=== PATIENT | female | born 1950 | race Caucasian/White ===

== ENCOUNTER 2016-07-25 07:44 | Emergency (ER) | payer OTHER ==
[~2016-07-25] VITALS: Ht 165.1 cm; Wt 65.0 kg
[~2016-07-25 07:44] MED LIST: CLR10 PO; DULO60CA44 PO; GLC/500 PO; LSN5 PO; NORT25CA PO; POLY335019 PO; PSYL55.43 PO; SIMV40TA4 PO; VSC/10 PO; ZNTT/150 PO
[2016-07-25 07:53] VITALS: TEMP 37.3; O2SAT 98; Ht 165.1 cm; Wt 65.0 kg
[2016-07-25 08:50] LABS: HEMATOCRIT 35.3 % (37-47); MEAN CELL VOLUME 86.5 fL (80-100); MEAN CORPUSCULAR HEMOGLOBIN 29.9 pg (25-34); MEAN CORPUSCULAR HGB CONC 34.6 g/dl (32-36); MEAN PLATELET VOLUME 10.4 fL (7.4-10.4); PLATELET COUNT 171 K/uL (130-400); RED BLOOD COUNT 4.08 M/uL (4.2-5.4); WHITE BLOOD COUNT 6.76 K/uL (4.8-10.8)
--- NOTE | 2016-07-25 08:52 | DIAGNOSTIC IMAGING REPORT ---
CHEST ONE VIEW PORTABLE HISTORY: Atypical chest pain. COMPARISON: Chest 04/09/2016. FINDINGS: The lungs are clear. Cardiac silhouette is normal in size. No pleural effusions. No pneumothorax. IMPRESSION: No acute process. Electronically signed by: Doe Harper M.D. 07/25/2016 8:50 AM Dictated Date/Time: 07/25/2016 8:48 AM
[2016-07-25 08:58] LABS: CALCIUM 8.6 mg/dl (8.5-10.1); CREATININE 0.75 mg/dl (0.60-1.20); POTASSIUM 3.5 mmol/L (3.5-5.1)
[2016-07-25 09:02] LABS: ALB/GLOB RATIO 1.4 (0.9-2); CKMB/CK RATIO 2.1 (0-3.0)
[2016-07-25 09:13] LABS: BASO % 0.1 %; BASO ABS # 0.01 K/uL (0-0.2); COMPLETE YES; IG% 0.1 %; LYMPH % 5.3 %; LYMPH ABS # 0.36 K/uL (1.2-3.4); MONO % 2.8 %; NEUT % 91.7 %
[2016-07-25] MEDS ORDERED: ONDANSETRON INJ 2 MG/ML 2 ML VIAL IV STA (09:51)
[2016-07-25] MEDS ORDERED: MoRPHine SULFATE 4 MG/ML 1 ML CARP\\VIAL IV STA (09:51)
[2016-07-25 10:19] VITALS: BP 119/64; PULSE 85
--- NOTE | 2016-07-25 10:24 | EMERGENCY ROOM VISIT NOTE ---
History First contact with patient: 08:00 Chief Complaint: CHEST PAIN Stated Complaint: CHEST PAIN Nursing Triage Summary: PT HERE VIA ALS FROM HOME WITH CHEST AND BACK PAINS AND HEADACHE SINCE LAST PM. PT STATES DID NOT FEEL WELL LAST PM. NO CARDIAC HX DENIES SOB History of Present Illness The patient is a 65 year old female who presents to the Emergency Department via EMS for evaluation of her headache and transient episode of chest pain. The patient reports 7 history of migraines headaches. Yesterday afternoon she developed a frontal headache with associated lightheadedness. She reports that this is typical of her previous headaches. She had a transient episode of pain across her chest which lasted for a few seconds. She is had no return of symptoms to this point. Patient primarily complains of symptoms of headache which prompted her to contact EMS. The patient rates her current discomfort as an 8/10. She currently denies any blurry vision, double vision, slurred speech , facial droop, unilateral weakness/numbness, chest pain, palpitations, shortness of breath, pleuritic pain, nausea, vomiting, or abdominal pain. Review of Systems A complete 10-point Review of Systems was discussed with the patient, with pertinent positives and negatives listed in the History of Present Illness. All remaining Review of Systems questions can be considered negative unless otherwise specified. Past Medical/Surgical History Medical Problems: (1) Anxiety (2) Blurred vision (3) bunion surgery (4) DM2 (diabetes mellitus, type 2) (5) HLD (hyperlipidemia) (6) Hypothyroidism (7) Schizophrenia (8) Somatization disorder (9) Urinary incontinence Surgical Problems: (1) H/O brain surgery (2) H/O cystoscopy (3) H/O foot surgery (4) History of cataract surgery Family History Cancer Diabetes mellitus Heart disease Seizures Social History Smoking Status: Never Smoker Alcohol Use: none Drug Use: none Marital Status: single Housing Status: lives alone Occupation Status: retired Current/Historical Medications Scheduled Clozapine (Clozapine), 300 MG PO HS Clozapine (Clozapine), 50 MG PO QAM Duloxetine Hcl (Cymbalta), 60 MG PO DAILY Fluticasone Propionate (Nasal) (Flonase Allergy Relief), 2 SPRAYS DONI DAILY Levothyroxine Sodium (Levothyroxine Sodium), 50 MCG PO QAM Lisinopril (Lisinopril), 1 TAB PO DAILY Loratadine (Claritin), 10 MG PO HS Metformin Hcl (Glucophage), 500 MG PO BIDM Nortriptyline (Pamelor), 25 MG PO HS Omeprazole (Prilosec), 40 MG PO HS Ranitidine (Zantac), 150 MG PO BID Simvastatin (Zocor), 40 MG PO HS Solifenacin Succinate (Vesicare), 1 TAB PO DAILY Scheduled PRN Cyclobenzaprine Hcl (Flexeril), 10 MG PO BID PRN for Muscle Spasm Lorazepam (Ativan), 0.5 MG PO DAILY PRN for Anxiety Meclizine Hcl (Meclizine Hcl), 25 MG PO TID PRN for Dizziness or Vertigo Polyethylene Glycol 3350 (Miralax), 17 GM PO DAILY PRN for Constipation Promethazine Hcl (Phenergan), 12.5 MG PO Q8 PRN for Nausea Sennosides-Docusate Sodium (Senna Plus), 1-2 TABS PO DAILY PRN for Constipation Sumatriptan Succinate (Imitrex), 100 MG PO UD PRN for Headache Miscellaneous Medications Psyllium (Psyldex) Allergies Coded Allergies: Cephalosporins (Verified Allergy, Unknown, 07/25/16) POLLEN (Unverified Allergy, Unknown, seasonal allergy , 07/25/16) Physical Exam Vital Signs Date Time Temp Pulse Resp B/P Pulse Ox O2 Delivery O2 Flow Rate FiO2 07/25/16 10:19 85 16 119/64 07/25/16 09:01 90 16 131/71 07/25/16 07:53 37.3 84 16 110/67 98 Room Air 07/25/16 07:50 84 Pain Rating (0-10): 8 Physical Exam VITAL SIGNS - Vital signs and nursing notes were reviewed. GENERAL - 65-year-old female appearing her stated age who is in no acute distress. Communicates well with provider and answers questions appropriately. HEAD - Normocephalic, Atraumatic. No Kumar's Sign or Raccoon's Eyes. No depressed skull fractures palpable. EYES - PERRL with EOMI bilaterally. Sclera anicteric. Palpebral conjunctiva pink and moist with no injection noted. EARS - No deformities of external structures noted on gross examination bilaterally. No pain elicited with palpation of the tragus bilaterally. External auditory canals without discharge or otorrhea. Tympanic membranes pearly roman without retraction or bulging. NOSE - Midline and without cyanosis. No epistaxis or purulent drainage noted. Septum midline without deviation or septal hematoma noted. MOUTH/OROPHARYNX - Without perioral cyanosis. Buccal mucosa pink and moist and without leukoplakia. Tongue midline with equal elevation of palate bilaterally. No tonsillar hypertrophy, erythema, or exudates noted. NECK - Neck with FROM. Supple to palpation. No lymphadenopathy noted. No nuchal rigidity. LUNGS - Chest wall symmetric without accessory muscle use, intercostals retractions, or central cyanosis. Normal vesicular breath sounds CTA B/L. No wheezes, rales, or rhonchi appreciated. CARDIAC - RRR with S1/S2. No murmur, rubs, or gallops appreciated. ABDOMEN - Abdominal contour flat and without pulsations or visible masses. BS normoactive all four quadrants. No tenderness, palpable masses, hepatosplenomegaly, or ascites noted. EXTREMITIES - No pretibial edema present. +3/5 radial and dorsalis pedis pulses palpated throughout. FROM with no tremors, fasciculations, or clonus noted on PROM throughout. +5/5 strength noted in UE/LE bilaterally. NEUROLOGIC - Cranial nerves II through XII grossly intact. Sensory intact to light touch throughout. Patellar reflexes +2/4. Patient able to perform rapid alternating movements appropriately. Negative Pronator Drift. PSYCH - A&Ox3 and cooperates fully with examiner. Pt is very pleasant and interacts well with examiner. Medical Decision & Procedures ER Provider Diagnostic Interpretation: Radiological imaging and reports were reviewed by myself. Radiologist's Interpretation as follows: CHEST ONE VIEW PORTABLE HISTORY: Atypical chest pain. COMPARISON: Chest 04/09/2016. FINDINGS: The lungs are clear. Cardiac silhouette is normal in size. No pleural effusions. No pneumothorax. IMPRESSION: No acute process. Laboratory Results 07/25/16 07:50 Red Blood Count 4.08, Mean Corpuscular Volume 86.5, Mean Corpuscular Hemoglobin 29.9, Mean Corpuscular Hemoglobin Concent 34.6, Mean Platelet Volume 10.4, Neutrophils (%) (Auto) 91.7, Lymphocytes (%) (Auto) 5.3, Monocytes (%) (Auto) 2.8, Eosinophils (%) (Auto) 0.0, Basophils (%) (Auto) 0.1, Neutrophils # (Auto) 6.19, Lymphocytes # (Auto) 0.36, Monocytes # (Auto) 0.19, Eosinophils # (Auto) 0.00, Basophils # (Auto) 0.01 07/25/16 07:50 Test 07/25/16 07:50 07/25/16 09:58 White Blood Count 6.76 K/uL (4.8-10.8) Red Blood Count 4.08 M/uL (4.2-5.4) Hemoglobin 12.2 g/dL (12.0-16.0) Hematocrit 35.3 % (37-47) Mean Corpuscular Volume 86.5 fL (80-100) Mean Corpuscular Hemoglobin 29.9 pg (25-34) Mean Corpuscular Hemoglobin Concent 34.6 g/dl (32-36) Platelet Count 171 K/uL (130-400) Mean Platelet Volume 10.4 fL (7.4-10.4) Neutrophils (%) (Auto) 91.7 % Lymphocytes (%) (Auto) 5.3 % Monocytes (%) (Auto) 2.8 % Eosinophils (%) (Auto) 0.0 % Basophils (%) (Auto) 0.1 % Neutrophils # (Auto) 6.19 K/uL (1.4-6.5) Lymphocytes # (Auto) 0.36 K/uL (1.2-3.4) Monocytes # (Auto) 0.19 K/uL (0.11-0.59) Eosinophils # (Auto) 0.00 K/uL (0-0.5) Basophils # (Auto) 0.01 K/uL (0-0.2) RDW Standard Deviation 44.4 fL (36.4-46.3) RDW Coefficient of Variation 14.1 % (11.5-14.5) Immature Granulocyte % (Auto) 0.1 % Immature Granulocyte # (Auto) 0.01 K/uL (0.00-0.02) Anion Gap 15.0 mmol/L (3-11) Est Creatinine Clear Calc Drug Dose 66.4 ml/min Estimated GFR () 96.3 Estimated GFR (Non- 83.1 BUN/Creatinine Ratio 34.0 (10-20) Calcium Level 8.6 mg/dl (8.5-10.1) Total Bilirubin 0.5 mg/dl (0.2-1) Aspartate Amino Transf (AST/SGOT) 14 U/L (15-37) Alanine Aminotransferase (ALT/SGPT) 19 U/L (12-78) Alkaline Phosphatase 67 U/L (45-117) Total Creatine Kinase 56 U/L (26-192) Creatine Kinase MB 1.2 ng/ml (0.5-3.6) Creatine Kinase MB Ratio 2.1 (0-3.0) Total Protein 6.1 gm/dl (6.4-8.2) Albumin 3.6 gm/dl (3.4-5.0) Globulin 2.5 gm/dl (2.5-4.0) Albumin/Globulin Ratio 1.4 (0.9-2) Bedside Troponin I 0.000 ng/ml (0-0.045) Medications Administered Medications (Trade) Dose Ordered Sig/Artemio Route Start Time Stop Time Status Last Admin Dose Admin Morphine Sulfate (MoRPHine SULFATE INJ) 4 mg NOW STAT IV 07/25/16 09:51 07/25/16 09:53 DC 07/25/16 10:26 4 MG Ondansetron HCl (Zofran Inj) 4 mg NOW STAT IV 07/25/16 09:51 07/25/16 09:53 DC 07/25/16 10:26 4 MG Procedure Patient was placed on the air sampling and monitoring and monitored throughout the entire extent of their stay. In addition, the patient's pulse oximetry was monitored throughout the entire stay. Any abnormalities or aberrancies were addressed appropriately. ECG Indication: chest pain Rate (beats per minute): 83 Rhythm: normal sinus Findings: nonspecific-ST abn (Anterolateral) Change: no significant change (from 04/09/2016.) ED Course Patient was seen and evaluated by myself. Previous emergency department visit notes were reviewed. Labs were drawn, saline lock in place. EKG and chest x- ray were obtained. Laboratory results demonstrate no acute leukocytosis, worrisome anemia, or bandemia. The patient has no significant electrolyte abnormalities. Cardiac enzymes are negative. Troponin was negative. Patient was reevaluated and continues to complain of headache. She denies any chest pain and has had no chest pain for greater than 24 hours at this point. She does admit to having a history of chest pain similarly in the past and has been evaluated. Patient was treated with 4 mg morphine and formerly grams Zofran intravenously. Second troponin was obtained and found to be unremarkable. Laboratory results and imaging studies were discussed with the patient who acknowledges understanding. She was encouraged to continue to follow with her primary care provider from today's visit. She was educated on worrisome symptoms for return visit to the emergency department. Patient discharged home afebrile and in good condition. Medical Decision Given the patient's presentation and stated complete, I did elect to perform the above-mentioned workup. I'm very familiar with this patient for multiple previous visits in the past. Patient is nontoxic-appearing. She does complain a transient episode of pain in her chest which has completely resolved. Her pain is not exertional. Her main complaint is headache at this point. X-ray of her chest, EKG, and cardiac enzymes 2 are negative. Patient responded well to intravenous morphine and Zofran for her ongoing headache issues. The patient with follow-up with her primary care provider in specialists from today' s visit. She will return for any changing or worsening symptoms. Patient discharged home in good condition. In the evaluation and treatment of this patient, the following differential diagnoses were considered: Migraine Headache, Intracranial Hemorrhage, Subdural Hematoma, Subarachnoid Hemorrhage, Cerebral Aneurysm, Temporal/Giant Cell Arteritis, Tension Headache, Meningitis, Encephalitis, or Hydrocephalus, WI, ASC , Dysrhythmia, Angina, Mediastinitis, GERD, Esophagitis, PE, Pneumonia, Bronchitis, Costochondritis, Rib Fracture, Zoster. Impression Primary Impression: Headache Additional Impression: Chest pain Departure Information Dispostion Home / Self-Care Condition GOOD Referrals Raymond Vann, D.O. (PCP) Patient Instructions My [facility] Additional Instructions You've been seen in the emergency department today for your headache and transient chest pain. Follow-up with your primary care from today's visit. Return for any changing or worsening symptoms. Problem Qualifiers Primary Impression: Headache Headache type: unspecified Headache chronicity pattern: unspecified pattern Intractability: not intractable Qualified Codes: R51 - Headache Additional Impression: Chest pain Chest pain type: unspecified Qualified Codes: R07.9 - Chest pain, unspecified
[2016-10-09] MEDS ORDERED: SUMA100T16 PO (16:26)
[2016-12-16] MEDS ORDERED: FLNIN/ NAE (16:34)
[2016-12-16] MEDS ORDERED: ACET-1256 PO (16:37)
[2016-12-18] MEDS ORDERED: [UNRECOGNIZED DRUG - CODE] PO (08:03)
[2016-12-18] MEDS ORDERED: LORA-741 PO (14:47)
[2016-12-18] MEDS ORDERED: MXL10 PO (18:38)
== END 2016-07-25 10:50 | disposition home or self-care (01) ==
LOC: EDBD 07:44 → C.EDA 07:46
DX: R51 Headache (principal); R07.9 Chest pain, unspecified; F41.9 Anxiety disorder, unspecified; E11.9 Type 2 diabetes mellitus without complications; E78.5 Hyperlipidemia, unspecified; E03.9 Hypothyroidism, unspecified; F20.9 Schizophrenia, unspecified; Z82.49 Family history of ischemic heart disease and other diseases of the circulatory system

== ENCOUNTER 2016-08-05 15:37 | Emergency (ER) | payer OTHER ==
[~2016-08-05] VITALS: Ht 160 cm; Wt 65.0 kg
[~2016-08-05 15:37] MED LIST changes: -PSYL55.43 PO
[2016-08-05 15:40] VITALS: TEMP 36.9; O2SAT 100; Ht 160 cm; Wt 65.0 kg
[2016-08-05] MEDS ORDERED: SODIUM CHLORIDE 0.9% 1000ML 1,000 ML IV STA (15:46)
[2016-08-05] MEDS ORDERED: MoRPHine SULFATE 4 MG/ML 1 ML CARP\\VIAL IV STA ×2 (15:55→17:53)
[2016-08-05 15:59] LABS: HEMATOCRIT 33.4 % (37-47); MEAN CELL VOLUME 88.4 fL (80-100); MEAN CORPUSCULAR HEMOGLOBIN 28.8 pg (25-34); MEAN CORPUSCULAR HGB CONC 32.6 g/dl (32-36); MEAN PLATELET VOLUME 10.4 fL (7.4-10.4); PLATELET COUNT 208 K/uL (130-400); RED BLOOD COUNT 3.78 M/uL (4.2-5.4); WHITE BLOOD COUNT 5.49 K/uL (4.8-10.8)
[2016-08-05] MEDS ORDERED: ONDANSETRON 4MG OD TAB PO ONE (16:00)
--- NOTE | 2016-08-05 16:00 | EMERGENCY ROOM VISIT NOTE ---
History First contact with patient: 15:41 Chief Complaint: CHEST PAIN Stated Complaint: CHEST PAIN Nursing Triage Summary: Pt called EMS because she took Flexeril earlier and then Ativan an hour later. Pt has history of anxiety and took Ativan when she became anxious about cooking. Pt was nervous about taking both medications. Pt developed substernal chest pain for EMS. Denies any other symptoms. Pt now c/o back and shoulder pain bilaterally History of Present Illness The patient is a 65 year old female who presents to the Emergency Room with complaints of chest pain and anxiety. The patient states that she was cooking dinner and felt a tightness in the upper back and the chest. She states she is prescribed Flexeril for this. She took a Flexeril. She began to make dinner and felt very anxious. She then took an Ativan. She stated that she became increasingly anxious as she thought about taking the medications so close together. The patient contacted EMS regarding the anxiety and when they arrived she developed retrosternal chest pain. The patient was given 324 mg aspirin and one nitroglycerin spray with no improvement in her chest pain. She does complain of a headache now. She denies any fever or chills. She denies any earache, sore throat or cough. She takes she has occasional trouble breathing and pain with deep inspiration. She denies any abdominal pain, nausea or vomiting. She denies any extremity swelling or pain. She denies any history of coronary artery disease. She has never had a stress test. Review of Systems A 10 system review of systems was completed with positives and pertinent negatives listed in the HPI. Past Medical/Surgical History Medical Problems: (1) Anxiety (2) Blurred vision (3) bunion surgery (4) DM2 (diabetes mellitus, type 2) (5) HLD (hyperlipidemia) (6) Hypothyroidism (7) Schizophrenia (8) Somatization disorder (9) Urinary incontinence Surgical Problems: (1) H/O brain surgery (2) H/O cystoscopy (3) H/O foot surgery (4) History of cataract surgery Family History Cancer Diabetes mellitus Heart disease Seizures Social History Smoking Status: Never Smoker Alcohol Use: none Drug Use: none Marital Status: single Housing Status: lives alone Occupation Status: retired Current/Historical Medications Scheduled Clozapine (Clozapine), 300 MG PO HS Clozapine (Clozapine), 50 MG PO QAM Duloxetine Hcl (Cymbalta), 60 MG PO DAILY Fluticasone Propionate (Nasal) (Flonase Allergy Relief), 2 SPRAYS DONI DAILY Levothyroxine Sodium (Levothyroxine Sodium), 50 MCG PO QAM Lisinopril (Lisinopril), 1 TAB PO DAILY Loratadine (Claritin), 10 MG PO HS Metformin Hcl (Glucophage), 500 MG PO BIDM Nortriptyline (Pamelor), 25 MG PO HS Omeprazole (Prilosec), 40 MG PO HS Ranitidine (Zantac), 150 MG PO BID Simvastatin (Zocor), 40 MG PO HS Solifenacin Succinate (Vesicare), 1 TAB PO DAILY Scheduled PRN Acetaminophen Tab (Tylenol), 325 MG PO BID PRN for Pain Cyclobenzaprine Hcl (Flexeril), 10 MG PO BID PRN for Muscle Spasm Lorazepam (Ativan), 0.5 MG PO DAILY PRN for Anxiety Meclizine Hcl (Meclizine Hcl), 25 MG PO TID PRN for Dizziness or Vertigo Polyethylene Glycol 3350 (Miralax), 17 GM PO DAILY PRN for Constipation Promethazine Hcl (Phenergan), 12.5 MG PO Q8 PRN for Nausea Sennosides-Docusate Sodium (Senna Plus), 1-2 TABS PO DAILY PRN for Constipation Sumatriptan Succinate (Imitrex), 100 MG PO UD PRN for Headache Miscellaneous Medications Psyllium (Psyldex) Allergies Coded Allergies: Cephalosporins (Verified Allergy, Unknown, 08/05/16) POLLEN (Unverified Allergy, Unknown, seasonal allergy , 08/05/16) Physical Exam Vital Signs Date Time Temp Pulse Resp B/P Pulse Ox O2 Delivery O2 Flow Rate FiO2 08/05/16 18:17 72 18 140/85 99 Room Air 08/05/16 17:22 75 16 150/81 100 Room Air 08/05/16 15:44 84 08/05/16 15:40 100 Room Air 08/05/16 15:40 100 Room Air 08/05/16 15:40 36.9 83 16 137/69 100 Room Air Physical Exam VITALS: Vitals are noted on the nurse's note and reviewed by myself. Vital signs stable. The patient is afebrile. She is not tachycardic or tachypneic. Her oxygen saturation is 100% on room air. GENERAL: This is a 65-year-old female, in no acute distress, nondiaphoretic, well-developed well-nourished. SKIN: The skin was without rashes, erythema, edema, or bruising. There is no tenting of the skin. Capillary reflex less than 2 seconds. HEAD: Normocephalic atraumatic. EARS: External ears are normal in appearance. EYES: Pupils equal round and reactive to light and accommodation. Conjunctivae without injection, sclerae without icterus. Extraocular movements intact. NOSE: Patent, turbinates without inflammation or discharge. MOUTH: Mucous membranes moist. Tonsils are not enlarged. Pharynx without erythema or exudate. Uvula midline. Airway patent. Tongue does not deviate. NECK: Supple without nuchal rigidity. Cervical spine is tender. No JVD. HEART: Regular rate and rhythm without murmurs gallops or rubs. LUNGS: Clear to auscultation bilaterally without wheezes, rales or rhonchi. No retractions or accessory muscle use. ABDOMEN: Positive bowel sounds x 4. Soft, nontender, without masses or organomegaly. Hassan sign negative. MUSCULOSKELETAL: No muscle atrophy, erythema, or edema noted. Full range of motion in all extremities. Strength 5/5 throughout. NEURO: Patient was alert and oriented to person place and time. o focal neurological deficits. Medical Decision & Procedures ER Provider Diagnostic Interpretation: CHEST ONE VIEW PORTABLE CLINICAL HISTORY: chest pain dyspnea COMPARISON STUDY: 07/25/2016 FINDINGS: The bones soft tissues and hemidiaphragms are normal. The cardiomediastinal silhouette is normal. The lungs are clear. The pulmonary vasculature is normal. IMPRESSION: Negative chest. Laboratory Results 08/05/16 15:28 Red Blood Count 3.78, Mean Corpuscular Volume 88.4, Mean Corpuscular Hemoglobin 28.8, Mean Corpuscular Hemoglobin Concent 32.6, Mean Platelet Volume 10.4, Neutrophils (%) (Auto) 62.0, Lymphocytes (%) (Auto) 28.8, Monocytes (%) (Auto) 8.6, Eosinophils (%) (Auto) 0.0, Basophils (%) (Auto) 0.4, Neutrophils # (Auto) 3.41, Lymphocytes # (Auto) 1.58, Monocytes # (Auto) 0.47, Eosinophils # (Auto) 0.00, Basophils # (Auto) 0.02 08/05/16 15:28 Test 08/05/16 15:28 08/05/16 17:20 White Blood Count 5.49 K/uL (4.8-10.8) Red Blood Count 3.78 M/uL (4.2-5.4) Hemoglobin 10.9 g/dL (12.0-16.0) Hematocrit 33.4 % (37-47) Mean Corpuscular Volume 88.4 fL (80-100) Mean Corpuscular Hemoglobin 28.8 pg (25-34) Mean Corpuscular Hemoglobin Concent 32.6 g/dl (32-36) Platelet Count 208 K/uL (130-400) Mean Platelet Volume 10.4 fL (7.4-10.4) Neutrophils (%) (Auto) 62.0 % Lymphocytes (%) (Auto) 28.8 % Monocytes (%) (Auto) 8.6 % Eosinophils (%) (Auto) 0.0 % Basophils (%) (Auto) 0.4 % Neutrophils # (Auto) 3.41 K/uL (1.4-6.5) Lymphocytes # (Auto) 1.58 K/uL (1.2-3.4) Monocytes # (Auto) 0.47 K/uL (0.11-0.59) Eosinophils # (Auto) 0.00 K/uL (0-0.5) Basophils # (Auto) 0.02 K/uL (0-0.2) RDW Standard Deviation 45.2 fL (36.4-46.3) RDW Coefficient of Variation 13.9 % (11.5-14.5) Immature Granulocyte % (Auto) 0.2 % Immature Granulocyte # (Auto) 0.01 K/uL (0.00-0.02) Prothrombin Time 10.8 SECONDS (9.0-12.0) Prothromb Time International Ratio 1.0 (0.9-1.1) Activated Partial Thromboplast Time 25.4 SECONDS (21.0-31.0) Partial Thromboplastin Ratio 1.0 D-Dimer 460 ug/L FEU (0-500) Anion Gap 10.0 mmol/L (3-11) Est Creatinine Clear Calc Drug Dose 45.6 ml/min Estimated GFR () 60.6 Estimated GFR (Non- 52.3 BUN/Creatinine Ratio 17.5 (10-20) Calcium Level 8.3 mg/dl (8.5-10.1) Total Bilirubin 0.3 mg/dl (0.2-1) Aspartate Amino Transf (AST/SGOT) 15 U/L (15-37) Alanine Aminotransferase (ALT/SGPT) 26 U/L (12-78) Alkaline Phosphatase 72 U/L (45-117) Troponin I < 0.015 ng/ml (0-0.045) Total Protein 6.6 gm/dl (6.4-8.2) Albumin 3.8 gm/dl (3.4-5.0) Globulin 2.8 gm/dl (2.5-4.0) Albumin/Globulin Ratio 1.4 (0.9-2) Urine Color DK YELLOW Urine Appearance CLOUDY (CLEAR) Urine pH 6.0 (4.5-7.5) Urine Specific [place] 1.023 (1.000-1.030) Urine Protein NEG (NEG) Urine Glucose (UA) NEG (NEG) Urine Ketones TRACE (NEG) Urine Occult Blood NEG (NEG) Urine Nitrite NEG (NEG) Urine Bilirubin NEG (NEG) Urine Urobilinogen NEG (NEG) Urine Leukocyte Esterase MODERATE (NEG) Urine WBC (Auto) >30 /hpf (0-5) Urine RBC (Auto) 5-10 /hpf (0-4) Urine Hyaline Casts (Auto) >30 /lpf (0-5) Urine Epithelial Cells (Auto) 10-20 /lpf (0-5) Urine Bacteria (Auto) NEG (NEG) Medications Administered Medications (Trade) Dose Ordered Sig/Artemio Route Start Time Stop Time Status Last Admin Dose Admin Sodium Chloride (Nss 1000ml) 1,000 ml @ 125 mls/hr Q8H STAT IV 08/05/16 15:46 08/05/16 18:37 DC 08/05/16 16:01 125 MLS/HR Morphine Sulfate (MoRPHine SULFATE INJ) 4 mg NOW STAT IV 08/05/16 15:55 08/05/16 15:57 DC 08/05/16 16:01 4 MG Ondansetron HCl (Zofran Odt) 4 mg ONE ONCE PO 08/05/16 16:00 08/05/16 16:01 DC 08/05/16 16:01 4 MG Morphine Sulfate (MoRPHine SULFATE INJ) 4 mg NOW STAT IV 08/05/16 17:53 08/05/16 17:54 DC 08/05/16 18:04 4 MG Procedure The patient was monitored on a door liner helper. They maintained a normal sinus rhythm with occasional PVCs ECG Indication: chest pain Rate (beats per minute): 85 Rhythm: normal sinus (I) Findings: PVC Change: no significant change ED Course The patient was seen and examined. Previous visits were reviewed. The patient does not have a fever or leukocytosis. She does not have any significant electrolyte abnormalities. Troponin was not elevated. INR was 1.0. D-dimer was not elevated. Urinalysis may represent urinary tract infection but the patient does not have any symptoms. We'll await urine culture. EKG does not reveal any acute arrhythmia or ischemia The patient was given a total of 8 mg IV morphine and 4 mg oral Zofran according to her treatment protocol The patient is well-known to the emergency department. She presented to the emergency department primarily for anxiety. She developed chest pain when EMS arrived. The patient's symptoms were completely resolved after the above treatment. There is no obvious abnormality on the above workup. The patient was encouraged to contact her family doctor first thing Sunday morning for a follow-up appointment. She should return with any worsening symptoms. The patient was also seen and examined by who agrees with the assessment and treatment plan. Medical Decision DIFFERENTIAL DIAGNOSIS: Aortic dissection, myocarditis, pericarditis, cervical disc disease, costochondritis, herpes zoster, rib fracture, pleuritis, pneumonia , pulmonary embolus, tension pneumothorax, anxiety disorder, somatoform disorder , choledocholithiasis, status, esophagitis, esophageal spasm, esophageal reflux , esophageal rupture, pancreatitis, peptic ulcer disease, cardiac ischemia, ST elevation [place], acute coronary syndrome, arrhythmia, coronary artery vasospasm. vavular heart disease, coronary artery disease, among others. Impression Primary Impression: Precordial chest pain Additional Impression: Anxiety Departure Information Dispostion Home / Self-Care Condition GOOD Referrals Raymond Vann, D.O. (PCP) Patient Instructions My [facility] Additional Instructions Contact your family doctor on Sunday to schedule a follow up appointment Return with worsening symptoms Problem Qualifiers
--- NOTE | 2016-08-05 16:07 | DIAGNOSTIC IMAGING REPORT ---
CHEST ONE VIEW PORTABLE CLINICAL HISTORY: chest pain dyspnea COMPARISON STUDY: 07/25/2016 FINDINGS: The bones soft tissues and hemidiaphragms are normal. The cardiomediastinal silhouette is normal. The lungs are clear. The pulmonary vasculature is normal. IMPRESSION: Negative chest. Electronically signed by: Riley Casey M.D. 08/05/2016 4:06 PM Dictated Date/Time: 08/05/2016 4:06 PM
[2016-08-05 16:11] LABS: PROTHROMBIN TIME (PATIENT) 10.8 SECONDS (9.0-12.0)
[2016-08-05 16:17] LABS: ALT/SGPT 26 U/L (12-78); BLOOD UREA NITROGEN 19 mg/dl (7-18); BUN/CREATININE RATIO 17.5 (10-20); CALCIUM 8.3 mg/dl (8.5-10.1); CARBON DIOXIDE 25 mmol/L (21-32); CHLORIDE 107 mmol/L (98-107); GLUCOSE 87 mg/dl (70-99); POTASSIUM 4.3 mmol/L (3.5-5.1); SODIUM 142 mmol/L (136-145)
[2016-08-05] MEDS ORDERED: ACET325T96 PO (16:19)
[2016-08-05 16:22] LABS: ALB/GLOB RATIO 1.4 (0.9-2); ALKALINE PHOSPHATASE 72 U/L (45-117); AST/SGOT 15 U/L (15-37)
[2016-08-05 16:40] LABS: BASO % 0.4 %; BASO ABS # 0.02 K/uL (0-0.2); COMPLETE YES; IG% 0.2 %; LYMPH % 28.8 %; LYMPH ABS # 1.58 K/uL (1.2-3.4); MONO % 8.6 %
[2016-08-05 17:43] LABS: URINE APPEARANCE CLOUDY (CLEAR); URINE BILIRUBIN NEG (NEG); URINE COLOR DK YELLOW; URINE NITRITE NEG (NEG); URINE SPECIFIC GRAVITY 1.023 (1.000-1.030); UROBILINOGEN NEG (NEG); ZZUR CULT IF INDIC CLEAN CATCH YES
[2016-08-05 17:44] LABS: MANUAL MICROSCOPIC REQUIRED? NO; REVIEW REQ? YES
--- NOTE | 2016-08-05 17:52 | EMERGENCY ROOM VISIT NOTE ---
ED Visit Note First contact with patient: 15:41 This Patient was discussed with the physician Supply Assistant, Kim Andersen PA-C. The pertinent historical and physical exam findings were confirmed. I agree with the studies ordered and with the interpretations of these studies. I agree with the disposition and care plan.
[2016-08-05 18:17] VITALS: BP 140/85; PULSE 72; O2SAT 99
[2016-10-09] MEDS ORDERED: SUMA100T16 PO (16:26)
[2016-12-16] MEDS ORDERED: FLNIN/ NAE (16:34)
[2016-12-16] MEDS ORDERED: ACET-1256 PO (16:37)
[2016-12-18] MEDS ORDERED: [UNRECOGNIZED DRUG - CODE] PO (08:03)
[2016-12-18] MEDS ORDERED: LORA-741 PO (14:47)
[2016-12-18] MEDS ORDERED: MXL10 PO (18:38)
== END 2016-08-05 18:27 | disposition home or self-care (01) ==
LOC: EDBD 15:37 → C.EDA 15:38
DX: R07.2 Precordial pain (principal); F41.9 Anxiety disorder, unspecified; E11.9 Type 2 diabetes mellitus without complications; E78.5 Hyperlipidemia, unspecified; E03.9 Hypothyroidism, unspecified; Z79.899 Other long term (current) drug therapy

== ENCOUNTER 2016-08-10 18:17 | Emergency (ER) | payer OTHER ==
[~2016-08-10] VITALS: Ht 165.1 cm; Wt 62.6 kg
[~2016-08-10 18:17] MED LIST changes: +ACET325T96 PO
[2016-08-10 18:21] VITALS: TEMP 36.7; Ht 165.1 cm; Wt 62.6 kg
[2016-08-10] MEDS ORDERED: MCRB100HP PO (18:26)
[2016-08-10] MEDS ORDERED: MoRPHine SULFATE 10 MG/ML CARP/VIAL IM STA ×2 (18:30→19:43)
[2016-08-10] MEDS ORDERED: ONDANSETRON 4MG OD TAB PO ONE (18:30)
--- NOTE | 2016-08-10 19:11 | EMERGENCY ROOM VISIT NOTE ---
ED Visit Note First contact with patient: 18:23 This Patient was discussed with the physician assistant vice president, Arely Casey PA-C. The pertinent historical and physical exam findings were confirmed. I agree with the studies ordered and with the interpretations of these studies. I agree with the disposition and care plan.
--- NOTE | 2016-08-10 20:38 | EMERGENCY ROOM VISIT NOTE ---
History First contact with patient: 18:23 Chief Complaint: HEADACHE Stated Complaint: WEAKNESS, DIZZY, NECK PAIN History of Present Illness The patient is a 65 year old female who presents to the Emergency Room with complaints of migraine headache which started at approximately 3 PM. The patient states that she has pain in the back of her head which is typical for her migraines. She states she took an Imitrex at 316 and then a second Imitrex at 516 without any relief of her headache. The patient now feels nauseated but has not vomited. She also feels dizzy which is typical for her migraines. The patient denies any visual changes. This is not the worst headache of her life. Review of Systems 6 system review was performed and was negative unless stated otherwise in history of present illness. Past Medical/Surgical History Medical Problems: (1) Anxiety (2) Blurred vision (3) bunion surgery (4) DM2 (diabetes mellitus, type 2) (5) HLD (hyperlipidemia) (6) Hypothyroidism (7) Schizophrenia (8) Somatization disorder (9) Urinary incontinence Surgical Problems: (1) H/O brain surgery (2) H/O cystoscopy (3) H/O foot surgery (4) History of cataract surgery Family History Cancer Diabetes mellitus Heart disease Seizures Social History Smoking Status: Never Smoker Alcohol Use: none Drug Use: none Marital Status: single Housing Status: lives alone Occupation Status: retired Current/Historical Medications Scheduled Clozapine (Clozapine), 300 MG PO HS Clozapine (Clozapine), 50 MG PO QAM Duloxetine Hcl (Cymbalta), 60 MG PO DAILY Fluticasone Propionate (Nasal) (Flonase Allergy Relief), 2 SPRAYS DONI DAILY Levothyroxine Sodium (Levothyroxine Sodium), 50 MCG PO QAM Lisinopril (Lisinopril), 1 TAB PO DAILY Loratadine (Claritin), 10 MG PO HS Metformin Hcl (Glucophage), 500 MG PO BIDM Nitrofurantoin (Nitrofurantoin Monohydrat), 1 TAB PO BID Nortriptyline (Pamelor), 25 MG PO HS Omeprazole (Prilosec), 40 MG PO HS Ranitidine (Zantac), 150 MG PO BID Simvastatin (Zocor), 40 MG PO HS Solifenacin Succinate (Vesicare), 1 TAB PO DAILY Scheduled PRN Acetaminophen Tab (Tylenol), 325 MG PO BID PRN for Pain Cyclobenzaprine Hcl (Flexeril), 10 MG PO BID PRN for Muscle Spasm Lorazepam (Ativan), 0.5 MG PO DAILY PRN for Anxiety Meclizine Hcl (Meclizine Hcl), 25 MG PO TID PRN for Dizziness or Vertigo Polyethylene Glycol 3350 (Miralax), 17 GM PO DAILY PRN for Constipation Promethazine Hcl (Phenergan), 12.5 MG PO Q8 PRN for Nausea Sennosides-Docusate Sodium (Senna Plus), 1-2 TABS PO DAILY PRN for Constipation Sumatriptan Succinate (Imitrex), 100 MG PO UD PRN for Headache Miscellaneous Medications Psyllium (Psyldex) Allergies Coded Allergies: Cephalosporins (Verified Allergy, Unknown, 08/10/16) POLLEN (Unverified Allergy, Unknown, seasonal allergy , 08/10/16) Physical Exam Vital Signs Date Time Temp Pulse Resp B/P Pulse Ox O2 Delivery O2 Flow Rate FiO2 08/10/16 20:30 68 18 170/84 99 Room Air 08/10/16 19:40 191/105 08/10/16 19:23 181/116 08/10/16 19:06 178/107 08/10/16 19:04 74 20 199/99 99 Room Air 08/10/16 18:21 36.7 76 20 188/109 100 Room Air Physical Exam GENERAL: 65-year-old white female appears in no acute distress MENTAL STATUS: Patient is alert and oriented x3 EYES: PERRLA. EOMs intact. EARS: Canals clear. TMs without fluid level noted. NECK: Supple, no lymphadenopathy noted. No carotid bruits noted. LUNGS: Clear auscultation without wheezes rales or rhonchi. CARDIAC: Regular rate and rhythm without murmur. Pulses is full and equal throughout. NEURO:Cranial nerves two through 12 intact. Cerebellar function intact with [id number]. Fine motor intact with alternating finger motions. Medical Decision & Procedures Medications Administered Medications (Trade) Dose Ordered Sig/Artemio Route Start Time Stop Time Status Last Admin Dose Admin Ondansetron HCl (Zofran Odt) 4 mg ONE ONCE PO 08/10/16 18:30 08/10/16 18:32 DC 08/10/16 19:01 4 MG Morphine Sulfate (MoRPHine SULFATE INJ) 8 mg NOW STAT IM 08/10/16 18:30 08/10/16 18:32 DC 08/10/16 19:02 8 MG Morphine Sulfate (MoRPHine SULFATE INJ) 6 mg NOW STAT IM 08/10/16 19:43 08/10/16 19:44 DC 08/10/16 19:50 6 MG ED Course The patient was evaluated. The patient is on a 2 injection per month treatment plan for her migraine headaches. The patient was given her normal regimen of morphine 8 mg IM and Zofran 4 mg ODT. The patient was independently evaluated by Dr. Dodson who agrees with treatment plan. The patient was reevaluated. Her blood pressure remained elevated after receiving the morphine. She stated she still had a headache irradiated adequate and 8 out of 10. She was given additional 6 mg of morphine IM. The patient was reevaluated was feeling better. Her blood pressure was now 174/85. The patient was discharged home in stable condition. Medical Decision Differential includes: Acute intracranial bleed, trauma, meningitis, encephalitis, increased intracranial pressure, mass or mass effect, facial or dental infection, temporal arteritis, CVA, TIA, acute hypertensive emergency, sinusitis, carbon monoxide exposure. The patient presented with her typical migraine headache symptoms therefore no additional diagnostic imaging was performed. Impression Primary Impression: Migraine Additional Impression: Elevated blood pressure reading Departure Information Dispostion Home / Self-Care Condition GOOD Referrals Raymond Vann D.O. (PCP) Forms HOME CARE DOCUMENTATION FORM, IMPORTANT VISIT INFORMATION Patient Instructions ED Headache Migraine, My [facility] Additional Instructions Go home and rest for the remainder of the evening. Do not drive this evening. Continue all current medications as prescribed. Recommend follow-up with your family physician on Sunday for recheck of your blood pressure. If you have recurrent migraines recommend follow-up with Dr. Moreno. Problem Qualifiers Primary Impression: Migraine Migraine type: unspecified
[2016-08-10 21:07] VITALS: BP 172/115; PULSE 67; O2SAT 100
[2016-10-09] MEDS ORDERED: SUMA100T16 PO (16:26)
[2016-12-16] MEDS ORDERED: FLNIN/ NAE (16:34)
[2016-12-16] MEDS ORDERED: ACET-1256 PO (16:37)
[2016-12-18] MEDS ORDERED: [UNRECOGNIZED DRUG - CODE] PO (08:03)
[2016-12-18] MEDS ORDERED: LORA-741 PO (14:47)
[2016-12-18] MEDS ORDERED: MXL10 PO (18:38)
== END 2016-08-10 21:09 | disposition home or self-care (01) ==
LOC: EDBD 18:17 → C.EDB 18:18
DX: G43.909 Migraine, unspecified, not intractable, without status migrainosus (principal); R03.0 Elevated blood-pressure reading, without diagnosis of hypertension; F41.9 Anxiety disorder, unspecified; E11.9 Type 2 diabetes mellitus without complications; E78.5 Hyperlipidemia, unspecified; E03.9 Hypothyroidism, unspecified; F20.9 Schizophrenia, unspecified

== ENCOUNTER 2016-08-20 22:00 | Emergency (ER) | payer OTHER ==
[~2016-08-20] VITALS: Ht 165.1 cm; Wt 67.2 kg
[~2016-08-20 22:00] MED LIST changes: +MCRB100HP PO
[2016-08-20 22:06] VITALS: TEMP 36.9; Ht 165.1 cm; Wt 67.2 kg
[2016-08-20] MEDS ORDERED: MoRPHine SULFATE 10 MG/ML CARP/VIAL IM STA (22:50)
[2016-08-20] MEDS ORDERED: MoRPHine SULFATE 4 MG/ML 1 ML CARP\\VIAL IV STA (22:53)
[2016-08-20] MEDS ORDERED: ONDANSETRON 4MG OD TAB PO ONE (23:00)
[2016-08-20 23:29] VITALS: BP 170/98; PULSE 69; O2SAT 97
[2016-08-20] MEDS ORDERED: LISI-729 PO (23:36)
--- NOTE | 2016-08-21 05:00 | EMERGENCY ROOM VISIT NOTE ---
History First contact with patient: 22:48 Chief Complaint: HEADACHE Stated Complaint: MIGRAINE History of Present Illness The patient is a 65 year old female who presents to the Emergency Room with complaints of migraine for the past day that was slow in onset similar to prior. She is goes a headache as throbbing, ranging in severity 8 out of 10 throughout the temporal region. Nothing makes it better or worse. No visual complaints. Patient had unremarkable imaging in the past. Patient is well- known to this ER. She is requesting her normal medications. Patient denies fever, chills, chest pain, dyspnea, numbness, tingling, weakness, dizziness, cold symptoms, abdominal pain or any other medical complaints. Review of Systems See HPI for pertinent positives & negatives. A total of 10 systems reviewed and were otherwise negative. Past Medical/Surgical History Medical Problems: (1) Anxiety (2) Blurred vision (3) bunion surgery (4) DM2 (diabetes mellitus, type 2) (5) HLD (hyperlipidemia) (6) Hypothyroidism (7) Schizophrenia (8) Somatization disorder (9) Urinary incontinence Surgical Problems: (1) H/O brain surgery (2) H/O cystoscopy (3) H/O foot surgery (4) History of cataract surgery Family History Cancer Diabetes mellitus Heart disease Seizures Social History Smoking Status: Never Smoker Alcohol Use: none Drug Use: none Marital Status: single Housing Status: lives alone Occupation Status: retired Current/Historical Medications Scheduled Clozapine (Clozapine), 300 MG PO HS Clozapine (Clozapine), 50 MG PO QAM Duloxetine Hcl (Cymbalta), 60 MG PO DAILY Fluticasone Propionate (Nasal) (Flonase Allergy Relief), 2 SPRAYS DONI DAILY Levothyroxine Sodium (Levothyroxine Sodium), 50 MCG PO QAM Lisinopril (Zestril), 5 MG PO DAILY Loratadine (Claritin), 10 MG PO HS Metformin Hcl (Glucophage), 500 MG PO BIDM Nitrofurantoin (Nitrofurantoin Monohydrat), 1 TAB PO BID Nortriptyline (Pamelor), 25 MG PO HS Omeprazole (Prilosec), 40 MG PO HS Psyllium (Psyldex), 1 PKT PO HS Ranitidine (Zantac), 150 MG PO BID Simvastatin (Zocor), 40 MG PO HS Solifenacin Succinate (Vesicare), 10 MG PO DAILY Scheduled PRN Acetaminophen Tab (Tylenol), 325 MG PO BID PRN for Pain Cyclobenzaprine Hcl (Flexeril), 10 MG PO BID PRN for Muscle Spasm Lorazepam (Ativan), 0.5 MG PO DAILY PRN for Anxiety Meclizine Hcl (Meclizine Hcl), 25 MG PO TID PRN for Dizziness or Vertigo Polyethylene Glycol 3350 (Miralax), 17 GM PO DAILY PRN for Constipation Promethazine Hcl (Phenergan), 12.5 MG PO Q8 PRN for Nausea Sennosides-Docusate Sodium (Senna Plus), 1-2 TABS PO DAILY PRN for Constipation Sumatriptan Succinate (Imitrex), 100 MG PO UD PRN for Headache Allergies Coded Allergies: Cephalosporins (Verified Allergy, Unknown, 08/20/16) POLLEN (Unverified Allergy, Unknown, seasonal allergy , 08/20/16) Physical Exam Vital Signs Date Time Temp Pulse Resp B/P Pulse Ox O2 Delivery O2 Flow Rate FiO2 08/20/16 23:29 69 16 170/98 97 08/20/16 23:05 72 16 188/97 99 Room Air 08/20/16 22:06 36.9 86 18 182/91 99 Room Air Pain Rating (0-10): 5.0 Physical Exam VITALS: Vitals are noted on the nurse's note and reviewed by myself. Vital signs hypertensive GENERAL: Pleasant female, in no acute distress, nondiaphoretic, well-developed well-nourished. SKIN: The skin was without rashes, erythema, edema, or bruising. There is no tenting of the skin. Capillary reflex less than 2 seconds. HEAD: Normocephalic atraumatic. EARS: External auditory canals clear, tympanic membranes pearly roman without erythema or effusion bilaterally. EYES: Pupils equal round and reactive to light and accommodation. Conjunctivae without injection, sclerae without icterus. Extraocular movements intact. NOSE: Patent, turbinates without inflammation or discharge. No sinus tenderness. MOUTH: Mucous membranes moist. Pharynx without erythema or exudate. Uvula midline. Airway patent. Tongue does not deviate. NECK: Supple without nuchal rigidity. No lymphadenopathy. No thyromegaly. Cervical spine is nontender. No JVD. HEART: Regular rate and rhythm LUNGS: Clear to auscultation bilaterally without wheezes, rales or rhonchi. No dullness to percussion. No retractions or accessory muscle use. ABDOMEN: Positive bowel sounds x 4. Normal tympanic percussion. Soft, nontender, without masses or organomegaly. Hassan sign negative. No guarding or rebound tenderness. MUSCULOSKELETAL: No muscle atrophy, erythema, or edema noted. NEURO: Patient was alert and oriented to person place and time. Normal sensation to light and sharp touch. No focal neurological deficits. Cranial nerves II-12 grossly intact. No pronator drift. Cerebellar exam intact. Medical Decision & Procedures Medications Administered Medications (Trade) Dose Ordered Sig/Artemio Route Start Time Stop Time Status Last Admin Dose Admin Ondansetron HCl (Zofran Odt) 4 mg ONE ONCE PO 08/20/16 23:00 08/20/16 23:01 DC 08/20/16 23:02 4 MG Morphine Sulfate (MoRPHine SULFATE INJ) 4 mg NOW STAT IV 08/20/16 22:53 08/20/16 22:54 DC 08/20/16 23:02 4 MG ED Course Prior records/ancillary studies reviewed. Triage Nursing notes reviewed. The patient's history was concerning for headache. Differential diagnosis: Etiologies such as migraine headache, meningitis, sinusitis, CO exposure, ICH, SAH, infection, tumor, headache, sinus thrombosis, arterial dissection, as well as others were entertained. Physical examination findings: As above. Non-focal. ER treatment provided: Morphine and Zofran per patient standard protocol On reassessment the patient felt better. Diagnostics interpreted by me: Deferred This appears to be consistent with migraine. Patient is well-known to this ER for frequent migraine visits. She felt much better after being medicated as above. She was neurovascularly and neurologically intact. She is advised follow-up with family care in neurology in a few days or here in the ER sooner for headache, fevers, confusion, worsening signs or symptoms or as needed. Patient had no signs of meningitis. By the evaluation outlined above emergent etiologies such as meningitis, sinusitis, CO exposure, ICH, SAH, infection, temporal arteritis, tumor, sinus thrombosis, arterial dissection, as well as others were deemed relatively unlikely. The pt informed about the findings as listed above. All questions were answered and pleased with the treatment. Return instructions were outlined and the patient was discharged in stable condition. Referral: The patient was referred back to their primary care physician for follow-up in 2 to 3 days for a recheck of the current condition. Medical Decision As above Impression Primary Impression: Migraine Departure Information Dispostion Home / Self-Care Condition GOOD Referrals Raymond Vann D.OIain (PCP) Forms HOME CARE DOCUMENTATION FORM, IMPORTANT VISIT INFORMATION Patient Instructions My [facility] Additional Instructions DO NOT drive, drink alcohol, operate machinery, or perform dangerous activities today. You were given medications in the ER that can affect your ability to safely function or operate a vehicle. Rest today in a quiet, peaceful, dark environment and get a full 8-10 hrs of sleep tonight. Avoid loud noises, smoke/smoking, alcohol, bright lights, stress, or physical exertion today to minimize the chance the headache may return. Continue current medications. Ibuprofen(Motrin, Advil) may be used for fever or pain. Use 600mg every six hours as needed. Take with food. Avoid using more than 2400mg in a 24 hour period. Do not use 2400mg per day for more than three consecutive days without physician direction. Prolonged inappropriate use can lead to stomach upset or ulcers. (AND/OR) Acetaminophen(Tylenol) may be used for fever or pain. Use 1000mg every six hours as needed. Avoid using more than 3000mg in a 24 hour period. Return to the ER for passing out, worsening headache, vision problems, neck stiffness/pain, fevers, vomiting, worsening of your condition, or as needed. Follow up with your primary physician and/or a neurologist in 2-3 days for a recheck of your current condition. Problem Qualifiers Primary Impression: Migraine Migraine type: without aura Status migrainosus presence: without status migrainosus Intractability: not intractable Qualified Codes: G43.009 - Migraine without aura, not intractable, without status migrainosus
[2016-10-09] MEDS ORDERED: SUMA100T16 PO (16:26)
[2016-12-16] MEDS ORDERED: FLNIN/ NAE (16:34)
[2016-12-16] MEDS ORDERED: ACET-1256 PO (16:37)
[2016-12-18] MEDS ORDERED: [UNRECOGNIZED DRUG - CODE] PO (08:03)
[2016-12-18] MEDS ORDERED: LORA-741 PO (14:47)
[2016-12-18] MEDS ORDERED: MXL10 PO (18:38)
== END 2016-08-20 23:31 | disposition home or self-care (01) ==
LOC: EDBD 22:00 → C.EDC 22:02
DX: G43.009 Migraine without aura, not intractable, without status migrainosus (principal); F41.9 Anxiety disorder, unspecified; E11.9 Type 2 diabetes mellitus without complications; E78.5 Hyperlipidemia, unspecified; E03.9 Hypothyroidism, unspecified; F20.9 Schizophrenia, unspecified; Z80.9 Family history of malignant neoplasm, unspecified; Z83.3 Family history of diabetes mellitus; Z82.49 Family history of ischemic heart disease and other diseases of the circulatory system; Z82.0 Family history of epilepsy and other diseases of the nervous system

== ENCOUNTER 2016-08-25 14:14 | Emergency (ER) | payer OTHER ==
[~2016-08-25] VITALS: Ht 165.1 cm; Wt 64.0 kg
[~2016-08-25 14:14] MED LIST changes: +LISI-729 PO; -LSN5 PO
[2016-08-25 14:26] VITALS: TEMP 37; Ht 165.1 cm; Wt 64.0 kg
[2016-08-25] MEDS ORDERED: ASPI1TAB2 PO (15:30)
[2016-08-25] MEDS ORDERED: MECLIZINE HCL 25 MG TAB PO STA (15:48)
[2016-08-25] MEDS ORDERED: DiphenhydrAMINE HCL 50 MG/ML VIAL IM STA (15:48)
[2016-08-25] MEDS ORDERED: PROCHLORPERAZINE 5 MG/ML 2 ML VIAL IM ONE (16:00)
--- NOTE | 2016-08-25 16:20 | EMERGENCY ROOM VISIT NOTE ---
ED Visit Note First contact with patient: 15:23 I did evaluate and examine this patient myself. I did guide management for the patient. I agree with the PA's assessment as discussed. Please see the PAs dictation for further details. The patient tells me that she is presenting with a migraine headache consistent with her prior migraine headaches. It is not the worst headache of her life. She has slight bit of dizziness associated with it but she states occasionally she gets dizziness with her migraines. She is neurologically intact on my examination without any cerebellar signs with cranial nerve deficits. She was treated and discharged home and advised follow up with her doctor.
[2016-08-25 16:37] VITALS: BP 182/99; PULSE 74; O2SAT 96
--- NOTE | 2016-08-28 07:12 | EMERGENCY ROOM VISIT NOTE ---
ED Visit Note First contact with patient: 15:23 CHIEF COMPLAINT: Migraine headache. HISTORY OF PRESENT ILLNESS: Ms. Deutsch is a 65 year-old white female who is brought into the ED via ambulance complaining of a migraine headache. He reports a abrupt onset of a severe migraine headache that started approximately 3 hours ago. The pain is constant and it is slowly increasing in severity. This is not the worst headache of the life and is similar to previous migraines. Currently she describes the headache as a throbbing sensation/pain in the bitemporal area. He/She rates the pain a 9/10. The pain is radiating to the top of her head. She has not identified any aggravating or alleviating factors related to the pain. She has not taken any medications for pain prior to arrival at the hospital. There is been associated dizziness, light sensitivity , nausea but no vomiting. He/She denies fever, chills recently, sinus infection , runny nose, sore throat, no weakness or numbness of the extremities, no difficulty with speech, hearing or vision, and no trauma to the head and no neck pain. REVIEW OF SYSTEMS: All systems reviewed with the patient and found to be negative unless noted above otherwise. PAST MEDICAL HISTORY: (1) Anxiety (2) Blurred vision (3) bunion surgery (4) DM2 (diabetes mellitus, type 2) (5) HLD (hyperlipidemia) (6) Hypothyroidism (7) Schizophrenia (8) Somatization disorder (9) Urinary incontinence Surgical Problems: (1) H/O brain surgery (2) H/O cystoscopy (3) H/O foot surgery (4) History of cataract surgery CURRENT MEDICATIONS: Medications Dose Route/Sig Max Daily Dose Days Date Category Dose Instructions Kamlesh Aspirin Ec Low Dose (Aspirin) 81 Mg Tab 81 Mg PO QAM 90 08/25/16 Reported Zestril (Lisinopril) 5 Mg Tab 5 Mg PO DAILY 08/20/16 Reported Tylenol (Acetaminophen) 325 Mg Tab 975 Mg PO TID 08/05/16 Reported Psyldex (Psyllium) 30 % Pow 1 Pkt PO HS 07/25/16 Reported Vesicare (Solifenacin Succinate) 10 Mg Tab 10 Mg PO QPM 30 04/09/16 Reported Clozapine 25 Mg Tab 50 Mg PO QAM 08/05/15 Reported Senna Plus (Sennosides-Docusate Sodium) 1 Tab Tab 1-2 Tabs PO DAILY PRN 08/05/15 Reported HOLD FOR LOOSE OR WATERY STOOLS Miralax (Polyethylene Glycol 3350) 1 Pow Pow 17 Gm PO DAILY PRN 07/31/15 Reported Clozapine 100 Mg Tab 300 Mg PO HS 07/31/15 Reported Phenergan (Promethazine HCl) 25 Mg Tab 12.5 Mg PO Q8 PRN 07/31/15 Reported Meclizine Hcl 25 Mg Tab 25 Mg PO TID PRN 07/31/15 Reported Flexeril (Cyclobenzaprine Hcl) 10 Mg Tab 10 Mg PO BID PRN 07/31/15 Reported Claritin (Loratadine) 10 Mg Tab 10 Mg PO HS 07/31/15 Reported Prilosec (Omeprazole) 20 Mg Capcr 40 Mg PO HS 07/31/15 Reported Zantac (Ranitidine HCl) 150 Mg Tab 150 Mg PO BID 07/31/15 Reported Cymbalta (Duloxetine Hcl) 60 Mg Cap 60 Mg PO DAILY 07/31/15 Reported Zocor (Simvastatin) 40 Mg Tab 40 Mg PO HS 07/31/15 Reported Pamelor (Nortriptyline HCl) 25 Mg Cap 25 Mg PO HS 07/31/15 Reported Levothyroxine Sodium 50 Mcg Tab 50 Mcg PO QAM 07/31/15 Reported TAKE THIS MEDICATION AT LEAST 30 MINUTES BEFORE BREAKFAST. Glucophage (Metformin Hcl) 500 Mg Tab 500 Mg PO BIDM 07/31/15 Reported TAKE THIS MEDICATION DIRECTED WITH MORNING AND EVENING MEALS. Flonase Allergy Relief (Fluticasone Propionate (Nasal)) 50 Mcg/Act Spr 2 Sprays DONI DAILY 07/31/15 Reported Imitrex (Sumatriptan Succinate) 100 Mg Tab 100 Mg PO UD PRN 07/31/15 Reported TAKE THIS MEDICATION AT ONSET OF HEADACHE, MAY REPEAT IN 2 HOURS IF NOT EFFECTIVE. TAKE NO MORE THAT 2 TABLETS IN 24 HOURS OR 4 TABLETS IN ONE WEEK. Ativan (Lorazepam) 0.5 Mg Tab 0.5 Mg PO DAILY PRN 06/20/13 Reported ALLERGIES TO MEDICATIONS: Penicillin, cephalosporins. SOCIAL HISTORY: Patient is employed; she feels safe in her home environment; she denies tobacco and alcohol use. PHYSICAL EXAM: Vital Signs: Date Time Temp Pulse Resp B/P Pulse Ox O2 Delivery O2 Flow Rate FiO2 08/25/16 16:37 74 18 182/99 96 Room Air 08/25/16 16:14 73 18 169/93 100 Room Air 08/25/16 14:26 37.0 81 16 152/92 99 Room Air GENERAL: 65 year-old female in moderate distress due to pain, afebrile and hemodynamically stable. NEUROLOGIC: Awake, alert and oriented to person place and time. Answering questions appropriately and following commands. Cranial nerves II-XII grossly intact. No focal neurologic deficits noted. Good hand eye coordination. Good short-term and long-term recall. Romberg test negative. Pronator drift test negative. SKIN: Warm, dry and pink. No rashes, lesions or soft tissue trauma noted. HEENT: Normocephalic, atraumatic. No tenderness or hematoma over the frontal or maxillary sinuses. External ears are nontender. Auditory canals are pink and patent. Tympanic membranes are partially obscured by wax but did not milk erythematous or edematous. PERRLA. EOMI without nystagmus. Sclerae white and conjunctiva pink without drainage. Funduscopic examination was deferred due to light sensitivity. Oral cavity moist and pink. No obvious signs of infectious dental disease. Airway patent. Speech normal and clear. No posterior pharyngeal erythema or edema. No voice changes. No JVD. Trachea midline. BACK: No tenderness over the cervical, thoracic or lumbar bony spines. No nuchal rigidity or meningismus. Full range of motion of the cervical spine. THORAX: Lungs clear to auscultation and equal bilaterally with no wheezing, crackles, rhonchi or stridor and equal chest wall movements. HEART: Regular rate and rhythm with no murmurs, rubs or gallops. ABDOMEN: Soft and nontender with bowel sounds present in all quadrants; no rigidity, rebound tenderness, organomegaly or guarding. MUSCULOSKELETAL: Full range of motion of all joints without any significant discomfort and the gait is normal. ED COURSE: Patient is assessed as noted above. Patient is currently on a treatment protocol of 2 shots a month for her migraine headache; this is her third visit this month. Patient received 25 mg of Benadryl IM, 10 mg of Compazine IM and 25 mg of Meclizine by mouth. Patient was reassessed multiple times during her stay in the emergency department. Patient's case was reviewed with Dr. Johnson; he apparently assessed the patient we agreed on diagnostic approach, treatment, disposition and plan. Patient was educated about her condition and instructed on her treatment plan; she verbalized understanding and agreement with this plan. CLINICAL IMPRESSION: Migraine headache. DECISION MAKIN-year-old female who presents for evaluation of headache. She is afebrile, well appearing, and hemodynamically stable. She has no signs of a sinus, dental , or ear infection and no evidence of meningismus. She is neurologically intact. I do not suspect a headache to be secondary to a subarachnoid hemorrhage, meningitis, encephalitis, or intracranial mass lesion. DISPOSITION: Patient was discharged to home in stable condition; patient was reassessed prior to discharge and subjectively reported that she was pain and symptom-free. DISCHARGE INSTRUCTIONS: Rest at home, in a quiet darkened room and allow the medication to work for the pain. Continue to follow up current treatment plan prescribed by your physician for your migraine headaches. See your own doctor in follow-up this week for continued care and treatment. Return to the emergency department as needed worsening/uncontrolled headaches, fevers, any abnormal neurological symptoms we discussed or any new/concerning symptoms.
[2016-10-09] MEDS ORDERED: SUMA100T16 PO (16:26)
[2016-12-16] MEDS ORDERED: FLNIN/ NAE (16:34)
[2016-12-16] MEDS ORDERED: ACET-1256 PO (16:37)
[2016-12-18] MEDS ORDERED: [UNRECOGNIZED DRUG - CODE] PO (08:03)
[2016-12-18] MEDS ORDERED: LORA-741 PO (14:47)
[2016-12-18] MEDS ORDERED: MXL10 PO (18:38)
== END 2016-08-25 16:55 | disposition home or self-care (01) ==
LOC: EDBD 14:14 → C.EDA 14:16
DX: G43.909 Migraine, unspecified, not intractable, without status migrainosus (principal); F41.9 Anxiety disorder, unspecified; E11.9 Type 2 diabetes mellitus without complications; E78.5 Hyperlipidemia, unspecified; E03.9 Hypothyroidism, unspecified; F20.9 Schizophrenia, unspecified

== ENCOUNTER 2016-09-11 17:33 | Emergency (ER) | payer OTHER ==
[~2016-09-11] VITALS: Ht 165.1 cm; Wt 65.9 kg
[~2016-09-11 17:33] MED LIST changes: +ASPI1TAB2 PO; -MCRB100HP PO
[2016-09-11 17:37] VITALS: TEMP 37.4; Ht 165.1 cm; Wt 65.9 kg
[2016-09-11] MEDS ORDERED: MoRPHine SULFATE 10 MG/ML CARP/VIAL IM STA (17:56)
[2016-09-11] MEDS ORDERED: ONDANSETRON 4MG OD TAB PO ONE (18:00)
[2016-09-11 20:06] VITALS: BP 129/86; PULSE 81; O2SAT 98
--- NOTE | 2016-09-11 21:22 | EMERGENCY ROOM VISIT NOTE ---
History Report prepared by Chongibrahul: Karla Reyes Under the Supervision of: Dr. Philip Ware M.D. First contact with patient: 17:38 Chief Complaint: HEAD PAIN Stated Complaint: HEAD PAIN History of Present Illness The patient is a 65 year old female who presents to the Emergency Room with complaints of a persistent migraine headache that began this afternoon. The patient has a history of migraine headaches and states that her current symptoms feel consistent with previous migraines. She complains of some nausea and numbness in her hands which she has had before with her previous migraines. The patient typically takes 2 Tylenol every 6 hours, but her doctor prescribed her Maxalt and told her to take a dose if her headache reaches an 8/10. Today, her headache reached an 8/10 and she wanted to take a Maxalt, but said she would not be due for a dose of Maxalt for another several hours to space it out from her most recent dose of Tylenol. She decided to come to the ER for control of her migraine. She denies any recent head trauma or falls. Pt denies LOC, fevers, chills, diaphoresis, visual changes, neck pain, chest pain, breathing difficulties, vomiting, abdominal pain, back pain, melena, hematochezia, urinary symptoms, weakness, lymphadenopathy, rash, or other complaints. Source of History: patient Onset: this afternoon Position: head Quality: other (migraine) Timing: other (persistent) Associated Symptoms: + nausea, + numbness (face, hands) Review of Systems See HPI for pertinent positives and negatives. A total of ten systems were reviewed and were otherwise negative. Past Medical & Surgical Medical Problems: (1) Anxiety (2) Blurred vision (3) bunion surgery (4) DM2 (diabetes mellitus, type 2) (5) HLD (hyperlipidemia) (6) Hypothyroidism (7) Schizophrenia (8) Somatization disorder (9) Urinary incontinence Surgical Problems: (1) H/O brain surgery (2) H/O cystoscopy (3) H/O foot surgery (4) History of cataract surgery Family History Cancer Diabetes mellitus Heart disease Seizures Social History Smoking Status: Never Smoker Alcohol Use: none Drug Use: none Marital Status: single Housing Status: lives alone Occupation Status: retired Current/Historical Medications Scheduled Acetaminophen Tab (Tylenol), 975 MG PO TID Aspirin (Kamlesh Aspirin Ec Low Dose), 81 MG PO QAM Clozapine (Clozapine), 300 MG PO HS Clozapine (Clozapine), 50 MG PO QAM Duloxetine Hcl (Cymbalta), 60 MG PO DAILY Fluticasone Propionate (Nasal) (Flonase Allergy Relief), 2 SPRAYS DONI DAILY Levothyroxine Sodium (Levothyroxine Sodium), 50 MCG PO QAM Lisinopril (Zestril), 5 MG PO DAILY Loratadine (Claritin), 10 MG PO HS Metformin Hcl (Glucophage), 500 MG PO BIDM Nortriptyline (Pamelor), 25 MG PO HS Omeprazole (Prilosec), 40 MG PO HS Psyllium (Psyldex), 1 PKT PO HS Ranitidine (Zantac), 150 MG PO BID Simvastatin (Zocor), 40 MG PO HS Solifenacin Succinate (Vesicare), 10 MG PO QPM Scheduled PRN Cyclobenzaprine Hcl (Flexeril), 10 MG PO BID PRN for Muscle Spasm Lorazepam (Ativan), 0.5 MG PO DAILY PRN for Anxiety Meclizine Hcl (Meclizine Hcl), 25 MG PO TID PRN for Dizziness or Vertigo Polyethylene Glycol 3350 (Miralax), 17 GM PO DAILY PRN for Constipation Promethazine Hcl (Phenergan), 12.5 MG PO Q8 PRN for Nausea Sennosides-Docusate Sodium (Senna Plus), 1-2 TABS PO DAILY PRN for Constipation Sumatriptan Succinate (Imitrex), 100 MG PO UD PRN for Headache Allergies Coded Allergies: Cephalosporins (Verified Allergy, Unknown, 08/25/16) POLLEN (Unverified Allergy, Unknown, seasonal allergy , 08/25/16) Penicillins (Unverified Allergy, Unknown, unknown, 08/25/16) Physical Exam Vital Signs Date Time Temp Pulse Resp B/P Pulse Ox O2 Delivery O2 Flow Rate FiO2 09/11/16 20:06 81 16 129/86 98 09/11/16 17:37 37.4 79 18 137/85 99 Room Air Physical Exam GENERAL: Awake, alert, well appearing, no distress HENT: Normocephalic, atraumatic. TM's normal. Oropharynx unremarkable. EYES: PERRL. EOMI. Normal conjunctiva. Sclera non-icteric. NECK: Supple. No nuchal rigidity. FROM. No JVD or bruit. RESPIRATORY: CTA CARDIAC: RRR. No murmur. ABDOMEN: Soft, non distended. No tenderness to palpation. No rebound or guarding. No masses. RECTAL: Deferred. MUSCULOSKELETAL: Unremarkable. No edema. No discoloration. Gross motor strength symmetric. NEURO: Cranial nerves 2-12 grossly intact. Normal sensorium. No sensory or motor deficits noted. Speech normal. No pronator drift. SKIN: No rash or jaundice noted. LYMPH: No adenopathy. Medical Decision & Procedures Medications Administered Medications (Trade) Dose Ordered Sig/Artemio Route Start Time Stop Time Status Last Admin Dose Admin Morphine Sulfate (MoRPHine SULFATE INJ) 8 mg NOW STAT IM 09/11/16 17:56 09/11/16 17:59 DC 09/11/16 18:28 8 MG Ondansetron HCl (Zofran Odt) 4 mg ONE ONCE PO 09/11/16 18:00 09/11/16 18:01 DC 09/11/16 18:28 4 MG ED Course 1755: The patient was evaluated in room B5. A complete history and physical exam was performed. Ordered Morphine Sulfate 8 mg IM. 1800: Ordered Zofran Odt 4 mg PO. 1900: I reevaluated the patient. She was feeling better. Discussed results and discharge instructions: She verbalized understanding and agreement. The patient is ready for discharge. Medical Decision Prior records/ancillary studies reviewed. Triage Nursing notes reviewed and agree them. The patient's history was concerning for headache. Differential diagnosis: Etiologies such as migraine headache, meningitis, sinusitis, CO exposure, ICH, SAH, infection, tumor, headache, sinus thrombosis, arterial dissection, as well as others were entertained. Physical examination findings: As above. Non-focal. ER treatment provided: The patient is on a treatment plan. Morphine 8 milligrams IM Zofran 4 mg ODT On reassessment the patient felt better. Diagnostics interpreted by me: Deferred The patient has a long history of migraine headaches. She is seen frequently for the same. She has Maxalt at home. She will continue to use this. She had a nonfocal examination and did very well with the usual medications she receives. If she worsens in any way she will come back to the emergency department for reevaluation.I gave my usual and customary discussion regarding this issue. By the evaluation outlined above emergent etiologies such as meningitis, sinusitis, CO exposure, ICH, SAH, infection, temporal arteritis, tumor, sinus thrombosis, arterial dissection, as well as others were deemed relatively unlikely. The patient was informed about the findings as listed above. All questions were answered and she was pleased with the treatment. Return instructions were outlined and the patient was discharged in stable condition. Outpatient prescription management: No change Referral: The patient was referred back to her primary care physician for follow-up in 2 to 3 days for a recheck of the current condition. The chart was completed utilizing [employer] voice recognition software. Grammatical errors, random word insertions, pronoun errors, and incomplete sentences are an occasional consequence of this system due to software limitations, ambient noise, and hardware issues. Any formal questions or concerns about the content, text, or information contained within the body of this dictation should be directly addressed to the physician for clarification. Impression Primary Impression: Headache Scribe Attestation The scribe's documentation has been prepared under my direction and personally reviewed by me in its entirety. I confirm that the note above accurately reflects all work, treatment, procedures, and medical decision making performed by me. Departure Information Dispostion Home / Self-Care Referrals Raymond Vann, D.O. (PCP) Patient Instructions My [facility] Additional Instructions HEADACHE INSTRUCTIONS: DO NOT drive, drink alcohol, operate machinery, or perform dangerous activities today. You were given medications in the ER that can affect your ability to safely function or operate a vehicle. Rest today in a quiet, peaceful, dark environment and get a full 8-10 hrs of sleep tonight. Avoid loud noises, smoke/smoking, alcohol, bright lights, stress, or physical exertion today to minimize the chance the headache may return. Continue current medications. Acetaminophen(Tylenol) may be used for fever or pain. Use 1000mg every six hours as needed. Avoid using more than 4000mg in a 24 hour period. Return to the ER for passing out, worsening headache, vision problems, neck stiffness/pain, fevers, vomiting, worsening of your condition, or as needed. Follow up with your primary physician in 2-3 days for a recheck of your current condition.
[2016-10-09] MEDS ORDERED: SUMA100T16 PO (16:26)
[2016-12-16] MEDS ORDERED: FLNIN/ NAE (16:34)
[2016-12-16] MEDS ORDERED: ACET-1256 PO (16:37)
[2016-12-18] MEDS ORDERED: [UNRECOGNIZED DRUG - CODE] PO (08:03)
[2016-12-18] MEDS ORDERED: LORA-741 PO (14:47)
[2016-12-18] MEDS ORDERED: MXL10 PO (18:38)
== END 2016-09-11 20:15 | disposition home or self-care (01) ==
LOC: EDBD 17:33 → C.EDB 17:35
DX: G43.909 Migraine, unspecified, not intractable, without status migrainosus (principal); F41.9 Anxiety disorder, unspecified; E11.9 Type 2 diabetes mellitus without complications; E78.5 Hyperlipidemia, unspecified; R11.0 Nausea; E03.9 Hypothyroidism, unspecified; F20.9 Schizophrenia, unspecified; Z98.49 Cataract extraction status, unspecified eye; Z83.3 Family history of diabetes mellitus; Z82.0 Family history of epilepsy and other diseases of the nervous system; Z79.82 Long term (current) use of aspirin; Z79.899 Other long term (current) drug therapy

== ENCOUNTER 2016-09-11 23:47 | Emergency (ER) | payer OTHER ==
[~2016-09-11] VITALS: Ht 157.5 cm; Wt 64.1 kg
[2016-09-11 23:55] VITALS: TEMP 36.6; Ht 157.5 cm; Wt 64.1 kg
[2016-09-11] MEDS ORDERED: ONDANSETRON 4MG OD TAB PO STA (23:56)
[2016-09-12 01:10] VITALS: BP 177/85; PULSE 80; O2SAT 99
[2016-09-12] MEDS ORDERED: ONDANSETRON HOME PACK 4MG OD TAB PO ONE (01:15)
--- NOTE | 2016-09-12 02:07 | EMERGENCY ROOM VISIT NOTE ---
History First contact with patient: 23:52 Chief Complaint: DIZZY Stated Complaint: DIZZY/NAUSEA Nursing Triage Summary: Patient arrives to triage via BLS transport, states that she was here in the ED for a migraine earlier tonight, was treated and felt better. Patient went home, symptoms returned and she took Maxalt that PCP gave her. Since taking it at 2215, patient has been dizzy, having nausea and light headed. History of Present Illness The patient is a 65 year old female who presents to the Emergency Room with complaints of nausea and dizziness that began about 90 minutes ago. The patient was seen here in the emergency department several hours ago where she was treated for a migraine headache with IM morphine and oral Zofran. The patient headache has significantly improved following this intervention. She states that she went home, and decided to try Maxalt that was prescribed by her PCP. The patient has never taken this medication before. She took this medication as prescribed, and then states that she developed some nausea and dizziness immediately afterwards. She does not have additional symptoms such as chest pain, chest tightness, shortness of breath, headache, spinning, or other symptoms. The patient was confused about what to do for her symptoms, and contacted EMS to bring her back to the hospital. The patient does not have significant complaints otherwise. She continues to be mildly nauseated. She does not have other significant symptoms. Review of Systems More than 10 systems were reviewed and otherwise negative with the exception of history of present illness. Past Medical/Surgical History Medical Problems: (1) Anxiety (2) Blurred vision (3) bunion surgery (4) DM2 (diabetes mellitus, type 2) (5) HLD (hyperlipidemia) (6) Hypothyroidism (7) Schizophrenia (8) Somatization disorder (9) Urinary incontinence Surgical Problems: (1) H/O brain surgery (2) H/O cystoscopy (3) H/O foot surgery (4) History of cataract surgery Family History Cancer Diabetes mellitus Heart disease Seizures Social History Smoking Status: Never Smoker Alcohol Use: none Drug Use: none Marital Status: single Housing Status: lives alone Occupation Status: retired Current/Historical Medications Scheduled Acetaminophen Tab (Tylenol), 975 MG PO TID Aspirin (Kamlesh Aspirin Ec Low Dose), 81 MG PO QAM Clozapine (Clozapine), 300 MG PO HS Clozapine (Clozapine), 50 MG PO QAM Duloxetine Hcl (Cymbalta), 60 MG PO DAILY Fluticasone Propionate (Nasal) (Flonase Allergy Relief), 2 SPRAYS DONI DAILY Levothyroxine Sodium (Levothyroxine Sodium), 50 MCG PO QAM Lisinopril (Zestril), 5 MG PO DAILY Loratadine (Claritin), 10 MG PO HS Metformin Hcl (Glucophage), 500 MG PO BIDM Nortriptyline (Pamelor), 25 MG PO HS Omeprazole (Prilosec), 40 MG PO HS Psyllium (Psyldex), 1 PKT PO HS Ranitidine (Zantac), 150 MG PO BID Simvastatin (Zocor), 40 MG PO HS Solifenacin Succinate (Vesicare), 10 MG PO QPM Scheduled PRN Cyclobenzaprine Hcl (Flexeril), 10 MG PO BID PRN for Muscle Spasm Lorazepam (Ativan), 0.5 MG PO DAILY PRN for Anxiety Meclizine Hcl (Meclizine Hcl), 25 MG PO TID PRN for Dizziness or Vertigo Polyethylene Glycol 3350 (Miralax), 17 GM PO DAILY PRN for Constipation Promethazine Hcl (Phenergan), 12.5 MG PO Q8 PRN for Nausea Sennosides-Docusate Sodium (Senna Plus), 1-2 TABS PO DAILY PRN for Constipation Sumatriptan Succinate (Imitrex), 100 MG PO UD PRN for Headache Allergies Coded Allergies: Cephalosporins (Verified Allergy, Unknown, 09/12/16) POLLEN (Unverified Allergy, Unknown, seasonal allergy , 09/12/16) Penicillins (Unverified Allergy, Unknown, unknown, 09/12/16) Physical Exam Vital Signs Date Time Temp Pulse Resp B/P Pulse Ox O2 Delivery O2 Flow Rate FiO2 09/12/16 01:10 80 17 177/85 99 09/12/16 00:38 78 14 166/85 98 Room Air 79 134/95 79 161/91 09/11/16 23:55 36.6 74 18 176/90 100 Room Air 09/11/16 23:54 74 Pain Rating (0-10): 7.0 Physical Exam VITALS: Vitals are noted on the nurse's note and reviewed by myself. Vital signs stable. GENERAL: Well-developed, well-nourished, white female, who is in no acute distress and resting comfortably. Patient is cooperative with the examination. EARS: External ear normal. External auditory canals clear, tympanic membranes pearly roman without erythema or effusion bilaterally. EYES: Pupils equal round and reactive to light and accommodation. Conjunctivae without injection, sclerae without icterus. Extraocular movements intact. NECK: Supple without nuchal rigidity. No lymphadenopathy. No thyromegaly. Cervical spine is nontender. HEART: Regular rate and rhythm without murmurs gallops or rubs. LUNGS: Clear to auscultation bilaterally without wheezes, rales or rhonchi. No retractions or accessory muscle use. Medical Decision & Procedures Medications Administered Medications (Trade) Dose Ordered Sig/Artemio Route Start Time Stop Time Status Last Admin Dose Admin Ondansetron HCl (Zofran Odt) 4 mg NOW STAT PO 09/11/16 23:56 09/11/16 23:57 DC 09/12/16 00:10 4 MG Ondansetron HCl (ZOFRAN ODT 4MG Home Pack) 1 homepack UD ONCE PO 09/12/16 01:15 09/12/16 01:16 DC 09/12/16 01:17 1 HOMEPACK ED Course Physical exam and history were performed. Nursing notes and EMR were reviewed. Patient appears to have nausea symptoms after taking Maxalt at home just prior to arrival. The patient was previously seen in the department for a migraine, which is significantly better after here. The patient does not have other complaints or significant physical exam findings. I discussed options of care with her, and did give her Zofran ODT. We also performed orthostatic vital signs, which were normal. The patient was monitored here in the department for greater than one hour, and she was able to sleep very comfortably after Zofran. I suspect that her symptoms are directly related to the Maxalt that she took just prior to the symptoms beginning. The patient will be given a home pack of Zofran with instructions to follow with her PCP. She was otherwise invited back to the ER with any new, worsening, or concerning symptoms. The patient was pleased with this and placed understanding. The chart was completed utilizing [employer] Voice Recognition Software. Grammatical errors, random word insertions, pronoun errors, and incomplete sentences are an occasional consequence of this system due to software limitations, ambient noise, and hardware issues. Any formal questions or concerns about the content, text, or information contained within the body of this dictation should be directly addressed to the provider for clarification. . Medical Decision Differential diagnosis: Etiologies such as medication reaction, gastroenteritis, food borne illness, infections, appendicitis, diverticulitis, inflammatory bowel disease, obstruction, GI bleed, biliary pathology, as well as others were entertained. Impression Primary Impression: Nausea Additional Impression: Medication reaction Departure Information Dispostion Home / Self-Care Condition GOOD Forms HOME CARE DOCUMENTATION FORM, IMPORTANT VISIT INFORMATION Patient Instructions My [facility] Additional Instructions You were seen and evaluated today on an emergency basis only. This is not a substitute for, or an effort to provide, complete comprehensive medical care. It is not possible to recognize and treat all injuries or illnesses in a single emergency department visit. For this reason it is recommended that you followup with your primary care physician this week for ongoing care and evaluation Zofran 1 tablet every 6 hrs as needed for nausea. You are welcome to return to the emergency department anytime with new, worsening, or concerning symptoms. Problem Qualifiers
[2016-10-09] MEDS ORDERED: SUMA100T16 PO (16:26)
[2016-12-16] MEDS ORDERED: FLNIN/ NAE (16:34)
[2016-12-16] MEDS ORDERED: ACET-1256 PO (16:37)
[2016-12-18] MEDS ORDERED: [UNRECOGNIZED DRUG - CODE] PO (08:03)
[2016-12-18] MEDS ORDERED: LORA-741 PO (14:47)
[2016-12-18] MEDS ORDERED: MXL10 PO (18:38)
== END 2016-09-12 01:10 | disposition home or self-care (01) ==
LOC: EDBD 23:47 → C.EDB 23:47
DX: R11.0 Nausea (principal); F41.9 Anxiety disorder, unspecified; E11.9 Type 2 diabetes mellitus without complications; E78.5 Hyperlipidemia, unspecified; E03.9 Hypothyroidism, unspecified; F20.9 Schizophrenia, unspecified; Z79.82 Long term (current) use of aspirin

== ENCOUNTER 2016-09-27 17:32 | Emergency (ER) | payer OTHER ==
[~2016-09-27] VITALS: Ht 160 cm; Wt 61.9 kg
[2016-09-27 17:45] VITALS: TEMP 37; Ht 160 cm; Wt 61.9 kg
[2016-09-27] MEDS ORDERED: ONDANSETRON 4MG OD TAB PO STA ×2 (18:21→19:29)
[2016-09-27] MEDS ORDERED: MoRPHine SULFATE 10 MG/ML CARP/VIAL IM STA (18:21)
--- NOTE | 2016-09-27 18:27 | EMERGENCY ROOM VISIT NOTE ---
History Report prepared by Ammy: Alpesh Bills Under the Supervision of: Dr. Patel John M.D. First contact with patient: 18:14 Chief Complaint: HEADACHE Stated Complaint: HEADACHE History of Present Illness The patient is a 66 year old female who presents to the Emergency Room with complaints of an intermittent headache beginning earlier today. The patient was brought in by EMS for the severe headache. She notes she has a history of migraines but that this does not feel like a migraine headache exactly. She notes the headache has been off and on today, and locates the pain all over her head. The patient rates the pain an 8/10 in severity. The patient did not eat much for dinner and took Tylenol 4 hours ago. She denies having any fever, arm or leg weakness, vomiting, or nausea. She does note that she felt unsteady upon standing today. The patient indicates that she is permitted 2 injections per month for migraines, and was here 15 days ago for a headache and received an injection at that time. The patient lives by herself but has help during the week. She denies being on any blood thinners. Source of History: patient Onset: earlier today Position: head Symptom Intensity: 8/10 Quality: ache Timing: intermittent Modifying Factors (Relieving): other (injections) Associated Symptoms: No fevers, No nausea, No vomiting, No weakness Review of Systems See HPI for pertinent positives & negatives. A total of 10 systems reviewed and were otherwise negative. Past Medical & Surgical Medical Problems: (1) Anxiety (2) Blurred vision (3) bunion surgery (4) DM2 (diabetes mellitus, type 2) (5) HLD (hyperlipidemia) (6) Hypothyroidism (7) Schizophrenia (8) Somatization disorder (9) Urinary incontinence Surgical Problems: (1) H/O brain surgery (2) H/O cystoscopy (3) H/O foot surgery (4) History of cataract surgery Family History Cancer Diabetes mellitus Heart disease Seizures Social History Smoking Status: Never Smoker Alcohol Use: none Drug Use: none Marital Status: single Housing Status: lives alone Occupation Status: retired Current/Historical Medications Scheduled Clozapine (Clozapine), 300 MG PO HS Clozapine (Clozapine), 50 MG PO QAM Duloxetine HCl (Duloxetine HCl), 60 MG PO DAILY Fluticasone Propionate (Nasal) (Flonase Allergy Relief), 2 SPRAYS DONI DAILY Levothyroxine Sodium (Levothyroxine Sodium), 50 MCG PO QAM Lisinopril (Lisinopril), 5 MG PO DAILY Loratadine (Claritin), 10 MG PO HS Metformin HCl (Metformin HCl), 500 MG PO BIDM Nortriptyline Hcl (Pamelor), 50 MG PO HS Omeprazole (Prilosec), 40 MG PO HS Psyllium (Psyldex), 1 PKT PO HS Ranitidine HCl (Ranitidine HCl), 150 MG PO BID Simvastatin (Simvastatin), 40 MG PO HS Solifenacin (Vesicare), 10 MG PO QPM Scheduled PRN Cyclobenzaprine Hcl (Flexeril), 10 MG PO BID PRN for Muscle Spasm Lorazepam (Ativan), 0.5 MG PO DAILY PRN for Anxiety Meclizine Hcl (Meclizine Hcl), 25 MG PO TID PRN for Dizziness or Vertigo Polyethylene (Polyethylene Glycol 3350), 17 GM PO DAILY PRN for Constipation Promethazine Hcl (Phenergan), 12.5 MG PO Q8 PRN for Nausea Rizatriptan Benzoate (Rizatriptan Benzoate), 10 MG PO UD PRN for Headache Sennosides-Docusate Sodium (Senna Plus), 1-2 TABS PO DAILY PRN for Constipation Sumatriptan Succinate (Imitrex), 100 MG PO UD PRN for Headache Allergies Coded Allergies: Cephalosporins (Verified Allergy, Unknown, 09/12/16) POLLEN (Unverified Allergy, Unknown, seasonal allergy , 09/12/16) Penicillins (Unverified Allergy, Unknown, unknown, 09/12/16) Physical Exam Vital Signs Date Time Temp Pulse Resp B/P Pulse Ox O2 Delivery O2 Flow Rate FiO2 09/27/16 19:35 76 16 135/72 98 Room Air 09/27/16 17:45 37.0 80 16 138/62 98 Room Air Physical Exam GENERAL: Patient is in no acute distress. HEENT: No acute trauma, normocephalic atraumatic, mucous membranes moist, no nasal congestion, no scleral icterus. Pupils equal and reactive to light. NECK: No stridor, no adenopathy, no meningismus, trachea is midline. LUNGS: Clear to auscultation bilaterally, no wheeze, no rhonchi, breath sounds equal. HEART: Without murmurs gallops or rubs, regular rate and rhythm. ABDOMEN: Soft, nontender, bowel sounds positive, no hernias, no peritonitis. EXTREMITIES: No cyanosis or edema, full range of motion of all the joints without pain or difficulty, no signs for acute trauma. NEUROLOGIC: Oriented x 3, no acute motor or sensory deficits, no focal weakness. No cerebellar deficits. 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 This is unchanged in the prior study. The calvarium and skull base are intact. The ventricles and sulci are within normal limits. There is no mass, hematoma, midline shift, or acute infarct. Impression: No acute intracranial abnormality. Chronic change. No change from the prior study. Electronically signed by: Riley Casey M.D. 09/27/2016 7:09 PM Dictated Date/Time: 09/27/2016 7:07 PM Medications Administered Medications (Trade) Dose Ordered Sig/Artemio Route Start Time Stop Time Status Last Admin Dose Admin Morphine Sulfate (MoRPHine SULFATE INJ) 8 mg NOW STAT IM 09/27/16 18:21 09/27/16 18:24 DC 09/27/16 18:31 8 MG Ondansetron HCl (Zofran Odt) 4 mg NOW STAT PO 09/27/16 18:21 09/27/16 18:24 DC 09/27/16 18:30 4 MG Ondansetron HCl (Zofran Odt) 4 mg NOW STAT PO 09/27/16 19:29 09/27/16 19:30 DC 09/27/16 19:35 4 MG ED Course 1817: The patient was evaluated in room B10. A complete history and physical exam was performed. 1820: Ordered Zofran Odt 4 mg PO, and Morphine Sulfate 8 mg IM. 1927: I reassessed the patient. She is feeling better, but slightly nauseous. 1928: Ordered Zofran Odt 4 mg PO. 1939: Reevaluated the patient. Discussed results and discharge instructions: She verbalized understanding and agreement. The patient is ready for discharge. Medical Decision Differentials include intracranial bleeding, migraine, tension headache, intracranial mass, meningitis, and head trauma. The patient presents with a headache. On exam, she has no focal neurologic deficits. There is no meningismus. She is not toxic or febrile. She has not suffered head trauma. She does carry a history of migraines. Because the headache seemed somewhat different than her typical migraine, a brain CT was done, there was no acute bleed or mass effect. The patient received IM morphine and oral Zofran, she feels improved. She was reassured, she is being discharged home. Her headache is very likely migrainous. Impression Primary Impression: Headache Scribe Attestation The scribe's documentation has been prepared under my direction and personally reviewed by me in its entirety. I confirm that the note above accurately reflects all work, treatment, procedures, and medical decision making performed by me. Departure Information Dispostion Home / Self-Care Referrals Raymond Vann, D.O. (PCP) Patient Instructions My [facility] Additional Instructions rest fluids return if worsening brain CT was ok today
--- NOTE | 2016-09-27 19:10 | DIAGNOSTIC IMAGING REPORT ---
HEAD CT NONCONTRAST CT DOSE: 729.78 mGycm HISTORY: Mental status change headache TECHNIQUE: Multiaxial CT images of the head were performed without the use of intravenous contrast. 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 This is unchanged in the prior study. The calvarium and skull base are intact. The ventricles and sulci are within normal limits. There is no mass, hematoma, midline shift, or acute infarct. Impression: No acute intracranial abnormality. Chronic change. No change from the prior study. Electronically signed by: Riley Casey M.D. 09/27/2016 7:09 PM Dictated Date/Time: 09/27/2016 7:07 PM
[2016-09-27 19:35] VITALS: BP 135/72; PULSE 76; O2SAT 98
[2016-10-09] MEDS ORDERED: SUMA100T16 PO (16:26)
[2016-12-16] MEDS ORDERED: FLNIN/ NAE (16:34)
[2016-12-16] MEDS ORDERED: ACET-1256 PO (16:37)
[2016-12-18] MEDS ORDERED: [UNRECOGNIZED DRUG - CODE] PO (08:03)
[2016-12-18] MEDS ORDERED: LORA-741 PO (14:47)
[2016-12-18] MEDS ORDERED: MXL10 PO (18:38)
== END 2016-09-27 19:40 | disposition home or self-care (01) ==
LOC: EDBD 17:32 → C.EDB 17:32
DX: R51 Headache (principal); F41.9 Anxiety disorder, unspecified; E11.9 Type 2 diabetes mellitus without complications; E78.5 Hyperlipidemia, unspecified; E03.9 Hypothyroidism, unspecified; F20.9 Schizophrenia, unspecified; Z98.49 Cataract extraction status, unspecified eye; Z83.3 Family history of diabetes mellitus; Z82.0 Family history of epilepsy and other diseases of the nervous system; Z79.899 Other long term (current) drug therapy

== ENCOUNTER 2016-09-29 15:39 | Emergency (ER) | payer OTHER ==
[~2016-09-29] VITALS: Ht 165.1 cm; Wt 66.0 kg
[2016-09-29 15:50] VITALS: BP_SYST 82; PULSE 80; TEMP 37.2; O2SAT 100; Ht 165.1 cm; Wt 66.0 kg
[2016-09-29] MEDS ORDERED: KETOROLAC TROMETHAMINE 60 MG/2 ML VIAL IM STA (16:03)
--- NOTE | 2016-09-29 23:48 | EMERGENCY ROOM VISIT NOTE ---
History First contact with patient: 15:53 Chief Complaint: HEADACHE Stated Complaint: MIGRAINE History of Present Illness The patient is a 66 year old female who presents to the Emergency Room with complaints of headache that began 4 or 5 hours ago while doing laundry. The patient has a history of chronic migraines. She is well-known to this facility , and is on a treatment plan. Today is her fourth visit of the month. The patient states her symptoms are identical to previous. This is not the worst headache of her life. She does not have an injury or trauma to explain her symptoms. Her last CT scan was a few days ago, and was without acute findings. She felt well at the time of her discharge from her last visit. She does follow with neurology. She is mildly nauseated without vomiting. She rates her discomfort a 9/10. She presents via ambulance. Review of Systems More than 10 systems were reviewed and otherwise negative with the exception of history of present illness. Past Medical/Surgical History Medical Problems: (1) Anxiety (2) Blurred vision (3) bunion surgery (4) DM2 (diabetes mellitus, type 2) (5) HLD (hyperlipidemia) (6) Hypothyroidism (7) Schizophrenia (8) Somatization disorder (9) Urinary incontinence Surgical Problems: (1) H/O brain surgery (2) H/O cystoscopy (3) H/O foot surgery (4) History of cataract surgery Family History Cancer Diabetes mellitus Heart disease Seizures Social History Smoking Status: Never Smoker Alcohol Use: none Drug Use: none Marital Status: single Housing Status: lives alone Occupation Status: retired Current/Historical Medications Scheduled Clozapine (Clozapine), 300 MG PO HS Clozapine (Clozapine), 50 MG PO QAM Duloxetine HCl (Duloxetine HCl), 60 MG PO DAILY Fluticasone Propionate (Nasal) (Flonase Allergy Relief), 2 SPRAYS DONI DAILY Levothyroxine Sodium (Levothyroxine Sodium), 50 MCG PO QAM Lisinopril (Lisinopril), 5 MG PO DAILY Loratadine (Claritin), 10 MG PO HS Metformin HCl (Metformin HCl), 500 MG PO BIDM Nortriptyline Hcl (Pamelor), 50 MG PO HS Omeprazole (Prilosec), 40 MG PO HS Psyllium (Psyldex), 1 PKT PO HS Ranitidine HCl (Ranitidine HCl), 150 MG PO BID Simvastatin (Simvastatin), 40 MG PO HS Solifenacin (Vesicare), 10 MG PO QPM Scheduled PRN Cyclobenzaprine Hcl (Flexeril), 10 MG PO BID PRN for Muscle Spasm Lorazepam (Ativan), 0.5 MG PO DAILY PRN for Anxiety Meclizine Hcl (Meclizine Hcl), 25 MG PO TID PRN for Dizziness or Vertigo Polyethylene (Polyethylene Glycol 3350), 17 GM PO DAILY PRN for Constipation Promethazine Hcl (Phenergan), 12.5 MG PO Q8 PRN for Nausea Rizatriptan Benzoate (Rizatriptan Benzoate), 10 MG PO UD PRN for Headache Sennosides-Docusate Sodium (Senna Plus), 1-2 TABS PO DAILY PRN for Constipation Sumatriptan Succinate (Imitrex), 100 MG PO UD PRN for Headache Allergies Coded Allergies: Cephalosporins (Verified Allergy, Unknown, 09/29/16) POLLEN (Unverified Allergy, Unknown, seasonal allergy , 09/29/16) Penicillins (Unverified Allergy, Unknown, unknown, 09/29/16) Physical Exam Vital Signs Date Time Temp Pulse Resp B/P Pulse Ox O2 Delivery O2 Flow Rate FiO2 09/29/16 15:50 37.2 80 16 82/ 100 Room Air Pain Rating (0-10): 7.0 Physical Exam VITALS: Vitals are noted on the nurse's note and reviewed by myself. Vital signs stable. GENERAL: Well-developed, well-nourished, white female, who is in no acute distress and resting comfortably. Patient is cooperative with the examination. HEAD: Normocephalic atraumatic. NECK: Supple without nuchal rigidity. No lymphadenopathy. No thyromegaly. Cervical spine is nontender. HEART: Regular rate and rhythm without murmurs gallops or rubs. LUNGS: Clear to auscultation bilaterally without wheezes, rales or rhonchi. No retractions or accessory muscle use. ABDOMEN: Positive normal bowel sounds x 4. Soft, nontender, without masses or organomegaly. No guarding or rebound tenderness. MUSCULOSKELETAL: No muscle atrophy, erythema, or edema noted. Full range of motion without joint tenderness in all extremities. NEURO: Patient was alert and oriented to person place and time. CN II through XII grossly intact. Deep tendon reflexes 2+ throughout. No focal neurological deficits Medical Decision & Procedures Medications Administered Medications (Trade) Dose Ordered Sig/Artemio Route Start Time Stop Time Status Last Admin Dose Admin Ketorolac Tromethamine (Toradol Inj) 60 mg NOW STAT IM 09/29/16 16:03 09/29/16 16:05 DC 09/29/16 16:10 60 MG ED Course Physical exam and history were performed. Nursing notes and EMR were reviewed. Patient appears to have a migraine headache that began several hours ago. The patient is well-known to this facility for chronic migraines. The patient does not appear toxic on examination. She certainly is without signs of meningitis or encephalitis. She had CT imaging a few days ago, and additional imaging is not felt necessary at this time. I discussed options of care at length with the patient. She is on a 2 shot per month treatment plan. She was seen 4 times last month for pain-related complaints, and has now been seen 4 times this month. The patient essentially is here for pain control. I will give the patient 60 mg IM Toradol. She will not be receiving narcotics. The patient is to follow with her PCP and neurologist for further care and management. I explained to the patient that we are not able to treat chronic pain out of the ER, and that she must follow up appropriately. The patient was otherwise invited back to the ER with any new, worsening, or concerning symptoms. She rated her discomfort a 7/10 at the time of her departure. The chart was completed utilizing [employer] Speech Voice Recognition Software. Grammatical errors, random word insertions, pronoun errors, and incomplete sentences are an occasional consequence of this system due to software limitations, ambient noise, and hardware issues. Any formal questions or concerns about the content, text, or information contained within the body of this dictation should be directly addressed to the provider for clarification. . Medical Decision The differential diagnosis includes, but is not limited to: acute intracranial bleed, meningitis, encephalitis, mass or mass effect, sinusitis, infection, tumor, headache, temporal arteritis and carbon monoxide exposure, and migraine. Impression Primary Impression: Migraine Departure Information Dispostion Home / Self-Care Condition GOOD Referrals Raymond Vann D.O. (PCP) Forms HOME CARE DOCUMENTATION FORM, IMPORTANT VISIT INFORMATION Patient Instructions My [facility] Additional Instructions You were seen and evaluated today on an emergency basis only. This is not a substitute for, or an effort to provide, complete comprehensive medical care. It is not possible to recognize and treat all injuries or illnesses in a single emergency department visit. For this reason it is recommended that you followup with your primary care physician or neurologist this week for ongoing care and evaluation. Rest today in a quiet, peaceful, dark environment and get a full 8-10 hrs of sleep tonight. Avoid loud noises, smoke/smoking, alcohol, bright lights, stress, or physical exertion today to minimize the chance the headache may return. Continue current medications. Ibuprofen(Motrin, Advil) may be used for fever or pain. Use 600mg every six hours as needed. Take with food. Avoid using more than 2400mg in a 24 hour period. Do not use 2400mg per day for more than three consecutive days without physician direction. Prolonged inappropriate use can lead to stomach upset or ulcers. (AND/OR) Acetaminophen(Tylenol) may be used for fever or pain. Use 1000mg every six hours as needed. Avoid using more than 4000mg in a 24 hour period. Return to the ER for passing out, worsening headache, vision problems, neck stiffness/pain, fevers, vomiting, worsening of your condition, or as needed. Problem Qualifiers Primary Impression: Migraine Migraine type: without aura
[2016-10-09] MEDS ORDERED: SUMA100T16 PO (16:26)
[2016-12-16] MEDS ORDERED: FLNIN/ NAE (16:34)
[2016-12-16] MEDS ORDERED: ACET-1256 PO (16:37)
[2016-12-18] MEDS ORDERED: [UNRECOGNIZED DRUG - CODE] PO (08:03)
[2016-12-18] MEDS ORDERED: LORA-741 PO (14:47)
== END 2016-09-29 16:24 | disposition home or self-care (01) ==
LOC: EDBD 15:39 → C.EDB 15:47
DX: G43.909 Migraine, unspecified, not intractable, without status migrainosus (principal); F41.9 Anxiety disorder, unspecified; E11.9 Type 2 diabetes mellitus without complications; E78.5 Hyperlipidemia, unspecified; E03.9 Hypothyroidism, unspecified; F20.9 Schizophrenia, unspecified; Z98.49 Cataract extraction status, unspecified eye; Z83.3 Family history of diabetes mellitus; Z82.0 Family history of epilepsy and other diseases of the nervous system; Z80.9 Family history of malignant neoplasm, unspecified; Z79.899 Other long term (current) drug therapy

== ENCOUNTER 2016-10-02 15:49 | Emergency (ER) | payer OTHER ==
[~2016-10-02] VITALS: Ht 162.6 cm; Wt 66.9 kg
[2016-10-02 15:56] VITALS: TEMP 37.2; Ht 162.6 cm; Wt 66.9 kg
[2016-10-02] MEDS ORDERED: PROCHLORPERAZINE 5 MG/ML 2 ML VIAL IM STA (16:25)
[2016-10-02] MEDS ORDERED: DiphenhydrAMINE HCL 50 MG/ML VIAL IM STA (16:25)
[2016-10-02] MEDS ORDERED: KETOROLAC TROMETHAMINE 60 MG/2 ML VIAL IM STA (17:32)
[2016-10-02 17:41] VITALS: BP 181/96; PULSE 73; O2SAT 100
--- NOTE | 2016-10-02 23:51 | EMERGENCY ROOM VISIT NOTE ---
History Report prepared by Ammy: Aminata Conway Under the Supervision of: Dr. Brian Johnson M.D. First contact with patient: 16:17 Chief Complaint: HEADACHE Stated Complaint: HEADACHE History of Present Illness The patient is a 66 year old female who presents to the Emergency Room with complaints of a constant throbbing headache beginning 2 hours prior to arrival. The patient rates her pain as 9/10 in severity. She describes the pain to be in her face and up into her head. She notes that she was in the grocery store during the onset of the headache. The patient has a history of migraines and notes that her symptoms are like her prior migraines. She states that her symptoms worsen with light, sounds and smells. The patient denies a fever, vomiting, weakness or numbness to one side of the body. She states that she was recently started on Nortriptyline for her migraines. 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 Review of Systems See HPI for pertinent positives & negatives. A total of 10 systems reviewed and were otherwise negative. Past Medical & Surgical Medical Problems: (1) Anxiety (2) Blurred vision (3) bunion surgery (4) DM2 (diabetes mellitus, type 2) (5) HLD (hyperlipidemia) (6) Hypothyroidism (7) Schizophrenia (8) Somatization disorder (9) Urinary incontinence Surgical Problems: (1) H/O brain surgery (2) H/O cystoscopy (3) H/O foot surgery (4) History of cataract surgery Family History Cancer Diabetes mellitus Heart disease Seizures Social History Smoking Status: Never Smoker Alcohol Use: none Drug Use: none Marital Status: single Housing Status: lives alone Occupation Status: retired Current/Historical Medications Scheduled Aspirin (Aspirin Chewable), 81 MG PO DAILY Clozapine (Clozapine), 300 MG PO HS Clozapine (Clozapine), 50 MG PO QAM Duloxetine HCl (Duloxetine HCl), 60 MG PO DAILY Fluticasone Propionate (Nasal) (Flonase Allergy Relief), 2 SPRAYS DONI DAILY Levothyroxine Sodium (Levothyroxine Sodium), 50 MCG PO QAM Lisinopril (Lisinopril), 5 MG PO DAILY Loratadine (Claritin), 10 MG PO HS Metformin HCl (Metformin HCl), 500 MG PO BIDM Nortriptyline Hcl (Pamelor), 50 MG PO HS Omeprazole (Prilosec), 40 MG PO HS Psyllium (Psyldex), 1 PKT PO HS Ranitidine HCl (Ranitidine HCl), 150 MG PO BID Simvastatin (Simvastatin), 40 MG PO HS Solifenacin (Vesicare), 10 MG PO QPM Scheduled PRN Acetaminophen (Tylenol), 1,000 MG PO DIRECTED PRN for Pain Cyclobenzaprine Hcl (Flexeril), 10 MG PO BID PRN for Muscle Spasm Lorazepam (Ativan), 0.5 MG PO DAILY PRN for Anxiety Meclizine Hcl (Meclizine Hcl), 25 MG PO TID PRN for Dizziness or Vertigo Polyethylene (Polyethylene Glycol 3350), 17 GM PO DAILY PRN for Constipation Promethazine Hcl (Phenergan), 12.5 MG PO Q8 PRN for Nausea Rizatriptan Benzoate (Rizatriptan Benzoate), 10 MG PO UD PRN for Headache Sennosides-Docusate Sodium (Senna Plus), 1-2 TABS PO DAILY PRN for Constipation Sumatriptan Succinate (Imitrex), 100 MG PO UD PRN for Headache Allergies Coded Allergies: Cephalosporins (Verified Allergy, Unknown, 10/02/16) POLLEN (Verified Allergy, Unknown, seasonal allergy , 10/02/16) Penicillins (Verified Allergy, Unknown, unknown, 10/02/16) Physical Exam Vital Signs Date Time Temp Pulse Resp B/P Pulse Ox O2 Delivery O2 Flow Rate FiO2 10/02/16 17:41 73 18 181/96 100 Room Air 10/02/16 15:56 37.2 78 18 183/106 100 Room Air Physical Exam Constitutional: Vital signs reviewed. Eyes: Pupils are equal round reactive to light. Conjunctiva are noninjected. ENT: Pharynx is clear without erythema or exudate. Mucous membranes are moist. Neck supple without meningeal signs. Respiratory: Clear to auscultation bilaterally. Breath sounds are equal bilaterally. Cardiovascular: Regular rate and rhythm. No rubs or gallops. GI: Soft, nondistended and nontender. Bowel sounds are present. Musculoskeletal: No peripheral edema. No lower extremity tenderness. Integumentary: No cyanosis. Neurological: The patient is awake and alert. Cranial nerves II-XII are intact. Motor is 5 out of 5 all extremities. Sensation is intact to light touch all extremities. Normal speech. No pronator drift. Psychiatric: Normal affect. Medical Decision & Procedures Medications Administered Medications (Trade) Dose Ordered Sig/Artemio Route Start Time Stop Time Status Last Admin Dose Admin Prochlorperazine Edisylate (Compazine Inj) 10 mg NOW STAT IM 10/02/16 16:25 10/02/16 16:27 DC 10/02/16 16:35 10 MG Diphenhydramine HCl (Benadryl Inj) 50 mg ONE STAT IM 10/02/16 16:25 10/02/16 16:27 DC 10/02/16 16:34 50 MG Ketorolac Tromethamine (Toradol Inj) 20 mg NOW STAT IM 10/02/16 17:32 10/02/16 17:33 DC 10/02/16 17:44 20 MG ED Course 1622: The patient was evaluated in room C5. A complete history and physical exam was performed. 1625: Benadryl Inj 50 mg IM, Compazine Inj 10 mg IM. 1709: I reevaluated the patient. She received her medications 15 minutes ago and states that she does not feel relief from her pain. 1731: The patient is feeling better but still has some pain. 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 1732: Toradol Inj 20 mg IM. 1755: Upon reevaluation, the patient appeared to have improvement of her symptoms. I discussed tonight's findings with her. She verbalized agreement of the treatment plan. She was discharged home. Medical Decision This is a 66-year-old female presents with a migraine headache. I did perform a limited focused review of portions of the patient's old chart on the electronic medical record. The patient was seen in the ED September 29 for a headache and 3 other times during the month of August for a headache. A head CT was done September 27, which was negative for acute process as well as a brain MRI April 2016, which showed no acute process. I did evaluate the patient as noted above. The patient is presenting with a migraine headache which she states is consistent with her prior migraines. She is here frequently for similar migraine headaches. She is neurologically intact and afebrile. I have no reason to suspect an acute intracranial hemorrhage or meningitis. I did treat the patient with IM Compazine and Benadryl. She had improvement of her symptoms but still had some pain. I therefore treated with Toradol IM and she was discharged in good condition. She was advised follow closely with her doctor. She was given return instructions as outlined below. Impression Primary Impression: Headache Scribe Attestation The scribe's documentation has been prepared under my direct and personally reviewed by me in its entirety. I confirm that the note above accurately reflects all work, treatment, procedures, and medical decision making performed by me. Departure Information Dispostion Home / Self-Care Referrals Raymond Vann D.O. (PCP) Forms HOME CARE DOCUMENTATION FORM, IMPORTANT VISIT INFORMATION Patient Instructions ED Headache Migraine, My [facility] Additional Instructions You have been examined and treated today on an emergency basis only. This is not a substitute for, or an effort to provide, complete comprehensive medical care. It is impossible to recognize and treat all injuries or illnesses in a single emergency department visit. It is therefore important that you follow up closely with your physician. Call as soon as possible for an appointment. Return for worsening symptoms or if you develop fever, numbness or weakness on one side of your body, difficulties with your speech or walking, or any other concerning symptoms. Problem Qualifiers Primary Impression: Headache Headache type: unspecified Headache chronicity pattern: acute headache Intractability: not intractable Qualified Codes: R51 - Headache
[2016-10-09] MEDS ORDERED: SUMA100T16 PO (16:26)
[2016-12-16] MEDS ORDERED: FLNIN/ NAE (16:34)
[2016-12-16] MEDS ORDERED: ACET-1256 PO (16:37)
[2016-12-18] MEDS ORDERED: [UNRECOGNIZED DRUG - CODE] PO (08:03)
[2016-12-18] MEDS ORDERED: LORA-741 PO (14:47)
== END 2016-10-02 18:05 | disposition home or self-care (01) ==
LOC: EDBD 15:49 → C.EDC 15:51
DX: R51 Headache (principal); F41.9 Anxiety disorder, unspecified; E11.9 Type 2 diabetes mellitus without complications; E78.5 Hyperlipidemia, unspecified; E03.9 Hypothyroidism, unspecified; F20.9 Schizophrenia, unspecified; Z79.82 Long term (current) use of aspirin

== ENCOUNTER 2016-10-07 20:42 | Emergency (ER) | payer OTHER ==
[~2016-10-07] VITALS: Ht 165.1 cm; Wt 63.7 kg
[2016-10-07 20:55] VITALS: BP 186/98; PULSE 79; TEMP 37; O2SAT 100; Ht 165.1 cm; Wt 63.7 kg
[2016-10-07] MEDS ORDERED: KETOROLAC TROMETHAMINE 60 MG/2 ML VIAL IM STA (21:59)
--- NOTE | 2016-10-07 22:02 | EMERGENCY ROOM VISIT NOTE ---
ED Visit Note First contact with patient: 21:02 CHIEF COMPLAINT: Migraine headache HISTORY OF PRESENT ILLNESS: This 66-year-old female patient presented to the emergency department today with a gradual onset of a severe generalized headache that started yesterday. The patient states the migraine is similar to their typical migraines. There has been associated photophobia, phonophobia, nausea without vomiting. The patient denies fever or chills recently, and there is no weakness or numbness of the extremities. There is no difficulty with speech or vision. No trauma to the head and no neck pain. The pain is severe, constant, and it is slowly increasing in severity. The patient rates the pain as constant and 7/10. The patient has taken sumatriptan which was recently prescribed by her primary care provider without relief. This is not the worst headache of the life and is similar to previous migraines. Previous imaging studies of the brain have been normal. REVIEW OF SYSTEMS: A review of systems was performed with positives and pertinent negatives listed in the history of present illness. All other systems were reviewed and are negative. ALLERGIES: Cephalosporins, penicillins MEDICATIONS: Reviewed and discussed with the patient. PMH: No pertinent past medical history. SOCIAL HISTORY: Patient is a 66-year-old female who lives locally. PHYSICAL EXAM: VITAL SIGNS - Vital signs and nursing notes were reviewed. GENERAL - 66-year-old female appearing her stated age who is in no acute distress. Communicates well with provider and answers questions appropriately. HEAD - Normocephalic, Atraumatic. No Kumar's Sign or Raccoon's Eyes. No depressed skull fractures palpable. EYES - PERRL with EOMI bilaterally. Sclera anicteric. Palpebral conjunctiva pink and moist with no injection noted. EARS - No deformities of external structures noted on gross examination bilaterally. No pain elicited with palpation of the tragus bilaterally. External auditory canals without discharge or otorrhea. Tympanic membranes pearly roman without retraction or bulging. NOSE - Midline and without cyanosis. No epistaxis or purulent drainage noted. Septum midline without deviation or septal hematoma noted. MOUTH/OROPHARYNX - Without perioral cyanosis. Buccal mucosa pink and moist and without leukoplakia. Tongue midline with equal elevation of palate bilaterally. No tonsillar hypertrophy, erythema, or exudates noted. NECK - Neck with FROM. Supple to palpation. No lymphadenopathy noted. No nuchal rigidity. LUNGS - Chest wall symmetric without accessory muscle use, intercostals retractions, or central cyanosis. Normal vesicular breath sounds CTA B/L. No wheezes, rales, or rhonchi appreciated. CARDIAC - RRR with S1/S2. No murmur, rubs, or gallops appreciated. EXTREMITIES - No pretibial edema present. +3/5 radial and dorsalis pedis pulses palpated throughout. FROM with no tremors, fasciculations, or clonus noted on PROM throughout. +5/5 strength noted in UE/LE bilaterally. NEUROLOGIC - Cranial nerves II through XII grossly intact. Sensory intact to light touch throughout. Patellar reflexes +2/4. Patient able to perform rapid alternating movements appropriately. Negative Pronator Drift. PSYCH - A&Ox3 and cooperates fully with examiner. Pt is very pleasant and interacts well with examiner. EMERGENCY DEPARTMENT COURSE: I examined the patient. The patient is on a narcotic injection per month treatment plan for their migraines. The patient is had increasing frequency of visits recently. She was provided 60 mg Toradol intramuscularly for her pain. She was encouraged to follow-up with her primary care provider who recently changed her medications for her migraines. She was educated on worrisome symptoms for return visit to the emergency department. Patient discharged home in good condition. In the evaluation and treatment of this patient, the following differential diagnoses were considered: Migraine Headache, Intracranial Hemorrhage, Subdural Hematoma, Subarachnoid Hemorrhage, Cerebral Aneurysm, Temporal/Giant Cell Arteritis, Tension Headache, Meningitis, Encephalitis, or Hydrocephalus. DIAGNOSIS: Migraine headache DISCHARGE INSTRUCTIONS & TREATMENT: You have been treated in the Emergency Department for a Headache. For pain control, you can use the following [id number] medicines (if >12 yo): - Regular strength (325mg/tab) Tylenol (acetaminophen) 2 tabs every 4-6 hours as needed. Do not exceed 12 tablets in a 24 hour period. Avoid taking more than 4 grams (4000 mg) of Tylenol per day. This includes any other sources of acetaminophen you may take on a regular basis. - Regular strength (200 mg/tab) Advil (ibuprofen) 1-2 tabs every 4-6 hours as needed. Do not exceed a dose of 3200 mg per day. You should relax in a quiet, dark place for the rest of the day. Avoid any possible triggers including: cigarette smoke, caffeine, nicotine, chocolate, wine, beer, loud noises or music, or bright lights. You should schedule a follow-up appointment in 2-3 days with your Primary Care Provider or established Neurologist for further evaluation and treatment of your Headache. Return to the Emergency Department if your current symptoms worsen despite treatment course outlined above, or if you develop any of the following symptoms : intractable pain despite aforementioned treatment course, visual disturbances , loss of vision, unilateral weakness or facial drooping, slurring of speech, loss of coordination, or loss of consciousness. Problem List Medical Problems: (1) Anxiety Status: Chronic (2) bunion surgery Status: Chronic (3) DM2 (diabetes mellitus, type 2) Status: Chronic (4) HLD (hyperlipidemia) Status: Chronic (5) Hypothyroidism Status: Chronic (6) Schizophrenia Status: Chronic (7) Somatization disorder Status: Chronic (8) Urinary incontinence Status: Chronic Surgical Problems: (1) H/O brain surgery Permanent Comment: abt 1970 R parietal exploration for benign lesion Status: Chronic (2) H/O cystoscopy Status: Chronic (3) H/O foot surgery Status: Chronic (4) History of cataract surgery Status: Chronic Current/Historical Medications Scheduled Aspirin (Aspirin Chewable), 81 MG PO DAILY Clozapine (Clozapine), 300 MG PO HS Clozapine (Clozapine), 50 MG PO QAM Duloxetine HCl (Duloxetine HCl), 60 MG PO DAILY Fluticasone Propionate (Nasal) (Flonase Allergy Relief), 2 SPRAYS DONI DAILY Levothyroxine Sodium (Levothyroxine Sodium), 50 MCG PO QAM Lisinopril (Lisinopril), 5 MG PO DAILY Loratadine (Claritin), 10 MG PO HS Metformin HCl (Metformin HCl), 500 MG PO BIDM Nortriptyline Hcl (Pamelor), 50 MG PO HS Omeprazole (Prilosec), 40 MG PO HS Psyllium (Psyldex), 1 PKT PO HS Ranitidine HCl (Ranitidine HCl), 150 MG PO BID Simvastatin (Simvastatin), 40 MG PO HS Solifenacin (Vesicare), 10 MG PO QPM Scheduled PRN Acetaminophen (Tylenol), 1,000 MG PO UD PRN for Pain Cyclobenzaprine Hcl (Flexeril), 10 MG PO BID PRN for Muscle Spasm Lorazepam (Ativan), 0.5 MG PO DAILY PRN for Anxiety Meclizine Hcl (Meclizine Hcl), 25 MG PO TID PRN for Dizziness or Vertigo Polyethylene (Polyethylene Glycol 3350), 17 GM PO DAILY PRN for Constipation Promethazine Hcl (Phenergan), 12.5 MG PO Q8 PRN for Nausea Rizatriptan Benzoate (Rizatriptan Benzoate), 10 MG PO UD PRN for Headache Sennosides-Docusate Sodium (Senna Plus), 1-2 TABS PO DAILY PRN for Constipation Sumatriptan Succinate (Imitrex), 100 MG PO UD PRN for Headache Allergies Coded Allergies: Cephalosporins (Verified Allergy, Unknown, 10/02/16) POLLEN (Verified Allergy, Unknown, seasonal allergy , 10/02/16) Penicillins (Verified Allergy, Unknown, unknown, 10/02/16) Vital Signs Date Time Temp Pulse Resp B/P Pulse Ox O2 Delivery O2 Flow Rate FiO2 10/07/16 20:55 37.0 79 18 186/98 100 Room Air Medications Administered Medications (Trade) Dose Ordered Sig/Artemio Route Start Time Stop Time Status Last Admin Dose Admin Ketorolac Tromethamine (Toradol Inj) 60 mg NOW STAT IM 10/07/16 21:59 10/07/16 22:01 DC 10/07/16 22:13 60 MG Departure Information Impression Primary Impression: Migraine Dispostion Home / Self-Care Condition GOOD Referrals Raymond Vann, D.O. (PCP) Patient Instructions [facility] Additional Instructions You have been treated in the Emergency Department for a Headache. For pain control, you can use the following [id number] medicines (if >12 yo): - Regular strength (325mg/tab) Tylenol (acetaminophen) 2 tabs every 4-6 hours as needed. Do not exceed 12 tablets in a 24 hour period. Avoid taking more than 4 grams (4000 mg) of Tylenol per day. This includes any other sources of acetaminophen you may take on a regular basis. - Regular strength (200 mg/tab) Advil (ibuprofen) 1-2 tabs every 4-6 hours as needed. Do not exceed a dose of 3200 mg per day. You should relax in a quiet, dark place for the rest of the day. Avoid any possible triggers including: cigarette smoke, caffeine, nicotine, chocolate, wine, beer, loud noises or music, or bright lights. You should schedule a follow-up appointment in 2-3 days with your Primary Care Provider or established Neurologist for further evaluation and treatment of your Headache. Return to the Emergency Department if your current symptoms worsen despite treatment course outlined above, or if you develop any of the following symptoms : intractable pain despite aforementioned treatment course, visual disturbances , loss of vision, unilateral weakness or facial drooping, slurring of speech, loss of coordination, or loss of consciousness. Problem Qualifiers Primary Impression: Migraine Migraine type: other Status migrainosus presence: without status migrainosus Intractability: not intractable Qualified Codes: G43.809 - Other migraine, not intractable, without status migrainosus
[2016-10-09] MEDS ORDERED: SUMA100T16 PO (16:26)
[2016-12-16] MEDS ORDERED: FLNIN/ NAE (16:34)
[2016-12-16] MEDS ORDERED: ACET-1256 PO (16:37)
[2016-12-18] MEDS ORDERED: [UNRECOGNIZED DRUG - CODE] PO (08:03)
[2016-12-18] MEDS ORDERED: LORA-741 PO (14:47)
== END 2016-10-07 22:15 | disposition home or self-care (01) ==
LOC: C.EDB 20:43 → C.EDD 22:15
DX: G43.809 Other migraine, not intractable, without status migrainosus (principal); F41.9 Anxiety disorder, unspecified; E11.9 Type 2 diabetes mellitus without complications; E78.5 Hyperlipidemia, unspecified; E03.9 Hypothyroidism, unspecified; F20.9 Schizophrenia, unspecified; F45.9 Somatoform disorder, unspecified; R32 Unspecified urinary incontinence; Z79.82 Long term (current) use of aspirin

== ENCOUNTER 2016-10-09 16:41 | Emergency (ER) | payer OTHER ==
[~2016-10-09] VITALS: Ht 165.1 cm; Wt 65.1 kg
[~2016-10-09 16:41] MED LIST changes: -ACET325T96 PO; -ASPI1TAB2 PO; -CLR10 PO; -DULO60CA44 PO; -GLC/500 PO; -LISI-729 PO; -NORT25CA PO; -POLY335019 PO; -SIMV40TA4 PO; +SUMA100T16 PO; -VSC/10 PO; -ZNTT/150 PO
[2016-10-09] MEDS ORDERED: PRLSR20 PO (16:50)
[2016-10-09 17:05] VITALS: TEMP 37.2; Ht 165.1 cm; Wt 65.1 kg
[2016-10-09] MEDS ORDERED: CLOZ100T18 PO (17:09)
[2016-10-09] MEDS ORDERED: KETOROLAC TROMETHAMINE 60 MG/2 ML VIAL IM STA (17:16)
--- NOTE | 2016-10-09 17:24 | EMERGENCY ROOM VISIT NOTE ---
ED Visit Note First contact with patient: 17:10 CHIEF COMPLAINT: Migraine headache HISTORY OF PRESENT ILLNESS: This 66-year-old female patient presented to the emergency department today with a gradual onset of a severe generalized headache that started yesterday. The patient states the migraine is similar to their typical migraines. There has been associated photophobia, phonophobia, nausea without vomiting. The patient denies fever or chills recently, and there is no weakness or numbness of the extremities. There is no difficulty with speech or vision. No trauma to the head and no neck pain. The pain is severe, constant, and it is slowly increasing in severity. The patient rates the pain as constant and 7/10. The patient has taken sumatriptan 2 which was recently prescribed by her primary care provider without relief. This is not the worst headache of the life and is similar to previous migraines. Previous imaging studies of the brain have been normal. REVIEW OF SYSTEMS: A review of systems was performed with positives and pertinent negatives listed in the history of present illness. All other systems were reviewed and are negative. ALLERGIES: Cephalosporins, penicillins MEDICATIONS: Reviewed and discussed with the patient. PMH: No pertinent past medical history. SOCIAL HISTORY: Patient is a 66-year-old female who lives locally. PHYSICAL EXAM: VITAL SIGNS - Vital signs and nursing notes were reviewed. GENERAL - 66-year-old female appearing her stated age who is in no acute distress. Communicates well with provider and answers questions appropriately. HEAD - Normocephalic, Atraumatic. No Kumar's Sign or Raccoon's Eyes. No depressed skull fractures palpable. EYES - PERRL with EOMI bilaterally. Sclera anicteric. Palpebral conjunctiva pink and moist with no injection noted. EARS - No deformities of external structures noted on gross examination bilaterally. No pain elicited with palpation of the tragus bilaterally. External auditory canals without discharge or otorrhea. Tympanic membranes pearly roman without retraction or bulging. NOSE - Midline and without cyanosis. No epistaxis or purulent drainage noted. Septum midline without deviation or septal hematoma noted. MOUTH/OROPHARYNX - Without perioral cyanosis. Buccal mucosa pink and moist and without leukoplakia. Tongue midline with equal elevation of palate bilaterally. No tonsillar hypertrophy, erythema, or exudates noted. NECK - Neck with FROM. Supple to palpation. No lymphadenopathy noted. No nuchal rigidity. LUNGS - Chest wall symmetric without accessory muscle use, intercostals retractions, or central cyanosis. Normal vesicular breath sounds CTA B/L. No wheezes, rales, or rhonchi appreciated. CARDIAC - RRR with S1/S2. No murmur, rubs, or gallops appreciated. EXTREMITIES - No pretibial edema present. +3/5 radial and dorsalis pedis pulses palpated throughout. FROM with no tremors, fasciculations, or clonus noted on PROM throughout. +5/5 strength noted in UE/LE bilaterally. NEUROLOGIC - Cranial nerves II through XII grossly intact. Sensory intact to light touch throughout. Patellar reflexes +2/4. Patient able to perform rapid alternating movements appropriately. Negative Pronator Drift. PSYCH - A&Ox3 and cooperates fully with examiner. Pt is very pleasant and interacts well with examiner. EMERGENCY DEPARTMENT COURSE: I examined the patient. The patient is on a narcotic injection per month treatment plan for their migraines. She was provided 60 mg Toradol intramuscularly for her pain. She was encouraged to follow-up with her primary care provider who recently changed her medications for her migraines. She was educated on worrisome symptoms for return visit to the emergency department. Patient discharged home in good condition. In the evaluation and treatment of this patient, the following differential diagnoses were considered: Migraine Headache, Intracranial Hemorrhage, Subdural Hematoma, Subarachnoid Hemorrhage, Cerebral Aneurysm, Temporal/Giant Cell Arteritis, Tension Headache, Meningitis, Encephalitis, or Hydrocephalus. DIAGNOSIS: Migraine headache DISCHARGE INSTRUCTIONS & TREATMENT: You have been treated in the Emergency Department for a Headache. For pain control, you can use the following [id number]-[id number] medicines (if >12 yo): - Regular strength (325mg/tab) Tylenol (acetaminophen) 2 tabs every 4-6 hours as needed. Do not exceed 12 tablets in a 24 hour period. Avoid taking more than 4 grams (4000 mg) of Tylenol per day. This includes any other sources of acetaminophen you may take on a regular basis. - Regular strength (200 mg/tab) Advil (ibuprofen) 1-2 tabs every 4-6 hours as needed. Do not exceed a dose of 3200 mg per day. You should relax in a quiet, dark place for the rest of the day. Avoid any possible triggers including: cigarette smoke, caffeine, nicotine, chocolate, wine, beer, loud noises or music, or bright lights. You should schedule a follow-up appointment in 2-3 days with your Primary Care Provider or established Neurologist for further evaluation and treatment of your Headache. Return to the Emergency Department if your current symptoms worsen despite treatment course outlined above, or if you develop any of the following symptoms : intractable pain despite aforementioned treatment course, visual disturbances , loss of vision, unilateral weakness or facial drooping, slurring of speech, loss of coordination, or loss of consciousness. Problem List Medical Problems: (1) Anxiety Status: Chronic (2) bunion surgery Status: Chronic (3) DM2 (diabetes mellitus, type 2) Status: Chronic (4) HLD (hyperlipidemia) Status: Chronic (5) Hypothyroidism Status: Chronic (6) Schizophrenia Status: Chronic (7) Somatization disorder Status: Chronic (8) Urinary incontinence Status: Chronic Surgical Problems: (1) H/O brain surgery Permanent Comment: abt 1970 R parietal exploration for benign lesion Status: Chronic (2) H/O cystoscopy Status: Chronic (3) H/O foot surgery Status: Chronic (4) History of cataract surgery Status: Chronic Current/Historical Medications Scheduled Aspirin (Aspirin Chewable), 81 MG PO DAILY Clozapine (Clozapine), 300 MG PO HS Clozapine (Clozapine), 50 MG PO QAM Duloxetine HCl (Duloxetine HCl), 60 MG PO DAILY Fluticasone Propionate (Nasal) (Flonase Allergy Relief), 2 SPRAYS DONI DAILY Levothyroxine Sodium (Levothyroxine Sodium), 50 MCG PO QAM Lisinopril (Lisinopril), 5 MG PO DAILY Loratadine (Claritin), 10 MG PO HS Metformin HCl (Metformin HCl), 500 MG PO BIDM Nortriptyline Hcl (Pamelor), 50 MG PO HS Omeprazole (Prilosec), 40 MG PO HS Psyllium (Psyldex), 1 PKT PO HS Ranitidine HCl (Ranitidine HCl), 150 MG PO BID Simvastatin (Simvastatin), 40 MG PO HS Solifenacin (Vesicare), 10 MG PO QPM Scheduled PRN Acetaminophen (Tylenol), 1,000 MG PO UD PRN for Pain Cyclobenzaprine Hcl (Flexeril), 10 MG PO BID PRN for Muscle Spasm Lorazepam (Ativan), 0.5 MG PO DAILY PRN for Anxiety Meclizine Hcl (Meclizine Hcl), 25 MG PO TID PRN for Dizziness or Vertigo Polyethylene (Polyethylene Glycol 3350), 17 GM PO DAILY PRN for Constipation Promethazine Hcl (Phenergan), 12.5 MG PO Q8 PRN for Nausea Rizatriptan Benzoate (Rizatriptan Benzoate), 10 MG PO UD PRN for Headache Sennosides-Docusate Sodium (Senna Plus), 1-2 TABS PO DAILY PRN for Constipation Sumatriptan Succinate (Imitrex), 100 MG PO UD PRN for Headache Allergies Coded Allergies: Cephalosporins (Verified Allergy, Unknown, 10/02/16) POLLEN (Verified Allergy, Unknown, seasonal allergy , 10/02/16) Penicillins (Verified Allergy, Unknown, unknown, 10/02/16) Vital Signs Date Time Temp Pulse Resp B/P Pulse Ox O2 Delivery O2 Flow Rate FiO2 10/09/16 17:29 78 18 154/85 98 10/09/16 17:05 37.2 81 18 162/73 100 Room Air Medications Administered Medications (Trade) Dose Ordered Sig/Artemio Route Start Time Stop Time Status Last Admin Dose Admin Ketorolac Tromethamine (Toradol Inj) 60 mg NOW STAT IM 10/09/16 17:16 10/09/16 17:17 DC 10/09/16 17:22 60 MG Departure Information Impression Primary Impression: Migraine Dispostion Home / Self-Care Condition GOOD Referrals Raymond Vann, D.O. (PCP) Patient Instructions [facility] Additional Instructions You have been treated in the Emergency Department for a Headache. For pain control, you can use the following fhyi-eey-carjthm medicines (if >12 yo): - Regular strength (325mg/tab) Tylenol (acetaminophen) 2 tabs every 4-6 hours as needed. Do not exceed 12 tablets in a 24 hour period. Avoid taking more than 4 grams (4000 mg) of Tylenol per day. This includes any other sources of acetaminophen you may take on a regular basis. - Regular strength (200 mg/tab) Advil (ibuprofen) 1-2 tabs every 4-6 hours as needed. Do not exceed a dose of 3200 mg per day. You should relax in a quiet, dark place for the rest of the day. Avoid any possible triggers including: cigarette smoke, caffeine, nicotine, chocolate, wine, beer, loud noises or music, or bright lights. You should schedule a follow-up appointment in 2-3 days with your Primary Care Provider or established Neurologist for further evaluation and treatment of your Headache. Return to the Emergency Department if your current symptoms worsen despite treatment course outlined above, or if you develop any of the following symptoms : intractable pain despite aforementioned treatment course, visual disturbances , loss of vision, unilateral weakness or facial drooping, slurring of speech, loss of coordination, or loss of consciousness. Problem Qualifiers Primary Impression: Migraine Migraine type: unspecified Status migrainosus presence: without status migrainosus Intractability: not intractable Qualified Codes: G43.909 - Migraine, unspecified, not intractable, without status migrainosus
[2016-10-09 17:29] VITALS: BP 154/85; PULSE 78; O2SAT 98
[2016-12-16] MEDS ORDERED: FLNIN/ NAE (16:34)
[2016-12-16] MEDS ORDERED: ACET-1256 PO (16:37)
[2016-12-18] MEDS ORDERED: [UNRECOGNIZED DRUG - CODE] PO (08:03)
[2016-12-18] MEDS ORDERED: LORA-741 PO (14:47)
== END 2016-10-09 17:30 | disposition home or self-care (01) ==
LOC: C.EDB 16:42 → C.EDD 17:30
DX: G43.909 Migraine, unspecified, not intractable, without status migrainosus (principal); F20.9 Schizophrenia, unspecified; F41.9 Anxiety disorder, unspecified; E11.9 Type 2 diabetes mellitus without complications; E03.9 Hypothyroidism, unspecified; Z79.82 Long term (current) use of aspirin

== ENCOUNTER 2016-10-14 10:32 | Emergency (ER) | payer OTHER ==
[~2016-10-14 10:32] MED LIST changes: +CLOZ100T18 PO; +PRLSR20 PO
[2016-10-14 11:53] LABS: HEMATOCRIT 32.1 % (37-47); MEAN CELL VOLUME 86.8 fL (80-100); MEAN CORPUSCULAR HEMOGLOBIN 29.7 pg (25-34); MEAN CORPUSCULAR HGB CONC 34.3 g/dl (32-36); MEAN PLATELET VOLUME 9.8 fL (7.4-10.4); PLATELET COUNT 175 K/uL (130-400); WHITE BLOOD COUNT 9.34 K/uL (4.8-10.8)
[2016-10-14 11:58] LABS: MANUAL MICROSCOPIC REQUIRED? NO; REVIEW REQ? NO; URINE APPEARANCE CLEAR (CLEAR); URINE BILIRUBIN NEG (NEG); URINE COLOR YELLOW; URINE NITRITE NEG (NEG); URINE PH 5.5 (4.5-7.5); URINE SPECIFIC GRAVITY 1.021 (1.000-1.030); UROBILINOGEN NEG (NEG)
[2016-10-14 12:14] LABS: BASO % 0.2 %; BASO ABS # 0.02 K/uL (0-0.2); COMPLETE YES; IG% 0.1 %; LYMPH % 10.1 %; LYMPH ABS # 0.94 K/uL (1.2-3.4); MONO % 6.5 %; NEUT % 83.1 %
[2016-10-14 12:19] LABS: ALT/SGPT 25 U/L (12-78); AST/SGOT 15 U/L (15-37); BLOOD UREA NITROGEN 16 mg/dl (7-18); BUN/CREATININE RATIO 20.3 (10-20); CALCIUM 8.7 mg/dl (8.5-10.1); CARBON DIOXIDE 30 mmol/L (21-32); CHLORIDE 102 mmol/L (98-107); GLUCOSE 123 mg/dl (70-99); POTASSIUM 3.9 mmol/L (3.5-5.1); SODIUM 138 mmol/L (136-145)
[2016-10-14 12:21] LABS: ALKALINE PHOSPHATASE 81 U/L (45-117)
--- NOTE | 2016-10-14 14:08 | EMERGENCY ROOM VISIT NOTE ---
ED Visit Note First contact with patient: 11:05 66-year-old female with questionable medication reaction was fully evaluated Philip Doe PA-C. Please see his note. I also independently evaluated the patient. The patient does not appear to have had an allergic reaction or significant medication reaction. The patient will follow-up with her family physician.
[2016-10-14 14:58] VITALS: BP 158/87; PULSE 76; O2SAT 100
--- NOTE | 2016-10-15 06:34 | EMERGENCY ROOM VISIT NOTE ---
ED Visit Note First contact with patient: 11:05 Chief Complaint: Drug reaction. History of Present Illness: Ms. Deutsch is a 66-year-old female who is brought into the ED the ambulance complaining of a possible drug reaction to Toradol. Historically patient has a history of chronic pain issues. She does receive injections of Toradol for some of her pain issues when she comes into the emergency department. Her PCP has recently started her on oral Toradol for her pain. Patient reports approximately 3 hours before she arrived in the emergency department she took her oral Toradol for the first time and reports within 2-3 minutes of taking the medication she started having numbness and tingling over her face, chest, abdomen and extremities. She has not identified any aggravating or alleviating factors related to this issue. She has not taken any additional medications for this symptoms prior to arrival at the hospital. She reports she's never had these types of symptoms with her injectable Toradol. Associated with the symptoms she also reports she is still having neck pain and difficulty speaking. She denies recent fevers, chills, sweats, skin eruptions, skin color changes, upper respiratory tract symptoms, cough, wheezing, shortness of breath, sensations of throat swelling, voice changes, headaches, dizziness, chest pain, palpitations, abdominal pain, nausea, vomiting, extremity weakness/numbness. Review of Systems: As noted above in history of present illness. All body systems were reviewed and found to be negative as noted above. Past Medical History: (1) Anxiety (2) Blurred vision (3) bunion surgery (4) DM2 (diabetes mellitus, type 2) (5) HLD (hyperlipidemia) (6) Hypothyroidism (7) Schizophrenia (8) Somatization disorder (9) Urinary incontinence Surgical Problems: (1) H/O brain surgery (2) H/O cystoscopy (3) H/O foot surgery (4) History of cataract surgery Current Medications: Medications Dose Route/Sig Max Daily Dose Days Date Category Dose Instructions Aspirin Chewable (Aspirin) 81 Mg Chew 81 Mg PO DAILY 10/02/16 Reported Tylenol (Acetaminophen) 500 Mg Tab 1,000 Mg PO UD PRN 10/02/16 Reported Ranitidine HCl 150 Mg Tab 150 Mg PO BID 09/27/16 Reported Simvastatin 40 Mg Tab 40 Mg PO HS 09/27/16 Reported Vesicare (Solifenacin) 10 Mg Tab 10 Mg PO QPM 09/27/16 Reported Rizatriptan Benzoate 10 Mg Tab 10 Mg PO UD PRN 09/27/16 Reported TAKE ONE TABLET AT ONSET OF HEADACHE, MAY REPEAT AFTER 2 HOURS IF NEEDED. MAXIMUM 3 TABLETS IN 24 HOURS. Polyethylene Glycol 3350 (Polyethylene) 527 Gm Soln 17 Gm PO DAILY PRN 09/27/16 Reported Claritin (Loratadine) 10 Mg Tab 10 Mg PO HS 09/27/16 Reported Pamelor (Nortriptyline Hcl) 25 Mg Cap 50 Mg PO HS 09/27/16 Reported Metformin HCl 500 Mg Tab 500 Mg PO BIDM 09/27/16 Reported TAKE THIS MEDICATION WITH MORNING AND EVENING MEALS Duloxetine HCl 60 Mg Cap 60 Mg PO DAILY 09/27/16 Reported Lisinopril 5 Mg Tab 5 Mg PO DAILY 09/27/16 Reported Psyldex (Psyllium) 30 % Pow 1 Pkt PO HS 07/25/16 Reported Clozapine 25 Mg Tab 50 Mg PO QAM 08/05/15 Reported Senna Plus (Sennosides-Docusate Sodium) 1 Tab Tab 1-2 Tabs PO DAILY PRN 08/05/15 Reported HOLD FOR LOOSE OR WATERY STOOLS Clozapine 100 Mg Tab 300 Mg PO HS 07/31/15 Reported Phenergan (Promethazine HCl) 25 Mg Tab 12.5 Mg PO Q8 PRN 07/31/15 Reported Meclizine Hcl 25 Mg Tab 25 Mg PO TID PRN 07/31/15 Reported Flexeril (Cyclobenzaprine Hcl) 10 Mg Tab 10 Mg PO BID PRN 07/31/15 Reported Prilosec (Omeprazole) 20 Mg Capcr 40 Mg PO HS 07/31/15 Reported Levothyroxine Sodium 50 Mcg Tab 50 Mcg PO QAM 07/31/15 Reported TAKE THIS MEDICATION AT LEAST 30 MINUTES BEFORE BREAKFAST. Flonase Allergy Relief (Fluticasone Propionate (Nasal)) 50 Mcg/Act Spr 2 Sprays DONI DAILY 07/31/15 Reported Imitrex (Sumatriptan Succinate) 100 Mg Tab 100 Mg PO UD PRN 07/31/15 Reported TAKE THIS MEDICATION AT ONSET OF HEADACHE, MAY REPEAT IN 2 HOURS IF NOT EFFECTIVE. TAKE NO MORE THAT 2 TABLETS IN 24 HOURS OR 4 TABLETS IN ONE WEEK. Ativan (Lorazepam) 0.5 Mg Tab 0.5 Mg PO DAILY PRN 12/20/13 Reported Allergies to Medications: Cephalosporins, Ultram, penicillins. Social History: Patient is not employed; she feels safe in her home environment ; she denies tobacco use. Physical Examination: Vital Signs: Date Time Temp Pulse Resp B/P Pulse Ox O2 Delivery O2 Flow Rate FiO2 10/14/16 14:58 76 20 158/87 100 10/14/16 12:52 74 20 160/97 100 Room Air 10/14/16 10:56 79 10/14/16 10:34 80 20 139/79 99 Room Air GENERAL: 66-year-old female in no acute distress, nontoxic-appearing, afebrile and hemodynamically stable. NEUROLOGICAL: Awake, alert and oriented to person, place and time. Answering questions appropriately and following commands. Normal gait. Good hand eye coordination. No focal motor sensory deficits. Cranial nerves II through XII grossly intact. Romberg test negative. Pronator drift is negative. SKIN: Warm, dry and pink. No soft tissue eruptions or trauma noted. HEENT: Atraumatic and normocephalic. No facial droop. PERRLA. Sclera white and conjunctiva pink. Airway is patent. Uvula is midline. Speech clear and exact. No lymphadenopathy. Trachea midline. No jugular venous distention. BACK: No tenderness over the bony cervical, thoracic and lumbar spine. Full range of motion of the cervical spine. No CVA tenderness. THORAX: Lungs sounds are clear to auscultation and equal bilaterally with symmetrical chest wall. No wheezing, rales or rhonchi. HEART: Regular rate and rhythm. No gallops, rubs or murmurs are appreciated. ABDOMEN: Flat, soft and nontender. Positive bowel sounds in all quadrants. No guarding, rigidity or organomegaly. EXTREMITIES: Moves all extremities well on command and with purpose. All distal neurovascular statuses are intact and equal bilaterally. 4/5 muscle strength in all movements of the upper and lower extremity joints. ED Course: Patient is assessed as noted above. Laboratory Testing: Test 10/14/16 11:40 Range/Units White Blood Count 9.34 4.8-10.8 K/uL Red Blood Count 3.70 4.2-5.4 M/uL Hemoglobin 11.0 12.0-16.0 g/dL Hematocrit 32.1 37-47 % Mean Corpuscular Volume 86.8 80-100 fL Mean Corpuscular Hemoglobin 29.7 25-34 pg Mean Corpuscular Hemoglobin Concent 34.3 32-36 g/dl Platelet Count 175 130-400 K/uL Mean Platelet Volume 9.8 7.4-10.4 fL Neutrophils (%) (Auto) 83.1 % Lymphocytes (%) (Auto) 10.1 % Monocytes (%) (Auto) 6.5 % Eosinophils (%) (Auto) 0.0 % Basophils (%) (Auto) 0.2 % Neutrophils # (Auto) 7.76 1.4-6.5 K/uL Lymphocytes # (Auto) 0.94 1.2-3.4 K/uL Monocytes # (Auto) 0.61 0.11-0.59 K/uL Eosinophils # (Auto) 0.00 0-0.5 K/uL Basophils # (Auto) 0.02 0-0.2 K/uL RDW Standard Deviation 46.2 36.4-46.3 fL RDW Coefficient of Variation 14.5 11.5-14.5 % Immature Granulocyte % (Auto) 0.1 % Immature Granulocyte # (Auto) 0.01 0.00-0.02 K/uL Urine Color YELLOW Urine Appearance CLEAR CLEAR Urine pH 5.5 4.5-7.5 Urine Specific [place] 1.021 1.000-1.030 Urine Protein NEG NEG Urine Glucose (UA) NEG NEG Urine Ketones NEG NEG Urine Occult Blood NEG NEG Urine Nitrite NEG NEG Urine Bilirubin NEG NEG Urine Urobilinogen NEG NEG Urine Leukocyte Esterase TRACE NEG Urine WBC (Auto) 1-5 0-5 /hpf Urine RBC (Auto) 0-4 0-4 /hpf Urine Hyaline Casts (Auto) 0 0-5 /lpf Urine Epithelial Cells (Auto) 10-20 0-5 /lpf Urine Bacteria (Auto) NEG NEG Sodium Level 138 136-145 mmol/L Potassium Level 3.9 3.5-5.1 mmol/L Chloride Level 102 98-107 mmol/L Carbon Dioxide Level 30 21-32 mmol/L Anion Gap 6.0 3-11 mmol/L Blood Urea Nitrogen 16 7-18 mg/dl Creatinine 0.80 0.60-1.20 mg/dl Estimated GFR () 88.4 Estimated GFR (Non- 76.3 BUN/Creatinine Ratio 20.3 10-20 Random Glucose 123 70-99 mg/dl Calcium Level 8.7 8.5-10.1 mg/dl Total Bilirubin 0.4 0.2-1 mg/dl Direct Bilirubin 0.1 0-0.2 mg/dl Aspartate Amino Transf (AST/SGOT) 15 15-37 U/L Alanine Aminotransferase (ALT/SGPT) 25 12-78 U/L Alkaline Phosphatase 81 45-117 U/L Total Protein 6.5 6.4-8.2 gm/dl Albumin 3.8 3.4-5.0 gm/dl Patient was reassessed multiple times during her stay in the emergency department. I did speak with case management because of the patient's ongoing recent visits for her chronic medical problems. It was decided between her PCPs case management in the emergency department that she should come to the emergency for acute problems but all her chronic problems should be evaluated through her PCP. Patient's case was reviewed with Dr. Brannon; he independently assessed the patient we agreed on diagnostic approach, treatment, disposition and plan. Patient was educated about tonight's findings and instructed on her treatment plan; she verbalizes understanding and agreement with this plan. Clinical Impression: Questionable medication reaction to Toradol. Decision-Making: Initially my differential diagnosis I did consider medication reaction, TIA versus CVA, electrolyte abnormalities, metabolic disturbance, new onset of infection, anxiety exacerbation and other causes. Disposition: Patient discharged home in stable condition; prior to departure and subjectively reported she was feeling better; she reports resolution of her numbness and tingling sensation but does still report she is having mild neck pain. Plan: Patient was encouraged to stop her Toradol until she can follow-up with her family physician. Patient was encouraged to continue her current other medications as prescribed. Patient was encouraged to use 650 mg of acetaminophen every 6 hours as needed for pain. Patient was encouraged to call her PCPs office for follow-up care and treatment ; she also agreed to use her PCP as her immediate contact for her ongoing chronic problems. Patient was educated on signs of allergic reaction including sensations of throat swelling, shortness of breath/wheezing and skin eruptions and was encouraged return to the ED for signs of allergic reactions or any new/ concerning symptoms.
[2016-12-16] MEDS ORDERED: FLNIN/ NAE (16:34)
[2016-12-16] MEDS ORDERED: ACET-1256 PO (16:37)
[2016-12-18] MEDS ORDERED: [UNRECOGNIZED DRUG - CODE] PO (08:03)
[2016-12-18] MEDS ORDERED: LORA-741 PO (14:47)
== END 2016-10-14 15:00 | disposition home or self-care (01) ==
LOC: EDBD 10:32 → C.EDB 10:33
DX: R20.0 Anesthesia of skin (principal); F41.9 Anxiety disorder, unspecified; E11.9 Type 2 diabetes mellitus without complications; E78.5 Hyperlipidemia, unspecified; E03.9 Hypothyroidism, unspecified; F20.9 Schizophrenia, unspecified; F45.0 Somatization disorder; Z79.82 Long term (current) use of aspirin; Z79.899 Other long term (current) drug therapy

== ENCOUNTER 2016-10-21 15:22 | Emergency (ER) | payer OTHER ==
[~2016-10-21] VITALS: Ht 152.4 cm; Wt 65.4 kg
[2016-10-21 15:36] VITALS: TEMP 37.2; Ht 152.4 cm; Wt 65.4 kg
[2016-10-21] MEDS ORDERED: PROCHLORPERAZINE 5 MG/ML 2 ML VIAL IM STA (15:36)
[2016-10-21] MEDS ORDERED: DiphenhydrAMINE HCL 50 MG/ML VIAL IM STA (15:36)
[2016-10-21] MEDS ORDERED: CLZ100 PO (16:26)
[2016-10-21] MEDS ORDERED: SODIUM CHLORIDE 0.9% 500ML 500 ML IV STA (16:42)
[2016-10-21 16:59] LABS: BASO % 0.5 %; BASO ABS # 0.04 K/uL (0-0.2); COMPLETE YES; HEMATOCRIT 32.5 % (37-47); IG% 0.1 %; LYMPH ABS # 1.69 K/uL (1.2-3.4); MEAN CELL VOLUME 89.8 fL (80-100); MEAN CORPUSCULAR HEMOGLOBIN 29.6 pg (25-34); MEAN CORPUSCULAR HGB CONC 32.9 g/dl (32-36); MEAN PLATELET VOLUME 9.7 fL (7.4-10.4); MONO % 9.6 %; NEUT % 68.8 %; PLATELET COUNT 201 K/uL (130-400); RED BLOOD COUNT 3.62 M/uL (4.2-5.4); WHITE BLOOD COUNT 8.06 K/uL (4.8-10.8)
[2016-10-21 17:14] LABS: BUN/CREATININE RATIO 21.9 (10-20); CALCIUM 8.3 mg/dl (8.5-10.1); CREATININE 0.81 mg/dl (0.60-1.20); POTASSIUM 4.2 mmol/L (3.5-5.1)
[2016-10-21 18:49] LABS: URINE APPEARANCE CLEAR (CLEAR); URINE BILIRUBIN NEG (NEG); URINE COLOR YELLOW; URINE NITRITE NEG (NEG); URINE SPECIFIC GRAVITY 1.009 (1.000-1.030); UROBILINOGEN NEG (NEG)
[2016-10-21 19:04] LABS: MANUAL MICROSCOPIC REQUIRED? NO; REVIEW REQ? NO
[2016-10-21 19:25] VITALS: BP 142/97; PULSE 76; O2SAT 99
--- NOTE | 2016-10-21 19:54 | EMERGENCY ROOM VISIT NOTE ---
History Report prepared by Ammy: Joo Hernandez Under the Supervision of: Dr. Brian Johnson M.D. First contact with patient: 15:29 Stated Complaint: AB PAIN History of Present Illness The patient is a 66 year old female who presents to the Emergency Room with complaints of constant headache beginning yesterday. She states that her pain radiates into her neck. She states that the pain is throughout her entire head. The patient has a history of migraines and states that her current headache feels like a typical migraine. She denies any diarrhea, nausea, vomiting, or weakness. She also complains of difficulty with urination for the past several days. The patient notes that she had some abdominal pain about a week ago, but her pain has since completely resolved. Source of History: patient Onset: Yesterday Position: head (entire head) Timing: constant Modifying Factors (Relieving): other (none) Associated Symptoms: + abdominal pain (resolved), + urinary symptoms ( difficulty urinating), No diarrhea, No fevers, No nausea, No vomiting, No weakness Review of Systems See HPI for pertinent positives & negatives. A total of 10 systems reviewed and were otherwise negative. Past Medical & Surgical Medical Problems: (1) Anxiety (2) Blurred vision (3) bunion surgery (4) DM2 (diabetes mellitus, type 2) (5) HLD (hyperlipidemia) (6) Hypothyroidism (7) Schizophrenia (8) Somatization disorder (9) Urinary incontinence Surgical Problems: (1) H/O brain surgery (2) H/O cystoscopy (3) H/O foot surgery (4) History of cataract surgery Family History Cancer Diabetes mellitus Heart disease Seizures Social History Smoking Status: Never Smoker Alcohol Use: none Drug Use: none Marital Status: single Housing Status: lives alone Occupation Status: retired Current/Historical Medications Scheduled Aspirin (Aspirin Chewable), 81 MG PO DAILY Clozapine (Clozapine), 50 MG PO QAM Clozapine (Clozapine), 300 MG PO HS Duloxetine HCl (Duloxetine HCl), 60 MG PO DAILY Fluticasone Propionate (Fluticasone Propionate), 2 SPRAYS DONI DAILY Fluticasone Propionate (Nasal) (Flonase Allergy Relief), 2 SPRAYS DONI DAILY Levothyroxine Sodium (Levothyroxine Sodium), 50 MCG PO QAM Lisinopril (Lisinopril), 5 MG PO DAILY Loratadine (Claritin), 10 MG PO HS Metformin HCl (Metformin HCl), 500 MG PO BIDM Nortriptyline Hcl (Pamelor), 50 MG PO HS Omeprazole (Prilosec), 40 MG PO HS Psyllium (Psyldex), 1 PKT PO HS Ranitidine HCl (Ranitidine HCl), 150 MG PO BID Simvastatin (Simvastatin), 40 MG PO HS Solifenacin (Vesicare), 10 MG PO QPM Scheduled PRN Acetaminophen (Tylenol), 1,000 MG PO UD PRN for Pain Cyclobenzaprine Hcl (Flexeril), 10 MG PO BID PRN for Muscle Spasm Ketorolac Tromethamine (Ketorolac Tromethamine), 10 MG PO UD PRN for Headache Lorazepam (Ativan), 0.5 MG PO DAILY PRN for Anxiety Meclizine Hcl (Meclizine Hcl), 25 MG PO TID PRN for Dizziness or Vertigo Polyethylene (Polyethylene Glycol 3350), 17 GM PO DAILY PRN for Constipation Promethazine Hcl (Phenergan), 12.5 MG PO Q8 PRN for Nausea Rizatriptan Benzoate (Rizatriptan Benzoate), 10 MG PO UD PRN for Headache Sennosides-Docusate Sodium (Senna Plus), 1-2 TABS PO DAILY PRN for Constipation Sumatriptan Succinate (Imitrex), 100 MG PO UD PRN for Headache Allergies Coded Allergies: Cephalosporins (Verified Allergy, Unknown, 10/14/16) POLLEN (Verified Allergy, Unknown, seasonal allergy , 10/14/16) Penicillins (Verified Allergy, Unknown, unknown, 10/14/16) Ketorolac Tromethamine (Unverified Adverse Reaction, Intermediate, NUMBNESS,TINGLING,DIFFICULTY WITH SPEECH, 10/14/16) Physical Exam Vital Signs Date Time Temp Pulse Resp B/P Pulse Ox O2 Delivery O2 Flow Rate FiO2 10/21/16 19:25 76 16 142/97 99 10/21/16 16:30 76 20 128/70 99 10/21/16 15:36 37.2 83 18 126/59 98 Room Air Physical Exam Constitutional: Vital signs reviewed. Eyes: Pupils are equal round reactive to light. Conjunctiva are noninjected. ENT: Pharynx is clear without erythema or exudate. Mucous membranes are moist. Neck supple without meningeal signs. Respiratory: Clear to auscultation bilaterally. Breath sounds are equal bilaterally. Cardiovascular: Regular rate and rhythm. No rubs or gallops. GI: Soft, nondistended and nontender. Bowel sounds are present. Musculoskeletal: No peripheral edema. No CVA tenderness. Integumentary: No cyanosis. Neurologic: The patient is awake and alert. Cranial nerves II-XII are intact. Motor is 5 out of 5 all extremities. Sensation is intact to light touch all extremities. Normal speech. No pronator drift. Psychiatric: Normal affect. Medical Decision & Procedures Laboratory Results 10/21/16 16:45 Red Blood Count 3.62, Mean Corpuscular Volume 89.8, Mean Corpuscular Hemoglobin 29.6, Mean Corpuscular Hemoglobin Concent 32.9, Mean Platelet Volume 9.7, Neutrophils (%) (Auto) 68.8, Lymphocytes (%) (Auto) 21.0, Monocytes (%) (Auto) 9.6, Eosinophils (%) (Auto) 0.0, Basophils (%) (Auto) 0.5, Neutrophils # (Auto) 5.55, Lymphocytes # (Auto) 1.69, Monocytes # (Auto) 0.77, Eosinophils # (Auto) 0.00, Basophils # (Auto) 0.04 10/21/16 16:45 Test 10/21/16 16:45 10/21/16 18:40 White Blood Count 8.06 K/uL (4.8-10.8) Red Blood Count 3.62 M/uL (4.2-5.4) Hemoglobin 10.7 g/dL (12.0-16.0) Hematocrit 32.5 % (37-47) Mean Corpuscular Volume 89.8 fL (80-100) Mean Corpuscular Hemoglobin 29.6 pg (25-34) Mean Corpuscular Hemoglobin Concent 32.9 g/dl (32-36) Platelet Count 201 K/uL (130-400) Mean Platelet Volume 9.7 fL (7.4-10.4) Neutrophils (%) (Auto) 68.8 % Lymphocytes (%) (Auto) 21.0 % Monocytes (%) (Auto) 9.6 % Eosinophils (%) (Auto) 0.0 % Basophils (%) (Auto) 0.5 % Neutrophils # (Auto) 5.55 K/uL (1.4-6.5) Lymphocytes # (Auto) 1.69 K/uL (1.2-3.4) Monocytes # (Auto) 0.77 K/uL (0.11-0.59) Eosinophils # (Auto) 0.00 K/uL (0-0.5) Basophils # (Auto) 0.04 K/uL (0-0.2) RDW Standard Deviation 47.2 fL (36.4-46.3) RDW Coefficient of Variation 14.3 % (11.5-14.5) Immature Granulocyte % (Auto) 0.1 % Immature Granulocyte # (Auto) 0.01 K/uL (0.00-0.02) Anion Gap 7.0 mmol/L (3-11) Est Creatinine Clear Calc Drug Dose 56.9 ml/min Estimated GFR () 87.1 Estimated GFR (Non- 75.2 BUN/Creatinine Ratio 21.9 (10-20) Calcium Level 8.3 mg/dl (8.5-10.1) Urine Color YELLOW Urine Appearance CLEAR (CLEAR) Urine pH 6.0 (4.5-7.5) Urine Specific [place] 1.009 (1.000-1.030) Urine Protein NEG (NEG) Urine Glucose (UA) NEG (NEG) Urine Ketones NEG (NEG) Urine Occult Blood NEG (NEG) Urine Nitrite NEG (NEG) Urine Bilirubin NEG (NEG) Urine Urobilinogen NEG (NEG) Urine Leukocyte Esterase NEG (NEG) Laboratory results as reviewed by me. Medications Administered Medications (Trade) Dose Ordered Sig/Artemio Route Start Time Stop Time Status Last Admin Dose Admin Prochlorperazine Edisylate (Compazine Inj) 10 mg NOW STAT IM 10/21/16 15:36 10/21/16 15:38 DC 10/21/16 15:47 10 MG Diphenhydramine HCl 50 mg 50 mg ONE STAT IM 10/21/16 15:36 10/21/16 15:38 DC 10/21/16 15:47 50 MG Sodium Chloride (Nss 500ml) 500 ml @ 999 mls/hr Q31M STAT IV 10/21/16 16:42 10/21/16 17:12 DC 10/21/16 17:28 999 MLS/HR ED Course 1530: The patient was evaluated in room B5. A complete history and physical exam was performed. 1536: Ordered Benadryl Inj 50 mg IM, Compazine In 10 mg IM. 1603: The patient was unable to give a urine sample. Nursing staff will conduct a bladder scan. 1642: The bladder scan revealed 0 cc of urine. Ordered Sodium Chloride 500 ml @ 999 mls/hr IV. 1806: I spoke with the patient. We discussed her test results. She verbalized agreement and understanding. 1845: I reassessed the patient. She has urinated and will be discharged after the results return. The patient verbalized agreement and understanding of the treatment plan. 191: The patient was discharged home. Medical Decision This is a 66-year-old female presents with a headache and urinary symptoms. Differential diagnosis includes migraine headache, tension headache, UTI, urinary retention. I did perform a limited focused review of portions of the patient's old chart on the electronic medical record. She was seen here on the for a drug reaction from Toradol. She had expressed numbness and tingling over her entire body. She was discharged after evaluation. The patient was seen in the ED three times in the past month for headaches. She is seen frequently with this complaint. She had a negative head CT on September 27. I did evaluate the patient as noted above. The patient has a long-standing history of chronic headaches. She is presenting with a headache similar to her prior headaches. She is neurologically intact. She is afebrile. She denies any head injury. I did treat her with Compazine and Benadryl IM. She also complained of urinary symptoms and so we did ask for urine specimen. She was unable to give us one and so we did a bladder scan which was negative for any urine. IV access was established. I did treat her with normal saline IV. I did order and personally review the patient's urinalysis as described above. There is no evidence of infection. A urine culture was sent. I did order and review the patient's blood work as noted in the electronic medical record. Her renal function is normal. She has chronic anemia. I did discuss the test results with the patient. I did recommend follow up with her doctor. She was discharged in good condition. Impression Primary Impression: Headache Additional Impressions: Dysuria Anemia Scribe Attestation The scribe's documentation has been prepared under my direct and personally reviewed by me in its entirety. I confirm that the note above accurately reflects all work, treatment, procedures, and medical decision making performed by me. Departure Information Dispostion Home / Self-Care Referrals Raymond Vann D.O. (PCP) Forms HOME CARE DOCUMENTATION FORM, IMPORTANT VISIT INFORMATION Patient Instructions ED Dysuria Uncertain Cause, ED Headache Migraine, My [facility] Additional Instructions You have been examined and treated today on an emergency basis only. This is not a substitute for, or an effort to provide, complete comprehensive medical care. It is impossible to recognize and treat all injuries or illnesses in a single emergency department visit. It is therefore important that you follow up closely with your physician. Call as soon as possible for an appointment. Return for worsening symptoms or if you develop fever, abdominal pain, vomiting , numbness or weakness on one side of your body, difficulties with your speech or walking, or any other concerning symptoms. Problem Qualifiers Primary Impression: Headache Headache type: unspecified Headache chronicity pattern: chronic headache Intractability: not intractable Qualified Codes: R51 - Headache Additional Impressions: Anemia Anemia type: unspecified type Qualified Codes: D64.9 - Anemia, unspecified
[2016-12-16] MEDS ORDERED: FLNIN/ NAE (16:34)
[2016-12-16] MEDS ORDERED: ACET-1256 PO (16:37)
[2016-12-18] MEDS ORDERED: [UNRECOGNIZED DRUG - CODE] PO (08:03)
[2016-12-18] MEDS ORDERED: LORA-741 PO (14:47)
== END 2016-10-21 19:26 | disposition home or self-care (01) ==
LOC: EDBD 15:22 → C.EDB 15:23
DX: R51 Headache (principal); R30.0 Dysuria; D64.9 Anemia, unspecified; E11.9 Type 2 diabetes mellitus without complications; E78.5 Hyperlipidemia, unspecified; E03.9 Hypothyroidism, unspecified; F20.9 Schizophrenia, unspecified; Z79.899 Other long term (current) drug therapy

== ENCOUNTER 2016-12-16 22:05 | Emergency (ER) | payer OTHER ==
[~2016-12-16] VITALS: Ht 165.1 cm; Wt 61.0 kg
[~2016-12-16 22:05] MED LIST changes: +ACET-1256 PO; -CLOZ100T18 PO; +CLZ100 PO; +FLNIN/ NAE; -PRLSR20 PO; -SUMA100T16 PO
[2016-12-16 22:14] VITALS: TEMP 36.7; Ht 165.1 cm; Wt 61.0 kg
[2016-12-16] MEDS ORDERED: SODIUM CHLORIDE 0.9% 1000ML 1,000 ML IV STA (22:32)
[2016-12-16] MEDS ORDERED: SODIUM CHLORIDE 0.9% 1000ML 250 ML IV STA (22:32)
--- NOTE | 2016-12-16 22:55 | EMERGENCY ROOM VISIT NOTE ---
History Report prepared by Ammy: Brigido Jo Under the Supervision of: Dr. Alpesh Moser M.D. First contact with patient: 22:23 Chief Complaint: OVERDOSE (ACCIDENTAL) Stated Complaint: WEAKNESS, OVERDOSE Nursing Triage Summary: Patient arrived via EMS. EMS reports patient takes tylenol every 6 hours for pain control. Patient accidentaly took tylenol four hours after her previous dose. Patient developed generalized weakness and a headache after taking tylenol. History of Present Illness The patient is a 66 year old female who presents to the Emergency Room after an accidental overdose that occurred prior to arrival. The patient states that she typically takes 1000mg of Tylenol extra strength every 6 hours, three time a day , but she took the last dose two hours early. She reports that it was on accident, and now she feels weak. He did not take any extra medications but just took the one dose early. The patient notes that she did not take any other medications that contain Tylenol. She states that she just started taking ketorolac. The patient denies fever, vomiting, chest pain, abdominal pain, bloody stools, urinary symptoms, and feeling sick before this. She denies any thoughts of hurting herself or others. Source of History: patient, nursing staff Onset: prior to arrival Position: other Quality: other (accidental overdose) Associated Symptoms: + weakness, No fevers, No chest pain, No vomiting, No abdominal pain Note: The patient denies bloody stools, urinary symptoms, and feeling sick before this. Review of Systems See HPI for pertinent positives & negatives. A total of 10 systems reviewed and were otherwise negative. Past Medical & Surgical Medical Problems: (1) Anxiety (2) Blurred vision (3) bunion surgery (4) DM2 (diabetes mellitus, type 2) (5) HLD (hyperlipidemia) (6) Hypothyroidism (7) Schizophrenia (8) Somatization disorder (9) Urinary incontinence Surgical Problems: (1) H/O brain surgery (2) H/O cystoscopy (3) H/O foot surgery (4) History of cataract surgery Old medical records were reviewed. Nurse's notes were reviewed and I agree with. Family History Cancer Diabetes mellitus Heart disease Seizures Social History Smoking Status: Never Smoker Alcohol Use: none Drug Use: none Marital Status: single Housing Status: lives alone Occupation Status: retired Current/Historical Medications Scheduled Aspirin (Aspirin Chewable), 81 MG PO DAILY Clozapine (Clozapine), 50 MG PO QAM Clozapine (Clozapine), 300 MG PO HS Duloxetine HCl (Duloxetine HCl), 60 MG PO DAILY Fluticasone Propionate (Fluticasone Propionate), 2 SPRAYS DONI DAILY Fluticasone Propionate (Nasal) (Flonase Allergy Relief), 2 SPRAYS DONI DAILY Levothyroxine Sodium (Levothyroxine Sodium), 50 MCG PO QAM Lisinopril (Lisinopril), 5 MG PO DAILY Loratadine (Claritin), 10 MG PO HS Metformin HCl (Metformin HCl), 500 MG PO BIDM Nortriptyline Hcl (Pamelor), 50 MG PO HS Omeprazole (Prilosec), 40 MG PO HS Psyllium (Psyldex), 1 PKT PO HS Ranitidine HCl (Ranitidine HCl), 150 MG PO BID Simvastatin (Simvastatin), 40 MG PO HS Solifenacin (Vesicare), 10 MG PO QPM Scheduled PRN Acetaminophen (Tylenol), 1,000 MG PO UD PRN for Pain Cyclobenzaprine Hcl (Flexeril), 10 MG PO BID PRN for Muscle Spasm Ketorolac Tromethamine (Ketorolac Tromethamine), 10 MG PO UD PRN for Headache Lorazepam (Ativan), 0.5 MG PO DAILY PRN for Anxiety Meclizine Hcl (Meclizine Hcl), 25 MG PO TID PRN for Dizziness or Vertigo Polyethylene (Polyethylene Glycol 3350), 17 GM PO DAILY PRN for Constipation Prochlorperazine Maleate (Prochlorperazine Maleate), 10 MG PO Q6H PRN for Nausea Promethazine Hcl (Phenergan), 12.5 MG PO Q8 PRN for Nausea Rizatriptan Benzoate (Rizatriptan Benzoate), 10 MG PO UD PRN for Headache Sennosides-Docusate Sodium (Senna Plus), 1-2 TABS PO DAILY PRN for Constipation Sumatriptan Succinate (Imitrex), 100 MG PO UD PRN for Headache Allergies Coded Allergies: Cephalosporins (Verified Allergy, Unknown, 10/14/16) POLLEN (Verified Allergy, Unknown, seasonal allergy , 10/14/16) Penicillins (Verified Allergy, Unknown, unknown, 10/14/16) Ketorolac Tromethamine (Unverified Adverse Reaction, Intermediate, NUMBNESS,TINGLING,DIFFICULTY WITH SPEECH, 10/14/16) Physical Exam Vital Signs Date Time Temp Pulse Resp B/P (MAP) Pulse Ox O2 Delivery O2 Flow Rate FiO2 12/17/16 01:21 76 18 167/88 97 12/17/16 00:00 76 19 179/100 96 Room Air 12/16/16 22:14 36.7 84 18 186/99 98 Room Air Physical Exam General: Well developed well nourished in no acute distress, breathing comfortably on room air. Normal speech, non-ill appearing, older female HEENT: Normal cephalic atraumatic. Pupils are equal round and reactive to light. Extraocular movements are intact. Oropharynx is pink with moist mucous membranes. No swelling of the mouth lips or tongue. Neck: Supple with a midline trachea. No meningeal signs or stiffness, no JVD or bruits. No Stridor. Chest: Clear to auscultation bilaterally. No wheezes or rhonchi. No increased work of breathing. Heart: regular rate and rhythm. Abdomen: Soft nontender, nondistended without rebound guarding or rigidity. Extremities: No cyanosis clubbing or edema. No calf tenderness or assymetry Spine/Back. Non tender to palpation. No CVA tenderness Skin: Good turgor without rashes. Neurologic exam: Cranial nerves two through 12 are intact. Motor and sensation are intact and symmetrical throughout. Medical Decision & Procedures ER Provider Diagnostic Interpretation: Chest x-ray per my interpretation reveals no pneumothorax, failure, or infiltrate. Laboratory Results 12/16/16 22:43 Red Blood Count 3.62, Mean Corpuscular Volume 87.0, Mean Corpuscular Hemoglobin 30.4, Mean Corpuscular Hemoglobin Concent 34.9, Mean Platelet Volume 9.4, Neutrophils (%) (Auto) 55.2, Lymphocytes (%) (Auto) 34.9, Monocytes (%) (Auto) 9.2, Eosinophils (%) (Auto) 0.0, Basophils (%) (Auto) 0.5, Neutrophils # (Auto) 3.20, Lymphocytes # (Auto) 2.02, Monocytes # (Auto) 0.53, Eosinophils # (Auto) 0.00, Basophils # (Auto) 0.03 12/16/16 22:43 Test 12/16/16 22:43 12/16/16 22:50 12/17/16 00:07 White Blood Count 5.79 K/uL (4.8-10.8) Red Blood Count 3.62 M/uL (4.2-5.4) Hemoglobin 11.0 g/dL (12.0-16.0) Hematocrit 31.5 % (37-47) Mean Corpuscular Volume 87.0 fL (80-100) Mean Corpuscular Hemoglobin 30.4 pg (25-34) Mean Corpuscular Hemoglobin Concent 34.9 g/dl (32-36) Platelet Count 215 K/uL (130-400) Mean Platelet Volume 9.4 fL (7.4-10.4) Neutrophils (%) (Auto) 55.2 % Lymphocytes (%) (Auto) 34.9 % Monocytes (%) (Auto) 9.2 % Eosinophils (%) (Auto) 0.0 % Basophils (%) (Auto) 0.5 % Neutrophils # (Auto) 3.20 K/uL (1.4-6.5) Lymphocytes # (Auto) 2.02 K/uL (1.2-3.4) Monocytes # (Auto) 0.53 K/uL (0.11-0.59) Eosinophils # (Auto) 0.00 K/uL (0-0.5) Basophils # (Auto) 0.03 K/uL (0-0.2) RDW Standard Deviation 44.7 fL (36.4-46.3) RDW Coefficient of Variation 14.0 % (11.5-14.5) Immature Granulocyte % (Auto) 0.2 % Immature Granulocyte # (Auto) 0.01 K/uL (0.00-0.02) Anion Gap 11.0 mmol/L (3-11) Est Creatinine Clear Calc Drug Dose 59.9 ml/min Estimated GFR () 85.8 Estimated GFR (Non- 74.0 BUN/Creatinine Ratio 20.5 (10-20) Calcium Level 8.7 mg/dl (8.5-10.1) Total Bilirubin 0.3 mg/dl (0.2-1) Direct Bilirubin 0.1 mg/dl (0-0.2) Aspartate Amino Transf (AST/SGOT) 14 U/L (15-37) Alanine Aminotransferase (ALT/SGPT) 23 U/L (12-78) Alkaline Phosphatase 81 U/L (45-117) Total Protein 6.8 gm/dl (6.4-8.2) Albumin 3.8 gm/dl (3.4-5.0) Lipase 126 U/L (73-393) Salicylates Level < 1.7 mg/dl (2.8-20) Urine Opiates Screen NEG (NEG) Urine Methadone, Qualitative NEG (NEG) Urine Barbiturates NEG (NEG) Urine Phencyclidine (PCP) Level NEG (NEG) Ur Amphetamine/Methamphetamine NEG (NEG) MDMA (Ecstasy) Screen NEG (NEG) Urine Benzodiazepines Screen NEG (NEG) Urine Cocaine Metabolite NEG (NEG) Urine Marijuana (THC) NEG (NEG) Acetaminophen Level 6 ug/ml (10-30) Laboratory studies as stated above per my review. Medications Administered Medications (Trade) Dose Ordered Sig/Artemio Route Start Time Stop Time Status Last Admin Dose Admin Sodium Chloride 250 ml @ 999 mls/hr Q16M STAT IV 12/16/16 22:32 12/16/16 22:47 DC 12/16/16 22:32 999 MLS/HR Sodium Chloride 1,000 ml @ 100 mls/hr Q10H STAT IV 12/16/16 22:32 12/17/16 08:31 12/16/16 22:32 100 MLS/HR ECG Indication: weakness Rate (beats per minute): 76 Findings: no acute ischemic change, other (Normal intervals) Comparison ECG Date: 08/05/16 Change: no significant change ED Course 2228: Past medical records reviewed. The patient was evaluated in room B11B, and a complete history and physical examination were performed. 2232: Ordered Sodium Chloride 1000 ml @ 100 mls/hr IV, Sodium Chloride 250 ml @ 999 mls/hr IV 0049: I reevaluated the patient, and she is resting comfortably. 0108: Upon reevaluation, the patient is resting and in no distress. I discussed the results and treatment plan with her. She verbalized agreement of the treatment plan. The patient was discharged home. Medical Decision Differential diagnosis includes: overdose, cardiac disease, electrolyte metabolic abnormality, infection. Medication Reconciliation: I attest that I have personally reviewed the patient' s current medication list. Blood pressure Screening: Patient was found to have an elevated blood pressure and was referred to their primary doctor for recheck and further treatment. This patient comes in as described above. She may have taken her Tylenol 2 hours early. If this is actually what she took this should be nontoxic. She looks well. EKG does not suggest acute coronary syndrome or arrhythmia or any toxicologic process. Multiple blood testing was obtained to do a toxicologic and metabolic workup. She has nothing to suggest significant electrolyte or metabolic abnormalities. Her Tylenol level was nontoxic at 3 and this was at approximately 3-3/4 hours. I did repeat it as it wasn't quite at the 4 hour level. The 4 level also came back is nontoxic. The patient rested comfortably and again is not suicidal or homicidal. She feels good and would like to go home. I will discharge her home. She should be very careful in taking the medications and return if: Any new problems or concerns. Impression Primary Impression: Overdose Additional Impression: Weakness Scribe Attestation The scribe's documentation has been prepared under my direction and personally reviewed by me in its entirety. I confirm that the note above accurately reflects all work, treatment, procedures, and medical decision making performed by me. Departure Information Dispostion Home / Self-Care Referrals Raymond Vann D.O. (PCP) Forms HOME CARE DOCUMENTATION FORM, IMPORTANT VISIT INFORMATION, WORK / SCHOOL INSTRUCTIONS Patient Instructions My [facility] Additional Instructions Ensure that you are taking your medications as directed only. Return if: Worsening of symptoms, any new problems or concerns. Follow-up with your doctor this week for recheck Problem Qualifiers
[2016-12-16 22:56] LABS: BASO % 0.5 %; BASO ABS # 0.03 K/uL (0-0.2); COMPLETE YES; HEMATOCRIT 31.5 % (37-47); IG% 0.2 %; LYMPH % 34.9 %; LYMPH ABS # 2.02 K/uL (1.2-3.4); MEAN CORPUSCULAR HEMOGLOBIN 30.4 pg (25-34); MEAN CORPUSCULAR HGB CONC 34.9 g/dl (32-36); MEAN PLATELET VOLUME 9.4 fL (7.4-10.4); MONO % 9.2 %; NEUT % 55.2 %; PLATELET COUNT 215 K/uL (130-400); RED BLOOD COUNT 3.62 M/uL (4.2-5.4); WHITE BLOOD COUNT 5.79 K/uL (4.8-10.8)
[2016-12-16 23:11] LABS: BUN/CREATININE RATIO 20.5 (10-20); CALCIUM 8.7 mg/dl (8.5-10.1); CREATININE 0.82 mg/dl (0.60-1.20)
[2016-12-16 23:14] LABS: BENZODIAZEPINE, URINE NEG (NEG); COCAINE,URINE NEG (NEG); PHENCYCLIDINE, URINE NEG (NEG)
[2016-12-16 23:27] LABS: ACETAMINOPHEN 3 ug/ml (10-30)
[2016-12-17 01:21] VITALS: BP 167/88; PULSE 76; O2SAT 97
--- NOTE | 2016-12-17 08:41 | DIAGNOSTIC IMAGING REPORT ---
CHEST ONE VIEW PORTABLE HISTORY: Atypical CHEST PAIN COMPARISON: Chest 08/05/2016. FINDINGS: Mild prominence of interstitial markings which likely chronic. This remains unchanged. The heart remains mildly enlarged. No pleural effusions. No pneumothorax. No new focal lung consolidations. No evidence for pulmonary edema. IMPRESSION: No significant change compared to the prior study. No acute process. Electronically signed by: Doe Harper M.D. 12/17/2016 8:39 AM Dictated Date/Time: 12/17/2016 8:38 AM
[2016-12-18] MEDS ORDERED: [UNRECOGNIZED DRUG - CODE] PO (08:03)
[2016-12-18] MEDS ORDERED: LORA-741 PO (14:47)
[2016-12-18] MEDS ORDERED: CLOZ25TA2 PO (15:28)
[2016-12-18] MEDS ORDERED: SENN1TAB65 PO (15:28)
[2016-12-18] MEDS ORDERED: OMEP20CA9 PO (16:26)
[2016-12-18] MEDS ORDERED: FLUT0.15 NAE (16:29)
[2016-12-18] MEDS ORDERED: LEVO50TA6 PO (16:33)
[2016-12-18] MEDS ORDERED: IMT100 PO (16:34)
[2016-12-18] MEDS ORDERED: TRD10 PO (16:34)
[2016-12-18] MEDS ORDERED: ASPCH81X PO (16:37)
[2016-12-18] MEDS ORDERED: CYCL10TA6 PO (16:55)
[2016-12-18] MEDS ORDERED: MECL1TAB42 PO (17:00)
[2016-12-18] MEDS ORDERED: PROM25TA9 PO (17:06)
[2016-12-18] MEDS ORDERED: ZCR40 PO (18:38)
[2016-12-18] MEDS ORDERED: MRLP527 PO (18:38)
[2016-12-18] MEDS ORDERED: RANI150T2 PO (18:38)
[2016-12-18] MEDS ORDERED: LORA10TA5 PO (18:38)
[2016-12-18] MEDS ORDERED: LSN5 PO (18:38)
[2016-12-18] MEDS ORDERED: RIZA10TA21 PO (18:38)
[2016-12-18] MEDS ORDERED: NRT/25 PO (18:38)
[2016-12-18] MEDS ORDERED: GLC500 PO (18:38)
[2016-12-18] MEDS ORDERED: SOLI10TA2 PO (18:38)
[2016-12-18] MEDS ORDERED: CYM60 PO (18:38)
[2016-12-18] MEDS ORDERED: CLOZ100T18 PO (22:54)
[2016-12-18] MEDS ORDERED: CMP/10 PO (22:54)
== END 2016-12-17 01:21 | disposition home or self-care (01) ==
LOC: EDBD 22:05 → C.EDB 22:06
DX: T39.1X1A Poisoning by 4-Aminophenol derivatives, accidental (unintentional), initial encounter (principal); R53.1 Weakness; F41.9 Anxiety disorder, unspecified; E11.9 Type 2 diabetes mellitus without complications; E78.5 Hyperlipidemia, unspecified; E03.9 Hypothyroidism, unspecified; F20.9 Schizophrenia, unspecified; Z98.49 Cataract extraction status, unspecified eye; Z80.9 Family history of malignant neoplasm, unspecified; Z83.3 Family history of diabetes mellitus; Z82.0 Family history of epilepsy and other diseases of the nervous system; Z79.82 Long term (current) use of aspirin; Z79.899 Other long term (current) drug therapy

== ENCOUNTER 2016-12-18 15:18 | Emergency (ER) | payer OTHER ==
[~2016-12-18] VITALS: Ht 160 cm; Wt 62.6 kg
[~2016-12-18 15:18] MED LIST changes: -CLZ100 PO; +LORA-741 PO; +[UNRECOGNIZED DRUG - CODE] PO
[2016-12-18 15:20] VITALS: TEMP 36.5; Ht 160 cm; Wt 62.6 kg
[2016-12-18] MEDS ORDERED: SENN1TAB65 PO (15:28)
[2016-12-18] MEDS ORDERED: CLOZ25TA2 PO (15:28)
[2016-12-18] MEDS ORDERED: OMEP20CA9 PO (16:26)
[2016-12-18] MEDS ORDERED: FLUT0.15 NAE (16:29)
[2016-12-18] MEDS ORDERED: LEVO50TA6 PO (16:33)
[2016-12-18] MEDS ORDERED: TRD10 PO (16:34)
[2016-12-18] MEDS ORDERED: MoRPHine SULFATE 10 MG/ML CARP/VIAL IM STA (16:34)
[2016-12-18] MEDS ORDERED: IMT100 PO (16:34)
[2016-12-18] MEDS ORDERED: ASPCH81X PO (16:37)
[2016-12-18] MEDS ORDERED: ONDANSETRON 4MG OD TAB PO ONE (16:45)
--- NOTE | 2016-12-18 16:45 | EMERGENCY ROOM VISIT NOTE ---
History Report prepared by Ammy: Massimo Crawford Under the Supervision of: Dr. Rodri Brannon M.D. First contact with patient: 16:27 Chief Complaint: HEADACHE Stated Complaint: PAIN History of Present Illness The patient is a 66 year old female who presents to the Emergency Room with complaints of a persistent headache starting 2 days ago. The pain is currently located on the top of the head which is worse on the left side. She rates a pain intensity of 9/10. She also complains of chills but denies any fevers. She denies any nausea, vomiting, urinary symptoms, or any other complaints. She reports chronic intermittent constipation but denies any changes. Source of History: patient Onset: 2 days ago Position: head Symptom Intensity: 9/10 Timing: other (persistent ) Associated Symptoms: + chills, No fevers, No nausea, No vomiting, No urinary symptoms Review of Systems All systems have been listed, reviewed, and are negative other than those previously mentioned. Please see Additional Medical History Sheet. Past Medical & Surgical Medical Problems: (1) Anxiety (2) Blurred vision (3) bunion surgery (4) DM2 (diabetes mellitus, type 2) (5) HLD (hyperlipidemia) (6) Hypothyroidism (7) Schizophrenia (8) Somatization disorder (9) Urinary incontinence Surgical Problems: (1) H/O brain surgery (2) H/O cystoscopy (3) H/O foot surgery (4) History of cataract surgery Family History Cancer Diabetes mellitus Heart disease Seizures Social History Smoking Status: Never Smoker Alcohol Use: none Drug Use: none Marital Status: single Housing Status: lives alone Occupation Status: retired Current/Historical Medications Scheduled Aspirin (Aspirin Chewable), 81 MG PO DAILY Clozapine (Clozapine), 50 MG PO QAM Clozapine (Clozapine), 300 MG PO HS Duloxetine HCl (Duloxetine HCl), 60 MG PO DAILY Fluticasone Propionate (Nasal) (Flonase Allergy Relief), 2 SPRAYS DONI DAILY Levothyroxine Sodium (Levothyroxine Sodium), 50 MCG PO QAM Lisinopril (Lisinopril), 5 MG PO DAILY Loratadine (Claritin), 10 MG PO HS Metformin HCl (Metformin HCl), 500 MG PO BIDM Nortriptyline Hcl (Pamelor), 50 MG PO HS Omeprazole (Prilosec), 40 MG PO HS Psyllium (Psyldex), 1 PKT PO HS Ranitidine HCl (Ranitidine HCl), 150 MG PO BID Simvastatin (Simvastatin), 40 MG PO HS Solifenacin (Vesicare), 10 MG PO QPM Scheduled PRN Acetaminophen (Tylenol), 1,000 MG PO Q6 PRN for Pain Cyclobenzaprine Hcl (Flexeril), 10 MG PO BID PRN for Muscle Spasm Ketorolac Tromethamine (Ketorolac Tromethamine), 10 MG PO UD PRN for Headache Lorazepam (Ativan), 0.5 MG PO DAILY PRN for Anxiety Meclizine Hcl (Meclizine Hcl), 25 MG PO TID PRN for Dizziness or Vertigo Polyethylene (Polyethylene Glycol 3350), 17 GM PO DAILY PRN for Constipation Prochlorperazine Maleate (Prochlorperazine Maleate), 10 MG PO Q6H PRN for Nausea Promethazine Hcl (Phenergan), 12.5 MG PO Q8 PRN for Nausea Rizatriptan Benzoate (Rizatriptan Benzoate), 10 MG PO UD PRN for Headache Sennosides-Docusate Sodium (Senna Plus), 1-2 TABS PO DAILY PRN for Constipation Sumatriptan Succinate (Imitrex), 100 MG PO UD PRN for Headache Allergies Coded Allergies: Cephalosporins (Verified Allergy, Unknown, 10/14/16) POLLEN (Verified Allergy, Unknown, seasonal allergy , 10/14/16) Penicillins (Verified Allergy, Unknown, unknown, 10/14/16) Ketorolac Tromethamine (Unverified Adverse Reaction, Intermediate, NUMBNESS,TINGLING,DIFFICULTY WITH SPEECH, 10/14/16) Physical Exam Vital Signs Date Time Temp Pulse Resp B/P (MAP) Pulse Ox O2 Delivery O2 Flow Rate FiO2 12/18/16 18:28 70 16 164/84 98 12/18/16 17:48 71 16 166/86 99 Room Air 12/18/16 17:27 73 16 176/95 99 Room Air 12/18/16 16:54 74 16 143/83 99 Room Air 12/18/16 15:20 36.5 79 20 141/80 100 Room Air Physical Exam GENERAL: Patient awake, alert, appears despondent. Patient follows commands. Patient does not appear toxic. Patient is adequately hydrated and well- nourished. SKIN: No erythema, pallor, cyanosis or rash HEENT: Normal head, pupils equal, reactive to light and accommodation. Ears normal. Oral cavity and posterior pharynx appear normal. Neck: Without adenopathy, no neck vein distention. LUNGS: Clear to auscultation. No wheezes, no rales, no rhonchi. HEART: No murmurs. No gallops. No rubs ABDOMEN: No masses, no rebound, no hepatomegaly or splenomegaly. EXTREMITIES: No signs of trauma. No pedal or pretibial edema. No calf or thigh tenderness. NEUROLOGIC: Cranial nerves II-XII within normal limits. No gross motor sensory function deficits. Medical Decision & Procedures Medications Administered Medications (Trade) Dose Ordered Sig/Artemio Route Start Time Stop Time Status Last Admin Dose Admin Morphine Sulfate (MoRPHine SULFATE INJ) 8 mg NOW STAT IM 12/18/16 16:34 12/18/16 16:36 DC 12/18/16 16:51 8 MG Ondansetron HCl (Zofran Odt) 4 mg ONE ONCE PO 12/18/16 16:45 12/18/16 16:46 DC 12/18/16 16:51 4 MG ED Course 1627: Past medical records reviewed. The patient was evaluated in room B10. A complete history and physical examination was performed. 1634: Morphine Sulfate 8 mg IM 1645: Zofran Odt 4 mg PO 1720: Upon reevaluation, the patient is feeling much better. I discussed today' s findings with her. She verbalized agreement of the treatment plan. She was discharged home. Medical Decision Differential diagnosis includes but is not limited to tension headache, migraine headache, cluster headache, encephalopathy, meningitis. The patient is here with generalized pain but more so on the left side of her head. The patient is well-known to the emergency department and myself. She has had frequent headaches in the past. Patient has no signs of infection, meningitis, encephalitis. The patient was given IM morphine and sublingual Zofran. Her symptoms subsided. I do not believe the patient requires any further imaging or blood work. The patient has an underlying anxiety disorder. Patient is to follow-up with her family physician. Medication Reconciliation: I attest that I have personally reviewed the patient' s current medication list. Blood Pressure Screening: Patient was found to have an elevated blood pressure and was referred to their primary doctor for recheck and further treatment. Impression Primary Impression: Tension headache Additional Impression: Anxiety Scribe Attestation The scribe's documentation has been prepared under my direction and personally reviewed by me in its entirety. I confirm that the note above accurately reflects all work, treatment, procedures, and medical decision making performed by me. Departure Information Dispostion Home / Self-Care Referrals Raymond Vann D.O. (PCP) Forms HOME CARE DOCUMENTATION FORM, IMPORTANT VISIT INFORMATION Patient Instructions My [facility] Additional Instructions Continue all of your current medications as prescribed. Follow-up with your family physician within the next 2 weeks regarding your headache and blood pressure. Problem Qualifiers
[2016-12-18] MEDS ORDERED: CYCL10TA6 PO (16:55)
[2016-12-18] MEDS ORDERED: MECL1TAB42 PO (17:00)
[2016-12-18] MEDS ORDERED: PROM25TA9 PO (17:06)
[2016-12-18 18:28] VITALS: BP 164/84; PULSE 70; O2SAT 98
[2016-12-18] MEDS ORDERED: GLC500 PO (18:38)
[2016-12-18] MEDS ORDERED: SOLI10TA2 PO (18:38)
[2016-12-18] MEDS ORDERED: RIZA10TA21 PO (18:38)
[2016-12-18] MEDS ORDERED: LORA10TA5 PO (18:38)
[2016-12-18] MEDS ORDERED: LSN5 PO (18:38)
[2016-12-18] MEDS ORDERED: ZCR40 PO (18:38)
[2016-12-18] MEDS ORDERED: MRLP527 PO (18:38)
[2016-12-18] MEDS ORDERED: NRT/25 PO (18:38)
[2016-12-18] MEDS ORDERED: CYM60 PO (18:38)
[2016-12-18] MEDS ORDERED: RANI150T2 PO (18:38)
[2016-12-18] MEDS ORDERED: CLOZ100T18 PO (22:54)
[2016-12-18] MEDS ORDERED: CMP/10 PO (22:54)
== END 2016-12-18 18:29 | disposition home or self-care (01) ==
LOC: C.EDB 15:19
DX: G44.209 Tension-type headache, unspecified, not intractable (principal); F41.9 Anxiety disorder, unspecified; E11.9 Type 2 diabetes mellitus without complications; E78.5 Hyperlipidemia, unspecified; E03.9 Hypothyroidism, unspecified; F20.9 Schizophrenia, unspecified; Z98.49 Cataract extraction status, unspecified eye; Z80.9 Family history of malignant neoplasm, unspecified; Z83.3 Family history of diabetes mellitus; Z82.0 Family history of epilepsy and other diseases of the nervous system; Z79.82 Long term (current) use of aspirin; Z79.899 Other long term (current) drug therapy

== ENCOUNTER 2016-12-19 11:17 | Emergency (ER) | payer OTHER ==
[~2016-12-19] VITALS: Ht 160 cm; Wt 62.0 kg
[~2016-12-19 11:17] MED LIST changes: +ASPCH81X PO; +CLOZ100T18 PO; +CLOZ25TA2 PO; +CMP/10 PO; +CYCL10TA6 PO; +CYM60 PO; -FLNIN/ NAE; +FLUT0.15 NAE; +GLC500 PO; +IMT100 PO; +LEVO50TA6 PO; +LORA10TA5 PO; +LSN5 PO; +MECL1TAB42 PO; +MRLP527 PO; +NRT/25 PO; +OMEP20CA9 PO; +PROM25TA9 PO; +RANI150T2 PO; +RIZA10TA21 PO; +SENN1TAB65 PO; +SOLI10TA2 PO; +TRD10 PO; +ZCR40 PO
[2016-12-19 11:19] VITALS: TEMP 36.8; Ht 160 cm; Wt 62.0 kg
[2016-12-19] MEDS ORDERED: MoRPHine SULFATE 10 MG/ML CARP/VIAL IM STA (11:54)
[2016-12-19] MEDS ORDERED: ONDANSETRON 4MG OD TAB PO ONE (12:00)
[2016-12-19] MEDS ORDERED: MoRPHine SULFATE 4 MG/ML 1 ML CARP\\VIAL ONE (12:06)
--- NOTE | 2016-12-19 12:12 | EMERGENCY ROOM VISIT NOTE ---
History Report prepared by Ammy: Adriana Tang Under the Supervision of: Dr. Samuel Ta M.D. First contact with patient: 11:46 Chief Complaint: PAIN (GENERALIZED) Stated Complaint: PAIN History of Present Illness The patient is a 66 year old female who presents to the Emergency Room with complaints of an episode of generalized pain that has worsened today. She reports that she was at the ED yesterday for the pain. She notes that the majority of pain is in her head and neck. She states that today she woke up with it and thought that if she ate breakfast, it would subside. She notes that she does have a pain management doctor who has her on medications to control it , but she states that she forgot about them since the pain came on so suddenly today. The patient reports that she is having a hard time concentrating and that it feels similar to previous episodes. The patient denies fevers. Source of History: patient Onset: today Position: other (global) Quality: other (global) Timing: other (episode) Associated Symptoms: + headache, + neck pain, No fevers Note: The patient complains of difficulty concentrating. Review of Systems See HPI for pertinent positives & negatives. A total of 10 systems reviewed and were otherwise negative. Past Medical & Surgical Medical Problems: (1) Anxiety (2) Blurred vision (3) bunion surgery (4) DM2 (diabetes mellitus, type 2) (5) HLD (hyperlipidemia) (6) Hypothyroidism (7) Schizophrenia (8) Somatization disorder (9) Urinary incontinence Surgical Problems: (1) H/O brain surgery (2) H/O cystoscopy (3) H/O foot surgery (4) History of cataract surgery Family History Cancer Diabetes mellitus Heart disease Seizures Social History Smoking Status: Never Smoker Alcohol Use: none Drug Use: none Marital Status: single Housing Status: lives alone Occupation Status: retired Current/Historical Medications Scheduled Aspirin (Aspirin Chewable), 81 MG PO DAILY Clozapine (Clozapine), 50 MG PO QAM Clozapine (Clozapine), 300 MG PO HS Duloxetine HCl (Duloxetine HCl), 60 MG PO DAILY Fluticasone Propionate (Nasal) (Flonase Allergy Relief), 2 SPRAYS DONI DAILY Levothyroxine Sodium (Levothyroxine Sodium), 50 MCG PO QAM Lisinopril (Lisinopril), 5 MG PO DAILY Loratadine (Claritin), 10 MG PO HS Metformin HCl (Metformin HCl), 500 MG PO BIDM Nortriptyline Hcl (Pamelor), 50 MG PO HS Omeprazole (Prilosec), 40 MG PO HS Psyllium (Psyldex), 1 PKT PO HS Ranitidine HCl (Ranitidine HCl), 150 MG PO BID Simvastatin (Simvastatin), 40 MG PO HS Solifenacin (Vesicare), 10 MG PO QPM Scheduled PRN Acetaminophen (Tylenol), 1,000 MG PO Q6 PRN for Pain Cyclobenzaprine Hcl (Flexeril), 10 MG PO BID PRN for Muscle Spasm Ketorolac Tromethamine (Ketorolac Tromethamine), 10 MG PO UD PRN for Headache Lorazepam (Ativan), 0.5 MG PO DAILY PRN for Anxiety Meclizine Hcl (Meclizine Hcl), 25 MG PO TID PRN for Dizziness or Vertigo Polyethylene (Polyethylene Glycol 3350), 17 GM PO DAILY PRN for Constipation Prochlorperazine Maleate (Prochlorperazine Maleate), 10 MG PO Q6H PRN for Nausea Promethazine Hcl (Phenergan), 12.5 MG PO Q8 PRN for Nausea Rizatriptan Benzoate (Rizatriptan Benzoate), 10 MG PO UD PRN for Headache Sennosides-Docusate Sodium (Senna Plus), 1-2 TABS PO DAILY PRN for Constipation Sumatriptan Succinate (Imitrex), 100 MG PO UD PRN for Headache Allergies Coded Allergies: Cephalosporins (Verified Allergy, Unknown, 10/14/16) POLLEN (Verified Allergy, Unknown, seasonal allergy , 10/14/16) Penicillins (Verified Allergy, Unknown, unknown, 10/14/16) Ketorolac Tromethamine (Unverified Adverse Reaction, Intermediate, NUMBNESS,TINGLING,DIFFICULTY WITH SPEECH, 10/14/16) Physical Exam Vital Signs Date Time Temp Pulse Resp B/P (MAP) Pulse Ox O2 Delivery O2 Flow Rate FiO2 12/19/16 12:24 70 18 134/74 99 12/19/16 11:19 36.8 79 16 111/66 99 Physical Exam GENERAL: Patient is well appearing and in mild distress. HEAD: No acute trauma, normocephalic atraumatic ENT: Mucous membranes moist, no nasal congestion. EYES: Equal/Reactive Bilaterally, No scleral icterus, Normal ROM NECK: No nuchal rigidity, no meningismus, trachea is midline, full ROM LUNGS: No dyspnea. Clear to auscultation and equal bilaterally. No wheeze, no rhonchi. HEART: Regular rate and rhythm. No murmurs, rubs, gallops appreciated. ABDOMEN: Soft, nontender, bowel sounds positive, no masses appreciated, no peritonitis. BACK: No midline tenderness, no CVA tenderness EXTREMITIES: Normal motion all extremities, no cyanosis, no edema. NEUROLOGIC: Awake, Alert, Oriented, no acute motor or sensory deficits, no focal weakness, cranial nerves grossly intact. SKIN: No rash, no jaundice, no diaphoresis. Medical Decision & Procedures Medications Administered Medications (Trade) Dose Ordered Sig/Artemio Route Start Time Stop Time Status Last Admin Dose Admin Ondansetron HCl (Zofran Odt) 4 mg ONE ONCE PO 12/19/16 12:00 12/19/16 12:01 DC 12/19/16 12:09 4 MG Morphine Sulfate (MoRPHine SULFATE INJ) 8 mg STK-MED ONCE .ROUTE 12/19/16 12:06 12/19/16 12:07 DC 12/19/16 12:09 8 MG ED Course 1146: The patient was evaluated in room C12. A complete history and physical exam was performed. 1154: Ordered Morphine Sulfate 8 mg IM. 1200: Ordered Zofran Odt 4 mg PO. 1219: Reevaluated the patient. Discussed results and discharge instructions: She verbalized understanding and agreement. The patient is ready for discharge. Medical Decision Medication Reconciliation: I attest that I have personally reviewed the patient 's current medication list. Blood Pressure Screening: Patient was found to have a slightly elevated blood pressure due to circumstances. I do not believe that the patient requires hypertension monitoring. Differential: Headache, Migraine, Cluster Headache, Seizure, Meningitis, Sinusitis, CO exposure, ICH/SAH, Infectious, Tumor, Sinus Thrombosis, Arterial Dissection, amongst other pathologies entertained. 66 yr old female with long history of chronic pain issues well known to department. Initially concerned as she visited just yesterday with same symptoms, though review chart makes it clear she often visits in clusters. She makes clear this is similar to typical frontal headaches she gets. No risk factors for acute dissection, and symptoms not consistent with thrombosis, ich, meningitis, etc. I feel this is acute exacerbation of her chronic pain. She was treated with her typical dosing of pain medications and discharged in stable condition with family/friend. Impression Primary Impression: Headache Scribe Attestation The scribe's documentation has been prepared under my direction and personally reviewed by me in its entirety. I confirm that the note above accurately reflects all work, treatment, procedures, and medical decision making performed by me. Departure Information Dispostion Home / Self-Care Referrals Raymond Vann D.O. (PCP) Forms HOME CARE DOCUMENTATION FORM, IMPORTANT VISIT INFORMATION, WORK / SCHOOL INSTRUCTIONS Patient Instructions ED Headache Migraine, My [facility] Additional Instructions Please discuss pain management with your primary care provider. We are always here to help.
[2016-12-19 12:24] VITALS: BP 134/74; PULSE 70; O2SAT 99
== END 2016-12-19 12:25 | disposition home or self-care (01) ==
LOC: C.EDB 11:18 → C.EDC 12:25
DX: R51 Headache (principal); F41.9 Anxiety disorder, unspecified; E11.9 Type 2 diabetes mellitus without complications; E78.5 Hyperlipidemia, unspecified; E03.9 Hypothyroidism, unspecified; F20.9 Schizophrenia, unspecified; F45.0 Somatization disorder; Z83.3 Family history of diabetes mellitus; Z82.49 Family history of ischemic heart disease and other diseases of the circulatory system; Z82.0 Family history of epilepsy and other diseases of the nervous system; Z79.82 Long term (current) use of aspirin

== ENCOUNTER 2016-12-22 14:24 | Emergency (ER) | payer OTHER ==
[~2016-12-22] VITALS: Ht 160 cm; Wt 62.2 kg
[2016-12-22 14:26] VITALS: TEMP 36.6; Ht 160 cm; Wt 62.2 kg
[2016-12-22] MEDS ORDERED: DiphenhydrAMINE HCL 50 MG/ML VIAL IM STA (14:45)
[2016-12-22] MEDS ORDERED: ONDANSETRON 4MG OD TAB PO ONE (14:45)
--- NOTE | 2016-12-22 15:13 | EMERGENCY ROOM VISIT NOTE ---
History First contact with patient: 14:32 Chief Complaint: HEAD PAIN Stated Complaint: HEAD PAIN,NAUSEA History of Present Illness The patient is a 66 year old female who presents to the Emergency Room with complaints of headache. The patient states this headache started yesterday. She was also in the emergency department a few days ago for a similar headache but that resolved. She states this feels very typical of her chronic, ongoing headaches. She rates her discomfort a 9/10. She tried Toradol. She denies any fevers or chills. She reports neck pain but states this is typical with her migraines. She does not have any neck stiffness or nuchal rigidity. She does not have any chest pain, trouble breathing, abdominal pain, vomiting. She denies any numbness, tingling or weakness in the extremities. Review of Systems A 10 system review of systems was completed with positives and pertinent negatives listed in the HPI. Past Medical/Surgical History Medical Problems: (1) Anxiety (2) Blurred vision (3) bunion surgery (4) DM2 (diabetes mellitus, type 2) (5) HLD (hyperlipidemia) (6) Hypothyroidism (7) Schizophrenia (8) Somatization disorder (9) Urinary incontinence Surgical Problems: (1) H/O brain surgery (2) H/O cystoscopy (3) H/O foot surgery (4) History of cataract surgery Family History Cancer Diabetes mellitus Heart disease Seizures Social History Smoking Status: Never Smoker Alcohol Use: none Drug Use: none Marital Status: single Housing Status: lives alone Occupation Status: retired Current/Historical Medications Scheduled Aspirin (Aspirin Chewable), 81 MG PO DAILY Clozapine (Clozapine), 50 MG PO QAM Clozapine (Clozapine), 300 MG PO HS Duloxetine HCl (Duloxetine HCl), 60 MG PO DAILY Fluticasone Propionate (Nasal) (Flonase Allergy Relief), 2 SPRAYS DONI DAILY Levothyroxine Sodium (Levothyroxine Sodium), 50 MCG PO QAM Lisinopril (Lisinopril), 5 MG PO DAILY Loratadine (Claritin), 10 MG PO HS Metformin HCl (Metformin HCl), 500 MG PO BIDM Nortriptyline Hcl (Pamelor), 50 MG PO HS Omeprazole (Prilosec), 40 MG PO HS Psyllium (Psyldex), 1 PKT PO HS Ranitidine HCl (Ranitidine HCl), 150 MG PO BID Simvastatin (Simvastatin), 40 MG PO HS Solifenacin (Vesicare), 10 MG PO QPM Scheduled PRN Acetaminophen (Tylenol), 1,000 MG PO Q6 PRN for Pain Cyclobenzaprine Hcl (Flexeril), 10 MG PO BID PRN for Muscle Spasm Ketorolac Tromethamine (Ketorolac Tromethamine), 10 MG PO UD PRN for Headache Lorazepam (Ativan), 0.5 MG PO DAILY PRN for Anxiety Meclizine Hcl (Meclizine Hcl), 25 MG PO TID PRN for Dizziness or Vertigo Polyethylene (Polyethylene Glycol 3350), 17 GM PO DAILY PRN for Constipation Prochlorperazine Maleate (Prochlorperazine Maleate), 10 MG PO Q6H PRN for Nausea Promethazine Hcl (Phenergan), 12.5 MG PO Q8 PRN for Nausea Rizatriptan Benzoate (Rizatriptan Benzoate), 10 MG PO UD PRN for Headache Sennosides-Docusate Sodium (Senna Plus), 1-2 TABS PO DAILY PRN for Constipation Sumatriptan Succinate (Imitrex), 100 MG PO UD PRN for Headache Allergies Coded Allergies: Cephalosporins (Verified Allergy, Unknown, 10/14/16) POLLEN (Verified Allergy, Unknown, seasonal allergy , 10/14/16) Penicillins (Verified Allergy, Unknown, unknown, 10/14/16) Ketorolac Tromethamine (Unverified Adverse Reaction, Intermediate, NUMBNESS,TINGLING,DIFFICULTY WITH SPEECH, 10/14/16) Physical Exam Vital Signs Date Time Temp Pulse Resp B/P (MAP) Pulse Ox O2 Delivery O2 Flow Rate FiO2 12/22/16 14:26 36.6 75 18 118/68 100 Room Air Physical Exam VITALS: Vitals are noted on the nurse's note and reviewed by myself. Vital signs stable. GENERAL: This is a 66-year-old female, in no acute distress, nondiaphoretic, well-developed well-nourished. SKIN: The skin was without rashes, erythema, edema, or bruising. There is no tenting of the skin. Capillary reflex less than 2 seconds. HEAD: Normocephalic atraumatic. EARS: External auditory canals clear, tympanic membranes pearly roman without erythema or effusion bilaterally. EYES: Pupils equal round and reactive to light and accommodation. Conjunctivae without injection, sclerae without icterus. Extraocular movements intact. NOSE: Patent, turbinates without inflammation or discharge. No sinus tenderness. MOUTH: Mucous membranes moist. Tonsils are not enlarged. Pharynx without erythema or exudate. Uvula midline. Airway patent. Tongue does not deviate. NECK: Supple without nuchal rigidity. No lymphadenopathy. No thyromegaly. Cervical spine is nontender. No JVD. HEART: Regular rate and rhythm without murmurs gallops or rubs. LUNGS: Clear to auscultation bilaterally without wheezes, rales or rhonchi. No retractions or accessory muscle use. MUSCULOSKELETAL: No muscle atrophy, erythema, or edema noted. Full range of motion in all extremities. Strength 5/5 throughout. NEURO: Patient was alert and oriented to person place and time. No focal neurological deficits. Medical Decision & Procedures Medications Administered Medications (Trade) Dose Ordered Sig/Artemio Route Start Time Stop Time Status Last Admin Dose Admin Diphenhydramine HCl (Benadryl Inj) 50 mg NOW STAT IM 12/22/16 14:45 12/22/16 14:46 DC 12/22/16 14:57 50 MG Ondansetron HCl (Zofran Odt) 4 mg ONE ONCE PO 12/22/16 14:45 12/22/16 14:46 DC 12/22/16 14:56 4 MG Prochlorperazine Maleate (Compazine Tab) 10 mg NOW ONCE PO 12/22/16 15:30 12/22/16 15:31 DC 12/22/16 15:30 10 MG ED Course The patient was seen and examined. Previous visits were reviewed. The patient does not have a fever. She is nontoxic in appearance. She does not have any nuchal rigidity or meningismus. The patient is well-known to the emergency department. The [facility] orthopedist at to the emergency department this month . She states that he feels very typical of her chronic and recurrent headaches. The patient is on a 2 shot per month treatment protocol and has already had 2 narcotic injections this month. I initially gave her 50 mg IM Benadryl and 4 mg oral Zofran with mild improvement in her pain. When I discussed the patient's medications with her, she did keep a detailed list of what she has taken today. She did not have any Compazine today. She was given 10 mg oral Compazine. The patient was feeling slightly improved and was discharged home. The patient was also seen and examined by who agrees with the assessment and treatment plan. Medical Decision The differential diagnosis includes: head or neck trauma, cerebrovascular disorders, intracranial lesions, infection,transient ischemic attack (TIA), CVA , seizure, syncope, intracranial mass, intracranial bleeding and vestibular disorders, among others Impression Primary Impression: Migraine Departure Information Dispostion Home / Self-Care Condition GOOD Referrals Raymond Vann, D.O. (PCP) Patient Instructions My [facility] Additional Instructions Continue your medications as prescribed Return with worsening symptoms
[2016-12-22] MEDS ORDERED: PROCHLORPERAZINE MALEATE 5 MG TAB PO ONE (15:30)
[2016-12-22 15:59] VITALS: BP 116/73; PULSE 71; O2SAT 100
== END 2016-12-22 16:00 | disposition home or self-care (01) ==
LOC: C.EDB 14:24 → C.EDD 16:00
DX: G43.909 Migraine, unspecified, not intractable, without status migrainosus (principal); E11.9 Type 2 diabetes mellitus without complications; E78.5 Hyperlipidemia, unspecified; E03.9 Hypothyroidism, unspecified; F20.9 Schizophrenia, unspecified; F41.9 Anxiety disorder, unspecified; Z98.49 Cataract extraction status, unspecified eye; Z98.890 Other specified postprocedural states; Z83.3 Family history of diabetes mellitus; Z82.0 Family history of epilepsy and other diseases of the nervous system; Z79.82 Long term (current) use of aspirin; Z79.84 Long term (current) use of oral hypoglycemic drugs; Z79.899 Other long term (current) drug therapy

== ENCOUNTER 2017-04-24 13:32 | Emergency (ER) | payer OTHER ==
[~2017-04-24] VITALS: Ht 165.1 cm; Wt 67.0 kg
[~2017-04-24 13:32] MED LIST changes: +MXL10 PO; -RIZA10TA21 PO
[2017-04-24 13:34] VITALS: TEMP 37; Ht 165.1 cm; Wt 67.0 kg
--- NOTE | 2017-04-24 14:03 | EMERGENCY ROOM VISIT NOTE ---
History Report prepared by Ammy: Leonila Lundy Under the Supervision of: Dr. Alpesh Moser M.D. First contact with patient: 13:42 Chief Complaint: HEAD PAIN Stated Complaint: HEAD PAIN, DIZZY, NAUSEA History of Present Illness The patient is a 66 year old female who presents to the Emergency Room with complaints of a constant headache beginning last night. The patient has a history of migraine headaches. She states that it felt like her typical headache. She tried her usual medications last night. She took Toradol PO and compazine. The patient went to bed and was feeling a little better when she woke up this morning. She states that her headache started to worsen again. The patient took Ketoralac and Tylenol this morning for her symptoms. She states that it still feels like her typical headache, but the medications are not helping. The patient rates her current pain as an 8/10 in severity. She also notes ear aches and intermittent dizziness. The last couple of nights she has felt unsteady on her feet and has had numbness in her feet. the patient denies any recent injury, trauma, or falls. She denies any fevers. Source of History: patient Onset: last night Position: head Symptom Intensity: 8/10 Timing: constant Modifying Factors (Relieving): other (Toradol, Compazine) Associated Symptoms: + numbness (feet), No fevers Review of Systems See HPI for pertinent positives & negatives. A total of 10 systems reviewed and were otherwise negative. Past Medical & Surgical Medical Problems: (1) Anxiety (2) Blurred vision (3) bunion surgery (4) DM2 (diabetes mellitus, type 2) (5) HLD (hyperlipidemia) (6) Hypothyroidism (7) Schizophrenia (8) Somatization disorder (9) Urinary incontinence Surgical Problems: (1) H/O brain surgery (2) H/O cystoscopy (3) H/O foot surgery (4) History of cataract surgery Old medical records were reviewed. Nurse's notes were reviewed and I agree with. She has frequent visits for chronic headaches Family History Cancer Diabetes mellitus Heart disease Seizures Social History Smoking Status: Never Smoker Alcohol Use: none Drug Use: none Marital Status: single Housing Status: lives alone Occupation Status: retired Current/Historical Medications Scheduled Aspirin (Aspirin Chewable), 81 MG PO DAILY Clozapine (Clozapine), 50 MG PO QAM Clozapine (Clozapine), 300 MG PO HS Duloxetine HCl (Duloxetine HCl), 60 MG PO DAILY Fluticasone Propionate (Nasal) (Flonase Allergy Relief), 2 SPRAYS DONI DAILY Levothyroxine Sodium (Levothyroxine Sodium), 50 MCG PO QAM Lisinopril (Lisinopril), 5 MG PO DAILY Loratadine (Claritin), 10 MG PO HS Metformin Hcl (Glucophage), 500 MG PO DAILY Nortriptyline Hcl (Pamelor), 50 MG PO HS Omeprazole (Prilosec), 40 MG PO HS Psyllium (Psyldex), 1 PKT PO HS Ranitidine HCl (Ranitidine HCl), 150 MG PO BID Simvastatin (Simvastatin), 40 MG PO HS Solifenacin (Vesicare), 10 MG PO QPM Scheduled PRN Acetaminophen (Tylenol), 1,000 MG PO Q6 PRN for Pain Cyclobenzaprine Hcl (Flexeril), 10 MG PO BID PRN for Muscle Spasm Ketorolac Tromethamine (Ketorolac Tromethamine), 10 MG PO UD PRN for Headache Meclizine Hcl (Meclizine Hcl), 25 MG PO TID PRN for Dizziness or Vertigo Polyethylene (Polyethylene Glycol 3350), 17 GM PO DAILY PRN for Constipation Prochlorperazine Maleate (Prochlorperazine Maleate), 10 MG PO Q6H PRN for Nausea Promethazine Hcl (Phenergan), 12.5 MG PO Q8 PRN for Nausea Sennosides-Docusate Sodium (Senna Plus), 1-2 TABS PO DAILY PRN for Constipation Sumatriptan Succinate (Imitrex), 100 MG PO UD PRN for Headache Allergies Coded Allergies: Cephalosporins (Verified Allergy, Unknown, 04/24/17) POLLEN (Verified Allergy, Unknown, seasonal allergy , 04/24/17) Penicillins (Verified Allergy, Unknown, unknown, 04/24/17) Ketorolac Tromethamine (Unverified Adverse Reaction, Intermediate, NUMBNESS,TINGLING,DIFFICULTY WITH SPEECH, 10/14/16) Physical Exam Vital Signs Date Time Temp Pulse Resp B/P (MAP) Pulse Ox O2 Delivery O2 Flow Rate FiO2 04/24/17 16:12 70 18 138/78 98 Room Air 04/24/17 15:08 70 16 141/80 98 Room Air 04/24/17 13:34 37.0 81 18 142/78 100 Room Air Physical Exam General: Non-ill appearing older female in no acute distress, speaking and swallowing with difficulty, alert and oriented x3. HEENT: Normal cephalic atraumatic. Pupils are equal round and reactive to light. Extraocular movements are intact. TMs normal. Oropharynx is pink with moist mucous membranes. No swelling of the mouth lips or tongue. Neck: Supple with a midline trachea. No meningeal signs or stiffness, no JVD or bruits. No Stridor. Chest: Clear to auscultation bilaterally. No wheezes or rhonchi. No increased work of breathing. Heart: regular rate and rhythm. Abdomen: Soft nontender, nondistended without rebound guarding or rigidity. Extremities: No cyanosis clubbing or edema. No calf tenderness or assymetry Spine/Back. Non tender to palpation. No CVA tenderness Skin: Good turgor without rashes. Neurologic exam: Cranial nerves two through 12 are intact. Motor and sensation are intact and symmetrical throughout. No tremor. Medical Decision & Procedures Medications Administered Medications (Trade) Dose Ordered Sig/Artemio Route Start Time Stop Time Status Last Admin Dose Admin Ketorolac Tromethamine (Toradol Inj) 30 mg NOW STAT IM 04/24/17 14:12 04/24/17 14:13 DC 04/24/17 14:32 30 MG Diphenhydramine HCl (Benadryl Cap) 25 mg NOW ONCE PO 04/24/17 15:00 04/24/17 15:51 DC 04/24/17 15:08 25 MG ED Course 1351: Past medical records reviewed. The patient was evaluated in room B4A, and a complete history and physical examination were performed. 1412: Toradol 30 mg IM 1450: The patient is feeling better but is requesting something else for her pain. 1500: Benadryl 25 mg PO 1626: I reassessed the patient at this time. She is feeling better and resting comfortably. I discussed the results and treatment plan with the patient. I answered all pertaining questions that she had. She expressed understanding and verbalized agreement. The patient will be discharged home. Medical Decision Differentials include, but are not limited to; migraine, tension VILLASENOR, trauma, infection, electrolyte or metabolic abnormality. This patient comes in as described above. She is having a headache which is consistent with her previous migraines. She is afebrile and has stable vital signs. She has nothing to suggest this is anything but her typical migraine, specifically she has nothing to suggest meningitis, encephalitis, stroke, aneurysm, toxicologic process. I have reviewed her records. She takes Toradol frequently at home but may have had an adverse reaction here one time to it. She's had it multiple times I do not think she is likely allergic. She had no symptoms at that time to suggest anaphylaxis. She was given Toradol 30 mg IM and tolerated it well without any problems. She was reassessed and this did help the headache. She was additionally given 25 mg of Benadryl was resting comfortably. She feels up to going home. She'll be discharged home. She is not driving. She was encouraged follow up with her regular doctor in 1-2 days and return to ER: Increasing pain, worsening of symptoms, fever or chills, any new problems or concerns. Medication Reconcilliation Current Medication List: was personally reviewed by me Blood Pressure Screening Patient's blood pressure: Elevated blood pressure Blood pressure disposition: Elevated BP felt to be situational Impression Primary Impression: Migraine Scribe Attestation The scribe's documentation has been prepared under my direction and personally reviewed by me in its entirety. I confirm that the note above accurately reflects all work, treatment, procedures, and medical decision making performed by me. Departure Information Dispostion Home / Self-Care Referrals Raymond Vann D.O. (PCP) Forms HOME CARE DOCUMENTATION FORM, IMPORTANT VISIT INFORMATION, WORK / SCHOOL INSTRUCTIONS Patient Instructions My [facility] Additional Instructions Rest. Drink plenty of fluids. Continue current regimen for your migraines Return to ER if: Worsening of symptoms, fever or chills, numbness or weakness, any new problems or concerns Problem Qualifiers Primary Impression: Migraine
[2017-04-24] MEDS ORDERED: GLC/500 PO (14:06)
[2017-04-24] MEDS ORDERED: KETOROLAC TROMETHAMINE 60 MG/2 ML VIAL IM STA (14:12)
[2017-04-24 16:12] VITALS: BP 138/78; PULSE 70; O2SAT 98
== END 2017-04-24 17:25 | disposition home or self-care (01) ==
LOC: C.EDB 13:34
DX: G43.909 Migraine, unspecified, not intractable, without status migrainosus (principal); F41.9 Anxiety disorder, unspecified; E11.9 Type 2 diabetes mellitus without complications; E78.5 Hyperlipidemia, unspecified; E03.9 Hypothyroidism, unspecified; F20.9 Schizophrenia, unspecified; F45.0 Somatization disorder; Z80.9 Family history of malignant neoplasm, unspecified; Z83.3 Family history of diabetes mellitus; Z82.49 Family history of ischemic heart disease and other diseases of the circulatory system; Z79.82 Long term (current) use of aspirin; Z79.899 Other long term (current) drug therapy

== ENCOUNTER 2017-06-04 23:46 | Emergency (ER) | payer OTHER ==
[~2017-06-04] VITALS: Ht 165.1 cm; Wt 63.4 kg
[~2017-06-04 23:46] MED LIST changes: -ACET-1256 PO; +GLC/500 PO; -GLC500 PO; -LORA-741 PO; -MXL10 PO
[2017-06-04 23:48] VITALS: BP 168/79; PULSE 87; TEMP 36.8; O2SAT 100; Ht 165.1 cm; Wt 63.4 kg
--- NOTE | 2017-06-05 00:06 | EMERGENCY ROOM VISIT NOTE ---
History Report prepared by Ammy: Melanie Mays Under the Supervision of: Dr. Rui Bonilla D.O. First contact with patient: 23:54 Chief Complaint: OVERDOSE (ACCIDENTAL) Stated Complaint: TOOK EXTRA DOSE OF MEDS BY ACCIDENT Nursing Triage Summary: "I woke up sleep walking. I thought it was late morning. I got dressed, ate and I took my morning pills. I took them right after I took my night pills." "lots of meds" c/o facial numbness/tingling and feeling delayed. denies SI or trying to harm self. just disoriented to time of day History of Present Illness The patient is a 66 year old female who presents to the Emergency Room with complaints of an episode of accidental overdose at 2200 today. The patient took her night medications around 2000. These include Duloxetine, 2 clozapine, simvastatin, omeprazole, and amitriptyline. She woke up around 2200. She thought it was 1000 in the morning and took her morning medications which include clozapine, ranitidine, metformin, and Tylenol. She was not trying to hurt herself. She was just confused about the time of day. She reports facial numbness. She notes anxiety about taking an overdose. Source of History: patient Onset: 2200 Position: other (global) Quality: other (accidental overdose) Timing: other (episodic) Associated Symptoms: + numbness Note: Pt reports anxiety. Review of Systems See HPI for pertinent positives and negatives. A total of ten systems were reviewed and were otherwise negative. Past Medical & Surgical Medical Problems: (1) Anxiety (2) Blurred vision (3) bunion surgery (4) DM2 (diabetes mellitus, type 2) (5) HLD (hyperlipidemia) (6) Hypothyroidism (7) Schizophrenia (8) Somatization disorder (9) Urinary incontinence Surgical Problems: (1) H/O brain surgery (2) H/O cystoscopy (3) H/O foot surgery (4) History of cataract surgery Family History Cancer Diabetes mellitus Heart disease Seizures Social History Smoking Status: Never Smoker Alcohol Use: none Drug Use: none Marital Status: single Housing Status: lives alone Occupation Status: retired Current/Historical Medications Scheduled Aspirin (Aspirin Chewable), 81 MG PO DAILY Clozapine (Clozapine), 50 MG PO QAM Clozapine (Clozapine), 300 MG PO HS Duloxetine HCl (Duloxetine HCl), 60 MG PO DAILY Fluticasone Propionate (Nasal) (Flonase Allergy Relief), 2 SPRAYS DONI DAILY Levothyroxine Sodium (Levothyroxine Sodium), 50 MCG PO QAM Lisinopril (Lisinopril), 5 MG PO DAILY Loratadine (Claritin), 10 MG PO HS Metformin Hcl (Glucophage), 500 MG PO DAILY Nortriptyline Hcl (Pamelor), 50 MG PO HS Omeprazole (Prilosec), 40 MG PO HS Psyllium (Psyldex), 1 PKT PO HS Ranitidine HCl (Ranitidine HCl), 150 MG PO BID Simvastatin (Simvastatin), 40 MG PO HS Solifenacin (Vesicare), 10 MG PO QPM Scheduled PRN Cyclobenzaprine Hcl (Flexeril), 10 MG PO BID PRN for Muscle Spasm Ketorolac Tromethamine (Ketorolac Tromethamine), 10 MG PO UD PRN for Headache Meclizine Hcl (Meclizine Hcl), 25 MG PO TID PRN for Dizziness or Vertigo Polyethylene (Polyethylene Glycol 3350), 17 GM PO DAILY PRN for Constipation Prochlorperazine Maleate (Prochlorperazine Maleate), 10 MG PO Q6H PRN for Nausea Promethazine Hcl (Phenergan), 12.5 MG PO Q8 PRN for Nausea Sennosides-Docusate Sodium (Senna Plus), 1-2 TABS PO DAILY PRN for Constipation Sumatriptan Succinate (Imitrex), 100 MG PO UD PRN for Headache Allergies Coded Allergies: Cephalosporins (Verified Allergy, Unknown, 05/08/17) POLLEN (Verified Allergy, Unknown, seasonal allergy , 05/08/17) Penicillins (Verified Allergy, Unknown, unknown, 05/08/17) Physical Exam Vital Signs Date Time Temp Pulse Resp B/P (MAP) Pulse Ox O2 Delivery O2 Flow Rate FiO2 06/04/17 23:48 36.8 87 20 168/79 100 Room Air Physical Exam GENERAL: Awake, alert, anxious-appearing, in no distress HENT: Normocephalic, atraumatic. Oropharynx unremarkable. EYES: Normal conjunctiva. Sclera non-icteric. NECK: Supple. No nuchal rigidity. FROM. No JVD. RESPIRATORY: Clear to auscultation. CARDIAC: Regular rate, normal rhythm. Extremities warm and well perfused. Pulses equal. ABDOMEN: Soft, non-distended. No tenderness to palpation. No rebound or guarding. No masses. RECTAL: Deferred. MUSCULOSKELETAL: Chest examination reveals no tenderness. The back is symmetrical on inspection without obvious abnormality. There is no CVA tenderness to palpation. No joint edema. LOWER EXTREMITIES: Calves are equal size bilaterally and non-tender. No edema. No discoloration. NEURO: Normal sensorium. No sensory or motor deficits noted. SKIN: No rash or jaundice noted. Medical Decision & Procedures ED Course 3382: The patient was evaluated in room A11B. A complete history and physical exam was performed. I discussed results and discharge instructions: She verbalized understanding and agreement. The patient will be discharged after observation. Medical Decision Differential diagnoses include but are not limited to; accidental medication overdose, anxiety, confusion. Patient resting in no distress. Patient's medications were reviewed and there is no significant overdose or concerned with this patient's medication interactions and taking an extra dose of each. I reassured her that she is going to do well. Patient was last anxious. After period of observation patient will be discharged to home Medication Reconcilliation Current Medication List: was personally reviewed by me Blood Pressure Screening Patient's blood pressure: Elevated blood pressure Blood pressure disposition: Elevated BP felt to be situational Impression Primary Impression: Accidental overdose Scribe Attestation The scribe's documentation has been prepared under my direction and personally reviewed by me in its entirety. I confirm that the note above accurately reflects all work, treatment, procedures, and medical decision making performed by me. Departure Information Dispostion Home / Self-Care Referrals Ramyond Vann, D.O. (PCP) Patient Instructions ED Overdose Accidental, My [facility]
== END 2017-06-05 00:32 | disposition home or self-care (01) ==
LOC: C.EDB 23:48 → C.EDA 06-05 00:32
DX: T50.901A Poisoning by unspecified drugs, medicaments and biological substances, accidental (unintentional), initial encounter (principal); X58.XXXA Exposure to other specified factors, initial encounter; F41.9 Anxiety disorder, unspecified; E11.9 Type 2 diabetes mellitus without complications; E78.5 Hyperlipidemia, unspecified; E03.9 Hypothyroidism, unspecified; F20.9 Schizophrenia, unspecified; F45.0 Somatization disorder; Z79.82 Long term (current) use of aspirin; Z79.84 Long term (current) use of oral hypoglycemic drugs; Z83.3 Family history of diabetes mellitus; Z82.0 Family history of epilepsy and other diseases of the nervous system

== ENCOUNTER 2017-07-05 14:53 | Emergency (ER) | payer OTHER ==
[~2017-07-05] VITALS: Ht 165.1 cm; Wt 63.2 kg
[~2017-07-05 14:53] MED LIST changes: -ASPCH81X PO; -CLOZ100T18 PO; -CLOZ25TA2 PO; -CMP/10 PO; -CYCL10TA6 PO; -CYM60 PO; -IMT100 PO; -LEVO50TA6 PO; -LORA10TA5 PO; -LSN5 PO; -MRLP527 PO; -NRT/25 PO; -OMEP20CA9 PO; -PROM25TA9 PO; -RANI150T2 PO; -SOLI10TA2 PO; -TRD10 PO; -ZCR40 PO; -[UNRECOGNIZED DRUG - CODE] PO
[2017-07-05 15:01] VITALS: TEMP 36.7; Ht 165.1 cm; Wt 63.2 kg
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
[2017-07-05] MEDS ORDERED: KETOROLAC TROMETHAMINE 30 MG/ML VIAL IM STA (15:28)
[2017-07-05] MEDS ORDERED: PROCHLORPERAZINE MALEATE 5 MG TAB PO ONE (15:30)
[2017-07-05] MEDS ORDERED: ANT25 PO (16:40)
[2017-07-05] MEDS ORDERED: ACETAMINOPHEN 500 MG TAB PO STA (16:41)
[2017-07-05] MEDS ORDERED: CYCL10TA6 PO (16:55)
[2017-07-05 18:14] VITALS: BP 162/82; PULSE 72; O2SAT 98
[2017-10-08] MEDS ORDERED: [UNRECOGNIZED DRUG - CODE] PO (08:03)
[2017-10-08] MEDS ORDERED: LISI-730 PO (18:38)
[2017-10-08] MEDS ORDERED: PROC10TA5 PO (22:54)
== END 2017-07-05 18:25 | disposition home or self-care (01) ==
LOC: C.EDB 14:54
DX: M79.621 Pain in right upper arm (principal); M54.2 Cervicalgia; E11.9 Type 2 diabetes mellitus without complications; E78.5 Hyperlipidemia, unspecified; E03.9 Hypothyroidism, unspecified; F20.9 Schizophrenia, unspecified; F41.9 Anxiety disorder, unspecified; Z98.49 Cataract extraction status, unspecified eye; Z98.890 Other specified postprocedural states; Z79.82 Long term (current) use of aspirin; Z79.84 Long term (current) use of oral hypoglycemic drugs; Z79.899 Other long term (current) drug therapy; Z80.9 Family history of malignant neoplasm, unspecified; Z83.3 Family history of diabetes mellitus; Z82.49 Family history of ischemic heart disease and other diseases of the circulatory system; Z82.0 Family history of epilepsy and other diseases of the nervous system

== ENCOUNTER 2017-07-16 15:50 | Emergency (ER) | payer OTHER ==
[~2017-07-16] VITALS: Ht 165.1 cm; Wt 64.7 kg
[~2017-07-16 15:50] MED LIST changes: +ANT25 PO; +CLOZ25TA2 PO; +CYCL10TA6 PO; -FLUT0.15 NAE; -GLC/500 PO; -MECL1TAB42 PO; -SENN1TAB65 PO; +[UNRECOGNIZED DRUG - CODE] PO
[2017-07-16 15:58] VITALS: TEMP 36.8; Ht 165.1 cm; Wt 64.7 kg
[2017-07-16] MEDS ORDERED: KETOROLAC TROMETHAMINE 60 MG/2 ML VIAL IM STA (16:22)
[2017-07-16] MEDS ORDERED: OMEP20CA9 PO (16:26)
--- NOTE | 2017-07-16 16:27 | EMERGENCY ROOM VISIT NOTE ---
History First contact with patient: 16:03 Chief Complaint: PAIN (GENERALIZED) Stated Complaint: PAIN History of Present Illness The patient is a 66 year old female who presents to the Emergency Room with complaints of headache. The patient reports she has a history of chronic headaches and typically sees Dr. Moreno for these headaches. She reports that she has headaches almost every day and takes Tylenol 3 times daily. She took Tylenol today without relief of her pain. She rates the pain a 9/10 and states it is a frontal headache. The pain radiates into a top and back of her head. She describes it as an aching, throbbing pain. She reports some dizziness associated with the pain as well as light sensitivity. She denies any recent illnesses, nausea/vomiting, numbness/weakness, blurred vision, slurred speech or confusion. She states that this feels like her previous migraine headaches. She does have an appointment with her primary care provider scheduled this week. This is not the worst headache of her life. Review of Systems A complete 10 point review of systems was reviewed with the patient with pertinent positives and negatives as per history of present illness. All else were negative. Past Medical/Surgical History Medical Problems: (1) Anxiety (2) Blurred vision (3) bunion surgery (4) DM2 (diabetes mellitus, type 2) (5) HLD (hyperlipidemia) (6) Hypothyroidism (7) Schizophrenia (8) Somatization disorder (9) Urinary incontinence Surgical Problems: (1) H/O brain surgery (2) H/O cystoscopy (3) H/O foot surgery (4) History of cataract surgery Family History Cancer Diabetes mellitus Heart disease Seizures Social History Smoking Status: Never Smoker Alcohol Use: none Drug Use: none Marital Status: single Housing Status: lives alone Occupation Status: retired Current/Historical Medications Scheduled Acetaminophen (Tylenol), 1,000 MG PO TID Aspirin (Aspirin Chewable), 81 MG PO DAILY Clozapine (Clozapine), 50 MG PO QAM Clozapine (Clozapine), 300 MG PO HS Duloxetine HCl (Duloxetine HCl), 60 MG PO DAILY Fluticasone Propionate (Fluticasone Propionate), 2 SPRAYS DONI DAILY Levothyroxine Sodium (Levothyroxine Sodium), 50 MCG PO QAM Lisinopril (Lisinopril), 5 MG PO DAILY Loratadine (Claritin), 10 MG PO HS Metformin HCl (Metformin HCl), 500 MG PO DAILY Nortriptyline Hcl (Pamelor), 50 MG PO HS Omeprazole (Prilosec), 40 MG PO HS Psyllium (Psyldex), 1 PKT PO HS Ranitidine HCl (Ranitidine HCl), 150 MG PO BID Sennosides-Docusate Sodium (Cvs Senna Plus 8.6-50 mg), 1-2 TABS PO DAILY Simvastatin (Simvastatin), 40 MG PO HS Solifenacin (Vesicare), 10 MG PO QPM Scheduled PRN Ketorolac Tromethamine (Ketorolac Tromethamine), 10 MG PO UD PRN for Headache Polyethylene (Polyethylene Glycol 3350), 17 GM PO DAILY PRN for Constipation Prochlorperazine Maleate (Prochlorperazine Maleate), 10 MG PO Q6H PRN for Nausea Promethazine Hcl (Phenergan), 12.5 MG PO Q8 PRN for Nausea Sumatriptan Succinate (Imitrex), 100 MG PO UD PRN for Headache Physical Exam Vital Signs Date Time Temp Pulse Resp B/P (MAP) Pulse Ox O2 Delivery O2 Flow Rate FiO2 07/16/17 17:33 73 18 169/100 100 07/16/17 15:58 36.8 76 18 154/84 100 Room Air Physical Exam VITALS: Vitals are noted on the nurse's note and reviewed by myself. Vital signs stable. GENERAL: This is a 66-year-old female, in no acute distress, nondiaphoretic, well-developed well-nourished. SKIN: The skin was without rashes. HEAD: Normocephalic atraumatic. EARS: External auditory canals clear, tympanic membranes pearly roman without erythema or effusion bilaterally. No hemotympanum. EYES: Pupils equal round and reactive to light and accommodation. Extraocular movements intact. MOUTH: Mucous membranes moist. Tonsils are not enlarged. Pharynx without erythema or exudate. NECK: Supple without nuchal rigidity. No lymphadenopathy. HEART: Regular rate and rhythm without murmurs gallops or rubs. LUNGS: Clear to auscultation bilaterally without wheezes, rales or rhonchi. MUSCULOSKELETAL: Strength 5/5 throughout. NEURO: Patient was alert and oriented to person place and time. No focal neurological deficits. Medical Decision & Procedures Medications Administered Medications (Trade) Dose Ordered Sig/Artemio Route Start Time Stop Time Status Last Admin Dose Admin Ketorolac Tromethamine (Toradol Inj) 30 mg NOW STAT IM 07/16/17 16:22 07/16/17 16:24 DC 07/16/17 16:41 30 MG Diphenhydramine HCl (Benadryl Cap) 25 mg NOW ONCE PO 07/16/17 16:30 07/16/17 16:31 DC 07/16/17 16:41 25 MG Prochlorperazine Maleate (Compazine Tab) 5 mg NOW ONCE PO 07/16/17 17:15 07/16/17 17:16 DC 07/16/17 17:31 5 MG Medical Decision The differential diagnosis includes acute intracranial bleed, meningitis, encephalitis, mass or mass effect, sinusitis, infection, tumor, headache, temporal arteritis and carbon monoxide exposure, and migraine. The patient was evaluated as above. She is a 66-year-old female who presents complaining of migraine headache. She has a history of migraines and states this feels similar. She was given 30 mg Toradol IM and 25 mg Benadryl by mouth. She reported some relief. She was then given 5 mg Compazine by mouth. She reported improvement and was discharged home in good condition. Medication Reconcilliation Current Medication List: was personally reviewed by me Blood Pressure Screening Patient's blood pressure: Elevated blood pressure Blood pressure disposition: Elevated BP felt to be situational Impression Primary Impression: Headache Departure Information Dispostion Home / Self-Care Condition GOOD Referrals Raymond Vann, D.O. (PCP) Patient Instructions My [facility] Additional Instructions You have been treated in the Emergency Department for a Headache. You have received pain medicine in the emergency department which impairs your ability to operate a vehicle. It is illegal for you to drive after receiving these medicines. You should relax in a quiet, dark place for the rest of the day. Avoid any possible triggers including: cigarette smoke, caffeine, nicotine, chocolate, wine, beer, loud noises or music, or bright lights. You should schedule a follow-up appointment in 2-3 days with your Primary Care Provider or established Neurologist for further evaluation and treatment of your Headache. Return to the Emergency Department if your current symptoms worsen despite treatment course outlined above, or if you develop any of the following symptoms : intractable pain despite aforementioned treatment course, visual disturbances , loss of vision, unilateral weakness or facial drooping, slurring of speech, loss of coordination, or loss of consciousness.
[2017-07-16] MEDS ORDERED: LEVO50TA6 PO (16:33)
[2017-07-16] MEDS ORDERED: IMT100 PO (16:34)
[2017-07-16] MEDS ORDERED: TRD10 PO (16:34)
[2017-07-16] MEDS ORDERED: ASPCH81X PO (16:37)
[2017-07-16] MEDS ORDERED: SENN1TAB99 PO (16:40)
[2017-07-16] MEDS ORDERED: FLNIN/ NAE (16:40)
[2017-07-16] MEDS ORDERED: GLC500 PO (16:40)
[2017-07-16] MEDS ORDERED: ACET-1256 PO (16:43)
[2017-07-16] MEDS ORDERED: PROM25TA9 PO (17:06)
[2017-07-16] MEDS ORDERED: PROCHLORPERAZINE MALEATE 5 MG TAB PO ONE (17:15)
[2017-07-16 17:33] VITALS: BP 169/100; PULSE 73; O2SAT 100
[2017-07-16] MEDS ORDERED: NRT/25 PO (18:38)
[2017-07-16] MEDS ORDERED: LSN5 PO (18:38)
[2017-07-16] MEDS ORDERED: MRLP527 PO (18:38)
[2017-07-16] MEDS ORDERED: CYM60 PO (18:38)
[2017-07-16] MEDS ORDERED: LORA10TA6 PO (18:38)
[2017-07-16] MEDS ORDERED: RANI150T2 PO (18:38)
[2017-07-16] MEDS ORDERED: ZCR40 PO (18:38)
[2017-07-16] MEDS ORDERED: SOLI10TA2 PO (18:38)
[2017-07-16] MEDS ORDERED: CLOZ100T18 PO (22:54)
[2017-07-16] MEDS ORDERED: CMP/10 PO (22:54)
== END 2017-07-16 17:33 | disposition home or self-care (01) ==
LOC: C.EDB 15:51 → C.EDD 17:33
DX: R51 Headache (principal); R42 Dizziness and giddiness; E11.9 Type 2 diabetes mellitus without complications; E03.9 Hypothyroidism, unspecified; F41.9 Anxiety disorder, unspecified; E78.5 Hyperlipidemia, unspecified; F20.9 Schizophrenia, unspecified; Z98.49 Cataract extraction status, unspecified eye; Z98.890 Other specified postprocedural states; Z83.3 Family history of diabetes mellitus; Z82.0 Family history of epilepsy and other diseases of the nervous system; Z79.82 Long term (current) use of aspirin; Z79.84 Long term (current) use of oral hypoglycemic drugs; Z79.899 Other long term (current) drug therapy

== ENCOUNTER 2017-08-20 15:50 | Emergency (ER) | payer OTHER ==
[~2017-08-20 15:50] MED LIST changes: +ACET-1256 PO; -ANT25 PO; +ASPCH81X PO; +CLOZ100T18 PO; +CMP/10 PO; -CYCL10TA6 PO; +CYM60 PO; +FLNIN/ NAE; +GLC500 PO; +IMT100 PO; +LEVO50TA6 PO; +LORA10TA6 PO; +LSN5 PO; +MRLP527 PO; +NRT/25 PO; +OMEP20CA9 PO; +PROM25TA9 PO; +RANI150T2 PO; +SENN1TAB99 PO; +SOLI10TA2 PO; +TRD10 PO; +ZCR40 PO
[2017-08-20 16:07] VITALS: TEMP 37
[2017-08-20] MEDS ORDERED: ACETAMINOPHEN 325 MG TAB PO STA (18:30)
--- NOTE | 2017-08-20 18:38 | EMERGENCY ROOM VISIT NOTE ---
History Report prepared by Ammy: Brigido Jo Under the Supervision of: Dr. Юлия Sanchez M.D. First contact with patient: 18:19 Chief Complaint: DIZZY Stated Complaint: DIZZY,HEAD AND NECK PAIN Nursing Triage Summary: Twisted neck when applying earmuffs. History of Present Illness The patient is a 66 year old female who presents to the Emergency Room with complaints of constant dizziness beginning 5 hours ago. The patient states she has a problem with her neck and has to be careful. She reports she was leaving her house earlier and rotated her neck the wrong way. The patient notes she became dizzy when she was at the store, and it feels like the whole room is spinning. She states she developed nausea and neck pain when she arrived home. The patient reports she has been experiencing more neck pain and headaches than usual, but she has been taking Tylenol. She notes the Tylenol was helping, and she last took it 5 hours ago. The patient states she takes lisinopril daily and took it this morning. She reports she has not seen her PCP in a month. She denies falling down, hitting her head, a decreased appetite, decreased fluid intake, and visionary changes. Source of History: patient Onset: 5 hours ago Position: other (global) Quality: other (dizziness) Timing: constant Modifying Factors (Relieving): tylenol Associated Symptoms: + headache, + neck pain, + nausea Note: Denies: falling down, hitting her head, a decreased appetite, decreased fluid intake, and visionary changes Review of Systems See HPI for pertinent positives & negatives. A total of 10 systems reviewed and were otherwise negative. Past Medical & Surgical Medical Problems: (1) Anxiety (2) Blurred vision (3) bunion surgery (4) DM2 (diabetes mellitus, type 2) (5) HLD (hyperlipidemia) (6) Hypothyroidism (7) Schizophrenia (8) Somatization disorder (9) Urinary incontinence Surgical Problems: (1) H/O brain surgery (2) H/O cystoscopy (3) H/O foot surgery (4) History of cataract surgery Family History Cancer Diabetes mellitus Heart disease Seizures Social History Smoking Status: Never Smoker Alcohol Use: none Drug Use: none Marital Status: single Housing Status: lives alone Occupation Status: retired Current/Historical Medications Scheduled Acetaminophen (Tylenol), 1,000 MG PO TID Aspirin (Aspirin Chewable), 81 MG PO DAILY Clozapine (Clozapine), 50 MG PO QAM Clozapine (Clozapine), 300 MG PO HS Duloxetine HCl (Duloxetine HCl), 60 MG PO DAILY Fluticasone Propionate (Fluticasone Propionate), 2 SPRAYS DONI DAILY Levothyroxine Sodium (Levothyroxine Sodium), 50 MCG PO QAM Lisinopril (Lisinopril), 5 MG PO DAILY Loratadine (Claritin), 10 MG PO HS Metformin HCl (Metformin HCl), 500 MG PO DAILY Nortriptyline Hcl (Pamelor), 50 MG PO HS Omeprazole (Prilosec), 40 MG PO HS Psyllium (Psyldex), 1 PKT PO HS Ranitidine HCl (Ranitidine HCl), 150 MG PO BID Sennosides-Docusate Sodium ([employer] Senna Plus 8.6-50 mg), 1-2 TABS PO DAILY Simvastatin (Simvastatin), 40 MG PO HS Solifenacin (Vesicare), 10 MG PO QPM Scheduled PRN Ketorolac Tromethamine (Ketorolac Tromethamine), 10 MG PO UD PRN for Headache Polyethylene (Polyethylene Glycol 3350), 17 GM PO DAILY PRN for Constipation Prochlorperazine Maleate (Prochlorperazine Maleate), 10 MG PO Q6H PRN for Nausea Promethazine Hcl (Phenergan), 12.5 MG PO Q8 PRN for Nausea Sumatriptan Succinate (Imitrex), 100 MG PO UD PRN for Headache Allergies Coded Allergies: Cephalosporins (Verified Allergy, Unknown, 06/05/17) POLLEN (Verified Allergy, Unknown, seasonal allergy , 06/05/17) Penicillins (Verified Allergy, Unknown, unknown, 06/05/17) Physical Exam Vital Signs Date Time Temp Pulse Resp B/P (MAP) Pulse Ox O2 Delivery O2 Flow Rate FiO2 08/20/17 21:40 68 16 161/95 93 08/20/17 20:04 69 16 160/74 99 Room Air 08/20/17 18:25 75 16 176/107 100 Room Air 08/20/17 16:07 37.0 104 20 142/75 97 Room Air Physical Exam Vital signs reviewed. General: Well-appearing 66 year old female, in no significant distress. HEENT: No scleral icterus, PERRLA, neck supple. Atraumatic. Cardiovascular: Regular rate and rhythm, no extra sounds. Pulmonary: Clear to auscultation bilaterally, normal work of breathing. Abdomen: Soft, nontender, nondistended, positive bowel sounds. Musculoskeletal: Atraumatic, no peripheral edema. Tenderness along the left cervical paraspinous muscles. Neurologic: Patient awake alert and oriented x 3, full strength in all 4 extremities. Cranial nerves 2 through 12 grossly intact. Skin: Warm, dry, no rash Medical Decision & Procedures ER Provider Diagnostic Interpretation: Radiology results as stated below per my review and radiologist interpretation: HEAD WITHOUT CONTRAST (CT) CT DOSE: HISTORY: Mental status change headache TECHNIQUE: Multiaxial CT images of the head were performed without the use of intravenous contrast. A dose lowering technique was utilized adhering to the principles of ALARA. Comparison: 09/27/2016 Findings: The paranasal sinuses and mastoid air cells are clear. The calvarium and skull base are intact. 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 The ventricles and sulci are within normal limits. There is no mass, hematoma, midline shift, or acute infarct. Impression: No acute intracranial abnormality. Chronic changes as noted The above report was generated using voice recognition software. It may contain grammatical, syntax or spelling errors. Electronically signed by: Riley Casey M.D. 08/20/2017 9:03 PM Dictated Date/Time: 08/20/2017 9:01 PM HEAD WITHOUT CONTRAST (CT) CT DOSE: HISTORY: Mental status change headache TECHNIQUE: Multiaxial CT images of the head were performed without the use of intravenous contrast. A dose lowering technique was utilized adhering to the principles of ALARA. Comparison: 09/27/2016 Findings: The paranasal sinuses and mastoid air cells are clear. The calvarium and skull base are intact. 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 The ventricles and sulci are within normal limits. There is no mass, hematoma, midline shift, or acute infarct. Impression: No acute intracranial abnormality. Chronic changes as noted The above report was generated using voice recognition software. It may contain grammatical, syntax or spelling errors. Electronically signed by: Riley Casey M.D. 08/20/2017 9:03 PM Dictated Date/Time: 08/20/2017 9:01 PM Laboratory Results Test 08/20/17 18:54 Bedside Hemoglobin 10.5 g/dl (12.0-16.0) Bedside Hematocrit 31 % (37-47) Bedside Sodium 135 mEq/L (135-144) Bedside Potassium 3.9 mEq/L (3.3-5.0) Bedside Chloride 97 mEq/L (101-112) Bedside Total CO2 28 mEq/l (24-31) Anion Gap 15.0 mmol/L (16-25) Bedside Blood Urea Nitrogen 18 mg/dl (7-18) Bedside Creatinine 0.7 mg/dl (0.6-1.3) Bedside Glucose (other) 99 mg/dl (70-99) Bedside Ionized Calcium (Keeley) 1.19 mmol/l (1.12-1.32) Laboratory results per my review. Medications Administered Medications (Trade) Dose Ordered Sig/Artemio Route Start Time Stop Time Status Last Admin Dose Admin Acetaminophen (Tylenol Tab) 650 mg NOW STAT PO 08/20/17 18:30 08/20/17 18:34 DC 08/20/17 19:10 650 MG ED Course 1825: Past medical records reviewed. The patient was evaluated in room B11B. A complete history and physical examination was performed. 1830: Ordered Acetaminophen 650mg PO 2125: Upon reevaluation, the patient appeared to have improvement of her symptoms. I discussed findings with the patient. She verbalized agreement of the treatment plan. The patient was discharged home. Medical Decision Differential diagnosis: Etiologies such as benign positional vertigo, dehydration, hypovolemia, anemia, tumor, infection, hypoglycemia, electrolyte abnormalities, cardiac sources, intracerebral event, toxicologic, neurologic, as well as others were entertained. This patient was evaluated and appeared to be in some discomfort. The patient is well-known to this emergency department, although complains of a left-sided neck pain that started suddenly after turning her head. The description of the mechanism is concerning for a sudden vascular injury. CT scan of the head was performed and is negative, CT imaging of the neck is negative for acute findings. The patient was reevaluated and had some improvement with Tylenol. She was informed of the findings and advised on conservative management. The patient will be discharged to follow-up with her PCP and to return to the ER for worsening of symptoms or medical concerns. Medication Reconcilliation Current Medication List: was personally reviewed by me Blood Pressure Screening Patient's blood pressure: Elevated blood pressure Blood pressure disposition: Referred to PCP Impression Primary Impression: Cervical strain, acute Scribe Attestation The scribe's documentation has been prepared under my direction and personally reviewed by me in its entirety. I confirm that the note above accurately reflects all work, treatment, procedures, and medical decision making performed by me. Departure Information Dispostion Home / Self-Care Referrals Raymond Vann D.O. (PCP) Forms HOME CARE DOCUMENTATION FORM, IMPORTANT VISIT INFORMATION Patient Instructions My [facility] Additional Instructions Diagnosis: Acute cervical strain Tylenol 650 mg every 6 hours as needed for pain. Warm compresses and gentle stretching for relief. Follow-up with your physician this week for reevaluation. Return to the ER for worsening of symptoms or any medical concerns.
[2017-08-20 19:18] LABS: ISTAT CREATININE 0.7 mg/dl (0.6-1.3); ISTAT IONIZED CALCIUM 1.19 mmol/l (1.12-1.32); ISTAT POTASSIUM 3.9 mEq/L (3.3-5.0)
--- NOTE | 2017-08-20 21:04 | DIAGNOSTIC IMAGING REPORT ---
HEAD WITHOUT CONTRAST (CT) CT DOSE: HISTORY: Mental status change headache TECHNIQUE: Multiaxial CT images of the head were performed without the use of intravenous contrast. A dose lowering technique was utilized adhering to the principles of ALARA. Comparison: 09/27/2016 Findings: The paranasal sinuses and mastoid air cells are clear. The calvarium and skull base are intact. 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 The ventricles and sulci are within normal limits. There is no mass, hematoma, midline shift, or acute infarct. Impression: No acute intracranial abnormality. Chronic changes as noted The above report was generated using voice recognition software. It may contain grammatical, syntax or spelling errors. Electronically signed by: Riley Casey M.D. 08/20/2017 9:03 PM Dictated Date/Time: 08/20/2017 9:01 PM
--- NOTE | 2017-08-20 21:08 | DIAGNOSTIC IMAGING REPORT ---
NECK ANGIO WITH CONTRAST HISTORY: Pain NECK PAIN TECHNIQUE: Multiaxial CT images of the neck were performed following the intravenous administration of contrast to evaluate the major cervical vessels. Maximum intensity projection images were also obtained. All measurements were calculated based on NASCET criteria. A dose lowering technique was utilized adhering to the principles of ALARA. COMPARISON STUDY: 05/15/2012 FINDINGS: The aortic arch and proximal great vessels are widely patent. There is no significant stenosis, occlusion, or dissection identified within the bilateral common carotid, internal carotid, or vertebral arteries. Right vertebral artery is small presumably on a congenital basis. There is mild plaque formation at the carotid bifurcations with no significant stenotic process. The cavernous component of the carotids appears unremarkable. IMPRESSION: No significant stenosis, occlusion, or dissection identified within the carotid or vertebral arteries. Mild plaque formation of the carotid bifurcations bilaterally with no significant stenotic process. Small caliber right vertebral artery presumably on a congenital variation basis. The above report was generated using voice recognition software. It may contain grammatical, syntax or spelling errors. Electronically signed by: Riley Casey M.D. 08/20/2017 9:07 PM Dictated Date/Time: 08/20/2017 9:05 PM
[2017-08-20] MEDS ORDERED: OPTIRAY 320 IV PRN (21:15)
[2017-08-20 21:40] VITALS: BP 161/95; PULSE 68; O2SAT 93
== END 2017-08-20 21:43 | disposition home or self-care (01) ==
LOC: C.EDB 15:52
DX: S16.1XXA Strain of muscle, fascia and tendon at neck level, initial encounter (principal); X50.9XXA Other and unspecified overexertion or strenuous movements or postures, initial encounter; F41.9 Anxiety disorder, unspecified; E11.9 Type 2 diabetes mellitus without complications; E78.5 Hyperlipidemia, unspecified; E03.9 Hypothyroidism, unspecified; F20.9 Schizophrenia, unspecified; F45.0 Somatization disorder; Z83.3 Family history of diabetes mellitus; Z82.0 Family history of epilepsy and other diseases of the nervous system; Z79.82 Long term (current) use of aspirin; Z88.0 Allergy status to penicillin

== ENCOUNTER 2017-10-08 12:28 | Emergency (ER) | payer OTHER ==
[~2017-10-08] VITALS: Ht 165.1 cm; Wt 64.5 kg
[~2017-10-08 12:28] MED LIST changes: -ACET-1256 PO; -ASPCH81X PO; -CLOZ100T18 PO; -CLOZ25TA2 PO; -CMP/10 PO; -CYM60 PO; -FLNIN/ NAE; -GLC500 PO; -IMT100 PO; -LEVO50TA6 PO; -LORA10TA6 PO; -LSN5 PO; -MRLP527 PO; -NRT/25 PO; -OMEP20CA9 PO; -PROM25TA9 PO; -RANI150T2 PO; -SENN1TAB99 PO; -SOLI10TA2 PO; -TRD10 PO; -ZCR40 PO
[2017-10-08 12:44] VITALS: TEMP 36.6; Ht 165.1 cm; Wt 64.5 kg
[2017-10-08] MEDS ORDERED: CLOZ25TA2 PO (15:28)
--- NOTE | 2017-10-08 15:50 | EMERGENCY ROOM VISIT NOTE ---
History Report prepared by Ammy: Jerel Iraheta Under the Supervision of: Dr. Fariba Coppola D.O. First contact with patient: 15:35 Chief Complaint: OVERDOSE (ACCIDENTAL) Stated Complaint: HEAD PAIN, DIZZY Nursing Triage Summary: I accidentally overdosed this morning when I took my pills. i think I took an extra levoxyl and cymbalta today. I have head pressure History of Present Illness The patient is a 67 year old female with a history of anxiety who presents to the Emergency Room with complaints of a sudden accidental overdose that occurred this morning. She states that when she was taking her daily medications this morning on her pill tray that is filled by her home health nurse, she thinks that she accidentally took an extra Levoxyl and Cymbalta around 0745. The patient states that she called Poison Control, and was told that she should be fine. At that time, the patient was asymptomatic, but around 1100 this morning, she started feeling intense pain around the top and front of her head in addition to dizziness. She notes that she then started getting abdominal pain while in the waiting room, and was nauseous. She says that the abdominal pain and headache are still there, but she is not nauseous anymore. The patient notes that she has been taking these 2 medications "for years". She denies any chest pain, shortness of breath, vision changes, or a recent stomach bug. She says that she felt fine when she got up this morning. Patient states she has been having normal bowel movements recently, no diarrhea, no black or bloody stools. Source of History: patient Onset: This morning Position: other (global) Symptom Intensity: accidental Quality: other (overdose) Timing: other (sudden) Associated Symptoms: + headache, + nausea, + abdominal pain, No chest pain, No SOB Note: Dizziness. Denies vision changes. Review of Systems See HPI for pertinent positives & negatives. A total of 10 systems reviewed and were otherwise negative. Past Medical & Surgical Medical Problems: (1) Anxiety (2) Blurred vision (3) bunion surgery (4) DM2 (diabetes mellitus, type 2) (5) HLD (hyperlipidemia) (6) Hypothyroidism (7) Schizophrenia (8) Somatization disorder (9) Urinary incontinence Surgical Problems: (1) H/O brain surgery (2) H/O cystoscopy (3) H/O foot surgery (4) History of cataract surgery Family History Cancer Diabetes mellitus Heart disease Seizures Social History Smoking Status: Never Smoker Alcohol Use: none Drug Use: none Marital Status: single Housing Status: lives alone Occupation Status: retired Current/Historical Medications Scheduled Acetaminophen (Tylenol), 1,000 MG PO TID Aspirin (Aspirin Chewable), 81 MG PO DAILY Clozapine (Clozapine), 50 MG PO QAM Clozapine (Clozapine), 300 MG PO HS Duloxetine HCl (Duloxetine HCl), 60 MG PO DAILY Fluticasone Propionate (Fluticasone Propionate), 2 SPRAYS DONI DAILY Levothyroxine Sodium (Levothyroxine Sodium), 50 MCG PO QAM Lisinopril (Lisinopril), 5 MG PO DAILY Loratadine (Claritin), 10 MG PO HS Metformin HCl (Metformin HCl), 500 MG PO DAILY Nortriptyline Hcl (Pamelor), 50 MG PO HS Omeprazole (Prilosec), 40 MG PO HS Psyllium (Psyldex), 1 PKT PO HS Ranitidine HCl (Ranitidine HCl), 150 MG PO BID Sennosides-Docusate Sodium ([employer]vs Senna Plus 8.6-50 mg), 1-2 TABS PO DAILY Simvastatin (Simvastatin), 40 MG PO HS Solifenacin (Vesicare), 10 MG PO QPM Scheduled PRN Ketorolac Tromethamine (Ketorolac Tromethamine), 10 MG PO UD PRN for Headache Polyethylene (Polyethylene Glycol 3350), 17 GM PO DAILY PRN for Constipation Prochlorperazine Maleate (Prochlorperazine Maleate), 10 MG PO Q6H PRN for Nausea Promethazine Hcl (Phenergan), 12.5 MG PO Q8 PRN for Nausea Sumatriptan Succinate (Imitrex), 100 MG PO UD PRN for Headache Allergies Coded Allergies: Cephalosporins (Verified Allergy, Unknown, 06/05/17) POLLEN (Verified Allergy, Unknown, seasonal allergy , 06/05/17) Penicillins (Verified Allergy, Unknown, unknown, 06/05/17) Physical Exam Vital Signs Date Time Temp Pulse Resp B/P (MAP) Pulse Ox O2 Delivery O2 Flow Rate FiO2 10/08/17 18:46 66 20 176/87 100 4/9/18 17:35 74 18 130/70 95 Room Air 10/08/17 15:37 77 20 136/84 99 Room Air 10/08/17 12:44 36.6 83 18 121/64 98 Room Air Physical Exam GENERAL: alert, well appearing, well nourished, no distress, non-toxic EYE EXAM: normal conjunctiva, PERRL and EOM's grossly intact OROPHARYNX: no exudate, no erythema, lips, buccal mucosa, and tongue normal and mucous membranes are moist NECK: supple, no nuchal rigidity, no adenopathy, non-tender LUNGS: Clear to auscultation. Normal chest wall mechanics HEART: no murmurs, S1 normal and S2 normal ABDOMEN: abdomen soft, non-tender, normo-active bowel sounds, no masses, no rebound or guarding. BACK: Back is symmetrical on inspection and there is no deformity, no midline tenderness, no CVA tenderness. SKIN: no rashes and no bruising UPPER EXTREMITIES: upper extremities are grossly normal. LOWER EXTREMITIES: No pitting edema. NEURO EXAM: Normal sensorium, cranial nerves II-XII grossly intact, normal speech, no gross weakness of arms, no gross weakness of legs. Medical Decision & Procedures ER Provider Diagnostic Interpretation: Radiology results have been interpreted by the radiologist and reviewed by me. HEAD WITHOUT CONTRAST (CT) CLINICAL HISTORY: 67 years-old Female presenting with headache. TECHNIQUE: Multidetector CT imaging of the head was performed without the use of intravenous contrast. IV contrast: None. A dose lowering technique was used consistent with the principles of ALARA (as low as reasonably achievable). COMPARISON: 08/20/2017. CT DOSE (mGy.cm): The estimated cumulative dose is 638.56 mGycm. FINDINGS: [employer] topogram: Unremarkable. Proportional ventricular and sulcal prominence, likely age-related parenchymal volume loss. Brain parenchyma normal in appearance with preserved roman-white differentiation. No mass effect or midline shift. No hemorrhage or acute territorial infarct. No extra-axial fluid collection. Postsurgical changes of the right parietal calvarium. No acute osseous injury. IMPRESSION: 1. No acute intracranial abnormality. Electronically signed by: Kirit López M.D. 10/08/2017 5:24 PM Dictated Date/Time: 10/08/2017 5:19 PM PA CHEST WITH ABDOMINAL SERIES CLINICAL HISTORY: Nausea and vomiting. Generalized abdominal pain. FINDINGS: A PA chest radiograph is compared to study dated 12/16/2016. Correlation is a with chest CT dated 06/19/2011 The examination is degraded by patient rotation. The heart is enlarged. The pulmonary vasculature is noncongested. Chronic interstitial thickening is similar to previous. No pneumothorax is seen. The skeletal structures are osteopenic. The bony thorax is grossly intact. Supine and erect abdominal radiographs are correlated with abdominal CT dated 06/19/2011. There is a nonobstructed abdominal bowel gas pattern. Severe constipation is identified. No evidence of intraperitoneal free air is seen. There are no abnormal abdominal calcifications. The lumbosacral spine and bony pelvis appear intact. There is mild lumbosacral spondylosis and scoliosis. IMPRESSION: 1. Cardiomegaly with no active disease in the chest. 2. Severe constipation. Electronically signed by: Patel Qiu M.D. 10/08/2017 5:56 PM Dictated Date/Time: 10/08/2017 5:54 PM Laboratory Results 10/08/17 16:15 Red Blood Count 3.60, Mean Corpuscular Volume 89.2, Mean Corpuscular Hemoglobin 29.4, Mean Corpuscular Hemoglobin Concent 33.0, Mean Platelet Volume 9.6, Neutrophils (%) (Auto) 65.2, Lymphocytes (%) (Auto) 28.0, Monocytes (%) (Auto) 6.2, Eosinophils (%) (Auto) 0.0, Basophils (%) (Auto) 0.6, Neutrophils # (Auto) 3.37, Lymphocytes # (Auto) 1.45, Monocytes # (Auto) 0.32, Eosinophils # (Auto) 0.00, Basophils # (Auto) 0.03 10/08/17 16:15 Test 10/08/17 16:15 10/08/17 16:20 White Blood Count 5.17 K/uL (4.8-10.8) Red Blood Count 3.60 M/uL (4.2-5.4) Hemoglobin 10.6 g/dL (12.0-16.0) Hematocrit 32.1 % (37-47) Mean Corpuscular Volume 89.2 fL (80-100) Mean Corpuscular Hemoglobin 29.4 pg (25-34) Mean Corpuscular Hemoglobin Concent 33.0 g/dl (32-36) Platelet Count 218 K/uL (130-400) Mean Platelet Volume 9.6 fL (7.4-10.4) Neutrophils (%) (Auto) 65.2 % Lymphocytes (%) (Auto) 28.0 % Monocytes (%) (Auto) 6.2 % Eosinophils (%) (Auto) 0.0 % Basophils (%) (Auto) 0.6 % Neutrophils # (Auto) 3.37 K/uL (1.4-6.5) Lymphocytes # (Auto) 1.45 K/uL (1.2-3.4) Monocytes # (Auto) 0.32 K/uL (0.11-0.59) Eosinophils # (Auto) 0.00 K/uL (0-0.5) Basophils # (Auto) 0.03 K/uL (0-0.2) RDW Standard Deviation 45.1 fL (36.4-46.3) RDW Coefficient of Variation 13.7 % (11.5-14.5) Immature Granulocyte % (Auto) 0.0 % Immature Granulocyte # (Auto) 0.00 K/uL (0.00-0.02) Prothrombin Time 10.5 SECONDS (9.0-12.0) Prothromb Time International Ratio 1.0 (0.9-1.1) Anion Gap 6.0 mmol/L (3-11) Est Creatinine Clear Calc Drug Dose 65.5 ml/min Estimated GFR () 96.5 Estimated GFR (Non- 83.2 BUN/Creatinine Ratio 19.0 (10-20) Calcium Level 8.6 mg/dl (8.5-10.1) Total Bilirubin 0.3 mg/dl (0.2-1) Aspartate Amino Transf (AST/SGOT) 13 U/L (15-37) Alanine Aminotransferase (ALT/SGPT) 20 U/L (12-78) Alkaline Phosphatase 79 U/L (45-117) Troponin I < 0.015 ng/ml (0-0.045) Total Protein 6.5 gm/dl (6.4-8.2) Albumin 3.5 gm/dl (3.4-5.0) Globulin 3.0 gm/dl (2.5-4.0) Albumin/Globulin Ratio 1.2 (0.9-2) Thyroid Stimulating Hormone (TSH) 1.080 uIu/ml (0.300-4.500) Lactic Acid Level 1.3 mmol/L (0.4-2.0) Laboratory results per my review. Medications Administered Medications (Trade) Dose Ordered Sig/Artemio Route Start Time Stop Time Status Last Admin Dose Admin Sodium Chloride 500 ml @ 999 mls/hr Q31M STAT IV 10/08/17 16:01 10/08/17 16:31 DC 10/08/17 16:01 999 MLS/HR Ondansetron HCl (Zofran Inj) 4 mg NOW STAT IV 10/08/17 17:20 10/08/17 17:21 DC 10/08/17 17:33 4 MG Acetaminophen (Tylenol Tab) 1,000 mg NOW STAT PO 10/08/17 18:26 10/08/17 18:27 DC 10/08/17 18:43 1,000 MG ECG Per My Interpretation Indication: toxicologic Rate (beats per minute): 73 Rhythm: normal sinus Findings: PVC, no acute ischemic change, other (normal axis, normal intervals) ED Course 1542: The patient was evaluated in room B3B. A complete history and physical exam was performed. 1601: NSS 500 ml @ 999 mls/hr IV. 1720: Zofran Inj 4 mg IV. 1723: I reevaluated and updated the patient. 1826: Tylenol Tab 1000 mg PO. 1828: Upon reevaluation, the patient is feeling better. I discussed the findings and the treatment plan with the patient. She verbalizes agreement and understanding. She was discharged home. Medical Decision Differential diagnosis: Etiologies such as toxicologic, infection, hypoglycemia, electrolyte abnormalities, cardiac sources, intracerebral event, neurologic, as well as others were entertained. Patient well-appearing here despite complaints. Abdominal pain and headache possibly side effects of accidental extra dose of her routine medications. Also discussed with patient abdominal pain may be due to constipation additional x-rays. Patient relates she has been having regular daily bowel movements. Discussed with her diet and hydration to promote regular bowel movements and avoid constipation. Patient's headache resolved here following observation department. Head CT was unremarkable. Labs otherwise reassuring. Vital signs are stable throughout. I do not feel patient has sustained a significant or toxic ingestion. Patient may have had some brief side effects from taking extra dose of her medications, but I do not believe she will have any additional side effects. Discussed with patient follow-up with family doctor as a precaution, symptoms to watch and return for, careful usage of her routine prescribed medications, she verbalized understanding and was agreeable with plan. I do not feel this was an intentional overdose. I do not feel patient is an imminent danger to herself or others. Medication Reconcilliation Current Medication List: was personally reviewed by me Blood Pressure Screening Patient's blood pressure: Normal blood pressure Impression Primary Impression: Headache Additional Impressions: Abdominal pain Accidental overdose Scribe Attestation The scribe's documentation has been prepared under my direction and personally reviewed by me in its entirety. I confirm that the note above accurately reflects all work, treatment, procedures, and medical decision making performed by me. Departure Information Dispostion Home / Self-Care Referrals Raymond Vann, D.O. (PCP) Patient Instructions My [facility] Additional Instructions Please be cautious when taking your medications. Please try not to take anything more than you're prescribed at your scheduled time. Please make sure you are drinking plenty of water to stay well-hydrated. You may use Tylenol as needed for pain. If you have any new or worsening symptoms, or have any other new concerns, please return the emergency room. Problem Qualifiers Primary Impression: Headache Headache type: unspecified Headache chronicity pattern: episodic headache Intractability: not intractable Qualified Codes: R51 - Headache Additional Impressions: Abdominal pain Abdominal location: generalized Qualified Codes: R10.84 - Generalized abdominal pain Accidental overdose Encounter type: initial encounter Qualified Codes: T50.901A - Poisoning by unspecified drugs, medicaments and biological substances, accidental ( unintentional), initial encounter
[2017-10-08] MEDS ORDERED: SODIUM CHLORIDE 0.9% 500ML 500 ML IV STA (16:01)
[2017-10-08] MEDS ORDERED: OMEP20CA9 PO (16:26)
[2017-10-08] MEDS ORDERED: LEVO50TA6 PO (16:33)
[2017-10-08] MEDS ORDERED: IMT100 PO (16:34)
[2017-10-08] MEDS ORDERED: TRD10 PO (16:34)
[2017-10-08 16:37] LABS: BASO % 0.6 %; BASO ABS # 0.03 K/uL (0-0.2); HEMATOCRIT 32.1 % (37-47); HEMOGLOBIN 10.6 g/dL (12.0-16.0); LYMPH ABS # 1.45 K/uL (1.2-3.4); MEAN CELL VOLUME 89.2 fL (80-100); MEAN CORPUSCULAR HEMOGLOBIN 29.4 pg (25-34); MEAN PLATELET VOLUME 9.6 fL (7.4-10.4); MONO % 6.2 %; MONO ABS # 0.32 K/uL (0.11-0.59); NEUT % 65.2 %; NEUT ABS # 3.37 K/uL (1.4-6.5); PLATELET COUNT 218 K/uL (130-400); RED CELL DISTRIBUTION WIDTH CV 13.7 % (11.5-14.5); RED CELL DISTRIBUTION WIDTH SD 45.1 fL (36.4-46.3); WHITE BLOOD COUNT 5.17 K/uL (4.8-10.8)
[2017-10-08] MEDS ORDERED: ASPCH81X PO (16:37)
[2017-10-08] MEDS ORDERED: GLC500 PO (16:40)
[2017-10-08] MEDS ORDERED: SENN1TAB99 PO (16:40)
[2017-10-08] MEDS ORDERED: FLNIN/ NAE (16:40)
[2017-10-08] MEDS ORDERED: ACET-1256 PO (16:43)
[2017-10-08 16:58] LABS: ALBUMIN 3.5 gm/dl (3.4-5.0); ALT/SGPT 20 U/L (12-78); BLOOD UREA NITROGEN 14 mg/dl (7-18); CALCIUM 8.6 mg/dl (8.5-10.1); CARBON DIOXIDE 26 mmol/L (21-32); CREATININE 0.74 mg/dl (0.60-1.20); GLUCOSE 93 mg/dl (70-99); POTASSIUM 3.8 mmol/L (3.5-5.1); SODIUM 135 mmol/L (136-145)
[2017-10-08] MEDS ORDERED: PROM25TA9 PO (17:06)
[2017-10-08 17:09] LABS: ALKALINE PHOSPHATASE 79 U/L (45-117); AST/SGOT 13 U/L (15-37); TOTAL PROTEIN 6.5 gm/dl (6.4-8.2)
[2017-10-08] MEDS ORDERED: ONDANSETRON INJ 2 MG/ML 2 ML VIAL IV STA (17:20)
--- NOTE | 2017-10-08 17:25 | DIAGNOSTIC IMAGING REPORT ---
HEAD WITHOUT CONTRAST (CT) CLINICAL HISTORY: 67 years-old Female presenting with headache. TECHNIQUE: Multidetector CT imaging of the head was performed without the use of intravenous contrast. IV contrast: None. A dose lowering technique was used consistent with the principles of ALARA (as low as reasonably achievable). COMPARISON: 08/20/2017. CT DOSE (mGy.cm): The estimated cumulative dose is 638.56 mGycm. FINDINGS: [employer] topogram: Unremarkable. Proportional ventricular and sulcal prominence, likely age-related parenchymal volume loss. Brain parenchyma normal in appearance with preserved roman-white differentiation. No mass effect or midline shift. No hemorrhage or acute territorial infarct. No extra-axial fluid collection. Postsurgical changes of the right parietal calvarium. No acute osseous injury. IMPRESSION: 1. No acute intracranial abnormality. Electronically signed by: Kirit López M.D. 10/08/2017 5:24 PM Dictated Date/Time: 10/08/2017 5:19 PM
--- NOTE | 2017-10-08 17:58 | DIAGNOSTIC IMAGING REPORT ---
PA CHEST WITH ABDOMINAL SERIES CLINICAL HISTORY: Nausea and vomiting. Generalized abdominal pain. FINDINGS: A PA chest radiograph is compared to study dated 12/16/2016. Correlation is a with chest CT dated 06/19/2011 The examination is degraded by patient rotation. The heart is enlarged. The pulmonary vasculature is noncongested. Chronic interstitial thickening is similar to previous. No pneumothorax is seen. The skeletal structures are osteopenic. The bony thorax is grossly intact. Supine and erect abdominal radiographs are correlated with abdominal CT dated 06/19/2011. There is a nonobstructed abdominal bowel gas pattern. Severe constipation is identified. No evidence of intraperitoneal free air is seen. There are no abnormal abdominal calcifications. The lumbosacral spine and bony pelvis appear intact. There is mild lumbosacral spondylosis and scoliosis. IMPRESSION: 1. Cardiomegaly with no active disease in the chest. 2. Severe constipation. Electronically signed by: Patel Qiu M.D. 10/08/2017 5:56 PM Dictated Date/Time: 10/08/2017 5:54 PM
[2017-10-08] MEDS ORDERED: ACETAMINOPHEN 500 MG TAB PO STA (18:26)
[2017-10-08] MEDS ORDERED: ZCR40 PO (18:38)
[2017-10-08] MEDS ORDERED: SOLI10TA2 PO (18:38)
[2017-10-08] MEDS ORDERED: RANI150T2 PO (18:38)
[2017-10-08] MEDS ORDERED: NRT/25 PO (18:38)
[2017-10-08] MEDS ORDERED: LORA10TA6 PO (18:38)
[2017-10-08] MEDS ORDERED: CYM60 PO (18:38)
[2017-10-08] MEDS ORDERED: LSN5 PO (18:38)
[2017-10-08] MEDS ORDERED: MRLP527 PO (18:38)
[2017-10-08 18:46] VITALS: BP 176/87; PULSE 66; O2SAT 100
[2017-10-08] MEDS ORDERED: CLOZ100T18 PO (22:54)
[2017-10-08] MEDS ORDERED: CMP/10 PO (22:54)
== END 2017-10-08 18:47 | disposition home or self-care (01) ==
LOC: C.EDB 12:30
DX: T38.1X1A Poisoning by thyroid hormones and substitutes, accidental (unintentional), initial encounter (principal); T43.291A Poisoning by other antidepressants, accidental (unintentional), initial encounter; K59.00 Constipation, unspecified; I51.7 Cardiomegaly; R51 Headache; R11.0 Nausea; R10.9 Unspecified abdominal pain; F41.9 Anxiety disorder, unspecified; E11.9 Type 2 diabetes mellitus without complications; E03.9 Hypothyroidism, unspecified; F20.9 Schizophrenia, unspecified; Z79.82 Long term (current) use of aspirin; Z88.0 Allergy status to penicillin; Z79.899 Other long term (current) drug therapy

== ENCOUNTER 2017-11-03 16:42 | Emergency (ER) | payer OTHER ==
[~2017-11-03 16:42] MED LIST changes: +ACET-1256 PO; +ASPCH81X PO; +CLOZ100T18 PO; +CLOZ25TA2 PO; +CMP/10 PO; +CYM60 PO; +FLNIN/ NAE; +GLC500 PO; +IMT100 PO; +LEVO50TA6 PO; +LORA10TA6 PO; +LSN5 PO; +MRLP527 PO; +NRT/25 PO; +OMEP20CA9 PO; +PROM25TA9 PO; +RANI150T2 PO; +SENN1TAB99 PO; +SOLI10TA2 PO; +TRD10 PO; +ZCR40 PO
[2017-11-03 16:55] VITALS: TEMP 36.8; Ht 162.6 cm
[2017-11-03 17:35] LABS: BASO % 0.8 %; BASO ABS # 0.04 K/uL (0-0.2); EOS % 0.2 %; EOS ABS # 0.01 K/uL (0-0.5); HEMATOCRIT 31.6 % (37-47); HEMOGLOBIN 10.5 g/dL (12.0-16.0); IG# 0.01 K/uL (0.00-0.02); LYMPH ABS # 1.51 K/uL (1.2-3.4); MEAN CORPUSCULAR HEMOGLOBIN 29.2 pg (25-34); MEAN CORPUSCULAR HGB CONC 33.2 g/dl (32-36); MEAN PLATELET VOLUME 9.8 fL (7.4-10.4); MONO % 8.5 %; NEUT % 58.3 %; NEUT ABS # 2.75 K/uL (1.4-6.5); PLATELET COUNT 183 K/uL (130-400); RED CELL DISTRIBUTION WIDTH CV 13.8 % (11.5-14.5); RED CELL DISTRIBUTION WIDTH SD 44.4 fL (36.4-46.3); WHITE BLOOD COUNT 4.72 K/uL (4.8-10.8)
[2017-11-03 17:53] LABS: ALBUMIN 3.7 gm/dl (3.4-5.0); ALT/SGPT 23 U/L (12-78); AST/SGOT 16 U/L (15-37); BLOOD UREA NITROGEN 20 mg/dl (7-18); CALCIUM 8.7 mg/dl (8.5-10.1); CARBON DIOXIDE 26 mmol/L (21-32); CREATININE 0.82 mg/dl (0.60-1.20); GLUCOSE 94 mg/dl (70-99); LIPASE 235 U/L (73-393); SODIUM 134 mmol/L (136-145)
[2017-11-03 17:58] LABS: ALKALINE PHOSPHATASE 82 U/L (45-117); TOTAL PROTEIN 6.5 gm/dl (6.4-8.2)
--- NOTE | 2017-11-03 18:37 | EMERGENCY ROOM VISIT NOTE ---
History Report prepared by Ammy: Melanie Mays Under the Supervision of: Dr. Alpesh Moser M.D. First contact with patient: 16:55 Chief Complaint: HEADACHE Stated Complaint: HEADACHE History of Present Illness The patient is a 67 year old female who presents to the Emergency Room with complaints of persistent difficulty moving starting earlier today. The patient presents to the ED by EMS. She has been following with her neurologist for "robotic" movements. She reports that when she walks, her movements are stiff. She states that she was instructed by her neurologist to go do the ED if these movements recurred. She has a headache. She has some neck pain from a previous injury. She denies any fever, chest pain, SOB, abdominal pain, change in bowel movement, urinary symptoms, trouble speaking or swallowing. She denies any fall or injury. She denies any new medications. Source of History: patient Onset: earlier today Position: head Quality: other (difficulty moving) Timing: other (persistent) Associated Symptoms: + headache, + neck pain, No fevers, No chest pain, No SOB, No abdominal pain, No urinary symptoms Review of Systems See HPI for pertinent positives & negatives. A total of 10 systems reviewed and were otherwise negative. Past Medical & Surgical Medical Problems: (1) Anxiety (2) Blurred vision (3) bunion surgery (4) DM2 (diabetes mellitus, type 2) (5) HLD (hyperlipidemia) (6) Hypothyroidism (7) Schizophrenia (8) Somatization disorder (9) Urinary incontinence Surgical Problems: (1) H/O brain surgery (2) H/O cystoscopy (3) H/O foot surgery (4) History of cataract surgery Old medical records were reviewed. Nurse's notes were reviewed and I agree with. Family History Cancer Diabetes mellitus Heart disease Seizures Social History Smoking Status: Never Smoker Alcohol Use: none Drug Use: none Marital Status: single Housing Status: lives alone Occupation Status: retired Current/Historical Medications Scheduled Acetaminophen (Tylenol), 1,000 MG PO TID Aspirin (Aspirin Chewable), 81 MG PO DAILY Clozapine (Clozapine), 50 MG PO QAM Clozapine (Clozapine), 300 MG PO HS Duloxetine HCl (Duloxetine HCl), 60 MG PO DAILY Fluticasone Propionate (Fluticasone Propionate), 2 SPRAYS DONI DAILY Levothyroxine Sodium (Levothyroxine Sodium), 50 MCG PO QAM Lisinopril (Lisinopril), 5 MG PO DAILY Loratadine (Claritin), 10 MG PO HS Metformin HCl (Metformin HCl), 500 MG PO DAILY Nortriptyline Hcl (Pamelor), 50 MG PO HS Omeprazole (Prilosec), 40 MG PO HS Psyllium (Psyldex), 1 PKT PO HS Ranitidine HCl (Ranitidine HCl), 150 MG PO BID Sennosides-Docusate Sodium ([employer]vs Senna Plus 8.6-50 mg), 1-2 TABS PO DAILY Simvastatin (Simvastatin), 40 MG PO HS Solifenacin (Vesicare), 10 MG PO QPM Scheduled PRN Polyethylene (Polyethylene Glycol 3350), 17 GM PO DAILY PRN for Constipation Prochlorperazine Maleate (Prochlorperazine Maleate), 10 MG PO Q6H PRN for Nausea Promethazine Hcl (Phenergan), 12.5 MG PO Q8 PRN for Nausea Sumatriptan Succinate (Imitrex), 100 MG PO UD PRN for Headache Allergies Coded Allergies: Cephalosporins (Verified Allergy, Unknown, 06/05/17) POLLEN (Verified Allergy, Unknown, seasonal allergy , 06/05/17) Penicillins (Verified Allergy, Unknown, unknown, 06/05/17) Physical Exam Vital Signs Date Time Temp Pulse Resp B/P (MAP) Pulse Ox O2 Delivery O2 Flow Rate FiO2 11/03/17 18:45 80 18 166/93 96 Room Air 11/03/17 16:55 36.8 74 22 169/88 99 Room Air Physical Exam General: Non-ill appearing older female in no acute distress. GCS of 15. HEENT: Normal cephalic atraumatic. Pupils are equal round and reactive to light. Extraocular movements are intact. Oropharynx is pink with moist mucous membranes. No swelling of the mouth lips or tongue. Neck: Supple with a midline trachea. No meningeal signs or stiffness, no JVD or bruits. No Stridor. Chest: Clear to auscultation bilaterally. No wheezes or rhonchi. No increased work of breathing. Heart: regular rate and rhythm. Abdomen: Soft nontender, nondistended without rebound guarding or rigidity. Extremities: No cyanosis clubbing or edema. No calf tenderness or assymetry Spine/Back. Non tender to palpation. No CVA tenderness Skin: Good turgor without rashes. Neurologic exam: Cranial nerves two through 12 are intact. Motor and sensation are intact and symmetrical throughout. Normal movement, normal gait, finger to nose intact, no tremor. Medical Decision & Procedures Laboratory Results 11/03/17 17:20 Red Blood Count 3.59, Mean Corpuscular Volume 88.0, Mean Corpuscular Hemoglobin 29.2, Mean Corpuscular Hemoglobin Concent 33.2, Mean Platelet Volume 9.8, Neutrophils (%) (Auto) 58.3, Lymphocytes (%) (Auto) 32.0, Monocytes (%) (Auto) 8.5, Eosinophils (%) (Auto) 0.2, Basophils (%) (Auto) 0.8, Neutrophils # (Auto) 2.75, Lymphocytes # (Auto) 1.51, Monocytes # (Auto) 0.40, Eosinophils # (Auto) 0.01, Basophils # (Auto) 0.04 11/03/17 17:20 Test 11/03/17 17:20 11/03/17 17:29 White Blood Count 4.72 K/uL (4.8-10.8) Red Blood Count 3.59 M/uL (4.2-5.4) Hemoglobin 10.5 g/dL (12.0-16.0) Hematocrit 31.6 % (37-47) Mean Corpuscular Volume 88.0 fL (80-100) Mean Corpuscular Hemoglobin 29.2 pg (25-34) Mean Corpuscular Hemoglobin Concent 33.2 g/dl (32-36) Platelet Count 183 K/uL (130-400) Mean Platelet Volume 9.8 fL (7.4-10.4) Neutrophils (%) (Auto) 58.3 % Lymphocytes (%) (Auto) 32.0 % Monocytes (%) (Auto) 8.5 % Eosinophils (%) (Auto) 0.2 % Basophils (%) (Auto) 0.8 % Neutrophils # (Auto) 2.75 K/uL (1.4-6.5) Lymphocytes # (Auto) 1.51 K/uL (1.2-3.4) Monocytes # (Auto) 0.40 K/uL (0.11-0.59) Eosinophils # (Auto) 0.01 K/uL (0-0.5) Basophils # (Auto) 0.04 K/uL (0-0.2) RDW Standard Deviation 44.4 fL (36.4-46.3) RDW Coefficient of Variation 13.8 % (11.5-14.5) Immature Granulocyte % (Auto) 0.2 % Immature Granulocyte # (Auto) 0.01 K/uL (0.00-0.02) Anion Gap 6.0 mmol/L (3-11) Estimated GFR () 85.2 Estimated GFR (Non- 73.5 BUN/Creatinine Ratio 25.0 (10-20) Calcium Level 8.7 mg/dl (8.5-10.1) Total Bilirubin 0.3 mg/dl (0.2-1) Direct Bilirubin < 0.1 mg/dl (0-0.2) Aspartate Amino Transf (AST/SGOT) 16 U/L (15-37) Alanine Aminotransferase (ALT/SGPT) 23 U/L (12-78) Alkaline Phosphatase 82 U/L (45-117) Total Protein 6.5 gm/dl (6.4-8.2) Albumin 3.7 gm/dl (3.4-5.0) Lipase 235 U/L (73-393) Bedside Troponin I < 0.030 ng/ml (0-0.045) Laboratory studies as stated above per my review. ECG Per My Interpretation Indication: other Rate (beats per minute): 72 Rhythm: normal sinus Findings: PVC (occasional), no acute ischemic change Comparison ECG Date: 08-Oct-2017 Change: no significant change ED Course 165: Past medical records reviewed. The patient was evaluated in room A10, and a complete history and physical examination were performed. 1835: Upon reevaluation, the patient is resting comfortably. I discussed the results and treatment plan with her. She verbalized agreement of the treatment plan. The patient was discharged home. Medical Decision Differentials include, but are not limited to; neurologic process, infection, electrolyte or metabolic abnormality, cardiac disease. This patient comes in as described above. She has a long history of headaches and neck pain and frequent visits the ER she felt like her movement was more robotic than normal. She looks well on exam and has a normal neurologic exam had her ambulate she does so without difficulty. I do not repeat the CAT scan of her head as she has no or trauma and has had multiple CAT scans in the past. EKG was obtained and shows no acute coronary syndrome or arrhythmia. There is no acute electrolyte or metabolic abnormalities. I have reviewed her neurology note from Dr. Moreno this week. At this point the patient is stable and can go home. She should return if: worsening of symptoms, fever or chills, any new problems or concerns. Medication Reconcilliation Current Medication List: was personally reviewed by me Blood Pressure Screening Patient's blood pressure: Elevated blood pressure Blood pressure disposition: Referred to PCP Impression Primary Impression: Headache Scribe Attestation The scribe's documentation has been prepared under my direction and personally reviewed by me in its entirety. I confirm that the note above accurately reflects all work, treatment, procedures, and medical decision making performed by me. Departure Information Dispostion Home / Self-Care Referrals Raymond Vann D.O. (PCP) Forms HOME CARE DOCUMENTATION FORM, IMPORTANT VISIT INFORMATION Patient Instructions My [facility] Additional Instructions Rest. Drink plenty of fluids. Be careful in getting up and down Return if: Increasing pain, numbness or weakness, fever or chills, worsening symptoms, any new problems or concerns Follow-up with your doctor this week for recheck
[2017-11-03 18:45] VITALS: BP 166/93; PULSE 80; O2SAT 96
== END 2017-11-03 18:51 | disposition home or self-care (01) ==
LOC: EDBD 16:42 → C.EDA 16:43
DX: R51 Headache (principal); F41.9 Anxiety disorder, unspecified; E11.9 Type 2 diabetes mellitus without complications; E78.5 Hyperlipidemia, unspecified; E03.9 Hypothyroidism, unspecified; F20.9 Schizophrenia, unspecified; F45.0 Somatization disorder; Z79.82 Long term (current) use of aspirin; Z79.899 Other long term (current) drug therapy; Z88.1 Allergy status to other antibiotic agents; Z88.0 Allergy status to penicillin; Z91.048 Other nonmedicinal substance allergy status

== ENCOUNTER 2019-07-28 13:36 | Inpatient (IN) ==
--- NOTE | 2019-07-28 14:19 | XRay Report ---
XR chest 1V portable CLINICAL HISTORY: Typical chest pain COMPARISON STUDY: 05/31/2019 FINDINGS: The cardiac and mediastinal contours are normal. There is no evidence of focal pulmonary co nsolidation. There is no evidence of failure. No pleural effusions are visualized.[There is minor lef t basilar atelectasis. IMPRESSION: No active disease in the chest. ACT 112: Negative or not required by law. Electronically signed by: Michele Juares M.D. 07/28/2019 2:18 PM
[2019-07-28 14:22] LABS: Basophils # (auto) 0.04 K/uL (0-0.2); Basophils % (auto) 0.4 %; Hematocrit (blood only) 30.5 % (37-47); Immature Granulocytes # (auto) 0.02 K/uL (0.00-0.02); Immature Granulocytes % (auto) 0.2 %; Lymphocytes # (auto) 1.21 K/uL (1.2-3.4); Lymphocytes % (auto) 13.5 %; Mean Corpuscular Hemoglobin 29.6 pg (25-34); Mean Corpuscular Hgb Conc 32.8 g/dL (32-36); Mean Corpuscular Volume 90.2 fL (80-100); Mean Platelet Volume 9.9 fL (7.4-10.4); Monocytes # (auto) 0.79 K/uL (0.11-0.59); Monocytes % (auto) 8.8 %; Neutrophils # (auto) 6.89 K/uL (1.4-6.5); Neutrophils % (auto) 77.1 %; Platelet Count 199 K/uL (130-400); RDW Coefficient of Variation 14.1 % (11.5-14.5); RDW Standard Deviation 46.6 fL (36.4-46.3); Red Blood Count 3.38 M/uL (4.2-5.4); White Blood Count 8.95 K/uL (4.8-10.8)
[2019-07-28 14:42] LABS: Alanine Aminotransferase 16 U/L (12-78); Albumin Level 3.4 gm/dl (3.4-5.0); Aspartate Aminotransferase 12 U/L (15-37); BUN Creatinine Ratio 19.3 (10-20); Blood Urea Nitrogen 20 mg/dl (7-18); Calcium 8.9 mg/dl (8.5-10.1); Carbon Dioxide 26 mmol/L (21-32); Chloride 105 mmol/L (98-107); Creatinine Clr Calc Pharmacy 50.8 ml/min; Est GFR (African American) 64.2; Est GFR (Non-African American) 55.4; Glucose 102 mg/dl (70-99); Potassium 4.2 mmol/L (3.5-5.1); Sodium 137 mmol/L (136-145)
[2019-07-28 14:44] LABS: Albumin Globulin Ratio 1.4 (0.9-2); Alkaline Phosphatase 69 U/L (45-117); Bilirubin,Total 0.3 mg/dl (0.2-1); Globulin 2.4 gm/dl (2.5-4.0); Total Protein 5.8 gm/dl (6.4-8.2); Troponin I < 0.015 ng/ml (0-0.045)
[2019-07-28 15:35] LABS: INR 1.1 (0.9-1.1); Partial Thromboplastin Time 26.6 Seconds (21.0-31.0)
--- NOTE | 2019-07-28 17:39 | History & Physical Report ---
Date of Service July 28, 2019 Assessment & Plan (1) Atypical chest pain: -Admit to telemetry -Patient presenting from home with reports of intermittent midsternal chest pain over the past 2 days -Risk factors: Diabetes, hypertension, HLD -Chest pain seems to be atypical in nature, possibly due to GERD, however given risk factors and lack of recent cardiac work-up, will order dobutamine stress test for the morning if troponins remain negative -Continue to cycle cardiac enzymes -PRN nitro and EKG with further episodes of chest pain -Continue home aspirin and statin (2) DM2 (diabetes mellitus, type 2): -Hgb A1c 5.9 06/2019 -Hold oral agents and utilize NovoLog per protocol while hospitalized (3) Hypertension: -BP initially controlled upon arrival to ED, now readings are elevated, likely situational -Continue home dose of lisinopril for now, making adjustments as needed (4) HLD (hyperlipidemia): -Continue statin -Lipid panel in a.m. (5) Hypothyroidism: -Continue levothyroxine (6) Schizophrenia: -Continue home medications (7) GERD (gastroesophageal reflux disease): -Continue PPI and H2 rochelle (8) DVT prophylaxis: -SQ Lovenox History of Present Illness Chief Complaint: Chest Pain Primary Care Provider: Raymond Vann, 68 year old female who presents to the ED with chest pain. Patient reports episodes of chest pain over the past several days. Pain is located mid sternally and she describes the pain as pressure. Pain has been lasting about 15 minutes and would resolve on it's own. Today, around 2pm, patient developed another episode of chest discomfort however it lasted for about hour. Patient then presented to the ED for further evaluation. Patient denies any specific causative or alleviating factors. No associated shortness of breath, nausea, diaphoresis, lightheadedness, or syncopal events. Denies orthopnea and lower extremity edema. She denies abdominal pain, vomiting, and diarrhea. No fevers or chills. Denies urinary symptoms. In the ED, initial troponin is negative and EKG does not show any acute ST changes. Labs are unremarkable. Patient is hemodynamically stable. Allergies Allergy/AdvReac Type Severity Reaction Status Date / Time Cephalosporins Allergy Intermediate Hallucinati Verified 07/28/19 16:06 ons Penicillins Allergy Intermediate Hives Verified 07/28/19 16:06 pollen extracts Allergy Intermediate seasonal Verified 07/28/19 16:06 allergy rizatriptan [From Maxalt] Allergy Unknown Unknown Verified 07/28/19 16:06 cyclobenzaprine AdvReac Intermediate neuro Verified 07/28/19 16:06 [From Flexeril] complications Home Medications Home Medications Medication Instructions Recorded Confirmed Type clozapine [Clozaril] 300 mg PO HS 04/14/18 07/28/19 History duloxetine [Cymbalta] 60 mg PO QAM 04/14/18 07/28/19 History levothyroxine [Synthroid] 50 mcg PO DAILYBB 04/14/18 07/28/19 History metformin [Glucophage] 500 mg PO QAM 04/14/18 07/28/19 History nortriptyline [Pamelor] 50 mg PO HS 04/14/18 07/28/19 History omeprazole 40 mg PO HS 04/14/18 07/28/19 History ranitidine HCl [Zantac] 150 mg PO BID 04/14/18 07/28/19 History simvastatin [Zocor] 40 mg PO HS 04/14/18 07/28/19 History solifenacin [Vesicare] 10 mg PO HS 04/14/18 07/28/19 History acetaminophen [Tylenol Extra 1,000 mg PO TID PRN 08/31/18 07/28/19 History Strength] meclizine [Motion Sickness 25 mg PO Q5H PRN 08/31/18 07/28/19 History (meclizine)] cholecalciferol (vitamin D3) 50,000 unit PO WK 12/16/18 07/28/19 History [D3-50 Cholecalciferol] lisinopril [Zestril] 10 mg PO QAM 12/16/18 07/28/19 History ketorolac 10 mg PO BID PRN 02/10/19 07/28/19 History fluticasone propionate [Flonase 2 spray INTRANASAL HS 03/25/19 07/28/19 History Allergy Relief] loratadine [Claritin] 10 mg PO HS 03/25/19 07/28/19 History magnesium oxide 400 mg PO QAM 03/25/19 07/28/19 History riboflavin (vitamin B2) 400 mg PO HS 03/25/19 07/28/19 History sennosides-docusate sodium [Senna 2 tab PO HS 03/25/19 07/28/19 History Plus] aspirin [Kamlesh Chewable Aspirin] 81 mg PO DAILY 05/31/19 07/28/19 History clozapine 50 mg PO QAM 07/28/19 07/28/19 History Past Med/Surg History Medical History Anxiety DM2 (diabetes mellitus, type 2) (Chronic) GERD (gastroesophageal reflux disease) Well controlled with medication HLD (hyperlipidemia) (Chronic) Hypertension (Acute) Hypothyroidism Migraine Neuropathy (Acute) Schizophrenia Somatization disorder (Chronic) Vertigo (Inactive) Surgical History H/O bilateral cataract extraction H/O brain surgery (Chronic) "abt 1970 R parietal exploration for benign lesion" H/O cystoscopy (Chronic) H/O foot surgery (Chronic) History of cataract surgery (Chronic) History of colonoscopy History of craniotomy 1969, IN [place] D/T HEADACHE---FOLLOWS W DR. MICHAEL History of tonsillectomy History of tooth extraction WISDOM TEETH S/P foot surgery, left X2 S/P foot surgery, right X2 Family History Grandfather No problems noted. Grandmother Family history of diabetes mellitus PATERNAL Family/Other Family history of diabetes mellitus UNCLE Social History Preferred Language: Algerian Communication Ability: Effective Manager Of Compliance Required: No Beliefs That Will Affect Care: Voodoo Voodoo Beliefs: PENTECOSTALISM Current Living Situation: Alone Current Living Situation Comment: HAS CAREGIVER COMING IN TO HELP Other Information That Helps Us Care for You: No Feels Safe at Home: Yes Safety Concerns: Feels Safe At This Time Smoking Status: Never smoker Second Hand Exposure: Yes (FATHER SMOKED) ; Hx Alcohol Use: No Hx Substance Use: No Review of Systems Review of Systems: ROS per HPI, all other systems reviewed and negative Physical Exam Physical Exam: please refer to Dr. Engle's addendum for physical exam Results & Data Vital Signs (Past 12 Hours) Vital Signs Temp Pulse Pulse Resp BP BP Pulse Ox 01/27/20 17:29 72 18 179/89 H 99 07/28/19 14:44 75 20 135/72 99 07/28/19 14:31 75 21 99 07/28/19 14:30 75 14 135/72 99 07/28/19 14:06 98 07/28/19 14:01 80 18 98 07/28/19 14:00 80 17 115/59 L 100 07/28/19 13:49 37.1 C 87 20 117/61 98 07/28/19 13:46 86 26 H 98 07/28/19 13:45 85 20 114/57 L 98 07/28/19 13:44 85 19 97 07/28/19 13:43 87 20 117/61 98 Laboratory Results Short CBC 07/28/19 Range/Units 14:12 WBC 8.95 (4.8-10.8) K/uL Hgb 10.0 L (12.0-16.0) g/dL Hct 30.5 L (37-47) % Plt Count 199 (130-400) K/uL BMP 07/28/19 14:12 Sodium 137 Potassium 4.2 Chloride 105 Carbon Dioxide 26 BUN 20 H Creatinine 1.03 Glucose 102 H Calcium 8.9 Cardiac Enzymes 07/28/19 Range/Units 14:12 Troponin I < 0.015 (0-0.045) ng/ml Liver Function 07/28/19 Range/Units 14:12 Total Bilirubin 0.3 (0.2-1) mg/dl AST 12 L (15-37) U/L ALT 16 (12-78) U/L Alkaline Phosphatase 69 (45-117) U/L Albumin 3.4 (3.4-5.0) gm/dl Diagnostic Findings CXR IMPRESSION: No active disease in the chest. Code Status & VTE Plan Code Status Patient is a full code as per Kadie Sousa's discussion with her. VTE Prophylaxis Plan VTE Prophylaxis will be ordered: Yes Supervising Physician Co-Signing Physician Notes 68-year-old woman with history of DM type II, GERD, hypertension, hypothyroidism, schizophrenia who presented with chest pain over the past several days. History and physical exam performed by me. History detailed by Renae HERNANDES. History is significant for intermittent chest pain over the past several days, not associated with exertion, dull occasional pressure-like, substernal, not referred, 7/10 at its worse, not associated with nausea, vomiting, shortness of breath, last about 15mins but that of today started around 2pm and lasted for about 1 hr. On physical exam, General: Well nourished, well hydrated ,average body habitus, no acute distress and not ill appearing Eyes: PERRL, conjunctivae normal, not pale, anicteric sclerae, EOM intact bilaterally ENMT: External ear and nose normal, oropharynx normal Neck: Normal visual inspection, no tracheal deviation, no swelling noted Respiratory: Normal respiratory effort, no respiratory distress, lungs clear to auscultation, no crackles and no wheezes Cardiovascular: Pulse is RRR. S1 S2. No pedal edema Chest (Breasts): Chest: normal inspection of chest Gastrointestinal (Abdomen): Abdomen is not distended, soft, non-tender to palpation, no guarding, no palpable hepatosplenomegaly, normal bowel sounds Musculoskeletal: No cyanosis or clubbing, no pedal edema Genitourinary: No CVA tenderness Skin: No rash noted on gross inspection, No ulcers noted Neurologic: Alert and oriented x 3, No focal weakness, sensation grossly intact Psychiatric: Euthymic affect, normal judgement EKG is NSR, no ischemic changes Trop is <0.015 Chest xray is unremarkable Atypical chest pain. Resolved at this time Cardiac vs GI related. Due to risk factors such as DM2, Hypertension, age, will do some cardiac workup Trend trop. panel monitor Possible DSE tomorrow Continue PPI and H2 rochelle Continue home levothyroxine dose Hold po antidiabetics for now COntinue home lisinopril and monitor BP (1) Hypertension Hypertension type: essential hypertension Qualified Code(s): I10 - Essential (primary) hypertension
[2019-07-28] MEDS ORDERED: ACETAMINOPHEN 325 MG TAB ONE (18:10)
[2019-07-28] MEDS ORDERED: GLUCOSE 40% GEL 15 GM TUBE PO PRN (19:55)
[2019-07-28] MEDS ORDERED: DEXTROSE 50% 50 ML SYRINGE IV PRN (19:55)
[2019-07-28] MEDS ORDERED: GLUCOSE 10 TABS/TUBE PO PRN (19:55)
[2019-07-28] MEDS ORDERED: CARBOHYDRATES FOR HYPOGLYCEMIA PO PRN (19:55)
[2019-07-28] MEDS ORDERED: GLUCAGON FOR INJ 1 MG VIAL SQ PRN (19:55)
[2019-07-28] MEDS ORDERED: NITROGLYCERIN SL 0.4 MG/TAB TAB SL PRN (19:55)
[2019-07-28] MEDS ORDERED: ENOXAPARIN INJ 40 MG/0.4 ML SYR SQ SCH (19:55)
--- NOTE | 2019-07-28 20:11 | Electrocardiogram Report ---
Test Reason : Blood Pressure : / mmHG Vent. Rate : 087 BPM Atrial Rate : 087 BPM P-R Int : 148 ms QRS Dur : 078 ms QT Int : 386 ms P-R-T Axes : 080 030 027 degrees QTc Int : 464 ms Normal sinus rhythm Normal ECG When compared with ECG of 31-MAY-2019 15:45, Premature supraventricular complexes are no longer Present Confirmed by Shen Garcia ([id number]) on 07/28/2019 8:10:59 PM Referred By: REFERRED SELF Confirmed By:Cesar Garcia
[2019-07-28] MEDS: cloZAPine 100 MG TAB PO SCH (22:26)
[2019-07-28] MEDS: LORATADINE 10 MG TAB PO SCH (22:26)
[2019-07-28] MEDS: NORTRIPTYLINE HCL 25 MG CAP PO SCH (22:28)
[2019-07-28] MEDS: FAMOTIDINE 20 MG TAB PO SCH (22:28)
[2019-07-28] MEDS: DOCUSATE SODIUM/SENNA 50/8.6MG TAB PO SCH (22:29)
[2019-07-28] MEDS: SIMVASTATIN 40 MG TAB PO SCH (22:29)
[2019-07-28] MEDS: ENOXAPARIN INJ 40 MG/0.4 ML SYR SQ SCH (22:30)
[2019-07-28] MEDS: PANTOprazole 40 MG TAB PO SCH (22:30)
[2019-07-28] MEDS: INSULIN ASPART 100 UNITS/ML 3 ML PEN SC SCH (22:31)
[2019-07-29 01:57] LABS: Hematocrit (blood only) 34.1 % (37-47); Hemoglobin 11.3 g/dL (12.0-16.0); Mean Corpuscular Hemoglobin 29.4 pg (25-34); Mean Corpuscular Hgb Conc 33.1 g/dL (32-36); Mean Corpuscular Volume 88.8 fL (80-100); Mean Platelet Volume 9.8 fL (7.4-10.4); Platelet Count 190 K/uL (130-400); RDW Coefficient of Variation 14.1 % (11.5-14.5); RDW Standard Deviation 46.2 fL (36.4-46.3); Red Blood Count 3.84 M/uL (4.2-5.4); White Blood Count 6.34 K/uL (4.8-10.8)
[2019-07-29 02:29] LABS: BUN Creatinine Ratio 19.5 (10-20); Blood Urea Nitrogen 17 mg/dl (7-18); Calcium 8.8 mg/dl (8.5-10.1); Carbon Dioxide 30 mmol/L (21-32); Chloride 108 mmol/L (98-107); Chol HDL Ratio 2; Cholesterol 115 mg/dl (0-200); Creatinine Clr Calc Pharmacy 59.5 ml/min; Est GFR (African American) 77.7; Glucose 100 mg/dl (70-99); HDL Cholesterol 59 mg/dl; LDL Cholesterol Calculated 43 mg/dl; Potassium 3.8 mmol/L (3.5-5.1); Sodium 142 mmol/L (136-145); Triglycerides 67 mg/dl (0-150); Troponin I < 0.015 ng/ml (0-0.045); VLDL Cholesterol 13 mg/dl
[2019-07-29] MEDS: LEVOTHYROXINE SODIUM 50 MCG TABLET PO SCH (07:13)
[2019-07-29] MEDS: INSULIN ASPART 100 UNITS/ML 3 ML PEN SC SCH ×4 (07:53→20:31)
[2019-07-29] MEDS: cloZAPine 25 MG TAB PO SCH (08:49)
[2019-07-29] MEDS: MAGNESIUM OXIDE 400 MG TAB PO SCH (08:49)
[2019-07-29] MEDS: ASPIRIN 81 MG ECTAB PO SCH (08:51)
[2019-07-29] MEDS: FAMOTIDINE 20 MG TAB PO SCH ×2 (08:51→20:31)
[2019-07-29] MEDS: lisinopriL 10 MG TAB PO SCH (08:51)
[2019-07-29] MEDS: DULOXETINE HCL 60 MG CAP PO SCH (08:51)
[2019-07-29] MEDS ORDERED: METOPROLOL TARTRATE 1 MG/ML VIAL IV ONE (10:08)
[2019-07-29] MEDS ORDERED: DOBUTamine HCL 12.5 MG/ML 20 ML VIAL IV ONE (10:08)
[2019-07-29] MEDS ORDERED: ATROPINE SULFATE 0.1 MG/ML 10ML SYR IV ONE (10:08)
[2019-07-29] MEDS: MECLIZINE HCL 25 MG TAB PO PRN (11:30)
[2019-07-29] MEDS: ACETAMINOPHEN 325 MG TAB PO PRN (11:33)
[2019-07-29] MEDS: AMLODIPINE BESYLATE 5 MG TAB PO SCH (14:26)
--- NOTE | 2019-07-29 15:47 | Hospitalist Progress Note ---
Date of Service July 29, 2019 Assessment & Plan (1) Atypical chest pain: -Admit to telemetry -Patient presenting from home on 07/28/2019 with reports of intermittent midsternal chest pain over the past 2 days -Risk factors: Diabetes, hypertension, HLD -"Chest pain seems to be atypical in nature, possibly due to GERD, however given risk factors and lack of recent cardiac work-up, will order dobutamine stress test for the morning if troponins remain negative" as per admitting medical pro vider -Continue home aspirin and home simvastatin -troponins are negative x 3 07/29/2019: Patient returned from dobutamine stress test. Patient not in pain and breathing comfortably on room air. no headache. no dizziness. no abdomen pain. no nausea. no vomiting. Patient had high blood pressure prior to normal dobutamine stress test. After talking with her about her outpatient medication it is unclear whether she is taking her lisinopril at home. Patient does not appear to be a good historian. She also lives be herself and appeared to have limited manager nursing home services. Patient agrees to have blood pressure further optimized in the hospital overnight. amlodipine 5 mg was started in addition to current medication regimen. senior category manager is trying to help patient apply for more home services (2) DM2 (diabetes mellitus, type 2): -Hgb A1c 5.9 06/2019 -Hold oral agents and utilize NovoLog per protocol while hospitalized (3) Hypertension: -continue lisinopril 10 mg daily -started amlodipine 5 mg daily on 07/29/2019 -monitor blood pressure to titrate to systolic 160 of less (4) HLD (hyperlipidemia): -good lipid panel -Continue simvastatin (5) Hypothyroidism: -Continue levothyroxine (6) Schizophrenia: -Continue home medications (7) GERD (gastroesophageal reflux disease): -Continue PPI and H2 rochelle (8) DVT prophylaxis: -SQ Lovenox Subjective Patient returned from dobutamine stress test. Patient not in pain and breathing comfortably on room air. no headache. no dizziness. no abdomen pain. no nausea. no vomiting. Patient had high blood pressure prior to normal dobutamine stress test. After talking with her about her outpatient medication it is unclear whether she is taking her lisinopril at home. Patient does not appear to be a good historian. She also lives be herself and appeared to have limited manager nursing home services. Patient agrees to have blood pressure further optimized in the hospital overnight. amlodipine 5 mg was started in addition to current medication regimen. Review of Systems Review of Systems: All systems reviewed & are unremarkable except as noted in HPI & below Physical Exam Constitutional: comfortable Eyes: PERRL, conjunctivae normal, anicteric sclerae EOM intact bilaterally ENMT: external ear and nose normal, oropharynx normal Neck: normal visual inspection Respiratory: normal respiratory effort, lungs clear to auscultation Cardiovascular: Rate/Rhythm: regular rate and regular rhythm Gastrointestinal (Abdomen): normal bowel sounds, soft, nontender, no hepatosplenomegaly Musculoskeletal: Head/Neck/Chest: normocephalic and head atraumatic Neurologic: PERRL, EOMI, accommodation nl, no face palsy, no dysarthria CN's II-XI intact bilaterally Psychiatric: A+Ox3, euthymic affect Results & Data Vital Signs (Past 12 Hours) Vital Signs Temp Pulse Pulse Resp BP Pulse Ox 07/29/19 15:28 37.0 C 66 18 168/79 H 95 07/29/19 12:01 36.4 C L 60 18 178/92 H 99 07/29/19 07:30 79 07/29/19 07:25 36.5 C 74 17 150/75 H 98 (1) Hypertension Hypertension type: essential hypertension Qualified Code(s): I10 - Essential (primary) hypertension
[2019-07-29] MEDS: LORATADINE 10 MG TAB PO SCH (20:30)
[2019-07-29] MEDS: DOCUSATE SODIUM/SENNA 50/8.6MG TAB PO SCH (20:31)
[2019-07-29] MEDS: PANTOprazole 40 MG TAB PO SCH (20:31)
[2019-07-29] MEDS: cloZAPine 100 MG TAB PO SCH (20:31)
[2019-07-29] MEDS: ENOXAPARIN INJ 40 MG/0.4 ML SYR SQ SCH (20:32)
[2019-07-29] MEDS: SIMVASTATIN 40 MG TAB PO SCH (20:32)
[2019-07-29] MEDS: NORTRIPTYLINE HCL 25 MG CAP PO SCH (20:32)
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
[2019-07-30] MEDS: LEVOTHYROXINE SODIUM 50 MCG TABLET PO SCH (05:01)
[2019-07-30] MEDS: ACETAMINOPHEN 325 MG TAB PO PRN ×2 (07:39→16:18)
[2019-07-30] MEDS: AMLODIPINE BESYLATE 5 MG TAB PO SCH (07:40)
[2019-07-30] MEDS: FAMOTIDINE 20 MG TAB PO SCH ×2 (07:40→20:45)
[2019-07-30] MEDS: DULOXETINE HCL 60 MG CAP PO SCH (07:40)
[2019-07-30] MEDS: lisinopriL 10 MG TAB PO SCH (07:40)
[2019-07-30] MEDS: ASPIRIN 81 MG ECTAB PO SCH (07:41)
[2019-07-30] MEDS: cloZAPine 25 MG TAB PO SCH (07:41)
[2019-07-30] MEDS: MAGNESIUM OXIDE 400 MG TAB PO SCH (07:43)
[2019-07-30] MEDS: INSULIN ASPART 100 UNITS/ML 3 ML PEN SC SCH ×4 (07:44→22:08)
[2019-07-30] MEDS: MECLIZINE HCL 25 MG TAB PO PRN (11:18)
[2019-07-30] MEDS ORDERED: COUGH DROP (SUGAR FREE) LOZ 24 LOZ/1 BOX BUCCAL ONE (14:03)
--- NOTE | 2019-07-30 17:12 | Hospitalist Progress Note ---
Date of Service July 30, 2019 Assessment & Plan (1) Atypical chest pain: -troponins are negative x 3 EKG no signs of acute ischemia, infarct - s/p Dobutamine stress test: negative for inducible ischemia - no recurrence of chest pain (2) DM2 (diabetes mellitus, type 2): -Hgb A1c 5.9 06/2019 -Hold oral agents and utilize NovoLog per protocol while hospitalized (3) Hypertension: -continue lisinopril 10 mg daily -started amlodipine 5 mg daily on 07/29/2019 -BP improving, continue to monitor (4) HLD (hyperlipidemia): -good lipid panel -Continue simvastatin (5) Hypothyroidism: -Continue levothyroxine (6) Schizophrenia: -Continue home medications (7) GERD (gastroesophageal reflux disease): -Continue PPI and H2 rochelle (8) DVT prophylaxis: -SQ Lovenox Subjective ff up for chest pain seen resting in bed, comfortable states she feels fine overall denies chest pain, headache, dizziness, palpitations, dyspnea no other symptoms Review of Systems Review of Systems: All systems reviewed & are unremarkable except as noted in HPI & below Physical Exam Physical Exam: General- oriented x 3, not in distress, speaks in sentences with no effort or accessory muscle use Eyes- anicteric Neck- no JVD Lungs- clear breath sounds bilaterally, no rales/wheezes Heart- normal rate, regular rhythm; no murmurs Abdomen- normal bowel sounds, nondistended, soft, nontender Extremities- no pretibial edema, no calf tenderness Neuro- alert, oriented x 3; no gross focal neurologic deficits Skin- warm & dry Results & Data Vital Signs (Past 12 Hours) Vital Signs Temp Pulse Pulse Resp BP Pulse Ox 07/30/19 16:11 36.6 C 71 18 99 07/30/19 11:21 36.7 C 67 18 151/80 H 100 07/30/19 07:18 36.4 C L 70 18 145/80 H 97 (1) Hypertension Hypertension type: essential hypertension Qualified Code(s): I10 - Essential (primary) hypertension
--- NOTE | 2019-07-30 17:29 | Electrocardiogram Report ---
Test Reason : Blood Pressure : / mmHG Vent. Rate : 076 BPM Atrial Rate : 076 BPM P-R Int : 138 ms QRS Dur : 086 ms QT Int : 408 ms P-R-T Axes : 065 025 016 degrees QTc Int : 459 ms Normal sinus rhythm Nonspecific ST abnormality Abnormal ECG When compared with ECG of 28-JUL-2019 13:42, No significant change was found Confirmed by Shen Garcia ([id number]) on 07/30/2019 5:29:02 PM Referred By: REFERRED SELF Confirmed By:Cesar Garcia
--- NOTE | 2019-07-30 17:49 | Electrocardiogram Report ---
Test Reason : Blood Pressure : / mmHG Vent. Rate : 070 BPM Atrial Rate : 070 BPM P-R Int : 142 ms QRS Dur : 082 ms QT Int : 438 ms P-R-T Axes : 064 025 005 degrees QTc Int : 473 ms Normal sinus rhythm Normal ECG When compared with ECG of 29-JUL-2019 06:31, (unconfirmed) No significant change was found Confirmed by Shen Garcia ([id number] on 07/30/2019 5:49:21 PM Referred By: REFERRED SELF Confirmed By:Cesar Garcia
[2019-07-30] MEDS ORDERED: lisinopriL 10 MG TAB PO STA (19:51)
[2019-07-30] MEDS: NORTRIPTYLINE HCL 25 MG CAP PO SCH (20:44)
[2019-07-30] MEDS: LORATADINE 10 MG TAB PO SCH (20:44)
[2019-07-30] MEDS: SIMVASTATIN 40 MG TAB PO SCH (20:44)
[2019-07-30] MEDS: DOCUSATE SODIUM/SENNA 50/8.6MG TAB PO SCH (20:45)
[2019-07-30] MEDS: cloZAPine 100 MG TAB PO SCH (20:45)
[2019-07-30] MEDS: PANTOprazole 40 MG TAB PO SCH (20:46)
[2019-07-30] MEDS: ENOXAPARIN INJ 40 MG/0.4 ML SYR SQ SCH (20:46)
[2019-07-31] MEDS: LEVOTHYROXINE SODIUM 50 MCG TABLET PO SCH (06:25)
[2019-07-31] MEDS: AMLODIPINE BESYLATE 5 MG TAB PO SCH (08:30)
[2019-07-31] MEDS: DULOXETINE HCL 60 MG CAP PO SCH (08:30)
[2019-07-31] MEDS: MAGNESIUM OXIDE 400 MG TAB PO SCH (08:31)
[2019-07-31] MEDS: cloZAPine 25 MG TAB PO SCH (08:31)
[2019-07-31] MEDS: ASPIRIN 81 MG ECTAB PO SCH (08:31)
[2019-07-31] MEDS: FAMOTIDINE 20 MG TAB PO SCH (08:32)
[2019-07-31] MEDS: INSULIN ASPART 100 UNITS/ML 3 ML PEN SC SCH ×3 (08:37→17:30)
[2019-07-31] MEDS: ACETAMINOPHEN 325 MG TAB PO PRN ×2 (08:38→13:35)
[2019-07-31] MEDS ORDERED: lisinopriL 20 MG TAB PO SCH (09:00)
[2019-07-31] MEDS ORDERED: POLYETHYLENE (MIRALAX) 17 GM PACK PO SCH (13:30)
--- NOTE | 2019-07-31 13:30 | Hospitalist Progress Note ---
Date of Service July 31, 2019 Assessment & Plan (1) Atypical chest pain: -troponins are negative x 3 EKG no signs of acute ischemia, infarct - s/p Dobutamine stress test: negative for inducible ischemia - no recurrence of chest pain (2) DM2 (diabetes mellitus, type 2): -Hgb A1c 5.9 06/2019 - continue Metformin (3) Hypertension: -continue lisinopril 10 mg daily -started amlodipine 5 mg daily on 07/29/2019 -BP improving, continue to monitor daily and titrate medications accordingly (4) HLD (hyperlipidemia): -LDL 43 -Continue simvastatin (5) Hypothyroidism: -Continue levothyroxine (6) Schizophrenia: -Continue home medications (7) GERD (gastroesophageal reflux disease): -Continue PPI and H2 rochelle (8) DVT prophylaxis: -SQ Lovenox given Disposition: d/c to [facility] today ff up with PCP 1 week after discharge from Rehab Subjective ff up for chest pain seen resting in bedside chair, comfortable, in good spirits states she feels fine overall no recurrence of chest pain denies dyspnea, palpitations, dizziness has mild neck pain- chronic denies other symptoms states she is ready for discharge today Review of Systems Review of Systems: All systems reviewed & are unremarkable except as noted in HPI & below Physical Exam Physical Exam: General- oriented x 3, not in distress, speaks in sentences with no effort or accessory muscle use Eyes- anicteric Neck- no JVD Lungs- clear breath sounds bilaterally, no rales/wheezes Heart- normal rate, regular rhythm; no murmurs Abdomen- normal bowel sounds, nondistended, soft, nontender Extremities- no pretibial edema, no calf tenderness Neuro- alert, oriented x 3; no gross focal neurologic deficits Skin- warm & dry Results & Data ([facility]) Vital Signs (Past 12 Hours) Vital Signs Temp Pulse Resp BP Pulse Ox 07/31/19 12:16 36.6 C 76 20 155/80 H 95 07/31/19 06:59 36.6 C 76 20 155/80 H 95 Laboratory Results Laboratory Results - last 24 hr 07/30/19 07/30/19 07/31/19 16:29 20:27 08:02 POC Glucose 112 H 101 H 112 H 07/31/19 11:43 POC Glucose 135 H (1) Hypertension Hypertension type: essential hypertension Qualified Code(s): I10 - Essential (primary) hypertension
--- NOTE | 2019-07-31 13:44 | Discharge Summary ---
Date of Service July 31, 2019 Admission HPI Per Admitting Provider 68 year old female who presents to the ED with chest pain. Patient reports episodes of chest pain over the past several days. Pain is located mid sternally and she describes the pain as pressure. Pain has been lasting about 15 minutes and would resolve on it's own. Today, around 2pm, patient developed another episode of chest discomfort however it lasted for about hour. Patient then presented to the ED for further evaluation. Patient denies any specific causative or alleviating factors. No associated shortness of breath, nausea, diaphoresis, lightheadedness, or syncopal events. Denies orthopnea and lower extremity edema. She denies abdominal pain, vomiting, and diarrhea. No fevers or chills. Denies urinary symptoms. In the ED, initial troponin is negative and EKG does not show any acute ST changes. Labs are unremarkable. Patient is hemodynamically stable. Admission Exam Per Admitting Provider General: Well nourished, well hydrated ,average body habitus, no acute distress and not ill appearing Eyes: PERRL, conjunctivae normal, not pale, anicteric sclerae, EOM intact bilaterally ENMT: External ear and nose normal, oropharynx normal Neck: Normal visual inspection, no tracheal deviation, no swelling noted Respiratory: Normal respiratory effort, no respiratory distress, lungs clear to auscultation, no crackles and no wheezes Cardiovascular: Pulse is RRR. S1 S2. No pedal edema Chest (Breasts): Chest: normal inspection of chest Gastrointestinal (Abdomen): Abdomen is not distended, soft, non-tender to p alpation, no guarding, no palpable hepatosplenomegaly, normal bowel sounds Musculoskeletal: No cyanosis or clubbing, no pedal edema Genitourinary: No CVA tenderness Skin: No rash noted on gross inspection, No ulcers noted Neurologic: Alert and oriented x 3, No focal weakness, sensation grossly intact Psychiatric: Euthymic affect, normal judgement Principal Diagnosis CHEST PAIN, ACUTE CORONARY SYNDROME RULED OUT Discharge Exam General- oriented x 3, not in distress, speaks in sentences with no effort or accessory muscle use Eyes- anicteric Neck- no JVD Lungs- clear breath sounds bilaterally, no rales/wheezes Heart- normal rate, regular rhythm; no murmurs Abdomen- normal bowel sounds, nondistended, soft, nontender Extremities- no pretibial edema, no calf tenderness Neuro- alert, oriented x 3; no gross focal neurologic deficits Skin- warm & dry Discharge Data Allergies Allergy/AdvReac Type Severity Reaction Status Date / Time Cephalosporins Allergy Intermediate Hallucinati Verified 07/28/19 16:06 ons Penicillins Allergy Intermediate Hives Verified 07/28/19 16:06 pollen extracts Allergy Intermediate seasonal Verified 07/28/19 16:06 allergy rizatriptan [From Maxalt] Allergy Unknown Unknown Verified 07/28/19 16:06 cyclobenzaprine AdvReac Intermediate neuro Verified 07/28/19 16:06 [From Flexeril] complications Consultations 07/28/19 17:18 ED Decision to Admit Stat 07/28/19 19:55 Consult Case Management - Discharge Planning Routine Hospital Course (1) Atypical chest pain: -troponins are negative x 3 EKG no signs of acute ischemia, infarct - s/p Dobutamine stress test: negative for inducible ischemia normal LV chamber size and wall thickness normal LV systolic function without regional wall motion abnormality EF 55- 60% Grade 1 diastolic dysfunction - no recurrence of chest pain (2) DM2 (diabetes mellitus, type 2): -Hgb A1c 5.9 06/2019 - continue Metformin (3) Hypertension: - lisinopril increased to 20 mg daily -started amlodipine 5 mg daily -BP improving, continue to monitor daily and titrate medications accordingly (4) HLD (hyperlipidemia): -LDL 43 -Continue simvastatin (5) Hypothyroidism: -Continue levothyroxine (6) Schizophrenia: -Continue home medications (7) GERD (gastroesophageal reflux disease): -Continue PPI and H2 rochelle (8) DVT prophylaxis: -SQ Lovenox given Disposition: d/c to [facility] ff up with PCP 1 week after discharge from Rehab Total Time Total Time Spent Total Time Spent (In Minutes): 45 minutes Discharge Plan Discharge Items Patient Disposition: Transfer Inpatient Rehab Fac Reason For Visit: CHEST PAIN Discharge Diagnosis: CHEST PAIN, ACUTE CORONARY SYNDROME RULED OUT Activity: Resume your previous activity Activity Comment: FALL PRECAUTIONS PLEASE Non-emergency contact: Primary Care Provider Call non-emergency contact if: you have any medication questions, your symptoms worsen, your pain is not controlled, your pain is worsening, your pain is unusual for you, your pain is concerning for you and you have a fever Follow-up/Referrals: Raymond Vann, DO [Primary Care Provider] - Diet: Carb Consistent or DM2 and Heart Healthy Addtl Attending Provider Instructions: MONITOR BLOOD PRESSURE DAILY. PLEASE REFER TO ACCOMPANYING HOSPITAL DISCHARGE SUMMARY FOR DETAILS. Pending Studies at Discharge: No Stand-Alone Forms: Call Back Authorization, My [facility] [address] Skilled Items Patient informed of condition?: Yes DNR: No Discharge Level of Care: Acute rehab Communicable Disease: No Discharge Prognosis: Stable Lines: None Urinary Catheter: No Medications and DC Order Prescriptions: New lisinopril 20 mg Tablet 20 mg PO QAM Qty: 30 RF: 2 polyethylene glycol 3350 [Miralax] 17 gram Powder In Packet 17 g PO Q2D 30 Days Qty: 14 RF: 2 amlodipine [Norvasc] 5 mg Tablet 5 mg PO QAM Qty: 30 RF: 2 Continued clozapine [Clozaril] 100 mg tablet 300 mg PO HS RF: 0 metformin [Glucophage] 500 mg tablet 500 mg PO QAM RF: 0 simvastatin [Zocor] 40 mg tablet 40 mg PO HS RF: 0 nortriptyline [Pamelor] 25 mg capsule 50 mg PO HS RF: 0 levothyroxine [Synthroid] 50 mcg tablet 50 mcg PO DAILYBB RF: 0 ranitidine HCl [Zantac] 150 mg tablet 150 mg PO BID RF: 0 omeprazole 20 mg capsule,delayed release(DR/EC) 40 mg PO HS RF: 0 duloxetine [Cymbalta] 60 mg capsule,delayed release(DR/EC) 60 mg PO QAM RF: 0 solifenacin [Vesicare] 10 mg tablet 10 mg PO HS RF: 0 acetaminophen [Tylenol Extra Strength] 500 mg Tablet 1,000 mg PO TID PRN (Reason: Pain) RF: 0 meclizine [Motion Sickness (meclizine)] 25 mg tablet 25 mg PO Q5H PRN (Reason: Dizziness) RF: 0 cholecalciferol (vitamin D3) [D3-50 Cholecalciferol] 50,000 unit capsule 50,000 unit PO WK RF: 0 ketorolac 10 mg tablet 10 mg PO BID PRN (Reason: Pain) RF: 0 sennosides-docusate sodium [Senna Plus] 8.6-50 mg Tablet 2 tab PO HS RF: 0 fluticasone propionate [Flonase Allergy Relief] 50 mcg/actuation Roca,Suspension 2 spray INTRANASAL HS RF: 0 loratadine [Claritin] 10 mg Tablet 10 mg PO HS RF: 0 riboflavin (vitamin B2) 400 mg Tablet 400 mg PO HS RF: 0 magnesium oxide 400 mg magnesium Tablet 400 mg PO QAM RF: 0 aspirin [Kamlesh Chewable Aspirin] 81 mg Tablet,Chewable 81 mg PO DAILY RF: 0 clozapine 25 mg tablet 50 mg PO QAM RF: 0 Discontinued lisinopril [Zestril] 10 mg tablet 10 mg PO QAM RF: 0 Discharge Orders: Discharge Order (Routine); Ordered 07/31/19 Ordered By: Stephane Marks Admission Data Admit Date/Time: 07/30/19 18:32 Attending Provider: Stephane Marks Admit Provider: Anamika Engle I. Primary Care Provider: Raymond Vann Other Providers: [facility],Home [facility] ; Rupesh Berry ; [facility] ; Anamika Engle I. Other Interventions: Discharge Summary Assessment (RN) Last Done: 07/31/19 12:16
== END 2019-07-31 18:00 | DRG 392 ==
LOC: 2S 13:36 → ED 13:36 → SUATTDRO 17:33 → 2S 18:36 → 4W 07-30 19:22

== ENCOUNTER 2021-02-24 14:00 | Inpatient (IN) ==
[2021-02-24 15:15] LABS: Alanine Aminotransferase 19 U/L (12-78); Albumin Level 3.3 gm/dl (3.4-5.0); Aspartate Aminotransferase 12 U/L (15-37); BUN Creatinine Ratio 13.1 (10-20); Blood Urea Nitrogen 12 mg/dl (7-18); Calcium 8.7 mg/dl (8.5-10.1); Carbon Dioxide 27 mmol/L (21-32); Chloride 107 mmol/L (98-107); Creatinine Clr Calc Pharmacy 52.8 ml/min; Est GFR (African American) 76.6 ml/min; Est GFR (Non-African American) 66.1 ml/min; Glucose 131 mg/dl (70-99); Potassium 3.6 mmol/L (3.5-5.1); Sodium 140 mmol/L (136-145)
[2021-02-24 15:25] LABS: Albumin Globulin Ratio 1.1 (0.9-2); Alkaline Phosphatase 89 U/L (45-117); Bilirubin,Total 0.3 mg/dl (0.2-1); Globulin 2.9 gm/dl (2.5-4.0); Total Protein 6.2 gm/dl (6.4-8.2); Troponin I < 0.015 ng/ml (0-0.045)
[2021-02-24 16:37] LABS: Basophils # (auto) 0.02 K/uL (0-0.2); Basophils % (auto) 0.3 %; Hematocrit (blood only) 35.3 % (37-47); Hemoglobin 11.3 g/dL (12.0-16.0); Immature Granulocytes # (auto) 0.01 K/uL (0.00-0.02); Immature Granulocytes % (auto) 0.1 %; Lymphocytes # (auto) 1.55 K/uL (1.2-3.4); Lymphocytes % (auto) 22.6 %; Mean Corpuscular Hemoglobin 27.8 pg (25-34); Mean Corpuscular Volume 86.9 fL (80-100); Mean Platelet Volume 10.3 fL (7.4-10.4); Monocytes # (auto) 0.71 K/uL (0.11-0.59); Monocytes % (auto) 10.4 %; Neutrophils # (auto) 4.56 K/uL (1.4-6.5); Neutrophils % (auto) 66.6 %; Platelet Count 209 K/uL (130-400); RDW Coefficient of Variation 16.7 % (11.5-14.5); RDW Standard Deviation 53.3 fL (36.4-46.3); Red Blood Count 4.06 M/uL (4.2-5.4); White Blood Count 6.85 K/uL (4.8-10.8)
[2021-02-24] MEDS ORDERED: FAMOTIDINE 20MG IV PUSH 20 MG/5 ML SYR IV STA (17:03)
[2021-02-24] MEDS ORDERED: ACETAMINOPHEN 1,000 MG/100 ML VIAL IV STA (17:03)
[2021-02-24] MEDS ORDERED: SODIUM CHLORIDE 0.9% 1000ML 1,000 ML IV ONE (17:03)
[2021-02-24] MEDS ORDERED: PROMETHAZINE 12.5 MG/50.5 ML BAG IV STA (17:03)
[2021-02-24 17:21] LABS: Magnesium 1.8 mg/dl (1.8-2.4); Phosphorus 2.7 mg/dl (2.5-4.9)
--- NOTE | 2021-02-24 17:22 | XRay Report ---
SINGLE VIEW CHEST CLINICAL HISTORY: Generalized weakness. FINDINGS: 2 AP, portable, upright chest radiographs are compared to study dated 11/13/2020. The examin ation is degraded by portable technique and patient rotation. The heart is top normal for projectio n noting atherosclerotic calcification of the thoracic aorta. Chronic interstitial thickening is nadege lar to previous. Scarring/atelectasis is seen at the lung bases. No airspace consolidation or large p leural effusion is identified. No pneumothorax is seen. The skeletal structures are osteopenic. The b george thorax is grossly intact. IMPRESSION: No active disease in the chest. ACT 112: Negative or not required by law. Electronically signed by: Patel Qiu M.D. 02/24/2021 5:21 PM
[2021-02-24] MEDS ORDERED: lisinopril 10 MG TAB PO STA (20:48)
[2021-02-24] MEDS ORDERED: lisinopril 5 MG TAB PO ONE (20:53)
--- NOTE | 2021-02-24 20:53 | Emergency Department Note ---
Impression & Plan Dizziness, Hypertension, Dehydration, Generalized weakness, Nausea ED Provider Note NAME: LJ PRASAD AGE: 70 SEX: F ARRIVES VIA: Ambulance INFORMANT: Patient, ED PROVIDER(S): Brian Feliz MD CHIEF COMPLAINT: Dizziness, nausea. PLAN: Disposition: Admit MEDICAL DECISION MAKING: The patient is a pleasant 70-year-old woman with a past medical history of vertigo, migraines, schizophrenia, GERD, hypertension, hyperlipidemia, diabetes who presents emergency department with persistent mild frontal headache, nausea and dizziness with sensation as though she is going to pass out which she reports began this morning. Prior to today the patient denies any recent illness including denies fevers, chills, cough, congestion, diarrhea or urinary symptoms. On arrival the patient is fatigued appearing but no acute distress, afebrile, hypertensive and otherwise with stable vital signs. She appears clinically dry. She has no focal neurologic deficits. Abdomen is benign. EKG without overt acute ischemia. Chest x-ray negative for acute cardiopulmonary process. WBC and platelets within normal limits. H/H similar to prior values. C hemistry without metabolic acidosis. Electrolytes and LFTs unremarkable. Troponin negative/undetectable. TSH within normal limits. UA ultimately was obtained and was without convincing evidence of infection. COVID-19 PCR is negative. Upon reevaluation patient did report feeling somewhat improved after IV fluid hydration, famotidine and Phenergan. However, she did still feel somewhat unsteady and nauseated. BP elevated and so was given home qhs Lisinopril. We did agree to proceed with plan for admission. CT head performed and per preliminary stat rad report was negative for acute process. Case was discussed with Dr. Mcdonnell, [facility] hospitalist, who will evaluate the patient for admission. Triage Nursing notes reviewed and agree them. Prior medical records reviewed Vital Signs: reviewed and remarkable for no significant abnormalities Differential diagnosis: Benign positional vertigo, dehydration, hypovolemia, anemia, tumor, infection, hypoglycemia, electrolyte abnormalities, cardiac sources, intracerebral event, toxicologic, neurologic, as well as other pathologies. ER treatment provided: See below. Diagnostics interpreted by me: ECG: Normal sinus rhythm, 80 bpm, no ectopy, nonspecific ST and T wave abnormality. No overt ST elevation or depression, QTC 546, QRS 84. Cardiac Monitoring: An order for continuous cardiac monitoring was placed and demonstrated Normal sinus rhythm, 80 bpm, no ectopy. Laboratory studies: See below Imaging studies: See below and STATRAD Preliminary Findings Only See Final Report For Complete Findings CT HEAD: Compared to 11/25/20 No acute intracranial process. Redemonstrated right parietal craniotomy. Radiologist: Malik Britt M.D. Study ready at 21:44 and initial results transmitted at 21:53 Consultation(s): Case was discussed with Dr. Mcdonnell, [facility] hospitalist, who will evaluate the patient for admission. HPI: The patient is a pleasant 70-year-old woman with a past medical history of vertigo, migraines, schizophrenia, GERD, hypertension, hyperlipidemia, diabetes who presents emergency department with persistent mild frontal headache, nausea and dizziness with sensation as though she is going to pass out which she repor ts began this morning. Prior to today the patient denies any recent illness including denies fevers, chills, cough, congestion, diarrhea or urinary symptoms. ROS: See above HPI for pertinent positives & negatives. A total of 10 systems reviewed and were otherwise negative. PAST MEDICAL HISTORY:See Below PAST SURGICAL HISTORY:See Below FAMILY HISTORY:See Below SOCIAL HISTORY:See Below HOME MEDICATIONS:See Below ALLERGIES:See Below VITALS:See Below PHYSICAL EXAMINATION: GENERAL: Awake, alert, fatigued/uncomfortable-appearing, in no distress HENT: Normocephalic, atraumatic. Oropharynx with dry mucous membranes and otherwise unremarkable. EYES: Normal conjunctiva. Sclera non-icteric. EOMI. No nystamgus. PEARRL. NECK: Supple. No nuchal rigidity. FROM. No JVD. RESPIRATORY: Clear to auscultation. CARDIAC: Regular rate, normal rhythm. Extremities warm and well perfused. Pulses equal. ABDOMEN: Soft, non-distended. No tenderness to palpation. No rebound or guarding. No masses. RECTAL: Deferred. MUSCULOSKELETAL: Chest examination reveals no tenderness. The back is symmetrical on inspection without obvious abnormality. There is no CVA tenderness to palpation. No joint edema. LOWER EXTREMITIES: Calves are equal size bilaterally and non-tender. No edema. No discoloration. NEURO: No focal sensory or motor deficits noted. 5/5 strength and SILT x 4 extre mities. SKIN: No rash or jaundice noted. Brian Feliz MD Past Med/Surg History Medical History (Updated 02/25/21 @ 02:09 by Brian Feliz MD) Anxiety DM2 (diabetes mellitus, type 2) GERD (gastroesophageal reflux disease) Well controlled with medication HLD (hyperlipidemia) Hypertension Hypothyroidism Migraine Neuropathy Schizophrenia Somatization disorder Vertigo Surgical History H/O bilateral cataract extraction H/O brain surgery "abt 1969 R parietal exploration for benign lesion" H/O cystoscopy H/O foot surgery History of cataract surgery History of colonoscopy History of craniotomy 1969, IN [place] D/T HEADACHE---FOLLOWS W DR. MICHAEL History of tonsillectomy History of tooth extraction WISDOM TEETH S/P foot surgery, left X2 S/P foot surgery, right X2 Family History Grandmother Family history of diabetes mellitus PATERNAL Family/Other Family history of diabetes mellitus UNCLE Father Parkinson disease Mother CHF (congestive heart failure) Social History Smoking Status: Never smoker Second Hand Exposure: Yes (FATHER SMOKED); Hx Alcohol Use: No Hx Substance Use: No Preferred Language: Romanian Communication Ability: Effective College Teacher Required: No Beliefs That Will Affect Care: None Current Living Situation: Alone Current Living Situation Comment: caretakers via home health agency Feels Safe at Home: Yes Safety Concerns: Feels Safe At This Time Assistive Devices: Walker Allergies Allergies Allergy/AdvReac Type Severity Reaction Status Date / Time Cephalosporins Allergy Intermediate Hallucinati Verified 02/24/21 17:33 ons Penicillins Allergy Intermediate Hives Verified 02/24/21 17:33 pollen extracts Allergy Intermediate seasonal Verified 02/24/21 17:33 allergy rizatriptan [From Maxalt] Allergy Unknown Unknown Verified 02/24/21 17:33 cyclobenzaprine AdvReac Intermediate neuro Verified 02/24/21 17:33 [From Flexeril] complications Home Meds Home Medications Medication Instructions Recorded Confirmed duloxetine 60 mg capsule,delayed 60 mg PO QAM 04/14/18 02/24/21 release (Cymbalta) levothyroxine 50 mcg tablet 50 mcg PO DAILYBB 04/14/18 02/24/21 (Synthroid) nortriptyline 25 mg capsule 50 mg PO HS 04/14/18 02/24/21 (Pamelor) omeprazole 20 mg capsule,delayed 40 mg PO HS 04/14/18 02/24/21 release solifenacin 10 mg tablet (Vesicare) 10 mg PO HS 04/14/18 02/24/21 cholecalciferol (vitamin D3) 1,250 50,000 unit PO WK 12/16/18 02/24/21 mcg (50,000 unit) capsule (D3-50 Cholecalciferol) loratadine 10 mg tablet (Claritin) 10 mg PO HS 03/25/19 02/24/21 magnesium oxide 400 mg PO QAM 03/25/19 02/24/21 atorvastatin 20 mg tablet 20 mg PO DAILY 11/22/19 02/24/21 sumatriptan succinate 100 mg tablet 100 mg PO DIRECTED PRN 11/22/19 02/24/21 gabapentin 100 mg capsule See Rx Instructions .ROUTE .COMPLEX 10/16/20 02/24/21 lisinopril 10 mg tablet 10 mg PO HS 10/16/20 02/24/21 metoprolol succinate 25 mg 25 mg PO DAILY 10/16/20 02/24/21 tablet,extended release 24 hr clozapine 25 mg tablet 50 mg PO QAM 11/06/20 02/24/21 metformin 500 mg tablet 500 mg PO QAM 02/24/21 02/24/21 riboflavin (vitamin B2) 400 mg 400 mg PO DAILY 02/24/21 02/24/21 tablet sennosides 8.6 mg-docusate sodium 1 - 2 tab PO DAILY 02/24/21 02/24/21 50 mg tablet (Senna Plus) Previous Rx's Medication Instructions Recorded clozapine 100 mg tablet (Clozaril) 300 mg PO HS #30 tab 07/31/19 Results & Data (ED) Vital Signs Vital Signs - 24 hr 02/24/21 14:23 02/24/21 17:22 02/24/21 20:23 Temperature 36.6 C Temperature Source Temporal Artery Scan Pulse Rate 80 Pulse Rate [Right] 66 69 Pulse Rate from SpO2 Sensor Pulse Rhythm [Right] Regular Pulse Strength [Right] Normal Respiratory Rate 18 20 Respiratory Effort / Characteristics Non-Labored Spontaneous Non-Labored Respiratory Depth Normal Normal Respiratory Pattern Regular Blood Pressure 146/78 H Blood Pressure [Left Arm] 166/76 H 208/94 H Blood Pressure Mean 100 Blood Pressure Mean [Left Arm] 106 132 Blood Pressure Position Sitting Pulse Oximetry 99 100 98 Oxygen Delivery Method Room Air Room Air Room Air Sepsis Recent Fever Within 48 Hours No Sepsis New/Unexplained Change in Mental Status N/A Sepsis Action Taken by Nursing No Action Required 02/24/21 20:30 02/24/21 21:05 02/24/21 21:41 Temperature Temperature Source Pulse Rate 71 Pulse Rate [Right] 78 Pulse Rate from SpO2 Sensor 72 75 Pulse Rhythm [Right] Pulse Strength [Right] Respiratory Rate 12 17 Respiratory Effort / Characteristics Respiratory Depth Respiratory Pattern Blood Pressure 210/110 H 189/95 H Blood Pressure [Left Arm] 181/97 H Blood Pressure Mean 143 126 Blood Pressure Mean [Left Arm] 125 Blood Pressure Position Pulse Oximetry 100 100 99 Oxygen Delivery Method Room Air Room Air Room Air Sepsis Recent Fever Within 48 Hours Sepsis New/Unexplained Change in Mental Status Sepsis Action Taken by Nursing 02/24/21 22:00 Temperature Temperature Source Pulse Rate Pulse Rate [Right] Pulse Rate from SpO2 Sensor 71 Pulse Rhythm [Right] Pulse Strength [Right] Respiratory Rate Respiratory Effort / Characteristics Respiratory Depth Respiratory Pattern Blood Pressure 183/105 H Blood Pressure [Left Arm] Blood Pressure Mean 131 Blood Pressure Mean [Left Arm] Blood Pressure Position Pulse Oximetry 100 Oxygen Delivery Method Room Air Sepsis Recent Fever Within 48 Hours Sepsis New/Unexplained Change in Mental Status Sepsis Action Taken by Nursing Laboratory Data Attestation: I reviewed the patient's lab results. Result diagrams: 02/24/21 16:25 02/24/21 14:34 Lab Results 02/24/21 02/24/21 02/24/21 Range/Units 14:34 14:34 16:25 WBC 6.85 (4.8-10.8) K/uL RBC 4.06 L (4.2-5.4) M/uL Hgb 11.3 L (12.0-16.0) g/dL Hct 35.3 L (37-47) % MCV 86.9 (80-100) fL MCH 27.8 (25-34) pg MCHC 32.0 (32-36) g/dL RDW Std Deviation 53.3 H (36.4-46.3) fL RDW Coeff of Cyn 16.7 H (11.5-14.5) % Plt Count 209 (130-400) K/uL MPV 10.3 (7.4-10.4) fL Immature Gran % (Auto) 0.1 % Neut % (Auto) 66.6 % Lymph % (Auto) 22.6 % [place] % (Auto) 10.4 % Eos % (Auto) 0.0 % Baso % (Auto) 0.3 % Neut # (Auto) 4.56 (1.4-6.5) K/uL Lymph # (Auto) 1.55 (1.2-3.4) K/uL [place] # (Auto) 0.71 H (0.11-0.59) K/uL Eos # (Auto) 0.00 (0-0.5) K/uL Baso # (Auto) 0.02 (0-0.2) K/uL Immature Gran # (Auto) 0.01 (0.00-0.02) K/uL Sodium 140 (136-145) mmol/L Potassium 3.6 (3.5-5.1) mmol/L Chloride 107 (98-107) mmol/L Carbon Dioxide 27 (21-32) mmol/L Anion Gap 6.0 (3-11) BUN 12 (7-18) mg/dl Creatinine 0.88 (0.6-1.2) mg/dl Est Cr Clr Drug Dosing 52.8 ml/min Est GFR ( Amer) 76.6 ml/min Est GFR (Non-Af Amer) 66.1 ml/min BUN/Creatinine Ratio 13.1 (10-20) Glucose 131 H (70-99) mg/dl Calcium 8.7 (8.5-10.1) mg/dl Phosphorus 2.7 (2.5-4.9) mg/dl Magnesium 1.8 (1.8-2.4) mg/dl Total Bilirubin 0.3 (0.2-1) mg/dl AST 12 L (15-37) U/L ALT 19 (12-78) U/L Alkaline Phosphatase 89 (45-117) U/L Troponin I < 0.015 (0-0.045) ng/ml Total Protein 6.2 L (6.4-8.2) gm/dl Albumin 3.3 L (3.4-5.0) gm/dl Globulin 2.9 (2.5-4.0) gm/dl Albumin/Globulin Ratio 1.1 (0.9-2) TSH 1.130 (0.300-4.500) uIu/ml Urine Color Urine Appearance (Clear) Urine pH (4.5-7.5) Ur Specific [place] (1.000-1.030) Urine Protein (Negative) Urine Glucose (UA) (Negative) Urine Ketones (Negative) Urine Blood (Negative) Urine Nitrite (Negative) Urine Bilirubin (Negative) Urine Urobilinogen (Negative) Ur Leukocyte Esterase (Negative) COVID-19 Eval Order SARS-CoV-2 (PCR) (Negative) 02/24/21 02/24/21 02/24/21 Range/Units 20:57 20:57 21:10 WBC (4.8-10.8) K/uL RBC (4.2-5.4) M/uL Hgb (12.0-16.0) g/dL Hct (37-47) % MCV (80-100) fL MCH (25-34) pg MCHC (32-36) g/dL RDW Std Deviation (36.4-46.3) fL RDW Coeff of Cyn (11.5-14.5) % Plt Count (130-400) K/uL MPV (7.4-10.4) fL Immature Gran % (Auto) % Neut % (Auto) % Lymph % (Auto) % [place] % (Auto) % Eos % (Auto) % Baso % (Auto) % Neut # (Auto) (1.4-6.5) K/uL Lymph # (Auto) (1.2-3.4) K/uL [place] # (Auto) (0.11-0.59) K/uL Eos # (Auto) (0-0.5) K/uL Baso # (Auto) (0-0.2) K/uL Immature Gran # (Auto) (0.00-0.02) K/uL Sodium (136-145) mmol/L Potassium (3.5-5.1) mmol/L Chloride (98-107) mmol/L Carbon Dioxide (21-32) mmol/L Anion Gap (3-11) BUN (7-18) mg/dl Creatinine (0.6-1.2) mg/dl Est Cr Clr Drug Dosing ml/min Est GFR ( Amer) ml/min Est GFR (Non-Af Amer) ml/min BUN/Creatinine Ratio (10-20) Glucose (70-99) mg/dl Calcium (8.5-10.1) mg/dl Phosphorus (2.5-4.9) mg/dl Magnesium (1.8-2.4) mg/dl Total Bilirubin (0.2-1) mg/dl AST (15-37) U/L ALT (12-78) U/L Alkaline Phosphatase (45-117) U/L Troponin I (0-0.045) ng/ml Total Protein (6.4-8.2) gm/dl Albumin (3.4-5.0) gm/dl Globulin (2.5-4.0) gm/dl Albumin/Globulin Ratio (0.9-2) TSH (0.300-4.500) uIu/ml Urine Color Yellow Urine Appearance Clear (Clear) Urine pH 8.0 H (4.5-7.5) Ur Specific [place] 1.004 (1.000-1.030) Urine Protein Negative (Negative) Urine Glucose (UA) Negative (Negative) Urine Ketones Negative (Negative) Urine Blood Negative (Negative) Urine Nitrite Negative (Negative) Urine Bilirubin Negative (Negative) Urine Urobilinogen Negative (Negative) Ur Leukocyte Esterase Negative (Negative) COVID-19 Eval Order Covid19 at [facility] SARS-CoV-2 (PCR) NEGATIVE (Negative) Administered Medications Clozapine (Clozapine 100 Mg Tab) 300 mg PO HS JAMEL Stop: 03/27/21 00:32 Last Admin: 02/25/21 01:55 Dose: 300 mg Documented by: [id number] Gabapentin (Gabapentin 100 Mg Cap) 200 mg PO HS JAMEL Stop: 03/27/21 01:14 Last Admin: 02/25/21 01:55 Dose: 200 mg Documented by: [id number] Parenteral Electrolytes (Normosol-R) 1,000 mls @ 50 mls/hr IV .Q20H STA Stop: 02/25/21 18:33 Last Admin: 02/24/21 22:44 Dose: 50 mls/hr Documented by: [id number] Insulin Aspart (Insulin Aspart 100 Units/Ml 3 Ml Pen) 0 units SC [facility] JAMEL Stop: 03/27/21 01:14 Last Admin: 02/25/21 01:54 Dose: Not Given Documented by: [id number] Discontinued Medications Sodium Chloride (Nss 1000ml) 1,000 mls @ 999 mls/hr IV .Q1H1M ONE Stop: 02/24/21 18:03 Last Infusion: 02/24/21 21:23 Dose: 0 mls/hr Documented by: [id number] Admin: 02/24/21 17:29 Dose: 999 mls/hr Documented by: [id number] Acetaminophen (Ofirmev) 1,000 mg in 100 mls @ 400 mls/hr IV NOW STA Stop: 02/24/21 17:17 Last Infusion: 02/24/21 17:47 Dose: 0 mls/hr Documented by: [id number] Admin: 02/24/21 17:25 Dose: 400 mls/hr Documented by: [id number] Famotidine (Pepcid 20mg Iv Push) 20 mg in 5 mls @ 2.5 mls/min IV NOW STA Stop: 02/24/21 17:04 Last Admin: 02/24/21 17:26 Dose: 2.5 mls/min Documented by: [id number] Promethazine HCl (Phenergan) 12.5 mg in 50.5 mls @ 202 mls/hr IV NOW STA Stop: 02/24/21 17:17 Last Infusion: 02/24/21 17:49 Dose: 0 mls/hr Documented by: [id number] Admin: 02/24/21 17:26 Dose: 202 mls/hr Documented by: [id number] Lisinopril (Lisinopril 10 Mg Tab) 10 mg PO NOW STA Stop: 02/24/21 20:49 Last Admin: 02/24/21 21:12 Dose: 10 mg Documented by: [id number] Lisinopril (Lisinopril 5 Mg Tab) 10 mg PO NOW ONE Stop: 02/24/21 20:54 Last Admin: 02/24/21 21:12 Dose: Not Given Documented by: [id number] Lisinopril (Lisinopril 5 Mg Tab) 10 mg PO NOW STA Stop: 02/24/21 22:06 Last Admin: 02/24/21 22:35 Dose: 10 mg Documented by: [id number] Imaging Data Radiologist's Impression: Chest X-Ray 02/24/21 14:28 SINGLE VIEW CHEST CLINICAL HISTORY: Generalized weakness. FINDINGS: 2 AP, portable, upright chest radiographs are compared to study dated 11/13/2020. The examination is degraded by portable technique and patient rotation. The heart is top normal for projection noting atherosclerotic calcification of the thoracic aorta. Chronic interstitial thickening is similar to previous. Scarring/atelectasis is seen at the lung bases. No airspace consolidation or large pleural effusion is identified. No pneumothorax is seen. The skeletal structures are osteopenic. The bony thorax is grossly intact. IMPRESSION: No active disease in the chest. ACT 112: Negative or not required by law. Electronically signed by: Patel Qiu M.D. 02/24/2021 5:21 PM Discharge Plan Visit Data Chief Complaint: Weakness ED Provider: Brian Feliz Discharge Problem: Dizziness, Hypertension, Dehydration, Generalized weakness, Nausea Patient Disposition: Admitted As Inpatient Discharge Instructions Interventions: ED Discharge Assessment Last Done: 02/25/21 00:45
[2021-02-24 21:20] LABS: Appearance Urine Clear (Clear); Bilirubin Urine Negative (Negative); Blood Urine Negative (Negative); Color Urine Yellow; Glucose Urine UA Negative (Negative); Ketones Urine Negative (Negative); Leukocyte Esterase Urine Negative (Negative); Nitrite Urine Negative (Negative); Protein Urine Negative (Negative); Specific Gravity Urine 1.004 (1.000-1.030); Urobilinogen Urine Negative (Negative)
--- NOTE | 2021-02-24 21:22 | History & Physical Report ---
Date of Service February 24, 2021 Assessment & Plan (1) Headache: (2) Hypertension: (3) Ambulatory dysfunction: (4) Schizophrenia: (5) DM2 (diabetes mellitus, type 2): Plan: This is a 70-year-old female who has significant past medical history of T2DM, diabetic neuropathy, HTN, HLD, hypothyroidism, GERD, migraine, schizophrenia, anxiety who presents to ED secondary to headache and inability to walk prior to arrival. Ambulatory dysfunction Headache - possible migraine vs HTN etiology admit supportive care and symptomatic tx of VILLASENOR reduction of blood pressure per Dr. Nunez PT/OT HTN Continue metoprolol, lisinopril Continue to monitor and treat as needed T2DM Last A1c 6.0 on 12/27/2020 Hold Metformin Lantus/NovoLog per protocol Schizophrenia Mood stable Continue Clozaril and nortriptyline Full code DVT prophylaxis: Per Dr. Nunez PCP: Gina Vann Pt was seen and examined in collaboration with Dr. Nunez, please see addendum for further assessment and treatment plan History of Present Illness Chief Complaint: VILLASENOR and inability to walk prior to arrival. Primary Care Provider: Raymond Vann, This is a 70-year-old female who has significant past medical history of T2DM, diabetic neuropathy, HTN, HLD, hypothyroidism, GERD, migraine, schizophrenia, anxiety who presents to ED secondary to headache and inability to walk prior to arrival. She states she developed head pain on the back and top of her head prior to arrival and was having difficulty walking. Therefore she summoned EMS. She describes her pain as a, "sharp ache." Pain initially was 10 out of 10 but now is about a 4 out of 10. She has had similar pain in the past with migraine. She denies any phono or photophobia. She denies any recent fever, chills, sweats, lightheadedness, dizziness, syncope, chest pain, shortness of breath, URI symptoms, cough, nausea, vomiting, abdominal pain, dysuria, hematuria, melena or hematochezia. She does admit to increased urinary urgency and frequency and currently is asking to go to the bathroom, despite having a pure wick in. She does live alone and typically ambulates with a walker. In ED patient was hemodynamically stable although she was modestly hypertensive with systolic pressures in the 180s. Her CBC and CMP was generally unremarkable except for mild hyperglycemia and hypoalbuminemia. Her urinalysis was negative for infection. Chest x-ray was negative and CT head is pending. Allergies Allergy/AdvReac Type Severity Reaction Status Date / Time Cephalosporins Allergy Intermediate Hallucinati Verified 02/24/21 17:33 ons Penicillins Allergy Intermediate Hives Verified 02/24/21 17:33 pollen extracts Allergy Intermediate seasonal Verified 02/24/21 17:33 allergy rizatriptan [From Maxalt] Allergy Unknown Unknown Verified 02/24/21 17:33 cyclobenzaprine AdvReac Intermediate neuro Verified 02/24/21 17:33 [From Flexeril] complications Home Medications Medication Instructions Recorded Confirmed Type duloxetine 60 mg capsule,delayed 60 mg PO QAM 04/14/18 02/24/21 History release (Cymbalta) levothyroxine 50 mcg tablet 50 mcg PO DAILYBB 04/14/18 02/24/21 History (Synthroid) nortriptyline 25 mg capsule 50 mg PO HS 04/14/18 02/24/21 History (Pamelor) omeprazole 20 mg capsule,delayed 40 mg PO HS 04/14/18 02/24/21 History release solifenacin 10 mg tablet (Vesicare) 10 mg PO HS 04/14/18 02/24/21 History cholecalciferol (vitamin D3) 1,250 50,000 unit PO WK 12/16/18 02/24/21 History mcg (50,000 unit) capsule (D3-50 Cholecalciferol) loratadine 10 mg tablet (Claritin) 10 mg PO HS 03/25/19 02/24/21 History magnesium oxide 400 mg PO QAM 03/25/19 02/24/21 History clozapine 100 mg tablet (Clozaril) 300 mg PO HS #30 tab 07/31/19 02/24/21 Rx atorvastatin 20 mg tablet 20 mg PO DAILY 11/22/19 02/24/21 History sumatriptan succinate 100 mg tablet 100 mg PO DIRECTED PRN 11/22/19 02/24/21 History gabapentin 100 mg capsule See Rx Instructions .ROUTE .COMPLEX 10/16/20 02/24/21 History lisinopril 10 mg tablet 10 mg PO HS 10/16/20 02/24/21 History metoprolol succinate 25 mg 25 mg PO DAILY 10/16/20 02/24/21 History tablet,extended release 24 hr clozapine 25 mg tablet 50 mg PO QAM 11/06/20 02/24/21 History metformin 500 mg tablet 500 mg PO QAM 02/24/21 02/24/21 History riboflavin (vitamin B2) 400 mg 400 mg PO DAILY 02/24/21 02/24/21 History tablet sennosides 8.6 mg-docusate sodium 1 - 2 tab PO DAILY 02/24/21 02/24/21 History 50 mg tablet (Senna Plus) Past Med/Surg History Medical History (Updated 02/25/21 @ 02:09 by Brian Feliz MD) Anxiety DM2 (diabetes mellitus, type 2) GERD (gastroesophageal reflux disease) Well controlled with medication HLD (hyperlipidemia) Hypertension Hypothyroidism Migraine Neuropathy Schizophrenia Somatization disorder Vertigo Surgical History H/O bilateral cataract extraction H/O brain surgery "abt 1969 R parietal exploration for benign lesion" H/O cystoscopy H/O foot surgery History of cataract surgery History of colonoscopy History of craniotomy 1969, IN [place] D/T HEADACHE---FOLLOWS W DR. MICHAEL History of tonsillectomy History of tooth extraction WISDOM TEETH S/P foot surgery, left X2 S/P foot surgery, right X2 Family History Grandmother Family history of diabetes mellitus PATERNAL Family/Other Family history of diabetes mellitus UNCLE Father Parkinson disease Mother CHF (congestive heart failure) Social History Smoking Status: Never smoker Second Hand Exposure: Yes (FATHER SMOKED); Hx Alcohol Use: No Hx Substance Use: No Preferred Language: Cape Verdean Communication Ability: Effective Media Liaison Officer Required: No Beliefs That Will Affect Care: None Current Living Situation: Alone Current Living Situation Comment: caretakers via home health agency Feels Safe at Home: Yes Safety Concerns: Feels Safe At This Time Assistive Devices: Walker Review of Systems Review of Systems: All systems reviewed & are unremarkable except as noted in HPI & below Physical Exam Physical Exam: Constitutional: Elderly, thin, female, alert answers questions appropriately, vitals as above, NAD, sitting up in bed, conversing easily Head: Normocephalic, Atraumatic Eyes: PERRL, conjunctivae normal, anicteric sclerae ENMT: external ear and nose normal, oropharynx normal Neck: trachea midline, no thyromegaly normal visual inspection Respiratory: normal respiratory effort, lungs clear to auscultation, no wheeze, rales, rhonchi. Normal insp/exp effort, no accessory muscle use Cardiovascular: RRR, no murmur, no edema Vessels: no JVD or carotid bruit Chest: normal inspection of chest Abdomen: normal bowel sounds, soft, nontender, no hepatosplenomegaly Musculoskeletal: no cyanosis or clubbing, extremities motor strength 5/5 Skin: no rashes, warm and dry normal turgor Neurologic: PERRL, EOMI, accommodation nl, no face palsy, no dysarthria CN's II-XI intact bilaterally and moves all extremities Psychiatric: A+Ox3, euthymic affect Lymphatic: no cervical or axillary lymphadenopathy : deferred, pure wick catheter in draining clear yellow urine Results & Data Results & Data ([facility]) Vital Signs (Past 12 Hours) Vital Signs Temp Pulse Pulse Resp BP BP Pulse Ox 02/24/21 21:05 78 17 181/97 H 100 02/24/21 20:30 71 12 210/110 H 100 02/24/21 20:23 69 208/94 H 98 02/24/21 17:22 66 20 166/76 H 100 02/24/21 14:23 36.6 C 80 18 146/78 H 99 Diagnostic Findings Chest X-Ray 02/24/21 14:28 SINGLE VIEW CHEST CLINICAL HISTORY: Generalized weakness. FINDINGS: 2 AP, portable, upright chest radiographs are compared to study dated 11/13/2020. The examination is degraded by portable technique and patient rotation. The heart is top normal for projection noting atherosclerotic calcification of the thoracic aorta. Chronic interstitial thickening is similar to previous. Scarring/atelectasis is seen at the lung bases. No airspace consolidation or large pleural effusion is identified. No pneumothorax is seen. The skeletal structures are osteopenic. The bony thorax is grossly intact. IMPRESSION: No active disease in the chest. ACT 112: Negative or not required by law. Electronically signed by: Patel Qiu M.D. 02/24/2021 5:21 PM Medications Administered Medication List Discontinued Medications Sodium Chloride (Nss 1000ml) 1,000 mls @ 999 mls/hr IV .Q1H1M ONE Stop: 02/24/21 18:03 Last Infusion: 02/24/21 21:23 Dose: 0 mls/hr Documented by: [id number] Admin: 02/24/21 17:29 Dose: 999 mls/hr Documented by: [id number] Acetaminophen (Ofirmev) 1,000 mg in 100 mls @ 400 mls/hr IV NOW STA Stop: 02/24/21 17:17 Last Infusion: 02/24/21 17:47 Dose: 0 mls/hr Documented by: [id number] Admin: 02/24/21 17:25 Dose: 400 mls/hr Documented by: [id number] Famotidine (Pepcid 20mg Iv Push) 20 mg in 5 mls @ 2.5 mls/min IV NOW STA Stop: 02/24/21 17:04 Last Admin: 02/24/21 17:26 Dose: 2.5 mls/min Documented by: [id number] Promethazine HCl (Phenergan) 12.5 mg in 50.5 mls @ 202 mls/hr IV NOW STA Stop: 02/24/21 17:17 Last Infusion: 02/24/21 17:49 Dose: 0 mls/hr Documented by: [id number] Admin: 02/24/21 17:26 Dose: 202 mls/hr Documented by: [id number] Lisinopril (Lisinopril 10 Mg Tab) 10 mg PO NOW STA Stop: 02/24/21 20:49 Last Admin: 02/24/21 21:12 Dose: 10 mg Documented by: [id number] Lisinopril (Lisinopril 5 Mg Tab) 10 mg PO NOW ONE Stop: 02/24/21 20:54 Last Admin: 02/24/21 21:12 Dose: Not Given Documented by: [id number] COVID-19 Results Results COVID-19 Adm Lab Results: RBC 4.06 M/uL (4.2-5.4) L 02/24/21 WBC 6.85 K/uL (4.8-10.8) 02/24/21 Hgb 11.3 g/dL (12.0-16.0) L 02/24/21 Hct 35.3 % (37-47) L 02/24/21 Plt Count 209 K/uL (130-400) 02/24/21 Neutrophils (%) (Auto) 66.6 % 02/24/21 Lymphocytes (%) (Auto) 22.6 % 02/24/21 Monocytes # (Auto) 0.71 K/uL (0.11-0.59) H 02/24/21 Eosinophils # (Auto) 0.00 K/uL (0-0.5) 02/24/21 Immature Granulocyte % (Auto) 0.1 % 02/24/21 Neutrophils # (Auto) 4.56 K/uL (1.4-6.5) 02/24/21 Lymphocytes # (Auto) 1.55 K/uL (1.2-3.4) 02/24/21 Monocytes # (Auto) 0.71 K/uL (0.11-0.59) H 02/24/21 Eosinophils # (Auto) 0.00 K/uL (0-0.5) 02/24/21 Basophils # (Auto) 0.02 K/uL (0-0.2) 02/24/21 Immature Granulocyte # (Auto) 0.01 K/uL (0.00-0.02) 02/24/21 Na 140 mmol/L (136-145) 02/24/21 K 3.6 mmol/L (3.5-5.1) 02/24/21 Cl 107 mmol/L (98-107) 02/24/21 CO2 27 mmol/L (21-32) 02/24/21 Anion Gap 6.0 (3-11) 02/24/21 BUN 12 mg/dl (7-18) 02/24/21 Creatinine 0.88 mg/dl (0.6-1.2) 02/24/21 BUN/Creatinine Ratio 13.1 (10-20) 02/24/21 Glucose Level 131 mg/dl (70-99) H 02/24/21 Ca 8.7 mg/dl (8.5-10.1) 02/24/21 Phosphorus Level 2.7 mg/dl (2.5-4.9) 02/24/21 Total Bilirubin 0.3 mg/dl (0.2-1) 02/24/21 AST/SGOT 12 U/L (15-37) L 02/24/21 ALT/SGPT 19 U/L (12-78) 02/24/21 Alkaline Phosphatase 89 U/L (45-117) 02/24/21 Total Protein 6.2 gm/dl (6.4-8.2) L 02/24/21 Albumin 3.3 gm/dl (3.4-5.0) L 02/24/21 Globulin 2.9 gm/dl (2.5-4.0) 02/24/21 Albumin/Globulin Ratio 1.1 (0.9-2) 02/24/21 Troponin I < 0.015 ng/ml (0-0.045) 02/24/21 COVID-19 PCR NEGATIVE (Negative) 02/24/21 Chest X-Ray 02/24/21 Code Status & VTE Plan Code Status Full Code Supervising Physician Co-Signing Physician Notes IM ATTENDING : Patient seen and examined. History obtained from patient and records. Preceding documentation by Ms. Connie Becerra PA-C reviewed. FINAL ASSESSMENT AND PLAN as follows : Hypertensive crisis ? Compliance ? Functional disability, history paranoid schizophrenia/history multiple ER visits DM2, on oral meds, well controlled as of recent outpx HgA1c of 6 last November 2020. Chronic anemia, hemoglobin at baseline Hypothyroidism, euthyroid as of today's TSH PCU Facilitate home BP meds, may need dose titration Basal insulin, ISS ISS BG goal 140-180, carb count coverage PT OT eval DVT prophylaxis, Lovenox subQ. Full code. Patient requesting for her sister to be updated of plan of care. Ms. Alisson Peterson, contact numbers [phone]. Text document was generated using [employer] voice recognition software. It may contain grammatical or spelling errors. Kindly contact undersigned for clarification of any documentation item in question. (1) Headache Headache chronicity pattern: acute headache Headache type: unspecified Intractability: not intractable Qualified Code(s): R51 - Headache (2) Hypertension Hypertension type: essential hypertension Qualified Code(s): I10 - Essential (primary) hypertension
[2021-02-24] MEDS ORDERED: lisinopril 5 MG TAB PO STA (22:05)
[2021-02-24] MEDS ORDERED: NORMOSOL-R 1,000 ML IV STA (22:34)
[2021-02-25] MEDS ORDERED: GLUCOSE 10 TABS/TUBE PO PRN (00:33)
[2021-02-25] MEDS ORDERED: CARBOHYDRATES FOR HYPOGLYCEMIA PO PRN (00:33)
[2021-02-25] MEDS ORDERED: METOCLOPRAMIDE HCL INJ 5 MG/ML 2 ML VIAL IV PRN (00:33)
[2021-02-25] MEDS ORDERED: GLUCAGON FOR INJ 1 MG VIAL SQ PRN (00:33)
[2021-02-25] MEDS ORDERED: ACETAMINOPHEN 325 MG TAB PO PRN (00:33)
[2021-02-25] MEDS ORDERED: GLUCOSE 40% GEL 15 GM TUBE PO PRN (00:33)
[2021-02-25] MEDS ORDERED: NITROGLYCERIN SL 0.4 MG/TAB TAB SL PRN (00:33)
[2021-02-25] MEDS ORDERED: DEXTROSE 50% 50 ML SYRINGE IV PRN (00:33)
[2021-02-25] MEDS: INSULIN ASPART 100 UNITS/ML 3 ML PEN SC SCH ×5 (01:54→20:12)
[2021-02-25] MEDS: cloZAPine 100 MG TAB PO SCH ×2 (01:55→20:11)
[2021-02-25] MEDS: GABAPENTIN 100 MG CAP PO SCH ×4 (01:55→20:11)
[2021-02-25] MEDS ORDERED: METOPROLOL SUCC 25MG EXT REL TAB PO SCH ×2 (02:25→09:00)
[2021-02-25] MEDS: LEVOTHYROXINE SODIUM 50 MCG TABLET PO SCH (06:09)
[2021-02-25 06:32] LABS: Basophils # (auto) 0.04 K/uL (0-0.2); Basophils % (auto) 0.8 %; Hematocrit (blood only) 36.9 % (37-47); Hemoglobin 12.1 g/dL (12.0-16.0); Immature Granulocytes # (auto) 0.01 K/uL (0.00-0.02); Immature Granulocytes % (auto) 0.2 %; Lymphocytes # (auto) 1.52 K/uL (1.2-3.4); Lymphocytes % (auto) 29.1 %; Mean Corpuscular Hemoglobin 27.8 pg (25-34); Mean Corpuscular Hgb Conc 32.8 g/dL (32-36); Mean Corpuscular Volume 84.8 fL (80-100); Mean Platelet Volume 10.2 fL (7.4-10.4); Monocytes # (auto) 0.57 K/uL (0.11-0.59); Monocytes % (auto) 10.9 %; Neutrophils # (auto) 3.09 K/uL (1.4-6.5); Platelet Count 209 K/uL (130-400); RDW Coefficient of Variation 16.4 % (11.5-14.5); RDW Standard Deviation 51.7 fL (36.4-46.3); Red Blood Count 4.35 M/uL (4.2-5.4); White Blood Count 5.23 K/uL (4.8-10.8)
--- NOTE | 2021-02-25 06:36 | CT Scan Report ---
CT head/brain wo con CLINICAL HISTORY: 70 years-old Female with headache dizzy. Acute headache with dizziness TECHNIQUE: Multiple axial CT images of the head were obtained without contrast. A dose lowering tech nique was utilized adhering to the principles of ALARA. CT DOSE: 537.48 mGy.cm COMPARISON: Head CT 11/25/2020 FINDINGS: No acute intracranial hemorrhage, midline shift, intracranial mass, hydrocephalus, territorial ischem ia or abnormal extra-axial collection. Mild involutional changes. Postoperative changes of the right parietal calvarium redemonstrated. No acute calvarial fracture. Th e paranasal sinuses, mastoid air cells, and middle ear cavities are clear. IMPRESSION: No acute intracranial abnormality. ACT 112: Negative or not required by law. The above report was generated using voice recognition software. It may contain grammatical, syntax o r spelling errors. Electronically signed by: Live Mancera M.D. 02/25/2021 6:34 AM
[2021-02-25 07:08] LABS: BUN Creatinine Ratio 12.8 (10-20); Calcium 8.7 mg/dl (8.5-10.1); Creatinine Clr Calc Pharmacy 84.4 ml/min; Est GFR (African American) 109.4 ml/min; Est GFR (Non-African American) 94.4 ml/min; Potassium 3.4 mmol/L (3.5-5.1)
[2021-02-25] MEDS: VESICARE~ORDER AWAITING ACTION SCH ×3 (07:55→20:13)
[2021-02-25] MEDS ORDERED: NON-FORMULARY MEDICATION (Riboflavin (Vitamin B2) 400 mg tablet) PO SCH (09:00)
[2021-02-25] MEDS: cloZAPine 25 MG TAB PO SCH (09:01)
[2021-02-25] MEDS: DOCUSATE SODIUM/SENNA 50/8.6MG TAB PO SCH (09:01)
[2021-02-25] MEDS: DULoxetine HCL 60 MG CAP PO SCH (09:01)
[2021-02-25] MEDS: ATORVASTATIN 20 MG TAB PO SCH (09:01)
[2021-02-25] MEDS: ENOXAPARIN INJ 30 MG/0.3 ML SYR SQ SCH (09:02)
[2021-02-25] MEDS ORDERED: METOPROLOL SUCC 25MG EXT REL TAB PO STA (09:38)
--- NOTE | 2021-02-25 15:52 | Hospitalist Progress Note ---
Date of Service February 25, 2021 Assessment & Plan (1) Headache: (2) Hypertension: (3) Ambulatory dysfunction: (4) Schizophrenia: (5) DM2 (diabetes mellitus, type 2): Plan: This is a 70-year-old female who has significant past medical history of T2DM, diabetic neuropathy, HTN, HLD, hypothyroidism, GERD, migraine, schizophrenia, anxiety who presents to ED secondary to headache and inability to walk prior to arrival. Ambulatory dysfunction Headache - possible migraine vs HTN etiology supportive care and symptomatic tx of VILLASENOR reduction of blood pressure per Dr. Mcdonnell PT/OT evaluation for possible placement Has been at home with caregiver Needs assistance in ADL S HTN Continue metoprolol, lisinopril Continue to monitor and treat as needed Blood pressure seems to be improving T2DM Last A1c 6.0 on 12/27/2020 Hold Metformin Lantus/NovoLog per protocol Schizophrenia Mood stable Continue Clozaril and nortriptyline Occasional confusion without any hallucination Full code DVT prophylaxis: Per Dr. Mcdonnell PCP: Gina Vann Admission and Anticipated Discharge Date Admission Date: February 24, 2021 Subjective 02/25/2021 Patient was seen and examined in medical telemetry unit She has been feeling much better Abdominal pain is improved and no more nausea and or vomiting No fever and chills Review of Systems Review of Systems: All systems reviewed and are unremarkable except as noted below Gastrointestinal: Minimal abdominal pain Physical Exam Physical Exam: Lying in bed comfortably Constitutional: average body habitus; not ill appearing Eyes: PERRL, conjunctivae normal, anicteric sclerae ENMT: external ear and nose normal, oropharynx normal Neck: trachea midline, no thyromegaly Respiratory: no respiratory distress and no cough Cardiovascular: Rate/Rhythm: regular rate and regular rhythm; not tachycardic Heart Sounds: normal S1, normal S2 and + murmur (2/6 ESM over precordium) Gastrointestinal (Abdomen): Inspection/Auscultation: abdomen not distended Percussion/Palpation: abdomen soft; abdomen nontender Neurologic: Alert and awake. Easily confused Psychiatric: Has schizophrenia without any hallucination Results & Data Results & Data ([facility]) Vital Signs (Past 12 Hours) Vital Signs Temp Pulse Pulse Resp BP Pulse Ox 02/25/21 11:02 68 168/82 H 02/25/21 08:00 36.5 C 83 18 182/69 H 98 02/25/21 07:30 64 Laboratory Results Short CBC 02/25/21 Range/Units 06:05 WBC 5.23 (4.8-10.8) K/uL Hgb 12.1 (12.0-16.0) g/dL Hct 36.9 L (37-47) % Plt Count 209 (130-400) K/uL BMP 02/25/21 06:05 Sodium 142 Potassium 3.4 L Chloride 111 H Carbon Dioxide 26 BUN 7 D Creatinine 0.55 L D Glucose 103 H Calcium 8.7 Urine 02/24/21 Range/Units 21:10 Urine Color Yellow Urine Appearance Clear (Clear) Urine pH 8.0 H (4.5-7.5) Ur Specific Hurley 1.004 (1.000-1.030) Urine Protein Negative (Negative) Urine Glucose (UA) Negative (Negative) Medications Administered Current Inpatient Medications Acetaminophen (Acetaminophen 325 Mg Tab) 650 mg PO Q4H PRN PRN Reason: Pain or Fever Stop: 03/27/21 00:32 Atorvastatin Calcium (Atorvastatin 20 Mg Tab) 20 mg PO DAILY JAMEL Stop: 03/27/21 08:59 Last Admin: 02/25/21 09:01 Dose: 20 mg Documented by: Clozapine (Clozapine 25 Mg Tab) [facility] Stop: 03/27/21 08:59 Last Admin: 02/25/21 09:01 Dose: 50 mg Documented by: Clozapine (Clozapine 100 Mg Tab) 300 mg PO [facility] Stop: 03/27/21 00:32 Last Admin: 02/25/21 01:55 Dose: 300 mg Documented by: Dextrose (Dextrose 50% 50 Ml Syringe) 25 - 50 ml IV UD PRN; Protocol PRN Reason: Hypoglycemia Protocol Stop: 03/27/21 00:32 Duloxetine HCl (Duloxetine Hcl 60 Mg Cap) 60 mg PO QA JAMEL Stop: 03/27/21 08:59 Last Admin: 02/25/21 09:01 Dose: 60 mg Documented by: Enoxaparin Sodium (Enoxaparin Inj 30 Mg/0.3 Ml Syr) 30 mg SQ QAM JAMEL Stop: 03/27/21 08:59 Last Admin: 02/25/21 09:02 Dose: 30 mg Documented by: Gabapentin (Gabapentin 100 Mg Cap) 200 mg PO [facility] Stop: 03/27/21 01:14 Last Admin: 02/25/21 01:55 Dose: 200 mg Documented by: Gabapentin (Gabapentin 100 Mg Cap) 100 mg PO BID@0900,1400 [facility] Stop: 03/27/21 08:59 Last Admin: 02/25/21 14:47 Dose: 100 mg Documented by: Glucagon (Glucagon For Inj 1 Mg Vial) 1 mg SQ UD PRN; Protocol PRN Reason: Hypoglycemia Protocol Stop: 03/27/21 00:32 Glucose (Glucose 10 Tabs/Tube) 4 - 8 tabs PO UD PRN; Protocol PRN Reason: Hypoglycemia Protocol Stop: 03/27/21 00:32 Glucose (Glucose 40% Gel 15 Gm Tube) 15 - 30 gm PO UD PRN; Protocol PRN Reason: Hypoglycemia Protocol Stop: 03/27/21 00:32 Parenteral Electrolytes (Normosol-R) 1,000 mls @ 50 mls/hr IV .Q20H STA Stop: 02/25/21 18:33 Last Admin: 02/24/21 22:44 Dose: 50 mls/hr Documented by: Insulin Aspart (Insulin Aspart 100 Units/Ml 3 Ml Pen) 0 units SC ACHS JAMEL Stop: 03/27/21 01:14 Last Admin: 02/25/21 16:45 Dose: 3 units Documented by: Levothyroxine Sodium (Levothyroxine Sodium 50 Mcg Tablet) 50 mcg PO DAILYBB [facility] Stop: 03/27/21 06:29 Last Admin: 02/25/21 06:09 Dose: 50 mcg Documented by: Lisinopril (Lisinopril 20 Mg Tab) 20 mg PO HS [facility] Stop: 03/27/21 20:59 Loratadine (Loratadine 10 Mg Tab) 10 mg PO HS [facility] Stop: 03/27/21 20:59 Metoclopramide HCl (Metoclopramide Hcl Inj 5 Mg/Ml 2 Ml Vial) 5 mg IV Q6H PRN PRN Reason: nv Stop: 03/27/21 00:32 Metoprolol Succinate (Metoprolol Succ 50mg Ext Rel Tab) 50 mg PO DAILY [facility] Stop: 03/28/21 08:59 Miscellaneous (Vesicare~Order Awaiting Action) 1 ea N/A QS JAMEL Stop: 03/27/21 07:59 Last Admin: 02/25/21 14:47 Dose: Not Given Documented by: Miscellaneous (Carbohydrates For Hypoglycemia ) 15 - 30 gm PO UD PRN PRN Reason: Hypoglycemia Protocol Stop: 03/27/21 00:32 Nitroglycerin (Nitroglycerin Sl 0.4 Mg/Tab Tab) 0.4 mg SL UD PRN PRN Reason: Chest Pain Stop: 03/27/21 00:32 Pantoprazole Sodium (Pantoprazole 40 Mg Tab) 40 mg PO HS JAMEL Stop: 03/27/21 20:59 Senna/Docusate Sodium (Docusate Sodium/Senna 50/8.6mg Tab) 1 tab PO DAILY JAMEL Stop: 03/27/21 08:59 Last Admin: 02/25/21 09:01 Dose: 1 tab Documented by: (1) Headache Headache chronicity pattern: acute headache Headache type: unspecified Intractability: not intractable Qualified Code(s): R51 - Headache (2) Hypertension Hypertension type: essential hypertension Qualified Code(s): I10 - Essential (primary) hypertension
--- NOTE | 2021-02-25 17:24 | Electrocardiogram Report ---
Test Reason : Blood Pressure : / mmHG Vent. Rate : 080 BPM Atrial Rate : 080 BPM P-R Int : 142 ms QRS Dur : 084 ms QT Int : 400 ms P-R-T Axes : 064 022 005 degrees QTc Int : 462 ms Normal sinus rhythm Nonspecific ST and T wave abnormality Abnormal ECG When compared with ECG of 25-NOV-2020 12:25, No significant change Confirmed by Kin Hicks ([id number]) on 02/25/2021 5:24:10 PM Referred By: REFERRED SELF Confirmed By:Kin Hicks
[2021-02-25] MEDS: LORATADINE 10 MG TAB PO SCH (20:11)
[2021-02-25] MEDS: lisinopril 20 MG TAB PO SCH (20:12)
[2021-02-25] MEDS: PANTOprazole 40 MG TAB PO SCH (20:12)
[2021-02-26] MEDS: LEVOTHYROXINE SODIUM 50 MCG TABLET PO SCH (04:57)
[2021-02-26 06:39] LABS: Basophils # (auto) 0.02 K/uL (0-0.2); Basophils % (auto) 0.4 %; Hematocrit (blood only) 36.8 % (37-47); Hemoglobin 12.1 g/dL (12.0-16.0); Lymphocytes # (auto) 1.96 K/uL (1.2-3.4); Lymphocytes % (auto) 36.5 %; Mean Corpuscular Hemoglobin 28.2 pg (25-34); Mean Corpuscular Hgb Conc 32.9 g/dL (32-36); Mean Corpuscular Volume 85.8 fL (80-100); Mean Platelet Volume 10.1 fL (7.4-10.4); Monocytes # (auto) 0.62 K/uL (0.11-0.59); Monocytes % (auto) 11.5 %; Neutrophils # (auto) 2.77 K/uL (1.4-6.5); Neutrophils % (auto) 51.6 %; Platelet Count 200 K/uL (130-400); RDW Coefficient of Variation 16.6 % (11.5-14.5); RDW Standard Deviation 52.6 fL (36.4-46.3); Red Blood Count 4.29 M/uL (4.2-5.4); White Blood Count 5.37 K/uL (4.8-10.8)
[2021-02-26 07:12] LABS: BUN Creatinine Ratio 16.7 (10-20); Calcium 8.5 mg/dl (8.5-10.1); Creatinine Clr Calc Pharmacy 71.2 ml/min; Est GFR (African American) 103.5 ml/min; Est GFR (Non-African American) 89.3 ml/min; Potassium 3.6 mmol/L (3.5-5.1)
[2021-02-26 07:19] LABS: Phosphorus 3.6 mg/dl (2.5-4.9)
[2021-02-26] MEDS: INSULIN ASPART 100 UNITS/ML 3 ML PEN SC SCH ×4 (07:25→20:57)
[2021-02-26] MEDS: ATORVASTATIN 20 MG TAB PO SCH (11:47)
[2021-02-26] MEDS: cloZAPine 25 MG TAB PO SCH (11:47)
[2021-02-26] MEDS: VESICARE~ORDER AWAITING ACTION SCH ×3 (11:47→23:46)
[2021-02-26] MEDS: DULoxetine HCL 60 MG CAP PO SCH (11:48)
[2021-02-26] MEDS: DOCUSATE SODIUM/SENNA 50/8.6MG TAB PO SCH (11:48)
[2021-02-26] MEDS: METOPROLOL SUCC 50MG EXT REL TAB PO SCH (11:48)
[2021-02-26] MEDS: ENOXAPARIN INJ 30 MG/0.3 ML SYR SQ SCH (11:49)
[2021-02-26] MEDS: GABAPENTIN 100 MG CAP PO SCH ×3 (11:49→20:03)
--- NOTE | 2021-02-26 14:58 | Hospitalist Progress Note ---
Date of Service February 26, 2021 Assessment & Plan (1) Ambulatory dysfunction: (2) Headache: (3) Hypertension: (4) Schizophrenia: (5) DM2 (diabetes mellitus, type 2): Plan: Ambulatory dysfunction - PT/OT recommended SNF ([facility] is ready to take the pt) Headache - possible migraine vs HTN etiology supportive care and symptomatic tx of VILLASENOR Has been at home with caregiver Needs assistance in ADL S HTN: improving Continue metoprolol, lisinopril Continue to monitor and treat as needed T2DM Last A1c 6.0 on 12/27/2020 Hold Metformin Lantus/NovoLog per protocol Schizophrenia - for now will continue current medication - had episode of delirium yesterday night Continue Clozaril and nortriptyline Likely discharge tomorrow Full code DVT prophylaxis: Per Dr. Mcdonnell PCP: Gina Vann Admission and Anticipated Discharge Date Admission Date: February 26, 2021 Subjective Pt is a 70 y/o F with hx of T2DM, diabetic neuropathy, HTN, HLD, hypothyroidism, GERD, migraine, schizophrenia, anxiety admitted for HTN and ambulatory dysfunction Today at bedside: - pt is sleeping. Denied any acute distress - per nurse overnight: pt was combative and had episode of delirium. Review of Systems Review of Systems: Unobtainable due to cognitive status (pt was very sleepy ) Physical Exam Physical Exam: General:appeared drowsy, well developed Lungs:. CTA, no wheezing or crackles Heart:. Normal S1, S2, no murmur Abdominal:. ND, Soft, NT Psych:drowsy Results & Data Results & Data ([facility]) Vital Signs (Past 12 Hours) Vital Signs Temp Pulse Pulse Resp BP Pulse Ox 02/26/21 11:45 36.8 C 72 16 154/71 H 97 02/26/21 09:02 36.6 C 62 17 166/83 H 97 02/26/21 08:00 64 02/26/21 07:16 64 02/26/21 03:08 36.7 C 60 17 124/75 96 Laboratory Results Short CBC 02/26/21 Range/Units 06:27 WBC 5.37 (4.8-10.8) K/uL Hgb 12.1 (12.0-16.0) g/dL Hct 36.8 L (37-47) % Plt Count 200 (130-400) K/uL BMP 02/26/21 06:27 Sodium 141 Potassium 3.6 Chloride 110 H Carbon Dioxide 29 BUN 11 D Creatinine 0.65 Glucose 107 H Calcium 8.5 (1) Headache Headache chronicity pattern: acute headache Headache type: unspecified Intractability: not intractable Qualified Code(s): R51 - Headache (2) Hypertension Hypertension type: essential hypertension Qualified Code(s): I10 - Essential (primary) hypertension
[2021-02-26 17:42] LABS: Appearance Urine Clear (Clear); Bacteria Urine Automated 4+ (Negative); Bilirubin Urine Negative (Negative); Blood Urine Negative (Negative); Cast Urine Automated 0 /lpf (0-5); Color Urine Dark Yellow; Epithelial Cell Urine Auto 20-30 /lpf (0-5); Glucose Urine UA Negative (Negative); Ketones Urine Trace (Negative); Leukocyte Esterase Urine Trace (Negative); Nitrite Urine Positive (Negative); Protein Urine Negative (Negative); Specific Gravity Urine 1.018 (1.000-1.030); Urobilinogen Urine Negative (Negative); pH Urine 6.5 (4.5-7.5)
--- NOTE | 2021-02-26 17:43 | Communication Note ---
Date of Service: February 26, 2021 At bedside: pt was sitting on the bed. denied any acute complaint but stated that she would like to go to the bathroom - pt is only Alert to person. Not to time or date - per nurse pt was more alert yesterday - VSS and normal WBC today - will get a UA to rule out UTI
[2021-02-26] MEDS: lisinopril 20 MG TAB PO SCH (20:02)
[2021-02-26] MEDS: cloZAPine 100 MG TAB PO SCH (20:03)
[2021-02-26] MEDS: PANTOprazole 40 MG TAB PO SCH (20:03)
[2021-02-26] MEDS: LORATADINE 10 MG TAB PO SCH (20:03)
[2021-02-26] MEDS ORDERED: NORTRIPTYLINE HCL 25 MG CAP PO SCH (21:00)
[2021-02-26] MEDS: SULFAMETHOXAZOLE/TRIMETHOPRIM DS 800/160MG TAB PO SCH (21:29)
[2021-02-27] MEDS: LEVOTHYROXINE SODIUM 50 MCG TABLET PO SCH (05:38)
[2021-02-27] MEDS ORDERED: METOPROLOL SUCC 25MG EXT REL TAB PO SCH (09:00)
[2021-02-27 09:01] LABS: BUN Creatinine Ratio 30.8 (10-20); Calcium 8.9 mg/dl (8.5-10.1); Creatinine Clr Calc Pharmacy 71.2 ml/min; Est GFR (African American) 103.5 ml/min; Est GFR (Non-African American) 89.3 ml/min; Potassium 3.6 mmol/L (3.5-5.1)
[2021-02-27] MEDS: INSULIN ASPART 100 UNITS/ML 3 ML PEN SC SCH ×2 (10:52→13:07)
[2021-02-27] MEDS: VESICARE~ORDER AWAITING ACTION SCH (10:52)
[2021-02-27] MEDS: ATORVASTATIN 20 MG TAB PO SCH (10:59)
[2021-02-27] MEDS: cloZAPine 25 MG TAB PO SCH (10:59)
[2021-02-27] MEDS: DOCUSATE SODIUM/SENNA 50/8.6MG TAB PO SCH (10:59)
[2021-02-27] MEDS: DULoxetine HCL 60 MG CAP PO SCH (11:00)
[2021-02-27] MEDS: GABAPENTIN 100 MG CAP PO SCH ×2 (11:00→14:58)
[2021-02-27] MEDS: SULFAMETHOXAZOLE/TRIMETHOPRIM DS 800/160MG TAB PO SCH (11:01)
[2021-02-27] MEDS: ENOXAPARIN INJ 30 MG/0.3 ML SYR SQ SCH (11:01)
[2021-02-27] MEDS: METOPROLOL SUCC 50MG EXT REL TAB PO SCH (11:04)
--- NOTE | 2021-02-27 14:07 | Communication Note ---
Date of Service: February 27, 2021 At bedside: - pt is more awake - denied any discomfort - Pt is AAOx 2 (could not remember the month and date) - spoke to pt's caregiver (Sidney : [phone]) --- pt has baseline dementia and sometime have difficulty remembering current date - Pt has a bed an [facility] - caregiver going to take the pt to [facility] (she is also going to bring in Clozapine tablets- [facility] would like pt to bring in her own clozapine tablets) UTI: - will discharge the pt on bactrim for 6 more days
--- NOTE | 2021-02-27 14:26 | Discharge Summary ---
Date of Service February 27, 2021 Admission HPI Per Admitting Provider This is a 70-year-old female who has significant past medical history of T2DM, diabetic neuropathy, HTN, HLD, hypothyroidism, GERD, migraine, schizophrenia, anxiety who presents to ED secondary to headache and inability to walk prior to arrival. She states she developed head pain on the back and top of her head prior to arrival and was having difficulty walking. Therefore she summoned EMS. She describes her pain as a, "sharp ache." Pain initially was 10 out of 10 but now is about a 4 out of 10. She has had similar pain in the past with migraine. She denies any phono or photophobia. She denies any recent fever, chills, sweats, lightheadedness, dizziness, syncope, chest pain, shortness of breath, URI symptoms, cough, nausea, vomiting, abdominal pain, dysuria, hematuria, melena or hematochezia. She does admit to increased urinary urgency and frequency and currently is asking to go to the bathroom, despite having a pure wick in. She does live alone and typically ambulates with a walker. In ED taras ent was hemodynamically stable although she was modestly hypertensive with systolic pressures in the 180s. Her CBC and CMP was generally unremarkable except for mild hyperglycemia and hypoalbuminemia. Her urinalysis was negative for infection. Chest x-ray was negative and CT head is pending. Admission Exam Per Admitting Provider Constitutional: Elderly, thin, female, alert answers questions appropriately, vitals as above, NAD, sitting up in bed, conversing easily Head: Normocephalic, Atraumatic Eyes: PERRL, conjunctivae normal, anicteric sclerae ENMT: external ear and nose normal, oropharynx normal Neck: trachea midline, no thyromegaly normal visual inspection Respiratory: normal respiratory effort, lungs clear to auscultation, no wheeze, rales, rhonchi. Normal insp/exp effort, no accessory muscle use Cardiovascular: RRR, no murmur, no edema Vessels: no JVD or carotid bruit Chest: normal inspection of chest Abdomen: normal bowel sounds, soft, nontender, no hepatosplenomegaly Musculoskeletal: no cyanosis or clubbing, extremities motor strength 5/5 Skin: no rashes, warm and dry normal turgor Neurologic: PERRL, EOMI, accommodation nl, no face palsy, no dysarthria CN's II-XI intact bilaterally and moves all extremities Psychiatric: A+Ox3, euthymic affect Lymphatic: no cervical or axillary lymphadenopathy : deferred, pure wick catheter in draining clear yellow urine Principal Diagnosis HTN, Ambulatory dysfunction and UTI Discharge Data Allergies Allergy/AdvReac Type Severity Reaction Status Date / Time Cephalosporins Allergy Intermediate Hallucinati Verified 02/24/21 17:33 ons Penicillins Allergy Intermediate Hives Verified 02/24/21 17:33 pollen extracts Allergy Intermediate seasonal Verified 02/24/21 17:33 allergy rizatriptan [From Maxalt] Allergy Unknown Unknown Verified 02/24/21 17:33 cyclobenzaprine AdvReac Intermediate neuro Verified 02/24/21 17:33 [From Flexeril] complications Consultations 02/24/21 21:43 ED Decision to Admit Stat Ordered Studies 02/24/21 20:47 CT head/brain wo con Urgent Hospital Course (1) UTI (urinary tract infection): (2) Ambulatory dysfunction: (3) Headache: (4) Hypertension: (5) Schizophrenia: (6) DM2 (diabetes mellitus, type 2): UTI: - UCx: Gram neg bacilli - Bactrim for 7 days: already received 2 doses in the hospital - Needs to be on bactrim until 03/05 HTN: - BP improved with metoprolol Xl 50mg daily - c/w Lisinopril 10mg daily, Ambulatory dysfunction - PT/OT recommended SNF Headache - possible migraine vs HTN etiology supportive care and symptomatic tx of VILLASENOR Dementia: - spoke to pt's caregiver ([facility] : [phone]) --- pt has baseline dementia and sometime have difficulty remembering current date Has been at home with caregiver Needs assistance in ADLS T2DM Last A1c 6.0 on 12/27/2020 - c/w home DMII meds Schizophrenia - for now will continue current medication Continue Clozaril and nortriptyline Likely discharge tomorrow Full code DVT prophylaxis: Lovenox PCP: Gina Vann Total Time Total Time Spent Total Time Spent (In Minutes): 40 Discharge Plan Discharge Items Patient Disposition: Transfer Inpatient Rehab Fac Reason For Visit: HTN CRISIS Discharge Diagnosis: UTI and HTN crisis Condition on Discharge: Good Activity: Resume your previous activity Non-emergency contact: Primary Care Provider Call non-emergency contact if: your symptoms worsen Follow-up/Referrals: Raymond Vann DO [Primary Care Provider] - (Date & Time 03/02/2021 11:00 [facility] ) Diet: Carb Consistent or DM2 Addtl Attending Provider Instructions: Please take bactrim DS twice a day until 03/05/21 AM Your blood pressure medication Metoprolol was increased to 50 mg daily from 25mg daily Pending Studies at Discharge: No Stand-Alone Forms: My [facility] [employer] Skilled Items Patient informed of condition?: Yes DNR: No Discharge Level of Care: Acute rehab Communicable Disease: No Discharge Prognosis: Improving Lines: None Urinary Catheter: No Medications and DC Order Prescriptions: New sulfamethoxazole-trimethoprim [Bactrim DS] 800-160 mg Tablet 1 tab PO Q12 6 Days Qty: 12 RF: 0 metoprolol succinate 50 mg Tablet Extended Release 24 Hr 50 mg PO DAILY Qty: 30 RF: 0 gabapentin 100 mg Capsule 200 mg PO HS Qty: 60 RF: 0 Continued nortriptyline [Pamelor] 25 mg capsule 50 mg PO HS RF: 0 levothyroxine [Synthroid] 50 mcg tablet 50 mcg PO DAILYBB RF: 0 omeprazole 20 mg capsule,delayed release(DR/EC) 40 mg PO HS RF: 0 duloxetine [Cymbalta] 60 mg capsule,delayed release(DR/EC) 60 mg PO QAM RF: 0 solifenacin [Vesicare] 10 mg tablet 10 mg PO HS RF: 0 atorvastatin 20 mg Tablet 20 mg PO DAILY RF: 0 sumatriptan succinate 100 mg Tablet 100 mg PO DIRECTED PRN (Reason: Migraine Headache) RF: 0 cholecalciferol (vitamin D3) [D3-50 Cholecalciferol] 50,000 unit capsule 50,000 unit PO WK RF: 0 loratadine [Claritin] 10 mg Tablet 10 mg PO HS RF: 0 magnesium oxide 400 mg magnesium Tablet 400 mg PO QAM RF: 0 clozapine [Clozaril] 100 mg tablet 300 mg PO HS Qty: 30 RF: 0 lisinopril 10 mg tablet 10 mg PO HS RF: 0 gabapentin 100 mg capsule See Rx Instructions .ROUTE .COMPLEX RF: 0 clozapine 25 mg tablet 50 mg PO QAM RF: 0 sennosides-docusate sodium [Senna Plus] 8.6-50 mg tablet 1 - 2 tab PO DAILY RF: 0 riboflavin (vitamin B2) 400 mg tablet 400 mg PO DAILY RF: 0 metformin 500 mg tablet 500 mg PO QAM RF: 0 Discontinued metoprolol succinate 25 mg tablet extended release 24 hr 25 mg PO DAILY RF: 0 Discharge Orders: Discharge Order (Routine); Ordered 02/27/21 Ordered By: Maryan Silva Admission Data Admit Date/Time: 02/26/21 13:57 Attending Provider: Maryan Silva Admit Provider: Jesse Mcdonnell Primary Care Provider: Raymond Vann Other Providers: [facility] ; [facility] ; Jesse Mcdonnell
== END 2021-02-27 15:50 | DRG 690 ==
LOC: 2S 14:00 → ED 14:00 → SUATTDRO 22:30 → 2S 02-25 00:45 → 3W 02-26 17:34
DX: G43.909 Migraine, unspecified, not intractable, without status migrainosus; E78.5 Hyperlipidemia, unspecified; I16.9 Hypertensive crisis, unspecified; Z83.3 Family history of diabetes mellitus; Z88.1 Allergy status to other antibiotic agents; Z88.0 Allergy status to penicillin; F41.9 Anxiety disorder, unspecified; R26.2 Difficulty in walking, not elsewhere classified; Z79.899 Other long term (current) drug therapy; Z77.22 Contact with and (suspected) exposure to environmental tobacco smoke (acute) (chronic); Z82.49 Family history of ischemic heart disease and other diseases of the circulatory system; Z51.81 Encounter for therapeutic drug level monitoring; Z79.84 Long term (current) use of oral hypoglycemic drugs; F03.90 Unspecified dementia, unspecified severity, without behavioral disturbance, psychotic disturbance, mood disturbance, and anxiety; Z88.8 Allergy status to other drugs, medicaments and biological substances; E86.0 Dehydration; E03.9 Hypothyroidism, unspecified; K21.9 Gastro-esophageal reflux disease without esophagitis; E11.40 Type 2 diabetes mellitus with diabetic neuropathy, unspecified; F20.0 Paranoid schizophrenia; B96.89 Other specified bacterial agents as the cause of diseases classified elsewhere; R11.0 Nausea; Z20.822 Contact with and (suspected) exposure to COVID-19; Z91.048 Other nonmedicinal substance allergy status; Z79.890 Hormone replacement therapy; N39.0 Urinary tract infection, site not specified; E11.65 Type 2 diabetes mellitus with hyperglycemia; Z82.0 Family history of epilepsy and other diseases of the nervous system; I10 Essential (primary) hypertension

== ENCOUNTER 2022-05-11 20:18 | Inpatient (IN) ==
[2022-05-11 21:04] LABS: Basophils # (auto) 0.05 K/uL (0-0.2); Basophils % (auto) 0.7 %; Eosinophils # (auto) 0.01 K/uL (0-0.50); Eosinophils % (auto) 0.1 %; Hemoglobin 11.2 g/dl (12.0-16.0); Immature Granulocytes # (auto) 0.02 K/uL (0.00-0.02); Immature Granulocytes % (auto) 0.3 %; Lymphocytes # (auto) 2.06 K/uL (1.2-3.4); Mean Corpuscular Hgb Conc 33.9 g/dL (32.0-36.0); Mean Corpuscular Volume 88.5 fL (80.0-100.0); Mean Platelet Volume 10.6 fL (9.4-12.3); Monocytes # (auto) 0.64 K/uL (0.24-0.82); Monocytes % (auto) 9.3 %; Neutrophils # (auto) 4.08 K/uL (1.4-6.5); Neutrophils % (auto) 59.6 %; Platelet Count 173 K/uL (130-400); RDW Coefficient of Variation 13.8 % (11.5-14.5); Red Blood Count 3.73 M/uL (3.93-5.22); White Blood Count 6.86 K/ul (4.8-10.8)
[2022-05-11 21:06] LABS: Appearance Urine Cloudy (Clear); Bacteria Urine Automated 4+ (Negative); Bilirubin Urine Negative (Negative); Blood Urine Trace (Negative); Color Urine Dark Yellow; Epithelial Cell Urine Auto 0-5 /lpf (0-5); Glucose Urine UA Negative (Negative); Ketones Urine Negative (Negative); Leukocyte Esterase Urine 2+ (Negative); Nitrite Urine Positive (Negative); Protein Urine Negative (Negative); Specific Gravity Urine 1.014 (1.000-1.030); Urobilinogen Urine Negative (Negative); WBC Urine Automated >30 /hpf (0-5); pH Urine 6.5 (4.5-7.5)
[2022-05-11 21:17] LABS: Albumin Globulin Ratio 1.6 (0.9-2); BUN Creatinine Ratio 26.5 (10-20); Bilirubin,Total 0.4 mg/dl (0.2-1.0); Calcium 9.2 mg/dl (8.5-10.1); Creatinine Clr Calc Pharmacy 67.3 ml/min; Est GFR (African American) 101.3 ml/min; Est GFR (Non-African American) 87.4 ml/min; Globulin 2.5 gm/dl (2.5-4.0); Total Protein 6.5 gm/dl (6.0-8.3)
[2022-05-11 21:22] LABS: Troponin I High Sensitivity 4.2 pg/ml (0-14)
[2022-05-11] MEDS ORDERED: ERTAPENEM SODIUM 10 ML IV STA (21:37)
[2022-05-11] MEDS: SODIUM CHLORIDE 0.9% 1000ML 1,000 ML IV SCH (22:19)
--- NOTE | 2022-05-11 23:00 | Emergency Department Note ---
History of Present Illness General Chief complaint: Weakness Stated complaint: GENERALIZED WEAKNESS Time Seen by Provider: 05/11/22 20:55 Source: patient Mode of arrival: EMS Limitations: altered mental status History of Present Illness Provider complaint: Generalized weakness This is a 71-year-old male brought in by EMS due to generalized weakness. Patient complained of feeling dizzy today also. She denies fevers or chills or recent illness. She denies any nausea, vomiting, diarrhea. She denies chest pain, palpitations, shortness of breath. She states she has not had a normal appetite. She denies any leg swelling. She states she has previously had intermittent vertigo. She denies any recent trauma or change in activity. Home Medications Medication Instructions Recorded Confirmed Type duloxetine 60 mg capsule,delayed 60 mg PO QAM 04/14/18 05/12/22 History release (Cymbalta) levothyroxine 50 mcg tablet 50 mcg PO DAILYBB 04/14/18 05/12/22 History (Synthroid) nortriptyline 25 mg capsule 50 mg PO HS 04/14/18 05/12/22 History (Pamelor) omeprazole 20 mg capsule,delayed 40 mg PO HS 04/14/18 05/12/22 History release loratadine 10 mg tablet (Claritin) 10 mg PO HS 03/25/19 05/12/22 History magnesium oxide 400 mg PO QAM 03/25/19 05/12/22 History atorvastatin 20 mg tablet 20 mg PO PM 11/22/19 05/12/22 History sumatriptan succinate 100 mg tablet 100 mg PO DIRECTED PRN Migraine 11/22/19 05/11/22 History Headache gabapentin 100 mg capsule See Rx Instructions .Route .COMPLEX 10/16/20 05/12/22 History clozapine 25 mg tablet 50 mg PO QAM 11/06/20 05/12/22 History metformin 500 mg tablet 500 mg PO QAM 02/24/21 05/12/22 History riboflavin (vitamin B2) 400 mg 400 mg PO QAM 02/24/21 05/12/22 History tablet clozapine 100 mg tablet 300 mg PO HS #30 tabs 04/15/21 05/12/22 Rx metoprolol succinate 50 mg 50 mg PO QAM 04/15/21 05/12/22 History tablet,extended release 24 hr cyanocobalamin (vitamin B-12) 1,000 mcg PO DAILY 05/17/21 05/12/22 History 1,000 mcg tablet (Vitamin B-12) iron,carbonyl 65 mg-vitamin C 125 1 tab PO DAILY 05/17/21 05/12/22 History mg tablet,delayed release (Vitron-C) psyllium 1 tbsp PO TID PRN Constipation 05/17/21 05/12/22 History fluticasone propionate 50 2 spray intranasal DAILY 07/13/21 05/12/22 History mcg/actuation nasal spray,suspension (Flonase Allergy Relief) loperamide 2 mg capsule 2 mg PO QID PRN Diarrhea 07/13/21 05/12/22 History meclizine 25 mg tablet 25 mg PO .Q5HRS PRN DIZZY 07/13/21 05/12/22 History ondansetron 4 mg disintegrating 4 mg PO Q8H PRN Nausea 07/13/21 05/11/22 History tablet cholecalciferol (vitamin D3) 1,250 1,250 mcg PO WK 05/11/22 05/12/22 History mcg (50,000 unit) capsule aspirin 81 mg chewable tablet 81 mg PO DAILY 05/12/22 05/12/22 History (Aspirin Childrens) Allergies Allergy/AdvReac Type Severity Reaction Status Date / Time Cephalosporins Allergy Intermediate Hallucinati Verified 05/12/22 00:28 ons Penicillins Allergy Intermediate Hives Verified 05/12/22 00:28 pollen extracts Allergy Intermediate seasonal Verified 05/12/22 00:28 allergy rizatriptan [From Maxalt] Allergy Unknown Unknown Verified 05/12/22 00:28 cyclobenzaprine AdvReac Intermediate neuro Verified 05/12/22 00:28 [From Flexeril] complications Past Med/Surg History Medical History (Updated 05/14/22 @ 09:26 by Fariba Coppola DO) Anxiety Dehydration Dizziness DM2 (diabetes mellitus, type 2) GERD (gastroesophageal reflux disease) Well controlled with medication Headache HLD (hyperlipidemia) Hypertension Hypothyroidism Migraine Nausea Neuropathy Schizophrenia Somatization disorder Vertigo Surgical History H/O bilateral cataract extraction H/O brain surgery "abt 1970 R parietal exploration for benign lesion" H/O cystoscopy H/O foot surgery History of cataract surgery History of colonoscopy History of craniotomy 1969, IN [place] D/T HEADACHE---FOLLOWS W DR. MICHAEL History of tonsillectomy History of tooth extraction WISDOM TEETH S/P foot surgery, left X2 S/P foot surgery, right X2 Family History Grandmother Family history of diabetes mellitus PATERNAL Family/Other Family history of diabetes mellitus UNCLE Father Parkinson disease Mother CHF (congestive heart failure) Social History Smoking Status: Never smoker Second Hand Exposure: Yes (FATHER SMOKED); Hx Alcohol Use: No Hx Substance Use: No Preferred Language: Bolivian Communication Ability: Effective Desk Director Required: No Beliefs That Will Affect Care: Pentecostalism Pentecostalism Beliefs: SCIENTOLOGY marital status: Single Current Living Situation: Alone Current Living Situation Comment: 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 How many Children do You have: 0 Feels Safe at Home: Yes Safety Concerns: Feels Safe At This Time Assistive Devices: Walker Assistive Devices Comment: jazmyn lema Review of Systems A total of 10 systems reviewed and were otherwise negative All systems reviewed & are unremarkable except as noted in HPI & below Physical Exam Vital Signs Vital Signs - 24 hr 05/11/22 20:26 05/11/22 21:05 05/11/22 21:30 Temperature 36.6 C Temperature Source Oral Pulse Rate 60 61 Pulse Rate [Finger] Pulse Rate from SpO2 Sensor 60 Pulse Rhythm [Finger] Pulse Strength [Finger] Respiratory Rate 18 19 15 Respiratory Effort / Characteristics Non-Labored Spontaneous Respiratory Depth Normal Respiratory Pattern Blood Pressure 155/87 H 168/84 H Blood Pressure [Right Arm] Blood Pressure Mean 109 112 Blood Pressure Mean [Right Arm] Pulse Oximetry 99 97 Oxygen Delivery Method Sepsis Recent Fever Within 48 Hours No Sepsis New/Unexplained Change in Mental Status No Sepsis Action Taken by Nursing No Action Required 05/11/22 22:12 05/11/22 22:13 05/11/22 22:30 Temperature Temperature Source Pulse Rate 59 L 58 L Pulse Rate [Finger] Pulse Rate from SpO2 Sensor 59 L 59 L Pulse Rhythm [Finger] Pulse Strength [Finger] Respiratory Rate 14 14 Respiratory Effort / Characteristics Respiratory Depth Respiratory Pattern Blood Pressure 171/81 H 155/90 H Blood Pressure [Right Arm] Blood Pressure Mean 111 111 Blood Pressure Mean [Right Arm] Pulse Oximetry 99 99 Oxygen Delivery Method Sepsis Recent Fever Within 48 Hours Sepsis New/Unexplained Change in Mental Status Sepsis Action Taken by Nursing 05/11/22 23:06 05/11/22 23:06 Temperature Temperature Source Pulse Rate Pulse Rate [Finger] 56 L Pulse Rate from SpO2 Sensor Pulse Rhythm [Finger] Regular Pulse Strength [Finger] Normal Respiratory Rate 20 Respiratory Effort / Characteristics Non-Labored Spontaneous Respiratory Depth Normal Respiratory Pattern Regular Blood Pressure Blood Pressure [Right Arm] 170/74 H Blood Pressure Mean Blood Pressure Mean [Right Arm] 106 Pulse Oximetry 98 Oxygen Delivery Method Room Air Room Air Sepsis Recent Fever Within 48 Hours Sepsis New/Unexplained Change in Mental Status Sepsis Action Taken by Nursing GENERAL: alert, well appearing, well nourished, no distress, non-toxic EYE EXAM: normal conjunctiva, PERRL and EOM's grossly intact, no nystagmus OROPHARYNX: no exudate, no erythema, lips, buccal mucosa, and tongue normal and mucous membranes are moist NECK: supple, no nuchal rigidity, no adenopathy, non-tender LUNGS: Clear to auscultation. Normal chest wall mechanics, no w/r/r HEART: no murmurs, S1 normal and S2 normal ABDOMEN: abdomen soft, non-tender, normo-active bowel sounds, no masses, no rebound or guarding. BACK: Back is symmetrical on inspection and there is no deformity, no midline tenderness, no CVA tenderness. SKIN: no rashes and no bruising UPPER EXTREMITIES: upper extremities are grossly normal. FROM, nml pulses b/l. LOWER EXTREMITIES: No pitting edema. FROM, nml pulses b/l. NEURO EXAM: Normal sensorium, cranial nerves II-XII grossly intact, normal speech, no gross weakness of arms, no gross weakness of legs. Gross sensation intact. Course Administered Medications Acetaminophen (Acetaminophen 325 Mg Tab) 650 mg PO Q4H PRN PRN Reason: pain/fever Stop: 06/11/22 02:59 Last Admin: 05/13/22 20:56 Dose: 650 mg Documented By: Admin: 05/13/22 11:54 Dose: 650 mg Documented By: Admin: 05/12/22 20:10 Dose: 650 mg Documented By: Admin: 05/12/22 07:42 Dose: 650 mg Documented By: CODIE Ascorbic Acid (Ascorbic Acid 500 Mg Tab) 250 mg PO QAM JAMEL Stop: 06/11/22 08:59 Last Admin: 05/13/22 09:58 Dose: 250 mg Documented By: Admin: 05/12/22 08:26 Dose: 250 mg Documented By: CODIE Aspirin (Aspirin 81 Mg Ectab) 81 mg PO DAILY JAMEL Stop: 06/11/22 08:59 Last Admin: 05/13/22 09:57 Dose: 81 mg Documented By: Admin: 05/12/22 08:25 Dose: 81 mg Documented By: CODIE Atorvastatin Calcium (Atorvastatin 20 Mg Tab) 20 mg PO PM JAMEL Stop: 06/11/22 20:59 Last Admin: 05/13/22 20:57 Dose: 20 mg Documented By: Admin: 05/12/22 20:12 Dose: 20 mg Documented By: MICHAEL Clozapine (Clozapine 100 Mg Tab) 300 mg PO HS JAMEL Stop: 06/11/22 20:59 Last Admin: 05/13/22 20:58 Dose: 300 mg Documented By: Admin: 05/12/22 20:12 Dose: 300 mg Documented By: MICHAEL Clozapine (Clozapine 25 Mg Tab) 50 mg PO QAM JAMEL Stop: 06/11/22 08:59 Last Admin: 05/13/22 09:57 Dose: 50 mg Documented By: Admin: 05/12/22 08:25 Dose: 50 mg Documented By: CODIE Cyanocobalamin (Cyanocobalamin (B-12) 500 Mcg Tablet) 1,000 mcg PO DAILY JAMEL Stop: 06/11/22 08:59 Last Admin: 05/13/22 09:57 Dose: 1,000 mcg Documented By: Admin: 05/12/22 08:25 Dose: 1,000 mcg Documented By: CODIE Duloxetine HCl (Duloxetine Hcl 60 Mg Cap) 60 mg PO QAM JAMEL Stop: 06/11/22 08:59 Last Admin: 05/13/22 09:57 Dose: 60 mg Documented By: Admin: 05/12/22 08:26 Dose: 60 mg Documented By: CODIE Ferrous Sulfate (Ferrous Sulfate 325 Mg Tab) 325 mg PO DAILY JAMEL Stop: 06/11/22 08:59 Last Admin: 05/13/22 09:57 Dose: 325 mg Documented By: Admin: 05/12/22 08:25 Dose: 325 mg Documented By: CODIE Fluticasone Propionate (Fluticasone Propionate Na Spr 16 Gm Btl) 2 sprays NA DAILY JAMEL Stop: 06/11/22 08:59 Last Admin: 05/13/22 09:58 Dose: 2 sprays Documented By: Admin: 05/12/22 08:27 Dose: 2 sprays Documented By: CODIE Gabapentin (Gabapentin 100 Mg Cap) 100 mg PO DAILY@0900,1400 JAMEL Stop: 06/11/22 08:59 Last Admin: 05/13/22 13:02 Dose: 100 mg Documented By: Admin: 05/13/22 09:57 Dose: 100 mg Documented By: Admin: 05/12/22 14:33 Dose: 100 mg Documented By: Admin: 05/12/22 08:25 Dose: 100 mg Documented By: CODIE Gabapentin (Gabapentin 100 Mg Cap) 200 mg PO HS JAMEL Stop: 06/11/22 20:59 Last Admin: 05/13/22 20:58 Dose: 200 mg Documented By: Admin: 05/12/22 20:15 Dose: 200 mg Documented By: MICHAEL Heparin Sodium (Porcine) (Heparin Sod 5,000 Unit/0.5 Ml Vial) 5,000 units SQ Q8 JAMEL Stop: 06/11/22 05:59 Last Admin: 05/14/22 05:45 Dose: 5,000 units Documented By: Admin: 05/13/22 21:37 Dose: 5,000 units Documented By: Admin: 05/13/22 13:04 Dose: 5,000 units Documented By: Admin: 05/13/22 06:00 Dose: 5,000 units Documented By: Admin: 05/12/22 22:28 Dose: 5,000 units Documented By: Admin: 05/12/22 14:32 Dose: 5,000 units Documented By: Admin: 05/12/22 05:22 Dose: 5,000 units Documented By: HODAN Ertapenem 1,000 mg/ Syringe 10 mls @ 2 mls/min IV Q24H JAMEL Stop: 05/22/22 21:59 Last Admin: 05/13/22 21:38 Dose: 2 mls/min Documented By: Admin: 05/12/22 22:28 Dose: 2 mls/min Documented By: MICHAEL Insulin Aspart (Insulin Aspart Per Unit) 0 units SC ACHS JAMEL Stop: 06/11/22 07:29 Last Admin: 05/13/22 21:00 Dose: Not Given Documented By: LUCI Co-signed By: OPAL Admin: 05/13/22 18:21 Dose: 2 units Documented By: CODIE Co-signed By: MIGUEL Admin: 05/13/22 12:59 Dose: 1 units Documented By: CODIE Co-signed By: [id number] Admin: 05/13/22 09:58 Dose: 2 units Documented By: CODIE Co-signed By: SHYANN Admin: 05/12/22 20:18 Dose: Not Given Documented By: Admin: 05/12/22 18:09 Dose: 1 units Documented By: CODIE Co-signed By: DANIEL Admin: 05/12/22 12:36 Dose: 3 units Documented By: CODIE Co-signed By: DANIEL Admin: 05/12/22 08:55 Dose: 2 units Documented By: CODIE Co-signed By: DANIEL Levothyroxine Sodium (Levothyroxine Sodium 50 Mcg Tablet) 50 mcg PO DAILYBB [facility] Stop: 06/11/22 06:29 Last Admin: 05/14/22 05:45 Dose: 50 mcg Documented By: Admin: 05/13/22 06:00 Dose: 50 mcg Documented By: Admin: 05/12/22 05:22 Dose: 50 mcg Documented By: HODAN Loratadine (Loratadine 10 Mg Tab) 10 mg PO HS JAMEL Stop: 06/11/22 20:59 Last Admin: 05/13/22 20:59 Dose: 10 mg Documented By: Admin: 05/12/22 20:14 Dose: 10 mg Documented By: MICHAEL Magnesium Oxide (Magnesium Oxide 400 Mg Tab) 400 mg PO QAM JAMEL Stop: 06/11/22 08:59 Last Admin: 05/13/22 09:57 Dose: 400 mg Documented By: Admin: 05/12/22 08:26 Dose: 400 mg Documented By: CODIE Meclizine HCl (Meclizine Hcl 25 Mg Tab) 25 mg PO Q5H PRN PRN Reason: DIZZY Stop: 06/11/22 02:59 Last Admin: 05/13/22 10:52 Dose: 25 mg Documented By: CODIE Metoprolol Succinate (Metoprolol Succ 50mg Ext Rel Tab) 50 mg PO QAM JAMEL Stop: 06/11/22 08:59 Last Admin: 05/13/22 09:57 Dose: 50 mg Documented By: Admin: 05/12/22 07:42 Dose: 50 mg Documented By: CODIE Nortriptyline HCl (Nortriptyline Hcl 25 Mg Cap) 50 mg PO HS JAMEL Stop: 06/11/22 20:59 Last Admin: 05/13/22 20:59 Dose: 50 mg Documented By: Admin: 05/12/22 20:11 Dose: 50 mg Documented By: MICHAEL Ondansetron HCl (Ondansetron 4 Mg Od Tab) 4 mg PO Q8H PRN PRN Reason: Nausea Stop: 06/11/22 02:59 Last Admin: 05/13/22 10:51 Dose: 4 mg Documented By: CODIE Pantoprazole Sodium (Pantoprazole 40 Mg Tab) 40 mg PO HS [facility] Stop: 06/11/22 20:59 Last Admin: 05/13/22 20:58 Dose: 40 mg Documented By: Admin: 05/12/22 20:15 Dose: 40 mg Documented By: MICHAEL Sumatriptan Succinate (Sumatriptan Succinate 100 Mg Tab) 100 mg PO DAILY PRN PRN Reason: Migraine Headache Stop: 06/11/22 02:59 Last Admin: 05/12/22 16:21 Dose: 100 mg Documented By: CODIE Discontinued Medications Sodium Chloride (Nss 1000ml) 1,000 mls @ 250 mls/hr IV .Q4H JAMEL Stop: 06/10/22 21:44 Last Admin: 05/12/22 03:03 Dose: Not Given Documented By: Infusion: 05/12/22 03:03 Dose: 0 mls/hr Documented By: Admin: 05/11/22 22:19 Dose: 250 mls/hr Documented By: CLEMENTINE Ertapenem (Invanz) 10 mls @ 2 mls/min IV NOW STA Stop: 05/11/22 21:41 Last Admin: 05/11/22 22:19 Dose: 2 mls/min Documented By: CLEMENTINE Sodium Chloride (Nss 1000ml) 1,000 mls @ 80 mls/hr IV .[id number] JAMEL Stop: 05/12/22 15:29 Last Infusion: 05/12/22 16:21 Dose: 0 mls/hr Documented By: Infusion: 05/12/22 14:41 Dose: 80 mls/hr Documented By: Admin: 05/12/22 03:26 Dose: 80 mls/hr Documented By: HODAN Lisinopril (Lisinopril 2.5 Mg Tab) 2.5 mg PO QAM JAMEL Stop: 06/12/22 13:14 Last Admin: 05/13/22 16:25 Dose: 2.5 mg Documented By: CODIE Medical Decision Making Differential Diagnosis Differential Diagnosis includes but is not limited to dehydration, stroke, anemia, hypoglycemia, hyponatremia, hypernatremia, urinary tract infection, pneu monia, bronchitis, sepsis, gastroenteritis, additional abdominal pathology, metabolic abnormalities and infections. Medical Records Attestation: I reviewed the patient's medical records. Home Medications Current Medication List: was personally reviewed by me Laboratory Data Attestation: I reviewed the patient's lab results. Result diagrams: 05/14/22 06:56 05/14/22 06:56 Lab Results 05/11/22 05/11/22 05/11/22 Range/Units 20:29 20:29 20:29 WBC 6.86 (4.8-10.8) K/ul RBC 3.73 L (3.93-5.22) M/uL Hgb 11.2 L (12.0-16.0) g/dl Hct 33.0 L (34.1-44.9) % MCV 88.5 (80.0-100.0) fL MCH 30.0 (25.0-34.0) pg MCHC 33.9 (32.0-36.0) g/dL RDW Std Deviation 45.0 (36.4-46.3) fL RDW Coeff of Cyn 13.8 (11.5-14.5) % Plt Count 173 (130-400) K/uL MPV 10.6 (9.4-12.3) fL Immature Gran % (Auto) 0.3 % Neut % (Auto) 59.6 % Lymph % (Auto) 30.0 % Terry % (Auto) 9.3 % Eos % (Auto) 0.1 % Baso % (Auto) 0.7 % Neut # (Auto) 4.08 (1.4-6.5) K/uL Lymph # (Auto) 2.06 (1.2-3.4) K/uL Terry # (Auto) 0.64 (0.24-0.82) K/uL Eos # (Auto) 0.01 (0-0.50) K/uL Baso # (Auto) 0.05 (0-0.2) K/uL Immature Gran # (Auto) 0.02 (0.00-0.02) K/uL Sodium 132 L (136-145) mmol/L Potassium 4.0 (3.5-5.1) mmol/L Chloride 97 L (98-107) mmol/L Carbon Dioxide 27 (21-32) mmol/L Anion Gap 8 (3-11) BUN 18 (6-23) mg/dl Creatinine 0.68 (0.6-1.2) mg/dl Est Cr Clr Drug Dosing 67.3 ml/min Est GFR ( Amer) 101.3 ml/min Est GFR (Non-Af Amer) 87.4 ml/min BUN/Creatinine Ratio 26.5 H (10-20) Glucose 94 (70-99(Fasting)) mg/dl Calcium 9.2 (8.5-10.1) mg/dl Total Bilirubin 0.4 (0.2-1.0) mg/dl AST 14 (13-39) U/L ALT 12 (7-52) U/L Alkaline Phosphatase 67 (34-104) U/L Troponin I High Sens 4.2 (0-14) pg/ml Total Protein 6.5 (6.0-8.3) gm/dl Albumin 4.0 (3.4-5.0) gm/dl Globulin 2.5 (2.5-4.0) gm/dl Albumin/Globulin Ratio 1.6 (0.9-2) TSH 2.479 (0.300-4.500) uIu/ml Urine Color Urine Appearance (Clear) Urine pH (4.5-7.5) Ur Specific [place] (1.000-1.030) Urine Protein (Negative) Urine Glucose (UA) (Negative) Urine Ketones (Negative) Urine Blood (Negative) Urine Nitrite (Negative) Urine Bilirubin (Negative) Urine Urobilinogen (Negative) Ur Leukocyte Esterase (Negative) Urine WBC (Auto) (0-5) /hpf Urine RBC (Auto) (0-4) /hpf U Hyaline Cast (Auto) (0-5) /lpf U Epithel Cells (Auto) (0-5) /lpf Urine Bacteria (Auto) (Negative) SARS-CoV-2, RNA, NAAT (NEGATIVE) 05/11/22 05/11/22 Range/Units 20:39 23:42 WBC (4.8-10.8) K/ul RBC (3.93-5.22) M/uL Hgb (12.0-16.0) g/dl Hct (34.1-44.9) % MCV (80.0-100.0) fL MCH (25.0-34.0) pg MCHC (32.0-36.0) g/dL RDW Std Deviation (36.4-46.3) fL RDW Coeff of Cyn (11.5-14.5) % Plt Count (130-400) K/uL MPV (9.4-12.3) fL Immature Gran % (Auto) % Neut % (Auto) % Lymph % (Auto) % Terry % (Auto) % Eos % (Auto) % Baso % (Auto) % Neut # (Auto) (1.4-6.5) K/uL Lymph # (Auto) (1.2-3.4) K/uL Terry # (Auto) (0.24-0.82) K/uL Eos # (Auto) (0-0.50) K/uL Baso # (Auto) (0-0.2) K/uL Immature Gran # (Auto) (0.00-0.02) K/uL Sodium (136-145) mmol/L Potassium (3.5-5.1) mmol/L Chloride (98-107) mmol/L Carbon Dioxide (21-32) mmol/L Anion Gap (3-11) BUN (6-23) mg/dl Creatinine (0.6-1.2) mg/dl Est Cr Clr Drug Dosing ml/min Est GFR ( Amer) ml/min Est GFR (Non-Af Amer) ml/min BUN/Creatinine Ratio (10-20) Glucose (70-99(Fasting)) mg/dl Calcium (8.5-10.1) mg/dl Total Bilirubin (0.2-1.0) mg/dl AST (13-39) U/L ALT (7-52) U/L Alkaline Phosphatase (34-104) U/L Troponin I High Sens (0-14) pg/ml Total Protein (6.0-8.3) gm/dl Albumin (3.4-5.0) gm/dl Globulin (2.5-4.0) gm/dl Albumin/Globulin Ratio (0.9-2) TSH (0.300-4.500) uIu/ml Urine Color Dark Yellow Urine Appearance Cloudy A (Clear) Urine pH 6.5 (4.5-7.5) Ur Specific [place] 1.014 (1.000-1.030) Urine Protein Negative (Negative) Urine Glucose (UA) Negative (Negative) Urine Ketones Negative (Negative) Urine Blood Trace H (Negative) Urine Nitrite Positive A (Negative) Urine Bilirubin Negative (Negative) Urine Urobilinogen Negative (Negative) Ur Leukocyte Esterase 2+ H (Negative) Urine WBC (Auto) >30 H (0-5) /hpf Urine RBC (Auto) 5-10 H (0-4) /hpf U Hyaline Cast (Auto) 1-5 (0-5) /lpf U Epithel Cells (Auto) 0-5 (0-5) /lpf Urine Bacteria (Auto) 4+ H (Negative) SARS-CoV-2, RNA, NAAT NEGATIVE (NEGATIVE) Imaging Data Radiologist's Impression: CT OF THE HEAD WITHOUT CONTRAST CLINICAL HISTORY: Altered mental status. Dizziness. COMPARISON STUDY: Head CT May 17, 2021. CT DOSE: 691.05 mGy.cm TECHNIQUE: Helical axial images of the head were obtained without IV contrast. Automated exposure control was utilized for the study. A dose lowering technique was utilized adhering to the principles of ALARA. FINDINGS: No acute intracranial hemorrhage, midline shift or mass effect is present. The ventricular system is unremarkable. The basal cisterns are patent. No extra-axial collections are present. There are no findings to suggest acute dural sinus thrombosis or acute territorial infarct. Thinning/postoperative change of the right parietal bone is unchanged. Visualized portions of the sinuses and mastoid air cells are clear. IMPRESSION: No acute intracranial findings. No change in appearance of the brain. ACT 112: Negative or not required by law. Electronically signed by: Lukas Law M.D. 05/12/2022 7:39 AM ECG Data Attestation: I personally reviewed and interpreted this ECG as follows: Indication: + weakness Rate (beats per minute): 59 Rhythm: + sinus bradycardia ECG Intervals/blocks: + Normal QRS and + Normal QT ECG [place]: + Normal ECG ST segments: + Nonspecific ST abnormalities MDM Narrative An order was placed for continuous cardiac monitoring. The monitor shows a rate of _62__ with _normal sinus_ rhythm. This is a 71-year-old female presents due to concern for increased weakness and dizziness. Patient had no other focal complaints. She had a normal and nonfocal neuro exam at bedside. She was hemodynamically stable although mildly hypertensive. Patient found to have urinary tract infection which I suspect is the etiology of her symptoms. No evidence of LAURI. Given no other complaints of accompanying pain I do not suspect other obstructive uropathy, ascending UTI or pyelonephritis. No significant leukocytosis. Mild hyponatremia was noted. Patient started on IV antibiotics after review of EMR for prior urine cultures. Given other generalized symptoms, case discussed with hospitalist for additional evaluation and management. Impression & Plan Dizziness, Generalized weakness, Acute UTI (urinary tract infection), Hyponatremia Discharge Plan Visit Data Chief Complaint: Weakness Stated Complaint: GENERALIZED WEAKNESS ED Provider: Fariba Coppola Discharge Problem: Dizziness, Generalized weakness, Acute UTI (urinary tract infection), Hyponatremia Patient Disposition: Admitted As Inpatient Discharge Instructions Interventions: ED Discharge Assessment Last Done: 05/12/22 01:47
[2022-05-12] MEDS ORDERED: SODIUM CHLORIDE 0.9% 1000ML 1,000 ML IV SCH (03:00)
[2022-05-12] MEDS ORDERED: POLYETHYLENE (MIRALAX) 17 GM PACK PO PRN (03:00)
[2022-05-12] MEDS: SODIUM CHLORIDE 0.9% 1000ML 1,000 ML IV SCH (03:03)
[2022-05-12] MEDS ORDERED: CARBOHYDRATES FOR HYPOGLYCEMIA PO PRN (03:30)
[2022-05-12] MEDS ORDERED: GLUCAGON FOR INJ 1 MG VIAL IM PRN (03:30)
[2022-05-12] MEDS ORDERED: DEXTROSE 50% 50 ML SYRINGE IV PRN (03:30)
[2022-05-12] MEDS ORDERED: GLUCOSE 10 TAB/TUBE PO PRN (03:30)
[2022-05-12] MEDS ORDERED: GLUCOSE 40% GEL 15 GM TUBE PO PRN (03:30)
--- NOTE | 2022-05-12 05:06 | History and Physical Report ---
DATE OF ADMISSION: 05/12/2022. CHIEF COMPLAINT: Weakness and dizziness. HISTORY OF PRESENT ILLNESS: This is a 71-year-old female with past medical history significant for type 2 diabetes, diabetic polyneuropathy, hypothyroidism, hyperlipidemia, allergic rhinitis, hypertension, GERD, slow transit constipation, urinary incontinence, carpal tunnel syndrome, migraine variant, schizophrenia chronic condition, somatization disorder, anxiety state. The patient says she lives alone, ambulates with a walker. She has a caregiver who comes 4 hours a day. Since yesterday, she was feeling weak and somewhat dizzy, so she came to the hospital and found to have UTI. While resting in the bed, there is no dizziness. Denies any other complaints. Denies any fever or chills. No chest pain, no shortness of breath, no headache, no back pain, no abdominal pain, no nausea, no vomiting. Normal bowel and bladder movements. No swelling in the legs. No cough, no fevers. Appetite is okay. No difficulty swallowing. No blurred visions, no earache, no runny nose. Currently, resting comfortably and hemodynamically stable. ALLERGIES: CEPHALOSPORINS, PENICILLINS, POLLEN EXTRACTS, MAXALT, CYCLOBENZAPRINE. PAST MEDICAL HISTORY: As mentioned above. PAST SURGICAL HISTORY: Bunion correction, cystoscopy, EGD, foot surgery, hysteroscopy with biopsy, exploratory brain surgery in 1969, right parietal exploration for benign lesion in 1969, bilateral cataract surgery, upper endoscopy. MEDICATIONS: The patient is on aspirin 81 mg p.o. daily, atorvastatin 20 mg p.o. p.m., vitamin D 1250 mcg p.o. weekly, clozapine 50 mg p.o. a.m. and 300 mg p.o. at bedtime, vitamin B12 1000 mcg p.o. daily, Cymbalta 60 mg p.o. a.m., Flonase 2 sprays intranasal daily, gabapentin 100 mg in the morning and 100 mg at 2:00 p.m. and 200 mg at bedtime, Vitron-C one tablet daily, levothyroxine 50 mcg p.o. daily, Imodium 2 mg p.o. q.i.d. p.r.n., Claritin 10 mg p.o. at bedtime, magnesium oxide 400 mg p.o. a.m., meclizine 25 mg p.r.n., metformin 500 mg p.o. a.m., metoprolol succinate 50 mg p.o. a.m., nortriptyline 50 mg p.o. at bedtime, omeprazole 40 mg p.o. at bedtime, Zofran 4 mg p.o. q. 8 hours p.r.n., Metamucil 1 tablespoon p.o. t.i.d. p.r.n., riboflavin 400 mg p.o. a.m., sumatriptan 100 mg p.r.n. FAMILY HISTORY: Significant for maternal cousin has breast cancer; maternal grandmother has breast cancer and multiple myeloma; paternal grandmother has diabetes; sister has chronic fatigue syndrome; mother has heart disorder; father has Parkinson's. SOCIAL HISTORY: Single, no smoking, no alcohol, no drug use. REVIEW OF SYSTEMS: As per HPI. Rest of review of systems is negative. PHYSICAL EXAMINATION: GENERAL: The patient is of moderate build, not in acute distress. VITAL SIGNS: Temperature 36.6, pulse 59, respiratory rate 18, blood pressure 179/87, oxygen 100% on room air. HEENT: Pupils equal, round, and reactive to light. Oral mucosa moist. NECK: No JVD, no neck masses. CARDIOVASCULAR: S1 and S2 heard. Regular rate and rhythm. No murmur, no gallop. RESPIRATORY SYSTEM: Normal AP diameter. No accessory muscle use. No wheezing, no crackles. ABDOMEN: Soft, bowel sounds present, nontender, no distention. CENTRAL NERVOUS SYSTEM: Cranial nerves II through XII are grossly intact, nonfocal. EXTREMITIES: No edema, no erythema. LABORATORY DATA: WBC 6.8, hemoglobin 11.2, hematocrit 33, platelets 173. Sodium 132, potassium 4, chloride 97, bicarbonate 27, BUN 18, creatinine 0.68, serum glucose 94, calcium 9.2, total bilirubin 0.4, AST 14, ALT 12, alkaline phosphatase 67. Troponin I high sensitivity 4.2. TSH is 2.4. Urinalysis positive for nitrite, +2 leukocyte esterase, +4 bacteria. SARS-CoV-2 rapid test negative. IMAGING DATA: CT of the head, preliminary report, no acute intracranial pathology. Mild nonspecific white matter changes status post right posterior parietal craniotomy. EKG: Sinus bradycardia at a rate of 59, no acute ST changes seen. ASSESSMENT AND PLAN: This is a 71-year-old female who presents with dizziness and weakness. 1. Weakness and dizziness, possibly secondary to urinary tract infection: ER started on Invanz because of allergic to penicillins and cephalosporins. Will continue the Invanz. Follow the culture. Gentle fluids for 1 liter and closely monitor in the medical floor. PT, OT when stable. 2. History of hyperlipidemia: Continue statin. 3. History of schizophrenia Chronic condition, somatization disorder, anxiety state. Continue her home medications. 4. Hypothyroidism. Continue Synthroid. 5. Diabetes: Hold metformin. Placed on insulin sliding scale. Follow the blood sugars, follow HbA1c levels. 6. History of hypertension: Continue metoprolol succinate. Monitor the blood pressure. 7. Migraine: On sumatriptan p.r.n. and riboflavin. 8. Gastroesophageal reflux disease: On omeprazole. 9. Slow transit constipation: On Metamucil. 10. Deep venous thrombosis prophylaxis: Heparin subcutaneously. DISPOSITION: Monitor in the medical floor. PT, OT prior to discharge. Social service to help with discharge planning. Level 1 full code as per my discussion with the patient. Job ID: [id number] MTDD
[2022-05-12] MEDS: HEPARIN SOD 5,000 UNIT/0.5 ML VIAL SQ SCH ×3 (05:22→22:28)
[2022-05-12] MEDS: LEVOTHYROXINE SODIUM 50 MCG TABLET PO SCH (05:22)
--- NOTE | 2022-05-12 07:40 | CT Scan Report ---
CT OF THE HEAD WITHOUT CONTRAST CLINICAL HISTORY: Altered mental status. Dizziness. COMPARISON STUDY: Head CT May 17, 2021. CT DOSE: 691.05 mGy.cm TECHNIQUE: Helical axial images of the head were obtained without IV contrast. Automated exposure con trol was utilized for the study. A dose lowering technique was utilized adhering to the principles o f ALARA. FINDINGS: No acute intracranial hemorrhage, midline shift or mass effect is present. The ventricular system is unremarkable. The basal cisterns are patent. No extra-axial collections are present. There are no findings to suggest acute dural sinus thrombosis or acute territorial infarct. Thinning/postop erative change of the right parietal bone is unchanged. Visualized portions of the sinuses and mastoi d air cells are clear. IMPRESSION: No acute intracranial findings. No change in appearance of the brain. ACT 112: Negative or not required by law. Electronically signed by: Lukas Law M.D. 05/12/2022 7:39 AM
[2022-05-12] MEDS: METOPROLOL SUCC 50MG EXT REL TAB PO SCH (07:42)
[2022-05-12] MEDS: ACETAMINOPHEN 325 MG TAB PO PRN ×2 (07:42→20:10)
[2022-05-12] MEDS: GABAPENTIN 100 MG CAP PO SCH ×3 (08:25→20:15)
[2022-05-12] MEDS: FERROUS SULFATE 325 MG TAB PO SCH (08:25)
[2022-05-12] MEDS: CYANOCOBALAMIN (B-12) 500 MCG TABLET PO SCH (08:25)
[2022-05-12] MEDS: cloZAPine 25 MG TAB PO SCH (08:25)
[2022-05-12] MEDS: ASPIRIN 81 MG ECTAB PO SCH (08:25)
[2022-05-12] MEDS: ASCORBIC ACID 500 MG TAB PO SCH (08:26)
[2022-05-12] MEDS: DULoxetine HCL 60 MG CAP PO SCH (08:26)
[2022-05-12] MEDS: MAGNESIUM OXIDE 400 MG TAB PO SCH (08:26)
[2022-05-12] MEDS: FLUTICASONE PROPIONATE NA SPR 16 GM BTL SCH (08:27)
[2022-05-12] MEDS: INSULIN ASPART PER UNIT SC SCH ×4 (08:55→20:18)
[2022-05-12] MEDS ORDERED: NON-FORMULARY MEDICATION (Riboflavin (Vitamin B2) 400 mg tablet) PO SCH (09:00)
[2022-05-12 09:22] LABS: Basophils # (auto) 0.06 K/uL (0-0.2); Eosinophils # (auto) 0.02 K/uL (0-0.50); Eosinophils % (auto) 0.3 %; Hematocrit (blood only) 37.3 % (34.1-44.9); Hemoglobin 12.5 g/dl (12.0-16.0); Immature Granulocytes # (auto) 0.02 K/uL (0.00-0.02); Immature Granulocytes % (auto) 0.3 %; Lymphocytes # (auto) 1.58 K/uL (1.2-3.4); Lymphocytes % (auto) 26.6 %; Mean Corpuscular Hemoglobin 29.5 pg (25.0-34.0); Mean Corpuscular Hgb Conc 33.5 g/dL (32.0-36.0); Mean Platelet Volume 10.8 fL (9.4-12.3); Monocytes # (auto) 0.54 K/uL (0.24-0.82); Monocytes % (auto) 9.1 %; Neutrophils # (auto) 3.72 K/uL (1.4-6.5); Neutrophils % (auto) 62.7 %; Platelet Count 193 K/uL (130-400); RDW Coefficient of Variation 13.6 % (11.5-14.5); Red Blood Count 4.24 M/uL (3.93-5.22); White Blood Count 5.94 K/ul (4.8-10.8)
[2022-05-12 10:00] LABS: BUN Creatinine Ratio 21.3 (10-20); Calcium 8.9 mg/dl (8.5-10.1); Est GFR (Non-African American) 90.6 ml/min; Potassium 3.6 mmol/L (3.5-5.1)
[2022-05-12 11:01] LABS: Estimated Average Glucose 131 mg/dl; Hemoglobin A1C 6.2 % (4.5-5.6)
--- NOTE | 2022-05-12 15:23 | Electrocardiogram Report ---
Test Reason : Blood Pressure : / mmHG Vent. Rate : 059 BPM Atrial Rate : 059 BPM P-R Int : 138 ms QRS Dur : 086 ms QT Int : 454 ms P-R-T Axes : 079 023 028 degrees QTc Int : 449 ms Sinus bradycardia Otherwise normal ECG When compared with ECG of 13-JUL-2021 18:41, Criteria for Septal infarct are no longer Present Confirmed by Austin Barry ([id number]) on 05/12/2022 3:22:57 PM Referred By: REFERRED SELF Confirmed By:Austin Barry
--- NOTE | 2022-05-12 15:37 | Communication Note ---
Date of Service: May 12, 2022 This is a 71-year-old female with past medical history significant for type 2 diabetes, diabetic polyneuropathy, hypothyroidism, hyperlipidemia, allergic rhinitis, hypertension, GERD, slow transit constipation, urinary incontinence, carpal tunnel syndrome, migraine variant, schizophrenia chronic condition, somatization disorder, anxiety state who presented with generalized weakness and found to have UTI. Seen and examined in 356-2 after being admitted overnight. Alert and oriented to self and place but not to time. Feels comfortable at rest and main concern is about kitten at home. Denies any F/C, lightheadedness, CP, SOB, N/V, abd pain, diarrhea or constipation Has a headache that RN just gave tylenol for. Increased urgency to urinate Generalized weakness 2/2 possible UTI Continue Invanz (due to multiple allergies). Follow urine culture. Euvolemic after receiving 1 L NSS overnight PT/OT when stable. Fall precautions DM II Hold metformin. Placed on insulin sliding scale. Follow the blood sugars, follow HbA1c levels Schizophrenia Chronic condition, somatization disorder, anxiety state. Continue her home medications. HTN Normotensive. Control metoprolol succinate HLD Continue statin Migraine On sumatriptan p.r.n. and riboflavin DVT Ppx: SQ heparin Code status: FULL PCP: Soo Dispo: Admitted to med/surg Attending Addendum Patient is seen and examined at bedside. Reports headache, dizziness and feels tired. Denies any dysuria, hematuria, chest pain, dyspnea. On exam patient is moderately built and nourished, no apparent distress, normocephalic atraumatic, EOMI, normal breath sounds, clear to auscultation, S1-S2, no murmur, no pedal edema, abdomen soft, nontender, normal bowel sounds, alert, awake, oriented to person and place, grossly no focal deficits. Patient is currently being managed for UTI. Continue current antibiotics. Follow-up cultures. Fall precautions. PT OT prior to discharge. Monitor blood pressure. Adjust medications as needed. I personally reviewed the record. Patient is interviewed and examined at bedside. Patient's care is coordinated with Radha Young PA-C. Please refer to the documentation above for details of patient's presentation and for discussion of other issues.
[2022-05-12] MEDS: SUMAtriptan succinate 100 MG TAB PO PRN (16:21)
[2022-05-12] MEDS: NORTRIPTYLINE HCL 25 MG CAP PO SCH (20:11)
[2022-05-12] MEDS: cloZAPine 100 MG TAB PO SCH (20:12)
[2022-05-12] MEDS: ATORVASTATIN 20 MG TAB PO SCH (20:12)
[2022-05-12] MEDS: LORATADINE 10 MG TAB PO SCH (20:14)
[2022-05-12] MEDS: PANTOprazole 40 MG TAB PO SCH (20:15)
[2022-05-12] MEDS: ERTAPENEM SODIUM 1,000 MG in SYRINGE 0 ML IV SCH (22:28)
[2022-05-13] MEDS: HEPARIN SOD 5,000 UNIT/0.5 ML VIAL SQ SCH ×3 (06:00→21:37)
[2022-05-13] MEDS: LEVOTHYROXINE SODIUM 50 MCG TABLET PO SCH (06:00)
[2022-05-13 06:41] LABS: BUN Creatinine Ratio 21.1 (10-20); Calcium 8.3 mg/dl (8.5-10.1); Creatinine Clr Calc Pharmacy 60.2 ml/min; Est GFR (African American) 90.8 ml/min; Est GFR (Non-African American) 78.4 ml/min; Magnesium 1.9 mg/dl (1.7-2.4); Phosphorus 3.4 mg/dl (2.5-4.9); Potassium 3.7 mmol/L (3.5-5.1)
[2022-05-13 06:42] LABS: Hematocrit (blood only) 36.6 % (34.1-44.9); Hemoglobin 12.4 g/dl (12.0-16.0); Mean Corpuscular Hemoglobin 29.7 pg (25.0-34.0); Mean Corpuscular Hgb Conc 33.9 g/dL (32.0-36.0); Mean Corpuscular Volume 87.8 fL (80.0-100.0); Mean Platelet Volume 11.1 fL (9.4-12.3); Platelet Count 175 K/uL (130-400); RDW Coefficient of Variation 13.9 % (11.5-14.5); RDW Standard Deviation 44.6 fL (36.4-46.3); Red Blood Count 4.17 M/uL (3.93-5.22); White Blood Count 4.53 K/ul (4.8-10.8)
--- NOTE | 2022-05-13 08:17 | Hospitalist Progress Note ---
Date of Service May 13, 2022 Assessment & Plan (1) Generalized weakness: (2) UTI (urinary tract infection): Plan: This is a 71-year-old female who presents with dizziness and weakness. 1. Weakness and dizziness, likely secondary to urinary tract infection: ER started on Invanz because of allergic to penicillins and cephalosporins. Will continue the Invanz. Urine culture - positive for E.coli. (Resist. to cipro, levaquin, ampicilin) Closely monitor in the medical floor. PT, OT when stable. 2. History of hyperlipidemia: Continue statin. 3. History of schizophrenia Chronic condition, somatization disorder, anxiety state. Continue her home medications. 4. Hypothyroidism. Continue Synthroid. 5. Diabetes: Hold metformin. Placed on insulin sliding scale. Current HbA1c 6.2% Follow the blood sugars 6. History of hypertension: Continue metoprolol succinate. BP elevated. Will start lisinopril. Monitor the blood pressure. 7. Migraine: On sumatriptan p.r.n. and riboflavin. 8. Gastroesophageal reflux disease: On omeprazole. 9. Slow transit constipation: On Metamucil. DVT prophylaxis: Heparin subq DISPOSITION:medical floor. PT, OT prior to discharge. Social service to help with discharge planning. CODE: FULL Admission and Anticipated Discharge Date Admission Date: May 12, 2022 Subjective Pt seen in follow up of weakness, UTI Laying in bed in NAD She feels well overall, reports mild nausea She knows she is in the hospital, says it's year 2019. She knows her name and overall can answer simple questions appropriately. Review of Systems Review of Systems: All systems reviewed & are unremarkable except as noted in Subjective Physical Exam Physical Exam: GENERAL: elderly thin F not in acute distress. HEENT: Pupils equal, round, and reactive to light. Oral mucosa moist. NECK: No JVD, no neck masses. CARDIOVASCULAR: S1 and S2 heard. Regular rate and rhythm. No murmur, no gallop. RESPIRATORY: Normal AP diameter. No accessory muscle use. No wheezing, no crackles. ABDOMEN: Soft, bowel sounds present, nontender, no distention. NEURO: Awake and alert EXTREMITIES: No edema, no erythema. Results & Data Results & Data ([facility]) Vital Signs (Past 12 Hours) Vital Signs Temp Pulse Resp BP BP Pulse Ox O2 Del Method 05/13/22 06:59 36.4 C L 56 L 16 179/76 H 97 Room Air 05/12/22 22:19 36.8 C 65 16 183/78 H 96 Room Air Laboratory Results 05/13/22 05/13/22 05/13/22 Range/Units 08:02 05:38 05:38 WBC 4.53 L (4.8-10.8) K/ul RBC 4.17 (3.93-5.22) M/uL Hgb 12.4 (12.0-16.0) g/dl Hct 36.6 (34.1-44.9) % MCV 87.8 (80.0-100.0) fL MCH 29.7 (25.0-34.0) pg MCHC 33.9 (32.0-36.0) g/dL RDW Std Deviation 44.6 (36.4-46.3) fL RDW Coeff of Cyn 13.9 (11.5-14.5) % Plt Count 175 (130-400) K/uL MPV 11.1 (9.4-12.3) fL Immature Gran % (Auto) % Neut % (Auto) % Lymph % (Auto) % Cooke % (Auto) % Eos % (Auto) % Baso % (Auto) % Neut # (Auto) (1.4-6.5) K/uL Lymph # (Auto) (1.2-3.4) K/uL Cooke # (Auto) (0.24-0.82) K/uL Eos # (Auto) (0-0.50) K/uL Baso # (Auto) (0-0.2) K/uL Immature Gran # (Auto) (0.00-0.02) K/uL Sodium 140 (136-145) mmol/L Potassium 3.7 (3.5-5.1) mmol/L Chloride 107 (98-107) mmol/L Carbon Dioxide 26 (21-32) mmol/L Anion Gap 7 (3-11) BUN 16 (6-23) mg/dl Creatinine 0.76 (0.6-1.2) mg/dl Est Cr Clr Drug Dosing 60.2 ml/min Est GFR ( Amer) 90.8 ml/min Est GFR (Non-Af Amer) 78.4 ml/min BUN/Creatinine Ratio 21.1 H (10-20) Glucose 100 H (70-99(Fasting)) mg/dl POC Glucose 95 (70-99) mg/dl Estimat Average Glucose mg/dl Hemoglobin A1c (4.5-5.6) % Calcium 8.3 L (8.5-10.1) mg/dl Phosphorus 3.4 (2.5-4.9) mg/dl Magnesium 1.9 (1.7-2.4) mg/dl 05/12/22 05/12/22 05/12/22 Range/Units 20:09 17:15 12:03 WBC (4.8-10.8) K/ul RBC (3.93-5.22) M/uL Hgb (12.0-16.0) g/dl Hct (34.1-44.9) % MCV (80.0-100.0) fL MCH (25.0-34.0) pg MCHC (32.0-36.0) g/dL RDW Std Deviation (36.4-46.3) fL RDW Coeff of Cyn (11.5-14.5) % Plt Count (130-400) K/uL MPV (9.4-12.3) fL Immature Gran % (Auto) % Neut % (Auto) % Lymph % (Auto) % Cooke % (Auto) % Eos % (Auto) % Baso % (Auto) % Neut # (Auto) (1.4-6.5) K/uL Lymph # (Auto) (1.2-3.4) K/uL Cooke # (Auto) (0.24-0.82) K/uL Eos # (Auto) (0-0.50) K/uL Baso # (Auto) (0-0.2) K/uL Immature Gran # (Auto) (0.00-0.02) K/uL Sodium (136-145) mmol/L Potassium (3.5-5.1) mmol/L Chloride (98-107) mmol/L Carbon Dioxide (21-32) mmol/L Anion Gap (3-11) BUN (6-23) mg/dl Creatinine (0.6-1.2) mg/dl Est Cr Clr Drug Dosing ml/min Est GFR ( Amer) ml/min Est GFR (Non-Af Amer) ml/min BUN/Creatinine Ratio (10-20) Glucose (70-99(Fasting)) mg/dl POC Glucose 106 H 119 H 132 H (70-99) mg/dl Estimat Average Glucose mg/dl Hemoglobin A1c (4.5-5.6) % Calcium (8.5-10.1) mg/dl Phosphorus (2.5-4.9) mg/dl Magnesium (1.7-2.4) mg/dl 05/12/22 05/12/22 05/12/22 Range/Units 08:18 08:18 08:18 WBC 5.94 (4.8-10.8) K/ul RBC 4.24 (3.93-5.22) M/uL Hgb 12.5 (12.0-16.0) g/dl Hct 37.3 (34.1-44.9) % MCV 88.0 (80.0-100.0) fL MCH 29.5 (25.0-34.0) pg MCHC 33.5 (32.0-36.0) g/dL RDW Std Deviation 44.0 (36.4-46.3) fL RDW Coeff of Cyn 13.6 (11.5-14.5) % Plt Count 193 (130-400) K/uL MPV 10.8 (9.4-12.3) fL Immature Gran % (Auto) 0.3 % Neut % (Auto) 62.7 % Lymph % (Auto) 26.6 % Cooke % (Auto) 9.1 % Eos % (Auto) 0.3 % Baso % (Auto) 1.0 % Neut # (Auto) 3.72 (1.4-6.5) K/uL Lymph # (Auto) 1.58 (1.2-3.4) K/uL Cooke # (Auto) 0.54 (0.24-0.82) K/uL Eos # (Auto) 0.02 (0-0.50) K/uL Baso # (Auto) 0.06 (0-0.2) K/uL Immature Gran # (Auto) 0.02 (0.00-0.02) K/uL Sodium 143 D (136-145) mmol/L Potassium 3.6 (3.5-5.1) mmol/L Chloride 107 (98-107) mmol/L Carbon Dioxide 29 (21-32) mmol/L Anion Gap 7 (3-11) BUN 13 (6-23) mg/dl Creatinine 0.61 (0.6-1.2) mg/dl Est Cr Clr Drug Dosing 75.0 ml/min Est GFR ( Amer) 105.0 ml/min Est GFR (Non-Af Amer) 90.6 ml/min BUN/Creatinine Ratio 21.3 H (10-20) Glucose 105 H (70-99(Fasting)) mg/dl POC Glucose (70-99) mg/dl Estimat Average Glucose 131 mg/dl Hemoglobin A1c 6.2 H (4.5-5.6) % Calcium 8.9 (8.5-10.1) mg/dl Phosphorus (2.5-4.9) mg/dl Magnesium 2.0 (1.7-2.4) mg/dl Medications Administered Current Inpatient Medications Acetaminophen (Acetaminophen 325 Mg Tab) 650 mg PO Q4H PRN PRN Reason: pain/fever Stop: 06/11/22 02:59 Last Admin: 05/12/22 20:10 Dose: 650 mg Ascorbic Acid (Ascorbic Acid 500 Mg Tab) 250 mg PO QAM JAMEL Stop: 06/11/22 08:59 Last Admin: 05/12/22 08:26 Dose: 250 mg Aspirin (Aspirin 81 Mg Ectab) 81 mg PO DAILY JAMEL Stop: 06/11/22 08:59 Last Admin: 05/12/22 08:25 Dose: 81 mg Atorvastatin Calcium (Atorvastatin 20 Mg Tab) 20 mg PO PM JAMEL Stop: 06/11/22 20:59 Last Admin: 05/12/22 20:12 Dose: 20 mg Clozapine (Clozapine 100 Mg Tab) 300 mg PO HS JAMEL Stop: 06/11/22 20:59 Last Admin: 05/12/22 20:12 Dose: 300 mg Clozapine (Clozapine 25 Mg Tab) 50 mg PO QAM JAMEL Stop: 06/11/22 08:59 Last Admin: 05/12/22 08:25 Dose: 50 mg Cyanocobalamin (Cyanocobalamin (B-12) 500 Mcg Tablet) 1,000 mcg PO DAILY JAMEL Stop: 06/11/22 08:59 Last Admin: 05/12/22 08:25 Dose: 1,000 mcg Dextrose (Dextrose 50% 50 Ml Syringe) 25 - 50 ml IV UD PRN; Protocol PRN Reason: Hypoglycemia Protocol Stop: 06/11/22 03:29 Duloxetine HCl (Duloxetine Hcl 60 Mg Cap) 60 mg PO QAM JAMEL Stop: 06/11/22 08:59 Last Admin: 05/12/22 08:26 Dose: 60 mg Ergocalciferol (Ergocalciferol 50,000 Units 1250 Mcg Cap) 50,000 units PO We@0900 JAMEL Stop: 06/16/22 08:59 Ferrous Sulfate (Ferrous Sulfate 325 Mg Tab) 325 mg PO DAILY JAMEL Stop: 06/11/22 08:59 Last Admin: 05/12/22 08:25 Dose: 325 mg Fluticasone Propionate (Fluticasone Propionate Na Spr 16 Gm Btl) 2 sprays NA DAILY JAMEL Stop: 06/11/22 08:59 Last Admin: 05/12/22 08:27 Dose: 2 sprays Gabapentin (Gabapentin 100 Mg Cap) 100 mg PO DAILY@0900,1400 JAMEL Stop: 06/11/22 08:59 Last Admin: 05/12/22 14:33 Dose: 100 mg Gabapentin (Gabapentin 100 Mg Cap) 200 mg PO HS JAMEL Stop: 06/11/22 20:59 Last Admin: 05/12/22 20:15 Dose: 200 mg Glucagon (Glucagon For Inj 1 Mg Vial) 1 mg IM UD PRN; Protocol PRN Reason: Hypoglycemia Protocol Stop: 06/11/22 03:29 Glucose (Glucose 40% Gel 15 Gm Tube) 15 - 30 gm PO UD PRN; Protocol PRN Reason: Hypoglycemia Protocol Stop: 06/11/22 03:29 Glucose (Glucose 10 Tab/Tube) 4 - 8 tab PO UD PRN; Protocol PRN Reason: Hypoglycemia Protocol Stop: 06/11/22 03:29 Heparin Sodium (Porcine) (Heparin Sod 5,000 Unit/0.5 Ml Vial) 5,000 units SQ Q8 JAMEL Stop: 06/11/22 05:59 Last Admin: 05/13/22 06:00 Dose: 5,000 units Ertapenem 1,000 mg/ Syringe 10 mls @ 2 mls/min IV Q24H JAMEL Stop: 05/22/22 21:59 Last Admin: 05/12/22 22:28 Dose: 2 mls/min Insulin Aspart (Insulin Aspart Per Unit) 0 units SC ACHS JAMEL Stop: 06/11/22 07:29 Last Admin: 05/12/22 20:18 Dose: Not Given Levothyroxine Sodium (Levothyroxine Sodium 50 Mcg Tablet) 50 mcg PO DAILYBB [facility] Stop: 06/11/22 06:29 Last Admin: 05/13/22 06:00 Dose: 50 mcg Loratadine (Loratadine 10 Mg Tab) 10 mg PO HS [facility] Stop: 06/11/22 20:59 Last Admin: 05/12/22 20:14 Dose: 10 mg Magnesium Oxide (Magnesium Oxide 400 Mg Tab) 400 mg PO QAM [facility] Stop: 06/11/22 08:59 Last Admin: 05/12/22 08:26 Dose: 400 mg Meclizine HCl (Meclizine Hcl 25 Mg Tab) 25 mg PO Q5H PRN PRN Reason: DIZZY Stop: 06/11/22 02:59 Metoprolol Succinate (Metoprolol Succ 50mg Ext Rel Tab) 50 mg PO QAM [facility] Stop: 06/11/22 08:59 Last Admin: 05/12/22 07:42 Dose: 50 mg Miscellaneous (Carbohydrates For Hypoglycemia ) 15 - 30 gm PO UD PRN PRN Reason: Hypoglycemia Treatment Stop: 06/11/22 03:29 Nortriptyline HCl (Nortriptyline Hcl 25 Mg Cap) 50 mg PO [facility] Stop: 06/11/22 20:59 Last Admin: 05/12/22 20:11 Dose: 50 mg Ondansetron HCl (Ondansetron 4 Mg Od Tab) 4 mg PO Q8H PRN PRN Reason: Nausea Stop: 06/11/22 02:59 Pantoprazole Sodium (Pantoprazole 40 Mg Tab) 40 mg PO [facility] Stop: 06/11/22 20:59 Last Admin: 05/12/22 20:15 Dose: 40 mg Polyethylene Glycol (Polyethylene (Miralax) 17 Gm Pack) 17 gm PO DAILY PRN PRN Reason: Constipation Stop: 06/11/22 02:59 Psyllium Hydrophilic Mucilloid (Psyllium Or Guar Gum Fiber Powder Packet) 1 pkt PO TID PRN PRN Reason: Constipation Stop: 06/11/22 03:19 Sumatriptan Succinate (Sumatriptan Succinate 100 Mg Tab) 100 mg PO DAILY PRN PRN Reason: Migraine Headache Stop: 06/11/22 02:59 Last Admin: 05/12/22 16:21 Dose: 100 mg
[2022-05-13] MEDS: GABAPENTIN 100 MG CAP PO SCH ×3 (09:57→20:58)
[2022-05-13] MEDS: ASPIRIN 81 MG ECTAB PO SCH (09:57)
[2022-05-13] MEDS: METOPROLOL SUCC 50MG EXT REL TAB PO SCH (09:57)
[2022-05-13] MEDS: cloZAPine 25 MG TAB PO SCH (09:57)
[2022-05-13] MEDS: DULoxetine HCL 60 MG CAP PO SCH (09:57)
[2022-05-13] MEDS: MAGNESIUM OXIDE 400 MG TAB PO SCH (09:57)
[2022-05-13] MEDS: CYANOCOBALAMIN (B-12) 500 MCG TABLET PO SCH (09:57)
[2022-05-13] MEDS: FERROUS SULFATE 325 MG TAB PO SCH (09:57)
[2022-05-13] MEDS: INSULIN ASPART PER UNIT SC SCH ×4 (09:58→21:00)
[2022-05-13] MEDS: ASCORBIC ACID 500 MG TAB PO SCH (09:58)
[2022-05-13] MEDS: FLUTICASONE PROPIONATE NA SPR 16 GM BTL SCH (09:58)
[2022-05-13] MEDS: ONDANSETRON 4 MG OD TAB PO PRN (10:51)
[2022-05-13] MEDS: MECLIZINE HCL 25 MG TAB PO PRN (10:52)
[2022-05-13] MEDS: ACETAMINOPHEN 325 MG TAB PO PRN ×2 (11:54→20:56)
[2022-05-13] MEDS ORDERED: lisinopril 2.5 MG TAB PO SCH (13:15)
[2022-05-13] MEDS: ATORVASTATIN 20 MG TAB PO SCH (20:57)
[2022-05-13] MEDS: cloZAPine 100 MG TAB PO SCH (20:58)
[2022-05-13] MEDS: PANTOprazole 40 MG TAB PO SCH (20:58)
[2022-05-13] MEDS: NORTRIPTYLINE HCL 25 MG CAP PO SCH (20:59)
[2022-05-13] MEDS: LORATADINE 10 MG TAB PO SCH (20:59)
[2022-05-13] MEDS: ERTAPENEM SODIUM 1,000 MG in SYRINGE 0 ML IV SCH (21:38)
[2022-05-14] MEDS: LEVOTHYROXINE SODIUM 50 MCG TABLET PO SCH (05:45)
[2022-05-14] MEDS: HEPARIN SOD 5,000 UNIT/0.5 ML VIAL SQ SCH ×3 (05:45→21:53)
[2022-05-14 07:16] LABS: Hematocrit (blood only) 38.4 % (34.1-44.9); Hemoglobin 12.8 g/dl (12.0-16.0); Mean Corpuscular Hemoglobin 30.1 pg (25.0-34.0); Mean Corpuscular Hgb Conc 33.3 g/dL (32.0-36.0); Mean Corpuscular Volume 90.4 fL (80.0-100.0); Mean Platelet Volume 10.2 fL (9.4-12.3); Platelet Count 165 K/uL (130-400); RDW Standard Deviation 46.1 fL (36.4-46.3); Red Blood Count 4.25 M/uL (3.93-5.22)
[2022-05-14 07:43] LABS: Calcium 8.8 mg/dl (8.5-10.1); Creatinine Clr Calc Pharmacy 67.3 ml/min; Est GFR (African American) 101.3 ml/min; Est GFR (Non-African American) 87.4 ml/min; Magnesium 2.1 mg/dl (1.7-2.4); Phosphorus 3.5 mg/dl (2.5-4.9); Potassium 3.8 mmol/L (3.5-5.1)
--- NOTE | 2022-05-14 08:42 | Hospitalist Progress Note ---
Date of Service May 14, 2022 Assessment & Plan (1) Generalized weakness: (2) UTI (urinary tract infection): Plan: This is a 71-year-old female who presents with dizziness and weakness. 1. Weakness and dizziness, likely secondary to urinary tract infection: ER started on Invanz because of allergic to penicillins and cephalosporins. Will continue the Invanz. Urine culture - positive for E.coli. (Resist. to cipro, levaquin, ampicilin) Closely monitor in the medical floor. PT, OT 2. History of hyperlipidemia: Continue statin. 3. History of schizophrenia Chronic condition, somatization disorder, anxiety state. Continue her home medications. 4. Hypothyroidism. Continue Synthroid. 5. Diabetes: Hold metformin. Placed on insulin sliding scale. Current HbA1c 6.2% Follow the blood sugars 6. History of hypertension: Continue metoprolol succinate. BP elevated. Started lisinopril. Monitor the blood pressure. 7. Migraine: On sumatriptan p.r.n. and riboflavin. 8. Gastroesophageal reflux disease: On omeprazole. 9. Slow transit constipation: On Metamucil. DVT prophylaxis: Heparin subq DISPOSITION:medical floor. PT, OT prior to discharge. Social service to help with discharge planning. CODE: FULL Admission and Anticipated Discharge Date Admission Date: May 12, 2022 Subjective Pt seen in follow up of weakness, UTI Sitting up in bed in NAD Reports feeling better overall Denies fevers chills chest pain or shortness of breath, abdominal pain, vomiting Reports the room being chilly, and it is actually bit chilly. Notified staff. Review of Systems Review of Systems: All systems reviewed & are unremarkable except as noted in Subjective Physical Exam Physical Exam: GENERAL: elderly thin F not in acute distress. HEENT: Pupils equal, round, and reactive to light. Oral mucosa moist. NECK: No JVD, no neck masses. CARDIOVASCULAR: S1 and S2 heard. Regular rate and rhythm. No murmur, no gallop. RESPIRATORY: Normal AP diameter. No accessory muscle use. No wheezing, no crackles. ABDOMEN: Soft, bowel sounds present, nontender, no distention. NEURO: Awake and alert EXTREMITIES: No edema, no erythema. Results & Data Results & Data ([facility]) Vital Signs (Past 12 Hours) Vital Signs Temp Pulse Resp BP Pulse Ox O2 Del Method 11/13/22 07:47 36.4 C L 59 L 16 176/87 H 98 Room Air 05/13/22 21:20 36.8 C 64 14 153/87 H 98 Room Air Laboratory Results 05/14/22 05/14/22 05/14/22 Range/Units 08:12 06:56 06:56 WBC 5.20 (4.8-10.8) K/ul RBC 4.25 (3.93-5.22) M/uL Hgb 12.8 (12.0-16.0) g/dl Hct 38.4 (34.1-44.9) % MCV 90.4 (80.0-100.0) fL MCH 30.1 (25.0-34.0) pg MCHC 33.3 (32.0-36.0) g/dL RDW Std Deviation 46.1 (36.4-46.3) fL RDW Coeff of Cyn 14.0 (11.5-14.5) % Plt Count 165 (130-400) K/uL MPV 10.2 (9.4-12.3) fL Sodium 137 (136-145) mmol/L Potassium 3.8 (3.5-5.1) mmol/L Chloride 103 (98-107) mmol/L Carbon Dioxide 29 (21-32) mmol/L Anion Gap 5 (3-11) BUN 17 (6-23) mg/dl Creatinine 0.68 (0.6-1.2) mg/dl Est Cr Clr Drug Dosing 67.3 ml/min Est GFR ( Amer) 101.3 ml/min Est GFR (Non-Af Amer) 87.4 ml/min BUN/Creatinine Ratio 25.0 H (10-20) Glucose 97 (70-99(Fasting)) mg/dl POC Glucose 90 (70-99) mg/dl Calcium 8.8 (8.5-10.1) mg/dl Phosphorus 3.5 (2.5-4.9) mg/dl Magnesium 2.1 (1.7-2.4) mg/dl 05/13/22 05/13/22 05/13/22 Range/Units 20:37 17:01 12:29 WBC (4.8-10.8) K/ul RBC (3.93-5.22) M/uL Hgb (12.0-16.0) g/dl Hct (34.1-44.9) % MCV (80.0-100.0) fL MCH (25.0-34.0) pg MCHC (32.0-36.0) g/dL RDW Std Deviation (36.4-46.3) fL RDW Coeff of Cyn (11.5-14.5) % Plt Count (130-400) K/uL MPV (9.4-12.3) fL Sodium (136-145) mmol/L Potassium (3.5-5.1) mmol/L Chloride (98-107) mmol/L Carbon Dioxide (21-32) mmol/L Anion Gap (3-11) BUN (6-23) mg/dl Creatinine (0.6-1.2) mg/dl Est Cr Clr Drug Dosing ml/min Est GFR ( Amer) ml/min Est GFR (Non-Af Amer) ml/min BUN/Creatinine Ratio (10-20) Glucose (70-99(Fasting)) mg/dl POC Glucose 89 112 H 108 H (70-99) mg/dl Calcium (8.5-10.1) mg/dl Phosphorus (2.5-4.9) mg/dl Magnesium (1.7-2.4) mg/dl Medications Administered Current Inpatient Medications Acetaminophen (Acetaminophen 325 Mg Tab) 650 mg PO Q4H PRN PRN Reason: pain/fever Stop: 06/11/22 02:59 Last Admin: 05/13/22 20:56 Dose: 650 mg Ascorbic Acid (Ascorbic Acid 500 Mg Tab) 250 mg PO QAM JAMEL Stop: 06/11/22 08:59 Last Admin: 05/13/22 09:58 Dose: 250 mg Aspirin (Aspirin 81 Mg Ectab) 81 mg PO DAILY JAMEL Stop: 06/11/22 08:59 Last Admin: 05/13/22 09:57 Dose: 81 mg Atorvastatin Calcium (Atorvastatin 20 Mg Tab) 20 mg PO PM JAMEL Stop: 06/11/22 20:59 Last Admin: 05/13/22 20:57 Dose: 20 mg Clozapine (Clozapine 100 Mg Tab) 300 mg PO HS JAMEL Stop: 06/11/22 20:59 Last Admin: 05/13/22 20:58 Dose: 300 mg Clozapine (Clozapine 25 Mg Tab) 50 mg PO QAM JAMEL Stop: 06/11/22 08:59 Last Admin: 05/13/22 09:57 Dose: 50 mg Cyanocobalamin (Cyanocobalamin (B-12) 500 Mcg Tablet) 1,000 mcg PO DAILY JAMEL Stop: 06/11/22 08:59 Last Admin: 05/13/22 09:57 Dose: 1,000 mcg Dextrose (Dextrose 50% 50 Ml Syringe) 25 - 50 ml IV UD PRN; Protocol PRN Reason: Hypoglycemia Protocol Stop: 06/11/22 03:29 Duloxetine HCl (Duloxetine Hcl 60 Mg Cap) 60 mg PO QAM JAMEL Stop: 06/11/22 08:59 Last Admin: 05/13/22 09:57 Dose: 60 mg Ergocalciferol (Ergocalciferol 50,000 Units 1250 Mcg Cap) 50,000 units PO We@0900 [facility] Stop: 06/16/22 08:59 Ferrous Sulfate (Ferrous Sulfate 325 Mg Tab) 325 mg PO DAILY JAMEL Stop: 06/11/22 08:59 Last Admin: 05/13/22 09:57 Dose: 325 mg Fluticasone Propionate (Fluticasone Propionate Na Spr 16 Gm Btl) 2 sprays NA DAILY JAMEL Stop: 06/11/22 08:59 Last Admin: 05/13/22 09:58 Dose: 2 sprays Gabapentin (Gabapentin 100 Mg Cap) 100 mg PO DAILY@0900,1400 [facility] Stop: 06/11/22 08:59 Last Admin: 05/13/22 13:02 Dose: 100 mg Gabapentin (Gabapentin 100 Mg Cap) 200 mg PO HS JAMEL Stop: 06/11/22 20:59 Last Admin: 05/13/22 20:58 Dose: 200 mg Glucagon (Glucagon For Inj 1 Mg Vial) 1 mg IM UD PRN; Protocol PRN Reason: Hypoglycemia Protocol Stop: 06/11/22 03:29 Glucose (Glucose 40% Gel 15 Gm Tube) 15 - 30 gm PO UD PRN; Protocol PRN Reason: Hypoglycemia Protocol Stop: 06/11/22 03:29 Glucose (Glucose 10 Tab/Tube) 4 - 8 tab PO UD PRN; Protocol PRN Reason: Hypoglycemia Protocol Stop: 06/11/22 03:29 Heparin Sodium (Porcine) (Heparin Sod 5,000 Unit/0.5 Ml Vial) 5,000 units SQ Q8 JAMEL Stop: 06/11/22 05:59 Last Admin: 05/14/22 05:45 Dose: 5,000 units Ertapenem 1,000 mg/ Syringe 10 mls @ 2 mls/min IV Q24H [facility] Stop: 05/22/22 21:59 Last Admin: 05/13/22 21:38 Dose: 2 mls/min Insulin Aspart (Insulin Aspart Per Unit) 0 units SC ACHS [facility] Stop: 06/11/22 07:29 Last Admin: 05/13/22 21:00 Dose: Not Given Levothyroxine Sodium (Levothyroxine Sodium 50 Mcg Tablet) [facility]: 06/11/22 06:29 Last Admin: 05/14/22 05:45 Dose: 50 mcg Lisinopril (Lisinopril 5 Mg Tab) 5 mg PO [facility] Stop: 06/13/22 08:59 Loratadine (Loratadine 10 Mg Tab) 10 mg PO [facility] Stop: 06/11/22 20:59 Last Admin: 05/13/22 20:59 Dose: 10 mg Magnesium Oxide (Magnesium Oxide 400 Mg Tab) 400 mg PO [facility] Stop: 06/11/22 08:59 Last Admin: 05/13/22 09:57 Dose: 400 mg Meclizine HCl (Meclizine Hcl 25 Mg Tab) 25 mg PO Q5H PRN PRN Reason: DIZZY Stop: 06/11/22 02:59 Last Admin: 05/13/22 10:52 Dose: 25 mg Metoprolol Succinate (Metoprolol Succ 50mg Ext Rel Tab) 50 mg PO [facility] Stop: 06/11/22 08:59 Last Admin: 05/13/22 09:57 Dose: 50 mg Miscellaneous (Carbohydrates For Hypoglycemia ) 15 - 30 gm PO UD PRN PRN Reason: Hypoglycemia Treatment Stop: 06/11/22 03:29 Nortriptyline HCl (Nortriptyline Hcl 25 Mg Cap) 50 mg PO [facility] Stop: 06/11/22 20:59 Last Admin: 05/13/22 20:59 Dose: 50 mg Ondansetron HCl (Ondansetron 4 Mg Od Tab) 4 mg PO Q8H PRN PRN Reason: Nausea Stop: 06/11/22 02:59 Last Admin: 05/13/22 10:51 Dose: 4 mg Pantoprazole Sodium (Pantoprazole 40 Mg Tab) 40 mg PO HS JAMEL Stop: 06/11/22 20:59 Last Admin: 05/13/22 20:58 Dose: 40 mg Polyethylene Glycol (Polyethylene (Miralax) 17 Gm Pack) 17 gm PO DAILY PRN PRN Reason: Constipation Stop: 06/11/22 02:59 Psyllium Hydrophilic Mucilloid (Psyllium Or Guar Gum Fiber Powder Packet) 1 pkt PO TID PRN PRN Reason: Constipation Stop: 06/11/22 03:19 Sumatriptan Succinate (Sumatriptan Succinate 100 Mg Tab) 100 mg PO DAILY PRN PRN Reason: Migraine Headache Stop: 06/11/22 02:59 Last Admin: 05/12/22 16:21 Dose: 100 mg
[2022-05-14] MEDS: FLUTICASONE PROPIONATE NA SPR 16 GM BTL SCH (10:02)
[2022-05-14] MEDS: ACETAMINOPHEN 325 MG TAB PO PRN (10:03)
[2022-05-14] MEDS: cloZAPine 25 MG TAB PO SCH (10:03)
[2022-05-14] MEDS: FERROUS SULFATE 325 MG TAB PO SCH (10:04)
[2022-05-14] MEDS: DULoxetine HCL 60 MG CAP PO SCH (10:04)
[2022-05-14] MEDS: MECLIZINE HCL 25 MG TAB PO PRN (10:04)
[2022-05-14] MEDS: CYANOCOBALAMIN (B-12) 500 MCG TABLET PO SCH (10:05)
[2022-05-14] MEDS: METOPROLOL SUCC 50MG EXT REL TAB PO SCH (10:05)
[2022-05-14] MEDS: ASPIRIN 81 MG ECTAB PO SCH (10:05)
[2022-05-14] MEDS: GABAPENTIN 100 MG CAP PO SCH ×3 (10:06→20:42)
[2022-05-14] MEDS: ASCORBIC ACID 500 MG TAB PO SCH (10:06)
[2022-05-14] MEDS: INSULIN ASPART PER UNIT SC SCH ×4 (10:08→21:00)
[2022-05-14] MEDS: PSYLLIUM or GUAR GUM FIBER POWDER PACKET PO PRN ×2 (10:10→17:44)
[2022-05-14] MEDS: lisinopril 5 MG TAB PO SCH (10:46)
[2022-05-14] MEDS: MAGNESIUM OXIDE 400 MG TAB PO SCH (10:47)
[2022-05-14] MEDS: SUMAtriptan succinate 100 MG TAB PO PRN ×2 (12:50→17:43)
[2022-05-14] MEDS ORDERED: hydrALAZINE HCL 20 MG/ML VIAL IV ONE (20:33)
[2022-05-14] MEDS: PANTOprazole 40 MG TAB PO SCH (20:42)
[2022-05-14] MEDS: NORTRIPTYLINE HCL 25 MG CAP PO SCH (20:42)
[2022-05-14] MEDS: LORATADINE 10 MG TAB PO SCH (20:42)
[2022-05-14] MEDS: cloZAPine 100 MG TAB PO SCH (20:42)
[2022-05-14] MEDS: ATORVASTATIN 20 MG TAB PO SCH (20:42)
[2022-05-14] MEDS: ONDANSETRON 4 MG OD TAB PO PRN (21:12)
[2022-05-14] MEDS: ERTAPENEM SODIUM 1,000 MG in SYRINGE 0 ML IV SCH (21:52)
[2022-05-15] MEDS: LEVOTHYROXINE SODIUM 50 MCG TABLET PO SCH (06:01)
[2022-05-15] MEDS: HEPARIN SOD 5,000 UNIT/0.5 ML VIAL SQ SCH ×3 (06:01→21:37)
--- NOTE | 2022-05-15 08:22 | Hospitalist Progress Note ---
Date of Service May 15, 2022 Assessment & Plan (1) Generalized weakness: (2) UTI (urinary tract infection): Plan: This is a 71-year-old female who presents with dizziness and weakness. 1. Weakness and dizziness, likely secondary to urinary tract infection: ER started on Invanz because of allergic to penicillins and cephalosporins. Will continue the Invanz. Urine culture - positive for E.coli. (Resist. to cipro, levaquin, ampicilin) Closely monitor in the medical floor. PT, OT 2. History of hyperlipidemia: Continue statin. 3. History of schizophrenia Chronic condition, somatization disorder, anxiety state. Continue her home medications. 4. Hypothyroidism. Continue Synthroid. 5. Diabetes: Hold metformin. Placed on insulin sliding scale. Current HbA1c 6.2% Follow the blood sugars 6. History of hypertension: Continue metoprolol succinate. BP elevated. Started lisinopril. Monitor the blood pressure. 7. Migraine: On sumatriptan p.r.n. and riboflavin. 8. Gastroesophageal reflux disease: On omeprazole. 9. Slow transit constipation: On Metamucil. DVT prophylaxis: Heparin subq DISPOSITION:medical floor. PT, OT prior to discharge. Social service to help with discharge planning. CODE: FULL Admission and Anticipated Discharge Date Admission Date: May 12, 2022 Subjective Pt seen in follow up of weakness, UTI Sitting up in bed in NAD Reports feeling better overall but has some nausea this AM Denies fevers chills chest pain or shortness of breath, abdominal pain, vomiting Review of Systems Review of Systems: All systems reviewed & are unremarkable except as noted in Subjective Physical Exam Physical Exam: GENERAL: elderly thin F not in acute distress. HEENT: Pupils equal, round, and reactive to light. Oral mucosa moist. NECK: No JVD, no neck masses. CARDIOVASCULAR: S1 and S2 heard. Regular rate and rhythm. No murmur, no gallop. RESPIRATORY: Normal AP diameter. No accessory muscle use. No wheezing, no crackles. ABDOMEN: Soft, bowel sounds present, nontender, no distention. NEURO: Awake and alert EXTREMITIES: No edema, no erythema. Results & Data Results & Data ([facility]) Vital Signs (Past 12 Hours) Vital Signs Temp Pulse Resp BP Pulse Ox O2 Del Method 05/15/22 07:03 36.5 C 54 L 16 162/70 H 98 Room Air 05/14/22 21:09 179/80 H 05/14/22 20:29 36.5 C 58 L 16 185/80 H 95 Room Air Laboratory Results 05/15/22 05/15/22 05/15/22 Range/Units 08:15 08:15 08:08 WBC 5.85 (4.8-10.8) K/ul RBC 4.39 (3.93-5.22) M/uL Hgb 13.1 (12.0-16.0) g/dl Hct 38.7 (34.1-44.9) % MCV 88.2 (80.0-100.0) fL MCH 29.8 (25.0-34.0) pg MCHC 33.9 (32.0-36.0) g/dL RDW Std Deviation 45.3 (36.4-46.3) fL RDW Coeff of Cyn 14.2 (11.5-14.5) % Plt Count 162 (130-400) K/uL MPV 10.1 (9.4-12.3) fL Sodium 140 (136-145) mmol/L Potassium 4.0 (3.5-5.1) mmol/L Chloride 105 (98-107) mmol/L Carbon Dioxide 30 (21-32) mmol/L Anion Gap 5 (3-11) BUN 21 (6-23) mg/dl Creatinine 0.86 (0.6-1.2) mg/dl Est Cr Clr Drug Dosing 53.2 ml/min Est GFR ( Amer) 78.2 ml/min Est GFR (Non-Af Amer) 67.5 ml/min BUN/Creatinine Ratio 24.4 H (10-20) Glucose 112 H (70-99(Fasting)) mg/dl POC Glucose 110 H (70-99) mg/dl Calcium 8.8 (8.5-10.1) mg/dl Phosphorus 3.7 (2.5-4.9) mg/dl Magnesium 2.0 (1.7-2.4) mg/dl 05/14/22 05/14/22 05/14/22 Range/Units 20:27 17:11 12:05 WBC (4.8-10.8) K/ul RBC (3.93-5.22) M/uL Hgb (12.0-16.0) g/dl Hct (34.1-44.9) % MCV (80.0-100.0) fL MCH (25.0-34.0) pg MCHC (32.0-36.0) g/dL RDW Std Deviation (36.4-46.3) fL RDW Coeff of Cyn (11.5-14.5) % Plt Count (130-400) K/uL MPV (9.4-12.3) fL Sodium (136-145) mmol/L Potassium (3.5-5.1) mmol/L Chloride (98-107) mmol/L Carbon Dioxide (21-32) mmol/L Anion Gap (3-11) BUN (6-23) mg/dl Creatinine (0.6-1.2) mg/dl Est Cr Clr Drug Dosing ml/min Est GFR ( Amer) ml/min Est GFR (Non-Af Amer) ml/min BUN/Creatinine Ratio (10-20) Glucose (70-99(Fasting)) mg/dl POC Glucose 97 92 124 H (70-99) mg/dl Calcium (8.5-10.1) mg/dl Phosphorus (2.5-4.9) mg/dl Magnesium (1.7-2.4) mg/dl Medications Administered Current Inpatient Medications Acetaminophen (Acetaminophen 325 Mg Tab) 650 mg PO Q4H PRN PRN Reason: pain/fever Stop: 06/11/22 02:59 Last Admin: 05/14/22 10:03 Dose: 650 mg Ascorbic Acid (Ascorbic Acid 500 Mg Tab) 250 mg PO QAM JAMEL Stop: 06/11/22 08:59 Last Admin: 05/14/22 10:06 Dose: 250 mg Aspirin (Aspirin 81 Mg Ectab) 81 mg PO DAILY JAMEL Stop: 06/11/22 08:59 Last Admin: 05/14/22 10:05 Dose: 81 mg Atorvastatin Calcium (Atorvastatin 20 Mg Tab) 20 mg PO PM JAMEL Stop: 06/11/22 20:59 Last Admin: 05/14/22 20:42 Dose: 20 mg Clozapine (Clozapine 100 Mg Tab) 300 mg PO HS JAMEL Stop: 06/11/22 20:59 Last Admin: 05/14/22 20:42 Dose: 300 mg Clozapine (Clozapine 25 Mg Tab) 50 mg PO QAM JAMEL Stop: 06/11/22 08:59 Last Admin: 05/14/22 10:03 Dose: 50 mg Cyanocobalamin (Cyanocobalamin (B-12) 500 Mcg Tablet) 1,000 mcg PO DAILY JAMEL Stop: 06/11/22 08:59 Last Admin: 05/14/22 10:05 Dose: 1,000 mcg Dextrose (Dextrose 50% 50 Ml Syringe) 25 - 50 ml IV UD PRN; Protocol PRN Reason: Hypoglycemia Protocol Stop: 06/11/22 03:29 Duloxetine HCl (Duloxetine Hcl 60 Mg Cap) 60 mg PO QAM JAMEL Stop: 06/11/22 08:59 Last Admin: 05/14/22 10:04 Dose: 60 mg Ergocalciferol (Ergocalciferol 50,000 Units 1250 Mcg Cap) 50,000 units PO We@0900 [facility] Stop: 06/16/22 08:59 Ferrous Sulfate (Ferrous Sulfate 325 Mg Tab) 325 mg PO DAILY JAMEL Stop: 06/11/22 08:59 Last Admin: 05/14/22 10:04 Dose: 325 mg Fluticasone Propionate (Fluticasone Propionate Na Spr 16 Gm Btl) 2 sprays NA DAILY JAMEL Stop: 06/11/22 08:59 Last Admin: 05/14/22 10:02 Dose: 2 sprays Gabapentin (Gabapentin 100 Mg Cap) 100 mg PO DAILY@0900,1400 [facility] Stop: 06/11/22 08:59 Last Admin: 05/14/22 15:11 Dose: 100 mg Gabapentin (Gabapentin 100 Mg Cap) 200 mg PO HS JAMEL Stop: 06/11/22 20:59 Last Admin: 05/14/22 20:42 Dose: 200 mg Glucagon (Glucagon For Inj 1 Mg Vial) 1 mg IM UD PRN; Protocol PRN Reason: Hypoglycemia Protocol Stop: 06/11/22 03:29 Glucose (Glucose 40% Gel 15 Gm Tube) 15 - 30 gm PO UD PRN; Protocol PRN Reason: Hypoglycemia Protocol Stop: 06/11/22 03:29 Glucose (Glucose 10 Tab/Tube) 4 - 8 tab PO UD PRN; Protocol PRN Reason: Hypoglycemia Protocol Stop: 06/11/22 03:29 Heparin Sodium (Porcine) (Heparin Sod 5,000 Unit/0.5 Ml Vial) 5,000 units SQ Q8 JAMEL Stop: 06/11/22 05:59 Last Admin: 05/15/22 06:01 Dose: 5,000 units Ertapenem 1,000 mg/ Syringe 10 mls @ 2 mls/min IV Q24H [facility] Stop: 05/22/22 21:59 Last Admin: 05/14/22 21:52 Dose: 2 mls/min Insulin Aspart (Insulin Aspart Per Unit) 0 units SC ACHS [facility] Stop: 06/11/22 07:29 Last Admin: 05/14/22 21:00 Dose: Not Given Levothyroxine Sodium ([facility]othyroxine Sodium 50 Mcg Tablet) [facility]: 06/11/22 06:29 Last Admin: 05/15/22 06:01 Dose: 50 mcg Lisinopril (Lisinopril 5 Mg Tab) 5 mg PO [facility] Stop: 06/13/22 08:59 Last Admin: 05/14/22 10:46 Dose: 5 mg Loratadine (Loratadine 10 Mg Tab) [address] [facility] Stop: 06/11/22 20:59 Last Admin: 05/14/22 20:42 Dose: 10 mg Magnesium Oxide (Magnesium Oxide 400 Mg Tab) 400 mg PO [facility] Stop: 06/11/22 08:59 Last Admin: 05/14/22 10:47 Dose: 400 mg Meclizine HCl (Meclizine Hcl 25 Mg Tab) 25 mg PO Q5H PRN PRN Reason: DIZZY Stop: 06/11/22 02:59 Last Admin: 05/14/22 10:04 Dose: 25 mg Metoprolol Succinate (Metoprolol Succ 50mg Ext Rel Tab) 50 mg PO [facility] Stop: 06/11/22 08:59 Last Admin: 05/14/22 10:05 Dose: 50 mg Miscellaneous (Carbohydrates For Hypoglycemia ) 15 - 30 gm PO UD PRN PRN Reason: Hypoglycemia Treatment Stop: 06/11/22 03:29 Nortriptyline HCl (Nortriptyline Hcl 25 Mg Cap) [address] [facility] Stop: 06/11/22 20:59 Last Admin: 05/14/22 20:42 Dose: 50 mg Ondansetron HCl (Ondansetron 4 Mg Od Tab) 4 mg PO Q8H PRN PRN Reason: Nausea Stop: 06/11/22 02:59 Last Admin: 05/14/22 21:12 Dose: 4 mg Pantoprazole Sodium (Pantoprazole 40 Mg Tab) 40 mg PO HS JAMEL Stop: 06/11/22 20:59 Last Admin: 05/14/22 20:42 Dose: 40 mg Polyethylene Glycol (Polyethylene (Miralax) 17 Gm Pack) 17 gm PO DAILY PRN PRN Reason: Constipation Stop: 06/11/22 02:59 Psyllium Hydrophilic Mucilloid (Psyllium Or Guar Gum Fiber Powder Packet) 1 pkt PO TID PRN PRN Reason: Constipation Stop: 06/11/22 03:19 Last Admin: 05/14/22 17:44 Dose: 1 pkt Sumatriptan Succinate (Sumatriptan Succinate 100 Mg Tab) 100 mg PO DAILY PRN PRN Reason: Migraine Headache Stop: 06/11/22 02:59 Last Admin: 05/14/22 17:43 Dose: 100 mg
[2022-05-15 08:31] LABS: Hematocrit (blood only) 38.7 % (34.1-44.9); Hemoglobin 13.1 g/dl (12.0-16.0); Mean Corpuscular Hemoglobin 29.8 pg (25.0-34.0); Mean Corpuscular Hgb Conc 33.9 g/dL (32.0-36.0); Mean Corpuscular Volume 88.2 fL (80.0-100.0); Mean Platelet Volume 10.1 fL (9.4-12.3); Platelet Count 162 K/uL (130-400); RDW Coefficient of Variation 14.2 % (11.5-14.5); RDW Standard Deviation 45.3 fL (36.4-46.3); Red Blood Count 4.39 M/uL (3.93-5.22); White Blood Count 5.85 K/ul (4.8-10.8)
[2022-05-15 09:07] LABS: BUN Creatinine Ratio 24.4 (10-20); Calcium 8.8 mg/dl (8.5-10.1); Creatinine Clr Calc Pharmacy 53.2 ml/min; Est GFR (African American) 78.2 ml/min; Est GFR (Non-African American) 67.5 ml/min; Phosphorus 3.7 mg/dl (2.5-4.9)
[2022-05-15] MEDS: INSULIN ASPART PER UNIT SC SCH ×4 (09:45→21:38)
[2022-05-15] MEDS: ASCORBIC ACID 500 MG TAB PO SCH (09:45)
[2022-05-15] MEDS: METOPROLOL SUCC 50MG EXT REL TAB PO SCH (09:46)
[2022-05-15] MEDS: DULoxetine HCL 60 MG CAP PO SCH (09:46)
[2022-05-15] MEDS: lisinopril 5 MG TAB PO SCH (09:46)
[2022-05-15] MEDS: ASPIRIN 81 MG ECTAB PO SCH (09:46)
[2022-05-15] MEDS: CYANOCOBALAMIN (B-12) 500 MCG TABLET PO SCH (09:46)
[2022-05-15] MEDS: FLUTICASONE PROPIONATE NA SPR 16 GM BTL SCH (09:46)
[2022-05-15] MEDS: GABAPENTIN 100 MG CAP PO SCH ×3 (09:46→21:38)
[2022-05-15] MEDS: FERROUS SULFATE 325 MG TAB PO SCH (09:46)
[2022-05-15] MEDS: MAGNESIUM OXIDE 400 MG TAB PO SCH (09:46)
[2022-05-15] MEDS: cloZAPine 25 MG TAB PO SCH (09:46)
[2022-05-15] MEDS: ADVANCED PROBIOTIC 1250 MG CAPSULE PO SCH (11:34)
[2022-05-15] MEDS: SENNA 8.6 MG TAB PO SCH (11:34)
[2022-05-15] MEDS: SUMAtriptan succinate 100 MG TAB PO PRN (21:34)
[2022-05-15] MEDS: PANTOprazole 40 MG TAB PO SCH (21:35)
[2022-05-15] MEDS: CEFDINIR 300 MG CAP PO SCH (21:35)
[2022-05-15] MEDS: cloZAPine 100 MG TAB PO SCH (21:36)
[2022-05-15] MEDS: ATORVASTATIN 20 MG TAB PO SCH (21:37)
[2022-05-15] MEDS: NORTRIPTYLINE HCL 25 MG CAP PO SCH (21:37)
[2022-05-15] MEDS: LORATADINE 10 MG TAB PO SCH (21:37)
[2022-05-16] MEDS: HEPARIN SOD 5,000 UNIT/0.5 ML VIAL SQ SCH ×2 (05:46→13:19)
[2022-05-16] MEDS: LEVOTHYROXINE SODIUM 50 MCG TABLET PO SCH (05:46)
[2022-05-16] MEDS: ASPIRIN 81 MG ECTAB PO SCH (08:45)
[2022-05-16] MEDS: ASCORBIC ACID 500 MG TAB PO SCH (08:45)
[2022-05-16] MEDS: CYANOCOBALAMIN (B-12) 500 MCG TABLET PO SCH (08:45)
[2022-05-16] MEDS: cloZAPine 25 MG TAB PO SCH (08:45)
[2022-05-16] MEDS: CEFDINIR 300 MG CAP PO SCH (08:45)
[2022-05-16] MEDS: DULoxetine HCL 60 MG CAP PO SCH (08:45)
[2022-05-16] MEDS: FLUTICASONE PROPIONATE NA SPR 16 GM BTL SCH (08:46)
[2022-05-16] MEDS: lisinopril 5 MG TAB PO SCH (08:46)
[2022-05-16] MEDS: METOPROLOL SUCC 50MG EXT REL TAB PO SCH (08:46)
[2022-05-16] MEDS: MAGNESIUM OXIDE 400 MG TAB PO SCH (08:46)
[2022-05-16] MEDS: GABAPENTIN 100 MG CAP PO SCH ×2 (08:46→13:19)
[2022-05-16] MEDS: FERROUS SULFATE 325 MG TAB PO SCH (08:46)
[2022-05-16] MEDS: ADVANCED PROBIOTIC 1250 MG CAPSULE PO SCH (08:46)
[2022-05-16] MEDS: SENNA 8.6 MG TAB PO SCH (08:46)
[2022-05-16 08:49] LABS: Hematocrit (blood only) 39.1 % (34.1-44.9); Hemoglobin 13.3 g/dl (12.0-16.0); Mean Corpuscular Hemoglobin 30.4 pg (25.0-34.0); Mean Corpuscular Volume 89.3 fL (80.0-100.0); Mean Platelet Volume 10.7 fL (9.4-12.3); Platelet Count 186 K/uL (130-400); RDW Coefficient of Variation 14.2 % (11.5-14.5); RDW Standard Deviation 45.6 fL (36.4-46.3); Red Blood Count 4.38 M/uL (3.93-5.22)
[2022-05-16 09:21] LABS: BUN Creatinine Ratio 29.4 (10-20); Calcium 9.1 mg/dl (8.5-10.1); Creatinine Clr Calc Pharmacy 53.8 ml/min; Est GFR (African American) 79.3 ml/min; Est GFR (Non-African American) 68.5 ml/min; Phosphorus 3.6 mg/dl (2.5-4.9)
[2022-05-16] MEDS: INSULIN ASPART PER UNIT SC SCH ×2 (09:44→12:59)
--- NOTE | 2022-05-16 10:57 | Electrocardiogram Report ---
Test Reason : Blood Pressure : / mmHG Vent. Rate : 059 BPM Atrial Rate : 059 BPM P-R Int : 138 ms QRS Dur : 086 ms QT Int : 454 ms P-R-T Axes : 079 023 028 degrees QTc Int : 449 ms Sinus bradycardia Otherwise normal ECG When compared with ECG of 13-JUL-2021 18:41, Criteria for Septal infarct are no longer Present Confirmed by Austin Barry ([id number]) on 05/12/2022 3:22:57 PM Also confirmed by Austin Barry ([id number]), marketing editor Moises Morillo ([id number]) on 05/16/2022 10:56:39 AM Referred By: REFERRED SELF Confirmed By:Austin Barry
--- NOTE | 2022-05-16 13:33 | Hospitalist Progress Note ---
Date of Service May 16, 2022 Assessment & Plan (1) Generalized weakness: (2) UTI (urinary tract infection): Plan: This is a 71-year-old female who presents with dizziness and weakness. 1. Weakness and dizziness, likely secondary to urinary tract infection: ER started on Invanz because of allergic to penicillins and cephalosporins. Will continue the Invanz. Urine culture - positive for E.coli. (Resist. to cipro, levaquin, ampicilin) Switched to PO cefdinir after discussing with pharmacy, pt is tolerating well Closely monitor in the medical floor. PT, OT - plan to DC to rehab ([facility]) 2. History of hyperlipidemia: Continue statin. 3. History of schizophrenia Chronic condition, somatization disorder, anxiety state. Continue her home medications. 4. Hypothyroidism. Continue Synthroid. 5. Diabetes: Hold metformin. Placed on insulin sliding scale. Current HbA1c 6.2% Follow the blood sugars 6. History of hypertension: Continue metoprolol succinate. BP elevated. Started lisinopril 5 mg daily. Follow BMP in 1 week. Monitor the blood pressure. 7. Migraine: On sumatriptan p.r.n. and riboflavin. 8. Gastroesophageal reflux disease: On omeprazole. 9. Slow transit constipation: On Metamucil. DVT prophylaxis: Heparin subq DISPOSITION: Plan to DC to [facility] CODE: FULL Admission and Anticipated Discharge Date Admission Date: May 12, 2022 Subjective Pt seen in follow up of weakness, UTI Sitting up in bed in NAD Reports feeling better overall but still feels weak Says she has been to [facility] before Denies fevers chills chest pain or shortness of breath, abdominal pain, vomiting Plan to DC to [facility], CM involved in DC Review of Systems Review of Systems: All systems reviewed & are unremarkable except as noted in Subjective Physical Exam Physical Exam: GENERAL: elderly thin F not in acute distress. HEENT: Pupils equal, round, and reactive to light. Oral mucosa moist. NECK: No JVD, no neck masses. CARDIOVASCULAR: S1 and S2 heard. Regular rate and rhythm. No murmur, no gallop. RESPIRATORY: Normal AP diameter. No accessory muscle use. No wheezing, no crackles. ABDOMEN: Soft, bowel sounds present, nontender, no distention. NEURO: Awake and alert EXTREMITIES: No edema, no erythema. Results & Data Results & Data ([facility]) Vital Signs (Past 12 Hours) Vital Signs Temp Pulse Resp BP Pulse Ox O2 Del Method 05/16/22 07:44 36.6 C 63 16 164/81 H 97 Room Air Laboratory Results 05/16/22 05/16/22 05/16/22 Range/Units 12:03 08:01 08:01 WBC 5.90 (4.8-10.8) K/ul RBC 4.38 (3.93-5.22) M/uL Hgb 13.3 (12.0-16.0) g/dl Hct 39.1 (34.1-44.9) % MCV 89.3 (80.0-100.0) fL MCH 30.4 (25.0-34.0) pg MCHC 34.0 (32.0-36.0) g/dL RDW Std Deviation 45.6 (36.4-46.3) fL RDW Coeff of Cyn 14.2 (11.5-14.5) % Plt Count 186 (130-400) K/uL MPV 10.7 (9.4-12.3) fL Sodium 138 (136-145) mmol/L Potassium 4.0 (3.5-5.1) mmol/L Chloride 103 (98-107) mmol/L Carbon Dioxide 29 (21-32) mmol/L Anion Gap 6 (3-11) BUN 25 H (6-23) mg/dl Creatinine 0.85 (0.6-1.2) mg/dl Est Cr Clr Drug Dosing 53.8 ml/min Est GFR ( Amer) 79.3 ml/min Est GFR (Non-Af Amer) 68.5 ml/min BUN/Creatinine Ratio 29.4 H (10-20) Glucose 111 H (70-99(Fasting)) mg/dl POC Glucose 102 H (70-99) mg/dl Calcium 9.1 (8.5-10.1) mg/dl Phosphorus 3.6 (2.5-4.9) mg/dl Magnesium 2.0 (1.7-2.4) mg/dl 05/16/22 05/15/22 05/15/22 Range/Units 07:59 20:42 17:04 WBC (4.8-10.8) K/ul RBC (3.93-5.22) M/uL Hgb (12.0-16.0) g/dl Hct (34.1-44.9) % MCV (80.0-100.0) fL MCH (25.0-34.0) pg MCHC (32.0-36.0) g/dL RDW Std Deviation (36.4-46.3) fL RDW Coeff of Cyn (11.5-14.5) % Plt Count (130-400) K/uL MPV (9.4-12.3) fL Sodium (136-145) mmol/L Potassium (3.5-5.1) mmol/L Chloride (98-107) mmol/L Carbon Dioxide (21-32) mmol/L Anion Gap (3-11) BUN (6-23) mg/dl Creatinine (0.6-1.2) mg/dl Est Cr Clr Drug Dosing ml/min Est GFR ( Amer) ml/min Est GFR (Non-Af Amer) ml/min BUN/Creatinine Ratio (10-20) Glucose (70-99(Fasting)) mg/dl POC Glucose 103 H 87 119 H (70-99) mg/dl Calcium (8.5-10.1) mg/dl Phosphorus (2.5-4.9) mg/dl Magnesium (1.7-2.4) mg/dl 05/15/22 Range/Units 16:49 WBC (4.8-10.8) K/ul RBC (3.93-5.22) M/uL Hgb (12.0-16.0) g/dl Hct (34.1-44.9) % MCV (80.0-100.0) fL MCH (25.0-34.0) pg MCHC (32.0-36.0) g/dL RDW Std Deviation (36.4-46.3) fL RDW Coeff of Cyn (11.5-14.5) % Plt Count (130-400) K/uL MPV (9.4-12.3) fL Sodium (136-145) mmol/L Potassium (3.5-5.1) mmol/L Chloride (98-107) mmol/L Carbon Dioxide (21-32) mmol/L Anion Gap (3-11) BUN (6-23) mg/dl Creatinine (0.6-1.2) mg/dl Est Cr Clr Drug Dosing ml/min Est GFR ( Amer) ml/min Est GFR (Non-Af Amer) ml/min BUN/Creatinine Ratio (10-20) Glucose (70-99(Fasting)) mg/dl POC Glucose 111 H (70-99) mg/dl Calcium (8.5-10.1) mg/dl Phosphorus (2.5-4.9) mg/dl Magnesium (1.7-2.4) mg/dl Medications Administered Current Inpatient Medications Acetaminophen (Acetaminophen 325 Mg Tab) 650 mg PO Q4H PRN PRN Reason: pain/fever Stop: 06/11/22 02:59 Last Admin: 05/14/22 10:03 Dose: 650 mg Ascorbic Acid (Ascorbic Acid 500 Mg Tab) 250 mg PO QAM JAMEL Stop: 06/11/22 08:59 Last Admin: 05/16/22 08:45 Dose: 250 mg Aspirin (Aspirin 81 Mg Ectab) 81 mg PO DAILY JAMEL Stop: 06/11/22 08:59 Last Admin: 05/16/22 08:45 Dose: 81 mg Atorvastatin Calcium (Atorvastatin 20 Mg Tab) 20 mg PO PM JAMEL Stop: 06/11/22 20:59 Last Admin: 05/15/22 21:37 Dose: 20 mg Cefdinir (Cefdinir 300 Mg Cap) 300 mg PO BID JAMEL Stop: 05/18/22 20:59 Last Admin: 05/16/22 08:45 Dose: 300 mg Clozapine (Clozapine 100 Mg Tab) 300 mg PO HS JAMEL Stop: 06/11/22 20:59 Last Admin: 05/15/22 21:36 Dose: 300 mg Clozapine (Clozapine 25 Mg Tab) 50 mg PO QAM JAMEL Stop: 06/11/22 08:59 Last Admin: 05/16/22 08:45 Dose: 50 mg Cyanocobalamin (Cyanocobalamin (B-12) 500 Mcg Tablet) 1,000 mcg PO DAILY JAMEL Stop: 06/11/22 08:59 Last Admin: 05/16/22 08:45 Dose: 1,000 mcg Dextrose (Dextrose 50% 50 Ml Syringe) 25 - 50 ml IV UD PRN; Protocol PRN Reason: Hypoglycemia Protocol Stop: 06/11/22 03:29 Duloxetine HCl (Duloxetine Hcl 60 Mg Cap) 60 mg PO QAM JAMEL Stop: 06/11/22 08:59 Last Admin: 05/16/22 08:45 Dose: 60 mg Ergocalciferol (Ergocalciferol 50,000 Units 1250 Mcg Cap) 50,000 units PO We@0900 JAMEL Stop: 06/16/22 08:59 Ferrous Sulfate (Ferrous Sulfate 325 Mg Tab) 325 mg PO DAILY JAMEL Stop: 06/11/22 08:59 Last Admin: 05/16/22 08:46 Dose: 325 mg Fluticasone Propionate (Fluticasone Propionate Na Spr 16 Gm Btl) 2 sprays NA DAILY JAMEL Stop: 06/11/22 08:59 Last Admin: 05/16/22 08:46 Dose: 2 sprays Gabapentin (Gabapentin 100 Mg Cap) 100 mg PO DAILY@0900,1400 JAMEL Stop: 06/11/22 08:59 Last Admin: 05/16/22 13:19 Dose: 100 mg Gabapentin (Gabapentin 100 Mg Cap) 200 mg PO HS JAMEL Stop: 06/11/22 20:59 Last Admin: 05/15/22 21:38 Dose: 200 mg Glucagon (Glucagon For Inj 1 Mg Vial) 1 mg IM UD PRN; Protocol PRN Reason: Hypoglycemia Protocol Stop: 06/11/22 03:29 Glucose (Glucose 40% Gel 15 Gm Tube) 15 - 30 gm PO UD PRN; Protocol PRN Reason: Hypoglycemia Protocol Stop: 06/11/22 03:29 Glucose (Glucose 10 Tab/Tube) 4 - 8 tab PO UD PRN; Protocol PRN Reason: Hypoglycemia Protocol Stop: 06/11/22 03:29 Heparin Sodium (Porcine) (Heparin Sod 5,000 Unit/0.5 Ml Vial) 5,000 units SQ Q8 JAMEL Stop: 06/11/22 05:59 Last Admin: 05/16/22 13:19 Dose: 5,000 units Insulin Aspart (Insulin Aspart Per Unit) 0 units SC ACHS JAMEL Stop: 06/11/22 07:29 Last Admin: 05/16/22 12:59 Dose: 2 units Lactobacillus Acidophilus (Advanced Probiotic 1250 Mg Capsule) 2 cap PO DAILY JAMEL Stop: 06/14/22 10:29 Last Admin: 05/16/22 08:46 Dose: 2 cap Levothyroxine Sodium (Levothyroxine Sodium 50 Mcg Tablet) 50 mcg PO DAILYBB JAMEL Stop: 06/11/22 06:29 Last Admin: 05/16/22 05:46 Dose: 50 mcg Lisinopril ([facility]op[facility] 5 Mg Tab) [facility]: 06/13/22 08:59 Last Admin: 05/16/22 08:46 Dose: 5 mg Loratadine (Loratadine 10 Mg Tab) 10 mg PO [facility] Stop: 06/11/22 20:59 Last Admin: 05/15/22 21:37 Dose: 10 mg Magnesium Oxide (Magnesium Oxide 400 Mg Tab) [facility] Stop: 06/11/22 08:59 Last Admin: 05/16/22 08:46 Dose: 400 mg Meclizine HCl (Meclizine Hcl 25 Mg Tab) 25 mg PO Q5H PRN PRN Reason: DIZZY Stop: 06/11/22 02:59 Last Admin: 05/14/22 10:04 Dose: 25 mg Metoprolol Succinate (Metoprolol Succ 50mg Ext Rel Tab) [facility] Stop: 06/11/22 08:59 Last Admin: 05/16/22 08:46 Dose: 50 mg Miscellaneous (Carbohydrates For Hypoglycemia ) 15 - 30 gm PO UD PRN PRN Reason: Hypoglycemia Treatment Stop: 06/11/22 03:29 Nortriptyline HCl (Nortriptyline Hcl 25 Mg Cap) 50 mg PO [facility] Stop: 06/11/22 20:59 Last Admin: 05/15/22 21:37 Dose: 50 mg Ondansetron HCl (Ondansetron 4 Mg Od Tab) 4 mg PO Q8H PRN PRN Reason: Nausea Stop: 06/11/22 02:59 Last Admin: 05/14/22 21:12 Dose: 4 mg Pantoprazole Sodium (Pantoprazole 40 Mg Tab) 40 mg PO [facility] Stop: 06/11/22 20:59 Last Admin: 05/15/22 21:35 Dose: 40 mg Polyethylene Glycol (Polyethylene (Miralax) 17 Gm Pack) 17 gm PO DAILY PRN PRN Reason: Constipation Stop: 06/11/22 02:59 Psyllium Hydrophilic Mucilloid (Psyllium Or Guar Gum Fiber Powder Packet) 1 pkt PO TID PRN PRN Reason: Constipation Stop: 06/11/22 03:19 Last Admin: 05/14/22 17:44 Dose: 1 pkt Sennosides (Senna 8.6 Mg Tab) 8.6 mg PO QAM JAMEL Stop: 06/14/22 10:59 Last Admin: 05/16/22 08:46 Dose: 8.6 mg Sumatriptan Succinate (Sumatriptan Succinate 100 Mg Tab) 100 mg PO DAILY PRN PRN Reason: Migraine Headache Stop: 06/11/22 02:59 Last Admin: 05/15/22 21:34 Dose: 100 mg
--- NOTE | 2022-05-16 14:16 | Discharge Summary ---
Date of Service May 16, 2022 Admission HPI Per Admitting Provider This is a 71-year-old female with past medical history significant for type 2 diabetes, diabetic polyneuropathy, hypothyroidism, hyperlipidemia, allergic rhinitis, hypertension, GERD, slow transit constipation, urinary incontinence, carpal tunnel syndrome, migraine variant, schizophrenia chronic condition, somatization disorder, anxiety state. The patient says she lives alone, ambulates with a walker. She has a caregiver who comes 4 hours a day. Since yesterday, she was feeling weak and somewhat dizzy, so she came to the hospital and found to have UTI. While resting in the bed, there is no dizziness. Denies any other complaints. Denies any fever or chills. No chest pain, no shortness of breath, no headache, no back pain, no abdominal pain, no nausea, no vomiting. Normal bowel and bladder movements. No swelling in the legs. No cough, no fevers. Appetite is okay. No difficulty swallowing. No blurred visions, no earache, no runny nose. Currently, resting comfortably and hemodynamically stable. Admission Exam Per Admitting Provider GENERAL: The patient is of moderate build, not in acute distress. VITAL SIGNS: Temperature 36.6, pulse 59, respiratory rate 18, blood pressure 179/87, oxygen 100% on room air. HEENT: Pupils equal, round, and reactive to light. Oral mucosa moist. NECK: No JVD, no neck masses. CARDIOVASCULAR: S1 and S2 heard. Regular rate and rhythm. No murmur, no gallop. RESPIRATORY SYSTEM: Normal AP diameter. No accessory muscle use. No wheezing, no crackles. ABDOMEN: Soft, bowel sounds present, nontender, no distention. CENTRAL NERVOUS SYSTEM: Cranial nerves II through XII are grossly intact, nonfocal. EXTREMITIES: No edema, no erythema. Principal Diagnosis UTI weakness Discharge Exam GENERAL: elderly thin F not in acute distress. HEENT: Pupils equal, round, and reactive to light. Oral mucosa moist. NECK: No JVD, no neck masses. CARDIOVASCULAR: S1 and S2 heard. Regular rate and rhythm. No murmur, no gallop. RESPIRATORY: Normal AP diameter. No accessory muscle use. No wheezing, no crackles. ABDOMEN: Soft, bowel sounds present, nontender, no distention. NEURO: Awake and alert EXTREMITIES: No edema, no erythema. Discharge Data Allergies Allergy/AdvReac Type Severity Reaction Status Date / Time Cephalosporins Allergy Intermediate Hallucinati Verified 05/12/22 00:28 ons Penicillins Allergy Intermediate Hives Verified 05/12/22 00:28 pollen extracts Allergy Intermediate seasonal Verified 05/12/22 00:28 allergy rizatriptan [From Maxalt] Allergy Unknown Unknown Verified 05/12/22 00:28 cyclobenzaprine AdvReac Intermediate neuro Verified 05/12/22 00:28 [From Flexeril] complications Consultations 05/11/22 23:54 ED Decision to Admit Stat Ordered Studies 05/11/22 21:34 CT head/brain wo con Urgent FINDINGS: No acute intracranial hemorrhage, midline shift or mass effect is present. The ventricular system is unremarkable. The basal cisterns are patent. No extra-axial collections are present. There are no findings to suggest acute dural sinus thrombosis or acute territorial infarct. Thinning/postoperative change of the right parietal bone is unchanged. Visualized portions of the sinuses and mastoid air cells are clear. IMPRESSION: No acute intracranial findings. No change in appearance of the brain. Hospital Course (1) Generalized weakness: (2) UTI (urinary tract infection): This is a 71-year-old female who presents with dizziness and weakness. 1. Weakness and dizziness, likely secondary to urinary tract infection: ER started on Invanz because of allergic to penicillins and cephalosporins. Continued the Invanz. Urine culture - positive for E.coli. (Resist. to cipro, levaquin, ampicilin) 05/15 Switched to PO cefdinir after discussing with pharmacy, pt is tolerating well Closely monitor in the medical floor. PT, OT - plan to DC to rehab ([facility]) 2. History of hyperlipidemia: Continue statin. 3. History of schizophrenia Chronic condition, somatization disorder, anxiety state. Continue her home medications. 4. Hypothyroidism. Continue Synthroid. 5. Diabetes: Hold metformin. Placed on insulin sliding scale. Current HbA1c 6.2% Follow the blood sugars 6. History of hypertension: Continue metoprolol succinate. BP elevated. Started lisinopril 5 mg daily. Follow BMP in 1 week. Monitor the blood pressure. 7. Migraine: On sumatriptan p.r.n. and riboflavin. 8. Gastroesophageal reflux disease: On omeprazole. 9. Slow transit constipation: On Metamucil. Total Time Total Time Spent Total Time Spent (In Minutes): 40 Discharge Plan Discharge Items Patient Disposition: Transfer Inpatient Rehab Fac Reason For Visit: WEAKNESS Discharge Diagnosis: UTI weakness Activity: Per Instructions section Non-emergency contact: Primary Care Provider Call non-emergency contact if: you have any medication questions and your symptoms worsen Follow-up/Referrals: Raymond Vann DO [Primary Care Provider] - Diet: Carb Consistent or DM2 Addtl Attending Provider Instructions: Follow-up with primary care doctor within 1 week. Finish antibiotic treatment for UTI, with cefdinir, as prescribed. Your blood pressure has been elevated, and so you were started on lisinopril in addition to your home metoprolol. Pending Studies at Discharge: No Stand-Alone Forms: My [facility] Skilled Items Patient informed of condition?: Yes DNR: No Discharge Level of Care: Acute rehab Communicable Disease: No Discharge Prognosis: Stable Lines: None Urinary Catheter: No Medications and DC Order Prescriptions: New cefdinir 300 mg Capsule 300 mg PO BID 3 Days Qty: 6 0RF sennosides [Senokot] 8.6 mg Tablet 8.6 mg PO QAM 10 Days Qty: 10 0RF Advanced Probiotic 625 mg (10 billion cell) Capsule 2 cap PO DAILY Qty: 10 0RF lisinopril [Zestril] 5 mg Tablet 5 mg PO QAM 30 Days Qty: 30 0RF Continued nortriptyline [Pamelor] 25 mg capsule 50 mg PO HS levothyroxine [Synthroid] 50 mcg tablet 50 mcg PO DAILYBB omeprazole 20 mg capsule,delayed release(DR/EC) 40 mg PO HS Rx Instructions: 2 capsule dose duloxetine [Cymbalta] 60 mg capsule,delayed release(DR/EC) 60 mg PO QAM atorvastatin 20 mg Tablet 20 mg PO PM sumatriptan succinate 100 mg Tablet 100 mg PO DIRECTED PRN (Reason: Migraine Headache) Rx Instructions: TAKE 1 TAB BY MOUTH, MAY REPEAT IN 2 HOURS IF NOT EFFECTIVE, NO MORE THAN 2 TABS IN 24 HOURS OR 4 IN ONE WEEK. loratadine [Claritin] 10 mg Tablet 10 mg PO HS magnesium oxide 400 mg magnesium Tablet 400 mg PO QAM gabapentin 100 mg capsule See Rx Instructions .ROUTE .COMPLEX Rx Instructions: 100 MG ORALLY; TAKE 100 MG QAM AND AT 1400, THEN 200 MG AT HS. clozapine 25 mg tablet 50 mg PO QAM metoprolol succinate 50 mg tablet extended release 24 hr 50 mg PO QAM clozapine 100 mg tablet 300 mg PO HS Qty: 30 0RF riboflavin (vitamin B2) 400 mg tablet 400 mg PO QAM metformin 500 mg tablet 500 mg PO QAM Rx Instructions: take with breakfast cyanocobalamin (vitamin B-12) [Vitamin B-12] 1,000 mcg Tablet 1,000 mcg PO DAILY Metamucil Smooth Texture S/F Powder 1 tbsp PO TID PRN (Reason: Constipation) Rx Instructions: MAY TAKE UP TO 3 TIMES PER DAY. Vitron-C 65 mg iron- 125 mg Tablet,Delayed Release (Dr/Ec) 1 tab PO DAILY loperamide [Imodium] 2 mg Capsule 2 mg PO QID PRN (Reason: Diarrhea) meclizine 25 mg Tablet 25 mg PO .Q5HRS PRN (Reason: DIZZY) ondansetron 4 mg Tablet,Disintegrating 4 mg PO Q8H PRN (Reason: Nausea) fluticasone propionate [Flonase Allergy Relief] 50 mcg/actuation [place],Suspension 2 spray INTRANASAL DAILY cholecalciferol (vitamin D3) 1,250 mcg (50,000 unit) capsule 1,250 mcg PO WK Rx Instructions: wednesdays aspirin [Aspirin Childrens] 81 mg Tablet,Chewable 81 mg PO DAILY Discharge Orders: Discharge Order (Routine); Ordered 05/16/22 Ordered By: Bunny He/Other Patient Handouts: Managing Type 2 Diabetes Admission Data Admit Date/Time: 05/12/22 01:20 Attending Provider: Bunny Cagle Admit Provider: Bhavesh Hickman Primary Care Provider: Raymond Vann Other Providers: Bhavesh Hickman ; Radha Young ; Rigo Franks ; [facility]
[2022-05-16] MEDS ORDERED: cloZAPine 100 MG TAB PO ONE (16:00)
[2022-05-17] MEDS ORDERED: ERGOCALCIFEROL 50,000 UNITS 1250 MCG CAP PO SCH (09:00)
== END 2022-05-16 16:44 | DRG 690 ==
LOC: ED 20:18 → SUATTDRO 05-12 01:20 → 3W 05-12 01:20

== ENCOUNTER 2022-05-28 17:31 | Inpatient (IN) ==
--- NOTE | 2022-05-28 17:48 | Emergency Department Note ---
Impression & Plan COVID-19, Non-ST elevation PA (NSTEMI), LAURI (acute kidney injury), Acute confusion ED Provider Note HISTORY OF PRESENT ILLNESS: Patient is a 71-year-old female presenting with lethargy and hypoxia. She presents from [facility]. She reportedly tested positive for COVID yest moises. Was found today to be much more lethargic than normal. They called 911. On arrival of EMS, patient was noted to be saturating 75% on room air. They inserted a nasopharyngeal airway and bagged the patient with improvement of her saturations. She is currently on 2 L nasal cannula. Patient is very confused and lethargic and unable to participate in her own exam or history. ROS: Patient currently has altered mental status and is unable to provide accurate information regarding ROS, histories, meds, or allergies. Any information regarding ROS, Past medical or surgical history, social or family history documented below has been obtained from the EMR. Any additional history regarding this cannot be obtained presently due to her medical condition. PHYSICAL EXAM: Constitutional: Patient appears in no acute distress. HENT: Head: Normocephalic and atraumatic. Eyes: EOMI, PERRL Mouth/Throat: Mucous membranes moist. Neck: Trachea midline. Neck supple. Cardiovascular: RRR, No murmurs, rubs or gallops. Intact distal pulses. Pulmonary/Chest: No respiratory distress. Breath sounds clear and equal bilaterally. No wheezes or rales. Abdominal: BS +. Abdomen soft, no tenderness, rebound or guarding. Back: No midline spinal tenderness, no paraspinal tenderness, no CVA tenderness. Musculoskeletal: No edema, tenderness or deformity noted. Skin: Warm and dry. Psychiatric: Unable to assess. Neurological: Patient is lethargic. Spontaneously moves all extremities. Response to painful stimulus. Gag reflex intact. MDM: - Vitals signs stable. On 2L NC, which is new for patient. - Laboratory workup showed normal WBC; stable electrolytes; LAURI (Cr 1.18 - baseline around 0.85); slight transaminitis (AST 56; ALT 72 - likely due to viral syndrome); NSTEMI (trop 20.9 - likely Type II); normal procalcitonin - ABG shows hypoxia (PO2 64) - Patient tested positive for COVID. - CXR showed cardiomegaly without any other acute cardiopulmonary pathology - CT head wo contrast negative for acute intracranial pathology. - Hospitalist Dr. Hickman consulted for admission. - Patient admitted to hospitalist service for further evaluation and management. ASSESSMENT AND PLAN: Diagnosis: lethargy; confusion; COVID-19 infection; LAURI; transaminitis; NSTEMI Plan: admit Past Med/Surg History Medical History (Updated 05/28/22 @ 20:01 by Karla Hilton MD) Anxiety Dehydration Dizziness DM2 (diabetes mellitus, type 2) GERD (gastroesophageal reflux disease) Well controlled with medication Headache HLD (hyperlipidemia) Hypertension Hypothyroidism Migraine Nausea Neuropathy Schizophrenia Somatization disorder Vertigo Surgical History H/O bilateral cataract extraction H/O brain surgery "abt 1969 R parietal exploration for benign lesion" H/O cystoscopy H/O foot surgery History of cataract surgery History of colonoscopy History of craniotomy 1969, IN [place] D/T HEADACHE---FOLLOWS W DR. MICHAEL History of tonsillectomy History of tooth extraction WISDOM TEETH S/P foot surgery, left X2 S/P foot surgery, right X2 Family History Grandmother Family history of diabetes mellitus PATERNAL Family/Other Family history of diabetes mellitus UNCLE Father Parkinson disease Mother CHF (congestive heart failure) Social History Smoking Status: Never smoker Second Hand Exposure: Yes (FATHER SMOKED); Hx Alcohol Use: No Hx Substance Use: No Preferred Language: Yi Communication Ability: Effective Outdoor Advertising Leasing Agent Required: No Beliefs That Will Affect Care: Hindu Hindu Beliefs: RESTORATIONIST marital status: Single Current Living Situation: Alone Current Living Situation Comment: 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 How many Children do You have: 0 Feels Safe at Home: Yes Assistive Devices: Walker Allergies Allergies Allergy/AdvReac Type Severity Reaction Status Date / Time Cephalosporins Allergy Intermediate Hallucinati Verified 05/12/22 00:28 ons Penicillins Allergy Intermediate Hives Verified 05/12/22 00:28 pollen extracts Allergy Intermediate seasonal Verified 05/12/22 00:28 allergy rizatriptan [From Maxalt] Allergy Unknown Unknown Verified 05/12/22 00:28 cyclobenzaprine AdvReac Intermediate neuro Verified 05/12/22 00:28 [From Flexeril] complications Home Meds Home Medications Medication Instructions Recorded Confirmed duloxetine 60 mg capsule,delayed 60 mg PO QAM 04/14/18 05/12/22 release (Cymbalta) levothyroxine 50 mcg tablet 50 mcg PO DAILYBB 04/14/18 05/12/22 (Synthroid) nortriptyline 25 mg capsule 50 mg PO HS 04/14/18 05/12/22 (Pamelor) omeprazole 20 mg capsule,delayed 40 mg PO HS 04/14/18 05/12/22 release loratadine 10 mg tablet (Claritin) 10 mg PO HS 03/25/19 05/12/22 magnesium oxide 400 mg PO QAM 03/25/19 05/12/22 atorvastatin 20 mg tablet 20 mg PO PM 11/22/19 05/12/22 sumatriptan succinate 100 mg tablet 100 mg PO DIRECTED PRN Migraine 11/22/19 05/11/22 Headache gabapentin 100 mg capsule See Rx Instructions .Route .COMPLEX 10/16/20 05/12/22 clozapine 25 mg tablet 50 mg PO QAM 11/06/20 05/12/22 metformin 500 mg tablet 500 mg PO QAM 02/24/21 05/12/22 riboflavin (vitamin B2) 400 mg 400 mg PO QAM 02/24/21 05/12/22 tablet metoprolol succinate 50 mg 50 mg PO QAM 04/15/21 05/12/22 tablet,extended release 24 hr cyanocobalamin (vitamin B-12) 1,000 mcg PO DAILY 05/17/21 05/12/22 1,000 mcg tablet (Vitamin B-12) iron,carbonyl 65 mg-vitamin C 125 1 tab PO DAILY 05/17/21 05/12/22 mg tablet,delayed release (Vitron-C) psyllium 1 tbsp PO TID PRN Constipation 05/17/21 05/12/22 fluticasone propionate 50 2 spray intranasal DAILY 07/13/21 05/12/22 mcg/actuation nasal spray,suspension (Flonase Allergy Relief) loperamide 2 mg capsule 2 mg PO QID PRN Diarrhea 07/13/21 05/12/22 meclizine 25 mg tablet 25 mg PO .Q5HRS PRN DIZZY 07/13/21 05/12/22 ondansetron 4 mg disintegrating 4 mg PO Q8H PRN Nausea 07/13/21 05/11/22 tablet cholecalciferol (vitamin D3) 1,250 1,250 mcg PO WK 05/11/22 05/12/22 mcg (50,000 unit) capsule aspirin 81 mg chewable tablet 81 mg PO DAILY 05/12/22 05/12/22 (Aspirin Childrens) Previous Rx's Medication Instructions Recorded clozapine 100 mg tablet 300 mg PO HS #30 tabs 04/15/21 L.acidop,casei,lactis,rham-B.lact,dwight 2 cap PO DAILY #10 caps 05/16/22 625 mg (10 billion cell) capsule (Advanced Probiotic) lisinopril 5 mg tablet (Zestril) 5 mg PO QAM 30 days #30 tabs 05/16/22 Results & Data (ED) Vital Signs Vital Signs - 24 hr 05/28/22 17:37 05/28/22 17:43 05/28/22 18:02 Temperature 36.6 C Temperature Source Oral Pulse Rate 63 Pulse Rate [Right Finger] 63 63 Pulse Rhythm [Right Finger] Pulse Strength [Right Finger] Respiratory Rate Respiratory Effort / Characteristics Respiratory Depth Respiratory Pattern Blood Pressure [Right Arm] 93/48 L 95/47 L Blood Pressure Mean [Right Arm] 63 63 Blood Pressure Position [Right Arm] Pulse Oximetry 93 92 92 Oxygen Delivery Method Nasal Cannula Room Air Room Air Oxygen Flow Rate 2 Sepsis Recent Fever Within 48 Hours Yes Sepsis New/Unexplained Change in Mental Status No Sepsis Action Taken by Nursing No Action Required Pulse Oximetry Post Tiitration 05/28/22 18:40 05/28/22 18:40 05/28/22 18:40 Temperature Temperature Source Pulse Rate Pulse Rate [Right Finger] 65 Pulse Rhythm [Right Finger] Pulse Strength [Right Finger] Respiratory Rate 17 Respiratory Effort / Characteristics Respiratory Depth Respiratory Pattern Blood Pressure [Right Arm] 101/47 L Blood Pressure Mean [Right Arm] 65 Blood Pressure Position [Right Arm] Pulse Oximetry 93 93 Oxygen Delivery Method Room Air Room Air Room Air Oxygen Flow Rate Sepsis Recent Fever Within 48 Hours Sepsis New/Unexplained Change in Mental Status Sepsis Action Taken by Nursing Pulse Oximetry Post Tiitration 93 05/28/22 18:57 Temperature Temperature Source Pulse Rate Pulse Rate [Right Finger] 67 Pulse Rhythm [Right Finger] Regular Pulse Strength [Right Finger] Normal Respiratory Rate 16 Respiratory Effort / Characteristics Non-Labored Spontaneous Respiratory Depth Normal Respiratory Pattern Regular Blood Pressure [Right Arm] 116/59 L Blood Pressure Mean [Right Arm] 78 Blood Pressure Position [Right Arm] Lying Pulse Oximetry 92 Oxygen Delivery Method Room Air Oxygen Flow Rate Sepsis Recent Fever Within 48 Hours Sepsis New/Unexplained Change in Mental Status Sepsis Action Taken by Nursing Pulse Oximetry Post Tiitration Laboratory Data Result diagrams: 05/28/22 17:49 05/28/22 17:49 Lab Results 05/28/22 05/28/22 05/28/22 Range/Units 17:49 17:49 17:49 WBC 8.02 (4.8-10.8) K/ul RBC 3.79 L (3.93-5.22) M/uL Hgb 11.5 L (12.0-16.0) g/dl Hct 34.5 (34.1-44.9) % MCV 91.0 (80.0-100.0) fL MCH 30.3 (25.0-34.0) pg MCHC 33.3 (32.0-36.0) g/dL RDW Std Deviation 50.1 H (36.4-46.3) fL RDW Coeff of Cyn 15.1 H (11.5-14.5) % Plt Count 131 (130-400) K/uL MPV 11.0 (9.4-12.3) fL Immature Gran % (Auto) 0.5 % Neut % (Auto) 81.6 % Lymph % (Auto) 9.6 % Taney % (Auto) 8.1 % Eos % (Auto) 0.0 % Baso % (Auto) 0.2 % Neut # (Auto) 6.54 H (1.4-6.5) K/uL Lymph # (Auto) 0.77 L (1.2-3.4) K/uL Taney # (Auto) 0.65 (0.24-0.82) K/uL Eos # (Auto) 0.00 (0-0.50) K/uL Baso # (Auto) 0.02 (0-0.2) K/uL Immature Gran # (Auto) 0.04 H (0.00-0.02) K/uL ABG pH (7.35-7.45) ABG pCO2 (35-46) mmHg ABG pO2 (80-95) mmHg ABG HCO3 (19-24) mmol/L ABG O2 Saturation (90-95) % ABG Base Excess (-9-1.8) mEq/L Jonas Test (Pos) Oxygen Given Sodium 132 L (136-145) mmol/L Potassium 4.0 (3.5-5.1) mmol/L Chloride 98 (98-107) mmol/L Carbon Dioxide 25 (21-32) mmol/L Anion Gap 9 (3-11) BUN 32 H (6-23) mg/dl Creatinine 1.18 (0.6-1.2) mg/dl Est Cr Clr Drug Dosing 38.8 ml/min Est GFR ( Amer) 53.4 ml/min Est GFR (Non-Af Amer) 46.0 ml/min BUN/Creatinine Ratio 27.1 H (10-20) Glucose 171 H (70-99(Fasting)) mg/dl Lactate (0.4-2.0) mmol/L Calcium 8.8 (8.5-10.1) mg/dl Magnesium 1.8 (1.7-2.4) mg/dl Total Bilirubin 0.4 (0.2-1.0) mg/dl Direct Bilirubin 0.1 (0-0.2) mg/dl AST 56 H (13-39) U/L ALT 72 H (7-52) U/L Alkaline Phosphatase 55 (34-104) U/L Troponin I High Sens 20.9 H D (0-14) pg/ml Total Protein 5.9 L (6.0-8.3) gm/dl Albumin 3.6 (3.4-5.0) gm/dl Procalcitonin 0.25 (0-0.5) ng/ml SARS-CoV-2 (PCR) (Negative) Influenza Type A (PCR) (Neg) Influenza Type B (PCR) (Neg) RSV (RT-PCR) (Neg) 05/28/22 05/28/22 05/28/22 Range/Units 18:07 18:08 18:08 WBC (4.8-10.8) K/ul RBC (3.93-5.22) M/uL Hgb (12.0-16.0) g/dl Hct (34.1-44.9) % MCV (80.0-100.0) fL MCH (25.0-34.0) pg MCHC (32.0-36.0) g/dL RDW Std Deviation (36.4-46.3) fL RDW Coeff of Cyn (11.5-14.5) % Plt Count (130-400) K/uL MPV (9.4-12.3) fL Immature Gran % (Auto) % Neut % (Auto) % Lymph % (Auto) % Taney % (Auto) % Eos % (Auto) % Baso % (Auto) % Neut # (Auto) (1.4-6.5) K/uL Lymph # (Auto) (1.2-3.4) K/uL Taney # (Auto) (0.24-0.82) K/uL Eos # (Auto) (0-0.50) K/uL Baso # (Auto) (0-0.2) K/uL Immature Gran # (Auto) (0.00-0.02) K/uL ABG pH 7.41 (7.35-7.45) ABG pCO2 37 (35-46) mmHg ABG pO2 64 L (80-95) mmHg ABG HCO3 24 (19-24) mmol/L ABG O2 Saturation 92.8 (90-95) % ABG Base Excess -0.8 (-9-1.8) mEq/L Jonas Test POS (Pos) Oxygen Given 2 l Sodium (136-145) mmol/L Potassium (3.5-5.1) mmol/L Chloride (98-107) mmol/L Carbon Dioxide (21-32) mmol/L Anion Gap (3-11) BUN (6-23) mg/dl Creatinine (0.6-1.2) mg/dl Est Cr Clr Drug Dosing ml/min Est GFR ( Amer) ml/min Est GFR (Non-Af Amer) ml/min BUN/Creatinine Ratio (10-20) Glucose (70-99(Fasting)) mg/dl Lactate 2.0 (0.4-2.0) mmol/L Calcium (8.5-10.1) mg/dl Magnesium (1.7-2.4) mg/dl Total Bilirubin (0.2-1.0) mg/dl Direct Bilirubin (0-0.2) mg/dl AST (13-39) U/L ALT (7-52) U/L Alkaline Phosphatase (34-104) U/L Troponin I High Sens (0-14) pg/ml Total Protein (6.0-8.3) gm/dl Albumin (3.4-5.0) gm/dl Procalcitonin (0-0.5) ng/ml SARS-CoV-2 (PCR) POSITIVE A* (Negative) Influenza Type A (PCR) Negative (Neg) Influenza Type B (PCR) Negative (Neg) RSV (RT-PCR) Negative (Neg) Administered Medications Discontinued Medications Sodium Chloride (Nss 1000ml) 1,000 mls @ 999 mls/hr IV .Q1H1M JAMLE Stop: 05/28/22 19:00 Last Infusion: 05/28/22 19:15 Dose: 0 mls/hr Documented By: Admin: 05/28/22 18:11 Dose: 999 mls/hr Documented By: [facility] [place] Imaging Data Radiologist's Impression: Chest X-Ray 05/28/22 17:47 XR chest 1V portable HISTORY: 71 years-old Female Sepsis acute sepsis COMPARISON: 07/13/2021 TECHNIQUE: AP view of the chest FINDINGS: Cardiac silhouette is mildly enlarged. Atherosclerosis of the aorta. No pneumothorax, pleural effusion, airspace consolidation or overt pulmonary edema. Bones of the chest appear grossly intact. IMPRESSION: Cardiomegaly without acute process. ACT 112: Negative or not required by law. The above report was generated using voice recognition software. It may contain grammatical, syntax or spelling errors. Electronically signed by: Live Mancera M.D. 05/28/2022 6:[address] 05/28/22 17:48 CT head/brain wo con CLINICAL HISTORY: 71 years-old Female with Altered mental status. Acutely altered mental status TECHNIQUE: Multiple axial CT images of the head were obtained without contrast. A dose lowering technique was utilized adhering to the principles of ALARA. CT DOSE: 691.05 mGy.cm COMPARISON: Head CT 05/11/2022 FINDINGS: No acute intracranial hemorrhage, midline shift, intracranial mass, hydrocephalus, territorial ischemia or abnormal extra-axial collection. Involutional changes with white matter hypodensities suggestive of chronic micro vascular ischemic disease. Cerebral vascular calcifications. Chronic right parietal calvarial deformity. No acute calvarial fracture identified. Mastoid air cells and paranasal sinuses are clear. Partially imaged tube within the nasopharynx. Prior bilateral lens repair. The paranasal sinuses, mastoid air cells, and middle ear cavities are clear. IMPRESSION: No acute intracranial abnormality. ACT 112: Negative or not required by law. The above report was generated using voice recognition software. It may contain grammatical, syntax or spelling errors. Electronically signed by: Live Mancera M.D. 05/28/2022 7:11 PM Discharge Plan Visit Data Chief Complaint: Lethargic Stated Complaint: LETHARGIC ED Provider: Karla Hilton Discharge Problem: COVID-19, Non-ST elevation PA (NSTEMI), LAURI (acute kidney injury), Acute confusion Patient Disposition: Admitted As Inpatient Forms Stand Alone Forms: [facility] Prescriptions Prescriptions: No Action nortriptyline [Pamelor] 25 mg capsule 50 mg PO HS levothyroxine [Synthroid] 50 mcg tablet 50 mcg PO DAILYBB omeprazole 20 mg capsule,delayed release(DR/EC) 40 mg PO HS Rx Instructions: 2 capsule dose duloxetine [Cymbalta] 60 mg capsule,delayed release(DR/EC) 60 mg PO QAM atorvastatin 20 mg Tablet 20 mg PO PM sumatriptan succinate 100 mg Tablet 100 mg PO DIRECTED PRN (Reason: Migraine Headache) Rx Instructions: TAKE 1 TAB BY MOUTH, MAY REPEAT IN 2 HOURS IF NOT EFFECTIVE, NO MORE THAN 2 TABS IN 24 HOURS OR 4 IN ONE WEEK. loratadine [Claritin] 10 mg Tablet 10 mg PO HS magnesium oxide 400 mg magnesium Tablet 400 mg PO QAM gabapentin 100 mg capsule See Rx Instructions .ROUTE .COMPLEX Rx Instructions: 100 MG ORALLY; TAKE 100 MG QAM AND AT 1400, THEN 200 MG AT HS. clozapine 25 mg tablet 50 mg PO QAM metoprolol succinate 50 mg tablet extended release 24 hr 50 mg PO QAM clozapine 100 mg tablet 300 mg PO HS Qty: 30 0RF riboflavin (vitamin B2) 400 mg tablet 400 mg PO QAM metformin 500 mg tablet 500 mg PO QAM Rx Instructions: take with breakfast cyanocobalamin (vitamin B-12) [Vitamin B-12] 1,000 mcg Tablet 1,000 mcg PO DAILY psyllium Powder 1 tbsp PO TID PRN (Reason: Constipation) Rx Instructions: MAY TAKE UP TO 3 TIMES PER DAY. Vitron-C 65 mg iron- 125 mg Tablet,Delayed Release (Dr/Ec) 1 tab PO DAILY loperamide 2 mg Capsule 2 mg PO QID PRN (Reason: Diarrhea) meclizine 25 mg Tablet 25 mg PO .Q5HRS PRN (Reason: DIZZY) ondansetron 4 mg Tablet,Disintegrating 4 mg PO Q8H PRN (Reason: Nausea) fluticasone propionate [Flonase Allergy Relief] 50 mcg/actuation [place],Suspension 2 spray INTRANASAL DAILY cholecalciferol (vitamin D3) 1,250 mcg (50,000 unit) capsule 1,250 mcg PO WK Rx Instructions: wednesdays aspirin [Aspirin Childrens] 81 mg Tablet,Chewable 81 mg PO DAILY Advanced Probiotic 625 mg (10 billion cell) Capsule 2 cap PO DAILY Qty: 10 0RF lisinopril [Zestril] 5 mg Tablet 5 mg PO QAM 30 Days Qty: 30 0RF Referrals Referrals: Raymond Vann DO [Family Provider] -
[2022-05-28] MEDS ORDERED: SODIUM CHLORIDE 0.9% 1000ML 1,000 ML IV SCH (18:00)
[2022-05-28 18:03] LABS: Basophils # (auto) 0.02 K/uL (0-0.2); Basophils % (auto) 0.2 %; Hematocrit (blood only) 34.5 % (34.1-44.9); Hemoglobin 11.5 g/dl (12.0-16.0); Immature Granulocytes # (auto) 0.04 K/uL (0.00-0.02); Immature Granulocytes % (auto) 0.5 %; Lymphocytes # (auto) 0.77 K/uL (1.2-3.4); Lymphocytes % (auto) 9.6 %; Mean Corpuscular Hemoglobin 30.3 pg (25.0-34.0); Mean Corpuscular Hgb Conc 33.3 g/dL (32.0-36.0); Monocytes # (auto) 0.65 K/uL (0.24-0.82); Monocytes % (auto) 8.1 %; Neutrophils # (auto) 6.54 K/uL (1.4-6.5); Neutrophils % (auto) 81.6 %; Platelet Count 131 K/uL (130-400); RDW Coefficient of Variation 15.1 % (11.5-14.5); RDW Standard Deviation 50.1 fL (36.4-46.3); Red Blood Count 3.79 M/uL (3.93-5.22); White Blood Count 8.02 K/ul (4.8-10.8)
[2022-05-28 18:22] LABS: Base Excess ABG -0.8 mEq/L (-9-1.8); HCO3 ABG 24 mmol/L (19-24); Oxygen Saturation ABG 92.8 % (90-95); PCO2 ABG 37 mmHg (35-46); PO2 ABG 64 mmHg (80-95); pH ABG 7.41 (7.35-7.45)
[2022-05-28 18:26] LABS: Albumin Level 3.6 gm/dl (3.4-5.0); BUN Creatinine Ratio 27.1 (10-20); Bilirubin Direct 0.1 mg/dl (0-0.2); Bilirubin,Total 0.4 mg/dl (0.2-1.0); Calcium 8.8 mg/dl (8.5-10.1); Creatinine Clr Calc Pharmacy 38.8 ml/min; Est GFR (African American) 53.4 ml/min; Magnesium 1.8 mg/dl (1.7-2.4); Total Protein 5.9 gm/dl (6.0-8.3)
[2022-05-28 18:32] LABS: Troponin I High Sensitivity 20.9 pg/ml (0-14)
[2022-05-28 18:42] LABS: Allen Test POS (Pos)
[2022-05-28 18:58] LABS: Influenza A virus by PCR Negative (Neg); Influenza B virus by PCR Negative (Neg); RSV by PCR Negative (Neg)
--- NOTE | 2022-05-28 18:59 | XRay Report ---
XR chest 1V portable HISTORY: 71 years-old Female Sepsis acute sepsis COMPARISON: 07/13/2021 TECHNIQUE: AP view of the chest FINDINGS: Cardiac silhouette is mildly enlarged. Atherosclerosis of the aorta. No pneumothorax, pleural effusio n, airspace consolidation or overt pulmonary edema. Bones of the chest appear grossly intact. IMPRESSION: Cardiomegaly without acute process. ACT 112: Negative or not required by law. The above report was generated using voice recognition software. It may contain grammatical, syntax o r spelling errors. Electronically signed by: Live Mancera M.D. 05/28/2022 6:57 PM
[2022-05-28 19:03] LABS: SARS CoV2 RNA(COVID-19) Ceph POSITIVE (Negative)
--- NOTE | 2022-05-28 19:13 | CT Scan Report ---
CT head/brain wo con CLINICAL HISTORY: 71 years-old Female with Altered mental status. Acutely altered mental status TECHNIQUE: Multiple axial CT images of the head were obtained without contrast. A dose lowering tech nique was utilized adhering to the principles of ALARA. CT DOSE: 691.05 mGy.cm COMPARISON: Head CT 05/11/2022 FINDINGS: No acute intracranial hemorrhage, midline shift, intracranial mass, hydrocephalus, territorial ischem ia or abnormal extra-axial collection. Involutional changes with white matter hypodensities suggestiv e of chronic microvascular ischemic disease. Cerebral vascular calcifications. Chronic right parietal calvarial deformity. No acute calvarial fracture identified. Mastoid air cells and paranasal sinuses are clear. Partially imaged tube within the nasopharynx. Prior bilateral lens repair. The paranasal sinuses, mastoid air cells, and middle ear cavities are clear. IMPRESSION: No acute intracranial abnormality. ACT 112: Negative or not required by law. The above report was generated using voice recognition software. It may contain grammatical, syntax o r spelling errors. Electronically signed by: Live Mancera M.D. 05/28/2022 7:11 PM
--- NOTE | 2022-05-28 20:16 | History & Physical Report ---
Date of Service May 28, 2022 Assessment & Plan (1) Acute metabolic encephalopathy: (2) COVID-19: (3) Generalized weakness: (4) DM2 (diabetes mellitus, type 2): (5) Hypertension: (6) Migraine: (7) Anxiety: (8) Hypothyroidism: (9) Schizophrenia: (10) Somatization disorder: (11) HLD (hyperlipidemia): Plan This is a 71-year-old female with past medical history significant for type 2 diabetes, diabetic polyneuropathy, hypothyroidism, hyperlipidemia, allergic rhinitis, hypertension, GERD, slow transit constipation, urinary incontinence, migraines, schizophrenia, somatization disorder, anxiety who presents from [facility] with confusion and was found to have COVID-19 infection. Metabolic encephalopathy COVID-19 infection Afebrile, hemodynamically stable, no leukocytosis, lactate and procalcitonin within normal limits, urine unremarkable Saturating at 92% on room air Supportive care, monitor closely Head CT without any acute intracranial abnormalities, CXR without acute process Elevated LFTs Slightly elevated of AST and ALT on lab work today No abdominal discomfort on exam Repeat CMP in a.m., consider abdominal imaging if no improvement Hyperlipidemia Continue statin Schizophrenia Somatization disorder Anxiety state Continue Clozapine, duloxetine Hypothyroidism Continue Synthroid DM II Hold metformin. Placed on insulin sliding scale.Current HbA1c 6.2%. BSG AC HS Hypertension Continue metoprolol succinate, recently added lisinopril Migraine On sumatriptan p.r.n. and riboflavin Slow transit constipation On Metamucil DVT Ppx: SQ heparin Code status: FULL PCP: Polo Vann Dispo: Admitted to [facility] Patient seen in collaboration with Dr. Hickman. Please see addendum. History of Present Illness Chief Complaint: confusion Primary Care Provider: [facility] This is a 71-year-old female with past medical history significant for type 2 diabetes, diabetic polyneuropathy, hypothyroidism, hyperlipidemia, allergic rhinitis, hypertension, GERD, slow transit constipation, urinary incontinence, migraines, schizophrenia, somatization disorder, anxiety who presents from [facility] with confusion. Was admitted earlier this month for E. coli UTI was resistant to Cipro, Levaquin and ampicillin. Was discharged to [facility] on Cefdinir 04/14/2022. During interview this evening, patient is confused and lethargic, only able to answer yes or no questions. Is alert and oriented to self only. Endorses feeling fatigued and having a headache and cough. Denies fever, chills, chest pain, abdominal pain, nausea or vomiting. Unable to obtain remainder of ROS due to cognitive state. Allergies Allergy/AdvReac Type Severity Reaction Status Date / Time Cephalosporins Allergy Intermediate Hallucinati Verified 05/28/22 19:58 ons Penicillins Allergy Intermediate Hives Verified 05/28/22 19:58 pollen extracts Allergy Intermediate seasonal Verified 05/28/22 19:58 allergy rizatriptan [From Maxalt] Allergy Unknown Unknown Verified 05/28/22 19:58 cyclobenzaprine AdvReac Intermediate neuro Verified 05/28/22 19:58 [From Flexeril] complications Home Medications Medication Instructions Recorded Confirmed Type duloxetine 60 mg capsule,delayed 60 mg PO QAM 04/14/18 05/28/22 History release (Cymbalta) levothyroxine 50 mcg tablet 50 mcg PO DAILYBB 04/14/18 05/28/22 History (Synthroid) nortriptyline 25 mg capsule 50 mg PO HS 04/14/18 05/28/22 History (Pamelor) omeprazole 20 mg capsule,delayed 40 mg PO HS 04/14/18 05/28/22 History release loratadine 10 mg tablet (Claritin) 10 mg PO HS 03/25/19 05/28/22 History magnesium oxide 400 mg PO QAM 03/25/19 05/28/22 History atorvastatin 20 mg tablet 20 mg PO PM 11/22/19 05/28/22 History sumatriptan succinate 100 mg tablet 100 mg PO DIRECTED PRN Migraine 11/22/19 05/28/22 History Headache gabapentin 100 mg capsule See Rx Instructions .Route .COMPLEX 10/16/20 05/28/22 History clozapine 25 mg tablet 50 mg PO QAM 11/06/20 05/28/22 History metformin 500 mg tablet 500 mg PO QAM 02/24/21 05/28/22 History riboflavin (vitamin B2) 400 mg 400 mg PO QAM 02/24/21 05/28/22 History tablet clozapine 100 mg tablet 300 mg PO HS #30 tabs 04/15/21 05/28/22 Rx metoprolol succinate 50 mg 50 mg PO QAM 04/15/21 05/28/22 History tablet,extended release 24 hr cyanocobalamin (vitamin B-12) 1,000 mcg PO DAILY 05/17/21 05/28/22 History 1,000 mcg tablet (Vitamin B-12) iron,carbonyl 65 mg-vitamin C 125 1 tab PO DAILY 05/17/21 05/28/22 History mg tablet,delayed release (Vitron-C) psyllium 1 tbsp PO TID PRN Constipation 05/17/21 05/28/22 History fluticasone propionate 50 2 spray intranasal DAILY 07/13/21 05/28/22 History mcg/actuation nasal spray,suspension (Flonase Allergy Relief) loperamide 2 mg capsule 2 mg PO QID PRN Diarrhea 07/13/21 05/28/22 History meclizine 25 mg tablet 25 mg PO .Q5HRS PRN DIZZY 07/13/21 05/28/22 History ondansetron 4 mg disintegrating 4 mg PO Q8H PRN Nausea 07/13/21 05/28/22 History tablet cholecalciferol (vitamin D3) 1,250 1,250 mcg PO WK 05/11/22 05/28/22 History mcg (50,000 unit) capsule aspirin 81 mg chewable tablet 81 mg PO DAILY 05/12/22 05/28/22 History (Aspirin Childrens) L.acidop,casei,lactis,rham-B.lact,dwight 2 cap PO DAILY #10 caps 05/16/22 05/28/22 Rx 625 mg (10 billion cell) capsule (Advanced Probiotic) lisinopril 5 mg tablet (Zestril) 5 mg PO QAM 30 days #30 tabs 05/16/22 05/28/22 Rx Past Med/Surg History Medical History (Updated 05/29/22 @ 00:47 by Radha Young PA-C) Anxiety Dehydration Dizziness DM2 (diabetes mellitus, type 2) GERD (gastroesophageal reflux disease) Well controlled with medication Headache HLD (hyperlipidemia) Hypertension Hypothyroidism Migraine Nausea Neuropathy Schizophrenia Somatization disorder Vertigo Surgical History H/O bilateral cataract extraction H/O brain surgery "abt 1969 R parietal exploration for benign lesion" H/O cystoscopy H/O foot surgery History of cataract surgery History of colonoscopy History of craniotomy 1969, IN [place] D/T HEADACHE---FOLLOWS W DR. MICHAEL History of tonsillectomy History of tooth extraction WISDOM TEETH S/P foot surgery, left X2 S/P foot surgery, right X2 Family History Grandmother Family history of diabetes mellitus PATERNAL Family/Other Family history of diabetes mellitus UNCLE Father Parkinson disease Mother CHF (congestive heart failure) Social History Smoking Status: Never smoker Second Hand Exposure: Yes (FATHER SMOKED); Hx Alcohol Use: No Hx Substance Use: No Preferred Language: Thai Communication Ability: Effective Blade Changer Required: No Beliefs That Will Affect Care: None marital status: Single Current Living Situation: Alone Current Living Situation Comment: 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 Physical Exam Physical Exam: General Appearance: WD/WN, vitals as above, NAD, lethargic responds to verbal commands Head: normocephalic, atraumatic Eyes: normal inspection, PERRL, conjunctivae normal, anicteric sclerae ENT: external ear and nose normal, oropharynx normal Neck: normal visual inspection, trachea midline, no thyromegaly Respiratory: normal respiratory effort, lungs clear to auscultation, no wheeze, rales, rhonchi. No accessory muscle use Cardiovascular: regular rate, rhythm, no murmur, normal peripheral pulses, no BLE edema. Vessels: no JVD Chest: normal inspection of chest Abdomen/GI: normal bowel sounds, soft, nontender, no hepatosplenomegaly Extremities/Musculoskeletal: no cyanosis or clubbing, extremities motor strength 5/5 Neurologic: PERRL, EOMI, accommodation nl, no face palsy, no dysarthria, CN's II-XI intact bilaterally and moves all extremities Psychiatric: A+Ox person only, confused Skin: no rashes, normal color, warm/dry Results & Data Results & Data ([facility]) Vital Signs (Past 12 Hours) Vital Signs Temp Pulse Pulse Resp BP Pulse Ox O2 Del Method 05/28/22 18:57 67 16 116/59 L 92 Room Air 05/28/22 18:40 65 17 101/47 L 93 Room Air 05/28/22 18:40 93 Room Air 05/28/22 18:40 Room Air 05/28/22 18:02 63 95/47 L 92 Room Air 05/28/22 17:43 63 93/48 L 92 Room Air 05/28/22 17:37 36.6 C 63 93 Nasal Cannula O2 Flow Rate 05/28/22 18:57 05/28/22 18:40 05/28/22 18:40 05/28/22 18:40 05/28/22 18:02 05/28/22 17:43 05/28/22 17:37 2 Laboratory Results Short CBC 05/28/22 Range/Units 17:49 WBC 8.02 (4.8-10.8) K/ul Hgb 11.5 L (12.0-16.0) g/dl Hct 34.5 (34.1-44.9) % Plt Count 131 (130-400) K/uL BMP 05/28/22 17:49 Sodium 132 L Potassium 4.0 Chloride 98 Carbon Dioxide 25 BUN 32 H Creatinine 1.18 Glucose 171 H Calcium 8.8 Liver Function 05/28/22 Range/Units 17:49 Total Bilirubin 0.4 (0.2-1.0) mg/dl Direct Bilirubin 0.1 (0-0.2) mg/dl AST 56 H (13-39) U/L ALT 72 H (7-52) U/L Alkaline Phosphatase 55 (34-104) U/L Albumin 3.6 (3.4-5.0) gm/dl Urine 05/28/22 Range/Units 20:55 Urine Color Dark Yellow Urine Appearance Clear (Clear) Urine pH 5.5 (4.5-7.5) Ur Specific [place] 1.015 (1.000-1.030) Urine Protein 1+ H (Negative) Urine Glucose (UA) Negative (Negative) Diagnostic Findings Chest X-Ray 05/28/22 17:47 XR chest 1V portable HISTORY: 71 years-old Female Sepsis acute sepsis COMPARISON: 07/13/2021 TECHNIQUE: AP view of the chest FINDINGS: Cardiac silhouette is mildly enlarged. Atherosclerosis of the aorta. No pneumothorax, pleural effusion, airspace consolidation or overt pulmonary edema. Bones of the chest appear grossly intact. IMPRESSION: Cardiomegaly without acute process. ACT 112: Negative or not required by law. The above report was generated using voice recognition software. It may contain grammatical, syntax or spelling errors. Electronically signed by: Live Mancera M.D. 05/28/2022 6:[address] 05/28/22 17:48 CT head/brain wo con CLINICAL HISTORY: 71 years-old Female with Altered mental status. Acutely altered mental status TECHNIQUE: Multiple axial CT images of the head were obtained without contrast. A dose lowering technique was utilized adhering to the principles of ALARA. CT DOSE: 691.05 mGy.cm COMPARISON: Head CT 05/11/2022 FINDINGS: No acute intracranial hemorrhage, midline shift, intracranial mass, hydrocephalus, territorial ischemia or abnormal extra-axial collection. Involutional changes with white matter hypodensities suggestive of chronic microvascular ischemic disease. Cerebral vascular calcifications. Chronic right parietal calvarial deformity. No acute calvarial fracture identified. Mastoid air cells and paranasal sinuses are clear. Partially imaged tube within the nasopharynx. Prior bilateral lens repair. The paranasal sinuses, mastoid air cells, and middle ear cavities are clear. IMPRESSION: No acute intracranial abnormality. ACT 112: Negative or not required by law. The above report was generated using voice recognition software. It may contain grammatical, syntax or spelling errors. Electronically signed by: Live Mancera M.D. 05/28/2022 7:11 PM Code Status & VTE Plan VTE Prophylaxis Plan VTE Prophylaxis will be ordered: Yes Supervising Physician Co-Signing Physician Notes Care coordinated with Radha Young PA-C . Agree with above note. Patient seen and examined. Please refer to her notes for full details. Vital signs reviewed. Physical exam: General exam: Alert and oriented x 2. Not in acute distress. CVS: S1 and S2 heard, regular rate and rhythm, no murmurs. RS: Clear to auscultation, b/l rhonchi heard ABD: Soft, bowel sounds present, nontender, no distention. PHLEBOTOMY PROGRAM COORDINATOR: Nonfocal. EXT: No edema, no erythema. Labs: Reviewed. Assessment and plan: 71F who was recently on hospital; for uti and weakness and d/[facility] was brought in because of covid and confusio. On presentation required oxygen but saturating fine on room air now. Confusion improving. Currently alert and oriented to name and place. Answering appropriately. Says has cough for last 3 days. No Sob. No fevrs. No chest pain. No nausea or diarrhea. Confusion covid says vaccinated but not boosted. cxr ok oxygen sats ok on room air currently b/l rhonchi on exam will place on decadron nebs prn gentle fluids mental status improving close monitor Other diagnosis and plan of care as per MARY Ayala-. Bhavesh leiva MD. (1) Hypertension Hypertension type: unspecified Qualified Code(s): I10 - Essential (primary) hypertension
[2022-05-28 21:11] LABS: Appearance Urine Clear (Clear); Bacteria Urine Automated Negative (Negative); Bilirubin Urine Negative (Negative); Blood Urine 2+ (Negative); Color Urine Dark Yellow; Epithelial Cell Urine Auto >30 /lpf (0-5); Glucose Urine UA Negative (Negative); Ketones Urine Negative (Negative); Leukocyte Esterase Urine Negative (Negative); Nitrite Urine Negative (Negative); Protein Urine 1+ (Negative); Specific Gravity Urine 1.015 (1.000-1.030); Urobilinogen Urine Negative (Negative); pH Urine 5.5 (4.5-7.5)
[2022-05-28] MEDS ORDERED: ONDANSETRON INJ 2 MG/ML 2 ML VIAL IV PRN (21:51)
[2022-05-28] MEDS ORDERED: ACETAMINOPHEN 325 MG TAB PO PRN (21:51)
[2022-05-29] MEDS: HEPARIN SOD 5,000 UNIT/0.5 ML VIAL SQ SCH ×4 (00:17→21:19)
[2022-05-29] MEDS ORDERED: LOPERAMIDE HCL 2 MG CAP PO PRN (00:58)
[2022-05-29] MEDS ORDERED: MECLIZINE HCL 25 MG TAB PO PRN (00:58)
[2022-05-29] MEDS ORDERED: SUMAtriptan succinate 100 MG TAB PO PRN (00:58)
[2022-05-29] MEDS ORDERED: GLUCAGON FOR INJ 1 MG VIAL SQ PRN (01:03)
[2022-05-29] MEDS ORDERED: GLUCOSE 10 TAB/TUBE PO PRN (01:03)
[2022-05-29] MEDS ORDERED: DEXTROSE 50% 50 ML SYRINGE IV PRN (01:03)
[2022-05-29] MEDS ORDERED: GLUCOSE 40% GEL 15 GM TUBE PO PRN (01:03)
[2022-05-29] MEDS ORDERED: CARBOHYDRATES FOR HYPOGLYCEMIA PO PRN (01:03)
[2022-05-29] MEDS: cloZAPine 100 MG TAB PO SCH ×2 (02:18→21:17)
[2022-05-29] MEDS ORDERED: SODIUM CHLORIDE 0.9% 1000ML 1,000 ML IV SCH (03:30)
[2022-05-29 04:41] LABS: Albumin Globulin Ratio 1.7 (0.9-2); Albumin Level 3.5 gm/dl (3.4-5.0); BUN Creatinine Ratio 33.8 (10-20); Bilirubin,Total 0.4 mg/dl (0.2-1.0); Calcium 8.5 mg/dl (8.5-10.1); Creatinine Clr Calc Pharmacy 67.3 ml/min; Est GFR (African American) 101.3 ml/min; Est GFR (Non-African American) 87.4 ml/min; Globulin 2.1 gm/dl (2.5-4.0); Hematocrit (blood only) 34.7 % (34.1-44.9); Hemoglobin 11.9 g/dl (12.0-16.0); Mean Corpuscular Hemoglobin 30.4 pg (25.0-34.0); Mean Corpuscular Hgb Conc 34.3 g/dL (32.0-36.0); Mean Corpuscular Volume 88.7 fL (80.0-100.0); Mean Platelet Volume 11.3 fL (9.4-12.3); Platelet Count 116 K/uL (130-400); Platelet Estimate Decreased (Normal); Potassium 3.7 mmol/L (3.5-5.1); RDW Coefficient of Variation 14.7 % (11.5-14.5); RDW Standard Deviation 48.2 fL (36.4-46.3); Red Blood Count 3.91 M/uL (3.93-5.22); Total Protein 5.6 gm/dl (6.0-8.3); White Blood Count 6.26 K/ul (4.8-10.8)
[2022-05-29] MEDS: LEVOTHYROXINE SODIUM 50 MCG TABLET PO SCH (08:52)
[2022-05-29] MEDS ORDERED: NON-FORMULARY MEDICATION (Iron,Carbonyl-Vitamin C [Vitron-C] 65 mg iron- 125 mg Tablet,Del PO SCH (09:00)
[2022-05-29] MEDS ORDERED: dexAMETHasone 6 MG in SYRINGE 0 ML IV SCH (09:00)
[2022-05-29] MEDS ORDERED: NON-FORMULARY MEDICATION (Riboflavin (Vitamin B2) 400 mg tablet) PO SCH (09:00)
[2022-05-29] MEDS: FERROUS SULFATE 325 MG TAB PO SCH (10:13)
[2022-05-29] MEDS: MAGNESIUM OXIDE 400 MG TAB PO SCH (10:13)
[2022-05-29] MEDS: cloZAPine 25 MG TAB PO SCH (10:15)
[2022-05-29] MEDS: FLUTICASONE PROPIONATE NA SPR 16 GM BTL NAE SCH (10:16)
[2022-05-29] MEDS: lisinopril 5 MG TAB PO SCH (10:17)
[2022-05-29] MEDS: DULoxetine HCL 60 MG CAP PO SCH (10:17)
[2022-05-29] MEDS: PSYLLIUM or GUAR GUM FIBER POWDER PACKET PO PRN (10:17)
[2022-05-29] MEDS: ASPIRIN 81 MG CHEW PO SCH (10:19)
[2022-05-29] MEDS: METOPROLOL SUCC 50MG EXT REL TAB PO SCH (10:20)
[2022-05-29] MEDS: CYANOCOBALAMIN (B-12) 500 MCG TABLET PO SCH (10:21)
[2022-05-29] MEDS: ADVANCED PROBIOTIC 1250 MG CAPSULE PO SCH (10:22)
--- NOTE | 2022-05-29 10:44 | Electrocardiogram Report ---
Test Reason : Blood Pressure : / mmHG Vent. Rate : 062 BPM Atrial Rate : 062 BPM P-R Int : 128 ms QRS Dur : 090 ms QT Int : 444 ms P-R-T Axes : 069 020 014 degrees QTc Int : 450 ms Normal sinus rhythm Nonspecific ST abnormality Abnormal ECG When compared with ECG of 12-MAY-2022 03:15, Nonspecific T wave abnormality, improved in Anterolateral leads Confirmed by Shen Garcia ([id number]) on 05/29/2022 10:44:18 AM Referred By: REFERRED SELF Confirmed By:Cesar Garcia
[2022-05-29] MEDS: INSULIN ASPART PER UNIT SC SCH ×4 (10:48→22:14)
[2022-05-29] MEDS: ASCORBIC ACID 500 MG TAB PO SCH (13:45)
--- NOTE | 2022-05-29 15:38 | Hospitalist Progress Note ---
Date of Service May 29, 2022 Assessment & Plan (1) Acute metabolic encephalopathy: (2) COVID-19: (3) DM2 (diabetes mellitus, type 2): (4) Hypertension: (5) Migraine: (6) Anxiety: (7) Hypothyroidism: (8) Schizophrenia: (9) Somatization disorder: (10) HLD (hyperlipidemia): Plan This is a 71-year-old female with past medical history significant for type 2 diabetes, schizophrenia, somatization disorder, anxiety who presents from [facility] with confusion and was found to have COVID-19 infection. Acute Metabolic encephalopathy COVID-19 infection Afebrile, hemodynamically stable, no leukocytosis, lactate and procalcitonin within normal limits, urine unremarkable Saturating at 92% on room air Supportive care, monitor closely Head CT without any acute intracranial abnormalities, CXR without acute process Elevated LFTs Slightly elevated of AST and ALT likely related to covid-19 infection No jaundice or abdominal pain is present. Hyperlipidemia chronic, controlled. Continue statin Schizophrenia Somatization disorder Anxiety state chronic, confused, Continue Clozapine, duloxetine Hypothyroidism chronic, stable. Continue Synthroid DM II Held metformin. Placed on insulin sliding scale.Current HbA1c 6.2%. BSG currently uncontrolled given steroid induced hyperglycemia. Will tighten insulin coverage and add lantus. Once she is off oxygen and clinically improving, we will be quick to stop steroids. Hypertension chronic, around goal. Continue metoprolol succinate, recently added lisinopril which has been continued. Migraine no headache at this time. On sumatriptan p.r.n. and riboflavin Slow transit constipation On Metamucil regularly. DVT Ppx: SQ heparin Code status: FULL PCP: Polo Vann Dispo: Admitted to [facility] DO Mirian Spence Hospitalist Admission and Anticipated Discharge Date Admission Date: May 28, 2022 Subjective The patient is a 71-year-old diabetic female who presents from [facility] with confusion found to have a COVID-19 infection. She also has a history of schizophrenia and some matization disorder and is on clozapine and duloxetine. Today she is confused and oriented to self only. She is speaking and following instructions. As a result of minimal hypoxia she was placed on Decadron which was first administered this morning. She reports having a cough for the last 2 weeks but because of confusion review of systems is otherwise compromised. She was recently hospitalized from 05/12- for urinary tract infection and weakness. She was sent to [facility] on a short course of cefdinir antibiotic on 05/16. Review of Systems Review of Systems: All systems reviewed negative except as indicated above. Physical Exam Physical Exam: CONSTITUTIONAL: WNWD, vitals as above, generally NAD, confused. EYES: PERRL, normal conjunctivae, no scleral icterus ENT: external ear and nose normal, oropharynx clear, MMM NECK: trachea midline, RESPIRATORY: clear to auscultation bilaterally, no crackles, rales or wheezes, normal respiratory effort CARDIOVASCULAR: regular rate and rhythm, S1 and 2 heard without murmurs, gallops or rubs, no JVD, no peripheral edema CHEST: inspection of chest was normal GASTROINTESTINAL: soft, nontender, ND, no guarding MUSCULOSKELETAL: strength 5/5 throughout, head is normocephalic and atraumatic SKIN: warm and dry NEUROLOGIC: CN 2-12 grossly intact, no sensory deficit, normal cognition, normal speech, no tremor PSYCHIATRIC: alert cooperative and oriented to person only. Results & Data Results & Data ([facility]) Vital Signs (Past 12 Hours) Vital Signs Temp Pulse Pulse Resp BP BP Pulse Ox 05/29/22 15:04 05/29/22 15:02 36.9 C 75 16 158/68 H 98 05/29/22 11:00 141/88 H 05/29/22 10:59 75 19 91 05/29/22 10:34 79 14 05/29/22 10:30 152/63 H 05/29/22 10:00 139/67 05/29/22 09:30 124/79 05/29/22 08:58 80 21 98 05/29/22 10:49 05/29/22 08:30 74 25 H 95 05/29/22 08:30 160/60 H 05/29/22 08:00 78 19 97 05/29/22 08:00 152/83 H 05/29/22 07:39 92 H 22 91 05/29/22 07:39 145/69 H 05/29/22 07:30 84 L 05/29/22 07:00 90 05/29/22 06:30 88 L 05/29/22 06:30 131/85 05/29/22 07:42 37.1 C 77 16 145/69 H 97 05/29/22 07:42 11/28/22 06:00 76 132/94 93 05/29/22 05:30 76 135/77 94 05/29/22 05:01 76 144/82 H 93 05/29/22 04:30 75 108/80 94 05/29/22 04:01 75 150/63 H 96 Pulse Ox O2 Del Method O2 Del Method O2 Flow Rate O2 Flow Rate 05/29/22 15:04 Nasal Cannula 2 05/29/22 15:02 Nasal Cannula 2 05/29/22 11:00 05/29/22 10:59 05/29/22 10:34 05/29/22 10:30 05/29/22 10:00 05/29/22 09:30 05/29/22 08:58 05/29/22 10:49 Nasal Cannula 2 05/29/22 08:30 05/29/22 08:30 05/29/22 08:00 05/29/22 08:00 05/29/22 07:39 05/29/22 07:39 05/29/22 07:30 05/29/22 07:00 05/29/22 06:30 05/29/22 06:30 05/29/22 07:42 Nasal Cannula 2 05/29/22 07:42 97 Nasal Cannula 2 05/29/22 06:00 Room Air 05/29/22 05:30 Room Air 05/29/22 05:01 Room Air 05/29/22 04:30 Room Air 05/29/22 04:01 Room Air Laboratory Results Short CBC 05/28/22 05/29/22 Range/Units 17:49 03:56 WBC 8.02 6.26 (4.8-10.8) K/ul Hgb 11.5 L 11.9 L (12.0-16.0) g/dl Hct 34.5 34.7 (34.1-44.9) % Plt Count 131 116 L (130-400) K/uL BMP 05/28/22 05/29/22 17:49 03:56 Sodium 132 L 135 L Potassium 4.0 3.7 Chloride 98 102 Carbon Dioxide 25 25 BUN 32 H 23 Creatinine 1.18 0.68 D Glucose 171 H 112 H Calcium 8.8 8.5 Liver Function 05/28/22 05/29/22 Range/Units 17:49 03:56 Total Bilirubin 0.4 0.4 (0.2-1.0) mg/dl Direct Bilirubin 0.1 (0-0.2) mg/dl AST 56 H 56 H (13-39) U/L ALT 72 H 65 H (7-52) U/L Alkaline Phosphatase 55 51 (34-104) U/L Albumin 3.6 3.5 (3.4-5.0) gm/dl Urine 05/28/22 Range/Units 20:55 Urine Color Dark Yellow Urine Appearance Clear (Clear) Urine pH 5.5 (4.5-7.5) Ur Specific [place] 1.015 (1.000-1.030) Urine Protein 1+ H (Negative) Urine Glucose (UA) Negative (Negative) Medications Administered Current Inpatient Medications Acetaminophen (Acetaminophen 325 Mg Tab) 650 mg PO Q4H PRN PRN Reason: Pain or Fever Stop: 06/27/22 21:50 Ascorbic Acid (Ascorbic Acid 500 Mg Tab) 250 mg PO DAILY JAMEL Stop: 06/28/22 08:59 Last Admin: 05/29/22 13:45 Dose: 250 mg Aspirin (Aspirin 81 Mg Chew) 81 mg PO DAILY JAMEL Stop: 06/28/22 08:59 Last Admin: 05/29/22 10:19 Dose: 81 mg Atorvastatin Calcium (Atorvastatin 20 Mg Tab) 20 mg PO PM JAMEL Stop: 06/28/22 20:59 Clozapine (Clozapine 25 Mg Tab) 50 mg PO QAM JAMEL Stop: 06/28/22 08:59 Last Admin: 05/29/22 10:15 Dose: 50 mg Clozapine (Clozapine 100 Mg Tab) 300 mg PO HS JAMEL Stop: 06/28/22 00:59 Last Admin: 05/29/22 02:18 Dose: 300 mg Cyanocobalamin (Cyanocobalamin (B-12) 500 Mcg Tablet) 1,000 mcg PO DAILY JAMEL Stop: 06/28/22 08:59 Last Admin: 05/29/22 10:21 Dose: 1,000 mcg Dextrose (Dextrose 50% 50 Ml Syringe) 25 - 50 ml IV UD PRN; Protocol PRN Reason: Hypoglycemia Protocol Stop: 06/28/22 01:02 Duloxetine HCl (Duloxetine Hcl 60 Mg Cap) 60 mg PO QAM JAMEL Stop: 06/28/22 08:59 Last Admin: 05/29/22 10:17 Dose: 60 mg Ergocalciferol (Ergocalciferol 50,000 Units 1250 Mcg Cap) 50,000 units PO We@ 0900 JAMEL Stop: 06/30/22 08:59 Ferrous Sulfate (Ferrous Sulfate 325 Mg Tab) 325 mg PO DAILY JAMEL Stop: 06/28/22 08:59 Last Admin: 05/29/22 10:13 Dose: 325 mg Fluticasone Propionate (Fluticasone Propionate Na Spr 16 Gm Btl) 2 sprays DONI DAILY JAMEL Stop: 06/28/22 08:59 Last Admin: 05/29/22 10:16 Dose: 120 sprays Gabapentin (Gabapentin 100 Mg Cap) 100 mg PO BID@0900,1400 JAMEL Stop: 06/29/22 08:59 Gabapentin (Gabapentin 100 Mg Cap) 200 mg PO HS JAMEL Stop: 06/28/22 20:59 Glucagon (Glucagon For Inj 1 Mg Vial) 1 mg SQ UD PRN; Protocol PRN Reason: Hypoglycemia Protocol Stop: 06/28/22 01:02 Glucose (Glucose 40% Gel 15 Gm Tube) 15 - 30 gm PO UD PRN; Protocol PRN Reason: Hypoglycemia Protocol Stop: 06/28/22 01:02 Glucose (Glucose 10 Tab/Tube) 4 - 8 tab PO UD PRN; Protocol PRN Reason: Hypoglycemia Treatment Stop: 06/28/22 01:02 Heparin Sodium (Porcine) (Heparin Sod 5,000 Unit/0.5 Ml Vial) 5,000 units SQ Q8 JAMEL Stop: 06/27/22 21:59 Last Admin: 05/29/22 13:45 Dose: 5,000 units Sodium Chloride (Nss 1000ml) 1,000 mls @ 80 mls/hr IV .[id number] JAMEL Stop: 05/29/22 15:59 Last Admin: 05/29/22 10:10 Dose: 80 mls/hr Dexamethasone 6 mg/ Syringe 1.5 mls @ 1 mls/min IV DAILY JAMEL Stop: 06/28/22 08:59 Last Admin: 05/29/22 10:14 Dose: 1 mls/min Insulin Aspart (Insulin Aspart Per Unit) 0 units SC ACHS JAMEL Stop: 06/28/22 07:29 Last Admin: 05/29/22 13:45 Dose: 5 units Lactobacillus Acidophilus (Advanced Probiotic 1250 Mg Capsule) 2 cap PO DAILY JAMEL Stop: 06/28/22 08:59 Last Admin: 05/29/22 10:22 Dose: 2 cap Levothyroxine Sodium (Levothyroxine Sodium 50 Mcg Tablet) 50 mcg PO DAILYBB [facility] Stop: 06/28/22 06:29 Last Admin: 05/29/22 08:52 Dose: 50 mcg Lisinopril (Lisinopril 5 Mg Tab) 5 mg PO QAM [facility] Stop: 06/28/22 08:59 Last Admin: 05/29/22 10:17 Dose: 5 mg Loperamide HCl (Loperamide Hcl 2 Mg Cap) 2 mg PO QID PRN PRN Reason: Diarrhea Stop: 06/28/22 00:57 Loratadine (Loratadine 10 Mg Tab) 10 mg PO [facility] Stop: 06/28/22 20:59 Magnesium Oxide (Magnesium Oxide 400 Mg Tab) 400 mg PO QAM [facility] Stop: 06/28/22 08:59 Last Admin: 05/29/22 10:13 Dose: 400 mg Meclizine HCl (Meclizine Hcl 25 Mg Tab) 25 mg PO Q5H PRN PRN Reason: DIZZY Stop: 06/28/22 00:57 Metoprolol Succinate (Metoprolol Succ 50mg Ext Rel Tab) [facility] Stop: 06/28/22 08:59 Last Admin: 05/29/22 10:20 Dose: 50 mg Miscellaneous (Carbohydrates For Hypoglycemia ) 15 - 30 gm PO UD PRN PRN Reason: Hypoglycemia Protocol Stop: 06/28/22 01:02 Nortriptyline HCl (Nortriptyline Hcl 25 Mg Cap) 50 mg PO [facility] Stop: 06/28/22 20:59 Ondansetron HCl (Ondansetron Inj 2 Mg/Ml 2 Ml Vial) 4 mg IV Q6H PRN PRN Reason: Nausea Stop: 06/27/22 21:50 Pantoprazole Sodium (Pantoprazole 40 Mg Tab) 40 mg PO [facility] Stop: 06/28/22 20:59 Polyethylene Glycol (Polyethylene (Miralax) 17 Gm Pack) 17 gm PO DAILY PRN PRN Reason: Constipation Stop: 06/27/22 21:50 Psyllium Hydrophilic Mucilloid (Psyllium Or Guar Gum Fiber Powder Packet) 1 pkt PO TID PRN PRN Reason: Constipation Stop: 06/28/22 02:19 Last Admin: 05/29/22 10:17 Dose: 1 pkt Sumatriptan Succinate (Sumatriptan Succinate 100 Mg Tab) 100 mg PO DAILY PRN PRN Reason: Migraine Headache Stop: 06/28/22 00:57 (1) Hypertension Hypertension type: unspecified Qualified Code(s): I10 - Essential (primary) hypertension
[2022-05-29] MEDS ORDERED: INSULIN HUMAN REGULAR PER UNIT 5 UNITS in SYRINGE 4.95 ML IV STA (16:12)
[2022-05-29] MEDS: LANTUS PER UNIT CHARGE SQ SCH (17:14)
[2022-05-29] MEDS ORDERED: PANTOprazole 40 MG TAB PO SCH (21:00)
[2022-05-29] MEDS ORDERED: LORATADINE 10 MG TAB PO SCH (21:00)
[2022-05-29] MEDS ORDERED: ATORVASTATIN 20 MG TAB PO SCH (21:00)
[2022-05-29] MEDS: GABAPENTIN 100 MG CAP PO SCH (21:16)
[2022-05-29] MEDS: NORTRIPTYLINE HCL 25 MG CAP PO SCH (21:17)
[2022-05-30] MEDS: LANTUS PER UNIT CHARGE SQ SCH ×2 (04:56→17:02)
[2022-05-30] MEDS: HEPARIN SOD 5,000 UNIT/0.5 ML VIAL SQ SCH ×3 (05:12→22:09)
[2022-05-30] MEDS ORDERED: REMDESIVIR 200 MG in SODIUM CHLORIDE 0.9% 210 ML IV ONE (05:30)
[2022-05-30 05:59] LABS: Base Excess ABG 3.5 mEq/L (-9-1.8); HCO3 ABG 27 mmol/L (19-24); PCO2 ABG 35 mmHg (35-46); PO2 ABG 167 mmHg (80-95); pH ABG 7.49 (7.35-7.45)
[2022-05-30 06:01] LABS: Hematocrit (blood only) 29.8 % (34.1-44.9); Hemoglobin 10.2 g/dl (12.0-16.0); Mean Corpuscular Hemoglobin 29.8 pg (25.0-34.0); Mean Corpuscular Hgb Conc 34.2 g/dL (32.0-36.0); Mean Corpuscular Volume 87.1 fL (80.0-100.0); Mean Platelet Volume 10.8 fL (9.4-12.3); Platelet Count 120 K/uL (130-400); RDW Coefficient of Variation 14.9 % (11.5-14.5); Red Blood Count 3.42 M/uL (3.93-5.22); White Blood Count 6.12 K/ul (4.8-10.8)
[2022-05-30 06:03] LABS: Allen Test Pos (Pos)
[2022-05-30 06:32] LABS: Albumin Globulin Ratio 1.3 (0.9-2); Albumin Level 3.1 gm/dl (3.4-5.0); BUN Creatinine Ratio 28.3 (10-20); Bilirubin,Total 0.5 mg/dl (0.2-1.0); Calcium 8.5 mg/dl (8.5-10.1); Creatinine Clr Calc Pharmacy 99.5 ml/min; Est GFR (African American) 115.2 ml/min; Est GFR (Non-African American) 99.4 ml/min; Globulin 2.3 gm/dl (2.5-4.0); Magnesium 1.7 mg/dl (1.7-2.4); Phosphorus 2.8 mg/dl (2.5-4.9); Potassium 3.8 mmol/L (3.5-5.1); Total Protein 5.4 gm/dl (6.0-8.3)
[2022-05-30 06:56] LABS: Echinocytes 1+; Immature Granulocytes # (auto) 0.03 K/uL (0.00-0.02); Immature Granulocytes % (auto) 0.5 %; Lymphocytes % (auto) 8.2 %; Monocytes # (auto) 0.38 K/uL (0.24-0.82); Monocytes % (auto) 6.2 %; Neutrophils # (auto) 5.21 K/uL (1.4-6.5); Neutrophils % (auto) 85.1 %
--- NOTE | 2022-05-30 07:10 | CT Scan Report ---
CT head/brain wo con CLINICAL HISTORY: 71 years-old Female with AMS. Acutely altered mental status TECHNIQUE: Multiple axial CT images of the head were obtained without contrast. A dose lowering tech nique was utilized adhering to the principles of ALARA. CT DOSE: 663.41 mGy.cm COMPARISON: Head CT 05/28/2022 FINDINGS: No acute intracranial hemorrhage, midline shift, intracranial mass, hydrocephalus, territorial ischem ia or abnormal extra-axial collection. Involutional changes with white matter hypodensities suggestiv e of chronic microvascular ischemic disease. Cerebral vascular calcifications. Chronic right parietal calvarial deformity. No acute calvarial fracture identified. Mastoid air cells and paranasal sinuses are clear. Partially imaged tube within the nasopharynx. Prior bilateral lens repair. The paranasal sinuses, mastoid air cells, and middle ear cavities are clear. IMPRESSION: No acute intracranial abnormality. ACT 112: Negative or not required by law. The above report was generated using voice recognition software. It may contain grammatical, syntax o r spelling errors. Electronically signed by: Live Mancera M.D. 05/30/2022 7:09 AM
[2022-05-30] MEDS ORDERED: dexAMETHasone 4 MG TAB PO SCH (09:00)
--- NOTE | 2022-05-30 09:09 | Communication Note ---
Date of Service: May 30, 2022 Code reinaldo was called around 5am as patient was difficult to arouse but able to wake her up with painful stimuli and code reinaldo was cancelled. Vitals stable. Saturating ok on 2lts oxygen. But going back to sleep says not to bother her. Moves extremities on painful stimuli. CT head and abg ok. Started on remdesivir as requiring oxygen. Notified Am providers. Thanks
[2022-05-30] MEDS: LEVOTHYROXINE SODIUM 50 MCG TABLET PO SCH (09:18)
[2022-05-30] MEDS: ADVANCED PROBIOTIC 1250 MG CAPSULE PO SCH (09:19)
[2022-05-30] MEDS: ASPIRIN 81 MG CHEW PO SCH (09:19)
[2022-05-30] MEDS: GABAPENTIN 100 MG CAP PO SCH (09:19)
[2022-05-30] MEDS: FERROUS SULFATE 325 MG TAB PO SCH (09:19)
[2022-05-30] MEDS: cloZAPine 25 MG TAB PO SCH (09:19)
[2022-05-30] MEDS: lisinopril 5 MG TAB PO SCH (09:19)
[2022-05-30] MEDS: DULoxetine HCL 60 MG CAP PO SCH (09:19)
[2022-05-30] MEDS: MAGNESIUM OXIDE 400 MG TAB PO SCH (09:19)
[2022-05-30] MEDS: ASCORBIC ACID 500 MG TAB PO SCH (09:19)
[2022-05-30] MEDS: CYANOCOBALAMIN (B-12) 500 MCG TABLET PO SCH (09:19)
[2022-05-30] MEDS: INSULIN ASPART PER UNIT SC SCH ×3 (09:20→18:23)
[2022-05-30] MEDS: METOPROLOL SUCC 50MG EXT REL TAB PO SCH (09:20)
[2022-05-30] MEDS: FLUTICASONE PROPIONATE NA SPR 16 GM BTL NAE SCH (09:21)
--- NOTE | 2022-05-30 09:55 | XRay Report ---
XR chest 1V portable HISTORY: 71 years-old Female altered mental status COMPARISON: Chest radiograph 05/28/2022, 04/15/2021 TECHNIQUE: AP view of the chest FINDINGS: Cardiac silhouette is mildly enlarged. Unchanged asymmetric prominence of the right hilum. Atheroscle rosis of the aorta. No pneumothorax, pleural effusion, airspace consolidation or overt pulmonary gabriela a. Bones of the chest appear grossly intact. IMPRESSION: Cardiomegaly without acute process. ACT 112: Negative or not required by law. The above report was generated using voice recognition software. It may contain grammatical, syntax o r spelling errors. Electronically signed by: Live Mancera M.D. 05/30/2022 9:54 AM
--- NOTE | 2022-05-30 10:42 | Hospitalist Progress Note ---
Date of Service May 30, 2022 Assessment & Plan (1) Acute metabolic encephalopathy: Plan: Today she is more obtunded, uncertain etiology, possible pharmacological side effect? She is maintaining an airway and not tachypneic. Workup for underlying cause has been unrevealing so far. Awaiting EKG, trop, lactate. However, abdomen is soft NTND and there was no other s/sx of ACS overnight. Cont to hold all medications especially steorids and remdesivir which are new, and hold all psych meds for now. Allow time to wake up and improve. Urine tox screen also ordered. (2) COVID-19: Plan: acute infection but very little if any hypoxia. Supplemental oxygen is being left in place as she is obtunded. (3) DM2 (diabetes mellitus, type 2): Plan: chronic, at goal and managed with basal bolus insulin. Hold short acting insulin while sleeping. Decrease glargine to 50% of current dose while NPO. (4) Hypertension: Plan: chronic, around goal. Holding PO meds at this time. If increased to >170 systolic, will consider parenteral agents (5) Migraine: Plan: Obtunded (6) Anxiety: Plan: currently obtunded, no benzos were given since admission. (7) Hypothyroidism: Plan: chronic, stable. If dosen't wake up by tomorrow morning, consider IV synthroid. For now just hold PO meds. (8) Schizophrenia: Plan: chronic, stable but obtunded. Holding clozapine (9) Somatization disorder: (10) HLD (hyperlipidemia): (11) DVT prophylaxis: Plan: Heparin Full Code Dispo-uncertain at this time. Rebekah Novak DO [facility] and Anticipated Discharge Date Admission Date: May 28, 2022 Subjective The patient is a 71-year-old diabetic female who presents from [facility] with confusion found to have a COVID-19 infection. She also has a history of schizophrenia and some matization disorder and is on clozapine and duloxetine. She has been obtunded overnight, although will awaken to painful stimuli Overnight they did an ABG that revealed no CO2 retention and she is not tachypneic Repeat head CT is negative for stroke or bleed, pupils are round and equal bilaterally, toes are downgoing bilaterally and knee reflexes intact Repeat CXR is clear this morning. Trop and lactate are pending Repeat EKG pending She is breathing approximately 16 times per minute and mouth is open as if in deep sleep with snoring. Around 9pm she received clozapine 300mg HS and gabapentin 200mg QHS and nortriptyline 50mg HS She also was started on remdesivir with first dose give around 6am, after she became obtunded She was given a dose of decadron yesterday morning. Review of Systems Review of Systems: All systems reviewed negative except as indicated above. Physical Exam Physical Exam: CONSTITUTIONAL: WNWD, vitals as above, obtunded EYES: PERRL, normal conjunctivae, no scleral icterus ENT: external ear and nose normal, mouth breathing NECK: trachea midline, RESPIRATORY: clear to auscultation bilaterally, no crackles, rales or wheezes, normal respiratory effort CARDIOVASCULAR: regular rate and rhythm, S1 and 2 heard without murmurs, gallops or rubs, no JVD, no peripheral edema CHEST: inspection of chest was normal GASTROINTESTINAL: soft, nontender, ND, no guarding MUSCULOSKELETAL: Head NC/AT, obtunded SKIN: warm and dry NEUROLOGIC: obtunded, 2/4 knee DTR bilaterally, toes downgoing bilat PSYCHIATRIC: obtunded Results & Data Results & Data ([facility]) Vital Signs (Past 12 Hours) Vital Signs Temp Pulse Resp BP Pulse Ox O2 Del Method O2 Flow Rate 05/30/22 08:00 36.5 C 70 20 142/79 H 100 Nasal Cannula 2 05/30/22 05:15 69 115/70 98 Nasal Cannula 2 05/30/22 04:23 36.6 C 67 18 103/59 L 99 Nasal Cannula 2 05/30/22 02:25 Nasal Cannula 2 05/29/22 23:03 37.5 C 74 18 108/63 98 Room Air Laboratory Results Short CBC 05/30/22 Range/Units 05:26 WBC 6.12 (4.8-10.8) K/ul Hgb 10.2 L (12.0-16.0) g/dl Hct 29.8 L (34.1-44.9) % Plt Count 120 L (130-400) K/uL BMP 05/30/22 05:26 Sodium 135 L Potassium 3.8 Chloride 103 Carbon Dioxide 27 BUN 13 Creatinine 0.46 L Glucose 147 H Calcium 8.5 Liver Function 05/30/22 Range/Units 05:26 Total Bilirubin 0.5 (0.2-1.0) mg/dl AST 40 H (13-39) U/L ALT 50 (7-52) U/L Alkaline Phosphatase 44 (34-104) U/L Albumin 3.1 L (3.4-5.0) gm/dl Diagnostic Findings Head CT 05/30/22 05:15 CT head/brain wo con CLINICAL HISTORY: 71 years-old Female with AMS. Acutely altered mental status TECHNIQUE: Multiple axial CT images of the head were obtained without contrast. A dose lowering technique was utilized adhering to the principles of ALARA. CT DOSE: 663.41 mGy.cm COMPARISON: Head CT 05/28/2022 FINDINGS: No acute intracranial hemorrhage, midline shift, intracranial mass, hydrocephalus, territorial ischemia or abnormal extra-axial collection. Involutional changes with white matter hypodensities suggestive of chronic microvascular ischemic disease. Cerebral vascular calcifications. Chronic right parietal calvarial deformity. No acute calvarial fracture identified. Mastoid air cells and paranasal sinuses are clear. Partially imaged tube within the nasopharynx. Prior bilateral lens repair. The paranasal sinuses, mastoid air cells, and middle ear cavities are clear. IMPRESSION: No acute intracranial abnormality. ACT 112: Negative or not required by law. The above report was generated using voice recognition software. It may contain grammatical, syntax or spelling errors. Electronically signed by: Live Mancera M.D. 05/30/2022 7:09 AM Chest X-Ray 05/30/22 09:29 XR chest 1V portable HISTORY: 71 years-old Female altered mental status COMPARISON: Chest radiograph 05/28/2022, 04/15/2021 TECHNIQUE: AP view of the chest FINDINGS: Cardiac silhouette is mildly enlarged. Unchanged asymmetric prominence of the right hilum. Atherosclerosis of the aorta. No pneumothorax, pleural effusion, airspace consolidation or overt pulmonary edema. Bones of the chest appear grossly intact. IMPRESSION: Cardiomegaly without acute process. ACT 112: Negative or not required by law. The above report was generated using voice recognition software. It may contain grammatical, syntax or spelling errors. Electronically signed by: Live Mancera M.D. 05/30/2022 9:54 AM Medications Administered Current Inpatient Medications Acetaminophen (Acetaminophen 325 Mg Tab) 650 mg PO Q4H PRN PRN Reason: Pain or Fever Stop: 06/27/22 21:50 Aspirin (Aspirin 81 Mg Chew) 81 mg PO DAILY JAMEL Stop: 06/28/22 08:59 Last Admin: 05/30/22 09:19 Dose: Not Given Atorvastatin Calcium (Atorvastatin 20 Mg Tab) 20 mg PO PM JAMEL Stop: 06/28/22 20:59 Last Admin: 05/29/22 21:15 Dose: 20 mg Clozapine (Clozapine 25 Mg Tab) 50 mg PO QAM JAMEL Stop: 06/28/22 08:59 Last Admin: 05/30/22 09:19 Dose: Not Given Clozapine (Clozapine 100 Mg Tab) 300 mg PO HS [facility] Stop: 06/28/22 00:59 Last Admin: 05/29/22 21:17 Dose: 300 mg Dexamethasone (Dexamethasone 4 Mg Tab) 6 mg PO DAILY [facility] Stop: 06/29/22 08:59 Dextrose (Dextrose 50% 50 Ml Syringe) 25 - 50 ml IV UD PRN; Protocol PRN Reason: Hypoglycemia Protocol Stop: 06/28/22 01:02 Duloxetine HCl (Duloxetine Hcl 60 Mg Cap) 60 mg PO QAM [facility] Stop: 06/28/22 08:59 Last Admin: 05/30/22 09:19 Dose: Not Given Ergocalciferol (Ergocalciferol 50,000 Units 1250 Mcg Cap) 50,000 units PO We@0900 [facility] Stop: 06/30/22 08:59 Fluticasone Propionate (Fluticasone Propionate Na Spr 16 Gm Btl) 2 sprays DONI DAILY JAMEL Stop: 06/28/22 08:59 Last Admin: 05/30/22 09:21 Dose: 2 sprays Gabapentin (Gabapentin 100 Mg Cap) 100 mg PO BID@0900,1400 [facility] Stop: 06/29/22 08:59 Last Admin: 05/30/22 09:19 Dose: Not Given Gabapentin (Gabapentin 100 Mg Cap) 200 mg PO HS JAMEL Stop: 06/28/22 20:59 Last Admin: 05/29/22 21:16 Dose: 200 mg Glucagon (Glucagon For Inj 1 Mg Vial) 1 mg SQ UD PRN; Protocol PRN Reason: Hypoglycemia Protocol Stop: 06/28/22 01:02 Glucose (Glucose 40% Gel 15 Gm Tube) 15 - 30 gm PO UD PRN; Protocol PRN Reason: Hypoglycemia Protocol Stop: 06/28/22 01:02 Glucose (Glucose 10 Tab/Tube) 4 - 8 tab PO UD PRN; Protocol PRN Reason: Hypoglycemia Treatment Stop: 06/28/22 01:02 Heparin Sodium (Porcine) (Heparin Sod 5,000 Unit/0.5 Ml Vial) 5,000 units SQ Q8 [facility] Stop: 06/27/22 21:59 Last Admin: 05/30/22 05:12 Dose: 5,000 units Remdesivir 100 mg/ Sodium (Chloride) 250 mls @ 250 mls/hr IV Q24H [facility] Insulin Aspart (Insulin Aspart Per Unit) 0 units SC ACHS [facility] Stop: 06/28/22 07:29 Last Admin: 05/30/22 09:20 Dose: Not Given Insulin Glargine (Lantus Per Unit Charge) 15 units SQ Q12H [facility] Stop: 06/28/22 16:14 Last Admin: 05/30/22 04:56 Dose: 15 units Lisinopril (Lisinopril 5 Mg Tab) 5 mg PO QAM [facility] Stop: 06/28/22 08:59 Last Admin: 05/30/22 09:19 Dose: Not Given Loperamide HCl (Loperamide Hcl 2 Mg Cap) 2 mg PO QID PRN PRN Reason: Diarrhea Stop: 06/28/22 00:57 Loratadine (Loratadine 10 Mg Tab) 10 mg PO HS [facility] Stop: 06/28/22 20:59 Last Admin: 05/29/22 21:18 Dose: 10 mg Magnesium Oxide (Magnesium Oxide 400 Mg Tab) 400 mg PO QAM [facility] Stop: 06/28/22 08:59 Last Admin: 05/30/22 09:19 Dose: Not Given Meclizine HCl (Meclizine Hcl 25 Mg Tab) 25 mg PO Q5H PRN PRN Reason: DIZZY Stop: 06/28/22 00:57 Metoprolol Succinate (Metoprolol Succ 50mg Ext Rel Tab) 50 mg PO QAM [facility] Stop: 06/28/22 08:59 Last Admin: 05/30/22 09:20 Dose: Not Given Miscellaneous (Carbohydrates For Hypoglycemia ) 15 - 30 gm PO UD PRN PRN Reason: Hypoglycemia Protocol Stop: 06/28/22 01:02 Nortriptyline HCl (Nortriptyline Hcl 25 Mg Cap) 50 mg PO HS JAMEL Stop: 06/28/22 20:59 Last Admin: 05/29/22 21:17 Dose: 50 mg Ondansetron HCl (Ondansetron Inj 2 Mg/Ml 2 Ml Vial) 4 mg IV Q6H PRN PRN Reason: Nausea Stop: 06/27/22 21:50 Pantoprazole Sodium (Pantoprazole 40 Mg Tab) 40 mg PO HS JAMEL Stop: 06/28/22 20:59 Last Admin: 05/29/22 21:19 Dose: 40 mg Polyethylene Glycol (Polyethylene (Miralax) 17 Gm Pack) 17 gm PO DAILY PRN PRN Reason: Constipation Stop: 06/27/22 21:50 Psyllium Hydrophilic Mucilloid (Psyllium Or Guar Gum Fiber Powder Packet) 1 pkt PO TID PRN PRN Reason: Constipation Stop: 06/28/22 02:19 Last Admin: 05/29/22 10:17 Dose: 1 pkt Sumatriptan Succinate (Sumatriptan Succinate 100 Mg Tab) 100 mg PO DAILY PRN PRN Reason: Migraine Headache Stop: 06/28/22 00:57 (1) Hypertension Hypertension type: unspecified Qualified Code(s): I10 - Essential (primary) hypertension
[2022-05-30] MEDS: SODIUM CHLORIDE 0.9% 1000ML 1,000 ML IV SCH ×2 (12:24→23:19)
[2022-05-30 13:08] LABS: Amphetamines+Metham, Urine Neg (Neg); Barbiturates, Urine Neg (Neg); Benzodiazepine, Urine Neg (Neg); Cocaine, Urine Neg (Neg); MDMA (Ecstacy), Urine Neg (Neg); Methadone, Urine Neg (Neg); Opiate, Urine Neg (Neg); Phencyclidine, Urine Neg (Neg)
--- NOTE | 2022-05-30 14:13 | Electrocardiogram Report ---
Test Reason : Blood Pressure : / mmHG Vent. Rate : 077 BPM Atrial Rate : 077 BPM P-R Int : 134 ms QRS Dur : 088 ms QT Int : 386 ms P-R-T Axes : 093 088 082 degrees QTc Int : 436 ms Normal sinus rhythm When compared with ECG of 28-MAY-2022 17:37, Nonspecific T wave abnormality now evident in Lateral leads Confirmed by Shen Garcia ([id number]) on 05/30/2022 2:13:09 PM Referred By: REFERRED SELF Confirmed By:Cesar Garcia
[2022-05-31] MEDS: INSULIN ASPART PER UNIT SC SCH ×5 (00:49→21:17)
[2022-05-31] MEDS: HEPARIN SOD 5,000 UNIT/0.5 ML VIAL SQ SCH ×3 (05:04→21:07)
[2022-05-31] MEDS: LANTUS PER UNIT CHARGE SQ SCH (05:45)
[2022-05-31 07:41] LABS: Hemoglobin 10.4 g/dl (12.0-16.0); Mean Corpuscular Hemoglobin 30.4 pg (25.0-34.0); Mean Corpuscular Hgb Conc 33.5 g/dL (32.0-36.0); Mean Corpuscular Volume 90.6 fL (80.0-100.0); Mean Platelet Volume 11.1 fL (9.4-12.3); Platelet Count 136 K/uL (130-400); RDW Coefficient of Variation 14.7 % (11.5-14.5); RDW Standard Deviation 48.6 fL (36.4-46.3); Red Blood Count 3.42 M/uL (3.93-5.22); White Blood Count 5.92 K/ul (4.8-10.8)
[2022-05-31 07:55] LABS: Albumin Level 3.1 gm/dl (3.4-5.0); BUN Creatinine Ratio 40.4 (10-20); Bilirubin Direct 0.2 mg/dl (0-0.2); Bilirubin,Total 0.4 mg/dl (0.2-1.0); Calcium 8.3 mg/dl (8.5-10.1); Est GFR (African American) 110.6 ml/min; Est GFR (Non-African American) 95.5 ml/min; Potassium 3.5 mmol/L (3.5-5.1); Total Protein 5.4 gm/dl (6.0-8.3)
[2022-05-31] MEDS ORDERED: ERGOCALCIFEROL 50,000 UNITS 1250 MCG CAP PO SCH (09:00)
[2022-05-31] MEDS ORDERED: lisinopril 5 MG TAB PO ONE (11:29)
[2022-05-31] MEDS ORDERED: METOPROLOL SUCC 25MG EXT REL TAB PO ONE (11:29)
--- NOTE | 2022-05-31 11:45 | Hospitalist Progress Note ---
Date of Service May 31, 2022 Assessment & Plan (1) Acute metabolic encephalopathy: (2) COVID-19: (3) DM2 (diabetes mellitus, type 2): (4) Hypertension: (5) Migraine: (6) Anxiety: (7) Hypothyroidism: (8) Schizophrenia: (9) Somatization disorder: (10) HLD (hyperlipidemia): Plan: (1) Acute metabolic encephalopathy: Plan: Today she is more obtunded, uncertain etiology, possible pharmacological side effect? She is maintaining an airway and not tachypneic. Workup for underlying cause has been unrevealing so far. Awaiting EKG, trop, lactate. However, abdomen is soft NTND and there was no other s/sx of ACS overnight. Cont to hold all medications especially steorids and remdesivir which are new, and hold all psych meds for now. Allow time to wake up and improve. Urine tox screen also ordered. -- resolving -- alert, oriented x 2 today -- from COVID 19 infection? adverse reaction from Decadron or Remdesivir? -- CT head: negative -- management of COVID infection per below no other signs of infection -- resume usual Psych meds today, monitor (2) COVID-19: Plan: not hypoxic CXR: no Pneumonia received 1 day of Remdesivir and Decadron--> held due to altered mental status, obtunded -- monitor closely (3) DM2 (diabetes mellitus, type 2): Plan: chronic, at goal and managed with basal bolus insulin. Hold short acting insulin while sleeping. Decrease glargine to 50% of current dose while NPO. -- BSG 86-92 -- on ISS for now (4) Hypertension: Plan: -- resume usual Lisinopril, Metoprolol monitor (5) Migraine: Plan: -- no headache today (6) Anxiety: Plan: -- continue usual Psych Meds (7) Hypothyroidism: Plan: -- continue Levothyroxine (8) Schizophrenia: Plan: -- continue usual Psych meds (9) Somatization disorder: (10) HLD (hyperlipidemia): (11) DVT prophylaxis: Plan: Heparin Full Code Disposition -- anticipate return to [facility] when Medically stable (11) DVT prophylaxis: Admission and Anticipated Discharge Date Admission Date: May 28, 2022 Subjective ff up for acute met enceph, COVID 19 infection, etc seen resting in bed, comfortable awake, alert answers most questions appropriately oriented x 2 states she feels ok overall does report feeling anxious- mostly about being admitted to the hospital has occasional dry cough, nasal drainage but denies shortness of breath, chest pain, leg pain no other symptoms Review of Systems Review of Systems: all noted and negative except for above Physical Exam Physical Exam: General- oriented x 2, not in distress, speaks in sentences with no effort or accessory muscle use Eyes- anicteric Neck- no JVD Lungs- clear breath sounds bilaterally, no rales/wheezes Heart- normal rate, regular rhythm; no murmurs Abdomen- normal bowel sounds, nondistended, soft, nontender Extremities- no pretibial edema, no calf tenderness Neuro- alert, oriented x 3; no gross focal neurologic deficits Skin- warm & dry Results & Data Results & Data ([facility]) Vital Signs (Past 12 Hours) Vital Signs Temp Pulse Pulse Resp BP BP Pulse Ox 05/31/22 09:57 05/31/22 07:22 77 05/31/22 06:54 36.6 C 82 19 177/90 H 97 05/31/22 04:46 76 18 175/89 H 98 05/31/22 03:27 71 18 169/94 H 97 05/31/22 03:02 36.5 C 71 18 92/63 L 95 O2 Del Method 05/31/22 09:57 Room Air 05/31/22 07:22 05/31/22 06:54 Room Air 05/31/22 04:46 Room Air 05/31/22 03:27 Room Air 05/31/22 03:02 Room Air all noted and reviewed including below (1) Hypertension Hypertension type: unspecified Qualified Code(s): I10 - Essential (primary) hypertension
[2022-05-31] MEDS: GABAPENTIN 100 MG CAP PO SCH ×2 (15:34→21:09)
[2022-05-31] MEDS ORDERED: SODIUM CHLORIDE 0.45 % 1,000 ML IV ONE (19:51)
[2022-05-31] MEDS: ACETAMINOPHEN 500 MG TAB PO PRN (20:12)
[2022-05-31 20:44] LABS: Appearance Urine Cloudy (Clear); Bacteria Urine Automated 4+ (Negative); Bilirubin Urine Negative (Negative); Blood Urine 2+ (Negative); Color Urine Yellow; Glucose Urine UA Negative (Negative); Ketones Urine Negative (Negative); Leukocyte Esterase Urine 2+ (Negative); Nitrite Urine Positive (Negative); Urobilinogen Urine Negative (Negative); WBC Urine Automated >30 /hpf (0-5); pH Urine 7.5 (4.5-7.5)
[2022-05-31 21:06] LABS: Protein Urine Trace (Negative)
[2022-05-31] MEDS: cloZAPine 100 MG TAB PO SCH (21:10)
[2022-05-31] MEDS: NORTRIPTYLINE HCL 25 MG CAP PO SCH (21:11)
--- NOTE | 2022-05-31 22:11 | Communication Note ---
Date of Service: May 31, 2022 Overnight events 745 PM Patient with fever as per RN. Urine noted to be dark. UA WBC esterase, nitrite positive AP Complicated UTI Urine CS, Azactam 1120 PM Patient noted to be drowsy. Similar event 2 days ago as per RN. AP Encephalopathy likely secondary to multiple neuropsychotropic meds given at bedtime. Hold parameters for sedation and confusion for neuropsychotropic meds. Decrease gabapentin dose to 100 mg at bedtime. Consider Psych consult for recommendations regarding medication management if nighttime confusion still recurs despite above interventions.
[2022-05-31] MEDS: AZTREONAM 1,000 MG in DEXTROSE 5% 100 ML IV SCH (23:32)
[2022-06-01] MEDS: HEPARIN SOD 5,000 UNIT/0.5 ML VIAL SQ SCH ×3 (05:49→21:15)
[2022-06-01] MEDS: AZTREONAM 1,000 MG in DEXTROSE 5% 100 ML IV SCH ×3 (05:49→21:15)
[2022-06-01 06:25] LABS: Albumin Globulin Ratio 1.4 (0.9-2); BUN Creatinine Ratio 31.5 (10-20); Bilirubin,Total 0.6 mg/dl (0.2-1.0); Creatinine Clr Calc Pharmacy 84.7 ml/min; Est GFR (African American) 109.3 ml/min; Est GFR (Non-African American) 94.3 ml/min; Globulin 2.2 gm/dl (2.5-4.0); Potassium 3.5 mmol/L (3.5-5.1); Total Protein 5.2 gm/dl (6.0-8.3)
[2022-06-01] MEDS: INSULIN ASPART PER UNIT SC SCH ×4 (08:30→21:15)
[2022-06-01] MEDS: ASPIRIN 81 MG CHEW PO SCH (08:31)
[2022-06-01] MEDS: GABAPENTIN 100 MG CAP PO SCH ×3 (08:31→20:34)
[2022-06-01] MEDS: DULoxetine HCL 60 MG CAP PO SCH (08:31)
[2022-06-01] MEDS: cloZAPine 25 MG TAB PO SCH (08:31)
[2022-06-01] MEDS: lisinopril 5 MG TAB PO SCH ×2 (08:32→12:12)
[2022-06-01] MEDS: METOPROLOL SUCC 25MG EXT REL TAB PO SCH ×2 (08:32→12:13)
--- NOTE | 2022-06-01 14:47 | XRay Report ---
XR chest 1V portable CLINICAL HISTORY: covid 19 infection, r/o pneumonia COMPARISON STUDY: Chest radiograph May 30, 2022. FINDINGS: There is no pneumothorax. Suspected trace left pleural effusion is present. There is no joão dence for pulmonary edema. Cardiomediastinal silhouette is stable. Skinfold projects over the left ch est. There is possible right infrahilar consolidation. There is also possible left infrahilar opacity . IMPRESSION: Possible bilateral infrahilar consolidation. This may reflect pneumonia. ACT 112: Negative or not required by law. Electronically signed by: Lukas Law M.D. 06/01/2022 2:45 PM
[2022-06-01] MEDS: ACETAMINOPHEN 500 MG TAB PO PRN (15:29)
--- NOTE | 2022-06-01 16:48 | Hospitalist Progress Note ---
Date of Service June 01, 2022 Assessment & Plan (1) Acute metabolic encephalopathy: (2) COVID-19: (3) DM2 (diabetes mellitus, type 2): (4) Hypertension: (5) Migraine: (6) Anxiety: (7) Hypothyroidism: (8) Schizophrenia: (9) Somatization disorder: (10) HLD (hyperlipidemia): Plan: (1) Acute metabolic encephalopathy: Plan: Today she is more obtunded, uncertain etiology, possible pharmacological side effect? She is maintaining an airway and not tachypneic. Workup for underlying cause has been unrevealing so far. Awaiting EKG, trop, lactate. However, abdomen is soft NTND and there was no other s/sx of ACS overnight. Cont to hold all medications especially steorids and remdesivir which are new, and hold all psych meds for now. Allow time to wake up and improve. Urine tox screen also ordered. -- resolving -- alert, oriented x 2 today -- from COVID 19 infection? adverse reaction from Decadron or Remdesivir? -- CT head: negative -- management of COVID infection per below no other signs of infection -- resume usual Psych meds today, monitor 12/ Was drowsy again this morning, but better towards lunchtime Continue to monitor closely (2) COVID-19: Plan: not hypoxic CXR: no Pneumonia received 1 day of Remdesivir and Decadron--> held due to altered mental status, obtunded -- Remains on room air CXR: Possible bilateral infrahilar consolidation. This may reflect pneumonia. Will resume remdesivir today and monitor patient closely Patient has several risk factors factors for progression to severe disease Possible UTI T-max 38 degrees overnight Urine culture: Pending Aztreonam started, continue (3) DM2 (diabetes mellitus, type 2): Plan: chronic, at goal and managed with basal bolus insulin. Hold short acting insul in while sleeping. Decrease glargine to 50% of current dose while NPO. -- BSG 72-181 -- on ISS for now (4) Hypertension: Plan: -- continue usual Lisinopril, Metoprolol monitor (5) Migraine: Plan: -- no headache today (6) Anxiety: Plan: -- continue usual Psych Meds (7) Hypothyroidism: Plan: -- continue Levothyroxine (8) Schizophrenia: Plan: -- continue usual Psych meds (9) Somatization disorder: (10) HLD (hyperlipidemia): (11) DVT prophylaxis: Plan: Heparin Full Code Disposition -- anticipate return to [facility] when Medically stable (11) DVT prophylaxis: Admission and Anticipated Discharge Date Admission Date: May 28, 2022 Subjective Follow-up for COVID-19 infection, UTI, etc. Seen resting in bed, sitting up, awake and alert Answers most questions appropriately Earlier this morning patient was drowsy again per RN, improved by lunchtime States she feels fine overall Denies shortness of breath, cough, chest pain, leg pain No other symptoms Review of Systems Review of Systems: all noted and negative except for above Physical Exam Physical Exam: General- oriented x 2, not in distress, speaks in sentences with no effort or accessory muscle use Eyes- anicteric Neck- no JVD Lungs- clear breath sounds bilaterally, no crackles or wheezing Heart- normal rate, regular rhythm; no murmurs Abdomen- normal bowel sounds, nondistended, soft, tenderness Extremities- no pretibial edema, no calf tenderness Neuro- alert, oriented x 2; no gross focal neurologic deficits Skin- warm & dry Results & Data Results & Data ([facility]) Vital Signs (Past 12 Hours) Vital Signs Temp Pulse Pulse Resp BP Pulse Ox O2 Del Method 06/01/22 15:53 37.0 C 73 16 166/82 H 98 Room Air 06/01/22 15:36 75 06/01/22 12:25 36.7 C 72 16 153/74 H 99 Room Air 06/01/22 08:38 37.3 C 76 16 164/92 H 95 Room Air 06/01/22 07:21 71 all noted and reviewed including below (1) Hypertension Hypertension type: unspecified Qualified Code(s): I10 - Essential (primary) hypertension
[2022-06-01] MEDS: NORTRIPTYLINE HCL 25 MG CAP PO SCH (20:33)
[2022-06-01] MEDS: cloZAPine 100 MG TAB PO SCH (20:33)
[2022-06-02] MEDS: AZTREONAM 1,000 MG in DEXTROSE 5% 100 ML IV SCH (06:29)
[2022-06-02] MEDS: HEPARIN SOD 5,000 UNIT/0.5 ML VIAL SQ SCH ×3 (06:30→20:48)
[2022-06-02] MEDS: cloZAPine 25 MG TAB PO SCH (07:41)
[2022-06-02] MEDS: lisinopril 5 MG TAB PO SCH (07:42)
[2022-06-02] MEDS: DULoxetine HCL 60 MG CAP PO SCH (07:43)
[2022-06-02] MEDS: METOPROLOL SUCC 25MG EXT REL TAB PO SCH (07:43)
[2022-06-02] MEDS: GABAPENTIN 100 MG CAP PO SCH ×3 (07:43→20:47)
[2022-06-02] MEDS: ASPIRIN 81 MG CHEW PO SCH (07:44)
[2022-06-02] MEDS: INSULIN ASPART PER UNIT SC SCH ×4 (08:28→20:55)
[2022-06-02] MEDS: REMDESIVIR 100 MG in SODIUM CHLORIDE 0.9% 230 ML IV SCH (12:06)
[2022-06-02] MEDS: CEFDINIR 300 MG CAP PO SCH ×2 (13:18→20:47)
--- NOTE | 2022-06-02 17:38 | Hospitalist Progress Note ---
Date of Service June 02, 2022 Assessment & Plan (1) Acute metabolic encephalopathy: (2) COVID-19: (3) DM2 (diabetes mellitus, type 2): (4) Hypertension: (5) Migraine: (6) Anxiety: (7) Hypothyroidism: (8) Schizophrenia: (9) Somatization disorder: (10) HLD (hyperlipidemia): Plan: (1) Acute metabolic encephalopathy: Plan: Today she is more obtunded, uncertain etiology, possible pharmacological side effect? She is maintaining an airway and not tachypneic. Workup for underlying cause has been unrevealing so far. Awaiting EKG, trop, lactate. However, abdomen is soft NTND and there was no other s/sx of ACS overnight. Cont to hold all medications especially steorids and remdesivir which are new, and hold all psych meds for now. Allow time to wake up and improve. Urine tox screen also ordered. -- resolving -- alert, oriented x 2 today -- from COVID 19 infection? adverse reaction from Decadron or Remdesivir? -- CT head: negative -- management of COVID infection per below no other signs of infection -- resume usual Psych meds today, monitor 12/2 Mental status improving Appetite is good Management of COVID and UTI as noted below (2) COVID-19: Plan: not hypoxic CXR: no Pneumonia received 1 day of Remdesivir and Decadron--> held due to altered mental status, obtunded -- Remains on room air CXR: Possible bilateral infrahilar consolidation. This may reflect pneumonia. -- Tolerating remdesivir well so far Continue to monitor E. coli UTI Urine culture: E. coli, sensitivities noted No urinary symptoms Clinically improving Continue aztreonam day #2 (3) DM2 (diabetes mellitus, type 2): Plan: chronic, at goal and managed with basal bolus insulin. Hold short acting insulin while sleeping. Decrease glargine to 50% of current dose while NPO. -- BSG 115-179 -- on ISS for now, adjusted to avoid hypoglycemia (4) Hypertension: Plan: -- continue usual Lisinopril, Metoprolol monitor (5) Migraine: Plan: -- no headache today (6) Anxiety: Plan: -- continue usual Psych Meds (7) Hypothyroidism: Plan: -- continue Levothyroxine (8) Schizophrenia: Plan: -- continue usual Psych meds (9) Somatization disorder: (10) HLD (hyperlipidemia): (11) DVT prophylaxis: Plan: Heparin Full Code Disposition -- anticipate return to [facility] when Medically stable (11) DVT prophylaxis: Admission and Anticipated Discharge Date Admission Date: May 28, 2022 Subjective Follow-up for medical encephalopathy, COVID infection, UTI, etc. Seen resting in bed, comfortable, not in distress oriented X2 States she feels fine overall, improved today Has nasal congestion, but denies shortness of breath or cough, chest pain Denies abdominal pain, urinary symptoms Review of Systems Review of Systems: all noted and negative except for above Physical Exam Physical Exam: General- oriented x2, not in distress, speaks in sentences with no effort or accessory muscle use Eyes- anicteric Neck- no JVD Lungs- clear breath sounds bilaterally, no crackles, no wheezing Heart- normal rate, regular rhythm; no murmurs Abdomen- normal bowel sounds, nondistended, soft, nontender Extremities- no pretibial edema, no calf tenderness Neuro- alert, oriented x 2; no gross focal neurologic deficits Skin- warm & dry Results & Data Results & Data ([facility]) Vital Signs (Past 12 Hours) Vital Signs Temp Pulse Pulse Resp BP Pulse Ox O2 Del Method 06/02/22 15:37 74 06/02/22 07:37 36.7 C 76 18 164/81 H 97 Room Air 06/02/22 06:56 76 all noted and reviewed including below (1) Hypertension Hypertension type: unspecified Qualified Code(s): I10 - Essential (primary) hypertension
[2022-06-02] MEDS: cloZAPine 100 MG TAB PO SCH (20:47)
[2022-06-02] MEDS: NORTRIPTYLINE HCL 25 MG CAP PO SCH (20:55)
[2022-06-03] MEDS: HEPARIN SOD 5,000 UNIT/0.5 ML VIAL SQ SCH ×3 (05:50→22:15)
[2022-06-03 07:41] LABS: Albumin Globulin Ratio 1.3 (0.9-2); Albumin Level 2.8 gm/dl (3.4-5.0); BUN Creatinine Ratio 24.4 (10-20); Bilirubin,Total 0.5 mg/dl (0.2-1.0); Calcium 7.9 mg/dl (8.5-10.1); Creatinine Clr Calc Pharmacy 111.6 ml/min; Est GFR (African American) 119.6 ml/min; Est GFR (Non-African American) 103.2 ml/min; Globulin 2.2 gm/dl (2.5-4.0); Potassium 3.1 mmol/L (3.5-5.1)
[2022-06-03] MEDS: INSULIN ASPART PER UNIT SC SCH ×4 (08:29→22:15)
[2022-06-03] MEDS ORDERED: POTASSIUM CHLORIDE CRTAB 20 MEQ TABCR PO STA (08:39)
[2022-06-03] MEDS: CEFDINIR 300 MG CAP PO SCH ×2 (09:56→22:14)
[2022-06-03] MEDS: lisinopril 10 MG TAB PO SCH (09:57)
[2022-06-03] MEDS: GABAPENTIN 100 MG CAP PO SCH ×3 (09:57→22:14)
[2022-06-03] MEDS: DULoxetine HCL 60 MG CAP PO SCH (09:57)
[2022-06-03] MEDS: METOPROLOL SUCC 25MG EXT REL TAB PO SCH (09:57)
[2022-06-03] MEDS: cloZAPine 25 MG TAB PO SCH (09:57)
[2022-06-03] MEDS: ASPIRIN 81 MG CHEW PO SCH (13:59)
[2022-06-03] MEDS: REMDESIVIR 100 MG in SODIUM CHLORIDE 0.9% 230 ML IV SCH (15:16)
--- NOTE | 2022-06-03 17:25 | Hospitalist Progress Note ---
Date of Service June 03, 2022 Assessment & Plan (1) Acute metabolic encephalopathy: (2) COVID-19: (3) DM2 (diabetes mellitus, type 2): (4) Hypertension: (5) Migraine: (6) Anxiety: (7) Hypothyroidism: (8) Schizophrenia: (9) Somatization disorder: (10) HLD (hyperlipidemia): Plan: (1) Acute metabolic encephalopathy: Plan: Today she is more obtunded, uncertain etiology, possible pharmacological side effect? She is maintaining an airway and not tachypneic. Workup for underlying cause has been unrevealing so far. Awaiting EKG, trop, lactate. However, abdomen is soft NTND and there was no other s/sx of ACS overnight. Cont to hold all medications especially steorids and remdesivir which are new, and hold all psych meds for now. Allow time to wake up and improve. Urine tox screen also ordered. -- resolving -- alert, oriented x 2 today -- from COVID 19 infection? adverse reaction from Decadron or Remdesivir? -- CT head: negative -- management of COVID infection per below no other signs of infection -- resume usual Psych meds today, monitor 12/3 Was drowsy again this morning, improving in the afternoon Continue to monitor closely Management of COVID and UTI as noted below (2) COVID-19: Plan: not hypoxic CXR: no Pneumonia received 1 day of Remdesivir and Decadron--> held due to altered mental status, obtunded -- Remains on room air CXR: Possible bilateral infrahilar consolidation. This may reflect pneumonia. -- Tolerating remdesivir .Drowsiness is secondary to remdesivir Continue to monitor E. coli UTI Urine culture: E. coli, sensitivities noted No urinary symptoms Clinically improving Continue aztreonam day #3 (3) DM2 (diabetes mellitus, type 2): Plan: chronic, at goal and managed with basal bolus insulin. Hold short acting insulin while sleeping. Decrease glargine to 50% of current dose while NPO. -- BSG 122 -- on ISS for now, adjusted to avoid hypoglycemia (4) Hypertension: Plan: --Not at goal, lisinopril increased to 10 mg -- continue Metoprolol monitor (5) Migraine: Plan: -- no headache today (6) Anxiety: Plan: -- continue usual Psych Meds (7) Hypothyroidism: Plan: -- continue Levothyroxine (8) Schizophrenia: Plan: -- continue usual Psych meds (9) Somatization disorder: (10) HLD (hyperlipidemia): (11) DVT prophylaxis: Plan: Heparin Full Code Disposition -- anticipate return to [facility] when Medically stable (11) DVT prophylaxis: Admission and Anticipated Discharge Date Admission Date: May 28, 2022 Subjective Follow-up for COVID-19 infection, UTI, etc. Noted to be drowsy earlier in the morning as per RN Improving now Seen sitting up in bed, watching TV, having some less States that she feels improved compared to yesterday No shortness of breath, cough improving Denies nausea vomiting, abdominal pain no other symptoms Review of Systems Review of Systems: all noted and negative except for above Physical Exam Physical Exam: General- oriented x 3, not in distress, speaks in sentences with no effort or accessory muscle use Eyes- anicteric Neck- no JVD Lungs- clear breath sounds bilaterally, crackles, no wheezing, good air entry bilaterally Heart- normal rate, regular rhythm; no murmurs Abdomen- normal bowel sounds, nondistended, soft, no tenderness Extremities- no pretibial edema, no calf tenderness Neuro- alert, oriented x 3; no gross focal neurologic deficits Skin- warm & dry Results & Data Results & Data ([facility]) Vital Signs (Past 12 Hours) Vital Signs Temp Pulse Pulse Resp BP Pulse Ox O2 Del Method 06/03/22 16:33 37.1 C 85 20 146/75 H 94 Room Air 06/03/22 08:00 87 06/03/22 12:18 37.0 C 87 18 173/76 H 97 Room Air 06/03/22 08:24 37.5 C 79 20 163/84 H 94 Room Air all noted and reviewed including below (1) Hypertension Hypertension type: unspecified Qualified Code(s): I10 - Essential (primary) hypertension
[2022-06-03] MEDS: ACETAMINOPHEN 500 MG TAB PO PRN (22:13)
[2022-06-03] MEDS: cloZAPine 100 MG TAB PO SCH (22:14)
[2022-06-03] MEDS: NORTRIPTYLINE HCL 25 MG CAP PO SCH (22:14)
[2022-06-03] MEDS: PSYLLIUM or GUAR GUM FIBER POWDER PACKET PO PRN (22:15)
[2022-06-04] MEDS: HEPARIN SOD 5,000 UNIT/0.5 ML VIAL SQ SCH ×3 (05:02→21:03)
[2022-06-04 07:11] LABS: Albumin Globulin Ratio 1.3 (0.9-2); Albumin Level 2.8 gm/dl (3.4-5.0); BUN Creatinine Ratio 37.2 (10-20); Bilirubin,Total 0.5 mg/dl (0.2-1.0); Creatinine Clr Calc Pharmacy 106.4 ml/min; Est GFR (African American) 117.8 ml/min; Est GFR (Non-African American) 101.6 ml/min; Globulin 2.2 gm/dl (2.5-4.0); Potassium 3.4 mmol/L (3.5-5.1)
[2022-06-04] MEDS: INSULIN ASPART PER UNIT SC SCH ×4 (08:16→20:45)
[2022-06-04] MEDS ORDERED: POTASSIUM CHLORIDE CRTAB 20 MEQ TABCR PO STA (08:27)
[2022-06-04] MEDS: POLYETHYLENE (MIRALAX) 17 GM PACK PO PRN (09:04)
[2022-06-04] MEDS: ACETAMINOPHEN 500 MG TAB PO PRN (09:05)
[2022-06-04] MEDS: CEFDINIR 300 MG CAP PO SCH ×2 (09:06→20:59)
[2022-06-04] MEDS: cloZAPine 25 MG TAB PO SCH (09:07)
[2022-06-04] MEDS: DULoxetine HCL 60 MG CAP PO SCH (09:07)
[2022-06-04] MEDS: lisinopril 10 MG TAB PO SCH (09:07)
[2022-06-04] MEDS: GABAPENTIN 100 MG CAP PO SCH ×3 (09:08→20:59)
[2022-06-04] MEDS: METOPROLOL SUCC 25MG EXT REL TAB PO SCH (09:08)
[2022-06-04] MEDS: ASPIRIN 81 MG CHEW PO SCH (09:21)
[2022-06-04] MEDS: REMDESIVIR 100 MG in SODIUM CHLORIDE 0.9% 230 ML IV SCH (12:30)
--- NOTE | 2022-06-04 14:58 | Hospitalist Progress Note ---
Date of Service June 04, 2022 Assessment & Plan (1) Acute metabolic encephalopathy: (2) COVID-19: (3) DM2 (diabetes mellitus, type 2): (4) Hypertension: (5) Migraine: (6) Anxiety: (7) Hypothyroidism: (8) Schizophrenia: (9) Somatization disorder: (10) HLD (hyperlipidemia): Plan: (1) Acute metabolic encephalopathy: Plan: Today she is more obtunded, uncertain etiology, possible pharmacological side effect? She is maintaining an airway and not tachypneic. Workup for underlying cause has been unrevealing so far. Awaiting EKG, trop, lactate. However, abdomen is soft NTND and there was no other s/sx of ACS overnight. Cont to hold all medications especially steorids and remdesivir which are new, and hold all psych meds for now. Allow time to wake up and improve. Urine tox screen also ordered. -- resolving -- alert, oriented x 2 today -- from COVID 19 infection? adverse reaction from Decadron or Remdesivir? -- CT head: negative -- management of COVID infection per below no other signs of infection -- resume usual Psych meds today, monitor 12/ answers most questions appropriately Management of COVID and UTI as noted below (2) COVID-19: Plan: not hypoxic CXR: no Pneumonia received 1 day of Remdesivir and Decadron--> held due to altered mental status, obtunded -- Remains on room air CXR: Possible bilateral infrahilar consolidation. This may reflect pneumonia. -- Tolerating remdesivir so far, continue -- respiratory status stable E. coli UTI Urine culture: E. coli, sensitivities noted No urinary symptoms Clinically improving Continue Cefdinir PO BID day 3 (3) DM2 (diabetes mellitus, type 2): Plan: chronic, at goal and managed with basal bolus insulin. Hold short acting insulin while sleeping. Decrease glargine to 50% of current dose while NPO. -- BSG 109 111 -- on ISS for now, adjusted to avoid hypoglycemia (4) Hypertension: Plan: --Not at goal, lisinopril increased to 10 mg -- continue Metoprolol monitor (5) Migraine: Plan: -- no headache today (6) Anxiety: Plan: -- continue usual Psych Meds (7) Hypothyroidism: Plan: -- continue Levothyroxine (8) Schizophrenia: Plan: -- continue usual Psych meds (9) Somatization disorder: (10) HLD (hyperlipidemia): (11) DVT prophylaxis: Plan: Heparin Full Code Disposition -- anticipate return to [facility] tomorrow (11) DVT prophylaxis: Admission and Anticipated Discharge Date Admission Date: May 28, 2022 Subjective ff up for covid infection, uti, etc seen resting in bed, sleeping but awakens easily states she feels fine overall no chest pain, dyspnea, palpitations, dizziness no cough no abdominal pain, nausea/vomiting no other symptoms Review of Systems Review of Systems: all noted and negative except for above Physical Exam Physical Exam: General- oriented x 1-2, not in distress, speaks in sentences with no effort or accessory muscle use Eyes- anicteric Neck- no JVD Lungs- clear BS bilaterally, no rales/wheezes Heart- normal rate, regular rhythm; no murmurs Abdomen- normal bowel sounds, nondistended, soft, nontender Extremities- no pretibial edema, no calf tenderness Neuro- alert, oriented x 1-2; no gross focal neurologic deficits Skin- warm & dry Results & Data Results & Data ([facility]) Vital Signs (Past 12 Hours) Vital Signs Temp Pulse Pulse Resp BP BP Pulse Ox 06/04/22 12:24 37.3 C 82 20 144/77 H 95 06/04/22 08:00 06/04/22 07:56 36.7 C 80 18 161/84 H 97 06/04/22 07:20 85 06/04/22 04:42 37 C 81 16 136/83 94 O2 Del Method 06/04/22 12:24 Room Air 06/04/22 08:00 Room Air 06/04/22 07:56 Room Air 06/04/22 07:20 06/04/22 04:42 Room Air all noted and reviewed including below (1) Hypertension Hypertension type: unspecified Qualified Code(s): I10 - Essential (primary) hypertension
[2022-06-04] MEDS: cloZAPine 100 MG TAB PO SCH (20:58)
[2022-06-04] MEDS: NORTRIPTYLINE HCL 25 MG CAP PO SCH (21:00)
[2022-06-04] MEDS ORDERED: lisinopril 10 MG TAB PO ONE (23:25)
[2022-06-05] MEDS: HEPARIN SOD 5,000 UNIT/0.5 ML VIAL SQ SCH ×3 (05:48→21:04)
[2022-06-05] MEDS: INSULIN ASPART PER UNIT SC SCH ×4 (08:37→21:03)
[2022-06-05 08:38] LABS: Albumin Globulin Ratio 1.4 (0.9-2); Albumin Level 2.9 gm/dl (3.4-5.0); BUN Creatinine Ratio 27.5 (10-20); Bilirubin,Total 0.5 mg/dl (0.2-1.0); Calcium 8.2 mg/dl (8.5-10.1); Creatinine Clr Calc Pharmacy 89.7 ml/min; Est GFR (African American) 111.3 ml/min; Est GFR (Non-African American) 96.1 ml/min; Globulin 2.1 gm/dl (2.5-4.0); Potassium 3.7 mmol/L (3.5-5.1)
[2022-06-05] MEDS: ASPIRIN 81 MG CHEW PO SCH (09:16)
[2022-06-05] MEDS: CEFDINIR 300 MG CAP PO SCH ×2 (09:17→20:42)
[2022-06-05] MEDS: GABAPENTIN 100 MG CAP PO SCH ×3 (09:18→20:40)
[2022-06-05] MEDS: DULoxetine HCL 60 MG CAP PO SCH (09:18)
[2022-06-05] MEDS: cloZAPine 25 MG TAB PO SCH (09:18)
[2022-06-05] MEDS: METOPROLOL SUCC 25MG EXT REL TAB PO SCH (09:19)
[2022-06-05] MEDS: lisinopril 20 MG TAB PO SCH (09:20)
[2022-06-05] MEDS: PSYLLIUM or GUAR GUM FIBER POWDER PACKET PO PRN (09:21)
[2022-06-05] MEDS: REMDESIVIR 100 MG in SODIUM CHLORIDE 0.9% 230 ML IV SCH (12:40)
[2022-06-05] MEDS: ACETAMINOPHEN 500 MG TAB PO PRN ×2 (13:46→20:38)
--- NOTE | 2022-06-05 19:51 | Hospitalist Progress Note ---
Date of Service June 05, 2022 delayed entry date of service noted above Assessment & Plan (1) Acute metabolic encephalopathy: (2) COVID-19: (3) DM2 (diabetes mellitus, type 2): (4) Hypertension: (5) Migraine: (6) Anxiety: (7) Hypothyroidism: (8) Schizophrenia: (9) Somatization disorder: (10) HLD (hyperlipidemia): Plan: (1) Acute metabolic encephalopathy: Plan: Today she is more obtunded, uncertain etiology, possible pharmacological side effect? She is maintaining an airway and not tachypneic. Workup for underlying cause has been unrevealing so far. Awaiting EKG, trop, lactate. However, abdomen is soft NTND and there was no other s/sx of ACS overnight. Cont to hold all medications especially steorids and remdesivir which are new, and hold all psych meds for now. Allow time to wake up and improve. Urine tox screen also ordered. -- resolving -- alert, oriented x 2 today -- from COVID 19 infection? adverse reaction from Decadron or Remdesivir? -- CT head: negative -- management of COVID infection per below no other signs of infection -- resume usual Psych meds today, monitor 12/5 awake, alert answers most questions appropriately Management of COVID and UTI as noted below (2) COVID-19: Plan: not hypoxic CXR: no Pneumonia received 1 day of Remdesivir and Decadron--> held due to altered mental status, obtunded -- Remains on room air CXR: Possible bilateral infrahilar consolidation. This may reflect pneumonia. -- Tolerating remdesivir -- respiratory status stable E. coli UTI Urine culture: E. coli, sensitivities noted No urinary symptoms Clinically improving Continue Cefdinir PO BID (3) DM2 (diabetes mellitus, type 2): Plan: chronic, at goal and managed with basal bolus insulin. Hold short acting insu anjum while sleeping. Decrease glargine to 50% of current dose while NPO. -- on ISS for now, adjusted to avoid hypoglycemia (4) Hypertension: Plan: --Not at goal, lisinopril increased to 10 mg -- continue Metoprolol monitor (5) Migraine: Plan: -- no headache today (6) Anxiety: Plan: -- continue usual Psych Meds (7) Hypothyroidism: Plan: -- continue Levothyroxine (8) Schizophrenia: Plan: -- continue usual Psych meds (9) Somatization disorder: (10) HLD (hyperlipidemia): (11) DVT prophylaxis: Plan: Heparin Full Code Disposition -- anticipate return to [facility] tomorrow (11) DVT prophylaxis: Admission and Anticipated Discharge Date Admission Date: May 28, 2022 Subjective ff up for COVID 19 infection, UTI, etc seen resting in bed, comfortable sitting up, awake, alert answers most questions appropriately states she feels fine overall no chest pain, dyspnea, palpitation minimal cough no abdominal pain appetite ok no other symptoms Review of Systems Review of Systems: all noted and negative except for above Physical Exam Physical Exam: General- oriented x 1-2, not in distress, speaks in sentences with no effort or accessory muscle use Eyes- anicteric Neck- no JVD Lungs- clear BS bilaterally, no rales/wheezes Heart- normal rate, regular rhythm; no murmurs Abdomen- normal bowel sounds, nondistended, soft, nontender Extremities- no pretibial edema, no calf tenderness Neuro- alert, oriented x 1-2; no gross focal neurologic deficits Skin- warm & dry Results & Data Results & Data ([facility]) Vital Signs (Past 12 Hours) Vital Signs Temp Pulse Pulse Resp BP BP Pulse Ox 06/05/22 16:00 75 06/05/22 14:33 37.2 C 74 16 128/74 94 06/05/22 12:10 36.7 C 74 16 151/78 H 95 06/05/22 08:00 06/05/22 08:20 37.0 C 83 20 141/72 H 95 O2 Del Method 06/05/22 16:00 06/05/22 14:33 Room Air 06/05/22 12:10 Room Air 06/05/22 08:00 Room Air 06/05/22 08:20 Room Air all noted and reviewed including below (1) Hypertension Hypertension type: unspecified Qualified Code(s): I10 - Essential (primary) hypertension
[2022-06-05] MEDS: POLYETHYLENE (MIRALAX) 17 GM PACK PO PRN (20:35)
[2022-06-05] MEDS: cloZAPine 100 MG TAB PO SCH (20:40)
[2022-06-05] MEDS: NORTRIPTYLINE HCL 25 MG CAP PO SCH (20:41)
[2022-06-06] MEDS: HEPARIN SOD 5,000 UNIT/0.5 ML VIAL SQ SCH ×2 (05:54→13:26)
[2022-06-06] MEDS: INSULIN ASPART PER UNIT SC SCH ×2 (08:45→12:33)
[2022-06-06] MEDS: GABAPENTIN 100 MG CAP PO SCH ×2 (08:47→13:26)
[2022-06-06] MEDS: PSYLLIUM or GUAR GUM FIBER POWDER PACKET PO PRN (08:47)
[2022-06-06] MEDS: POLYETHYLENE (MIRALAX) 17 GM PACK PO PRN (08:48)
[2022-06-06] MEDS: CEFDINIR 300 MG CAP PO SCH (08:48)
[2022-06-06] MEDS: DULoxetine HCL 60 MG CAP PO SCH (08:49)
[2022-06-06] MEDS: lisinopril 20 MG TAB PO SCH (08:49)
[2022-06-06] MEDS: cloZAPine 25 MG TAB PO SCH (08:49)
[2022-06-06] MEDS: METOPROLOL SUCC 25MG EXT REL TAB PO SCH (08:50)
[2022-06-06] MEDS: ASPIRIN 81 MG CHEW PO SCH (08:50)
[2022-06-06 10:41] LABS: Basophils # (auto) 0.02 K/uL (0-0.2); Basophils % (auto) 0.3 %; Hematocrit (blood only) 30.6 % (34.1-44.9); Hemoglobin 10.5 g/dl (12.0-16.0); Immature Granulocytes # (auto) 0.07 K/uL (0.00-0.02); Immature Granulocytes % (auto) 0.9 %; Lymphocytes # (auto) 1.03 K/uL (1.2-3.4); Lymphocytes % (auto) 13.9 %; Mean Corpuscular Hemoglobin 30.4 pg (25.0-34.0); Mean Corpuscular Hgb Conc 34.3 g/dL (32.0-36.0); Mean Corpuscular Volume 88.7 fL (80.0-100.0); Mean Platelet Volume 9.9 fL (9.4-12.3); Monocytes # (auto) 0.49 K/uL (0.24-0.82); Monocytes % (auto) 6.6 %; Neutrophils % (auto) 78.3 %; Platelet Count 269 K/uL (130-400); RDW Coefficient of Variation 14.6 % (11.5-14.5); Red Blood Count 3.45 M/uL (3.93-5.22); White Blood Count 7.41 K/ul (4.8-10.8)
[2022-06-06 11:42] LABS: Albumin Globulin Ratio 1.4 (0.9-2); BUN Creatinine Ratio 32.5 (10-20); Bilirubin,Total 0.5 mg/dl (0.2-1.0); Calcium 8.4 mg/dl (8.5-10.1); Creatinine Clr Calc Pharmacy 114.4 ml/min; Est GFR (African American) 120.6 ml/min; Est GFR (Non-African American) 104.1 ml/min; Globulin 2.2 gm/dl (2.5-4.0); Potassium 3.7 mmol/L (3.5-5.1); Total Protein 5.2 gm/dl (6.0-8.3)
[2022-06-06] MEDS ORDERED: LACTULOSE SYRUP 20 GM/30 ML UDC PO ONE (12:00)
--- NOTE | 2022-06-09 14:57 | Hospitalist Progress Note ---
Date of Service June 09, 2022 delayed entry date of service 06/06/22 Assessment & Plan (1) Acute metabolic encephalopathy: (2) COVID-19: (3) DM2 (diabetes mellitus, type 2): (4) Hypertension: (5) Migraine: (6) Anxiety: (7) Hypothyroidism: (8) Schizophrenia: (9) Somatization disorder: (10) HLD (hyperlipidemia): Plan: (1) Acute metabolic encephalopathy: -- resolving -- alert, oriented x 2 today -- from COVID 19 infection? adverse reaction from Decadron or Remdesivir unlikely -- CT head: negative -- management of COVID infection per below no other signs of infection -- resumed usual Psych meds 06/05 awake, alert answers most questions appropriately Management of COVID and UTI as noted below (2) COVID-19: Plan: not hypoxic CXR: no Pneumonia received 1 day of Remdesivir and Decadron--> held due to altered mental status, obtunded -- Remains on room air CXR: Possible bilateral infrahilar consolidation. This may reflect pneumonia. -- Resumed remdesivir, tolerated well, completed 5 day course -- respiratory status stable E. coli UTI Urine culture: E. coli, sensitivities noted No urinary symptoms Clinically improving given Cefdinir PO BID (3) DM2 (diabetes mellitus, type 2): Plan: given ISS (4) Hypertension: Plan: --Not at goal, lisinopril increased to 10 mg -- continue Metoprolol monitor (5) Migraine: Plan: -- no headaches (6) Anxiety: Plan: -- continue usual Psych Meds (7) Hypothyroidism: Plan: -- continue Levothyroxine (8) Schizophrenia: Plan: -- continue usual Psych meds (9) Somatization disorder: (10) HLD (hyperlipidemia): (11) DVT prophylaxis: Plan: Heparin Full Code Disposition -- return to [facility] tomorrow -- ff up with PCP in 1 week (11) DVT prophylaxis: Admission and Anticipated Discharge Date Admission Date: May 28, 2022 Subjective ff up for COVID 19 infeciton, UTI etc seen resting in bed, sleeping but easily awakened states she feels fine overall minimal cough no chest pain, dyspnea, palpitations, dizziness denies abdominal pain, nausea/vomiting eating ok no other symptoms states she is ok for discharge today Review of Systems Review of Systems: all noted and negative except for above Physical Exam Physical Exam: General- oriented x 2, not in distress, speaks in sentences with no effort or accessory muscle use Eyes- anicteric Neck- no JVD Lungs- clear breath sounds bilaterally, no crackles no wheezing Heart- normal rate, regular rhythm; no murmurs Abdomen- normal bowel sounds, nondistended, soft, no tenderness Extremities- no pretibial edema, no calf tenderness Neuro- alert, oriented x 3; no gross focal neurologic deficits Skin- warm & dry Results & Data Results & Data ([facility]) Vital Signs (Past 12 Hours) all noted and reviewed including below (1) Hypertension Hypertension type: unspecified Qualified Code(s): I10 - Essential (primary) hypertension
--- NOTE | 2022-06-09 14:59 | Discharge Summary ---
Discharge Summary Date of Service June 09, 2022 delayed entry date of service 06/06/22 Notes For Next Care Provider Medication Changes From Visit Cefdinir 300 mg p.o. twice daily x2 days Lisinopril 20 mg p.o. daily Admission HPI Per Admitting Provider This is a 71-year-old female with past medical history significant for type 2 diabetes, diabetic polyneuropathy, hypothyroidism, hyperlipidemia, allergic rhinitis, hypertension, GERD, slow transit constipation, urinary incontinence, migraines, schizophrenia, somatization disorder, anxiety who presents from [facility] with confusion. Was admitted earlier this month for E. coli UTI was resistant to Cipro, Levaquin and ampicillin. Was discharged to [facility] on Cefdinir 04/14/2022. During interview this evening, patient is confused and lethargic, only able to answer yes or no questions. Is alert and oriented to self only. Endorses feeling fatigued and having a headache and cough. Denies fever, chills, chest pain, abdominal pain, nausea or vomiting. Unable to obtain remainder of ROS due to cognitive state. Admission Exam Per Admitting Provider General Appearance:WD/WN, vitals as above, NAD, lethargic responds to verbal commands Head: normocephalic, atraumatic Eyes:normal inspection, PERRL, conjunctivae normal, anicteric sclerae ENT: external ear and nose normal, oropharynx normal Neck: normal visual inspection, trachea midline, no thyromegaly Respiratory:normal respiratory effort, lungs clear to auscultation, no wheeze, rales, rhonchi. No accessory muscle use Cardiovascular: regular rate, rhythm, no murmur, normal peripheral pulses, no BLE edema. Vessels: no JVD Chest: normal inspection of chest Abdomen/GI: normal bowel sounds, soft, nontender, no hepatosplenomegaly Extremities/Musculoskeletal: no cyanosis or clubbing, extremities motor str ength 5/5 Neurologic: PERRL, EOMI, accommodation nl, no face palsy, no dysarthria, CN's II-XI intact bilaterally and moves all extremities Psychiatric:A+Ox person only, confused Skin: no rashes, normal color, warm/dry Principal Dx & Hospital Course #1 = Principal Diagnosis (1) Acute metabolic encephalopathy: (1) Acute metabolic encephalopathy: -- resolving patient would have episodes of being drowsy but now mostly awake, alert, eating -- alert, oriented x 2 on discharge day -- from COVID 19 infection? adverse reaction from Decadron or Remdesivir unlikely -- CT head: negative -- management of COVID infection per below no other signs of infection -- resumed usual Psych meds 12/ awake, alert answers most questions appropriately Management of COVID and UTI as noted below (2) COVID-19: Plan: not hypoxic CXR: no Pneumonia received 1 day of Remdesivir and Decadron--> held due to altered mental status, obtunded -- Remains on room air CXR: Possible bilateral infrahilar consolidation. This may reflect pneumonia. -- Resumed remdesivir, tolerated well, completed 5 day course -- respiratory status stable E. coli UTI Urine culture: E. coli, sensitivities noted No urinary symptoms Clinically improving given Cefdinir PO BID (3) DM2 (diabetes mellitus, type 2): Plan: given ISS (4) Hypertension: Plan: --Not at goal, lisinopril increased to 10 mg -- continue Metoprolol monitor (5) Migraine: Plan: -- no headaches (6) Anxiety: Plan: -- continue usual Psych Meds (7) Hypothyroidism: Plan: -- continue Levothyroxine (8) Schizophrenia: Plan: -- continue usual Psych meds (9) Somatization disorder: (10) HLD (hyperlipidemia): (11) DVT prophylaxis: Plan: Heparin Full Code Disposition -- return to [facility] tomorrow -- ff up with PCP in 1 week Discharge Exam General- oriented x 2, not in distress, speaks in sentences with no effort or accessory muscle use Eyes- anicteric Neck- no JVD Lungs- clear breath sounds bilaterally, no crackles no wheezing Heart- normal rate, regular rhythm; no murmurs Abdomen- normal bowel sounds, nondistended, soft, no tenderness Extremities- no pretibial edema, no calf tenderness Neuro- alert, oriented x 3; no gross focal neurologic deficits Skin- warm & dry Updated Medication List Medication Instructions Recorded Confirmed Type duloxetine 60 mg capsule,delayed 60 mg PO QAM 04/14/18 05/28/22 History release (Cymbalta) levothyroxine 50 mcg tablet 50 mcg PO DAILYBB 04/14/18 05/28/22 History (Synthroid) nortriptyline 25 mg capsule 50 mg PO HS 04/14/18 05/28/22 History (Pamelor) omeprazole 20 mg capsule,delayed 40 mg PO HS 04/14/18 05/28/22 History release loratadine 10 mg tablet (Claritin) 10 mg PO HS 03/25/19 05/28/22 History magnesium oxide 400 mg PO QAM 03/25/19 05/28/22 History atorvastatin 20 mg tablet 20 mg PO PM 11/22/19 05/28/22 History sumatriptan succinate 100 mg tablet 100 mg PO DIRECTED PRN Migraine 11/22/19 05/28/22 History Headache gabapentin 100 mg capsule See Rx Instructions .Route .COMPLEX 10/16/20 05/28/22 History clozapine 25 mg tablet 50 mg PO QAM 11/06/20 05/28/22 History metformin 500 mg tablet 500 mg PO QAM 02/24/21 05/28/22 History riboflavin (vitamin B2) 400 mg 400 mg PO QAM 02/24/21 05/28/22 History tablet clozapine 100 mg tablet 300 mg PO HS #30 tabs 04/15/21 05/28/22 Rx metoprolol succinate 50 mg 50 mg PO QAM 04/15/21 05/28/22 History tablet,extended release 24 hr cyanocobalamin (vitamin B-12) 1,000 mcg PO DAILY 05/17/21 05/28/22 History 1,000 mcg tablet (Vitamin B-12) iron,carbonyl 65 mg-vitamin C 125 1 tab PO DAILY 05/17/21 05/28/22 History mg tablet,delayed release (Vitron-C) psyllium 1 tbsp PO TID PRN Constipation 05/17/21 05/28/22 History fluticasone propionate 50 2 spray intranasal DAILY 07/13/21 05/28/22 History mcg/actuation nasal spray,suspension (Flonase Allergy Relief) loperamide 2 mg capsule 2 mg PO QID PRN Diarrhea 07/13/21 05/28/22 History meclizine 25 mg tablet 25 mg PO .Q5HRS PRN DIZZY 07/13/21 05/28/22 History ondansetron 4 mg disintegrating 4 mg PO Q8H PRN Nausea 07/13/21 05/28/22 History tablet cholecalciferol (vitamin D3) 1,250 1,250 mcg PO WK 05/11/22 05/28/22 History mcg (50,000 unit) capsule aspirin 81 mg chewable tablet 81 mg PO DAILY 05/12/22 05/28/22 History (Aspirin Childrens) L.acidop,casei,lactis,rham-B.lact,dwight 2 cap PO DAILY #10 caps 05/16/22 05/28/22 Rx 625 mg (10 billion cell) capsule (Advanced Probiotic) lisinopril 5 mg tablet (Zestril) 5 mg PO QAM 30 days #30 tabs 05/16/22 05/28/22 Rx heparin, porcine (PF) 5,000 5,000 unit (0.5 mL) subcut Q12H 14 06/06/22 Rx unit/0.5 mL injection syringe days #14 mL Hospital Stay Data Consultations 05/28/22 19:22 ED Decision to Admit Stat 05/28/22 20:02 ED Decision to Admit Stat Diagnostic Imagining Performed CT head/brain wo con CLINICAL HISTORY: 71 years-old Female with Altered mental status. Acutely altered mental status TECHNIQUE: Multiple axial CT images of the head were obtained without contrast. A dose lowering technique was utilized adhering to the principles of ALARA. CT DOSE: 691.05 mGy.cm COMPARISON: Head CT 05/11/2022 FINDINGS: No acute intracranial hemorrhage, midline shift, intracranial mass, hydrocephalus, territorial ischemia or abnormal extra-axial collection. Involutional changes with white matter hypodensities suggestive of chronic microvascular ischemic disease. Cerebral vascular calcifications. Chronic right parietal calvarial deformity. No acute calvarial fracture identified. Mastoid air cells and paranasal sinuses are clear. Partially imaged tube within the nasopharynx. Prior bilateral lens repair. The paranasal sinuses, mastoid air cells, and middle ear cavities are clear. IMPRESSION: No acute intracranial abnormality. ACT 112: Negative or not required by law. The above report was generated using voice recognition software. It may contain grammatical, syntax or spelling errors. 05/30/22 05:15 CT head/brain wo con Stat CLINICAL HISTORY: 71 years-old Female with AMS. Acutely altered mental status TECHNIQUE: Multiple axial CT images of the head were obtained without contrast. A dose lowering technique was utilized adhering to the principles of ALARA. CT DOSE: 663.41 mGy.cm COMPARISON: Head CT 05/28/2022 FINDINGS: No acute intracranial hemorrhage, midline shift, intracranial mass, hydrocephalus, territorial ischemia or abnormal extra-axial collection. Involutional changes with white matter hypodensities suggestive of chronic microvascular ischemic disease. Cerebral vascular calcifications. Chronic right parietal calvarial deformity. No acute calvarial fracture identified. Mastoid air cells and paranasal sinuses are clear. Partially imaged tube within the nasopharynx. Prior bilateral lens repair. The paranasal sinuses, mastoid air cells, and middle ear cavities are clear. IMPRESSION: No acute intracranial abnormality. ACT 112: Negative or not required by law. Pending Results Patient Have Any Pending Studies at Discharge: No Discharge Instructions Given to Patient (Per Discharging Provider) PLEASE REFER TO YOUR NEW MEDICATION LIST AND FOLLOW INSTRUCTIONS CAREFULLY. YOUR NEW MEDICATIONS INCLUDE: Cefdinir 300 mg p.o. twice daily x2 days Lisinopril 20 mg p.o. daily Continue incentive spirometer every 4 hours and flutter valve 4 times a day. Continue Mucinex as needed for cough. Please encourage to increase daily fluid intake. Please continue with COVID isolation precautions as patient still having intermittent coughing PLEASE CALL YOUR PRIMARY CARE PHYSICIAN OR RETURN TO THE ER IF WITH WORSENING OF SYMPTOMS, INCLUDING Shortness of breath, cough, fevers or chills, confusion, leg pain, chest pain, etc. Next FOLLOW UP WITH PRIMARY CARE PHYSICIAN at [facility]. Total Time Total Time Spent Total Time Spent (In Minutes): >30 minutes
== END 2022-06-06 14:24 | DRG 177 ==
LOC: ED 17:31 → SUATTDRO 20:14 → EDINP 20:14 → 2N 21:56

== ENCOUNTER 2022-07-13 22:10 | Inpatient (IN) ==
[2022-07-13] MEDS ORDERED: OPTIRAY 320 500ml IV ONE (22:21)
[2022-07-13 22:26] LABS: Basophils # (auto) 0.04 K/uL (0-0.2); Basophils % (auto) 0.6 %; Eosinophils # (auto) 0.01 K/uL (0-0.50); Eosinophils % (auto) 0.1 %; Hemoglobin 10.7 g/dl (12.0-16.0); Immature Granulocytes # (auto) 0.02 K/uL (0.00-0.02); Immature Granulocytes % (auto) 0.3 %; Lymphocytes # (auto) 2.07 K/uL (1.2-3.4); Lymphocytes % (auto) 30.7 %; Mean Corpuscular Hemoglobin 31.3 pg (25.0-34.0); Mean Corpuscular Hgb Conc 33.4 g/dL (32.0-36.0); Mean Corpuscular Volume 93.6 fL (80.0-100.0); Mean Platelet Volume 10.9 fL (9.4-12.3); Monocytes # (auto) 0.73 K/uL (0.24-0.82); Monocytes % (auto) 10.8 %; Neutrophils # (auto) 3.88 K/uL (1.4-6.5); Neutrophils % (auto) 57.5 %; Platelet Count 194 K/uL (130-400); RDW Coefficient of Variation 16.5 % (11.5-14.5); RDW Standard Deviation 57.1 fL (36.4-46.3); Red Blood Count 3.42 M/uL (3.93-5.22); White Blood Count 6.75 K/ul (4.8-10.8)
[2022-07-13 22:38] LABS: Partial Thromboplastin Ratio 0.9; Partial Thromboplastin Time 26.1 Seconds (21.0-31.0); Prothrombin Time 10.8 Seconds (9.0-12.0)
[2022-07-13 23:01] LABS: Troponin I High Sensitivity 6.6 pg/ml (0-14)
[2022-07-13 23:02] LABS: Albumin Globulin Ratio 1.8 (0.9-2); Albumin Level 4.4 gm/dl (3.4-5.0); BUN Creatinine Ratio 27.7 (10-20); Bilirubin,Total 0.5 mg/dl (0.2-1.0); Calcium 9.7 mg/dl (8.5-10.1); Creatinine Clr Calc Pharmacy 35.2 ml/min; Est GFR (African American) 47.5 ml/min; Globulin 2.4 gm/dl (2.5-4.0); Magnesium 2.4 mg/dl (1.7-2.4); Potassium 4.6 mmol/L (3.5-5.1); Total Protein 6.8 gm/dl (6.0-8.3)
[2022-07-13] MEDS ORDERED: ASPIRIN CHEW 324 MG PO STA (23:13)
--- NOTE | 2022-07-13 23:41 | Emergency Department Note ---
Impression & Plan Brain TIA ED Provider Note INFORMANT: Patient and EMS ED PROVIDER(S): Cuauhtemoc Chavis DO CHIEF COMPLAINT: Expressive aphasia PLAN: Disposition: Admission Condition: Good Outpatient prescription management: none Referral: I spoke with the hospitalist, who will see the patient for admission/observation and further evaluation and consultation. MEDICAL DECISION MAKING: This is a 72-year-old female who presents to the ED with a chief complaint of expressive aphasia. The patient was last known well about 2020 5 PM. She was noticed to have expressive aphasia at that time. EMS was called and they transported the patient here. They reported when I talked to them that the patient had garbled speech. She did not have any other focal deficits on their exam. Upon her arrival here, she was speaking. The nurses that took her to the CT scan stated that she was having no difficulty speaking to them. The patient seems to be a little confused about her location. She thought she was at a rehab facility and instead of a hospital. She went through the stroke harsh luation with very good results. She only had some mild right leg weakness and some difficulty with orientation questions. She was reading fluently. She was able to pick out items and name or describe them. A stroke alert was called prior to the patient's arrival. I did speak with the [place] stroke service, Dr. Rudolph. Because of the significantly improved/resolution of her expressive aphasia, she did not need to login to see the patient. CT scan of the head was negative for acute disease. CT scan angiograms of the brain and neck were negative. CBC was unremarkable. Chemistry panel was unremarkable. EKG shows a normal sinus rhythm. I did speak with the hospitalist about the patient. I also spoke with the radiologist about the CT scan of the brain. The patient will be seen by the hospitalist for further evaluation and care. The patient was not a thrombolytic candidate due to the resolution of her symptoms upon her arrival. Triage Nursing notes reviewed. Vital Signs: reviewed Prior /Outside records reviewed: Prior notes reviewed shows that the patient does have a history of schizophrenia with some matization. No previous CVA or TIA. Differential diagnosis: Differential includes acute coronary syndrome, myocardial infarction, CVA, TIA, anemia, infection, pneumonia, UTI, pyelonephritis, poor nutrition, dehydration, electrolyte disturbance,hypoglycemia. Diagnostics, as interpreted by me: 12 lead ECG: Normal sinus rhythm at a rate of 75. No ST elevation. No PVCs. Normal QTC. Cardiac Monitoring: Sinus rhythm in the 70s Medical decision rules: none Imaging studies: CT scan of the brain noncontrast did not reveal any hemorrhage. Procedures: none. Critical care: none. HPI: See MDM above. PAST MEDICAL HISTORY: See Below PAST SURGICAL HISTORY: See Below SOCIAL HISTORY: See Below HOME MEDICATIONS: See Below ALLERGIES: See Below VITALS: See Below PHYSICAL EXAMINATION: CONSTITUTIONAL/VITAL SIGNS: Reviewed GENERAL: Non-toxic in appearance. INTEGUMENTARY: Warm, dry, and [place]. HEAD: Normocephalic. EYES: without scleral icterus. ENT/OROPHARYNX: clear and moist. RESPIRATORY: No increased work of breathing. Lungs clear. CARDIOVASCULAR: Regular rate. Regular rhythm. GI/ABDOMEN: Soft and nontender. . EXTREMITIES: Normal NEUROLOGICAL: Intact without focal deficits. Speaks clearly. Slight orientation confusion. No focal weakness extremity exam her face. PSYCHIATRIC: Normal affect. MUSCULOSKELETAL: Normal. TRIAGE NURSING DOCUMENTATION REVIEWED. Past Med/Surg History Medical History (Updated 07/13/22 @ 23:41 by Cuauhtemoc Chavis DO) Anxiety Dehydration Dizziness DM2 (diabetes mellitus, type 2) GERD (gastroesophageal reflux disease) Well controlled with medication Headache HLD (hyperlipidemia) Hypertension Hypothyroidism Migraine Nausea Neuropathy Schizophrenia Somatization disorder Vertigo Surgical History H/O bilateral cataract extraction H/O brain surgery "abt 1970 R parietal exploration for benign lesion" H/O cystoscopy H/O foot surgery History of cataract surgery History of colonoscopy History of craniotomy 1969, [place] D/T HEADACHE---FOLLOWS W DR. MICHAEL History of tonsillectomy History of tooth extraction WISDOM TEETH S/P foot surgery, left X2 S/P foot surgery, right X2 Family History Grandmother Family history of diabetes mellitus PATERNAL Family/Other Family history of diabetes mellitus UNCLE Father Parkinson disease Mother CHF (congestive heart failure) Social History Smoking Status: Never smoker Second Hand Exposure: Yes (FATHER SMOKED); Hx Alcohol Use: No Hx Substance Use: No Preferred Language: Romanian Communication Ability: Unable Print Color Matcher Required: No Beliefs That Will Affect Care: None marital status: Single Current Living Situation: Alone Current Living Situation Comment: 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 How many Children do You have: 0 Feels Safe at Home: Yes Assistive Devices: Walker Allergies Allergies Allergy/AdvReac Type Severity Reaction Status Date / Time Cephalosporins Allergy Intermediate Hallucinati Verified 07/13/22 22:56 ons Penicillins Allergy Intermediate Hives Verified 07/13/22 22:56 pollen extracts Allergy Intermediate seasonal Verified 07/13/22 22:56 allergy rizatriptan [From Maxalt] Allergy Unknown Unknown Verified 07/13/22 22:56 cyclobenzaprine AdvReac Intermediate neuro Verified 07/13/22 22:56 [From Flexeril] complications Home Meds Home Medications Medication Instructions Recorded Confirmed duloxetine 60 mg capsule,delayed 60 mg PO QAM 04/14/18 07/13/22 release (Cymbalta) levothyroxine 50 mcg tablet 50 mcg PO DAILYBB 04/14/18 07/13/22 (Synthroid) loratadine 10 mg tablet (Claritin) 10 mg PO HS 03/25/19 07/13/22 magnesium oxide 400 mg PO QAM 03/25/19 07/13/22 atorvastatin 20 mg tablet 20 mg PO PM 11/22/19 07/13/22 sumatriptan succinate 100 mg tablet 100 mg PO DAILY PRN Headache 11/22/19 07/13/22 clozapine 25 mg tablet 50 mg PO QAM 11/06/20 07/13/22 metformin 500 mg tablet 500 mg PO QAM 02/24/21 07/13/22 riboflavin (vitamin B2) 400 mg 400 mg PO QAM 02/24/21 07/13/22 tablet metoprolol succinate 50 mg 50 mg PO QAM 04/15/21 07/13/22 tablet,extended release 24 hr cyanocobalamin (vitamin B-12) 1,000 mcg PO DAILY 05/17/21 07/13/22 1,000 mcg tablet (Vitamin B-12) iron,carbonyl 65 mg-vitamin C 125 1 tab PO DAILY 05/17/21 07/13/22 mg tablet,delayed release (Vitron-C) psyllium 1 tsp PO TID PRN Constipation 05/17/21 07/13/22 fluticasone propionate 50 2 spray intranasal DAILY 07/13/21 07/13/22 mcg/actuation nasal spray,suspension (Flonase Allergy Relief) loperamide 2 mg capsule 2 mg PO QID PRN Diarrhea 07/13/21 07/13/22 meclizine 25 mg tablet 25 mg PO .Q5HRS PRN DIZZY 07/13/21 07/13/22 ondansetron 4 mg disintegrating 4 mg PO Q8H PRN Nausea 07/13/21 07/13/22 tablet cholecalciferol (vitamin D3) 1,250 1,250 mcg PO WK 05/11/22 07/13/22 mcg (50,000 unit) capsule aspirin 81 mg chewable tablet 81 mg PO DAILY 05/12/22 07/13/22 (Aspirin Childrens) acetaminophen 325 mg tablet 650 mg PO Q4 PRN pain 1-3 07/13/22 07/13/22 docusate sodium 100 mg capsule 100 mg PO BID 07/13/22 07/13/22 (Colace) lisinopril 20 mg tablet 20 mg PO DAILY 07/13/22 07/13/22 omeprazole 40 mg capsule,delayed 40 mg PO HS 07/13/22 07/13/22 release Previous Rx's Medication Instructions Recorded clozapine 100 mg tablet 300 mg PO HS #30 tabs 04/15/21 Results & Data (ED) Vital Signs Vital Signs - 24 hr 07/13/22 22:18 07/13/22 22:54 Temperature 37.1 C Temperature Source Oral Pulse Rate 80 Pulse Rate [Apical] 81 Respiratory Rate 18 16 Respiratory Effort / Characteristics Non-Labored Spontaneous Non-Labored Spontaneous Respiratory Depth Normal Normal Respiratory Pattern Regular Regular Blood Pressure 145/68 H Blood Pressure [Right Arm] 154/76 H Blood Pressure Mean 93 Blood Pressure Mean [Right Arm] 102 Blood Pressure Position Semi-fowlers Blood Pressure Position [Right Arm] Semi-fowlers Pulse Oximetry 100 100 Oxygen Delivery Method Room Air Room Air Sepsis Recent Fever Within 48 Hours No Sepsis New/Unexplained Change in Mental Status N/A Sepsis Action Taken by Nursing No Action Required Laboratory Data 07/13/22 21:49 07/13/22 21:49 Lab Results 07/13/22 07/13/22 07/13/22 Range/Units 21:49 21:49 21:49 WBC 6.75 (4.8-10.8) K/ul RBC 3.42 L (3.93-5.22) M/uL Hgb 10.7 L (12.0-16.0) g/dl Hct 32.0 L (34.1-44.9) % MCV 93.6 (80.0-100.0) fL MCH 31.3 (25.0-34.0) pg MCHC 33.4 (32.0-36.0) g/dL RDW Std Deviation 57.1 H (36.4-46.3) fL RDW Coeff of Cyn 16.5 H (11.5-14.5) % Plt Count 194 (130-400) K/uL MPV 10.9 (9.4-12.3) fL Immature Gran % (Auto) 0.3 % Neut % (Auto) 57.5 % Lymph % (Auto) 30.7 % Schuyler % (Auto) 10.8 % Eos % (Auto) 0.1 % Baso % (Auto) 0.6 % Neut # (Auto) 3.88 (1.4-6.5) K/uL Lymph # (Auto) 2.07 (1.2-3.4) K/uL [place]yler # (Auto) 0.73 (0.24-0.82) K/uL Eos # (Auto) 0.01 (0-0.50) K/uL Baso # (Auto) 0.04 (0-0.2) K/uL Immature Gran # (Auto) 0.02 (0.00-0.02) K/uL PT 10.8 (9.0-12.0) Seconds INR 1.0 (0.9-1.1) APTT 26.1 (21.0-31.0) Seconds PTT Ratio 0.9 Sodium 136 (136-145) mmol/L Potassium 4.6 (3.5-5.1) mmol/L Chloride 101 (98-107) mmol/L Carbon Dioxide 26 (21-32) mmol/L Anion Gap 9 (3-11) BUN 36 H (6-23) mg/dl Creatinine 1.30 H (0.6-1.2) mg/dl Est Cr Clr Drug Dosing 35.2 ml/min Est GFR ( Amer) 47.5 ml/min Est GFR (Non-Af Amer) 41.0 ml/min BUN/Creatinine Ratio 27.7 H (10-20) Glucose 123 H (70-99(Fasting)) mg/dl POC Glucose (70-99) mg/dl Calcium 9.7 (8.5-10.1) mg/dl Magnesium 2.4 (1.7-2.4) mg/dl Total Bilirubin 0.5 (0.2-1.0) mg/dl AST 16 (13-39) U/L ALT 17 (7-52) U/L Alkaline Phosphatase 71 (34-104) U/L Troponin I High Sens 6.6 (0-14) pg/ml Total Protein 6.8 (6.0-8.3) gm/dl Albumin 4.4 (3.4-5.0) gm/dl Globulin 2.4 L (2.5-4.0) gm/dl Albumin/Globulin Ratio 1.8 (0.9-2) Blood Type Antibody Screen 07/13/22 07/13/22 Range/Units 22:21 22:29 WBC (4.8-10.8) K/ul RBC (3.93-5.22) M/uL Hgb (12.0-16.0) g/dl Hct (34.1-44.9) % MCV (80.0-100.0) fL MCH (25.0-34.0) pg MCHC (32.0-36.0) g/dL RDW Std Deviation (36.4-46.3) fL RDW Coeff of Cyn (11.5-14.5) % Plt Count (130-400) K/uL MPV (9.4-12.3) fL Immature Gran % (Auto) % Neut % (Auto) % Lymph % (Auto) % Schuyler % (Auto) % Eos % (Auto) % Baso % (Auto) % Neut # (Auto) (1.4-6.5) K/uL Lymph # (Auto) (1.2-3.4) K/uL [place]yler # (Auto) (0.24-0.82) K/uL Eos # (Auto) (0-0.50) K/uL Baso # (Auto) (0-0.2) K/uL Immature Gran # (Auto) (0.00-0.02) K/uL PT (9.0-12.0) Seconds INR (0.9-1.1) APTT (21.0-31.0) Seconds PTT Ratio Sodium (136-145) mmol/L Potassium (3.5-5.1) mmol/L Chloride (98-107) mmol/L Carbon Dioxide (21-32) mmol/L Anion Gap (3-11) BUN (6-23) mg/dl Creatinine (0.6-1.2) mg/dl Est Cr Clr Drug Dosing ml/min Est GFR ( Amer) ml/min Est GFR (Non-Af Amer) ml/min BUN/Creatinine Ratio (10-20) Glucose (70-99(Fasting)) mg/dl POC Glucose 111 H (70-99) mg/dl Calcium (8.5-10.1) mg/dl Magnesium (1.7-2.4) mg/dl Total Bilirubin (0.2-1.0) mg/dl AST (13-39) U/L ALT (7-52) U/L Alkaline Phosphatase (34-104) U/L Troponin I High Sens (0-14) pg/ml Total Protein (6.0-8.3) gm/dl Albumin (3.4-5.0) gm/dl Globulin (2.5-4.0) gm/dl Albumin/Globulin Ratio (0.9-2) Blood Type O Positive Antibody Screen NEGATIVE Administered Medications Discontinued Medications Aspirin (Aspirin Chew 324 Mg) 324 mg PO NOW STA Stop: 07/13/22 23:14 Last Admin: 07/13/22 23:23 Dose: 324 mg Documented By: Ioversol (Optiray 320 500ml) 110 ml IV ONCE ONE Stop: 07/13/22 22:22 Last Admin: 07/13/22 22:22 Dose: 110 ml Documented By: [facility] Discharge Plan Visit Data Chief Complaint: Stroke Alert Stated Complaint: STROKE SYMPTOMS ED Provider: Cuauhtemoc Chavis Discharge Problem: Brain TIA Patient Disposition: Being Evaluated by Hospitalist Forms Stand Alone Forms: [facility] Prescriptions Prescriptions: No Action levothyroxine [Synthroid] 50 mcg tablet 50 mcg PO DAILYBB duloxetine [Cymbalta] 60 mg capsule,delayed release(DR/EC) 60 mg PO QAM atorvastatin 20 mg Tablet 20 mg PO PM sumatriptan succinate 100 mg Tablet 100 mg PO DAILY PRN (Reason: Headache) loratadine [Claritin] 10 mg Tablet 10 mg PO HS magnesium oxide 400 mg magnesium Tablet 400 mg PO QAM clozapine 25 mg tablet 50 mg PO QAM metoprolol succinate 50 mg tablet extended release 24 hr 50 mg PO QAM clozapine 100 mg tablet 300 mg PO HS Qty: 30 0RF riboflavin (vitamin B2) 400 mg tablet 400 mg PO QAM metformin 500 mg tablet 500 mg PO QAM Rx Instructions: take with breakfast cyanocobalamin (vitamin B-12) [Vitamin B-12] 1,000 mcg Tablet 1,000 mcg PO DAILY psyllium Powder 1 tsp PO TID PRN (Reason: Constipation) Rx Instructions: MAY TAKE UP TO 3 TIMES PER DAY. Vitron-C 65 mg iron- 125 mg Tablet,Delayed Release (Dr/Ec) 1 tab PO DAILY loperamide 2 mg Capsule 2 mg PO QID PRN (Reason: Diarrhea) meclizine 25 mg Tablet 25 mg PO .Q5HRS PRN (Reason: DIZZY) ondansetron 4 mg Tablet,Disintegrating 4 mg PO Q8H PRN (Reason: Nausea) fluticasone propionate [Flonase Allergy Relief] 50 mcg/actuation [place],Suspension 2 spray INTRANASAL DAILY cholecalciferol (vitamin D3) 1,250 mcg (50,000 unit) capsule 1,250 mcg PO WK Rx Instructions: wednesdays aspirin [Aspirin Childrens] 81 mg Tablet,Chewable 81 mg PO DAILY lisinopril 20 mg tablet 20 mg PO DAILY omeprazole 40 mg capsule,delayed release(DR/EC) 40 mg PO HS docusate sodium [Colace] 100 mg Capsule 100 mg PO BID acetaminophen 325 mg Tablet 650 mg PO Q4 MDD 3g PRN (Reason: pain 1-3) Referrals Referrals: [facility] [Primary Care Provider] -
--- NOTE | 2022-07-14 00:28 | History & Physical Report ---
Date of Service July 14, 2022 Assessment & Plan (1) Acute metabolic encephalopathy: Plan: Multifactorial : ARF, mild clinical dehydration ? neuropsychotropic meds contributory, history of schizophrenia Rule out recurrent UTI hypertension, slightly elevated hypothyroidism, euthyroid as of recent TSH hyperlipidemia on statin Rx DM2 on oral meds, well-controlled as of recent hemoglobin A1c of 6.03 May 2022 history of brain tumor status post partial surgery years ago (unknown pathology), hx somatization disorder chronic anemia, stable OBS Medical telemetry Baseline UA Monitor creatinine response to IVF Appropriate to hold lisinopril for now until creatinine back to baseline Appropriate to hold clozapine until patient mentation back to baseline ISS BG goal 1 10-1 40, carb count coverage. DVT prophylaxis. Heparin subcu Full code as per patient's prior directives. Patient emergency contact/caregiver requesting updates from providers. Ms. Sidney Izaguirre, contact #[phone]. Text document was generated using [employer] voice recognition software. It may contain grammatical or spelling errors. Kindly contact undersigned for clarification of any documentation item in question. History of Present Illness Chief Complaint: Decreased mentation, garbled speech as per records Primary Care Provider: Raymond Vann, History obtained from patient, family, personal care facility staff, and records. Limited history from patient secondary to obtunded state. Medical history significant for hypertension, hypothyroidism, hyperlipidemia, DM2 on oral meds, history of brain tumor status post partial surgery years ago (unknown pathology), somatization disorder, schizophrenia, chronic anemia (baseline hemoglobin of 10 ), recurrent UTIs, urinary incontinence. Two confinements last May 2022 for encephalopathy, recurrent UTIs. Patient discharged to [facility] rehab facility. As per patient caregiver, patient discharged from [facility] rehab facility to [facility] 2 days ago for additional rehab before patient returns home. Last night, patient noted to be weak and glassy eyed. Patient confused and with garbled speech. Patient with nausea symptoms. Stroke alert called upon arrival at the ER. tPA not recommended due to improvement in mentation as per ER provider. Aspirin administered at the ER. Patient currently unable to respond to questions regarding headache, chest pain, SOB, abdominal pain, dysuria symptoms currently due to obtunded state. MEDICAL HISTORY: As above. SURGICAL HISTORY: partial benign brain tumor surgery, foot surgery, cystoscopy, hysteroscopy with biopsy cataract surgeries FAMILY HISTORY: DM, Breast cancer, heart disease PERSONAL AND SOCIAL HISTORY: Nonsmoker. No chronic intake of alcoholic beverages. She is on disability. Allergies Allergy/AdvReac Type Severity Reaction Status Date / Time Cephalosporins Allergy Intermediate Hallucinati Verified 07/13/22 22:56 ons Penicillins Allergy Intermediate Hives Verified 07/13/22 22:56 pollen extracts Allergy Intermediate seasonal Verified 07/13/22 22:56 allergy rizatriptan [From Maxalt] Allergy Unknown Unknown Verified 07/13/22 22:56 cyclobenzaprine AdvReac Intermediate neuro Verified 07/13/22 22:56 [From Flexeril] complications Home Medications Medication Instructions Recorded Confirmed Type duloxetine 60 mg capsule,delayed 60 mg PO QAM 04/14/18 07/13/22 History release (Cymbalta) levothyroxine 50 mcg tablet 50 mcg PO DAILYBB 04/14/18 07/13/22 History (Synthroid) loratadine 10 mg tablet (Claritin) 10 mg PO HS 03/25/19 07/13/22 History magnesium oxide 400 mg PO QAM 03/25/19 07/13/22 History atorvastatin 20 mg tablet 20 mg PO PM 11/22/19 07/13/22 History sumatriptan succinate 100 mg tablet 100 mg PO DAILY PRN Headache 11/22/19 07/13/22 History clozapine 25 mg tablet 50 mg PO QAM 11/06/20 07/13/22 History metformin 500 mg tablet 500 mg PO QAM 02/24/21 07/13/22 History riboflavin (vitamin B2) 400 mg 400 mg PO QAM 02/24/21 07/13/22 History tablet clozapine 100 mg tablet 300 mg PO HS #30 tabs 04/15/21 07/13/22 Rx metoprolol succinate 50 mg 50 mg PO QAM 04/15/21 07/13/22 History tablet,extended release 24 hr cyanocobalamin (vitamin B-12) 1,000 mcg PO DAILY 05/17/21 07/13/22 History 1,000 mcg tablet (Vitamin B-12) iron,carbonyl 65 mg-vitamin C 125 1 tab PO DAILY 05/17/21 07/13/22 History mg tablet,delayed release (Vitron-C) psyllium 1 tsp PO TID PRN Constipation 05/17/21 07/13/22 History fluticasone propionate 50 2 spray intranasal DAILY 07/13/21 07/13/22 History mcg/actuation nasal spray,suspension (Flonase Allergy Relief) loperamide 2 mg capsule 2 mg PO QID PRN Diarrhea 07/13/21 07/13/22 History meclizine 25 mg tablet 25 mg PO .Q5HRS PRN DIZZY 07/13/21 07/13/22 History ondansetron 4 mg disintegrating 4 mg PO Q8H PRN Nausea 07/13/21 07/13/22 History tablet cholecalciferol (vitamin D3) 1,250 1,250 mcg PO WK 05/11/22 07/13/22 History mcg (50,000 unit) capsule aspirin 81 mg chewable tablet 81 mg PO DAILY 05/12/22 07/13/22 History (Aspirin Childrens) acetaminophen 325 mg tablet 650 mg PO Q4 PRN pain 1-3 07/13/22 07/13/22 History docusate sodium 100 mg capsule 100 mg PO BID 07/13/22 07/13/22 History (Colace) lisinopril 20 mg tablet 20 mg PO DAILY 07/13/22 07/13/22 History omeprazole 40 mg capsule,delayed 40 mg PO HS 07/13/22 07/13/22 History release Past Med/Surg History Medical History (Updated 07/14/22 @ 00:05 by Ender Garces) Anxiety Dehydration Dizziness DM2 (diabetes mellitus, type 2) GERD (gastroesophageal reflux disease) Well controlled with medication Headache HLD (hyperlipidemia) Hypertension Hypothyroidism Migraine Nausea Neuropathy Schizophrenia Somatization disorder Vertigo Surgical History H/O bilateral cataract extraction H/O brain surgery "abt 1970 R parietal exploration for benign lesion" H/O cystoscopy H/O foot surgery History of cataract surgery History of colonoscopy History of craniotomy 1969, [place] D/T HEADACHE---FOLLOWS W DR. MICHAEL History of tonsillectomy History of tooth extraction WISDOM TEETH S/P foot surgery, left X2 S/P foot surgery, right X2 Family History Grandmother Family history of diabetes mellitus PATERNAL Family/Other Family history of diabetes mellitus UNCLE Father Parkinson disease Mother CHF (congestive heart failure) Social History Smoking Status: Never smoker Second Hand Exposure: Yes (FATHER SMOKED); Hx Alcohol Use: No Hx Substance Use: No Preferred Language: Faroese Communication Ability: Unable Bar Waiter/Waitress Required: No Beliefs That Will Affect Care: None marital status: Single Current Living Situation: Personal Care Facility Current Living Situation Comment: [facility] How many Children do You have: 0 Feels Safe at Home: Yes Assistive Devices: Walker Review of Systems Review of Systems: Could not be reliably obtained secondary to marked hearing impairment Physical Exam Physical Exam: GENERAL: Obtunded, chronically ill, no respiratory distress SKIN: Pallor, warm HEENT: Pale palpebral conjunctivae, no ptosis, dry buccal mucosa NECK : Supple, no tenderness CHEST : Decreased breath sounds, no tenderness HEART : RRR, no obvious murmurs ABDOMEN: Some distention, nontender EXTREMITIES : No LE swelling/tenderness, no other conspicuous deformities noted NEUROLOGIC : Obtunded, no facial asymmetry, gait and stance not assessed Results & Data Results [facility]) Vital Signs (Past 12 Hours) Vital Signs Temp Pulse Pulse Resp BP BP Pulse Ox 07/14/22 00:05 73 18 145/77 H 98 07/13/22 22:54 82 14 100 07/13/22 22:54 81 16 154/76 H 100 07/13/22 22:18 37.1 C 80 18 145/68 H 100 O2 Del Method 07/14/22 00:05 Room Air 07/13/22 22:54 07/13/22 22:54 Room Air 07/13/22 22:18 Room Air Laboratory Results Laboratory Results WBC 6.75 K/ul (4.8-10.8) 07/13/22 21:49 RBC 3.42 M/uL (3.93-5.22) L 07/13/22 21:49 Hgb 10.7 g/dl (12.0-16.0) L 07/13/22 21:49 Hct 32.0 % (34.1-44.9) L 07/13/22 21:49 MCV 93.6 fL (80.0-100.0) 07/13/22 21:49 MCH 31.3 pg (25.0-34.0) 07/13/22 21:49 MCHC 33.4 g/dL (32.0-36.0) 07/13/22 21:49 RDW Std Deviation 57.1 fL (36.4-46.3) H 07/13/22 21:49 RDW Coeff of Cyn 16.5 % (11.5-14.5) H 07/13/22 21:49 Plt Count 194 K/uL (130-400) 07/13/22 21:49 MPV 10.9 fL (9.4-12.3) 07/13/22 21:49 Immature Gran % (Auto) 0.3 % 07/13/22 21:49 Neut % (Auto) 57.5 % 07/13/22 21:49 Lymph % (Auto) 30.7 % 07/13/22 21:49 [place] % (Auto) 10.8 % 07/13/22 21:49 Eos % (Auto) 0.1 % 07/13/22 21:49 Baso % (Auto) 0.6 % 07/13/22 21:49 Neut # (Auto) 3.88 K/uL (1.4-6.5) 07/13/22 21:49 Lymph # (Auto) 2.07 K/uL (1.2-3.4) 07/13/22 21:49 [place] # (Auto) 0.73 K/uL (0.24-0.82) 07/13/22 21:49 Eos # (Auto) 0.01 K/uL (0-0.50) 07/13/22 21:49 Baso # (Auto) 0.04 K/uL (0-0.2) 07/13/22 21:49 Immature Gran # (Auto) 0.02 K/uL (0.00-0.02) 07/13/22 21:49 PT 10.8 Seconds (9.0-12.0) 07/13/22 21:49 INR 1.0 (0.9-1.1) 07/13/22 21:49 APTT 26.1 Seconds (21.0-31.0) 07/13/22 21:49 PTT Ratio 0.9 07/13/22 21:49 Sodium 136 mmol/L (136-145) 07/13/22 21:49 Potassium 4.6 mmol/L (3.5-5.1) 07/13/22 21:49 Chloride 101 mmol/L (98-107) 07/13/22 21:49 Carbon Dioxide 26 mmol/L (21-32) 07/13/22 21:49 Anion Gap 9 (3-11) 07/13/22 21:49 BUN 36 mg/dl (6-23) H 07/13/22 21:49 Creatinine 1.30 mg/dl (0.6-1.2) H 07/13/22 21:49 Est Cr Clr Drug Dosing 35.2 ml/min 07/13/22 21:49 Est GFR ( Amer) 47.5 ml/min 07/13/22 21:49 Est GFR (Non-Af Amer) 41.0 ml/min 07/13/22 21:49 BUN/Creatinine Ratio 27.7 (10-20) H 07/13/22 21:49 Glucose 123 mg/dl (70-99(Fasting)) H 07/13/22 21:49 POC Glucose 111 mg/dl (70-99) H 07/13/22 22:21 Calcium 9.7 mg/dl (8.5-10.1) 07/13/22 21:49 Magnesium 2.4 mg/dl (1.7-2.4) 07/13/22 21:49 Total Bilirubin 0.5 mg/dl (0.2-1.0) 07/13/22 21:49 AST 16 U/L (13-39) 07/13/22 21:49 ALT 17 U/L (7-52) 07/13/22 21:49 Alkaline Phosphatase 71 U/L (34-104) 07/13/22 21:49 Troponin I High Sens 6.6 pg/ml (0-14) 07/13/22 21:49 Total Protein 6.8 gm/dl (6.0-8.3) 07/13/22 21:49 Albumin 4.4 gm/dl (3.4-5.0) 07/13/22 21:49 Globulin 2.4 gm/dl (2.5-4.0) L 07/13/22 21:49 Albumin/Globulin Ratio 1.8 (0.9-2) 07/13/22 21:49 SARS-CoV-2, RNA, NAAT NEGATIVE (NEGATIVE) 07/13/22 23:25 Blood Type O Positive 07/13/22 22:29 Antibody Screen NEGATIVE 07/13/22 22:[address] head initial read: No evidence of acute intracranial pathology. Mild nonspecificwhite matter changes. Remote right craniotomy. Comparison made to prior head CT fromMay 30, 2022. Bilateral lens replacement CT angio head initial read: Negative CT angiogramof the head. No comparisons CT angio neck initial read: Negative CT angiogramof the neck. No comparisons. Bilateral thyroid nodules. Chest x-ray as per my interpretation no congestion EKG as per my interpretation : Rate 75, NSR, normal axis, T wave flattening inferior leads
[2022-07-14] MEDS ORDERED: SODIUM CHLORIDE 0.9% 1000ML 1,000 ML IV STA (00:30)
[2022-07-14] MEDS ORDERED: GLUCAGON FOR INJ 1 MG VIAL SQ PRN (03:12)
[2022-07-14] MEDS ORDERED: GLUCOSE 40% GEL 15 GM TUBE PO PRN (03:12)
[2022-07-14] MEDS ORDERED: CARBOHYDRATES FOR HYPOGLYCEMIA PO PRN (03:12)
[2022-07-14] MEDS ORDERED: DEXTROSE 50% 50 ML SYRINGE IV PRN (03:12)
[2022-07-14] MEDS ORDERED: GLUCOSE 10 TAB/TUBE PO PRN (03:12)
[2022-07-14] MEDS ORDERED: PSYLLIUM or GUAR GUM FIBER POWDER PACKET PO PRN (03:18)
[2022-07-14] MEDS: INSULIN ASPART PER UNIT SC SCH ×5 (04:00→20:58)
[2022-07-14 04:16] LABS: Basophils # (auto) 0.05 K/uL (0-0.2); Basophils % (auto) 0.9 %; Eosinophils # (auto) 0.02 K/uL (0-0.50); Eosinophils % (auto) 0.4 %; Hemoglobin 10.4 g/dl (12.0-16.0); Immature Granulocytes # (auto) 0.03 K/uL (0.00-0.02); Immature Granulocytes % (auto) 0.5 %; Lymphocytes # (auto) 2.48 K/uL (1.2-3.4); Mean Corpuscular Hemoglobin 31.4 pg (25.0-34.0); Mean Corpuscular Hgb Conc 33.5 g/dL (32.0-36.0); Mean Corpuscular Volume 93.7 fL (80.0-100.0); Mean Platelet Volume 10.6 fL (9.4-12.3); Monocytes % (auto) 10.6 %; Neutrophils # (auto) 2.46 K/uL (1.4-6.5); Neutrophils % (auto) 43.6 %; Platelet Count 187 K/uL (130-400); RDW Coefficient of Variation 16.5 % (11.5-14.5); Red Blood Count 3.31 M/uL (3.93-5.22); White Blood Count 5.64 K/ul (4.8-10.8)
[2022-07-14 04:39] LABS: BUN Creatinine Ratio 31.4 (10-20); Calcium 9.2 mg/dl (8.5-10.1); Creatinine Clr Calc Pharmacy 43.6 ml/min; Est GFR (African American) 61.4 ml/min; Potassium 4.3 mmol/L (3.5-5.1)
[2022-07-14 05:53] LABS: Appearance Urine Clear (Clear); Bacteria Urine Automated 1+ (Negative); Bilirubin Urine Negative (Negative); Blood Urine Negative (Negative); Cast Urine Automated 0 /lpf (0-5); Color Urine Dark Yellow; Glucose Urine UA Negative (Negative); Ketones Urine Negative (Negative); Leukocyte Esterase Urine 2+ (Negative); Nitrite Urine Positive (Negative); Protein Urine Negative (Negative); RBC Urine Automated 0-4 /hpf (0-4); Specific Gravity Urine 1.036 (1.000-1.030); Urobilinogen Urine Negative (Negative); pH Urine 6.5 (4.5-7.5)
[2022-07-14] MEDS: HEPARIN SOD 5,000 UNIT/0.5 ML VIAL SQ SCH ×3 (06:34→21:56)
[2022-07-14] MEDS: LEVOTHYROXINE SODIUM 50 MCG TABLET PO SCH (07:08)
[2022-07-14] MEDS: AZTREONAM 1,000 MG in DEXTROSE 5% 100 ML IV SCH ×3 (07:08→23:10)
--- NOTE | 2022-07-14 07:15 | CT Scan Report ---
CT SCAN OF THE BRAIN WITHOUT IV CONTRAST CLINICAL HISTORY: Strokelike symptoms. Neurological deficit. COMPARISON STUDY: CT of the brain dated 05/30/2022. TECHNIQUE: Unenhanced axial CT scan of the brain is performed from the vertex to the skull base. A do se lowering technique was utilized adhering to the principles of ALARA. CT DOSE: 950.82 mGy.cm FINDINGS: Brain parenchyma: There is age-related involutional change noting [id number] subcortical and pe riventricular microangiopathic disease. There is no hemorrhage, mass effect, or evidence of acute ter ritorial ischemia by CT criteria. Mojica-white matter differentiation is preserved. No extra-axial flui d collection is seen. Ventricles, sulci, cisterns: Prominent secondary to involutional change. Intracranial vasculature: There is atherosclerotic calcification of the cavernous carotid and vertebr al arteries. Calvarium: The calvarium appears intact. Thickening/postsurgical change is again seen along the right posterior convexity. Sinuses and mastoids: There is mild mucosal thickening within the left maxillary antrum. Trace mucosa l thickening is seen in the ethmoid sinuses. The mastoid air cells are well pneumatized. Orbits: The bony orbits are grossly intact. There are bilateral ocular lens implants. IMPRESSION: There is no hemorrhage, mass effect, or evidence of acute territorial ischemia by CT byron mejia. ACT 112: Negative or not required by law. Electronically signed by: Patel Qiu M.D. 07/14/2022 7:14 AM
--- NOTE | 2022-07-14 07:16 | XRay Report ---
XR chest 1V portable CLINICAL HISTORY: Renal failure. COMPARISON STUDY: Chest radiograph June 01, 2022. FINDINGS: Lung volumes are normal. Lungs are clear. There is no pneumothorax or pleural effusion. Car diac size is normal. Mediastinal contours are normal. There is no evidence for pulmonary edema. IMPRESSION: No acute cardiopulmonary findings. ACT 112: Negative or not required by law. Electronically signed by: Lukas Law M.D. 07/14/2022 7:14 AM
--- NOTE | 2022-07-14 07:23 | CT Scan Report ---
CTA ANGIOGRAPHY OF THE HEAD CLINICAL HISTORY: neuro deficit, acute stroke suspected. Aphasia. COMPARISON STUDY: Head CT May 30, 2022 and CTA of the head May 31, 2019. TECHNIQUE: Helical axial images of the head were obtained following uneventful intravenous administr ation of 110 cc of Optiray. Sagittal and coronal reconstructions were viewed as well as maximal inten sity projections on an independent 3-D workstation. Automated exposure control was utilized for the study. A dose lowering technique was utilized adhering to the principles of ALARA. FINDINGS: Please note that the head CT will be reported separately. Right-sided craniotomy is noted. There is no acute hemorrhage. Ventricular system is stable. Appearance of the brain is unchanged. Sma ll amount of secretions within the left maxillary sinus are present. The bilateral M1, M2, A1 and A2 segments are patent. The left vertebral artery is dominant. There is mild stenosis of the intracrania l portion of the right vertebral artery. Basilar artery is diminutive. Posterior circulation is large ly supplied by the anterior circulation. This is unchanged. There is no central vessel occlusion. No aneurysm is present. IMPRESSION: No central vessel occlusion. No intracranial aneurysm. ACT 112: Negative or not required by law. Electronically signed by: Lukas Law M.D. 07/14/2022 7:21 AM
--- NOTE | 2022-07-14 07:28 | CT Scan Report ---
CT ANGIOGRAM OF THE NECK CLINICAL HISTORY: Stroke like symptoms. Neurological deficit. COMPARISON STUDY: CT angiogram of the neck dated 05/31/2019. TECHNIQUE: Following the IV administration of 110 of Optiray 320, CT angiogram of the neck was perfor med from the aortic arch to the skull base. Images are reviewed in the axial, sagittal, and coronal p lanes. 3-D MIPS images are created and assessed. IV contrast was administered without complication. A ll measurements were calculated based on NASCET criteria. A dose lowering technique was utilized adh ering to the principles of ALARA. FINDINGS: Thoracic aorta: Visualized portions of the thoracic aorta are normal in caliber. The aortic arch demo nstrates standard 3-vessel anatomy. Right carotid arterial system: The right common carotid artery is widely patent, as are the right int ernal and external carotid arteries. Calcified plaque is noted in the carotid bulb. Left carotid arterial system: The left common carotid artery is widely patent, as are the left information technology intern al and external carotid arteries. Calcified plaque is seen in the carotid bulb. Vertebral arteries: The vertebral arteries are widely patent bilaterally noting left-sided dominance. Subclavian arteries: Widely patent bilaterally. Intracranial vasculature: The visualized intracranial vessels at the skull base are patent. Jugular veins: Widely patent bilaterally. Brain parenchyma: The visualized brain parenchyma the skull base is within normal limits noting age-r elated involutional change. Lung apices: Partially visualized upper lobe lung parenchyma appears clear. Soft tissues: The visualized pharyngeal soft tissues are normal in appearance noting angiographic pha se technique. The oropharyngeal airway appears widely patent. The thyroid gland is heterogeneous. The salivary glands are normal in appearance. No cervical lymphadenopathy is seen. Skeletal structures: The skeletal structures are osteopenic. The visualized calvarium at the skull ba se appears intact. The imaged cervical spine is maintaining noting multilevel spondylosis. No lytic o r blastic lesion is seen. Sinuses and mastoids: There is mild mucosal thickening in the left maxillary antrum. The mastoid air cells are well pneumatized. IMPRESSION: Unremarkable CT angiogram of the neck. ACT 112: Negative or not required by law. Electronically signed by: Patel Qiu M.D. 07/14/2022 7:27 AM
[2022-07-14] MEDS: ASPIRIN 81 MG ECTAB PO SCH (08:41)
[2022-07-14] MEDS: FLUTICASONE PROPIONATE NA SPR 16 GM BTL SCH (08:41)
[2022-07-14] MEDS: METOPROLOL SUCC 50MG EXT REL TAB PO SCH (08:42)
[2022-07-14] MEDS ORDERED: NON-FORMULARY MEDICATION (Riboflavin (Vitamin B2) 400 mg tablet) PO SCH (09:00)
--- NOTE | 2022-07-14 11:18 | CT Scan Report ---
CT SCAN OF THE ABDOMEN AND PELVIS WITHOUT IV CONTRAST CLINICAL HISTORY: Recurrent urinary tract infections. COMPARISON STUDY: Abdominal CT dated 04/15/2021. TECHNIQUE: CT scan of the abdomen and pelvis is performed from the lung bases to the proximal femora. Images are reviewed in the axial, sagittal, and coronal planes. IV contrast was not administered for this examination. A dose lowering technique was utilized adhering to the principles of ALARA. CT DOSE: 263.52 mGy.cm FINDINGS: Lung bases: The heart is mildly enlarged and without pericardial effusion. Patchy groundglass consoli dation is seen throughout the right lower lobe. There is bibasilar scarring/atelectasis. No pleural e ffusion is seen. Liver: The unenhanced liver is normal in size, contour, and attenuation. There is no intrahepatic getachew iary ductal dilatation. Gallbladder: Hyperdense material within the gallbladder lumen likely represents vicariously excreted contrast. Spleen: Normal in size and attenuation. Pancreas: The unenhanced pancreas is grossly unremarkable but not well evaluated. Adrenal glands: Unremarkable. Kidneys: The unenhanced kidneys demonstrating mild cortical atrophy and are without hydronephrosis. E xcreted IV contrast fills the renal collecting system bilaterally and ureters. This degrades assessme nt for renal calculi. There is no evidence of contour deforming renal mass lesion. There is retained contrast within the renal cortex. Abdominal vasculature: The abdominal aorta is normal in course and caliber noting advanced atheroscle rotic calcification. Bowel: There is severe constipation. No bowel obstruction is seen. The appendix is well-visualized a nd normal. Peritoneum: There is no intraperitoneal free air or abdominal ascites. Lymphadenopathy: None. Pelvic viscera: The bladder is filled with excreted IV contrast. The bladder is significantly distend ed, and the wall is thickened/trabeculated. There are numerous large bladder diverticula which measur e up to 3 cm. Calcified fibroids are suggested. No adnexal lesion is seen. There are bilateral inguin al hernias, containing bowel in the right and a portion of bladder on the left. There is contrast wit hin the vagina. Skeletal structures: The skeletal structures are osteopenic. There is moderate lumbosacral spondylosi s. 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 There is a chronic superior endplate compression deformity of T10. No destructive bony lesion is seen. Soft tissues: Numerous foci of induration throughout the abdominal wall containing fluid and foci of gas. These are likely related to subcutaneous injections. IMPRESSION: 1. Patchy ground glass consolidation is seen throughout the right lower lobe. The appearance is typic al for pneumonia/aspiration pneumonitis. Clinical correlation will be required. 2. Severe constipation. 3. The bladder is distended and there are innumerable bladder diverticula. The appearance suggests ch ronic outlet obstruction. Clinical correlation will be required. 4. There are bilateral inguinal hernias, containing bowel on the right and the portion of the bladder on the left. 5. There is contrast within the vagina. This is nonspecific and may represent retrograde pooling of u rine. Clinical correlation will be essential. 6. Additional findings as above. ACT 112: Negative or not required by law. Electronically signed by: Patel Qiu M.D. 07/14/2022 11:16 AM
--- NOTE | 2022-07-14 14:01 | Electrocardiogram Report ---
Test Reason : Blood Pressure : / mmHG Vent. Rate : 075 BPM Atrial Rate : 075 BPM P-R Int : 116 ms QRS Dur : 088 ms QT Int : 414 ms P-R-T Axes : 074 032 059 degrees QTc Int : 462 ms Poor data quality, interpretation may be adversely affected Normal sinus rhythm Nonspecific ST abnormality Abnormal ECG When compared with ECG of 30-MAY-2022 11:43, Questionable change in QRS axis Confirmed by Kin Hicks ([id number]) on 07/14/2022 2:00:55 PM Referred By: REFERRED SELF Confirmed By:Kin Hicks
--- NOTE | 2022-07-14 18:51 | Hospitalist Progress Note ---
Date of Service July 14, 2022 Assessment & Plan (1) Acute metabolic encephalopathy: Plan (1) Acute metabolic encephalopathy: Plan: possible dehydration possible uti possible from meds ? neuropsychotropic meds contributory, history of schizophrenia Rule out recurrent UTI was given fluids on azactum intially stroke workup done with ct head , cta head and neck which were unremarkable today more alert and awake improving will monitor Possible aspiration pneumonitis on ct abd/plevis will add flagyl speech evaluation LAURI Cr 1.3 improving cr 1.05 today holing lisnopril baseline cr 0.5. hypertension, slightly elevated on metoprolol lisinopril on hold iv hydralazine prn. hypothyroidism, euthyroid as of recent TSH hyperlipidemia on statin Rx DM2 on oral meds, well-controlled as of recent hemoglobin A1c of 6.03 May 2022 ISS. history of brain tumor status post partial surgery years ago (unknown pathology), hx somatization disorder clozapine on hod can restart in am if stable as mental status improving. chronic anemia, stable DVT prophylaxis. Heparin subcu Full code as per patient's prior directives. Patient emergency contact/caregiver requesting updates from providers. Ms. Sidney Izaguirre, contact #[phone]. Admission and Anticipated Discharge Date Admission Date: July 14, 2022 Subjective alert and awake oriented to name and place says her main issue is she is forgetting things denies headache no nausea no fevers Review of Systems Review of Systems: ROS unremarkable Physical Exam Eyes: no pallor no icterus Neck: normal visual inspection Respiratory: normal respiratory effort, lungs clear to auscultation Cardiovascular: RRR, no murmur, no edema Gastrointestinal (Abdomen): normal bowel sounds, soft, nontender, no hepatosplenomegaly Skin: no rashes, warm and dry Neurologic: alert and oriented x 2 speech clear no facial droop obeys simple commands moves extremities Results & Data Results & Data ([facility]) Vital Signs (Past 12 Hours) Vital Signs Temp Pulse Pulse Resp BP Pulse Ox Pulse Ox 07/14/22 15:28 66 07/14/22 14:12 36.6 C 68 20 154/77 H 99 07/14/22 13:00 71 18 155/76 H 100 07/14/22 11:12 70 16 174/89 H 99 07/14/22 07:00 68 16 142/74 H 99 07/14/22 07:00 99 O2 Del Method O2 Del Method 07/14/22 15:28 07/14/22 14:12 Room Air 07/14/22 13:00 Room Air 07/14/22 11:12 Room Air 07/14/22 07:00 Room Air 07/14/22 07:00 Room Air
[2022-07-14] MEDS ORDERED: hydrALAZINE HCL 20 MG/ML VIAL IV PRN (18:59)
[2022-07-14] MEDS ORDERED: SODIUM CHLORIDE 0.9% 500 ML IV SCH (19:00)
[2022-07-14] MEDS: metroNIDAZOLE 500 MG/100 ML BAG IV SCH (21:46)
[2022-07-14] MEDS: PANTOprazole 40 MG TAB PO SCH (21:57)
[2022-07-14] MEDS: ATORVASTATIN 20 MG TAB PO SCH (21:58)
[2022-07-14] MEDS: LORATADINE 10 MG TAB PO SCH (21:58)
[2022-07-14] MEDS: ACETAMINOPHEN 325 MG TAB PO PRN (22:07)
[2022-07-15] MEDS: metroNIDAZOLE 500 MG/100 ML BAG IV SCH ×3 (03:30→21:20)
[2022-07-15] MEDS: AZTREONAM 1,000 MG in DEXTROSE 5% 100 ML IV SCH ×3 (05:43→23:05)
[2022-07-15] MEDS: LEVOTHYROXINE SODIUM 50 MCG TABLET PO SCH (05:43)
[2022-07-15] MEDS: HEPARIN SOD 5,000 UNIT/0.5 ML VIAL SQ SCH ×3 (05:43→21:27)
--- NOTE | 2022-07-15 08:16 | Urology Consultation ---
Date of Consultation July 15, 2022 Assessment & Plan (1) Acute UTI (urinary tract infection): (2) Acquired bladder diverticulum: Plan 71-year-old female with a UTI and CT scan showing significant bladder diverticulum No acute urologic intervention necessary Recommend obtaining PVRs to ensure patient is emptying appropriately. If PVRs are elevated, recommend Hou catheter placement for decompression Recommend aggressive bowel regimen as CT scan shows significant constipation and this can affect voiding Continue broad-spectrum antibiotics and narrow down once cultures result Patient will likely need outpatient urologic evaluation. Urology can coordinate discharge. History of Present Illness Reason for Consultation: UTI, bladder diverticuli Attending Physician: Stephane Marks MD History of Present Illness 71-year-old female who is admitted on 07/14/2022 for weakness and confusion. She was hemodynamically stable and afebrile. Labs showed white blood cell count of 5.6, hemoglobin of 10.4, creatinine of 1.3 (baseline appears to be 0.5). Creatinine did downtrend to 1.05 on 07/14/2022. Urinalysis was positive for nitrites, 2+ leukocyte esterase, 10-30 WBCs, no RBCs and 1+ bacteria. Urine culture is growing 2 strains of gram-negative bacilli. She had a CT scan performed which I independently reviewed. This shows significant constipation and a distended bladder with bladder diverticula. There was also some contrast in the vagina indicating possibly pooling of urine or potentially a fistula although less likely. Patient subjectively reported not feeling that well today but just stated that she was weak. Somewhat of a difficult historian. She denies any current UTI symptoms. She does not report any difficulty emptying. She does endorse constipation. She only reports minor leakage of urine but difficult to say if this is stress versus urge. She does state that she seen a urologist before and may have had procedures but is unsure what was done or what her diagnosis was. She is currently on aztreonam and metronidazole. Allergies Allergy/AdvReac Type Severity Reaction Status Date / Time Cephalosporins Allergy Intermediate Hallucinati Verified 07/13/22 22:56 ons Penicillins Allergy Intermediate Hives Verified 07/13/22 22:56 pollen extracts Allergy Intermediate seasonal Verified 07/13/22 22:56 allergy rizatriptan [From Maxalt] Allergy Unknown Unknown Verified 07/13/22 22:56 cyclobenzaprine AdvReac Intermediate neuro Verified 07/13/22 22:56 [From Flexeril] complications Home Medications Medication Instructions Recorded Confirmed Type duloxetine 60 mg capsule,delayed 60 mg PO QAM 04/14/18 07/13/22 History release (Cymbalta) levothyroxine 50 mcg tablet 50 mcg PO DAILYBB 04/14/18 07/13/22 History (Synthroid) loratadine 10 mg tablet (Claritin) 10 mg PO HS 03/25/19 07/13/22 History magnesium oxide 400 mg PO QAM 03/25/19 07/13/22 History atorvastatin 20 mg tablet 20 mg PO PM 11/22/19 07/13/22 History sumatriptan succinate 100 mg tablet 100 mg PO DAILY PRN Headache 11/22/19 07/13/22 History clozapine 25 mg tablet 50 mg PO QAM 11/06/20 07/13/22 History metformin 500 mg tablet 500 mg PO QAM 02/24/21 07/13/22 History riboflavin (vitamin B2) 400 mg 400 mg PO QAM 02/24/21 07/13/22 History tablet clozapine 100 mg tablet 300 mg PO HS #30 tabs 04/15/21 07/13/22 Rx metoprolol succinate 50 mg 50 mg PO QAM 04/15/21 07/13/22 History tablet,extended release 24 hr cyanocobalamin (vitamin B-12) 1,000 mcg PO DAILY 05/17/21 07/13/22 History 1,000 mcg tablet (Vitamin B-12) iron,carbonyl 65 mg-vitamin C 125 1 tab PO DAILY 05/17/21 07/13/22 History mg tablet,delayed release (Vitron-C) psyllium 1 tsp PO TID PRN Constipation 05/17/21 07/13/22 History fluticasone propionate 50 2 spray intranasal DAILY 07/13/21 07/13/22 History mcg/actuation nasal spray,suspension (Flonase Allergy Relief) loperamide 2 mg capsule 2 mg PO QID PRN Diarrhea 07/13/21 07/13/22 History meclizine 25 mg tablet 25 mg PO .Q5HRS PRN DIZZY 07/13/21 07/13/22 History ondansetron 4 mg disintegrating 4 mg PO Q8H PRN Nausea 07/13/21 07/13/22 History tablet cholecalciferol (vitamin D3) 1,250 1,250 mcg PO WK 05/11/22 07/13/22 History mcg (50,000 unit) capsule aspirin 81 mg chewable tablet 81 mg PO DAILY 05/12/22 07/13/22 History (Aspirin Childrens) acetaminophen 325 mg tablet 650 mg PO Q4 PRN pain 1-3 07/13/22 07/13/22 History docusate sodium 100 mg capsule 100 mg PO BID 07/13/22 07/13/22 History (Colace) lisinopril 20 mg tablet 20 mg PO DAILY 07/13/22 07/13/22 History omeprazole 40 mg capsule,delayed 40 mg PO HS 07/13/22 07/13/22 History release Patient History Medical History (Updated 07/15/22 @ 09:13 by Chacho Agudelo MD) Anxiety Dehydration Dizziness DM2 (diabetes mellitus, type 2) GERD (gastroesophageal reflux disease) Well controlled with medication Headache HLD (hyperlipidemia) Hypertension Hypothyroidism Migraine Nausea Neuropathy Schizophrenia Somatization disorder Vertigo Surgical History H/O bilateral cataract extraction H/O brain surgery "abt 1970 R parietal exploration for benign lesion" H/O cystoscopy H/O foot surgery History of cataract surgery History of colonoscopy History of craniotomy 1969, IN [place] D/T HEADACHE---FOLLOWS W DR. MICHAEL History of tonsillectomy History of tooth extraction WISDOM TEETH S/P foot surgery, left X2 S/P foot surgery, right X2 Family History Grandmother Family history of diabetes mellitus PATERNAL Family/Other Family history of diabetes mellitus UNCLE Father Parkinson disease Mother CHF (congestive heart failure) Social History Smoking Status: Never smoker Second Hand Exposure: Yes (FATHER SMOKED); Hx Alcohol Use: No Hx Substance Use: No Preferred Language: Kuwaiti Communication Ability: Effective Equity Manager Required: No Beliefs That Will Affect Care: None marital status: Single Current Living Situation: Personal Care Facility Current Living Situation Comment: [facility] How many Children do You have: 0 Feels Safe at Home: Yes Assistive Devices: Walker Review of Systems Review of Systems: 14 point review of systems negative outside of what is listed above in HPI Physical Exam Physical Exam: General: Alert, no acute distress HEENT: Normocephalic, mucous membranes moist Pulmonary: Nonlabored respirations Abdomen: Nondistended soft, nontender Extremities: Moves all 4 spontaneously Neuro: No gross deficits Skin: Warm, dry, no rashes noted Results & Data ([facility]) Vital Signs (Past 12 Hours) Vital Signs Temp Pulse Pulse Pulse Resp BP BP 07/15/22 07:48 78 07/15/22 05:48 36.4 C L 71 16 150/79 H 07/14/22 22:00 67 07/14/22 22:59 37.0 C 66 18 115/67 07/14/22 20:21 36.5 C 75 18 147/74 H Pulse Ox O2 Del Method 07/15/22 07:48 07/15/22 05:48 98 Room Air 07/14/22 22:00 07/14/22 22:59 97 Room Air 07/14/22 20:21 98 Room Air PG Care Time/CCT Total # of Minutes Spent Total Time Spent with Patient: Total time spent is greater than 50% in coordination of care (as documented) at patient's floor/unit and/or counseling patient: Coding Level of Care Code 20305 INT INP/OBS CARE 2/55MIN Diagnoses Acute UTI (urinary tract infection) N39.0 Acquired bladder diverticulum N32.3
[2022-07-15] MEDS: INSULIN ASPART PER UNIT SC SCH ×4 (08:18→21:25)
[2022-07-15] MEDS: ASPIRIN 81 MG ECTAB PO SCH (08:19)
[2022-07-15] MEDS: FLUTICASONE PROPIONATE NA SPR 16 GM BTL SCH (08:19)
[2022-07-15] MEDS: METOPROLOL SUCC 50MG EXT REL TAB PO SCH (08:19)
--- NOTE | 2022-07-15 13:59 | Hospitalist Progress Note ---
Date of Service July 15, 2022 Assessment & Plan (1) Acute metabolic encephalopathy: Plan per Dr. Hickman's notes with addendum: (1) Acute metabolic encephalopathy: Plan: possible dehydration possible uti possible from meds ? neuropsychotropic meds contributory, history of schizophrenia intial stroke workup done with ct head , cta head and neck which were unremarkable 07/15 alert, oriented x 1 seems to be back to mental status as in June 2022 Urine culture: gram negative bacilli continue Aztreonam IV Day 2 resume Psych meds given IV fluids (2) Possible aspiration pneumonitis on ct abd/plevis: mild infiltrates R lower lobe continue Aztreonam IV Day 2 + Flagyl Speech therapy eval: no aspiration LAURI Cr 1.3 improved cr 1.05 today baseline cr 0.5. Hypertension on metoprolol lisinopril on hold iv hydralazine prn. Hypothyroidism, euthyroid as of recent TSH hyperlipidemia on statin Rx DM2 on oral meds, well-controlled as of recent hemoglobin A1c of 6.03 May 2022 ISS. history of brain tumor status post partial surgery years ago (unknown pathology), hx somatization disorder resume Clozapine chronic anemia, stable DVT prophylaxis. Heparin subcu Full code as per patient's prior directives. Patient emergency contact/caregiver requesting updates from providers. . Sidney Izaguirre, contact #[phone]. Admission and Anticipated Discharge Date Admission Date: July 14, 2022 Subjective ff up for acute metabolic encephalopathy, etc seen resting in bedside chair, comfortable alert, oriented x 1, not in distress states she is concerned as she does not know how she ended up in the hospital explained events leading to admission, reassured patient, she was calmer states she feels ok overall has mild lower abdominal discomfort no dysuria no other symptoms Review of Systems Review of Systems: all noted and negative except for above Physical Exam Physical Exam: General- oriented x 1, not in distress, speaks in sentences with no effort or accessory muscle use Eyes- anicteric Neck- no JVD Lungs- clear breath sounds bilaterally, no rales/wheezes Heart- normal rate, regular rhythm; no murmurs Abdomen- normal bowel sounds, nondistended, soft, mild suprapubic tenderness Extremities- no pretibial edema, no calf tenderness Neuro- alert, oriented x 3; no gross focal neurologic deficits Skin- warm & dry Results & Data Results & Data ([facility]) Vital Signs (Past 12 Hours) Vital Signs Temp Pulse Pulse Resp BP Pulse Ox O2 Del Method 07/15/22 11:59 36.7 C 76 18 113/71 99 Room Air 07/15/22 07:48 78 07/15/22 05:48 36.4 C L 71 16 150/79 H 98 Room Air all noted and reviewed including below
[2022-07-15 15:12] LABS: Basophils # (auto) 0.05 K/uL (0-0.2); Basophils % (auto) 0.8 %; Hematocrit (blood only) 30.8 % (34.1-44.9); Hemoglobin 10.3 g/dl (12.0-16.0); Immature Granulocytes # (auto) 0.02 K/uL (0.00-0.02); Immature Granulocytes % (auto) 0.3 %; Lymphocytes # (auto) 1.37 K/uL (1.2-3.4); Lymphocytes % (auto) 20.8 %; Mean Corpuscular Hemoglobin 30.9 pg (25.0-34.0); Mean Corpuscular Hgb Conc 33.4 g/dL (32.0-36.0); Mean Corpuscular Volume 92.5 fL (80.0-100.0); Mean Platelet Volume 10.4 fL (9.4-12.3); Monocytes # (auto) 0.62 K/uL (0.24-0.82); Monocytes % (auto) 9.4 %; Neutrophils # (auto) 4.53 K/uL (1.4-6.5); Neutrophils % (auto) 68.7 %; Platelet Count 174 K/uL (130-400); RDW Standard Deviation 54.4 fL (36.4-46.3); Red Blood Count 3.33 M/uL (3.93-5.22); White Blood Count 6.59 K/ul (4.8-10.8)
[2022-07-15] MEDS ORDERED: MAGNESIUM HYDROXIDE SUSP 30 ML UDC PO PRN (16:00)
[2022-07-15] MEDS: POLYETHYLENE (MIRALAX) 17 GM PACK PO SCH (16:44)
[2022-07-15] MEDS ORDERED: PROMETHAZINE HCL 6.25 MG in SODIUM CHLORIDE 0.9% 50 ML IV PRN (20:55)
[2022-07-15] MEDS: ATORVASTATIN 20 MG TAB PO SCH (21:24)
[2022-07-15] MEDS: cloZAPine 100 MG TAB PO SCH (21:25)
[2022-07-15] MEDS: LORATADINE 10 MG TAB PO SCH (21:26)
[2022-07-15] MEDS: PANTOprazole 40 MG TAB PO SCH (21:26)
[2022-07-15] MEDS: MELATONIN 3 MG TAB PO PRN (21:41)
[2022-07-15] MEDS: ACETAMINOPHEN 325 MG TAB PO PRN (21:41)
[2022-07-16] MEDS: metroNIDAZOLE 500 MG/100 ML BAG IV SCH ×2 (03:51→11:11)
[2022-07-16] MEDS: HEPARIN SOD 5,000 UNIT/0.5 ML VIAL SQ SCH ×3 (06:17→21:10)
[2022-07-16] MEDS: AZTREONAM 1,000 MG in DEXTROSE 5% 100 ML IV SCH (06:17)
[2022-07-16] MEDS: LEVOTHYROXINE SODIUM 50 MCG TABLET PO SCH (06:17)
[2022-07-16] MEDS: POLYETHYLENE (MIRALAX) 17 GM PACK PO SCH (07:35)
[2022-07-16] MEDS: FLUTICASONE PROPIONATE NA SPR 16 GM BTL SCH (07:35)
[2022-07-16] MEDS: DULoxetine HCL 60 MG CAP PO SCH (07:36)
[2022-07-16] MEDS: ASPIRIN 81 MG ECTAB PO SCH (07:36)
[2022-07-16] MEDS: METOPROLOL SUCC 50MG EXT REL TAB PO SCH (07:36)
[2022-07-16] MEDS: cloZAPine 25 MG TAB PO SCH (07:36)
[2022-07-16] MEDS: INSULIN ASPART PER UNIT SC SCH ×4 (08:44→21:06)
[2022-07-16] MEDS: ACETAMINOPHEN 325 MG TAB PO PRN ×3 (09:47→21:07)
[2022-07-16] MEDS: CEFEPIME 1,000 MG in SYRINGE 0 ML IV SCH (12:46)
--- NOTE | 2022-07-16 16:45 | Hospitalist Progress Note ---
Date of Service July 16, 2022 Assessment & Plan (1) Acute metabolic encephalopathy: Plan per Dr. Hickman's notes with addendum: (1) Acute metabolic encephalopathy: Plan: possible dehydration possible uti possible from meds ? neuropsychotropic meds contributory, history of schizophrenia intial stroke workup done with ct head , cta head and neck which were unremarkable 07/15 alert, oriented x 1 seems to be back to mental status as in June 2022 Urine culture: gram negative bacilli continue Aztreonam IV Day 2 resume Psych meds given IV fluids 07/16 Mental status seems to be back to baseline Urine culture: Pseudomonas Given aztreonam x2 days, changed to cefepime IV day #1 Psych meds resumed, tolerating well so far Monitor closely (2) Possible aspiration pneumonitis on ct abd/plevis: mild infiltrates R lower lobe Given aztreonam IV Day 2 + Flagyl Now on cefepime IV day #1 Speech therapy eval: no aspiration LAURI Cr 1.3 improved cr 1.05 today baseline cr 0.5. Hypertension on metoprolol lisinopril on hold iv hydralazine prn. Hypothyroidism, euthyroid as of recent TSH hyperlipidemia on statin Rx DM2 on oral meds, well-controlled as of recent hemoglobin A1c of 6.03 May 2022 ISS. history of brain tumor status post partial surgery years ago (unknown pathology), hx somatization disorder resume Clozapine chronic anemia, stable DVT prophylaxis. Heparin subcu Full code as per patient's prior directives. Patient emergency contact/caregiver requesting updates from providers. Ms. Sidney Izaguirre, contact #[phone]. Admission and Anticipated Discharge Date Admission Date: July 15, 2022 Subjective Follow-up for acute metabolic encephalopathy, UTI, history of schizo affective disorder, etc. Seen resting in bed, sleeping but easily awakened States she feels tired but okay overall Denies problems with urination, abdominal pain, nausea vomiting Patient is oriented x1, easily redirected Calm, cooperative No other symptoms Review of Systems Review of Systems: all noted and negative except for above Physical Exam Physical Exam: General- oriented x 1, not in distress, speaks in sentences with no effort or accessory muscle use Eyes- anicteric Neck- no JVD Lungs- clear BS bilaterally, no rales/wheezes Heart- normal rate, regular rhythm; no murmurs Abdomen- normal bowel sounds, nondistended, soft, no tenderness Extremities- no pretibial edema, no calf tenderness Neuro- alert, oriented x 1; no gross focal neurologic deficits Skin- warm & dry Results & Data Results & Data ([facility]) Vital Signs (Past 12 Hours) Vital Signs Temp Pulse Resp BP BP Pulse Ox O2 Del Method 07/16/22 15:31 36.8 C 69 18 112/68 99 Room Air 07/16/22 11:28 36.7 C 65 18 136/74 98 Room Air 07/16/22 08:00 Room Air 07/16/22 07:19 36.6 C 76 18 150/79 H 98 Room Air all noted and reviewed including below
[2022-07-16] MEDS: cloZAPine 100 MG TAB PO SCH (21:04)
[2022-07-16] MEDS: ATORVASTATIN 20 MG TAB PO SCH (21:06)
[2022-07-16] MEDS: PANTOprazole 40 MG TAB PO SCH (21:07)
[2022-07-16] MEDS: MELATONIN 3 MG TAB PO PRN (21:07)
[2022-07-16] MEDS: LORATADINE 10 MG TAB PO SCH (21:07)
[2022-07-17] MEDS: CEFEPIME 1,000 MG in SYRINGE 0 ML IV SCH (00:29)
[2022-07-17] MEDS: LEVOTHYROXINE SODIUM 50 MCG TABLET PO SCH (06:07)
[2022-07-17] MEDS: HEPARIN SOD 5,000 UNIT/0.5 ML VIAL SQ SCH ×3 (06:07→21:25)
[2022-07-17 07:04] LABS: Creatinine Clr Calc Pharmacy 70.4 ml/min; Est GFR (African American) 102.8 ml/min; Est GFR (Non-African American) 88.7 ml/min
[2022-07-17] MEDS: INSULIN ASPART PER UNIT SC SCH ×4 (10:20→21:27)
[2022-07-17] MEDS: METOPROLOL SUCC 50MG EXT REL TAB PO SCH (10:21)
[2022-07-17] MEDS: ASPIRIN 81 MG ECTAB PO SCH (10:21)
[2022-07-17] MEDS: POLYETHYLENE (MIRALAX) 17 GM PACK PO SCH (10:22)
[2022-07-17] MEDS: DULoxetine HCL 60 MG CAP PO SCH (10:22)
[2022-07-17] MEDS: FLUTICASONE PROPIONATE NA SPR 16 GM BTL SCH (10:22)
[2022-07-17] MEDS: cloZAPine 25 MG TAB PO SCH (10:22)
[2022-07-17] MEDS: CEFEPIME 2,000 MG in SYRINGE 0 ML IV SCH ×2 (12:10→23:53)
[2022-07-17] MEDS: ACETAMINOPHEN 325 MG TAB PO PRN ×2 (12:11→19:52)
--- NOTE | 2022-07-17 18:18 | Hospitalist Progress Note ---
Date of Service July 17, 2022 Assessment & Plan (1) Acute metabolic encephalopathy: Plan per Dr. Hickman's notes with addendum: (1) Acute metabolic encephalopathy: Plan: possible dehydration possible uti possible from meds ? neuropsychotropic meds contributory, history of schizophrenia intial stroke workup done with ct head , cta head and neck which were unremarkable 07/15 alert, oriented x 1 seems to be back to mental status as in June 2022 Urine culture: gram negative bacilli continue Aztreonam IV Day 2 resume Psych meds given IV fluids 07/17 Mental status seems to be back to baseline Urine culture: Pseudomonas Given aztreonam x2 days, changed to cefepime IV day #2 Psych meds resumed, tolerating well so far Monitor closely (2) Possible aspiration pneumonitis on ct abd/plevis: mild infiltrates R lower lobe Given aztreonam IV Day 2 + Flagyl Now on cefepime IV day #1 Speech therapy eval: no aspiration LAURI Cr 1.3 improved cr 1.05 today baseline cr 0.5. Hypertension on metoprolol lisinopril on hold iv hydralazine prn. Hypothyroidism, euthyroid as of recent TSH hyperlipidemia on statin Rx DM2 on oral meds, well-controlled as of recent hemoglobin A1c of 6.03 May 2022 ISS. history of brain tumor status post partial surgery years ago (unknown pathology), hx somatization disorder resume Clozapine chronic anemia, stable DVT prophylaxis. Heparin subcu Full code as per patient's prior directives. Patient emergency contact/caregiver requesting updates from providers. Ms. Sidney Izaguirre, contact #[phone]. Admission and Anticipated Discharge Date Admission Date: July 15, 2022 Subjective ff up for UTI, metabolic encephalopathy, etc seen resting in chair, comfortable states she feels ok overall no urinary symptoms, abdominal pain appetite is good pleasantly confused but conversant no other symptoms Review of Systems Review of Systems: all noted and negative except for above Physical Exam Physical Exam: General- oriented x 1, not in distress, speaks in sentences with no effort or accessory muscle use Eyes- anicteric Neck- no JVD Lungs- clear BS BL, no rales/wheezes Heart- normal rate, regular rhythm; no murmurs Abdomen- normal bowel sounds, nondistended, soft, no tenderness Extremities- no pretibial edema, no calf tenderness Neuro- alert, oriented x 1; no gross focal neurologic deficits Skin- warm & dry Results & Data Results & Data ([facility]) Vital Signs (Past 12 Hours) Vital Signs Temp Pulse Pulse Resp BP BP Pulse Ox 07/17/22 15:31 36.9 C 65 20 111/67 99 07/17/22 15:21 65 07/17/22 11:15 36.7 C 71 20 112/67 99 07/17/22 07:48 36.3 C L 70 18 167/89 H 99 07/17/22 07:37 62 O2 Del Method 07/17/22 15:31 Room Air 07/17/22 15:21 07/17/22 11:15 Room Air 07/17/22 07:48 Room Air 07/17/22 07:37 all noted and reviewed including below
[2022-07-17] MEDS: cloZAPine 100 MG TAB PO SCH (21:25)
[2022-07-17] MEDS: PANTOprazole 40 MG TAB PO SCH (21:25)
[2022-07-17] MEDS: ATORVASTATIN 20 MG TAB PO SCH (21:25)
[2022-07-17] MEDS: LORATADINE 10 MG TAB PO SCH (21:25)
[2022-07-18] MEDS: HEPARIN SOD 5,000 UNIT/0.5 ML VIAL SQ SCH ×2 (06:05→13:28)
[2022-07-18] MEDS: ACETAMINOPHEN 325 MG TAB PO PRN ×2 (06:05→19:19)
[2022-07-18] MEDS: LEVOTHYROXINE SODIUM 50 MCG TABLET PO SCH (06:06)
[2022-07-18 07:28] LABS: Creatinine Clr Calc Pharmacy 65.4 ml/min; Est GFR (African American) 100.3 ml/min; Est GFR (Non-African American) 86.6 ml/min
[2022-07-18] MEDS: INSULIN ASPART PER UNIT SC SCH ×4 (08:24→23:26)
[2022-07-18] MEDS: ASPIRIN 81 MG ECTAB PO SCH (08:25)
[2022-07-18] MEDS: DULoxetine HCL 60 MG CAP PO SCH (08:25)
[2022-07-18] MEDS: cloZAPine 25 MG TAB PO SCH (08:25)
[2022-07-18] MEDS: METOPROLOL SUCC 50MG EXT REL TAB PO SCH (08:25)
[2022-07-18] MEDS: POLYETHYLENE (MIRALAX) 17 GM PACK PO SCH (08:26)
[2022-07-18] MEDS: FLUTICASONE PROPIONATE NA SPR 16 GM BTL SCH (08:26)
[2022-07-18] MEDS: CEFEPIME 2,000 MG in SYRINGE 0 ML IV SCH ×2 (13:28→19:46)
--- NOTE | 2022-07-18 15:48 | Hospitalist Progress Note ---
Date of Service July 18, 2022 Assessment & Plan (1) Acute metabolic encephalopathy: Plan per Dr. Hickman's notes with addendum: (1) Acute metabolic encephalopathy: Plan: Likely secondary to Pseudomonas UTI History of schizoaffective disorder stroke workup done with ct head , cta head and neck were unremarkable Urine culture: Pseudomonas Aztreonam changed to cefepime day number 3 out of 5 On usual psych meds Mental status seems to be back to baseline Discharge once IV cefepime completed-last dose 07/20/2022 (2) Possible aspiration pneumonitis on ct abd/plevis: mild infiltrates R lower lobe Given aztreonam IV Day 2 + Flagyl Now on cefepime IV day 3 #3 Speech therapy eval: no aspiration LAURI Cr 1.3 improved, now 0.7 baseline cr 0.5. Hypertension on metoprolol and lisinopril Hypothyroidism, euthyroid as of recent TSH hyperlipidemia on statin Rx DM2 on oral meds, well-controlled as of recent hemoglobin A1c of 6.03 May 2022 ISS. history of brain tumor status post partial surgery years ago (unknown pathology), hx somatization disorder resume Clozapine chronic anemia, stable DVT prophylaxis. Heparin subcu Full code as per patient's prior directives. Disposition Return to [facility] once IV cefepime course completed on 07/20/2022 Admission and Anticipated Discharge Date Admission Date: July 15, 2022 Subjective ff up for Pseudomonas UTI, metabolic encephalopathy, dementia etc. Seen resting in bed, sleeping but easily awakened Calm, cooperative, mostly confused but easily reoriented States that she feels fine overall Has some mild frontal headache Did not sleep well last night Otherwise no urinary symptoms, abdominal pain, fevers or chills, nausea vomiting Appetite is good No other symptoms Review of Systems Review of Systems: all noted and negative except for above Physical Exam Physical Exam: General- oriented x 1, not in distress, speaks in sentences with no effort or accessory muscle use Eyes- anicteric Neck- no JVD Lungs- clear BS BL Heart- normal rate, regular rhythm; no murmurs Abdomen- normal bowel sounds, nondistended, soft, nontender Extremities- no pretibial edema, no calf tenderness Neuro- alert, oriented x 3; no gross focal neurologic deficits Skin- warm & dry Results & Data Results & Data ([facility]) Vital Signs (Past 12 Hours) Vital Signs Temp Pulse Pulse Resp BP Pulse Ox O2 Del Method 07/18/22 15:31 36.6 C 67 16 101/65 99 Room Air 07/18/22 11:03 36.7 C 65 16 142/71 H 98 Room Air 07/18/22 08:08 35.6 C L 66 17 158/82 H 97 Room Air 07/18/22 07:28 73 07/18/22 03:47 36.3 C L 66 18 143/78 H 98 Room Air all noted and reviewed including below
[2022-07-18] MEDS: ADVANCED PROBIOTIC 1250 MG CAPSULE PO SCH (17:22)
[2022-07-18 20:21] LABS: Basophils # (auto) 0.04 K/uL (0-0.2); Basophils % (auto) 0.8 %; Eosinophils # (auto) 0.01 K/uL (0-0.50); Eosinophils % (auto) 0.2 %; Hematocrit (blood only) 30.7 % (34.1-44.9); Hemoglobin 10.4 g/dl (12.0-16.0); Immature Granulocytes # (auto) 0.02 K/uL (0.00-0.02); Immature Granulocytes % (auto) 0.4 %; Lymphocytes # (auto) 1.79 K/uL (1.2-3.4); Mean Corpuscular Hemoglobin 31.4 pg (25.0-34.0); Mean Corpuscular Hgb Conc 33.9 g/dL (32.0-36.0); Mean Corpuscular Volume 92.7 fL (80.0-100.0); Mean Platelet Volume 10.5 fL (9.4-12.3); Monocytes # (auto) 0.69 K/uL (0.24-0.82); Monocytes % (auto) 13.1 %; Neutrophils # (auto) 2.71 K/uL (1.4-6.5); Neutrophils % (auto) 51.5 %; Platelet Count 178 K/uL (130-400); RDW Coefficient of Variation 16.1 % (11.5-14.5); RDW Standard Deviation 54.8 fL (36.4-46.3); Red Blood Count 3.31 M/uL (3.93-5.22); White Blood Count 5.26 K/ul (4.8-10.8)
[2022-07-18] MEDS: cloZAPine 100 MG TAB PO SCH (21:31)
[2022-07-18] MEDS: PANTOprazole 40 MG TAB PO SCH (21:31)
[2022-07-18] MEDS: ATORVASTATIN 20 MG TAB PO SCH (21:31)
[2022-07-18] MEDS: LORATADINE 10 MG TAB PO SCH (21:31)
[2022-07-19] MEDS: CEFEPIME 2,000 MG in SYRINGE 0 ML IV SCH ×3 (05:08→20:05)
[2022-07-19] MEDS: LEVOTHYROXINE SODIUM 50 MCG TABLET PO SCH (06:33)
[2022-07-19] MEDS: INSULIN ASPART PER UNIT SC SCH ×4 (07:53→20:06)
[2022-07-19] MEDS: cloZAPine 25 MG TAB PO SCH (07:54)
[2022-07-19] MEDS: FLUTICASONE PROPIONATE NA SPR 16 GM BTL SCH (07:54)
[2022-07-19] MEDS: METOPROLOL SUCC 50MG EXT REL TAB PO SCH (07:55)
[2022-07-19] MEDS: DULoxetine HCL 60 MG CAP PO SCH (07:55)
[2022-07-19] MEDS: metroNIDAZOLE 500 MG TAB PO SCH ×3 (07:55→20:04)
[2022-07-19] MEDS: SENNA 8.6 MG TAB PO SCH (07:55)
[2022-07-19] MEDS: POLYETHYLENE (MIRALAX) 17 GM PACK PO SCH (07:56)
[2022-07-19] MEDS: ADVANCED PROBIOTIC 1250 MG CAPSULE PO SCH (07:56)
[2022-07-19 08:38] LABS: Creatinine Clr Calc Pharmacy 70.4 ml/min; Est GFR (African American) 102.8 ml/min; Est GFR (Non-African American) 88.7 ml/min
--- NOTE | 2022-07-19 10:53 | Hospitalist Progress Note ---
Date of Service July 19, 2022 Assessment & Plan (1) Acute metabolic encephalopathy: Plan (1) Acute metabolic encephalopathy: Plan: Likely secondary to Pseudomonas UTI History of schizoaffective disorder stroke workup done with ct head , cta head and neck were unremarkable Urine culture: Pseudomonas Aztreonam changed to cefepime day number 4 out of 5 On usual psych meds Mental status seems to be back to baseline Discharge once IV cefepime completed-last dose 07/20/2022 (2) Possible aspiration pneumonitis on ct abd/plevis: mild infiltrates R lower lobe Given aztreonam IV Day 2 + Flagyl Now on cefepime IV day 4 Speech therapy eval: no aspiration LAURI Cr 1.3 improved, now 0.7 baseline cr 0.5. Hypertension on metoprolol and lisinopril Hypothyroidism, euthyroid as of recent TSH hyperlipidemia on statin Rx DM2 on oral meds, well-controlled as of recent hemoglobin A1c of 6.03 May 2022 ISS. history of brain tumor status post partial surgery years ago (unknown pathology), hx somatization disorder resume Clozapine chronic anemia, stable DVT prophylaxis. Heparin subcu Full code as per patient's prior directives. Disposition Return to [facility] once IV cefepime course completed on 07/20/2022 Admission and Anticipated Discharge Date Admission Date: July 15, 2022 Subjective Patient seen in follow-up for Pseudomonas UTI, metabolic encephalopathy, dementia etc. Seen resting in bed Calm, cooperative, reports knowing that she is in the hospital States that she feels fine overall Reports urinary symptoms much improved Otherwise denies any abdominal pain, fevers or chills, nausea vomiting Appetite is ok Review of Systems Review of Systems: All systems reviewed & are unremarkable except as noted in Subjective Physical Exam Physical Exam: General- elderly f in NAD, speaks in sentences with no effort or accessory muscle use Eyes- anicteric Neck- no JVD Lungs- clear BS BL Heart- normal rate, regular rhythm; no murmurs Abdomen- normal bowel sounds, nondistended, soft, nontender Extremities- no pretibial edema, no calf tenderness Neuro- awake and alert, no facial asymmetry, able to answer simple questions appropriately, moves extremities Skin- warm & dry Results & Data Results & Data ([facility]) Vital Signs (Past 12 Hours) Vital Signs Temp Pulse Pulse Resp BP BP Pulse Ox 07/19/22 07:50 07/19/22 07:42 36.5 C 70 16 120/71 98 07/19/22 07:08 61 07/19/22 03:32 36.4 C L 66 18 161/83 H 100 07/19/22 00:42 65 07/18/22 23:20 36.4 C L 64 18 123/72 98 O2 Del Method 07/19/22 07:50 Room Air 07/19/22 07:42 Room Air 07/19/22 07:08 07/19/22 03:32 Room Air 07/19/22 00:42 07/18/22 23:20 Room Air Laboratory Results 07/19/22 07/19/22 07/18/22 Range/Units 07:46 07:17 20:02 WBC (4.8-10.8) K/ul RBC (3.93-5.22) M/uL Hgb (12.0-16.0) g/dl Hct (34.1-44.9) % MCV (80.0-100.0) fL MCH (25.0-34.0) pg MCHC (32.0-36.0) g/dL RDW Std Deviation (36.4-46.3) fL RDW Coeff of Cyn (11.5-14.5) % Plt Count (130-400) K/uL MPV (9.4-12.3) fL Immature Gran % (Auto) % Neut % (Auto) % Lymph % (Auto) % [place] % (Auto) % Eos % (Auto) % Baso % (Auto) % Neut # (Auto) (1.4-6.5) K/uL Lymph # (Auto) (1.2-3.4) K/uL [place] # (Auto) (0.24-0.82) K/uL Eos # (Auto) (0-0.50) K/uL Baso # (Auto) (0-0.2) K/uL Immature Gran # (Auto) (0.00-0.02) K/uL Creatinine 0.65 (0.6-1.2) mg/dl Est Cr Clr Drug Dosing 70.4 ml/min Est GFR ( Amer) 102.8 ml/min Est GFR (Non-Af Amer) 88.7 ml/min POC Glucose 111 H 106 H (70-99) mg/dl Blood Type Antibody Screen 07/18/22 07/18/22 07/18/22 Range/Units 20:02 20:02 16:43 WBC 5.26 (4.8-10.8) K/ul RBC 3.31 L (3.93-5.22) M/uL Hgb 10.4 L (12.0-16.0) g/dl Hct 30.7 L (34.1-44.9) % MCV 92.7 (80.0-100.0) fL MCH 31.4 (25.0-34.0) pg MCHC 33.9 (32.0-36.0) g/dL RDW Std Deviation 54.8 H (36.4-46.3) fL RDW Coeff of Cyn 16.1 H (11.5-14.5) % Plt Count 178 (130-400) K/uL MPV 10.5 (9.4-12.3) fL Immature Gran % (Auto) 0.4 % Neut % (Auto) 51.5 % Lymph % (Auto) 34.0 % [place] % (Auto) 13.1 % Eos % (Auto) 0.2 % Baso % (Auto) 0.8 % Neut # (Auto) 2.71 (1.4-6.5) K/uL Lymph # (Auto) 1.79 (1.2-3.4) K/uL [place] # (Auto) 0.69 (0.24-0.82) K/uL Eos # (Auto) 0.01 (0-0.50) K/uL Baso # (Auto) 0.04 (0-0.2) K/uL Immature Gran # (Auto) 0.02 (0.00-0.02) K/uL Creatinine (0.6-1.2) mg/dl Est Cr Clr Drug Dosing ml/min Est GFR ( Amer) ml/min Est GFR (Non-Af Amer) ml/min POC Glucose 105 H (70-99) mg/dl Blood Type O Positive Antibody Screen NEGATIVE 07/18/22 Range/Units 11:24 WBC (4.8-10.8) K/ul RBC (3.93-5.22) M/uL Hgb (12.0-16.0) g/dl Hct (34.1-44.9) % MCV (80.0-100.0) fL MCH (25.0-34.0) pg MCHC (32.0-36.0) g/dL RDW Std Deviation (36.4-46.3) fL RDW Coeff of Cyn (11.5-14.5) % Plt Count (130-400) K/uL MPV (9.4-12.3) fL Immature Gran % (Auto) % Neut % (Auto) % Lymph % (Auto) % [place] % (Auto) % Eos % (Auto) % Baso % (Auto) % Neut # (Auto) (1.4-6.5) K/uL Lymph # (Auto) (1.2-3.4) K/uL [place] # (Auto) (0.24-0.82) K/uL Eos # (Auto) (0-0.50) K/uL Baso # (Auto) (0-0.2) K/uL Immature Gran # (Auto) (0.00-0.02) K/uL Creatinine (0.6-1.2) mg/dl Est Cr Clr Drug Dosing ml/min Est GFR ( Amer) ml/min Est GFR (Non-Af Amer) ml/min POC Glucose 109 H (70-99) mg/dl Blood Type Antibody Screen Medications Administered Current Inpatient Medications Acetaminophen (Acetaminophen 325 Mg Tab) 650 mg PO Q4 PRN PRN Reason: pain 1-3 Stop: 08/13/22 03:11 Last Admin: 07/18/22 19:19 Dose: 650 mg Aspirin (Aspirin 81 Mg Ectab) 81 mg PO DAILY [facility] Stop: 08/13/22 08:59 Last Admin: 07/18/22 08:25 Dose: 81 mg Atorvastatin Calcium (Atorvastatin 20 Mg Tab) 20 mg PO PM [facility] Stop: 08/13/22 20:59 Last Admin: 07/18/22 21:31 Dose: 20 mg Clozapine (Clozapine 25 Mg Tab) 50 mg PO QAM [facility]; Protocol Stop: 08/15/22 08:59 Last Admin: 07/19/22 07:54 Dose: 50 mg Clozapine (Clozapine 100 Mg Tab) 300 mg PO HS [facility]; Protocol Stop: 08/14/22 20:59 Last Admin: 07/18/22 21:31 Dose: 300 mg Dextrose (Dextrose 50% 50 Ml Syringe) 25 - 50 ml IV UD PRN; Protocol PRN Reason: Hypoglycemia Protocol Stop: 08/13/22 03:11 Duloxetine HCl (Duloxetine Hcl 60 Mg Cap) 60 mg PO QAM [facility] Stop: 08/15/22 08:59 Last Admin: 07/19/22 07:55 Dose: 60 mg Fluticasone Propionate (Fluticasone Propionate Na Spr 16 Gm Btl) 2 sprays NA DAILY [facility] Stop: 08/13/22 08:59 Last Admin: 07/19/22 07:54 Dose: 2 sprays Glucagon (Glucagon For Inj 1 Mg Vial) 1 mg SQ UD PRN; Protocol PRN Reason: Hypoglycemia Protocol Stop: 08/13/22 03:11 Glucose (Glucose 40% Gel 15 Gm Tube) 15 - 30 gm PO UD PRN; Protocol PRN Reason: Hypoglycemia Protocol Stop: 08/13/22 03:11 Glucose (Glucose 10 Tab/Tube) 4 - 8 tab PO UD PRN; Protocol PRN Reason: Hypoglycemia Treatment Stop: 08/13/22 03:11 Heparin Sodium (Porcine) (Heparin Sod 5,000 Unit/0.5 Ml Vial) 5,000 units SQ Q8 [facility] Stop: 08/13/22 05:59 Last Admin: 07/18/22 13:28 Dose: 5,000 units Hydralazine HCl (Hydralazine Hcl 20 Mg/Ml Vial) 5 mg IV Q6H PRN PRN Reason: Hypertension Stop: 08/13/22 18:59 Promethazine HCl 6.25 mg/ (Sodium Chloride) 50.25 mls @ 201 mls/hr IV Q6H PRN PRN Reason: Nausea And Vomiting Stop: 08/14/22 20:54 Last Infusion: 07/15/22 21:57 Dose: Infused Cefepime HCl 2,000 mg/ Syringe 20 mls @ 5 mls/min IV Q8H [facility]; Protocol Stop: 07/21/22 11:59 Last Admin: 07/19/22 05:08 Dose: 5 mls/min Insulin Aspart (Insulin Aspart Per Unit) 0 units SC ACHS [facility] Stop: 08/13/22 03:11 Last Admin: 07/19/22 07:53 Dose: Not Given Lactobacillus Acidophilus (Advanced Probiotic 1250 Mg Capsule) 2 cap PO DAILY [facility] Stop: 08/17/22 15:44 Last Admin: 07/19/22 07:56 Dose: 2 cap Levothyroxine Sodium (Levothyroxine Sodium 50 Mcg Tablet) 50 mcg PO DAILYBB [facility] Stop: 08/13/22 06:29 Last Admin: 07/19/22 06:33 Dose: 50 mcg Loratadine (Loratadine 10 Mg Tab) 10 mg PO HS [facility] Stop: 08/13/22 20:59 Last Admin: 07/18/22 21:31 Dose: 10 mg Magnesium Hydroxide (Magnesium Hydroxide Susp 30 Ml Udc) 30 ml PO Q6H PRN PRN Reason: Constipation Stop: 08/14/22 15:59 Melatonin (Melatonin 3 Mg Tab) 3 mg PO HS PRN PRN Reason: Sleep Stop: 08/13/22 22:10 Last Admin: 07/16/22 21:07 Dose: 3 mg Metoprolol Succinate (Metoprolol Succ 50mg Ext Rel Tab) 50 mg PO QAM [facility] Stop: 08/13/22 08:59 Last Admin: 07/19/22 07:55 Dose: 50 mg Metronidazole (Metronidazole 500 Mg Tab) 500 mg PO TID [facility] Stop: 07/26/22 08:59 Last Admin: 07/19/22 07:55 Dose: 500 mg Miscellaneous (Carbohydrates For Hypoglycemia ) 15 - 30 gm PO UD PRN PRN Reason: Hypoglycemia Protocol Stop: 08/13/22 03:11 Pantoprazole Sodium (Pantoprazole 40 Mg Tab) 40 mg PO HS [facility] Stop: 08/13/22 20:59 Last Admin: 07/18/22 21:31 Dose: 40 mg Polyethylene Glycol (Polyethylene (Miralax) 17 Gm Pack) 17 gm PO DAILY [facility] Stop: 08/14/22 15:59 Last Admin: 07/19/22 07:56 Dose: 17 gm Psyllium Hydrophilic Mucilloid (Psyllium Or Guar Gum Fiber Powder Packet) 1 pkt PO TID PRN PRN Reason: Constipation Stop: 08/13/22 03:17 Sennosides (Senna 8.6 Mg Tab) 8.6 mg PO QAM [facility] Stop: 08/18/22 08:59 Last Admin: 07/19/22 07:55 Dose: 8.6 mg
[2022-07-19] MEDS: LORATADINE 10 MG TAB PO SCH (20:04)
[2022-07-19] MEDS: ACETAMINOPHEN 325 MG TAB PO PRN (20:04)
[2022-07-19] MEDS: PANTOprazole 40 MG TAB PO SCH (20:05)
[2022-07-19] MEDS: cloZAPine 100 MG TAB PO SCH (20:05)
[2022-07-19] MEDS: ATORVASTATIN 20 MG TAB PO SCH (20:05)
[2022-07-20] MEDS: CEFEPIME 2,000 MG in SYRINGE 0 ML IV SCH ×2 (05:06→12:55)
[2022-07-20] MEDS: LEVOTHYROXINE SODIUM 50 MCG TABLET PO SCH (06:00)
[2022-07-20] MEDS: INSULIN ASPART PER UNIT SC SCH ×2 (08:27→12:43)
[2022-07-20] MEDS: ADVANCED PROBIOTIC 1250 MG CAPSULE PO SCH (08:50)
[2022-07-20] MEDS: metroNIDAZOLE 500 MG TAB PO SCH ×2 (08:50→12:55)
[2022-07-20] MEDS: DULoxetine HCL 60 MG CAP PO SCH (08:50)
[2022-07-20] MEDS: FLUTICASONE PROPIONATE NA SPR 16 GM BTL SCH (08:50)
[2022-07-20] MEDS: SENNA 8.6 MG TAB PO SCH (08:50)
[2022-07-20] MEDS: POLYETHYLENE (MIRALAX) 17 GM PACK PO SCH (08:50)
[2022-07-20] MEDS: cloZAPine 25 MG TAB PO SCH (08:50)
[2022-07-20] MEDS: METOPROLOL SUCC 50MG EXT REL TAB PO SCH (08:51)
[2022-07-20] MEDS ORDERED: bisacodyL 10 MG SUPP PR STA (10:50)
[2022-07-20] MEDS ORDERED: MAGNESIUM HYDROXIDE SUSP 30 ML UDC PO ONE (10:50)
--- NOTE | 2022-07-20 11:28 | Hospitalist Progress Note ---
Date of Service July 20, 2022 Assessment & Plan (1) Acute metabolic encephalopathy: Plan (1) Acute metabolic encephalopathy: Plan: Likely secondary to Pseudomonas UTI History of schizoaffective disorder stroke workup done with ct head , cta head and neck were unremarkable Urine culture: Pseudomonas Aztreonam changed to cefepime day number 5 out of 5 seen by urology, constipation likely contributing Pt on bowel regimen Outpt urology follow up On usual psych meds Mental status seems to be back to baseline Discharge once IV cefepime completed-last dose 07/20/2022 (2) Possible aspiration pneumonitis on ct abd/plevis: mild infiltrates R lower lobe Given aztreonam IV Day 2 + Flagyl Now on cefepime IV day 5 Speech therapy eval: no aspiration LAURI Cr 1.3 improved, now 0.7 baseline cr 0.5. Hypertension on metoprolol and lisinopril Hypothyroidism, euthyroid as of recent TSH hyperlipidemia on statin Rx DM2 on oral meds, well-controlled as of recent hemoglobin A1c of 6.03 May 2022 ISS. history of brain tumor status post partial surgery years ago (unknown pathology), hx somatization disorder resume Clozapine chronic anemia, stable DVT prophylaxis. Heparin subcu Full code as per patient's prior directives. Disposition Return to [facility] once IV cefepime course completed on 07/20/2022 Admission and Anticipated Discharge Date Admission Date: July 15, 2022 Subjective Patient seen in follow-up for Pseudomonas UTI, metabolic encephalopathy, dementia etc. Seen resting in bed Overnight difficulty with sleeping, took melatonin Reports urinary symptoms much improved Otherwise denies any abdominal pain, fevers or chills, nausea vomiting Appetite is ok Per RN, unaware of any BM in the past few days. Patient is on bowel regimen. Will order suppository, and milk of magnesia. Review of Systems Review of Systems: All systems reviewed & are unremarkable except as noted in Subjective Physical Exam Physical Exam: General- elderly F in NAD, speaks in sentences with no effort or accessory muscle use Eyes- anicteric Neck- no JVD Lungs- clear BS BL Heart- normal rate, regular rhythm; no murmurs Abdomen- normal bowel sounds, nondistended, soft, nontender Extremities- no pretibial edema, no calf tenderness Neuro- drowsy but awakes easily and answers simple questions appropriately, no facial asymmetry, moves extremities Skin- warm & dry Results & Data Results & Data ([facility]) Vital Signs (Past 12 Hours) Vital Signs Temp Pulse Pulse Resp BP BP Pulse Ox 07/20/22 11:05 36.4 C L 72 18 163/80 H 98 07/20/22 07:32 61 07/20/22 07:12 36.3 C L 69 16 156/85 H 100 07/20/22 02:43 36.4 C L 70 16 152/77 H 100 07/20/22 01:49 68 O2 Del Method 07/20/22 11:05 Room Air 07/20/22 07:32 07/20/22 07:12 Room Air 07/20/22 02:43 Room Air 07/20/22 01:49 Laboratory Results 07/20/22 07/20/22 07/19/22 Range/Units 11:21 07:40 20:02 POC Glucose 121 H 106 H 114 H (70-99) mg/dl 07/19/22 07/19/22 Range/Units 16:50 11:52 POC Glucose 114 H 129 H (70-99) mg/dl Medications Administered Current Inpatient Medications Acetaminophen (Acetaminophen 325 Mg Tab) 650 mg PO Q4 PRN PRN Reason: pain 1-3 Stop: 08/13/22 03:11 Last Admin: 07/19/22 20:04 Dose: 650 mg Aspirin (Aspirin 81 Mg Ectab) 81 mg PO DAILY [facility] Stop: 08/13/22 08:59 Last Admin: 07/18/22 08:25 Dose: 81 mg Atorvastatin Calcium (Atorvastatin 20 Mg Tab) 20 mg PO PM [facility] Stop: 08/13/22 20:59 Last Admin: 07/19/22 20:05 Dose: 20 mg Clozapine (Clozapine 25 Mg Tab) 50 mg PO QAM [facility]; Protocol Stop: 08/15/22 08:59 Last Admin: 07/20/22 08:50 Dose: 50 mg Clozapine (Clozapine 100 Mg Tab) 300 mg PO HS [facility]; Protocol Stop: 08/14/22 20:59 Last Admin: 07/19/22 20:05 Dose: 300 mg Dextrose (Dextrose 50% 50 Ml Syringe) 25 - 50 ml IV UD PRN; Protocol PRN Reason: Hypoglycemia Protocol Stop: 08/13/22 03:11 Duloxetine HCl (Duloxetine Hcl 60 Mg Cap) 60 mg PO QAM [facility] Stop: 08/15/22 08:59 Last Admin: 07/20/22 08:50 Dose: 60 mg Fluticasone Propionate (Fluticasone Propionate Na Spr 16 Gm Btl) 2 sprays NA DAILY [facility] Stop: 08/13/22 08:59 Last Admin: 07/20/22 08:50 Dose: 2 sprays Glucagon (Glucagon For Inj 1 Mg Vial) 1 mg SQ UD PRN; Protocol PRN Reason: Hypoglycemia Protocol Stop: 08/13/22 03:11 Glucose (Glucose 40% Gel 15 Gm Tube) 15 - 30 gm PO UD PRN; Protocol PRN Reason: Hypoglycemia Protocol Stop: 08/13/22 03:11 Glucose (Glucose 10 Tab/Tube) 4 - 8 tab PO UD PRN; Protocol PRN Reason: Hypoglycemia Treatment Stop: 08/13/22 03:11 Heparin Sodium (Porcine) (Heparin Sod 5,000 Unit/0.5 Ml Vial) 5,000 units SQ Q8 [facility] Stop: 08/13/22 05:59 Last Admin: 07/18/22 13:28 Dose: 5,000 units Hydralazine HCl (Hydralazine Hcl 20 Mg/Ml Vial) 5 mg IV Q6H PRN PRN Reason: Hypertension Stop: 08/13/22 18:59 Promethazine HCl 6.25 mg/ (Sodium Chloride) 50.25 mls @ 201 mls/hr IV Q6H PRN PRN Reason: Nausea And Vomiting Stop: 08/14/22 20:54 Last Infusion: 07/15/22 21:57 Dose: Infused Cefepime HCl 2,000 mg/ Syringe 20 mls @ 5 mls/min IV Q8H [facility]; Protocol Stop: 07/21/22 11:59 Last Admin: 07/20/22 05:06 Dose: 5 mls/min Insulin Aspart (Insulin Aspart Per Unit) 0 units SC ACHS [facility] Stop: 08/13/22 03:11 Last Admin: 07/20/22 08:27 Dose: Not Given Lactobacillus Acidophilus (Advanced Probiotic 1250 Mg Capsule) 2 cap PO DAILY [facility] Stop: 08/17/22 15:44 Last Admin: 07/20/22 08:50 Dose: 2 cap Levothyroxine Sodium (Levothyroxine Sodium 50 Mcg Tablet) 50 mcg PO DAILYBB [facility] Stop: 08/13/22 06:29 Last Admin: 07/20/22 06:00 Dose: 50 mcg Loratadine (Loratadine 10 Mg Tab) 10 mg PO HS [facility] Stop: 08/13/22 20:59 Last Admin: 07/19/22 20:04 Dose: 10 mg Magnesium Hydroxide (Magnesium Hydroxide Susp 30 Ml Udc) 30 ml PO Q6H PRN PRN Reason: Constipation Stop: 08/14/22 15:59 Melatonin (Melatonin 3 Mg Tab) 3 mg PO HS PRN PRN Reason: Sleep Stop: 08/13/22 22:10 Last Admin: 07/16/22 21:07 Dose: 3 mg Metoprolol Succinate (Metoprolol Succ 50mg Ext Rel Tab) 50 mg PO QAM [facility] Stop: 08/13/22 08:59 Last Admin: 07/20/22 08:51 Dose: 50 mg Metronidazole (Metronidazole 500 Mg Tab) 500 mg PO TID [facility] Stop: 07/26/22 08:59 Last Admin: 07/20/22 08:50 Dose: 500 mg Miscellaneous (Carbohydrates For Hypoglycemia ) 15 - 30 gm PO UD PRN PRN Reason: Hypoglycemia Protocol Stop: 08/13/22 03:11 Pantoprazole Sodium (Pantoprazole 40 Mg Tab) 40 mg PO HS [facility] Stop: 08/13/22 20:59 Last Admin: 07/19/22 20:05 Dose: 40 mg Polyethylene Glycol (Polyethylene (Miralax) 17 Gm Pack) 17 gm PO DAILY [facility] Stop: 08/14/22 15:59 Last Admin: 07/20/22 08:50 Dose: 17 gm Psyllium Hydrophilic Mucilloid (Psyllium Or Guar Gum Fiber Powder Packet) 1 pkt PO TID PRN PRN Reason: Constipation Stop: 08/13/22 03:17 Sennosides (Senna 8.6 Mg Tab) 8.6 mg PO QAM [facility] Stop: 08/18/22 08:59 Last Admin: 07/20/22 08:50 Dose: 8.6 mg
[2022-07-20] MEDS ORDERED: POLYETHYLENE (MIRALAX) 17 GM PACK PO ONE (12:58)
[2022-07-20] MEDS ORDERED: lisinopril 10 MG TAB PO ONE (15:15)
--- NOTE | 2022-07-20 15:19 | Discharge Summary ---
Date of Service July 20, 2022 Admission HPI Per Admitting Provider History obtained from patient, family, personal care facility staff, and records. Limited history from patient secondary to obtunded state. Medical history significant for hypertension, hypothyroidism, hyperlipidemia, DM2 on oral meds, history of brain tumor status post partial surgery years ago (unknown pathology), somatization disorder, schizophrenia, chronic anemia (baseline hemoglobin of 10 ), recurrent UTIs, urinary incontinence. Two confinements last May 2022 for encephalopathy, recurrent UTIs. Patient discharged to [facility] rehab facility. As per patient caregiver, [facility] 2 days ago for additional rehab before patient returns home. Last night, patient noted to be weak and glassy eyed. Patient confused and with garbled speech. Patient with nausea symptoms. Stroke alert called upon arrival at the ER. tPA not recommended due to improvement in mentation as per ER provider. Aspirin administered at the ER. Patient currently unable to respond to questions regarding headache, chest pain, SOB, abdominal pain, dysuria symptoms currently due to obtunded state. MEDICAL HISTORY: As above. SURGICAL HISTORY: partial benign brain tumor surgery, foot surgery, cystoscopy, hysteroscopy with biopsy cataract surgeries FAMILY HISTORY: DM, Breast cancer, heart disease PERSONAL AND SOCIAL HISTORY: Nonsmoker. No chronic intake of alcoholic beverages. She is on disability. Admission Exam Per Admitting Provider GENERAL: Obtunded, chronically ill, no respiratory distress SKIN: Pallor, warm HEENT: Pale palpebral conjunctivae, no ptosis, dry buccal mucosa NECK : Supple, no tenderness CHEST : Decreased breath sounds, no tenderness HEART : RRR, no obvious murmurs ABDOMEN: Some distention, nontender EXTREMITIES : No LE swelling/tenderness, no other conspicuous deformities noted NEUROLOGIC : Obtunded, no facial asymmetry, gait and stance not assessed Principal Diagnosis Metabolic encephalopathy Pseudomonas UTI Constipation Discharge Exam General- elderly F in NAD, speaks in sentences with no effort or accessory muscle use Eyes- anicteric Neck- no JVD Lungs- clear BS BL Heart- normal rate, regular rhythm; no murmurs Abdomen- normal bowel sounds, nondistended, soft, nontender Extremities- no pretibial edema, no calf tenderness Neuro- drowsy but awakes easily and answers simple questions appropriately, no facial asymmetry, moves extremities Skin- warm & dry Discharge Data Allergies Allergy/AdvReac Type Severity Reaction Status Date / Time Cephalosporins Allergy Intermediate Hallucinati Verified 07/13/22 22:56 ons Penicillins Allergy Intermediate Hives Verified 07/13/22 22:56 pollen extracts Allergy Intermediate seasonal Verified 07/13/22 22:56 allergy rizatriptan [From Maxalt] Allergy Unknown Unknown Verified 07/13/22 22:56 cyclobenzaprine AdvReac Intermediate neuro Verified 07/13/22 22:56 [From Flexeril] complications Consultations 07/13/22 23:13 ED Decision to Admit Stat 07/14/22 19:40 Consult Urology Routine Ordered Studies 07/13/22 22:07 CT angio head w con Urgent IMPRESSION: No central vessel occlusion. No intracranial aneurysm. CT angio neck with con Urgent IMPRESSION: Unremarkable CT angiogram of the neck. CT head/brain wo con Urgent IMPRESSION: There is no hemorrhage, mass effect, or evidence of acute territorial ischemia by CT criteria. 07/14/22 09:21 CT abd pelvis wo con Urgent IMPRESSION: 1. Patchy ground glass consolidation is seen throughout the right lower lobe. The appearance is typical for pneumonia/aspiration pneumonitis. Clinical correlation will be required. 2. Severe constipation. 3. The bladder is distended and there are innumerable bladder diverticula. The appearance suggests chronic outlet obstruction. Clinical correlation will be required. 4. There are bilateral inguinal hernias, containing bowel on the right and the portion of the bladder on the left. 5. There is contrast within the vagina. This is nonspecific and may represent retrograde pooling of urine. Clinical correlation will be essential. 6. Additional findings as above. Hospital Course (1) Acute metabolic encephalopathy: Plan (1) Acute metabolic encephalopathy: Plan: Likely secondary to Pseudomonas UTI History of schizoaffective disorder stroke workup done with ct head , cta head and neck were unremarkable Urine culture: Pseudomonas Aztreonam changed to cefepime day number 5 out of 5 seen by urology, constipation likely contributing Pt on bowel regimen- docusate at home. Here started on miralax. Continue docusate and MiraLAX on discharge Outpt urology follow up On usual psych meds Mental status seems to be back to baseline Discharge once IV cefepime completed-last dose 07/20/2022 (2) Possible aspiration pneumonitis on ct abd/plevis: mild infiltrates R lower lobe Given aztreonam IV Day 2 + Flagyl Now on cefepime IV day 5 Speech therapy eval: no aspiration LAURI Cr 1.3 improved, now 0.7 baseline cr 0.5. Hypertension on metoprolol and lisinopril Hypothyroidism, euthyroid as of recent TSH hyperlipidemia on statin Rx DM2 on oral meds, well-controlled as of recent hemoglobin A1c of 6.03 May 2022 ISS. history of brain tumor status post partial surgery years ago (unknown pathology), hx somatization disorder resume Clozapine chronic anemia, stable DVT prophylaxis. Heparin subcu Full code as per patient's prior directives. Disposition Return to [facility] once IV cefepime course completed on 07/20/2022 Total Time Total Time Spent Total Time Spent (In Minutes): 40 Discharge Plan Discharge Items Patient Disposition: [facility] Reason For Visit: ENCEPHALOPATHY Discharge Diagnosis: Metabolic encephalopathy Pseudomonas UTI Constipation Activity: Per Instructions section Non-emergency contact: Primary Care Provider Call non-emergency contact if: you have any medication questions and your symptoms worsen Follow-up/Referrals: Raymond Vann, [Primary Care Provider] - (Date & Time 07/27/2022 3:00 PM Provider Aminata Talley PA-C Department [facility] ) Diet: Regular and Carb Consistent or DM2 Addtl Attending Provider Instructions: Follow up with your primary care doctor, the appointment was scheduled for you for 07/27/2022. You were treated for urinary tract infection with IV antibiotics. You finished the treatment in the hospital. You may need to follow up with urology as outpatient. It was also found that you were constipated and that makes you more prone to have a UTI. Continue bowel regimen/ stool softener with docusate. It is important that you have a bowel movement every day. Start taking miralax daily. Use dulcolax suppository for next 2 days. If you still have troubles having bowel movement, use milk of magnesia. Discuss with your primary care doctor if you should take anything else to help you with bowel movements. Make sure to stay well hydrated. Pending Studies at Discharge: No Stand-Alone Forms: [employer], Smoking Cessation Skilled Items Patient informed of condition?: Yes DNR: No Discharge Level of Care: Other Communicable Disease: No Discharge Prognosis: Stable Lines: None Urinary Catheter: No Medications and DC Order Prescriptions: New polyethylene glycol 3350 [Miralax] 17 gram Powder In Packet 17 g PO DAILY 14 Days Qty: 14 0RF bisacodyl [Dulcolax (bisacodyl)] 10 mg suppository 10 mg ME DAILY 2 Days Qty: 2 0RF magnesium hydroxide [Milk of Magnesia] 400 mg/5 mL Suspension 30 ml PO Q6H PRN (Reason: constipation) Qty: 355 0RF Continued levothyroxine [Synthroid] 50 mcg tablet 50 mcg PO DAILYBB duloxetine [Cymbalta] 60 mg capsule,delayed release(DR/EC) 60 mg PO QAM atorvastatin 20 mg Tablet 20 mg PO PM sumatriptan succinate 100 mg Tablet 100 mg PO DAILY PRN (Reason: Headache) loratadine [Claritin] 10 mg Tablet 10 mg PO HS magnesium oxide 400 mg magnesium Tablet 400 mg PO QAM clozapine 25 mg tablet 50 mg PO QAM metoprolol succinate 50 mg tablet extended release 24 hr 50 mg PO QAM clozapine 100 mg tablet 300 mg PO HS Qty: 30 0RF riboflavin (vitamin B2) 400 mg tablet 400 mg PO QAM metformin 500 mg tablet 500 mg PO QAM Rx Instructions: take with breakfast cyanocobalamin (vitamin B-12) [Vitamin B-12] 1,000 mcg Tablet 1,000 mcg PO DAILY psyllium Powder 1 tsp PO TID PRN (Reason: Constipation) Rx Instructions: MAY TAKE UP TO 3 TIMES PER DAY. Vitron-C 65 mg iron- 125 mg Tablet,Delayed Release (Dr/Ec) 1 tab PO DAILY loperamide 2 mg Capsule 2 mg PO QID PRN (Reason: Diarrhea) meclizine 25 mg Tablet 25 mg PO .Q5HRS PRN (Reason: DIZZY) ondansetron 4 mg Tablet,Disintegrating 4 mg PO Q8H PRN (Reason: Nausea) fluticasone propionate [Flonase Allergy Relief] 50 mcg/actuation [place],S uspension 2 spray INTRANASAL DAILY cholecalciferol (vitamin D3) 1,250 mcg (50,000 unit) capsule 1,250 mcg PO WK Rx Instructions: wednesdays aspirin [Aspirin Childrens] 81 mg Tablet,Chewable 81 mg PO DAILY lisinopril 20 mg tablet 20 mg PO DAILY omeprazole 40 mg capsule,delayed release(DR/EC) 40 mg PO HS docusate sodium [Colace] 100 mg Capsule 100 mg PO BID acetaminophen 325 mg Tablet 650 mg PO Q4 MDD 3g PRN (Reason: pain 1-3) Discharge Orders: Discharge Order (Routine); Ordered 07/20/22 Ordered By: Bunny Cagle Admission Data Admit Date/Time: 07/15/22 16:03 Attending Provider: Bunny Cagle Admit Provider: Jesse Mcdonnell Primary Care Provider: Raymond Vann Other Providers: Jesse Mcdonnell ; Kin Helms ; Rui Worthy ; Shen Velasquez ; Renae Montgomery ; Kane Echeverria ; Sakshi Martines ; Mahnaz Huggins ; Samuel White ; Reji Gerber ; Lexie Mccormick ; Brian Vazquez ; Chacho Agudelo ; Bhavesh Hickman ; Stephane Marks
== END 2022-07-20 17:27 | disposition home or self-care (01) | DRG 689 ==
LOC: ED 22:10 → EDINP 22:10 → SUATTDRO 07-14 01:05 → EDINP 07-14 03:23 → 2N 07-14 14:27 → SUATTDRO 07-15 16:03

== ENCOUNTER 2022-09-01 09:42 | Inpatient (IN) ==
[2022-09-01] MEDS ORDERED: SODIUM CHLORIDE 0.9% 1000ML 1,000 ML IV ONE (10:03)
--- NOTE | 2022-09-01 10:03 | Emergency Department Note ---
Impression & Plan Unresponsive, AMS (altered mental status), Hyponatremia ED Provider Note NAME: LJ PRASAD AGE: 71 SEX: F : 1950 ARRIVES VIA: Walk-In INFORMANT: Patient ED PROVIDER(S): Tex Ching DO CHIEF COMPLAINT: Altered mental status HPI: Patient is a 71-year-old female brought in by EMS for possible overdose. Patient was found by sewer hand unresponsive and there with a bottle sumatriptan close by. Per report from EMS there was question if she got into her locked me dications but this cannot be collaborated. patient has history is otherwise limited as she is nonverbal due to altered mental status. PAST MEDICAL HISTORY:See Below PAST SURGICAL HISTORY:See Below FAMILY HISTORY:See Below SOCIAL HISTORY:See Below HOME MEDICATIONS:See Below ALLERGIES:See Below VITALS:See Below PHYSICAL EXAMINATION: GENERAL: Sitting up in bed, sonorous breathing, drooling on the left side of the face EYE EXAM: normal conjunctiva. Pupils are pinpoint OROPHARYNX: mucous membranes are moist LUNGS: Clear to auscultation. Normal chest wall mechanics HEART: no murmurs, S1 normal and S2 normal ABDOMEN: abdomen soft, non-tender, normo-active bowel sounds, no masses, no rebound or guarding. UPPER EXTREMITIES: upper extremities are grossly normal. LOWER EXTREMITIES: No pitting edema. NEURO EXAM: Sitting up in bed protecting airway, withdraws to painful stimuli. Pupils are pinpoint. Sternal rub patient moans. MEDICAL DECISION MAKING: Patient is a 71-year-old female brought in by EMS found to be unresponsive. External records were reviewed. IV was established blood work is obtained. Labs show no significant leukocytosis. Mild anemia 11.3. VBG with a slightly low pH at 7.32. BMP unremarkable with exception of a mildly elevated glucose of 127. LFTs bilirubin was unremarkable. Troponin was negative. Lipase was normal. UA was clean. Tox was negative. COVID-negative. CT head was negative. Chest x-ray was unremarkable. Patient was discussed with the hosp italist for further evaluation treatment and management with the unresponsiveness. Did not Narcan as patient was protecting airway. Triage Nursing notes reviewed. Limited review of prior medical records performed Vital Signs: reviewed and remarkable for no significant abnormalities Differential diagnosis: Differential diagnoses includes but is not limited to toxic, metabolic, infectious, traumatic, cardiac, neurologic, hematologic, psychiatric and inflammatory etiologies. ER treatment provided: See below Diagnostics interpreted by me include EKG and cardiac monitoring as listed below: -Cardiac Monitoring: An order was placed for continuous cardiac monitoring. The monitor shows a rate of 70 with sinus rhythm. -ECG: Sinus rhythm rate 69 Normal axis No PVCs QTc 452 -Laboratory studies:Interpreted by me as stated above in MDM and shown below. Imaging studies: Xrays: As interpreted by me: Portable AP upright 1 view shows no pneumonia CTs show: CT head was Consultation(s): Discussed with the hospitalist Renae jarquin for further evaluation management and treatment Procedures:none Critical Care: None Past Med/Surg History Medical History Anxiety COVID-19 Dehydration Dizziness DM2 (diabetes mellitus, type 2) GERD (gastroesophageal reflux disease) Well controlled with medication Headache HLD (hyperlipidemia) Hypertension Hypothyroidism Migraine Nausea Neuropathy Schizophrenia Somatization disorder Vertigo Surgical History H/O bilateral cataract extraction H/O brain surgery "abt 1969 R parietal exploration for benign lesion" H/O cystoscopy H/O foot surgery History of cataract surgery History of colonoscopy History of craniotomy 1969, [place] D/T HEADACHE---FOLLOWS W DR. MICHAEL History of tonsillectomy History of tooth extraction WISDOM TEETH S/P foot surgery, left X2 S/P foot surgery, right X2 Family History Grandmother Family history of diabetes mellitus PATERNAL Family/Other Family history of diabetes mellitus UNCLE Father Parkinson disease Mother CHF (congestive heart failure) Social History Smoking Status: Never smoker Second Hand Exposure: Yes (FATHER SMOKED); Hx Alcohol Use: No Hx Substance Use: No Preferred Language: Qatari Communication Ability: Effective Platform Worker Required: No Beliefs That Will Affect Care: None marital status: Single Current Living Situation: Personal Care Facility Current Living Situation Comment: [facility] How many Children do You have: 0 Feels Safe at Home: Yes Assistive Devices: Walker Allergies Allergies Allergy/AdvReac Type Severity Reaction Status Date / Time Cephalosporins Allergy Intermediate Hallucinati Verified 07/22/22 16:31 ons Penicillins Allergy Intermediate Hives Verified 07/22/22 16:31 pollen extracts Allergy Intermediate seasonal Verified 07/22/22 16:31 allergy rizatriptan [From Maxalt] Allergy Unknown Unknown Verified 07/22/22 16:31 cyclobenzaprine AdvReac Intermediate neuro Verified 07/22/22 16:31 [From Flexeril] complications Home Meds Home Medications Medication Instructions Recorded Confirmed duloxetine 60 mg capsule,delayed 60 mg PO QAM 04/14/18 09/01/22 release (Cymbalta) levothyroxine 50 mcg tablet 50 mcg PO DAILYBB 04/14/18 09/01/22 (Synthroid) loratadine 10 mg tablet (Claritin) 10 mg PO HS 03/25/19 09/01/22 magnesium oxide 400 mg PO QAM 03/25/19 09/01/22 atorvastatin 20 mg tablet 20 mg PO PM 11/22/19 09/01/22 sumatriptan succinate 100 mg tablet 100 mg PO DAILY PRN Headache 11/22/19 09/01/22 clozapine 25 mg tablet 50 mg PO QAM 11/06/20 09/01/22 metformin 500 mg tablet 500 mg PO QAM 02/24/21 09/01/22 riboflavin (vitamin B2) 400 mg 400 mg PO QAM 02/24/21 09/01/22 tablet metoprolol succinate 50 mg 50 mg PO QAM 04/15/21 09/01/22 tablet,extended release 24 hr cyanocobalamin (vitamin B-12) 1,000 mcg PO DAILY 05/17/21 09/01/22 1,000 mcg tablet (Vitamin B-12) iron,carbonyl 65 mg-vitamin C 125 1 tab PO DAILY 05/17/21 09/01/22 mg tablet,delayed release (Vitron-C) psyllium 1 tsp PO TID PRN Constipation 05/17/21 09/01/22 fluticasone propionate 50 2 spray intranasal DAILY 07/13/21 09/01/22 mcg/actuation nasal spray,suspension (Flonase Allergy Relief) loperamide 2 mg capsule 2 mg PO QID PRN Diarrhea 07/13/21 09/01/22 meclizine 25 mg tablet 25 mg PO .Q5HRS PRN DIZZY 07/13/21 09/01/22 ondansetron 4 mg disintegrating 4 mg PO Q8H PRN Nausea 07/13/21 09/01/22 tablet aspirin 81 mg chewable tablet 81 mg PO DAILY 05/12/22 09/01/22 (Aspirin Childrens) acetaminophen 325 mg tablet 650 mg PO Q4 PRN pain 1-3 07/13/22 09/01/22 docusate sodium 100 mg capsule 100 mg PO BID 07/13/22 09/01/22 (Colace) lisinopril 20 mg tablet 20 mg PO DAILY 07/13/22 09/01/22 gabapentin 100 mg capsule 100 mg PO BID 09/01/22 09/01/22 gabapentin 100 mg capsule 200 mg PO HS 09/01/22 09/01/22 omeprazole 20 mg tablet,delayed 40 mg PO HS 09/01/22 09/01/22 release Previous Rx's Medication Instructions Recorded clozapine 100 mg tablet 300 mg PO HS #30 tabs 04/15/21 magnesium hydroxide 400 mg/5 mL 30 ml PO Q6H PRN constipation #355 07/20/22 oral suspension (Milk of Magnesia) mL polyethylene glycol 3350 17 17 g PO DAILY PRN constipation 07/22/22 gram/dose oral powder (Miralax) #238 grams Results & Data (ED) Vital Signs Vital Signs - 24 hr 09/01/22 09:50 09/01/22 09:50 09/01/22 09:50 Temperature 37.4 C Temperature Source Temporal Artery Scan Oral Pulse Rate 70 Respiratory Rate 12 Blood Pressure 165/81 H Blood Pressure Mean 109 Pulse Oximetry 100 Oxygen Delivery Method Room Air Room Air Sepsis Recent Fever Within 48 Hours No Sepsis New/Unexplained Change in Mental Status Yes Sepsis Action Taken by Nursing No Action Required 09/01/22 09:50 09/01/22 09:54 09/01/22 09:53 Temperature Temperature Source Pulse Rate 69 Respiratory Rate Blood Pressure Blood Pressure Mean Pulse Oximetry Oxygen Delivery Method Room Air Room Air Sepsis Recent Fever Within 48 Hours Sepsis New/Unexplained Change in Mental Status Sepsis Action Taken by Nursing Laboratory Data 09/01/22 09:55 09/01/22 12:32 Lab Results 09/01/22 09/01/22 09/01/22 Range/Units 09:55 09:55 09:55 WBC 6.14 (4.8-10.8) K/ul RBC 3.62 L (4.20-5.40) M/uL Hgb 11.3 L (12.0-16.0) g/dl Hct 33.3 L (37.0-47.0) % MCV 92.0 (80.0-100.0) fL MCH 31.2 (25.0-34.0) pg MCHC 33.9 (32.0-36.0) g/dL RDW Std Deviation 43.8 (36.4-46.3) fL RDW Coeff of Cyn 13.1 (11.5-14.5) % Plt Count 179 (130-400) K/uL MPV 10.0 (9.4-12.4) fL Immature Gran % (Auto) 0.3 % Neut % (Auto) 57.2 % Lymph % (Auto) 32.6 % Fleming % (Auto) 9.4 % Eos % (Auto) 0.0 % Baso % (Auto) 0.5 % Neut # (Auto) 3.51 (1.40-6.50) K/uL Lymph # (Auto) 2.00 (1.2-3.4) K/uL Fleming # (Auto) 0.58 (0.11-0.59) K/uL Eos # (Auto) 0.00 (0-0.50) K/uL Baso # (Auto) 0.03 (0-0.2) K/uL Immature Gran # (Auto) 0.02 (0.01-0.20) K/uL Sodium 127 L (136-145) mmol/L Potassium 3.9 (3.5-5.1) mmol/L Chloride 95 L (98-107) mmol/L Carbon Dioxide 26 (21-32) mmol/L Anion Gap 6 (3-11) BUN 13 (6-23) mg/dl Creatinine 0.69 (0.6-1.2) mg/dl Est Cr Clr Drug Dosing Not Reportable Est GFR ( Amer) 100.8 ml/min Est GFR (Non-Af Amer) 87.0 ml/min BUN/Creatinine Ratio 18.8 (10-20) Glucose 115 H (70-99(Fasting)) mg/dl Calcium 8.7 (8.5-10.1) mg/dl Total Bilirubin 0.4 (0.2-1.0) mg/dl AST 15 (13-39) U/L ALT 12 (7-52) U/L Alkaline Phosphatase 76 (34-104) U/L Total Creatine Kinase 61 (26-192) U/L Troponin I High Sens 5.0 (0-14) pg/ml Total Protein 6.2 (6.0-8.3) gm/dl Albumin 4.0 (3.4-5.0) gm/dl Globulin 2.2 L (2.5-4.0) gm/dl Albumin/Globulin Ratio 1.8 (0.9-2) Lipase 18 (11-82) U/L Salicylates < 3.0 L (3.0-30) mg/dl Acetaminophen 4 L (10-30) ug/ml SARS-CoV-2, RNA, NAAT (NEGATIVE) 09/01/22 09/01/22 Range/Units 09:55 10:55 WBC (4.8-10.8) K/ul RBC (4.20-5.40) M/uL Hgb (12.0-16.0) g/dl Hct (37.0-47.0) % MCV (80.0-100.0) fL MCH (25.0-34.0) pg MCHC (32.0-36.0) g/dL RDW Std Deviation (36.4-46.3) fL RDW Coeff of Cyn (11.5-14.5) % Plt Count (130-400) K/uL MPV (9.4-12.4) fL Immature Gran % (Auto) % Neut % (Auto) % Lymph % (Auto) % Fleming % (Auto) % Eos % (Auto) % Baso % (Auto) % Neut # (Auto) (1.40-6.50) K/uL Lymph # (Auto) (1.2-3.4) K/uL Fleming # (Auto) (0.11-0.59) K/uL Eos # (Auto) (0-0.50) K/uL Baso # (Auto) (0-0.2) K/uL Immature Gran # (Auto) (0.01-0.20) K/uL Sodium (136-145) mmol/L Potassium (3.5-5.1) mmol/L Chloride (98-107) mmol/L Carbon Dioxide (21-32) mmol/L Anion Gap (3-11) BUN (6-23) mg/dl Creatinine (0.6-1.2) mg/dl Est Cr Clr Drug Dosing Est GFR ( Amer) ml/min Est GFR (Non-Af Amer) ml/min BUN/Creatinine Ratio (10-20) Glucose (70-99(Fasting)) mg/dl Calcium (8.5-10.1) mg/dl Total Bilirubin (0.2-1.0) mg/dl AST (13-39) U/L ALT (7-52) U/L Alkaline Phosphatase (34-104) U/L Total Creatine Kinase Cancelled (26-192) U/L Troponin I High Sens (0-14) pg/ml Total Protein (6.0-8.3) gm/dl Albumin (3.4-5.0) gm/dl Globulin (2.5-4.0) gm/dl Albumin/Globulin Ratio (0.9-2) Lipase (11-82) U/L Salicylates (3.0-30) mg/dl Acetaminophen (10-30) ug/ml SARS-CoV-2, RNA, NAAT NEGATIVE (NEGATIVE) Administered Medications Discontinued Medications Sodium Chloride (Nss 1000ml) 1,000 mls @ 999 mls/hr IV .Q1H1M ONE Stop: 09/01/22 11:03 Last Infusion: 09/01/22 12:01 Dose: 0 mls/hr Documented By: Admin: 09/01/22 10:50 Dose: 999 mls/hr Documented By: OL Imaging Data Radiologist's Impression: Chest X-Ray 09/01/22 09:54 XR chest 1V portable CLINICAL HISTORY: Chest pain, nonspecific TECHNIQUE: Single frontal radiograph of the chest was obtained. Comparison: Comparison is made to chest radiograph 07/13/2022 FINDINGS: No lines and tubes are seen. The cardiomediastinal silhouette is normal. The lungs are clear. No evidence of pleural effusion or pneumothorax. IMPRESSION: No acute chest disease. ACT 112: Negative or not required by law. Electronically signed by: Trevin Yeboah M.D. 09/01/2022 10:[address] 09/01/22 09:56 CT head/brain wo con CLINICAL HISTORY: ams Technique: Contiguous axial CT images of the head were acquired from the base of the skull to the vertex without intravenous contrast administration. Images were viewed in brain, subdural and bone windows. Automated dose lowering techniques and/or adjustment according to patient size were utilized for this exam. Comparison: Comparison is made to CT head 07/22/2022 Findings: Areas of decreased attenuation are present in the periventricular and subcortical white matter bilaterally consistent with small vessel ischemic disease. Generalized cerebral atrophy with commensurate enlargement of the ventricles, sulci, and cisterns is also present. There is no acute intracranial hemorrhage or evidence of acute territorial infarction. No shift of the midline structures, mass effect, or extra-axial abnormalities are shown. Atherosclerotic calcifications are present in the intracranial segments of the internal carotid arteries. Right parietal craniotomy changes are again seen. Mild left maxillary sinus disease is seen. The orbits appear normal. There are no acute fractures of the calvaria or scalp swelling. Impression: No acute intracranial hemorrhage, no evidence of acute territorial infarction or other acute intracranial disease process. ACT 112: Negative or not required by law. Electronically signed by: Trevin Yeboah M.D. 09/01/2022 10:24 AM Discharge Plan Visit Data Chief Complaint: Unresponsive ED Provider: Tex Ching Discharge Problem: Unresponsive, AMS (altered mental status), Hyponatremia Discharge Instructions Interventions: ED Discharge Assessment Last Done: 09/01/22 13:49
--- NOTE | 2022-09-01 10:13 | XRay Report ---
XR chest 1V portable CLINICAL HISTORY: Chest pain, nonspecific TECHNIQUE: Single frontal radiograph of the chest was obtained. Comparison: Comparison is made to chest radiograph 07/13/2022 FINDINGS: No lines and tubes are seen. The cardiomediastinal silhouette is normal. The lungs are clear. No evid ence of pleural effusion or pneumothorax. IMPRESSION: No acute chest disease. ACT 112: Negative or not required by law. Electronically signed by: Trevin Yeboah M.D. 09/01/2022 10:12 AM
--- NOTE | 2022-09-01 10:25 | CT Scan Report ---
CT head/brain wo con CLINICAL HISTORY: ams Technique: Contiguous axial CT images of the head were acquired from the base of the skull to the tereso kasey without intravenous contrast administration. Images were viewed in brain, subdural and bone [facility]. Automated dose lowering techniques and/or adjustment according to patient size were utilized for this exam. Comparison: Comparison is made to CT head 07/22/2022 Findings: Areas of decreased attenuation are present in the periventricular and subcortical white matter bilate rally consistent with small vessel ischemic disease. Generalized cerebral atrophy with commensurate e nlargement of the ventricles, sulci, and cisterns is also present. There is no acute intracranial hem orrhage or evidence of acute territorial infarction. No shift of the midline structures, mass effect, or extra-axial abnormalities are shown. Atherosclerotic calcifications are present in the intracran ial segments of the internal carotid arteries. Right parietal craniotomy changes are again seen. Mild left maxillary sinus disease is seen. The orbits appear normal. There are no acute fractures of the calvaria or scalp swelling. Impression: No acute intracranial hemorrhage, no evidence of acute territorial infarction or other acute intracra nial disease process. ACT 112: Negative or not required by law. Electronically signed by: Trevin Yeboah M.D. 09/01/2022 10:24 AM
[2022-09-01 10:26] LABS: Basophils # (auto) 0.03 K/uL (0-0.2); Basophils % (auto) 0.5 %; Hematocrit (blood only) 33.3 % (37.0-47.0); Hemoglobin 11.3 g/dl (12.0-16.0); Immature Granulocytes # (auto) 0.02 K/uL (0.01-0.20); Immature Granulocytes % (auto) 0.3 %; Lymphocytes % (auto) 32.6 %; Mean Corpuscular Hemoglobin 31.2 pg (25.0-34.0); Mean Corpuscular Hgb Conc 33.9 g/dL (32.0-36.0); Monocytes # (auto) 0.58 K/uL (0.11-0.59); Monocytes % (auto) 9.4 %; Neutrophils # (auto) 3.51 K/uL (1.40-6.50); Neutrophils % (auto) 57.2 %; Platelet Count 179 K/uL (130-400); RDW Coefficient of Variation 13.1 % (11.5-14.5); RDW Standard Deviation 43.8 fL (36.4-46.3); Red Blood Count 3.62 M/uL (4.20-5.40); White Blood Count 6.14 K/ul (4.8-10.8)
[2022-09-01 10:32] LABS: Alanine Aminotransferase 12 U/L (7-52); Albumin Globulin Ratio 1.8 (0.9-2); Alkaline Phosphatase 76 U/L (34-104); Anion Gap 6 (3-11); Aspartate Aminotransferase 15 U/L (13-39); BUN Creatinine Ratio 18.8 (10-20); Bilirubin,Total 0.4 mg/dl (0.2-1.0); Blood Urea Nitrogen 13 mg/dl (6-23); Calcium 8.7 mg/dl (8.5-10.1); Carbon Dioxide 26 mmol/L (21-32); Chloride 95 mmol/L (98-107); Creatine Kinase 61 U/L (26-192); Est GFR (African American) 100.8 ml/min; Globulin 2.2 gm/dl (2.5-4.0); Glucose 115 mg/dl (70-99(Fasting)); Lipase 18 U/L (11-82); Potassium 3.9 mmol/L (3.5-5.1); Sodium 127 mmol/L (136-145); Total Protein 6.2 gm/dl (6.0-8.3)
[2022-09-01 10:34] LABS: Acetaminophen 4 ug/ml (10-30); Salicylate < 3.0 mg/dl (3.0-30)
[2022-09-01 11:32] LABS: Base Excess VBG -0.7 mEq/L; HCO3 VBG 26 mmol/L; Oxygen Saturation VBG < 60.0 %; PCO2 VBG 50 mmHg (38-50); PO2 VBG 32 mmHg; pH VBG 7.32 (7.36-7.41)
--- NOTE | 2022-09-01 11:52 | Electrocardiogram Report ---
Test Reason : Blood Pressure : / mmHG Vent. Rate : 069 BPM Atrial Rate : 069 BPM P-R Int : 128 ms QRS Dur : 078 ms QT Int : 422 ms P-R-T Axes : 082 033 010 degrees QTc Int : 452 ms Normal sinus rhythm Low voltage QRS Borderline ECG When compared with ECG of 22-JUL-2022 14:44, No significant change was found Confirmed by Austin Barry ([id number]) on 09/01/2022 11:52:43 AM Referred By: ED Confirmed By:Austin Barry
[2022-09-01 12:34] LABS: Appearance Urine Clear (Clear); Bacteria Urine Automated Negative (Negative); Bilirubin Urine Negative (Negative); Blood Urine Trace (Negative); Cast Urine Automated 0 /lpf (0-5); Color Urine Dark Yellow; Epithelial Cell Urine Auto 0-5 /lpf (0-5); Glucose Urine UA Negative (Negative); Ketones Urine 1+ (Negative); Leukocyte Esterase Urine Negative (Negative); Nitrite Urine Negative (Negative); Protein Urine Negative (Negative); RBC Urine Automated 0-4 /hpf (0-4); Specific Gravity Urine 1.006 (1.000-1.030); Urobilinogen Urine Negative (Negative); WBC Urine Automated 0 /hpf (0-5)
[2022-09-01 12:49] LABS: Amphetamines+Metham, Urine Neg (Neg); Barbiturates, Urine Neg (Neg); Benzodiazepine, Urine Neg (Neg); Cocaine, Urine Neg (Neg); MDMA (Ecstacy), Urine Neg (Neg); Methadone, Urine Neg (Neg); Opiate, Urine Neg (Neg); Phencyclidine, Urine Neg (Neg)
--- NOTE | 2022-09-01 12:49 | History & Physical Report ---
Date of Service September 01, 2022 Assessment & Plan (1) Obtunded: Plan: Admit to telemetry Patient presenting from home after being found unresponsive by caregiver this morning. Please see HPI for full details. Etiology of AMS unclear at this point --no obvious signs of infection, UA unremarkable, UDS negative, head CT unremarkable. There was question of possible sumatriptan overdose however pill count appears to reflect the amount of pills patient had taken this week per the caregiver. Brain MRI, EEG Check Clozaril level Consider LP if not improving (2) Hyponatremia: Plan: Na+ 127, received 1 L NSS in ED, Na+ 132 now. Will hold on additional IVF at this time, repeat BMP this evening. Caregiver reports poor p.o. intake this week, likely contributing to hyponatremia (3) Hypertension: Plan: BP elevated but currently acceptable Holding home metoprolol and lisinopril due to reduced consciousness, resume as able (4) Neuropathy: Plan: Hold gabapentin due to AMS (5) DM2 (diabetes mellitus, type 2): Plan: Hgb A1c 6.2 05/2022 Hold metformin, monitor BSG, add NovoLog sliding scale if needed (6) Schizophrenia: Plan: Holding clozapine and Cymbalta due to AMS (7) Hypothyroidism: Plan: Unable to take p.o. levothyroxine due to AMS, if unable to resume by tomorrow, consider administering IV (8) DVT prophylaxis: Plan: SQ Lovenox I spent a total of 120 minutes coordinating, documenting, and providing care for this patient excluding time spent in the performance of separately billed services. This included personally reviewing all current laboratories and imaging studies, medication reconciliation, outpatient chart review, and discussion with specialists. History of Present Illness Chief Complaint: Unresponsive Primary Care Provider: Dr. 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 History obtained from review of outside records and from patient's caregiver over the telephone due to patient's obtunded state. Patient recently admitted to [facility] 07/14 through 07/20 for Pseudomonas UTI. Patient completed IV antibiotic therapy while admitted. Patient was discharged to [facility] and returned home about 1 month ago. Patient currently has caregivers twice a day from 9a-1p and 4p-8p. History was obtained from patient's senior systems software engineer, Sidney who has been caring for the patient for the past 7 years. She reports that the patient has been complaining of a severe headache this week. Patient does not usually complain of headaches often however usually does not take any medication. Patient took 2 doses of sumatriptan and on Sunday and of this week. Sidney also notes increasing confusion this week and decreased p.o. intake. Patient is typically incontinent of urine overnight however a couple of times this week patient had no urinary output overnight. Per Sidney, she did not receive any report from the evening caregiver of any abnormal events last night. This morning when Sidney arrived she found the patient in bed sleeping however she was unable to wake her. She was breathing. EMS was then called. Sidney reports patient was incontinent for a small amount of urine. No evidence of vomiting, tongue biting, stool incontinence. Sidney also reports that there was not anything abnormal in the home suggesting the patient had fallen overnight. Sidney states that the patient's medications are in a dispenser and it appeared that patient had taken medications as prescribed up until last night. There is a cabinet where extra pills are kept however Sidney states that this is duct taped shut with a note to remind the patient not to open it. This morning the tape was removed from the cabinet and the sumatriptan bottle was removed however no additional pills were missing from what the patient had already taken this week. Sidney states all other bottles were in usual order. In the ED, patient is hemodynamically stable however remains obtunded. Labs show Na+ 127, otherwise unremarkable. Head CT negative for acute findings. Patient was given 1 L NSS. Allergies Allergy/AdvReac Type Severity Reaction Status Date / Time Cephalosporins Allergy Intermediate Hallucinati Verified 07/22/22 16:31 ons Penicillins Allergy Intermediate Hives Verified 07/22/22 16:31 pollen extracts Allergy Intermediate seasonal Verified 07/22/22 16:31 allergy rizatriptan [From Maxalt] Allergy Unknown Unknown Verified 07/22/22 16:31 cyclobenzaprine AdvReac Intermediate neuro Verified 07/22/22 16:31 [From Flexeril] complications Home Medications Medication Instructions Recorded Confirmed Type duloxetine 60 mg capsule,delayed 60 mg PO QAM 04/14/18 09/01/22 History release (Cymbalta) levothyroxine 50 mcg tablet 50 mcg PO DAILYBB 04/14/18 09/01/22 History (Synthroid) loratadine 10 mg tablet (Claritin) 10 mg PO HS 03/25/19 09/01/22 History magnesium oxide 400 mg PO QAM 03/25/19 09/01/22 History atorvastatin 20 mg tablet 20 mg PO PM 11/22/19 09/01/22 History sumatriptan succinate 100 mg tablet 100 mg PO DAILY PRN Headache 11/22/1909/21 History clozapine 25 mg tablet 50 mg PO QAM 11/06/20 09/01/22 History metformin 500 mg tablet 500 mg PO QAM 02/24/21 09/01/22 History riboflavin (vitamin B2) 400 mg 400 mg PO QAM 02/24/21 09/01/22 History tablet clozapine 100 mg tablet 300 mg PO HS #30 tabs 04/15/21 09/01/22 Rx metoprolol succinate 50 mg 50 mg PO QAM 04/15/21 09/01/22 History tablet,extended release 24 hr cyanocobalamin (vitamin B-12) 1,000 mcg PO DAILY 05/17/21 09/01/22 History 1,000 mcg tablet (Vitamin B-12) iron,carbonyl 65 mg-vitamin C 125 1 tab PO DAILY 05/17/21 09/01/22 History mg tablet,delayed release (Vitron-C) psyllium 1 tsp PO TID PRN Constipation 05/17/21 09/01/22 History fluticasone propionate 50 2 spray intranasal DAILY 07/13/21 09/01/22 History mcg/actuation nasal spray,suspension (Flonase Allergy Relief) loperamide 2 mg capsule 2 mg PO QID PRN Diarrhea 07/13/21 09/01/22 History meclizine 25 mg tablet 25 mg PO .Q5HRS PRN DIZZY 07/13/21 09/01/22 History ondansetron 4 mg disintegrating 4 mg PO Q8H PRN Nausea 07/13/21 09/01/22 History tablet aspirin 81 mg chewable tablet 81 mg PO DAILY 05/12/22 09/01/22 History (Aspirin Childrens) acetaminophen 325 mg tablet 650 mg PO Q4 PRN pain 1-3 07/13/22 09/01/22 History docusate sodium 100 mg capsule 100 mg PO BID 07/13/22 09/01/22 History (Colace) lisinopril 20 mg tablet 20 mg PO DAILY 07/13/22 09/01/22 History magnesium hydroxide 400 mg/5 mL 30 ml PO Q6H PRN constipation #355 07/20/22 09/01/22 Rx oral suspension (Milk of Magnesia) mL polyethylene glycol 3350 17 17 g PO DAILY PRN constipation 07/22/22 09/01/22 Rx gram/dose oral powder (Miralax) #238 grams gabapentin 100 mg capsule 100 mg PO BID 09/01/22 09/01/22 History gabapentin 100 mg capsule 200 mg PO HS 09/01/22 09/01/22 History omeprazole 20 mg tablet,delayed 40 mg PO HS 09/01/22 09/01/22 History release Past Med/Surg History Medical History Anxiety COVID-19 Dehydration Dizziness DM2 (diabetes mellitus, type 2) GERD (gastroesophageal reflux disease) Well controlled with medication Headache HLD (hyperlipidemia) Hypertension Hypothyroidism Migraine Nausea Neuropathy Schizophrenia Somatization disorder Vertigo Surgical History H/O bilateral cataract extraction H/O brain surgery "abt 1969 R parietal exploration for benign lesion" H/O cystoscopy H/O foot surgery History of cataract surgery History of colonoscopy History of craniotomy 1969, [place] D/T HEADACHE---FOLLOWS W DR. MICHAEL History of tonsillectomy History of tooth extraction WISDOM TEETH S/P foot surgery, left X2 S/P foot surgery, right X2 Family History Grandmother Family history of diabetes mellitus PATERNAL Family/Other Family history of diabetes mellitus UNCLE Father Parkinson disease Mother CHF (congestive heart failure) Social History Smoking Status: Never smoker Second Hand Exposure: Yes (FATHER SMOKED); Hx Alcohol Use: No Hx Substance Use: No Preferred Language: Estonian Communication Ability: Effective Maintenance Mgr Required: No Beliefs That Will Affect Care: None marital status: Single Current Living Situation: Personal Care Facility Current Living Situation Comment: [facility] How many Children do You have: 0 Feels Safe at Home: Yes Assistive Devices: Walker Review of Systems Review of Systems: Unobtainable due to reduced consciousness Physical Exam Constitutional: WD/WN, vitals as above Obtunded Eyes: + pinpoint pupils ENMT: external ear and nose normal, oropharynx normal Respiratory: normal respiratory effort, lungs clear to auscultation Snoring at times Cardiovascular: Rate/Rhythm: regular rate and regular rhythm Vessels: normal peripheral pulses Extremities: + edema (Trace edema BLE) Gastrointestinal (Abdomen): normal bowel sounds, soft, nontender, no hepatosplenomegaly Musculoskeletal: Unable to follow commands to assess strength Skin: no rashes, warm and dry Neurologic: + obtunded Withdraws to painful stimuli Results & Data Results & Data ([facility]) Vital Signs (Past 12 Hours) Vital Signs Temp Pulse Resp BP Pulse Ox O2 Del Method 09/01/22 11:28 71 14 172/70 H 100 Room Air 09/01/22 09:53 69 09/01/22 09:54 Room Air 09/01/22 09:50 Room Air 09/01/22 09:50 Room Air 09/01/22 09:50 37.4 C 70 12 165/81 H 100 Room Air Laboratory Results Short CBC 09/01/22 Range/Units 09:55 WBC 6.14 (4.8-10.8) K/ul Hgb 11.3 L (12.0-16.0) g/dl Hct 33.3 L (37.0-47.0) % Plt Count 179 (130-400) K/uL BMP 09/01/22 09:55 Sodium 127 L Potassium 3.9 Chloride 95 L Carbon Dioxide 26 BUN 13 Creatinine 0.69 Glucose 115 H Calcium 8.7 Cardiac Enzymes 09/01/22 09/01/22 Range/Units 09:55 09:55 Total Creatine Kinase 61 Cancelled (26-192) U/L Liver Function 09/01/22 Range/Units 09:55 Total Bilirubin 0.4 (0.2-1.0) mg/dl AST 15 (13-39) U/L ALT 12 (7-52) U/L Alkaline Phosphatase 76 (34-104) U/L Albumin 4.0 (3.4-5.0) gm/dl Urine 09/01/22 Range/Units 11:51 Urine Color Dark Yellow Urine Appearance Clear (Clear) Urine pH 7.0 (4.5-7.5) Ur Specific [place] 1.006 (1.000-1.030) Urine Protein Negative (Negative) Urine Glucose (UA) Negative (Negative) Diagnostic Findings Chest X-Ray 09/01/22 09:54 XR chest 1V portable CLINICAL HISTORY: Chest pain, nonspecific TECHNIQUE: Single frontal radiograph of the chest was obtained. Comparison: Comparison is made to chest radiograph 07/13/2022 FINDINGS: No lines and tubes are seen. The cardiomediastinal silhouette is normal. The lungs are clear. No evidence of pleural effusion or pneumothorax. IMPRESSION: No acute chest disease. ACT 112: Negative or not required by law. Electronically signed by: Trevin Yeboah M.D. 09/01/2022 10:[address] 09/01/22 09:56 CT head/brain wo con CLINICAL HISTORY: ams Technique: Contiguous axial CT images of the head were acquired from the base of the skull to the vertex without intravenous contrast administration. Images were viewed in brain, subdural and bone windows. Automated dose lowering techniques and/or adjustment according to patient size were utilized for this exam. Comparison: Comparison is made to CT head 07/22/2022 Findings: Areas of decreased attenuation are present in the periventricular and subcortical white matter bilaterally consistent with small vessel ischemic disease. Generalized cerebral atrophy with commensurate enlargement of the ventricles, sulci, and cisterns is also present. There is no acute intracranial hemorrhage or evidence of acute territorial infarction. No shift of the midline structures, mass effect, or extra-axial abnormalities are shown. Atherosclerotic calcifications are present in the intracranial segments of the internal carotid arteries. Right parietal craniotomy changes are again seen. Mild left maxillary sinus disease is seen. The orbits appear normal. There are no acute fractures of the calvaria or scalp swelling. Impression: No acute intracranial hemorrhage, no evidence of acute territorial infarction or other acute intracranial disease process. ACT 112: Negative or not required by law. Electronically signed by: Trevin Yeboah M.D. 09/01/2022 10:24 AM Code Status & VTE Plan Code Status Patient is a full code as per review of prior directives. VTE Prophylaxis Plan VTE Prophylaxis will be ordered: Yes Supervising Physician Co-Signing Physician Notes Patient was seen and examined. Chart reviewed. Case discussed with ETHEL. Agree with assessment and plan as above. Low clinical suspicion for meningitis with absence of fever, leukocytosis. Patient with likely acute metabolic encephalopathy possibly from intoxication. Of note, patient does not have any known family or POA. Her listed contact is her pharmacy customer care specialist not her health care decision surrogate. Will keep investigating to see if she has a health care decision maker surrogate. She is a client of [facility] , [phone]) (3) Hypertension Hypertension type: essential hypertension Qualified Code(s): I10 - Essential (primary) hypertension
[2022-09-01 13:08] LABS: Base Excess ABG -1.1 mEq/L (-9-1.8); HCO3 ABG 24 mmol/L (19-24); Oxygen Saturation ABG 99.2 % (90-95); PCO2 ABG 38 mmHg (35-46); PO2 ABG 109 mmHg (80-95)
[2022-09-01 13:18] LABS: Allen Test Pos (Pos)
[2022-09-01 13:29] LABS: Anion Gap 7 (3-11); BUN Creatinine Ratio 21.2 (10-20); Blood Urea Nitrogen 11 mg/dl (6-23); Calcium 8.4 mg/dl (8.5-10.1); Carbon Dioxide 24 mmol/L (21-32); Chloride 101 mmol/L (98-107); Creatine Kinase 63 U/L (26-192); Est GFR (African American) 110.6 ml/min; Est GFR (Non-African American) 95.5 ml/min; Glucose 127 mg/dl (70-99(Fasting)); Potassium 3.8 mmol/L (3.5-5.1); Sodium 132 mmol/L (136-145)
[2022-09-01] MEDS: ENOXAPARIN INJ 40 MG/0.4 ML SYR SQ SCH (14:16)
[2022-09-01] MEDS ORDERED: GADOBUTROL 65ML VIAL IV ONE (16:46)
--- NOTE | 2022-09-01 17:08 | Magnetic Resonance Report ---
MR brain wo/w con HISTORY: 71 years-old Female unresponsive acutely altered bowel status COMPARISON: Head CT of same day, brain MRI 04/15/2018 TECHNIQUE: Multiplanar multisequence MRI of the brain was obtained both with and without the use of 6 .5 cc Gadavist FINDINGS: Prior right parietal craniectomy. No restricted diffusion to suggest acute or subacute infarct. Degen erative changes of the imaged cervical spine. Mildly motion degraded study. No acute intracranial hem orrhage, midline shift, abnormal extra-axial collection, hydrocephalus or intracranial mass. Involuti onal changes with mild T2/FLAIR foci throughout the white matter suggestive of chronic microvascular ischemic disease. Cerebral venous sinuses and major arterial flow voids appear patent. Prior bilateral lens repair. Unr emarkable soft tissues. Mastoid air cells are clear. Small left maxillary air-fluid level. No abnorma l enhancement. IMPRESSION: 1. No acute intracranial abnormality. No acute or subacute infarct. 2. No abnormal enhancement. 3. Chronic findings as above. ACT 112: Negative or not required by law. The above report was generated using voice recognition software. It may contain grammatical, syntax o r spelling errors. Electronically signed by: Live Mancera M.D. 09/01/2022 5:05 PM
[2022-09-01 18:52] LABS: Anion Gap 7 (3-11); BUN Creatinine Ratio 14.3 (10-20); Blood Urea Nitrogen 9 mg/dl (6-23); Calcium 8.6 mg/dl (8.5-10.1); Carbon Dioxide 25 mmol/L (21-32); Chloride 105 mmol/L (98-107); Est GFR (African American) 103.9 ml/min; Est GFR (Non-African American) 89.6 ml/min; Glucose 125 mg/dl (70-99(Fasting)); Potassium 4.1 mmol/L (3.5-5.1); Sodium 137 mmol/L (136-145)
[2022-09-01] MEDS ORDERED: INFLUENZA VACCINE HIGH DOSE PF 65+ 0.7 ML SYR IM ONE (20:00)
[2022-09-01] MEDS ORDERED: PNEUMOCOCCAL POLYSACCHARIDES 25 MCG/0.5 ML VIAL/SYR IM ONE (20:00)
[2022-09-02] MEDS ORDERED: hydrALAZINE HCL 20 MG/ML VIAL IV ONE (01:47)
[2022-09-02 06:09] LABS: Hematocrit (blood only) 34.4 % (37.0-47.0); Mean Corpuscular Hemoglobin 31.2 pg (25.0-34.0); Mean Corpuscular Hgb Conc 34.9 g/dL (32.0-36.0); Mean Corpuscular Volume 89.4 fL (80.0-100.0); Mean Platelet Volume 9.9 fL (9.4-12.4); Platelet Count 213 K/uL (130-400); RDW Coefficient of Variation 13.2 % (11.5-14.5); RDW Standard Deviation 42.7 fL (36.4-46.3); Red Blood Count 3.85 M/uL (4.20-5.40); White Blood Count 5.25 K/ul (4.8-10.8)
[2022-09-02 09:00] LABS: Anion Gap 9 (3-11); BUN Creatinine Ratio 14.8 (10-20); Blood Urea Nitrogen 8 mg/dl (6-23); Carbon Dioxide 24 mmol/L (21-32); Chloride 108 mmol/L (98-107); Est GFR (African American) 109.3 ml/min; Est GFR (Non-African American) 94.3 ml/min; Glucose 96 mg/dl (70-99(Fasting)); Potassium 3.7 mmol/L (3.5-5.1); Sodium 141 mmol/L (136-145)
[2022-09-02] MEDS: ACETAMINOPHEN 325 MG TAB PO PRN ×2 (11:16→19:42)
[2022-09-02] MEDS ORDERED: ONDANSETRON INJ 2 MG/ML 2 ML VIAL IV PRN (12:28)
--- NOTE | 2022-09-02 12:45 | Hospitalist Progress Note ---
Date of Service September 02, 2022 Assessment & Plan (1) Obtunded: Plan: No clear etiology. Her urine drug screen is unremarkable. Clozaril levels are pending. ABG also normal. I suspect it may be from polypharmacy or intolerance to sumatriptan (she had it 2 days in a row preceding her being found on the ground). Speaking with her caregiver yesterday she did NOT take more sumatriptan than was initially suspected (her pill counts were accurate) and she also has her medications in a pill dispenser. Another possibility is a post ictal state from unwitnessed seizure. Will need to speak with her caregiver for further collaboration since patient herself is a very poor historian currently. An EEG is ordered Brain MRI shows prior right parietal craniotomy which would support patient's reported history of brain surgery in her 20s. (2) Hyponatremia: Plan: Na+ 127, received 1 L NSS in ED with normalization of sodium. Hold further doses of IVF Caregiver reports poor p.o. intake this week, likely contributing to hyponatremia (3) Hypertension: Plan: BP elevated Resume home metoprolol and lisinopril (4) Neuropathy: Plan: Contineu to hold gabapentin (5) DM2 (diabetes mellitus, type 2): Plan: Hgb A1c 6.2 05/2022 Hold metformin, monitor BSG, add NovoLog sliding scale if needed (6) Schizophrenia: Plan: contineu to hold clozapine and Cymbalta (7) Hypothyroidism: Plan: resume synthroid (8) DVT prophylaxis: Plan: SQ Lovenox Headache -Consistent with her known history of migraine headaches. received tylenol this morning. Will also order zofran and toradol PRN. Admission and Anticipated Discharge Date Admission Date: September 01, 2022 Subjective Patient awake today. Can not recall anything and keeps repeating "I"m so confused" and "I've been confused since ". She reports she hasn't been feeling well recently and when asked, she states she has been experiencing a headache. Then she tried to take her medications and couldn't, then next thing she woke up in the hospital. About her headache, she reports a long standing history of headaches and stated that she had brain surgery for it in her 20s. She currently is still experiencing a headache which is described as frontal, associated with phonophobia but not photophobia and no nausea. When asked whether she has a history of seizures, she states "yes but they took me off medications". Upon further inquiry it sounds like she was on seizure medications around the time she had her brain surgery and eventually was taken off. She can not recall whether she has ever woken up on the floor. She is unclear where she lives and becomes frustrated at times because of her poor memory. When asked who she would want to make medical decisions for her if she is unable, she has designatedSidney her caregiver. Physical Exam Physical Exam: No acute distress, non toxic, appears well, poor memory and poor historian Respiratory: Breathing comfortably on room air, no wheezing/rhonchi/rales Cardiovascular: Regular rate and rhythm, no murmurs/rubs/gallops Gastrointestinal (Abdomen): soft, non tender, non distended Musculoskeletal: No edema Neurologic: AAO x 3 (knows she is in the hospital, knows it is 2022, knows her name) but poor memory recall, spontaneously moving extremities Psychiatric: Slightly anxious Results & Data Results & Data ([facility]) Vital Signs (Past 12 Hours) Vital Signs Temp Pulse Pulse Pulse Resp BP BP 09/02/22 11:50 36.7 C 82 20 148/83 H 09/02/22 08:00 67 09/02/22 07:52 37 C 78 20 193/91 H 09/02/22 03:50 36.7 C 74 16 166/73 H Pulse Ox O2 Del Method 09/02/22 11:50 100 Room Air 09/02/22 08:00 09/02/22 07:52 99 Room Air 09/02/22 03:50 99 Room Air (3) Hypertension Hypertension type: essential hypertension Qualified Code(s): I10 - Essential (primary) hypertension
[2022-09-02] MEDS: lisinopril 20 MG TAB PO SCH (13:13)
[2022-09-02] MEDS: ENOXAPARIN INJ 40 MG/0.4 ML SYR SQ SCH (14:17)
[2022-09-02] MEDS: KETOROLAC TROMETHAMINE 15 MG/ML VIAL IV PRN (16:38)
[2022-09-02] MEDS ORDERED: traMADol HCL 50 MG TABLET PO STA (19:55)
[2022-09-02] MEDS: ATORVASTATIN 20 MG TAB PO SCH (19:59)
[2022-09-02] MEDS: DOCUSATE SODIUM 100 MG CAP PO SCH (19:59)
[2022-09-02] MEDS ORDERED: traMADol HCL 50 MG TABLET PO ONE (22:06)
[2022-09-03] MEDS: LEVOTHYROXINE SODIUM 50 MCG TABLET PO SCH (06:00)
[2022-09-03 06:27] LABS: Basophils # (auto) 0.04 K/uL (0-0.2); Basophils % (auto) 0.9 %; Eosinophils # (auto) 0.01 K/uL (0-0.50); Eosinophils % (auto) 0.2 %; Hematocrit (blood only) 33.5 % (37.0-47.0); Hemoglobin 11.3 g/dl (12.0-16.0); Immature Granulocytes # (auto) 0.01 K/uL (0.01-0.20); Immature Granulocytes % (auto) 0.2 %; Lymphocytes % (auto) 39.1 %; Mean Corpuscular Hemoglobin 30.9 pg (25.0-34.0); Mean Corpuscular Hgb Conc 33.7 g/dL (32.0-36.0); Mean Corpuscular Volume 91.5 fL (80.0-100.0); Monocytes # (auto) 0.45 K/uL (0.11-0.59); Monocytes % (auto) 10.3 %; Neutrophils # (auto) 2.14 K/uL (1.40-6.50); Neutrophils % (auto) 49.3 %; Platelet Count 220 K/uL (130-400); RDW Coefficient of Variation 13.4 % (11.5-14.5); RDW Standard Deviation 44.9 fL (36.4-46.3); Red Blood Count 3.66 M/uL (4.20-5.40); White Blood Count 4.35 K/ul (4.8-10.8)
[2022-09-03 06:36] LABS: Anion Gap 5 (3-11); BUN Creatinine Ratio 21.1 (10-20); Blood Urea Nitrogen 12 mg/dl (6-23); Calcium 8.8 mg/dl (8.5-10.1); Carbon Dioxide 27 mmol/L (21-32); Chloride 106 mmol/L (98-107); Est GFR (African American) 107.3 ml/min; Est GFR (Non-African American) 92.6 ml/min; Glucose 89 mg/dl (70-99(Fasting)); Magnesium 1.9 mg/dl (1.7-2.4); Phosphorus 3.3 mg/dl (2.5-4.9); Potassium 3.7 mmol/L (3.5-5.1); Sodium 138 mmol/L (136-145)
[2022-09-03] MEDS: KETOROLAC TROMETHAMINE 15 MG/ML VIAL IV PRN (09:35)
[2022-09-03] MEDS: DOCUSATE SODIUM 100 MG CAP PO SCH ×2 (10:05→21:08)
[2022-09-03] MEDS: CYANOCOBALAMIN (B-12) 500 MCG TABLET PO SCH (10:05)
[2022-09-03] MEDS: FLUTICASONE PROPIONATE NA SPR 16 GM BTL SCH (10:05)
[2022-09-03] MEDS: lisinopril 20 MG TAB PO SCH (10:05)
[2022-09-03] MEDS: METOPROLOL SUCC 50MG EXT REL TAB PO SCH (10:05)
[2022-09-03] MEDS: ASPIRIN 81 MG ECTAB PO SCH (10:05)
--- NOTE | 2022-09-03 14:38 | Electrocardiogram Report ---
Test Reason : Blood Pressure : / mmHG Vent. Rate : 071 BPM Atrial Rate : 071 BPM P-R Int : 120 ms QRS Dur : 078 ms QT Int : 406 ms P-R-T Axes : 072 024 -09 degrees QTc Int : 441 ms Normal sinus rhythm Left atrial enlargement Borderline ECG When compared with ECG of 01-SEP-2022 09:46, No significant change Confirmed by Dimitris Cage ([id number]) on 09/03/2022 2:38:28 PM Referred By: REFERRED SELF Confirmed By:Dimitris Cage
--- NOTE | 2022-09-03 16:07 | Hospitalist Progress Note ---
Date of Service September 03, 2022 Assessment & Plan (1) Obtunded: Plan: No clear etiology. Her urine drug screen is unremarkable. Clozaril levels are pending. ABG also normal. I suspect it may be from polypharmacy or intolerance to sumatriptan (she had it 2 days in a row preceding her being found on the ground). Speaking with her caregiver she did NOT take more sumatriptan than was initially suspected (her pill counts were accurate) and she also has her medications in a pill dispenser. Another possibility is a post ictal state from unwitnessed seizure. Will need to speak with her caregiver for further collaboration since patient herself is a very poor historian currently. An EEG is ordered Brain MRI shows prior right parietal craniotomy which would support patient's reported history of brain surgery in her 20s. (2) Hyponatremia: Plan: Na+ 127, received 1 L NSS in ED with normalization of sodium. Hold further doses of IVF Caregiver reports poor p.o. intake this week, likely contributing to hyponatremia (3) Hypertension: Plan: BP better controlled, continue home metoprolol and lisinopril (4) Neuropathy: Plan: Contineu to hold gabapentin (5) DM2 (diabetes mellitus, type 2): Plan: Hgb A1c 6.2 05/2022 Hold metformin, monitor BSG, FS has been low 100s. Will continue diabetic diet (6) Schizophrenia: Plan: contineu to hold clozapine and Cymbalta (7) Hypothyroidism: Plan: conntinue synthroid (8) DVT prophylaxis: Plan: SQ Lovenox Headache -Consistent with her known history of migraine headaches. continue toradol and zofran PRN Admission and Anticipated Discharge Date Admission Date: September 01, 2022 Subjective Received toradol yesterday which improved her headache Patient still with lingering headache and some nausea Physical Exam Physical Exam: thin, frail, elderly, no acute distress Respiratory: breathing comfortably on room air, no wheezing/rhonchi Cardiovascular: regular rate and rhythm, no murmurs/rubs Gastrointestinal (Abdomen): soft, non tender, non distended Musculoskeletal: no edema Neurologic: awake, answers simple questions appropriately, poor memory, spontaneously moving extremities Results & Data Results & Data ([facility]) Vital Signs (Past 12 Hours) Vital Signs Temp Pulse Pulse Resp BP Pulse Ox O2 Del Method 09/03/22 08:00 65 09/03/22 11:50 37.2 C 71 18 145/76 H 100 Room Air 09/03/22 08:13 37.1 C 68 18 168/80 H 100 Room Air 09/03/22 04:17 36.9 C 70 18 158/72 H 99 Room Air (3) Hypertension Hypertension type: essential hypertension Qualified Code(s): I10 - Essential (primary) hypertension
[2022-09-03] MEDS: ENOXAPARIN INJ 40 MG/0.4 ML SYR SQ SCH (16:51)
[2022-09-03] MEDS: ATORVASTATIN 20 MG TAB PO SCH (21:08)
[2022-09-04] MEDS ORDERED: hydrALAZINE HCL 20 MG/ML VIAL IV ONE (04:26)
[2022-09-04] MEDS: LEVOTHYROXINE SODIUM 50 MCG TABLET PO SCH (05:23)
[2022-09-04] MEDS: CYANOCOBALAMIN (B-12) 500 MCG TABLET PO SCH (08:16)
[2022-09-04] MEDS: DOCUSATE SODIUM 100 MG CAP PO SCH ×2 (08:17→19:59)
[2022-09-04] MEDS: METOPROLOL SUCC 50MG EXT REL TAB PO SCH (08:17)
[2022-09-04] MEDS: ACETAMINOPHEN 325 MG TAB PO PRN (08:17)
[2022-09-04] MEDS: ASPIRIN 81 MG ECTAB PO SCH (08:17)
[2022-09-04] MEDS: lisinopril 20 MG TAB PO SCH (08:17)
[2022-09-04] MEDS: FLUTICASONE PROPIONATE NA SPR 16 GM BTL SCH (08:18)
--- NOTE | 2022-09-04 11:09 | Electroencephalogram ---
EEG Procedure Note Date of Service September 04, 2022 Start / End Times Start Time: 548 End Time: 608 Referring Physician Renae HERNANDES History 71-year-old with unresponsive state now at the time of the recording awake and responsive. Home Medication List Medication Instructions Recorded Confirmed Type duloxetine 60 mg capsule,delayed 60 mg PO QAM 04/14/18 09/01/22 History release (Cymbalta) levothyroxine 50 mcg tablet 50 mcg PO DAILYBB 04/14/18 09/01/22 History (Synthroid) loratadine 10 mg tablet (Claritin) 10 mg PO HS 03/25/19 09/01/22 History magnesium oxide 400 mg PO QAM 03/25/19 09/01/22 History atorvastatin 20 mg tablet 20 mg PO PM 11/22/19 09/01/22 History sumatriptan succinate 100 mg tablet 100 mg PO DAILY PRN Headache 11/22/19 09/01/22 History clozapine 25 mg tablet 50 mg PO QAM 11/06/20 09/01/22 History metformin 500 mg tablet 500 mg PO QAM 02/24/21 09/01/22 History riboflavin (vitamin B2) 400 mg 400 mg PO QAM 02/24/21 09/01/22 History tablet clozapine 100 mg tablet 300 mg PO HS #30 tabs 04/15/21 09/01/22 Rx metoprolol succinate 50 mg 50 mg PO QAM 04/15/21 09/01/22 History tablet,extended release 24 hr cyanocobalamin (vitamin B-12) 1,000 mcg PO DAILY 05/17/21 09/01/22 History 1,000 mcg tablet (Vitamin B-12) iron,carbonyl 65 mg-vitamin C 125 1 tab PO DAILY 05/17/21 09/01/22 History mg tablet,delayed release (Vitron-C) psyllium 1 tsp PO TID PRN Constipation 05/17/21 09/01/22 History fluticasone propionate 50 2 spray intranasal DAILY 07/13/21 09/01/22 History mcg/actuation nasal spray,suspension (Flonase Allergy Relief) loperamide 2 mg capsule 2 mg PO QID PRN Diarrhea 07/13/21 09/01/22 History meclizine 25 mg tablet 25 mg PO .Q5HRS PRN DIZZY 07/13/21 09/01/22 History ondansetron 4 mg disintegrating 4 mg PO Q8H PRN Nausea 07/13/21 09/01/22 History tablet aspirin 81 mg chewable tablet 81 mg PO DAILY 05/12/22 09/01/22 History (Aspirin Childrens) acetaminophen 325 mg tablet 650 mg PO Q4 PRN pain 1-3 07/13/22 09/01/22 History docusate sodium 100 mg capsule 100 mg PO BID 07/13/22 09/01/22 History (Colace) lisinopril 20 mg tablet 20 mg PO DAILY 07/13/22 09/01/22 History magnesium hydroxide 400 mg/5 mL 30 ml PO Q6H PRN constipation #355 07/20/22 09/01/22 Rx oral suspension (Milk of Magnesia) mL polyethylene glycol 3350 17 17 g PO DAILY PRN constipation 07/22/22 09/01/22 Rx gram/dose oral powder (Miralax) #238 grams gabapentin 100 mg capsule 100 mg PO BID 09/01/22 09/01/22 History gabapentin 100 mg capsule 200 mg PO HS 09/01/22 09/01/22 History omeprazole 20 mg tablet,delayed 40 mg PO HS 09/01/22 09/01/22 History release Inpatient Medication List Acetaminophen (Acetaminophen 325 Mg Tab) 650 mg PO Q4H PRN PRN Reason: Pain or Fever Stop: 10/01/22 14:07 Last Admin: 09/04/22 08:17 Dose: 650 mg Documented By: Admin: 09/02/22 19:42 Dose: 650 mg Documented By: Admin: 09/02/22 11:16 Dose: 650 mg Documented By: NEWTON Aspirin (Aspirin 81 Mg Ectab) 81 mg PO [facility] Stop: 10/03/22 08:59 Last Admin: 09/04/22 08:17 Dose: 81 mg Documented By: Admin: 09/03/22 10:05 Dose: 81 mg Documented By: NEWTON Atorvastatin Calcium (Atorvastatin 20 Mg Tab) 20 mg PO [facility] Stop: 10/02/22 20:59 Last Admin: 09/03/22 21:08 Dose: 20 mg Documented By: Admin: 09/02/22 19:59 Dose: 20 mg Documented By: FABRIZIO Cyanocobalamin (Cyanocobalamin (B-12) 500 Mcg Tablet) 1,000 mcg PO [facility] Stop: 10/03/22 08:59 Last Admin: 09/04/22 08:16 Dose: 1,000 mcg Documented By: Admin: 09/03/22 10:05 Dose: 1,000 mcg Documented By: NEWTON Docusate Sodium (Docusate Sodium 100 Mg Cap) 100 mg PO BID [facility] Stop: 10/02/22 20:59 Last Admin: 09/04/22 08:17 Dose: 100 mg Documented By: Admin: 09/03/22 21:08 Dose: 100 mg Documented By: Admin: 09/03/22 10:05 Dose: 100 mg Documented By: Admin: 09/02/22 19:59 Dose: 100 mg Documented By: FABRIZIO Enoxaparin Sodium (Enoxaparin Inj 40 Mg/0.4 Ml Syr) 40 mg SQ Q24H JAMEL Stop: 10/01/22 14:07 Last Admin: 09/03/22 16:51 Dose: 40 mg Documented By: Admin: 09/02/22 14:17 Dose: 40 mg Documented By: Admin: 09/01/22 14:16 Dose: 40 mg Documented By: SOURAV Fluticasone Propionate (Fluticasone Propionate Na Spr 16 Gm Btl) 2 sprays NA DAILY J[facility] Stop: 10/03/22 08:59 Last Admin: 09/04/22 08:18 Dose: 2 sprays Documented By: Admin: 09/03/22 10:05 Dose: 2 sprays Documented By: NEWTON Ketorolac Tromethamine (Ketorolac Tromethamine 15 Mg/Ml Vial) 15 mg IV Q6H PRN PRN Reason: Pain Stop: 09/07/22 12:27 Last Admin: 09/03/22 09:35 Dose: 15 mg Documented By: Admin: 09/02/22 16:38 Dose: 15 mg Documented By: NEWTON Levothyroxine Sodium (Levothyroxine Sodium 50 Mcg Tablet) 50 mcg PO DAILYBB JAMLE Stop: 10/03/22 06:29 Last Admin: 09/04/22 05:23 Dose: 50 mcg Documented By: Admin: 09/03/22 06:00 Dose: 50 mcg Documented By: FABRIZIO Lisinopril (Lisinopril 20 Mg Tab) 20 mg PO QAM [facility] Stop: 10/02/22 12:44 Last Admin: 09/04/22 08:17 Dose: 20 mg Documented By: Admin: 09/03/22 10:05 Dose: 20 mg Documented By: Admin: 09/02/22 13:13 Dose: 20 mg Documented By: NEWTON Metoprolol Succinate (Metoprolol Succ 50mg Ext Rel Tab) 50 mg PO QAM [facility] Stop: 10/03/22 08:59 Last Admin: 09/04/22 08:17 Dose: 50 mg Documented By: Admin: 09/03/22 10:05 Dose: 50 mg Documented By: NEWTON Ondansetron HCl (Ondansetron Inj 2 Mg/Ml 2 Ml Vial) 4 mg IV Q6H PRN PRN Reason: Nausea And Vomiting Stop: 10/02/22 12:27 Last Admin: 09/03/22 09:27 Dose: 4 mg Documented By: NEWTON Discontinued Medications Gadobutrol (Gadobutrol 65ml Vial) 6 ml IV ONCE ONE Stop: 09/01/22 16:47 Last Admin: 09/01/22 16:47 Dose: 6 ml Documented By: CHRISS Hydralazine HCl (Hydralazine Hcl 20 Mg/Ml Vial) 5 mg IV NOW ONE Stop: 09/02/22 01:48 Last Admin: 09/02/22 02:31 Dose: 5 mg Documented By: FABRIZIO Hydralazine HCl (Hydralazine Hcl 20 Mg/Ml Vial) 5 mg IV NOW ONE Stop: 09/04/22 04:27 Last Admin: 09/04/22 04:31 Dose: 5 mg Documented By: CHANDAN Sodium Chloride (Nss 1000ml) 1,000 mls @ 999 mls/hr IV .Q1H1M ONE Stop: 09/01/22 11:03 Last Infusion: 09/01/22 12:01 Dose: 0 mls/hr Documented By: Admin: 09/01/22 10:50 Dose: 999 mls/hr Documented By: ARTEMIO Tramadol HCl (Tramadol Hcl 50 Mg Tablet) 25 mg PO NOW STA Stop: 09/02/22 19:56 Last Admin: 09/02/22 22:24 Dose: Not Given Documented By: FABRIZIO Tramadol HCl (Tramadol Hcl 50 Mg Tablet) 25 mg PO NOW ONE Stop: 09/02/22 22:07 Last Admin: 09/02/22 22:15 Dose: 25 mg Documented By: FABRIZIO Description This is a 21 electrode EEG with a single channel dedicated to limited EKG. The electrodes were placed in accordance with the International 10-20 system. Interpretation The predominant background activity consists of a somewhat irregular 8 Hz activity, of up to 50 mV in amplitude,seen symmetrically distributed over the posterior head regions bilaterally , spreading anteriorly. This activity had little attenuation with eye-opening and other alerting procedures. Photic stimulation was performed and elicited no change in the background activity and no abnormal responses were seen. Hyperventilation was not performed. A mild amount of muscle and movement artifact activity contaminated the recording, yet did not hinder interpretation to any significant degree. Throughout the recording, no focal abnormalities or potentially epileptogenic discharges were seen. is there was some irregular low to medium amplitude 6 hertz activity admixed with the background activity in general from time to time which may have been some drowsiness or some very mild generalized slowing. The patient did not enter into deeper stages of sleep. In summary, this EEG was essentially normal during wakefulness and brief periods of drowsiness. No focal abnormalities or potentially epileptogenic discharges were Cseen. Clinical Correlation The abscence of potentially epileptogenic activity does not exclude a seizure disorder, since interictally, EEGs can be normal. Clinical correlation is required. [facility] EEG Procedure Codes Indication for Procedure (1) Unresponsive: (2) Acute metabolic encephalopathy: Neurology Neurology: 22519 EEG include record awake & drowsy
[2022-09-04] MEDS: KETOROLAC TROMETHAMINE 15 MG/ML VIAL IV PRN (11:36)
[2022-09-04] MEDS: cloZAPine 25 MG TAB PO SCH (11:37)
[2022-09-04] MEDS: DULoxetine HCL 60 MG CAP PO SCH (11:37)
[2022-09-04] MEDS: GABAPENTIN 100 MG CAP PO SCH ×2 (11:37→19:59)
[2022-09-04] MEDS: ENOXAPARIN INJ 40 MG/0.4 ML SYR SQ SCH (16:47)
--- NOTE | 2022-09-04 17:13 | Hospitalist Progress Note ---
Date of Service September 04, 2022 Assessment & Plan (1) Obtunded: Plan: No clear etiology. Her urine drug screen is unremarkable. Clozaril levels are pending. ABG also normal. I suspect it may be from polypharmacy or intolerance to sumatriptan (she had it 2 days in a row preceding her being found on the ground). Speaking with her caregiver she did NOT take more sumatriptan than was initially suspected (her pill counts were accurate) and she also has her medications in a pill dispenser. Another possibility is a post ictal state from unwitnessed seizure. Will need to speak with her caregiver for further collaboration since patient herself is a very poor historian currently. An EEG here is negative for epileptiform activity Brain MRI shows prior right parietal craniotomy which would support patient's reported history of brain surgery in her 20s. (2) Hyponatremia: Plan: Na+ 127, received 1 L NSS in ED with normalization of sodium. Hold further doses of IVF Caregiver reports poor p.o. intake this week, likely contributing to hyponatremia (3) Hypertension: Plan: BP better controlled, continue home metoprolol and lisinopril. May need uptitration of lisinopril (4) Neuropathy: Plan: Contineu to hold gabapentin (5) DM2 (diabetes mellitus, type 2): Plan: Hgb A1c 6.2 05/2022 Hold metformin, monitor BSG, FS has been low 100s. Will continue diabetic diet (6) Schizophrenia: Plan: will restart cymbalta and morning clozaril dose. Will monitor reponse and restart evening clozaril at lower dose. Tried calling [facility] today and couldn't reach her, will try again tomorrow (7) Hypothyroidism: Plan: conntinue synthroid (8) DVT prophylaxis: Plan: SQ Lovenox Plan Headache -Consistent with her known history of migraine headaches. continue toradol and zofran PRN Disposition -Patient with no family, lives alone. She has poor memory and is not safe to live alone. PT recommends 24 hour supervision or [facility]. This was relayed to CM. I expect she will be medically stable (pending better BP control and resuming of her psychotropic medications) in 48 hours. Admission and Anticipated Discharge Date Admission Date: September 01, 2022 Subjective Patient with very poor memory, cant remember if she ate breakfast. Evaluated by PT and recommending 24 hour care or [facility]. Reports she still has a trace of a headache but it isn't bad Physical Exam Physical Exam: Sitting in bed, no acute distress, calm, very forgetful Respiratory: Breathing comfortably on room air, no wheezing/rhonchi Cardiovascular: Regular rate and rhythm, no murmurs/rubs Gastrointestinal (Abdomen): soft, non tender Musculoskeletal: No edema Neurologic: very forgetful, able to answer simple questions that pertains to the present but very poor short and skilled nursing memory recall Psychiatric: calm Results & Data Results & Data ([facility]) Vital Signs (Past 12 Hours) Vital Signs Temp Pulse Pulse Resp BP Pulse Ox O2 Del Method 09/04/22 16:05 36.9 C 52 L 18 151/75 H 99 Room Air 09/04/22 10:52 37.1 C 54 L 20 144/78 H 100 Room Air 09/04/22 07:35 36.6 C 68 14 178/76 H 99 Room Air (3) Hypertension Hypertension type: essential hypertension Qualified Code(s): I10 - Essential (primary) hypertension
[2022-09-04] MEDS ORDERED: lisinopril 10 MG TAB PO ONE (17:19)
[2022-09-04] MEDS: ATORVASTATIN 20 MG TAB PO SCH (19:59)
[2022-09-05] MEDS: LEVOTHYROXINE SODIUM 50 MCG TABLET PO SCH (06:37)
[2022-09-05] MEDS: DULoxetine HCL 60 MG CAP PO SCH (10:08)
[2022-09-05] MEDS: lisinopril 10 MG TAB PO SCH (10:08)
[2022-09-05] MEDS: DOCUSATE SODIUM 100 MG CAP PO SCH ×2 (10:08→20:32)
[2022-09-05] MEDS: cloZAPine 25 MG TAB PO SCH ×2 (10:08→20:32)
[2022-09-05] MEDS: GABAPENTIN 100 MG CAP PO SCH ×2 (10:08→20:32)
[2022-09-05] MEDS: ASPIRIN 81 MG ECTAB PO SCH (10:09)
[2022-09-05] MEDS: FLUTICASONE PROPIONATE NA SPR 16 GM BTL SCH (10:09)
[2022-09-05] MEDS: CYANOCOBALAMIN (B-12) 500 MCG TABLET PO SCH (10:09)
[2022-09-05] MEDS: METOPROLOL SUCC 50MG EXT REL TAB PO SCH (10:09)
[2022-09-05] MEDS: ACETAMINOPHEN 325 MG TAB PO PRN ×2 (10:11→19:35)
[2022-09-05] MEDS: ENOXAPARIN INJ 40 MG/0.4 ML SYR SQ SCH (14:27)
--- NOTE | 2022-09-05 15:41 | Hospitalist Progress Note ---
Date of Service September 05, 2022 Assessment & Plan (1) Obtunded: Plan: No clear etiology. Her urine drug screen is unremarkable. Clozaril levels are pending. ABG also normal. I suspect it may be from polypharmacy or intolerance to sumatriptan (she had it 2 days in a row preceding her being found on the ground). Speaking with her caregiver she did NOT take more sumatriptan than was initially suspected (her pill counts were accurate) and she also has her medications in a pill dispenser. Another possibility is a post ictal state from unwitnessed seizure. No further episodes while here An EEG here is negative for epileptiform activity Brain MRI shows prior right parietal craniotomy which would support patient's reported history of brain surgery in her 20s. (2) Hyponatremia: Plan: Na+ 127, received 1 L NSS in ED with normalization of sodium. Hold further doses of IVF Caregiver reports poor p.o. intake this week, likely contributing to hyponatremia (3) Hypertension: Plan: on home metoprolol and lisinopril. Lisinopril increased to 30mg daily with improvement in BP (4) Neuropathy: Plan: Contineu to hold gabapentin (5) DM2 (diabetes mellitus, type 2): Plan: Hgb A1c 6.2 05/2022 Hold metformin, monitor BSG, FS has been low 100s. Will continue diabetic diet (6) Schizophrenia: Plan: Cymbalta 60mg and clozaril 50mg daily restarted 09/04 which she is tolerating well. Attempted to call [facility] yesterday to verify whether patient also takes Clozaril 300mg QHS but couldn't reach her yesterday or today. For now, will also restart clozaril 50mg QHS. If verified with [facility] that previously she was also on Clozaril 300mg QHS, will need to slowly uptitrate back to that dose (she has been off it at least for 4 days now) Monitor on telemetry while these medications are being restarted (7) Hypothyroidism: Plan: continue synthroid TSH ordered for tomorrow (8) DVT prophylaxis: Plan: SQ Lovenox Plan Headache -Consistent with her known history of migraine headaches. continue toradol and zofran PRN Disposition -Patient with no family, lives alone. She has poor memory and is not safe to live alone. PT recommends 24 hour supervision or [facility]. This was relayed to CM. I expect she will be medically stable (pending better BP control and resuming of her psychotropic medications) in 48 hours. Admission and Anticipated Discharge Date Admission Date: September 01, 2022 Subjective No issues overnight. Patient feels well, no new complaints. Tolerated Duloxetine and clozaril restart yesterday Physical Exam Physical Exam: No acute distress, non toxic Respiratory: Breathing comfortably, no wheezing/rhonchi/rales Cardiovascular: Regular rate and rhythm, no murmurs/rubs/gallops Gastrointestinal (Abdomen): Soft, non tender Musculoskeletal: No edema Neurologic: Awake, alert, spontaneously moving extremities, forgetful Results & Data Results & Data ([facility]) Vital Signs (Past 12 Hours) Vital Signs Temp Pulse Pulse Resp BP Pulse Ox O2 Del Method 09/05/22 11:27 56 L 09/05/22 11:24 36.9 C 51 L 16 146/78 H 98 Room Air 09/05/22 07:52 36.5 C 54 L 16 188/77 H 98 Room Air (3) Hypertension Hypertension type: essential hypertension Qualified Code(s): I10 - Essential (primary) hypertension
[2022-09-05] MEDS: KETOROLAC TROMETHAMINE 15 MG/ML VIAL IV PRN (19:35)
[2022-09-05] MEDS: ATORVASTATIN 20 MG TAB PO SCH (20:32)
[2022-09-06] MEDS: LEVOTHYROXINE SODIUM 50 MCG TABLET PO SCH (06:03)
[2022-09-06 08:27] LABS: Clozapine 1266 mcg/L; Norclozapine 544 mcg/L (25-400)
[2022-09-06] MEDS: METOPROLOL SUCC 50MG EXT REL TAB PO SCH (08:39)
[2022-09-06] MEDS: ASPIRIN 81 MG ECTAB PO SCH (08:39)
[2022-09-06] MEDS: CYANOCOBALAMIN (B-12) 500 MCG TABLET PO SCH (08:39)
[2022-09-06] MEDS: lisinopril 10 MG TAB PO SCH (08:39)
[2022-09-06] MEDS: GABAPENTIN 100 MG CAP PO SCH ×2 (08:39→20:38)
[2022-09-06] MEDS: DOCUSATE SODIUM 100 MG CAP PO SCH ×2 (08:39→20:37)
[2022-09-06] MEDS: DULoxetine HCL 60 MG CAP PO SCH (08:39)
[2022-09-06] MEDS: FLUTICASONE PROPIONATE NA SPR 16 GM BTL SCH (08:40)
[2022-09-06] MEDS: ACETAMINOPHEN 325 MG TAB PO PRN ×2 (08:41→20:33)
[2022-09-06] MEDS: cloZAPine 25 MG TAB PO SCH ×2 (10:39→20:36)
[2022-09-06] MEDS: ENOXAPARIN INJ 40 MG/0.4 ML SYR SQ SCH (15:29)
--- NOTE | 2022-09-06 18:08 | Hospitalist Progress Note ---
Date of Service September 06, 2022 Assessment & Plan (1) Obtunded: Plan: No clear etiology. Her urine drug screen is unremarkable. Clozaril levels are pending. ABG also normal. I suspect it may be from polypharmacy or intolerance to sumatriptan (she had it 2 days in a row preceding her being found on the ground). Speaking with her caregiver she did NOT take more sumatriptan than was initially suspected (her pill counts were accurate) and she also has her medications in a pill dispenser. Another possibility is a post ictal state from unwitnessed seizure. No further episodes while here An EEG here is negative for epileptiform activity Brain MRI shows prior right parietal craniotomy which would support patient's reported history of brain surgery in her 20s. (2) Hyponatremia: Plan: Na+ 127, received 1 L NSS in ED with normalization of sodium. Hold further doses of IVF Caregiver reports poor p.o. intake this week, likely contributing to hyponatremia resolved (3) Hypertension: Plan: on home metoprolol and lisinopril. Lisinopril increased to 30mg daily with improvement in BP (4) Neuropathy: Plan: Contineu to hold gabapentin (5) DM2 (diabetes mellitus, type 2): Plan: Hgb A1c 6.2 05/2022 Hold metformin, monitor BSG, FS has been low 100s. Will continue diabetic diet (6) Schizophrenia: Plan: Cymbalta 60mg and clozaril 50mg daily restarted 09/04 which she is tolerating well. Attempted to call [facility] yesterday to verify whether patient also takes Clozaril 300mg QHS but couldn't reach her yesterday or today. For now, will also restart clozaril 50mg QHS. If verified with [facility] that previously she was also on Clozaril 300mg QHS, will need to slowly uptitrate back to that dose (she has been off it at least for 4 days now) Monitor on telemetry while these medications are being restarted (7) Hypothyroidism: Plan: TSH WNL continue synthroid (8) DVT prophylaxis: Plan: SQ Lovenox Plan Headache -Consistent with her known history of migraine headaches. continue toradol and zofran PRN Disposition Waiting for placement to [facility] Admission and Anticipated Discharge Date Admission Date: September 01, 2022 Subjective Patient was seen and evaluated for follow-up Sitting in chair with no acute distress watching TV Patient said that she feels a lot better Today she said she had chest pain that she attributed with heartburn that resolved now Denies any chest pain, palpitation, dizziness, shortness of breath. Review of Systems Review of Systems: All systems reviewed & are unremarkable except as noted in Subjective Physical Exam Physical Exam: General- No acute distress Head- atraumatic Eyes- PERRL, EOMI, ENT- oropharynx clear Neck- supple, no JVD Lungs- clear to auscultation Heart- regular rhythm; no murmur Abdomen- normal bowel sounds, soft, nontender Extremities- no calf tenderness Neuro- alert, oriented x 3; PERRL, EOMI; no facial palsy; no dysarthria Skin- warm & dry Results & Data Results & Data ([facility]) Vital Signs (Past 12 Hours) Vital Signs Temp Pulse Resp BP BP Pulse Ox O2 Del Method 09/06/22 15:17 37 C 51 L 20 94/56 L 99 Room Air 09/06/22 11:19 36.9 C 49 L 18 130/65 97 Room Air 09/06/22 07:06 36.5 C 50 L 16 150/76 H 99 (3) Hypertension Hypertension type: essential hypertension Qualified Code(s): I10 - Essential (primary) hypertension
[2022-09-06] MEDS: KETOROLAC TROMETHAMINE 15 MG/ML VIAL IV PRN (20:34)
[2022-09-06] MEDS: ATORVASTATIN 20 MG TAB PO SCH (20:37)
[2022-09-07] MEDS ORDERED: cloZAPine 25 MG TAB PO SCH
--- NOTE | 2022-09-07 06:22 | Electrocardiogram Report ---
Test Reason : Blood Pressure : / mmHG Vent. Rate : 050 BPM Atrial Rate : 050 BPM P-R Int : 090 ms QRS Dur : 076 ms QT Int : 454 ms P-R-T Axes : 053 028 026 degrees QTc Int : 413 ms Sinus bradycardia with short CT Possible Anterior infarct (cited on or before 06-SEP-2022) Abnormal ECG When compared with ECG of 02-SEP-2022 20:09, T wave amplitude has increased in Lateral leads Confirmed by Kin Hicks ([id number]) on 09/07/2022 6:21:59 AM Referred By: REFERRED SELF Confirmed By:Kin Hicks
[2022-09-07] MEDS: LEVOTHYROXINE SODIUM 50 MCG TABLET PO SCH (06:35)
[2022-09-07] MEDS: GABAPENTIN 100 MG CAP PO SCH (09:04)
[2022-09-07] MEDS: cloZAPine 25 MG TAB PO SCH (09:04)
[2022-09-07] MEDS: CYANOCOBALAMIN (B-12) 500 MCG TABLET PO SCH (09:04)
[2022-09-07] MEDS: ASPIRIN 81 MG ECTAB PO SCH (09:04)
[2022-09-07] MEDS: METOPROLOL SUCC 50MG EXT REL TAB PO SCH (09:05)
[2022-09-07] MEDS: DULoxetine HCL 60 MG CAP PO SCH (09:05)
[2022-09-07] MEDS: FLUTICASONE PROPIONATE NA SPR 16 GM BTL SCH (09:05)
[2022-09-07] MEDS: DOCUSATE SODIUM 100 MG CAP PO SCH (09:05)
[2022-09-07] MEDS: lisinopril 10 MG TAB PO SCH (09:05)
[2022-09-07] MEDS: ENOXAPARIN INJ 40 MG/0.4 ML SYR SQ SCH (14:04)
--- NOTE | 2022-09-07 14:15 | Discharge Summary ---
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 History obtained from review of outside records and from patient's caregiver over the telephone due to patient's obtunded state. Patient recently admitted to [facility] 07/14 through 07/20 for Pseudomonas UTI. Patient completed IV antibiotic therapy while admitted. Patient was discharged to [facility] and returned home about 1 month ago. Patient currently has caregivers twice a day from 9a-1p and 4p-8p. History was obtained from patient's benzol operator, Sidney who has been caring for the patient for the past 7 years. She reports that the patient has been complaining of a severe headache this week. Patient does not usually complain of headaches often however usually does not take any medication. Kayleigh mar took 2 doses of sumatriptan and on Sunday and of this week. Sidney also notes increasing confusion this week and decreased p.o. intake. Patient is typically incontinent of urine overnight however a couple of times this week patient had no urinary output overnight. Per Sidney, she did not receive any report from the evening caregiver of any abnormal events last night. This morning when Sidney arrived she found the patient in bed sleeping however she was unable to wake her. She was breathing. EMS was then called. Sidney reports patient was incontinent for a small amount of urine. No evidence of vomiting, tongue biting, stool incontinence. Sidney also reports that there was not anything abnormal in the home suggesting the patient had fallen overnight. Sidney states that the patient's medications are in a dispenser and it appeared that patient had taken medications as prescribed up until last night. There is a cabinet where extra pills are kept however Sidney states that this is duct taped shut with a note to remind the patient not to open it. This morning the tape was removed from the cabinet and the sumatriptan bottle was removed however no additional pills were missing from what the patient had already taken this week. Sidney states all other bottles were in usual order. In the ED, patient is hemodynamically stable however remains obtunded. Labs show Na+ 127, otherwise unremarkable. Head CT negative for acute findings. Patient was given 1 L NSS. Admission Exam Per Admitting Provider Constitutional: WD/WN, vitals as above Obtunded Eyes: + pinpoint pupils ENMT: external ear and nose normal, oropharynx normal Respiratory: normal respiratory effort, lungs clear to auscultation Snoring at times Cardiovascular: Rate/Rhythm: regular rate and regular rhythm Vessels: normal peripheral pulses Extremities: + edema (Trace edema BLE) Gastrointestinal (Abdomen): normal bowel sounds, soft, nontender, no hepatosplenomegaly Musculoskeletal: Unable to follow commands to assess strength Skin: no rashes, warm and dry Neurologic: + obtundedWithdraws to painful stimuli Principal Diagnosis Obtunded: Hyponatremia: Hypertension: Neuropathy: DM2 (diabetes mellitus, type 2): Schizophrenia: Hypothyroidism: Discharge Exam General- No acute distress Head- atraumatic Eyes- PERRL, EOMI, ENT- oropharynx clear Neck- supple, no JVD Lungs- clear to auscultation Heart- regular rhythm; no murmur Abdomen- normal bowel sounds, soft, nontender Extremities- no calf tenderness Neuro- alert, oriented x 3; PERRL, EOMI; no facial palsy; no dysarthria Skin- warm & dry Discharge Data Allergies Allergy/AdvReac Type Severity Reaction Status Date / Time Cephalosporins Allergy Intermediate Hallucinati Verified 07/22/22 16:31 ons Penicillins Allergy Intermediate Hives Verified 07/22/22 16:31 pollen extracts Allergy Intermediate seasonal Verified 07/22/22 16:31 allergy rizatriptan [From Maxalt] Allergy Unknown Unknown Verified 07/22/22 16:31 cyclobenzaprine AdvReac Intermediate neuro Verified 07/22/22 16:31 [From Flexeril] complications Consultations 09/01/22 11:03 ED Decision to Admit Stat Ordered Studies 09/01/22 09:56 CT head/brain wo con Stat 09/01/22 12:59 MRI Brain [MR brain wo/w con] Stat Laboratory Results WBC 4.35 K/ul (4.8-10.8) L 09/03/22 05:46 RBC 3.66 M/uL (4.20-5.40) L 09/03/22 05:46 Hgb 11.3 g/dl (12.0-16.0) L 09/03/22 05:46 Hct 33.5 % (37.0-47.0) L 09/03/22 05:46 MCV 91.5 fL (80.0-100.0) 09/03/22 05:46 MCH 30.9 pg (25.0-34.0) 09/03/22 05:46 MCHC 33.7 g/dL (32.0-36.0) 09/03/22 05:46 RDW Std Deviation 44.9 fL (36.4-46.3) 09/03/22 05:46 RDW Coeff of Cyn 13.4 % (11.5-14.5) 09/03/22 05:46 Plt Count 220 K/uL (130-400) 09/03/22 05:46 MPV 10.0 fL (9.4-12.4) 09/03/22 05:46 Immature Gran % (Auto) 0.2 % 09/03/22 05:46 Neut % (Auto) 49.3 % 09/03/22 05:46 Lymph % (Auto) 39.1 % 09/03/22 05:46 Wright % (Auto) 10.3 % 09/03/22 05:46 Eos % (Auto) 0.2 % 09/03/22 05:46 Baso % (Auto) 0.9 % 09/03/22 05:46 Neut # (Auto) 2.14 K/uL (1.40-6.50) 09/03/22 05:46 Lymph # (Auto) 1.70 K/uL (1.2-3.4) 09/03/22 05:46 Wright # (Auto) 0.45 K/uL (0.11-0.59) 09/03/22 05:46 Eos # (Auto) 0.01 K/uL (0-0.50) 09/03/22 05:46 Baso # (Auto) 0.04 K/uL (0-0.2) 09/03/22 05:46 Immature Gran # (Auto) 0.01 K/uL (0.01-0.20) 09/03/22 05:46 ABG pH 7.40 (7.35-7.45) 09/01/22 12:32 ABG pCO2 38 mmHg (35-46) 09/01/22 12:32 ABG pO2 109 mmHg (80-95) H 09/01/22 12:32 ABG HCO3 24 mmol/L (19-24) 09/01/22 12:32 ABG O2 Saturation 99.2 % (90-95) H 09/01/22 12:32 ABG Base Excess -1.1 mEq/L (-9-1.8) 09/01/22 12:32 Jonas Test Pos (Pos) 09/01/22 12:32 VBG pH 7.32 (7.36-7.41) L 09/01/22 11:15 VBG pCO2 50 mmHg (38-50) 09/01/22 11:15 VBG pO2 32 mmHg 09/01/22 11:15 VBG HCO3 26 mmol/L 09/01/22 11:15 VBG O2 Saturation < 60.0 % 09/01/22 11:15 VBG Base Excess -0.7 mEq/L 09/01/22 11:15 Oxygen Given ROOM AIR 09/01/22 12:32 Sodium 138 mmol/L (136-145) 09/03/22 05:46 Potassium 3.7 mmol/L (3.5-5.1) 09/03/22 05:46 Chloride 106 mmol/L (98-107) 09/03/22 05:46 Carbon Dioxide 27 mmol/L (21-32) 09/03/22 05:46 Anion Gap 5 (3-11) 09/03/22 05:46 BUN 12 mg/dl (6-23) 09/03/22 05:46 Creatinine 0.57 mg/dl (0.6-1.2) L 09/03/22 05:46 Est Cr Clr Drug Dosing Not Reportable 09/03/22 05:46 Est GFR ( Amer) 107.3 ml/min 09/03/22 05:46 Est GFR (Non-Af Amer) 92.6 ml/min 09/03/22 05:46 BUN/Creatinine Ratio 21.1 (10-20) H 09/03/22 05:46 Glucose 89 mg/dl (70-99(Fasting)) 09/03/22 05:46 POC Glucose 76 mg/dl (70-99) 09/02/22 22:19 Osmolality 272 mOsm/kg (280-300) L 09/01/22 12:32 Calcium 8.8 mg/dl (8.5-10.1) 09/03/22 05:46 Phosphorus 3.3 mg/dl (2.5-4.9) 09/03/22 05:46 Magnesium 1.9 mg/dl (1.7-2.4) 09/03/22 05:46 Total Bilirubin 0.4 mg/dl (0.2-1.0) 09/01/22 09:55 AST 15 U/L (13-39) 09/01/22 09:55 ALT 12 U/L (7-52) 09/01/22 09:55 Alkaline Phosphatase 76 U/L (34-104) 09/01/22 09:55 Total Creatine Kinase 63 U/L (26-192) 09/01/22 12:32 Troponin I High Sens 5.0 pg/ml (0-14) 09/01/22 09:55 Total Protein 6.2 gm/dl (6.0-8.3) 09/01/22 09:55 Albumin 4.0 gm/dl (3.4-5.0) 09/01/22 09:55 Globulin 2.2 gm/dl (2.5-4.0) L 09/01/22 09:55 Albumin/Globulin Ratio 1.8 (0.9-2) 09/01/22 09:55 Lipase 18 U/L (11-82) 09/01/22 09:55 TSH 0.715 uIu/ml (0.300-4.500) 09/06/22 05:45 Urine Color Dark Yellow 09/01/22 11:51 Urine Appearance Clear (Clear) 09/01/22 11:51 Urine pH 7.0 (4.5-7.5) 09/01/22 11:51 Ur Specific [place] 1.006 (1.000-1.030) 09/01/22 11:51 Urine Protein Negative (Negative) 09/01/22 11:51 Urine Glucose (UA) Negative (Negative) 09/01/22 11:51 Urine Ketones 1+ (Negative) H 09/01/22 11:51 Urine Blood Trace (Negative) H 09/01/22 11:51 Urine Nitrite Negative (Negative) 09/01/22 11:51 Urine Bilirubin Negative (Negative) 09/01/22 11:51 Urine Urobilinogen Negative (Negative) 09/01/22 11:51 Ur Leukocyte Esterase Negative (Negative) 09/01/22 11:51 Urine WBC (Auto) 0 /hpf (0-5) 09/01/22 11:51 Urine RBC (Auto) 0-4 /hpf (0-4) 09/01/22 11:51 U Hyaline Cast (Auto) 0 /lpf (0-5) 09/01/22 11:51 U Epithel Cells (Auto) 0-5 /lpf (0-5) 09/01/22 11:51 Urine Bacteria (Auto) Negative (Negative) 09/01/22 11:51 Urine Osmolality 166 mOsm/kg (500-800) L 09/01/22 11:51 Salicylates < 3.0 mg/dl (3.0-30) L 09/01/22 09:55 Urine Opiates Screen Neg (Neg) 09/01/22 11:51 Ur Methadone, Qual Neg (Neg) 09/01/22 11:51 Acetaminophen < 3 ug/ml (10-30) L 09/01/22 18:11 Urine Barbiturates Neg (Neg) 09/01/22 11:51 Ur Phencyclidine (PCP) Neg (Neg) 09/01/22 11:51 Clozapine 1266 mcg/L A* 09/01/22 09:55 Norclozapine 544 mcg/L (25-400) H 09/01/22 09:55 U Amphetamin/Meth Scrn Neg (Neg) 09/01/22 11:51 MDMA (Ecstasy) Screen Neg (Neg) 09/01/22 11:51 U Benzodiazepines Scrn Neg (Neg) 09/01/22 11:51 Ur Cocaine Metabolite Neg (Neg) 09/01/22 11:51 U Marijuana (THC) Screen Neg (Neg) 09/01/22 11:51 Ethyl Alcohol mg/dL < 10.0 mg/dl (<10.0) 09/01/22 18:11 SARS-CoV-2, RNA, NAAT NEGATIVE (NEGATIVE) 09/01/22 10:55 Impressions Chest X-Ray 09/01/22 09:54 XR chest 1V portable CLINICAL HISTORY: Chest pain, nonspecific TECHNIQUE: Single frontal radiograph of the chest was obtained. Comparison: Comparison is made to chest radiograph 07/13/2022 FINDINGS: No lines and tubes are seen. The cardiomediastinal silhouette is normal. The lungs are clear. No evidence of pleural effusion or pneumothorax. IMPRESSION: No acute chest disease. ACT 112: Negative or not required by law. Electronically signed by: Trevin Yeboah M.D. 09/01/2022 10:[address] 09/01/22 09:56 CT head/brain wo con CLINICAL HISTORY: ams Technique: Contiguous axial CT images of the head were acquired from the base of the skull to the vertex without intravenous contrast administration. Images were viewed in brain, subdural and bone windows. Automated dose lowering techniques and/or adjustment according to patient size were utilized for this exam. Comparison: Comparison is made to CT head 07/22/2022 Findings: Areas of decreased attenuation are present in the periventricular and subcortical white matter bilaterally consistent with small vessel ischemic disease. Generalized cerebral atrophy with commensurate enlargement of the ventricles, sulci, and cisterns is also present. There is no acute intracranial hemorrhage or evidence of acute territorial infarction. No shift of the midline structures, mass effect, or extra-axial abnormalities are shown. Atherosclerotic calcifications are present in the intracranial segments of the internal carotid arteries. Right parietal craniotomy changes are again seen. Mild left maxillary sinus disease is seen. The orbits appear normal. There are no acute fractures of the calvaria or scalp swelling. Impression: No acute intracranial hemorrhage, no evidence of acute territorial infarction or other acute intracranial disease process. ACT 112: Negative or not required by law. Electronically signed by: Trevin Yeboah M.D. 09/01/2022 10:24 AM Brain MRI 09/01/22 12:59 MR brain wo/w con HISTORY: 71 years-old Female unresponsive acutely altered bowel status COMPARISON: Head CT of same day, brain MRI 04/15/2018 TECHNIQUE: Multiplanar multisequence MRI of the brain was obtained both with and without the use of 6.5 cc Gadavist FINDINGS: Prior right parietal craniectomy. No restricted diffusion to suggest acute or subacute infarct. Degenerative changes of the imaged cervical spine. Mildly motion degraded study. No acute intracranial hemorrhage, midline shift, abnormal extra-axial collection, hydrocephalus or intracranial mass. Involutional changes with mild T2/FLAIR foci throughout the white matter suggestive of chronic microvascular ischemic disease. Cerebral venous sinuses and major arterial flow voids appear patent. Prior bilateral lens repair. Unremarkable soft tissues. Mastoid air cells are clear. Small left maxillary air-fluid level. No abnormal enhancement. IMPRESSION: 1. No acute intracranial abnormality. No acute or subacute infarct. 2. No abnormal enhancement. 3. Chronic findings as above. ACT 112: Negative or not required by law. The above report was generated using voice recognition software. It may contain grammatical, syntax or spelling errors. Electronically signed by: Live Mancera M.D. 09/01/2022 5:05 PM Hospital Course (1) Obtunded: Unresponsive No clear etiology. Her urine drug screen is unremarkable. Clozaril levels are pending. ABG also normal. I suspect it may be from polypharmacy or intolerance to sumatriptan (she had it 2 days in a row preceding her being found on the ground). Speaking with her caregiver she did NOT take more sumatriptan than was initially suspected (her pill counts were accurate) and she also has her medications in a pill dispenser. Another possibility is a post ictal state from unwitnessed seizure. No further episodes while here An EEG here is negative for epileptiform activity Brain MRI shows prior right parietal craniotomy which would support patient's reported history of brain surgery in her 20s. Her Clozapine level 1266 ( above 900 is considered toxic range) She has been on Gabapentin 100mg BID, will continue on discharge Case discussed with Psychiatry Dr. Barone ( no official consult placed) that recommended to continue Clozapine 50mg BID since pt tolerates current dose Will need to titrate clozapine base of clinical Pt will need ANC to monitor while on Clozapine Continue monitor closely (2) Hyponatremia: Na+ 127, received 1 L NSS in ED with normalization of sodium. Hold further doses of IVF Caregiver reports poor p.o. intake this week, likely contributing to hyponatremia resolved (3) Hypertension: on home metoprolol and lisinopril. Lisinopril increased to 30mg daily with improvement in BP during this admission (4) Neuropathy: Gabapentin changed to 100mg BID (5) DM2 (diabetes mellitus, type 2): Hgb A1c 6.2 05/2022 Hold metformin, monitor BSG, FS has been low 100s. Will continue diabetic diet (6) Schizophrenia: Cymbalta 60mg and clozaril 50mg daily restarted 09/04 which she is tolerating well. Attempted to call Sidney yesterday to verify whether patient also takes Clozaril 300mg QHS but couldn't reach her yesterday or today. Her Clozapine level 1266 ( above 900 is considered toxic range) Case discussed with Psychiatry Dr. Barone ( no official consult placed) that recommended to continue Clozapine 50mg BID since pt tolerates current dose Will need to titrate clozapine base of clinical Pt will need ANC to monitor while on Clozapine I called her caregiver Sidney to update, unfortunately no one answered (7) Hypothyroidism: TSH WNL continue synthroid (8) DVT prophylaxis: SQ Lovenox Plan Headache -Consistent with her known history of migraine headaches. continue toradol and zofran PRN Disposition Discharge to [facility] Total Time Total Time Spent Total Time Spent (In Minutes): 40 minutes Discharge Plan Discharge Items Patient Disposition: Transfer Inpatient Rehab Fac Reason For Visit: UNRESPONSIVE, POSSIBLE OD Discharge Diagnosis: Obtunded: Hyponatremia: Hypertension: Neuropathy: DM2 (diabetes mellitus, type 2): Schizophrenia: Hypothyroidism: Activity: Resume your previous activity Non-emergency contact: Primary Care Provider and Psychiatrist Call non-emergency contact if: you have any medication questions Follow-up/Referrals: Raymond Vann, [Primary Care Provider] - Diet: Heart Healthy Addtl Attending Provider Instructions: Follow up with your primary care provider once discharge from rehab. Continue physical and occupation therapy You will need to follow with psychiatry or your provider to titrate your Cl ozapine Please monitor ANC (CBC with diff) while on Clozapine Continue monitor your blood pressure Fall precaution Pending Studies at Discharge: No Stand-Alone Forms: My [facility] Skilled Items Patient informed of condition?: Yes DNR: No Discharge Level of Care: Acute rehab Communicable Disease: No Discharge Prognosis: Stable Lines: None Urinary Catheter: No Medications and DC Order Prescriptions: Continued levothyroxine [Synthroid] 50 mcg tablet 50 mcg PO DAILYBB duloxetine [Cymbalta] 60 mg capsule,delayed release(DR/EC) 60 mg PO QAM atorvastatin 20 mg Tablet 20 mg PO PM sumatriptan succinate 100 mg Tablet 100 mg PO DAILY PRN (Reason: Headache) loratadine [Claritin] 10 mg Tablet 10 mg PO HS magnesium oxide 400 mg magnesium Tablet 400 mg PO QAM metoprolol succinate 50 mg tablet extended release 24 hr 50 mg PO QAM polyethylene glycol 3350 [Miralax] 17 gram/dose powder 17 g PO DAILY PRN (Reason: constipation) Qty: 238 0RF riboflavin (vitamin B2) 400 mg tablet 400 mg PO QAM metformin 500 mg tablet 500 mg PO QAM Rx Instructions: take with breakfast cyanocobalamin (vitamin B-12) [Vitamin B-12] 1,000 mcg Tablet 1,000 mcg PO DAILY psyllium Powder 1 tsp PO TID PRN (Reason: Constipation) Rx Instructions: MAY TAKE UP TO 3 TIMES PER DAY. Vitron-C 65 mg iron- 125 mg Tablet,Delayed Release (Dr/Ec) 1 tab PO DAILY loperamide 2 mg Capsule 2 mg PO QID PRN (Reason: Diarrhea) meclizine 25 mg Tablet 25 mg PO .Q5HRS PRN (Reason: DIZZY) ondansetron 4 mg Tablet,Disintegrating 4 mg PO Q8H PRN (Reason: Nausea) fluticasone propionate [Flonase Allergy Relief] 50 mcg/actuation [place],Suspension 2 spray INTRANASAL DAILY aspirin [Aspirin Childrens] 81 mg Tablet,Chewable 81 mg PO DAILY docusate sodium [Colace] 100 mg Capsule 100 mg PO BID acetaminophen 325 mg Tablet 650 mg PO Q4 MDD 3g PRN (Reason: pain 1-3) magnesium hydroxide [Milk of Magnesia] 400 mg/5 mL Suspension 30 ml PO Q6H PRN (Reason: constipation) Qty: 355 0RF gabapentin 100 mg Capsule 100 mg PO BID Rx Instructions: morning and afternoon omeprazole 20 mg Tablet,Delayed Release (Dr/Ec) 40 mg PO HS Changed clozapine 25 mg tablet 50 mg PO BID Qty: 30 0RF lisinopril 20 mg tablet 30 mg PO DAILY 30 Days Qty: 45 0RF Discontinued clozapine 100 mg tablet 300 mg PO HS Qty: 30 0RF gabapentin 100 mg Capsule 200 mg PO HS Discharge Orders: Discharge Order (Routine); Ordered 09/07/22 Ordered By: Drew Faustin Admission Data Admit Date/Time: 09/01/22 11:09 Attending Provider: Drew Faustin Admit Provider: Oneal Bradley Primary Care Provider: Raymond Vann Other Providers: Oneal Bradley ; [facility]
[2022-09-07] MEDS ORDERED: cloZAPine 25 MG TAB PO ONE (21:00)
== END 2022-09-07 14:56 | DRG 71 ==
LOC: ED 09:42 → EDINP 11:09 → SUATTDRO 11:09 → 4W 13:49

== ENCOUNTER 2022-12-16 00:07 | Inpatient (IN) ==
[2022-12-16] MEDS ORDERED: SODIUM CHLORIDE 0.9% 1000ML 1,000 ML IV SCH (01:15)
[2022-12-16 01:35] LABS: Basophils # (auto) 0.05 K/uL (0-0.2); Basophils % (auto) 0.9 %; Eosinophils # (auto) 0.12 K/uL (0-0.50); Eosinophils % (auto) 2.1 %; Hematocrit (blood only) 34.1 % (37.0-47.0); Hemoglobin 11.3 g/dl (12.0-16.0); Immature Granulocytes # (auto) 0.02 K/uL (0.01-0.20); Immature Granulocytes % (auto) 0.4 %; Lymphocytes # (auto) 1.71 K/uL (1.2-3.4); Lymphocytes % (auto) 30.5 %; Mean Corpuscular Hgb Conc 33.1 g/dL (32.0-36.0); Mean Corpuscular Volume 90.5 fL (80.0-100.0); Mean Platelet Volume 10.3 fL (9.4-12.4); Monocytes % (auto) 12.5 %; Neutrophils % (auto) 53.6 %; Platelet Count 170 K/uL (130-400); RDW Standard Deviation 50.1 fL (36.4-46.3); Red Blood Count 3.77 M/uL (4.20-5.40)
--- NOTE | 2022-12-16 01:42 | Emergency Department Note ---
Impression & Plan Generalized weakness, Acute UTI (urinary tract infection), Abdominal pain ED Provider Note ED Provider Note NAME: LJ PRASAD AGE:72 SEX: Female : 1950 ARRIVES VIA: EMS INFORMANT: Patient ED PROVIDER(s): Fariba Coppola DO CHIEF COMPLAINT: Increased weakness, abdominal pain, headache HPI: This is a 72-year-old female who presents emergency department due to increased weakness, abdominal pain, and headache. Patient states symptoms began today after she was discharged from the ER where she had been diagnosed with urinary tract infection and started on Macrobid. Patient states she did have a headache while here though it seemed to get worse when she went home. She states she was trying to drink fluids that she was instructed. She states she began noticing abdominal pain both centrally and bilateral lateral aspects of the abdomen. She denies any radiation of this pain into the back. Patient does have a prior history of UTIs. No history of pyelonephritis. Patient denies chest pain, trouble breathing, fevers or chills. PAST MEDICAL HISTORY:See Below PAST SURGICAL HISTORY:See Below FAMILY HISTORY:See Below SOCIAL HISTORY:See Below HOME MEDICATIONS:See Below ALLERGIES:See Below VITALS:See Below PHYSICAL EXAMINATION: GENERAL: alert, unwell appearing, well nourished, no distress, non-toxic EYE EXAM: normal conjunctiva, PERRL and EOM's grossly intact OROPHARYNX: no exudate, no erythema, lips, buccal mucosa, and tongue normal and mucous membranes are moist NECK: supple, no nuchal rigidity, no adenopathy, non-tender LUNGS: Clear to auscultation. Normal chest wall mechanics, no w/r/r HEART: no murmurs, S1 normal and S2 normal ABDOMEN: abdomen soft, non-tender, normo-active bowel sounds, no masses, no rebound or guarding. BACK: Back is symmetrical on inspection and there is no deformity, no midline tenderness, no CVA tenderness.Kyphosis noted. SKIN: no rashes, petechiae, orbruising UPPER EXTREMITIES: upper extremities are grossly normal. FROM, nml pulses b/l. LOWER EXTREMITIES: No pitting edema. FROM, nml pulses b/l. NEURO EXAM: Normal sensorium, cranial nerves II-XII grossly intact, normal speech, no facial droop,nogross weakness of arms, no gross weakness of legs. Gross sensation intact. No ataxia. Vital Signs: reviewed and remarkable Differential Diagnosis: A sending UTI, pyelonephritis, LAURI, obstructive uropathy, bacteremia/sepsis, UTI, medication ADR, dehydration, as well as others were considered MEDICAL DECISION MAKING: This is a 72 yo female who presents with weakness, abdominal pain, and recent diagnosis of UTI. Patient seen and evaluated here yesterday. Labs drawn and sent, IV established and evaluation yesterday reviewed which included labs/CT head/UA. Recent urine culture with E.coli and per the note pt had been on cipro which was changed to macrobid at [place] based on sensitivities. VS stable and patient afebrile. GIven new complaint of abdominal pain, CT a/p added to evaluate for pyelo/ascending UTI. I have a low suspicion for obstructive uropathy. Patient labs reassuring, no leukocytosis and no LAURI. Case discussed with the hospitalist for additional evaluation/mgmt. We discussed IV antibiotics, he would like to see/evaluate the patient and will then decide. Consultation(s): 0455: Discussed with Dr. Nunez. ER Treatment Provided: See below Diagnostics Interpreted By Me: -ECG: Normal sinus at 61, normal axis, normal intervals, no acute ST/T wave changes -Cardiac Monitoring: An order was placed for continuous cardiac monitoring. The monitor shows a rate of 66 with normal sinus rhythm. -Laboratory studies: As stated above and show below. -Imaging studies: [] Triage Nursing Note Reviewed Prior/Outside Records Reviewed Past Med/Surg History Medical History AMS (altered mental status) Anxiety Constipation COVID-19 Dehydration Dizziness DM2 (diabetes mellitus, type 2) GERD (gastroesophageal reflux disease) Well controlled with medication Headache HLD (hyperlipidemia) Hypertension Hyponatremia Hypothyroidism Migraine Nausea Neuropathy Neuropathy Obtunded Schizophrenia Somatization disorder Unresponsive Vertigo Surgical History H/O bilateral cataract extraction H/O brain surgery "abt 1969 R parietal exploration for benign lesion" H/O cystoscopy H/O foot surgery History of cataract surgery History of colonoscopy History of craniotomy 1969, IN [place] D/T HEADACHE---FOLLOWS W DR. MICHAEL History of tonsillectomy History of tooth extraction WISDOM TEETH S/P foot surgery, left X2 S/P foot surgery, right X2 Family History Grandmother Family history of diabetes mellitus PATERNAL Family/Other Family history of diabetes mellitus UNCLE Father Parkinson disease Mother CHF (congestive heart failure) Social History Smoking Status: Never smoker Second Hand Exposure: Yes (FATHER SMOKED); Do You Dip or Chew Tobacco: No; Hx Alcohol Use: No Hx Substance Use: No Preferred Language: Bahraini Communication Ability: Effective Boilermaking Supervisor Required: No Beliefs That Will Affect Care: None marital status: Single Current Living Situation: Alone How many Children do You have: 0 Feels Safe at Home: Yes Safety Concerns: Feels Safe At This Time Assistive Devices: Walker Allergies Allergies Allergy/AdvReac Type Severity Reaction Status Date / Time Cephalosporins Allergy Intermediate Hallucinati Verified 07/22/22 16:31 ons Penicillins Allergy Intermediate Hives Verified 07/22/22 16:31 pollen extracts Allergy Intermediate seasonal Verified 07/22/22 16:31 allergy rizatriptan [From Maxalt] Allergy Unknown Unknown Verified 07/22/22 16:31 cyclobenzaprine AdvReac Intermediate neuro Verified 07/22/22 16:31 [From Flexeril] complications Home Meds Home Medications Medication Instructions Recorded Confirmed duloxetine 60 mg capsule,delayed 60 mg PO QAM 04/14/18 12/16/22 release (Cymbalta) levothyroxine 50 mcg tablet 50 mcg PO DAILYBB 04/14/18 12/16/22 (Synthroid) loratadine 10 mg tablet (Claritin) 10 mg PO HS 03/25/19 12/16/22 magnesium oxide 400 mg PO QAM 03/25/19 12/16/22 atorvastatin 20 mg tablet 20 mg PO PM 11/22/19 12/16/22 sumatriptan succinate 100 mg tablet 100 mg PO DAILY PRN Headache 11/22/19 12/16/22 metformin 500 mg tablet 500 mg PO QAM 02/24/21 12/16/22 riboflavin (vitamin B2) 400 mg 400 mg PO QAM 02/24/21 12/16/22 tablet metoprolol succinate 50 mg 50 mg PO QAM 04/15/21 12/16/22 tablet,extended release 24 hr cyanocobalamin (vitamin B-12) 1,000 mcg PO DAILY 05/17/21 12/16/22 1,000 mcg tablet (Vitamin B-12) iron,carbonyl 65 mg-vitamin C 125 1 tab PO DAILY 05/17/21 12/16/22 mg tablet,delayed release (Vitron-C) fluticasone propionate 50 2 spray intranasal DAILY 07/13/21 12/16/22 mcg/actuation nasal spray,suspension (Flonase Allergy Relief) loperamide 2 mg capsule 2 mg PO QID PRN Diarrhea 07/13/21 12/16/22 meclizine 25 mg tablet 25 mg PO .Q5HRS PRN DIZZY 07/13/21 12/16/22 ondansetron 4 mg disintegrating 4 mg PO Q8H PRN Nausea 07/13/21 12/16/22 tablet aspirin 81 mg chewable tablet 81 mg PO DAILY 05/12/22 12/16/22 (Aspirin Childrens) acetaminophen 325 mg tablet 650 mg PO Q4 PRN pain 1-3 07/13/22 12/16/22 docusate sodium 100 mg capsule 100 mg PO BID 07/13/22 12/16/22 (Colace) gabapentin 100 mg capsule 100 mg PO UD 09/01/22 12/16/22 cholecalciferol (vitamin D3) 1,250 1,250 mcg PO WK 12/16/22 12/16/22 mcg (50,000 unit) capsule clozapine 100 mg tablet 300 mg PO HS 12/16/22 12/16/22 clozapine 25 mg tablet 50 mg PO QAM 12/16/22 12/16/22 lisinopril 20 mg tablet 20 mg PO QAM 12/16/22 12/16/22 omeprazole 40 mg capsule,delayed 40 mg PO HS 12/16/22 12/16/22 release Previous Rx's Medication Instructions Recorded magnesium hydroxide 400 mg/5 mL 30 ml PO Q6H PRN constipation #355 07/20/22 oral suspension (Milk of Magnesia) mL polyethylene glycol 3350 17 17 g PO DAILY PRN constipation 07/22/22 gram/dose oral powder (Miralax) #238 grams ciprofloxacin HCl 500 mg tablet 500 mg PO BID #20 tabs 12/13/22 (Cipro) nitrofurantoin 100 mg PO BID 6 days #12 caps 12/15/22 monohydrate/macrocrystals 100 mg capsule (Macrobid) Results & Data (ED) Vital Signs Vital Signs - 24 hr 12/16/22 02:00 12/16/22 02:30 12/16/22 03:00 Pulse Rate Pulse Rate [Apical] 64 67 67 Respiratory Rate 16 16 16 Respiratory Effort / Characteristics Non-Labored Spontaneous Respiratory Depth Normal Respiratory Pattern Regular Blood Pressure [Right Arm] 188/108 H 169/81 H 158/77 H Blood Pressure Mean [Right Arm] 134 110 104 Pulse Oximetry 100 98 98 Oxygen Delivery Method Room Air Room Air Room Air 12/16/22 04:00 12/16/22 05:00 12/16/22 04:17 Pulse Rate 61 Pulse Rate [Apical] 65 61 Respiratory Rate 15 16 Respiratory Effort / Characteristics Non-Labored Spontaneous Respiratory Depth Normal Respiratory Pattern Blood Pressure [Right Arm] 168/88 H 196/97 H Blood Pressure Mean [Right Arm] 114 130 Pulse Oximetry 99 99 Oxygen Delivery Method Room Air Room Air 12/16/22 05:30 Pulse Rate Pulse Rate [Apical] 63 Respiratory Rate 15 Respiratory Effort / Characteristics Respiratory Depth Respiratory Pattern Blood Pressure [Right Arm] 186/90 H Blood Pressure Mean [Right Arm] 122 Pulse Oximetry 99 Oxygen Delivery Method Room Air Laboratory Data 12/16/22 01:20 12/16/22 01:20 Lab Results 12/16/22 12/16/22 12/16/22 Range/Units 01:10 01:20 01:20 WBC 5.60 (4.8-10.8) K/ul RBC 3.77 L (4.20-5.40) M/uL Hgb 11.3 L (12.0-16.0) g/dl Hct 34.1 L (37.0-47.0) % MCV 90.5 (80.0-100.0) fL MCH 30.0 (25.0-34.0) pg MCHC 33.1 (32.0-36.0) g/dL RDW Std Deviation 50.1 H (36.4-46.3) fL RDW Coeff of Cny 15.0 H (11.5-14.5) % Plt Count 170 (130-400) K/uL MPV 10.3 (9.4-12.4) fL Immature Gran % (Auto) 0.4 % Neut % (Auto) 53.6 % Lymph % (Auto) 30.5 % [place] % (Auto) 12.5 % Eos % (Auto) 2.1 % Baso % (Auto) 0.9 % Neut # (Auto) 3.00 (1.40-6.50) K/uL Lymph # (Auto) 1.71 (1.2-3.4) K/uL [place] # (Auto) 0.70 H (0.11-0.59) K/uL Eos # (Auto) 0.12 (0-0.50) K/uL Baso # (Auto) 0.05 (0-0.2) K/uL Immature Gran # (Auto) 0.02 (0.01-0.20) K/uL Sodium 139 (136-145) mmol/L Potassium 3.8 (3.5-5.1) mmol/L Chloride 105 (98-107) mmol/L Carbon Dioxide 29 (21-32) mmol/L Anion Gap 5 (3-11) BUN 12 (6-23) mg/dl Creatinine 0.76 (0.6-1.2) mg/dl Est Cr Clr Drug Dosing 59.3 ml/min Est GFR ( Amer) 90.2 ml/min Est GFR (Non-Af Amer) 77.8 ml/min BUN/Creatinine Ratio 15.8 (10-20) Glucose 102 H (70-99(Fasting)) mg/dl Estimat Average Glucose mg/dl Hemoglobin A1c (4.5-5.6) % Calcium 9.2 (8.6-10.3) mg/dl Magnesium 1.9 (1.7-2.4) mg/dl Total Bilirubin 0.4 (0.2-1.0) mg/dl AST 12 L (13-39) U/L ALT 12 (7-52) U/L Alkaline Phosphatase 59 (34-104) U/L Troponin I High Sens 5.7 (0-14) pg/ml Total Protein 6.0 (6.0-8.3) gm/dl Albumin 3.9 (3.4-5.0) gm/dl Globulin 2.1 L (2.5-4.0) gm/dl Albumin/Globulin Ratio 1.9 (0.9-2) Lipase 11 (11-82) U/L TSH (0.300-4.500) uIu/ml SARS-CoV-2, RNA, NAAT NEGATIVE (NEGATIVE) 12/16/22 12/16/22 Range/Units 01:20 01:20 WBC (4.8-10.8) K/ul RBC (4.20-5.40) M/uL Hgb (12.0-16.0) g/dl Hct (37.0-47.0) % MCV (80.0-100.0) fL MCH (25.0-34.0) pg MCHC (32.0-36.0) g/dL RDW Std Deviation (36.4-46.3) fL RDW Coeff of Cyn (11.5-14.5) % Plt Count (130-400) K/uL MPV (9.4-12.4) fL Immature Gran % (Auto) % Neut % (Auto) % Lymph % (Auto) % [place] % (Auto) % Eos % (Auto) % Baso % (Auto) % Neut # (Auto) (1.40-6.50) K/uL Lymph # (Auto) (1.2-3.4) K/uL [place] # (Auto) (0.11-0.59) K/uL Eos # (Auto) (0-0.50) K/uL Baso # (Auto) (0-0.2) K/uL Immature Gran # (Auto) (0.01-0.20) K/uL Sodium (136-145) mmol/L Potassium (3.5-5.1) mmol/L Chloride (98-107) mmol/L Carbon Dioxide (21-32) mmol/L Anion Gap (3-11) BUN (6-23) mg/dl Creatinine (0.6-1.2) mg/dl Est Cr Clr Drug Dosing ml/min Est GFR ( Amer) ml/min Est GFR (Non-Af Amer) ml/min BUN/Creatinine Ratio (10-20) Glucose (70-99(Fasting)) mg/dl Estimat Average Glucose 126 mg/dl Hemoglobin A1c 6.0 H (4.5-5.6) % Calcium (8.6-10.3) mg/dl Magnesium (1.7-2.4) mg/dl Total Bilirubin (0.2-1.0) mg/dl AST (13-39) U/L ALT (7-52) U/L Alkaline Phosphatase (34-104) U/L Troponin I High Sens (0-14) pg/ml Total Protein (6.0-8.3) gm/dl Albumin (3.4-5.0) gm/dl Globulin (2.5-4.0) gm/dl Albumin/Globulin Ratio (0.9-2) Lipase (11-82) U/L TSH 1.507 (0.300-4.500) uIu/ml SARS-CoV-2, RNA, NAAT (NEGATIVE) Administered Medications Acetaminophen (Acetaminophen 325 Mg Tab) 650 mg PO Q4 PRN PRN Reason: pain 1-3 Stop: 01/15/23 08:21 Last Admin: 12/16/22 22:15 Dose: 650 mg Documented By: Admin: 12/16/22 14:12 Dose: 650 mg Documented By: GEETA Aspirin (Aspirin 81 Mg Chew) 81 mg PO DAILY [facility] Stop: 01/15/23 08:59 Last Admin: 12/16/22 10:48 Dose: 81 mg Documented By: GEETA Atorvastatin Calcium (Atorvastatin 20 Mg Tab) 20 mg PO PM [facility] Stop: 01/15/23 20:59 Last Admin: 12/16/22 20:51 Dose: 20 mg Documented By: BARRERA Clozapine (Clozapine 100 Mg Tab) 300 mg PO HS J[facility] Stop: 01/15/23 20:59 Last Admin: 12/16/22 20:51 Dose: 300 mg Documented By: BARRERA Clozapine (Clozapine 25 Mg Tab) 50 mg PO QAM [facility] Stop: 01/15/23 08:59 Last Admin: 12/16/22 10:49 Dose: 50 mg Documented By: GEETA Cyanocobalamin (Cyanocobalamin (B-12) 500 Mcg Tablet) 1,000 mcg PO DAILY [facility] Stop: 01/15/23 08:59 Last Admin: 12/16/22 10:49 Dose: 1,000 mcg Documented By: GEETA Docusate Sodium (Docusate Sodium 100 Mg Cap) 100 mg PO BID [facility] Stop: 01/15/23 08:59 Last Admin: 12/16/22 20:51 Dose: 100 mg Documented By: Admin: 12/16/22 10:49 Dose: 100 mg Documented By: GEETA Duloxetine HCl (Duloxetine Hcl 60 Mg Cap) 60 mg PO QAM [facility] Stop: 01/15/23 08:59 Last Admin: 12/16/22 10:50 Dose: 60 mg Documented By: GEETA Fluticasone Propionate (Fluticasone Propionate Na Spr 16 Gm Btl) 2 sprays NA DAILY [facility] Stop: 01/15/23 08:59 Last Admin: 12/16/22 10:50 Dose: 2 sprays Documented By: GEETA Gabapentin (Gabapentin 100 Mg Cap) 100 mg PO BID@0900,1400 [facility] Stop: 01/15/23 08:59 Last Admin: 12/16/22 14:08 Dose: 100 mg Documented By: Admin: 12/16/22 10:51 Dose: 100 mg Documented By: GEETA Aztreonam 2,000 mg/ Dextrose 110 mls @ 100 mls/hr IV Q8H [facility]; Protocol Stop: 12/26/22 13:59 Last Admin: 12/16/22 22:59 Dose: 100 mls/hr Documented By: Infusion: 12/16/22 15:22 Dose: 0 mls/hr Documented By: Admin: 12/16/22 14:08 Dose: 100 mls/hr Documented By: GEETA Insulin Aspart (Insulin Aspart Per Unit Charge) 0 units SC [facility] Stop: 01/15/23 08:21 Last Admin: 12/16/22 20:52 Dose: Not Given Documented By: Admin: 12/16/22 16:57 Dose: 2 units Documented By: GEETA Co-signed By: FELICITY Admin: 12/16/22 12:32 Dose: Not Given Documented By: GEETA Co-signed By: MICHELLE Admin: 12/16/22 10:46 Dose: Not Given Documented By: GEETA Levothyroxine Sodium (Levothyroxine Sodium 50 Mcg Tablet) 50 mcg PO DAILYBB [facility] Stop: 01/15/23 08:59 Last Admin: 12/16/22 10:51 Dose: 50 mcg Documented By: GEETA Loratadine (Loratadine 10 Mg Tab) 10 mg PO [facility] Stop: 01/15/23 20:59 Last Admin: 12/16/22 20:52 Dose: 10 mg Documented By: BARRERA Magnesium Oxide (Magnesium Oxide 400 Mg Tab) 400 mg PO [facility] Stop: 01/15/23 08:59 Last Admin: 12/16/22 10:51 Dose: 400 mg Documented By: GEETA Metoprolol Succinate (Metoprolol Succ 50mg Ext Rel Tab) [facility] [place]: 01/15/23 08:59 Last Admin: 12/16/22 10:52 Dose: 50 mg Documented By: GEETA Pantoprazole Sodium (Pantoprazole 40 Mg Tab) 40 mg PO [facility] Stop: 01/15/23 20:59 Last Admin: 12/16/22 20:51 Dose: 40 mg Documented By: BARRERA Discontinued Medications Acetaminophen (Acetaminophen 325 Mg Tab) 650 mg PO NOW STA Stop: 12/16/22 05:40 Last Admin: 12/16/22 07:05 Dose: Not Given Documented By: JUDY Enoxaparin Sodium (Enoxaparin Inj 30 Mg/0.3 Ml Syr) 30 mg SQ [facility] Stop: 01/15/23 08:59 Last Admin: 12/16/22 10:50 Dose: 30 mg Documented By: GEETA Hydralazine HCl (Hydralazine Hcl 20 Mg/Ml Vial) 10 mg IV NOW STA Stop: 12/16/22 05:33 Last Admin: 12/16/22 05:39 Dose: 10 mg Documented By: AN Sodium Chloride (Nss 1000ml) 1,000 mls @ 125 mls/hr IV .Q8H [facility] Stop: 01/15/23 01:14 Last Infusion: 12/16/22 05:06 Dose: 0 mls/hr Documented By: Admin: 12/16/22 01:26 Dose: 125 mls/hr Documented By: AN Sodium Chloride (Nss 1000ml) 1,000 mls @ 60 mls/hr IV .[id number] ONE Stop: 12/16/22 21:35 Last Admin: 12/16/22 05:09 Dose: 60 mls/hr Documented By: AN Aztreonam 1,000 mg/ Dextrose 110 mls @ 100 mls/hr IV NOW STA; Protocol Stop: 12/16/22 06:26 Last Infusion: 12/16/22 06:47 Dose: 0 mls/hr Documented By: Admin: 12/16/22 05:32 Dose: 100 mls/hr Documented By: ROWENA Ioversol (Optiray 320 100ml) 94 ml IV ONCE ONE Stop: 12/16/22 02:12 Last Admin: 12/16/22 02:11 Dose: 94 ml Documented By: CHANDLER Lisinopril (Lisinopril 20 Mg Tab) 20 mg PO NOW STA Stop: 12/16/22 04:57 Last Admin: 12/16/22 05:32 Dose: 20 mg Documented By: AN Discharge Plan Visit Data Chief Complaint: Weakness Stated Complaint: Weakness, UTI ED Provider: Fariba Coppola Discharge Problem: Generalized weakness, Acute UTI (urinary tract infection), Abdominal pain Patient Disposition: Admitted As Inpatient Discharge Instructions Interventions: ED Discharge Assessment Last Done: 12/16/22 08:00
[2022-12-16 01:52] LABS: Albumin Globulin Ratio 1.9 (0.9-2); Albumin Level 3.9 gm/dl (3.4-5.0); BUN Creatinine Ratio 15.8 (10-20); Bilirubin,Total 0.4 mg/dl (0.2-1.0); Calcium 9.2 mg/dl (8.6-10.3); Creatinine Clr Calc Pharmacy 59.3 ml/min; Est GFR (African American) 90.2 ml/min; Est GFR (Non-African American) 77.8 ml/min; Globulin 2.1 gm/dl (2.5-4.0); Magnesium 1.9 mg/dl (1.7-2.4); Potassium 3.8 mmol/L (3.5-5.1)
[2022-12-16 01:59] LABS: Troponin I High Sensitivity 5.7 pg/ml (0-14)
[2022-12-16] MEDS ORDERED: OPTIRAY 320 100ml IV ONE (02:11)
[2022-12-16] MEDS ORDERED: lisinopril 20 MG TAB PO STA (04:56)
[2022-12-16] MEDS ORDERED: SODIUM CHLORIDE 0.9% 1000ML 1,000 ML IV ONE (04:57)
[2022-12-16] MEDS ORDERED: AZTREONAM 1,000 MG in DEXTROSE 5% 100 ML IV STA (05:21)
[2022-12-16] MEDS ORDERED: hydrALAZINE HCL 20 MG/ML VIAL IV STA (05:32)
--- NOTE | 2022-12-16 05:32 | History & Physical Report ---
Date of Service December 16, 2022 Assessment & Plan (1) Hypertensive crisis: Plan: Secondary to complicated UTI Recurrent disease History bladder diverticulum as per records rule out obstructive uropathy No sepsis for now hypertension, slightly elevated hypothyroidism, euthyroid as of today's TSH hyperlipidemia on statin Rx DM2 on oral meds, well-controlled as of recent hemoglobin A1c of 5.6 last July 2022 history of brain tumor status post partial surgery years ago (unknown pathology) hx somatization disorder chronic anemia, stable PCU given hypertensive crisis IV hydralazine 1 dose now Titrate home BP meds Urine CS, Azactam Follow CT abdomen pelvis results n.p.o. until CT results known ISS BG goal 1 10-1 40, carb count coverage. DVT prophylaxis. Lovenox subcu Full code Total critical care time was 40 minutes. Patient emergency contact/caregiver requesting updates from providers. Ms. Sidney Izaguirre, contact #[phone]. Text document was generated using [employer] voice recognition software. It may contain grammatical or spelling errors. Kindly contact undersigned for clarification of any documentation item in question. History of Present Illness Chief Complaint: Increasing weakness, abdominal pain Primary Care Provider: Raymond Vann DO History obtained from patient and records. Medical history significant for hypertension, hypothyroidism, hyperlipidemia, DM2 on oral meds, history of brain tumor status post partial surgery years ago (unknown pathology), somatization disorder, schizophrenia, history of migraine, chronic anemia (baseline hemoglobin of 10-11), recurrent UTIs, urinary incontinence, urinary bladder diverticulum as per records. Last confinement August 2022 for encephalopathy attributed to polypharmacy and hyponatremia. Patient discharged to [facility] facility prior to going home with caregiver. Few days ago, patient noted by caregiver to have altered mental status, slumped over forward with some shuffling of the feet. Caregiver concerned about dehydration, patient not drinking enough. Patient complaining of usual headache symptoms. Denies chest pain, SOB, abdominal pain. Patient evaluated at the ER. Patient requested to go home. Patient sent home on Macrobid course for possible UTI after getting initial dose of the ER. Increasing weakness at home with achy lower abdominal pain. Patient returned to the ER. SBP currently 190s. MEDICAL HISTORY: As above. SURGICAL HISTORY: partial benign brain tumor surgery, foot surgery, cystoscopy, hysteroscopy with biopsy, cataract surgeries FAMILY HISTORY: DM, Breast cancer, heart disease PERSONAL AND SOCIAL HISTORY: Nonsmoker. No chronic intake of alcoholic beverages. She is on disability. Lives with caregiver. Allergies Allergy/AdvReac Type Severity Reaction Status Date / Time Cephalosporins Allergy Intermediate Hallucinati Verified 07/22/22 16:31 ons Penicillins Allergy Intermediate Hives Verified 07/22/22 16:31 pollen extracts Allergy Intermediate seasonal Verified 07/22/22 16:31 allergy rizatriptan [From Maxalt] Allergy Unknown Unknown Verified 07/22/22 16:31 cyclobenzaprine AdvReac Intermediate neuro Verified 07/22/22 16:31 [From Flexeril] complications Home Medications Medication Instructions Recorded Confirmed Type duloxetine 60 mg capsule,delayed 60 mg PO QAM 04/14/18 12/16/22 History release (Cymbalta) levothyroxine 50 mcg tablet 50 mcg PO DAILYBB 04/14/18 12/16/22 History (Synthroid) loratadine 10 mg tablet (Claritin) 10 mg PO HS 03/25/19 12/16/22 History magnesium oxide 400 mg PO QAM 03/25/19 12/16/22 History atorvastatin 20 mg tablet 20 mg PO PM 11/22/19 12/16/22 History sumatriptan succinate 100 mg tablet 100 mg PO DAILY PRN Headache 11/22/19 12/16/22 History metformin 500 mg tablet 500 mg PO QAM 02/24/21 12/16/22 History riboflavin (vitamin B2) 400 mg 400 mg PO QAM 02/24/21 12/16/22 History tablet metoprolol succinate 50 mg 50 mg PO QAM 04/15/21 12/16/22 History tablet,extended release 24 hr cyanocobalamin (vitamin B-12) 1,000 mcg PO DAILY 05/17/21 12/16/22 History 1,000 mcg tablet (Vitamin B-12) iron,carbonyl 65 mg-vitamin C 125 1 tab PO DAILY 05/17/21 12/16/22 History mg tablet,delayed release (Vitron-C) fluticasone propionate 50 2 spray intranasal DAILY 07/13/21 12/16/22 History mcg/actuation nasal spray,suspension (Flonase Allergy Relief) loperamide 2 mg capsule 2 mg PO QID PRN Diarrhea 07/13/21 12/16/22 History meclizine 25 mg tablet 25 mg PO .Q5HRS PRN DIZZY 07/13/21 12/16/22 History ondansetron 4 mg disintegrating 4 mg PO Q8H PRN Nausea 07/13/21 12/16/22 History tablet aspirin 81 mg chewable tablet 81 mg PO DAILY 05/12/22 12/16/22 History (Aspirin Childrens) acetaminophen 325 mg tablet 650 mg PO Q4 PRN pain 1-3 07/13/22 12/16/22 History docusate sodium 100 mg capsule 100 mg PO BID 07/13/22 12/16/22 History (Colace) magnesium hydroxide 400 mg/5 mL 30 ml PO Q6H PRN constipation #355 07/20/22 12/16/22 Rx oral suspension (Milk of Magnesia) mL polyethylene glycol 3350 17 17 g PO DAILY PRN constipation 07/22/22 12/16/22 Rx gram/dose oral powder (Miralax) #238 grams gabapentin 100 mg capsule 100 mg PO UD 09/01/22 12/16/22 History ciprofloxacin HCl 500 mg tablet 500 mg PO BID #20 tabs 12/13/22 12/16/22 Rx (Cipro) nitrofurantoin 100 mg PO BID 6 days #12 caps 12/15/22 12/16/22 Rx monohydrate/macrocrystals 100 mg capsule (Macrobid) cholecalciferol (vitamin D3) 1,250 1,250 mcg PO WK 12/16/22 12/16/22 History mcg (50,000 unit) capsule clozapine 100 mg tablet 300 mg PO HS 12/16/22 12/16/22 History clozapine 25 mg tablet 50 mg PO QAM 12/16/22 12/16/22 History lisinopril 20 mg tablet 20 mg PO QAM 12/16/22 12/16/22 History omeprazole 40 mg capsule,delayed 40 mg PO HS 12/16/22 12/16/22 History release Past Med/Surg History Medical History AMS (altered mental status) Anxiety Constipation COVID-19 Dehydration Dizziness DM2 (diabetes mellitus, type 2) GERD (gastroesophageal reflux disease) Well controlled with medication Headache HLD (hyperlipidemia) Hypertension Hyponatremia Hypothyroidism Migraine Nausea Neuropathy Neuropathy Obtunded Schizophrenia Somatization disorder Unresponsive Vertigo Surgical History H/O bilateral cataract extraction H/O brain surgery "abt 1970 R parietal exploration for benign lesion" H/O cystoscopy H/O foot surgery History of cataract surgery History of colonoscopy History of craniotomy 1969, IN [place] D/T HEADACHE---FOLLOWS W DR. MICHAEL History of tonsillectomy History of tooth extraction WISDOM TEETH S/P foot surgery, left X2 S/P foot surgery, right X2 Family History Grandmother Family history of diabetes mellitus PATERNAL Family/Other Family history of diabetes mellitus UNCLE Father Parkinson disease Mother CHF (congestive heart failure) Social History Smoking Status: Never smoker Second Hand Exposure: Yes (FATHER SMOKED); Do You Dip or Chew Tobacco: No; Hx Alcohol Use: No Hx Substance Use: No Preferred Language: Surinamese Communication Ability: Effective Recordings Librarian Required: No Beliefs That Will Affect Care: None marital status: Single Current Living Situation: Alone How many Children do You have: 0 Feels Safe at Home: Yes Safety Concerns: Feels Safe At This Time Assistive Devices: Walker Review of Systems Review of Systems: As per HPI, all other systems reviewed and negative Physical Exam Physical Exam: GENERAL: Uncomfortable, oriented to day, chronically ill, no respiratory di stress SKIN: Pallor, warm HEENT: Pale palpebral conjunctivae, no ptosis, dry buccal mucosa NECK : Supple, no tenderness CHEST : Decreased breath sounds, no tenderness HEART : RRR, no obvious murmurs ABDOMEN: Some distention, minimal hypogastric tenderness EXTREMITIES : No LE swelling/tenderness, no other conspicuous deformities noted NEUROLOGIC : Coherent, no facial asymmetry, gait and stance not assessed Results & Data Results & Data Vital Signs (Past 12 Hours) Vital Signs Temp Pulse Pulse Resp BP BP Pulse Ox 12/16/22 04:17 61 12/16/22 05:00 61 16 196/97 H 99 12/16/22 04:00 65 15 168/88 H 99 12/16/22 03:00 67 16 158/77 H 98 12/16/22 02:30 67 16 169/81 H 98 12/16/22 02:00 64 16 188/108 H 100 12/16/22 00:11 65 12/16/22 00:19 36.7 C 64 20 189/89 H 100 O2 Del Method 12/16/22 04:17 12/16/22 05:00 Room Air 12/16/22 04:00 Room Air 12/16/22 03:00 Room Air 12/16/22 02:30 Room Air 12/16/22 02:00 Room Air 12/16/22 00:11 12/16/22 00:19 Room Air Laboratory Results Laboratory Results WBC 5.60 K/ul (4.8-10.8) 12/16/22 01:20 RBC 3.77 M/uL (4.20-5.40) L 12/16/22 01:20 Hgb 11.3 g/dl (12.0-16.0) L 12/16/22 01:20 Hct 34.1 % (37.0-47.0) L 12/16/22 01:20 MCV 90.5 fL (80.0-100.0) 12/16/22 01:20 MCH 30.0 pg (25.0-34.0) 12/16/22 01:20 MCHC 33.1 g/dL (32.0-36.0) 12/16/22 01:20 RDW Std Deviation 50.1 fL (36.4-46.3) H 12/16/22 01:20 RDW Coeff of Cyn 15.0 % (11.5-14.5) H 12/16/22 01:20 Plt Count 170 K/uL (130-400) 12/16/22 01:20 MPV 10.3 fL (9.4-12.4) 12/16/22 01:20 Immature Gran % (Auto) 0.4 % 12/16/22 01:20 Neut % (Auto) 53.6 % 12/16/22 01:20 Lymph % (Auto) 30.5 % 12/16/22 01:20 [place] % (Auto) 12.5 % 12/16/22 01:20 Eos % (Auto) 2.1 % 12/16/22 01:20 Baso % (Auto) 0.9 % 12/16/22 01:20 Neut # (Auto) 3.00 K/uL (1.40-6.50) 12/16/22 01:20 Lymph # (Auto) 1.71 K/uL (1.2-3.4) 12/16/22 01:20 [place] # (Auto) 0.70 K/uL (0.11-0.59) H 12/16/22 01:20 Eos # (Auto) 0.12 K/uL (0-0.50) 12/16/22 01:20 Baso # (Auto) 0.05 K/uL (0-0.2) 12/16/22 01:20 Immature Gran # (Auto) 0.02 K/uL (0.01-0.20) 12/16/22 01:20 Sodium 139 mmol/L (136-145) 12/16/22 01:20 Potassium 3.8 mmol/L (3.5-5.1) 12/16/22 01:20 Chloride 105 mmol/L (98-107) 12/16/22 01:20 Carbon Dioxide 29 mmol/L (21-32) 12/16/22 01:20 Anion Gap 5 (3-11) 12/16/22 01:20 BUN 12 mg/dl (6-23) 12/16/22 01:20 Creatinine 0.76 mg/dl (0.6-1.2) 12/16/22 01:20 Est Cr Clr Drug Dosing 59.3 ml/min 12/16/22 01:20 Est GFR ( Amer) 90.2 ml/min 12/16/22 01:20 Est GFR (Non-Af Amer) 77.8 ml/min 12/16/22 01:20 BUN/Creatinine Ratio 15.8 (10-20) 12/16/22 01:20 Glucose 102 mg/dl (70-99(Fasting)) H 12/16/22 01:20 Calcium 9.2 mg/dl (8.6-10.3) 12/16/22 01:20 Magnesium 1.9 mg/dl (1.7-2.4) 12/16/22 01:20 Total Bilirubin 0.4 mg/dl (0.2-1.0) 12/16/22 01:20 AST 12 U/L (13-39) L 12/16/22 01:20 ALT 12 U/L (7-52) 12/16/22 01:20 Alkaline Phosphatase 59 U/L (34-104) 12/16/22 01:20 Troponin I High Sens 5.7 pg/ml (0-14) 12/16/22 01:20 Total Protein 6.0 gm/dl (6.0-8.3) 12/16/22 01:20 Albumin 3.9 gm/dl (3.4-5.0) 12/16/22 01:20 Globulin 2.1 gm/dl (2.5-4.0) L 12/16/22 01:20 Albumin/Globulin Ratio 1.9 (0.9-2) 12/16/22 01:20 Lipase 11 U/L (11-82) 12/16/22 01:20 TSH 1.507 uIu/ml (0.300-4.500) 12/16/22 01:20 SARS-CoV-2, RNA, NAAT NEGATIVE (NEGATIVE) 12/16/22 01:10 Diagnostic Findings EKG as per my interpretation : Rate 60, NSR, normal axis, T wave abnormality septal leads
[2022-12-16] MEDS ORDERED: ACETAMINOPHEN 325 MG TAB PO STA (05:39)
[2022-12-16] MEDS ORDERED: PROMETHAZINE HCL 6.25 MG in SODIUM CHLORIDE 0.9% 50 ML IV PRN (05:41)
[2022-12-16] MEDS ORDERED: HYDROCODONE/ACETAMOPHEN 5/325MG TAB PO PRN (05:41)
--- NOTE | 2022-12-16 07:33 | CT Scan Report ---
Exam(s): CT ABDOMEN + PELVIS With Contrast IV Amt: 94ML OF OPTIRAY 320 EXAM: CT Abdomen and Pelvis With Intravenous Contrast CLINICAL HISTORY: Reason for exam: abd pain, UTI. TECHNIQUE: Axial computed tomography images of the abdomen and pelvis with intravenous contrast. CTDI is 10.28 mGy and DLP is 518.42 mGy-cm. Automated exposure control was utilized for the study. A dose lowering technique was utilized adhering to the principles of ALARA. CONTRAST: Patient received 94ML OF OPTIRAY 320 of IV contrast COMPARISON: CT abdomen pelvis performed 12/13/22 FINDINGS: Lung bases: Unremarkable. No mass. No consolidation. ABDOMEN: Liver: Mild periportal edema, unchanged. Gallbladder and bile ducts: No calcified stones. No ductal dilation. Pancreas: Unremarkable. No mass. No ductal dilation. Spleen: Unremarkable. No splenomegaly. Adrenals: Unremarkable. No mass. Kidneys and ureters: Mild bilateral hydronephrosis and enhancement of the ureter suggestive of ureteritis/ascending UTI. No definite evidence of pyelonephritis at this time. Stomach and bowel: Marked fecal stasis throughout the colon unchanged. No obstruction. PELVIS: Appendix: No findings to suggest acute appendicitis. Bladder: Grossly unchanged appearance of trabeculation Wall thickening of the urinary bladder compatible with chronic outlet obstruction. As before, superimposed infection is difficult to entirely exclude and should be based on clinical suspicion. Reproductive: Unremarkable as visualized. ABDOMEN and PELVIS: Intraperitoneal space: No free air. No significant fluid collection. Bones/joints: No acute fracture. No dislocation. Soft tissues: Mild inflammatory change along the bilateral hips, left greater than right, correlate with history of recent fall. Vasculature: Moderate atherosclerosis. No abdominal aortic aneurysm. Lymph nodes: No enlarged lymph nodes. IMPRESSION: Grossly unchanged appearance of trabeculation and wall thickening of the urinary bladder compatible with chronic outlet obstruction. As before, superimposed infection is difficult to entirely exclude and should be based on clinical suspicion. Mild bilateral hydronephrosis and enhancement of the ureter suggestive of ureteritis/ascending UTI. No definite evidence of pyelonephritis at this time. Mild inflammatory change along the bilateral hips, left greater than right, correlate with history of recent fall. Electronically signed by: Al Mccormack M.D. 12/16/22 07:32 AM
[2022-12-16] MEDS ORDERED: GLUCOSE 40% GEL 15 GM TUBE PO PRN (08:22)
[2022-12-16] MEDS ORDERED: GLUCOSE 10 TAB/TUBE PO PRN (08:22)
[2022-12-16] MEDS ORDERED: DEXTROSE 50% 50 ML SYRINGE IV PRN (08:22)
[2022-12-16] MEDS ORDERED: GLUCAGON FOR INJ 1 MG VIAL SQ PRN (08:22)
[2022-12-16] MEDS ORDERED: CARBOHYDRATES FOR HYPOGLYCEMIA PO PRN (08:22)
[2022-12-16] MEDS ORDERED: POLYETHYLENE (MIRALAX) 17 GM PACK PO PRN (08:22)
[2022-12-16] MEDS ORDERED: NON-FORMULARY MEDICATION (Riboflavin (Vitamin B2) 400 mg tablet) PO SCH (09:00)
[2022-12-16] MEDS ORDERED: ENOXAPARIN INJ 30 MG/0.3 ML SYR SQ SCH (09:00)
[2022-12-16 09:17] LABS: Estimated Average Glucose 126 mg/dl
[2022-12-16] MEDS: INSULIN ASPART PER UNIT CHARGE SC SCH ×4 (10:46→20:52)
[2022-12-16] MEDS: ASPIRIN 81 MG CHEW PO SCH (10:48)
[2022-12-16] MEDS: DOCUSATE SODIUM 100 MG CAP PO SCH ×2 (10:49→20:51)
[2022-12-16] MEDS: CYANOCOBALAMIN (B-12) 500 MCG TABLET PO SCH (10:49)
[2022-12-16] MEDS: cloZAPine 25 MG TAB PO SCH (10:49)
[2022-12-16] MEDS: FLUTICASONE PROPIONATE NA SPR 16 GM BTL SCH (10:50)
[2022-12-16] MEDS: DULoxetine HCL 60 MG CAP PO SCH (10:50)
[2022-12-16] MEDS: LEVOTHYROXINE SODIUM 50 MCG TABLET PO SCH (10:51)
[2022-12-16] MEDS: GABAPENTIN 100 MG CAP PO SCH ×2 (10:51→14:08)
[2022-12-16] MEDS: MAGNESIUM OXIDE 400 MG TAB PO SCH (10:51)
[2022-12-16] MEDS: METOPROLOL SUCC 50MG EXT REL TAB PO SCH (10:52)
--- NOTE | 2022-12-16 13:23 | Electrocardiogram Report ---
Test Reason : Blood Pressure : / mmHG Vent. Rate : 061 BPM Atrial Rate : 061 BPM P-R Int : 140 ms QRS Dur : 076 ms QT Int : 432 ms P-R-T Axes : 078 016 003 degrees QTc Int : 434 ms Normal sinus rhythm Nonspecific T wave abnormality Abnormal ECG When compared with ECG of 15-DEC-2022 11:13, No significant change was found Confirmed by Austin Barry ([id number]) on 12/16/2022 1:23:17 PM Referred By: REFERRED SELF Confirmed By:Austin Barry
[2022-12-16] MEDS: AZTREONAM 2,000 MG in DEXTROSE 5% 100 ML IV SCH ×2 (14:08→22:59)
[2022-12-16] MEDS: ACETAMINOPHEN 325 MG TAB PO PRN ×2 (14:12→22:15)
--- NOTE | 2022-12-16 14:32 | Hospitalist Progress Note ---
Date of Service December 16, 2022 Assessment & Plan (1) Hypertensive crisis: Plan: Secondary to complicated UTI Recurrent disease History bladder diverticulum as per records -- BP improving -- CT abd/pelvis: Grossly unchanged appearance of trabeculation and wall thickening of the urinary bladder compatible with chronic outlet obstruction. As before, superimposed infection is difficult to entirely exclude and should be based on clinical suspicion. Mild bilateral hydronephrosis and enhancement of the ureter suggestive of ureteritis/ascending UTI. No definite evidence of pyelonephritis at this time. Mild inflammatory change along the bilateral hips, left greater than right, correlate with history of recent fall. - Urine culture 12/13: E coli - repeat Urine culture: gram negative bacilli Blood culture: pending - continue IV Aztreonam hypertension, slightly elevated improving continue Lisinopril, Metoprolol hypothyroidism, euthyroid as of today's TSH hyperlipidemia on statin Rx DM2 on oral meds, well-controlled as of recent hemoglobin A1c of 5.6 last July 2022 history of brain tumor status post partial surgery years ago (unknown pathology) hx somatization disorder chronic anemia, stable DVT prophylaxis. Lovenox subcu Full code Disposition pending PT/OT eval Admission and Anticipated Discharge Date Admission Date: December 16, 2022 Subjective seen with VENKAT Farley throughout whole encounter ff up for UTI, etc seen resting in bed, comfortable oriented x 2, answers questions appropriately feels improved, less lower abdominal pain, still has some urgency no flank/back pain no fever/chills no chest pain, dyspnea, palpitations, dizziness no other symptoms Review of Systems Review of Systems: all noted and negative except for above Physical Exam Physical Exam: General- oriented x 2, not in distress, speaks in sentences with no effort or accessory muscle use Eyes- anicteric Neck- no JVD Lungs- clear breath sounds bilaterally, no rales/wheezes Heart- normal rate, regular rhythm; no murmurs Abdomen- normal bowel sounds, nondistended, soft, mild suprapubic tenderness no CVA tenderness Extremities- no pretibial edema, no calf tenderness Neuro- alert, oriented x 2; no gross focal neurologic deficits Skin- warm & dry Results & Data Results & Data Vital Signs (Past 12 Hours) Vital Signs Temp Pulse Pulse Resp BP BP Pulse Ox 12/16/22 11:50 72 14 146/76 H 100 12/16/22 11:00 36.3 C L 69 14 192/86 H 100 12/16/22 08:15 36.3 C L 65 18 181/74 H 180/74 H 100 12/16/22 07:50 61 20 176/97 H 98 12/16/22 07:00 59 L 16 154/72 H 99 12/16/22 06:30 60 14 152/77 H 100 12/16/22 06:00 64 15 143/63 H 99 12/16/22 05:30 63 15 186/90 H 99 12/16/22 04:17 61 12/16/22 05:00 61 16 196/97 H 99 12/16/22 04:00 65 15 168/88 H 99 12/16/22 03:00 67 16 158/77 H 98 12/16/22 02:30 67 16 169/81 H 98 O2 Del Method 12/16/22 11:50 Room Air 12/16/22 11:00 Room Air 12/16/22 08:15 Room Air 12/16/22 07:50 12/16/22 07:00 12/16/22 06:30 Room Air 12/16/22 06:00 Room Air 12/16/22 05:30 Room Air 12/16/22 04:17 12/16/22 05:00 Room Air 12/16/22 04:00 Room Air 12/16/22 03:00 Room Air 12/16/22 02:30 Room Air all noted and reviewed including below
[2022-12-16] MEDS: ATORVASTATIN 20 MG TAB PO SCH (20:51)
[2022-12-16] MEDS: cloZAPine 100 MG TAB PO SCH (20:51)
[2022-12-16] MEDS: PANTOprazole 40 MG TAB PO SCH (20:51)
[2022-12-16] MEDS: LORATADINE 10 MG TAB PO SCH (20:52)
[2022-12-17] MEDS: LEVOTHYROXINE SODIUM 50 MCG TABLET PO SCH (05:17)
[2022-12-17] MEDS: AZTREONAM 2,000 MG in DEXTROSE 5% 100 ML IV SCH ×3 (05:17→20:31)
[2022-12-17 05:35] LABS: Basophils # (auto) 0.03 K/uL (0-0.2); Basophils % (auto) 0.7 %; Eosinophils # (auto) 0.02 K/uL (0-0.50); Eosinophils % (auto) 0.4 %; Hemoglobin 10.3 g/dl (12.0-16.0); Immature Granulocytes # (auto) 0.01 K/uL (0.01-0.20); Immature Granulocytes % (auto) 0.2 %; Lymphocytes % (auto) 37.9 %; Mean Corpuscular Hemoglobin 29.7 pg (25.0-34.0); Mean Corpuscular Hgb Conc 33.2 g/dL (32.0-36.0); Mean Corpuscular Volume 89.3 fL (80.0-100.0); Mean Platelet Volume 10.3 fL (9.4-12.4); Monocytes # (auto) 0.46 K/uL (0.11-0.59); Monocytes % (auto) 10.3 %; Neutrophils # (auto) 2.26 K/uL (1.40-6.50); Neutrophils % (auto) 50.5 %; Platelet Count 175 K/uL (130-400); RDW Coefficient of Variation 15.3 % (11.5-14.5); RDW Standard Deviation 50.1 fL (36.4-46.3); Red Blood Count 3.47 M/uL (4.20-5.40); White Blood Count 4.48 K/ul (4.8-10.8)
[2022-12-17 05:52] LABS: BUN Creatinine Ratio 28.3 (10-20); Calcium 8.5 mg/dl (8.6-10.3); Creatinine Clr Calc Pharmacy 75.1 ml/min; Est GFR (African American) 104.8 ml/min; Est GFR (Non-African American) 90.4 ml/min; Potassium 3.8 mmol/L (3.5-5.1)
[2022-12-17] MEDS: INSULIN ASPART PER UNIT CHARGE SC SCH ×4 (09:11→23:32)
[2022-12-17] MEDS: ASPIRIN 81 MG CHEW PO SCH (09:11)
[2022-12-17] MEDS: CYANOCOBALAMIN (B-12) 500 MCG TABLET PO SCH (09:12)
[2022-12-17] MEDS: cloZAPine 25 MG TAB PO SCH (09:12)
[2022-12-17] MEDS: ENOXAPARIN INJ 40 MG/0.4 ML SYR SQ SCH (09:12)
[2022-12-17] MEDS: DOCUSATE SODIUM 100 MG CAP PO SCH ×2 (09:12→20:30)
[2022-12-17] MEDS: DULoxetine HCL 60 MG CAP PO SCH (09:12)
[2022-12-17] MEDS: lisinopril 20 MG TAB PO SCH (09:13)
[2022-12-17] MEDS: FLUTICASONE PROPIONATE NA SPR 16 GM BTL SCH (09:13)
[2022-12-17] MEDS: GABAPENTIN 100 MG CAP PO SCH ×2 (09:13→13:48)
[2022-12-17] MEDS: MAGNESIUM OXIDE 400 MG TAB PO SCH (09:14)
[2022-12-17] MEDS: METOPROLOL SUCC 50MG EXT REL TAB PO SCH (09:14)
--- NOTE | 2022-12-17 14:04 | Hospitalist Progress Note ---
Date of Service December 17, 2022 Assessment & Plan (1) Hypertensive crisis: Plan: Secondary to complicated UTI Recurrent disease History bladder diverticulum as per records -- BP improving -- CT abd/pelvis: Grossly unchanged appearance of trabeculation and wall thickening of the urinary bladder compatible with chronic outlet obstruction. As before, superimposed infection is difficult to entirely exclude and should be based on clinical suspicion. Mild bilateral hydronephrosis and enhancement of the ureter suggestive of ureteritis/ascending UTI. No definite evidence of pyelonephritis at this time. Mild inflammatory change along the bilateral hips, left greater than right, correlate with history of recent fall. - Urine culture 12/13: E coli - repeat Urine culture: E coli Blood culture: negative - continue IV Aztreonam Day 2 Hypertension, slightly elevated improving continue Lisinopril, Metoprolol hypothyroidism, euthyroid as of today's TSH hyperlipidemia on statin Rx DM2 on oral meds, well-controlled as of recent hemoglobin A1c of 5.6 last July 2022 history of brain tumor status post partial surgery years ago (unknown pathology) hx somatization disorder chronic anemia, stable DVT prophylaxis. Lovenox subcu Full code Disposition pending PT/OT eval Admission and Anticipated Discharge Date Admission Date: December 16, 2022 Subjective ff up for UTI etc seen resting in bed, comfortable states she feels fine overall denies abdominal pain, nausea, fever/chills no other symptoms Review of Systems Review of Systems: all noted and negative except for above Physical Exam Physical Exam: General- oriented x 1-2, not in distress, speaks in sentences with no effort or accessory muscle use Eyes- anicteric Neck- no JVD Lungs- clear breath sounds bilaterally, Heart- normal rate, regular rhythm; no murmurs Abdomen- normal bowel sounds, nondistended, soft, nontender Extremities- no pretibial edema, no calf tenderness Neuro- alert, oriented x 1-2; no gross focal neurologic deficits Skin- warm & dry Results & Data Results & Data Vital Signs (Past 12 Hours) Vital Signs Temp Pulse Resp BP BP Pulse Ox O2 Del Method 12/17/22 12:06 36.6 C 63 18 155/75 H 99 Room Air 12/17/22 08:10 36.6 C 59 L 18 146/72 H 97 Room Air 12/17/22 03:00 36.6 C 63 18 169/85 H 98 Room Air all noted and reviewed including below
[2022-12-17] MEDS: cloZAPine 100 MG TAB PO SCH (20:29)
[2022-12-17] MEDS: LORATADINE 10 MG TAB PO SCH (20:29)
[2022-12-17] MEDS: ATORVASTATIN 20 MG TAB PO SCH (20:30)
[2022-12-17] MEDS: PANTOprazole 40 MG TAB PO SCH (20:30)
[2022-12-18] MEDS: AZTREONAM 2,000 MG in DEXTROSE 5% 100 ML IV SCH (05:33)
[2022-12-18] MEDS: LEVOTHYROXINE SODIUM 50 MCG TABLET PO SCH (05:33)
[2022-12-18] MEDS: INSULIN ASPART PER UNIT CHARGE SC SCH ×4 (08:31→21:17)
[2022-12-18] MEDS: CYANOCOBALAMIN (B-12) 500 MCG TABLET PO SCH (08:35)
[2022-12-18] MEDS: cloZAPine 25 MG TAB PO SCH (08:35)
[2022-12-18] MEDS: ASPIRIN 81 MG CHEW PO SCH (08:35)
[2022-12-18] MEDS: DULoxetine HCL 60 MG CAP PO SCH (08:36)
[2022-12-18] MEDS: ENOXAPARIN INJ 40 MG/0.4 ML SYR SQ SCH (08:36)
[2022-12-18] MEDS: FLUTICASONE PROPIONATE NA SPR 16 GM BTL SCH (08:37)
[2022-12-18] MEDS: lisinopril 20 MG TAB PO SCH (08:37)
[2022-12-18] MEDS: GABAPENTIN 100 MG CAP PO SCH ×2 (08:37→13:24)
[2022-12-18] MEDS: METOPROLOL SUCC 50MG EXT REL TAB PO SCH (08:38)
[2022-12-18] MEDS: MAGNESIUM OXIDE 400 MG TAB PO SCH (08:38)
[2022-12-18] MEDS: DOCUSATE SODIUM 100 MG CAP PO SCH ×2 (08:40→21:17)
[2022-12-18] MEDS: CEFDINIR 300 MG CAP PO SCH ×2 (10:39→21:14)
--- NOTE | 2022-12-18 11:14 | Hospitalist Progress Note ---
Date of Service December 18, 2022 Assessment & Plan (1) Hypertensive crisis: Plan: Secondary to complicated UTI Recurrent disease History bladder diverticulum as per records -- BP improving -- CT abd/pelvis: Grossly unchanged appearance of trabeculation and wall thickening of the urinary bladder compatible with chronic outlet obstruction. As before, superimposed infection is difficult to entirely exclude and should be based on clinical suspicion. Mild bilateral hydronephrosis and enhancement of the ureter suggestive of ureteritis/ascending UTI. No definite evidence of pyelonephritis at this time. Mild inflammatory change along the bilateral hips, left greater than right, correlate with history of recent fall. - Urine culture 12/13: E coli - repeat Urine culture: E coli Blood culture: negative -Patient received 2 days of IV aztreonam, transition to cefdinir 3 mg p.o. twice daily x3 days to complete 5-day course PT and OT evaluation today Hypertension, slightly elevated BP still not at goal Increase lisinopril to 30 mg p.o. daily continue Metoprolol hypothyroidism, euthyroid hyperlipidemia on statin Rx DM2 on oral meds, well-controlled as of recent hemoglobin A1c of 5.6 last July 2022 history of brain tumor status post partial surgery years ago (unknown pathology) hx somatization disorder chronic anemia, stable DVT prophylaxis. Lovenox subcu Full code Disposition pending PT/OT eval Lives at home with caregiver Admission and Anticipated Discharge Date Admission Date: December 16, 2022 Subjective Follow-up for UTI, etc. Seen resting in bed, comfortable, sleeping but easily awakened States that she feels fine overall Denies urinary symptoms, pain No other new symptoms Review of Systems Review of Systems: all noted and negative except for above Physical Exam Physical Exam: General- oriented x 2, not in distress, speaks in sentences with no effort or accessory muscle use Eyes- anicteric Neck- no JVD Lungs- clear breath sounds bilaterally, no crackles Heart- normal rate, regular rhythm; no murmurs Abdomen- normal bowel sounds, nondistended, soft, nontender Extremities- no pretibial edema, no calf tenderness Neuro- alert, oriented x 2; no gross focal neurologic deficits Skin- warm & dry Results & Data Results & Data Vital Signs (Past 12 Hours) Vital Signs Temp Pulse Pulse Resp BP Pulse Ox O2 Del Method 12/18/22 08:00 54 L 12/18/22 08:03 36.3 C L 55 L 20 148/72 H 98 Room Air 12/18/22 03:00 36.7 C 57 L 16 178/81 H 94 Room Air all noted and reviewed including below
[2022-12-18] MEDS: LORATADINE 10 MG TAB PO SCH (21:14)
[2022-12-18] MEDS: cloZAPine 100 MG TAB PO SCH (21:14)
[2022-12-18] MEDS: PANTOprazole 40 MG TAB PO SCH (21:15)
[2022-12-18] MEDS: ATORVASTATIN 20 MG TAB PO SCH (21:15)
[2022-12-18] MEDS: ACETAMINOPHEN 325 MG TAB PO PRN (23:18)
[2022-12-19] MEDS: LEVOTHYROXINE SODIUM 50 MCG TABLET PO SCH (04:38)
[2022-12-19] MEDS: INSULIN ASPART PER UNIT CHARGE SC SCH ×2 (08:32→12:09)
[2022-12-19] MEDS: ENOXAPARIN INJ 40 MG/0.4 ML SYR SQ SCH (08:32)
[2022-12-19] MEDS: CYANOCOBALAMIN (B-12) 500 MCG TABLET PO SCH (08:34)
[2022-12-19] MEDS: cloZAPine 25 MG TAB PO SCH (08:34)
[2022-12-19] MEDS: METOPROLOL SUCC 50MG EXT REL TAB PO SCH (08:35)
[2022-12-19] MEDS: CEFDINIR 300 MG CAP PO SCH (08:35)
[2022-12-19] MEDS: DULoxetine HCL 60 MG CAP PO SCH (08:35)
[2022-12-19] MEDS: GABAPENTIN 100 MG CAP PO SCH ×2 (08:36→13:22)
[2022-12-19] MEDS: FLUTICASONE PROPIONATE NA SPR 16 GM BTL SCH (08:36)
[2022-12-19] MEDS: MAGNESIUM OXIDE 400 MG TAB PO SCH (08:36)
[2022-12-19] MEDS: ASPIRIN 81 MG CHEW PO SCH (08:40)
[2022-12-19] MEDS: DOCUSATE SODIUM 100 MG CAP PO SCH (08:40)
[2022-12-19] MEDS ORDERED: lisinopril 10 MG TAB PO SCH (09:00)
--- NOTE | 2022-12-19 10:05 | Hospitalist Progress Note ---
Date of Service December 19, 2022 Assessment & Plan (1) Hypertensive crisis: Plan: Secondary to complicated UTI Recurrent disease History bladder diverticulum as per records -- CT abd/pelvis: Grossly unchanged appearance of trabeculation and wall thickening of the urinary bladder compatible with chronic outlet obstruction. As before, superimposed infection is difficult to entirely exclude and should be based on clinical suspicion. Mild bilateral hydronephrosis and enhancement of the ureter suggestive of ureteritis/ascending UTI. No definite evidence of pyelonephritis at this time. Mild inflammatory change along the bilateral hips, left greater than right, correlate with history of recent fall. - Urine culture 12/13: E coli - repeat Urine culture: E coli Blood culture: negative -Patient received 2 days of IV aztreonam, transition to cefdinir 3 mg p.o. twice daily x3 days to complete 5-day course PT and OT evaluation: recommend Acute Rehab Hypertension, slightly elevated BP still not at goal Increase lisinopril to 30 mg p.o. daily continue Metoprolol hypothyroidism, euthyroid hyperlipidemia on statin Rx DM2 on oral meds, well-controlled as of recent hemoglobin A1c of 5.6 last July 2022 history of brain tumor status post partial surgery years ago (unknown pathology) hx somatization disorder chronic anemia, stable DVT prophylaxis. Lovenox subcu Full code Disposition d/c to Acute Rehab Admission and Anticipated Discharge Date Admission Date: December 16, 2022 Subjective ff up for uti, etc seen resting in bed, comfortable alert, pleasant states she feels fine overall no abdomina pain ,nausea/vomiting, urinary symptoms no chest pain, dyspnea, palpitations, dizziness no other symptoms Review of Systems Review of Systems: all noted and negative except for above Physical Exam Physical Exam: General- oriented x 1-2, not in distress, speaks in sentences with no effort or accessory muscle use Eyes- anicteric Neck- no JVD Lungs- clear breath sounds bilaterally Heart- normal rate, regular rhythm; no murmurs Abdomen- normal bowel sounds, nondistended, soft, nontender Extremities- no pretibial edema, no calf tenderness Neuro- alert, oriented x 1-2; no gross focal neurologic deficits Skin- warm & dry Results & Data Results & Data Vital Signs (Past 12 Hours) Vital Signs Temp Pulse Pulse Resp BP Pulse Ox O2 Del Method 12/19/22 08:00 59 L 12/19/22 07:56 36.4 C L 58 L 20 182/79 H 99 Room Air 12/19/22 03:47 36.4 C L 61 16 133/73 96 Room Air 12/18/22 23:11 36.9 C 56 L 17 170/80 H 98 Room Air all noted and reviewed including below
--- NOTE | 2022-12-19 10:14 | Discharge Summary ---
Discharge Summary Date of Service December 19, 2022 Notes For Next Care Provider Medication Changes From Visit Cefdinir 300 mg p.o. twice daily-for UTI Lisinopril increased from 20 mg to 30 mg p.o. daily Admission HPI Per Admitting Provider History obtained from patient and records. Medical history significant for hypertension, hypothyroidism, hyperlipidemia, DM2 on oral meds, history of brain tumor status post partial surgery years ago (unknown pathology), somatization disorder, schizophrenia, history of migraine, chronic anemia (baseline hemoglobin of 10-11), recurrent UTIs, urinary incontinence, urinary bladder diverticulum as per records. Last confinement August 2022 for encephalopathy attributed to polypharmacy and hyponatremia. Patient discharged to [facility] facility prior to going home with caregiver. Few days ago, patient noted by caregiver to have altered mental status, slumped over forward with some shuffling of the feet. Caregiver concerned about dehydration, patient not drinking enough. Patient complaining of usual headache symptoms. Denies chest pain, SOB, abdominal pain. Patient evaluated at the ER. Patient requested to go home. Patient sent home on Macrobid course for possible UTI after getting initial dose of the ER. Increasing weakness at home with achy lower abdominal pain. Patient returned to the ER. SBP currently 190s. MEDICAL HISTORY: As above. SURGICAL HISTORY: partial benign brain tumor surgery, foot surgery, cystoscopy, hysteroscopy with biopsy, cataract surgeries FAMILY HISTORY: DM, Breast cancer, heart disease PERSONAL AND SOCIAL HISTORY: Nonsmoker. No chronic intake of alcoholic beverages. She is on disability. Lives with caregiver. Admission Exam Per Admitting Provider General- oriented x 1-2, not in distress, speaks in sentences with no effort or accessory muscle use Eyes- anicteric Neck- no JVD Lungs- clear breath sounds bilaterally Heart- normal rate, regular rhythm; no murmurs Abdomen- normal bowel sounds, nondistended, soft, nontender Extremities- no pretibial edema, no calf tenderness Neuro- alert, oriented x 1-2; no gross focal neurologic deficits Skin- warm & dry Principal Dx & Hospital Course #1 = Principal Diagnosis (1) Hypertensive crisis: Secondary to complicated UTI Recurrent disease History bladder diverticulum as per records -- CT abd/pelvis: Grossly unchanged appearance of trabeculation and wall thickening of the urinary bladder compatible with chronic outlet obstruction. As before, superimposed infection is difficult to entirely exclude and should be based on clinical suspicion. Mild bilateral hydronephrosis and enhancement of the ureter suggestive of ureteritis/ascending UTI. No definite evidence of pyelonephritis at this time. Mild inflammatory change along the bilateral hips, left greater than right, correlate with history of recent fall. - Urine culture 12/13: E coli - repeat Urine culture: E coli Blood culture: negative -Patient received 2 days of IV aztreonam, transition to cefdinir 3 mg p.o. twice daily x 5 days to complete 5-day course PT and OT evaluation: recommend Acute Rehab Hypertension, slightly elevated BP still not at goal Increase lisinopril to 30 mg p.o. daily continue Metoprolol hypothyroidism, euthyroid hyperlipidemia on statin Rx DM2 on oral meds, well-controlled as of recent hemoglobin A1c of 5.6 last July 2022 history of brain tumor status post partial surgery years ago (unknown pathology) hx somatization disorder chronic anemia, stable DVT prophylaxis. Lovenox subcu Full code Disposition d/c to Acute Rehab Discharge Exam General- oriented x 1-2, not in distress, speaks in sentences with no effort or accessory muscle use Eyes- anicteric Neck- no JVD Lungs- clear breath sounds bilaterally Heart- normal rate, regular rhythm; no murmurs Abdomen- normal bowel sounds, nondistended, soft, nontender Extremities- no pretibial edema, no calf tenderness Neuro- alert, oriented x 1-2; no gross focal neurologic deficits Skin- warm & dry Updated Medication List Medication Instructions Recorded Confirmed Type duloxetine 60 mg capsule,delayed 60 mg PO QAM 04/14/18 12/16/22 History release (Cymbalta) levothyroxine 50 mcg tablet 50 mcg PO DAILYBB 04/14/18 12/16/22 History (Synthroid) loratadine 10 mg tablet (Claritin) 10 mg PO HS 03/25/19 12/16/22 History magnesium oxide 400 mg PO QAM 03/25/19 12/16/22 History atorvastatin 20 mg tablet 20 mg PO PM 11/22/19 12/16/22 History sumatriptan succinate 100 mg tablet 100 mg PO DAILY PRN Headache 11/22/19 12/16/22 History metformin 500 mg tablet 500 mg PO QAM 02/24/21 12/16/22 History riboflavin (vitamin B2) 400 mg 400 mg PO QAM 02/24/21 12/16/22 History tablet metoprolol succinate 50 mg 50 mg PO QAM 04/15/21 12/16/22 History tablet,extended release 24 hr cyanocobalamin (vitamin B-12) 1,000 mcg PO DAILY 05/17/21 12/16/22 History 1,000 mcg tablet (Vitamin B-12) iron,carbonyl 65 mg-vitamin C 125 1 tab PO DAILY 05/17/21 12/16/22 History mg tablet,delayed release (Vitron-C) fluticasone propionate 50 2 spray intranasal DAILY 07/13/21 12/16/22 History mcg/actuation nasal spray,suspension (Flonase Allergy Relief) loperamide 2 mg capsule 2 mg PO QID PRN Diarrhea 07/13/21 12/16/22 History meclizine 25 mg tablet 25 mg PO .Q5HRS PRN DIZZY 07/13/21 12/16/22 History ondansetron 4 mg disintegrating 4 mg PO Q8H PRN Nausea 07/13/21 12/16/22 History tablet aspirin 81 mg chewable tablet 81 mg PO DAILY 05/12/22 12/16/22 History (Aspirin Childrens) acetaminophen 325 mg tablet 650 mg PO Q4 PRN pain 1-3 07/13/22 12/16/22 History docusate sodium 100 mg capsule 100 mg PO BID 07/13/22 12/16/22 History (Colace) magnesium hydroxide 400 mg/5 mL 30 ml PO Q6H PRN constipation #355 07/20/22 12/16/22 Rx oral suspension (Milk of Magnesia) mL polyethylene glycol 3350 17 17 g PO DAILY PRN constipation 07/22/22 12/16/22 Rx gram/dose oral powder (Miralax) #238 grams gabapentin 100 mg capsule 100 mg PO UD 09/01/22 12/16/22 History ciprofloxacin HCl 500 mg tablet 500 mg PO BID #20 tabs 12/13/22 12/16/22 Rx (Cipro) nitrofurantoin 100 mg PO BID 6 days #12 caps 12/15/22 12/16/22 Rx monohydrate/macrocrystals 100 mg capsule (Macrobid) cholecalciferol (vitamin D3) 1,250 1,250 mcg PO WK 12/16/22 12/16/22 History mcg (50,000 unit) capsule clozapine 100 mg tablet 300 mg PO HS 12/16/22 12/16/22 History clozapine 25 mg tablet 50 mg PO QAM 12/16/22 12/16/22 History lisinopril 20 mg tablet 20 mg PO QAM 12/16/22 12/16/22 History omeprazole 40 mg capsule,delayed 40 mg PO HS 12/16/22 12/16/22 History release cefdinir 300 mg capsule 300 mg PO BID 4 days #8 caps 12/19/22 Rx lisinopril 10 mg tablet 30 mg PO QAM 30 days #90 tabs 12/19/22 Rx Hospital Stay Data Consultations 12/16/22 04:55 ED Decision to Admit Stat Diagnostic Imagining Performed 12/16/22 01:11 CT abd pelvis IV con only Stat COMPARISON: CT abdomen pelvis performed 12/13/22 FINDINGS: Lung bases: Unremarkable. No mass. No consolidation. ABDOMEN: Liver: Mild periportal edema, unchanged. Gallbladder and bile ducts: No calcified stones. No ductal dilation. Pancreas: Unremarkable. No mass. No ductal dilation. Spleen: Unremarkable. No splenomegaly. Adrenals: Unremarkable. No mass. Kidneys and ureters: Mild bilateral hydronephrosis and enhancement of the ureter suggestive of ureteritis/ascending UTI. No definite evidence of pyelonephritis at this time. Stomach and bowel: Marked fecal stasis throughout the colon unchanged. No obstruction. PELVIS: Appendix: No findings to suggest acute appendicitis. Bladder: Grossly unchanged appearance of trabeculation Wall thickening of the urinary bladder compatible with chronic outlet obstruction. As before, superimposed infection is difficult to entirely exclude and should be based on clinical suspicion. Reproductive: Unremarkable as visualized. ABDOMEN and PELVIS: Intraperitoneal space: No free air. No significant fluid collection. Bones/joints: No acute fracture. No dislocation. Soft tissues: Mild inflammatory change along the bilateral hips, left greater than right, correlate with history of recent fall. Vasculature: Moderate atherosclerosis. No abdominal aortic aneurysm. Lymph nodes: No enlarged lymph nodes. IMPRESSION: Grossly unchanged appearance of trabeculation and wall thickening of the urinary bladder compatible with chronic outlet obstruction. As before, superimposed infection is difficult to entirely exclude and should be based on clinical suspicion. Mild bilateral hydronephrosis and enhancement of the ureter suggestive of ureteritis/ascending UTI. No definite evidence of pyelonephritis at this time. Mild inflammatory change along the bilateral hips, left greater than right, correlate with history of recent fall. Electronically signed by: Al Mccormack M.D. 12/16/22 07:32 AM Pending Results Patient Have Any Pending Studies at Discharge: No Discharge Instructions Given to Patient (Per Discharging Provider) PLEASE REFER TO YOUR NEW MEDICATION LIST AND FOLLOW INSTRUCTIONS CAREFULLY. YOUR NEW MEDICATIONS INCLUDE: Cefdinir 300 mg p.o. twice daily-for UTI Lisinopril increased from 20 mg to 30 mg p.o. daily PLEASE REFER TO ACCOMPANYING HOSPITAL DISCHARGE SUMMARY FOR FURTHER DETAILS. Total Time Total Time Spent Total Time Spent (In Minutes): >30 minutes
== END 2022-12-19 16:53 | DRG 690 ==
LOC: ED 00:07 → 1E 05:36 → SUATTDRO 05:36 → 1E 08:00 → 4W 18:46

== ENCOUNTER 2023-05-26 12:31 | Inpatient (IN) ==
--- OUTSIDE RECORDS SUMMARY | 2023-05-26 12:50 | External Medical Summary ---
Author Name Unknown Address Unknown Organization [id number]:[facility] - [address] [place] [address] Laboratory Report Ordering Provider Test Date Status CAMERON BASS 05/15/2023 11:42:55 Final Observation Date Value Abnormality Reference (Units ) Status MYCODE SPECIMEN-LAV 05/15/2023 11:42:55 Freezing of extracted DNA, whole blood and/or serum. Final Performing Location [facility] [address] [facility] [address]
--- OUTSIDE RECORDS SUMMARY | 2023-05-26 12:50 | External Medical Summary ---
Author Name Unknown Address Unknown Organization [id number]:[facility] [place] - [address] [place] [address] Laboratory Report Ordering Provider Test Date Status CAMERON BASS 05/15/2023 11:42:55 Final Observation Date Value Abnormality Reference (Units ) Status MYCODE SPECIMEN-SST 05/15/2023 11:42:55 Freezing of extracted DNA, whole blood and/or serum. Final Performing Location [facility] [address] [facility] [address]
--- OUTSIDE RECORDS SUMMARY | 2023-05-26 12:50 | External Medical Summary ---
Author Name Unknown Address Unknown Organization [id number]:[facility] [place] [address] Laboratory Report Ordering Provider Test Date Status UMBERTO DOS SANTOS 05/15/2023 11:42:55 Final Observation Date Value Abnormality Reference (Units ) Status SYNC LEUKOCYTES IN BLOOD BY AUTOMATED COUNT 05/15/2023 11:42:55 8.52 4.00-10.80 (K/uL) Final Segs 05/15/2023 11:42:55 77.6 Above high normal 40.0-75.0 (%) Final Lymphs % 05/15/2023 11:42:55 14.3 Below low normal 18.0-42.0 (%) Final Monos 05/15/2023 11:42:55 7.5 1.0-11.0 (%) Final Eosinophils 05/15/2023 11:42:55 0.0 0.0-6.0 (%) Final Basos 05/15/2023 11:42:55 0.6 0.0-2.0 (%) Final Absolute Segs 05/15/2023 11:42:55 6.61 1.80-7.70 (K/uL) Final Lymphs, absolute 05/15/2023 11:42:55 1.22 1.00-4.80 (K/ul) Final Monos, Abs 05/15/2023 11:42:55 0.64 0.00-1.10 (K/uL) Final Eos, Abs 05/15/2023 11:42:55 0.00 0.00-0.70 (K/uL) Final Basos, Abs 05/15/2023 11:42:55 0.05 0.00-0.20 (K/uL) Final Performing Location [facility] [place] [address]
--- OUTSIDE RECORDS SUMMARY | 2023-05-26 12:50 | External Medical Summary ---
Author Name Unknown Address Unknown Organization [id number]:[facility] [place] [address] Laboratory Report Ordering Provider Test Date Status UMBERTO DOS SANTOS 05/15/2023 11:42:55 Final Observation Date Value Abnormality Reference (Units ) Status WBC, Total 05/15/2023 11:42:55 8.52 4.00-10.8 0 (K/uL) Final RBC 05/15/2023 11:42:55 3.77 3.85-5.15 (M/uL) Final Hemoglobin 05/15/2023 11:42:55 11.2 Below low normal 12 .0-15.3 (g/dL) Final HCT 05/15/2023 11:42:55 34.9 Below low normal 36. 0-45.2 (%) Final MCV 05/15/2023 11:42:55 92.6 81.5-97.5 (fL) Final MCH 05/15/2023 11:42:55 29.7 27.0-34.0 (pg) Final MCHC 05/15/2023 11:42:55 32.1 32.0-36.0 (g/dL) Final RDW 05/15/2023 11:42:55 14.6 11.5-15.5 (%) Final Platelets 05/15/2023 11:42:55 189 140-400 (K /uL) Final MPV 05/15/2023 11:42:55 9.8 6.6-11.1 ( fL) Final Performing Location [facility] [place] [address]
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
--- OUTSIDE RECORDS SUMMARY | 2023-05-26 12:50 | External Medical Summary | Summary of Care ---
Author Name Unknown Organization [facility] Address [address] [facility] [place] [address] Phone [phone] Care Team Providers Care Patrol Conductor Name Role Phone Valerio Hall DO Primary Care Provider [phone] Reason for Visit * Reason Comments eRx-Medication Refill Encounter Details Date Type Department Care Team (Late st Contact Info) Description 05/15/2023 Refill Family Practice [facility] [place] [address] [facility] [place] [address] Valerio Hall DO [address] [facility] [place] [address] Schizophrenia, chronic condition (HCC); Somatization disorder Allergies Active Allergy Reactions Criticality Noted Date Comments Cephalosporins Abdominal pain High 07/02/2000 gi upset- confusion Other reaction(s): Hallucinations Cyclobenzaprine Neuro complications (Please comment) High 12/11/2018 Other reaction(s): neuro complications Rizatriptan Benzoate 09/19/2016 vertigo Penicillins High 05/22/2019 Other reaction(s): Hives Pollen 11/07/2014 Pollen Extract High 05/22/2019 Other reaction(s): seasonal allergy Rizatriptan 05/22/2019 Other reaction(s): Unknown documented as of this encounter (statuses as of 05/16/2023) Medications Medication Sig Dispensed Refills Start Date End Date Status Glucose Blood (ONE TOUCH ULTRA TEST) STRP Use one strip 2 times a day to check blood sugars. Diagnosis code 250.00 200 Strip 5 06/17/201 5 Active acetaminophen (TYLENOL) 500 MG/5ML oral liquid Take 5 mL by mouth every 4 hours as needed for Fever or Pain. 1 Bottle 3 7 Active ONETOUCH ULTRASOFT LANCETS [facility] Use to check blood sugar daily as needed for signs/symptoms of high/low blood sugar. Dx E11.9 100 Each 3 9 Active MEDICAL INSTRUCTIONSIndicat ions:Refill clinic medication management patient Nurse to fill medication dispenser bi-weekly. 1 Each 0 9 Active meclizine (ANTIVERT) 25 MG TabletIndications:B PPV (benign paroxysmal positional vertigo), right TAKE 1 TABLET EVERY 5 HOURS NEEDED FOR DIZZINESS 180 Tab 3 9 Active Ondansetron 4 MG Oral Tablet Disintegrating (Zofran)Indications :Nausea Place 1 Tab on tongue every 8 hours as needed for Nausea. dissolve on tongue. 20 Tab 0 1 Active Aspirin 81 MG Oral Tablet Chewable Take 1 Tab by mouth daily. with food. 100 Tab 5 1 Active cloZAPine 100 MG Oral Tablet (Clozaril)Indicatio ns:Schizophrenia, chronic condition (HCC) Take 3 Tablets by mouth at bedtime. 270 Tablet 0 1 Active cloZAPine 25 MG Oral Tablet (Clozaril)Indicatio ns:Schizophrenia, chronic condition (HCC) Take 2 Tablets by mouth every morning. Take in the morning 180 Tablet 0 1 Active Zoster Vac Recomb Adjuvanted 50 MCG/0.5ML Intramuscular Suspension Reconstituted (Shingrix)Indicatio ns:Need for shingles vaccine Inject 0.5 mL into a large muscle now and repeat dose in 60 to 180 days 1 Each 1 2 Active Loratadine 10 MG Oral Tablet (Claritin) TAKE 1 TABLET BY MOUTH DAILY FOR ALLERGIES 90 Tablet 3 2 Active Polyethylene Glycol 3350 17 GM/SCOOP Oral Powder Take 17 g by mouth as needed for Constipation. Dissolve one heaping tablespoon in 8 ounces of water or juice. 17 g 3 3 Active Magnesium Hydroxide 400 MG/5ML Oral Suspension Take 5 mL by mouth daily as needed for Constipation. 360 mL 0 3 Active Docusate Sodium 100 MG Oral Capsule Take 1 Capsule by mouth in the morning and 1 Capsule before bedtime. 60 Capsule 11 3 Active Aspirin 81 MG Oral Tablet Chewable Take 1 Tablet by mouth in the morning. with food.. 100 Tablet 5 3 Active Metamucil Smooth Texture 58.6 % Oral Powder (Psyllium) Take 1 Unit(s) Not Specified by mouth in the morning and 1 Unit(s) Not Specified at noon and 1 Unit(s) Not Specified before bedtime. One scoop in 8 ounces of water, up to three times a day.. 0 3 Active Iron-Vitamin C 65-125 MG Oral Tablet (Vitron C) Take 1 Tablet by mouth in the morning. 30 Tablet 11 3 Active Omeprazole 40 MG Oral Capsule Delayed Release (PriLOSEC) Take 1 Capsule by mouth at bedtime. 90 Capsule 3 3 Active Levothyroxine Sodium 50 MCG Oral Tablet (Levoxyl)Indication s:Hypothyroidism due to acquired atrophy of thyroid TAKE 1 TABLET BY MOUTH EVERY DAY AT LEAST 30 MINS PRIOR TO BREAKFAST AND OTHER MEDS 90 Tablet 2 3 Active metFORMIN HCl 500 MG Oral Tablet (Glucophage) TAKE 1 TABLET BY MOUTH EVERY DAY WITH BREAKFAST 90 Tablet 2 3 Active Lisinopril 20 MG Oral Tablet (Prinivil) Take 1 Tablet by mouth in the morning. 90 Tablet 3 3 Active Atorvastatin Calcium 20 MG Oral Tablet (Lipitor)Indication s:Hyperlipidemia, unspecified hyperlipidemia type TAKE 1 TABLET BY MOUTH EVERY DAY 90 Tablet 1 3 Active Riboflavin 400 MG Oral Tablet TAKE 1 TABLET BY MOUTH EVERY DAY 90 Tablet 1 3 Active Diclofenac Sodium 1 % External Gel (Voltaren) Apply topically to affected area 3 times a day. Apply to back of neck 100 g 5 3 Active Fluticasone Propionate 50 MCG/ACT Nasal Suspension (Flonase)Indication s:Seasonal allergic rhinitis due to pollen Administer 2 Sprays into each nostril in the morning. 16 mL 5 3 Active Magnesium Oxide 400 MG Oral Tablet TAKE 1 TABLET BY MOUTH EVERY DAY 30 Tablet 11 3 Active SUMAtriptan Succinate 100 MG Oral TabletIndications:M igraine variant TAKE 1 TAB BY MOUTH MAY REPEAT IN 2 HRS IF NOT EFFECTIVE NO MORE THEN 2 TABS IN 24 HR OR 4 TABS A WK 9 Tablet 6 3 Active Gabapentin 100 MG Oral Capsule (Neurontin)Indicati ons:Thoracic spine pain TAKE 2 CAPSULE BY MOUTH IN THE MORNING, 1 CAP AT 2PM, AND 2 CAPS AT BEDTIME 120 Capsule 5 3 Active Cyanocobalamin 1000 MCG Oral Tablet ([facility] Vitamin B-12)Indications:Lo w serum vitamin B12,Encounter for long-term (current) use of medications TAKE 1 TABLET BY MOUTH EVERY DAY 90 Tablet 3 3 Active Vitamin D3 1.25 MG (30198 UT) Oral Capsule TAKE 1 CAP BY MOUTH ONCE A WEEK FOR 90 DAYS. 12 Capsule 3 3 Active Metoprolol Succinate ER 50 MG Oral Tablet Extended Release 24 Hour (toPROL XL) TAKE 1 TABLET BY MOUTH EVERY DAY 90 Tablet 3 3 Active DULoxetine HCl 60 MG Oral Capsule Delayed Release Particles (Cymbalta)Indicatio ns:Schizophrenia, chronic condition (HCC),Somatization disorder TAKE 1 CAPSULE BY MOUTH IN THE MORNING. DO NOT CUT, CRUSH, OR CHEW.. 90 Capsule 1 3 Active DULoxetine HCl 60 MG Oral Capsule Delayed Release Particles (Cymbalta)Indicatio ns:Schizophrenia, chronic condition (HCC),Somatization disorder Take 1 Capsule by mouth in the morning. Do not cut, crush, or chew.. 90 Capsule 1 3 05/16/20 23 Discontinued documented as of this encounter (statuses as of 05/16/2023) Active Problems Problem Noted Date Diagnosed Date [...] as of this encounter (statuses as of 05/16/2023) Resolved Problems Problem Noted Date Diagnosed Date [...] as of this encounter (statuses as of 05/16/2023) Immunizations Name Administration Dates Next Due COVID-19 [...] on file documented as of this encounter Miscellaneous Notes * Telephone Encounter - Jules Matthews RP - 05/16/2023 10:15 AM ESTSigned Prescriptions: Disp Refills DULoxetine HCl 60 MG Oral Capsule Delayed *90 Cap*1 Sig: TAKE 1 CAPSULE BY MOUTH IN THE MORNING. DO NOT CUT, CRUSH, OR CHEW..Authorizing Provider: VALERIO HALL User: JULES MATTHEWS documented in this encounter Plan of Treatment Upcoming Encounters Date Type Department Care Team (Late st Contact Info) Description 10/29/2023 10:20 AM EDT Office Visit Family Practice [facility] [place] [address] [place], [place] [address] Valerio Hall DO [address] [place], [place] [address] Health Maintenance Due Date Last Done Comments Fecal Occult Blood Test 02/26/1999 02/26/1998 Sigmoidoscopy 02/03/2007 02/03/2002, 12/31, 04/10/2001, Additional history exists Hepatitis B (1 of 3 - Risk 3-dose series) 2009 Colonoscopy 12/25/2012 12/25/2002 Zoster Vaccines (2 of 3) 01/25/2015 11/30/2014 DXA Scan 10/15/2020 10/15/2018, 01/11/2015 Mammogram 02/09/2023 02/09/2022, 01/30, 02/09/2021, Additional history exists COVID-19 Vaccine ( season) 2023 11/11/2020, 10/14/2020 Diabetic Eye Exam 05/01/2023 05/01/2022, , 04/29/2021, Additional history exists Cologuard 05/17/2023 05/17/2020, 03/2020, 05/10/2020, Additional history exists Colorectal Cancer Screening [...] as of this encounter Visit Diagnoses Diagnosis Schizophrenia, chronic condition (HCC) Residual type schizophrenic disorder, chronic condition Somatization disorder documented in this encounter Advance Directives Latest Code Status on File Code Status Date Activated Date Inactivated Comments Full Code 02/12/2014 7:49 AM 02/12/2014 1:34 PM This order reflects the patients wishes and were consensually agreed upon. Code Status History Code Status Date Activated Date Inactivated Comments None 04/15/2004 9:23 AM 04/15/2004 9:23 AM Care Teams Patrol Conductor Relationship Specialty Start Date End Date Valerio Hall DO [facility] [place] [address] PCP - General Family Medicine 12/20/16 documented as of this encounter
--- OUTSIDE RECORDS SUMMARY | 2023-05-26 12:50 | External Medical Summary | Summary of Care ---
Author Name Unknown Organization [facility] Address [address] [place] [address] Phone [phone] Care Team Providers Care Clinical Education Assistant Name Role Phone Raymond Vann DO Primary Care Provider [phone] Encounter Details Date Type Department Care Team (Late st Contact Info) Description 05/21/2023 Orders Only Outcomes Research Department [address] [place] [address] Fanny Amaya CHRA My[facility] Research Other*[id number] Allergies Active Allergy Reactions Criticality Noted Date Comments Cephalosporins Abdominal pain High 07/02/2000 gi upset- confusion Other reaction(s): Hallucinations Cyclobenzaprine Neuro complications (Please comment) High 12/11/2018 Other reaction(s): neuro complications Rizatriptan Benzoate 09/19/2016 vertigo Penicillins High 05/22/2019 Other reaction(s): Hives Pollen 11/07/2014 Pollen Extract High 05/22/2019 Other reaction(s): seasonal allergy Rizatriptan 05/22/2019 Other reaction(s): Unknown documented as of this encounter (statuses as of 05/21/2023) Medications Medication Sig Dispensed Refills Start Date [...] Bottle 3 10/12/2016 Active ONETOUCH ULTRASOFT LANCETS [facility] Use to check blood sugar daily as [...] WITH BREAKFAST 90 Tablet 2 12/15/2022 Active Lisinopril 20 MG Oral Tablet (Prinivil) [...] 3 04/13/2023 Active Vitamin D3 1.25 MG (01950 UT) Oral Capsule TAKE 1 CAP BY MOUTH ONCE A WEEK FOR 90 DAYS. 12 Capsule 3 04/20/2023 Active Metoprolol Succinate ER 50 MG Oral Tablet Extended Release 24 Hour (toPROL XL) TAKE 1 TABLET BY MOUTH EVERY DAY 90 Tablet 3 05/02/2023 Active DULoxetine HCl 60 MG Oral Capsule Delayed Release Particles (Cymbalta)Indication s:Schizophrenia, chronic condition (HCC),Somatization disorder TAKE 1 CAPSULE BY MOUTH IN THE MORNING. DO NOT CUT, CRUSH, OR CHEW.. 90 Capsule 1 05/16/2023 Active documented as of this encounter (statuses as of 05/21/2023) Active Problems Problem Noted Date Diagnosed Date [...] as of this encounter (statuses as of 05/21/2023) Resolved Problems Problem Noted Date Diagnosed Date [...] as of this encounter (statuses as of 05/21/2023) Immunizations Name Administration Dates Next Due COVID-19 [...] 10:20 AM EDT Office Visit [facility] [employer] [address] [place] [address] Raymond Vann DO [address] [facility] [place] [address] Scheduled Orders Name Type Priority Associated Diagnoses Orde r Schedule MYCODE SUBSEQUENT ADULT Lab Routine My[facility] Research Other*[id number] Every 6 Months for 2 Occurrences starting 05/21/2023 until 06/09/2024 Health Maintenance Due Date Last Done Comments [...] this encounter Visit Diagnoses Diagnosis [facility] Other*[id number] documented in this encounter Advance Directives Latest Code Status on File Code Status Date Activated Date Inactivated Comments Full Code 02/12/2014 7:49 AM 02/12/2014 1:34 PM This order reflects the patients wishes and were consensually agreed upon. Code Status History Code Status Date Activated Date Inactivated Comments None 04/15/2004 9:23 AM 04/15/2004 9:23 AM Care Teams Clinical Education Assistant Relationship Specialty Start Date End Date Raymond Vann DO [address] [facility] [place] [address] PCP - General Family Medicine 12/20/16 documented as of this encounter
[2023-05-26] MEDS ORDERED: KETOROLAC TROMETHAMINE 15 MG/ML VIAL IV ONE (12:55)
[2023-05-26] MEDS ORDERED: ACETAMINOPHEN 1,000 MG/100 ML VIAL IV STA (12:55)
--- NOTE | 2023-05-26 12:58 | Emergency Department Note ---
Impression & Plan Weakness, Acute UTI, Debilitated, Elevated lactic acid level ED Provider Note NAME: LJ PRASAD AGE: 72 SEX: F : 1950 ARRIVES VIA: Ambulance INFORMANT: [Patient][ems, nursing] ED PROVIDER(S): [Patel John MD] CHIEF COMPLAINT: Headache, pain HISTORY OF PRESENT ILLNESS: The patient is a 72-year-old female who lives alone. She typically has help during the week. She used to have help on the weekends but this seems to have ended. She was found by EMS sitting on the toilet. Stool was everywhere on the floor. The patient denied any fall. She states that she does feel a bit weak, she denies diarrhea or vomiting, no cough or congestion or shortness of breath. She has not yet taken anything for pain. PMHx/PSHx/Social Hx: See Below PHYSICAL EXAM: GENERAL: Patient is in no acute distress. Stool noted on her lower extremities. HEENT: No acute trauma, normocephalic atraumatic, mucous membranes dry, no nasal congestion. NECK: No stridor, no adenopathy, no meningismus, trachea is midline. LUNGS: Clear to auscultation bilaterally, no wheeze, no rhonchi, breath sounds equal. HEART: Without murmurs gallops or rubs, regular rate and rhythm. ABDOMEN: Soft, nontender, no peritonitis. EXTREMITIES: No cyanosis, full range of motion of all the joints without pain or difficulty. NEUROLOGIC: Awake and alert, no acute motor or sensory deficits, no focal weakness. SKIN: No jaundice, no diaphoresis. DIFFERENTIAL DIAGNOSIS: Dehydration, electrolyte imbalance, debilitation, intracranial bleeding, UTI, anemia, among others. EMERGENCY DEPARTMENT PROCEDURES: MEDICAL DECISION MAKING: There is no leukocytosis. A very mild anemia was seen. There was a normal platelet count. No renal failure or significant electrolyte abnormality. Lactic acid level is somewhat elevated, this could be consistent with infection or just dehydration. There is no concerning liver enzyme elevation. The patient appeared to be in a euthyroid state. ECG showed a sinus bradycardia, no dysrhythmia or acute ischemia. Cardiac enzyme testing x1 was not consistent with acute cardiac injury. Urinalysis shows infection. Respiratory bio fire was completely negative. Chest x-ray does not show mediastinal widening, pneumonia or pneumothorax. Brain CT shows no acute bleed or mass effect. Patient received IV saline, 1 L. She was given IV aztreonam as antibiotic coverage. This antibiotic was chosen given her allergies and the fact that she has done well with this medication in the past. She received IV Toradol and IV Tylenol for her headache. The patient was covered in stool as per our nursing staff. They cleaned stool off of her back. She is by herself at home for this weekend and I do not think safe for discharge. The patient is likely weak and not quite herself because of the UTI and dehydration. I do not believe she is septic. The case was discussed with our case technician, I did speak with the patient at length. The on-call hospitalist was consulted. Prior/Outside records/notes reviewed: Discharge note from 03/13/2023 discussing her weakness and UTI. She had been hospitalized for these issues. ECG per my interpretation: Indication was weakness. The ECG shows a sinus bradycardia with a shortened SD. The rate is 55. There is some nonspecific ST change. There is no ST elevation, no PVCs. The QTc is 445. Continuous Cardiac Monitoring per my interpretation: An order was placed for continuous cardiac monitoring. The monitor shows a rate of 56 with sinus bradycardia. Imaging/x-ray results per my interpretation: Chest x-ray does not show pneumonia, pneumothorax or mediastinal widening. Chronic Medical/Social conditions affecting care: Advanced age, debilitation. Care/Management discussed with: Case management, the on-call hospitalist. Level of care consideration(s): After review of the information above and other included data: --I believe the patient requires escalation of care to admission DISPOSITION: Admission Past Med/Surg History Medical History Constipation Bacteremia Weakness Acute UTI (urinary tract infection) Generalized weakness AMS (altered mental status) Unresponsive Obtunded COVID-19 Hyponatremia Nausea Dehydration Dizziness Neuropathy Headache Vertigo Schizophrenia GERD (gastroesophageal reflux disease) Well controlled with medication Hypothyroidism Anxiety Migraine Hypertension Neuropathy DM2 (diabetes mellitus, type 2) HLD (hyperlipidemia) Somatization disorder Surgical History S/P foot surgery, right X2 S/P foot surgery, left X2 History of colonoscopy History of tooth extraction WISDOM TEETH History of tonsillectomy H/O bilateral cataract extraction History of craniotomy 1969, [place] D/T HEADACHE---FOLLOWS W DR. MICHAEL History of cataract surgery H/O cystoscopy H/O foot surgery H/O brain surgery "abt 1970 R parietal exploration for benign lesion" Family History Grandmother Family history of diabetes mellitus PATERNAL Family/Other Family history of diabetes mellitus UNCLE Father Parkinson disease Mother CHF (congestive heart failure) Social History Smoking Status: Never smoker Second Hand Exposure: Yes (FATHER SMOKED); Do You Dip or Chew Tobacco: No; Hx Alcohol Use: No Hx Substance Use: No Preferred Language: [place] Citizen Communication Ability: Effective Vamp Creaser Required: No Beliefs That Will Affect Care: None marital status: Single Current Living Situation: Alone Current Living Situation Comment: caregivers daily How many Children do You have: 0 Feels Safe at Home: Yes Assistive Devices: Walker and Wheelchair Allergies Allergies Allergy/AdvReac Type Severity Reaction Status Date / Time Cephalosporins Allergy Intermediate Hallucinati Verified 05/07/23 10:39 ons Penicillins Allergy Intermediate Hives Verified 05/07/23 10:39 pollen extracts Allergy Intermediate seasonal Verified 05/07/23 10:39 allergy rizatriptan [From Maxalt] Allergy Unknown Unknown Verified 05/07/23 10:39 cyclobenzaprine AdvReac Intermediate neuro Verified 05/07/23 10:39 [From Flexeril] complications Home Meds Home Medications Medication Instructions Recorded Confirmed duloxetine 60 mg capsule,delayed 60 mg PO QAM 04/14/18 05/07/23 release (Cymbalta) levothyroxine 50 mcg tablet 50 mcg PO DAILYBB 04/14/18 05/07/23 (Synthroid) loratadine 10 mg tablet (Claritin) 10 mg PO HS 03/25/19 05/07/23 magnesium oxide 400 mg PO QAM 03/25/19 05/07/23 atorvastatin 20 mg tablet 20 mg PO PM 11/22/19 05/07/23 sumatriptan succinate 100 mg tablet 100 mg PO DAILY PRN Headache 11/22/19 05/07/23 metformin 500 mg tablet 500 mg PO QAM 02/24/21 05/07/23 riboflavin (vitamin B2) 400 mg 400 mg PO QAM 02/24/21 05/07/23 tablet iron,carbonyl 65 mg-vitamin C 125 1 tab PO DAILY 05/17/21 05/07/23 mg tablet,delayed release (Vitron-C) fluticasone propionate 50 2 spray intranasal DAILY 07/13/21 05/07/23 mcg/actuation nasal spray,suspension (Flonase Allergy Relief) meclizine 25 mg tablet 25 mg PO .Q5HRS PRN DIZZY 07/13/21 05/07/23 ondansetron 4 mg disintegrating 4 mg PO Q8H PRN Nausea 07/13/21 05/07/23 tablet aspirin 81 mg chewable tablet 81 mg PO DAILY 05/12/22 05/07/23 (Aspirin Childrens) docusate sodium 100 mg capsule 100 mg PO BID 07/13/22 05/07/23 (Colace) gabapentin 100 mg capsule 0 mg PO UD 09/01/22 05/07/23 cholecalciferol (vitamin D3) 1,250 1,250 mcg PO WK 12/16/22 05/07/23 mcg (50,000 unit) capsule clozapine 100 mg tablet 300 mg PO HS 12/16/22 05/07/23 clozapine 25 mg tablet 50 mg PO QAM 12/16/22 05/07/23 omeprazole 40 mg capsule,delayed 40 mg PO HS 12/16/22 05/07/23 release lisinopril 20 mg tablet 20 mg PO QAM 01/15/23 05/07/23 metoprolol succinate 50 mg 50 mg PO DAILY 03/08/23 05/07/23 tablet,extended release 24 hr Previous Rx's Medication Instructions Recorded magnesium hydroxide 400 mg/5 mL 30 ml PO Q6H PRN constipation #355 07/20/22 oral suspension (Milk of Magnesia) mL polyethylene glycol 3350 17 17 g PO DAILY PRN constipation 07/22/22 gram/dose oral powder (Miralax) #238 grams methenamine hippurate 1 gram tablet 1 g PO BID #180 tabs 05/07/23 Results & Data (ED) Vital Signs Vital Signs - 24 hr 05/26/23 12:39 05/26/23 12:48 05/26/23 13:13 Temperature 36.4 C L Temperature Source Oral Pulse Rate 56 L 56 L 54 L Pulse Rate [Apical] Pulse Rhythm Regular Regular Pulse Rhythm [Apical] Pulse Strength Normal Pulse Strength [Apical] Respiratory Rate 18 18 Respiratory Effort / Characteristics Non-Labored Respiratory Depth Normal Respiratory Pattern Regular Blood Pressure 129/60 Blood Pressure [Right Arm] Blood Pressure Mean 83 Blood Pressure Mean [Right Arm] Pulse Oximetry 97 54 L Oxygen Delivery Method Room Air Room Air Sepsis Recent Fever Within 48 Hours No Sepsis New/Unexplained Change in Mental Status No Sepsis Action Taken by Nursing No Action Required 05/26/23 13:13 05/26/23 15:24 Temperature 36.4 C L Temperature Source Oral Pulse Rate Pulse Rate [Apical] 55 L 57 L Pulse Rhythm Pulse Rhythm [Apical] Regular Regular Pulse Strength Pulse Strength [Apical] Normal Normal Respiratory Rate 19 19 Respiratory Effort / Characteristics Non-Labored Spontaneous Non-Labored Spontaneous Respiratory Depth Normal Normal Respiratory Pattern Regular Blood Pressure Blood Pressure [Right Arm] 111/57 L 179/88 H Blood Pressure Mean Blood Pressure Mean [Right Arm] 75 118 Pulse Oximetry 98 100 Oxygen Delivery Method Room Air Room Air Sepsis Recent Fever Within 48 Hours Sepsis New/Unexplained Change in Mental Status Sepsis Action Taken by [facility] Medications Current Medication List: was personally reviewed by me Laboratory Data Attestation: I reviewed the patient's lab results. 05/26/23 13:08 05/26/23 13:08 Lab Results 05/26/23 05/26/23 05/26/23 Range/Units 12:40 13:08 Unknown WBC 7.37 (4.8-10.8) K/ul RBC 4.07 L (4.20-5.40) M/uL Hgb 11.9 L (12.0-16.0) g/dl Hct 37.0 (37.0-47.0) % MCV 90.9 (80.0-100.0) fL MCH 29.2 (25.0-34.0) pg MCHC 32.2 (32.0-36.0) g/dL RDW Std Deviation 47.0 H (36.4-46.3) fL RDW Coeff of Cyn 14.1 (11.5-14.5) % Plt Count 220 (130-400) K/uL MPV 10.3 (9.4-12.4) fL Immature Gran % (Auto) 0.4 % Neut % (Auto) 73.0 % Lymph % (Auto) 15.3 % [place] % (Auto) 10.4 % Eos % (Auto) 0.0 % Baso % (Auto) 0.9 % Neut # (Auto) 5.37 (1.40-6.50) K/uL Lymph # (Auto) 1.13 L (1.20-3.40) K/uL [place] # (Auto) 0.77 H (0.11-0.59) K/uL Eos # (Auto) 0.00 (0.00-0.50) K/uL Baso # (Auto) 0.07 (0.00-0.20) K/uL Immature Gran # (Auto) 0.03 (0.01-0.20) K/uL Sodium 140 (136-145) mmol/L Potassium 4.2 (3.5-5.1) mmol/L Chloride 106 (98-107) mmol/L Carbon Dioxide 27 (21-32) mmol/L Anion Gap 7 (3-11) BUN 16 (6-23) mg/dl Creatinine 0.82 (0.6-1.2) mg/dl Est Cr Clr Drug Dosing 55.0 ml/min Est GFR ( Amer) 82.3 ml/min Est GFR (Non-Af Amer) 71.0 ml/min BUN/Creatinine Ratio 19.5 (10-20) Glucose 142 H (70-99(Fasting)) mg/dl POC Glucose 131 H (70-99) mg/dl Lactate 2.2 H* (0.4-2.0) mmol/L Calcium 8.9 (8.6-10.3) mg/dl Magnesium 1.9 (1.7-2.4) mg/dl Total Bilirubin 0.6 (0.2-1.0) mg/dl AST 17 (13-39) U/L ALT 11 (7-52) U/L Alkaline Phosphatase 65 (34-104) U/L Troponin I High Sens 6.3 (0-14) pg/ml Total Protein 6.0 (6.0-8.3) gm/dl Albumin 3.7 (3.4-5.0) gm/dl Globulin 2.3 L (2.5-4.0) gm/dl Albumin/Globulin Ratio 1.6 (0.9-2) TSH 1.019 (0.300-4.500) uIu/ml Urine Color Dark Yellow Urine Appearance Turbid A (Clear) Urine pH 6.5 (4.5-7.5) Ur Specific Mall[place] 1.018 (1.000-1.030) Urine Protein Trace H (Negative) Urine Glucose (UA) Negative (Negative) Urine Ketones Negative (Negative) Urine Blood 1+ H (Negative) Urine Nitrite Negative (Negative) Urine Bilirubin Negative (Negative) Urine Urobilinogen Negative (Negative) Ur Leukocyte Esterase 3+ H (Negative) Urine WBC (Auto) >30 H (0-5) /hpf Urine RBC (Auto) 5-10 H (0-4) /hpf U Hyaline Cast (Auto) 1-5 (0-5) /lpf U Epithel Cells (Auto) >30 H (0-5) /lpf Urine Bacteria (Auto) 4+ H (Negative) Adenovirus (PCR) Not Detected (NotDetected) B. pertussis DNA (PCR) Not Detected (NotDetected) B.parapertussis DNA PCR Not Detected (NotDetected) C. pneumoniae DNA (PCR) Not Detected (NotDetected) Coronavirus OC43 (PCR) Not Detected (NotDetected) Coronavirus HKU1 (PCR) Not Detected (NotDetected) Coronavirus 229E (PCR) Not Detected (NotDetected) SARS-CoV-2 (PCR) Not Detected (NotDetected) Coronavirus NL63 (PCR) Not Detected (NotDetected) Human Metapneumovir PCR Not Detected (NotDetected) Influenza Type A (PCR) Not Detected (NotDetected) Influenza Type B (PCR) Not Detected (NotDetected) M. pneumoniae (PCR) Not Detected (NotDetected) Parainfluenza 1 (PCR) Not Detected (NotDetected) Parainfluenza 2 (PCR) Not Detected (NotDetected) Parainfluenza 3 (PCR) Not Detected (NotDetected) Parainfluenza 4 (PCR) Not Detected (NotDetected) RSV (PCR) Not Detected (NotDetected) Entero/Rhino (PCR) Not Detected (NotDetected) Administered Medications Discontinued Medications Sodium Chloride (Nss) 500 mls @ 999 mls/hr IV .Q31M [facility] Stop: 05/26/23 13:30 Last Infusion: 05/26/23 13:38 Dose: Infused Documented By: ALMA ROSA Admin: 05/26/23 13:20 Dose: 999 mls/hr Documented By: ALMA ROSA Acetaminophen (Ofirmev) 1,000 mg in 100 mls @ 400 mls/hr IV NOW STA Stop: 05/26/23 13:09 Last Infusion: 05/26/23 13:38 Dose: Infused Documented By: ALMA ROSA Admin: 05/26/23 13:18 Dose: 400 mls/hr Documented By: ALMA ROSA Sodium Chloride (Nss) 500 mls @ 999 mls/hr IV .Q31M ONE Stop: 05/26/23 14:49 Last Admin: 05/26/23 14:24 Dose: 999 mls/hr Documented By: ALMA ROSA Aztreonam 1,000 mg/ Dextrose 100 mls @ 100 mls/hr IV NOW STA Stop: 05/26/23 15:36 Last Admin: 05/26/23 15:23 Dose: 100 mls/hr Documented By: ALMA ROSA Ketorolac Tromethamine (Ketorolac Tromethamine 15 Mg/Ml Vial) 10 mg IV NOW ONE Stop: 05/26/23 12:56 Last Admin: 05/26/23 13:18 Dose: 10 mg Documented By: ALMA ROSA Imaging Data Radiologist's Impression: Chest X-Ray 05/26/23 12:46 XR chest 1V portable HISTORY: weakness COMPARISON: Chest 03/08/2023. FINDINGS: The lungs are clear. Cardiac silhouette is normal in size. No pleural effusions. No pneumothorax. IMPRESSION: No acute process. ACT 112: Negative or not required by law. Electronically signed by: Doe Harper M.D. 05/26/2023 1:[address] 05/26/23 12:[address] DOSE: 625.8 mGy.cm HISTORY: Headache. TECHNIQUE: Multiaxial CT images of the head were performed without the use of intravenous contrast. Automated exposure control was utilized for this study. A dose lowering technique was utilized adhering to the principles of ALARA. Comparison: Brain MRI 03/09/2023. Findings: The paranasal sinuses and mastoid air cells are clear. The calvarium and skull base are intact. There is no mass, hematoma, midline shift, acute infarct. White matter hypodensity is nonspecific but suggestive of microvascular ischemic change. The ventricles and sulci demonstrate mild age-related involutional changes. A right parietal bone defect/selena hole remains unchanged. Impression: No significant change compared to the prior study. No acute intracranial abnormality. ACT 112: Negative or not required by law. Electronically signed by: Doe Harper M.D. 05/26/2023 1:51 PM Discharge Plan Visit Data Chief Complaint: Pain (Generalized) Stated Complaint: GENERALIZED PAIN, LETHARGIC ED Provider: Patel John Discharge Problem: Weakness, Acute UTI, Debilitated, Elevated lactic acid level Patient Disposition: Admitted As Inpatient Condition: Fair Forms Stand Alone Forms: [facility] [employer] Prescriptions Prescriptions: No Action methenamine hippurate 1 gram tablet 1 g PO BID Qty: 180 3RF levothyroxine [Synthroid] 50 mcg tablet 50 mcg PO DAILYBB duloxetine [Cymbalta] 60 mg capsule,delayed release(DR/EC) 60 mg PO QAM atorvastatin 20 mg Tablet 20 mg PO PM sumatriptan succinate 100 mg Tablet 100 mg PO DAILY PRN (Reason: Headache) loratadine [Claritin] 10 mg Tablet 10 mg PO HS magnesium oxide 400 mg magnesium Tablet 400 mg PO QAM polyethylene glycol 3350 [Miralax] 17 gram/dose powder 17 g PO DAILY PRN (Reason: constipation) Qty: 238 0RF riboflavin (vitamin B2) 400 mg tablet 400 mg PO QAM metformin 500 mg tablet 500 mg PO QAM Rx Instructions: take with breakfast Vitron-C 65 mg iron- 125 mg Tablet,Delayed Release (Dr/Ec) 1 tab PO DAILY meclizine 25 mg Tablet 25 mg PO .Q5HRS PRN (Reason: DIZZY) ondansetron 4 mg Tablet,Disintegrating 4 mg PO Q8H PRN (Reason: Nausea) fluticasone propionate [Flonase Allergy Relief] 50 mcg/actuation Cotton,Suspension 2 spray INTRANASAL DAILY aspirin [Aspirin Childrens] 81 mg Tablet,Chewable 81 mg PO DAILY docusate sodium [Colace] 100 mg Capsule 100 mg PO BID magnesium hydroxide [Milk of Magnesia] 400 mg/5 mL Suspension 30 ml PO Q6H PRN (Reason: constipation) Qty: 355 0RF gabapentin 100 mg Capsule 0 mg PO UD Rx Instructions: take 100mg in morning and afternoon at 2pm, then take 200 mg at bedtime clozapine 100 mg tablet 300 mg PO HS clozapine 25 mg tablet 50 mg PO QAM omeprazole 40 mg capsule,delayed release(DR/EC) 40 mg PO HS cholecalciferol (vitamin D3) 1,250 mcg (50,000 unit) capsule 1,250 mcg PO WK lisinopril 20 mg tablet 20 mg PO QAM metoprolol succinate 50 mg tablet extended release 24 hr 50 mg PO DAILY Referrals Referrals: Raymond Vnan DO [Primary Care Provider] -
[2023-05-26] MEDS ORDERED: SODIUM CHLORIDE 0.9% 500 ML IV SCH (13:00)
--- NOTE | 2023-05-26 13:16 | XRay Report ---
XR chest 1V portable HISTORY: weakness COMPARISON: Chest 03/08/2023. FINDINGS: The lungs are clear. Cardiac silhouette is normal in size. No pleural effusions. No pneumot horax. IMPRESSION: No acute process. ACT 112: Negative or not required by law. Electronically signed by: Doe Harper M.D. 05/26/2023 1:15 PM
[2023-05-26 13:22] LABS: Basophils # (auto) 0.07 K/uL (0.00-0.20); Basophils % (auto) 0.9 %; Hemoglobin 11.9 g/dl (12.0-16.0); Immature Granulocytes # (auto) 0.03 K/uL (0.01-0.20); Immature Granulocytes % (auto) 0.4 %; Lymphocytes # (auto) 1.13 K/uL (1.20-3.40); Lymphocytes % (auto) 15.3 %; Mean Corpuscular Hemoglobin 29.2 pg (25.0-34.0); Mean Corpuscular Hgb Conc 32.2 g/dL (32.0-36.0); Mean Corpuscular Volume 90.9 fL (80.0-100.0); Mean Platelet Volume 10.3 fL (9.4-12.4); Monocytes # (auto) 0.77 K/uL (0.11-0.59); Monocytes % (auto) 10.4 %; Neutrophils # (auto) 5.37 K/uL (1.40-6.50); Platelet Count 220 K/uL (130-400); RDW Coefficient of Variation 14.1 % (11.5-14.5); Red Blood Count 4.07 M/uL (4.20-5.40); White Blood Count 7.37 K/ul (4.8-10.8)
[2023-05-26 13:36] LABS: Albumin Globulin Ratio 1.6 (0.9-2); Albumin Level 3.7 gm/dl (3.4-5.0); BUN Creatinine Ratio 19.5 (10-20); Bilirubin,Total 0.6 mg/dl (0.2-1.0); Calcium 8.9 mg/dl (8.6-10.3); Est GFR (African American) 82.3 ml/min; Globulin 2.3 gm/dl (2.5-4.0); Magnesium 1.9 mg/dl (1.7-2.4); Potassium 4.2 mmol/L (3.5-5.1)
[2023-05-26 13:42] LABS: Troponin I High Sensitivity 6.3 pg/ml (0-14)
[2023-05-26 13:51] LABS: Thyroid Stimulating Hormone 1.019 uIu/ml (0.300-4.500)
--- NOTE | 2023-05-26 13:54 | CT Scan Report ---
HEAD CT NONCONTRAST CT DOSE: 625.8 mGy.cm HISTORY: Headache. TECHNIQUE: Multiaxial CT images of the head were performed without the use of intravenous contrast. A utomated exposure control was utilized for this study. A dose lowering technique was utilized adheri ng to the principles of ALARA. Comparison: Brain MRI 03/09/2023. Findings: The paranasal sinuses and mastoid air cells are clear. The calvarium and skull base are int act. There is no mass, hematoma, midline shift, acute infarct. White matter hypodensity is nonspecifi c but suggestive of microvascular ischemic change. The ventricles and sulci demonstrate mild age-rela gee involutional changes. A right parietal bone defect/selena hole remains unchanged. Impression: No significant change compared to the prior study. No acute intracranial abnormality. ACT 112: Negative or not required by law. Electronically signed by: Doe Harper M.D. 05/26/2023 1:51 PM
[2023-05-26] MEDS ORDERED: SODIUM CHLORIDE 0.9% 500 ML IV ONE (14:19)
[2023-05-26 14:28] LABS: Appearance Urine Turbid (Clear); Bacteria Urine Automated 4+ (Negative); Bilirubin Urine Negative (Negative); Blood Urine 1+ (Negative); Color Urine Dark Yellow; Epithelial Cell Urine Auto >30 /lpf (0-5); Glucose Urine UA Negative (Negative); Ketones Urine Negative (Negative); Leukocyte Esterase Urine 3+ (Negative); Nitrite Urine Negative (Negative); Protein Urine Trace (Negative); Specific Gravity Urine 1.018 (1.000-1.030); Urobilinogen Urine Negative (Negative); WBC Urine Automated >30 /hpf (0-5); pH Urine 6.5 (4.5-7.5)
[2023-05-26 14:30] LABS: Adenovirus PCR Not Detected (NotDetected); Bordetella parapertussis PCR Not Detected (NotDetected); Bordetella pertussis PCR Not Detected (NotDetected); Chlamydia pneumoniae PCR Not Detected (NotDetected); Coronavirus 229E PCR Not Detected (NotDetected); Coronavirus CoV-2 (COVID19)PCR Not Detected (NotDetected); Coronavirus HKU1 PCR Not Detected (NotDetected); Coronavirus NL63 PCR Not Detected (NotDetected); Coronavirus OC43PCR Not Detected (NotDetected); Human Metapneumovirus PCR Not Detected (NotDetected); Influenza A PCR Not Detected (NotDetected); Influenza B PCR Not Detected (NotDetected); Mycoplasma pneumoniae PCR Not Detected (NotDetected); Parainfluenza Virus 1 PCR Not Detected (NotDetected); Parainfluenza Virus 2 PCR Not Detected (NotDetected); Parainfluenza Virus 3 PCR Not Detected (NotDetected); Parainfluenza Virus 4 PCR Not Detected (NotDetected); Respiratory Syncytial VirusPCR Not Detected (NotDetected); Rhinovirus/Enterovirus PCR Not Detected (NotDetected)
[2023-05-26] MEDS ORDERED: AZTREONAM 1,000 MG in DEXTROSE 5% MINI-B 100 ML IV STA (14:37)
--- NOTE | 2023-05-26 15:38 | Hospitalist Progress Note ---
Date of Service May 26, 2023 Assessment & Plan (1) Acute UTI: (2) Weakness: (3) DM2 (diabetes mellitus, type 2): (4) Debilitated: Plan Pt is a 72yoF with PMHx significant for HTN, HLD, DMII, hypothyroidism, Hx of brain tumor s/p partial resection years ago (unknown pathology), somatization disorder, schizophrenia, history of migraine, chronic anemia, recurrent UTIs, urinary incontinence and urinary bladder diverticulum presenting with weakness. Generalized weakness/ UTI Pt AAOx2, states that she just felt extremely weak today. Per emergency providers, she was found sitting on the toilet unable to get up with feces all over the floor. States once more that she does not recall how she ended up in the ambulance and is unsure exactly what happened. States she is weak and tired with some nausea. Denies headache, chest pain, SOB, cough, congestion, abdominal pain, dysuria, or vomiting episodes. Head CT with no acute changes, MRI brain last done in Mar, consider repeating if symptoms persist after UTI treatment. Lactate elevated at 2.2, procal pending. Received 1L of fluids in the ED, repeat lactate pending. Chest xray with no acute changes, EKG with noted sinus bradycardia. UA suggestive of infection, urine Cx pending with Blood Cx x2 pending as well. Received a dose of Aztreonam in the ED, continue. Narrow based on culture results. PT/OT Debilitation Complex Living/Social needs Per emergency provider, pt found with feces on the floor, up her back Reportedly had caregivers that came 7 days a week, now cut back to 5 days Case management consult placed for further assistance PT/OT DMII Last noted hgba1c of 5.8 in Mar 2023 AM hgba1c ordered Hold home metformin, ISS ordered. Chronic medical problems: HLD- continue home statin Vit D def- continue home Vit D supplement Schizophrenia/Mood/Neuropathy/Pain- continue home clozapine, cymbalta, gabapentin Hypothyroidism- continue home levothyroxine HTN: continue home lisinopril and metoprolol succinate GERD: continue home ppi Hx of migraines: continue home daily riboflavin Dispo: Med/Surg Diet: DMII CODE STATUS: Full code DVT prophylaxis: Lovenox SQ Subjective Pt is a 72yoF with PMHx significant for HTN, HLD, DMII, hypothyroidism, Hx of brain tumor s/p partial resection years ago (unknown pathology), somatization disorder, schizophrenia, history of migraine, chronic anemia, recurrent UTIs, urinary incontinence and urinary bladder diverticulum presenting with weakness. Hx obtained from pt and medical records. Per pt she "knew" she had to come and be admitted to the hospital as she was feeling very weak. States that she was sitting on the toilet and could not get up. However states that she does not remember how she got to the emergency room. Per ED provider, EMS found pt with feces on the floor, reportedly with feces all up her back. Reportedly she had providers daily before but now they are around only 5 days a week. Pt states she only feels weak and tired with some nausea. Denies episodes of emesis or dysuria. Denies abdominal pain, diarrhea or constipation. ER course: Received 1L of NSS, dose of Aztreonam, Toradol and Tylenol Review of Systems Review of Systems: All systems reviewed & are unremarkable except as noted in Subjective Physical Exam Physical Exam: General: Alert, oriented. No acute distress Skin: No noted rashes or bruises Psych: Appropriate mood and affect, though tangential at times Neuro: Weakness and difficulty with movements in the bed HEENT: NC/AT Chest: Nontender to palpation. CV: RRR Resp: Breath sounds clear bilaterally, no increased effort of breathing. Abdomen: Soft, nontender, nondistended. Extremities: No edema in lower extremities bilaterally. Results & Data Results & Data Vital Signs (Past 12 Hours) Vital Signs Temp Pulse Pulse Resp BP BP Pulse Ox 05/26/23 15:24 57 L 19 179/88 H 100 05/26/23 13:13 36.4 C L 55 L 19 111/57 L 98 05/26/23 13:13 54 L 18 54 L 05/26/23 12:48 56 L 05/26/23 12:39 36.4 C L 56 L 18 129/60 97 O2 Del Method 05/26/23 15:24 Room Air 05/26/23 13:13 Room Air 05/26/23 13:13 Room Air 05/26/23 12:48 05/26/23 12:39 Room Air Diagnostic Findings Chest X-Ray 05/26/23 12:46 XR chest 1V portable HISTORY: weakness COMPARISON: Chest 03/08/2023. FINDINGS: The lungs are clear. Cardiac silhouette is normal in size. No pleural effusions. No pneumothorax. IMPRESSION: No acute process. ACT 112: Negative or not required by law. Electronically signed by: Doe Harper M.D. 05/26/2023 1:[address] 05/26/23 12:[address] DOSE: 625.8 mGy.cm HISTORY: Headache. TECHNIQUE: Multiaxial CT images of the head were performed without the use of intravenous contrast. Automated exposure control was utilized for this study. A dose lowering technique was utilized adhering to the principles of ALARA. Comparison: Brain MRI 03/09/2023. Findings: The paranasal sinuses and mastoid air cells are clear. The calvarium and skull base are intact. There is no mass, hematoma, midline shift, acute infarct. White matter hypodensity is nonspecific but suggestive of microvascular ischemic change. The ventricles and sulci demonstrate mild age-related involutional changes. A right parietal bone defect/selena hole remains unchanged. Impression: No significant change compared to the prior study. No acute intracranial abnormality. ACT 112: Negative or not required by law. Electronically signed by: Doe Harper M.D. 05/26/2023 1:51 PM
[2023-05-26] MEDS ORDERED: ONDANSETRON 4 MG OD TAB PO PRN (17:51)
[2023-05-26] MEDS ORDERED: GLUCOSE 40% GEL 15 GM TUBE PO PRN (17:51)
[2023-05-26] MEDS ORDERED: POLYETHYLENE (MIRALAX) 17 GM PACK PO PRN (17:51)
[2023-05-26] MEDS ORDERED: CARBOHYDRATES FOR HYPOGLYCEMIA PO PRN (17:51)
[2023-05-26] MEDS ORDERED: KETOROLAC TROMETHAMINE 15 MG/ML VIAL IV PRN (17:51)
[2023-05-26] MEDS ORDERED: GLUCOSE 10 TAB/TUBE PO PRN (17:51)
[2023-05-26] MEDS ORDERED: MAGNESIUM HYDROXIDE SUSP 30 ML UDC PO PRN (17:51)
[2023-05-26] MEDS ORDERED: GLUCAGON FOR INJ 1 MG VIAL SQ PRN (17:51)
[2023-05-26] MEDS ORDERED: AZTREONAM 1,000 MG in DEXTROSE 5% MINI-B 100 ML IV SCH (17:51)
[2023-05-26] MEDS ORDERED: DEXTROSE 50% 50 ML SYRINGE IV PRN (17:51)
[2023-05-26] MEDS: SODIUM CHLORIDE 0.9% 1,000 ML IV SCH (18:16)
[2023-05-26] MEDS: INSULIN ASPART PER UNIT CHARGE SC SCH ×2 (18:36→20:18)
[2023-05-26] MEDS: GABAPENTIN 100 MG CAP PO SCH (20:06)
[2023-05-26] MEDS: ENOXAPARIN INJ 40 MG/0.4 ML SYR SQ SCH (20:07)
[2023-05-26] MEDS: cloZAPine 100 MG TAB PO SCH (20:07)
[2023-05-26] MEDS: DOCUSATE SODIUM 100 MG CAP PO SCH (20:07)
[2023-05-26] MEDS: ATORVASTATIN 20 MG TAB PO SCH (20:07)
[2023-05-26] MEDS: PANTOprazole 40 MG TAB PO SCH (20:11)
[2023-05-26] MEDS: ACETAMINOPHEN 500 MG TAB PO PRN (20:12)
[2023-05-26] MEDS: AZTREONAM 2,000 MG in DEXTROSE 5% MINI-B 100 ML IV SCH (22:42)
[2023-05-27 05:56] LABS: Basophils # (auto) 0.05 K/uL (0.00-0.20); Eosinophils # (auto) 0.02 K/uL (0.00-0.50); Eosinophils % (auto) 0.4 %; Hematocrit (blood only) 31.8 % (37.0-47.0); Hemoglobin 10.3 g/dl (12.0-16.0); Immature Granulocytes # (auto) 0.01 K/uL (0.01-0.20); Immature Granulocytes % (auto) 0.2 %; Lymphocytes # (auto) 1.93 K/uL (1.20-3.40); Lymphocytes % (auto) 39.9 %; Mean Corpuscular Hemoglobin 29.3 pg (25.0-34.0); Mean Corpuscular Hgb Conc 32.4 g/dL (32.0-36.0); Mean Corpuscular Volume 90.6 fL (80.0-100.0); Mean Platelet Volume 10.4 fL (9.4-12.4); Monocytes # (auto) 0.45 K/uL (0.11-0.59); Monocytes % (auto) 9.3 %; Neutrophils # (auto) 2.38 K/uL (1.40-6.50); Neutrophils % (auto) 49.2 %; Platelet Count 202 K/uL (130-400); RDW Coefficient of Variation 13.9 % (11.5-14.5); RDW Standard Deviation 46.4 fL (36.4-46.3); Red Blood Count 3.51 M/uL (4.20-5.40); White Blood Count 4.84 K/ul (4.8-10.8)
[2023-05-27 06:16] LABS: Albumin Globulin Ratio 1.7 (0.9-2); Albumin Level 3.3 gm/dl (3.4-5.0); BUN Creatinine Ratio 25.8 (10-20); Bilirubin,Total 0.4 mg/dl (0.2-1.0); Calcium 8.4 mg/dl (8.6-10.3); Creatinine Clr Calc Pharmacy 68.3 ml/min; Est GFR (African American) 101.6 ml/min; Est GFR (Non-African American) 87.6 ml/min; Globulin 1.9 gm/dl (2.5-4.0); Magnesium 1.9 mg/dl (1.7-2.4); Phosphorus 2.9 mg/dl (2.5-4.9); Total Protein 5.2 gm/dl (6.0-8.3)
[2023-05-27] MEDS: LEVOTHYROXINE SODIUM 50 MCG TABLET PO SCH (06:27)
[2023-05-27] MEDS: SODIUM CHLORIDE 0.9% 1,000 ML IV SCH (06:27)
[2023-05-27] MEDS: AZTREONAM 2,000 MG in DEXTROSE 5% MINI-B 100 ML IV SCH ×3 (06:27→23:02)
--- NOTE | 2023-05-27 07:18 | Hospitalist Progress Note ---
Date of Service May 27, 2023 Assessment & Plan (1) Acute UTI: (2) Weakness: (3) DM2 (diabetes mellitus, type 2): (4) Debilitated: Plan Pt is a 72yoF with PMHx significant for HTN, HLD, DMII, hypothyroidism, Hx of brain tumor s/p partial resection years ago (unknown pathology), somatization disorder, schizophrenia, history of migraine, chronic anemia, recurrent UTIs, urinary incontinence and urinary bladder diverticulum presenting with weakness. Generalized weakness/ UTI Pt AAOx2, states that she just felt extremely weak today. Per emergency providers, she was found sitting on the toilet unable to get up with feces all over the floor. States once more that she does not recall how she ended up in the ambulance and is unsure exactly what happened. States she is weak and tired with some nausea. Denies headache, chest pain, SOB, cough, congestion, abdominal pain, dysuria, or vomiting episodes. Head CT with no acute changes, MRI brain last done in Mar, consider repeating if symptoms persist after UTI treatment. Lactate elevated at 2.2, procalcitonin negative Received 1L of fluids in the ED Chest xray with no acute changes, EKG with noted sinus bradycardia. UA suggestive of infection, urine Cx posit. for Gram negative bacilli Blood Cx x2 pending Received a dose of Aztreonam in the ED, continue. Narrow based on culture results. PT/OT Debilitation Complex Living/Social needs Per emergency provider, pt found with feces on the floor, up her back Reportedly had caregivers that came 7 days a week, now cut back to 5 days Case management consult placed for further assistance PT/OT DMII Last noted hgba1c of 5.8 in Mar 2023 hgba1c ordered Hold home metformin, ISS ordered. Chronic medical problems: HLD- continue home statin Vit D def- continue home Vit D supplement Schizophrenia/Mood/Neuropathy/Pain- continue home clozapine, cymbalta, gabapentin Hypothyroidism- continue home levothyroxine HTN: continue home lisinopril and metoprolol succinate GERD: continue home ppi Hx of migraines: continue home daily riboflavin Dispo: Med/Surg Diet: DMII CODE STATUS: Full code DVT prophylaxis: Lovenox SQ Admission and Anticipated Discharge Date Admission Date: May 26, 2023 Subjective Pt seen in follow up of UTI Found w/ feces on the floor and up her back, has no caretakers now over the weekend per report Seen working with PT - walking w/ walker in room Currently sitting in her chair in NAD No chest pain, shortness of breath, no palpitations Does not remember what happened prior to her coming to the hospital Currently denies any dysuria Review of Systems Review of Systems: All systems reviewed & are unremarkable except as noted in Subjective Physical Exam Physical Exam: General: Alert, oriented. No acute distress Skin: No noted rashes or bruises HEENT: NC/AT Chest: Nontender to palpation. CV: RRR Resp: Breath sounds clear bilaterally, no increased effort of breathing. Abdomen: Soft, nontender, nondistended. Extremities: No edema in lower extremities bilaterally. Neuro: awake alert and able to answer simple questions appropriately. does not remember what happened prior to coming to the hospital. Moves extremities. Results & Data Results & Data Vital Signs (Past 12 Hours) Vital Signs Temp Pulse Resp BP Pulse Ox O2 Del Method 05/26/23 19:46 36.7 C 58 L 16 106/63 99 Room Air Laboratory Results 05/27/23 05/26/23 05/26/23 Range/Units 05:23 Unknown 20:16 WBC 4.84 (4.8-10.8) K/ul RBC 3.51 L (4.20-5.40) M/uL Hgb 10.3 L (12.0-16.0) g/dl Hct 31.8 L (37.0-47.0) % MCV 90.6 (80.0-100.0) fL MCH 29.3 (25.0-34.0) pg MCHC 32.4 (32.0-36.0) g/dL RDW Std Deviation 46.4 H (36.4-46.3) fL RDW Coeff of Cyn 13.9 (11.5-14.5) % Plt Count 202 (130-400) K/uL MPV 10.4 (9.4-12.4) fL Immature Gran % (Auto) 0.2 % Neut % (Auto) 49.2 % Lymph % (Auto) 39.9 % [place] % (Auto) 9.3 % Eos % (Auto) 0.4 % Baso % (Auto) 1.0 % Neut # (Auto) 2.38 (1.40-6.50) K/uL Lymph # (Auto) 1.93 (1.20-3.40) K/uL [place] # (Auto) 0.45 (0.11-0.59) K/uL Eos # (Auto) 0.02 (0.00-0.50) K/uL Baso # (Auto) 0.05 (0.00-0.20) K/uL Immature Gran # (Auto) 0.01 (0.01-0.20) K/uL Sodium 141 (136-145) mmol/L Potassium 4.0 (3.5-5.1) mmol/L Chloride 109 H (98-107) mmol/L Carbon Dioxide 27 (21-32) mmol/L Anion Gap 5 (3-11) BUN 17 (6-23) mg/dl Creatinine 0.66 (0.6-1.2) mg/dl Est Cr Clr Drug Dosing 68.3 ml/min Est GFR ( Amer) 101.6 ml/min Est GFR (Non-Af Amer) 87.6 ml/min BUN/Creatinine Ratio 25.8 H (10-20) Glucose 103 H (70-99(Fasting)) mg/dl POC Glucose 104 H (70-99) mg/dl Estimat Average Glucose Hemoglobin A1c Lactate (0.4-2.0) mmol/L Calcium 8.4 L (8.6-10.3) mg/dl Phosphorus 2.9 (2.5-4.9) mg/dl Magnesium 1.9 (1.7-2.4) mg/dl Total Bilirubin 0.4 (0.2-1.0) mg/dl AST 11 L (13-39) U/L ALT 9 (7-52) U/L Alkaline Phosphatase 55 (34-104) U/L Troponin I High Sens (0-14) pg/ml Total Protein 5.2 L (6.0-8.3) gm/dl Albumin 3.3 L (3.4-5.0) gm/dl Globulin 1.9 L (2.5-4.0) gm/dl Albumin/Globulin Ratio 1.7 (0.9-2) Procalcitonin < 0.05 (0-0.5) ng/ml TSH (0.300-4.500) uIu/ml Urine Color Dark Yellow Urine Appearance Turbid A (Clear) Urine pH 6.5 (4.5-7.5) Ur Specific [place] 1.018 (1.000-1.030) Urine Protein Trace H (Negative) Urine Glucose (UA) Negative (Negative) Urine Ketones Negative (Negative) Urine Blood 1+ H (Negative) Urine Nitrite Negative (Negative) Urine Bilirubin Negative (Negative) Urine Urobilinogen Negative (Negative) Ur Leukocyte Esterase 3+ H (Negative) Urine WBC (Auto) >30 H (0-5) /hpf Urine RBC (Auto) 5-10 H (0-4) /hpf U Hyaline Cast (Auto) 1-5 (0-5) /lpf U Epithel Cells (Auto) >30 H (0-5) /lpf Urine Bacteria (Auto) 4+ H (Negative) Adenovirus (PCR) (NotDetected) B. pertussis DNA (PCR) (NotDetected) B.parapertussis DNA PCR (NotDetected) C. pneumoniae DNA (PCR) (NotDetected) Coronavirus OC43 (PCR) (NotDetected) Coronavirus HKU1 (PCR) (NotDetected) Coronavirus 229E (PCR) (NotDetected) SARS-CoV-2 (PCR) (NotDetected) Coronavirus NL63 (PCR) (NotDetected) Human Metapneumovir PCR (NotDetected) Influenza Type A (PCR) (NotDetected) Influenza Type B (PCR) (NotDetected) M. pneumoniae (PCR) (NotDetected) Parainfluenza 1 (PCR) (NotDetected) Parainfluenza 2 (PCR) (NotDetected) Parainfluenza 3 (PCR) (NotDetected) Parainfluenza 4 (PCR) (NotDetected) RSV (PCR) (NotDetected) Entero/Rhino (PCR) (NotDetected) 05/26/23 05/26/23 05/26/23 Range/Units 18:14 16:01 13:08 WBC 7.37 (4.8-10.8) K/ul RBC 4.07 L (4.20-5.40) M/uL Hgb 11.9 L (12.0-16.0) g/dl Hct 37.0 (37.0-47.0) % MCV 90.9 (80.0-100.0) fL MCH 29.2 (25.0-34.0) pg MCHC 32.2 (32.0-36.0) g/dL RDW Std Deviation 47.0 H (36.4-46.3) fL RDW Coeff of Cyn 14.1 (11.5-14.5) % Plt Count 220 (130-400) K/uL MPV 10.3 (9.4-12.4) fL Immature Gran % (Auto) 0.4 % Neut % (Auto) 73.0 % Lymph % (Auto) 15.3 % Sab[place] % (Auto) 10.4 % Eos % (Auto) 0.0 % Baso % (Auto) 0.9 % Neut # (Auto) 5.37 (1.40-6.50) K/uL Lymph # (Auto) 1.13 L (1.20-3.40) K/uL [place] # (Auto) 0.77 H (0.11-0.59) K/uL Eos # (Auto) 0.00 (0.00-0.50) K/uL Baso # (Auto) 0.07 (0.00-0.20) K/uL Immature Gran # (Auto) 0.03 (0.01-0.20) K/uL Sodium 140 (136-145) mmol/L Potassium 4.2 (3.5-5.1) mmol/L Chloride 106 (98-107) mmol/L Carbon Dioxide 27 (21-32) mmol/L Anion Gap 7 (3-11) BUN 16 (6-23) mg/dl Creatinine 0.82 (0.6-1.2) mg/dl Est Cr Clr Drug Dosing 55.0 ml/min Est GFR ( Amer) 82.3 ml/min Est GFR (Non-Af Amer) 71.0 ml/min BUN/Creatinine Ratio 19.5 (10-20) Glucose 142 H (70-99(Fasting)) mg/dl POC Glucose 127 H (70-99) mg/dl Estimat Average Glucose Pending Hemoglobin A1c Pending Lactate 2.3 H* 2.2 H* (0.4-2.0) mmol/L Calcium 8.9 (8.6-10.3) mg/dl Phosphorus (2.5-4.9) mg/dl Magnesium 1.9 (1.7-2.4) mg/dl Total Bilirubin 0.6 (0.2-1.0) mg/dl AST 17 (13-39) U/L ALT 11 (7-52) U/L Alkaline Phosphatase 65 (34-104) U/L Troponin I High Sens 6.3 (0-14) pg/ml Total Protein 6.0 (6.0-8.3) gm/dl Albumin 3.7 (3.4-5.0) gm/dl Globulin 2.3 L (2.5-4.0) gm/dl Albumin/Globulin Ratio 1.6 (0.9-2) Procalcitonin (0-0.5) ng/ml TSH 1.019 (0.300-4.500) uIu/ml Urine Color Urine Appearance (Clear) Urine pH (4.5-7.5) Ur Specific [place] (1.000-1.030) Urine Protein (Negative) Urine Glucose (UA) (Negative) Urine Ketones (Negative) Urine Blood (Negative) Urine Nitrite (Negative) Urine Bilirubin (Negative) Urine Urobilinogen (Negative) Ur Leukocyte Esterase (Negative) Urine WBC (Auto) (0-5) /hpf Urine RBC (Auto) (0-4) /hpf U Hyaline Cast (Auto) (0-5) /lpf U Epithel Cells (Auto) (0-5) /lpf Urine Bacteria (Auto) (Negative) Adenovirus (PCR) Not Detected (NotDetected) B. pertussis DNA (PCR) Not Detected (NotDetected) B.parapertussis DNA PCR Not Detected (NotDetected) C. pneumoniae DNA (PCR) Not Detected (NotDetected) Coronavirus OC43 (PCR) Not Detected (NotDetected) Coronavirus HKU1 (PCR) Not Detected (NotDetected) Coronavirus 229E (PCR) Not Detected (NotDetected) SARS-CoV-2 (PCR) Not Detected (NotDetected) Coronavirus NL63 (PCR) Not Detected (NotDetected) Human Metapneumovir PCR Not Detected (NotDetected) Influenza Type A (PCR) Not Detected (NotDetected) Influenza Type B (PCR) Not Detected (NotDetected) M. pneumoniae (PCR) Not Detected (NotDetected) Parainfluenza 1 (PCR) Not Detected (NotDetected) Parainfluenza 2 (PCR) Not Detected (NotDetected) Parainfluenza 3 (PCR) Not Detected (NotDetected) Parainfluenza 4 (PCR) Not Detected (NotDetected) RSV (PCR) Not Detected (NotDetected) Entero/Rhino (PCR) Not Detected (NotDetected) 05/26/23 Range/Units 12:40 WBC (4.8-10.8) K/ul RBC (4.20-5.40) M/uL Hgb (12.0-16.0) g/dl Hct (37.0-47.0) % MCV (80.0-100.0) fL MCH (25.0-34.0) pg MCHC (32.0-36.0) g/dL RDW Std Deviation (36.4-46.3) fL RDW Coeff of Cyn (11.5-14.5) % Plt Count (130-400) K/uL MPV (9.4-12.4) fL Immature Gran % (Auto) % Neut % (Auto) % Lymph % (Auto) % [place] % (Auto) % Eos % (Auto) % Baso % (Auto) % Neut # (Auto) (1.40-6.50) K/uL Lymph # (Auto) (1.20-3.40) K/uL [place] # (Auto) (0.11-0.59) K/uL Eos # (Auto) (0.00-0.50) K/uL Baso # (Auto) (0.00-0.20) K/uL Immature Gran # (Auto) (0.01-0.20) K/uL Sodium (136-145) mmol/L Potassium (3.5-5.1) mmol/L Chloride (98-107) mmol/L Carbon Dioxide (21-32) mmol/L Anion Gap (3-11) BUN (6-23) mg/dl Creatinine (0.6-1.2) mg/dl Est Cr Clr Drug Dosing ml/min Est GFR ( Amer) ml/min Est GFR (Non-Af Amer) ml/min BUN/Creatinine Ratio (10-20) Glucose (70-99(Fasting)) mg/dl POC Glucose 131 H (70-99) mg/dl Estimat Average Glucose Hemoglobin A1c Lactate (0.4-2.0) mmol/L Calcium (8.6-10.3) mg/dl Phosphorus (2.5-4.9) mg/dl Magnesium (1.7-2.4) mg/dl Total Bilirubin (0.2-1.0) mg/dl AST (13-39) U/L ALT (7-52) U/L Alkaline Phosphatase (34-104) U/L Troponin I High Sens (0-14) pg/ml Total Protein (6.0-8.3) gm/dl Albumin (3.4-5.0) gm/dl Globulin (2.5-4.0) gm/dl Albumin/Globulin Ratio (0.9-2) Procalcitonin (0-0.5) ng/ml TSH (0.300-4.500) uIu/ml Urine Color Urine Appearance (Clear) Urine pH (4.5-7.5) Ur Specific [place] (1.000-1.030) Urine Protein (Negative) Urine Glucose (UA) (Negative) Urine Ketones (Negative) Urine Blood (Negative) Urine Nitrite (Negative) Urine Bilirubin (Negative) Urine Urobilinogen (Negative) Ur Leukocyte Esterase (Negative) Urine WBC (Auto) (0-5) /hpf Urine RBC (Auto) (0-4) /hpf U Hyaline Cast (Auto) (0-5) /lpf U Epithel Cells (Auto) (0-5) /lpf Urine Bacteria (Auto) (Negative) Adenovirus (PCR) (NotDetected) B. pertussis DNA (PCR) (NotDetected) B.parapertussis DNA PCR (NotDetected) C. pneumoniae DNA (PCR) (NotDetected) Coronavirus OC43 (PCR) (NotDetected) Coronavirus HKU1 (PCR) (NotDetected) Coronavirus 229E (PCR) (NotDetected) SARS-CoV-2 (PCR) (NotDetected) Coronavirus NL63 (PCR) (NotDetected) Human Metapneumovir PCR (NotDetected) Influenza Type A (PCR) (NotDetected) Influenza Type B (PCR) (NotDetected) M. pneumoniae (PCR) (NotDetected) Parainfluenza 1 (PCR) (NotDetected) Parainfluenza 2 (PCR) (NotDetected) Parainfluenza 3 (PCR) (NotDetected) Parainfluenza 4 (PCR) (NotDetected) RSV (PCR) (NotDetected) Entero/Rhino (PCR) (NotDetected) Medications Administered Current Inpatient Medications Acetaminophen (Acetaminophen 500 Mg Tab) 1,000 mg PO Q8H PRN PRN Reason: Mild Pain (Scale 1, 2, 3) Stop: 06/25/23 17:50 Last Admin: 05/26/23 20:12 Dose: 1,000 mg Aspirin (Aspirin 81 Mg Chew) 81 mg PO DAILY JAMEL Stop: 06/26/23 08:59 Atorvastatin Calcium (Atorvastatin 20 Mg Tab) 20 mg PO PM JAMEL Stop: 06/25/23 20:59 Last Admin: 05/26/23 20:07 Dose: 20 mg Clozapine (Clozapine 100 Mg Tab) 300 mg PO HS JAMEL Stop: 06/25/23 20:59 Last Admin: 05/26/23 20:07 Dose: 300 mg Clozapine (Clozapine 25 Mg Tab) 50 mg PO QAM JAMEL Stop: 06/26/23 08:59 Dextrose (Dextrose 50% 50 Ml Syringe) 25 - 50 ml IV UD PRN; Protocol PRN Reason: Hypoglycemia Protocol Stop: 06/25/23 17:50 Docusate Sodium (Docusate Sodium 100 Mg Cap) 100 mg PO BID JAMEL Stop: 06/25/23 20:59 Last Admin: 05/26/23 20:07 Dose: Not Given Duloxetine HCl (Duloxetine Hcl 60 Mg Cap) 60 mg PO QAM JAMEL Stop: 06/26/23 08:59 Enoxaparin Sodium (Enoxaparin Inj 40 Mg/0.4 Ml Syr) 40 mg SQ Q24H JAMEL Stop: 06/25/23 17:59 Last Admin: 05/26/23 20:07 Dose: 40 mg Fluticasone Propionate (Fluticasone Propionate Na Spr 16 Gm Btl) 2 sprays DONI DAILY JAMEL Stop: 06/26/23 08:59 Gabapentin (Gabapentin 100 Mg Cap) 200 mg PO BID [facility] Stop: 06/25/23 20:59 Last Admin: 05/26/23 20:06 Dose: 200 mg Gabapentin (Gabapentin 100 Mg Cap) 100 mg PO DAILY@1400 [facility] Stop: 06/26/23 13:59 Glucagon (Glucagon For Inj 1 Mg Vial) 1 mg SQ UD PRN; Protocol PRN Reason: Hypoglycemia Protocol Stop: 06/25/23 17:50 Glucose (Glucose 10 Tab/Tube) 4 - 8 tab PO UD PRN; Protocol PRN Reason: Hypoglycemia Treatment Stop: 06/25/23 17:50 Glucose (Glucose 40% Gel 15 Gm Tube) 15 - 30 gm PO UD PRN; Protocol PRN Reason: Hypoglycemia Protocol Stop: 06/25/23 17:50 Sodium Chloride (Nss) 1,000 mls @ 80 mls/hr IV .[id number] [facility] Stop: 05/27/23 18:50 Last Admin: 05/27/23 06:27 Dose: 80 mls/hr Aztreonam 2,000 mg/ Dextrose 100 mls @ 100 mls/hr IV Q8H [facility]; Protocol Stop: 06/05/23 22:59 Last Admin: 05/27/23 06:27 Dose: 100 mls/hr Insulin Aspart (Insulin Aspart Per Unit Charge) 0 units SC ACHS [facility] Stop: 06/25/23 17:50 Last Admin: 05/26/23 20:18 Dose: Not Given Ketorolac Tromethamine (Ketorolac Tromethamine 15 Mg/Ml Vial) 15 mg IV Q6H PRN PRN Reason: Moderate Pain (Scale 4, 5, 6) Stop: 05/31/23 17:50 Last Admin: 05/26/23 22:47 Dose: 15 mg Levothyroxine Sodium (Levothyroxine Sodium 50 Mcg Tablet) 50 mcg PO DAILYBB [facility] Stop: 06/26/23 06:29 Last Admin: 05/27/23 06:27 Dose: 50 mcg Lisinopril (Lisinopril 20 Mg Tab) 20 mg PO [facility] Stop: 06/26/23 08:59 Magnesium Hydroxide (Magnesium Hydroxide Susp 30 Ml Udc) 30 ml PO Q6H PRN PRN Reason: constipation Stop: 06/25/23 17:50 Magnesium Oxide (Magnesium Oxide 400 Mg Tab) [facility] [place] Stop: 06/26/23 08:59 Metoprolol Succinate (Metoprolol Succ 50mg Ext Rel Tab) 50 mg PO DAILY JAMEL Stop: 06/26/23 08:59 Miscellaneous (Carbohydrates For Hypoglycemia ) 15 - 30 gm PO UD PRN PRN Reason: Hypoglycemia Protocol Stop: 06/25/23 17:50 Ondansetron HCl (Ondansetron 4 Mg Od Tab) 4 mg PO Q8H PRN PRN Reason: Nausea Stop: 06/25/23 17:50 Pantoprazole Sodium (Pantoprazole 40 Mg Tab) 40 mg PO HS [facility] Stop: 06/25/23 20:59 Last Admin: 05/26/23 20:11 Dose: 40 mg Polyethylene Glycol (Polyethylene (Miralax) 17 Gm Pack) 17 gm PO DAILY PRN PRN Reason: constipation Stop: 06/25/23 17:50 Vitamin B Complex (Vitamin B Complex Tab) 1 tab PO QAM JAMEL Stop: 06/26/23 08:59
[2023-05-27] MEDS: INSULIN ASPART PER UNIT CHARGE SC SCH ×4 (08:10→20:38)
--- NOTE | 2023-05-27 08:14 | Electrocardiogram Report ---
Test Reason : Blood Pressure : / mmHG Vent. Rate : 055 BPM Atrial Rate : 055 BPM P-R Int : 108 ms QRS Dur : 078 ms QT Int : 466 ms P-R-T Axes : 083 068 024 degrees QTc Int : 445 ms Sinus bradycardia with short NM Diffuse Minor Nonspecific ST abnormality Abnormal ECG When compared with ECG of 08-MAR-2023 13:05, Nonspecific T wave abnormality no longer evident in Anterolateral leads Confirmed by Dimitris Cage ([id number]) on 05/27/2023 8:13:47 AM Referred By: Confirmed By:Dimitris Cage
[2023-05-27] MEDS: VITAMIN B COMPLEX TAB PO SCH (08:15)
[2023-05-27] MEDS: MAGNESIUM OXIDE 400 MG TAB PO SCH (08:15)
[2023-05-27] MEDS: ASPIRIN 81 MG CHEW PO SCH (08:16)
[2023-05-27] MEDS: lisinopril 20 MG TAB PO SCH (08:16)
[2023-05-27] MEDS: cloZAPine 25 MG TAB PO SCH (08:16)
[2023-05-27] MEDS: DOCUSATE SODIUM 100 MG CAP PO SCH ×2 (08:16→20:33)
[2023-05-27] MEDS: DULoxetine HCL 60 MG CAP PO SCH (08:16)
[2023-05-27] MEDS: FLUTICASONE PROPIONATE NA SPR 16 GM BTL NAE SCH (08:18)
[2023-05-27] MEDS: GABAPENTIN 100 MG CAP PO SCH ×3 (08:18→20:33)
[2023-05-27] MEDS: METOPROLOL SUCC 50MG EXT REL TAB PO SCH (08:18)
[2023-05-27] MEDS: POLYETHYLENE (MIRALAX) 17 GM PACK PO SCH (12:16)
[2023-05-27 13:05] LABS: A calco-baum cmplx NotReported Not Detected (NotDetected); Bact fragilis Not Reported Not Detected (NotDetected); Blood Culture Id Panel PCR Panel Negative (NotDetected); C auris Not Reported Not Detected (NotDetected); Calbicans Not Reported Not Detected (NotDetected); Candida glabrata Not Reported Not Detected (NotDetected); Candida krusei Not Reported Not Detected (NotDetected); Cneoformans/gatti Not Reported Not Detected (NotDetected); Cparapsilosis Not Reported Not Detected (NotDetected); E cloacae compx Not Reported Not Detected (NotDetected); Efaecalis Not Reported Not Detected (NotDetected); Efaecium Not Reported Not Detected (NotDetected); Enterobacterales Not Reported Not Detected (NotDetected); Escherichia coli Not Reported Not Detected (NotDetected); H influenzae Not Reported Not Detected (NotDetected); K aerogenes Not Reported Not Detected (NotDetected); Koxytoca Not Reported Not Detected (NotDetected); Kpneumoniae grp Not Reported Not Detected (NotDetected); Lmonocyt Not Reported Not Detected (NotDetected); N meningitidis Not Reported Not Detected (NotDetected); P aeruginosa Not Reported Not Detected (NotDetected); Proteus spp Not Reported Not Detected (NotDetected); Salmonella spp Not Reported Not Detected (NotDetected); Smarcescens Not Reported Not Detected (NotDetected); Staph lugdunensis Not Reported Not Detected (NotDetected); Staph spp. Not Reported Not Detected (NotDetected); Staphaureus Not Reported Not Detected (NotDetected); Staphepi Not Reported Not Detected (NotDetected); Stenmaltophilia Not Reported Not Detected (NotDetected); Strep agal(GrpB) Not Reported Not Detected (NotDetected); Strep pneum Not Reported Not Detected (NotDetected); Strep pyog (GrpA) Not Reported Not Detected (NotDetected); Strep spp Not Reported Not Detected (NotDetected)
[2023-05-27] MEDS: ENOXAPARIN INJ 40 MG/0.4 ML SYR SQ SCH (17:07)
[2023-05-27] MEDS: PANTOprazole 40 MG TAB PO SCH (20:33)
[2023-05-27] MEDS: cloZAPine 100 MG TAB PO SCH (20:33)
[2023-05-27] MEDS: ATORVASTATIN 20 MG TAB PO SCH (20:34)
[2023-05-27] MEDS: ACETAMINOPHEN 500 MG TAB PO PRN (20:36)
[2023-05-28] MEDS: AZTREONAM 2,000 MG in DEXTROSE 5% MINI-B 100 ML IV SCH ×2 (06:39→14:56)
[2023-05-28] MEDS: LEVOTHYROXINE SODIUM 50 MCG TABLET PO SCH (06:39)
[2023-05-28 07:39] LABS: Estimated Average Glucose 123 mg/dl; Hemoglobin A1C 5.9 % (4.5-5.6)
--- NOTE | 2023-05-28 08:05 | Hospitalist Progress Note ---
Date of Service May 28, 2023 Assessment & Plan (1) Acute UTI: (2) Weakness: (3) DM2 (diabetes mellitus, type 2): (4) Debilitated: Plan Pt is a 72yoF with PMHx significant for HTN, HLD, DMII, hypothyroidism, Hx of brain tumor s/p partial resection years ago (unknown pathology), somatization disorder, schizophrenia, history of migraine, chronic anemia, recurrent UTIs, urinary incontinence and urinary bladder diverticulum presenting with weakness. Generalized weakness/ UTI Pt AAOx2, states that she just felt extremely weak today. Per emergency providers, she was found sitting on the toilet unable to get up with feces all over the floor. States once more that she does not recall how she ended up in the ambulance and is unsure exactly what happened. States she is weak and tired with some nausea. Denies headache, chest pain, SOB, cough, congestion, abdominal pain, dysuria, or vomiting episodes. Head CT with no acute changes, MRI brain last done in Mar, consider repeating if symptoms persist after UTI treatment. Lactate elevated at 2.2, procalcitonin negative Received 1L of fluids in the ED Chest xray with no acute changes, EKG with noted sinus bradycardia. UA suggestive of infection, urine Cx posit. for Gram negative bacilli -> E.coli Blood Cx x2 obtained. 1 bottle posit. for alpha strep not S. pne/ entero, blood cultx PCR negat. - likely contaminant Received a dose of Aztreonam in the ED, continued. Will switch to cefdinir 300 bid PT/OT Debilitation Complex Living/Social needs Per emergency provider, pt found with feces on the floor, up her back Reportedly had caregivers that came 7 days a week, now cut back to 5 days Case management consult placed for further assistance PT/OT DMII Last noted hgba1c of 5.8 in Mar 2023 Current hgba1c 5.9% Hold home metformin, ISS ordered. Chronic medical problems: HLD- continue home statin Vit D def- continue home Vit D supplement Schizophrenia/Mood/Neuropathy/Pain- continue home clozapine, cymbalta, gabapentin Hypothyroidism- current TSH 1 (wnl), continue home levothyroxine HTN: continue home lisinopril and metoprolol succinate GERD: continue home ppi Hx of migraines: continue home daily riboflavin Dispo: Med/Surg Diet: DMII CODE STATUS: Full code DVT prophylaxis: Lovenox SQ Admission and Anticipated Discharge Date Admission Date: May 26, 2023 Subjective Pt seen in follow up of UTI Found w/ feces on the floor and up her back, has no caretakers now over the weekend per report Seen working with PT - walking w/ walker in room Currently laying in bed in NAD No fever, chills, chest pain, shortness of breath, no palpitations Does not remember what happened prior to her coming to the hospital Currently denies any dysuria Review of Systems Review of Systems: All systems reviewed & are unremarkable except as noted in Subjective Physical Exam Physical Exam: General: Alert, oriented. No acute distress Skin: No noted rashes or bruises HEENT: NC/AT Chest: Nontender to palpation. CV: RRR Resp: Breath sounds clear bilaterally, no increased effort of breathing. Abdomen: Soft, nontender, nondistended. Extremities: No edema in lower extremities bilaterally. Neuro: awake alert and able to answer simple questions appropriately. does not remember what happened prior to coming to the hospital. Moves extremities. Results & Data Results & Data Vital Signs (Past 12 Hours) Vital Signs Temp Pulse Resp BP BP Pulse Ox O2 Del Method 05/28/23 08:03 37.2 C 67 16 165/76 H 98 Room Air 05/27/23 21:34 37.3 C 62 18 163/75 H 99 Room Air Laboratory Results 05/28/23 05/28/23 05/28/23 Range/Units 11:33 07:44 07:17 WBC 6.48 (4.8-10.8) K/ul RBC 3.71 L (4.20-5.40) M/uL Hgb 10.9 L (12.0-16.0) g/dl Hct 33.7 L (37.0-47.0) % MCV 90.8 (80.0-100.0) fL MCH 29.4 (25.0-34.0) pg MCHC 32.3 (32.0-36.0) g/dL RDW Std Deviation 46.7 H (36.4-46.3) fL RDW Coeff of Cyn 14.1 (11.5-14.5) % Plt Count 197 (130-400) K/uL MPV 10.7 (9.4-12.4) fL Sodium 138 (136-145) mmol/L Potassium 3.9 (3.5-5.1) mmol/L Chloride 107 (98-107) mmol/L Carbon Dioxide 26 (21-32) mmol/L Anion Gap 5 (3-11) BUN 13 (6-23) mg/dl Creatinine 0.69 (0.6-1.2) mg/dl Est Cr Clr Drug Dosing 65.3 ml/min Est GFR ( Amer) 100.1 ml/min Est GFR (Non-Af Amer) 86.4 ml/min BUN/Creatinine Ratio 18.8 (10-20) Glucose 117 H (70-99(Fasting)) mg/dl POC Glucose 132 H 116 H (70-99) mg/dl Estimat Average Glucose mg/dl Hemoglobin A1c (4.5-5.6) % Calcium 8.5 L (8.6-10.3) mg/dl Phosphorus 3.0 (2.5-4.9) mg/dl Magnesium 1.7 (1.7-2.4) mg/dl 05/27/23 05/27/23 05/26/23 Range/Units 20:33 16:39 13:08 WBC (4.8-10.8) K/ul RBC (4.20-5.40) M/uL Hgb (12.0-16.0) g/dl Hct (37.0-47.0) % MCV (80.0-100.0) fL MCH (25.0-34.0) pg MCHC (32.0-36.0) g/dL RDW Std Deviation (36.4-46.3) fL RDW Coeff of Cyn (11.5-14.5) % Plt Count (130-400) K/uL MPV (9.4-12.4) fL Sodium (136-145) mmol/L Potassium (3.5-5.1) mmol/L Chloride (98-107) mmol/L Carbon Dioxide (21-32) mmol/L Anion Gap (3-11) BUN (6-23) mg/dl Creatinine (0.6-1.2) mg/dl Est Cr Clr Drug Dosing ml/min Est GFR ( Amer) ml/min Est GFR (Non-Af Amer) ml/min BUN/Creatinine Ratio (10-20) Glucose (70-99(Fasting)) mg/dl POC Glucose 98 89 (70-99) mg/dl Estimat Average Glucose 123 mg/dl Hemoglobin A1c 5.9 H (4.5-5.6) % Calcium (8.6-10.3) mg/dl Phosphorus (2.5-4.9) mg/dl Magnesium (1.7-2.4) mg/dl Medications Administered Current Inpatient Medications Acetaminophen (Acetaminophen 500 Mg Tab) 1,000 mg PO Q8H PRN PRN Reason: Mild Pain (Scale 1, 2, 3) Stop: 06/25/23 17:50 Last Admin: 05/27/23 20:36 Dose: 1,000 mg Aspirin (Aspirin 81 Mg Chew) 81 mg PO DAILY [facility] Stop: 06/26/23 08:59 Last Admin: 05/27/23 08:16 Dose: 81 mg Atorvastatin Calcium (Atorvastatin 20 Mg Tab) 20 mg PO PM [facility] Stop: 06/25/23 20:59 Last Admin: 05/27/23 20:34 Dose: 20 mg Clozapine (Clozapine 100 Mg Tab) 300 mg PO HS [facility] Stop: 06/25/23 20:59 Last Admin: 05/27/23 20:33 Dose: 300 mg Clozapine (Clozapine 25 Mg Tab) 50 mg PO QAM [facility] Stop: 06/26/23 08:59 Last Admin: 05/27/23 08:16 Dose: 50 mg Dextrose (Dextrose 50% 50 Ml Syringe) 25 - 50 ml IV UD PRN; Protocol PRN Reason: Hypoglycemia Protocol Stop: 06/25/23 17:50 Docusate Sodium (Docusate Sodium 100 Mg Cap) 100 mg PO BID J[facility] Stop: 06/25/23 20:59 Last Admin: 05/27/23 20:33 Dose: Not Given Duloxetine HCl (Duloxetine Hcl 60 Mg Cap) 60 mg PO QAM [facility] Stop: 06/26/23 08:59 Last Admin: 05/27/23 08:16 Dose: 60 mg Enoxaparin Sodium (Enoxaparin Inj 40 Mg/0.4 Ml Syr) 40 mg SQ Q24H [facility] Stop: 06/25/23 17:59 Last Admin: 05/27/23 17:07 Dose: 40 mg Fluticasone Propionate (Fluticasone Propionate Na Spr 16 Gm Btl) 2 sprays DONI DAILY [facility] Stop: 06/26/23 08:59 Last Admin: 05/27/23 08:18 Dose: 2 sprays Gabapentin (Gabapentin 100 Mg Cap) 200 mg PO BID [facility] Stop: 06/25/23 20:59 Last Admin: 05/27/23 20:33 Dose: 200 mg Gabapentin (Gabapentin 100 Mg Cap) 100 mg PO DAILY@1400 [facility] Stop: 06/26/23 13:59 Last Admin: 05/27/23 14:45 Dose: 100 mg Glucagon (Glucagon For Inj 1 Mg Vial) 1 mg SQ UD PRN; Protocol PRN Reason: Hypoglycemia Protocol Stop: 06/25/23 17:50 Glucose (Glucose 10 Tab/Tube) 4 - 8 tab PO UD PRN; Protocol PRN Reason: Hypoglycemia Treatment Stop: 06/25/23 17:50 Glucose (Glucose 40% Gel 15 Gm Tube) 15 - 30 gm PO UD PRN; Protocol PRN Reason: Hypoglycemia Protocol Stop: 06/25/23 17:50 Aztreonam 2,000 mg/ Dextrose 100 mls @ 100 mls/hr IV Q8H [facility]; Protocol Stop: 06/05/23 22:59 Last Admin: 05/28/23 06:39 Dose: 100 mls/hr Insulin Aspart (Insulin Aspart Per Unit Charge) 0 units SC ACHS [facility] Stop: 06/25/23 17:50 Last Admin: 05/27/23 20:38 Dose: Not Given Ketorolac Tromethamine (Ketorolac Tromethamine 15 Mg/Ml Vial) 15 mg IV Q6H PRN PRN Reason: Moderate Pain (Scale 4, 5, 6) Stop: 05/31/23 17:50 Last Admin: 05/26/23 22:47 Dose: 15 mg Levothyroxine Sodium (Levothyroxine Sodium 50 Mcg Tablet) 50 mcg PO DAILYBB [facility] Stop: 06/26/23 06:29 Last Admin: 05/28/23 06:39 Dose: 50 mcg Lisinopril (Lisinopril 20 Mg Tab) [facility] [place] Stop: 06/26/23 08:59 Last Admin: 05/27/23 08:16 Dose: 20 mg Magnesium Hydroxide (Magnesium Hydroxide Susp 30 Ml Udc) 30 ml PO Q6H PRN PRN Reason: constipation Stop: 06/25/23 17:50 Magnesium Oxide (Magnesium Oxide 400 Mg Tab) 400 mg PO QAM [facility] Stop: 06/26/23 08:59 Last Admin: 05/27/23 08:15 Dose: 400 mg Metoprolol Succinate (Metoprolol Succ 50mg Ext Rel Tab) 50 mg PO DAILY [facility] Stop: 06/26/23 08:59 Last Admin: 05/27/23 08:18 Dose: 50 mg Miscellaneous (Carbohydrates For Hypoglycemia ) 15 - 30 gm PO UD PRN PRN Reason: Hypoglycemia Protocol Stop: 06/25/23 17:50 Ondansetron HCl (Ondansetron 4 Mg Od Tab) 4 mg PO Q8H PRN PRN Reason: Nausea Stop: 06/25/23 17:50 Pantoprazole Sodium (Pantoprazole 40 Mg Tab) 40 mg PO HS [facility] Stop: 06/25/23 20:59 Last Admin: 05/27/23 20:33 Dose: 40 mg Polyethylene Glycol (Polyethylene (Miralax) 17 Gm Pack) 17 gm PO DAILY [facility] Stop: 06/26/23 11:59 Last Admin: 05/27/23 12:16 Dose: Not Given Vitamin B Complex (Vitamin B Complex Tab) 1 tab PO QAM [facility] Stop: 06/26/23 08:59 Last Admin: 05/27/23 08:15 Dose: 1 tab
[2023-05-28 08:18] LABS: Hematocrit (blood only) 33.7 % (37.0-47.0); Hemoglobin 10.9 g/dl (12.0-16.0); Mean Corpuscular Hemoglobin 29.4 pg (25.0-34.0); Mean Corpuscular Hgb Conc 32.3 g/dL (32.0-36.0); Mean Corpuscular Volume 90.8 fL (80.0-100.0); Mean Platelet Volume 10.7 fL (9.4-12.4); Platelet Count 197 K/uL (130-400); RDW Coefficient of Variation 14.1 % (11.5-14.5); RDW Standard Deviation 46.7 fL (36.4-46.3); Red Blood Count 3.71 M/uL (4.20-5.40); White Blood Count 6.48 K/ul (4.8-10.8)
[2023-05-28 08:34] LABS: BUN Creatinine Ratio 18.8 (10-20); Calcium 8.5 mg/dl (8.6-10.3); Creatinine Clr Calc Pharmacy 65.3 ml/min; Est GFR (African American) 100.1 ml/min; Est GFR (Non-African American) 86.4 ml/min; Magnesium 1.7 mg/dl (1.7-2.4); Potassium 3.9 mmol/L (3.5-5.1)
[2023-05-28] MEDS: ASPIRIN 81 MG CHEW PO SCH (10:09)
[2023-05-28] MEDS: lisinopril 20 MG TAB PO SCH (10:10)
[2023-05-28] MEDS: GABAPENTIN 100 MG CAP PO SCH ×3 (10:10→20:48)
[2023-05-28] MEDS: FLUTICASONE PROPIONATE NA SPR 16 GM BTL NAE SCH (10:10)
[2023-05-28] MEDS: MAGNESIUM OXIDE 400 MG TAB PO SCH (10:10)
[2023-05-28] MEDS: cloZAPine 25 MG TAB PO SCH (10:10)
[2023-05-28] MEDS: DULoxetine HCL 60 MG CAP PO SCH (10:10)
[2023-05-28] MEDS: DOCUSATE SODIUM 100 MG CAP PO SCH ×2 (10:10→20:49)
[2023-05-28] MEDS: VITAMIN B COMPLEX TAB PO SCH (10:10)
[2023-05-28] MEDS: METOPROLOL SUCC 50MG EXT REL TAB PO SCH (10:11)
[2023-05-28] MEDS: POLYETHYLENE (MIRALAX) 17 GM PACK PO SCH (10:11)
[2023-05-28] MEDS: INSULIN ASPART PER UNIT CHARGE SC SCH ×4 (10:18→21:04)
[2023-05-28] MEDS: ACETAMINOPHEN 500 MG TAB PO PRN ×2 (12:24→21:01)
[2023-05-28] MEDS ORDERED: MAGNESIUM SULFATE / D5W 1 GM/100 ML BAG IV ONE (15:00)
[2023-05-28] MEDS: ADVANCED PROBIOTIC 1250 MG CAPSULE PO SCH (16:15)
[2023-05-28] MEDS: ENOXAPARIN INJ 40 MG/0.4 ML SYR SQ SCH (17:52)
[2023-05-28] MEDS: PANTOprazole 40 MG TAB PO SCH (20:48)
[2023-05-28] MEDS: ATORVASTATIN 20 MG TAB PO SCH (20:48)
[2023-05-28] MEDS: CEFDINIR 300 MG CAP PO SCH (20:49)
[2023-05-28] MEDS: cloZAPine 100 MG TAB PO SCH (20:49)
[2023-05-29] MEDS: LEVOTHYROXINE SODIUM 50 MCG TABLET PO SCH (05:47)
[2023-05-29 07:37] LABS: Hematocrit (blood only) 33.9 % (37.0-47.0); Mean Corpuscular Hemoglobin 29.3 pg (25.0-34.0); Mean Corpuscular Hgb Conc 32.4 g/dL (32.0-36.0); Mean Corpuscular Volume 90.4 fL (80.0-100.0); Mean Platelet Volume 10.1 fL (9.4-12.4); Platelet Count 196 K/uL (130-400); RDW Standard Deviation 46.5 fL (36.4-46.3); Red Blood Count 3.75 M/uL (4.20-5.40); White Blood Count 5.88 K/ul (4.8-10.8)
[2023-05-29 08:09] LABS: BUN Creatinine Ratio 16.9 (10-20); Calcium 8.2 mg/dl (8.6-10.3); Creatinine Clr Calc Pharmacy 63.5 ml/min; Est GFR (African American) 97.9 ml/min; Est GFR (Non-African American) 84.5 ml/min; Magnesium 1.7 mg/dl (1.7-2.4); Phosphorus 3.5 mg/dl (2.5-4.9); Potassium 3.7 mmol/L (3.5-5.1)
[2023-05-29] MEDS: INSULIN ASPART PER UNIT CHARGE SC SCH ×4 (09:14→21:20)
[2023-05-29] MEDS: CEFDINIR 300 MG CAP PO SCH ×2 (09:15→21:15)
[2023-05-29] MEDS: DOCUSATE SODIUM 100 MG CAP PO SCH ×2 (09:15→21:17)
[2023-05-29] MEDS: METOPROLOL SUCC 50MG EXT REL TAB PO SCH (09:16)
[2023-05-29] MEDS: GABAPENTIN 100 MG CAP PO SCH ×3 (09:16→21:16)
[2023-05-29] MEDS: POLYETHYLENE (MIRALAX) 17 GM PACK PO SCH (09:16)
[2023-05-29] MEDS: ASPIRIN 81 MG CHEW PO SCH (09:16)
[2023-05-29] MEDS: lisinopril 20 MG TAB PO SCH (09:17)
[2023-05-29] MEDS: cloZAPine 25 MG TAB PO SCH (09:17)
[2023-05-29] MEDS: ADVANCED PROBIOTIC 1250 MG CAPSULE PO SCH (09:17)
[2023-05-29] MEDS: DULoxetine HCL 60 MG CAP PO SCH (09:17)
[2023-05-29] MEDS: MAGNESIUM OXIDE 400 MG TAB PO SCH (09:18)
[2023-05-29] MEDS: FLUTICASONE PROPIONATE NA SPR 16 GM BTL NAE SCH (09:18)
[2023-05-29] MEDS: VITAMIN B COMPLEX TAB PO SCH (09:18)
--- NOTE | 2023-05-29 16:50 | Hospitalist Progress Note ---
Date of Service May 29, 2023 Assessment & Plan (1) Acute UTI: (2) Weakness: (3) DM2 (diabetes mellitus, type 2): (4) Debilitated: Plan Pt is a 72yoF with PMHx significant for HTN, HLD, DMII, hypothyroidism, Hx of brain tumor s/p partial resection years ago (unknown pathology), somatization disorder, schizophrenia, history of migraine, chronic anemia, recurrent UTIs, urinary incontinence and urinary bladder diverticulum presenting with weakness. Generalized weakness/ UTI Pt AAOx2, states that she just felt extremely weak today. Per emergency providers, she was found sitting on the toilet unable to get up with feces all over the floor. States once more that she does not recall how she ended up in the ambulance and is unsure exactly what happened. States she is weak and tired with some nausea. Denies headache, chest pain, SOB, cough, congestion, abdominal pain, dysuria, or vomiting episodes. Head CT with no acute changes, MRI brain last done in Mar, consider repeating if symptoms persist after UTI treatment. Lactate elevated at 2.2, procalcitonin negative Received 1L of fluids in the ED Chest xray with no acute changes, EKG with noted sinus bradycardia. UA suggestive of infection, urine Cx posit. for Gram negative bacilli -> E.coli Blood Cx x2 obtained. 1 bottle posit. for alpha strep not S. pne/ entero, blood cultx PCR negat. - likely contaminant Received a dose of Aztreonam in the ED, continued. Switched to cefdinir 300 bid PT/OT Debilitation Complex Living/Social needs Per emergency provider, pt found with feces on the floor, up her back Reportedly had caregivers that came 7 days a week, now cut back to 5 days Case management consult placed for further assistance PT/OT DMII Last noted hgba1c of 5.8 in Mar 2023 Current hgba1c 5.9% Hold home metformin, ISS ordered. Chronic medical problems: HLD- continue home statin Vit D def- continue home Vit D supplement Schizophrenia/Mood/Neuropathy/Pain- continue home clozapine, cymbalta, gabapentin Hypothyroidism- current TSH 1 (wnl), continue home levothyroxine HTN: continue home lisinopril and metoprolol succinate GERD: continue home ppi Hx of migraines: continue home daily riboflavin Dispo: Med/Surg Diet: DMII CODE STATUS: Full code DVT prophylaxis: Lovenox SQ Admission and Anticipated Discharge Date Admission Date: May 26, 2023 Subjective Pt seen in follow up of UTI Found w/ feces on the floor and up her back, has no caretakers now over the weekend per report Seen working with PT next day after admission - walking w/ walker in room Currently laying in bed in NAD, sleeping but awakens easily No fever, chills, chest pain, shortness of breath, no palpitations Does not remember what happened prior to her coming to the hospital Currently denies any dysuria Review of Systems Review of Systems: All systems reviewed & are unremarkable except as noted in Subjective Physical Exam Physical Exam: General: elderly thin F in NAD Skin: No noted rashes or bruises HEENT: NC/AT Chest: Nontender to palpation. CV: RRR Resp: Breath sounds clear bilaterally, no increased effort of breathing. Abdomen: Soft, nontender, nondistended. Extremities: No edema in lower extremities bilaterally. Neuro: sleepy but awakens easily, able to answer simple questions appropriately. does not remember what happened prior to coming to the hospital. Moves extremities. Results & Data Results & Data Vital Signs (Past 12 Hours) Vital Signs Temp Pulse Resp BP Pulse Ox O2 Del Method 05/29/23 15:31 37.1 C 72 16 111/67 99 Room Air 05/29/23 09:45 Room Air 05/29/23 07:53 36.7 C 62 16 177/92 H 97 Room Air Laboratory Results 05/29/23 05/29/23 05/29/23 Range/Units 16:36 11:47 07:39 WBC (4.8-10.8) K/ul RBC (4.20-5.40) M/uL Hgb (12.0-16.0) g/dl Hct (37.0-47.0) % MCV (80.0-100.0) fL MCH (25.0-34.0) pg MCHC (32.0-36.0) g/dL RDW Std Deviation (36.4-46.3) fL RDW Coeff of Cyn (11.5-14.5) % Plt Count (130-400) K/uL MPV (9.4-12.4) fL Sodium (136-145) mmol/L Potassium (3.5-5.1) mmol/L Chloride (98-107) mmol/L Carbon Dioxide (21-32) mmol/L Anion Gap (3-11) BUN (6-23) mg/dl Creatinine (0.6-1.2) mg/dl Est Cr Clr Drug Dosing ml/min Est GFR ( Amer) ml/min Est GFR (Non-Af Amer) ml/min BUN/Creatinine Ratio (10-20) Glucose (70-99(Fasting)) mg/dl POC Glucose 120 H 99 112 H (70-99) mg/dl Calcium (8.6-10.3) mg/dl Phosphorus (2.5-4.9) mg/dl Magnesium (1.7-2.4) mg/dl 05/29/23 05/28/23 Range/Units 07:13 20:22 WBC 5.88 (4.8-10.8) K/ul RBC 3.75 L (4.20-5.40) M/uL Hgb 11.0 L (12.0-16.0) g/dl Hct 33.9 L (37.0-47.0) % MCV 90.4 (80.0-100.0) fL MCH 29.3 (25.0-34.0) pg MCHC 32.4 (32.0-36.0) g/dL RDW Std Deviation 46.5 H (36.4-46.3) fL RDW Coeff of Cyn 14.0 (11.5-14.5) % Plt Count 196 (130-400) K/uL MPV 10.1 (9.4-12.4) fL Sodium 140 (136-145) mmol/L Potassium 3.7 (3.5-5.1) mmol/L Chloride 107 (98-107) mmol/L Carbon Dioxide 27 (21-32) mmol/L Anion Gap 6 (3-11) BUN 12 (6-23) mg/dl Creatinine 0.71 (0.6-1.2) mg/dl Est Cr Clr Drug Dosing 63.5 ml/min Est GFR ( Amer) 97.9 ml/min Est GFR (Non-Af Amer) 84.5 ml/min BUN/Creatinine Ratio 16.9 (10-20) Glucose 108 H (70-99(Fasting)) mg/dl POC Glucose 110 H (70-99) mg/dl Calcium 8.2 L (8.6-10.3) mg/dl Phosphorus 3.5 (2.5-4.9) mg/dl Magnesium 1.7 (1.7-2.4) mg/dl Medications Administered Current Inpatient Medications Acetaminophen (Acetaminophen 500 Mg Tab) 1,000 mg PO Q8H PRN PRN Reason: Mild Pain (Scale 1, 2, 3) Stop: 06/25/23 17:50 Last Admin: 05/28/23 21:01 Dose: 1,000 mg Aspirin (Aspirin 81 Mg Chew) 81 mg PO DAILY [facility] Stop: 06/26/23 08:59 Last Admin: 05/29/23 09:16 Dose: 81 mg Atorvastatin Calcium (Atorvastatin 20 Mg Tab) 20 mg PO PM [facility] Stop: 06/25/23 20:59 Last Admin: 05/28/23 20:48 Dose: 20 mg Cefdinir (Cefdinir 300 Mg Cap) 300 mg PO BID [facility] Stop: 06/02/23 09:01 Last Admin: 05/29/23 09:15 Dose: 300 mg Clozapine (Clozapine 100 Mg Tab) 300 mg PO HS JAM[facility]; Protocol Stop: 06/25/23 20:59 Last Admin: 05/28/23 20:49 Dose: 300 mg Clozapine (Clozapine 25 Mg Tab) 50 mg PO QAM [facility]; Protocol Stop: 06/26/23 08:59 Last Admin: 05/29/23 09:17 Dose: 50 mg Dextrose (Dextrose 50% 50 Ml Syringe) 25 - 50 ml IV UD PRN; Protocol PRN Reason: Hypoglycemia Protocol Stop: 06/25/23 17:50 Docusate Sodium (Docusate Sodium 100 Mg Cap) 100 mg PO BID [facility] Stop: 06/25/23 20:59 Last Admin: 05/29/23 09:15 Dose: 100 mg Duloxetine HCl (Duloxetine Hcl 60 Mg Cap) 60 mg PO QAM [facility] Stop: 06/26/23 08:59 Last Admin: 05/29/23 09:17 Dose: 60 mg Enoxaparin Sodium (Enoxaparin Inj 40 Mg/0.4 Ml Syr) 40 mg SQ Q24H [facility] Stop: 06/25/23 17:59 Last Admin: 05/28/23 17:52 Dose: 40 mg Fluticasone Propionate (Fluticasone Propionate Na Spr 16 Gm Btl) 2 sprays DONI DAILY [facility] Stop: 06/26/23 08:59 Last Admin: 05/29/23 09:18 Dose: 2 sprays Gabapentin (Gabapentin 100 Mg Cap) 200 mg PO BID [facility] Stop: 06/25/23 20:59 Last Admin: 05/29/23 09:16 Dose: 200 mg Gabapentin (Gabapentin 100 Mg Cap) 100 mg PO DAILY@1400 [facility] Stop: 06/26/23 13:59 Last Admin: 05/29/23 13:06 Dose: 100 mg Glucagon (Glucagon For Inj 1 Mg Vial) 1 mg SQ UD PRN; Protocol PRN Reason: Hypoglycemia Protocol Stop: 06/25/23 17:50 Glucose (Glucose 10 Tab/Tube) 4 - 8 tab PO UD PRN; Protocol PRN Reason: Hypoglycemia Treatment Stop: 06/25/23 17:50 Glucose (Glucose 40% Gel 15 Gm Tube) 15 - 30 gm PO UD PRN; Protocol PRN Reason: Hypoglycemia Protocol Stop: 06/25/23 17:50 Insulin Aspart (Insulin Aspart Per Unit Charge) 0 units SC ACHS [facility] Stop: 06/25/23 17:50 Last Admin: 05/29/23 13:05 Dose: 1 units Ketorolac Tromethamine (Ketorolac Tromethamine 15 Mg/Ml Vial) 15 mg IV Q6H PRN PRN Reason: Moderate Pain (Scale 4, 5, 6) Stop: 05/31/23 17:50 Last Admin: 05/26/23 22:47 Dose: 15 mg Lactobacillus Acidophilus (Advanced Probiotic 1250 Mg Capsule) 2 cap PO DAILY [facility] Stop: 06/27/23 15:14 Last Admin: 05/29/23 09:17 Dose: 2 cap Levothyroxine Sodium (Levothyroxine Sodium 50 Mcg Tablet) 50 mcg PO DAILYBB [facility] Stop: 06/26/23 06:29 Last Admin: 05/29/23 05:47 Dose: 50 mcg Lisinopril (Lisinopril 20 Mg Tab) 20 mg PO QAM [facility] Stop: 06/26/23 08:59 Last Admin: 05/29/23 09:17 Dose: 20 mg Magnesium Hydroxide (Magnesium Hydroxide Susp 30 Ml Udc) 30 ml PO Q6H PRN PRN Reason: constipation Stop: 06/25/23 17:50 Magnesium Oxide (Magnesium Oxide 400 Mg Tab) 400 mg PO QAM [facility] Stop: 06/26/23 08:59 Last Admin: 05/29/23 09:18 Dose: 400 mg Metoprolol Succinate (Metoprolol Succ 50mg Ext Rel Tab) 50 mg PO DAILY [facility] Stop: 06/26/23 08:59 Last Admin: 05/29/23 09:16 Dose: 50 mg Miscellaneous (Carbohydrates For Hypoglycemia ) 15 - 30 gm PO UD PRN PRN Reason: Hypoglycemia Protocol Stop: 06/25/23 17:50 Ondansetron HCl (Ondansetron 4 Mg Od Tab) 4 mg PO Q8H PRN PRN Reason: Nausea Stop: 06/25/23 17:50 Pantoprazole Sodium (Pantoprazole 40 Mg Tab) 40 mg PO HS [facility] Stop: 06/25/23 20:59 Last Admin: 05/28/23 20:48 Dose: 40 mg Polyethylene Glycol (Polyethylene (Miralax) 17 Gm Pack) 17 gm PO DAILY [facility] Stop: 06/26/23 11:59 Last Admin: 05/29/23 09:16 Dose: 17 gm Vitamin B Complex (Vitamin B Complex Tab) 1 tab PO QAM [facility] Stop: 06/26/23 08:59 Last Admin: 05/29/23 09:18 Dose: 1 tab
[2023-05-29] MEDS: ENOXAPARIN INJ 40 MG/0.4 ML SYR SQ SCH (18:42)
[2023-05-29] MEDS: ACETAMINOPHEN 500 MG TAB PO PRN (21:14)
[2023-05-29] MEDS: cloZAPine 100 MG TAB PO SCH (21:15)
[2023-05-29] MEDS: PANTOprazole 40 MG TAB PO SCH (21:15)
[2023-05-29] MEDS: ATORVASTATIN 20 MG TAB PO SCH (21:16)
[2023-05-30] MEDS: LEVOTHYROXINE SODIUM 50 MCG TABLET PO SCH (05:31)
[2023-05-30] MEDS: lisinopril 20 MG TAB PO SCH (07:59)
[2023-05-30] MEDS: ADVANCED PROBIOTIC 1250 MG CAPSULE PO SCH (07:59)
[2023-05-30] MEDS: METOPROLOL SUCC 50MG EXT REL TAB PO SCH (07:59)
[2023-05-30] MEDS: DULoxetine HCL 60 MG CAP PO SCH (07:59)
[2023-05-30] MEDS: POLYETHYLENE (MIRALAX) 17 GM PACK PO SCH (08:00)
[2023-05-30] MEDS: MAGNESIUM OXIDE 400 MG TAB PO SCH (08:00)
[2023-05-30] MEDS: ASPIRIN 81 MG CHEW PO SCH (08:00)
[2023-05-30] MEDS: CEFDINIR 300 MG CAP PO SCH ×2 (08:00→21:39)
[2023-05-30] MEDS: GABAPENTIN 100 MG CAP PO SCH ×3 (08:00→21:39)
[2023-05-30] MEDS: VITAMIN B COMPLEX TAB PO SCH (08:00)
[2023-05-30] MEDS: cloZAPine 25 MG TAB PO SCH (08:00)
[2023-05-30] MEDS: FLUTICASONE PROPIONATE NA SPR 16 GM BTL NAE SCH (08:01)
[2023-05-30] MEDS: DOCUSATE SODIUM 100 MG CAP PO SCH ×2 (08:05→21:40)
[2023-05-30] MEDS: INSULIN ASPART PER UNIT CHARGE SC SCH ×4 (08:10→21:40)
--- NOTE | 2023-05-30 16:30 | Hospitalist Progress Note ---
Date of Service May 30, 2023 Assessment & Plan (1) Acute UTI: (2) Weakness: (3) DM2 (diabetes mellitus, type 2): (4) Debilitated: Plan Pt is a 72yoF with PMHx significant for HTN, HLD, DMII, hypothyroidism, Hx of brain tumor s/p partial resection years ago (unknown pathology), somatization disorder, schizophrenia, history of migraine, chronic anemia, recurrent UTIs, urinary incontinence and urinary bladder diverticulum presenting with weakness. Generalized weakness/ UTI Pt AAOx2, states that she just felt extremely weak today. Per emergency providers, she was found sitting on the toilet unable to get up with feces all over the floor. States once more that she does not recall how she ended up in the ambulance and is unsure exactly what happened. States she is weak and tired with some nausea. Denies headache, chest pain, SOB, cough, congestion, abdominal pain, dysuria, or vomiting episodes. Head CT with no acute changes, MRI brain last done in Mar, consider repeating if symptoms persist after UTI treatment. Lactate elevated at 2.2, procalcitonin negative Received 1L of fluids in the ED Chest xray with no acute changes, EKG with noted sinus bradycardia. UA suggestive of infection, urine Cx posit. for Gram negative bacilli -> E.coli Blood Cx x2 obtained. 1 bottle posit. for alpha strep not S. pne/ entero, blood cultx PCR negat. - likely contaminant Received a dose of Aztreonam in the ED, continued. Switched to cefdinir 300 bid PT/OT - recommend 22/01 care - pt has caregivers M-F, CM involved - plan for [facility] Per emergency provider, pt found with feces on the floor, up her back Reportedly had caregivers that came 7 days a week, now cut back to 5 days Case management consult placed for further assistance PT/OT DMII Last noted hgba1c of 5.8 in Mar 2023 Current hgba1c 5.9% Hold home metformin, ISS ordered. Chronic medical problems: HLD- continue home statin Vit D def- continue home Vit D supplement Schizophrenia/Mood/Neuropathy/Pain- continue home clozapine, cymbalta, gabapentin Hypothyroidism- current TSH 1 (wnl), continue home levothyroxine HTN: continue home lisinopril and metoprolol succinate GERD: continue home ppi Hx of migraines: continue home daily riboflavin Dispo: Med/Surg Diet: DMII CODE STATUS: Full code DVT prophylaxis: Lovenox SQ Admission and Anticipated Discharge Date Admission Date: May 26, 2023 Subjective Pt seen in follow up of UTI Found w/ feces on the floor and up her back, has no caretakers now over the weekend per report Seen working with PT next day after admission - walking w/ walker in room Currently sitting up in chair in NAD No fever, chills, chest pain, shortness of breath, no palpitations Does not remember what happened prior to her coming to the hospital Currently denies any dysuria Discussed w/ CM - per PT needs / care, she has caregiver M-F. Plan to dc to [facility]. Review of Systems Review of Systems: All systems reviewed & are unremarkable except as noted in Subjective Physical Exam Physical Exam: General: elderly thin F in NAD Skin: No noted rashes or bruises HEENT: NC/AT Chest: Nontender to palpation. CV: RRR Resp: Breath sounds clear bilaterally, no increased effort of breathing. Abdomen: Soft, nontender, nondistended. Extremities: No edema in lower extremities bilaterally. Neuro: awake and alert, able to answer simple questions appropriately. does not remember what happened prior to coming to the hospital. Moves extremities. Results & Data Results & Data Vital Signs (Past 12 Hours) Vital Signs Temp Pulse Resp BP BP Pulse Ox O2 Del Method 05/30/23 14:47 36.9 C 58 L 17 125/72 99 Room Air 05/30/23 07:16 36.9 C 62 18 189/85 H 98 Room Air Laboratory Results 05/30/23 05/30/23 05/29/23 Range/Units 11: 07:23 20:35 POC Glucose 119 H 99 94 (70-99) mg/dl 05/29/23 Range/Units 16:36 POC Glucose 120 H (70-99) mg/dl Medications Administered Current Inpatient Medications Acetaminophen (Acetaminophen 500 Mg Tab) 1,000 mg PO Q8H PRN PRN Reason: Mild Pain (Scale 1, 2, 3) Stop: 06/25/23 17:50 Last Admin: 05/29/23 21:14 Dose: 1,000 mg Aspirin (Aspirin 81 Mg Chew) 81 mg PO DAILY [facility] Stop: 06/26/23 08:59 Last Admin: 05/30/23 08:00 Dose: 81 mg Atorvastatin Calcium (Atorvastatin 20 Mg Tab) 20 mg PO PM [facility] Stop: 06/25/23 20:59 Last Admin: 05/29/23 21:16 Dose: 20 mg Cefdinir (Cefdinir 300 Mg Cap) 300 mg PO BID [facility] Stop: 06/02/23 09:01 Last Admin: 05/30/23 08:00 Dose: 300 mg Clozapine (Clozapine 100 Mg Tab) 300 mg PO HS [facility]; Protocol Stop: 06/25/23 20:59 Last Admin: 05/29/23 21:15 Dose: 300 mg Clozapine (Clozapine 25 Mg Tab) 50 mg PO QAM [facility]; Protocol Stop: 06/26/23 08:59 Last Admin: 05/30/23 08:00 Dose: 50 mg Dextrose (Dextrose 50% 50 Ml Syringe) 25 - 50 ml IV UD PRN; Protocol PRN Reason: Hypoglycemia Protocol Stop: 06/25/23 17:50 Docusate Sodium (Docusate Sodium 100 Mg Cap) 100 mg PO BID [facility] Stop: 06/25/23 20:59 Last Admin: 05/30/23 08:05 Dose: 100 mg Duloxetine HCl (Duloxetine Hcl 60 Mg Cap) 60 mg PO QAM [facility] Stop: 06/26/23 08:59 Last Admin: 05/30/23 07:59 Dose: 60 mg Enoxaparin Sodium (Enoxaparin Inj 40 Mg/0.4 Ml Syr) 40 mg SQ Q24H [facility] Stop: 06/25/23 17:59 Last Admin: 05/29/23 18:42 Dose: 40 mg Fluticasone Propionate (Fluticasone Propionate Na Spr 16 Gm Btl) 2 sprays DONI DAILY [facility] Stop: 06/26/23 08:59 Last Admin: 05/30/23 08:01 Dose: 2 sprays Gabapentin (Gabapentin 100 Mg Cap) 200 mg PO BID [facility] Stop: 06/25/23 20:59 Last Admin: 05/30/23 08:00 Dose: 200 mg Gabapentin (Gabapentin 100 Mg Cap) 100 mg PO DAILY@1400 [facility] Stop: 06/26/23 13:59 Last Admin: 05/30/23 16:18 Dose: 100 mg Glucagon (Glucagon For Inj 1 Mg Vial) 1 mg SQ UD PRN; Protocol PRN Reason: Hypoglycemia Protocol Stop: 06/25/23 17:50 Glucose (Glucose 10 Tab/Tube) 4 - 8 tab PO UD PRN; Protocol PRN Reason: Hypoglycemia Treatment Stop: 06/25/23 17:50 Glucose (Glucose 40% Gel 15 Gm Tube) 15 - 30 gm PO UD PRN; Protocol PRN Reason: Hypoglycemia Protocol Stop: 06/25/23 17:50 Insulin Aspart (Insulin Aspart Per Unit Charge) 0 units SC ACHS [facility] Stop: 06/25/23 17:50 Last Admin: 05/30/23 12:18 Dose: 2 units Ketorolac Tromethamine (Ketorolac Tromethamine 15 Mg/Ml Vial) 15 mg IV Q6H PRN PRN Reason: Moderate Pain (Scale 4, 5, 6) Stop: 05/31/23 17:50 Last Admin: 05/26/23 22:47 Dose: 15 mg Lactobacillus Acidophilus (Advanced Probiotic 1250 Mg Capsule) 2 cap PO DAILY [facility] Stop: 06/27/23 15:14 Last Admin: 05/30/23 07:59 Dose: 2 cap Levothyroxine Sodium (Levothyroxine Sodium 50 Mcg Tablet) 50 mcg PO DAILYBB [facility] Stop: 06/26/23 06:29 Last Admin: 05/30/23 05:31 Dose: 50 mcg Lisinopril (Lisinopril 20 Mg Tab) 20 mg PO QAM [facility] Stop: 06/26/23 08:59 Last Admin: 05/30/23 07:59 Dose: 20 mg Magnesium Hydroxide (Magnesium Hydroxide Susp 30 Ml Udc) 30 ml PO Q6H PRN PRN Reason: constipation Stop: 06/25/23 17:50 Magnesium Oxide (Magnesium Oxide 400 Mg Tab) 400 mg PO QAM [facility] Stop: 06/26/23 08:59 Last Admin: 05/30/23 08:00 Dose: 400 mg Metoprolol Succinate (Metoprolol Succ 50mg Ext Rel Tab) 50 mg PO DAILY [facility] Stop: 06/26/23 08:59 Last Admin: 05/30/23 07:59 Dose: 50 mg Miscellaneous (Carbohydrates For Hypoglycemia ) 15 - 30 gm PO UD PRN PRN Reason: Hypoglycemia Protocol Stop: 06/25/23 17:50 Ondansetron HCl (Ondansetron 4 Mg Od Tab) 4 mg PO Q8H PRN PRN Reason: Nausea Stop: 06/25/23 17:50 Pantoprazole Sodium (Pantoprazole 40 Mg Tab) 40 mg PO HS [facility] Stop: 06/25/23 20:59 Last Admin: 05/29/23 21:15 Dose: 40 mg Polyethylene Glycol (Polyethylene (Miralax) 17 Gm Pack) 17 gm PO DAILY [facility] Stop: 06/26/23 11:59 Last Admin: 05/30/23 08:00 Dose: 17 gm Vitamin B Complex (Vitamin B Complex Tab) 1 tab PO QA [facility] Stop: 06/26/23 08:59 Last Admin: 05/30/23 08:00 Dose: 1 tab
[2023-05-30] MEDS: SENNA 8.6 MG TAB PO SCH (17:54)
[2023-05-30] MEDS: ENOXAPARIN INJ 40 MG/0.4 ML SYR SQ SCH (18:26)
[2023-05-30] MEDS: ACETAMINOPHEN 500 MG TAB PO PRN (21:37)
[2023-05-30] MEDS: ATORVASTATIN 20 MG TAB PO SCH (21:38)
[2023-05-30] MEDS: PANTOprazole 40 MG TAB PO SCH (21:39)
[2023-05-30] MEDS: cloZAPine 100 MG TAB PO SCH (21:39)
[2023-05-31] MEDS: LEVOTHYROXINE SODIUM 50 MCG TABLET PO SCH ×2 (05:33→05:38)
[2023-05-31 07:37] LABS: Hematocrit (blood only) 31.4 % (37.0-47.0); Hemoglobin 10.4 g/dl (12.0-16.0); Mean Corpuscular Hemoglobin 28.9 pg (25.0-34.0); Mean Corpuscular Hgb Conc 33.1 g/dL (32.0-36.0); Mean Corpuscular Volume 87.2 fL (80.0-100.0); Mean Platelet Volume 10.3 fL (9.4-12.4); Platelet Count 211 K/uL (130-400); RDW Coefficient of Variation 13.6 % (11.5-14.5); RDW Standard Deviation 43.3 fL (36.4-46.3); White Blood Count 4.84 K/ul (4.8-10.8)
[2023-05-31 07:54] LABS: BUN Creatinine Ratio 27.1 (10-20); Calcium 8.4 mg/dl (8.6-10.3); Creatinine Clr Calc Pharmacy 76.4 ml/min; Est GFR (African American) 105.4 ml/min; Est GFR (Non-African American) 90.9 ml/min; Magnesium 1.8 mg/dl (1.7-2.4); Phosphorus 3.6 mg/dl (2.5-4.9); Potassium 3.9 mmol/L (3.5-5.1)
[2023-05-31] MEDS: DULoxetine HCL 60 MG CAP PO SCH (08:45)
[2023-05-31] MEDS: SENNA 8.6 MG TAB PO SCH (08:45)
[2023-05-31] MEDS: ADVANCED PROBIOTIC 1250 MG CAPSULE PO SCH (08:45)
[2023-05-31] MEDS: INSULIN ASPART PER UNIT CHARGE SC SCH ×4 (08:45→20:25)
[2023-05-31] MEDS: lisinopril 20 MG TAB PO SCH (08:46)
[2023-05-31] MEDS: cloZAPine 25 MG TAB PO SCH (08:46)
[2023-05-31] MEDS: ASPIRIN 81 MG CHEW PO SCH (08:46)
[2023-05-31] MEDS: MAGNESIUM OXIDE 400 MG TAB PO SCH (08:47)
[2023-05-31] MEDS: METOPROLOL SUCC 50MG EXT REL TAB PO SCH (08:47)
[2023-05-31] MEDS: VITAMIN B COMPLEX TAB PO SCH (08:47)
[2023-05-31] MEDS: GABAPENTIN 100 MG CAP PO SCH ×3 (08:50→20:19)
[2023-05-31] MEDS: DOCUSATE SODIUM 100 MG CAP PO SCH ×2 (08:50→20:19)
[2023-05-31] MEDS: FLUTICASONE PROPIONATE NA SPR 16 GM BTL NAE SCH (08:50)
[2023-05-31] MEDS: POLYETHYLENE (MIRALAX) 17 GM PACK PO SCH (08:50)
[2023-05-31] MEDS: CEFDINIR 300 MG CAP PO SCH ×2 (08:50→20:20)
--- NOTE | 2023-05-31 15:16 | Hospitalist Progress Note ---
Date of Service May 31, 2023 Assessment & Plan (1) Acute UTI: (2) Weakness: (3) DM2 (diabetes mellitus, type 2): (4) Debilitated: Plan Pt is a 72yoF with PMHx significant for HTN, HLD, DMII, hypothyroidism, Hx of brain tumor s/p partial resection years ago (unknown pathology), somatization disorder, schizophrenia, history of migraine, chronic anemia, recurrent UTIs, urinary incontinence and urinary bladder diverticulum presenting with weakness. Generalized weakness/ UTI Pt AAOx2, states that she just felt extremely weak today. Per emergency providers, she was found sitting on the toilet unable to get up with feces all over the floor. States once more that she does not recall how she ended up in the ambulance and is unsure exactly what happened. States she is weak and tired with some nausea. Denies headache, chest pain, SOB, cough, congestion, abdominal pain, dysuria, or vomiting episodes. Head CT with no acute changes, MRI brain last done in Mar, consider repeating if symptoms persist after UTI treatment. Lactate elevated at 2.2, procalcitonin negative Received 1L of fluids in the ED Chest xray with no acute changes, EKG with noted sinus bradycardia. UA suggestive of infection, urine Cx posit. for Gram negative bacilli -> E.coli Blood Cx x2 obtained. 1 bottle posit. for alpha strep not S. pne/ entero, blood cultx PCR negat. - likely contaminant Received a dose of Aztreonam in the ED, continued. Switched to cefdinir 300 bid PT/OT - recommend 22/01 care - pt has caregivers M-F, CM involved - plan for [facility] Per emergency provider, pt found with feces on the floor, up her back Reportedly had caregivers that came 7 days a week, now cut back to 5 days Case management consult placed for further assistance PT/OT DMII Last noted hgba1c of 5.8 in Mar 2023 Current hgba1c 5.9% Hold home metformin, ISS ordered. Chronic medical problems: HLD- continue home statin Vit D def- continue home Vit D supplement Schizophrenia/Mood/Neuropathy/Pain- continue home clozapine, cymbalta, gabapentin Hypothyroidism- current TSH 1 (wnl), continue home levothyroxine HTN: continue home lisinopril and metoprolol succinate GERD: continue home ppi Hx of migraines: continue home daily riboflavin Dispo: Med/Surg Diet: DMII CODE STATUS: Full code DVT prophylaxis: Lovenox SQ Admission and Anticipated Discharge Date Admission Date: May 26, 2023 Subjective Pt seen in follow up of UTI Found w/ feces on the floor and up her back, has no caretakers now over the weekend per report Seen working with PT next day after admission - walking w/ walker in room Currently sitting up in chair in NAD No fever, chills, chest pain, shortness of breath, no palpitations Does not remember what happened prior to her coming to the hospital Currently denies any dysuria Discussed w/ CM - per PT needs / care, she has caregiver M-F. Plan to dc to [facility]. Review of Systems Review of Systems: All systems reviewed & are unremarkable except as noted in Subjective Physical Exam Physical Exam: General: elderly thin F in NAD Skin: No noted rashes or bruises HEENT: NC/AT Chest: Nontender to palpation. CV: RRR Resp: Breath sounds clear bilaterally, no increased effort of breathing. Abdomen: Soft, nontender, nondistended. Extremities: No edema in lower extremities bilaterally. Neuro: awake and alert, able to answer simple questions appropriately. does not remember what happened prior to coming to the hospital. Moves extremities. Results & Data Results & Data Vital Signs (Past 12 Hours) Vital Signs Temp Pulse Resp BP Pulse Ox O2 Del Method 05/31/23 07:03 36.8 C 57 L 17 175/80 H 98 Room Air Laboratory Results 05/31/23 05/31/23 05/31/23 Range/Units 11:36 07:30 06:27 WBC 4.84 (4.8-10.8) K/ul RBC 3.60 L (4.20-5.40) M/uL Hgb 10.4 L (12.0-16.0) g/dl Hct 31.4 L (37.0-47.0) % MCV 87.2 (80.0-100.0) fL MCH 28.9 (25.0-34.0) pg MCHC 33.1 (32.0-36.0) g/dL RDW Std Deviation 43.3 (36.4-46.3) fL RDW Coeff of Cyn 13.6 (11.5-14.5) % Plt Count 211 (130-400) K/uL MPV 10.3 (9.4-12.4) fL Sodium 140 (136-145) mmol/L Potassium 3.9 (3.5-5.1) mmol/L Chloride 106 (98-107) mmol/L Carbon Dioxide 29 (21-32) mmol/L Anion Gap 5 (3-11) BUN 16 (6-23) mg/dl Creatinine 0.59 L (0.6-1.2) mg/dl Est Cr Clr Drug Dosing 76.4 ml/min Est GFR ( Amer) 105.4 ml/min Est GFR (Non-Af Amer) 90.9 ml/min BUN/Creatinine Ratio 27.1 H (10-20) Glucose 90 (70-99(Fasting)) mg/dl POC Glucose 126 H 95 (70-99) mg/dl Calcium 8.4 L (8.6-10.3) mg/dl Phosphorus 3.6 (2.5-4.9) mg/dl Magnesium 1.8 (1.7-2.4) mg/dl 05/30/23 05/30/23 Range/Units 20:42 16:29 WBC (4.8-10.8) K/ul RBC (4.20-5.40) M/uL Hgb (12.0-16.0) g/dl Hct (37.0-47.0) % MCV (80.0-100.0) fL MCH (25.0-34.0) pg MCHC (32.0-36.0) g/dL RDW Std Deviation (36.4-46.3) fL RDW Coeff of Cyn (11.5-14.5) % Plt Count (130-400) K/uL MPV (9.4-12.4) fL Sodium (136-145) mmol/L Potassium (3.5-5.1) mmol/L Chloride (98-107) mmol/L Carbon Dioxide (21-32) mmol/L Anion Gap (3-11) BUN (6-23) mg/dl Creatinine (0.6-1.2) mg/dl Est Cr Clr Drug Dosing ml/min Est GFR ( Amer) ml/min Est GFR (Non-Af Amer) ml/min BUN/Creatinine Ratio (10-20) Glucose (70-99(Fasting)) mg/dl POC Glucose 95 111 H (70-99) mg/dl Calcium (8.6-10.3) mg/dl Phosphorus (2.5-4.9) mg/dl Magnesium (1.7-2.4) mg/dl Medications Administered Current Inpatient Medications Acetaminophen (Acetaminophen 500 Mg Tab) 1,000 mg PO Q8H PRN PRN Reason: Mild Pain (Scale 1, 2, 3) Stop: 06/25/23 17:50 Last Admin: 05/30/23 21:37 Dose: 1,000 mg Aspirin (Aspirin 81 Mg Chew) 81 mg PO DAILY [facility] Stop: 06/26/23 08:59 Last Admin: 05/31/23 08:46 Dose: 81 mg Atorvastatin Calcium (Atorvastatin 20 Mg Tab) 20 mg PO PM [facility] Stop: 06/25/23 20:59 Last Admin: 05/30/23 21:38 Dose: 20 mg Cefdinir (Cefdinir 300 Mg Cap) 300 mg PO BID [facility] Stop: 06/02/23 09:01 Last Admin: 05/31/23 08:50 Dose: 300 mg Clozapine (Clozapine 100 Mg Tab) 300 mg PO HS [facility]; Protocol Stop: 06/25/23 20:59 Last Admin: 05/30/23 21:39 Dose: 300 mg Clozapine (Clozapine 25 Mg Tab) 50 mg PO QAM [facility]; Protocol Stop: 06/26/23 08:59 Last Admin: 05/31/23 08:46 Dose: 50 mg Dextrose (Dextrose 50% 50 Ml Syringe) 25 - 50 ml IV UD PRN; Protocol PRN Reason: Hypoglycemia Protocol Stop: 06/25/23 17:50 Docusate Sodium (Docusate Sodium 100 Mg Cap) 100 mg PO BID [facility] Stop: 06/25/23 20:59 Last Admin: 05/31/23 08:50 Dose: 100 mg Duloxetine HCl (Duloxetine Hcl 60 Mg Cap) 60 mg PO QAM [facility] Stop: 06/26/23 08:59 Last Admin: 05/31/23 08:45 Dose: 60 mg Enoxaparin Sodium (Enoxaparin Inj 40 Mg/0.4 Ml Syr) 40 mg SQ Q24H [facility] Stop: 06/25/23 17:59 Last Admin: 05/30/23 18:26 Dose: 40 mg Fluticasone Propionate (Fluticasone Propionate Na Spr 16 Gm Btl) 2 sprays DONI DAILY [facility] Stop: 06/26/23 08:59 Last Admin: 05/31/23 08:50 Dose: 2 sprays Gabapentin (Gabapentin 100 Mg Cap) 200 mg PO BID [facility] Stop: 06/25/23 20:59 Last Admin: 05/31/23 08:50 Dose: 200 mg Gabapentin (Gabapentin 100 Mg Cap) 100 mg PO DAILY@1400 [facility] Stop: 06/26/23 13:59 Last Admin: 05/30/23 16:18 Dose: 100 mg Glucagon (Glucagon For Inj 1 Mg Vial) 1 mg SQ UD PRN; Protocol PRN Reason: Hypoglycemia Protocol Stop: 06/25/23 17:50 Glucose (Glucose 10 Tab/Tube) 4 - 8 tab PO UD PRN; Protocol PRN Reason: Hypoglycemia Treatment Stop: 06/25/23 17:50 Glucose (Glucose 40% Gel 15 Gm Tube) 15 - 30 gm PO UD PRN; Protocol PRN Reason: Hypoglycemia Protocol Stop: 06/25/23 17:50 Insulin Aspart (Insulin Aspart Per Unit Charge) 0 units SC ACHS [facility] Stop: 06/25/23 17:50 Last Admin: 05/31/23 13:01 Dose: 2 units Ketorolac Tromethamine (Ketorolac Tromethamine 15 Mg/Ml Vial) 15 mg IV Q6H PRN PRN Reason: Moderate Pain (Scale 4, 5, 6) Stop: 05/31/23 17:50 Last Admin: 05/26/23 22:47 Dose: 15 mg Lactobacillus Acidophilus (Advanced Probiotic 1250 Mg Capsule) 2 cap PO DAILY [facility] Stop: 06/27/23 15:14 Last Admin: 05/31/23 08:45 Dose: 2 cap Levothyroxine Sodium (Levothyroxine Sodium 50 Mcg Tablet) 50 mcg PO DAILYBB [facility] Stop: 06/26/23 06:29 Last Admin: 05/31/23 05:38 Dose: Not Given Lisinopril (Lisinopril 20 Mg Tab) 20 mg PO QAM [facility] Stop: 06/26/23 08:59 Last Admin: 05/31/23 08:46 Dose: 20 mg Magnesium Hydroxide (Magnesium Hydroxide Susp 30 Ml Udc) 30 ml PO Q6H PRN PRN Reason: constipation Stop: 06/25/23 17:50 Magnesium Oxide (Magnesium Oxide 400 Mg Tab) 400 mg PO QAM [facility] Stop: 06/26/23 08:59 Last Admin: 05/31/23 08:47 Dose: 400 mg Metoprolol Succinate (Metoprolol Succ 50mg Ext Rel Tab) 50 mg PO DAILY [facility] Stop: 06/26/23 08:59 Last Admin: 05/31/23 08:47 Dose: 50 mg Miscellaneous (Carbohydrates For Hypoglycemia ) 15 - 30 gm PO UD PRN PRN Reason: Hypoglycemia Protocol Stop: 06/25/23 17:50 Ondansetron HCl (Ondansetron 4 Mg Od Tab) 4 mg PO Q8H PRN PRN Reason: Nausea Stop: 06/25/23 17:50 Pantoprazole Sodium (Pantoprazole 40 Mg Tab) 40 mg PO HS [facility] Stop: 06/25/23 20:59 Last Admin: 05/30/23 21:39 Dose: 40 mg Polyethylene Glycol (Polyethylene (Miralax) 17 Gm Pack) 17 gm PO DAILY [facility] Stop: 06/26/23 11:59 Last Admin: 05/31/23 08:50 Dose: 17 gm Sennosides (Senna 8.6 Mg Tab) 8.6 mg PO QAM [facility] Stop: 06/29/23 16:29 Last Admin: 05/31/23 08:45 Dose: 8.6 mg Vitamin B Complex (Vitamin B Complex Tab) 1 tab PO QAM [facility] Stop: 06/26/23 08:59 Last Admin: 05/31/23 08:47 Dose: 1 tab
[2023-05-31] MEDS: ENOXAPARIN INJ 40 MG/0.4 ML SYR SQ SCH (17:36)
[2023-05-31] MEDS: ATORVASTATIN 20 MG TAB PO SCH (20:18)
[2023-05-31] MEDS: PANTOprazole 40 MG TAB PO SCH (20:19)
[2023-05-31] MEDS: cloZAPine 100 MG TAB PO SCH (20:20)
[2023-06-01] MEDS: LEVOTHYROXINE SODIUM 50 MCG TABLET PO SCH (05:44)
[2023-06-01 07:19] LABS: Basophils # (auto) 0.06 K/uL (0.00-0.20); Basophils % (auto) 1.4 %; Hematocrit (blood only) 31.6 % (37.0-47.0); Hemoglobin 10.4 g/dl (12.0-16.0); Immature Granulocytes # (auto) 0.01 K/uL (0.01-0.20); Immature Granulocytes % (auto) 0.2 %; Lymphocytes # (auto) 2.06 K/uL (1.20-3.40); Lymphocytes % (auto) 46.5 %; Mean Corpuscular Hemoglobin 28.7 pg (25.0-34.0); Mean Corpuscular Hgb Conc 32.9 g/dL (32.0-36.0); Mean Corpuscular Volume 87.3 fL (80.0-100.0); Mean Platelet Volume 10.2 fL (9.4-12.4); Monocytes % (auto) 11.3 %; Neutrophils % (auto) 40.6 %; Platelet Count 227 K/uL (130-400); RDW Coefficient of Variation 13.6 % (11.5-14.5); RDW Standard Deviation 43.8 fL (36.4-46.3); Red Blood Count 3.62 M/uL (4.20-5.40); White Blood Count 4.43 K/ul (4.8-10.8)
[2023-06-01] MEDS: DOCUSATE SODIUM 100 MG CAP PO SCH (09:33)
[2023-06-01] MEDS: MAGNESIUM OXIDE 400 MG TAB PO SCH (09:33)
[2023-06-01] MEDS: ADVANCED PROBIOTIC 1250 MG CAPSULE PO SCH (09:33)
[2023-06-01] MEDS: GABAPENTIN 100 MG CAP PO SCH (09:33)
[2023-06-01] MEDS: lisinopril 20 MG TAB PO SCH (09:33)
[2023-06-01] MEDS: CEFDINIR 300 MG CAP PO SCH (09:33)
[2023-06-01] MEDS: cloZAPine 25 MG TAB PO SCH (09:33)
[2023-06-01] MEDS: ASPIRIN 81 MG CHEW PO SCH (09:33)
[2023-06-01] MEDS: FLUTICASONE PROPIONATE NA SPR 16 GM BTL NAE SCH (09:33)
[2023-06-01] MEDS: DULoxetine HCL 60 MG CAP PO SCH (09:33)
[2023-06-01] MEDS: POLYETHYLENE (MIRALAX) 17 GM PACK PO SCH (09:34)
[2023-06-01] MEDS: SENNA 8.6 MG TAB PO SCH (09:34)
[2023-06-01] MEDS: METOPROLOL SUCC 50MG EXT REL TAB PO SCH (09:34)
[2023-06-01] MEDS: VITAMIN B COMPLEX TAB PO SCH (09:34)
[2023-06-01] MEDS: INSULIN ASPART PER UNIT CHARGE SC SCH ×2 (09:37→12:58)
--- NOTE | 2023-06-01 10:06 | History & Physical Report ---
Date of Service May 26, 2023 (Note for May 26, 2023 done in H&P format as H&P was done in progress note format previously) Assessment & Plan (1) Acute UTI: (2) DM2 (diabetes mellitus, type 2): (3) Debilitated: Plan Plan Pt is a 72yoF with PMHx significant for HTN, HLD, DMII, hypothyroidism, Hx of brain tumor s/p partial resection years ago (unknown pathology), somatization disorder, schizophrenia, history of migraine, chronic anemia, recurrent UTIs, urinary incontinence and urinary bladder diverticulum presenting with weakness. Generalized weakness/ UTI Pt AAOx2, states that she just felt extremely weak today. Per emergency providers, she was found sitting on the toilet unable to get up with feces all over the floor. States once more that she does not recall how she ended up in the ambulance and is unsure exactly what happened. States she is weak and tired with some nausea. Denies headache, chest pain, SOB, cough, congestion, abdominal pain, dysuria, or vomiting episodes. Head CT with no acute changes, MRI brain last done in Mar, consider repeating if symptoms persist after UTI treatment. Lactate elevated at 2.2, procal pending. Received 1L of fluids in the ED, repeat lactate pending. Chest xray with no acute changes, EKG with noted sinus bradycardia. UA suggestive of infection, urine Cx pending with Blood Cx x2 pending as well. Received a dose of Aztreonam in the ED, continue. Narrow based on culture resul ts. PT/OT Debilitation Complex Living/Social needs Per emergency provider, pt found with feces on the floor, up her back Reportedly had caregivers that came 7 days a week, now cut back to 5 days Case management consult placed for further assistance PT/OT DMII Last noted hgba1c of 5.8 in Mar 2023 AM hgba1c ordered Hold home metformin, ISS ordered. Chronic medical problems: HLD- continue home statin Vit D def- continue home Vit D supplement Schizophrenia/Mood/Neuropathy/Pain- continue home clozapine, cymbalta, gabapentin Hypothyroidism- continue home levothyroxine HTN: continue home lisinopril and metoprolol succinate GERD: continue home ppi Hx of migraines: continue home daily riboflavin Dispo: Med/Surg Diet: DMII CODE STATUS: Full code DVT prophylaxis: Lovenox SQ Admission and Anticipated Discharge Date Admission Date: May 26, 2023 History of Present Illness Chief Complaint: Weakness Primary Care Provider: Raymond Vann DO Pt is a 72yoF with PMHx significant for HTN, HLD, DMII, hypothyroidism, Hx of brain tumor s/p partial resection years ago (unknown pathology), somatization disorder, schizophrenia, history of migraine, chronic anemia, recurrent UTIs, urinary incontinence and urinary bladder diverticulum presenting with weakness. Hx obtained from pt and medical records. Per pt she "knew" she had to come and be admitted to the hospital as she was feeling very weak. States that she was sitting on the toilet and could not get up. However states that she does not remember how she got to the emergency room. Per ED provider, EMS found pt with feces on the floor, reportedly with feces all up her back. Reportedly she had providers daily before but now they are around only 5 days a week. Pt states she only feels weak and tired with some nausea. Denies episodes of emesis or dysuria. Denies abdominal pain, diarrhea or constipation. ER course: Received 1L of NSS, dose of Aztreonam, Toradol and Tylenol Allergies Allergy/AdvReac Type Severity Reaction Status Date / Time Cephalosporins Allergy Intermediate Hallucinati Verified 05/28/23 09:44 ons Penicillins Allergy Intermediate Hives Verified 05/26/23 16:09 pollen extracts Allergy Intermediate seasonal Verified 05/26/23 16:09 allergy rizatriptan [From Maxalt] Allergy Unknown Unknown Verified 05/26/23 16:09 cyclobenzaprine AdvReac Intermediate neuro Verified 05/26/23 16:09 [From Flexeril] complications Home Medications Medication Instructions Recorded Confirmed Type duloxetine 60 mg capsule,delayed 60 mg PO QAM 04/14/18 05/26/23 History release (Cymbalta) levothyroxine 50 mcg tablet 50 mcg PO DAILYBB 04/14/18 05/26/23 History (Synthroid) loratadine 10 mg tablet (Claritin) 10 mg PO HS 03/25/19 05/26/23 History magnesium oxide 400 mg PO QAM 03/25/19 05/26/23 History atorvastatin 20 mg tablet 20 mg PO PM 11/22/19 05/26/23 History sumatriptan succinate 100 mg tablet 100 mg PO DAILY PRN Headache 11/22/19 05/26/23 History metformin 500 mg tablet 500 mg PO QAM 02/24/21 05/26/23 History riboflavin (vitamin B2) 400 mg 400 mg PO QAM 02/24/21 05/26/23 History tablet iron,carbonyl 65 mg-vitamin C 125 1 tab PO DAILY 05/17/21 05/26/23 History mg tablet,delayed release (Vitron-C) fluticasone propionate 50 2 spray intranasal DAILY 07/13/21 05/26/23 History mcg/actuation nasal spray,suspension (Flonase Allergy Relief) ondansetron 4 mg disintegrating 4 mg PO Q8H PRN Nausea 07/13/21 05/26/23 History tablet aspirin 81 mg chewable tablet 81 mg PO DAILY 05/12/22 05/26/23 History (Aspirin Childrens) docusate sodium 100 mg capsule 100 mg PO BID 07/13/22 05/26/23 History (Colace) magnesium hydroxide 400 mg/5 mL 30 ml PO Q6H PRN constipation #355 07/20/22 05/26/23 Rx oral suspension (Milk of Magnesia) mL polyethylene glycol 3350 17 17 g PO DAILY PRN constipation 07/22/22 05/26/23 Rx gram/dose oral powder (Miralax) #238 grams gabapentin 100 mg capsule 0 mg PO UD 09/01/22 05/26/23 History cholecalciferol (vitamin D3) 1,250 1,250 mcg PO WK 12/16/22 05/26/23 History mcg (50,000 unit) capsule clozapine 100 mg tablet 300 mg PO HS 12/16/22 05/26/23 History clozapine 25 mg tablet 50 mg PO QAM 12/16/22 05/26/23 History omeprazole 40 mg capsule,delayed 40 mg PO HS 12/16/22 05/26/23 History release lisinopril 20 mg tablet 20 mg PO QAM 01/15/23 05/26/23 History metoprolol succinate 50 mg 50 mg PO DAILY 03/08/23 05/26/23 History tablet,extended release 24 hr methenamine hippurate 1 gram tablet 1 g PO BID #180 tabs 05/07/23 05/26/23 Rx Past Med/Surg History Medical History (Updated 06/01/23 @ 10:11 by Shannon Khan MD) Weakness Constipation Bacteremia Acute UTI (urinary tract infection) Generalized weakness AMS (altered mental status) Unresponsive Obtunded COVID-19 Hyponatremia Nausea Dehydration Dizziness Neuropathy Headache Vertigo Schizophrenia GERD (gastroesophageal reflux disease) Well controlled with medication Hypothyroidism Anxiety Migraine Hypertension Neuropathy DM2 (diabetes mellitus, type 2) HLD (hyperlipidemia) Somatization disorder Surgical History S/P foot surgery, right X2 S/P foot surgery, left X2 History of colonoscopy History of tooth extraction WISDOM TEETH History of tonsillectomy H/O bilateral cataract extraction History of craniotomy 1969, IN [place] D/T HEADACHE---FOLLOWS W DR. MICHAEL History of cataract surgery H/O cystoscopy H/O foot surgery H/O brain surgery "abt 1969 R parietal exploration for benign lesion" Family History Grandmother Family history of diabetes mellitus PATERNAL Family/Other Family history of diabetes mellitus UNCLE Father Parkinson disease Mother CHF (congestive heart failure) Social History Smoking Status: Never smoker Second Hand Exposure: Yes (FATHER SMOKED); Do You Dip or Chew Tobacco: No; Hx Alcohol Use: No Hx Substance Use: No Preferred Language: Togolese Communication Ability: Effective Dining Service Worker Required: No Beliefs That Will Affect Care: None marital status: Single Current Living Situation: Alone Current Living Situation Comment: caregivers daily, not on weekends How many Children do You have: 0 Feels Safe at Home: Yes Assistive Devices: Walker Review of Systems Review of Systems: All systems reviewed & are unremarkable except as noted in HPI & below Physical Exam Physical Exam: General: Alert, oriented. No acute distress Skin: No noted rashes or bruises Psych: Appropriate mood and affect, though tangential at times Neuro: Weakness and difficulty with movements in the bed HEENT: NC/AT Chest: Nontender to palpation. CV: RRR Resp: Breath sounds clear bilaterally, no increased effort of breathing. Abdomen: Soft, nontender, nondistended. Extremities: No edema in lower extremities bilaterally. Results & Data Results & Data Vital Signs (Past 12 Hours) Vital Signs Temp Pulse Resp BP Pulse Ox O2 Del Method 06/01/23 06:59 36.8 C 54 L 15 163/83 H 96 Room Air
--- NOTE | 2023-06-01 10:14 | Discharge Summary ---
Discharge Summary Date of Service June 01, 2023 Notes For Next Care Provider Please ensure Urology follow up for recurrent UTIs Medication Changes From Visit cefdinir 300mg BID x 4 more days Admission HPI Per Admitting Provider Pt is a 72yoF with PMHx significant for HTN, HLD, DMII, hypothyroidism, Hx of brain tumor s/p partial resection years ago (unknown pathology), somatization disorder, schizophrenia, history of migraine, chronic anemia, recurrent UTIs, urinary incontinence and urinary bladder diverticulum presenting with weakness. Hx obtained from pt and medical records. Per pt she "knew" she had to come and be admitted to the hospital as she was feeling very weak. States that she was sitting on the toilet and could not get up. However states that she does not remember how she got to the emergency room. Per ED provider, EMS found pt with feces on the floor, reportedly with feces all up her back. Reportedly she had providers daily before but now they are around only 5 days a week. Pt states she only feels weak and tired with some nausea. Denies episodes of emesis or dysuria. Denies abdominal pain, diarrhea or constipation. ER course: Received 1L of NSS, dose of Aztreonam, Toradol and Tylenol Admission Exam Per Admitting Provider General: Alert, oriented. No acute distress Skin: No noted rashes or bruises Psych: Appropriate mood and affect, though tangential at times Neuro: Weakness and difficulty with movements in the bed HEENT: NC/AT Chest: Nontender to palpation. CV: RRR Resp: Breath sounds clear bilaterally, no increased effort of breathing. Abdomen: Soft, nontender, nondistended. Extremities: No edema in lower extremities bilaterally. Principal Dx & Hospital Course #1 = Principal Diagnosis (1) Acute UTI: (2) DM2 (diabetes mellitus, type 2): (3) Debilitated: Plan Pt is a 72yoF with PMHx significant for HTN, HLD, DMII, hypothyroidism, Hx of brain tumor s/p partial resection years ago (unknown pathology), somatization disorder, schizophrenia, history of migraine, chronic anemia, recurrent UTIs, urinary incontinence and urinary bladder diverticulum presenting with weakness and inability to care for self at home. Generalized weakness/ UTI Pt AAOx2, states that she just felt extremely weak on the day of admission. Per emergency providers, she was found sitting on the toilet unable to get up with feces all over the floor. Stated that she does not recall how she ended up in the ambulance and is unsure exactly what happened. Stated she is weak and tired with some nausea. Denied headache, chest pain, SOB, cough, congestion, abdominal pain, dysuria, or vomiting episodes. Head CT with no acute changes, MRI brain last done in Mar, consider repeating if symptoms persist after UTI treatment. Lactate elevated at 2.2, procalcitonin negative Received 1L of fluids in the ED Chest xray with no acute changes, EKG with noted sinus bradycardia. UA suggestive of infection, urine Cx positive for Gram negative bacilli -> E.coli Blood Cx x2 obtained. 1 bottle positive for alpha strep not S. pne/ entero, blood cultx PCR negat. - likely contaminant Received a dose of Aztreonam in the ED, continued. Switched to cefdinir 300 bid. Received 6 days of antibiotic treatment, continue for an additional 4 more days. PT/OT - recommend 22/01 care - pt has caregivers M-F, CM involved - plan for [facility] Please ensure urology and pcp follow up for the recurrent UTIs. Debilitation Complex Living/Social needs Per emergency provider, pt found with feces on the floor, up her back Reportedly had caregivers that came 7 days a week, now cut back to 5 days Case management consult placed for further assistance PT/OT- recommend 22/01 care - pt has caregivers M-F, CM involved - plan for [facility] DMII Last noted hgba1c of 5.8 in Mar 2023 Current hgba1c 5.9% Hold home metformin, ISS ordered. Chronic medical problems: HLD- continue home statin Vit D def- continue home Vit D supplement Schizophrenia/Mood/Neuropathy/Pain- continue home clozapine, cymbalta, gabapentin Hypothyroidism- current TSH 1 (wnl), continue home levothyroxine HTN: continue home lisinopril and metoprolol succinate GERD: continue home ppi Hx of migraines: continue home daily riboflavin Discharge Exam General: Alert, oriented. No acute distress Skin: No noted rashes or bruises Psych: Appropriate mood and affect, though tangential at times Neuro: Weakness and difficulty with movements in the bed HEENT: NC/AT Chest: Nontender to palpation. CV: RRR Resp: Breath sounds clear bilaterally, no increased effort of breathing. Abdomen: Soft, nontender, nondistended. Extremities: No edema in lower extremities bilaterally. Updated Medication List Medication Instructions Recorded Confirmed Type duloxetine 60 mg capsule,delayed 60 mg PO QAM 04/14/18 05/26/23 History release (Cymbalta) levothyroxine 50 mcg tablet 50 mcg PO DAILYBB 04/14/18 05/26/23 History (Synthroid) loratadine 10 mg tablet (Claritin) 10 mg PO HS 03/25/19 05/26/23 History magnesium oxide 400 mg PO QAM 03/25/19 05/26/23 History atorvastatin 20 mg tablet 20 mg PO PM 11/22/19 05/26/23 History sumatriptan succinate 100 mg tablet 100 mg PO DAILY PRN Headache 11/22/19 05/26/23 History metformin 500 mg tablet 500 mg PO QAM 02/24/21 05/26/23 History riboflavin (vitamin B2) 400 mg 400 mg PO QAM 02/24/21 05/26/23 History tablet iron,carbonyl 65 mg-vitamin C 125 1 tab PO DAILY 05/17/21 05/26/23 History mg tablet,delayed release (Vitron-C) fluticasone propionate 50 2 spray intranasal DAILY 07/13/21 05/26/23 History mcg/actuation nasal spray,suspension (Flonase Allergy Relief) ondansetron 4 mg disintegrating 4 mg PO Q8H PRN Nausea 07/13/21 05/26/23 History tablet aspirin 81 mg chewable tablet 81 mg PO DAILY 05/12/22 05/26/23 History (Aspirin Childrens) docusate sodium 100 mg capsule 100 mg PO BID 07/13/22 05/26/23 History (Colace) magnesium hydroxide 400 mg/5 mL 30 ml PO Q6H PRN constipation #355 07/20/22 05/26/23 Rx oral suspension (Milk of Magnesia) mL polyethylene glycol 3350 17 17 g PO DAILY PRN constipation 07/22/22 05/26/23 Rx gram/dose oral powder (Miralax) #238 grams gabapentin 100 mg capsule 0 mg PO UD 09/01/22 05/26/23 History cholecalciferol (vitamin D3) 1,250 1,250 mcg PO WK 12/16/22 05/26/23 History mcg (50,000 unit) capsule clozapine 100 mg tablet 300 mg PO HS 12/16/22 05/26/23 History clozapine 25 mg tablet 50 mg PO QAM 12/16/22 05/26/23 History omeprazole 40 mg capsule,delayed 40 mg PO HS 12/16/22 05/26/23 History release lisinopril 20 mg tablet 20 mg PO QAM 01/15/23 05/26/23 History metoprolol succinate 50 mg 50 mg PO DAILY 03/08/23 05/26/23 History tablet,extended release 24 hr methenamine hippurate 1 gram tablet 1 g PO BID #180 tabs 05/07/23 05/26/23 Rx cefdinir 300 mg capsule 300 mg PO BID #8 caps 06/01/23 Rx Additional Medication Comments Current Inpatient Medications Acetaminophen (Acetaminophen 500 Mg Tab) 1,000 mg PO Q8H PRN PRN Reason: Mild Pain (Scale 1, 2, 3) Stop: 06/25/23 17:50 Last Admin: 05/30/23 21:37 Dose: 1,000 mg Aspirin (Aspirin 81 Mg Chew) 81 mg PO DAILY [facility] Stop: 06/26/23 08:59 Last Admin: 06/01/23 09:33 Dose: 81 mg Atorvastatin Calcium (Atorvastatin 20 Mg Tab) 20 mg PO PM [facility] Stop: 06/25/23 20:59 Last Admin: 05/31/23 20:18 Dose: 20 mg Cefdinir (Cefdinir 300 Mg Cap) 300 mg PO BID [facility] Stop: 06/02/23 09:01 Last Admin: 06/01/23 09:33 Dose: 300 mg Clozapine (Clozapine 100 Mg Tab) 300 mg PO HS [facility]; Protocol Stop: 06/25/23 20:59 Last Admin: 05/31/23 20:20 Dose: 300 mg Clozapine ([facility]apine 25 Mg Tab) [facility] [place] Stop: 06/26/23 08:59 Last Admin: 06/01/23 09:33 Dose: 50 mg Dextrose (Dextrose 50% 50 Ml Syringe) 25 - 50 ml IV UD PRN; Protocol PRN Reason: Hypoglycemia Protocol Stop: 06/25/23 17:50 Docusate Sodium (Docusate Sodium 100 Mg Cap) 100 mg PO BID [facility] Stop: 06/25/23 20:59 Last Admin: 06/01/23 09:33 Dose: 100 mg Duloxetine HCl (Duloxetine Hcl 60 Mg Cap) [facility] [place]: 06/26/23 08:59 Last Admin: 06/01/23 09:33 Dose: 60 mg Enoxaparin Sodium (Enoxaparin Inj 40 Mg/0.4 Ml Syr) 40 mg SQ Q24H [facility] Stop: 06/25/23 17:59 Last Admin: 05/31/23 17:36 Dose: 40 mg Fluticasone Propionate (Fluticasone Propionate Na Spr 16 Gm Btl) 2 sprays DONI DAILY [facility] Stop: 06/26/23 08:59 Last Admin: 06/01/23 09:33 Dose: 2 sprays Gabapentin (Gabapentin 100 Mg Cap) 200 mg PO BID [facility] Stop: 06/25/23 20:59 Last Admin: 06/01/23 09:33 Dose: 200 mg Gabapentin (Gabapentin 100 Mg Cap) 100 mg PO DAILY@1400 [facility] Stop: 06/26/23 13:59 Last Admin: 05/31/23 16:06 Dose: 100 mg Glucagon (Glucagon For Inj 1 Mg Vial) 1 mg SQ UD PRN; Protocol PRN Reason: Hypoglycemia Protocol Stop: 06/25/23 17:50 Glucose (Glucose 10 Tab/Tube) 4 - 8 tab PO UD PRN; Protocol PRN Reason: Hypoglycemia Treatment Stop: 06/25/23 17:50 Glucose (Glucose 40% Gel 15 Gm Tube) 15 - 30 gm PO UD PRN; Protocol PRN Reason: Hypoglycemia Protocol Stop: 06/25/23 17:50 Insulin Aspart (Insulin Aspart Per Unit Charge) 0 units SC ACHS [facility] Stop: 06/25/23 17:50 Last Admin: 06/01/23 09:37 Dose: Not Given Lactobacillus Acidophilus (Advanced Probiotic 1250 Mg Capsule) 2 cap PO DAILY [facility] Stop: 06/27/23 15:14 Last Admin: 06/01/23 09:33 Dose: 2 cap Levothyroxine Sodium (Levothyroxine Sodium 50 Mcg Tablet) 50 mcg PO DAILYBB [facility] Stop: 06/26/23 06:29 Last Admin: 06/01/23 05:44 Dose: 50 mcg Lisinopril (Lisinopril 20 Mg Tab) 20 mg PO QAM [facility] Stop: 06/26/23 08:59 Last Admin: 06/01/23 09:33 Dose: 20 mg Magnesium Hydroxide (Magnesium Hydroxide Susp 30 Ml Udc) 30 ml PO Q6H PRN PRN Reason: constipation Stop: 06/25/23 17:50 Magnesium Oxide (Magnesium Oxide 400 Mg Tab) 400 mg PO QAM [facility] Stop: 06/26/23 08:59 Last Admin: 06/01/23 09:33 Dose: 400 mg Metoprolol Succinate (Metoprolol Succ 50mg Ext Rel Tab) 50 mg PO DAILY [facility] Stop: 06/26/23 08:59 Last Admin: 06/01/23 09:34 Dose: Not Given Miscellaneous (Carbohydrates For Hypoglycemia ) 15 - 30 gm PO UD PRN PRN Reason: Hypoglycemia Protocol Stop: 06/25/23 17:50 Ondansetron HCl (Ondansetron 4 Mg Od Tab) 4 mg PO Q8H PRN PRN Reason: Nausea Stop: 06/25/23 17:50 Pantoprazole Sodium (Pantoprazole 40 Mg Tab) 40 mg PO HS [facility] Stop: 06/25/23 20:59 Last Admin: 05/31/23 20:19 Dose: 40 mg Polyethylene Glycol (Polyethylene (Miralax) 17 Gm Pack) 17 gm PO DAILY [facility] Stop: 06/26/23 11:59 Last Admin: 06/01/23 09:34 Dose: 17 gm Sennosides (Senna 8.6 Mg Tab) 8.6 mg PO QAM [facility] Stop: 06/29/23 16:29 Last Admin: 06/01/23 09:34 Dose: 8.6 mg Vitamin B Complex (Vitamin B Complex Tab) 1 tab PO QAM [facility] Stop: 06/26/23 08:59 Last Admin: 06/01/23 09:34 Dose: 1 tab Hospital Stay Data Consultations 05/26/23 15:12 ED Decision to Admit Stat Diagnostic Imagining Performed 05/26/23 12:55 CT head/brain wo con Stat Chest X-Ray 05/26/23 12:46 XR chest 1V portable HISTORY: weakness COMPARISON: Chest 03/08/2023. FINDINGS: The lungs are clear. Cardiac silhouette is normal in size. No pleural effusions. No pneumothorax. IMPRESSION: No acute process. ACT 112: Negative or not required by law. Electronically signed by: Doe Harper M.D. 05/26/2023 1:[address] 05/26/23 12:[address] DOSE: 625.8 mGy.cm HISTORY: Headache. TECHNIQUE: Multiaxial CT images of the head were performed without the use of intravenous contrast. Automated exposure control was utilized for this study. A dose lowering technique was utilized adhering to the principles of ALARA. Comparison: Brain MRI 03/09/2023. Findings: The paranasal sinuses and mastoid air cells are clear. The calvarium and skull base are intact. There is no mass, hematoma, midline shift, acute infarct. White matter hypodensity is nonspecific but suggestive of microvascular ischemic change. The ventricles and sulci demonstrate mild age-related involutional changes. A right parietal bone defect/selena hole remains unchanged. Impression: No significant change compared to the prior study. No acute intracranial abnormality. ACT 112: Negative or not required by law. Electronically signed by: Doe Harper M.D. 05/26/2023 1:51 PM Discharge Instructions Given to Patient (Per Discharging Provider) Pt is a 72yoF with PMHx significant for HTN, HLD, DMII, hypothyroidism, Hx of brain tumor s/p partial resection years ago (unknown pathology), somatization disorder, schizophrenia, history of migraine, chronic anemia, recurrent UTIs, urinary incontinence and urinary bladder diverticulum presenting with weakness and inability to care for self at home. Generalized weakness/ UTI Pt AAOx2, states that she just felt extremely weak on the day of admission. Per emergency providers, she was found sitting on the toilet unable to get up with feces all over the floor. Stated that she does not recall how she ended up in the ambulance and is unsure exactly what happened. Stated she is weak and tired with some nausea. Denied headache, chest pain, SOB, cough, congestion, abdominal pain, dysuria, or vomiting episodes. Head CT with no acute changes, MRI brain last done in Mar, consider repeating if symptoms persist after UTI treatment. Lactate elevated at 2.2, procalcitonin negative Received 1L of fluids in the ED Chest xray with no acute changes, EKG with noted sinus bradycardia. UA suggestive of infection, urine Cx positive for Gram negative bacilli -> E.coli Blood Cx x2 obtained. 1 bottle positive for alpha strep not S. pne/ entero, blood cultx PCR negat. - likely contaminant Received a dose of Aztreonam in the ED, continued. Switched to cefdinir 300 bid. Received 6 days of antibiotic treatment, continue for an additional 4 more days. PT/OT - recommend 22/01 care - pt has caregivers M-F, CM involved - plan for [facility] Debilitation Complex Living/Social needs Per emergency provider, pt found with feces on the floor, up her back Reportedly had caregivers that came 7 days a week, now cut back to 5 days Case management consult placed for further assistance PT/OT- recommend 22/01 care - pt has caregivers M-F, CM involved - plan for [facility] DMII Last noted hgba1c of 5.8 in Mar 2023 Current hgba1c 5.9% Hold home metformin, ISS ordered. Chronic medical problems: HLD- continue home statin Vit D def- continue home Vit D supplement Schizophrenia/Mood/Neuropathy/Pain- continue home clozapine, cymbalta, gabapentin Hypothyroidism- current TSH 1 (wnl), continue home levothyroxine HTN: continue home lisinopril and metoprolol succinate GERD: continue home ppi Hx of migraines: continue home daily riboflavin Total Time Total Time Spent Total Time Spent (In Minutes): > 30 minutes
== END 2023-06-01 13:15 | DRG 690 ==
LOC: ED 12:31 → SUATTDRO 15:36 → 3W 15:36

== ENCOUNTER 2023-08-06 16:37 | Inpatient (IN) ==
[2023-08-06] MEDS: SODIUM CHLORIDE 0.9% 1,000 ML IV SCH (16:57)
[2023-08-06] MEDS: ONDANSETRON INJ 2 MG/ML 2 ML VIAL ONE (16:57)
--- NOTE | 2023-08-06 16:59 | Emergency Department Note ---
Impression & Plan Unresponsive, Elevated lactic acid level, Bowel perforation, Endotracheally intubated, Hypermagnesemia ED Provider Note HISTORY OF PRESENT ILLNESS: Patient is a 72-year-old female presenting after an unresponsive episode. Patient was found by caretakers today minimally responsive. They called 911. On EMS arrival, the patient was a GCS of 3 and had a pressure of 60s/40s and a heart rate of 45 bpm. She was given 1 mg of atropine and push dose epi in route. As her blood pressure improved, the patient became more alert and oriented. On arrival to the ER, the patient is confused and minimally responsive but does respond to physical stimuli. She denies any complaints other than a headache. ROS: as above PHYSICAL EXAM: Constitutional: Patient appears in no acute distress. HENT: Head: Normocephalic and atraumatic. Eyes: EOMI, PERRL Mouth/Throat: Mucous membranes moist. Neck: Trachea midline. Neck supple. Cardiovascular: RRR, No murmurs, rubs or gallops. Intact distal pulses. Pulmonary/Chest: No respiratory distress. Breath sounds clear and equal bilaterally. No wheezes or rales. Abdominal: Abdomen soft, no rebound or guarding. Abdomen is distended and diffusely tender. Musculoskeletal: No edema, tenderness or deformity noted. Skin: Warm and dry. No rash, erythema, pallor or cyanosis Neurological: Patient does localize to painful stimulus. She has a gag reflex. MDM: - Vitals signs showed hypotension - History obtained via EMS, given patient's confusion. Patient presents with unresponsive episode. Patient was found on by first coat operator is minimally responsive earlier this afternoon and they called 911. On EMS arrival, the patient was minimally responsive and had a blood pressure of 60/40 and a heart rate of 45. She given atropine and push dose epi and route. Patient reportedly became more responsive as her blood pressure improved. On arrival to the ER, she is confused and not answering questions. - Chronic conditions affecting care: constipation; GERD; HTN; HLD; DM-2 - Differential diagnoses include, but are not limited to: CVA; intracranial hemorrhage; pneumonia; ACS; electrolyte abnormality - Order placed for continuous cardiac monitoring. At this time, monitor showed rate of 68 bpm with normal sinus rhythm, per my interpretation. - External medical records reviewed. EMS run sheet was reviewed. Patient was hypotensive or bradycardic on their arrival. She was given 1 mg of IV atropine and a total of 4 push dose epi. - EKG interpreted by myself showed normal sinus rhythm. Rate 67 bpm. QT 388. No acute ischemic changes. - Laboratory workup interpreted by myself showed normal WBC; stable electrolytes other than hypermagnesemia (Mg 3.1); elevated lactate (2.5); normal troponin; normal procalcitonin - UA negative for infection - VBG showed acidosis (pH 7.27) - CXR negative for pneumonia, per my interpretation - CT head wo contrast negative for acute intracranial pathology. - CT abdomen/pelvis wo contrast showed large stool burden in the colon with some left-sided colitis. Also noted to have potential extraluminal air concerning for bowel perforation. - Blood cultures obtained - Patient given 3L NS and IV zosyn - Consulted general surgeon, Dr. Blanchard. She agreed with IV antibiotics and fluid resuscitation and admission to medicine. Will come and evaluate the patient. - Patient was started on IV epinephrine via peripheral IV on arrival for blood pressure support. Her epinephrine requirement was increasing despite increasing fluid resuscitation. Therefore, a central line was placed without any issue. Please see procedure note below. Given patient's poor mental status and concern for potential aspiration, she was endotracheally intubated by myself. Please see procedure note below. - Discussion was had with child care coordinator about patient's case and need for admission - Hospitalist consulted for admission - ICU consulted as consultation, as patient on pressor support - Patient admitted to [facility] Hospitalist service for further evaluation and management. PROCEDURES: Central Venous Catheter Indication: vasopressor support Catheter type: triple lumen Location: Right internal jugular vein Emergent consent was implied. At this time, the risks of the procedure are less than the risks of NOT performing the procedure. A time out was taken and the correct patient and site identified. The skin was prepped in the standard fashion with chlorhexidine and full sterile drapes applied. The proper landmarks were identified with ultrasound, anesthetized with 1% lidocaine without epinephrine, and the needle was inserted through the skin in the standard fashion. The needle was carefully advanced into blood vessel lumen under ultrasound guidance. The guidewire was placed uneventfully. The vessel is dilated and the catheter was placed. It was sutured into position. There was good blood return from all ports. The patient tolerated the procedure well and there were no complications. Post procedure x-ray was ordered. Endotracheal Intubation Indication: altered mental status. The patient was on 100% oxygen via NRB prior to the procedure. Suction, airway equipment, RSI drugs, respiratory equipment, and appropriate personnel were prepared prior to the initiation of the procedure. A time out was taken. Induction was performed with 20 mg IV etomidate. Paralysis with 100 mg IV succinylcholine. After observing the clinical benefit of the medications, the airway was easily visualized utilizing a glidescope. A 7.5 size ETT tube was placed atraumatically to 23 cm using standard technique. The cuff inflated without signs of malfunction. There were bilateral breath sounds, positive colormetric change, no gastric sounds, a good capnography waveform, and post procedure pulse oximetry was 100%. Post intubation sedation with propofol and fentanyl. There were no complications. I have personally spent 69 minutes of critical care time in the direct management of this patient. This includes bedside care, interpretation of diagnostic studies, and testing, discussion with consultants, patient, and family members, and other required patient management activities. This 69 minutes is in excess of all separately billable procedures. ASSESSMENT AND PLAN: Diagnosis: unresponsive; endotracheally intubated; bowel perforation; hypermagnesemia Plan: admit Past Med/Surg History Medical History Weakness Constipation Bacteremia Acute UTI (urinary tract infection) Generalized weakness AMS (altered mental status) Unresponsive Obtunded COVID-19 Hyponatremia Nausea Dehydration Dizziness Neuropathy Headache Vertigo Schizophrenia GERD (gastroesophageal reflux disease) Well controlled with medication Hypothyroidism Anxiety Migraine Hypertension Neuropathy DM2 (diabetes mellitus, type 2) HLD (hyperlipidemia) Somatization disorder Surgical History S/P foot surgery, right X2 S/P foot surgery, left X2 History of colonoscopy History of tooth extraction WISDOM TEETH History of tonsillectomy H/O bilateral cataract extraction History of craniotomy 1969, IN [place] D/T HEADACHE---FOLLOWS W DR. MICHAEL History of cataract surgery H/O cystoscopy H/O foot surgery H/O brain surgery "abt 1969 R parietal exploration for benign lesion" Family History Grandmother Family history of diabetes mellitus PATERNAL Family/Other Family history of diabetes mellitus UNCLE Father Parkinson disease Mother CHF (congestive heart failure) Social History Smoking Status: Never smoker Second Hand Exposure: Yes (FATHER SMOKED); Do You Dip or Chew Tobacco: No; Hx Alcohol Use: No Hx Substance Use: No Preferred Language: Norwegian Communication Ability: Effective Data Management Engineer Required: No Beliefs That Will Affect Care: None marital status: Single Current Living Situation: Alone Current Living Situation Comment: caregivers daily, not on weekends How many Children do You have: 0 Feels Safe at Home: Yes Assistive Devices: Walker Allergies Allergies Allergy/AdvReac Type Severity Reaction Status Date / Time Penicillins Allergy Intermediate Hives Verified 08/06/23 02:02 pollen extracts Allergy Intermediate seasonal Verified 08/06/23 02:02 allergy Cephalosporins AdvReac Intermediate Hallucinations/GI Verified 08/06/23 02:02 UPSET/ CONFUSION cyclobenzaprine AdvReac Intermediate neuro Verified 08/06/23 02:02 [From Flexeril] complications rizatriptan [From Maxalt] AdvReac Intermediate VERTIGO Verified 08/06/23 02:02 Home Meds Home Medications Medication Instructions Recorded Confirmed duloxetine 60 mg capsule,delayed 60 mg PO QAM 04/14/18 08/06/23 release (Cymbalta) levothyroxine 50 mcg tablet 50 mcg PO DAILYBB 04/14/18 08/06/23 (Synthroid) loratadine 10 mg tablet (Claritin) 10 mg PO HS PRN Allergy Symptoms 03/25/19 08/06/23 magnesium oxide 400 mg PO QAM 03/25/19 08/06/23 atorvastatin 20 mg tablet 20 mg PO HS 11/22/19 08/06/23 sumatriptan succinate 100 mg tablet 100 mg PO DAILY PRN Headache 11/22/19 08/06/23 metformin 500 mg tablet 500 mg PO QAM 02/24/21 08/06/23 riboflavin (vitamin B2) 400 mg 400 mg PO QAM 02/24/21 08/06/23 tablet fluticasone propionate 50 2 spray intranasal DAILY 07/13/21 08/06/23 mcg/actuation nasal spray,suspension (Flonase Allergy Relief) aspirin 81 mg chewable tablet 81 mg PO DAILY 05/12/22 08/06/23 (Aspirin Childrens) docusate sodium 100 mg capsule 100 mg PO BID 07/13/22 08/06/23 (Colace) gabapentin 100 mg capsule See Rx Instructions .Route .COMPLEX 09/01/22 08/06/23 cholecalciferol (vitamin D3) 1,250 1,250 mcg PO WK 12/16/22 08/06/23 mcg (50,000 unit) capsule clozapine 100 mg tablet 300 mg PO HS 12/16/22 08/06/23 clozapine 25 mg tablet 50 mg PO QAM 12/16/22 08/06/23 omeprazole 40 mg capsule,delayed 40 mg PO HS 12/16/22 08/06/23 release lisinopril 20 mg tablet 20 mg PO QAM 01/15/23 08/06/23 metoprolol succinate 50 mg 50 mg PO QAM 03/08/23 08/06/23 tablet,extended release 24 hr acetaminophen 500 mg/15 mL oral 100 mg PO Q4H PRN PAIN/FEVER 08/06/23 08/06/23 liquid amlodipine 5 mg tablet 5 mg PO DAILY 08/06/23 08/06/23 cyanocobalamin (vitamin B-12) 1,000 mcg PO DAILY 08/06/23 08/06/23 1,000 mcg tablet (Vitamin B-12) diclofenac sodium 1 % topical gel 2 g topical TID PRN Pain 08/06/23 08/06/23 diclofenac sodium 50 mg 50 mg PO BID 08/06/23 08/06/23 tablet,delayed release iron,carbonyl 65 mg-vitamin C 125 1 tab PO DAILY 08/06/23 08/06/23 mg tablet,delayed release (Vitron-C) methenamine hippurate 1 gram tablet 1 g PO AMHS 08/06/23 08/06/23 psyllium 1 tsp PO TID 08/06/23 08/06/23 Results & Data (ED) Vital Signs Vital Signs - 24 hr 08/06/23 16:49 08/06/23 16:49 08/06/23 16:49 Temperature 36.6 C Temperature Source Temporal Artery Scan Pulse Rate 90 Pulse Rate [Apical] Respiratory Rate 20 Respiratory Effort / Characteristics Non-Labored Respiratory Depth Normal Blood Pressure 105/53 L Blood Pressure [Right Arm] Blood Pressure Mean 70 Blood Pressure Mean [Right Arm] Pulse Oximetry 98 98 98 Oxygen Delivery Method Oxymask Oxymask Oxymask Oxygen Flow Rate 10 10 Sepsis Recent Fever Within 48 Hours Yes Sepsis New/Unexplained Change in Mental Status Yes Sepsis Action Taken by Nursing No Action Required Oxygen Flow Rate - Titration 10 08/06/23 16:49 08/06/23 16:58 08/06/23 17:27 Temperature Temperature Source Pulse Rate 68 Pulse Rate [Apical] 65 59 L Respiratory Rate 16 20 Respiratory Effort / Characteristics Non-Labored Non-Labored Respiratory Depth Normal Normal Blood Pressure Blood Pressure [Right Arm] 99/48 L 99/47 L Blood Pressure Mean Blood Pressure Mean [Right Arm] 65 64 Pulse Oximetry 100 100 Oxygen Delivery Method Oxymask Oxymask Oxygen Flow Rate 11 11 Sepsis Recent Fever Within 48 Hours Sepsis New/Unexplained Change in Mental Status Sepsis Action Taken by Nursing Oxygen Flow Rate - Titration 08/06/23 17:40 08/06/23 17:52 08/06/23 18:03 Temperature Temperature Source Pulse Rate Pulse Rate [Apical] 63 63 63 Respiratory Rate 20 14 20 Respiratory Effort / Characteristics Non-Labored Non-Labored Respiratory Depth Normal Normal Blood Pressure Blood Pressure [Right Arm] 92/45 L 94/46 L 96/45 L Blood Pressure Mean Blood Pressure Mean [Right Arm] 60 62 62 Pulse Oximetry 100 100 100 Oxygen Delivery Method Oxymask Oxymask Oxymask Oxygen Flow Rate 11 11 11 Sepsis Recent Fever Within 48 Hours Sepsis New/Unexplained Change in Mental Status Sepsis Action Taken by Nursing Oxygen Flow Rate - Titration 08/06/23 18:10 08/06/23 18:31 08/06/23 18:49 Temperature Temperature Source Pulse Rate Pulse Rate [Apical] 65 66 68 Respiratory Rate 13 14 23 Respiratory Effort / Characteristics Non-Labored Non-Labored Respiratory Depth Deep Normal Blood Pressure Blood Pressure [Right Arm] 100/51 L 86/54 L 119/58 L Blood Pressure Mean Blood Pressure Mean [Right Arm] 67 64 78 Pulse Oximetry 100 100 100 Oxygen Delivery Method Oxymask Oxymask Mechanical Vent Oxygen Flow Rate 9 9 Sepsis Recent Fever Within 48 Hours Sepsis New/Unexplained Change in Mental Status Sepsis Action Taken by Nursing Oxygen Flow Rate - Titration Laboratory Data 08/06/23 16:54 08/06/23 16:54 Lab Results 08/06/23 08/06/23 08/06/23 Range/Units 16:43 16:50 16:54 WBC 9.70 (4.8-10.8) K/ul RBC 3.66 L (4.20-5.40) M/uL Hgb 10.5 L (12.0-16.0) g/dl POC Hgb 10.2 L (12.0-16.0) g/dl Hct 33.5 L (37.0-47.0) % POC Hct 30 L (37-47) % MCV 91.5 (80.0-100.0) fL MCH 28.7 (25.0-34.0) pg MCHC 31.3 L (32.0-36.0) g/dL RDW Std Deviation 54.4 H (36.4-46.3) fL RDW Coeff of Cyn 16.3 H (11.5-14.5) % Plt Count 194 (130-400) K/uL MPV 10.5 (9.4-12.4) fL Immature Gran % (Auto) 0.5 % Neut % (Auto) 71.3 % Lymph % (Auto) 20.0 % [place] % (Auto) 7.6 % Eos % (Auto) 0.1 % Baso % (Auto) 0.5 % Neut # (Auto) 6.91 H (1.40-6.50) K/uL Lymph # (Auto) 1.94 (1.20-3.40) K/uL [place] # (Auto) 0.74 H (0.11-0.59) K/uL Eos # (Auto) 0.01 (0.00-0.50) K/uL Baso # (Auto) 0.05 (0.00-0.20) K/uL Immature Gran # (Auto) 0.05 (0.01-0.20) K/uL VBG pH 7.27 L (7.36-7.41) VBG pCO2 52 H (38-50) mmHg VBG pO2 28 mmHg VBG HCO3 24 mmol/L VBG O2 Saturation < 60.0 % VBG Base Excess -3.6 mEq/L POC Sodium 137 (135-144) mmol/L Sodium 137 (136-145) mmol/L POC Potassium 4.6 (3.3-5.0) mmol/L Potassium 4.7 (3.5-5.1) mmol/L POC Chloride 106 (101-112) mmol/L Chloride 106 (98-107) mmol/L Carbon Dioxide 23 (21-32) mmol/L POC Total CO2 22 L (24-31) mmol/L Anion Gap 8 (3-11) POC Anion Gap 14.0 L (16-25) mmol/L POC BUN 21 H (7-18) mg/dl BUN 22 (6-23) mg/dl Creatinine 1.00 (0.6-1.2) mg/dl POC Creatinine 1.1 (0.6-1.3) mg/dl Est Cr Clr Drug Dosing 44.2 ml/min Est GFR ( Amer) 64.7 ml/min Est GFR (Non-Af Amer) 55.8 ml/min BUN/Creatinine Ratio 22.0 H (10-20) Glucose 132 H (70-99(Fasting)) mg/dl POC Glucose 127 H (70-99) mg/dl POC Glucose (other) 132 H (70-99) mg/dl Lactate 2.5 H* (0.4-2.0) mmol/L Calcium 8.8 (8.6-10.3) mg/dl POC Ioniz Calcium [place] 1.14 (1.12-1.32) mmol/l Magnesium 3.1 H (1.7-2.4) mg/dl Total Bilirubin 0.5 (0.2-1.0) mg/dl Direct Bilirubin 0.2 (0-0.2) mg/dl AST 20 (13-39) U/L ALT 14 (7-52) U/L Alkaline Phosphatase 66 (34-104) U/L Troponin I High Sens 7.1 (0-14) pg/ml Total Protein 5.3 L (6.0-8.3) gm/dl Albumin 3.6 (3.4-5.0) gm/dl Procalcitonin < 0.05 (0-0.5) ng/ml Urine Color Urine Appearance (Clear) Urine pH (4.5-7.5) Ur Specific [place] (1.000-1.030) Urine Protein (Negative) Urine Glucose (UA) (Negative) Urine Ketones (Negative) Urine Blood (Negative) Urine Nitrite (Negative) Urine Bilirubin (Negative) Urine Urobilinogen (Negative) Ur Leukocyte Esterase (Negative) 08/06/23 Range/Units 17:36 WBC (4.8-10.8) K/ul RBC (4.20-5.40) M/uL Hgb (12.0-16.0) g/dl POC Hgb (12.0-16.0) g/dl Hct (37.0-47.0) % POC Hct (37-47) % MCV (80.0-100.0) fL MCH (25.0-34.0) pg MCHC (32.0-36.0) g/dL RDW Std Deviation (36.4-46.3) fL RDW Coeff of Cyn (11.5-14.5) % Plt Count (130-400) K/uL MPV (9.4-12.4) fL Immature Gran % (Auto) % Neut % (Auto) % Lymph % (Auto) % [place] % (Auto) % Eos % (Auto) % Baso % (Auto) % Neut # (Auto) (1.40-6.50) K/uL Lymph # (Auto) (1.20-3.40) K/uL [place] # (Auto) (0.11-0.59) K/uL Eos # (Auto) (0.00-0.50) K/uL Baso # (Auto) (0.00-0.20) K/uL Immature Gran # (Auto) (0.01-0.20) K/uL VBG pH (7.36-7.41) VBG pCO2 (38-50) mmHg VBG pO2 mmHg VBG HCO3 mmol/L VBG O2 Saturation % VBG Base Excess mEq/L POC Sodium (135-144) mmol/L Sodium (136-145) mmol/L POC Potassium (3.3-5.0) mmol/L Potassium (3.5-5.1) mmol/L POC Chloride (101-112) mmol/L Chloride (98-107) mmol/L Carbon Dioxide (21-32) mmol/L POC Total CO2 (24-31) mmol/L Anion Gap (3-11) POC Anion Gap (16-25) mmol/L POC BUN (7-18) mg/dl BUN (6-23) mg/dl Creatinine (0.6-1.2) mg/dl POC Creatinine (0.6-1.3) mg/dl Est Cr Clr Drug Dosing ml/min Est GFR ( Amer) ml/min Est GFR (Non-Af Amer) ml/min BUN/Creatinine Ratio (10-20) Glucose (70-99(Fasting)) mg/dl POC Glucose (70-99) mg/dl POC Glucose (other) (70-99) mg/dl Lactate (0.4-2.0) mmol/L Calcium (8.6-10.3) mg/dl POC Ioniz Calcium [place] (1.12-1.32) mmol/l Magnesium (1.7-2.4) mg/dl Total Bilirubin (0.2-1.0) mg/dl Direct Bilirubin (0-0.2) mg/dl AST (13-39) U/L ALT (7-52) U/L Alkaline Phosphatase (34-104) U/L Troponin I High Sens (0-14) pg/ml Total Protein (6.0-8.3) gm/dl Albumin (3.4-5.0) gm/dl Procalcitonin (0-0.5) ng/ml Urine Color Dark Yellow Urine Appearance Clear (Clear) Urine pH 6.5 (4.5-7.5) Ur Specific [place] 1.014 (1.000-1.030) Urine Protein Negative (Negative) Urine Glucose (UA) Negative (Negative) Urine Ketones Negative (Negative) Urine Blood Negative (Negative) Urine Nitrite Negative (Negative) Urine Bilirubin Negative (Negative) Urine Urobilinogen Negative (Negative) Ur Leukocyte Esterase Negative (Negative) Administered Medications Epinephrine HCl () 4 mg in 254 mls @ 4.915 mls/hr IV .Q24H [facility]; Protocol Stop: 09/05/23 17:29 Last Titration: 08/06/23 18:31 Dose: 0.04 mcg/kg/min, 9.8 mls/hr Documented By: Titration: 08/06/23 18:04 Dose: 0.03 mcg/kg/min, 7.4 mls/hr Documented By: Admin: 08/06/23 17:30 Dose: 0.02 mcg/kg/min, 4.9 mls/hr Documented By: UZAIR Co-signed By: POP Sodium Chloride (Nss) 1,000 mls @ 999 mls/hr IV .Q1H1M ONE Stop: 08/06/23 18:58 Last Infusion: 02/05/24 18:14 Dose: Infused Documented By: Admin: 08/06/23 17:59 Dose: 999 mls/hr Documented By: UZAIR Propofol (Diprivan) 1,000 mg in 100 mls @ 7.74 mls/hr IV .[id number] JAMEL; Protocol Stop: 08/09/23 18:59 Last Admin: 08/06/23 19:01 Dose: 20 mcg/kg/min, 7.7 mls/hr Documented By: UZAIR Co-signed By: SHYANN Discontinued Medications Sodium Chloride (Nss) 1,000 mls @ 999 mls/hr IV .Q1H1M JAMEL Stop: 08/06/23 17:45 Last Infusion: 08/06/23 18:14 Dose: Infused Documented By: Admin: 08/06/23 16:57 Dose: 999 mls/hr Documented By: UZAIR Piperacillin Sod/Tazobactam Sod (Zosyn) 4.5 gm in 100 mls @ 200 mls/hr IV NOW ONE Stop: 08/06/23 18:10 Last Infusion: 08/06/23 18:14 Dose: Infused Documented By: Admin: 08/06/23 17:51 Dose: 200 mls/hr Documented By: UZAIR Ondansetron HCl (Ondansetron Inj 2 Mg/Ml 2 Ml Vial) Confirm Administered Dose 4 mg .ROUTE .STK-MED ONE Stop: 08/06/23 16:50 Last Admin: 08/06/23 16:57 Dose: 4 mg Documented By: UZAIR Imaging Data Radiologist's Impression: Head CT 08/06/23 16:43 CT OF THE HEAD WITHOUT CONTRAST CLINICAL HISTORY: Altered mental status. COMPARISON STUDY: Head CT July 12, 2023. TECHNIQUE: Helical axial images of the head were obtained without IV contrast. Automated exposure control was utilized for the study. A dose lowering technique was utilized adhering to the principles of ALARA. FINDINGS: No acute intracranial hemorrhage, midline shift or mass effect is present. The ventricular system is unremarkable. The basal cisterns are patent. No extra-axial collections are present. There are no findings to suggest acute dural sinus thrombosis or acute territorial infarct. There is no acute calvarial fracture. Right posterior calvarial defect is chronic. IMPRESSION: No acute intracranial findings. No change in appearance of the brain. ACT 112: Negative or not required by law. Electronically signed by: Lukas Law M.D. 08/06/2023 5:31 PM Chest X-Ray 08/06/23 16:44 XR chest 1V portable CLINICAL HISTORY: Sepsis. COMPARISON STUDY: Chest radiograph August 06, 2023 at 1:00 AM. FINDINGS: Lung volumes are mildly diminished. No pneumothorax or pleural effusion is present. There is no consolidation to suggest pneumonia. Mild cardiomegaly is again noted. IMPRESSION: No acute cardiopulmonary findings. ACT 112: Negative or not required by law. Electronically signed by: Lukas Law M.D. 08/06/2023 5:18 PM Abdomen/Pelvis CT 08/06/23 17:02 CT OF THE ABDOMEN AND PELVIS WITHOUT CONTRAST CLINICAL HISTORY: Distention. COMPARISON STUDY: CT of the abdomen and pelvis December 16, 2022. TECHNIQUE: Axial images of the abdomen and pelvis were obtained without IV contrast. Images were reviewed in the axial, sagittal, and coronal planes. Automated exposure control was utilized for the study. A dose lowering technique was utilized adhering to the principles of ALARA. FINDINGS: Evaluation of the abdomen and pelvis is suboptimal on this unenhanced exam. Liver, spleen, adrenal glands, kidneys and pancreas are unremarkable. There is no biliary or pancreatic ductal dilatation. There is no hydronephrosis. There is a large amount of stool within the colon. The sigmoid colon is redundant. There is mild wall thickening of the mid to distal transverse colon, splenic flexure and descending colon. A small amount of ascites is present. No well-defined fluid collections are identified. Of note, there is possible small amount of extraluminal gas within the pelvis. Differentiation between intraluminal and extraluminal gas is difficult on this exam given paucity of intra-abdominal fat. The colon is moderately distended. This is due to the stool. No definite evidence for a bowel obstruction. IMPRESSION: 1. Large amount of stool within the colon. Mild left colon wall thickening. This represents a nonspecific colitis and could reflect a stercoral colitis given the amount of stool. No evidence for a bowel obstruction. 2. Small amount of ascites. Possible extraluminal gas within the pelvis. Differentiation between intraluminal and extraluminal gas is difficult on this exam. A bowel perforation cannot be excluded. Findings discussed with Karla Hilton at time of dictation. ACT 112: Negative or not required by law. Electronically signed by: Lukas Law M.D. 08/06/2023 5:43 PM Discharge Plan Visit Data Chief Complaint: Illness Stated Complaint: UNRESPONSIVE ED Provider: Karla Hilton Discharge Problem: Unresponsive, Elevated lactic acid level, Bowel perforation, Endotracheally intubated, Hypermagnesemia Forms Stand Alone Forms: My [facility] Prescriptions Prescriptions: No Action levothyroxine [Synthroid] 50 mcg tablet 50 mcg PO DAILYBB duloxetine [Cymbalta] 60 mg capsule,delayed release(DR/EC) 60 mg PO QAM atorvastatin 20 mg Tablet 20 mg PO HS sumatriptan succinate 100 mg Tablet 100 mg PO DAILY PRN (Reason: Headache) loratadine [Claritin] 10 mg Tablet 10 mg PO HS PRN (Reason: Allergy Symptoms) magnesium oxide 400 mg magnesium Tablet 400 mg PO QAM riboflavin (vitamin B2) 400 mg tablet 400 mg PO QAM metformin 500 mg tablet 500 mg PO QAM Rx Instructions: take with breakfast fluticasone propionate [Flonase Allergy Relief] 50 mcg/actuation [place],Suspension 2 spray INTRANASAL DAILY aspirin [Aspirin Childrens] 81 mg Tablet,Chewable 81 mg PO DAILY docusate sodium [Colace] 100 mg Capsule 100 mg PO BID gabapentin 100 mg Capsule See Rx Instructions .ROUTE .COMPLEX Rx Instructions: TAKE 200 MG QAM & HS, THEN 100 MG AT 1400 DAILY clozapine 100 mg tablet 300 mg PO HS clozapine 25 mg tablet 50 mg PO QAM omeprazole 40 mg capsule,delayed release(DR/EC) 40 mg PO HS cholecalciferol (vitamin D3) 1,250 mcg (50,000 unit) capsule 1,250 mcg PO WK lisinopril 20 mg tablet 20 mg PO QAM metoprolol succinate 50 mg tablet extended release 24 hr 50 mg PO QAM cyanocobalamin (vitamin B-12) [Vitamin B-12] 1,000 mcg Tablet 1,000 mcg PO DAILY amlodipine 5 mg Tablet 5 mg PO DAILY Metamucil Smooth Texture S/F Powder 1 tsp PO TID Rx Instructions: mix into at least 4 oz water or juice before administering diclofenac sodium [Voltaren] 50 mg Tablet,Delayed Release (Dr/Ec) 50 mg PO BID acetaminophen 500 mg/15 mL Liquid 100 mg PO Q4H PRN (Reason: PAIN/FEVER) diclofenac sodium [Voltaren] 1 % Gel 2 g TOPICAL TID PRN (Reason: Pain) Rx Instructions: APPLY TO BACK OF NECK methenamine hippurate 1 gram tablet 1 g PO [facility] Vitron-C 65 mg iron- 125 mg Tablet,Delayed Release (Dr/Ec) 1 tab PO DAILY Referrals Referrals: Raymond Vann DO [Primary Care Provider] -
[2023-08-06 17:03] LABS: iSTAT Creatinine 1.1 mg/dl (0.6-1.3); iSTAT Hemoglobin 10.2 g/dl (12.0-16.0); iSTAT Ionized Calcium 1.14 mmol/l (1.12-1.32); iSTAT Potassium 4.6 mmol/L (3.3-5.0)
[2023-08-06 17:09] LABS: Base Excess VBG -3.6 mEq/L; HCO3 VBG 24 mmol/L; Oxygen Saturation VBG < 60.0 %; PCO2 VBG 52 mmHg (38-50); PO2 VBG 28 mmHg; pH VBG 7.27 (7.36-7.41)
[2023-08-06 17:16] LABS: Basophils # (auto) 0.05 K/uL (0.00-0.20); Basophils % (auto) 0.5 %; Eosinophils # (auto) 0.01 K/uL (0.00-0.50); Eosinophils % (auto) 0.1 %; Hematocrit (blood only) 33.5 % (37.0-47.0); Hemoglobin 10.5 g/dl (12.0-16.0); Immature Granulocytes # (auto) 0.05 K/uL (0.01-0.20); Immature Granulocytes % (auto) 0.5 %; Lymphocytes # (auto) 1.94 K/uL (1.20-3.40); Mean Corpuscular Hemoglobin 28.7 pg (25.0-34.0); Mean Corpuscular Hgb Conc 31.3 g/dL (32.0-36.0); Mean Corpuscular Volume 91.5 fL (80.0-100.0); Mean Platelet Volume 10.5 fL (9.4-12.4); Monocytes # (auto) 0.74 K/uL (0.11-0.59); Monocytes % (auto) 7.6 %; Neutrophils # (auto) 6.91 K/uL (1.40-6.50); Neutrophils % (auto) 71.3 %; Platelet Count 194 K/uL (130-400); RDW Coefficient of Variation 16.3 % (11.5-14.5); RDW Standard Deviation 54.4 fL (36.4-46.3); Red Blood Count 3.66 M/uL (4.20-5.40)
--- NOTE | 2023-08-06 17:19 | XRay Report ---
XR chest 1V portable CLINICAL HISTORY: Sepsis. COMPARISON STUDY: Chest radiograph August 06, 2023 at 1:00 AM. FINDINGS: Lung volumes are mildly diminished. No pneumothorax or pleural effusion is present. There i s no consolidation to suggest pneumonia. Mild cardiomegaly is again noted. IMPRESSION: No acute cardiopulmonary findings. ACT 112: Negative or not required by law. Electronically signed by: Lukas Law M.D. 08/06/2023 5:18 PM
[2023-08-06] MEDS ORDERED: STAT IV Infusion **Titration per Protocol STA ×4 (17:29→22:13)
[2023-08-06] MEDS: EPINEPHrine/NSS 4 MG/254 ML BAG IV SCH (17:30)
[2023-08-06 17:32] LABS: Albumin Level 3.6 gm/dl (3.4-5.0); Bilirubin Direct 0.2 mg/dl (0-0.2); Bilirubin,Total 0.5 mg/dl (0.2-1.0); Calcium 8.8 mg/dl (8.6-10.3); Creatinine Clr Calc Pharmacy 44.2 ml/min; Est GFR (African American) 64.7 ml/min; Est GFR (Non-African American) 55.8 ml/min; Magnesium 3.1 mg/dl (1.7-2.4); Potassium 4.7 mmol/L (3.5-5.1); Total Protein 5.3 gm/dl (6.0-8.3)
--- NOTE | 2023-08-06 17:32 | CT Scan Report ---
CT OF THE HEAD WITHOUT CONTRAST CLINICAL HISTORY: Altered mental status. COMPARISON STUDY: Head CT July 12, 2023. TECHNIQUE: Helical axial images of the head were obtained without IV contrast. Automated exposure con trol was utilized for the study. A dose lowering technique was utilized adhering to the principles o f ALARA. FINDINGS: No acute intracranial hemorrhage, midline shift or mass effect is present. The ventricular system is unremarkable. The basal cisterns are patent. No extra-axial collections are present. There are no findings to suggest acute dural sinus thrombosis or acute territorial infarct. There is no acu te calvarial fracture. Right posterior calvarial defect is chronic. IMPRESSION: No acute intracranial findings. No change in appearance of the brain. ACT 112: Negative or not required by law. Electronically signed by: Lukas Law M.D. 08/06/2023 5:31 PM
[2023-08-06 17:37] LABS: Troponin I High Sensitivity 7.1 pg/ml (0-14)
--- NOTE | 2023-08-06 17:45 | CT Scan Report ---
CT OF THE ABDOMEN AND PELVIS WITHOUT CONTRAST CLINICAL HISTORY: Distention. COMPARISON STUDY: CT of the abdomen and pelvis December 16, 2022. TECHNIQUE: Axial images of the abdomen and pelvis were obtained without IV contrast. Images were revi ewed in the axial, sagittal, and coronal planes. Automated exposure control was utilized for the roscoe dy. A dose lowering technique was utilized adhering to the principles of ALARA. FINDINGS: Evaluation of the abdomen and pelvis is suboptimal on this unenhanced exam. Liver, spleen, adrenal glands, kidneys and pancreas are unremarkable. There is no biliary or pancreatic ductal dilat ation. There is no hydronephrosis. There is a large amount of stool within the colon. The sigmoid col on is redundant. There is mild wall thickening of the mid to distal transverse colon, splenic flexure and descending colon. A small amount of ascites is present. No well-defined fluid collections are id entified. Of note, there is possible small amount of extraluminal gas within the pelvis. Differentiat ion between intraluminal and extraluminal gas is difficult on this exam given paucity of intra-abdomi nal fat. The colon is moderately distended. This is due to the stool. No definite evidence for a john l obstruction. IMPRESSION: 1. Large amount of stool within the colon. Mild left colon wall thickening. This represents a nonspec ific colitis and could reflect a stercoral colitis given the amount of stool. No evidence for a bowel obstruction. 2. Small amount of ascites. Possible extraluminal gas within the pelvis. Differentiation between intr aluminal and extraluminal gas is difficult on this exam. A bowel perforation cannot be excluded. Find ings discussed with Karla Hilton at time of dictation. ACT 112: Negative or not required by law. Electronically signed by: Lukas Law M.D. 08/06/2023 5:43 PM
[2023-08-06 17:48] LABS: Appearance Urine Clear (Clear); Bilirubin Urine Negative (Negative); Blood Urine Negative (Negative); Color Urine Dark Yellow; Glucose Urine UA Negative (Negative); Ketones Urine Negative (Negative); Leukocyte Esterase Urine Negative (Negative); Nitrite Urine Negative (Negative); Protein Urine Negative (Negative); Specific Gravity Urine 1.014 (1.000-1.030); Urobilinogen Urine Negative (Negative); pH Urine 6.5 (4.5-7.5)
[2023-08-06] MEDS: PIPERACILLIN/TAZOBACTAM 4.5 GM/100 ML BAG IV ONE (17:51)
[2023-08-06] MEDS: SODIUM CHLORIDE 0.9% 1,000 ML IV ONE (17:59)
[2023-08-06] MEDS: ETOMIDATE 2 MG/ML 20 ML VIAL IV ONE (18:46)
[2023-08-06] MEDS: SUCCINYLCHOLINE CHLORIDE 20 MG/ML 10 ML VIAL IV ONE (18:47)
--- NOTE | 2023-08-06 18:55 | History & Physical Report ---
Date of Service August 06, 2023 Assessment & Plan (1) Shock: (2) Elevated lactic acid level: (3) Bowel perforation: Plan Ms. Deutsch is a 72 year old woman with a past medical history HTN, HLD, DMII, hypothyroidism, Hx of brain tumor s/p partial resection years ago (unknown pathology), somatization disorder, schizophrenia, prior migraine, chronic anemia, recurrent UTIs, urinary incontinence and urinary bladder diverticulum presented after being found down and minimally responsive at home. Patient admitted to ICU for management and evaluationinti of shock with unclear etiology at this time, however, initial imaging concerning for bowel perforation. Labs unrevealing without leukocytosis, acute anemia, LFT elevation. Only notable lab is lactate elevated to 2.5 on admission and nongap metabolic acidosis 2/2 to lactate likely. Exam noted with firm distention of abdomen. # Shock possibly distributive, unclear etiology, possibly secondary to bowel perforation #Large volume stool burden -Patient found unresponsive, required atropine/Epi iso hypotension bradycardia -CT imaging with large volume stool burden, question of perforation -General surgery consulted -Pending recommendations -Continue pressor support per Pulverizer recommendations -NGT placement -Analgesia/Sedation per ICU protocol -Infectious work up pending -Vanc/Zosyn in interim #Acute respiratory failure requiring mechanical ventilation -poor airway movement in ED, profound encephalopathy, intubation for airway protection and respiratory support -Vent management per ICU #Cognitive Impairment #Schizophrenia Recommended 24 hour support previously, relies on assistance of two care givers On clozapine, cymbalta, gabapentin, resume when appropriate High risk for delirium, ICU delirium precautions #Hypothyroidism Resume Levothyroxine when able TSH in am given hypotension/ams/bradycardia #Hypertension Hold home lisinopril 20mg, amlodpine and metoprolol #HLD Hold statin #DMTII Hold home metformin ICU hyperglycemia protocol #Recurrent UTI Hold home methenamine #Recurrent migraines Hold magnesium, riboflavin #Chronic normocytic anemia -Hgb baseline ~10, stable Montior CBC Analgesia: fentanyl Sedation: Propofol Pressor: Epi Ulcer PPX pantoprazole IV DVT heparin sq HOB 30 Hou placed 08/06 Full Code: patient does NOT have POA, caregivers do not know patient's thoughts on code status, this has not been discussed previously Admission and Anticipated Discharge Date Admission Date: Time spent evaluating patient, direct bedside care, chart review, placing orders, interpretation of diagnostic studies, discussion with consultants, patient, and family members, as well as other required patient management activities is 75 minutes. History of Present Illness Chief Complaint: Unresponsive Primary Care Provider: Raymond Vann DO Ms. Deutsch is a 72 year old woman with a past medical history HTN, HLD, DMII, hypothyroidism, Hx of brain tumor s/p partial resection years ago (unknown pathology), somatization disorder, schizophrenia, prior migraine, chronic anemia, recurrent UTIs, urinary incontinence and urinary bladder diverticulum presented after being found down and minimally responsive at home. EMS arrived and noted patient to be hypotensive to low 60s. Patient was administered atropine/epi in route with marginal improvement in mental status; however, patient agitated on ED arrival and offered minimal information. Mental status progressively decline and pressor support increased prompting right jugular central line placement per ED. Patient evaluated prior to anticipated intubation. Patient with intermittent desaturations, poor respiratory effort. Pressor support increasing. Patient responsive minimally to physical stimuli. Spoke to Caregiver, Little, on phone. She states that patient was in her usual state of health the last few weeks without any concerns and in usual state of health. Sidney last saw patient around noon today and seemed to be fine--ambulating and eating without issue. She reports that the patient's neighbor called her as patient was outside and delirious, prompting visit to the ED-patient had noted 3 days of weakness, however, exam this morning was unremarkable, thus patient discharged home. This is when caregiver Sidney stayed by patient's side until noon--as the patient seemed to be at baseline, until the afternoon caregiver found her much later unresponsive. In the ED, vitals were notable for BP of 80-90s on epi drip, HR in 60s, and O2 sat of 50-90s prior to intubation Imaging revealed large stool burden, nonspecific colitis, small amount of ascites, bowel perforation? iso extralimnal gas EKG stable compared to prior, qtc 410 ED interventions: RIJ central line, Epi drip Consultants: ICU Patient to be admitted to ICU for further evaluation and management of shock, unclear etiology, likely iso bowel perforation. Allergies Allergy/AdvReac Type Severity Reaction Status Date / Time Penicillins Allergy Intermediate Hives Verified 08/06/23 02:02 pollen extracts Allergy Intermediate seasonal Verified 08/06/23 02:02 allergy Cephalosporins AdvReac Intermediate Hallucinations/GI Verified 08/06/23 02:02 UPSET/ CONFUSION cyclobenzaprine AdvReac Intermediate neuro Verified 08/06/23 02:02 [From Flexeril] complications rizatriptan [From Maxalt] AdvReac Intermediate VERTIGO Verified 08/06/23 02:02 Home Medications Medication Instructions Recorded Confirmed Type duloxetine 60 mg capsule,delayed 60 mg PO QAM 04/14/18 08/06/23 History release (Cymbalta) levothyroxine 50 mcg tablet 50 mcg PO DAILYBB 04/14/18 08/06/23 History (Synthroid) loratadine 10 mg tablet (Claritin) 10 mg PO HS PRN Allergy Symptoms 03/25/19 08/06/23 History magnesium oxide 400 mg PO QAM 03/25/19 08/06/23 History atorvastatin 20 mg tablet 20 mg PO HS 11/22/19 08/06/23 History sumatriptan succinate 100 mg tablet 100 mg PO DAILY PRN Headache 11/22/19 08/06/23 History metformin 500 mg tablet 500 mg PO QAM 02/24/21 08/06/23 History riboflavin (vitamin B2) 400 mg 400 mg PO QAM 02/24/21 08/06/23 History tablet fluticasone propionate 50 2 spray intranasal DAILY 07/13/21 08/06/23 History mcg/actuation nasal spray,suspension (Flonase Allergy Relief) aspirin 81 mg chewable tablet 81 mg PO DAILY 05/12/22 08/06/23 History (Aspirin Childrens) docusate sodium 100 mg capsule 100 mg PO BID 07/13/22 08/06/23 History (Colace) gabapentin 100 mg capsule See Rx Instructions .Route .COMPLEX 09/01/22 08/06/23 History cholecalciferol (vitamin D3) 1,250 1,250 mcg PO WK 12/16/22 08/06/23 History mcg (50,000 unit) capsule clozapine 100 mg tablet 300 mg PO HS 12/16/22 08/06/23 History clozapine 25 mg tablet 50 mg PO QAM 12/16/22 08/06/23 History omeprazole 40 mg capsule,delayed 40 mg PO HS 12/16/22 08/06/23 History release lisinopril 20 mg tablet 20 mg PO QAM 01/15/23 08/06/23 History metoprolol succinate 50 mg 50 mg PO QAM 03/08/23 08/06/23 History tablet,extended release 24 hr acetaminophen 500 mg/15 mL oral 100 mg PO Q4H PRN PAIN/FEVER 08/06/23 08/06/23 History liquid amlodipine 5 mg tablet 5 mg PO DAILY 08/06/23 08/06/23 History cyanocobalamin (vitamin B-12) 1,000 mcg PO DAILY 08/06/23 08/06/23 History 1,000 mcg tablet (Vitamin B-12) diclofenac sodium 1 % topical gel 2 g topical TID PRN Pain 08/06/23 08/06/23 History diclofenac sodium 50 mg 50 mg PO BID 08/06/23 08/06/23 History tablet,delayed release iron,carbonyl 65 mg-vitamin C 125 1 tab PO DAILY 08/06/23 08/06/23 History mg tablet,delayed release (Vitron-C) methenamine hippurate 1 gram tablet 1 g PO [facility] 08/06/23 08/06/23 History psyllium 1 tsp PO TID 08/06/23 08/06/23 History Past Med/Surg History Medical History Weakness Constipation Bacteremia Acute UTI (urinary tract infection) Generalized weakness AMS (altered mental status) Unresponsive Obtunded COVID-19 Hyponatremia Nausea Dehydration Dizziness Neuropathy Headache Vertigo Schizophrenia GERD (gastroesophageal reflux disease) Well controlled with medication Hypothyroidism Anxiety Migraine Hypertension Neuropathy DM2 (diabetes mellitus, type 2) HLD (hyperlipidemia) Somatization disorder Surgical History S/P foot surgery, right X2 S/P foot surgery, left X2 History of colonoscopy History of tooth extraction WISDOM TEETH History of tonsillectomy H/O bilateral cataract extraction History of craniotomy 1969, [place] D/T HEADACHE---FOLLOWS W DR. MICHAEL History of cataract surgery H/O cystoscopy H/O foot surgery H/O brain surgery "abt 1969 R parietal exploration for benign lesion" Family History Grandmother Family history of diabetes mellitus PATERNAL Family/Other Family history of diabetes mellitus UNCLE Father Parkinson disease Mother CHF (congestive heart failure) Social History Smoking Status: Never smoker Second Hand Exposure: Yes (FATHER SMOKED); Do You Dip or Chew Tobacco: No; Hx Alcohol Use: No Hx Substance Use: No Preferred Language: Tamazight Communication Ability: Effective Wool Tamper Required: No Beliefs That Will Affect Care: None marital status: Single Current Living Situation: Alone Current Living Situation Comment: caregivers daily, not on weekends How many Children do You have: 0 Feels Safe at Home: Yes Assistive Devices: Walker Review of Systems Review of Systems: Unobtainable due to reduced consciousness Physical Exam Constitutional: ill appearing woman, not alert, minimal responsiveness to physial stimuli Eyes: equal, reactive, nondilated, no deviation Respiratory: minimal effort Cardiovascular: RRR, no murmur, no gallop Gastrointestinal (Abdomen): firm, profoundly distended Skin: ashen/warm/dry Results & Data Results & Data Vital Signs (Past 12 Hours) Vital Signs Temp Pulse Pulse Resp BP BP Pulse Ox 08/06/23 18:31 66 14 86/54 L 100 08/06/23 18:10 65 13 100/51 L 100 08/06/23 18:03 63 20 96/45 L 100 08/06/23 17:52 63 14 94/46 L 100 08/06/23 17:40 63 20 92/45 L 100 08/06/23 17:27 59 L 20 99/47 L 100 08/06/23 16:58 65 16 99/48 L 100 08/06/23 16:49 68 08/06/23 16:49 98 08/06/23 16:49 98 08/06/23 16:49 36.6 C 90 20 105/53 L 98 O2 Del Method O2 Flow Rate 08/06/23 18:31 Oxymask 08/06/23 18:10 Oxymask 08/06/23 18:03 Oxymask 08/06/23 17:52 Oxymask 08/06/23 17:40 Oxymask 08/06/23 17:27 Oxymask 08/06/23 16:58 Oxymask 08/06/23 16:49 08/06/23 16:49 Oxymask 08/06/23 16:49 Oxymask 08/06/23 16:49 Oxymask 10 Laboratory Results Short CBC 08/06/23 Range/Units 16:54 WBC 9.70 (4.8-10.8) K/ul Hgb 10.5 L (12.0-16.0) g/dl Hct 33.5 L (37.0-47.0) % Plt Count 194 (130-400) K/uL BMP 08/06/23 16:54 Sodium 137 Potassium 4.7 Chloride 106 Carbon Dioxide 23 BUN 22 Creatinine 1.00 Glucose 132 H Calcium 8.8 Liver Function 08/06/23 Range/Units 16:54 Total Bilirubin 0.5 (0.2-1.0) mg/dl Direct Bilirubin 0.2 (0-0.2) mg/dl AST 20 (13-39) U/L ALT 14 (7-52) U/L Alkaline Phosphatase 66 (34-104) U/L Albumin 3.6 (3.4-5.0) gm/dl Urine 08/06/23 Range/Units 17:36 Urine Color Dark Yellow Urine Appearance Clear (Clear) Urine pH 6.5 (4.5-7.5) Ur Specific [place] 1.014 (1.000-1.030) Urine Protein Negative (Negative) Urine Glucose (UA) Negative (Negative) Medications Administered Home Medications Medication Instructions Recorded Confirmed Last Taken duloxetine 60 mg capsule,delayed 60 mg PO QAM 04/14/18 08/06/23 07/22/22 release (Cymbalta) levothyroxine 50 mcg tablet 50 mcg PO DAILYBB 04/14/18 08/06/23 07/22/22 (Synthroid) loratadine 10 mg tablet (Claritin) 10 mg PO HS PRN Allergy Symptoms 03/25/19 08/06/23 07/21/22 magnesium oxide 400 mg PO QAM 03/25/19 08/06/23 07/22/22 atorvastatin 20 mg tablet 20 mg PO HS 11/22/19 08/06/23 07/21/22 sumatriptan succinate 100 mg tablet 100 mg PO DAILY PRN Headache 11/22/19 08/06/23 Unknown metformin 500 mg tablet 500 mg PO QAM 02/24/21 08/06/23 07/22/22 riboflavin (vitamin B2) 400 mg 400 mg PO QAM 02/24/21 08/06/23 07/22/22 tablet fluticasone propionate 50 2 spray intranasal DAILY 07/13/21 08/06/23 07/22/22 mcg/actuation nasal spray,suspension (Flonase Allergy Relief) aspirin 81 mg chewable tablet 81 mg PO DAILY 05/12/22 08/06/23 07/22/22 (Aspirin Childrens) docusate sodium 100 mg capsule 100 mg PO BID 07/13/22 08/06/23 07/22/22 08:00 (Colace) gabapentin 100 mg capsule See Rx Instructions .Route .COMPLEX 09/01/22 08/06/23 Unknown cholecalciferol (vitamin D3) 1,250 1,250 mcg PO WK 12/16/22 08/06/23 Unknown mcg (50,000 unit) capsule clozapine 100 mg tablet 300 mg PO HS 12/16/22 08/06/23 Unknown clozapine 25 mg tablet 50 mg PO [facility] 12/16/22 08/06/23 Unknown omeprazole 40 mg capsule,delayed 40 mg PO HS 12/16/22 08/06/23 Unknown release lisinopril 20 mg tablet 20 mg PO M 01/15/23 08/06/23 Unknown metoprolol succinate 50 mg 50 mg PO M 03/08/23 08/06/23 Unknown tablet,extended release 24 hr acetaminophen 500 mg/15 mL oral 100 mg PO Q4H PRN PAIN/FEVER 08/06/23 08/06/23 Unknown liquid amlodipine 5 mg tablet 5 mg PO DAILY 08/06/23 08/06/23 Unknown cyanocobalamin (vitamin B-12) 1,000 mcg PO DAILY 08/06/23 08/06/23 Unknown 1,000 mcg tablet (Vitamin B-12) diclofenac sodium 1 % topical gel 2 g topical TID PRN Pain 08/06/23 08/06/23 Unknown diclofenac sodium 50 mg 50 mg PO BID 08/06/23 08/06/23 Unknown tablet,delayed release iron,carbonyl 65 mg-vitamin C 125 1 tab PO DAILY 08/06/23 08/06/23 Unknown mg tablet,delayed release (Vitron-C) methenamine hippurate 1 gram tablet 1 g PO [facility] 08/06/23 08/06/23 Unknown psyllium 1 tsp PO TID 08/06/23 08/06/23 Unknown Active Medications Generic Name Dose Route Start Last Admin Trade Name Nicolasq PRN Reason Stop Dose Admin Epinephrine HCl 4 mg in 254 mls @ 4.915 mls/hr 08/06/23 17:30 08/06/23 18:31 IV 09/05/23 17:29 0.04 mcg/kg/min .Q24H JAMEL 9.8 mls/hr Titration Protocol 0.02 MCG/KG/MIN Propofol 1,000 mg in 100 mls @ 7.74 mls/hr 08/06/23 19:00 08/06/23 19:01 Diprivan IV 08/09/23 18:59 20 mcg/kg/min .[id number] JAMEL 7.7 mls/hr Administration Protocol 20 MCG/KG/MIN Code Status & VTE Plan VTE Prophylaxis Plan VTE Prophylaxis will be ordered: Yes
[2023-08-06] MEDS: propofoL 1,000 MG/100 ML VIAL IV SCH (19:01)
[2023-08-06] MEDS: fentaNYL citrate PF 100 MCG/2 ML VIAL IV SCH (19:04)
[2023-08-06] MEDS: PROPOFOL IV EMULSION 10 MG/ML 100 ML VIAL IV ONE (19:08)
[2023-08-06 19:21] LABS: iSTAT Arterial Blood Gas HCO3 20 meg/L (19-24); iSTAT Arterial Blood Gas pCO2 45 mmHg (35-46); iSTAT Arterial Blood Gas pH 7.25 (7.35-7.45); iSTAT Arterial Blood Gas pO2 197 mmHg (80-95); iSTAT Carbon Dioxide 21 mmol/L (24-31); iSTAT Hematocrit 29 % (37-47); iSTAT Hemoglobin 9.9 g/dl (12.0-16.0); iSTAT Sodium 139 mmol/L (135-144)
[2023-08-06] MEDS: OPTIRAY 320 500ml IV ONE (19:54)
[2023-08-06] MEDS: fentaNYL citrate 2,500 MCG/250 ML BAG IV SCH (20:20)
--- NOTE | 2023-08-06 20:21 | Surgery Consultation ---
<Statement entered by Makenna Blanchard, - 08/07/23 21:01> I saw and examined this patient with the surgical PA. There is no stool in the rectal vault. A follow up CT had been done which confirms that the small amount of air in question is not free air and is contained within the colon. Date of Consultation August 06, 2023 Assessment & Plan (1) Bowel perforation: The patient has been admitted on the hospital service to the intensive care unit. I discussed the case with my attending physician, Dr. Merlyn Herrrea and she has reviewed the patient's CT scan. She notes with the patient's current CT scan she does not see conclusive evidence the patient has a bowel perforation. A CT scan of the abdomen pelvis utilizing intravenous contrast has been ordered and is pending. Will follow for results of this to see if this provides any more information or evidence of bowel perforation As there is no clear evidence of bowel perforation for the present time we will treat the patient conservatively in the following manner: The patient is intubated on a ventilator. She does have an OG tube in place which should be maintained along with n.p.o. status Hydration measures with intravenous fluids to be Continue antibiotics in form of Zosyn Pending the patient's progress and findings of her pending CT scan consideration may be given to performing a CT scan utilizing either oral contrast given via her OG tube or rectal contrast to further evaluate for bowel perforation Further care as directed by the primary service and communication center operator service Addendum (9:00 PM) Repeat CT scan of patient's abdomen pelvis was performed following her initial CT scan. The CT scan utilize intravenous contrast and did demonstrate a prominent stool burden as seen on the patient's initial CT scan. There is findings of concerning developing sterile coral colitis. The interpreting radiologist did not feel that there is any pneumatosis or pneumoperitoneum. These results were conveyed to my attending physician, Dr. Alfaro. As there is no evidence of colonic perforation on the repeat CT scan she feels we can initiate some gentle saline enemas to see if this will help alleviate some of the patient's noted stool burden. History of Present Illness Reason for Consultation: Concern for possible bowel perforation Attending Physician: Mell Cary MD History of Present Illness This is a 72-year-old female who presented to the emergency department secondary to altered mental status. Patient was seen in the emergency department on the evening of 08/05/2023 leading into the morning of 08/06/2023. The primary reason for this visit was the patient's caretakers noted to have some ambulatory dysfunction along with dizziness and weakness for approximately 3 days. During this visit the patient did have a chest x-ray that did not show any evidence of pneumonia she also had labs where CBC showed normal white blood cell count and normal platelet count. The patient's hemoglobin and hematocrit were 10.5 and 32.8. Coagulation studies at that time were normal. She also had a chemistry profile her sodium is 135 with a normal potassium and normal creatinine. BUN had a slight elevation at 26. The patient did not have any evidence of elevated LFTs on these laboratories and a urinalysis was negative for infection. The patient was felt to be fit for discharge home. The patient was brought back to the emergency department as her caregivers noted that she was unresponsive. At the time of my interview the patient was intubated and sedated and cannot provide any history. There is no family present. According reports from the nurse the patient's caretakers noted that she appeared to be in her usual state of health at approximate 1:00 PM today however approximate 2 hours later an additional armhole presser noted that the patient was sitting in a reclining chair unresponsive with agonal breathing. The patient was brought to the emergency department where she was noted to be hypotensive with a blood pressure of 60/30 and a heart rate of approximate 45. The patient was afebrile upon presentation. The patient was given intravenous fluids as well as several rounds of atropine and epinephrine. She received antibiotics in form of Zosyn. She was ultimately intubated and placed on a dipper Van and epinephrine drip. Since arrival to the hospital the patient has had labs and imaging which independent reviewed. A CT scan of the head showed no acute intracranial findings. Chest x-ray showed no acute cardiopulmonary findings. A CT scan of the abdomen pelvis showed the patient had a large amount of stool noted within the colon. There is also concern for nonspecific colitis of the left colon as well as possible sterile coral colitis. There is no evidence of bowel obstruction. There is concern for potential extraluminal gas in the pelvis with inability to exclude a bowel perforation. Labs included CBC her white blood cell count was within normal range as was the platelet count. Hemoglobin and hematocrit were 10.5 and 33.5. The patient did have a chemistry profile her sodium and potassium were normal. Her BUN and creatinine were noted to be normal. She did have an elevated lactic acid level at 2.4. There is no elevation of patient's LFTs. Urinalysis was not indicative of infection. The patient did have an arterial blood gas which showed a pH of 7.25 and a pCO2 of 45. Her bicarbonate level was 20. At the time of my encounter with the patient she was sedated and intubated Allergies Allergy/AdvReac Type Severity Reaction Status Date / Time Penicillins Allergy Intermediate Hives Verified 08/06/23 02:02 pollen extracts Allergy Intermediate seasonal Verified 08/06/23 02:02 allergy Cephalosporins AdvReac Intermediate Hallucinations/GI Verified 08/06/23 02:02 UPSET/ CONFUSION cyclobenzaprine AdvReac Intermediate neuro Verified 08/06/23 02:02 [From Flexeril] complications rizatriptan [From Maxalt] AdvReac Intermediate VERTIGO Verified 08/06/23 02:02 Home Medications Medication Instructions Recorded Confirmed Type duloxetine 60 mg capsule,delayed 60 mg PO QAM 04/14/18 08/06/23 History release (Cymbalta) levothyroxine 50 mcg tablet 50 mcg PO DAILYBB 04/14/18 08/06/23 History (Synthroid) loratadine 10 mg tablet (Claritin) 10 mg PO HS PRN Allergy Symptoms 03/25/19 08/06/23 History magnesium oxide 400 mg PO QAM 03/25/19 08/06/23 History atorvastatin 20 mg tablet 20 mg PO HS 11/22/19 08/06/23 History sumatriptan succinate 100 mg tablet 100 mg PO DAILY PRN Headache 11/22/19 08/06/23 History metformin 500 mg tablet 500 mg PO QAM 02/24/21 08/06/23 History riboflavin (vitamin B2) 400 mg 400 mg PO QAM 02/24/21 08/06/23 History tablet fluticasone propionate 50 2 spray intranasal DAILY 07/13/21 08/06/23 History mcg/actuation nasal spray,suspension (Flonase Allergy Relief) aspirin 81 mg chewable tablet 81 mg PO DAILY 05/12/22 08/06/23 History (Aspirin Childrens) docusate sodium 100 mg capsule 100 mg PO BID 07/13/22 08/06/23 History (Colace) gabapentin 100 mg capsule See Rx Instructions .Route .COMPLEX 09/01/22 08/06/23 History cholecalciferol (vitamin D3) 1,250 1,250 mcg PO WK 12/16/22 08/06/23 History mcg (50,000 unit) capsule clozapine 100 mg tablet 300 mg PO HS 12/16/22 08/06/23 History clozapine 25 mg tablet 50 mg PO QAM 12/16/22 08/06/23 History omeprazole 40 mg capsule,delayed 40 mg PO HS 12/16/22 08/06/23 History release lisinopril 20 mg tablet 20 mg PO QAM 01/15/23 08/06/23 History metoprolol succinate 50 mg 50 mg PO QAM 03/08/23 08/06/23 History tablet,extended release 24 hr acetaminophen 500 mg/15 mL oral 100 mg PO Q4H PRN PAIN/FEVER 08/06/23 08/06/23 History liquid amlodipine 5 mg tablet 5 mg PO DAILY 08/06/23 08/06/23 History cyanocobalamin (vitamin B-12) 1,000 mcg PO DAILY 08/06/23 08/06/23 History 1,000 mcg tablet (Vitamin B-12) diclofenac sodium 1 % topical gel 2 g topical TID PRN Pain 08/06/23 08/06/23 History diclofenac sodium 50 mg 50 mg PO BID 08/06/23 08/06/23 History tablet,delayed release iron,carbonyl 65 mg-vitamin C 125 1 tab PO DAILY 08/06/23 08/06/23 History mg tablet,delayed release (Vitron-C) methenamine hippurate 1 gram tablet 1 g PO AMHS 08/06/23 08/06/23 History psyllium 1 tsp PO TID 08/06/23 08/06/23 History Patient History Medical History Weakness Constipation Bacteremia Acute UTI (urinary tract infection) Generalized weakness AMS (altered mental status) Unresponsive Obtunded COVID-19 Hyponatremia Nausea Dehydration Dizziness Neuropathy Headache Vertigo Schizophrenia GERD (gastroesophageal reflux disease) Well controlled with medication Hypothyroidism Anxiety Migraine Hypertension Neuropathy DM2 (diabetes mellitus, type 2) HLD (hyperlipidemia) Somatization disorder Surgical History S/P foot surgery, right X2 S/P foot surgery, left X2 History of colonoscopy History of tooth extraction WISDOM TEETH History of tonsillectomy H/O bilateral cataract extraction History of craniotomy 1969, [place] D/T HEADACHE---FOLLOWS W DR. MICHAEL History of cataract surgery H/O cystoscopy H/O foot surgery H/O brain surgery "abt 1969 R parietal exploration for benign lesion" Family History Grandmother Family history of diabetes mellitus PATERNAL Family/Other Family history of diabetes mellitus UNCLE Father Parkinson disease Mother CHF (congestive heart failure) Social History Smoking Status: Never smoker Second Hand Exposure: Yes (FATHER SMOKED); Do You Dip or Chew Tobacco: No; Hx Alcohol Use: No Hx Substance Use: No Preferred Language: Libyan Communication Ability: Effective Crane Hooker Required: No Beliefs That Will Affect Care: Congregational Congregational Beliefs: congregation marital status: Single Current Living Situation: Personal Care Facility Current Living Situation Comment: caregivers daily, not on weekends How many Children do You have: 0 Feels Safe at Home: Yes Assistive Devices: Glasses and Walker Review of Systems Review of Systems: Unobtainable due to cognitive status Physical Exam Constitutional: Patient intubated and sedated on a ventilator at the time of my encounter Eyes: At the time of my exam patient's pupils were noted to be equal and poorly reactive to light Neck: trachea midline Respiratory: Breath sounds are present bilaterally and aided with the ventilator Cardiovascular: Rate/Rhythm: regular rate and regular rhythm Vessels: dorsalis pedis pulses present and radial pulses present Gastrointestinal (Abdomen): Abdomen is firm and moderately distended. Bowel sounds are absent. With palpation of the patient's abdomen this did appear to elicit a painful response to the patient. With a nurse supervisor paste plant present a rectal examination was performed by my attending physician, Dr. Alfaro. She noted that she was unable to palpate any masses or hard pieces of stool. (Please refer to her attending portion of this note for further description) Musculoskeletal: No lower extremity edema. Extremities are nonmottled Skin: no rashes Neurologic: Unable to assess neurologic exam as patient was sedated on a ventilator Genitourinary: A Hou catheter was in place draining clear yellow urine. This was placed by the emergency room staff at this visit Results & Data Vital Signs (Past 12 Hours) Vital Signs Temp Pulse Pulse Resp BP BP Pulse Ox 08/06/23 19:40 64 13 96 08/06/23 19:40 100/51 L 08/06/23 19:30 95/49 L 08/06/23 19:30 63 18 100 08/06/23 19:20 96/48 L 08/06/23 19:20 65 17 08/06/23 19:10 126/65 08/06/23 19:10 70 17 100 08/06/23 19:00 67 21 100 08/06/23 19:00 121/59 L 08/06/23 18:50 76 15 100 08/06/23 18:50 138/63 08/06/23 18:49 119/58 L 08/06/23 18:49 74 21 100 08/06/23 18:49 68 23 119/58 L 100 08/06/23 18:47 68 21 100 08/06/23 18:47 106/69 08/06/23 18:40 105/47 L 08/06/23 18:40 75 21 82 L 08/06/23 18:31 66 14 86/54 L 100 08/06/23 18:30 67 13 100 08/06/23 18:30 86/54 L 08/06/23 18:20 98/46 L 08/06/23 18:20 68 16 100 08/06/23 18:10 65 13 100 08/06/23 18:10 100/51 L 08/06/23 18:10 65 13 100/51 L 100 08/06/23 18:03 63 20 96/45 L 100 08/06/23 18:00 96/45 L 08/06/23 18:00 63 13 100 08/06/23 17:52 63 14 94/46 L 100 08/06/23 17:50 75 12 99 08/06/23 17:50 94/46 L 08/06/23 17:40 92/45 L 08/06/23 17:40 63 13 100 08/06/23 17:40 63 20 92/45 L 100 08/06/23 17:30 59 L 13 96 08/06/23 17:30 99/48 L 08/06/23 17:28 59 L 15 99 08/06/23 17:28 99/47 L 08/06/23 17:27 59 L 20 99/47 L 100 08/06/23 17:20 59 L 14 100 08/06/23 17:15 89/47 L 08/06/23 17:15 60 15 08/06/23 16:58 65 16 99/48 L 100 08/06/23 16:50 64 16 98 08/06/23 16:49 68 08/06/23 16:49 98 08/06/23 16:49 98 08/06/23 16:49 36.6 C 90 20 105/53 L 98 08/06/23 16:45 66 14 100 08/06/23 16:45 99/48 L 08/06/23 16:41 68 16 83 L O2 Del Method O2 Flow Rate FiO2 08/06/23 19:40 40 08/06/23 19:40 08/06/23 19:30 08/06/23 19:30 40 08/06/23 19:20 08/06/23 19:20 40 08/06/23 19:10 08/06/23 19:10 40 08/06/23 19:00 40 08/06/23 19:00 08/06/23 18:50 08/06/23 18:50 08/06/23 18:49 08/06/23 18:49 08/06/23 18:49 Mechanical Vent 08/06/23 18:47 08/06/23 18:47 08/06/23 18:40 08/06/23 18:40 08/06/23 18:31 Oxymask 9 08/06/23 18:30 08/06/23 18:30 08/06/23 18:20 08/06/23 18:20 08/06/23 18:10 08/06/23 18:10 08/06/23 18:10 Oxymask 08/06/23 18:03 Oxymask 08/06/23 18:00 08/06/23 18:00 08/06/23 17:52 Oxymask 08/06/23 17:50 08/06/23 17:50 08/06/23 17:40 08/06/23 17:40 08/06/23 17:40 Oxymask 11 08/06/23 17:30 08/06/23 17:30 08/06/23 17:28 08/06/23 17:28 08/06/23 17:27 Oxymask 11 08/06/23 17:20 08/06/23 17:15 08/06/23 17:15 08/06/23 16:58 Oxymask 11 08/06/23 16:50 08/06/23 16:49 08/06/23 16:49 Oxymask 10 08/06/23 16:49 Oxymask 08/06/23 16:49 Oxymask 10 08/06/23 16:45 08/06/23 16:45 08/06/23 16:41 PG Care Time/CCT Total # of Minutes Spent Total Time Spent with Patient: Total time spent is greater than 50% in coordination of care (as documented) at patient's floor/unit and/or counseling patient: Coding Level of Care Code 61345 INT INP/OBS CARE 3/75MIN Diagnoses Bowel perforation K63.1
[2023-08-06] MEDS: PROPOFOL BOLUS FROM BAG IV PRN (20:30)
[2023-08-06] MEDS: fentaNYL BOLUS from BAG IV PRN (20:30)
--- NOTE | 2023-08-06 20:39 | CT Scan Report ---
Exam(s): CT ABDOMEN + PELVIS With Contrast IV Amt: 84 ml opti 320 EXAM: CT Abdomen and Pelvis With Intravenous Contrast CLINICAL HISTORY: eval for perforation or further infective source. TECHNIQUE: Axial computed tomography images of the abdomen and pelvis with intravenous contrast. CTDI is 24.84 mGy and DLP is 1299.28 mGy-cm. Automated exposure control was utilized for the study. A dose lowering technique was utilized adhering to the principles of ALARA. CONTRAST: Patient received 84 ml opti 320 of IV contrast COMPARISON: CT abdomen and pelvis without contrast dated 08/06/2023 FINDINGS: Lung bases: See below. Pleural space: Subsegmental dependent changes involving the posterior costophrenic margins. No lobar consolidation. Heart: Similar cardiomegaly. ABDOMEN: Liver: Mild periportal lucency/edema. Gallbladder and bile ducts: Unremarkable. No calcified stones. No ductal dilation. Pancreas: Unremarkable. No mass. No ductal dilation. Spleen: Unremarkable. No splenomegaly. Adrenals: Unremarkable. No mass. Kidneys and ureters: Unremarkable. No solid mass. No hydronephrosis. Stomach and bowel: Prominent stool burden involving the distal transverse, descending and sigmoid colon with mild mucosal thickening and subtle pericolonic fat stranding. The distal rectosigmoid is decompressed, as is the right colon with colonic mucosal thickening, slightly greater than expected for degree of decompression. The pattern of constipation is similar to the previous CT examination. There is mild distention of the stomach with fluid and gas. There is fluid distention of the duodenum. Small bowel is probably decompressed. PELVIS: Appendix: The appendix is stable in appearance along the medial aspect of the cecum in the right lower quadrant. Bladder: The bladder is decompressed with a Hou catheter in position. Reproductive: Unremarkable as visualized. ABDOMEN and PELVIS: Intraperitoneal space: Unremarkable. No free air. No significant fluid collection. Bones/joints: Similar hyperdense fat stranding and soft tissue changes overlying the lateral aspect of both hips. No acute fracture. No dislocation. Soft tissues: Unremarkable. Vasculature: Unremarkable. No abdominal aortic aneurysm. Lymph nodes: Unremarkable. No enlarged lymph nodes. Tubes, lines and devices: There is a nasogastric tube which terminates in the distal thoracic esophagus. IMPRESSION: 1. Prominent stool burden involving the distal transverse, descending and sigmoid colon with mild mucosal thickening and subtle pericolonic fat stranding. The distal rectosigmoid is decompressed, as is the right colon with colonic mucosal thickening, slightly greater than expected for degree of decompression. The pattern of constipation is similar to the previous CT examination. Developing stercoral colitis is suggested. No pneumatosis or pneumoperitoneum. 2. Mild periportal lucency/edema. This is a nonspecific finding but the primary consideration is hypervolemia. Acute hepatitis or cholangitis is considered less likely. Please correlate with laboratory findings. 3. There is a nasogastric tube which terminates in the distal thoracic esophagus. Recommend advancement for placement into the stomach, as clinically desired. Electronically signed by: Jerel Santana MD 08/06/23 20:38 PM
--- NOTE | 2023-08-06 20:49 | Critical Care Consultation ---
Date of Consultation August 06, 2023 Assessment & Plan (1) Shock: (2) Encephalopathy acute: (3) Endotracheally intubated: (4) Elevated lactic acid level: (5) DM2 (diabetes mellitus, type 2): (6) Abdominal pain: (7) HLD (hyperlipidemia): (8) Somatization disorder: Plan Reason Critically Ill: 72 YOF presents with bradycardia, hypothermia, encephalopathy requiring emergent intubation and vasopressor administration in setting of pure nongap metabolic acidosis Neuro - Encephalopathy, CAM ICU: Negative - Unclear etiology at this time- does not appear to be infective and was not reported without any seizure activity and no reported focal deficits - Head CT scan negative for bleed, mass, or LVO - Will send TSH and T4 now as well as random cortisol level - Will add thiamine 200mg IV now and then daily- if improvement could consider increasing dose (unsure of baseline nutritional state) - Urine tox screen - LFTS normal so doubt ammonia confounding problem - Obtain MRI if able to get questionnaire tonight- eval for occult CVA or encep halitis - Hold sedation in morning Cardiac - Shock unspecified - Without organ dysfunction and no clear source of infection at this time- will continue treatment for distributive/hypovolemic - does not appear to be central/neurologic at this time - See endo below - Continue with vasopressor support with epinephrine +/- vasopressin - fluid responsive at this time and bedside POCUS is consistent with hypovolemia - baseline HR is normally in the 50s - CTA of chest is also without pericardial effusion- bedside pocus confirms however difficult image with amount of bowel gas - She is on a BB at home, however is she is with normal renal function so clearance should not be an issue- she is also with normal glucose level - unsure of who administers medications at home or her access- however support at this time would continue to be supportive Respiratory - Mechanically ventilated and intubated - Without acute respiratory involvement at this time- extubation would be limited on mental status and participation GI - Chronic constipation, stercoral colitis, - There was initial concern for bowel perforation regarding initial imaging- CT abdomen and pelvis with contrast obtained and reviewed by surgery - at this time they do not feel this is an acute perforation- appreciate their assistance and consultation - Will add enemas for stool burden RENAL/LYTES - Pure metabolic acidosis non gap - Unsure of her etiology other than metformin associated in setting of hypovolemia - support with balance crystalloid- if continues to decrease consider changing to isotonic bicarb infusion - potassium is normal and chloride is normal - Hou to gravity - continue while intubated ENDO - Hypothyroidism, DMII - Check TSH and T4 at this time consider T3 if T4 low and TSH high- hypothermic/bradycardic/hypotensive - Check random cortisol secondary to needing multiple vasopressors HEME - No acute needs ID - Stercoral colitis - She is without organ dysfunction and lactate cleared- continue with empiric GI coverage until clinical picture becomes more clear LINES/IV ACCESS - CVL, ETT, OGT, Hou, [place] Continue use of these lines - On arrival to ICU- CVL backed out 3cm, OGT advanced 25 cm, ETT stable DVT PROPHYLAXIS - SCDS, Heparin 5000 units subq q8h DISPO: ICU while intubated and on vasopressors I have personally spent 55 minutes of critical care time in the direct management of this patient. This is a life/limb threatening event. This includes time spent evaluating patient, direct bedside care, chart review, placing orders, interpretation of diagnostic studies, discussion with consultants, patient, and family members, as well as other required patient management activities. This time is exclusive of all separately billable procedures, and teaching time and separate from and in addition to any other critical care service time. Thank you for allowing us to participate in the care of this patient. Please refer to my attending physician's documentation for any further recommendations. History of Present Illness Reason for Consultation: Encephalopathy requiring intubation and mechanical ventilation associated with bradycardia/hypotension requiring vasopressor support Requesting Physician: Mell Cary MD Attending Physician: Mell Cary MD History of Present Illness 72 YOF with medical history of: HTN, Hypothyroidism, HLD, brain tumor with unspecified resection or pathology, Schizophrenia with somatization, chronic constipation and chronic UTI. Rashaun was brought into the EMD today via EMS after being found down by her caregivers unresponsive. Per EMD note and report patient was with GCS of 3 and bradycardic requiring atropine administration, push dose epinephrine on transport which had desired effects as well as with increase in mentation/agitation. On arrival to the EMD she remained obtunded and confused- she was on epinephrine infusion as well as intubated secondary to inability to protect her airway. She underwent head CT scan that was negative for intracranial/central process, and had a non con CT abdomen and pelvis ordered for abdominal distention and abdominal pain. This was questionable for free air and surgery was consulted. She had routine labs performed that were with minimally elevated lactic acidosis, metabolic acidosis without AGAP, and with normal glucose. ICU was consulted for ongoing management. Patient was evaluated in the EMD following intubation and CVL placement. She is sedated and physical exam unremarkable other than distended abdomen in lower bilateral quadrants. Will admit to ICU, place arterial line, obtain CT abdomen/pelvis with contrast to better delineate bowel laguerre, obtain TSH and free T4 as she is bradycardic/hypothermic/requiring vasopressors. Blood cultures obtained. PCT negative. Of note the patient was also seen in the EMD on 08/06/23 early in the morning at 0200 for what appears to be dizziness, ambulatory dysfunction, and weakness. Unfortunately the note is not available for review at this time. Labs from that timeframe are reviewed as well and are relatively unremarkable as well. CXR reviewed from that timeframe as well and was negative. CODE: FULL Allergies Allergy/AdvReac Type Severity Reaction Status Date / Time Penicillins Allergy Intermediate Hives Verified 08/06/23 02:02 pollen extracts Allergy Intermediate seasonal Verified 08/06/23 02:02 allergy Cephalosporins AdvReac Intermediate Hallucinations/GI Verified 08/06/23 02:02 UPSET/ CONFUSION cyclobenzaprine AdvReac Intermediate neuro Verified 08/06/23 02:02 [From Flexeril] complications rizatriptan [From Maxalt] AdvReac Intermediate VERTIGO Verified 08/06/23 02:02 Home Medications Medication Instructions Recorded Confirmed Type duloxetine 60 mg capsule,delayed 60 mg PO QAM 04/14/18 08/06/23 History release (Cymbalta) levothyroxine 50 mcg tablet 50 mcg PO DAILYBB 04/14/18 08/06/23 History (Synthroid) loratadine 10 mg tablet (Claritin) 10 mg PO HS PRN Allergy Symptoms 03/25/19 08/06/23 History magnesium oxide 400 mg PO QAM 03/25/19 08/06/23 History atorvastatin 20 mg tablet 20 mg PO HS 11/22/19 08/06/23 History sumatriptan succinate 100 mg tablet 100 mg PO DAILY PRN Headache 11/22/19 08/06/23 History metformin 500 mg tablet 500 mg PO QAM 02/24/21 08/06/23 History riboflavin (vitamin B2) 400 mg 400 mg PO QAM 02/24/21 08/06/23 History tablet fluticasone propionate 50 2 spray intranasal DAILY 07/13/21 08/06/23 History mcg/actuation nasal spray,suspension (Flonase Allergy Relief) aspirin 81 mg chewable tablet 81 mg PO DAILY 05/12/22 08/06/23 History (Aspirin Childrens) docusate sodium 100 mg capsule 100 mg PO BID 07/13/22 08/06/23 History (Colace) gabapentin 100 mg capsule See Rx Instructions .Route .COMPLEX 09/01/22 08/06/23 History cholecalciferol (vitamin D3) 1,250 1,250 mcg PO WK 12/16/22 08/06/23 History mcg (50,000 unit) capsule clozapine 100 mg tablet 300 mg PO HS 12/16/22 08/06/23 History clozapine 25 mg tablet 50 mg PO QAM 12/16/22 08/06/23 History omeprazole 40 mg capsule,delayed 40 mg PO HS 12/16/22 08/06/23 History release lisinopril 20 mg tablet 20 mg PO QAM 01/15/23 08/06/23 History metoprolol succinate 50 mg 50 mg PO QAM 03/08/23 08/06/23 History tablet,extended release 24 hr acetaminophen 500 mg/15 mL oral 100 mg PO Q4H PRN PAIN/FEVER 08/06/23 08/06/23 History liquid amlodipine 5 mg tablet 5 mg PO DAILY 08/06/23 08/06/23 History cyanocobalamin (vitamin B-12) 1,000 mcg PO DAILY 08/06/23 08/06/23 History 1,000 mcg tablet (Vitamin B-12) diclofenac sodium 1 % topical gel 2 g topical TID PRN Pain 08/06/23 08/06/23 History diclofenac sodium 50 mg 50 mg PO BID 08/06/23 08/06/23 History tablet,delayed release iron,carbonyl 65 mg-vitamin C 125 1 tab PO DAILY 08/06/23 08/06/23 History mg tablet,delayed release (Vitron-C) methenamine hippurate 1 gram tablet 1 g PO AMHS 08/06/23 08/06/23 History psyllium 1 tsp PO TID 08/06/23 08/06/23 History Patient History Medical History Weakness Constipation Bacteremia Acute UTI (urinary tract infection) Generalized weakness AMS (altered mental status) Unresponsive Obtunded COVID-19 Hyponatremia Nausea Dehydration Dizziness Neuropathy Headache Vertigo Schizophrenia GERD (gastroesophageal reflux disease) Well controlled with medication Hypothyroidism Anxiety Migraine Hypertension Neuropathy DM2 (diabetes mellitus, type 2) HLD (hyperlipidemia) Somatization disorder Surgical History S/P foot surgery, right X2 S/P foot surgery, left X2 History of colonoscopy History of tooth extraction WISDOM TEETH History of tonsillectomy H/O bilateral cataract extraction History of craniotomy 1969, [place] D/T HEADACHE---FOLLOWS W DR. MICHAEL History of cataract surgery H/O cystoscopy H/O foot surgery H/O brain surgery "abt 1969 R parietal exploration for benign lesion" Family History Grandmother Family history of diabetes mellitus PATERNAL Family/Other Family history of diabetes mellitus UNCLE Father Parkinson disease Mother CHF (congestive heart failure) Social History Smoking Status: Never smoker Second Hand Exposure: Yes (FATHER SMOKED); Do You Dip or Chew Tobacco: No; Hx Alcohol Use: No Hx Substance Use: No Preferred Language: Nepali Communication Ability: Effective Smoke Control Supervisor Required: No Beliefs That Will Affect Care: Congregational Congregational Beliefs: adventist marital status: Single Current Living Situation: Personal Care Facility Current Living Situation Comment: caregivers daily, not on weekends How many Children do You have: 0 Feels Safe at Home: Yes Assistive Devices: Glasses and Walker Review of Systems Review of Systems: unable to obtain secondary to intubation and sedation Physical Exam Physical Exam: PHYSICAL EXAM: General: Intubated and sedated Head: Normocephalic, atraumatic ENT: PERRLA, no pharyngeal exudate, mucous membranes dry Neuro: intubated and sedated, no focal deficits reported prior to intubation apparently, withdraws to pain, Chest: equal rise and fall of the chest, no accessory muscle use, clear throughout Cardiac: Regular rate and rhythm, telemetry reviewed- sinus to sinus bradycardia, skin warm dry, cap refill <3 seconds, peripheral pulses +2 no JVD, no murmur, GI: NABS x 4 quadrants, distended abdomen lower bilateral quadrants, soft upper : Hou to gravity draining yellow bennett urine Psych: BG Skin: no rash or erythema Results & Data Results & Data Vital Signs (Past 12 Hours) Vital Signs Temp Pulse Pulse Resp BP BP Pulse Ox 08/06/23 20:18 35.0 C L 67 16 121/59 L 98 08/06/23 20:13 35.0 C L 66 18 100 08/06/23 20:13 121/59 L 08/06/23 20:10 22 08/06/23 20:08 24 08/06/23 19:40 64 13 96 08/06/23 19:40 100/51 L 08/06/23 19:30 95/49 L 08/06/23 19:30 63 18 100 08/06/23 19:20 96/48 L 08/06/23 19:20 65 17 08/06/23 19:10 126/65 08/06/23 19:10 70 17 100 08/06/23 19:00 67 21 100 08/06/23 19:00 121/59 L 08/06/23 18:50 76 15 100 08/06/23 18:50 138/63 08/06/23 18:49 119/58 L 08/06/23 18:49 74 21 100 08/06/23 18:49 68 23 119/58 L 100 08/06/23 18:47 68 21 100 08/06/23 18:47 106/69 08/06/23 18:40 105/47 L 08/06/23 18:40 75 21 82 L 08/06/23 18:31 66 14 86/54 L 100 08/06/23 18:30 67 13 100 08/06/23 18:30 86/54 L 08/06/23 18:20 98/46 L 08/06/23 18:20 68 16 100 08/06/23 18:10 65 13 100 08/06/23 18:10 100/51 L 08/06/23 18:10 65 13 100/51 L 100 08/06/23 18:03 63 20 96/45 L 100 08/06/23 18:00 96/45 L 02/05/24 18:00 63 13 100 08/06/23 17:52 63 14 94/46 L 100 08/06/23 17:50 75 12 99 08/06/23 17:50 94/46 L 08/06/23 17:40 92/45 L 08/06/23 17:40 63 13 100 08/06/23 17:40 63 20 92/45 L 100 08/06/23 17:30 59 L 13 96 08/06/23 17:30 99/48 L 08/06/23 17:28 59 L 15 99 08/06/23 17:28 99/47 L 08/06/23 17:27 59 L 20 99/47 L 100 08/06/23 17:20 59 L 14 100 08/06/23 17:15 89/47 L 08/06/23 17:15 60 15 08/06/23 16:58 65 16 99/48 L 100 08/06/23 16:50 64 16 98 08/06/23 16:49 68 08/06/23 16:49 98 08/06/23 16:49 98 08/06/23 16:49 36.6 C 90 20 105/53 L 98 08/06/23 16:45 66 14 100 08/06/23 16:45 99/48 L 08/06/23 16:41 68 16 83 L O2 Del Method O2 Flow Rate FiO2 08/06/23 20:18 Mechanical Vent 08/06/23 20:13 08/06/23 20:13 08/06/23 20:10 08/06/23 20:08 08/06/23 19:40 40 08/06/23 19:40 08/06/23 19:30 08/06/23 19:30 40 08/06/23 19:20 08/06/23 19:20 40 08/06/23 19:10 08/06/23 19:10 40 08/06/23 19:00 40 08/06/23 19:00 08/06/23 18:50 08/06/23 18:50 08/06/23 18:49 08/06/23 18:49 08/06/23 18:49 Mechanical Vent 08/06/23 18:47 08/06/23 18:47 08/06/23 18:40 08/06/23 18:40 08/06/23 18:31 Oxymask 9 08/06/23 18:30 08/06/23 18:30 08/06/23 18:20 08/06/23 18:20 08/06/23 18:10 08/06/23 18:10 08/06/23 18:10 Oxymask 9 08/06/23 18:03 Oxymask 11 08/06/23 18:00 08/06/23 18:00 08/06/23 17:52 Oxymask 08/06/23 17:50 08/06/23 17:50 08/06/23 17:40 08/06/23 17:40 08/06/23 17:40 Oxymask 08/06/23 17:30 08/06/23 17:30 08/06/23 17:28 08/06/23 17:28 08/06/23 17:27 Oxymask 08/06/23 17:20 08/06/23 17:15 08/06/23 17:15 08/06/23 16:58 Oxymask 08/06/23 16:50 08/06/23 16:49 08/06/23 16:49 Oxymask 10 08/06/23 16:49 Oxymask 08/06/23 16:49 Oxymask 10 08/06/23 16:45 08/06/23 16:45 08/06/23 16:41 Laboratory Results Abnormal lab results 08/06/23 08/06/23 08/06/23 Range/Units 16:43 16:50 16:54 RBC 3.66 L (4.20-5.40) M/uL Hgb 10.5 L (12.0-16.0) g/dl POC Hgb 10.2 L (12.0-16.0) g/dl Hct 33.5 L (37.0-47.0) % POC Hct 30 L (37-47) % MCHC 31.3 L (32.0-36.0) g/dL RDW Std Deviation 54.4 H (36.4-46.3) fL RDW Coeff of Cyn 16.3 H (11.5-14.5) % Neut # (Auto) 6.91 H (1.40-6.50) K/uL [place] # (Auto) 0.74 H (0.11-0.59) K/uL POC pH (7.35-7.45) POC pO2 (80-95) mmHg POC HCO3 (19-24) jason/L ABG pH (Temp Correct) (7.35-7.45) ABG pCO2 (Temp Corrct (35-46) mmHg POC ABG O2 Sat (90-95) % VBG pH 7.27 L (7.36-7.41) VBG pCO2 52 H (38-50) mmHg POC Total CO2 22 L (24-31) mmol/L POC Anion Gap 14.0 L (16-25) mmol/L POC BUN 21 H (7-18) mg/dl BUN/Creatinine Ratio 22.0 H (10-20) Glucose 132 H (70-99(Fasting)) mg/dl POC Glucose 127 H (70-99) mg/dl POC Glucose (other) 132 H (70-99) mg/dl Lactate 2.5 H* (0.4-2.0) mmol/L Magnesium 3.1 H (1.7-2.4) mg/dl Total Protein 5.3 L (6.0-8.3) gm/dl 08/06/23 08/06/23 08/06/23 Range/Units 19:04 19:15 21:00 RBC (4.20-5.40) M/uL Hgb (12.0-16.0) g/dl POC Hgb 9.9 L 10.2 L (12.0-16.0) g/dl Hct (37.0-47.0) % POC Hct 29 L 30 L (37-47) % MCHC (32.0-36.0) g/dL RDW Std Deviation (36.4-46.3) fL RDW Coeff of Cyn (11.5-14.5) % Neut # (Auto) (1.40-6.50) K/uL [place] # (Auto) (0.11-0.59) K/uL POC pH 7.25 L 7.30 L (7.35-7.45) POC pO2 197 H (80-95) mmHg POC HCO3 17 L (19-24) jason/L ABG pH (Temp Correct) 7.322 L (7.35-7.45) ABG pCO2 (Temp Corrct 33 L (35-46) mmHg POC ABG O2 Sat 100.0 H 96.0 H (90-95) % VBG pH (7.36-7.41) VBG pCO2 (38-50) mmHg POC Total CO2 21 L 18 L (24-31) mmol/L POC Anion Gap (16-25) mmol/L POC BUN (7-18) mg/dl BUN/Creatinine Ratio (10-20) Glucose (70-99(Fasting)) mg/dl POC Glucose (70-99) mg/dl POC Glucose (other) (70-99) mg/dl Lactate 2.4 H* (0.4-2.0) mmol/L Magnesium (1.7-2.4) mg/dl Total Protein (6.0-8.3) gm/dl 08/06/23 Range/Units 21:20 RBC (4.20-5.40) M/uL Hgb (12.0-16.0) g/dl POC Hgb (12.0-16.0) g/dl Hct (37.0-47.0) % POC Hct (37-47) % MCHC (32.0-36.0) g/dL RDW Std Deviation (36.4-46.3) fL RDW Coeff of Cyn (11.5-14.5) % Neut # (Auto) (1.40-6.50) K/uL [place] # (Auto) (0.11-0.59) K/uL POC pH (7.35-7.45) POC pO2 (80-95) mmHg POC HCO3 (19-24) jason/L ABG pH (Temp Correct) (7.35-7.45) ABG pCO2 (Temp Corrct (35-46) mmHg POC ABG O2 Sat (90-95) % VBG pH (7.36-7.41) VBG pCO2 (38-50) mmHg POC Total CO2 (24-31) mmol/L POC Anion Gap (16-25) mmol/L POC BUN (7-18) mg/dl BUN/Creatinine Ratio (10-20) Glucose (70-99(Fasting)) mg/dl POC Glucose (70-99) mg/dl POC Glucose (other) 220 H (70-99) mg/dl Lactate (0.4-2.0) mmol/L Magnesium (1.7-2.4) mg/dl Total Protein (6.0-8.3) gm/dl Diagnostic Findings Abnormal lab results 08/06/23 08/06/23 08/06/23 Range/Units 16:43 16:50 16:54 RBC 3.66 L (4.20-5.40) M/uL Hgb 10.5 L (12.0-16.0) g/dl POC Hgb 10.2 L (12.0-16.0) g/dl Hct 33.5 L (37.0-47.0) % POC Hct 30 L (37-47) % MCHC 31.3 L (32.0-36.0) g/dL RDW Std Deviation 54.4 H (36.4-46.3) fL RDW Coeff of Cyn 16.3 H (11.5-14.5) % Neut # (Auto) 6.91 H (1.40-6.50) K/uL [place] # (Auto) 0.74 H (0.11-0.59) K/uL POC pH (7.35-7.45) POC pO2 (80-95) mmHg POC HCO3 (19-24) jason/L ABG pH (Temp Correct) (7.35-7.45) ABG pCO2 (Temp Corrct (35-46) mmHg POC ABG O2 Sat (90-95) % VBG pH 7.27 L (7.36-7.41) VBG pCO2 52 H (38-50) mmHg POC Total CO2 22 L (24-31) mmol/L POC Anion Gap 14.0 L (16-25) mmol/L POC BUN 21 H (7-18) mg/dl BUN/Creatinine Ratio 22.0 H (10-20) Glucose 132 H (70-99(Fasting)) mg/dl POC Glucose 127 H (70-99) mg/dl POC Glucose (other) 132 H (70-99) mg/dl Lactate 2.5 H* (0.4-2.0) mmol/L Magnesium 3.1 H (1.7-2.4) mg/dl Total Protein 5.3 L (6.0-8.3) gm/dl 08/06/23 08/06/23 08/06/23 Range/Units 19:04 19:15 21:00 RBC (4.20-5.40) M/uL Hgb (12.0-16.0) g/dl POC Hgb 9.9 L 10.2 L (12.0-16.0) g/dl Hct (37.0-47.0) % POC Hct 29 L 30 L (37-47) % MCHC (32.0-36.0) g/dL RDW Std Deviation (36.4-46.3) fL RDW Coeff of Cyn (11.5-14.5) % Neut # (Auto) (1.40-6.50) K/uL [place] # (Auto) (0.11-0.59) K/uL POC pH 7.25 L 7.30 L (7.35-7.45) POC pO2 197 H (80-95) mmHg POC HCO3 17 L (19-24) jason/L ABG pH (Temp Correct) 7.322 L (7.35-7.45) ABG pCO2 (Temp Corrct 33 L (35-46) mmHg POC ABG O2 Sat 100.0 H 96.0 H (90-95) % VBG pH (7.36-7.41) VBG pCO2 (38-50) mmHg POC Total CO2 21 L 18 L (24-31) mmol/L POC Anion Gap (16-25) mmol/L POC BUN (7-18) mg/dl BUN/Creatinine Ratio (10-20) Glucose (70-99(Fasting)) mg/dl POC Glucose (70-99) mg/dl POC Glucose (other) (70-99) mg/dl Lactate 2.4 H* (0.4-2.0) mmol/L Magnesium (1.7-2.4) mg/dl Total Protein (6.0-8.3) gm/dl 08/06/23 Range/Units 21:20 RBC (4.20-5.40) M/uL Hgb (12.0-16.0) g/dl POC Hgb (12.0-16.0) g/dl Hct (37.0-47.0) % POC Hct (37-47) % MCHC (32.0-36.0) g/dL RDW Std Deviation (36.4-46.3) fL RDW Coeff of Cyn (11.5-14.5) % Neut # (Auto) (1.40-6.50) K/uL [place] # (Auto) (0.11-0.59) K/uL POC pH (7.35-7.45) POC pO2 (80-95) mmHg POC HCO3 (19-24) jason/L ABG pH (Temp Correct) (7.35-7.45) ABG pCO2 (Temp Corrct (35-46) mmHg POC ABG O2 Sat (90-95) % VBG pH (7.36-7.41) VBG pCO2 (38-50) mmHg POC Total CO2 (24-31) mmol/L POC Anion Gap (16-25) mmol/L POC BUN (7-18) mg/dl BUN/Creatinine Ratio (10-20) Glucose (70-99(Fasting)) mg/dl POC Glucose (70-99) mg/dl POC Glucose (other) 220 H (70-99) mg/dl Lactate (0.4-2.0) mmol/L Magnesium (1.7-2.4) mg/dl Total Protein (6.0-8.3) gm/dl Medications Administered Fentanyl Citrate (Fentanyl Bolus From Bag) 50 mcg IV Q60M PRN PRN Reason: Pain or Agitation Stop: 08/20/23 20:20 Last Admin: 08/06/23 20:40 Dose: 75 mcg Documented By: [id number] Co-signed By: UTE Admin: 08/06/23 20:30 Dose: 50 mcg Documented By: [id number] Co-signed By: UTE Heparin Sodium (Porcine) (Heparin Sod 5,000 Unit/0.5 Ml Vial) 5,000 units SQ Q8 JAMEL Stop: 09/05/23 21:59 Last Admin: 08/06/23 22:30 Dose: 5,000 units Documented By: [id number] Epinephrine HCl () 4 mg in 254 mls @ 4.915 mls/hr IV .Q24H [facility]; Protocol Stop: 09/05/23 17:29 Last Titration: 08/06/23 22:00 Dose: 0.08 mcg/kg/min, 19.7 mls/hr Documented By: [id number] Titration: 08/06/23 21:55 Dose: 0.07 mcg/kg/min, 17.2 mls/hr Documented By: [id number] Titration: 08/06/23 21:50 Dose: 0.06 mcg/kg/min, 14.7 mls/hr Documented By: [id number] Titration: 08/06/23 21:45 Dose: 0.05 mcg/kg/min, 12.3 mls/hr Documented By: [id number] Titration: 08/06/23 18:31 Dose: 0.04 mcg/kg/min, 9.8 mls/hr Documented By: Titration: 08/06/23 18:04 Dose: 0.03 mcg/kg/min, 7.4 mls/hr Documented By: Admin: 08/06/23 17:30 Dose: 0.02 mcg/kg/min, 4.9 mls/hr Documented By: [email or web address] Co-signed By: POP Propofol (Diprivan) 1,000 mg in 100 mls @ 11.61 mls/hr IV .Q8H37M [facility]; Protocol Stop: 08/09/23 18:59 Last Titration: 08/06/23 22:15 Dose: 15 mcg/kg/min, 5.8 mls/hr Documented By: [id number] Titration: 08/06/23 22:00 Dose: 20 mcg/kg/min, 7.7 mls/hr Documented By: [id number] Titration: 08/06/23 21:45 Dose: 25 mcg/kg/min, 9.7 mls/hr Documented By: [id number] Titration: 08/06/23 20:30 Dose: 30 mcg/kg/min, 11.6 mls/hr Documented By: [id number] Titration: 08/06/23 19:21 Dose: 15 mcg/kg/min, 5.8 mls/hr Documented By: Admin: 08/06/23 19:01 Dose: 20 mcg/kg/min, 7.7 mls/hr Documented By: [email or web address] Co-signed By: SHYANN Vancomycin HCl 1,500 mg/ (Sodium Chloride) 530 mls @ 200 mls/hr IV NOW ONE Stop: 08/06/23 22:59 Last Admin: 08/06/23 21:01 Dose: 200 mls/hr Documented By: UTE Piperacillin Sod/Tazobactam (Sod 4.5 gm/ Dextrose) 100 mls @ 25 mls/hr IV Q8H [facility]; Protocol Stop: 08/16/23 21:59 Last Admin: 08/06/23 21:02 Dose: 25 mls/hr Documented By: UTE Fentanyl Citrate (Fentanyl Citrate) 2,500 mcg in 250 mls @ 5 mls/hr IV .Q50H [facility]; Protocol Stop: 08/20/23 20:29 Last Titration: 08/06/23 20:30 Dose: 50 mcg/hr, 5 mls/hr Documented By: [id number] Co-signed By: UTE Admin: 08/06/23 20:20 Dose: 25 mcg/hr, 2.5 mls/hr Documented By: UTE Co-signed By: [email or web address] Parenteral Electrolytes (Plasma-Lyte A Ph 7.4) 1,000 mls @ 115 mls/hr IV .Q8H42M [facility] Stop: 09/05/23 20:59 Last Admin: 08/06/23 21:40 Dose: 115 mls/hr Documented By: [id number] Parenteral Electrolytes (Plasma-Lyte A Ph 7.4) 500 mls @ 999 mls/hr IV .Q31M ONE Stop: 08/06/23 22:43 Last Admin: 08/06/23 22:15 Dose: 999 mls/hr Documented By: [id number] Vasopressin 20 units/ Sodium (Chloride) 101 mls @ 12.12 mls/hr IV .Q8H20M [facility] Stop: 09/05/23 22:14 Last Admin: 08/06/23 22:31 Dose: 0.04 unit/min, 12.1 mls/hr Documented By: [id number] Co-signed By: UTE Miscellaneous (Icu Protocol For Hyperglycemia) 1 each N/A ACHS [facility] Stop: 08/08/23 20:59 Last Admin: 08/06/23 22:20 Dose: Not Given Documented By: [id number] Propofol (Propofol Bolus From Bag) 20 mg IV Q5M PRN PRN Reason: Sedation Stop: 08/09/23 18:53 Last Admin: 08/06/23 20:30 Dose: 20 mg Documented By: [id number] Co-signed By: UTE Discontinued Medications Etomidate (Etomidate 2 Mg/Ml 20 Ml Vial) Confirm Administered Dose 40 mg IV .STK-MED ONE Stop: 08/06/23 18:43 Last Increment: 08/06/23 18:46 Dose: 20 mg Documented By: UZAIR Fentanyl Citrate (Fentanyl Citrate Pf 100 Mcg/2 Ml Vial) 50 mcg IV Q1H [facility] Stop: 08/20/23 18:59 Last Admin: 08/06/23 21:02 Dose: Not Given Documented By: Admin: 08/06/23 21:02 Dose: Not Given Documented By: Admin: 08/06/23 19:04 Dose: 50 mcg Documented By: ES Fentanyl Citrate (Fentanyl Citrate 2,500 Mcg/250 Ml Bag) Confirm Administered Dose 2,500 mcg IV .STK-MED ONE Stop: 08/06/23 20:17 Last Admin: 08/06/23 21:02 Dose: Not Given Documented By: UTE Sodium Chloride (Nss) 1,000 mls @ 999 mls/hr IV .Q1H1M [facility] Stop: 08/06/23 17:45 Last Infusion: 08/06/23 18:14 Dose: Infused Documented By: Admin: 08/06/23 16:57 Dose: 999 mls/hr Documented By: UZAIR Piperacillin Sod/Tazobactam Sod (Zosyn) 4.5 gm in 100 mls @ 200 mls/hr IV NOW ONE Stop: 08/06/23 18:10 Last Infusion: 08/06/23 18:14 Dose: Infused Documented By: Admin: 08/06/23 17:51 Dose: 200 mls/hr Documented By: UZAIR Sodium Chloride (Nss) 1,000 mls @ 999 mls/hr IV .Q1H1M ONE Stop: 08/06/23 18:58 Last Infusion: 08/06/23 18:14 Dose: Infused Documented By: Admin: 08/06/23 17:59 Dose: 999 mls/hr Documented By: ES Parenteral Electrolytes (Plasma-Lyte A Ph 7.4) 500 mls @ 999 mls/hr IV .Q31M ONE Stop: 08/06/23 21:21 Last Infusion: 08/06/23 21:38 Dose: Infused Documented By: [id number] Admin: 08/06/23 20:59 Dose: 999 mls/hr Documented By: UTE Ioversol (Optiray 320 500ml) 84 ml IV ONCE ONE Stop: 08/06/23 19:54 Last Admin: 08/06/23 19:54 Dose: 84 ml Documented By: PLW Ondansetron HCl (Ondansetron Inj 2 Mg/Ml 2 Ml Vial) Confirm Administered Dose 4 mg .ROUTE .STK-MED ONE Stop: 08/06/23 16:50 Last Admin: 08/06/23 16:57 Dose: 4 mg Documented By: ES Propofol (Propofol Iv Emulsion 10 Mg/Ml 100 Ml Vial) Confirm Administered Dose 1,000 mg IV .STK-MED ONE Stop: 08/06/23 18:55 Last Admin: 08/06/23 19:08 Dose: Not Given Documented By: ES Succinylcholine Chloride (Succinylcholine Chloride 20 Mg/Ml 10 Ml Vial) Confirm Administered Dose 200 mg IV .STK-MED ONE Stop: 08/06/23 18:44 Last Admin: 08/06/23 18:47 Dose: 100 mg Documented By: ES ECG Additional Comments: Normal sinus rhythm Cannot rule out Anterior infarct , age undetermined ST & T wave abnormality, consider inferior ischemia Abnormal ECG When compared with ECG of 06-AUG-2023 00:40, T wave inversion now evident in Lateral leads Coding Level of Care Code 93381 CRITICAL CARE 1ST 30-74M Diagnoses Shock R57.9 Encephalopathy acute G93.40 Endotracheally intubated Z97.8 Elevated lactic acid level R79.89 DM2 (diabetes mellitus, type 2) E11.9 Abdominal pain R10.9 HLD (hyperlipidemia) E78.5 Somatization disorder F45.0
--- NOTE | 2023-08-06 20:49 | Procedure Note ---
Procedure Note Date of Service August 06, 2023 Note ARTERIAL LINE PROCEDURE NOTE: Procedure: Arterial Line Placement Proceduralist: Milton HERNANDES ([facility] Attending: Dr. King Indication: Monitoring on Pressors Anesthesia: Propofol and fentanyl infusions Emergent Consent was implied as patient is full code and requiring increasing dose of vasopressor agents no immediate family/caretakers are immediately available. Benefits outweigh risks at this time. s A time-out was completed verifying correct patient, procedure, site, positioning was obtained. Allens test was performed to ensure adequate perfusion. Patients RIGHT wrist was prepped and draped in the usual sterile fashion. Ultrasound guidance was used to power hammer operator the vessel and direct visualization to aid needle placement. A 20g Arrow arterial line was introduced into the RIGHT RADIAL artery. Catheter was threaded, and the needle was removed with appropriate blood return. Pressure tubing was attached and a good arterial waveform was observed. The patient tolerated the procedure well without immediate complications noted. The line was sutured in and covered with sterile dressing Blood Loss: Minimal Complications: None Artery Identified: YES Complications: NONE Patient tolerated procedure: WELL Images not saved to medical record secondary to this was emergent/urgent procedure Coding CPT Codes Tubes, Drains, and Vasc Access - Tubes, Drains, and Vasc Access: [id number] Arterial Cath/Cannulation Sampling/Monitoring/Transfusion ([id number]) [facility] [place] Procedure Codes (Charges) Tubes, Drains, and Vasc Access Procedure 1: Tubes, Drains, and Vasc Access: [id number] Arterial Cath/Cannulation Sampling/Monitoring/Transfusion
[2023-08-06] MEDS: PLASMA-LYTE A 500 ML IV ONE ×2 (20:59→22:15)
[2023-08-06] MEDS: VANCOMYCIN HCL 1,500 MG in SODIUM CHLORIDE 0.9% 500 ML IV ONE (21:01)
[2023-08-06] MEDS: PIPERACILLIN/TAZOBACTAM 4.5 GM in DEXTROSE 5% MINI-B 100 ML IV SCH (21:02)
[2023-08-06] MEDS: fentaNYL citrate 2,500 MCG/250 ML BAG IV ONE (21:02)
[2023-08-06 21:11] LABS: iSTAT Art Bld Gas pCO2 Correct 33 mmHg (35-46); iSTAT Art Bld Gas pH Corrected 7.322 (7.35-7.45); iSTAT Arterial Blood Gas HCO3 17 meg/L (19-24); iSTAT Arterial Blood Gas pCO2 35 mmHg (35-46); iSTAT Arterial Blood Gas pO2 89 mmHg (80-95); iSTAT Arterial Blood Gas pO2 C 79; iSTAT Carbon Dioxide 18 mmol/L (24-31); iSTAT FiO2 30 %; iSTAT Hematocrit 30 % (37-47); iSTAT Hemoglobin 10.2 g/dl (12.0-16.0); iSTAT Site Art Line; iSTAT Sodium 138 mmol/L (135-144)
--- NOTE | 2023-08-06 21:30 | Pharmacy Report ---
Pharmacy PK ABX Note - Date of Service August 06, 2023 - Assessment and Plan Assessment 72 year old F receiving IV Vancomycin and Zosyn for treatment of ? bowel perforation. Day # 1 of antimicrobial therapy. Plan Vancomycin * Loading dose: 1500 mg (~23mg/kg) IV x 1 * Maintenance dose: 500 mg IV every 12 hours * Regimen is predicted to achieve target AUC/VIVI of 400-600 mg/L.hr * Trough level ordered for: 08/08/23 @ 0730 Pharmacy will continue to follow and will adjust dose/frequency as necessary. Thank you. Pharmacy has transitioned to AUC monitoring for vancomycin. AUC/VIVI is the preferred PK/PD target and is associated with decreased risk of nephrotoxicity compared to traditional trough targets.
[2023-08-06] MEDS: PLASMA-LYTE A 1,000 ML IV SCH (21:40)
[2023-08-06] MEDS ORDERED: GLUCAGON FOR INJ 1 MG VIAL SQ PRN (21:54)
[2023-08-06] MEDS ORDERED: GLUCOSE 10 TAB/TUBE PO PRN (21:54)
[2023-08-06] MEDS ORDERED: GLUCOSE 40% GEL 15 GM TUBE PO PRN (21:54)
[2023-08-06] MEDS ORDERED: DEXTROSE 50% 50 ML SYRINGE IV PRN (21:54)
[2023-08-06] MEDS ORDERED: CARBOHYDRATES FOR HYPOGLYCEMIA PO PRN (21:54)
[2023-08-06] MEDS: ICU Protocol for HYPERglycemia SCH (22:20)
[2023-08-06] MEDS: HEPARIN SOD 5,000 UNIT/0.5 ML VIAL SQ SCH (22:30)
[2023-08-06] MEDS: VASOPRESSIN 20 UNITS in 0.9 % SODIUM CHLORIDE 100 ML IV SCH (22:31)
[2023-08-06 22:54] LABS: Thyroid Stimulating Hormone 8.667 uIu/ml (0.300-4.500)
[2023-08-06] MEDS: THIAMINE HCL 200 MG in SODIUM CHLORIDE 0.9% 50 ML IV STA (23:01)
[2023-08-06 23:29] LABS: T4 Free Thyroxine 0.79 ng/dl (0.61-1.60)
[2023-08-06] MEDS: ALBUMIN 5% 250 ML IV ONE (23:38)
[2023-08-07] MEDS ORDERED: STAT IV/IM STA ×3 (00:24→15:51)
[2023-08-07 00:36] LABS: iSTAT Art Bld Gas pCO2 Correct 39 mmHg (35-46); iSTAT Art Bld Gas pH Corrected 7.247 (7.35-7.45); iSTAT Arterial Blood Gas HCO3 17 meg/L (19-24); iSTAT Arterial Blood Gas pCO2 39 mmHg (35-46); iSTAT Arterial Blood Gas pH 7.25 (7.35-7.45); iSTAT Arterial Blood Gas pO2 85 mmHg (80-95); iSTAT Arterial Blood Gas pO2 C 84; iSTAT Carbon Dioxide 18 mmol/L (24-31); iSTAT FiO2 30 %; iSTAT Hematocrit 25 % (37-47); iSTAT Hemoglobin 8.5 g/dl (12.0-16.0); iSTAT Potassium 3.7 mmol/L (3.3-5.0); iSTAT Site Art Line; iSTAT Sodium 139 mmol/L (135-144)
[2023-08-07] MEDS: INSULIN ASPART PER UNIT CHARGE SC SCH (00:39)
[2023-08-07] MEDS: SODIUM BICARBONATE 8.4% 150 MEQ in DEXTROSE 5% 1,000 ML IV SCH ×2 (00:47→14:12)
[2023-08-07 00:51] LABS: Amphetamines+Metham, Urine Neg (Neg); Barbiturates, Urine Neg (Neg); Benzodiazepine, Urine Neg (Neg); Cocaine, Urine Neg (Neg); MDMA (Ecstacy), Urine Neg (Neg); Marijuana, Urine Neg (Neg); Methadone, Urine Neg (Neg); Opiate, Urine Neg (Neg); Phencyclidine, Urine Neg (Neg)
[2023-08-07] MEDS: PLASMA-LYTE A 500 ML IV ONE ×2 (03:01→05:55)
[2023-08-07 05:13] LABS: Albumin Level 2.8 gm/dl (3.4-5.0); Bilirubin Direct 0.2 mg/dl (0-0.2); Bilirubin,Total 0.5 mg/dl (0.2-1.0); Calcium 7.1 mg/dl (8.6-10.3); Creatinine Clr Calc Pharmacy 49.8 ml/min; Est GFR (African American) 74.5 ml/min; Est GFR (Non-African American) 64.3 ml/min; Magnesium 2.5 mg/dl (1.7-2.4); Phosphorus 2.6 mg/dl (2.5-4.9); Potassium 3.2 mmol/L (3.5-5.1); Total Protein 4.2 gm/dl (6.0-8.3)
[2023-08-07] MEDS: ACETAMINOPHEN 1,000 MG/100 ML VIAL IV PRN (05:25)
[2023-08-07] MEDS: PLASMA-LYTE A 1,000 ML IV SCH (05:38)
[2023-08-07] MEDS: LEVOTHYROXINE SODIUM 50 MCG TABLET PO SCH (05:39)
[2023-08-07 05:50] LABS: Basophils # (auto) 0.01 K/uL (0.00-0.20); Basophils % (auto) 0.4 %; Hematocrit (blood only) 27.4 % (37.0-47.0); Hemoglobin 8.9 g/dl (12.0-16.0); Lymphocytes # (auto) 0.33 K/uL (1.20-3.40); Lymphocytes % (auto) 13.1 %; Mean Corpuscular Hemoglobin 29.1 pg (25.0-34.0); Mean Corpuscular Hgb Conc 32.5 g/dL (32.0-36.0); Mean Corpuscular Volume 89.5 fL (80.0-100.0); Mean Platelet Volume 10.6 fL (9.4-12.4); Monocytes # (auto) 0.36 K/uL (0.11-0.59); Monocytes % (auto) 14.3 %; Neutrophils # (auto) 1.81 K/uL (1.40-6.50); Neutrophils % (auto) 72.2 %; Platelet Count 153 K/uL (130-400); RDW Coefficient of Variation 16.6 % (11.5-14.5); RDW Standard Deviation 54.3 fL (36.4-46.3); Red Blood Count 3.06 M/uL (4.20-5.40); White Blood Count 2.51 K/ul (4.8-10.8)
[2023-08-07] MEDS: POTASSIUM CHLORIDE / WTR 20 MEQ/100 ML PLCT IV SCH (06:25)
--- NOTE | 2023-08-07 06:54 | XRay Report ---
XR chest 1V portable HISTORY: 72 years-old Female post intub acute respiratory failure COMPARISON: 08/06/2023 at 4:50 PM TECHNIQUE: AP view of the chest FINDINGS: Endotracheal tube overlies the midline, 3.4 cm superior to the vadim. Right IJ central venous cathet er distal tip overlies the right atrium. Distal tip of enteric tube projects over the distal esophagu s. Advancement of 7 to 10 cm recommended. Cardiomediastinal and hilar silhouettes are within normal limits. Mild chronic interstitial coarsenin g with bibasilar atelectasis. No pneumothorax, pleural effusion or overt pulmonary edema. No airspace consolidation typical for pneumonia. Degenerative changes of the shoulders and spine. IMPRESSION: 1. Lines and tubes as above. The enteric tube should be advanced several centimeters. 2. Cardiomegaly with chronic interstitial coarsening. 3. No pneumothorax. ACT 112: Negative or not required by law. The above report was generated using voice recognition software. It may contain grammatical, syntax o r spelling errors. Electronically signed by: Live Mancera M.D. 08/07/2023 6:52 AM
--- NOTE | 2023-08-07 07:06 | XRay Report ---
XR chest 1V portable HISTORY: 72 years-old Female eval CVL placment, ETT and OGT placement- acute respiratory failure COMPARISON: 08/06/2023 at 6:59 PM TECHNIQUE: AP view of the chest FINDINGS: Cardiac silhouette is normal. Endotracheal tube overlies the midline, 3.8 cm superior to the vadim. Right IJ central venous catheter distal tip terminates over the superior cavoatrial junction. Distal tip of enteric tube projects over the gastric body. Cardiomediastinal and hilar silhouettes are within normal limits. Mild chronic interstitial coarsenin g with bibasilar atelectasis. No pneumothorax, pleural effusion or overt pulmonary edema. No airspace consolidation typical for pneumonia. Degenerative changes of the shoulders and spine. IMPRESSION: 1. Lines and tubes as above. 2. Unchanged appearance of the lungs. 3. No pneumothorax. ACT 112: Negative or not required by law. The above report was generated using voice recognition software. It may contain grammatical, syntax o r spelling errors. Electronically signed by: Live Mancera M.D. 08/07/2023 7:05 AM
[2023-08-07] MEDS ORDERED: ICU Protocol for HYPERglycemia SCH (07:30)
--- NOTE | 2023-08-07 07:49 | Electrocardiogram Report ---
Test Reason : Blood Pressure : / mmHG Vent. Rate : 067 BPM Atrial Rate : 067 BPM P-R Int : 112 ms QRS Dur : 080 ms QT Int : 388 ms P-R-T Axes : 072 024 -45 degrees QTc Int : 409 ms Poor data quality, interpretation may be adversely affected Normal sinus rhythm Diffuse Minor Nonspecific T wave abnormality Abnormal ECG When compared with ECG of 06-AUG-2023 00:40, No significant change Confirmed by Dimitris Cage ([id number]) on 08/07/2023 7:48:54 AM Referred By: REFERRED SELF Confirmed By:Dimitris Cage
[2023-08-07] MEDS: VANCOMYCIN HCL 500 MG in NSS 100mL IV SCH (08:27)
[2023-08-07] MEDS: THIAMINE HCL 200 MG in SODIUM CHLORIDE 0.9% 50 ML IV SCH (08:31)
--- NOTE | 2023-08-07 08:51 | Critical Care Progress Note ---
Date of Service August 07, 2023 Assessment & Plan (1) Encephalopathy acute: (2) Shock: (3) Endotracheally intubated: (4) Constipation: (5) DM2 (diabetes mellitus, type 2): Plan Reason for ICU admission: Ms. Deutsch is a 72 y/o female with PMHx of HTN, Hypothyroidism, HLD, brain tumor with unspecified resection or pathology, Schizophrenia, somatization, chronic constipation and chronic UTI that presents with bradycardia, hypotension requiring vasopressors, hypothermia, encephalopathy requiring emergent intubation. Admitted to ICU for continued monitoring. Last 24 hours: Patient without sedatives being administrated, but still in a sedated state. She is still intubated for airway protection given her current sedated state. She has remained hypotensive and is currently on vasopressors (Epinephrine, vasopressin) to maintain MAP > 65 mmHg. Passive leg raise test showing improved response. TTE performed this morning and showing no significant wall motion abnormalities, EF of 50-55% with normal LV systolic function, and no pericardial effusion. Will change vasopressor to Levophed and order plasma-lyte bolus to manage hypotension. Work-up to evaluate cause of possible shock. NEURO: - Not currently under sedation, but patient still in sedated state possibly due to encephalopathy of uncertain etiology. - Withdraws to pain - Occasional myoclonic jerking noted. - Head CT without evidence of intracranial bleed or other process - Tox screen negative - TSH elevated at 8.667 with normal T4 at 0.79 - MRI with and without contrast ordered, but patient not able to answer pre- study questionnaire - EEG to be done this morning CARDIOVASCULAR: - Possible shock state with associated encephalopathy. Etiology uncertain. - Currently on vasopressors to maintain MAP > 65 mmHg; will change to levophed - Ordered plasma-lyte bolus 1L - TTE performed today showing normal LV systolic function, no significant wall motion abnormalities, and EF of 50-55%. No pericardial effusion noted. - Passive leg raise test showing adequate fluid response. - On beta rochelle at home. Baseline HR bradycardic (50s). Medication on hold for now. PULMONARY: - Currently with ETT and mechanically ventilated given poor mentation and inability to maintain her airway - Mechanical ventilation settings: 15/5, FiO2 30%, TV 400cc, O2 saturation 100% - ABG with pH 7.25, pCO2 of 39, pO2 of 89, HCO3 of 17; AG normal (7); consistent with non-AG metabolic acidosis GI: - CT with IV contrast r/o bowel perforation; significant stool burden noted again in KUB today - Saline enemas to relieve constipation, and will add Lactulose/Mineral oil as well. - GI ppx: Pantoprazole 40mg HEMATOLOGY: - Patient with chronic anemia. - HH with Hgb of 8.9 (10.5 yesterday), leukopenia (2.51 versus 9.70 yesterday) - Monitor daily labs - VTE ppx: Heparin ID: - Concern for possible shock with subsequent encephalopathy. Given elevated lactate on arrival, as well as fevers, distributive/septic shock considered possible, although hypotension responsive to passive leg raise may also indicate hypovolemia as a possibility - Blood cultures pending - Urine cultures ordered - abx: Zosyn/ Vancomycin RENAL/ELECTROLYTES: - Creatinine 0.89 - Hypokalemia (3.2) noted; replacement ordered ENDO: - TSH elevated at 8.667 with normal T4 (0.79) - Random cortisol 35.08 LINES/DRAINS/ACCESS: CVL, A-line, Lau, ETT, OGT CODE STATUS: FULL CODE Admission and Anticipated Discharge Date Admission Date: August 06, 2023 Subjective Ms. Deutsch is a 72 y/o female with PMHx of HTN, Hypothyroidism, HLD, brain tumor with unspecified resection or pathology, Schizophrenia, somatization, chronic constipation and chronic UTI. She was brought to the ED yesterday through EMS after being found minimally responsive in her home. Prior to this, she had been experiencing 3 days of some dizziness, weakness, and ambulatory dysfunction for which she came to the ED yesterday morning, where she was discharged with [facility] to manage her constipation after labs and CXR were u nremarkable. Upon arrival, EMS noted her bradycardic requiring atropine administration, as well as hypotensive for which epinepgrine was given. GCS as per EMS note was 3. On arrival she was obtunded and was intubated to protect her airway. Head CT negative for bleed or intracranial process. Abdomino-pelvic CT showing significant stool burden and findings that suggested possible bowel perforation. Repeat CT of her abdomen/pelvis with IV contrast did not show pneumatosis or pneumoperitoneum, and so bowel perforation is unlikely. ED labs also showing minimally elevated lactate, and non-AG metabolic acidosis. CVL was placed in ED as well given increasing need for vasopressors. She was admitted to ICU for continued monitoring. Today she was evaluated at bedside and found to be minimally responsive, intubated (mechanically ventilated), and in no acute distress. She is currently not under sedation. Review of systemic limited due to limited responsiveness. Review of Systems Review of Systems: Unobtainable due to cognitive status Physical Exam Physical Exam: GENERAL: sedated, withdraws to painful stimuli, endotracheal tube, mechanical ventilation, no acute distress HEAD: atraumatic, normocephalic THROAT: normal to visual exam CARDIO: RRR, no r/m/g RESPIRATORY: CTA, symmetric chest rise GI: mildly distended : positive lau draining dark yellow urine SKIN: no rashes Results & Data Results & Data Vital Signs (Past 12 Hours) Vital Signs Temp Pulse Pulse Resp BP BP Pulse Ox 08/07/23 08:30 08/07/23 08:00 08/07/23 08:00 80 116/40 L 08/07/23 08:00 76 08/07/23 07:43 76 16 99 08/07/23 06:00 38.6 C H 76 16 97 08/07/23 06:00 95/57 L 08/07/23 05:45 38.7 C H 76 16 99 08/07/23 05:30 97/49 L 08/07/23 05:30 38.6 C H 77 16 100 08/07/23 05:15 38.6 C H 77 16 95 08/07/23 05:00 38.6 C H 79 16 94 08/07/23 05:00 90/54 L 08/07/23 04:45 38.5 C H 86 17 100 08/07/23 04:30 95/56 L 08/07/23 04:30 38.5 C H 87 16 100 08/07/23 04:15 38.4 C H 85 17 100 08/07/23 04:10 84 17 99 08/07/23 04:00 08/07/23 04:00 87/62 L 08/07/23 04:00 38.3 C H 85 19 99 08/07/23 03:45 38.2 C H 84 18 100 08/07/23 03:30 96/53 L 08/07/23 03:30 38.1 C H 84 17 100 08/07/23 03:15 38.1 C H 83 17 98 08/07/23 03:00 99/54 L 08/07/23 03:00 38.2 C H 88 16 100 08/07/23 02:45 38.1 C H 83 17 100 08/07/23 02:30 93/48 L 08/07/23 02:30 37.8 C H 105 H 17 100 08/07/23 02:15 77 18 95 08/07/23 02:00 94/45 L 08/07/23 02:00 38.2 C H 73 18 95 08/07/23 01:45 38.0 C H 75 19 97 08/07/23 01:31 92/38 L 08/07/23 01:31 37.9 C H 85 18 97 08/07/23 01:30 37.9 C H 86 19 96 08/07/23 01:15 37.7 C H 86 19 97 08/07/23 01:08 87 08/07/23 01:00 37.5 C 86 19 98 08/07/23 01:00 108/56 L 08/07/23 00:45 37.3 C 100 H 19 100 08/07/23 00:30 37.1 C 86 19 100 08/07/23 00:30 102/62 08/07/23 00:15 36.8 C 81 20 99 08/07/23 00:01 36.7 C 77 17 99 08/07/23 00:01 94/37 L 08/07/23 00:00 36.7 C 79 17 99 08/07/23 00:00 08/06/23 23:45 36.5 C 74 16 99 08/06/23 23:30 36.3 C L 75 16 99 08/06/23 23:30 85/38 L 08/06/23 23:15 36.1 C L 70 16 100 08/06/23 23:00 99/46 L 08/06/23 23:00 35.9 C L 72 16 100 08/06/23 22:45 35.7 C L 74 16 100 08/06/23 22:35 35.2 C L 59 L 16 122/39 L 100 08/06/23 22:30 103/42 L 08/06/23 22:30 35.7 C L 83 17 100 08/06/23 22:27 83 17 100 08/06/23 22:15 35.6 C L 70 16 100 08/06/23 22:07 86/42 L 08/06/23 22:07 35.5 C L 70 16 100 08/06/23 22:04 35.5 C L 66 18 99 08/06/23 22:04 86/38 L 08/06/23 22:00 90/50 L 08/06/23 22:00 35.5 C L 75 16 100 08/06/23 21:57 93/43 L 08/06/23 21:57 35.5 C L 81 16 100 08/06/23 21:45 35.4 C L 82 16 100 08/06/23 21:30 35.3 C L 80 17 100 08/06/23 21:30 106/59 L 08/06/23 21:15 35.3 C L 73 17 100 08/06/23 21:12 35.3 C L 76 17 100 08/06/23 21:12 115/50 L 08/06/23 21:01 93/49 L 08/06/23 21:01 35.3 C L 57 L 16 100 08/06/23 21:00 35.3 C L 58 L 18 99 O2 Del Method FiO2 08/07/23 08:30 Mechanical Vent 30 08/07/23 08:00 30 08/07/23 08:00 08/07/23 08:00 08/07/23 07:43 30 08/07/23 06:00 08/07/23 06:00 08/07/23 05:45 08/07/23 05:30 08/07/23 05:30 08/07/23 05:15 08/07/23 05:00 08/07/23 05:00 08/07/23 04:45 08/07/23 04:30 08/07/23 04:30 08/07/23 04:15 08/07/23 04:10 30 08/07/23 04:00 30 08/07/23 04:00 08/07/23 04:00 08/07/23 03:45 08/07/23 03:30 08/07/23 03:30 08/07/23 03:15 08/07/23 03:00 08/07/23 03:00 08/07/23 02:45 08/07/23 02:30 08/07/23 02:30 08/07/23 02:15 08/07/23 02:00 08/07/23 02:00 08/07/23 01:45 08/07/23 01:31 08/07/23 01:31 08/07/23 01:30 08/07/23 01:15 08/07/23 01:08 08/07/23 01:00 08/07/23 01:00 08/07/23 00:45 08/07/23 00:30 08/07/23 00:30 08/07/23 00:15 08/07/23 00:01 08/07/23 00:01 08/07/23 00:00 08/07/23 00:00 30 08/06/23 23:45 08/06/23 23:30 08/06/23 23:30 08/06/23 23:15 08/06/23 23:00 08/06/23 23:00 08/06/23 22:45 08/06/23 22:35 Mechanical Vent 30 08/06/23 22:30 08/06/23 22:30 08/06/23 22:27 30 08/06/23 22:15 08/06/23 22:07 08/06/23 22:07 08/06/23 22:04 08/06/23 22:04 08/06/23 22:00 08/06/23 22:00 08/06/23 21:57 08/06/23 21:57 08/06/23 21:45 08/06/23 21:30 08/06/23 21:30 08/06/23 21:15 08/06/23 21:12 08/06/23 21:12 08/06/23 21:01 08/06/23 21:01 08/06/23 21:00 Coding Diagnoses Encephalopathy acute G93.40 Shock R57.9 Endotracheally intubated Z97.8 Constipation K59.00 DM2 (diabetes mellitus, type 2) E11.9
--- NOTE | 2023-08-07 09:03 | Electrocardiogram Report ---
Test Reason : Blood Pressure : / mmHG Vent. Rate : 092 BPM Atrial Rate : 326 BPM P-R Int : 000 ms QRS Dur : 090 ms QT Int : 396 ms P-R-T Axes : 000 -01 031 degrees QTc Int : 489 ms Sinus rhythm Diffuse Nonspecific T wave abnormality Abnormal ECG When compared with ECG of 07-AUG-2023 04:39, No significant change Confirmed by Dimitris Cage ([id number]) on 08/07/2023 9:03:41 AM Referred By: REFERRED SELF Confirmed By:Dimitris Cage
[2023-08-07] MEDS: PLASMA-LYTE A 1,000 ML IV ONE ×2 (09:19→11:41)
--- NOTE | 2023-08-07 09:21 | Surgery Progress Note ---
<Statement entered by Makenna Blanchard, - 08/07/23 21:05> This case was discussed with the surgical PA, I agreed with this plan. Date of Service August 07, 2023 Assessment & Plan (1) Constipation: Plan: Pt here with AMS/unresponsive initial CT scan concerning for bowel perforation, repeat without evidence. It does show significant stool burden and concern for stercoral colitis pt is currently critically ill in the ICU, ventilated and on pressors. On IV vanc/zosyn no evidence of pneumonia on CXR. UA clean ICU planning on obtaining an EEG and head MRI for further workup Agree with ongoing gentle enema's for stool burden We will follow closely, but no plans for surgical intervention indicated at this point in time Admission and Anticipated Discharge Date Admission Date: August 06, 2023 Subjective unable to obtain subjective history, pt ventilated and minimally responsive Physical Exam Physical Exam: ventilated Gastrointestinal (Abdomen): Inspection/Auscultation: + abdomen distended Percussion/Palpation: abdomen soft Results & Data Vital Signs (Past 12 Hours) Vital Signs Temp Pulse Pulse Resp BP BP Pulse Ox 08/07/23 08:30 08/07/23 08:00 08/07/23 08:00 80 116/40 L 08/07/23 08:00 76 08/07/23 07:43 76 16 99 08/07/23 06:00 38.6 C H 76 16 97 08/07/23 06:00 95/57 L 08/07/23 05:45 38.7 C H 76 16 99 08/07/23 05:30 97/49 L 08/07/23 05:30 38.6 C H 77 16 100 08/07/23 05:15 38.6 C H 77 16 95 08/07/23 05:00 38.6 C H 79 16 94 08/07/23 05:00 90/54 L 08/07/23 04:45 38.5 C H 86 17 100 08/07/23 04:30 95/56 L 08/07/23 04:30 38.5 C H 87 16 100 08/07/23 04:15 38.4 C H 85 17 100 08/07/23 04:10 84 17 99 08/07/23 04:00 08/07/23 04:00 87/62 L 08/07/23 04:00 38.3 C H 85 19 99 08/07/23 03:45 38.2 C H 84 18 100 08/07/23 03:30 96/53 L 08/07/23 03:30 38.1 C H 84 17 100 08/07/23 03:15 38.1 C H 83 17 98 08/07/23 03:00 99/54 L 08/07/23 03:00 38.2 C H 88 16 100 08/07/23 02:45 38.1 C H 83 17 100 08/07/23 02:30 93/48 L 08/07/23 02:30 37.8 C H 105 H 17 100 08/07/23 02:15 77 18 95 08/07/23 02:00 94/45 L 08/07/23 02:00 38.2 C H 73 18 95 08/07/23 01:45 38.0 C H 75 19 97 08/07/23 01:31 92/38 L 08/07/23 01:31 37.9 C H 85 18 97 08/07/23 01:30 37.9 C H 86 19 96 08/07/23 01:15 37.7 C H 86 19 97 08/07/23 01:08 87 08/07/23 01:00 37.5 C 86 19 98 08/07/23 01:00 108/56 L 08/07/23 00:45 37.3 C 100 H 19 100 08/07/23 00:30 37.1 C 86 19 100 08/07/23 00:30 102/62 08/07/23 00:15 36.8 C 81 20 99 08/07/23 00:01 36.7 C 77 17 99 08/07/23 00:01 94/37 L 08/07/23 00:00 36.7 C 79 17 99 08/07/23 00:00 08/06/23 23:45 36.5 C 74 16 99 08/06/23 23:30 36.3 C L 75 16 99 08/06/23 23:30 85/38 L 08/06/23 23:15 36.1 C L 70 16 100 08/06/23 23:00 99/46 L 08/06/23 23:00 35.9 C L 72 16 100 08/06/23 22:45 35.7 C L 74 16 100 08/06/23 22:35 35.2 C L 59 L 16 122/39 L 100 08/06/23 22:30 103/42 L 08/06/23 22:30 35.7 C L 83 17 100 08/06/23 22:27 83 17 100 08/06/23 22:15 35.6 C L 70 16 100 08/06/23 22:07 86/42 L 08/06/23 22:07 35.5 C L 70 16 100 08/06/23 22:04 35.5 C L 66 18 99 08/06/23 22:04 86/38 L 08/06/23 22:00 90/50 L 08/06/23 22:00 35.5 C L 75 16 100 08/06/23 21:57 93/43 L 08/06/23 21:57 35.5 C L 81 16 100 08/06/23 21:45 35.4 C L 82 16 100 08/06/23 21:30 35.3 C L 80 17 100 08/06/23 21:30 106/59 L O2 Del Method FiO2 08/07/23 08:30 Mechanical Vent 30 08/07/23 08:00 30 08/07/23 08:00 08/07/23 08:00 08/07/23 07:43 30 08/07/23 06:00 08/07/23 06:00 08/07/23 05:45 08/07/23 05:30 08/07/23 05:30 08/07/23 05:15 08/07/23 05:00 08/07/23 05:00 08/07/23 04:45 08/07/23 04:30 08/07/23 04:30 08/07/23 04:15 08/07/23 04:10 30 08/07/23 04:00 30 08/07/23 04:00 08/07/23 04:00 08/07/23 03:45 08/07/23 03:30 08/07/23 03:30 08/07/23 03:15 08/07/23 03:00 08/07/23 03:00 08/07/23 02:45 08/07/23 02:30 08/07/23 02:30 08/07/23 02:15 08/07/23 02:00 08/07/23 02:00 08/07/23 01:45 08/07/23 01:31 08/07/23 01:31 08/07/23 01:30 08/07/23 01:15 08/07/23 01:08 08/07/23 01:00 08/07/23 01:00 08/07/23 00:45 08/07/23 00:30 08/07/23 00:30 08/07/23 00:15 08/07/23 00:01 08/07/23 00:01 08/07/23 00:00 08/07/23 00:00 30 08/06/23 23:45 08/06/23 23:30 08/06/23 23:30 08/06/23 23:15 08/06/23 23:00 08/06/23 23:00 08/06/23 22:45 08/06/23 22:35 Mechanical Vent 30 08/06/23 22:30 08/06/23 22:30 08/06/23 22:27 30 08/06/23 22:15 08/06/23 22:07 08/06/23 22:07 08/06/23 22:04 08/06/23 22:04 08/06/23 22:00 08/06/23 22:00 08/06/23 21:57 08/06/23 21:57 08/06/23 21:45 08/06/23 21:30 08/06/23 21:30 PG Care Time/CCT Total # of Minutes Spent Total Time Spent with Patient: Total time spent is greater than 50% in coordination of care (as documented) at patient's floor/unit and/or counseling patient: Coding Level of Care Code 65934 SUB INP/OBS CARE 1/25MIN Diagnoses Constipation K59.00
[2023-08-07] MEDS ORDERED: STAT IV Infusion **Titration per Protocol STA ×2 (09:47→16:36)
[2023-08-07] MEDS: NOREPINEPHRINE/D5W 4 MG/250 ML PLCT IV SCH (10:06)
[2023-08-07 10:07] LABS: iSTAT Art Bld Gas pCO2 Correct 35 mmHg (35-46); iSTAT Art Bld Gas pH Corrected 7.314 (7.35-7.45); iSTAT Arterial Blood Gas HCO3 18 meg/L (19-24); iSTAT Arterial Blood Gas pCO2 34 mmHg (35-46); iSTAT Arterial Blood Gas pH 7.32 (7.35-7.45); iSTAT Arterial Blood Gas pO2 96 mmHg (80-95); iSTAT Arterial Blood Gas pO2 C 100; iSTAT Carbon Dioxide 19 mmol/L (24-31); iSTAT FiO2 30 %; iSTAT Hematocrit 23 % (37-47); iSTAT Hemoglobin 7.8 g/dl (12.0-16.0); iSTAT Potassium 3.5 mmol/L (3.3-5.0); iSTAT Site Art Line; iSTAT Sodium 139 mmol/L (135-144)
--- NOTE | 2023-08-07 10:08 | Critical Care Progress Note ---
Date of Service August 07, 2023 Assessment & Plan (1) Encephalopathy acute: (2) Shock: (3) Endotracheally intubated: (4) Constipation: (5) DM2 (diabetes mellitus, type 2): Plan Reason for ICU admission: Ms. Deutsch is a 72 y/o female with PMHx of HTN, Hypothyroidism, HLD, brain tumor with unspecified resection or pathology, Schizophrenia, somatization, chronic constipation and chronic UTI that presents with bradycardia, hypotension requiring vasopressors, hypothermia, encephalopathy requiring emergent intubation. Admitted to ICU for continued monitoring. Last 24 hours: Patient without sedatives being administrated, but still in a sedated state. She is still intubated for airway protection given her current sedated state. She has remained hypotensive and is currently on vasopressors (Epinephrine, vasopressin) to maintain MAP > 65 mmHg. Passive leg raise test showing improved response. TTE performed this morning and showing no significant wall motion abnormalities, EF of 50-55% with normal LV systolic function, and no pericardial effusion. Will change vasopressor to Levophed and order plasma-lyte bolus to manage hypotension. Work-up to evaluate cause of possible shock. NEURO: - Not currently under sedation, but patient still in sedated state possibly due to encephalopathy of uncertain etiology. - Withdraws to pain - Occasional myoclonic jerking noted. - Head CT without evidence of intracranial bleed or other process - Tox screen negative - TSH elevated at 8.667 with normal T4 at 0.79 - MRI with and without contrast ordered, but patient not able to answer pre- study questionnaire - EEG to be done this morning CARDIOVASCULAR: - Possible shock state with associated encephalopathy. Etiology uncertain. - Currently on vasopressors to maintain MAP > 65 mmHg; will change to levophed - Ordered plasma-lyte bolus 1L - TTE performed today showing normal LV systolic function, no significant wall motion abnormalities, and EF of 50-55%. No pericardial effusion noted. - Passive leg raise test showing adequate fluid response. - On beta rochelle at home. Baseline HR bradycardic (50s). Medication on hold for now. PULMONARY: - Currently with ETT and mechanically ventilated given poor mentation and inability to maintain her airway - Mechanical ventilation settings: 15/5, FiO2 30%, TV 400cc, O2 saturation 100% - ABG with pH 7.25, pCO2 of 39, pO2 of 89, HCO3 of 17; AG normal (7); consistent with non-AG metabolic acidosis GI: - CT with IV contrast r/o bowel perforation; significant stool burden noted again in [facility] today - Saline enemas to relieve constipation, and will add Lactulose/Mineral oil as well. - GI ppx: Pantoprazole 40mg HEMATOLOGY: - Patient with chronic anemia. - HH with Hgb of 8.9 (10.5 yesterday), leukopenia (2.51 versus 9.70 yesterday) - Monitor daily labs - VTE ppx: Heparin ID: - Concern for possible shock with subsequent encephalopathy. Given elevated lactate on arrival, as well as fevers, distributive/septic shock considered possible, although hypotension responsive to passive leg raise may also indicate hypovolemia as a possibility - Blood cultures pending - Urine cultures ordered - abx: Zosyn/ Vancomycin RENAL/ELECTROLYTES: - Creatinine 0.89 - Hypokalemia (3.2) noted; replacement ordered ENDO: - TSH elevated at 8.667 with normal T4 (0.79) - Random cortisol 35.08 LINES/DRAINS/ACCESS: CVL, A-line, Lau, ETT, OGT CODE STATUS: FULL CODE Admission and Anticipated Discharge Date Admission Date: August 06, 2023 Supervising Physician Co-Signing Physician Notes Patient seen and examined with resident physician. Agree with the note aside for any additions/exceptions noted: On physical exam patient is essentially obtunded with minimal response to painful stimuli. She does withdraw minimally to nailbed pressure. She has a mi nimal gag reflex. She does overbreathing the vent and is actually breathing well on spontaneous breathing trial. Ventilation status appears adequate. She does have occasional myoclonic jerking activity. EEG is complete. MRI brain is pending. Will obtain neurology consult. Passive leg raise maneuver completed earlier today demonstrates fluid responsiveness. Will give a 1 L bolus of Plasma-Lyte and reevaluate hemodynamics. Will try to cross titrate epinephrine drip to Levophed drip. Continue vasopressin. Continue broad-spectrum antibiotics empirically. Unfortunately, I think we are dealing with the situation of anoxic brain injury. Will continue to trend the patient's clinical status over the next hours to days with hope for some meaningful neurological recovery. CRITICAL CARE TIME - I have personally spent 57 minutes of critical care time in the direct management of this patient. This is a life/limb threatening event. This includes time spent evaluating patient, direct bedside care, chart review, placing orders, interpretation of diagnostic studies, discussion with consultants, patient, and family members, as well as other required patient management activities. This time is exclusive of all separately billable procedures, and teaching time and separate from and in addition to any other critical care service time. Subjective Ms. Deutsch is a 72 y/o female with PMHx of HTN, Hypothyroidism, HLD, brain tumor with unspecified resection or pathology, Schizophrenia, somatization, chronic constipation and chronic UTI. She was brought to the ED yesterday through EMS after being found minimally responsive in her home. Prior to this, she had been experiencing 3 days of some dizziness, weakness, and ambulatory dy sfunction for which she came to the ED yesterday morning, where she was discharged with [facility] to manage her constipation after labs and CXR were unremarkable. Upon arrival, EMS noted her bradycardic requiring atropine administration, as well as hypotensive for which epinepgrine was given. GCS as per EMS note was 3. On arrival she was obtunded and was intubated to protect her airway. Head CT negative for bleed or intracranial process. Abdomino-pelvic CT showing significant stool burden and findings that suggested possible bowel perforation. Repeat CT of her abdomen/pelvis with IV contrast did not show pneumatosis or pneumoperitoneum, and so bowel perforation is unlikely. ED labs also showing minimally elevated lactate, and non-AG metabolic acidosis. CVL was placed in ED as well given increasing need for vasopressors. She was admitted to ICU for continued monitoring. Today she was evaluated at bedside and found to be minimally responsive, intubated (mechanically ventilated), and in no acute distress. She is currently not under sedation. Review of systemic limited due to sedated state. Review of Systems Review of Systems: Unobtainable due to cognitive status Physical Exam Physical Exam: GENERAL: sedated, withdraws to painful stimuli, endotracheal tube, mechanical ventilation, no acute distress HEAD: atraumatic, normocephalic THROAT: normal to visual exam CARDIO: RRR, no r/m/g RESPIRATORY: CTA, symmetric chest rise GI: mildly distended : positive lau draining dark yellow urine SKIN: no rashes Results & Data Results & Data Vital Signs (Past 12 Hours) Vital Signs Temp Pulse Pulse Resp BP BP Pulse Ox 08/07/23 09:30 100/55 L 08/07/23 09:30 37.9 C H 79 15 100 08/07/23 09:15 38.1 C H 80 16 99 08/07/23 09:00 38.1 C H 78 18 99 08/07/23 09:00 101/55 L 08/07/23 08:45 38.2 C H 78 14 99 08/07/23 08:30 38.2 C H 78 15 99 08/07/23 08:30 103/55 L 08/07/23 08:30 08/07/23 08:15 38.3 C H 78 15 99 08/07/23 08:00 38.3 C H 78 15 98 08/07/23 08:00 99/53 L 08/07/23 08:00 08/07/23 08:00 80 116/40 L 08/07/23 08:00 76 08/07/23 07:45 38.4 C H 78 16 98 08/07/23 07:43 76 16 99 08/07/23 07:30 84/54 L 08/07/23 07:30 38.4 C H 76 16 99 08/07/23 07:15 38.4 C H 76 16 99 08/07/23 07:00 100/50 L 08/07/23 07:00 38.4 C H 76 19 98 08/07/23 06:45 38.5 C H 76 16 100 08/07/23 06:30 38.5 C H 77 18 98 08/07/23 06:30 94/50 L 08/07/23 06:15 38.6 C H 77 16 94 08/07/23 06:00 38.6 C H 76 16 97 08/07/23 06:00 95/57 L 08/07/23 05:45 38.7 C H 76 16 99 08/07/23 05:30 97/49 L 08/07/23 05:30 38.6 C H 77 16 100 08/07/23 05:15 38.6 C H 77 16 95 08/07/23 05:00 38.6 C H 79 16 94 08/07/23 05:00 90/54 L 08/07/23 04:45 38.5 C H 86 17 100 08/07/23 04:30 95/56 L 08/07/23 04:30 38.5 C H 87 16 100 08/07/23 04:15 38.4 C H 85 17 100 08/07/23 04:10 84 17 99 08/07/23 04:00 08/07/23 04:00 87/62 L 08/07/23 04:00 38.3 C H 85 19 99 08/07/23 03:45 38.2 C H 84 18 100 08/07/23 03:30 96/53 L 08/07/23 03:30 38.1 C H 84 17 100 08/07/23 03:15 38.1 C H 83 17 98 08/07/23 03:00 99/54 L 08/07/23 03:00 38.2 C H 88 16 100 08/07/23 02:45 38.1 C H 83 17 100 08/07/23 02:30 93/48 L 08/07/23 02:30 37.8 C H 105 H 17 100 08/07/23 02:15 77 18 95 08/07/23 02:00 94/45 L 08/07/23 02:00 38.2 C H 73 18 95 08/07/23 01:45 38.0 C H 75 19 97 08/07/23 01:31 92/38 L 08/07/23 01:31 37.9 C H 85 18 97 08/07/23 01:30 37.9 C H 86 19 96 08/07/23 01:15 37.7 C H 86 19 97 08/07/23 01:08 87 08/07/23 01:00 37.5 C 86 19 98 08/07/23 01:00 108/56 L 08/07/23 00:45 37.3 C 100 H 19 100 08/07/23 00:30 37.1 C 86 19 100 08/07/23 00:30 102/62 08/07/23 00:15 36.8 C 81 20 99 08/07/23 00:01 36.7 C 77 17 99 08/07/23 00:01 94/37 L 08/07/23 00:00 36.7 C 79 17 99 08/07/23 00:00 08/06/23 23:45 36.5 C 74 16 99 08/06/23 23:30 36.3 C L 75 16 99 08/06/23 23:30 85/38 L 08/06/23 23:15 36.1 C L 70 16 100 08/06/23 23:00 99/46 L 08/06/23 23:00 35.9 C L 72 16 100 08/06/23 22:45 35.7 C L 74 16 100 08/06/23 22:35 35.2 C L 59 L 16 122/39 L 100 08/06/23 22:30 103/42 L 08/06/23 22:30 35.7 C L 83 17 100 08/06/23 22:27 83 17 100 08/06/23 22:15 35.6 C L 70 16 100 O2 Del Method FiO2 08/07/23 09:30 08/07/23 09:30 08/07/23 09:15 08/07/23 09:00 08/07/23 09:00 08/07/23 08:45 08/07/23 08:30 08/07/23 08:30 08/07/23 08:30 Mechanical Vent 08/07/23 08:15 08/07/23 08:00 08/07/23 08:00 08/07/23 08:00 30 08/07/23 08:00 08/07/23 08:00 08/07/23 07:45 08/07/23 07:43 30 08/07/23 07:30 08/07/23 07:30 08/07/23 07:15 08/07/23 07:00 08/07/23 07:00 08/07/23 06:45 08/07/23 06:30 08/07/23 06:30 08/07/23 06:15 Mechanical Vent 08/07/23 06:00 08/07/23 06:00 08/07/23 05:45 08/07/23 05:30 08/07/23 05:30 08/07/23 05:15 08/07/23 05:00 08/07/23 05:00 08/07/23 04:45 08/07/23 04:30 08/07/23 04:30 08/07/23 04:15 08/07/23 04:10 30 08/07/23 04:00 30 08/07/23 04:00 08/07/23 04:00 08/07/23 03:45 08/07/23 03:30 08/07/23 03:30 08/07/23 03:15 08/07/23 03:00 08/07/23 03:00 08/07/23 02:45 08/07/23 02:30 08/07/23 02:30 08/07/23 02:15 08/07/23 02:00 08/07/23 02:00 08/07/23 01:45 08/07/23 01:31 08/07/23 01:31 08/07/23 01:30 08/07/23 01:15 08/07/23 01:08 08/07/23 01:00 08/07/23 01:00 08/07/23 00:45 08/07/23 00:30 08/07/23 00:30 08/07/23 00:15 08/07/23 00:01 08/07/23 00:01 08/07/23 00:00 08/07/23 00:00 08/06/23 23:45 08/06/23 23:30 08/06/23 23:30 08/06/23 23:15 08/06/23 23:00 08/06/23 23:00 08/06/23 22:45 08/06/23 22:35 Mechanical Vent 30 08/06/23 22:30 08/06/23 22:30 08/06/23 22:27 30 08/06/23 22:15
[2023-08-07] MEDS: MINERAL OIL ENEMA 133 ML BTL PR ONE (10:10)
[2023-08-07] MEDS: LACTULOSE SYRUP 20 GM/30 ML UDC PO SCH (10:10)
--- NOTE | 2023-08-07 10:12 | XRay Report ---
[facility] CLINICAL HISTORY: eval for free air COMPARISON STUDY: CT of the abdomen and pelvis August 06, 2023. FINDINGS: Tip of nasogastric tube is within the body of the stomach. Large amount of stool within the colon is again noted. Colonic dilatation is unchanged. There is no lucency under the hemidiaphragms to suggest free air. No radiographic evidence for pneumatosis or portal venous gas. Left basilar opac ity favors atelectasis. IMPRESSION: 1. No evidence for free air. 2. No change in colonic dilatation and a large amount of stool within the colon. ACT 112: Negative or not required by law. Electronically signed by: Lukas Law M.D. 08/07/2023 10:11 AM
[2023-08-07] MEDS: PANTOprazole 40 MG in SYRINGE 0 ML IV SCH (10:19)
[2023-08-07 10:21] LABS: BUN Creatinine Ratio 28.8 (10-20); Calcium 6.5 mg/dl (8.6-10.3); Creatinine Clr Calc Pharmacy 56.2 ml/min; Est GFR (African American) 84.8 ml/min; Est GFR (Non-African American) 73.1 ml/min; Magnesium 2.5 mg/dl (1.7-2.4); Potassium 3.6 mmol/L (3.5-5.1)
--- NOTE | 2023-08-07 10:22 | Electroencephalogram ---
EEG Procedure Note Date of Service August 07, 2023 Start / End Times Start Time: 9:33 AM End Time: 9:53 AM Referring Physician Fernando History Cerebral anoxia, cardiac arrest, evaluate for seizures Home Medication List Medication Instructions Recorded Confirmed Type duloxetine 60 mg capsule,delayed 60 mg PO QAM 04/14/18 08/06/23 History release (Cymbalta) levothyroxine 50 mcg tablet 50 mcg PO DAILYBB 04/14/18 08/06/23 History (Synthroid) loratadine 10 mg tablet (Claritin) 10 mg PO HS PRN Allergy Symptoms 03/25/19 08/06/23 History magnesium oxide 400 mg PO QAM 03/25/19 08/06/23 History atorvastatin 20 mg tablet 20 mg PO HS 11/22/19 08/06/23 History sumatriptan succinate 100 mg tablet 100 mg PO DAILY PRN Headache 11/22/19 08/06/23 History metformin 500 mg tablet 500 mg PO QAM 02/24/21 08/06/23 History riboflavin (vitamin B2) 400 mg 400 mg PO QAM 02/24/21 08/06/23 History tablet fluticasone propionate 50 2 spray intranasal DAILY 07/13/21 08/06/23 History mcg/actuation nasal spray,suspension (Flonase Allergy Relief) aspirin 81 mg chewable tablet 81 mg PO DAILY 05/12/22 08/06/23 History (Aspirin Childrens) docusate sodium 100 mg capsule 100 mg PO BID 07/13/22 08/06/23 History (Colace) gabapentin 100 mg capsule See Rx Instructions .Route .COMPLEX 09/01/22 08/06/23 History cholecalciferol (vitamin D3) 1,250 1,250 mcg PO WK 12/16/22 08/06/23 History mcg (50,000 unit) capsule clozapine 100 mg tablet 300 mg PO HS 12/16/22 08/06/23 History clozapine 25 mg tablet 50 mg PO QAM 12/16/22 08/06/23 History omeprazole 40 mg capsule,delayed 40 mg PO HS 12/16/22 08/06/23 History release lisinopril 20 mg tablet 20 mg PO QAM 01/15/23 08/06/23 History metoprolol succinate 50 mg 50 mg PO QAM 03/08/23 08/06/23 History tablet,extended release 24 hr acetaminophen 500 mg/15 mL oral 100 mg PO Q4H PRN PAIN/FEVER 08/06/23 08/06/23 History liquid amlodipine 5 mg tablet 5 mg PO DAILY 08/06/23 08/06/23 History cyanocobalamin (vitamin B-12) 1,000 mcg PO DAILY 08/06/23 08/06/23 History 1,000 mcg tablet (Vitamin B-12) diclofenac sodium 1 % topical gel 2 g topical TID PRN Pain 08/06/23 08/06/23 History diclofenac sodium 50 mg 50 mg PO BID 08/06/23 08/06/23 History tablet,delayed release iron,carbonyl 65 mg-vitamin C 125 1 tab PO DAILY 08/06/23 08/06/23 History mg tablet,delayed release (Vitron-C) methenamine hippurate 1 gram tablet 1 g PO AMHS 08/06/23 08/06/23 History psyllium 1 tsp PO TID 08/06/23 08/06/23 History Inpatient Medication List Fentanyl Citrate (Fentanyl Bolus From Bag) 50 mcg IV Q60M PRN PRN Reason: Pain or Agitation Stop: 08/20/23 20:20 Last Admin: 08/06/23 20:40 Dose: 75 mcg Documented By: [id number] Co-signed By: UTE Admin: 08/06/23 20:30 Dose: 50 mcg Documented By: [id number] Co-signed By: UTE Heparin Sodium (Porcine) (Heparin Sod 5,000 Unit/0.5 Ml Vial) 5,000 units SQ Q8 [facility] Stop: 09/05/23 21:59 Last Admin: 08/07/23 05:17 Dose: 5,000 units Documented By: Admin: 08/06/23 22:30 Dose: 5,000 units Documented By: [id number] Epinephrine HCl () 4 mg in 254 mls @ 4.915 mls/hr IV .Q24H JAMEL; Protocol Stop: 09/05/23 17:29 Last Titration: 08/07/23 08:19 Dose: 0.3 mcg/kg/min, 73.7 mls/hr Documented By: Titration: 08/07/23 07:38 Dose: 0.27 mcg/kg/min, 66.4 mls/hr Documented By: Admin: 08/07/23 07:32 Dose: 0.25 mcg/kg/min, 61.4 mls/hr Documented By: BEBO Co-signed By: ES Titration: 08/07/23 07:20 Dose: Infused Documented By: BEBO Co-signed By: ES Titration: 08/07/23 07:02 Dose: 0.25 mcg/kg/min, 61.4 mls/hr Documented By: BEBO Co-signed By: [id number] Titration: 08/07/23 05:00 Dose: 0.25 mcg/kg/min, 61.4 mls/hr Documented By: Titration: 08/07/23 04:50 Dose: 0.24 mcg/kg/min, 59 mls/hr Documented By: Admin: 08/07/23 03:02 Dose: 0.23 mcg/kg/min, 56.5 mls/hr Documented By: LLP Co-signed By: [id number] Titration: 08/07/23 03:02 Dose: Infused Documented By: LLP Co-signed By: [id number] Titration: 08/07/23 02:45 Dose: 0.23 mcg/kg/min, 56.5 mls/hr Documented By: Titration: 08/07/23 02:30 Dose: 0.22 mcg/kg/min, 54.1 mls/hr Documented By: Titration: 08/07/23 02:02 Dose: 0.21 mcg/kg/min, 51.6 mls/hr Documented By: Titration: 08/07/23 01:55 Dose: 0.2 mcg/kg/min, 49.1 mls/hr Documented By: Titration: 08/07/23 01:40 Dose: 0.19 mcg/kg/min, 46.7 mls/hr Documented By: Titration: 08/07/23 01:30 Dose: 0.19 mcg/kg/min, 46.7 mls/hr Documented By: Titration: 08/07/23 01:20 Dose: 0.18 mcg/kg/min, 44.2 mls/hr Documented By: Titration: 08/07/23 01:10 Dose: 0.17 mcg/kg/min, 41.8 mls/hr Documented By: Titration: 08/07/23 01:00 Dose: 0.16 mcg/kg/min, 39.3 mls/hr Documented By: Titration: 08/07/23 00:12 Dose: 0.15 mcg/kg/min, 36.9 mls/hr Documented By: [id number] Titration: 08/07/23 00:02 Dose: 0.14 mcg/kg/min, 34.4 mls/hr Documented By: [id number] Titration: 08/06/23 23:45 Dose: 0.12 mcg/kg/min, 29.5 mls/hr Documented By: [id number] Titration: 08/06/23 23:34 Dose: 0.11 mcg/kg/min, 27 mls/hr Documented By: [id number] Titration: 08/06/23 23:20 Dose: 0.1 mcg/kg/min, 24.6 mls/hr Documented By: [id number] Titration: 08/06/23 23:15 Dose: 0.09 mcg/kg/min, 22.1 mls/hr Documented By: [id number] Titration: 08/06/23 22:00 Dose: 0.08 mcg/kg/min, 19.7 mls/hr Documented By: [id number] Titration: 08/06/23 21:55 Dose: 0.07 mcg/kg/min, 17.2 mls/hr Documented By: [id number] Titration: 08/06/23 21:50 Dose: 0.06 mcg/kg/min, 14.7 mls/hr Documented By: [id number] Titration: 08/06/23 21:45 Dose: 0.05 mcg/kg/min, 12.3 mls/hr Documented By: [id number] Titration: 08/06/23 18:31 Dose: 0.04 mcg/kg/min, 9.8 mls/hr Documented By: ES(2) Titration: 08/06/23 18:04 Dose: 0.03 mcg/kg/min, 7.4 mls/hr Documented By: ES(2) Admin: 08/06/23 17:30 Dose: 0.02 mcg/kg/min, 4.9 mls/hr Documented By: ES(2) Co-signed By: POP Propofol (Diprivan) 1,000 mg in 100 mls @ 0 mls/hr IV .Q0M [facility]; Protocol Stop: 08/09/23 18:59 Last Titration: 08/06/23 23:36 Dose: 0 mcg/kg/min, 0 mls/hr Documented By: [id number] Titration: 08/06/23 22:15 Dose: 15 mcg/kg/min, 5.8 mls/hr Documented By: [id number] Titration: 08/06/23 22:00 Dose: 20 mcg/kg/min, 7.7 mls/hr Documented By: [id number] Titration: 08/06/23 21:45 Dose: 25 mcg/kg/min, 9.7 mls/hr Documented By: [id number] Titration: 08/06/23 20:30 Dose: 30 mcg/kg/min, 11.6 mls/hr Documented By: [id number] Titration: 08/06/23 19:21 Dose: 15 mcg/kg/min, 5.8 mls/hr Documented By: Admin: 08/06/23 19:01 Dose: 20 mcg/kg/min, 7.7 mls/hr Documented By: UZAIR(2) Co-signed By: SHYANN Piperacillin Sod/Tazobactam (Sod 4.5 gm/ Dextrose) 100 mls @ 25 mls/hr IV Q8H [facility]; Protocol Stop: 08/16/23 21:59 Last Infusion: 08/07/23 09:18 Dose: Infused Documented By: Admin: 08/07/23 05:16 Dose: 25 mls/hr Documented By: Infusion: 08/07/23 01:51 Dose: Infused Documented By: [id number] Admin: 08/06/23 21:02 Dose: 25 mls/hr Documented By: UTE Fentanyl Citrate (Fentanyl Citrate) 2,500 mcg in 250 mls @ 0 mls/hr IV .Q0M [facility]; Protocol Stop: 08/20/23 20:29 Last Titration: 08/07/23 00:12 Dose: 0 mcg/hr, 0 mls/hr Documented By: [id number] Co-signed By: UTE Titration: 08/06/23 23:37 Dose: 25 mcg/hr, 2.5 mls/hr Documented By: [id number] Co-signed By: [id number] Titration: 08/06/23 20:30 Dose: 50 mcg/hr, 5 mls/hr Documented By: [id number] Co-signed By: UTE Admin: 08/06/23 20:20 Dose: 25 mcg/hr, 2.5 mls/hr Documented By: UTE Co-signed By: [id number] Vancomycin HCl 500 mg/ Sodium (Chloride) 110 mls @ 132 mls/hr IV Q12H [facility] Stop: 08/11/23 07:59 Last Infusion: 08/07/23 09:18 Dose: Infused Documented By: Admin: 08/07/23 08:27 Dose: 132 mls/hr Documented By: BEBO Vasopressin 20 units/ Sodium (Chloride) 101 mls @ 12.12 mls/hr IV .Q8H20M [facility] Stop: 09/05/23 22:14 Last Infusion: 08/07/23 07:02 Dose: 0.04 unit/min, 12.1 mls/hr Documented By: BEBO Co-signed By: [id number] Admin: 08/07/23 05:11 Dose: 0.04 unit/min, 12.1 mls/hr Documented By: UTE Co-signed By: [id number] Infusion: 08/07/23 05:11 Dose: Infused Documented By: UTE Co-signed By: [id number] Admin: 08/06/23 22:31 Dose: 0.04 unit/min, 12.1 mls/hr Documented By: [id number] Co-signed By: LLP Thiamine HCl 200 mg/ Sodium (Chloride) 52 mls @ 210 mls/hr IV QAM [facility] Stop: 09/06/23 08:59 Last Infusion: 08/07/23 09:18 Dose: Infused Documented By: Admin: 08/07/23 08:31 Dose: 210 mls/hr Documented By: BEBO Acetaminophen (Ofirmev) 1,000 mg in 100 mls @ 400 mls/hr IV Q8H PRN PRN Reason: pain or fever >38 Stop: 08/10/23 05:10 Last Infusion: 08/07/23 05:40 Dose: Infused Documented By: [id number] Admin: 08/07/23 05:25 Dose: 400 mls/hr Documented By: [id number] Parenteral Electrolytes (Plasma-Lyte A Ph 7.4) 1,000 mls @ 125 mls/hr IV .Q8H [facility] Stop: 09/06/23 05:29 Last Admin: 08/07/23 05:38 Dose: 125 mls/hr Documented By: [id number] Potassium Chloride (K Bob / Wtr) 20 meq in 100 mls @ 50 mls/hr IV Q2H [facility] Stop: 08/07/23 11:59 Last Admin: 08/07/23 10:11 Dose: 50 mls/hr Documented By: Infusion: 08/07/23 10:11 Dose: Infused Documented By: Admin: 08/07/23 08:19 Dose: 50 mls/hr Documented By: Infusion: 08/07/23 08:19 Dose: Infused Documented By: Admin: 08/07/23 06:25 Dose: 50 mls/hr Documented By: [id number] Parenteral Electrolytes (Plasma-Lyte A Ph 7.4) 1,000 mls @ 999 mls/hr IV .Q1H1M ONE Stop: 08/07/23 10:14 Last Admin: 08/07/23 09:19 Dose: 999 mls/hr Documented By: BEBO Norepinephrine Bitartrate (Levophed/D5w) 4 mg in 250 mls @ 12.563 mls/hr IV .[id number] [facility]; Protocol Stop: 09/06/23 09:59 Last Admin: 08/07/23 10:06 Dose: 0.05 mcg/kg/min, 12.6 mls/hr Documented By: BEBO Co-signed By: ALLIE Insulin Aspart (Insulin Aspart Per Unit Charge) 0 units SC Q6 [facility] Stop: 09/06/23 00:00 Last Admin: 08/07/23 06:00 Dose: 4 units Documented By: [id number] Co-signed By: TONIE Admin: 08/07/23 00:39 Dose: 2 units Documented By: [id number] Co-signed By: TONIE Lactulose (Lactulose Syrup 20 Gm/30 Ml Udc) 20 gm PO BID J[facility]EL Stop: 09/06/23 09:44 Last Admin: 08/07/23 10:10 Dose: 20 gm Documented By: BEBO Levothyroxine Sodium (Levothyroxine Sodium 50 Mcg Tablet) 50 mcg PO DAILYBB [facility] Stop: 09/06/23 06:29 Last Admin: 08/07/23 05:39 Dose: 50 mcg Documented By: [id number] Miscellaneous (Icu Protocol For Hyperglycemia) 1 each N/A ACHS [facility] Stop: 08/08/23 20:59 Last Admin: 08/07/23 07:35 Dose: Not Given Documented By: Admin: 08/06/23 22:20 Dose: Not Given Documented By: [id number] Propofol (Propofol Bolus From Bag) 20 mg IV Q5M PRN PRN Reason: Sedation Stop: 08/09/23 18:53 Last Admin: 08/06/23 20:30 Dose: 20 mg Documented By: [id number] Co-signed By: UTE Discontinued Medications Etomidate (Etomidate 2 Mg/Ml 20 Ml Vial) Confirm Administered Dose 40 mg IV .STK-MED ONE Stop: 08/06/23 18:43 Last Increment: 08/06/23 18:46 Dose: 20 mg Documented By: UZAIR(2) Fentanyl Citrate (Fentanyl Citrate Pf 100 Mcg/2 Ml Vial) 50 mcg IV Q1H [facility] Stop: 08/20/23 18:59 Last Admin: 08/06/23 21:02 Dose: Not Given Documented By: Admin: 08/06/23 21:02 Dose: Not Given Documented By: Admin: 08/06/23 19:04 Dose: 50 mcg Documented By: UZAIR(2) Fentanyl Citrate (Fentanyl Citrate 2,500 Mcg/250 Ml Bag) Confirm Administered Dose 2,500 mcg IV .STK-MED ONE Stop: 08/06/23 20:17 Last Admin: 08/06/23 21:02 Dose: Not Given Documented By: UTE Sodium Chloride (Nss) 1,000 mls @ 999 mls/hr IV .Q1H1M [facility] Stop: 08/06/23 17:45 Last Infusion: 08/06/23 18:14 Dose: Infused Documented By: ES(2) Admin: 08/06/23 16:57 Dose: 999 mls/hr Documented By: ES(2) Piperacillin Sod/Tazobactam Sod (Zosyn) 4.5 gm in 100 mls @ 200 mls/hr IV NOW ONE Stop: 08/06/23 18:10 Last Infusion: 08/06/23 18:14 Dose: Infused Documented By: ES(2) Admin: 08/06/23 17:51 Dose: 200 mls/hr Documented By: ES(2) Sodium Chloride (Nss) 1,000 mls @ 999 mls/hr IV .Q1H1M ONE Stop: 08/06/23 18:58 Last Infusion: 08/06/23 18:14 Dose: Infused Documented By: ES(2) Admin: 08/06/23 17:59 Dose: 999 mls/hr Documented By: UZAIR(2) Vancomycin HCl 1,500 mg/ (Sodium Chloride) 530 mls @ 200 mls/hr IV NOW ONE Stop: 08/06/23 22:59 Last Infusion: 08/07/23 00:06 Dose: Infused Documented By: [id number] Admin: 08/06/23 21:01 Dose: 200 mls/hr Documented By: LLP Parenteral Electrolytes (Plasma-Lyte A Ph 7.4) 500 mls @ 999 mls/hr IV .Q31M ONE Stop: 08/06/23 21:21 Last Infusion: 08/06/23 21:38 Dose: Infused Documented By: [id number] Admin: 08/06/23 20:59 Dose: 999 mls/hr Documented By: LLP Parenteral Electrolytes (Plasma-Lyte A Ph 7.4) 1,000 mls @ 125 mls/hr IV .Q8H [facility] Stop: 09/05/23 20:59 Last Infusion: 08/07/23 00:49 Dose: Infused Documented By: [id number] Infusion: 08/06/23 23:13 Dose: 125 mls/hr Documented By: [id number] Admin: 08/06/23 21:40 Dose: 115 mls/hr Documented By: [id number] Parenteral Electrolytes (Plasma-Lyte A Ph 7.4) 500 mls @ 999 mls/hr IV .Q31M ONE Stop: 08/06/23 22:43 Last Infusion: 08/06/23 22:48 Dose: Infused Documented By: [id number] Admin: 08/06/23 22:15 Dose: 999 mls/hr Documented By: [id number] Thiamine HCl 200 mg/ Sodium (Chloride) 52 mls @ 210 mls/hr IV NOW STA Stop: 08/06/23 23:00 Last Infusion: 08/06/23 23:19 Dose: Infused Documented By: [id number] Admin: 08/06/23 23:01 Dose: 210 mls/hr Documented By: [id number] Albumin Human (Albumin 5%) 250 mls @ 500 mls/hr IV ONE ONE Stop: 08/06/23 23:58 Last Infusion: 08/07/23 00:12 Dose: Infused Documented By: [id number] Admin: 08/06/23 23:38 Dose: 500 mls/hr Documented By: [id number] Sodium Bicarbonate 150 meq/ (Dextrose) 1,150 mls @ 125 mls/hr IV .Q9H12M [facility] Stop: 09/06/23 00:29 Last Infusion: 08/07/23 05:23 Dose: Infused Documented By: [id number] Admin: 08/07/23 00:47 Dose: 125 mls/hr Documented By: [id number] Parenteral Electrolytes (Plasma-Lyte A Ph 7.4) 500 mls @ 999 mls/hr IV .Q31M ONE Stop: 08/07/23 03:21 Last Infusion: 08/07/23 03:32 Dose: Infused Documented By: [id number] Admin: 08/07/23 03:01 Dose: 999 mls/hr Documented By: LLP Parenteral Electrolytes (Plasma-Lyte A Ph 7.4) 500 mls @ 999 mls/hr IV .Q31M ONE Stop: 08/07/23 06:18 Last Infusion: 08/07/23 06:24 Dose: Infused Documented By: [id number] Admin: 08/07/23 05:55 Dose: 999 mls/hr Documented By: [id number] Ioversol (Optiray 320 500ml) 84 ml IV ONCE ONE Stop: 08/06/23 19:54 Last Admin: 08/06/23 19:54 Dose: 84 ml Documented By: PLW Mineral Oil (Mineral Oil Enema 133 Ml Btl) 133 ml VT ONCE ONE Stop: 08/07/23 09:45 Last Admin: 08/07/23 10:10 Dose: 133 ml Documented By: BEBO Ondansetron HCl (Ondansetron Inj 2 Mg/Ml 2 Ml Vial) Confirm Administered Dose 4 mg .ROUTE .STK-MED ONE Stop: 08/06/23 16:50 Last Admin: 08/06/23 16:57 Dose: 4 mg Documented By: ES(2) Propofol (Propofol Iv Emulsion 10 Mg/Ml 100 Ml Vial) Confirm Administered Dose 1,000 mg IV .STK-MED ONE Stop: 08/06/23 18:55 Last Admin: 08/06/23 19:08 Dose: Not Given Documented By: ES(2) Succinylcholine Chloride (Succinylcholine Chloride 20 Mg/Ml 10 Ml Vial) Confirm Administered Dose 200 mg IV .STK-MED ONE Stop: 08/06/23 18:44 Last Admin: 08/06/23 18:47 Dose: 100 mg Documented By: ES(2) Description This is a 21 electrode EEG with a single channel dedicated to limited EKG. The electrodes were placed in accordance with the International 10-20 system. This EEG was completed with the patient on the mechanical ventilator, in the ICU, sedatives held The predominant rhythm consists of generalized low amplitude 3-1/2 Hz theta slowing and intermittent frontal delta activity. There is no focal or lateralized slowing. No epileptiform abnormalities observed. Photic stimulation was unremarkable. Hyperventilation not performed. Interpretation Abnormal awake/drowsy EEG with evidence of a diffuse nonspecific encephalopathy. No evidence of seizure activity. No epileptiform abnormalities. [facility] EEG Procedure Codes Indication for Procedure (1) Encephalopathy acute: (2) Seizure-like activity: Neurology Neurology: 54826 EEG include record awake & drowsy
--- NOTE | 2023-08-07 10:25 | Billing Data ---
Date of Service August 07, 2023 Coding Level of Care Code 99146 CRITICAL CARE 1ST 30-74M Time Spent (min) 57
--- NOTE | 2023-08-07 12:01 | Pharmacy Report ---
Pharmacy PK ABX Note - Date of Service August 07, 2023 - Assessment and Plan Assessment * 72 year old F receiving IV Vancomycin and Zosyn for empiric treatment of septic shock, possible IAI vs UTI. Patient is currently maintained on 3 pressors (norepi, vaso, epi) * Day # 2 of antimicrobial therapy. * Blood and urine cx's pending. Nasal swab negative for MRSA. * Abd/Pelvis CT: read as "prominent stool burden" and "developing stercoral colitis suggested. No pneumatosis or pneumoperitoneum" Plan Vancomycin * Loading dose: 1500 mg (~23mg/kg) IV x 1 * Maintenance dose: increase to 750 mg IV every 12 hours * Regimen is predicted to achieve target AUC/VIVI of 400-600 mg/L.hr * Trough level ordered for: 08/08/23 AM Pharmacy will continue to follow and will adjust dose/frequency as necessary. Thank you. Pharmacy has transitioned to AUC monitoring for vancomycin. AUC/VIVI is the preferred PK/PD target and is associated with decreased risk of nephrotoxicity compared to traditional trough targets.
[2023-08-07] MEDS: DEXTROSE 5% IV SCH (12:56)
[2023-08-07] MEDS: NOREPINEPHRINE BIT IV SCH (12:56)
[2023-08-07 13:26] LABS: BUN Creatinine Ratio 28.4 (10-20); Calcium 6.5 mg/dl (8.6-10.3); Creatinine Clr Calc Pharmacy 60.8 ml/min; Est GFR (African American) 93.2 ml/min; Est GFR (Non-African American) 80.4 ml/min; Potassium 4.2 mmol/L (3.5-5.1)
[2023-08-07 14:07] LABS: Hematocrit (blood only) 28.8 % (37.0-47.0); Hemoglobin 9.2 g/dl (12.0-16.0); Mean Corpuscular Hemoglobin 28.7 pg (25.0-34.0); Mean Corpuscular Hgb Conc 31.9 g/dL (32.0-36.0); Mean Corpuscular Volume 89.7 fL (80.0-100.0); Mean Platelet Volume 10.4 fL (9.4-12.4); Platelet Count 201 K/uL (130-400); RDW Coefficient of Variation 16.4 % (11.5-14.5); RDW Standard Deviation 53.7 fL (36.4-46.3); Red Blood Count 3.21 M/uL (4.20-5.40); White Blood Count 6.72 K/ul (4.8-10.8)
[2023-08-07 14:11] LABS: A calco-baum cmplx NotReported Not Detected (NotDetected); Bact fragilis Not Reported Not Detected (NotDetected); Blood Culture Id Panel See PCR Comment (NotDetected); C auris Not Reported Not Detected (NotDetected); Calbicans Not Reported Not Detected (NotDetected); Candida glabrata Not Reported Not Detected (NotDetected); Candida krusei Not Reported Not Detected (NotDetected); Cneoformans/gatti Not Reported Not Detected (NotDetected); Cparapsilosis Not Reported Not Detected (NotDetected); E cloacae compx Not Reported Not Detected (NotDetected); Efaecalis Not Reported Not Detected (NotDetected); Efaecium Not Reported Not Detected (NotDetected); Enterobacterales Not Reported Not Detected (NotDetected); Escherichia coli Not Reported Not Detected (NotDetected); H influenzae Not Reported Not Detected (NotDetected); K aerogenes Not Reported Not Detected (NotDetected); Koxytoca Not Reported Not Detected (NotDetected); Kpneumoniae grp Not Reported Not Detected (NotDetected); Lmonocyt Not Reported Not Detected (NotDetected); N meningitidis Not Reported Not Detected (NotDetected); P aeruginosa Not Reported Not Detected (NotDetected); Proteus spp Not Reported Not Detected (NotDetected); Salmonella spp Not Reported Not Detected (NotDetected); Smarcescens Not Reported Not Detected (NotDetected); Staph lugdunensis Not Reported Not Detected (NotDetected); Staph spp. Not Reported Not Detected (NotDetected); Staphaureus Not Reported Not Detected (NotDetected); Staphepi Not Reported Not Detected (NotDetected); Stenmaltophilia Not Reported Not Detected (NotDetected); Strep agal(GrpB) Not Reported Not Detected (NotDetected); Strep pneum Not Reported Not Detected (NotDetected); Strep pyog (GrpA) Not Reported Not Detected (NotDetected); Streptococcus spp DETECTED (NotDetected)
[2023-08-07 14:13] LABS: iSTAT Art Bld Gas pCO2 Correct 33 mmHg (35-46); iSTAT Art Bld Gas pH Corrected 7.329 (7.35-7.45); iSTAT Arterial Blood Gas HCO3 17 meg/L (19-24); iSTAT Arterial Blood Gas pCO2 32 mmHg (35-46); iSTAT Arterial Blood Gas pH 7.34 (7.35-7.45); iSTAT Arterial Blood Gas pO2 101 mmHg (80-95); iSTAT Arterial Blood Gas pO2 C 106; iSTAT Carbon Dioxide 18 mmol/L (24-31); iSTAT FiO2 30 %; iSTAT Hematocrit 26 % (37-47); iSTAT Hemoglobin 8.8 g/dl (12.0-16.0); iSTAT Potassium 4.1 mmol/L (3.3-5.0); iSTAT Site Art Line; iSTAT Sodium 140 mmol/L (135-144)
--- NOTE | 2023-08-07 14:17 | Hospitalist Progress Note ---
Date of Service August 07, 2023 Assessment & Plan (1) Shock: (2) Elevated lactic acid level: (3) Bowel perforation: Plan Ms. Deutsch is a 72 year old woman with a past medical history HTN, HLD, DMII, hypothyroidism, Hx of brain tumor s/p partial resection years ago (unknown pathology), somatization disorder, schizophrenia, prior migraine, chronic anemia, recurrent UTIs, urinary incontinence and urinary bladder diverticulum presented after being found down and minimally responsive at home. Patient admitted to ICU for management and evaluation of shock with unclear etiology at this time, however, initial imaging concerning for bowel perforation. Patient was mechanically ventilated and admitted to ICU. # Septic shock #Possible secondary to bowel perforation #Large volume stool burden -Patient found unresponsive, required atropine/Epi iso hypotension bradycardia -CT imaging with large volume stool burden, question of perforation -Continue pressor support per [employer] recommendations -Continue enema -Analgesia/Sedation per ICU protocol -Vanc/Zosyn in interim -Follow-up on infectious workup #Acute respiratory failure requiring mechanical ventilation -Secondary to severe sepsis -Vent management per ICU #Cognitive Impairment #Schizophrenia Recommended 24 hour support previously, relies on assistance of two care givers On clozapine, cymbalta, gabapentin, resume when appropriate High risk for delirium, ICU delirium precautions MRI brain as per ICU. #Hypothyroidism Resume Levothyroxine when able #Hypertension Hold home antihypertensive while patient is on vasopressors. #HLD Hold statin #DMTII Hold home metformin ICU hyperglycemia protocol #Recurrent UTI Hold home methenamine #Recurrent migraines Hold magnesium, riboflavin #Chronic normocytic anemia -Hgb baseline ~10, stable Montior CBC Analgesia: fentanyl Sedation: Propofol Pressor: Epi Ulcer PPX pantoprazole IV DVT heparin sq HOB 30 Hou placed 08/06 Full Code Time spent evaluating patient, direct bedside care, chart review, placing orders, interpretation of diagnostic studies as well as other required patient management activities is 50 minutes Please note the above document was generated using voice recognition software. It may contain grammatical, syntax or spelling errors. Any formal questions or concerns about the content, text or information contained within the body of this dictation should be directly addressed to the provider for clarification Admission and Anticipated Discharge Date Admission Date: August 06, 2023 Subjective Patient seen at bedside. She is intubated and sedated. Minimal vent setting. Review of Systems Review of Systems: All systems reviewed & are unremarkable except as noted in Subjective Physical Exam Physical Exam: Constitutional: Mechanical ventilated and sedated. Respiratory: Bilateral mechanical breath sound. Cardiovascular: RRR, no murmur, no edema Vessels: no JVD or carotid bruit Chest: normal inspection of chest Abdomen: Slightly distended. Musculoskeletal: no cyanosis or clubbing, extremities motor strength 5/5 Neurologic: PERRL, sedated Results & Data Results & Data Vital Signs (Past 12 Hours) Vital Signs Temp Pulse Resp BP Pulse Ox O2 Del Method FiO2 08/07/23 12:30 37.1 C 73 18 100 08/07/23 12:15 37.0 C 72 18 100 08/07/23 12:10 37.0 C 73 19 97 08/07/23 12:05 37.0 C 74 18 100 08/07/23 12:00 107/60 08/07/23 12:00 37.0 C 74 18 100 08/07/23 12:00 30 08/07/23 11:45 37.1 C 71 16 100 08/07/23 11:31 37.1 C 15 100 08/07/23 11:31 105/54 L 08/07/23 11:30 37.1 C 93 H 18 100 08/07/23 11:15 37.4 C 73 16 100 08/07/23 11:00 37.4 C 72 15 100 08/07/23 11:00 85/53 L 08/07/23 10:45 37.3 C 76 14 100 08/07/23 10:30 37.3 C 77 14 100 08/07/23 10:30 101/54 L 08/07/23 10:25 37.4 C 78 14 100 08/07/23 10:20 37.4 C 79 15 99 08/07/23 10:15 79 16 100 30 08/07/23 10:15 37.5 C 77 14 100 08/07/23 10:10 37.5 C 79 14 100 08/07/23 10:05 37.5 C 79 16 100 08/07/23 10:00 109/60 08/07/23 10:00 37.6 C H 79 14 98 08/07/23 09:55 37.7 C H 79 14 98 08/07/23 09:50 37.7 C H 79 14 100 08/07/23 09:45 37.8 C H 79 15 100 08/07/23 09:40 37.8 C H 79 15 99 08/07/23 09:35 37.9 C H 79 14 100 08/07/23 09:30 100/55 L 08/07/23 09:30 37.9 C H 79 15 100 08/07/23 09:15 38.1 C H 80 16 99 08/07/23 09:00 38.1 C H 78 18 99 08/07/23 09:00 101/55 L 08/07/23 08:45 38.2 C H 78 14 99 08/07/23 08:30 38.2 C H 78 15 99 08/07/23 08:30 103/55 L 08/07/23 08:30 Mechanical Vent 30 08/07/23 08:15 38.3 C H 78 15 99 08/07/23 08:00 38.3 C H 78 15 98 08/07/23 08:00 99/53 L 08/07/23 08:00 30 08/07/23 08:00 80 116/40 L 08/07/23 08:00 76 08/07/23 07:45 38.4 C H 78 16 98 08/07/23 07:43 76 16 99 30 08/07/23 07:30 84/54 L 08/07/23 07:30 38.4 C H 76 16 99 08/07/23 07:15 38.4 C H 76 16 99 08/07/23 07:00 100/50 L 08/07/23 07:00 38.4 C H 76 19 98 08/07/23 06:45 38.5 C H 76 16 100 08/07/23 06:30 38.5 C H 77 18 98 08/07/23 06:30 94/50 L 08/07/23 06:15 38.6 C H 77 16 94 Mechanical Vent 30 08/07/23 06:00 38.6 C H 76 16 97 08/07/23 06:00 95/57 L 08/07/23 05:45 38.7 C H 76 16 99 08/07/23 05:30 97/49 L 08/07/23 05:30 38.6 C H 77 16 100 08/07/23 05:15 38.6 C H 77 16 95 08/07/23 05:00 38.6 C H 79 16 94 08/07/23 05:00 90/54 L 08/07/23 04:45 38.5 C H 86 17 100 08/07/23 04:30 95/56 L 08/07/23 04:30 38.5 C H 87 16 100 08/07/23 04:15 38.4 C H 85 17 100 08/07/23 04:10 84 17 99 30 08/07/23 04:00 30 08/07/23 04:00 87/62 L 08/07/23 04:00 38.3 C H 85 19 99 08/07/23 03:45 38.2 C H 84 18 100 08/07/23 03:30 96/53 L 08/07/23 03:30 38.1 C H 84 17 100 08/07/23 03:15 38.1 C H 83 17 98 08/07/23 03:00 99/54 L 08/07/23 03:00 38.2 C H 88 16 100 08/07/23 02:45 38.1 C H 83 17 100 08/07/23 02:30 93/48 L 08/07/23 02:30 37.8 C H 105 H 17 100 08/07/23 02:15 77 18 95
[2023-08-07 14:22] LABS: Strep spp Not Reported DETECTED (NotDetected)
[2023-08-07] MEDS: CALCIUM GLUCONATE 10% 1,000 MG in SODIUM CHLOR 0.9% MINI-B 50 ML IV SCH (16:34)
[2023-08-07] MEDS: dexMEDEtomidine 200 MCG/50 ML BAG IV SCH (17:15)
[2023-08-07] MEDS: VANCOMYCIN HCL 750 MG in SODIUM CHLORIDE 0.9% 250 ML IV SCH (17:46)
[2023-08-07] MEDS: bisacodyL 10 MG SUPP PR STA (17:46)
[2023-08-07] MEDS: fentaNYL citrate PF 100 MCG/2 ML VIAL IV STA (21:50)
[2023-08-08] MEDS: VANCOMYCIN CONSULT ACTIVE PRN (03:57)
[2023-08-08] MEDS: VANCOMYCIN LEVEL ONE (03:57)
[2023-08-08 04:36] LABS: Albumin Level 2.9 gm/dl (3.4-5.0); Bilirubin Direct 0.3 mg/dl (0-0.2); Bilirubin,Total 0.5 mg/dl (0.2-1.0); Calcium 7.3 mg/dl (8.6-10.3); Est GFR (African American) 91.7 ml/min; Est GFR (Non-African American) 79.1 ml/min; Magnesium 2.5 mg/dl (1.7-2.4); Phosphorus 3.7 mg/dl (2.5-4.9); Total Protein 4.5 gm/dl (6.0-8.3)
[2023-08-08 04:42] LABS: Basophils # (auto) 0.02 K/uL (0.00-0.20); Basophils % (auto) 0.4 %; Eosinophils # (auto) 0.01 K/uL (0.00-0.50); Eosinophils % (auto) 0.2 %; Hematocrit (blood only) 26.1 % (37.0-47.0); Hemoglobin 8.8 g/dl (12.0-16.0); Immature Granulocytes # (auto) 0.15 K/uL (0.01-0.20); Immature Granulocytes % (auto) 3.3 %; Lymphocytes # (auto) 0.79 K/uL (1.20-3.40); Lymphocytes % (auto) 17.2 %; Mean Corpuscular Hemoglobin 29.2 pg (25.0-34.0); Mean Corpuscular Hgb Conc 33.7 g/dL (32.0-36.0); Mean Corpuscular Volume 86.7 fL (80.0-100.0); Mean Platelet Volume 10.6 fL (9.4-12.4); Monocytes # (auto) 0.63 K/uL (0.11-0.59); Monocytes % (auto) 13.7 %; Neutrophils # (auto) 2.99 K/uL (1.40-6.50); Neutrophils % (auto) 65.2 %; Ovalocytes 1+; Platelet Count 158 K/uL (130-400); RDW Coefficient of Variation 16.7 % (11.5-14.5); RDW Standard Deviation 53.1 fL (36.4-46.3); Red Blood Count 3.01 M/uL (4.20-5.40); White Blood Count 4.59 K/ul (4.8-10.8)
[2023-08-08] MEDS: LACTATED RINGER'S 1,000 ML IV SCH (06:51)
[2023-08-08] MEDS: POTASSIUM CHLORIDE / WTR 20 MEQ/100 ML PLCT IV SCH (07:24)
[2023-08-08] MEDS ORDERED: VANCOMYCIN LEVEL ONE (07:30)
--- NOTE | 2023-08-08 07:31 | Critical Care Progress Note ---
Date of Service August 08, 2023 Assessment & Plan (1) Encephalopathy acute: (2) Shock: (3) Endotracheally intubated: (4) Constipation: (5) DM2 (diabetes mellitus, type 2): Plan Reason for ICU admission: Ms. Deutsch is a 72 y/o female with PMHx of HTN, Hypothyroidism, HLD, brain tumor with unspecified resection or pathology, Schizophrenia, somatization, chronic constipation and chronic UTI that presents with hypotension requiring vasopressors, and sedation due to encephalopathy requiring intubation. Admitted to ICU for continued monitoring. Last 24 hours: Patient developed restless movements last night, which were managed with Fentanyl and Precedex. Since then, her movements have decreased, and so Fentanyl was stopped but Precedex is still on. Blood pressures have improved on 2 vasopressors (Levophed at 0.06 mcg/kg/min and Vasopressin at 0.04 unit/min) with MAP staying around 65 mmHg. Plasma-lyte was stopped after blood pressures improved and lactated ringers was initiated. Bicarb also stopped. Attempted to wean off vasopressin, but patient became hypotensive again and it was resumed. No bowel movements yet despite the addition of lactulose and mineral oil. Urine output through lau adequate. Current ventilator settings are low and she appears to be breathing over the ventilator. Overall, patients seems to be improved compared to yesterday. NEURO: - Patient still in sedated state possibly due to sedatives given last night combined with unspecific encephalopathy. She had a period of lucency last night where she was able to answer questions. - MRI with and without contrast ordered (pending) - EEG done yesterday which showed changes consistent with encephalopathy but no seizure activity. - Will continue to monitor neurologic status progression after sedation is stopped. - Neurology consult placed yesterday. Appreciate their input. CARDIOVASCULAR: - Possible shock state with associated encephalopathy. Etiology uncertain but suspect septic source vs hypovolemic source. - Currently on vasopressors to maintain MAP > 65 mmHg (levophed and vasopressin) - S/p plasma-lyte and bicarb. Currently with LR. - Patient with positive fluid balance and showing swelling in her bilateral LE. Will hold on diuresis until tomorrow. PULMONARY: - Currently with ETT and mechanically ventilated to maintain airway while in sedated state after IV fentanyl, but vent settings are low and patient seems to be breathing over the vent - Consider extubating after patient is more awake GI: - CT with IV contrast r/o bowel perforation; significant stool burden still present (has not had a bowel movement yet) - Saline enemas to relieve constipation, as well as Lactulose/Mineral oil as well. - GI ppx: Pantoprazole 40mg HEMATOLOGY: - Patient with chronic anemia. - HH with Hgb of 8.8 - Monitor daily labs - VTE ppx: Heparin ID: - Concern for possible shock with subsequent encephalopathy. Given elevated lactate on arrival, as well as fevers, distributive/septic shock considered possible - Blood cultures showing strep spp. in 1 bottle. Could be contaminant, but due to her clinical picture will consider true result and continue antibiotics. - Urine cultures ordered and pending - abx: Zosyn/ Vancomycin, which will be continued for now RENAL/ELECTROLYTES: - Creatinine 0.75 - Hypokalemia (3.0) noted; replacement ordered - Hypocalcemia (7.3); replacement ordered - Repeat BMP in the afternoon to see if electrolytes were corrected. ENDO: - TSH elevated at 8.667 with normal T4 (0.79) - Random cortisol 35.08 LINES/DRAINS/ACCESS: CVL, A-line, Lau, ETT, OGT CODE STATUS: FULL CODE Admission and Anticipated Discharge Date Admission Date: August 06, 2023 Supervising Physician Co-Signing Physician Notes Patient seen and examined with the resident physician. Agree with the assessment and plan assigned for any additions/exceptions noted: Patient's hemodynamic parameters are improving, but she still remains on vasopressin and low-dose Levophed. Sedation has been weaned off and she is following commands. She did well on spontaneous breathing trial and was successfully extubated. Her mental status is improved significantly compared to yesterday. She is still lethargic, but following simple commands and able to protect her airway. She still has significant stool burden and has had minimal output as far as stool was concerned. Surgery is on board and appreciate the recommendations. Continue with suppository and lactulose. CRITICAL CARE TIME - I have personally spent 40 minutes of critical care time in the direct management of this patient. This is a life/limb threatening event. This includes time spent evaluating patient, direct bedside care, chart review, placing orders, interpretation of diagnostic studies, discussion with consultants, patient, and family members, as well as other required patient management activities. This time is exclusive of all separately billable procedures, and teaching time and separate from and in addition to any other critical care service time. Subjective Ms. Deutsch is a 72 y/o female with PMHx of HTN, Hypothyroidism, HLD, brain tumor with unspecified resection or pathology, Schizophrenia, somatization, chronic constipation and chronic UTI. Who was admitted to ICU for continued monitoring due to sedated state requiring ETT placement for protection of airway and hypotension requiring 2 vasopressors (levophed and vasopressin). Today she was evaluated at bedside and found to be sedated, intubated, and in no acute distress. Review of systemic limited due to sedated state. Review of Systems Review of Systems: Unobtainable due to cognitive status Physical Exam Physical Exam: GENERAL: sedated, withdraws to painful stimuli, endotracheal tube/mechanical ventilation, no acute distress HEAD: atraumatic, normocephalic THROAT: normal to visual exam CARDIO: RRR, no r/m/g RESPIRATORY: CTA, symmetric chest rise GI: distended : positive lau EXTREMITIES: bilateral LE swelling SKIN: no rashes Results & Data Results & Data Vital Signs (Past 12 Hours) Vital Signs Temp Pulse Resp BP Pulse Ox O2 Del Method FiO2 08/08/23 06:00 37.3 C 69 16 120/66 96 Mechanical Vent 08/08/23 05:00 37.3 C 68 16 121/65 98 Mechanical Vent 08/08/23 04:00 37.5 C 68 16 120/64 97 08/08/23 04:00 30 08/08/23 04:00 121/51 L 08/08/23 03:00 37.9 C H 68 16 110/65 97 08/08/23 02:23 68 16 97 30 08/08/23 02:00 38.2 C H 68 16 99/57 L 97 Mechanical Vent 08/08/23 01:00 38.6 C H 69 16 114/63 97 Mechanical Vent 08/08/23 00:00 39.0 C H 71 19 125/77 98 Mechanical Vent 08/08/23 00:00 30 08/08/23 00:00 117/50 L 08/07/23 23:56 72 08/07/23 23:00 38.9 C H 72 18 121/58 L 97 Mechanical Vent 08/07/23 22:16 73 18 93 30 08/07/23 22:00 38.8 C H 73 18 112/80 100 Mechanical Vent 08/07/23 21:30 Mechanical Vent 30 08/07/23 21:02 38.8 C H 73 22 100/75 100 Mechanical Vent 08/07/23 20:00 38.9 C H 71 17 112/55 L 100 Mechanical Vent 08/07/23 20:00 30 08/07/23 20:00 120/49 L Resident Activity Tracking Resident Involvement: Resident Care Provided Care Provided: Adult [facility]
[2023-08-08] MEDS ORDERED: STAT IV/IM STA (08:52)
[2023-08-08] MEDS: CALCIUM GLUCONATE 10% 1,000 MG in SODIUM CHLOR 0.9% MINI-B 50 ML IV SCH (09:39)
--- NOTE | 2023-08-08 10:33 | Pharmacy Report ---
Pharmacy PK ABX Note - Date of Service August 08, 2023 - Assessment and Plan Assessment * 72 year old F receiving IV Vancomycin and Zosyn for empiric treatment of septic shock, possible IAI, possible UTI, possible aspiration pna. * Pressors have been weaned significantly over last 24 hrs with ongoing fluid resuscitation. Patient's encephalopathy improving. Possible extubation today. * Day # 3 of antimicrobial therapy. * Nasal swab negative for MRSA. 1 bottle of 1 set of blood cultures growing alpha-strep (not strep pn, not enterococcus). BioFire also confirm strep species (not strep pn, not GAS, not Grp B strep). This could be blcx contaminant if virdans strep, but could also be oral strep (s anginosus or s viridans) in setting of aspiration pna; repeat BLCXs ordered; Urine cx pending * Abd/Pelvis CT: read as "prominent stool burden" and "developing stercoral colitis suggested. No pneumatosis or pneumoperitoneum" * Given significant shock state and slow improvement, [employer] Worker plans another 24 hrs of vancomycin in addition to Zosyn Plan Vancomycin * Vanco level drawn prior to 2nd maint dose = 11.6mcg/mL. Prior doses hung on schedule. Level drawn at appropriate time. * Maintenance dose: continue 750 mg IV every 12 hours * Regimen is still predicted to achieve target AUC/VIVI of 400-600 mg/L.hr * Will likely repeat level again in next 48 hrs if therapy to continue. Pharmacy will continue to follow and will adjust dose/frequency as necessary. Thank you. Pharmacy has transitioned to AUC monitoring for vancomycin. AUC/VIVI is the preferred PK/PD target and is associated with decreased risk of nephrotoxicity compared to traditional trough targets.
--- NOTE | 2023-08-08 10:40 | Neurology Consultation ---
Date of Consultation August 08, 2023 Assessment & Plan (1) Encephalopathy acute: (2) Myoclonus: (3) Hypocalcemia: Plan 72-year-old female presenting with unresponsiveness, hypotension, bradycardia, cardiogenic shock? Hypovolemia, hypocalcemia, fecal impaction. Patient remains encephalopathic with variable degrees of alertness, has been exhibiting intermittent mild myoclonic jerking of the arms and legs. No evidence of seizure activity on EEG completed yesterday. As above, probable multifactorial encephalopathy with an element of neural hyperexcitability in the context of hypocalcemia and intermittent mild myoclonic jerking of the limbs. Follow-up with brain MRI when results available. No indication for an antiseizure medication at this time. Continue supportive medical care, treatment of hypocalcemia. Please contact me if patient's neurologic status declines or fails to improve. History of Present Illness Reason for Consultation: encephalopathy Requesting Physician: Jeremy Attending Physician: Shannon Khan MD History of Present Illness The patient is a 72-year-old female who presented to the emergency department on August 06 with altered mental status, found unresponsive by caretakers, she was hypotensive and bradycardic which improved with treatment and route to the hospital. She remained confused and minimally responsive during her initial evaluation. Intubated for airway protection, felt to have cardiogenic shock, noted to have chronic constipation with extensive stool burden, some concern for bowel perforation initially. Had a metabolic acidosis. Patient has been exhibiting intermittent myoclonic jerking and variable levels of alertness. An EEG completed yesterday revealed a diffuse nonspecific encephalopathy, no seizure activity or epileptiform abnormalities. A CT of the head completed at time of presentation was negative for hemorrhage or acute process. 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 This morning, the patient remains on the mechanical ventilator, she had received some sedatives overnight, although held this morning, again, variable alertness today, able to follow some minimal commands such as hand grasping, otherwise exhibit some spontaneous movement of the limbs as well as occasional irregular jerking. No nystagmus or eye deviation, no obvious seizure activity. Allergies Allergy/AdvReac Type Severity Reaction Status Date / Time Penicillins Allergy Intermediate Hives Verified 08/06/23 02:02 pollen extracts Allergy Intermediate seasonal Verified 08/06/23 02:02 allergy Cephalosporins AdvReac Intermediate Hallucinations/GI Verified 08/06/23 02:02 UPSET/ CONFUSION cyclobenzaprine AdvReac Intermediate neuro Verified 08/06/23 02:02 [From Flexeril] complications rizatriptan [From Maxalt] AdvReac Intermediate VERTIGO Verified 08/06/23 02:02 Home Medications Medication Instructions Recorded Confirmed Type duloxetine 60 mg capsule,delayed 60 mg PO QAM 04/14/18 08/06/23 History release (Cymbalta) levothyroxine 50 mcg tablet 50 mcg PO DAILYBB 04/14/18 08/06/23 History (Synthroid) loratadine 10 mg tablet (Claritin) 10 mg PO HS PRN Allergy Symptoms 03/25/19 08/06/23 History magnesium oxide 400 mg PO QAM 03/25/19 08/06/23 History atorvastatin 20 mg tablet 20 mg PO HS 11/22/19 08/06/23 History sumatriptan succinate 100 mg tablet 100 mg PO DAILY PRN Headache 11/22/19 08/06/23 History metformin 500 mg tablet 500 mg PO QAM 02/24/21 08/06/23 History riboflavin (vitamin B2) 400 mg 400 mg PO QAM 02/24/21 08/06/23 History tablet fluticasone propionate 50 2 spray intranasal DAILY 07/13/21 08/06/23 History mcg/actuation nasal spray,suspension (Flonase Allergy Relief) aspirin 81 mg chewable tablet 81 mg PO DAILY 05/12/22 08/06/23 History (Aspirin Childrens) docusate sodium 100 mg capsule 100 mg PO BID 07/13/22 08/06/23 History (Colace) gabapentin 100 mg capsule See Rx Instructions .Route .COMPLEX 09/01/22 08/06/23 History cholecalciferol (vitamin D3) 1,250 1,250 mcg PO WK 12/16/22 08/06/23 History mcg (50,000 unit) capsule clozapine 100 mg tablet 300 mg PO HS 12/16/22 08/06/23 History clozapine 25 mg tablet 50 mg PO QAM 12/16/22 08/06/23 History omeprazole 40 mg capsule,delayed 40 mg PO HS 12/16/22 08/06/23 History release lisinopril 20 mg tablet 20 mg PO QAM 01/15/23 08/06/23 History metoprolol succinate 50 mg 50 mg PO QAM 03/08/23 08/06/23 History tablet,extended release 24 hr acetaminophen 500 mg/15 mL oral 100 mg PO Q4H PRN PAIN/FEVER 08/06/23 08/06/23 History liquid amlodipine 5 mg tablet 5 mg PO DAILY 08/06/23 08/06/23 History cyanocobalamin (vitamin B-12) 1,000 mcg PO DAILY 08/06/23 08/06/23 History 1,000 mcg tablet (Vitamin B-12) diclofenac sodium 1 % topical gel 2 g topical TID PRN Pain 08/06/23 08/06/23 History diclofenac sodium 50 mg 50 mg PO BID 08/06/23 08/06/23 History tablet,delayed release iron,carbonyl 65 mg-vitamin C 125 1 tab PO DAILY 08/06/23 08/06/23 History mg tablet,delayed release (Vitron-C) methenamine hippurate 1 gram tablet 1 g PO AMHS 08/06/23 08/06/23 History psyllium 1 tsp PO TID 08/06/23 08/06/23 History Patient History Medical History Weakness Constipation Bacteremia Acute UTI (urinary tract infection) Generalized weakness AMS (altered mental status) Unresponsive Obtunded COVID-19 Hyponatremia Nausea Dehydration Dizziness Neuropathy Headache Vertigo Schizophrenia GERD (gastroesophageal reflux disease) Well controlled with medication Hypothyroidism Anxiety Migraine Hypertension Neuropathy DM2 (diabetes mellitus, type 2) HLD (hyperlipidemia) Somatization disorder Surgical History S/P foot surgery, right X2 S/P foot surgery, left X2 History of colonoscopy History of tooth extraction WISDOM TEETH History of tonsillectomy H/O bilateral cataract extraction History of craniotomy 1969, IN [place] D/T HEADACHE---FOLLOWS W DR. 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 Required: No Beliefs That Will Affect Care: Mormonism Mormonism Beliefs: judaism marital status: Single Current Living Situation: Personal Care Facility Current Living Situation Comment: caregivers daily, not on weekends How many Children do You have: 0 Feels Safe at Home: Yes Assistive Devices: Walker Review of Systems Review of Systems: Unobtainable due to endotracheal tube and Unobtainable due to reduced consciousness Exam (Neuro) Constitutional: + thin, + frail appearing and + 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 Minimal withdrawal of the limbs to noxious stimulation. Spontaneous grasp noted both hands. Withdrawals both feet to plantar stimulation. Results & Data Vital Signs (Past 12 Hours) Vital Signs Temp Pulse Resp BP Pulse Ox O2 Del Method FiO2 08/08/23 09:06 38.0 C H 76 26 H 97 08/08/23 09:06 103/87 08/08/23 09:00 38.0 C H 72 21 96 08/08/23 08:26 37.8 C H 69 14 96 08/08/23 08:26 94/61 L 08/08/23 08:01 37.7 C H 66 18 94 08/08/23 08:01 69/44 L 08/08/23 08:00 Mechanical Vent 30 08/08/23 08:00 30 08/08/23 08:00 66 08/08/23 08:00 37.7 C H 66 20 92 Mechanical Vent 08/08/23 07:45 37.6 C H 96 H 18 97 08/08/23 07:36 97 H 19 96 30 08/08/23 07:30 37.6 C H 98 H 20 96 08/08/23 07:28 37.6 C H 97 H 22 96 08/08/23 07:28 129/81 08/08/23 07:15 37.5 C 69 17 97 08/08/23 07:00 110/62 08/08/23 07:00 37.5 C 68 18 96 08/08/23 06:45 37.5 C 68 18 96 08/08/23 06:30 37.3 C 68 17 95 Mechanical Vent 08/08/23 06:15 37.3 C 68 16 97 08/08/23 06:00 37.3 C 69 16 120/66 96 Mechanical Vent 08/08/23 05:00 37.3 C 68 16 121/65 98 Mechanical Vent 08/08/23 04:00 37.5 C 68 16 120/64 97 08/08/23 04:00 30 08/08/23 04:00 121/51 L 08/08/23 03:00 37.9 C H 68 16 110/65 97 08/08/23 02:23 68 16 97 30 08/08/23 02:00 38.2 C H 68 16 99/57 L 97 Mechanical Vent 08/08/23 01:00 38.6 C H 69 16 114/63 97 Mechanical Vent 08/08/23 00:00 39.0 C H 71 19 125/77 98 Mechanical Vent 08/08/23 00:00 30 08/08/23 00:00 117/50 L 08/07/23 23:56 72 08/07/23 23:00 38.9 C H 72 18 121/58 L 97 Mechanical Vent Laboratory Results WBC 4.59, hemoglobin 8.8, hematocrit 26.1, platelet count 158, sodium 139, potassium 3.0, BUN 21, creatinine 0.75, glucose 138, calcium 7.3, magnesium 2.5, AST 34, ALT [address] of the head is as described in the HPI, I independently reviewed these images. An electrocardiogram revealed normal left ventricular systolic function, ejection fraction 50 to 55%, no regional wall motion abnormalities, normal left atrial size, no pericardial effusion. An electrocardiogram revealed a sinus rhythm, 92 bpm. Coding Level of Care Code 47028 INT INP/OBS CARE 3/75MIN Diagnoses Encephalopathy acute G93.40 Myoclonus G25.3 Hypocalcemia E83.51 Time Spent (min) 80 Comment Total time includes patient contact, chart review, counseling, note preparation
[2023-08-08] MEDS: bisacodyL 10 MG SUPP PR ONE (11:14)
--- NOTE | 2023-08-08 11:57 | Billing Data ---
Date of Service August 08, 2023 Coding Level of Care Code 33534 CRITICAL CARE 1ST 30-74M Time Spent (min) 40
--- NOTE | 2023-08-08 12:20 | Surgery Progress Note ---
Date of Service August 08, 2023 Assessment & Plan (1) Hypocalcemia: (2) Myoclonus: (3) Seizure-like activity: (4) Encephalopathy acute: (5) Shock: (6) Constipation, chronic: (7) Stercoral colitis: Plan ICU, smoke chaser management, Neurology on board. MRI pending. From a surgical standpoint, there are no findings to suggest perforation and this constipation has been chronic. There is excessive stool burden potentially causing some translocation of bacteria crossing the diffusely stretched colon wall. She does seem to be improving and responding to conservative measures which will provide a better outcome for her. She has bowel sounds, continue with suppositories, lactulose ok. Once she starts moving her bowels, may begin other forms of colonic stimulation. Admission and Anticipated Discharge Date Admission Date: August 06, 2023 Subjective Patient was seen and examined this am. Levophed and Vasopressin were placed on board and increased o/n with resulting elevated MAP and BP's to the high 170's this am. Since, pressors have been weaned back down and she is requiring minimal of both pressors. She has been reportedly following commands. Still no BM reported since enemas yesterday, A dose of Dulcolax last night and she was started on Lactulose today. Physical Exam Constitutional: Intermittent low grade fevers No diaphoresis Respiratory: Intubated during my evaluation early am Cardiovascular: On pressors sustaining MAPs and was over compensated o/n, HD seems to be improving Gastrointestinal (Abdomen): Abdomen remains distended Feels more solid component than tympany Bowel sounds are present Musculoskeletal: Peripheral edema is present Results & Data Vital Signs (Past 12 Hours) Vital Signs Temp Pulse Resp BP Pulse Ox O2 Del Method FiO2 08/08/23 11:17 69 08/08/23 11:00 37.9 C H 69 15 97 08/08/23 11:00 97/55 L 08/08/23 10:00 38.2 C H 71 21 99 08/08/23 10:00 102/51 L 08/08/23 09:06 38.0 C H 76 26 H 97 08/08/23 09:06 103/87 08/08/23 09:00 38.0 C H 72 21 96 08/08/23 08:26 37.8 C H 69 14 96 08/08/23 08:26 94/61 L 08/08/23 08:01 37.7 C H 66 18 94 08/08/23 08:01 69/44 L 08/08/23 08:00 Mechanical Vent 30 08/08/23 08:00 30 08/08/23 08:00 66 08/08/23 08:00 37.7 C H 66 20 92 Mechanical Vent 08/08/23 07:45 37.6 C H 96 H 18 97 08/08/23 07:36 97 H 19 96 30 08/08/23 07:30 37.6 C H 98 H 20 96 08/08/23 07:28 37.6 C H 97 H 22 96 08/08/23 07:28 129/81 08/08/23 07:15 37.5 C 69 17 97 08/08/23 07:00 110/62 08/08/23 07:00 37.5 C 68 18 96 08/08/23 06:45 37.5 C 68 18 96 08/08/23 06:30 37.3 C 68 17 95 Mechanical Vent 08/08/23 06:15 37.3 C 68 16 97 08/08/23 06:00 37.3 C 69 16 120/66 96 Mechanical Vent 08/08/23 05:00 37.3 C 68 16 121/65 98 Mechanical Vent 08/08/23 04:00 37.5 C 68 16 120/64 97 08/08/23 04:00 30 08/08/23 04:00 121/51 L 08/08/23 03:00 37.9 C H 68 16 110/65 97 08/08/23 02:23 68 16 97 30 08/08/23 02:00 38.2 C H 68 16 99/57 L 97 Mechanical Vent 08/08/23 01:00 38.6 C H 69 16 114/63 97 Mechanical Vent PG Care Time/CCT Total # of Minutes Spent Total Time Spent with Patient: Total time spent is greater than 50% in coordination of care (as documented) at patient's floor/unit and/or counseling patient: Coding Level of Care Code 76574 SUB INP/OBS CARE 2/35MIN Diagnoses Hypocalcemia E83.51 Myoclonus G25.3 Seizure-like activity R56.9 Encephalopathy acute G93.40 Shock R57.9 Constipation, chronic K59.09 Stercoral colitis K52.89
[2023-08-08] MEDS: NOREPINEPHRINE/D5W 4 MG/250 ML IV ONE (13:12)
[2023-08-08 17:36] LABS: BUN Creatinine Ratio 28.6 (10-20); Creatinine Clr Calc Pharmacy 67.5 ml/min; Est GFR (African American) 99.6 ml/min
[2023-08-08 20:40] LABS: iSTAT Art Bld Gas pCO2 Correct 36 mmHg (35-46); iSTAT Art Bld Gas pH Corrected 7.407 (7.35-7.45); iSTAT Arterial Blood Gas HCO3 23 meg/L (19-24); iSTAT Arterial Blood Gas pCO2 37 mmHg (35-46); iSTAT Arterial Blood Gas pO2 100 mmHg (80-95); iSTAT Arterial Blood Gas pO2 C 97; iSTAT Carbon Dioxide 24 mmol/L (24-31); iSTAT Hematocrit 25 % (37-47); iSTAT Hemoglobin 8.5 g/dl (12.0-16.0); iSTAT Potassium 4.3 mmol/L (3.3-5.0); iSTAT Site Art Line; iSTAT Sodium 139 mmol/L (135-144)
--- NOTE | 2023-08-08 22:24 | Hospitalist Progress Note ---
Date of Service August 08, 2023 Assessment & Plan (1) Stercoral colitis: (2) Constipation, chronic: Plan Pt is a 72yoF with PMHx significant for HTN, HLD, DMII, hypothyroidism, Hx of brain tumor s/p partial resection, schizophrenia, prior migraine, chronic anemia, recurrent UTIs, urinary incontinence and urinary bladder diverticulum presented after being found down and minimally responsive at home. Patient was admitted to ICU for management and evaluation of septic shock. Septic shock Pt was hypotensive on admission, requiring ICU admission Required pressor support, currently being weaned Vanc/Zosyn Acute respiratory failure requiring mechanical ventilation Secondary to severe sepsis Vent management per ICU Severe constipation Stercoral Colitis CT Abd/pelvis showing moderate stool burden Continue enema General surgery consulted- appreciate recs Cognitive Impairment Schizophrenia Recommended 24 hour support previously, relies on assistance of two care givers On clozapine (currently on hold), cymbalta, gabapentin, resume when appropriate High risk for delirium, ICU delirium precautions MRI brain as per ICU. Hypothyroidism Resume Levothyroxine when able Hypertension Hold home antihypertensive while patient is on vasopressors Consider restart once off HLD Hold statin DMII Hold home metformin ICU hyperglycemia protocol Recurrent UTI Hold home methenamine Recurrent migraines Hold magnesium, riboflavin Chronic normocytic anemia Hgb baseline ~10, stable Monitor CBC Admission and Anticipated Discharge Date Admission Date: August 06, 2023 Subjective Pt was seen right after being extubated. Coughing. Responding to questions and trying to talk. Review of Systems Review of Systems: All systems reviewed & are unremarkable except as noted in Subjective Physical Exam Physical Exam: General: Alert Psych:mood and affect could not be determined Neuro: alert, responsive HEENT: NC/AT Chest: Nontender to palpation. CV: RRR Resp:no increased effort of breathing but coughing, NC in nares. Abdomen: firm, distended Extremities: edema in lower extremities bilaterally. Results & Data Results & Data Vital Signs (Past 12 Hours) Vital Signs Temp Pulse Resp BP Pulse Ox O2 Del Method FiO2 08/08/23 11:17 69 08/08/23 09:06 38.0 C H 76 26 H 97 08/08/23 09:06 103/87 08/08/23 09:00 38.0 C H 72 21 96 08/08/23 08:26 37.8 C H 69 14 96 08/08/23 08:26 94/61 L 08/08/23 08:01 37.7 C H 66 18 94 08/08/23 08:01 69/44 L 08/08/23 08:00 Mechanical Vent 30 08/08/23 08:00 30 08/08/23 08:00 66 08/08/23 08:00 37.7 C H 66 20 92 Mechanical Vent 08/08/23 07:45 37.6 C H 96 H 18 97 08/08/23 07:36 97 H 19 96 30 08/08/23 07:30 37.6 C H 98 H 20 96 08/08/23 07:28 37.6 C H 97 H 22 96 08/08/23 07:28 129/81 08/08/23 07:15 37.5 C 69 17 97 08/08/23 07:00 110/62 08/08/23 07:00 37.5 C 68 18 96 08/08/23 06:45 37.5 C 68 18 96 08/08/23 06:30 37.3 C 68 17 95 Mechanical Vent 08/08/23 06:15 37.3 C 68 16 97 08/08/23 06:00 37.3 C 69 16 120/66 96 Mechanical Vent 08/08/23 05:00 37.3 C 68 16 121/65 98 Mechanical Vent 08/08/23 04:00 37.5 C 68 16 120/64 97 08/08/23 04:00 30 08/08/23 04:00 121/51 L 08/08/23 03:00 37.9 C H 68 16 110/65 97 08/08/23 02:23 68 16 97 30 08/08/23 02:00 38.2 C H 68 16 99/57 L 97 Mechanical Vent 08/08/23 01:00 38.6 C H 69 16 114/63 97 Mechanical Vent 08/08/23 00:00 39.0 C H 71 19 125/77 98 Mechanical Vent 08/08/23 00:00 30 08/08/23 00:00 117/50 L 08/07/23 23:56 [address] 08/06/23 16:43 CT OF THE HEAD WITHOUT CONTRAST CLINICAL HISTORY: Altered mental status. COMPARISON STUDY: Head CT July 12, 2023. TECHNIQUE: Helical axial images of the head were obtained without IV contrast. Automated exposure control was utilized for the study. A dose lowering technique was utilized adhering to the principles of ALARA. FINDINGS: No acute intracranial hemorrhage, midline shift or mass effect is present. The ventricular system is unremarkable. The basal cisterns are patent. No extra-axial collections are present. There are no findings to suggest acute dural sinus thrombosis or acute territorial infarct. There is no acute calvarial fracture. Right posterior calvarial defect is chronic. IMPRESSION: No acute intracranial findings. No change in appearance of the brain. ACT 112: Negative or not required by law. Electronically signed by: Lukas Law M.D. 08/06/2023 5:31 PM Chest X-Ray 08/06/23 16:44 XR chest 1V portable CLINICAL HISTORY: Sepsis. COMPARISON STUDY: Chest radiograph August 06, 2023 at 1:00 AM. FINDINGS: Lung volumes are mildly diminished. No pneumothorax or pleural effusion is present. There is no consolidation to suggest pneumonia. Mild cardiomegaly is again noted. IMPRESSION: No acute cardiopulmonary findings. ACT 112: Negative or not required by law. Electronically signed by: Lukas Law M.D. 08/06/2023 5:18 PM Abdomen/Pelvis CT 08/06/23 17:02 CT OF THE ABDOMEN AND PELVIS WITHOUT CONTRAST CLINICAL HISTORY: Distention. COMPARISON STUDY: CT of the abdomen and pelvis December 16, 2022. TECHNIQUE: Axial images of the abdomen and pelvis were obtained without IV contrast. Images were reviewed in the axial, sagittal, and coronal planes. Automated exposure control was utilized for the study. A dose lowering technique was utilized adhering to the principles of ALARA. FINDINGS: Evaluation of the abdomen and pelvis is suboptimal on this unenhanced exam. Liver, spleen, adrenal glands, kidneys and pancreas are unremarkable. There is no biliary or pancreatic ductal dilatation. There is no hydronephrosis. There is a large amount of stool within the colon. The sigmoid colon is redundant. There is mild wall thickening of the mid to distal transverse colon, splenic flexure and descending colon. A small amount of ascites is present. No well-defined fluid collections are identified. Of note, there is possible small amount of extraluminal gas within the pelvis. Differentiation between intraluminal and extraluminal gas is difficult on this exam given paucity of intra-abdominal fat. The colon is moderately distended. This is due to the stool. No definite evidence for a bowel obstruction. IMPRESSION: 1. Large amount of stool within the colon. Mild left colon wall thickening. This represents a nonspecific colitis and could reflect a stercoral colitis given the amount of stool. No evidence for a bowel obstruction. 2. Small amount of ascites. Possible extraluminal gas within the pelvis. Differentiation between intraluminal and extraluminal gas is difficult on this exam. A bowel perforation cannot be excluded. Findings discussed with Karla Hilotn at time of dictation. ACT 112: Negative or not required by law. Electronically signed by: Lukas Law M.D. 08/06/2023 5:43 PM Chest X-Ray 08/06/23 18:50 XR chest 1V portable HISTORY: 72 years-old Female post intub acute respiratory failure COMPARISON: 08/06/2023 at 4:50 PM TECHNIQUE: AP view of the chest FINDINGS: Endotracheal tube overlies the midline, 3.4 cm superior to the vadim. Right IJ central venous catheter distal tip overlies the right atrium. Distal tip of enteric tube projects over the distal esophagus. Advancement of 7 to 10 cm recommended. Cardiomediastinal and hilar silhouettes are within normal limits. Mild chronic interstitial coarsening with bibasilar atelectasis. No pneumothorax, pleural effusion or overt pulmonary edema. No airspace consolidation typical for pneumonia. Degenerative changes of the shoulders and spine. IMPRESSION: 1. Lines and tubes as above. The enteric tube should be advanced several centimeters. 2. Cardiomegaly with chronic interstitial coarsening. 3. No pneumothorax. ACT 112: Negative or not required by law. The above report was generated using voice recognition software. It may contain grammatical, syntax or spelling errors. Electronically signed by: Live Mancera M.D. 08/07/2023 6:52 AM Abdomen/Pelvis CT 08/06/23 19:17 Exam(s): CT ABDOMEN + PELVIS With Contrast IV Amt: 84 ml opti 320 EXAM: CT Abdomen and Pelvis With Intravenous Contrast CLINICAL HISTORY: eval for perforation or further infective source. TECHNIQUE: Axial computed tomography images of the abdomen and pelvis with intravenous contrast. CTDI is 24.84 mGy and DLP is 1299.28 mGy-cm. Automated exposure control was utilized for the study. A dose lowering technique was utilized adhering to the principles of ALARA. CONTRAST: Patient received 84 ml opti 320 of IV contrast COMPARISON: CT abdomen and pelvis without contrast dated 08/06/2023 FINDINGS: Lung bases: See below. Pleural space: Subsegmental dependent changes involving the posterior costophrenic margins. No lobar consolidation. Heart: Similar cardiomegaly. ABDOMEN: Liver: Mild periportal lucency/edema. Gallbladder and bile ducts: Unremarkable. No calcified stones. No ductal dilation. Pancreas: Unremarkable. No mass. No ductal dilation. Spleen: Unremarkable. No splenomegaly. Adrenals: Unremarkable. No mass. Kidneys and ureters: Unremarkable. No solid mass. No hydronephrosis. Stomach and bowel: Prominent stool burden involving the distal transverse, descending and sigmoid colon with mild mucosal thickening and subtle pericolonic fat stranding. The distal rectosigmoid is decompressed, as is the right colon with colonic mucosal thickening, slightly greater than expected for degree of decompression. The pattern of constipation is similar to the previous CT examination. There is mild distention of the stomach with fluid and gas. There is fluid distention of the duodenum. Small bowel is probably decompressed. PELVIS: Appendix: The appendix is stable in appearance along the medial aspect of the cecum in the right lower quadrant. Bladder: The bladder is decompressed with a Hou catheter in position. Reproductive: Unremarkable as visualized. ABDOMEN and PELVIS: Intraperitoneal space: Unremarkable. No free air. No significant fluid collection. Bones/joints: Similar hyperdense fat stranding and soft tissue changes overlying the lateral aspect of both hips. No acute fracture. No dislocation. Soft tissues: Unremarkable. Vasculature: Unremarkable. No abdominal aortic aneurysm. Lymph nodes: Unremarkable. No enlarged lymph nodes. Tubes, lines and devices: There is a nasogastric tube which terminates in the distal thoracic esophagus. IMPRESSION: 1. Prominent stool burden involving the distal transverse, descending and sigmoid colon with mild mucosal thickening and subtle pericolonic fat stranding. The distal rectosigmoid is decompressed, as is the right colon with colonic mucosal thickening, slightly greater than expected for degree of decompression. The pattern of constipation is similar to the previous CT examination. Developing stercoral colitis is suggested. No pneumatosis or pneumoperitoneum. 2. Mild periportal lucency/edema. This is a nonspecific finding but the primary consideration is hypervolemia. Acute hepatitis or cholangitis is considered less likely. Please correlate with laboratory findings. 3. There is a nasogastric tube which terminates in the distal thoracic esophagus. Recommend advancement for placement into the stomach, as clinically desired. Electronically signed by: Jerel Santana MD 08/06/23 20:38 PM Chest X-Ray 08/06/23 20:50 XR chest 1V portable HISTORY: 72 years-old Female eval CVL placment, ETT and OGT placement- acute respiratory failure COMPARISON: 08/06/2023 at 6:59 PM TECHNIQUE: AP view of the chest FINDINGS: Cardiac silhouette is normal. Endotracheal tube overlies the midline, 3.8 cm superior to the vadim. Right IJ central venous catheter distal tip terminates over the superior cavoatrial junction. Distal tip of enteric tube projects over the gastric body. Cardiomediastinal and hilar silhouettes are within normal limits. Mild chronic interstitial coarsening with bibasilar atelectasis. No pneumothorax, pleural effusion or overt pulmonary edema. No airspace consolidation typical for pneumonia. Degenerative changes of the shoulders and spine. IMPRESSION: 1. Lines and tubes as above. 2. Unchanged appearance of the lungs. 3. No pneumothorax. ACT 112: Negative or not required by law. The above report was generated using voice recognition software. It may contain grammatical, syntax or spelling errors. Electronically signed by: Live Mancera M.D. 08/07/2023 7:05 AM KUB X-Ray 08/07/23 05:00 [facility] CLINICAL HISTORY: eval for free air COMPARISON STUDY: CT of the abdomen and pelvis August 06, 2023. FINDINGS: Tip of nasogastric tube is within the body of the stomach. Large amount of stool within the colon is again noted. Colonic dilatation is unchanged. There is no lucency under the hemidiaphragms to suggest free air. No radiographic evidence for pneumatosis or portal venous gas. Left basilar opacity favors atelectasis. IMPRESSION: 1. No evidence for free air. 2. No change in colonic dilatation and a large amount of stool within the colon. ACT 112: Negative or not required by law. Electronically signed by: Lukas Law M.D. 08/07/2023 10:11 AM
[2023-08-09 04:56] LABS: Albumin Level 2.9 gm/dl (3.4-5.0); BUN Creatinine Ratio 31.1 (10-20); Bilirubin Direct 0.3 mg/dl (0-0.2); Bilirubin,Total 0.7 mg/dl (0.2-1.0); Calcium 8.1 mg/dl (8.6-10.3); Creatinine Clr Calc Pharmacy 77.5 ml/min; Est GFR (African American) 104.2 ml/min; Est GFR (Non-African American) 89.9 ml/min; Magnesium 2.4 mg/dl (1.7-2.4); Phosphorus 2.7 mg/dl (2.5-4.9); Potassium 3.4 mmol/L (3.5-5.1); Total Protein 5.1 gm/dl (6.0-8.3)
[2023-08-09 05:39] LABS: Basophils # (auto) 0.06 K/uL (0.00-0.20); Basophils % (auto) 1.4 %; Dohle Bodies 1+; Echinocytes 2+; Hematocrit (blood only) 29.2 % (37.0-47.0); Hemoglobin 9.2 g/dl (12.0-16.0); Immature Granulocytes # (auto) 0.01 K/uL (0.01-0.20); Immature Granulocytes % (auto) 0.2 %; Lymphocytes % (auto) 9.5 %; Mean Corpuscular Hgb Conc 31.5 g/dL (32.0-36.0); Mean Corpuscular Volume 88.8 fL (80.0-100.0); Monocytes # (auto) 0.41 K/uL (0.11-0.59); Monocytes % (auto) 9.7 %; Neutrophils # (auto) 3.35 K/uL (1.40-6.50); Neutrophils % (auto) 79.2 %; Platelet Count 142 K/uL (130-400); Polychromasia 1+; RDW Coefficient of Variation 16.8 % (11.5-14.5); RDW Standard Deviation 54.3 fL (36.4-46.3); Red Blood Count 3.29 M/uL (4.20-5.40); White Blood Count 4.23 K/ul (4.8-10.8)
[2023-08-09] MEDS ORDERED: Nursing to Pharmacy Communication SCH (06:00)
[2023-08-09] MEDS: LACTATED RINGER'S 1,000 ML IV ONE (06:01)
[2023-08-09] MEDS: POTASSIUM CHLORIDE CRTAB 20 MEQ TABCR PO STA (06:02)
[2023-08-09] MEDS: INSULIN ASPART PER UNIT CHARGE SC SCH (07:57)
--- NOTE | 2023-08-09 08:41 | Surgery Progress Note ---
Date of Service August 09, 2023 Assessment & Plan (1) Stercoral colitis: (2) Constipation, chronic: Plan: Patient is now HD stable, responsive and having BMs. Patient is pending transfer to telemetry. Continue with bowel regimen. May also consider Miralax. Admission and Anticipated Discharge Date Admission Date: August 06, 2023 Subjective Patient was seen and examined this am. Remains extubated, off pressors. She is improved. Responsive and starting to have BMs. 3 large BMs reported by the overnight nurse. She is able to respond to questions. Admits to central abdominal pain and LLQ. Physical Exam Constitutional: average body habitus; not in distress and not diaphoretic Respiratory: no respiratory distress, no labored breathing and does not use accessory muscles Cardiovascular: Rate/Rhythm: regular rate; not tachycardic Gastrointestinal (Abdomen): Abdomen remains distended Soft, TTP mid abdomen, nontender elsewhere, without peritonitis Musculoskeletal: edema Results & Data Vital Signs (Past 12 Hours) Vital Signs Temp Pulse Resp BP Pulse Ox O2 Del Method O2 Flow Rate 08/09/23 05:00 97 H 23 134/77 99 08/09/23 04:00 36.8 C 94 H 21 137/68 96 Nasal Cannula 2 08/09/23 03:00 37 C 91 H 21 150/78 H 96 08/09/23 02:01 36.9 C 93 H 24 149/77 H 95 08/09/23 01:00 90 22 147/65 H 91 08/09/23 00:00 36.7 C 90 19 125/98 94 08/09/23 00:00 90 08/08/23 23:00 91 H 19 142/71 H 90 08/08/23 22:00 36.8 C 88 17 117/67 95 08/08/23 21:00 Nasal Cannula 2 08/08/23 21:00 36.9 C 103 H 23 90 Laboratory Results K 3.4 PG Care Time/CCT Total # of Minutes Spent Total Time Spent with Patient: Total time spent is greater than 50% in coordination of care (as documented) at patient's floor/unit and/or counseling patient: [place] [address] SUB INP/OBS CARE 25MIN Patient Type Established Diagnoses Stercoral colitis K52.89 Constipation, chronic K59.09
--- NOTE | 2023-08-09 10:15 | Hospitalist Progress Note ---
Date of Service August 09, 2023 Assessment & Plan (1) Stercoral colitis: (2) Constipation, chronic: Plan Pt is a 72yoF with PMHx significant for HTN, HLD, DMII, hypothyroidism, Hx of brain tumor s/p partial resection, schizophrenia, prior migraine, chronic anemia, recurrent UTIs, urinary incontinence and urinary bladder diverticulum presented after being found down and minimally responsive at home. Patient was admitted to the ICU for management and evaluation of septic shock. Septic shock -resolved Pt was hypotensive on admission, requiring ICU admission Required pressor support which has since been discontinued. UA repeatedly without signs of infection, urine Cx with NGTD Chest XR with no signs of infection, biofire negative CT abd/pelvis with suggestion of stercoral colitis, bowel perforation less likely/ruled out Blood Cx x1 growing alpha strep, ?contaminant Pt currently afebrile, BP on higher end Was treated with Vanc/Zosyn, continue empirically. Acute respiratory failure requiring mechanical ventilation Secondary to severe sepsis above Vent management per ICU, pt extubated on 08/08 Currently requiring 2-4L O2 via NC or oxymask Severe constipation Stercoral Colitis CT Abd/pelvis showing significant stool burden On lactulose, received enemas Reportedly pt having many BMs currently General surgery consulted- appreciate recs -recommending to continue with bowel regimen, consider miralax Cognitive Impairment Schizophrenia Acute Agitation/Delirium Required 24 hour support previously, relies on assistance of two care givers [employer] On clozapine, cymbalta, gabapentin at home, all held Pt pulling at lines and more agitated on 08/09 -will re-start home clozapine, per recs needs to titrated up slowly if held for more than 48hrs due to risk of bradycardia, hypotension -pt's home dose of clozapine 50mg qAM, 300mg qPM -clozapine restart on 08/10 at 12.5mg qAM, titrate dose up to home dosing -will hold off on restarting sedating/other meds above (gabapentin, cymbalta) Delirium precautions. Frequent reorientation, avoid sedating medications MRI brain as per ICU. Hypothyroidism Levothyroxine resumed, continue Hypertension Held home antihypertensive while patient was on vasopressors BP currently trending back up In setting of restart of pt's clozapine which is needed and has major side effec ts noted above of hypotension and bradycardia, will resume home antihypertensives once pt has been titrated up to home dose of clozapine. HLD resume statin DMII Hold home metformin ICU hyperglycemia protocol Recurrent UTI Continue home methenamine Recurrent migraines Continue home riboflavin Chronic normocytic anemia Hgb baseline ~10, stable Monitor CBC Diet: Clear liquids DVT prophylaxis: Heparin SQ Dispo: PT/OT ordered, pt has caregivers CODE STATUS: Pt's listed contact in chart was contacted on 08/09 to discuss code status. She states that she works with an agency and is pt's caregiver but is not equipped nor does she want the responsibility of making life/ decisions for pt. She states pt has no POA and is estranged from living family, a sister with whom she was in contact passed recently. Admission and Anticipated Discharge Date Admission Date: August 06, 2023 Subjective Pt was seen multiple times. Confused. Later notified by nursing that pt was having increased respiratory requirement. Has been pulling at things, pulling her IVs out etc. Review of Systems Review of Systems: All systems reviewed & are unremarkable except as noted in Subjective Physical Exam Physical Exam: General: Alert Psych:mood and affect could not be determined Neuro: alert, responsive, confused HEENT: NC/AT Chest: Nontender to palpation. CV: RRR Resp:no increased effort of breathing but coughing, NC in nares. Abdomen: firm, distended Extremities: edema in lower extremities bilaterally. Results & Data Results & Data Vital Signs (Past 12 Hours) Vital Signs Temp Pulse Resp BP Pulse Ox O2 Del Method O2 Flow Rate 08/09/23 09:01 137/74 08/09/23 09:01 92 H 21 97 08/09/23 09:00 92 H 18 96 08/09/23 08:01 96 H 24 96 08/09/23 08:01 124/81 08/09/23 08:00 95 H 20 95 Nasal Cannula 3 08/09/23 07:50 Nasal Cannula 3 08/09/23 07:00 117/98 08/09/23 07:00 97 H 23 96 08/09/23 05:00 97 H 23 134/77 99 08/09/23 04:00 36.8 C 94 H 21 137/68 96 Nasal Cannula 2 08/09/23 03:00 37 C 91 H 21 150/78 H 96 08/09/23 02:01 36.9 C 93 H 24 149/77 H 95 08/09/23 01:00 90 22 147/65 H 91 08/09/23 00:00 36.7 C 90 19 125/98 94 08/09/23 00:00 90 08/08/23 23:00 91 H 19 142/71 H 90
[2023-08-09] MEDS: POTASSIUM CHLORIDE 20 MEQ/15 ML UDC PO STA (11:07)
--- NOTE | 2023-08-09 11:46 | Pharmacy Report ---
Pharmacy PK ABX Note - Date of Service August 09, 2023 - Assessment and Plan Assessment * 72 year old F receiving IV Vancomycin and Zosyn for empiric treatment of septic shock, possible IAI, possible UTI, possible aspiration pna. * Day # 4 of antimicrobial therapy. * Nasal swab negative for MRSA. 1 bottle of 1 set of blood cultures growing alpha-strep (not strep pn, not enterococcus). BioFire also confirm strep species (not strep pn, not GAS, not Grp B strep). This could be blcx contaminant if virdans strep, but could also be oral strep (s anginosus or s viridans) in setting of aspiration pna; repeat BLCXs with no growth to date; Urine cx no growth * Abd/Pelvis CT: read as "prominent stool burden" and "developing stercoral colitis suggested. No pneumatosis or pneumoperitoneum" Plan Vancomycin * Renal fxn continues to improve * Maintenance dose: increase to 1000 mg IV every 12 hours * Regimen is still predicted to achieve target AUC/VIVI of 400-600 mg/L.hr * Will likely repeat level again in next 24-48 hrs if therapy to continue. Pharmacy will continue to follow and will adjust dose/frequency as necessary. Thank you. Pharmacy has transitioned to AUC monitoring for vancomycin. AUC/VIVI is the preferred PK/PD target and is associated with decreased risk of nephrotoxicity compared to traditional trough targets.
[2023-08-09] MEDS: VANCOMYCIN HCL 1,000 MG in SODIUM CHLORIDE 0.9% 250 ML IV SCH (17:01)
[2023-08-09] MEDS ORDERED: OLANZapine 10 MG/2.1 ML SDV IM PRN (19:29)
[2023-08-09 19:34] LABS: iSTAT Allen Test Pass; iSTAT Art Bld Gas pCO2 Correct 38 mmHg (35-46); iSTAT Art Bld Gas pH Corrected 7.379 (7.35-7.45); iSTAT Arterial Blood Gas HCO3 23 meg/L (19-24); iSTAT Arterial Blood Gas pCO2 39 mmHg (35-46); iSTAT Arterial Blood Gas pH 7.38 (7.35-7.45); iSTAT Arterial Blood Gas pO2 37 mmHg (80-95); iSTAT Arterial Blood Gas pO2 C 36; iSTAT Carbon Dioxide 24 mmol/L (24-31); iSTAT Hematocrit 24 % (37-47); iSTAT Hemoglobin 8.2 g/dl (12.0-16.0); iSTAT Potassium 3.2 mmol/L (3.3-5.0); iSTAT Site R Radial; iSTAT Sodium 142 mmol/L (135-144)
[2023-08-09 19:34] LABS: iSTAT Allen Test Pass; iSTAT Art Bld Gas pCO2 Correct 35 mmHg (35-46); iSTAT Art Bld Gas pH Corrected 7.407 (7.35-7.45); iSTAT Arterial Blood Gas HCO3 22 meg/L (19-24); iSTAT Arterial Blood Gas pCO2 35 mmHg (35-46); iSTAT Arterial Blood Gas pH 7.41 (7.35-7.45); iSTAT Arterial Blood Gas pO2 68 mmHg (80-95); iSTAT Arterial Blood Gas pO2 C 68; iSTAT Carbon Dioxide 23 mmol/L (24-31); iSTAT Hematocrit 24 % (37-47); iSTAT Hemoglobin 8.2 g/dl (12.0-16.0); iSTAT Potassium 3.1 mmol/L (3.3-5.0); iSTAT Site R Radial; iSTAT Sodium 142 mmol/L (135-144)
[2023-08-09 19:34] LABS: iSTAT Allen Test Pass; iSTAT Art Bld Gas pCO2 Correct 33 mmHg (35-46); iSTAT Art Bld Gas pH Corrected 7.422 (7.35-7.45); iSTAT Arterial Blood Gas HCO3 21 meg/L (19-24); iSTAT Arterial Blood Gas pCO2 33 mmHg (35-46); iSTAT Arterial Blood Gas pH 7.42 (7.35-7.45); iSTAT Arterial Blood Gas pO2 54 mmHg (80-95); iSTAT Arterial Blood Gas pO2 C 54; iSTAT Carbon Dioxide 22 mmol/L (24-31); iSTAT Hematocrit 25 % (37-47); iSTAT Hemoglobin 8.5 g/dl (12.0-16.0); iSTAT Potassium 3.2 mmol/L (3.3-5.0); iSTAT Site R Radial; iSTAT Sodium 143 mmol/L (135-144)
[2023-08-09] MEDS: FUROSEMIDE 40 MG/4 ML VIAL IV STA (19:43)
[2023-08-09 19:49] LABS: Calcium 7.9 mg/dl (8.6-10.3); Potassium 3.3 mmol/L (3.5-5.1)
[2023-08-09 19:50] LABS: Hemoglobin 8.7 g/dl (12.0-16.0); Mean Corpuscular Hgb Conc 33.5 g/dL (32.0-36.0); Mean Corpuscular Volume 86.7 fL (80.0-100.0); Mean Platelet Volume 10.6 fL (9.4-12.4); Platelet Count 136 K/uL (130-400); RDW Coefficient of Variation 16.6 % (11.5-14.5); RDW Standard Deviation 53.3 fL (36.4-46.3)
[2023-08-09 19:55] LABS: BUN Creatinine Ratio 29.1 (10-20); Basophils # (auto) 0.04 K/uL (0.00-0.20); Basophils % (auto) 0.8 %; Creatinine Clr Calc Pharmacy 86.1 ml/min; Dohle Bodies 1+; Est GFR (African American) 107.8 ml/min; Est GFR (Non-African American) 93.1 ml/min; Immature Granulocytes % (auto) 2.1 %; Lymphocytes % (auto) 8.3 %; Monocytes # (auto) 0.58 K/uL (0.11-0.59); Monocytes % (auto) 12.1 %; Neutrophils # (auto) 3.68 K/uL (1.40-6.50); Neutrophils % (auto) 76.7 %; Phosphorus 2.1 mg/dl (2.5-4.9)
[2023-08-09] MEDS: POTASSIUM CHLORIDE / WTR 10 MEQ/100 ML PLCT IV SCH (20:14)
[2023-08-09] MEDS: LEVALBUTEROL 1.25 MG/3 ML NEB NEB STA (20:16)
[2023-08-09] MEDS: IPRATROPIUM BROMIDE NEB SOLN 0.02% 0.5MG/2.5ML VIAL INH STA (20:16)
[2023-08-09 21:12] LABS: Appearance Urine Clear (Clear); Bacteria Urine Automated Negative (Negative); Bilirubin Urine Negative (Negative); Blood Urine 3+ (Negative); Cast Urine Automated 0 /lpf (0-5); Color Urine Yellow; Glucose Urine UA Negative (Negative); Ketones Urine Negative (Negative); Leukocyte Esterase Urine Negative (Negative); Nitrite Urine Negative (Negative); Protein Urine Negative (Negative); RBC Urine Automated >30 /hpf (0-4); Specific Gravity Urine 1.005 (1.000-1.030); Urobilinogen Urine Negative (Negative); pH Urine 6.5 (4.5-7.5)
[2023-08-10 05:15] LABS: Albumin Globulin Ratio 1.6 (0.9-2); Albumin Level 2.8 gm/dl (3.4-5.0); BUN Creatinine Ratio 25.9 (10-20); Bilirubin,Total 0.6 mg/dl (0.2-1.0); Calcium 7.5 mg/dl (8.6-10.3); Creatinine Clr Calc Pharmacy 81.6 ml/min; Est GFR (Non-African American) 91.4 ml/min; Globulin 1.8 gm/dl (2.5-4.0); Magnesium 1.6 mg/dl (1.7-2.4); Phosphorus 1.8 mg/dl (2.5-4.9); Potassium 2.8 mmol/L (3.5-5.1); Total Protein 4.6 gm/dl (6.0-8.3)
[2023-08-10 05:49] LABS: Hematocrit (blood only) 25.1 % (37.0-47.0); Hemoglobin 8.4 g/dl (12.0-16.0); Mean Corpuscular Hemoglobin 28.7 pg (25.0-34.0); Mean Corpuscular Hgb Conc 33.5 g/dL (32.0-36.0); Mean Corpuscular Volume 85.7 fL (80.0-100.0); Mean Platelet Volume 11.1 fL (9.4-12.4); Platelet Count 139 K/uL (130-400); RDW Coefficient of Variation 16.7 % (11.5-14.5); RDW Standard Deviation 52.5 fL (36.4-46.3); Red Blood Count 2.93 M/uL (4.20-5.40); White Blood Count 5.05 K/ul (4.8-10.8)
[2023-08-10 05:50] LABS: Basophils # (auto) 0.03 K/uL (0.00-0.20); Basophils % (auto) 0.6 %; Dohle Bodies 1+; Eosinophils # (auto) 0.01 K/uL (0.00-0.50); Eosinophils % (auto) 0.2 %; Immature Granulocytes # (auto) 0.39 K/uL (0.01-0.20); Immature Granulocytes % (auto) 7.7 %; Lymphocytes # (auto) 0.58 K/uL (1.20-3.40); Lymphocytes % (auto) 11.5 %; Monocytes # (auto) 0.63 K/uL (0.11-0.59); Monocytes % (auto) 12.5 %; Neutrophils # (auto) 3.41 K/uL (1.40-6.50); Neutrophils % (auto) 67.5 %
--- NOTE | 2023-08-10 06:15 | Communication Note ---
Date of Service: August 10, 2023 Patient unable to take a.m. Synthroid tablet as per RN. Aspiration concerns with patient coughing with sip of water as per RN. N.p.o. 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
[2023-08-10] MEDS: POTASSIUM CHLORIDE / WTR 10 MEQ/100 ML PLCT IV SCH ×2 (06:18→20:04)
[2023-08-10] MEDS: MAGNESIUM SULFATE / D5W 1 GM/100 ML BAG IV SCH ×2 (06:18→19:18)
--- NOTE | 2023-08-10 08:01 | XRay Report ---
XR chest 1V portable CLINICAL HISTORY: increased work of breathing COMPARISON STUDY: Chest radiograph August 06, 2023. FINDINGS: There is mild cardiomegaly. Mild interstitial thickening is present. Small bilateral pleura l effusions with bibasilar opacities have developed. There is no pneumothorax. IMPRESSION: 1. Cardiomegaly with interstitial pulmonary edema. 2. Interval development of small bilateral pleural effusions with associated bibasilar opacities whic h could reflect pneumonia or atelectasis. ACT 112: Negative or not required by law. Electronically signed by: Lukas Law M.D. 08/10/2023 8:00 AM
[2023-08-10] MEDS: FUROSEMIDE INJ 20 MG/2 ML VIAL IV ONE ×5 (08:44→22:16)
--- NOTE | 2023-08-10 08:52 | Hospitalist Progress Note ---
Date of Service August 10, 2023 Assessment & Plan (1) Stercoral colitis: (2) Constipation, chronic: Plan Pt is a 72yoF with PMHx significant for HTN, HLD, DMII, hypothyroidism, Hx of brain tumor s/p partial resection, schizophrenia, prior migraine, chronic anemia, recurrent UTIs, urinary incontinence and urinary bladder diverticulum presented after being found down and minimally responsive at home. Patient was admitted to the ICU for management and evaluation of septic shock. Septic shock-POA Pt was hypotensive on admission, requiring ICU admission Required pressor support which has since been discontinued. UA repeatedly without signs of infection, urine Cx with NGTD Chest XR with no signs of infection, biofire negative CT abd/pelvis with suggestion of stercoral colitis, bowel perforation less likely/ruled out Blood Cx x1 growing alpha strep, ?contaminant Pt currently afebrile, BP on higher end Was treated with Vanc/Zosyn. 08/10- pt with increased oxygen requirement, chest xray with noted possible pneumonia (also fluid overload), procal newly elevated. Pulmonology consulted- pt switched to meropenem for antibiotic coverage. Repeat Blood Cultures pending. Acute respiratory failure requiring mechanical ventilation On admission, was secondary to severe sepsis above, requiring intubation Vent management per ICU, pt extubated on 08/08 On Aug 09- pt developed acute respiratory failure once more - Pt with increasing oxygen requirement. - Chest xray suggestive of fluid overload, pneumonia (?possible aspiration), procalcitonin elevated >34. -Currently on hi emy oxygen, pt in restraints. -Pulmonology consulted- appreciate recs. -Diuresing with IV Lasix. -Discussed with ICU provider, pt currently stable on hi emy, does not need to be ICU status at this time. Should condition worsen overnight, consider transfer to the ICU. Sputum Cx pending-expectorated or suctioned Follow blood cultures Consider CTA PE protocol with further worsening On antibiotics above, currently meropenem Continue hypertonic saline nebules, percussive vest therapy. Follow speech eval for aspiration concern once more stable Severe constipation Stercoral Colitis CT Abd/pelvis showing significant stool burden on admission On lactulose, received enemas Reportedly pt having many BMs currently General surgery consulted- appreciate recs -recommending to continue with bowel regimen, consider suppositiories if pt unable to tolerate PO Cognitive Impairment Schizophrenia Acute Agitation/Delirium Required 24 hour support previously, relies on assistance of two care givers [employer] On clozapine, cymbalta, gabapentin at home, all held Pt pulling at lines and more agitated on 08/09 -will re-start home clozapine, per recs needs to titrated up slowly if held for more than 48hrs due to risk of bradycardia, hypotension -pt's home dose of clozapine 50mg qAM, 300mg qPM -clozapine restart on 08/10 at 12.5mg qAM, titrate dose up to home dosing -will hold off on restarting sedating/other meds above (gabapentin, cymbalta) Delirium precautions. Frequent reorientation, avoid sedating medications MRI brain as per ICU. Hypothyroidism Levothyroxine resumed, continue Hypertension Held home antihypertensive while patient was on vasopressors BP currently trending back up In setting of restart of pt's clozapine which is needed and has major side effects noted above of hypotension and bradycardia, will resume home antihypertensives once pt has been titrated up to home dose of clozapine. HLD resume statin DMII Hold home metformin ICU hyperglycemia protocol Recurrent UTI Continue home methenamine Recurrent migraines Continue home riboflavin Chronic normocytic anemia Hgb baseline ~10, stable Monitor CBC Diet: Clear liquids DVT prophylaxis: Heparin SQ Dispo: PT/OT ordered, pt has caregivers CODE STATUS: Pt's listed contact in chart was contacted on 08/09 to discuss code status. She states that she works with an agency and is pt's caregiver but is not equipped nor does she want the responsibility of making life/ decisions for pt. She states pt has no POA and is estranged from living family, a sister with whom she was in contact passed recently. Admission and Anticipated Discharge Date Admission Date: August 06, 2023 Subjective pt seen multiple times during the day. Had increasing oxygen requirement, still confused. Advised by CM that there is a jehovah's witness contact who might be able to weigh in on code discussion given pt has no known family with whom she is in contact to make this decision. Mr. Weston Archibald [phone] was contacted about 4:45PM. He states that his only contact with the patient was visiting on behalf of the jehovah's witness. Would not describe himself as a friend. Notes that he discussed this case with a provider at [facility] who used to be in the board (does not name) and was advised that this should likely go to the Ethics committee. States that he is concerned about what the law states in terms of being able to speak on her behalf. Does note in his conversations with the patient that she has always wanted to be well and go home (he makes the distinction not her heavenly home) so he would assume that she wants heroic measures done. States that he has been at [facility] in the past and has visited pts who have been here for months and states that he believes this is what June would want. Review of Systems Review of Systems: All systems reviewed & are unremarkable except as noted in Subjective Physical Exam Physical Exam: General: Alert, confused Psych: mood and affect could not be determined Neuro: alert, confused HEENT: NC/AT Chest: Nontender to palpation. CV: RRR Resp:increased effort of breathing Abdomen: softer, nontender Extremities: edema in lower extremities bilaterally. Results & Data Results & Data Vital Signs (Past 12 Hours) Vital Signs Temp Pulse Resp BP Pulse Ox O2 Del Method O2 Flow Rate 08/10/23 08:00 89 18 160/83 H 97 Oxymask 4 08/10/23 06:00 37.9 C H 158/83 H 08/10/23 06:00 95 H 30 H 95 08/10/23 05:00 37.9 C H 153/77 H 08/10/23 05:00 94 H 25 H 96 08/10/23 04:21 90 23 94 08/10/23 04:21 148/78 H 08/10/23 04:00 166/113 H 08/10/23 04:00 94 H 30 H 94 08/10/23 03:10 172/82 H 08/10/23 03:10 106 H 35 H 92 08/10/23 03:00 191/126 H 08/10/23 03:00 109 H 24 89 L 08/10/23 02:00 165/85 H 08/10/23 02:00 100 H 29 H 94 08/10/23 01:00 149/93 H 08/10/23 01:00 96 H 30 H 95 08/10/23 00:00 160/83 H 08/10/23 00:00 99 H 30 H 95 08/10/23 00:00 99 H 08/09/23 23:01 158/83 H 08/09/23 23:01 99 H 32 H 97 08/09/23 22:00 149/85 H 08/09/23 22:00 100 H 27 H 95 08/09/23 22:00 Oxymask 4 08/09/23 21:00 150/63 H 08/09/23 21:00 103 H 25 H 97
[2023-08-10] MEDS ORDERED: NON-FORMULARY MEDICATION (Riboflavin (Vitamin B2) 400 mg tablet) PO SCH (09:00)
[2023-08-10] MEDS ORDERED: NON-FORMULARY MEDICATION (Iron,Carbonyl-Vitamin C [Vitron-C] 65 mg iron- 125 mg Tablet,Del PO SCH (09:00)
--- NOTE | 2023-08-10 09:15 | XRay Report ---
XR chest 1V portable HISTORY: 72 years-old Female hypoxia acute hypoxia COMPARISON: 08/09/2023 TECHNIQUE: AP view of the chest FINDINGS: Cardiac silhouette is enlarged. Pulmonary vascular congestion with interstitial coarsening. Atheroscl erosis of the aorta. No pneumothorax. Stable layering pleural effusions with bibasilar predominant co nsolidation. Bones appear grossly intact. IMPRESSION: 1. Cardiomegaly with persistent pulmonary edema. 2. Stable pleural effusions with mildly progressed bibasilar consolidation which may represent atelec tasis versus pneumonia. ACT 112: Negative or not required by law. The above report was generated using voice recognition software. It may contain grammatical, syntax o r spelling errors. Electronically signed by: Live Mancera M.D. 08/10/2023 9:13 AM
[2023-08-10] MEDS: CYANOCOBALAMIN (B-12) 500 MCG TABLET PO SCH (09:25)
[2023-08-10] MEDS: cloZAPine 25 MG TAB PO SCH (09:25)
[2023-08-10] MEDS: METHENAMINE HIPPURATE 1 GM TAB PO SCH (09:25)
[2023-08-10] MEDS: PANTOprazole 40 MG TAB PO SCH (09:26)
[2023-08-10] MEDS: FLUTICASONE PROPIONATE NA SPR 16 GM BTL SCH (09:41)
[2023-08-10 10:28] LABS: iSTAT Allen Test Pass; iSTAT Art Bld Gas pCO2 Correct 31 mmHg (35-46); iSTAT Art Bld Gas pH Corrected 7.461 (7.35-7.45); iSTAT Arterial Blood Gas HCO3 22 meg/L (19-24); iSTAT Arterial Blood Gas pCO2 32 mmHg (35-46); iSTAT Arterial Blood Gas pH 7.45 (7.35-7.45); iSTAT Arterial Blood Gas pO2 38 mmHg (80-95); iSTAT Arterial Blood Gas pO2 C 35; iSTAT Carbon Dioxide 23 mmol/L (24-31); iSTAT Hematocrit 25 % (37-47); iSTAT Hemoglobin 8.5 g/dl (12.0-16.0); iSTAT Potassium 2.9 mmol/L (3.3-5.0); iSTAT Site L Radial; iSTAT Sodium 141 mmol/L (135-144)
--- NOTE | 2023-08-10 10:38 | Pulmonology Progress Note ---
Date of Service August 10, 2023 Assessment & Plan (1) Aspiration pneumonia: Plan: Chest x-ray today demonstrates worsening pulmonary congestion and bibasilar infiltrates. Will obtain procalcitonin and blood cultures. Start mucociliary clearance with hypertonic saline and percussive vest therapy. Low threshold for CT of the chest to further evaluate the parenchymal abnormalities and to evaluate for pulmonary embolism. Patient at high risk for requiring r eintubation if unable to protect her airway or hypoxemia worsens. Patient was given 20 mg of IV Lasix earlier today due to volume overload. (2) Severe sepsis: Plan: Continue with broad-spectrum antibiotics. Will check MRSA screen. If positive, will start vancomycin. (3) Weak cough: Plan: Patient with very weak cough which is leading to more aspiration. Will continue efforts at mucociliary clearance. (4) Constipation: Plan: Continue enemas as able to help promote a bowel movement. Surgery on board and following. Plan Thank you for the consult. Will follow. Admission and Anticipated Discharge Date Admission Date: August 06, 2023 Subjective Patient seen and examined this morning. She is requiring more supplemental oxygen and is having a weak cough. She is tachypneic. She is very anxious and disoriented. She is having a fever of 37.9 C. Review of Systems Review of Systems: Unobtainable due to cognitive status Physical Exam Physical Exam: Constitutional: Patient appears to be of their stated age. Anxious appearing. Eyes: Pupils are equal round and reactive to light. Conjunctivae are normal. Anicteric sclera. Ears nose, mouth and throat: Mallampati class 2. Normal posterior oropharynx. Uvula is midline. Neck: Trachea is midline. Visual inspection is normal. Respiratory: Diffuse rhonchi, right greater than left. Increased work of breathing. Cardiovascular: Regular rate and rhythm. No murmurs. No edema. Gastrointestinal: Distended abdomen with bowel sounds present. Musculoskeletal: No cyanosis. Patient is able to move all extremities. Strength is 5 out of 5 in the upper and lower extremities. Skin: No rashes, warm dry and intact. Neurologic: No obvious focal neurological deficits seen. Psychiatric: Disoriented and anxious. Unknown baseline. Results & Data Results & Data Vital Signs (Past 12 Hours) Vital Signs Temp Pulse Resp BP Pulse Ox O2 Del Method O2 Flow Rate 08/10/23 09:00 151/89 H 08/10/23 09:00 93 H 31 H 151/89 H 96 Oxymask 15 08/10/23 08:00 89 18 160/83 H 97 Oxymask 4 08/10/23 06:00 37.9 C H 158/83 H 08/10/23 06:00 95 H 30 H 95 08/10/23 05:00 37.9 C H 153/77 H 08/10/23 05:00 94 H 25 H 96 08/10/23 04:21 90 23 94 08/10/23 04:21 148/78 H 08/10/23 04:00 166/113 H 08/10/23 04:00 94 H 30 H 94 08/10/23 03:10 172/82 H 08/10/23 03:10 106 H 35 H 92 08/10/23 03:00 191/126 H 08/10/23 03:00 109 H 24 89 L 08/10/23 02:00 165/85 H 08/10/23 02:00 100 H 29 H 94 08/10/23 01:00 149/93 H 08/10/23 01:00 96 H 30 H 95 08/10/23 00:00 160/83 H 08/10/23 00:00 99 H 30 H 95 08/10/23 00:00 99 H 08/09/23 23:01 158/83 H 08/09/23 23:01 99 H 32 H 97 PG Care Time/CCT Total # of Minutes Spent Total Time Spent with Patient: Total time spent is greater than 50% in coordination of care (as documented) at patient's floor/unit and/or counseling patient: Coding Level of Care Code 90241 SUB INP/OBS CARE 3/50MIN Diagnoses Aspiration pneumonia J69.0 Severe sepsis A41.9; R65.20 Weak cough R05.8 Constipation K59.00
[2023-08-10] MEDS: DOXYCYCLINE HYCLATE 100 MG in DEXTROSE 5% MINI-B 100 ML IV SCH (11:46)
[2023-08-10] MEDS: ACETAMINOPHEN 1,000 MG/100 ML VIAL IV PRN (11:46)
--- NOTE | 2023-08-10 12:04 | Electrocardiogram Report ---
Test Reason : Blood Pressure : / mmHG Vent. Rate : 106 BPM Atrial Rate : 106 BPM P-R Int : 142 ms QRS Dur : 080 ms QT Int : 266 ms P-R-T Axes : 053 018 243 degrees QTc Int : 353 ms Sinus tachycardia with occasional Premature ventricular complexes Low voltage QRS Diffuse Nonspecific T wave abnormality Abnormal ECG When compared with ECG of 07-AUG-2023 04:43, Premature ventricular complexes are now Present Confirmed by Dimitris Cage ([id number]) on 08/10/2023 12:03:59 PM Referred By: REFERRED SELF Confirmed By:Dimitris Cage
--- NOTE | 2023-08-10 16:57 | Surgery Progress Note ---
Date of Service August 10, 2023 Assessment & Plan (1) Aspiration pneumonia: Plan: May use suppositories if patient will not be able to take oral intake. (2) Stercoral colitis: Admission and Anticipated Discharge Date Admission Date: August 06, 2023 Subjective Patient seen and examined this am. Less responsive today with increasing O2 requirement. Physical Exam Constitutional: not in distress and not diaphoretic Respiratory: On supplemental O2, facemask Gastrointestinal (Abdomen): Abdomen is softer, abdominal distention is decreased. Results & Data Vital Signs (Past 12 Hours) Vital Signs Temp Pulse Pulse Resp BP Pulse Ox O2 Del Method 08/10/23 15:35 91 H 24 96 High Flow Nasal Cannula 08/10/23 15:00 92 H 23 151/99 H 100 High Flow Nasal Cannula 08/10/23 14:01 95 H 30 H 154/83 H 99 High Flow Nasal Cannula 08/10/23 13:00 87 28 H 151/96 H 99 High Flow Nasal Cannula 08/10/23 12:34 89 29 H 97 High Flow Nasal Cannula 08/10/23 12:26 89 29 H 150/80 H 89 L Oxymask 08/10/23 12:14 111 H 34 H 171/94 H 92 Oxymask 08/10/23 12:00 36.7 C 08/10/23 11:13 101 H 29 H 172/92 H 90 Oxymask 08/10/23 09:00 151/89 H 08/10/23 09:00 93 H 31 H 151/89 H 96 Oxymask 08/10/23 08:00 Oxymask 08/10/23 08:00 89 18 160/83 H 97 Oxymask 08/10/23 07:00 36.6 C 08/10/23 06:00 37.9 C H 158/83 H 08/10/23 06:00 95 H 30 H 95 08/10/23 05:00 37.9 C H 153/77 H 08/10/23 05:00 94 H 25 H 96 O2 Flow Rate FiO2 08/10/23 15:35 35 50 08/10/23 15:00 40 75 08/10/23 14:01 40 75 08/10/23 13:00 40 80 08/10/23 12:34 40 75 08/10/23 12:26 15 08/10/23 12:14 15 08/10/23 12:00 08/10/23 11:13 4 08/10/23 09:00 08/10/23 09:00 15 08/10/23 08:00 5 08/10/23 08:00 4 08/10/23 07:00 08/10/23 06:00 08/10/23 06:00 08/10/23 05:00 08/10/23 05:00 Diagnostic Findings CXR: Worsening pulmonary congestion and bibasilar infiltrates. PG Care Time/CCT Total # of Minutes Spent Total Time Spent with Patient: Total time spent is greater than 50% in coordination of care (as documented) at patient's floor/unit and/or counseling patient: Coding Level of Care Code 57048 SUB INP/OBS CARE 07/26MIN Diagnoses Aspiration pneumonia J69.0 Laterality: bilateral Stercoral colitis K52.89 (1) Aspiration pneumonia Laterality: bilateral
[2023-08-10 18:32] LABS: BUN Creatinine Ratio 23.1 (10-20); Calcium 7.5 mg/dl (8.6-10.3); Creatinine Clr Calc Pharmacy 90.6 ml/min; Est GFR (African American) 109.9 ml/min; Est GFR (Non-African American) 94.8 ml/min; Magnesium 1.5 mg/dl (1.7-2.4); Phosphorus 1.7 mg/dl (2.5-4.9); Potassium 2.9 mmol/L (3.5-5.1)
[2023-08-10] MEDS ORDERED: GLYCERIN ADULT 12 SUPP/BOX SUPP PR PRN (18:33)
[2023-08-10] MEDS ORDERED: POTASSIUM PHOS 3 MMOL/1 ML INFUSION IV STA (18:49)
[2023-08-10] MEDS: POTASSIUM PHOSPHATE 24 MMOL in SODIUM CHLORIDE 0.9% 500 ML IV ONE (19:18)
[2023-08-10] MEDS: MEROPENEM 500 MG in SYRINGE 0 ML IV SCH (19:27)
[2023-08-10] MEDS: ATORVASTATIN 20 MG TAB PO SCH (19:32)
[2023-08-10] MEDS: MAGNESIUM OXIDE 400 MG TAB PO SCH (19:32)
[2023-08-10] MEDS: POT PHOSPHATE MONOBASIC W/ SOD TAB PO SCH (19:32)
[2023-08-10] MEDS: methylPREDNISolone 20 MG in SYRINGE 0 ML IV STA (20:04)
[2023-08-10 20:08] LABS: Base Excess ABG -1.1 mEq/L (-9-1.8); HCO3 ABG 23 mmol/L (19-24); PCO2 ABG 34 mmHg (35-46); PO2 ABG 97 mmHg (80-95); pH ABG 7.43 (7.35-7.45)
[2023-08-10] MEDS: LEVALBUTEROL 1.25 MG/3 ML NEB NEB STA (20:19)
[2023-08-10] MEDS: IPRATROPIUM BROMIDE NEB SOLN 0.02% 0.5MG/2.5ML VIAL INH STA (20:19)
[2023-08-10] MEDS: SODIUM CHLOR 7% 4 ML NEB NEB SCH (20:20)
[2023-08-10 21:33] LABS: Allen Test Pos (Pos)
[2023-08-10] MEDS: METOPROLOL TARTRATE 1 MG/ML VIAL IV STA (22:12)
[2023-08-10] MEDS: methylPREDNISolone 20 MG in SYRINGE 0 ML IV ONE (22:46)
--- NOTE | 2023-08-11 00:30 | Communication Note ---
Date of Service: August 11, 2023 Patient transferred to ICU for worsening respiratory distress on high flow O2 despite diuretic and steroid administration. Repeat chest x-ray shows bilateral infiltrates concerning for ARDS.
[2023-08-11] MEDS: METOPROLOL TARTRATE 1 MG/ML VIAL IV STA (00:33)
[2023-08-11] MEDS ORDERED: STAT IV Infusion **Titration per Protocol STA ×2 (00:36→17:21)
[2023-08-11] MEDS: dexMEDEtomidine 200 MCG/50 ML BAG IV SCH (00:47)
[2023-08-11 00:56] LABS: iSTAT Allen Test Pass; iSTAT Art Bld Gas pCO2 Correct 28 mmHg (35-46); iSTAT Arterial Blood Gas HCO3 18 meg/L (19-24); iSTAT Arterial Blood Gas pCO2 29 mmHg (35-46); iSTAT Arterial Blood Gas pH 7.41 (7.35-7.45); iSTAT Arterial Blood Gas pO2 78 mmHg (80-95); iSTAT Arterial Blood Gas pO2 C 76; iSTAT Carbon Dioxide 19 mmol/L (24-31); iSTAT FiO2 100 %; iSTAT Hematocrit 29 % (37-47); iSTAT Hemoglobin 9.9 g/dl (12.0-16.0); iSTAT Potassium 2.8 mmol/L (3.3-5.0); iSTAT Site L Radial; iSTAT Sodium 141 mmol/L (135-144)
[2023-08-11 04:34] LABS: Albumin Globulin Ratio 1.3 (0.9-2); Albumin Level 2.9 gm/dl (3.4-5.0); BUN Creatinine Ratio 20.8 (10-20); Bilirubin,Total 0.5 mg/dl (0.2-1.0); Calcium 7.5 mg/dl (8.6-10.3); Creatinine Clr Calc Pharmacy 88.9 ml/min; Est GFR (African American) 109.2 ml/min; Est GFR (Non-African American) 94.2 ml/min; Globulin 2.3 gm/dl (2.5-4.0); Magnesium 1.8 mg/dl (1.7-2.4); Phosphorus 2.6 mg/dl (2.5-4.9); Potassium 2.9 mmol/L (3.5-5.1); Total Protein 5.2 gm/dl (6.0-8.3)
[2023-08-11] MEDS ORDERED: VANCOMYCIN LEVEL ONE (05:00)
[2023-08-11] MEDS: POTASSIUM CHLORIDE / WTR 10 MEQ/100 ML PLCT IV SCH ×2 (05:14→10:02)
[2023-08-11] MEDS: POTASSIUM CHLORIDE CRTAB 20 MEQ TABCR PO STA (05:31)
[2023-08-11 05:42] LABS: Basophils # (auto) 0.06 K/uL (0.00-0.20); Basophils % (auto) 0.8 %; Dohle Bodies 1+; Eosinophils # (auto) 0.01 K/uL (0.00-0.50); Eosinophils % (auto) 0.1 %; Hematocrit (blood only) 29.7 % (37.0-47.0); Immature Granulocytes # (auto) 0.08 K/uL (0.01-0.20); Lymphocytes % (auto) 6.3 %; Mean Corpuscular Hemoglobin 28.2 pg (25.0-34.0); Mean Corpuscular Hgb Conc 33.7 g/dL (32.0-36.0); Mean Corpuscular Volume 83.9 fL (80.0-100.0); Mean Platelet Volume 10.9 fL (9.4-12.4); Monocytes # (auto) 0.52 K/uL (0.11-0.59); Monocytes % (auto) 6.5 %; Neutrophils # (auto) 6.83 K/uL (1.40-6.50); Neutrophils % (auto) 85.3 %; Platelet Count 170 K/uL (130-400); RDW Coefficient of Variation 16.3 % (11.5-14.5); RDW Standard Deviation 50.8 fL (36.4-46.3); Red Blood Count 3.54 M/uL (4.20-5.40)
--- NOTE | 2023-08-11 06:57 | XRay Report ---
SINGLE VIEW CHEST CLINICAL HISTORY: Dyspnea FINDINGS: 2 AP, portable, upright chest radiographs are compared to study dated 08/10/2023. The heart i s enlarged noting atherosclerotic calcification of the thoracic aorta. There is pulmonary vascular co ngestion. Multifocal bilateral airspace opacities likely represent pulmonary edema. There are layerin g pleural effusions with dependent consolidation. No pneumothorax is seen. The skeletal structures ar e osteopenic. The bony thorax is grossly intact. IMPRESSION: 1. Cardiomegaly evidence of congestive failure. 2. Multifocal bilateral airspace opacities likely represent pulmonary edema, and this is similar to y dominguez. Correlate clinically for evidence of a superimposed pneumonia. Radiographic follow-up to re solution is recommended. 3. Layering pleural effusions with dependent consolidation. ACT 112: Negative or not required by law. Electronically signed by: Patel Qiu M.D. 08/11/2023 6:55 AM
[2023-08-11] MEDS: FUROSEMIDE INJ 20 MG/2 ML VIAL IV SCH (08:15)
--- NOTE | 2023-08-11 08:55 | Critical Care Progress Note ---
Date of Service August 11, 2023 Assessment & Plan (1) Aspiration pneumonia: Plan: Chest x-ray today demonstrates worsening pulmonary congestion and bibasilar infiltrates. Will obtain procalcitonin and blood cultures. Start mucociliary clearance with hypertonic saline and percussive vest therapy. Low threshold for CT of the chest to further evaluate the parenchymal abnormalities and to evaluate for pulmonary embolism. Patient at high risk for requiring reintubation if unable to protect her airway or hypoxemia worsens. Patient was given 20 mg of IV Lasix earlier today due to volume overload. (2) Severe sepsis: Plan: Continue with broad-spectrum antibiotics. Will check MRSA screen. If positive, will start vancomycin. (3) Weak cough: Plan: Patient with very weak cough which is leading to more aspiration. Will continue efforts at mucociliary clearance. (4) Constipation: Plan: Continue enemas as able to help promote a bowel movement. Surgery on board and following. Plan Thank you for the consult. Will follow. Admission and Anticipated Discharge Date Admission Date: August 06, 2023 Supervising Physician Co-Signing Physician Notes 72-year-old female with history of severe psychiatric illness, constipation and dementia who presented to the hospital with acute hypoxic respiratory failure and severe constipation. ICU was reconsulted on the night of 08/10/2023 due to ongoing delirium and hypoxia. Neurologic: Patient currently receiving Precedex infusion to help with agitation and delirium. Can use as needed antipsychotics. Patient with history of dementia and psychosis. Pulmonary: Patient currently on BiPAP support to help with ventilation and hypoxia. Chest x-ray consistent with diffuse pulmonary infiltrates and multifocal pneumonia. Patient receiving as needed diuresis. Patient remains tachypneic. Low threshold for intubation at this time given worsening hypoxemia. ABG from midnight reveals normal pH. She does seem to have respiratory alkalosis with mild metabolic acidosis. This was on high flow. Cardiovascular: Echo 08/07/2023 with an EF of 50 to 55%. Mild mitral regurgitation. Maintain maps above 65 mmHg. Gastrointestinal: Patient presented to the hospital with severe constipation, but fortunately has had a number of bowel movements since starting suppositories and lactulose. She has remained n.p.o. and has had very little nutrition since her hospital admission. Will need to consider placement of NG tube for nutrition or if the patient becomes intubated, will place OG tube and start enteral feeds. Renal: Her I/Os are +11 L since admission. Her creatinine has remained stable at 0.53. She remains severely hypokalemic to 2.9. Replacing electrolytes as able. Infectious disease: Procalcitonin elevated on 08/10/2023 to 35. Cultures negative to date with repeat blood cultures from 08/10/2023 pending. Antibiotics transitioned to meropenem 08/10/2023. Vancomycin discontinued as MRSA screen was negative. Suspect source is multifocal pneumonia. Hematologic: No significant issues at present. Patient with chronic anemia. Endocrine: TSH elevated to 8.6. Recheck TSH today. Patient chronically on levothyroxine 50 mcg daily which is currently on hold given that she is not able to take p.o. Will need to consider IV levothyroxine. Maintain euglycemia. Lines and tubes: Peripheral IVs and Hou cath VTE prophylaxis: Heparin 5000 units subcu every 8 CODE STATUS: Full Family at bedside: No POA is currently available. Case management assisting with guardianship. Disposition: ICU I have personally spent 48 minutes of critical care time in the direct management of this patient. This is a life/limb threatening event. This includes time spent evaluating patient, direct bedside care, chart review, placing orders, interpretation of diagnostic studies, discussion with consultants, kiya ludwig, and family members, as well as other required patient management activities. This time is exclusive of all separately billable procedures, and teaching time and separate from and in addition to any other critical care service time. Thank you for allowing us to participate in the care of this patient. Subjective Patient has been requiring escalating amounts of oxygen support and is now on BiPAP. She has also been severely delirious and pulling out IV lines. She was on a Precedex infusion and pulled out the IV which then infiltrated in her right arm. A new IV was established by the IV team in her left arm and she now has Precedex infusing which is helping with her agitation and delirium. Otherwise review of systems is unobtainable from the patient given her severe confusion. Review of Systems Review of Systems: Unobtainable due to cognitive status Physical Exam Physical Exam: Constitutional: Patient appears to be of their stated age. Anxious appearing. Eyes: Pupils are equal round and reactive to light. Conjunctivae are normal. Anicteric sclera. Ears nose, mouth and throat: Mallampati class 2. Normal posterior oropharynx. Uvula is midline. Neck: Trachea is midline. Visual inspection is normal. Respiratory: Diffuse rhonchi, right greater than left. Increased work of breathing. Cardiovascular: Regular rate and rhythm. No murmurs. No edema. Gastrointestinal: Soft, nontender, nondistended. Bowel sounds present. Musculoskeletal: No cyanosis. Patient is able to move all extremities. Strength is 5 out of 5 in the upper and lower extremities. Skin: No rashes, warm dry and intact. Neurologic: No obvious focal neurological deficits seen. Psychiatric: Disoriented and anxious. Unknown baseline. Results & Data Results & Data Vital Signs (Past 12 Hours) Vital Signs Temp Pulse Pulse Resp BP Pulse Ox O2 Del Method 08/11/23 08:19 93 H 36 H 94 08/11/23 08:19 93 H 36 H 94 BiPAP 08/11/23 05:31 85 36 H 95 BiPAP 08/11/23 05:00 139/80 08/11/23 05:00 82 34 H 95 BiPAP 08/11/23 04:45 84 35 H 95 08/11/23 04:08 36.7 C 08/11/23 04:00 129/74 08/11/23 04:00 81 29 H 95 BiPAP 08/11/23 03:36 82 31 H 95 BiPAP 08/11/23 03:00 84 28 H 94 BiPAP 08/11/23 03:00 132/76 08/11/23 02:00 120/81 08/11/23 02:00 85 29 H 94 BiPAP 08/11/23 01:00 81 33 H 98 BiPAP 08/11/23 01:00 122/77 08/11/23 00:58 82 38 H 98 BiPAP 08/11/23 00:58 127/77 08/11/23 00:58 82 127/77 08/11/23 00:57 82 141/81 H 08/11/23 00:45 82 34 H 95 08/11/23 00:28 141/81 H 08/11/23 00:28 78 33 H 96 High Flow Nasal Cannula 08/11/23 00:01 169/104 H 08/11/23 00:01 102 H 34 H 86 L High Flow Nasal Cannula 08/11/23 00:00 87 08/10/23 23:00 36.6 C 08/10/23 22:39 146/93 H 08/10/23 22:39 87 25 H 98 High Flow Nasal Cannula 08/10/23 22:18 85 28 H 95 High Flow Nasal Cannula 08/10/23 22:18 136/85 08/10/23 22:13 102 H 29 H 95 High Flow Nasal Cannula 08/10/23 22:13 154/91 H 08/10/23 22:12 102 H 154/91 H 08/10/23 22:00 106 H 28 H 92 High Flow Nasal Cannula 08/10/23 22:00 173/102 H 08/10/23 21:00 146/80 H 08/10/23 21:00 94 H 26 H 93 O2 Flow Rate FiO2 08/11/23 08:19 40 08/11/23 08:19 40 08/11/23 05:31 40 08/11/23 05:00 08/11/23 05:00 40 08/11/23 04:45 50 08/11/23 04:08 08/11/23 04:00 08/11/23 04:00 40 08/11/23 03:36 40 08/11/23 03:00 40 08/11/23 03:00 08/11/23 02:00 08/11/23 02:00 40 08/11/23 01:00 50 08/11/23 01:00 08/11/23 00:58 50 08/11/23 00:58 08/11/23 00:58 08/11/23 00:57 08/11/23 00:45 50 08/11/23 00:28 08/11/23 00:28 50 100 08/11/23 00:01 08/11/23 00:01 40 100 08/11/23 00:00 08/10/23 23:00 08/10/23 22:39 08/10/23 22:39 40 100 08/10/23 22:18 40 100 08/10/23 22:18 08/10/23 22:13 40 100 08/10/23 22:13 08/10/23 22:12 08/10/23 22:00 40 100 08/10/23 22:00 08/10/23 21:00 08/10/23 21:00 Coding Level of Care Code 87930 CRITICAL CARE 1ST 30-74M Diagnoses Aspiration pneumonia J69.0 Laterality: bilateral Severe sepsis A41.9; R65.20 Weak cough R05.8 Constipation K59.00 (1) Aspiration pneumonia Laterality: bilateral
--- NOTE | 2023-08-11 09:09 | Hospitalist Progress Note ---
Date of Service August 11, 2023 Assessment & Plan (1) Stercoral colitis: (2) Constipation, chronic: (3) Full code status: (4) Aspiration pneumonia: (5) On mechanically assisted ventilation: (6) Acute respiratory failure: Plan Pt is a 72yoF with PMHx significant for HTN, HLD, DMII, hypothyroidism, Hx of brain tumor s/p partial resection, schizophrenia, prior migraine, chronic anemia, recurrent UTIs, urinary incontinence and urinary bladder diverticulum presented after being found down and minimally responsive at home. Patient was admitted to the ICU for management and evaluation of septic shock. Acute respiratory failure requiring mechanical ventilation On admission, was secondary to severe sepsis above, requiring intubation Vent management per ICU, pt extubated on 08/08 On Aug 09- pt developed acute respiratory failure once more - Pt with increasing oxygen requirement. - Chest xray with bilateral opacities, pneumonia (?possible aspiration), procalcitonin elevated >34. -Was on hi emy oxygen, pt in restraints. -Pulmonology previously consulted- appreciate recs. -Diuresing with IV Lasix. -Transferred to ICU once more on 08/11 Sputum Cx pending-expectorated or suctioned Follow blood cultures Consider CTA PE protocol with further worsening On antibiotics above, currently meropenem Continue hypertonic saline nebules, percussive vest therapy. Follow speech eval for aspiration concern once more stable 08/11- pt transferred overnight to the ICU for worsening hypoxia and delirium, concern for ARDS, currently on precedex and bipap. Low threshold for intubation once more. Septic shock-POA Pt was hypotensive on admission, requiring ICU admission Required pressor support which has since been discontinued. UA repeatedly without signs of infection, urine Cx with NGTD Chest XR with no signs of infection, biofire negative CT abd/pelvis with suggestion of stercoral colitis, bowel perforation less likely/ruled out Blood Cx x1 grew alpha strep, ?contaminant Was treated with Vanc/Zosyn. 08/10- pt with increased oxygen requirement, chest xray with noted possible pneumonia (also fluid overload), procal newly elevated. Pulmonology consulted- pt switched to meropenem for antibiotic coverage. Repeat Blood Cultures pending. 08/11- pt transferred to the ICU overnight for worsening hypoxia and delirium. Currently febrile, on meropenem, BP in normal limits. Appreciate ICU recs. 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 Frequent reorientation, avoid sedating medications MRI brain as per ICU. 08/11-pt currently on precedex FULL CODE STATUS On Aug 10, 2023, advised by CM that there is a faith contact who might be able to weigh in on code discussion given pt has no known family with whom she is in contact to assist with her decisions during critical times. Listed contact in the chart is a Caregiver from an agency and does not want to be responsible for making those decisions for the pt. Mr. Weston Archibald [phone] was contacted about 4:45PM as advised by Case Management. He states that his only contact with the patient was visiting on behalf of the faith. Would not describe himself as a friend. Notes that he was advised by someone in the medical field that this should likely go to the Ethics committee. States that he is concerned about what the law states in terms of being able to speak on her behalf. Does note in his conversations with the patient that she has always wanted to be well and "go home" (he makes the distinction not her heavenly home) so he would assume that she wants heroic measures done. States that he has been at [facility] in the past and has visited pts who have been here for months and states that he believes this is what June would want as well. Next steps currently pending. Appreciate CM assistance. Hypothyroidism Levothyroxine resumed, continue Hypertension Held home antihypertensive while patient was on vasopressors BP currently trending back up In setting of restart of pt's clozapine which is needed and has major side effects noted above of hypotension and bradycardia, will resume home antihypertensives once pt has been titrated up to home dose of clozapine. HLD resume statin DMII Hold home metformin ICU hyperglycemia protocol Recurrent UTI Continue home methenamine Recurrent migraines Continue home riboflavin Chronic normocytic anemia Hgb baseline ~10, stable Monitor CBC Diet: Clear liquids DVT prophylaxis: Heparin SQ Dispo: PT/OT ordered, pt has caregivers CODE STATUS: Pt's listed contact in chart was contacted on 08/09 to discuss code status. She states that she works with an agency and is pt's caregiver but is not equipped nor does she want the responsibility of making life/ decisions for pt. She states pt has no POA and is estranged from living family, a sister with whom she was in contact passed recently. Admission and Anticipated Discharge Date Admission Date: August 06, 2023 Subjective pt was seen in the AM. laying in bed, bipap on face Review of Systems Review of Systems: Unobtainable due to cognitive status and Other (pt on bipap) Physical Exam Physical Exam: General: Laying in bed with bipap on Psych: mood and affect could not be determined Neuro: laying in bed with bipap on HEENT: NC/AT CV: RRR Resp:no increased effort of breathing Abdomen: soft Extremities: edema in lower extremities bilaterally. Results & Data Results & Data Vital Signs (Past 12 Hours) Vital Signs Temp Pulse Pulse Resp BP Pulse Ox O2 Del Method 08/11/23 08:19 93 H 36 H 94 08/11/23 08:19 93 H 36 H 94 BiPAP 08/11/23 05:31 85 36 H 95 BiPAP 08/11/23 05:00 139/80 08/11/23 05:00 82 34 H 95 BiPAP 08/11/23 04:45 84 35 H 95 08/11/23 04:08 36.7 C 08/11/23 04:00 129/74 08/11/23 04:00 81 29 H 95 BiPAP 08/11/23 03:36 82 31 H 95 BiPAP 08/11/23 03:00 84 28 H 94 BiPAP 08/11/23 03:00 132/76 08/11/23 02:00 120/81 08/11/23 02:00 85 29 H 94 BiPAP 08/11/23 01:00 81 33 H 98 BiPAP 08/11/23 01:00 122/77 08/11/23 00:58 82 38 H 98 BiPAP 08/11/23 00:58 127/77 08/11/23 00:58 82 127/77 08/11/23 00:57 82 141/81 H 08/11/23 00:45 82 34 H 95 08/11/23 00:28 141/81 H 08/11/23 00:28 78 33 H 96 High Flow Nasal Cannula 08/11/23 00:01 169/104 H 08/11/23 00:01 102 H 34 H 86 L High Flow Nasal Cannula 08/11/23 00:00 87 08/10/23 23:00 36.6 C 08/10/23 22:39 146/93 H 08/10/23 22:39 87 25 H 98 High Flow Nasal Cannula 08/10/23 22:18 85 28 H 95 High Flow Nasal Cannula 08/10/23 22:18 136/85 08/10/23 22:13 102 H 29 H 95 High Flow Nasal Cannula 08/10/23 22:13 154/91 H 08/10/23 22:12 102 H 154/91 H 08/10/23 22:00 106 H 28 H 92 High Flow Nasal Cannula 08/10/23 22:00 173/102 H O2 Flow Rate FiO2 08/11/23 08:19 40 08/11/23 08:19 40 08/11/23 05:31 40 08/11/23 05:00 08/11/23 05:00 40 08/11/23 04:45 50 08/11/23 04:08 08/11/23 04:00 08/11/23 04:00 40 08/11/23 03:36 40 08/11/23 03:00 40 08/11/23 03:00 08/11/23 02:00 08/11/23 02:00 40 08/11/23 01:00 50 08/11/23 01:00 08/11/23 00:58 50 08/11/23 00:58 08/11/23 00:58 08/11/23 00:57 08/11/23 00:45 50 08/11/23 00:28 08/11/23 00:28 50 100 08/11/23 00:01 08/11/23 00:01 40 100 08/11/23 00:00 08/10/23 23:00 08/10/23 22:39 08/10/23 22:39 40 100 08/10/23 22:18 40 100 08/10/23 22:18 08/10/23 22:13 40 100 08/10/23 22:13 08/10/23 22:12 08/10/23 22:00 40 100 08/10/23 22:00 (4) Aspiration pneumonia Laterality: bilateral
[2023-08-11] MEDS: FUROSEMIDE 40 MG/4 ML VIAL IV ONE ×2 (09:59→14:23)
[2023-08-11 11:20] LABS: Thyroid Stimulating Hormone 1.287 uIu/ml (0.300-4.500)
--- NOTE | 2023-08-11 11:52 | Surgery Progress Note ---
Date of Service August 11, 2023 Assessment & Plan (1) Constipation, chronic: Plan: pt transferred to ICU for worsening respiratory status CXR with pulmonary edema, concern for pneumonia, + b/l effusions WBC 8 Abdomen soft. does not appear tender to palpation per rn cardiovascular icu has been passing multiple BM's. can continue to stimulate from below as needed as above. no indication for surgical intervention. will continue to monitor from the background. Admission and Anticipated Discharge Date Admission Date: August 06, 2023 Subjective Patient seen in ICU. Wearing BiPap. Not conversant at this time, eyes close. Physical Exam Physical Exam: on Bipap . confused Results & Data Vital Signs (Past 12 Hours) Vital Signs Temp Pulse Pulse Resp BP Pulse Ox O2 Del Method 08/11/23 11:42 100.0 F H 08/11/23 11:30 75 29 H 96 BiPAP 08/11/23 11:00 74 29 H 96 08/11/23 11:00 135/75 08/11/23 10:30 78 31 H 95 BiPAP 08/11/23 10:01 119/74 08/11/23 10:01 75 34 H 95 08/11/23 10:00 76 31 H 95 08/11/23 09:30 84 32 H 95 BiPAP 08/11/23 09:25 92 H 38 H 93 08/11/23 09:25 177/97 H 08/11/23 09:00 100.4 F H 08/11/23 09:00 75 25 H 94 08/11/23 08:30 81 32 H 94 08/11/23 08:19 93 H 36 H 94 08/11/23 08:19 93 H 36 H 94 BiPAP 08/11/23 08:00 83 32 H 94 08/11/23 07:37 87 37 H 93 08/11/23 07:37 134/97 08/11/23 07:30 89 40 H 93 08/11/23 07:00 142/81 H 08/11/23 07:00 86 37 H 94 08/11/23 06:30 88 35 H 93 08/11/23 06:00 137/86 08/11/23 06:00 85 35 H 94 08/11/23 05:31 85 36 H 95 BiPAP 08/11/23 05:00 139/80 08/11/23 05:00 82 34 H 95 BiPAP 08/11/23 04:45 84 35 H 95 08/11/23 04:08 98.1 F 08/11/23 04:00 129/74 08/11/23 04:00 81 29 H 95 BiPAP 08/11/23 03:36 82 31 H 95 BiPAP 08/11/23 03:00 84 28 H 94 BiPAP 08/11/23 03:00 132/76 08/11/23 02:00 120/81 08/11/23 02:00 85 29 H 94 BiPAP 08/11/23 01:00 81 33 H 98 BiPAP 08/11/23 01:00 122/77 08/11/23 00:58 82 38 H 98 BiPAP 08/11/23 00:58 127/77 08/11/23 00:58 82 127/77 08/11/23 00:57 82 141/81 H 08/11/23 00:45 82 34 H 95 08/11/23 00:28 141/81 H 08/11/23 00:28 78 33 H 96 High Flow Nasal Cannula 08/11/23 00:01 169/104 H 08/11/23 00:01 102 H 34 H 86 L High Flow Nasal Cannula 08/11/23 00:00 87 O2 Flow Rate FiO2 08/11/23 11:42 08/11/23 11:30 40 08/11/23 11:00 08/11/23 11:00 08/11/23 10:30 40 08/11/23 10:01 08/11/23 10:01 08/11/23 10:00 08/11/23 09:30 40 08/11/23 09:25 08/11/23 09:25 08/11/23 09:00 08/11/23 09:00 08/11/23 08:30 08/11/23 08:19 40 08/11/23 08:19 40 08/11/23 08:00 08/11/23 07:37 08/11/23 07:37 08/11/23 07:30 08/11/23 07:00 08/11/23 07:00 08/11/23 06:30 08/11/23 06:00 08/11/23 06:00 08/11/23 05:31 40 08/11/23 05:00 08/11/23 05:00 40 08/11/23 04:45 50 08/11/23 04:08 08/11/23 04:00 08/11/23 04:00 40 08/11/23 03:36 40 08/11/23 03:00 40 08/11/23 03:00 08/11/23 02:00 08/11/23 02:00 40 08/11/23 01:00 50 08/11/23 01:00 08/11/23 00:58 50 08/11/23 00:58 08/11/23 00:58 08/11/23 00:57 08/11/23 00:45 50 08/11/23 00:28 08/11/23 00:28 50 100 08/11/23 00:01 08/11/23 00:01 40 100 08/11/23 00:00 PG Care Time/CCT Total # of Minutes Spent Total Time Spent with Patient: Total time spent is greater than 50% in coordination of care (as documented) at patient's floor/unit and/or counseling patient: Coding Level of Care Code 09254 SUB INP/OBS CARE 1/25MIN Diagnoses Constipation, chronic K59.09
[2023-08-11 12:41] LABS: BUN Creatinine Ratio 24.6 (10-20); Calcium 7.2 mg/dl (8.6-10.3); Creatinine Clr Calc Pharmacy 80.7 ml/min; Est GFR (African American) 106.6 ml/min; Potassium 4.3 mmol/L (3.5-5.1)
[2023-08-11] MEDS ORDERED: STAT IV/IM STA (14:15)
[2023-08-11] MEDS: CALCIUM GLUCONATE 10% 1,000 MG in SODIUM CHLOR 0.9% MINI-B 50 ML IV SCH (14:28)
--- NOTE | 2023-08-11 17:28 | Procedure Note ---
Procedure Note Date of Service August 11, 2023 Supervising Physician Co-Signing Physician Notes INTUBATION PROCEDURE NOTE: Dr. Jeff King A time-out was completed verifying correct patient, procedure, site, positioning. Patient was evaluated and required intubation for hypoxemic respiratory failure and encephalopathy. Sedative agent used: 20 mg Paralysis agent used: 0 Emergent consent was implied given patients rapidly declining clinical status and need for airway protection. Number of attempts: 1 Grade view: Not applicable The patient was prepared in the appropriate fashion. Sedation was achieved utilizing 20 mg of etomidate and 100 mcg of fentanyl. The patient was easily ventilated using [id number] to achieve adequate oxygenation. A 7.5 [place] endotracheal tube was placed under GlideScope guidance to 25 cm at the lip. The stylette was removed and balloon was inflated with 10mL of air. Appropriate Colorimetric change was appreciated. Bilateral breath sounds were heard without air sounds in the abdomen. Post Intubation Chest X-ray ordered. Patient tolerated the procedure well and there were no immediate complications. Coding CPT Codes Resuscitation - Resuscitation: 81228 Endotracheal Intubation, emergency ([id number]) [facility] [place] Codes (Charges) Resuscitation Resuscitation: 22193 Endotracheal Intubation, emergency
[2023-08-11] MEDS: ETOMIDATE 2 MG/ML 20 ML VIAL IV ONE ×2 (17:48→17:49)
[2023-08-11] MEDS: fentaNYL citrate 2,500 MCG/250 ML BAG IV SCH (17:48)
[2023-08-11] MEDS: fentaNYL citrate 2,500 MCG/250 ML BAG IV ONE (17:49)
[2023-08-11] MEDS: ROCURONIUM BROMIDE 10 MG/ML 5 ML VIAL IV ONE (17:49)
[2023-08-11] MEDS: ROCURONIUM BROMIDE 10 MG/ML 5 ML VIAL IV STA (17:49)
--- NOTE | 2023-08-11 18:09 | Procedure Note ---
Procedure Note: Bronchoscopy Procedure PROCEDURE PERFORMED: Fiberoptic bronchoscopy with aspiration of secretions COMPLICATIONS: None. INDICATION: Severe hypoxemia and mucous plugging PROCEDURE: Procedure was done emergently after emergent intubation due to refractory hypoxemia and elevated peak pressure suspicious for mucous plugging. Consent was obtained as the patient was intubated and sedated the procedure was emergently performed. Timeout was performed directly prior to the procedure. Patient with hyperoxygenated on the ventilator with 100% FiO2. Endotracheal tube adapter was attached. Bronchoscope was inserted via the endotracheal tube. The endotracheal tube was appropriately positioned above the vadim. The ca dona appeared sharp. There were thick mucopurulent secretions emanating from the right lower lobe. Approximately 20 mm of saline was instilled into the right lower lobe. Saline and secretions were suctioned free and sent for culture and cell count. I inspected the bilateral tracheobronchial tree with no lesions identified. No significant bleeding seen. Again, mucoid impaction was noted in the right lower lobe. Bronchoscope was withdrawn. Recommendations: Follow cultures from right lower lobe bronchoscopic washings. [facility] [place] ([place]arges) Pulmonary/Thoracic Procedure 1: Pulmonary and Thoracic: 98502 Dx bronchoscopy/wash
--- NOTE | 2023-08-11 18:18 | XRay Report ---
SINGLE VIEW CHEST CLINICAL HISTORY: Respiratory failure. Intubation FINDINGS: 2 AP, portable, supine chest radiographs are compared to study performed earlier the same d ay 08/11/2023. An endotracheal tube has been placed. The tip projects approximately 4 cm above the car willow. An enteric tube has been placed. The tip projects below the diaphragm over the mid to distal sto mach. The heart is enlarged noting atherosclerotic calcification of the thoracic aorta. There is pulm onary vascular congestion. Multifocal bilateral airspace opacities likely represent pulmonary edema. There are layering pleural effusions with dependent consolidation. No pneumothorax is seen. The skele brian structures are osteopenic. The bony thorax is grossly intact. IMPRESSION: 1. Endotracheal and enteric tube placement as above. 2. Cardiomegaly with evidence of congestive failure. 3. Multifocal bilateral airspace opacities likely represent pulmonary edema, and this has not appreci ably changed from today's earlier examination. Correlate clinically for evidence of a superimposed pn eumonia. Radiographic follow-up to resolution is recommended. 4. Layering pleural effusions with dependent consolidation. ACT 112: Negative or not required by law. Electronically signed by: Patel Qiu M.D. 08/11/2023 6:16 PM
[2023-08-11 18:46] LABS: iSTAT Allen Test Pass; iSTAT Art Bld Gas pCO2 Correct 38 mmHg (35-46); iSTAT Art Bld Gas pH Corrected 7.408 (7.35-7.45); iSTAT Arterial Blood Gas HCO3 24 meg/L (19-24); iSTAT Arterial Blood Gas pCO2 38 mmHg (35-46); iSTAT Arterial Blood Gas pH 7.41 (7.35-7.45); iSTAT Arterial Blood Gas pO2 34 mmHg (80-95); iSTAT Arterial Blood Gas pO2 C 34; iSTAT Carbon Dioxide 25 mmol/L (24-31); iSTAT FiO2 50 %; iSTAT Hematocrit 27 % (37-47); iSTAT Hemoglobin 9.2 g/dl (12.0-16.0); iSTAT Potassium 2.7 mmol/L (3.3-5.0); iSTAT Site R Radial; iSTAT Sodium 142 mmol/L (135-144)
[2023-08-11 21:56] LABS: BUN Creatinine Ratio 26.2 (10-20); Calcium 7.8 mg/dl (8.6-10.3); Creatinine Clr Calc Pharmacy 70.8 ml/min; Est GFR (African American) 102.1 ml/min; Est GFR (Non-African American) 88.1 ml/min
[2023-08-11] MEDS: POTASSIUM CHLORIDE 20 MEQ/15 ML UDC PO STA (22:56)
[2023-08-11] MEDS: INSULIN ASPART PER UNIT CHARGE SC SCH (23:59)
[2023-08-12] MEDS: fentaNYL BOLUS from BAG IV PRN (00:27)
[2023-08-12] MEDS: MIDAZOLAM HCL 1 MG/ML 2ML VIAL IV STA (00:48)
[2023-08-12] MEDS: MIDAZOLAM HCL 1 MG/ML 2ML VIAL ONE (00:56)
[2023-08-12] MEDS: FUROSEMIDE INJ 20 MG/2 ML VIAL IV ONE (01:23)
[2023-08-12 04:39] LABS: Hematocrit (blood only) 29.6 % (37.0-47.0); Mean Corpuscular Hemoglobin 28.9 pg (25.0-34.0); Mean Corpuscular Hgb Conc 33.8 g/dL (32.0-36.0); Mean Corpuscular Volume 85.5 fL (80.0-100.0); Mean Platelet Volume 11.2 fL (9.4-12.4); Platelet Count 153 K/uL (130-400); RDW Coefficient of Variation 16.9 % (11.5-14.5); RDW Standard Deviation 52.8 fL (36.4-46.3); Red Blood Count 3.46 M/uL (4.20-5.40); White Blood Count 10.07 K/ul (4.8-10.8)
[2023-08-12 04:54] LABS: Albumin Globulin Ratio 1.2 (0.9-2); Albumin Level 2.6 gm/dl (3.4-5.0); Bilirubin,Total 0.5 mg/dl (0.2-1.0); Calcium 7.6 mg/dl (8.6-10.3); Creatinine Clr Calc Pharmacy 66.7 ml/min; Est GFR (African American) 100.1 ml/min; Est GFR (Non-African American) 86.4 ml/min; Globulin 2.1 gm/dl (2.5-4.0); Magnesium 1.6 mg/dl (1.7-2.4); Phosphorus 2.4 mg/dl (2.5-4.9); Potassium 3.4 mmol/L (3.5-5.1); Total Protein 4.7 gm/dl (6.0-8.3)
[2023-08-12 05:00] LABS: Basophils # (auto) 0.02 K/uL (0.00-0.20); Basophils % (auto) 0.2 %; Echinocytes 1+; Immature Granulocytes # (auto) 0.17 K/uL (0.01-0.20); Immature Granulocytes % (auto) 1.7 %; Lymphocytes # (auto) 1.11 K/uL (1.20-3.40); Monocytes # (auto) 0.95 K/uL (0.11-0.59); Monocytes % (auto) 9.4 %; Neutrophils # (auto) 7.82 K/uL (1.40-6.50); Neutrophils % (auto) 77.7 %; Polychromasia 1+
[2023-08-12] MEDS ORDERED: POTASSIUM PHOS 3 MMOL/1 ML INFUSION IV STA (05:09)
[2023-08-12] MEDS: MAGNESIUM SULFATE / D5W 1 GM/100 ML BAG IV SCH (05:24)
[2023-08-12] MEDS: POTASSIUM PHOSPHATE 30 MMOL in SODIUM CHLORIDE 0.9% 500 ML IV ONE (05:37)
[2023-08-12 05:43] LABS: iSTAT Allen Test Pass; iSTAT Art Bld Gas pCO2 Correct 31 mmHg (35-46); iSTAT Art Bld Gas pH Corrected 7.507 (7.35-7.45); iSTAT Arterial Blood Gas HCO3 24 meg/L (19-24); iSTAT Arterial Blood Gas pCO2 30 mmHg (35-46); iSTAT Arterial Blood Gas pH 7.53 (7.35-7.45); iSTAT Arterial Blood Gas pO2 70 mmHg (80-95); iSTAT Arterial Blood Gas pO2 C 76; iSTAT Carbon Dioxide 25 mmol/L (24-31); iSTAT FiO2 40 %; iSTAT Hematocrit 27 % (37-47); iSTAT Hemoglobin 9.2 g/dl (12.0-16.0); iSTAT Site R Radial; iSTAT Sodium 144 mmol/L (135-144)
[2023-08-12] MEDS: THIAMINE HCL 100 MG in SYRINGE 9 ML IV SCH (08:36)
--- NOTE | 2023-08-12 08:50 | XRay Report ---
XR chest 1V portable CLINICAL HISTORY: Respiratory failure. COMPARISON STUDY: Chest radiograph August 11, 2023 at 5:52 PM. FINDINGS: Tip of endotracheal tube is 4.6 cm above the vadim. Tip of nasogastric tube is within the body of the stomach. There is no pneumothorax. Small bilateral pleural effusions persist. Interstitia l thickening and extensive bilateral airspace opacities have mildly improved. Cardiomediastinal silho uette is stable. IMPRESSION: 1. Satisfactory positioning of the endotracheal and nasogastric tubes. 2. Slight improvement in extensive airspace opacities and interstitial thickening which may reflect p ulmonary edema or multifocal pneumonia. ACT 112: Negative or not required by law. Electronically signed by: Lukas Law M.D. 08/12/2023 8:49 AM
--- NOTE | 2023-08-12 08:55 | Critical Care Progress Note ---
Date of Service August 12, 2023 Assessment & Plan (1) Aspiration pneumonia: (2) Severe sepsis: (3) Weak cough: (4) Constipation: (5) Volume overload: (6) On mechanically assisted ventilation: Plan 72-year-old female with history of severe psychiatric illness, constipation and dementia who presented to the hospital with acute hypoxic respiratory failure and severe constipation. ICU was reconsulted on the night of 08/10/2023 due to ongoing delirium and hypoxia. Neurologic: Patient currently intubated and sedated. On Precedex and fentanyl. RASS goal - 1. She has a history of schizophrenia on Clozaril therapy which is currently on hold. Pulmonary: Patient reintubated 08/11/2023 due to hypoxemic respiratory failure and increased work of breathing. Patient currently requiring minimal vent settings. Will hold on extubation today until she is further diuresed. Cardiovascular: Echo 08/07/2023 with an EF of 50 to 55%. Mild mitral regurgitation. Maintain maps above 65 mmHg. Sinus bradycardia on telemetry related to Precedex. Gastrointestinal: Patient presented to the hospital with severe constipation, but fortunately has had a number of bowel movements since starting suppositories and lactulose. She has remained n.p.o. and has had very little nutrition since her hospital admission. Will need to start tube feeds today. Continue Protonix. Renal: She still remains profoundly volume overloaded. Continue diuresis as able. Replace electrolytes as needed. Renal function stable. Infectious disease: Procalcitonin elevated on 08/10/2023 to 35. Repeat procalcitonin today is pending. Bronchoscopy cultures from 08/11/2023 pending. Antibiotics transition ed to meropenem 08/10/2023. Vancomycin discontinued as MRSA screen was negative. Suspect source is multifocal pneumonia. Hematologic: No significant issues at present. Patient with chronic anemia. Endocrine: TSH elevated to 8.6. Repeat TSH is normalized. Patient chronically on levothyroxine 50 mcg daily which is currently on hold given that she is not able to take p.o. Will need to consider IV levothyroxine. Maintain euglycemia. Lines and tubes: Peripheral IVs and Hou cath VTE prophylaxis: Lovenox 40 mg daily subcu. CODE STATUS: Full Family at bedside: No POA is currently available. Case management assisting with guardianship. Disposition: ICU I have personally spent 44 minutes of critical care time in the direct management of this patient. This is a life/limb threatening event. This includes time spent evaluating patient, direct bedside care, chart review, placing orders, interpretation of diagnostic studies, discussion with consultants, patient, and family members, as well as other required patient management activities. This time is exclusive of all separately billable procedures, and teaching time and separate from and in addition to any other critical care service time. Thank you for allowing us to participate in the care of this patient. Admission and Anticipated Discharge Date Admission Date: August 06, 2023 Subjective Patient seen and examined. Remains sedated. She is intubated. No significant overnight events. She received Lasix overnight and diuresed well. Review of Systems Review of Systems: All systems reviewed & are unremarkable except as noted in HPI & below Physical Exam Physical Exam: Constitutional: Intubated and sedated. No apparent distress Eyes: Pupils are equal round and reactive to light. Conjunctivae are normal. Anicteric sclera. Ears nose, mouth and throat: Endotracheal tube in place. Neck: Trachea is midline. Visual inspection is normal. Respiratory: Diffuse rhonchi, right greater than left. Increased work of breathing. Cardiovascular: Regular rate and rhythm. No murmurs. No edema. Gastrointestinal: Soft, nontender, nondistended. Bowel sounds present. Musculoskeletal: No cyanosis. Patient is able to move all extremities. Strength is 5 out of 5 in the upper and lower extremities. Skin: No rashes, warm dry and intact. Neurologic: No obvious focal neurological deficits seen. Psychiatric: Unable to assess. Results & Data Results & Data Vital Signs (Past 12 Hours) Vital Signs Temp Pulse Resp BP Pulse Ox O2 Del Method FiO2 08/12/23 07:12 55 L 22 97 40 08/12/23 06:30 38.1 C H 59 L 21 97 Mechanical Vent 40 08/12/23 06:30 140/79 08/12/23 06:00 38.2 C H 60 19 97 Mechanical Vent 40 08/12/23 06:00 125/70 08/12/23 05:30 38.3 C H 57 L 18 97 Mechanical Vent 40 08/12/23 05:30 132/66 08/12/23 05:01 38.3 C H 56 L 22 97 Mechanical Vent 40 08/12/23 05:01 135/67 08/12/23 05:00 38.3 C H 56 L 22 97 Mechanical Vent 40 08/12/23 04:30 38.3 C H 56 L 22 97 Mechanical Vent 40 08/12/23 04:30 136/68 08/12/23 04:00 38.2 C H 55 L 22 97 Mechanical Vent 40 08/12/23 04:00 140/68 08/12/23 03:45 56 L 22 97 40 08/12/23 03:30 38.2 C H 56 L 22 97 Mechanical Vent 40 08/12/23 03:30 130/67 08/12/23 03:00 38.2 C H 56 L 22 97 Mechanical Vent 40 08/12/23 03:00 130/70 08/12/23 02:30 129/70 08/12/23 02:30 38.2 C H 56 L 22 96 Mechanical Vent 40 08/12/23 02:00 38.3 C H 56 L 22 96 40 08/12/23 02:00 116/60 08/12/23 01:30 106/58 L 08/12/23 01:30 59 L 22 95 Mechanical Vent 40 08/12/23 01:00 63 22 97 Mechanical Vent 40 08/12/23 01:00 114/63 08/12/23 00:39 76 22 96 Mechanical Vent 40 08/12/23 00:39 116/63 08/12/23 00:31 116 H 24 95 Mechanical Vent 50 08/12/23 00:31 163/103 H 08/12/23 00:30 118 H 35 H 92 Mechanical Vent 50 08/12/23 00:00 37.8 C H 08/12/23 00:00 122/64 08/12/23 00:00 56 L 22 97 Mechanical Vent 50 08/12/23 00:00 57 L 08/11/23 23:30 106/58 L 08/11/23 23:30 58 L 22 96 Mechanical Vent 50 08/11/23 23:14 Mechanical Vent 50 08/11/23 23:00 57 L 22 98 08/11/23 23:00 119/58 L 08/11/23 22:30 57 L 22 98 08/11/23 22:30 122/64 08/11/23 22:25 79 26 H 100 40 08/11/23 22:00 120/66 08/11/23 22:00 61 22 98 Mechanical Vent 50 08/11/23 21:30 122/68 08/11/23 21:30 61 22 97 Mechanical Vent 50 08/11/23 21:00 60 22 98 Mechanical Vent 50 08/11/23 21:00 117/65 Coding Level of Care Code 44368 CRITICAL CARE 1ST 30-74M Diagnoses Aspiration pneumonia J69.0 Laterality: bilateral Severe sepsis A41.9; R65.20 Weak cough R05.8 Constipation K59.00 Volume overload E87.70 On mechanically assisted ventilation Z99.11 (1) Aspiration pneumonia Laterality: bilateral
[2023-08-12] MEDS: POTASSIUM CHLORIDE 20 MEQ/15 ML UDC PO STA (09:58)
[2023-08-12] MEDS: PANTOprazole 40 MG in SYRINGE DAILY IV SCH (10:08)
--- NOTE | 2023-08-12 11:46 | Hospitalist Progress Note ---
Date of Service August 12, 2023 Assessment & Plan (1) Stercoral colitis: (2) Constipation, chronic: (3) Full code status: (4) Aspiration pneumonia: (5) On mechanically assisted ventilation: (6) Acute respiratory failure: Plan Pt is a 72yoF with PMHx significant for HTN, HLD, DMII, hypothyroidism, Hx of brain tumor s/p partial resection, schizophrenia, prior migraine, chronic anemia, recurrent UTIs, urinary incontinence and urinary bladder diverticulum presented after being found down and minimally responsive at home. Patient was admitted to the ICU for management and evaluation of septic shock. Acute respiratory failure requiring mechanical ventilation On admission, was secondary to severe sepsis above, requiring intubation Vent management per ICU, pt extubated on 08/08 On Aug 09- pt developed acute respiratory failure once more - Pt with increasing oxygen requirement. - Chest xray with bilateral opacities, pneumonia (?possible aspiration), procalcitonin elevated >34. -Was on hi emy oxygen, pt in restraints. -Pulmonology previously consulted- appreciate recs. -Diuresing with IV Lasix. -Transferred to ICU once more on 08/11 Transferred back to the ICU on 08/11 -was on bipap and re-intubated on 08/11 -bronch also done on 08/11 with cultures obtained and pending. Noted mucoid impaction in RLL. -on precedex and fentanyl Septic shock-POA Pt was hypotensive on admission, requiring ICU admission Required pressor support which has since been discontinued. UA repeatedly without signs of infection, urine Cx with NGTD Chest XR with no signs of infection, biofire negative CT abd/pelvis with suggestion of stercoral colitis, bowel perforation less likely/ruled out Blood Cx x1 grew alpha strep, ?contaminant Was treated with Vanc/Zosyn. 08/10- pt with increased oxygen requirement, chest xray with noted possible pneumonia (also fluid overload), procal newly elevated. Pulmonology consulted- pt switched to meropenem for antibiotic coverage. Repeat Blood Cultures pending. 08/11- pt transferred to the ICU overnight for worsening hypoxia and delirium. Currently febrile, on meropenem, BP in normal limits. Appreciate ICU recs. 08/12-On meropenem, bronch cx/washings pending Severe constipation Stercoral Colitis CT Abd/pelvis showing significant stool burden on admission On lactulose, received enemas Reportedly pt had many BMs General surgery consulted- appreciate recs -recommending to continue with bowel regimen, consider suppositories if pt unable to tolerate PO Cognitive Impairment Schizophrenia Acute Agitation/Delirium Required 24 hour support previously, relies on assistance of two care givers [employer] On clozapine, cymbalta, gabapentin at home, all held Pt pulling at lines and more agitated on 08/09 -will re-start home clozapine, per recs needs to titrated up slowly if held for more than 48hrs due to risk of bradycardia, hypotension -pt's home dose of clozapine 50mg qAM, 300mg qPM -clozapine restart on 08/10 at 12.5mg qAM, titrate dose up to home dosing -will hold off on restarting sedating/other meds above (gabapentin, cymbalta) Delirium precautions. MRI brain as per ICU. 08/11-pt currently on precedex FULL CODE STATUS On Aug 10, 2023, advised by CM that there is a [employer]ist contact who might be able to weigh in on code discussion given pt has no known family with whom she is in contact to assist with her decisions during critical times. Listed contact in the chart is a Caregiver from an agency and does not want to be responsible for making those decisions for the pt. Mr. Weston Archibald [phone] was contacted about 4:45PM as advised by Case Management. He states that his only contact with the patient was visiting on behalf of the methodist. Would not describe himself as a friend. Notes that he was advised by someone in the medical field that this should likely go to the Ethics committee. States that he is concerned about what the law states in terms of being able to speak on her behalf. Does note in his conversations with the patient that she has always wanted to be well and "go home" (he makes the distinction not her heavenly home) so he would assume that she wants heroic measures done. States that he has been at [facility] in the past and has visited pts who have been here for months and states that he believes this is what June would want as well. Next steps currently pending. Appreciate CM assistance. Hypothyroidism Levothyroxine resumed, continue Hypertension Held home antihypertensive while patient was on vasopressors BP currently trending back up In setting of restart of pt's clozapine which is needed and has major side effects noted above of hypotension and bradycardia, will resume home antihyperte nsives once pt has been titrated up to home dose of clozapine. HLD resume statin DMII Hold home metformin ICU hyperglycemia protocol Recurrent UTI Continue home methenamine Recurrent migraines Continue home riboflavin Chronic normocytic anemia Hgb baseline ~10, stable Monitor CBC Diet: Clear liquids DVT prophylaxis: Heparin SQ Dispo: PT/OT ordered, pt has caregivers CODE STATUS: Pt's listed contact in chart was contacted on 08/09 to discuss code status. She states that she works with an agency and is pt's caregiver but is not equipped nor does she want the responsibility of making life/ decisions for pt. She states pt has no POA and is estranged from living family, a sister with whom she was in contact passed recently. Admission and Anticipated Discharge Date Admission Date: August 06, 2023 Subjective Pt currently intubated and sedated. Review of Systems Review of Systems: Unobtainable due to endotracheal tube Physical Exam Physical Exam: General: Laying in bed intubated Psych: mood and affect could not be determined Neuro: sedated HEENT: NC/AT, intubated CV: RRR Resp:no increased effort of breathing Abdomen: soft Extremities: edema in lower extremities bilaterally. Results & Data Results & Data Vital Signs (Past 12 Hours) Vital Signs Temp Pulse Resp BP Pulse Ox O2 Del Method FiO2 08/12/23 11:03 56 L 22 91 30 08/12/23 09:30 113/63 08/12/23 09:30 37.6 C H 50 L 18 93 08/12/23 09:00 37.7 C H 51 L 18 94 08/12/23 09:00 136/78 08/12/23 09:00 Mechanical Vent 08/12/23 08:30 139/72 08/12/23 08:30 37.8 C H 53 L 18 95 08/12/23 08:00 30 08/12/23 08:00 Mechanical Vent 30 08/12/23 08:00 141/74 H 08/12/23 08:00 37.9 C H 54 L 18 94 08/12/23 07:30 132/78 08/12/23 07:30 37.9 C H 55 L 18 94 08/12/23 07:12 55 L 22 97 40 08/12/23 07:00 38.0 C H 56 L 24 97 08/12/23 07:00 135/76 08/12/23 06:30 38.1 C H 59 L 21 97 Mechanical Vent 40 08/12/23 06:30 140/79 08/12/23 06:00 38.2 C H 60 19 97 Mechanical Vent 40 08/12/23 06:00 125/70 08/12/23 05:30 38.3 C H 57 L 18 97 Mechanical Vent 40 08/12/23 05:30 132/66 08/12/23 05:01 38.3 C H 56 L 22 97 Mechanical Vent 40 08/12/23 05:01 135/67 08/12/23 05:00 38.3 C H 56 L 22 97 Mechanical Vent 40 08/12/23 04:30 38.3 C H 56 L 22 97 Mechanical Vent 40 08/12/23 04:30 136/68 08/12/23 04:00 38.2 C H 55 L 22 97 Mechanical Vent 40 08/12/23 04:00 140/68 08/12/23 03:45 56 L 22 97 40 08/12/23 03:30 38.2 C H 56 L 22 97 Mechanical Vent 40 08/12/23 03:30 130/67 08/12/23 03:00 38.2 C H 56 L 22 97 Mechanical Vent 40 08/12/23 03:00 130/70 08/12/23 02:30 129/70 08/12/23 02:30 38.2 C H 56 L 22 96 Mechanical Vent 40 08/12/23 02:00 38.3 C H 56 L 22 96 40 08/12/23 02:00 116/60 08/12/23 01:30 106/58 L 08/12/23 01:30 59 L 22 95 Mechanical Vent 40 08/12/23 01:00 63 22 97 Mechanical Vent 40 08/12/23 01:00 114/63 08/12/23 00:39 76 22 96 Mechanical Vent 40 08/12/23 00:39 116/63 08/12/23 00:31 116 H 24 95 Mechanical Vent 50 08/12/23 00:31 163/103 H 08/12/23 00:30 118 H 35 H 92 Mechanical Vent 50 08/12/23 00:00 37.8 C H 08/12/23 00:00 122/64 08/12/23 00:00 56 L 22 97 Mechanical Vent 50 08/12/23 00:00 57 L (4) Aspiration pneumonia Laterality: bilateral
[2023-08-12] MEDS: ENOXAPARIN INJ 40 MG/0.4 ML SYR SQ SCH (12:13)
[2023-08-12 13:22] LABS: Calcium 6.9 mg/dl (8.6-10.3); Magnesium 2.1 mg/dl (1.7-2.4)
[2023-08-12 13:41] LABS: Phosphorus 3.5 mg/dl (2.5-4.9)
[2023-08-12 14:33] LABS: Creatinine Clr Calc Pharmacy 72.9 ml/min; Est GFR (African American) 103.7 ml/min; Est GFR (Non-African American) 89.5 ml/min
[2023-08-13] MEDS ORDERED: STAT IV Infusion **Titration per Protocol STA (03:42)
[2023-08-13] MEDS: MIDAZOLAM HCL 1 MG/ML 2ML VIAL IV STA (03:43)
[2023-08-13] MEDS: MIDAZOLAM HCL 1 MG/ML 2ML VIAL ONE (03:46)
[2023-08-13] MEDS: propofoL 1,000 MG/100 ML VIAL IV SCH (03:48)
[2023-08-13] MEDS: PROPOFOL BOLUS FROM BAG IV PRN (04:00)
[2023-08-13 04:26] LABS: iSTAT Allen Test Pass; iSTAT Art Bld Gas pCO2 Correct 33 mmHg (35-46); iSTAT Art Bld Gas pH Corrected 7.511 (7.35-7.45); iSTAT Arterial Blood Gas HCO3 26 meg/L (19-24); iSTAT Arterial Blood Gas pCO2 32 mmHg (35-46); iSTAT Arterial Blood Gas pH 7.53 (7.35-7.45); iSTAT Arterial Blood Gas pO2 55 mmHg (80-95); iSTAT Arterial Blood Gas pO2 C 59; iSTAT Carbon Dioxide 27 mmol/L (24-31); iSTAT FiO2 40 %; iSTAT Hematocrit 25 % (37-47); iSTAT Hemoglobin 8.5 g/dl (12.0-16.0); iSTAT Potassium 3.1 mmol/L (3.3-5.0); iSTAT Site R Radial; iSTAT Sodium 145 mmol/L (135-144)
[2023-08-13 06:59] LABS: Basophils # (auto) 0.01 K/uL (0.00-0.20); Basophils % (auto) 0.1 %; Hematocrit (blood only) 27.9 % (37.0-47.0); Lymphocytes # (auto) 1.22 K/uL (1.20-3.40); Lymphocytes % (auto) 16.2 %; Mean Corpuscular Hemoglobin 28.4 pg (25.0-34.0); Mean Corpuscular Hgb Conc 32.3 g/dL (32.0-36.0); Mean Platelet Volume 10.3 fL (9.4-12.4); Monocytes # (auto) 0.45 K/uL (0.11-0.59); Neutrophils # (auto) 5.53 K/uL (1.40-6.50); Neutrophils % (auto) 73.7 %; Platelet Count 136 K/uL (130-400); RDW Standard Deviation 54.4 fL (36.4-46.3); Red Blood Count 3.17 M/uL (4.20-5.40); White Blood Count 7.51 K/ul (4.8-10.8)
--- NOTE | 2023-08-13 07:01 | XRay Report ---
XR chest 1V portable HISTORY: Resp failure COMPARISON: Chest 08/12/2023. FINDINGS: Endotracheal tube terminates 3.4 cm from the vadim. No pneumothorax. The heart remains mil dly enlarged. Nasogastric tube terminates below the diaphragm. The tip is not included on this study. Patchy bilateral airspace opacities and small bilateral pleural effusions persist. IMPRESSION: 1. Satisfactory support line placement. 2. No change in the patchy bilateral airspace opacities and small bilateral pleural effusions. ACT 112: Negative or not required by law. Electronically signed by: Doe Harper M.D. 08/13/2023 6:59 AM
[2023-08-13 07:12] LABS: Albumin Globulin Ratio 1.4 (0.9-2); Albumin Level 2.3 gm/dl (3.4-5.0); BUN Creatinine Ratio 37.7 (10-20); Bilirubin,Total 0.5 mg/dl (0.2-1.0); Calcium 7.2 mg/dl (8.6-10.3); Creatinine Clr Calc Pharmacy 88.6 ml/min; Est GFR (African American) 109.2 ml/min; Est GFR (Non-African American) 94.2 ml/min; Globulin 1.7 gm/dl (2.5-4.0); Magnesium 1.9 mg/dl (1.7-2.4); Phosphorus 2.7 mg/dl (2.5-4.9); Potassium 3.3 mmol/L (3.5-5.1)
[2023-08-13] MEDS: ERGOCALCIFEROL 1250 MCG (50,000 UNITS) CAP PO SCH (07:48)
--- NOTE | 2023-08-13 08:07 | Critical Care Progress Note ---
Date of Service August 13, 2023 Assessment & Plan (1) Aspiration pneumonia: (2) Severe sepsis: (3) Weak cough: (4) Constipation: (5) Volume overload: (6) On mechanically assisted ventilation: Plan 72-year-old female with history of severe psychiatric illness, constipation and dementia who presented to the hospital with acute hypoxic respiratory failure and severe constipation. ICU was reconsulted on the night of 08/10/2023 due to ongoing delirium and hypoxia. Neurologic: CAM ICU: Unable to be assessed Sedation: Propofol, fentanyl --Schizophrenia On clozapine at home It was on hold for more than 48 hours Resumed at a lower dose on 08/13/2023 Pulmonary: -- VDRF Likely secondary to hypoxic respiratory failure secondary to pulmonary edema/fluid overload Reintubated 08/11/2023 Continue with ventilatory support Keep RASS -1 Daily sedation holidays and SBT's Cardiovascular: Echo 08/07/2023 with an EF of 50 to 55%. Mild mitral regurgitation Gastrointestinal: -- Severe constipation Did have bowel movements with suppositories and lactulose Tube feeds Renal: -- Monitor BUNs/creatinine Avoid nephrotoxic medication Infectious disease: -- Multilobar infiltrates Likely pulmonary edema, pneumonia cannot be ruled out Procalciton 35 08/10/2023 --> 10, Antibiotics transitioned to meropenem 08/10/2023 --> de-escalate to cefepime on 08/13/2023 Bronchoscopy cultures from 08/11/2023 growing Hilaria. Nasal MRSA negative Hematologic: -- Monitor H&H Endocrine: -- Hypothyroidism Initial pH was elevated at 8.6, repeat TSH within normal limit, 1.287 Continue with levothyroxine CODE STATUS: Full Family at bedside: No POA is currently available. Case management assisting with guardianship. --Prophylaxis VTE: Lovenox GI: Pantoprazole Lines: Peripheral Diet: Tube feeds Plan: In/out: Positive for 45, urine output 190, +11 L since coming to the hospital Repeat EKG from today shows a QTc of 423 Try to go down with sedation as much as possible Will start clozapine at a lower dose as per the recommendation from pharmacy. Meropenem will be de-escalated to cefepime. Tube feeds will be started Potassium and magnesium is being replaced. Patient is getting hyponatremic which is not a good sign in somebody who is hypervolemic. Give free water flushes through the OGT, a dose of chlorothiazide IV, repeat BMP later today Change levothyroxine to IV Will repeat UA as well Weston Archibald [phone] was called and voicemail was left I have personally spent 45 minutes of critical care time in the direct management of this patient. This is a life/limb threatening event. This includes time spent evaluating patient, direct bedside care, chart review, placing orders, interpretation of diagnostic studies, discussion with consultants, patient, and family members, as well as other required patient management activities. This time is exclusive of all separately billable procedures, and teaching time and separate from and in addition to any other critical care service time. Thank you for allowing us to participate in the care of this patient. Admission and Anticipated Discharge Date Admission Date: August 06, 2023 Subjective Patient seen and examined at bedside. No acute distress. Overnight patient was started on Precedex following which she got hypotensive and had some shaking-like episode, did not seem like seizure activity as per the nurses. She was on 75 fentanyl and 20 of propofol on the time of examination She was breathing with the vent. Still spiking low-grade fever. Review of Systems 2 Review of Systems: All systems reviewed & are unremarkable except as noted in Subjective Physical Exam 2 Physical Exam: Constitutional: No acute distress HEENT: PERRLA Respiratory system: Decreased air entry bilaterally, no wheeze, no rhonchi, positive crackles bilaterally CVS: S1-S2 positive, no murmurs or gallops Abdomen: Soft, nontender, nondistended, positive bowel sounds x4 Extremities: +2 pulses bilaterally radialis/ dorsalis pedis, no cyanosis, +1 edema bilateral lower extremity Neuro: RASS -2, breathing with vent Psych: Unable to assess G/U: Positive Hou Skin: no rashes, warm and dry Lymphatic: no cervical or axillary lymphadenopathy Results & Data Results & Data Vital Signs (Past 12 Hours) Vital Signs Temp Pulse Resp BP Pulse Ox O2 Del Method FiO2 08/13/23 07:29 63 15 96 40 08/13/23 06:23 40 08/13/23 06:15 104/53 L 08/13/23 06:15 38.1 C H 63 18 96 Mechanical Vent 40 08/13/23 06:00 112/54 L 08/13/23 06:00 38.2 C H 63 17 96 Mechanical Vent 40 08/13/23 05:45 123/59 L 08/13/23 05:45 38.2 C H 63 16 97 Mechanical Vent 40 08/13/23 05:30 137/61 08/13/23 05:30 38.1 C H 68 14 08/13/23 05:15 115/55 L 08/13/23 05:15 38.1 C H 62 19 91 Mechanical Vent 40 08/13/23 05:00 107/49 L 08/13/23 05:00 38.1 C H 61 16 92 Mechanical Vent 40 08/13/23 04:45 102/50 L 08/13/23 04:45 38.1 C H 60 29 H 92 Mechanical Vent 40 08/13/23 04:30 101/52 L 08/13/23 04:30 38.1 C H 60 15 92 Mechanical Vent 40 08/13/23 04:16 57 L 16 95 40 08/13/23 04:15 101/51 L 08/13/23 04:15 38.1 C H 56 L 18 94 Mechanical Vent 40 08/13/23 04:14 40 08/13/23 04:00 38.0 C H 65 19 92 Mechanical Vent 40 08/13/23 04:00 30 08/13/23 03:41 37.9 C H 96 H 23 73 L Mechanical Vent 40 08/13/23 03:41 173/83 H 08/13/23 03:00 37.7 C H 52 L 18 95 Mechanical Vent 40 08/13/23 03:00 119/60 08/13/23 02:35 50 L 18 95 40 08/13/23 02:00 106/57 L 08/13/23 02:00 37.7 C H 51 L 18 94 Mechanical Vent 30 08/13/23 01:00 112/58 L 08/13/23 01:00 37.7 C H 52 L 19 92 Mechanical Vent 30 08/13/23 00:00 37.8 C H 51 L 16 93 Mechanical Vent 30 08/13/23 00:00 112/62 08/13/23 00:00 30 08/13/23 00:00 53 L 08/12/23 23:00 108/60 08/12/23 23:00 37.7 C H 53 L 16 93 Mechanical Vent 30 08/12/23 22:22 49 L 19 93 30 08/12/23 22:00 118/63 08/12/23 22:00 37.8 C H 49 L 16 93 Mechanical Vent 30 08/12/23 21:00 115/64 08/12/23 21:00 37.9 C H 50 L 16 93 Mechanical Vent 30 Laboratory Results 08/13/23 06:42 08/13/23 06:42 Coding Level of Care Code 11655 CRITICAL CARE 1ST 30-74M Diagnoses Aspiration pneumonia J69.0 Laterality: bilateral Severe sepsis A41.9; R65.20 Weak cough R05.8 Constipation K59.00 Volume overload E87.70 On mechanically assisted ventilation Z99.11 (1) Aspiration pneumonia Laterality: bilateral
[2023-08-13] MEDS: POTASSIUM CHLORIDE 20 MEQ/15 ML UDC PO STA (08:22)
[2023-08-13] MEDS: MAGNESIUM SULFATE / D5W 1 GM/100 ML BAG IV SCH (08:22)
[2023-08-13] MEDS: CHLOROTHIAZIDE SODIUM 250 MG in DEXTROSE 5% 50 ML IV ONE (09:21)
[2023-08-13] MEDS: POTASSIUM CHLORIDE / WTR 10 MEQ/100 ML PLCT IV SCH (09:21)
[2023-08-13] MEDS: TUBE FEEDING WATER FLUSH OG SCH (11:41)
[2023-08-13] MEDS: CEFEPIME 2,000 MG in SYRINGE 0 ML IV SCH (11:41)
[2023-08-13] MEDS: cloZAPine 25 MG TAB PO SCH (12:36)
--- NOTE | 2023-08-13 15:59 | Hospitalist Progress Note ---
Date of Service August 13, 2023 Assessment & Plan (1) Stercoral colitis: (2) Constipation, chronic: (3) Full code status: (4) Aspiration pneumonia: (5) On mechanically assisted ventilation: (6) Acute respiratory failure: Plan Pt is a 72yoF with PMHx significant for HTN, HLD, DMII, hypothyroidism, Hx of brain tumor s/p partial resection, schizophrenia, prior migraine, chronic anemia, recurrent UTIs, urinary incontinence and urinary bladder diverticulum presented after being found down and minimally responsive at home. Patient was admitted to the ICU for management and evaluation of septic shock. Acute respiratory failure requiring mechanical ventilation On admission, was secondary to severe sepsis above, requiring intubation Vent management per ICU, pt extubated on 08/08 On Aug 09- pt developed acute respiratory failure once more - Pt with increasing oxygen requirement. - Chest xray with bilateral opacities, pneumonia (?possible aspiration), procalcitonin elevated >34. -Was on hi emy oxygen, pt in restraints. -Pulmonology previously consulted- appreciate recs. -Diuresing with IV Lasix. -Transferred to ICU once more on 08/11 Transferred back to the ICU on 08/11 -was on bipap and re-intubated on 08/11 -bronch also done on 08/11 with cultures obtained and currently growing ryan. Noted mucoid impaction in RLL. -on precedex and fentanyl Septic shock-POA Pt was hypotensive on admission, requiring ICU admission Required pressor support which has since been discontinued. UA repeatedly without signs of infection, urine Cx with NGTD Chest XR with no signs of infection, biofire negative CT abd/pelvis with suggestion of stercoral colitis, bowel perforation less likely/ruled out Blood Cx x1 grew alpha strep, ?contaminant Was treated with Vanc/Zosyn. 08/10- pt with increased oxygen requirement, chest xray with noted possible pneumonia (also fluid overload), procal newly elevated. Pulmonology consulted- pt switched to meropenem for antibiotic coverage. Repeat Blood Cultures pending. 08/11- pt transferred to the ICU overnight for worsening hypoxia and delirium. Currently febrile, on meropenem, BP in normal limits. Appreciate ICU recs. 08/12-On meropenem, bronch cx/washings pending 08/13- bronch Cx growing ryan Severe constipation Stercoral Colitis CT Abd/pelvis showing significant stool burden on admission On lactulose, received enemas Reportedly pt had many BMs General surgery consulted- appreciate recs -recommending to continue with bowel regimen, consider suppositories if pt unable to tolerate PO Cognitive Impairment Schizophrenia Acute Agitation/Delirium Required 24 hour support previously, relies on assistance of two care givers [employer] On clozapine, cymbalta, gabapentin at home, all held Pt pulling at lines and more agitated on 08/09 -will re-start home clozapine, per recs needs to titrated up slowly if held for more than 48hrs due to risk of bradycardia, hypotension -pt's home dose of clozapine 50mg qAM, 300mg qPM -clozapine restart on 08/10 at 12.5mg qAM, titrate dose up to home dosing -will hold off on restarting sedating/other meds above (gabapentin, cymbalta) Delirium precautions. MRI brain as per ICU. 08/11-pt currently on precedex FULL CODE STATUS On Aug 10, 2023, advised by CM that there is a shinto contact who might be able to weigh in on code discussion given pt has no known family with whom she is in contact to assist with her decisions during critical times. Listed contact in the chart is a Caregiver from an agency and does not want to be responsible for making those decisions for the pt. Mr. Weston Archibald [phone] was contacted about 4:45PM as advised by Case Management. He states that his only contact with the patient was visiting on behalf of the shinto. Would not describe himself as a friend. Notes that he was advised by someone in the medical field that this should likely go to the Ethics committee. States that he is concerned about what the law states in terms of being able to speak on her behalf. Does note in his conversations with the patient that she has always wanted to be well and "go home" (he makes the distinction not her heavenly home) so he would assume that she wants heroic measures done. States that he has been at [facility] in the past and has visited pts who have been here for months and states that he believes this is what June would want as well. Next steps currently pending. Appreciate CM assistance. Hypothyroidism Levothyroxine resumed, continue Hypertension Held home antihypertensive while patient was on vasopressors BP currently trending back up In setting of restart of pt's clozapine which is needed and has major side effects noted above of hypotension and bradycardia, will resume home antihypertensives once pt has been titrated up to home dose of clozapine. HLD resume statin DMII Hold home metformin ICU hyperglycemia protocol Recurrent UTI Continue home methenamine Recurrent migraines Continue home riboflavin Chronic normocytic anemia Hgb baseline ~10, stable Monitor CBC Diet: Clear liquids DVT prophylaxis: Heparin SQ Dispo: PT/OT ordered, pt has caregivers CODE STATUS: Pt's listed contact in chart was contacted on 08/09 to discuss code status. She states that she works with an agency and is pt's caregiver but is not equipped nor does she want the responsibility of making life/ decisions for pt. She states pt has no POA and is estranged from living family, a sister with whom she was in contact passed recently. Admission and Anticipated Discharge Date Admission Date: August 06, 2023 Subjective Pt still intubated and sedated Review of Systems Review of Systems: Unobtainable due to endotracheal tube Physical Exam Physical Exam: General: Laying in bed intubated Psych: mood and affect could not be determined Neuro: sedated HEENT: NC/AT, intubated CV: RRR Resp:no increased effort of breathing Abdomen: soft Extremities: edema in lower extremities bilaterally. Results & Data Results & Data Vital Signs (Past 12 Hours) Vital Signs Temp Temp Pulse Resp BP Pulse Ox O2 Del Method 08/13/23 15:55 39.1 C H 08/13/23 15:45 85 15 99 08/13/23 15:45 155/91 H 08/13/23 15:30 89 16 97 08/13/23 15:30 173/78 H 08/13/23 15:15 163/78 H 08/13/23 15:15 92 H 19 98 08/13/23 15:00 159/79 H 08/13/23 15:00 85 19 98 08/13/23 14:45 160/79 H 08/13/23 14:45 86 18 99 08/13/23 14:44 39.4 C H 08/13/23 14:42 39.4 C H 08/13/23 14:30 167/65 H 08/13/23 14:30 92 H 19 98 08/13/23 14:26 167/83 H 08/13/23 14:26 93 H 20 99 08/13/23 14:16 39.3 C H 97 H 29 H 96 08/13/23 14:16 75/59 L 08/13/23 14:00 157/71 H 08/13/23 14:00 39.3 C H 80 14 98 08/13/23 13:45 39.3 C H 79 15 97 08/13/23 13:45 158/66 H 08/13/23 13:30 39.3 C H 80 16 97 08/13/23 13:30 159/64 H 08/13/23 13:15 160/65 H 08/13/23 13:15 39.3 C H 82 16 98 08/13/23 13:00 157/67 H 08/13/23 13:00 39.2 C H 79 14 97 08/13/23 12:45 158/68 H 08/13/23 12:45 39.2 C H 80 17 97 08/13/23 12:30 160/63 H 08/13/23 12:30 39.1 C H 83 18 97 08/13/23 12:15 156/63 H 08/13/23 12:15 39.0 C H 78 14 96 08/13/23 12:00 158/66 H 08/13/23 12:00 38.9 C H 84 19 96 08/13/23 12:00 08/13/23 11:45 163/73 H 08/13/23 11:45 38.9 C H 82 18 98 08/13/23 11:30 38.8 C H 73 14 97 08/13/23 11:30 136/62 08/13/23 11:15 38.7 C H 77 15 97 08/13/23 11:15 152/65 H 08/13/23 11:00 135/62 08/13/23 11:00 38.6 C H 73 14 97 08/13/23 10:45 38.5 C H 73 14 97 08/13/23 10:45 136/60 08/13/23 10:34 73 20 97 08/13/23 10:30 38.4 C H 73 13 97 08/13/23 10:30 139/61 08/13/23 10:15 38.3 C H 73 14 96 08/13/23 10:15 138/61 02/12/24 10:00 156/79 H 08/13/23 10:00 38.2 C H 84 28 H 91 08/13/23 09:45 132/60 08/13/23 09:45 38.1 C H 68 13 96 08/13/23 09:30 38.0 C H 68 13 96 08/13/23 09:30 127/57 L 08/13/23 09:15 125/68 08/13/23 09:15 37.9 C H 68 14 96 08/13/23 09:00 129/58 L 08/13/23 09:00 37.9 C H 67 14 96 08/13/23 08:45 37.8 C H 67 15 96 08/13/23 08:45 122/60 08/13/23 08:30 118/54 L 08/13/23 08:30 37.8 C H 65 14 98 08/13/23 08:20 Mechanical Vent 08/13/23 08:15 37.8 C H 64 15 98 08/13/23 08:15 111/55 L 08/13/23 08:00 102/48 L 08/13/23 08:00 37.8 C H 63 14 99 08/13/23 08:00 63 08/13/23 08:00 08/13/23 07:45 104/50 L 08/13/23 07:45 37.8 C H 63 14 99 08/13/23 07:30 37.9 C H 63 14 98 08/13/23 07:30 105/51 L 08/13/23 07:29 63 15 96 08/13/23 07:15 110/88 08/13/23 07:15 37.8 C H 61 15 96 08/13/23 07:00 100/50 L 08/13/23 07:00 37.9 C H 62 17 95 08/13/23 06:45 102/52 L 08/13/23 06:45 38.0 C H 64 17 96 08/13/23 06:30 101/51 L 08/13/23 06:30 38.0 C H 63 20 96 08/13/23 06:23 08/13/23 06:15 104/53 L 08/13/23 06:15 38.1 C H 63 18 96 Mechanical Vent 08/13/23 06:00 112/54 L 08/13/23 06:00 38.2 C H 63 17 96 Mechanical Vent 08/13/23 05:45 123/59 L 08/13/23 05:45 38.2 C H 63 16 97 Mechanical Vent 08/13/23 05:30 137/61 08/13/23 05:30 38.1 C H 68 14 08/13/23 05:15 115/55 L 08/13/23 05:15 38.1 C H 62 19 91 Mechanical Vent 08/13/23 05:00 107/49 L 08/13/23 05:00 38.1 C H 61 16 92 Mechanical Vent 08/13/23 04:45 102/50 L 08/13/23 04:45 38.1 C H 60 29 H 92 Mechanical Vent 08/13/23 04:30 101/52 L 08/13/23 04:30 38.1 C H 60 15 92 Mechanical Vent 08/13/23 04:16 57 L 16 95 08/13/23 04:15 101/51 L 08/13/23 04:15 38.1 C H 56 L 18 94 Mechanical Vent 08/13/23 04:14 08/13/23 04:00 38.0 C H 65 19 92 Mechanical Vent 08/13/23 04:00 O2 Flow Rate FiO2 08/13/23 15:55 08/13/23 15:45 08/13/23 15:45 08/13/23 15:30 08/13/23 15:30 08/13/23 15:15 08/13/23 15:15 08/13/23 15:00 08/13/23 15:00 08/13/23 14:45 08/13/23 14:45 08/13/23 14:44 08/13/23 14:42 08/13/23 14:30 08/13/23 14:30 08/13/23 14:26 08/13/23 14:26 08/13/23 14:16 08/13/23 14:16 08/13/23 14:00 08/13/23 14:00 08/13/23 13:45 08/13/23 13:45 08/13/23 13:30 08/13/23 13:30 08/13/23 13:15 08/13/23 13:15 08/13/23 13:00 08/13/23 13:00 08/13/23 12:45 08/13/23 12:45 08/13/23 12:30 08/13/23 12:30 08/13/23 12:15 08/13/23 12:15 08/13/23 12:00 08/13/23 12:00 08/13/23 12:00 40 08/13/23 11:45 08/13/23 11:45 08/13/23 11:30 08/13/23 11:30 08/13/23 11:15 08/13/23 11:15 08/13/23 11:00 08/13/23 11:00 08/13/23 10:45 08/13/23 10:45 08/13/23 10:34 40 08/13/23 10:30 08/13/23 10:30 08/13/23 10:15 08/13/23 10:15 08/13/23 10:00 08/13/23 10:00 08/13/23 09:45 08/13/23 09:45 08/13/23 09:30 08/13/23 09:30 08/13/23 09:15 08/13/23 09:15 08/13/23 09:00 08/13/23 09:00 08/13/23 08:45 08/13/23 08:45 08/13/23 08:30 08/13/23 08:30 08/13/23 08:20 40 08/13/23 08:15 08/13/23 08:15 08/13/23 08:00 08/13/23 08:00 08/13/23 08:00 08/13/23 08:00 40 08/13/23 07:45 08/13/23 07:45 08/13/23 07:30 08/13/23 07:30 08/13/23 07:29 40 08/13/23 07:15 08/13/23 07:15 08/13/23 07:00 08/13/23 07:00 08/13/23 06:45 08/13/23 06:45 08/13/23 06:30 08/13/23 06:30 08/13/23 06:23 40 08/13/23 06:15 08/13/23 06:15 40 08/13/23 06:00 08/13/23 06:00 40 08/13/23 05:45 08/13/23 05:45 40 08/13/23 05:30 08/13/23 05:30 08/13/23 05:15 08/13/23 05:15 40 08/13/23 05:00 08/13/23 05:00 40 08/13/23 04:45 08/13/23 04:45 40 08/13/23 04:30 08/13/23 04:30 40 08/13/23 04:16 40 08/13/23 04:15 08/13/23 04:15 40 08/13/23 04:14 40 08/13/23 04:00 40 08/13/23 04:00 30 (4) Aspiration pneumonia Laterality: bilateral
[2023-08-13 16:51] LABS: Appearance Urine Clear (Clear); Bacteria Urine Automated Negative (Negative); Bilirubin Urine Negative (Negative); Blood Urine Negative (Negative); Color Urine Yellow; Glucose Urine UA Negative (Negative); Ketones Urine Negative (Negative); Leukocyte Esterase Urine Negative (Negative); Nitrite Urine Negative (Negative); Specific Gravity Urine 1.013 (1.000-1.030); Urobilinogen Urine Negative (Negative); WBC Urine Automated 0 /hpf (0-5); pH Urine >= 9.0 (4.5-7.5)
[2023-08-13 17:06] LABS: Protein Urine Trace (Negative)
[2023-08-13 17:17] LABS: BUN Creatinine Ratio 29.8 (10-20); Calcium 7.6 mg/dl (8.6-10.3); Creatinine Clr Calc Pharmacy 82.3 ml/min; Est GFR (African American) 106.6 ml/min; Potassium 4.5 mmol/L (3.5-5.1)
[2023-08-13] MEDS: ICU ELECTROLYTE REPLACEMENT PROTOCOL SCH (17:21)
[2023-08-13] MEDS: CHLOROTHIAZIDE SODIUM 250 MG in DEXTROSE 5% 50 ML IV STA (17:57)
--- NOTE | 2023-08-13 20:34 | Communication Note ---
Date of Service: August 13, 2023 consult received, chart reviewed briefly as anticipated may be receiving clozaril at hs. Patient was receiving 300 mg hs + lower dose am until 1 week ago for reported hx of schizophrenia which is likely the cause of her chronic constipation. She remains acutely ill, ventilated, and was seen by neurology/etc for encephalopathy. Clozaril when stopped abruptly can contribute to AMS but risks can also include acute pericarditis/bowel obstruction/contributing to lowering seizure threshhold in acutely ill patients. At this point rather than resuming at 25 mg total daily dose of clozaril and immediately retritrating, will attempt to obtain collateral/examine in am. Clozaril is not effective for acute agitation.
[2023-08-14 04:28] LABS: iSTAT Allen Test Pass; iSTAT Art Bld Gas pCO2 Correct 36 mmHg (35-46); iSTAT Art Bld Gas pH Corrected 7.468 (7.35-7.45); iSTAT Arterial Blood Gas HCO3 26 meg/L (19-24); iSTAT Arterial Blood Gas pCO2 35 mmHg (35-46); iSTAT Arterial Blood Gas pH 7.47 (7.35-7.45); iSTAT Arterial Blood Gas pO2 90 mmHg (80-95); iSTAT Arterial Blood Gas pO2 C 92; iSTAT Carbon Dioxide 27 mmol/L (24-31); iSTAT FiO2 35 %; iSTAT Hematocrit 24 % (37-47); iSTAT Hemoglobin 8.2 g/dl (12.0-16.0); iSTAT Potassium 2.7 mmol/L (3.3-5.0); iSTAT Site L Brachial; iSTAT Sodium 142 mmol/L (135-144)
[2023-08-14 05:00] LABS: Calcium 7.2 mg/dl (8.6-10.3); Magnesium 1.9 mg/dl (1.7-2.4); Potassium 3.7 mmol/L (3.5-5.1)
[2023-08-14 05:05] LABS: BUN Creatinine Ratio 38.6 (10-20); Creatinine Clr Calc Pharmacy 106.7 ml/min; Est GFR (African American) 116.1 ml/min; Est GFR (Non-African American) 100.1 ml/min; Phosphorus 3.2 mg/dl (2.5-4.9)
[2023-08-14] MEDS: POTASSIUM CHLORIDE 20 MEQ/15 ML UDC NG SCH (05:45)
[2023-08-14] MEDS: MAGNESIUM OXIDE 400 MG TAB NG SCH (05:45)
--- NOTE | 2023-08-14 07:35 | Critical Care Progress Note ---
Date of Service August 14, 2023 Assessment & Plan (1) Aspiration pneumonia: (2) Severe sepsis: (3) Weak cough: (4) Constipation: (5) Volume overload: (6) On mechanically assisted ventilation: Plan 72-year-old female with history of severe psychiatric illness, constipation and dementia who presented to the hospital with acute hypoxic respiratory failure and severe constipation. ICU was reconsulted on the night of 08/10/2023 due to ongoing delirium and hypoxia. Neurologic: CAM ICU: Unable to be assessed Sedation: Propofol, fentanyl --Schizophrenia On clozapine at home It was on hold for more than 48 hours Resumed at a lower dose on 08/13/2023 Pulmonary: -- VDRF Likely secondary to hypoxic respiratory failure secondary to pulmonary edema/fluid overload Reintubated 08/11/2023 Continue with ventilatory support Keep RASS -1 Daily sedation holidays and SBT's Cardiovascular: Echo 08/07/2023 with an EF of 50 to 55%. Mild mitral regurgitation Gastrointestinal: -- Severe constipation Did have bowel movements with suppositories and lactulose Tube feeds Renal: -- Monitor BUNs/creatinine Avoid nephrotoxic medication Infectious disease: -- Multilobar infiltrates Likely pulmonary edema, pneumonia cannot be ruled out Procalciton 35 08/10/2023 --> 10, Antibiotics transitioned to meropenem 08/10/2023 --> de-escalate to cefepime on 08/13/2023 Bronchoscopy cultures from 08/11/2023 growing Hilaria. Nasal MRSA negative Repeat UA negative on 08/13/2023 Hematologic: -- Monitor H&H Endocrine: -- Hypothyroidism Initial pH was elevated at 8.6, repeat TSH within normal limit, 1.287 Continue with levothyroxine CODE STATUS: Full No POA is currently available. Case management assisting with guardianship. --Prophylaxis VTE: Lovenox GI: Pantoprazole Lines: Peripheral Diet: Tube feeds Plan: In/out: -1 L, urine output 2400, +9 L since coming to the hospital Potassium and magnesium being replaced. Chest x-ray from today shows improvement compared to yesterday. I will try to keep the patient on pressure support today to make her diaphragm work. Based on patient's clinical status tomorrow trial of extubation could be thought of Weston Archibald [phone] was called and voicemail was left I have personally spent 40 minutes of critical care time in the direct management of this patient. This is a life/limb threatening event. This includes time spent evaluating patient, direct bedside care, chart review, placing orders, interpretation of diagnostic studies, discussion with consultants, patient, and family members, as well as other required patient management activities. This time is exclusive of all separately billable procedures, and teaching time and separate from and in addition to any other critical care service time. Thank you for allowing us to participate in the care of this patient. Admission and Anticipated Discharge Date Admission Date: August 06, 2023 Subjective Patient seen and examined at bedside. No acute distress. No adverse events overnight She was on 20 of propofol, 75 of fentanyl at the time of examination Patient was breathing just about the vent She is still spiking low-grade fever. Tolerating tube feeds. Not following commands but opening eyes to voice/her name Review of Systems 2 Review of Systems: All systems reviewed & are unremarkable except as noted in Subjective Physical Exam 2 Physical Exam: Constitutional: No acute distress HEENT: PERRLA Respiratory system: Decreased air entry bilaterally, no wheeze, no rhonchi, positive crackles bilaterally CVS: S1-S2 positive, no murmurs or gallops Abdomen: Soft, nontender, nondistended, positive bowel sounds x4 Extremities: +2 pulses bilaterally radialis/ dorsalis pedis, no cyanosis, +1 edema bilateral lower extremity Neuro: RASS -1, breathing with vent Psych: Unable to assess G/U: Positive Hou Skin: no rashes, warm and dry Lymphatic: no cervical or axillary lymphadenopathy Results & Data Results & Data Vital Signs (Past 12 Hours) Vital Signs Temp Pulse Resp BP Pulse Ox O2 Del Method O2 Flow Rate 08/14/23 06:00 37.5 C 68 12 100 08/14/23 06:00 116/52 L 08/14/23 05:45 37.5 C 72 13 100 08/14/23 05:45 114/55 L 08/14/23 05:30 37.5 C 71 14 100 08/14/23 05:30 115/54 L 08/14/23 05:00 130/62 08/14/23 05:00 37.4 C 77 18 96 08/14/23 04:00 37.3 C 68 14 100 08/14/23 04:00 08/14/23 03:45 37.3 C 67 15 100 08/14/23 03:45 110/48 L 08/14/23 03:35 67 15 100 08/14/23 03:00 37.3 C 69 14 100 08/14/23 03:00 108/52 L 08/14/23 02:45 37.4 C 69 14 100 08/14/23 02:45 108/49 L 08/14/23 02:00 37.4 C 71 14 100 08/14/23 01:00 37.3 C 70 13 100 08/14/23 00:00 114/58 L 08/14/23 00:00 37.3 C 74 17 100 08/14/23 00:00 08/14/23 00:00 73 08/13/23 23:45 120/57 L 08/13/23 23:45 37.2 C 72 18 100 08/13/23 23:38 73 16 100 08/13/23 23:30 122/67 08/13/23 23:30 37.1 C 74 15 100 08/13/23 23:15 122/59 L 08/13/23 23:15 37.1 C 73 17 100 08/13/23 23:00 131/57 L 08/13/23 23:00 37.0 C 68 16 100 08/13/23 22:45 37.0 C 74 13 100 08/13/23 22:45 113/62 08/13/23 22:30 36.9 C 75 19 100 08/13/23 22:30 117/58 L 08/13/23 22:15 121/56 L 08/13/23 22:15 36.9 C 72 19 100 08/13/23 22:00 122/55 L 08/13/23 22:00 36.9 C 72 17 100 08/13/23 21:45 113/54 L 08/13/23 21:45 36.9 C 74 15 100 08/13/23 21:30 113/55 L 08/13/23 21:30 36.9 C 76 17 100 08/13/23 21:15 36.9 C 76 15 100 08/13/23 21:15 116/61 08/13/23 21:00 37.1 C 82 14 100 08/13/23 21:00 130/84 08/13/23 20:45 141/65 H 08/13/23 20:45 37.2 C 86 11 L 100 08/13/23 20:32 98 H 23 100 08/13/23 20:30 163/75 H 08/13/23 20:30 85 13 100 08/13/23 20:27 97 H 13 100 08/13/23 20:27 163/76 H 08/13/23 20:15 98 H 16 100 08/13/23 20:00 92 H 14 100 08/13/23 20:00 Mechanical Vent 35 08/13/23 20:00 08/13/23 19:45 86 13 100 FiO2 08/14/23 06:00 08/14/23 06:00 08/14/23 05:45 08/14/23 05:45 08/14/23 05:30 08/14/23 05:30 08/14/23 05:00 08/14/23 05:00 08/14/23 04:00 08/14/23 04:00 35 08/14/23 03:45 08/14/23 03:45 08/14/23 03:35 35 08/14/23 03:00 08/14/23 03:00 08/14/23 02:45 08/14/23 02:45 08/14/23 02:00 08/14/23 01:00 08/14/23 00:00 08/14/23 00:00 08/14/23 00:00 35 08/14/23 00:00 08/13/23 23:45 08/13/23 23:45 08/13/23 23:38 35 08/13/23 23:30 08/13/23 23:30 08/13/23 23:15 08/13/23 23:15 08/13/23 23:00 08/13/23 23:00 08/13/23 22:45 08/13/23 22:45 08/13/23 22:30 08/13/23 22:30 08/13/23 22:15 08/13/23 22:15 08/13/23 22:00 08/13/23 22:00 08/13/23 21:45 08/13/23 21:45 08/13/23 21:30 08/13/23 21:30 08/13/23 21:15 08/13/23 21:15 08/13/23 21:00 08/13/23 21:00 08/13/23 20:45 08/13/23 20:45 08/13/23 20:32 35 08/13/23 20:30 08/13/23 20:30 08/13/23 20:27 08/13/23 20:27 08/13/23 20:15 08/13/23 20:00 08/13/23 20:00 08/13/23 20:00 35 08/13/23 19:45 Laboratory Results 08/13/23 06:42 08/14/23 03:44 Coding Level of Care Code 70626 CRITICAL CARE 1ST 30-74M Diagnoses Aspiration pneumonia J69.0 Laterality: bilateral Severe sepsis A41.9; R65.20 Weak cough R05.8 Constipation K59.00 Volume overload E87.70 On mechanically assisted ventilation Z99.11 (1) Aspiration pneumonia Laterality: bilateral
--- NOTE | 2023-08-14 08:47 | XRay Report ---
SINGLE VIEW CHEST CLINICAL HISTORY: Respiratory failure. FINDINGS: An AP, portable, supine chest radiograph is compared to study dictated 08/13/2023. Endotrach eal and enteric tubes are unchanged in position. The heart is enlarged noting atherosclerotic calcifi cation of the thoracic aorta. There is pulmonary vascular congestion. Multifocal bilateral airspace o pacities likely represent pulmonary edema. This has significantly cleared from yesterday. There are l ayering pleural effusions with dependent consolidation. No pneumothorax is seen. The skeletal structu res are osteopenic. The bony thorax is grossly intact. IMPRESSION: 1. Stable lines and tubes. 2. Cardiomegaly with evidence of congestive failure. Pulmonary edema has significantly improved from yesterday. 3. Layering pleural effusions with dependent consolidation. ACT 112: Negative or not required by law. Electronically signed by: Patel Qiu M.D. 08/14/2023 8:45 AM
[2023-08-14] MEDS: CHLOROTHIAZIDE SODIUM 250 MG in DEXTROSE 5% 50 ML IV STA (09:05)
[2023-08-14] MEDS: LEVOTHYROXINE SODIUM 37.5 MCG in SYRINGE 0 ML IV SCH (09:07)
[2023-08-14] MEDS: MULTI VIT W/MINERALS LIQUID 15 ML UDC NG SCH (09:07)
--- NOTE | 2023-08-14 13:05 | Hospitalist Progress Note ---
Date of Service August 14, 2023 Assessment & Plan (1) Stercoral colitis: (2) Constipation, chronic: (3) Full code status: (4) Aspiration pneumonia: (5) On mechanically assisted ventilation: (6) Acute respiratory failure: Plan Pt is a 72yoF with PMHx significant for HTN, HLD, DMII, hypothyroidism, Hx of brain tumor s/p partial resection, schizophrenia, prior migraine, chronic anemia, recurrent UTIs, urinary incontinence and urinary bladder diverticulum presented after being found down and minimally responsive at home. Patient was admitted to the ICU for management and evaluation of septic shock. Was downgraded and re-intubated in the ICU on 08/11. Acute respiratory failure requiring mechanical ventilation On admission, was secondary to severe sepsis above, requiring intubation Vent management per ICU, pt extubated on 08/08 On Aug 09- pt developed acute respiratory failure once more - Pt with increasing oxygen requirement. - Chest xray with bilateral opacities, pneumonia (?possible aspiration), procalcitonin elevated >34. -Was on hi emy oxygen, pt in restraints. -Pulmonology previously consulted- appreciate recs. -Diuresing with IV Lasix. -Transferred to ICU once more on 08/11 Transferred back to the ICU on 08/11 -was on bipap and re-intubated on 08/11 -bronch also done on 08/11 with cultures obtained and currently growing ryan. Noted mucoid impaction in RLL. -on propofol and fentanyl for sedation Septic shock-POA Pt was hypotensive on admission, requiring ICU admission Required pressor support which has since been discontinued. UA repeatedly without signs of infection, urine Cx with NGTD Chest XR with no signs of infection, biofire negative CT abd/pelvis with suggestion of stercoral colitis, bowel perforation less likely/ruled out Blood Cx x1 grew alpha strep, ?contaminant Was treated with Vanc/Zosyn. 08/10- pt with increased oxygen requirement, chest xray with noted possible pneumonia (also fluid overload), procal newly elevated. Pulmonology consulted- pt switched to meropenem for antibiotic coverage. Repeat Blood Cultures pending. 08/11- pt transferred to the ICU overnight for worsening hypoxia and delirium. Currently febrile, on meropenem, BP in normal limits. Appreciate ICU recs. 08/12-On meropenem, bronch cx/washings pending 08/13- bronch Cx growing ryan 08/14- as dimitris Severe constipation Stercoral Colitis CT Abd/pelvis showing significant stool burden on admission On lactulose, received enemas Reportedly pt had many BMs General surgery consulted- appreciate recs -recommending to continue with bowel regimen, consider suppositories if pt unable to tolerate PO Currently resolved Cognitive Impairment Schizophrenia Acute Agitation/Delirium Required 24 hour support previously, relies on assistance of two care givers [employer] On clozapine, cymbalta, gabapentin at home, all held Pt pulling at lines and more agitated on 08/09 -will re-start home clozapine, per recs needs to titrated up slowly if held for more than 48hrs due to risk of bradycardia, hypotension -pt's home dose of clozapine 50mg qAM, 300mg qPM -clozapine restart on 08/10 at 12.5mg qAM, titrate dose up to home dosing -will hold off on restarting sedating/other meds above (gabapentin, cymbalta) Delirium precautions. MRI brain as per ICU. 08/11-pt currently on precedex 08/14- precedex discontinued on 08/13, psychiatry consulted. FULL CODE STATUS On Aug 10, 2023, advised by CM that there is a rastafarian contact who might be able to weigh in on code discussion given pt has no known family with whom she is in contact to assist with her decisions during critical times. Listed contact in the chart is a Caregiver from an agency and does not want to be responsible for making those decisions for the pt. Mr. Weston Archibald [phone] was contacted about 4:45PM as advised by Case Management. He states that his only contact with the patient was visiting on behalf of the rastafarian. Would not describe himself as a friend. Notes that he was advised by someone in the medical field that this should likely go to the Ethics committee. States that he is concerned about what the law states in terms of being able to speak on her behalf. Does note in his conversations with the patient that she has always wanted to be well and "go home" (he makes the distinction not her heavenly home) so he would assume that she wants heroic measures done. States that he has been at [facility] [address] in the past and has visited pts who have been here for months and states that he believes this is what June would want as well. Next steps currently pending. Appreciate CM assistance. 08/14- pt remains a full code in the ICU Hypothyroidism Levothyroxine resumed, continue Hypertension Held home antihypertensive while patient was on vasopressors BP currently trending back up In setting of restart of pt's clozapine which is needed and has major side effects noted above of hypotension and bradycardia, will resume home antihypertensives once pt has been titrated up to home dose of clozapine. HLD resume statin DMII Hold home metformin ICU hyperglycemia protocol Recurrent UTI Continue home methenamine Recurrent migraines Continue home riboflavin Chronic normocytic anemia Hgb baseline ~10, stable Monitor CBC Diet: Clear liquids DVT prophylaxis: Heparin SQ Dispo: PT/OT ordered, pt has caregivers CODE STATUS: Pt's listed contact in chart was contacted on 08/09 to discuss code status. She states that she works with an agency and is pt's caregiver but is not equipped nor does she want the responsibility of making life/ decisions for pt. She states pt has no POA and is estranged from living family, a sister with whom she was in contact passed recently. CM aware. Admission and Anticipated Discharge Date Admission Date: August 06, 2023 Subjective Pt was seen, intubated and sedated. Review of Systems Review of Systems: Unobtainable due to endotracheal tube Physical Exam Physical Exam: General: Laying in bed intubated Psych: mood and affect could not be determined Neuro: sedated HEENT: NC/AT, intubated CV: RRR Resp:no increased effort of breathing Abdomen: soft Extremities: edema in lower extremities bilaterally. Results & Data Results & Data Vital Signs (Past 12 Hours) Vital Signs Temp Pulse Resp BP Pulse Ox O2 Del Method FiO2 08/14/23 10:25 88 11 L 98 21 08/14/23 09:30 37.9 C H 74 13 99 08/14/23 09:30 122/54 L 08/14/23 09:15 37.8 C H 75 12 98 08/14/23 09:15 124/60 08/14/23 09:00 Mechanical Vent 08/14/23 09:00 37.8 C H 74 8 L 98 08/14/23 09:00 118/53 L 08/14/23 08:45 112/49 L 08/14/23 08:45 37.7 C H 69 15 99 08/14/23 08:30 37.7 C H 74 13 98 08/14/23 08:30 112/50 L 08/14/23 08:15 37.6 C H 73 15 99 08/14/23 08:15 113/51 L 08/14/23 08:05 73 17 100 30 08/14/23 08:00 71 08/14/23 08:00 30 08/14/23 08:00 37.6 C H 71 14 100 08/14/23 07:45 37.6 C H 71 15 100 08/14/23 07:45 113/56 L 08/14/23 07:30 37.5 C 71 17 100 08/14/23 07:30 115/60 08/14/23 07:15 37.5 C 72 16 100 08/14/23 07:15 111/53 L 08/14/23 07:00 37.5 C 70 14 100 08/14/23 07:00 103/49 L 08/14/23 06:45 37.5 C 71 16 100 08/14/23 06:45 114/53 L 08/14/23 06:30 37.5 C 71 15 100 08/14/23 06:30 109/53 L 08/14/23 06:15 37.5 C 73 13 100 08/14/23 06:15 108/54 L 08/14/23 06:00 37.5 C 68 12 100 08/14/23 06:00 116/52 L 08/14/23 05:45 37.5 C 72 13 100 08/14/23 05:45 114/55 L 08/14/23 05:30 37.5 C 71 14 100 08/14/23 05:30 115/54 L 08/14/23 05:00 130/62 08/14/23 05:00 37.4 C 77 18 96 08/14/23 04:00 37.3 C 68 14 100 08/14/23 04:00 35 08/14/23 03:45 37.3 C 67 15 100 08/14/23 03:45 110/48 L 08/14/23 03:35 67 15 100 35 08/14/23 03:00 37.3 C 69 14 100 08/14/23 03:00 108/52 L 02/13/24 02:45 37.4 C 69 14 100 08/14/23 02:45 108/49 L 08/14/23 02:00 37.4 C 71 14 100 (4) Aspiration pneumonia Laterality: bilateral
--- NOTE | 2023-08-14 16:00 | Psychiatric Consultation ---
Date of Consultation August 14, 2023 Impression / Recommendations Impression 72 yo female with remote hx of schizophrenia maintained on same dose of clozaril for what appears to be 20+ years. Unclear last psychotic symptoms and complicated by onset of dementia with intermittent AMS. Review of chart reveals gradual increase in falls, dizziness, and severe constipation. Unclear how much due to medical illness vs. possible clozaril toxicity given no change in dose with age, etc. Unclear if siallorhea at baseline and if that could contribute to aspiration risk. Given risks of orthostasis, alter seizure thresshold, paralytic ileus, PE, etc in patients on clozaril I feel the risks outweigh the immediate benefits of retitrating while still intubated. As no recent psychosis risk of rebound psychosis is left. Overall, I spent a total of 76 minutes with this case, including review of chart, review of records, coordination with nursing,coordination of care with hospitalist service, coordination of care with outpatient provider, and documentation. (1) Schizophrenia: (2) Acute respiratory failure: (3) Aspiration pneumonia: Laterality: bilateral (4) Constipation, chronic: (5) Encephalopathy acute: Plan recs discussed with Dr. Olivas who's main concern is agitation/anxiety on extubation in a few days but this is risk with her AMS regardless of clozaril and clozaril would not yet be back to therapeutic (likely needs lower dose) so will treat any emergency symptoms with prn antipsychotic if necessary. Psych History Identifying Data 72 yo female with a hx of schizophrenia, consult by hospitalist service for recs re: clozaril dosing. Chief Complaint currently intubated History of Present Illness Patient has been seen in ED various occasions for ambulatory dysfunction, dizziness, weakness. Admit 2/5 with presumed sepsis and/or bowel perforation. patient has since required intubation. Her clozaril 50 mg po qam and 300 mg po qhs has been held for the week. Liaison attempting to reach 2nd CM as first is new to her case and no apparent surrogate decision maker to provide additional collateral. Contacted Shanell as patient unable to sign release. Shivani Umaña's nurse returned call confirming dose as well as rx for Cymbalta 60 mg. Patient is seen every 3 months, last seen 05/15 and has been stable without depression or delcid for at least a year. monthly bloodwork for Clozaril REMS but no clozaril levels. Nurse unfamiliar with baseline, patient reportedly dose get AMS with UTIs. looking through [facility] records has been on same dose of clozaril for some time, in looking into archive there is an H&P from Dr. Agudelo for a psych admit in 2002 during which same dose of clozaril is listed. Allergies Allergy/AdvReac Type Severity Reaction Status Date / Time Penicillins Allergy Intermediate Hives Verified 08/06/23 02:02 pollen extracts Allergy Intermediate seasonal Verified 08/06/23 02:02 allergy Cephalosporins AdvReac Intermediate Hallucinations/GI Verified 08/06/23 02:02 UPSET/ CONFUSION cyclobenzaprine AdvReac Intermediate neuro Verified 08/06/23 02:02 [From Flexeril] complications rizatriptan [From Maxalt] AdvReac Intermediate VERTIGO Verified 08/06/23 02:02 Home Medications Medication Instructions Recorded Confirmed Type duloxetine 60 mg capsule,delayed 60 mg PO QAM 04/14/18 08/06/23 History release (Cymbalta) levothyroxine 50 mcg tablet 50 mcg PO DAILYBB 04/14/18 08/06/23 History (Synthroid) loratadine 10 mg tablet (Claritin) 10 mg PO HS PRN Allergy Symptoms 03/25/19 08/06/23 History magnesium oxide 400 mg PO QAM 03/25/19 08/06/23 History atorvastatin 20 mg tablet 20 mg PO HS 11/22/19 08/06/23 History sumatriptan succinate 100 mg tablet 100 mg PO DAILY PRN Headache 11/22/19 08/06/23 History metformin 500 mg tablet 500 mg PO QAM 02/24/21 08/06/23 History riboflavin (vitamin B2) 400 mg 400 mg PO QAM 02/24/21 08/06/23 History tablet fluticasone propionate 50 2 spray intranasal DAILY 07/13/21 08/06/23 History mcg/actuation nasal spray,suspension (Flonase Allergy Relief) aspirin 81 mg chewable tablet 81 mg PO DAILY 05/12/22 08/06/23 History (Aspirin Childrens) docusate sodium 100 mg capsule 100 mg PO BID 07/13/22 08/06/23 History (Colace) gabapentin 100 mg capsule See Rx Instructions .Route .COMPLEX 09/01/22 08/06/23 History cholecalciferol (vitamin D3) 1,250 1,250 mcg PO WK 12/16/22 08/06/23 History mcg (50,000 unit) capsule clozapine 100 mg tablet 300 mg PO HS 12/16/22 08/06/23 History clozapine 25 mg tablet 50 mg PO QAM 12/16/22 08/06/23 History omeprazole 40 mg capsule,delayed 40 mg PO HS 12/16/22 08/06/23 History release lisinopril 20 mg tablet 20 mg PO QAM 01/15/23 08/06/23 History metoprolol succinate 50 mg 50 mg PO QAM 03/08/23 08/06/23 History tablet,extended release 24 hr acetaminophen 500 mg/15 mL oral 100 mg PO Q4H PRN PAIN/FEVER 08/06/23 08/06/23 History liquid amlodipine 5 mg tablet 5 mg PO DAILY 08/06/23 08/06/23 History cyanocobalamin (vitamin B-12) 1,000 mcg PO DAILY 08/06/23 08/06/23 History 1,000 mcg tablet (Vitamin B-12) diclofenac sodium 1 % topical gel 2 g topical TID PRN Pain 08/06/23 08/06/23 History diclofenac sodium 50 mg 50 mg PO BID 08/06/23 08/06/23 History tablet,delayed release iron,carbonyl 65 mg-vitamin C 125 1 tab PO DAILY 08/06/23 08/06/23 History mg tablet,delayed release (Vitron-C) methenamine hippurate 1 gram tablet 1 g PO AMHS 08/06/23 08/06/23 History psyllium 1 tsp PO TID 08/06/23 08/06/23 History Patient History Medical History (Updated 08/14/23 @ 16:26 by Lovely Tsang MD) Schizophrenia Volume overload Weak cough Severe sepsis Aspiration pneumonia Weakness Constipation Bacteremia Acute UTI (urinary tract infection) Generalized weakness AMS (altered mental status) Unresponsive Obtunded COVID-19 Hyponatremia Nausea Dehydration Dizziness Neuropathy Headache Vertigo GERD (gastroesophageal reflux disease) Well controlled with medication Hypothyroidism Anxiety Migraine Hypertension Neuropathy DM2 (diabetes mellitus, type 2) HLD (hyperlipidemia) Somatization disorder Surgical History S/P foot surgery, right X2 S/P foot surgery, left X2 History of colonoscopy History of tooth extraction WISDOM TEETH History of tonsillectomy H/O bilateral cataract extraction History of craniotomy 1969, IN [place] D/T HEADACHE---FOLLOWS W DR. MICHAEL History of cataract surgery H/O cystoscopy H/O foot surgery H/O brain surgery "abt 1970 R parietal exploration for benign lesion" Family History Grandmother Family history of diabetes mellitus PATERNAL Family/Other Family history of diabetes mellitus UNCLE Father Parkinson disease Mother CHF (congestive heart failure) Social History Smoking Status: Never smoker Second Hand Exposure: Yes (FATHER SMOKED); Do You Dip or Chew Tobacco: No; Hx Alcohol Use: No Hx Substance Use: No Preferred Language: Yi Communication Ability: Unable Record Keeper Required: No Beliefs That Will Affect Care: Scientology Scientology Beliefs: latter day marital status: Single Current Living Situation: Personal Care Facility Current Living Situation Comment: caregivers daily, not on weekends How many Children do You have: 0 Feels Safe at Home: Yes Assistive Devices: Walker Physical Exam Psychiatric: intubated Vital Signs (Past 24 Hours): Last Vital Signs Temp 37.9 C H 08/14/23 09:30 Pulse 98 H 08/14/23 15:05 Resp 15 08/14/23 15:05 BP 122/54 L 08/14/23 09:30 Pulse Ox 100 08/14/23 15:05 O2 Del Method Mechanical Vent 08/14/23 09:00 O2 Flow Rate 35 08/13/23 20:00 FiO2 21 08/14/23 15:05 Review of Systems Unobtainable due to endotracheal tube Results & Data (PSY) Laboratory Results 08/14/23 08/14/23 08/14/23 Range/Units 12:17 09:01 03:44 POC Hgb (12.0-16.0) g/dl POC Hct (37-47) % Sample Site POC pH (7.35-7.45) POC pCO2 (35-46) mmHg POC pO2 (80-95) mmHg POC HCO3 (19-24) jason/L POC Total CO2 (24-31) mmol/L POC Base Excess (-9-1.8) jason/L ABG pH (Temp Correct) (7.35-7.45) ABG pCO2 (Temp Corrct (35-46) mmHg POC ABG pO2 at Pt Temp POC ABG O2 Sat (90-95) % Jonas Test O2 Delivery Device POC O2 Rate POC FiO2 % Tidal Volume PEEP POC Sodium (135-144) mmol/L Sodium 144 (136-145) mmol/L POC Potassium (3.3-5.0) mmol/L Potassium 3.7 (3.5-5.1) mmol/L Chloride 108 H (98-107) mmol/L Carbon Dioxide 28 (21-32) mmol/L Anion Gap 8 (3-11) BUN 17 (6-23) mg/dl Creatinine 0.44 L (0.6-1.2) mg/dl Est Cr Clr Drug Dosing 106.7 ml/min Est GFR ( Amer) 116.1 ml/min Est GFR (Non-Af Amer) 100.1 ml/min BUN/Creatinine Ratio 38.6 H (10-20) Glucose 106 H (70-99(Fasting)) mg/dl POC Glucose 115 H 85 (70-99) mg/dl Calcium 7.2 L (8.6-10.3) mg/dl Phosphorus 3.2 (2.5-4.9) mg/dl Magnesium 1.9 (1.7-2.4) mg/dl Urine Color Urine Appearance (Clear) Urine pH (4.5-7.5) Ur Specific [place] (1.000-1.030) Urine Protein (Negative) Urine Glucose (UA) (Negative) Urine Ketones (Negative) Urine Blood (Negative) Urine Nitrite (Negative) Urine Bilirubin (Negative) Urine Urobilinogen (Negative) Ur Leukocyte Esterase (Negative) Urine WBC (Auto) (0-5) /hpf Urine RBC (Auto) (0-4) /hpf U Hyaline Cast (Auto) (0-5) /lpf U Epithel Cells (Auto) (0-5) /lpf Urine Bacteria (Auto) (Negative) 08/14/23 08/14/23 08/13/23 Range/Units 03:41 03:28 23:26 POC Hgb 8.2 L (12.0-16.0) g/dl POC Hct 24 L (37-47) % Sample Site L Brachial POC pH 7.47 H (7.35-7.45) POC pCO2 35 (35-46) mmHg POC pO2 90 (80-95) mmHg POC HCO3 26 H (19-24) jason/L POC Total CO2 27 (24-31) mmol/L POC Base Excess 2.0 H (-9-1.8) jason/L ABG pH (Temp Correct) 7.468 H (7.35-7.45) ABG pCO2 (Temp Corrct 36 (35-46) mmHg POC ABG pO2 at Pt Temp 92 POC ABG O2 Sat 98.0 H (90-95) % Jonas Test Pass O2 Delivery Device Ventilator POC O2 Rate 14 POC FiO2 35 % Tidal Volume 350 PEEP 8 POC Sodium 142 (135-144) mmol/L Sodium (136-145) mmol/L POC Potassium 2.7 L (3.3-5.0) mmol/L Potassium (3.5-5.1) mmol/L Chloride (98-107) mmol/L Carbon Dioxide (21-32) mmol/L Anion Gap (3-11) BUN (6-23) mg/dl Creatinine (0.6-1.2) mg/dl Est Cr Clr Drug Dosing ml/min Est GFR ( Amer) ml/min Est GFR (Non-Af Amer) ml/min BUN/Creatinine Ratio (10-20) Glucose (70-99(Fasting)) mg/dl POC Glucose 93 98 (70-99) mg/dl Calcium (8.6-10.3) mg/dl Phosphorus (2.5-4.9) mg/dl Magnesium (1.7-2.4) mg/dl Urine Color Urine Appearance (Clear) Urine pH (4.5-7.5) Ur Specific [place] (1.000-1.030) Urine Protein (Negative) Urine Glucose (UA) (Negative) Urine Ketones (Negative) Urine Blood (Negative) Urine Nitrite (Negative) Urine Bilirubin (Negative) Urine Urobilinogen (Negative) Ur Leukocyte Esterase (Negative) Urine WBC (Auto) (0-5) /hpf Urine RBC (Auto) (0-4) /hpf U Hyaline Cast (Auto) (0-5) /lpf U Epithel Cells (Auto) (0-5) /lpf Urine Bacteria (Auto) (Negative) 08/13/23 08/13/23 08/13/23 Range/Units 19:56 16:32 10:12 POC Hgb (12.0-16.0) g/dl POC Hct (37-47) % Sample Site POC pH (7.35-7.45) POC pCO2 (35-46) mmHg POC pO2 (80-95) mmHg POC HCO3 (19-24) jason/L POC Total CO2 (24-31) mmol/L POC Base Excess (-9-1.8) jason/L ABG pH (Temp Correct) (7.35-7.45) ABG pCO2 (Temp Corrct (35-46) mmHg POC ABG pO2 at Pt Temp POC ABG O2 Sat (90-95) % Jonas Test O2 Delivery Device POC O2 Rate POC FiO2 % Tidal Volume PEEP POC Sodium (135-144) mmol/L Sodium 144 (136-145) mmol/L POC Potassium (3.3-5.0) mmol/L Potassium 4.5 D (3.5-5.1) mmol/L Chloride 108 H (98-107) mmol/L Carbon Dioxide 28 (21-32) mmol/L Anion Gap 8 (3-11) BUN 17 (6-23) mg/dl Creatinine 0.57 L (0.6-1.2) mg/dl Est Cr Clr Drug Dosing 82.3 ml/min Est GFR ( Amer) 106.6 ml/min Est GFR (Non-Af Amer) 92.0 ml/min BUN/Creatinine Ratio 29.8 H (10-20) Glucose 133 H (70-99(Fasting)) mg/dl POC Glucose 79 (70-99) mg/dl Calcium 7.6 L (8.6-10.3) mg/dl Phosphorus (2.5-4.9) mg/dl Magnesium (1.7-2.4) mg/dl Urine Color Yellow Urine Appearance Clear (Clear) Urine pH >= 9.0 H (4.5-7.5) Ur Specific [place] 1.013 (1.000-1.030) Urine Protein Trace H (Negative) Urine Glucose (UA) Negative (Negative) Urine Ketones Negative (Negative) Urine Blood Negative (Negative) Urine Nitrite Negative (Negative) Urine Bilirubin Negative (Negative) Urine Urobilinogen Negative (Negative) Ur Leukocyte Esterase Negative (Negative) Urine WBC (Auto) 0 (0-5) /hpf Urine RBC (Auto) 5-10 H (0-4) /hpf U Hyaline Cast (Auto) 1-5 (0-5) /lpf U Epithel Cells (Auto) 5-10 H (0-5) /lpf Urine Bacteria (Auto) Negative (Negative) Medications Administered Atorvastatin Calcium (Atorvastatin 20 Mg Tab) 20 mg PO HS JAMEL Stop: 09/09/23 20:59 Last Admin: 08/13/23 20:05 Dose: 20 mg Documented By: Admin: 08/12/23 20:46 Dose: 20 mg Documented By: Admin: 08/11/23 21:48 Dose: 20 mg Documented By: Admin: 08/10/23 19:32 Dose: Not Given Documented By: FARHAD Clozapine (Clozapine 25 Mg Tab) 12.5 mg PO BID [facility]; Protocol Stop: 09/12/23 11:44 Last Admin: 08/13/23 20:08 Dose: 12.5 mg Documented By: Admin: 08/13/23 12:36 Dose: 12.5 mg Documented By: BEBO Enoxaparin Sodium (Enoxaparin Inj 40 Mg/0.4 Ml Syr) 40 mg SQ Q24H [facility] Stop: 09/11/23 13:59 Last Admin: 08/14/23 14:55 Dose: 40 mg Documented By: Admin: 08/13/23 14:32 Dose: 40 mg Documented By: Admin: 08/12/23 12:13 Dose: 40 mg Documented By: ES Ergocalciferol (Ergocalciferol 1250 Mcg (50,000 Units) Cap) 1,250 mcg PO Mo [facility] Stop: 09/12/23 08:59 Last Admin: 08/13/23 07:48 Dose: Not Given Documented By: BEBO Fentanyl Citrate (Fentanyl Bolus From Bag) 50 mcg IV Q60M PRN PRN Reason: Pain or Agitation Stop: 08/25/23 17:20 Last Admin: 08/13/23 03:43 Dose: 50 mcg Documented By: FARHAD Co-signed By: DEMOND Admin: 08/13/23 00:20 Dose: 50 mcg Documented By: FARHAD Co-signed By: CLC Admin: 08/12/23 22:10 Dose: 50 mcg Documented By: FARHAD Co-signed By: JAVAN Admin: 08/12/23 01:40 Dose: 50 mcg Documented By: FARHAD Co-signed By: ARR Admin: 08/12/23 00:27 Dose: 50 mcg Documented By: FARHAD Co-signed By: JAMEY Fluticasone Propionate (Fluticasone Propionate Na Spr 16 Gm Btl) 2 sprays NA DAILY JAMEL Stop: 09/09/23 08:59 Last Admin: 08/14/23 09:06 Dose: 2 sprays Documented By: Admin: 08/13/23 07:45 Dose: Not Given Documented By: Admin: 08/12/23 08:33 Dose: Not Given Documented By: Admin: 08/11/23 10:43 Dose: Not Given Documented By: Admin: 08/10/23 09:41 Dose: 2 sprays Documented By: SHENG Furosemide (Furosemide Inj 20 Mg/2 Ml Vial) 20 mg IV DAILY JAMEL Stop: 09/10/23 08:59 Last Admin: 08/14/23 09:04 Dose: Not Given Documented By: Admin: 08/13/23 08:21 Dose: Not Given Documented By: Admin: 08/12/23 08:33 Dose: 20 mg Documented By: Admin: 08/11/23 08:15 Dose: 20 mg Documented By: RENE Thiamine HCl 100 mg/ Syringe 10 mls @ 2 mls/min IV DAILY JAMEL Stop: 09/11/23 08:59 Last Admin: 08/14/23 09:11 Dose: 2 mls/min Documented By: Admin: 08/13/23 07:53 Dose: 2 mls/min Documented By: Admin: 08/12/23 08:36 Dose: 2 mls/min Documented By: UZAIR Fentanyl Citrate (Fentanyl Citrate) 2,500 mcg in 250 mls @ 5 mls/hr IV .Q50H JAMEL; Protocol Stop: 08/25/23 17:29 Last Titration: 08/14/23 08:45 Dose: 50 mcg/hr, 5 mls/hr Documented By: YVROSE Co-signed By: STEPHANIA Titration: 08/14/23 07:14 Dose: 75 mcg/hr, 7.5 mls/hr Documented By: PAU Co-signed By: YVROSE Titration: 08/13/23 19:11 Dose: 75 mcg/hr, 7.5 mls/hr Documented By: BEBO Co-signed By: MMG Titration: 08/13/23 18:17 Dose: 75 mcg/hr, 7.5 mls/hr Documented By: BEBO Co-signed By: ES Admin: 08/13/23 17:34 Dose: 50 mcg/hr, 5 mls/hr Documented By: BEBO Co-signed By: ES Titration: 08/13/23 17:34 Dose: Infused Documented By: BEBO Co-signed By: ES Titration: 08/13/23 09:58 Dose: 25 mcg/hr, 2.5 mls/hr Documented By: BEBO Co-signed By: ES Titration: 08/13/23 08:51 Dose: 50 mcg/hr, 5 mls/hr Documented By: BEBO Co-signed By: ES Titration: 08/13/23 07:05 Dose: 75 mcg/hr, 7.5 mls/hr Documented By: FARHAD Co-signed By: UZAIR Admin: 08/13/23 05:41 Dose: Not Given Documented By: Titration: 08/13/23 04:42 Dose: 75 mcg/hr, 7.5 mls/hr Documented By: AMIftikhar Co-signed By: TP Titration: 08/12/23 19:07 Dose: 100 mcg/hr, 10 mls/hr Documented By: UZAIR Co-signed By: AMW Admin: 08/12/23 11:58 Dose: 100 mcg/hr, 10 mls/hr Documented By: UZAIR Co-signed By: WRS Titration: 08/12/23 11:58 Dose: Infused Documented By: UZAIR Co-signed By: WRS Titration: 08/12/23 07:10 Dose: 100 mcg/hr, 10 mls/hr Documented By: AMIftikhar Co-signed By: ES Titration: 08/12/23 05:44 Dose: 100 mcg/hr, 10 mls/hr Documented By: AMW Co-signed By: ELS Titration: 08/12/23 00:28 Dose: 125 mcg/hr, 12.5 mls/hr Documented By: AMW Co-signed By: MNAna Admin: 08/11/23 17:48 Dose: 100 mcg/hr, 10 mls/hr Documented By: GREGORY Co-signed By: RENE Pantoprazole Sodium 40 mg/ (Syringe) 10 mls @ 5 mls/min IV DAILY JAMEL Stop: 09/11/23 09:59 Last Admin: 08/14/23 09:11 Dose: 5 mls/min Documented By: Admin: 08/13/23 07:47 Dose: 5 mls/min Documented By: Admin: 08/12/23 10:08 Dose: 5 mls/min Documented By: ES Propofol (Diprivan) 1,000 mg in 100 mls @ 6.102 mls/hr IV .[id number] JAMEL; Tierney col Stop: 08/16/23 03:44 Last Admin: 08/14/23 12:20 Dose: Not Given Documented By: Titration: 08/14/23 09:03 Dose: 15 mcg/kg/min, 6.1 mls/hr Documented By: Admin: 08/14/23 09:02 Dose: Not Given Documented By: Titration: 08/14/23 08:55 Dose: 20 mcg/kg/min, 8.1 mls/hr Documented By: Admin: 08/14/23 08:43 Dose: 25 mcg/kg/min, 10.2 mls/hr Documented By: NMS Co-signed By: JLM Titration: 08/14/23 08:43 Dose: Infused Documented By: NMS Co-signed By: JLM Titration: 08/14/23 07:13 Dose: 30 mcg/kg/min, 12.2 mls/hr Documented By: MMG Co-signed By: NMS Admin: 08/14/23 01:11 Dose: 30 mcg/kg/min, 12.2 mls/hr Documented By: MMG Co-signed By: CP Titration: 08/14/23 01:11 Dose: Infused Documented By: MMG Co-signed By: CP Admin: 08/13/23 22:20 Dose: Not Given Documented By: Titration: 08/13/23 20:45 Dose: 30 mcg/kg/min, 12.2 mls/hr Documented By: Titration: 08/13/23 20:40 Dose: 30 mcg/kg/min, 12.2 mls/hr Documented By: Titration: 08/13/23 20:30 Dose: 25 mcg/kg/min, 10.2 mls/hr Documented By: Titration: 08/13/23 20:10 Dose: 20 mcg/kg/min, 8.1 mls/hr Documented By: Titration: 08/13/23 20:05 Dose: 15 mcg/kg/min, 6.1 mls/hr Documented By: Titration: 08/13/23 19:11 Dose: 24.58 mcg/kg/min, 10 mls/hr Documented By: Admin: 08/13/23 18:16 Dose: 24.58 mcg/kg/min, 10 mls/hr Documented By: BEBO Co-signed By: ES Titration: 08/13/23 18:16 Dose: Infused Documented By: BEBO Co-signed By: ES Titration: 08/13/23 12:45 Dose: 0 mcg/kg/min, 0 mls/hr Documented By: Titration: 08/13/23 10:30 Dose: 10 mcg/kg/min, 4.1 mls/hr Documented By: Titration: 08/13/23 08:51 Dose: 20 mcg/kg/min, 8.1 mls/hr Documented By: Titration: 08/13/23 07:05 Dose: 25 mcg/kg/min, 10.2 mls/hr Documented By: FARHAD Co-signed By: UZAIR Titration: 08/13/23 05:39 Dose: 25 mcg/kg/min, 10.2 mls/hr Documented By: Admin: 08/13/23 03:48 Dose: 20 mcg/kg/min, 8.1 mls/hr Documented By: FARHAD Co-signed By: JAVAN Cefepime HCl 2,000 mg/ Syringe 20 mls @ 5 mls/min IV Q8H JAMEL Stop: 08/17/23 23:59 Last Admin: 08/14/23 12:38 Dose: 5 mls/min Documented By: Admin: 08/14/23 03:42 Dose: 5 mls/min Documented By: MMBam Admin: 08/13/23 20:05 Dose: 5 mls/min Documented By: Admin: 08/13/23 11:41 Dose: 5 mls/min Documented By: BEBO Insulin Aspart (Insulin Aspart Per Unit Charge) 0 units SC Q4 JAMEL Stop: 09/11/23 00:00 Last Admin: 08/14/23 12:19 Dose: Not Given Documented By: Admin: 08/14/23 09:04 Dose: Not Given Documented By: Admin: 08/14/23 03:43 Dose: Not Given Documented By: Admin: 08/13/23 23:34 Dose: Not Given Documented By: Admin: 08/13/23 20:06 Dose: Not Given Documented By: Admin: 08/13/23 17:19 Dose: Not Given Documented By: Admin: 08/13/23 11:40 Dose: Not Given Documented By: Admin: 08/13/23 07:51 Dose: Not Given Documented By: Admin: 08/13/23 04:16 Dose: Not Given Documented By: FARHAD Co-signed By: ALIE Admin: 08/13/23 00:00 Dose: Not Given Documented By: FARHAD Co-signed By: ALIE Admin: 08/12/23 20:47 Dose: Not Given Documented By: AMIftikhar Co-signed By: JAVAN Admin: 08/12/23 16:36 Dose: Not Given Documented By: Admin: 08/12/23 12:13 Dose: 1 units Documented By: UZAIR Co-signed By: STEPHANIA Admin: 08/12/23 08:37 Dose: 2 units Documented By: UZAIR Co-signed By: SHENG Admin: 08/12/23 05:13 Dose: Not Given Documented By: FARHAD Co-signed By: JAMEY Admin: 08/11/23 23:59 Dose: 2 units Documented By: FARHAD Co-signed By: DEMOND Lactulose (Lactulose Syrup 20 Gm/30 Ml Udc) 20 gm PO BID JAMEL Stop: 09/06/23 09:44 Last Admin: 08/14/23 09:06 Dose: 20 gm Documented By: Admin: 08/13/23 20:04 Dose: 20 gm Documented By: Admin: 08/13/23 07:47 Dose: 20 gm Documented By: Admin: 08/12/23 20:46 Dose: 20 gm Documented By: Admin: 08/12/23 08:32 Dose: 20 gm Documented By: Admin: 08/11/23 21:47 Dose: 20 gm Documented By: Admin: 08/11/23 10:43 Dose: Not Given Documented By: Admin: 08/10/23 19:32 Dose: Not Given Documented By: Admin: 08/10/23 09:25 Dose: Not Given Documented By: Admin: 08/09/23 21:21 Dose: Not Given Documented By: Admin: 08/09/23 08:08 Dose: 20 gm Documented By: Admin: 08/08/23 20:38 Dose: 20 gm Documented By: Admin: 08/08/23 08:43 Dose: 20 gm Documented By: Admin: 08/07/23 20:00 Dose: 20 gm Documented By: Admin: 08/07/23 10:10 Dose: 20 gm Documented By: BEBO Miscellaneous (Icu Electrolyte Replacement Protocol) 1 each N/A BID@ [facility]; Protocol Stop: 08/20/23 17:59 Last Admin: 08/14/23 05:11 Dose: 1 each Documented By: Admin: 08/13/23 17:21 Dose: Not Given Documented By: BEBO Multivitamins/Minerals (Multi Vit W/Minerals Liquid 15 Ml Udc) 15 ml NG QAM [facility] Stop: 09/13/23 08:59 Last Admin: 08/14/23 09:07 Dose: 15 ml Documented By: YVROSE Propofol (Propofol Bolus From Bag) 20 mg IV Q5M PRN PRN Reason: Sedation Stop: 08/16/23 03:41 Last Admin: 08/13/23 04:00 Dose: 20 mg Documented By: FARHAD Co-signed By: ALIE Sterile Water (Tube Feeding Water Flush) 125 ml OG Q4H [facility] Stop: 09/12/23 10:59 Last Admin: 08/14/23 14:56 Dose: 125 ml Documented By: Admin: 08/14/23 11:55 Dose: 125 ml Documented By: Admin: 08/14/23 06:04 Dose: 125 ml Documented By: Admin: 08/14/23 03:42 Dose: 125 ml Documented By: Admin: 08/13/23 23:33 Dose: 125 ml Documented By: Admin: 08/13/23 17:35 Dose: 125 ml Documented By: Admin: 08/13/23 14:32 Dose: 125 ml Documented By: Admin: 08/13/23 11:41 Dose: 125 ml Documented By: BEBO Coding Level of Care Code 65[address] [facility] Intl Hosp Care Lvl 3 Diagnoses Schizophrenia F20.9 Acute respiratory failure J96.00 Aspiration pneumonia J69.0 Laterality: bilateral Constipation, chronic K59.09 Encephalopathy acute G93.40
[2023-08-14] MEDS: CHLOROTHIAZIDE SODIUM 250 MG in DEXTROSE 5% 50 ML IV ONE (19:44)
[2023-08-15] MEDS: FIBERSOURCE HN 1.2 CAL 1000 ML BAG OG SCH (04:17)
[2023-08-15 05:36] LABS: BUN Creatinine Ratio 38.2 (10-20); Calcium 7.4 mg/dl (8.6-10.3); Est GFR (African American) 126.3 ml/min; Magnesium 1.7 mg/dl (1.7-2.4); Phosphorus 2.9 mg/dl (2.5-4.9); Potassium 3.2 mmol/L (3.5-5.1)
[2023-08-15 05:37] LABS: iSTAT Allen Test Pass; iSTAT Art Bld Gas pCO2 Correct 33 mmHg (35-46); iSTAT Arterial Blood Gas HCO3 25 meg/L (19-24); iSTAT Arterial Blood Gas pCO2 32 mmHg (35-46); iSTAT Arterial Blood Gas pO2 62 mmHg (80-95); iSTAT Arterial Blood Gas pO2 C 65; iSTAT Carbon Dioxide 26 mmol/L (24-31); iSTAT FiO2 21 %; iSTAT Hematocrit 24 % (37-47); iSTAT Hemoglobin 8.2 g/dl (12.0-16.0); iSTAT Potassium 3.1 mmol/L (3.3-5.0); iSTAT Site R Radial; iSTAT Sodium 137 mmol/L (135-144)
[2023-08-15] MEDS: POTASSIUM CHLORIDE 20 MEQ/15 ML UDC NG SCH (06:24)
[2023-08-15] MEDS: MAGNESIUM OXIDE 400 MG TAB NG SCH (06:25)
[2023-08-15 06:45] LABS: Basophils # (auto) 0.02 K/uL (0.00-0.20); Basophils % (auto) 0.2 %; Hematocrit (blood only) 27.5 % (37.0-47.0); Hemoglobin 9.2 g/dl (12.0-16.0); Immature Granulocytes # (auto) 0.24 K/uL (0.01-0.20); Immature Granulocytes % (auto) 2.7 %; Lymphocytes # (auto) 1.91 K/uL (1.20-3.40); Lymphocytes % (auto) 21.8 %; Mean Corpuscular Hemoglobin 28.9 pg (25.0-34.0); Mean Corpuscular Hgb Conc 33.5 g/dL (32.0-36.0); Mean Corpuscular Volume 86.5 fL (80.0-100.0); Mean Platelet Volume 11.2 fL (9.4-12.4); Monocytes # (auto) 1.04 K/uL (0.11-0.59); Monocytes % (auto) 11.9 %; Neutrophils # (auto) 5.56 K/uL (1.40-6.50); Neutrophils % (auto) 63.4 %; Platelet Count 177 K/uL (130-400); RDW Coefficient of Variation 16.8 % (11.5-14.5); RDW Standard Deviation 52.8 fL (36.4-46.3); Red Blood Count 3.18 M/uL (4.20-5.40); White Blood Count 8.77 K/ul (4.8-10.8)
--- NOTE | 2023-08-15 07:49 | Critical Care Progress Note ---
Date of Service August 15, 2023 Assessment & Plan (1) Aspiration pneumonia: (2) Severe sepsis: (3) Weak cough: (4) Constipation: (5) Volume overload: (6) On mechanically assisted ventilation: Plan 72-year-old female with history of severe psychiatric illness, constipation and dementia who presented to the hospital with acute hypoxic respiratory failure and severe constipation. ICU was reconsulted on the night of 08/10/2023 due to ongoing delirium and hypoxia. Neurologic: CAM ICU: Unable to be assessed Sedation: Propofol, fentanyl --Schizophrenia On clozapine at home It was on hold for more than 48 hours Resumed at a lower dose on 08/13/2023 Pulmonary: -- VDRF Likely secondary to hypoxic respiratory failure secondary to pulmonary edema/fluid overload Reintubated 08/11/2023 Continue with ventilatory support Keep RASS -1 Daily sedation holidays and SBT's Cardiovascular: Echo 08/07/2023 with an EF of 50 to 55%. Mild mitral regurgitation Gastrointestinal: -- Severe constipation Did have bowel movements with suppositories and lactulose Tube feeds Renal: -- Monitor BUNs/creatinine Avoid nephrotoxic medication Infectious disease: -- Multilobar infiltrates Likely pulmonary edema, pneumonia cannot be ruled out Procalciton 35 08/10/2023 --> 10, Antibiotics transitioned to meropenem 08/10/2023 --> de-escalate to cefepime on 08/13/2023 Bronchoscopy cultures from 08/11/2023 growing Hilaria. Nasal MRSA negative Repeat UA negative on 08/13/2023 Hematologic: -- Monitor H&H Endocrine: -- Hypothyroidism Initial pH was elevated at 8.6, repeat TSH within normal limit, 1.287 Continue with levothyroxine CODE STATUS: Full No POA is currently available. Case management assisting with guardianship. --Prophylaxis VTE: Lovenox GI: Pantoprazole Lines: Peripheral Diet: Tube feeds Plan: In/out: -1 L, urine output 2400, +9 L since coming to the hospital AB.50/32/62 on 5/21% Potassium and magnesium being replaced. Trial of extubation today. Complete the course of antibiotic. Psychiatry to decide regarding the dosing of clozapine. Weston Archibald, a friend, was called and voicemail was left on 08/13/2023 I have personally spent 40 minutes of critical care time in the direct management of this patient. This is a life/limb threatening event. This includes time spent evaluating patient, direct bedside care, chart review, placing orders, interpretation of diagnostic studies, discussion with consultants, patient, and family members, as well as other required patient management activities. This time is exclusive of all separately billable procedures, and teaching time and separate from and in addition to any other critical care service time. Thank you for allowing us to participate in the care of this patient. Admission and Anticipated Discharge Date Admission Date: August 06, 2023 Subjective Patient seen and examined at bedside. No acute distress, no adverse events overnight. She was on 25 of fentanyl and 10 of propofol at the time of examination She was breathing over the vent. MAP was in the 70s. Still spiking low-grade fever. Review of Systems 2 Review of Systems: Unobtainable due to endotracheal tube Physical Exam 2 Physical Exam: Constitutional: No acute distress HEENT: PERRLA Respiratory system: Decreased air entry bilaterally, no wheeze, no rhonchi, positive crackles bilaterally CVS: S1-S2 positive, no murmurs or gallops Abdomen: Soft, nontender, nondistended, positive bowel sounds x4 Extremities: +2 pulses bilaterally radialis/ dorsalis pedis, no cyanosis, +1 edema bilateral lower extremity Neuro: RASS -1, breathing over the vent, tracking with eyes but not following commands Psych: Unable to assess G/U: Positive Hou Skin: no rashes, warm and dry Lymphatic: no cervical or axillary lymphadenopathy Results & Data Results & Data Vital Signs (Past 12 Hours) Vital Signs Temp Pulse Resp BP Pulse Ox O2 Del Method FiO2 08/15/23 06:30 37.6 C H 75 13 100 08/15/23 06:30 136/70 08/15/23 06:15 37.6 C H 73 13 100 08/15/23 06:15 126/64 08/15/23 06:00 37.6 C H 74 13 100 08/15/23 06:00 129/68 08/15/23 05:45 37.6 C H 71 13 08/15/23 05:45 124/61 08/15/23 05:30 116/58 L 08/15/23 05:30 37.6 C H 75 13 08/15/23 05:15 116/60 08/15/23 05:15 37.6 C H 75 13 100 08/15/23 05:00 37.6 C H 78 13 97 08/15/23 05:00 122/59 L 08/15/23 04:46 147/71 H 08/15/23 04:15 37.5 C 71 12 100 08/15/23 04:15 114/56 L 08/15/23 04:00 37.5 C 70 14 100 08/15/23 04:00 119/62 08/15/23 04:00 21 08/15/23 03:45 37.5 C 70 15 100 08/15/23 03:45 119/58 L 08/15/23 03:30 37.5 C 71 13 100 08/15/23 03:30 120/60 08/15/23 03:15 113/56 L 08/15/23 03:15 37.5 C 72 15 100 08/15/23 03:00 37.5 C 76 13 99 08/15/23 03:00 124/64 08/15/23 02:45 113/60 08/15/23 02:45 37.5 C 71 13 100 08/15/23 02:30 110/54 L 08/15/23 02:30 37.5 C 74 13 100 08/15/23 02:15 37.4 C 73 13 100 08/15/23 02:15 122/61 08/15/23 02:00 37.5 C 75 12 100 08/15/23 02:00 123/64 08/15/23 01:45 105/52 L 08/15/23 01:45 37.5 C 73 16 100 08/15/23 01:30 37.5 C 73 15 100 08/15/23 01:30 115/54 L 08/15/23 01:15 122/61 08/15/23 01:15 37.6 C H 78 12 100 08/15/23 01:00 37.6 C H 73 15 100 08/15/23 01:00 111/55 L 08/15/23 00:45 37.6 C H 83 15 100 08/15/23 00:45 146/73 H 08/15/23 00:30 148/72 H 08/15/23 00:30 37.6 C H 88 18 99 08/15/23 00:15 37.6 C H 76 14 100 08/15/23 00:15 115/57 L 08/15/23 00:00 75 08/15/23 00:00 37.6 C H 84 16 100 08/15/23 00:00 144/69 H 08/15/23 00:00 21 08/14/23 23:45 37.6 C H 75 13 100 08/14/23 23:45 123/60 08/14/23 23:45 96 H 25 H 90 21 08/14/23 23:30 37.6 C H 79 14 100 08/14/23 23:30 123/57 L 08/14/23 23:15 37.6 C H 78 14 100 08/14/23 23:15 118/56 L 08/14/23 23:00 145/71 H 08/14/23 23:00 37.6 C H 81 12 100 08/14/23 22:45 37.6 C H 79 11 L 100 08/14/23 22:45 129/64 08/14/23 22:30 37.6 C H 78 13 100 08/14/23 22:30 124/61 08/14/23 22:15 37.6 C H 79 13 100 08/14/23 22:15 123/62 08/14/23 22:00 119/79 08/14/23 22:00 37.7 C H 84 13 100 08/14/23 21:45 37.7 C H 78 14 100 08/14/23 21:45 113/58 L 08/14/23 21:30 142/67 H 08/14/23 21:30 37.7 C H 85 14 100 08/14/23 21:15 37.7 C H 79 13 100 08/14/23 21:15 110/56 L 08/14/23 21:00 37.7 C H 80 14 100 08/14/23 21:00 123/62 08/14/23 20:45 37.7 C H 84 15 99 08/14/23 20:45 125/65 08/14/23 20:30 103 H 25 H 100 21 08/14/23 20:15 174/81 H 08/14/23 20:15 37.6 C H 104 H 23 98 08/14/23 20:00 37.7 C H 107 H 22 99 08/14/23 20:00 Mechanical Vent 21 08/14/23 20:00 21 Laboratory Results 08/15/23 04:18 08/15/23 04:08 Coding Level of Care Code 47014 CRITICAL CARE 1ST 30-74M Diagnoses Aspiration pneumonia J69.0 Laterality: bilateral Severe sepsis A41.9; R65.20 Weak cough R05.8 Constipation K59.00 Volume overload E87.70 On mechanically assisted ventilation Z99.11 (1) Aspiration pneumonia Laterality: bilateral
--- NOTE | 2023-08-15 08:03 | Hospitalist Progress Note ---
Date of Service August 15, 2023 Assessment & Plan (1) Stercoral colitis: (2) Constipation, chronic: (3) Full code status: (4) Aspiration pneumonia: (5) On mechanically assisted ventilation: (6) Acute respiratory failure: Plan Pt is a 72yoF with PMHx significant for HTN, HLD, DMII, hypothyroidism, Hx of brain tumor s/p partial resection, schizophrenia, prior migraine, chronic anemia, recurrent UTIs, urinary incontinence and urinary bladder diverticulum presented after being found down and minimally responsive at home. Patient was admitted to the ICU for management and evaluation of septic shock. Was downgraded and re-intubated in the ICU on 08/11. Acute respiratory failure requiring mechanical ventilation On admission, was secondary to severe sepsis above, requiring intubation Vent management per ICU, pt extubated on 08/08 On Aug 09- pt developed acute respiratory failure once more - Pt with increasing oxygen requirement. - Chest xray with bilateral opacities, pneumonia (?possible aspiration), procalcitonin elevated >34. -Was on hi emy oxygen, pt in restraints. -Pulmonology previously consulted- appreciate recs. -Diuresing with IV Lasix. -Transferred to ICU once more on 08/11 Transferred back to the ICU on 08/11 -was on bipap and re-intubated on 08/11 -bronch also done on 08/11 with cultures obtained and currently growing ryan. Noted mucoid impaction in RLL. -on propofol and fentanyl for sedation 08/15 extubated this AM, currently on bipap Septic shock-POA Pt was hypotensive on admission, requiring ICU admission Required pressor support which has since been discontinued. UA repeatedly without signs of infection, urine Cx with NGTD Chest XR with no signs of infection, biofire negative CT abd/pelvis with suggestion of stercoral colitis, bowel perforation less likely/ruled out Blood Cx x1 grew alpha strep, ?contaminant Was treated with Vanc/Zosyn. 08/10- pt with increased oxygen requirement, chest xray with noted possible pneumonia (also fluid overload), procal newly elevated. Pulmonology consulted- pt switched to meropenem for antibiotic coverage. Repeat Blood Cultures pending. 08/11- pt transferred to the ICU overnight for worsening hypoxia and delirium. Currently febrile, on meropenem, BP in normal limits. Appreciate ICU recs. 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 MRI brain as per ICU, mri negative for any acute findings 08/11-pt currently on precedex 08/14- precedex discontinued on 08/13, psychiatry consulted. FULL CODE STATUS On Aug 10, 2023, advised by CM that there is a jewish contact who might be able to weigh in on code discussion given pt has no known family with whom she is in contact to assist with her decisions during critical times. Listed contact in the chart is a Caregiver from an agency and does not want to be responsible for making those decisions for the pt. Mr. Weston Archibald [phone] was contacted about 4:45PM as advised by Case Management. He states that his only contact with the patient was visiting on behalf of the jewish. Would not describe himself as a friend. Notes that he was advised by someone in the medical field that this should likely go to the Ethics committee. States that he is concerned about what the law states in terms of being able to speak on her behalf. Does note in his conversations with the patient that she has always wanted to be well and "go home" (he makes the distinction not her heavenly home) so he would assume that she wants heroic measures done. States that he has been at [facility] in the past and has visited pts who have been here for months and states that he believes this is what June would want as well. Next steps currently pending. Appreciate CM assistance. 08/14- pt remains a full code in the ICU Hypothyroidism Levothyroxine resumed, continue Hypertension Held home antihypertensive while patient was on vasopressors BP currently trending back up In setting of restart of pt's clozapine which is needed and has major side effects noted above of hypotension and bradycardia, will resume home antihypertensives once pt has been titrated up to home dose of clozapine. HLD resume statin DMII Hold home metformin ICU hyperglycemia protocol Recurrent UTI Continue home methenamine Recurrent migraines Continue home riboflavin Chronic normocytic anemia Hgb baseline ~10, stable Monitor CBC Diet: Clear liquids DVT prophylaxis: Heparin SQ Dispo: PT/OT ordered, pt has caregivers CODE STATUS: Pt's listed contact in chart was contacted on 08/09 to discuss code status. She states that she works with an agency and is pt's caregiver but is not equipped nor does she want the responsibility of making life/ decisions for pt. She states pt has no POA and is estranged from living family, a sister with whom she was in contact passed recently. CM aware. Admission and Anticipated Discharge Date Admission Date: August 06, 2023 Subjective Pt seen in follow up of hypoxic resp. failure, was initially intubated on admission and then required re-intubation during her hosp. stay Initially treated for severe constipation, poss. perf. - this was ruled out, pt seen by gen. surgery and having BMs Now managed in ICU for pulm. edema, poss. pna Pt extubated this morning, currently on BiPAP Patient currently does not follow commands, does not answer questions, not able to obtain ROS. Her eyes are open, she is sitting up in bed, she does not appear in distress. Continues to be febrile. Discussed with medical detail representative Review of Systems Review of Systems: Unobtainable due to cognitive status Physical Exam Physical Exam: General: WD/WN F, Sitting up in bed, on BiPAP Psych: mood and affect could not be determined Neuro: awake, but not following commands, eyes are open HEENT: NC/AT CV: RRR Resp: Basilar crackles, no wheezing, on BiPAP Abdomen: soft, seems nontender, + bowel sounds Extremities: edema in lower extremities bilaterally. Results & Data Results & Data Vital Signs (Past 12 Hours) Vital Signs Temp Pulse Resp BP Pulse Ox O2 Del Method FiO2 08/15/23 07:24 86 21 100 21 08/15/23 06:30 37.6 C H 75 13 100 08/15/23 06:30 136/70 08/15/23 06:15 37.6 C H 73 13 100 08/15/23 06:15 126/64 08/15/23 06:00 37.6 C H 74 13 100 08/15/23 06:00 129/68 08/15/23 05:45 37.6 C H 71 13 100 08/15/23 05:45 124/61 08/15/23 05:30 116/58 L 08/15/23 05:30 37.6 C H 75 13 100 08/15/23 05:15 116/60 08/15/23 05:15 37.6 C H 75 13 100 08/15/23 05:00 37.6 C H 78 13 97 08/15/23 05:00 122/59 L 08/15/23 04:46 147/71 H 08/15/23 04:15 37.5 C 71 12 100 08/15/23 04:15 114/56 L 08/15/23 04:00 37.5 C 70 14 100 08/15/23 04:00 119/62 08/15/23 04:00 21 08/15/23 03:45 37.5 C 70 15 100 08/15/23 03:45 119/58 L 08/15/23 03:30 37.5 C 71 13 100 08/15/23 03:30 120/60 08/15/23 03:15 113/56 L 08/15/23 03:15 37.5 C 72 15 100 08/15/23 03:00 37.5 C 76 13 99 08/15/23 03:00 124/64 08/15/23 02:45 113/60 08/15/23 02:45 37.5 C 71 13 100 08/15/23 02:30 110/54 L 08/15/23 02:30 37.5 C 74 13 100 08/15/23 02:15 37.4 C 73 13 100 08/15/23 02:15 122/61 08/15/23 02:00 37.5 C 75 12 100 08/15/23 02:00 123/64 08/15/23 01:45 105/52 L 08/15/23 01:45 37.5 C 73 16 100 08/15/23 01:30 37.5 C 73 15 100 08/15/23 01:30 115/54 L 08/15/23 01:15 122/61 08/15/23 01:15 37.6 C H 78 12 100 08/15/23 01:00 37.6 C H 73 15 100 08/15/23 01:00 111/55 L 08/15/23 00:45 37.6 C H 83 15 100 08/15/23 00:45 146/73 H 08/15/23 00:30 148/72 H 08/15/23 00:30 37.6 C H 88 18 99 08/15/23 00:15 37.6 C H 76 14 100 08/15/23 00:15 115/57 L 08/15/23 00:00 75 08/15/23 00:00 37.6 C H 84 16 100 08/15/23 00:00 144/69 H 08/15/23 00:00 21 08/14/23 23:45 37.6 C H 75 13 100 08/14/23 23:45 123/60 08/14/23 23:45 96 H 25 H 90 21 08/14/23 23:30 37.6 C H 79 14 100 08/14/23 23:30 123/57 L 08/14/23 23:15 37.6 C H 78 14 100 08/14/23 23:15 118/56 L 08/14/23 23:00 145/71 H 08/14/23 23:00 37.6 C H 81 12 100 08/14/23 22:45 37.6 C H 79 11 L 100 08/14/23 22:45 129/64 08/14/23 22:30 37.6 C H 78 13 100 08/14/23 22:30 124/61 08/14/23 22:15 37.6 C H 79 13 100 08/14/23 22:15 123/62 08/14/23 22:00 119/79 08/14/23 22:00 37.7 C H 84 13 100 08/14/23 21:45 37.7 C H 78 14 100 08/14/23 21:45 113/58 L 08/14/23 21:30 142/67 H 08/14/23 21:30 37.7 C H 85 14 100 08/14/23 21:15 37.7 C H 79 13 100 08/14/23 21:15 110/56 L 08/14/23 21:00 37.7 C H 80 14 100 08/14/23 21:00 123/62 08/14/23 20:45 37.7 C H 84 15 99 08/14/23 20:45 125/65 08/14/23 20:30 103 H 25 H 100 21 08/14/23 20:15 174/81 H 08/14/23 20:15 37.6 C H 104 H 23 98 08/14/23 20:00 37.7 C H 107 H 22 99 08/14/23 20:00 Mechanical Vent 21 08/14/23 20:00 21 Laboratory Results 08/15/23 08/15/23 08/15/23 Range/Units 07:37 05:26 04:18 WBC 8.77 (4.8-10.8) K/ul RBC 3.18 L (4.20-5.40) M/uL Hgb 9.2 L (12.0-16.0) g/dl POC Hgb 8.2 L (12.0-16.0) g/dl Hct 27.5 L (37.0-47.0) % POC Hct 24 L (37-47) % MCV 86.5 (80.0-100.0) fL MCH 28.9 (25.0-34.0) pg MCHC 33.5 (32.0-36.0) g/dL RDW Std Deviation 52.8 H (36.4-46.3) fL RDW Coeff of Cyn 16.8 H (11.5-14.5) % Plt Count 177 (130-400) K/uL MPV 11.2 (9.4-12.4) fL Immature Gran % (Auto) 2.7 % Neut % (Auto) 63.4 % Lymph % (Auto) 21.8 % [place] % (Auto) 11.9 % Eos % (Auto) 0.0 % Baso % (Auto) 0.2 % Neut # (Auto) 5.56 (1.40-6.50) K/uL Lymph # (Auto) 1.91 (1.20-3.40) K/uL [place] # (Auto) 1.04 H (0.11-0.59) K/uL Eos # (Auto) 0.00 (0.00-0.50) K/uL Baso # (Auto) 0.02 (0.00-0.20) K/uL Immature Gran # (Auto) 0.24 H (0.01-0.20) K/uL Sample Site R Radial POC pH 7.50 H (7.35-7.45) POC pCO2 32 L (35-46) mmHg POC pO2 62 L (80-95) mmHg POC HCO3 25 H (19-24) jason/L POC Total CO2 26 (24-31) mmol/L POC Base Excess 2.0 H (-9-1.8) jason/L ABG pH (Temp Correct) 7.490 H (7.35-7.45) ABG pCO2 (Temp Corrct 33 L (35-46) mmHg POC ABG pO2 at Pt Temp 65 POC ABG O2 Sat 94.0 (90-95) % Jonas Test Pass O2 Delivery Device Ventilator POC O2 Rate 14 POC FiO2 21 % Tidal Volume 350 PEEP 5 POC Sodium 137 (135-144) mmol/L Sodium (136-145) mmol/L POC Potassium 3.1 L (3.3-5.0) mmol/L Potassium (3.5-5.1) mmol/L Chloride (98-107) mmol/L Carbon Dioxide (21-32) mmol/L Anion Gap (3-11) BUN (6-23) mg/dl Creatinine (0.6-1.2) mg/dl Est Cr Clr Drug Dosing ml/min Est GFR ( Amer) ml/min Est GFR (Non-Af Amer) ml/min BUN/Creatinine Ratio (10-20) Glucose (70-99(Fasting)) mg/dl POC Glucose 93 (70-99) mg/dl Calcium (8.6-10.3) mg/dl Phosphorus (2.5-4.9) mg/dl Magnesium (1.7-2.4) mg/dl 08/15/23 08/15/2324 Range/Units 04:14 04:08 23:12 WBC (4.8-10.8) K/ul RBC (4.20-5.40) M/uL Hgb (12.0-16.0) g/dl POC Hgb (12.0-16.0) g/dl Hct (37.0-47.0) % POC Hct (37-47) % MCV (80.0-100.0) fL MCH (25.0-34.0) pg MCHC (32.0-36.0) g/dL RDW Std Deviation (36.4-46.3) fL RDW Coeff of Cyn (11.5-14.5) % Plt Count (130-400) K/uL MPV (9.4-12.4) fL Immature Gran % (Auto) % Neut % (Auto) % Lymph % (Auto) % [place] % (Auto) % Eos % (Auto) % Baso % (Auto) % Neut # (Auto) (1.40-6.50) K/uL Lymph # (Auto) (1.20-3.40) K/uL [place] # (Auto) (0.11-0.59) K/uL Eos # (Auto) (0.00-0.50) K/uL Baso # (Auto) (0.00-0.20) K/uL Immature Gran # (Auto) (0.01-0.20) K/uL Sample Site POC pH (7.35-7.45) POC pCO2 (35-46) mmHg POC pO2 (80-95) mmHg POC HCO3 (19-24) jason/L POC Total CO2 (24-31) mmol/L POC Base Excess (-9-1.8) jason/L ABG pH (Temp Correct) (7.35-7.45) ABG pCO2 (Temp Corrct (35-46) mmHg POC ABG pO2 at Pt Temp POC ABG O2 Sat (90-95) % Jonas Test O2 Delivery Device POC O2 Rate POC FiO2 % Tidal Volume PEEP POC Sodium (135-144) mmol/L Sodium 138 (136-145) mmol/L POC Potassium (3.3-5.0) mmol/L Potassium 3.2 L (3.5-5.1) mmol/L Chloride 104 (98-107) mmol/L Carbon Dioxide 27 (21-32) mmol/L Anion Gap 7 (3-11) BUN 13 (6-23) mg/dl Creatinine 0.34 L (0.6-1.2) mg/dl Est Cr Clr Drug Dosing 134.0 ml/min Est GFR ( Amer) 126.3 ml/min Est GFR (Non-Af Amer) 109.0 ml/min BUN/Creatinine Ratio 38.2 H (10-20) Glucose 136 H (70-99(Fasting)) mg/dl POC Glucose 135 H 129 H (70-99) mg/dl Calcium 7.4 L (8.6-10.3) mg/dl Phosphorus 2.9 (2.5-4.9) mg/dl Magnesium 1.7 (1.7-2.4) mg/dl 08/14/23 08/14/23 08/14/23 Range/Units 21:05 21:05 17:22 WBC (4.8-10.8) K/ul RBC (4.20-5.40) M/uL Hgb (12.0-16.0) g/dl POC Hgb (12.0-16.0) g/dl Hct (37.0-47.0) % POC Hct (37-47) % MCV (80.0-100.0) fL MCH (25.0-34.0) pg MCHC (32.0-36.0) g/dL RDW Std Deviation (36.4-46.3) fL RDW Coeff of Cyn (11.5-14.5) % Plt Count (130-400) K/uL MPV (9.4-12.4) fL Immature Gran % (Auto) % Neut % (Auto) % Lymph % (Auto) % [place] % (Auto) % Eos % (Auto) % Baso % (Auto) % Neut # (Auto) (1.40-6.50) K/uL Lymph # (Auto) (1.20-3.40) K/uL [place] # (Auto) (0.11-0.59) K/uL Eos # (Auto) (0.00-0.50) K/uL Baso # (Auto) (0.00-0.20) K/uL Immature Gran # (Auto) (0.01-0.20) K/uL Sample Site POC pH (7.35-7.45) POC pCO2 (35-46) mmHg POC pO2 (80-95) mmHg POC HCO3 (19-24) jason/L POC Total CO2 (24-31) mmol/L POC Base Excess (-9-1.8) jason/L ABG pH (Temp Correct) (7.35-7.45) ABG pCO2 (Temp Corrct (35-46) mmHg POC ABG pO2 at Pt Temp POC ABG O2 Sat (90-95) % Jonas Test O2 Delivery Device POC O2 Rate POC FiO2 % Tidal Volume PEEP POC Sodium (135-144) mmol/L Sodium (136-145) mmol/L POC Potassium (3.3-5.0) mmol/L Potassium (3.5-5.1) mmol/L Chloride (98-107) mmol/L Carbon Dioxide (21-32) mmol/L Anion Gap (3-11) BUN (6-23) mg/dl Creatinine (0.6-1.2) mg/dl Est Cr Clr Drug Dosing ml/min Est GFR ( Amer) ml/min Est GFR (Non-Af Amer) ml/min BUN/Creatinine Ratio (10-20) Glucose (70-99(Fasting)) mg/dl POC Glucose 173 H 173 H 138 H (70-99) mg/dl Calcium (8.6-10.3) mg/dl Phosphorus (2.5-4.9) mg/dl Magnesium (1.7-2.4) mg/dl 08/14/23 08/14/23 08/14/23 Range/Units 17:21 12:17 09:01 WBC (4.8-10.8) K/ul RBC (4.20-5.40) M/uL Hgb (12.0-16.0) g/dl POC Hgb (12.0-16.0) g/dl Hct (37.0-47.0) % POC Hct (37-47) % MCV (80.0-100.0) fL MCH (25.0-34.0) pg MCHC (32.0-36.0) g/dL RDW Std Deviation (36.4-46.3) fL RDW Coeff of Cyn (11.5-14.5) % Plt Count (130-400) K/uL MPV (9.4-12.4) fL Immature Gran % (Auto) % Neut % (Auto) % Lymph % (Auto) % [place] % (Auto) % Eos % (Auto) % Baso % (Auto) % Neut # (Auto) (1.40-6.50) K/uL Lymph # (Auto) (1.20-3.40) K/uL [place] # (Auto) (0.11-0.59) K/uL Eos # (Auto) (0.00-0.50) K/uL Baso # (Auto) (0.00-0.20) K/uL Immature Gran # (Auto) (0.01-0.20) K/uL Sample Site POC pH (7.35-7.45) POC pCO2 (35-46) mmHg POC pO2 (80-95) mmHg POC HCO3 (19-24) jason/L POC Total CO2 (24-31) mmol/L POC Base Excess (-9-1.8) jason/L ABG pH (Temp Correct) (7.35-7.45) ABG pCO2 (Temp Corrct (35-46) mmHg POC ABG pO2 at Pt Temp POC ABG O2 Sat (90-95) % Jonas Test O2 Delivery Device POC O2 Rate POC FiO2 % Tidal Volume PEEP POC Sodium (135-144) mmol/L Sodium (136-145) mmol/L POC Potassium (3.3-5.0) mmol/L Potassium (3.5-5.1) mmol/L Chloride (98-107) mmol/L Carbon Dioxide (21-32) mmol/L Anion Gap (3-11) BUN (6-23) mg/dl Creatinine (0.6-1.2) mg/dl Est Cr Clr Drug Dosing ml/min Est GFR ( Amer) ml/min Est GFR (Non-Af Amer) ml/min BUN/Creatinine Ratio (10-20) Glucose (70-99(Fasting)) mg/dl POC Glucose 145 H 115 H 85 (70-99) mg/dl Calcium (8.6-10.3) mg/dl Phosphorus (2.5-4.9) mg/dl Magnesium (1.7-2.4) mg/dl Medications Administered Current Inpatient Medications Atorvastatin Calcium (Atorvastatin 20 Mg Tab) 20 mg PO HS JAMEL Stop: 09/09/23 20:59 Last Admin: 08/14/23 19:45 Dose: 20 mg Clozapine (Clozapine 25 Mg Tab) 12.5 mg PO BID JAMEL; Protocol Stop: 09/12/23 11:44 Last Admin: 08/13/23 20:08 Dose: 12.5 mg Dextrose (Dextrose 50% 50 Ml Syringe) 25 - 50 ml IV UD PRN; Protocol PRN Reason: Hypoglycemia Protocol Stop: 09/05/23 21:53 Enoxaparin Sodium (Enoxaparin Inj 40 Mg/0.4 Ml Syr) 40 mg SQ Q24H JAMEL Stop: 09/11/23 13:59 Last Admin: 08/14/23 14:55 Dose: 40 mg Enteral Nutritional Formula (Fibersource Hn 1.2 German 1000 Ml Bag) 1,000 ml OG UD JAMEL; Protocol Stop: 09/12/23 10:59 Last Admin: 08/15/23 04:17 Dose: 1,000 ml Ergocalciferol (Ergocalciferol 1250 Mcg (50,000 Units) Cap) 1,250 mcg PO Mo JAMEL Stop: 09/12/23 08:59 Last Admin: 08/13/23 07:48 Dose: Not Given Fentanyl Citrate (Fentanyl Bolus From Bag) 50 mcg IV Q60M PRN PRN Reason: Pain or Agitation Stop: 08/25/23 17:20 Last Admin: 08/13/23 03:43 Dose: 50 mcg Fluticasone Propionate (Fluticasone Propionate Na Spr 16 Gm Btl) 2 sprays NA DAILY JAMEL Stop: 09/09/23 08:59 Last Admin: 08/15/23 07:38 Dose: 2 sprays Furosemide (Furosemide 40 Mg/4 Ml Vial) 40 mg IV DAILY [facility] Stop: 09/14/23 08:59 Glucagon (Glucagon For Inj 1 Mg Vial) 1 mg SQ UD PRN; Protocol PRN Reason: Hypoglycemia Protocol Stop: 09/05/23 21:53 Glucose (Glucose 40% Gel 15 Gm Tube) 15 - 30 gm PO UD PRN; Protocol PRN Reason: Hypoglycemia Protocol Stop: 09/05/23 21:53 Glucose (Glucose 10 Tab/Tube) 4 - 8 tab PO UD PRN; Protocol PRN Reason: Hypoglycemia Treatment Stop: 09/05/23 21:53 Glycerin (Glycerin Adult 12 Supp/Box Supp) 1 supp AL DAILY PRN PRN Reason: Constipation Stop: 09/09/23 18:32 Thiamine HCl 100 mg/ Syringe 10 mls @ 2 mls/min IV DAILY [facility] Stop: 09/11/23 08:59 Last Admin: 08/15/23 07:42 Dose: 2 mls/min Fentanyl Citrate (Fentanyl Citrate) 2,500 mcg in 250 mls @ 2.5 mls/hr IV .Q96H [facility]; Protocol Stop: 08/25/23 17:29 Last Titration: 08/14/23 10:00 Dose: 25 mcg/hr, 2.5 mls/hr Pantoprazole Sodium 40 mg/ (Syringe) 10 mls @ 5 mls/min IV DAILY [facility] Stop: 09/11/23 09:59 Last Admin: 08/15/23 07:42 Dose: 5 mls/min Propofol (Diprivan) 1,000 mg in 100 mls @ 8.136 mls/hr IV .[id number] [facility]; Protocol Stop: 08/16/23 03:44 Last Admin: 08/15/23 05:18 Dose: Not Given Cefepime HCl 2,000 mg/ Syringe 20 mls @ 5 mls/min IV Q8H [facility] Stop: 08/17/23 23:59 Last Admin: 08/15/23 04:17 Dose: 5 mls/min Levothyroxine Sodium 37.5 mcg/ (Syringe) 1.875 mls @ 2 mls/min IV Q72H [facility] Stop: 09/14/23 08:59 Potassium Chloride (K Bob / Wtr) 10 meq in 100 mls @ 100 mls/hr IV Q1H [facility] Stop: 08/15/23 11:59 Magnesium Sulfate/Dextrose (Magnesium Sulfate / D5w) 1 gm in 100 mls @ 50 m ls/hr IV Q2H [facility] Stop: 08/15/23 11:59 Insulin Aspart (Insulin Aspart Per Unit Charge) 0 units SC Q4 [facility] Stop: 09/11/23 00:00 Last Admin: 08/15/23 07:38 Dose: Not Given Lactulose (Lactulose Syrup 20 Gm/30 Ml Udc) 20 gm PO BID [facility] Stop: 09/06/23 09:44 Last Admin: 08/15/23 07:39 Dose: 20 gm Miscellaneous (Carbohydrates For Hypoglycemia ) 15 - 30 gm PO UD PRN PRN Reason: Hypoglycemia Protocol Stop: 09/05/23 21:53 Miscellaneous (Icu Electrolyte Replacement Protocol) 1 each N/A BID@06,18 JAMEL; Protocol Stop: 08/20/23 17:59 Last Admin: 08/15/23 06:25 Dose: 1 each Multivitamins/Minerals (Multi Vit W/Minerals Liquid 15 Ml Udc) 15 ml NG QAM JAMEL Stop: 09/13/23 08:59 Last Admin: 08/15/23 07:39 Dose: 15 ml Polyethylene Glycol (Polyethylene (Miralax) 17 Gm Pack) 17 gm PO DAILY PRN PRN Reason: Constipation Stop: 09/09/23 05:17 Propofol (Propofol Bolus From Bag) 20 mg IV Q5M PRN PRN Reason: Sedation Stop: 08/16/23 03:41 Last Admin: 08/15/23 04:18 Dose: 20 mg Sterile Water (Tube Feeding Water Flush) 125 ml OG Q4H JAMEL Stop: 09/12/23 10:59 Last Admin: 08/15/23 07:38 Dose: 125 ml (4) Aspiration pneumonia Laterality: bilateral
--- NOTE | 2023-08-15 08:19 | XRay Report ---
XR chest 1V portable HISTORY: Respiratory failure. COMPARISON: Chest 08/14/2023. FINDINGS: Endotracheal tube terminates 3.3 cm from the vadim. The nasogastric tube terminates below the diaphragm. The tip is not included on this study. No pneumothorax. The heart is normal in size. S mall bilateral pleural effusions and bibasilar densities persist. There is mild central pulmonary vas cular congestion without overt edema. No acute fractures. IMPRESSION: 1. Satisfactory support line placement. 2. Mild pulmonary vascular congestion persists. 3. Small bilateral pleural effusions and hazy bibasilar densities, unchanged. ACT 112: Negative or not required by law. Electronically signed by: Doe Harper M.D. 08/15/2023 8:18 AM
[2023-08-15] MEDS: POTASSIUM CHLORIDE / WTR 10 MEQ/100 ML PLCT IV SCH ×2 (08:28→16:49)
[2023-08-15] MEDS: MAGNESIUM SULFATE / D5W 1 GM/100 ML BAG IV SCH (08:28)
[2023-08-15] MEDS: LEVOTHYROXINE SODIUM 37.5 MCG in SYRINGE 0 ML IV SCH (09:27)
[2023-08-15] MEDS: FUROSEMIDE 40 MG/4 ML VIAL IV SCH (12:36)
[2023-08-15 15:26] LABS: BUN Creatinine Ratio 30.6 (10-20); Calcium 7.6 mg/dl (8.6-10.3); Creatinine Clr Calc Pharmacy 126.5 ml/min; Potassium 3.7 mmol/L (3.5-5.1)
--- NOTE | 2023-08-15 22:22 | Electrocardiogram Report ---
Test Reason : Blood Pressure : / mmHG Vent. Rate : 084 BPM Atrial Rate : 084 BPM P-R Int : 000 ms QRS Dur : 066 ms QT Int : 358 ms P-R-T Axes : 000 035 002 degrees QTc Int : 423 ms Poor data quality, interpretation may be adversely affected Possible Sinus rhythm Low voltage QRS Septal infarct , age undetermined Nonspecific ST abnormality Abnormal ECG When compared with ECG of 10-AUG-2023 10:26, Nonspecific T wave abnormality, improved in Lateral leads Confirmed by Thanh Ramírez ([id number]) on 08/15/2023 10:21:37 PM Referred By: REFERRED SELF Confirmed By:Thanh Ramírez
[2023-08-15] MEDS: MoRPHine SULFATE 2 MG/ML CARP IV STA (22:38)
[2023-08-16 03:34] LABS: Basophils # (auto) 0.02 K/uL (0.00-0.20); Basophils % (auto) 0.2 %; Hematocrit (blood only) 30.5 % (37.0-47.0); Hemoglobin 10.1 g/dl (12.0-16.0); Immature Granulocytes # (auto) 0.16 K/uL (0.01-0.20); Immature Granulocytes % (auto) 1.6 %; Lymphocytes # (auto) 0.97 K/uL (1.20-3.40); Lymphocytes % (auto) 9.9 %; Mean Corpuscular Hemoglobin 28.8 pg (25.0-34.0); Mean Corpuscular Hgb Conc 33.1 g/dL (32.0-36.0); Mean Corpuscular Volume 86.9 fL (80.0-100.0); Monocytes # (auto) 0.67 K/uL (0.11-0.59); Monocytes % (auto) 6.9 %; Neutrophils # (auto) 7.96 K/uL (1.40-6.50); Neutrophils % (auto) 81.4 %; Platelet Count 285 K/uL (130-400); RDW Coefficient of Variation 16.8 % (11.5-14.5); Red Blood Count 3.51 M/uL (4.20-5.40); White Blood Count 9.78 K/ul (4.8-10.8)
[2023-08-16 03:42] LABS: BUN Creatinine Ratio 26.8 (10-20); Calcium 7.5 mg/dl (8.6-10.3); Creatinine Clr Calc Pharmacy 111.1 ml/min; Est GFR (African American) 118.8 ml/min; Est GFR (Non-African American) 102.5 ml/min; Phosphorus 2.7 mg/dl (2.5-4.9); Potassium 3.8 mmol/L (3.5-5.1)
[2023-08-16] MEDS: MAGNESIUM SULFATE / D5W 1 GM/100 ML BAG IV SCH (04:16)
[2023-08-16] MEDS: POTASSIUM CHLORIDE / WTR 10 MEQ/100 ML PLCT IV SCH (04:19)
[2023-08-16] MEDS: MoRPHine SULFATE 2 MG/ML CARP IV STA (04:54)
--- NOTE | 2023-08-16 07:53 | Critical Care Progress Note ---
Date of Service August 16, 2023 Assessment & Plan (1) Aspiration pneumonia: (2) Severe sepsis: (3) Weak cough: (4) Constipation: (5) Volume overload: (6) On mechanically assisted ventilation: Plan 72-year-old female with history of severe psychiatric illness, constipation and dementia who presented to the hospital with acute hypoxic respiratory failure and severe constipation. ICU was reconsulted on the night of 08/10/2023 due to ongoing delirium and hypoxia. Neurologic: [facility] ICU: [facility] Sedation: None --Schizophrenia On clozapine at home It was on hold for more than 48 hours Resumed at a lower dose on 08/13/2023 Pulmonary: -- S/p VDRF Likely secondary to hypoxic respiratory failure secondary to pulmonary edema/fluid overload Reintubated 08/11/2023 --> Extubated 08/15/2023 Cardiovascular: --Hypertension Unfortunately unable to tolerate p.o. medications right now Echo 08/07/2023 with an EF of 50 to 55%. Mild mitral regurgitation Gastrointestinal: -- Severe constipation Did have bowel movements with suppositories and lactulose Renal: -- Monitor BUNs/creatinine Avoid nephrotoxic medication Infectious disease: -- Multilobar infiltrates Likely pulmonary edema, pneumonia cannot be ruled out Procalciton 35 08/10/2023 --> 10, Antibiotics transitioned to meropenem 08/10/2023 --> de-escalate to cefepime on 08/13/2023 Bronchoscopy cultures from 08/11/2023 growing Hilaria. Nasal MRSA negative Repeat UA negative on 08/13/2023 Hematologic: -- Monitor H&H Endocrine: -- Hypothyroidism Initial pH was elevated at 8.6, repeat TSH within normal limit, 1.287 Continue with levothyroxine CODE STATUS: Full No POA is currently available. Case management assisting with guardianship. --Prophylaxis VTE: Lovenox GI: Pantoprazole Lines: Peripheral Diet: Tube feeds Plan: In/out: -3.1 L, urine output 4485 Given the swelling in the right upper extremity will get Doppler of bilateral upper extremity For the blood pressure we will start the patient on 5 mg metoprolol every 6 hours given that she is n.p.o. Will do dedicated swallow eval tomorrow Case was discussed with primary team She is hemodynamically stable to be downgrade to medical floor Weston Archibald, a friend, was called and voicemail was left on 08/13/2023 Please note the above document was generated using voice recognition software. It may contain grammatical, syntax or spelling errors.Any formal questions or concerns about the content, text or information contained within the body of this dictation should be directly addressed to the provider for clarification. Admission and Anticipated Discharge Date Admission Date: August 06, 2023 Subjective Patient seen and examined at bedside. No acute distress, no adverse events overnight She was alert, tracking nodding head to certain questions. Not moving extremities except for wiggling the lower legs. Blood pressure was on the higher side systolic in the 170s with MAP in the 123 She was saturating 96% on room air Review of Systems 2 Review of Systems: Unobtainable due to cognitive status Physical Exam 2 Physical Exam: Constitutional: No acute distress HEENT: PERRLA Respiratory system: Decreased air entry bilaterally, no wheeze, no rhonchi, positive crackles bilaterally CVS: S1-S2 positive, no murmurs or gallops Abdomen: Soft, nontender, nondistended, positive bowel sounds x4 Extremities: +2 pulses bilaterally radialis/ dorsalis pedis, no cyanosis, +1 edema bilateral lower extremity, +2 pitting edema right upper extremity, +1 left upper extremity Neuro: Awake, alert, tracks but does not follow commands Psych: Flat mood and affect G/U: Positive Hou Skin: no rashes, warm and dry Lymphatic: no cervical or axillary lymphadenopathy Results & Data Results & Data Vital Signs (Past 12 Hours) Vital Signs Temp Pulse Resp BP Pulse Ox O2 Del Method FiO2 08/16/23 07:00 37.0 C 81 25 H 100 08/16/23 07:00 142/81 H 08/16/23 06:45 37.0 C 83 30 H 100 08/16/23 04:18 196/124 H 08/16/23 04:18 37.4 C 110 H 35 H 97 08/16/23 04:00 37.4 C 105 H 42 H 191/80 H 97 08/16/23 03:41 91 H 29 H 97 21 08/16/23 03:00 37.5 C 94 H 29 H 161/81 H 96 08/16/23 02:00 37.5 C 102 H 23 164/97 H 97 BiPAP 21 08/16/23 01:00 37.5 C 97 H 21 180/93 H 99 BiPAP 21 08/16/23 00:00 37.6 C H 87 41 H 150/73 H 96 BiPAP 21 08/16/23 00:00 91 H 08/15/23 23:00 37.7 C H 87 29 H 127/68 95 BiPAP 21 08/15/23 22:54 89 26 H 96 21 08/15/23 22:19 37.7 C H 105 H 19 192/106 H 99 08/15/23 22:00 37.7 C H 92 H 25 H 154/78 H 99 08/15/23 21:00 BiPAP 08/15/23 21:00 37.8 C H 87 22 145/74 H 100 BiPAP 08/15/23 20:00 37.8 C H 95 H 25 H 168/75 H 100 BiPAP 21 Laboratory Results 08/16/23 03:12 08/16/23 03:12 Coding Level of Care Code 85235 SUB INP/OBS CARE 3/50MIN Diagnoses Aspiration pneumonia J69.0 Laterality: bilateral Severe sepsis A41.9; R65.20 Weak cough R05.8 Constipation K59.00 Volume overload E87.70 On mechanically assisted ventilation Z99.11 (1) Aspiration pneumonia Laterality: bilateral
--- NOTE | 2023-08-16 08:04 | Hospitalist Progress Note ---
Date of Service August 16, 2023 Assessment & Plan (1) Stercoral colitis: (2) Constipation, chronic: (3) Full code status: (4) Aspiration pneumonia: (5) On mechanically assisted ventilation: (6) Acute respiratory failure: Plan Pt is a 72yoF with PMHx significant for HTN, HLD, DMII, hypothyroidism, Hx of brain tumor s/p partial resection, schizophrenia, prior migraine, chronic anemia, recurrent UTIs, urinary incontinence and urinary bladder diverticulum presented after being found down and minimally responsive at home. Patient was admitted to the ICU for management and evaluation of septic shock. Was downgraded and re-intubated in the ICU on 08/11. Acute respiratory failure requiring mechanical ventilation On admission, was secondary to severe sepsis above, requiring intubation Vent management per ICU, pt extubated on 08/08 On Aug 09- pt developed acute respiratory failure once more - Pt with increasing oxygen requirement. - Chest xray with bilateral opacities, pneumonia (?possible aspiration), procalcitonin elevated >34. -Was on hi emy oxygen, pt in restraints. -Pulmonology previously consulted- appreciate recs. -Diuresing with IV Lasix. -Transferred to ICU once more on 08/11 Transferred back to the ICU on 08/11 -was on bipap and re-intubated on 08/11 -bronch also done on 08/11 with cultures obtained and currently growing ryan. Noted mucoid impaction in RLL. -on propofol and fentanyl for sedation 08/15 extubated this AM, currently on bipap 08/16 off bipap, + secretions requires frequent suctioning Septic shock-POA Pt was hypotensive on admission, requiring ICU admission Required pressor support which has since been discontinued. UA repeatedly without signs of infection, urine Cx with NGTD Chest XR with no signs of infection, biofire negative CT abd/pelvis with suggestion of stercoral colitis, bowel perforation less likely/ruled out Blood Cx x1 grew alpha strep, ?contaminant Was treated with Vanc/Zosyn. 08/10- pt with increased oxygen requirement, chest xray with noted possible pneumonia (also fluid overload), procal newly elevated. Pulmonology consulted- pt switched to meropenem for antibiotic coverage. Repeat Blood Cultures pending. 08/11- pt transferred to the ICU overnight for worsening hypoxia and delirium. Currently febrile, on meropenem, BP in normal limits. Appreciate ICU recs. 08/12-On meropenem, bronch cx/washings pending 08/13- bronch Cx growing ryan 08/14- as dimitris, currently on cefepime Severe constipation Stercoral Colitis CT Abd/pelvis showing significant stool burden on admission On lactulose, received enemas Reportedly pt had many BMs General surgery consulted- appreciate recs -recommending to continue with bowel regimen, consider suppositories if pt unable to tolerate PO Currently resolved Cognitive Impairment Schizophrenia Acute Agitation/Delirium Required 24 hour support previously, relies on assistance of two care givers [employer]ERK On clozapine, cymbalta, gabapentin at home, all held Pt pulling at lines and more agitated on 08/09 -will re-start home clozapine, per recs needs to titrated up slowly if held for more than 48hrs due to risk of bradycardia, hypotension -pt's home dose of clozapine 50mg qAM, 300mg qPM -clozapine restart on 08/10 at 12.5mg qAM, titrate dose up to home dosing -> now on hold, psych consulted -will hold off on restarting sedating/other meds above (gabapentin, cymbalta) Delirium precautions. MRI brain as per ICU, mri negative for any acute findings 08/11-pt currently on precedex 08/14- precedex discontinued on 08/13, psychiatry consulted. FULL CODE STATUS On Aug 10, 2023, advised by CM that there is a zoroastrianism contact who might be able to weigh in on code discussion given pt has no known family with whom she is in contact to assist with her decisions during critical times. Listed contact in the chart is a Caregiver from an agency and does not want to be responsible for making those decisions for the pt. Mr. Weston Archibald [phone] was contacted about 4:45PM as advised by Case Management. He states that his only contact with the patient was visiting on behalf of the zoroastrianism. Would not describe himself as a friend. Notes that he was advised by someone in the medical field that this should likely go to the Ethics committee. States that he is concerned about what the law states in terms of being able to speak on her behalf. Does note in his conversations with the patient that she has always wanted to be well and "go home" (he makes the distinction not her heavenly home) so he would assume that she wants heroic measures done. States that he has been at [facility] in the past and has visited pts who have been here for months and states that he believes this is what June would want as well. Next steps currently pending. Appreciate CM assistance. 08/14- pt remains a full code in the ICU Hypothyroidism Levothyroxine resumed, continue Hypertension Held home antihypertensive while patient was on vasopressors BP currently trending back up In setting of restart of pt's clozapine which is needed and has major side effects noted above of hypotension and bradycardia, will resume home antihypertensives once pt has been titrated up to home dose of clozapine. currently on iv metoprolol HLD resume statin DMII Hold home metformin ICU hyperglycemia protocol Recurrent UTI Continue home methenamine when able to take po Recurrent migraines Continue home riboflavin Chronic normocytic anemia Hgb baseline ~10, stable Monitor CBC Diet: Clear liquids DVT prophylaxis: Heparin SQ Dispo: PT/OT ordered, pt has caregivers CODE STATUS: Pt's listed contact in chart was contacted on 08/09 to discuss code status. She states that she works with an agency and is pt's caregiver but is not equipped nor does she want the responsibility of making life/ decisions for pt. She states pt has no POA and is estranged from living family, a sister with whom she was in contact passed recently. CM aware. Admission and Anticipated Discharge Date Admission Date: August 06, 2023 Subjective Pt seen in follow up of hypoxic resp. failure, was initially intubated on admission and then required re-intubation during her hosp. stay Initially treated for severe constipation, poss. perf. - this was ruled out, pt seen by gen. surgery and having BMs Now managed in ICU for pulm. edema, poss. pna Pt extubated yesterday morning, initially on BiPAP, now off bipap Patient currently does not follow commands, does not answer questions, not able to obtain ROS. Her eyes are open, she is sitting up in bed, she does not appear in any distress. She looks at me when I call her name. Dr. Cordova, neurology present at the bedside and discussed with. Review of Systems Review of Systems: Unobtainable due to cognitive status Physical Exam Physical Exam: General: WD/WN F, Sitting up in bed, in NAD Psych: mood and affect could not be determined Neuro: awake, but not following commands, eyes are open, seems to be weaker on the left HEENT: NC/AT CV: RRR Resp: Basilar crackles, coarse breath sounds Abdomen: soft, seems nontender, + bowel sounds Extremities: edema in lower extremities b/l and upper extremities. Results & Data Results & Data Vital Signs (Past 12 Hours) Vital Signs Temp Pulse Resp BP Pulse Ox O2 Del Method FiO2 08/16/23 07:00 37.0 C 81 25 H 100 08/16/23 07:00 142/81 H 08/16/23 06:45 37.0 C 83 30 H 100 08/16/23 04:18 196/124 H 08/16/23 04:18 37.4 C 110 H 35 H 97 08/16/23 04:00 37.4 C 105 H 42 H 191/80 H 97 08/16/23 03:41 91 H 29 H 97 21 08/16/23 03:00 37.5 C 94 H 29 H 161/81 H 96 08/16/23 02:00 37.5 C 102 H 23 164/97 H 97 BiPAP 08/16/23 01:00 37.5 C 97 H 21 180/93 H 99 BiPAP 08/16/23 00:00 37.6 C H 87 41 H 150/73 H 96 BiPAP 08/16/23 00:00 91 H 08/15/23 23:00 37.7 C H 87 29 H 127/68 95 BiPAP 08/15/23 22:54 89 26 H 96 21 08/15/23 22:19 37.7 C H 105 H 19 192/106 H 99 08/15/23 22:00 37.7 C H 92 H 25 H 154/78 H 99 08/15/23 21:00 BiPAP 08/15/23 21:00 37.8 C H 87 22 145/74 H 100 BiPAP 21 Laboratory Results 08/16/23 08/16/23 08/16/23 Range/Units 07:37 04:01 03:12 WBC 9.78 (4.8-10.8) K/ul RBC 3.51 L (4.20-5.40) M/uL Hgb 10.1 L (12.0-16.0) g/dl Hct 30.5 L (37.0-47.0) % MCV 86.9 (80.0-100.0) fL MCH 28.8 (25.0-34.0) pg MCHC 33.1 (32.0-36.0) g/dL RDW Std Deviation 53.0 H (36.4-46.3) fL RDW Coeff of Cyn 16.8 H (11.5-14.5) % Plt Count 285 D (130-400) K/uL MPV 11.0 (9.4-12.4) fL Immature Gran % (Auto) 1.6 % Neut % (Auto) 81.4 % Lymph % (Auto) 9.9 % Imperial % (Auto) 6.9 % Eos % (Auto) 0.0 % Baso % (Auto) 0.2 % Neut # (Auto) 7.96 H (1.40-6.50) K/uL Lymph # (Auto) 0.97 L (1.20-3.40) K/uL Imperial # (Auto) 0.67 H (0.11-0.59) K/uL Eos # (Auto) 0.00 (0.00-0.50) K/uL Baso # (Auto) 0.02 (0.00-0.20) K/uL Immature Gran # (Auto) 0.16 (0.01-0.20) K/uL Sodium 139 (136-145) mmol/L Potassium 3.8 (3.5-5.1) mmol/L Chloride 106 (98-107) mmol/L Carbon Dioxide 28 (21-32) mmol/L Anion Gap 5 (3-11) BUN 11 (6-23) mg/dl Creatinine 0.41 L (0.6-1.2) mg/dl Est Cr Clr Drug Dosing 111.1 ml/min Est GFR ( Amer) 118.8 ml/min Est GFR (Non-Af Amer) 102.5 ml/min BUN/Creatinine Ratio 26.8 H (10-20) Glucose 148 H (70-99(Fasting)) mg/dl POC Glucose 131 H 141 H (70-99) mg/dl Calcium 7.5 L (8.6-10.3) mg/dl Phosphorus 2.7 (2.5-4.9) mg/dl Magnesium 2.0 (1.7-2.4) mg/dl 08/15/23 08/15/23 08/15/23 Range/Units 23:36 19:40 16:52 WBC (4.8-10.8) K/ul RBC (4.20-5.40) M/uL Hgb (12.0-16.0) g/dl Hct (37.0-47.0) % MCV (80.0-100.0) fL MCH (25.0-34.0) pg MCHC (32.0-36.0) g/dL RDW Std Deviation (36.4-46.3) fL RDW Coeff of Cyn (11.5-14.5) % Plt Count (130-400) K/uL MPV (9.4-12.4) fL Immature Gran % (Auto) % Neut % (Auto) % Lymph % (Auto) % Imperial % (Auto) % Eos % (Auto) % Baso % (Auto) % Neut # (Auto) (1.40-6.50) K/uL Lymph # (Auto) (1.20-3.40) K/uL Imperial # (Auto) (0.11-0.59) K/uL Eos # (Auto) (0.00-0.50) K/uL Baso # (Auto) (0.00-0.20) K/uL Immature Gran # (Auto) (0.01-0.20) K/uL Sodium (136-145) mmol/L Potassium (3.5-5.1) mmol/L Chloride (98-107) mmol/L Carbon Dioxide (21-32) mmol/L Anion Gap (3-11) BUN (6-23) mg/dl Creatinine (0.6-1.2) mg/dl Est Cr Clr Drug Dosing ml/min Est GFR ( Amer) ml/min Est GFR (Non-Af Amer) ml/min BUN/Creatinine Ratio (10-20) Glucose (70-99(Fasting)) mg/dl POC Glucose 139 H 98 120 H (70-99) mg/dl Calcium (8.6-10.3) mg/dl Phosphorus (2.5-4.9) mg/dl Magnesium (1.7-2.4) mg/dl 08/15/23 08/15/23 Range/Units 14:53 12:28 WBC (4.8-10.8) K/ul RBC (4.20-5.40) M/uL Hgb (12.0-16.0) g/dl Hct (37.0-47.0) % MCV (80.0-100.0) fL MCH (25.0-34.0) pg MCHC (32.0-36.0) g/dL RDW Std Deviation (36.4-46.3) fL RDW Coeff of Cyn (11.5-14.5) % Plt Count (130-400) K/uL MPV (9.4-12.4) fL Immature Gran % (Auto) % Neut % (Auto) % Lymph % (Auto) % Imperial % (Auto) % Eos % (Auto) % Baso % (Auto) % Neut # (Auto) (1.40-6.50) K/uL Lymph # (Auto) (1.20-3.40) K/uL Imperial # (Auto) (0.11-0.59) K/uL Eos # (Auto) (0.00-0.50) K/uL Baso # (Auto) (0.00-0.20) K/uL Immature Gran # (Auto) (0.01-0.20) K/uL Sodium 137 (136-145) mmol/L Potassium 3.7 (3.5-5.1) mmol/L Chloride 103 (98-107) mmol/L Carbon Dioxide 28 (21-32) mmol/L Anion Gap 6 (3-11) BUN 11 (6-23) mg/dl Creatinine 0.36 L (0.6-1.2) mg/dl Est Cr Clr Drug Dosing 126.5 ml/min Est GFR ( Amer) 124.0 ml/min Est GFR (Non-Af Amer) 107.0 ml/min BUN/Creatinine Ratio 30.6 H (10-20) Glucose 151 H (70-99(Fasting)) mg/dl POC Glucose 149 H (70-99) mg/dl Calcium 7.6 L (8.6-10.3) mg/dl Phosphorus (2.5-4.9) mg/dl Magnesium 2.0 (1.7-2.4) mg/dl Medications Administered Current Inpatient Medications Atorvastatin Calcium (Atorvastatin 20 Mg Tab) [address] [facility] Stop: 09/09/23 20:59 Last Admin: 08/15/23 20:44 Dose: Not Given Clozapine (Clozapine 25 Mg Tab) 12.5 mg PO BID JAM[facility]; Protocol Stop: 09/12/23 11:44 Last Admin: 08/13/23 20:08 Dose: 12.5 mg Dextrose (Dextrose 50% 50 Ml Syringe) 25 - 50 ml IV UD PRN; Protocol PRN Reason: Hypoglycemia Protocol Stop: 09/05/23 21:53 Enoxaparin Sodium (Enoxaparin Inj 40 Mg/0.4 Ml Syr) [address] [facility] Stop: 09/11/23 13:59 Last Admin: 08/15/23 14:36 Dose: 40 mg Ergocalciferol (Ergocalciferol 1250 Mcg (50,000 Units) Cap) 1,[address] [facility] Stop: 09/12/23 08:59 Last Admin: 08/13/23 07:48 Dose: Not Given Fluticasone Propionate (Fluticasone Propionate Na Spr 16 Gm Btl) [address] [facility] Stop: 09/09/23 08:59 Last Admin: 08/15/23 07:38 Dose: 2 sprays Furosemide (Furosemide 40 Mg/4 Ml Vial) [address] [facility] Stop: 09/14/23 08:59 Last Admin: 08/15/23 12:36 Dose: 40 mg Glucagon (Glucagon For Inj 1 Mg Vial) 1 mg SQ UD PRN; Protocol PRN Reason: Hypoglycemia Protocol Stop: 09/05/23 21:53 Glucose (Glucose 40% Gel 15 Gm Tube) 15 - 30 gm PO UD PRN; Protocol PRN Reason: Hypoglycemia Protocol Stop: 09/05/23 21:53 Glucose (Glucose 10 Tab/Tube) 4 - 8 tab PO UD PRN; Protocol PRN Reason: Hypoglycemia Treatment Stop: 09/05/23 21:53 Glycerin (Glycerin Adult 12 Supp/Box Supp) 1 supp DE DAILY PRN PRN Reason: Constipation Stop: 09/09/23 18:32 Thiamine HCl 100 mg/ Syringe 10 mls @ 2 mls/min IV DAILY [facility] Stop: 09/11/23 08:59 Last Admin: 08/15/23 07:42 Dose: 2 mls/min Pantoprazole Sodium 40 mg/ (Syringe) 10 mls @ 5 mls/min IV DAILY [facility] Stop: 09/11/23 09:59 Last Admin: 08/15/23 07:42 Dose: 5 mls/min Cefepime HCl 2,000 mg/ Syringe 20 mls @ 5 mls/min IV Q8H [facility] Stop: 08/17/23 23:59 Last Admin: 08/16/23 03:59 Dose: 5 mls/min Levothyroxine Sodium 37.5 mcg/ (Syringe) 1.875 mls @ 2 mls/min IV Q72H [facility] Stop: 09/14/23 08:59 Last Admin: 08/15/23 09:27 Dose: 2 mls/min Acetaminophen (Ofirmev) 1,000 mg in 100 mls @ 400 mls/hr IV Q8H PRN PRN Reason: fever or pain Stop: 08/18/23 17:54 Potassium Chloride (K Bob / Wtr) 10 meq in 100 mls @ 100 mls/hr IV Q1H [facility] Stop: 08/16/23 07:59 Last Admin: 08/16/23 07:35 Dose: 100 mls/hr Magnesium Sulfate/Dextrose (Magnesium Sulfate / D5w) 1 gm in 100 mls @ 50 mls/hr IV Q2H [facility] Stop: 08/16/23 07:59 Last Admin: 08/16/23 06:07 Dose: 50 mls/hr Insulin Aspart (Insulin Aspart Per Unit Charge) 0 units SC Q4 [facility] Stop: 09/11/23 00:00 Last Admin: 08/16/23 07:48 Dose: Not Given Lactulose (Lactulose Syrup 20 Gm/30 Ml Udc) 20 gm PO BID [facility] Stop: 09/06/23 09:44 Last Admin: 08/15/23 20:44 Dose: Not Given Miscellaneous (Carbohydrates For Hypoglycemia ) 15 - 30 gm PO UD PRN PRN Reason: Hypoglycemia Protocol Stop: 09/05/23 21:53 Miscellaneous (Icu Electrolyte Replacement Protocol) 1 each N/A BID@ [facility]; Protocol Stop: 08/20/23 17:59 Last Admin: 08/16/23 04:10 Dose: Not Given Multivitamins/Minerals (Multi Vit W/Minerals Liquid 15 Ml Udc) [address] [facility] Stop: 09/13/23 08:59 Last Admin: 08/15/23 07:39 Dose: 15 ml Polyethylene Glycol (Polyethylene (Miralax) 17 Gm Pack) 17 gm PO DAILY PRN PRN Reason: Constipation Stop: 09/09/23 05:17 (4) Aspiration pneumonia Laterality: bilateral
[2023-08-16] MEDS ORDERED: METOPROLOL TARTRATE 1 MG/ML VIAL IV PRN (08:10)
--- NOTE | 2023-08-16 09:22 | Neurology Progress Note ---
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 She is post right posterior craniotomy and "tumor" removed in the 70s (I have no details regarding this). On exam she has slightly less withdrawal and responsiveness and less tone on the left arm and leg compared to the right. This may be old secondary to her previous surgery, although I cannot exclude a new lesion/stroke. She has a history of myoclonus but this has been resolved and there was no myoclonus on exam today. She still has hypocalcemia at 7.5 (earlier was as low as 6.5). EEG August 07 showed generalized slowing from encephalopathy but no epileptiform activity. The patient also has a history of schizophrenia and is on [facility] Recommendations: 1. Now that she is extubated, increase activity as able, include physical, occupational, and speech therapy. 2. If the patient does not have a history of chronic left-sided weakness, consider MRI of the brain with and without contrast when more clinically stable. 3. Otherwise I have no further neurologic testing or treatment recommendations to make at this time Overall, I spent a total of 90 minutes with this case including review of records, direct evaluation the patient at bedside, report generation, and discussion of the case with the patient and RN at bedside, Dr. Olivas, and Dr. Cagle, including differential diagnosis and treatment options. Admission and Anticipated Discharge Date Admission Date: August 06, 2023 Subjective Patient was extubated 24 hours ago. She has considerable increase in secretions. Nursing reports no seizure activity or myoclonic jerking. The patient himself is not verbal Blood pressure is 142/81 she is afebrile 37.0. CBC was largely unremarkable. CHEM profile showed a glucose of 148 and a creatinine of 0.4. Glucose was 131 and calcium was mildly low at 7.5 Results & Data Vital Signs (Past 12 Hours) Vital Signs Temp Pulse Resp BP Pulse Ox O2 Del Method FiO2 08/16/23 07:00 37.0 C 81 25 H 100 08/16/23 07:00 142/81 H 08/16/23 06:45 37.0 C 83 30 H 100 08/16/23 04:18 196/124 H 08/16/23 04:18 37.4 C 110 H 35 H 97 08/16/23 04:00 37.4 C 105 H 42 H 191/80 H 97 08/16/23 03:41 91 H 29 H 97 21 08/16/23 03:00 37.5 C 94 H 29 H 161/81 H 96 08/16/23 02:00 37.5 C 102 H 23 164/97 H 97 BiPAP 08/16/23 01:00 37.5 C 97 H 21 180/93 H 99 BiPAP 08/16/23 00:00 37.6 C H 87 41 H 150/73 H 96 BiPAP 08/16/23 00:00 91 H 08/15/23 23:00 37.7 C H 87 29 H 127/68 95 BiPAP 08/15/23 22:54 89 26 H 96 21 08/15/23 22:19 37.7 C H 105 H 19 192/106 H 99 08/15/23 22:00 37.7 C H 92 H 25 H 154/78 H 99 Exam (Neuro) Physical Exam: Patient was awake and fairly alert. When her name was called she would turn her head and eyes to the side that she was being called from. Extraocular eye muscles were intact horizontally. Vertical eye movement was more difficult to ascertain as she did not follow or track. Neck was somewhat stiff but there was enough mobility to see that she had reasonable downgaze bilaterally. Pupils were 3 mm bilaterally and reactive to light. There may have been a slight asymmetry and flattening at the corner of the mouth on the left compared to the right. She did not voluntarily smile but she did grimace at times which seemed fairly symmetrical. Tongue seem midline and she had positive gag bilaterally. She has considerable increased secretions which gives her some difficulty and labored breathing. No abnormal involuntary movements were noted. There was no myoclonic jerks or obvious tremor. She did have some spontaneous movement of the right greater than the left foot and the right upper extremity. She did not spontaneously move the left upper extremity that I could see There was increased tone in the limbs right side more than left side. There was less resistance on the left than the right. Reflexes were 2/4 in the biceps triceps and quadriceps tendons bilaterally. Toes were neutral to plantar stimulation bilaterally PG Care Time/CCT Total # of Minutes Spent Total Time Spent with Patient: Total time spent is greater than 50% in coordination of care (as documented) at patient's floor/unit and/or counseling patient: Coding Level of Care Code 67885 SUB INP/OBS CARE 3/50MIN Diagnoses Encephalopathy acute G93.40 Myoclonus G25.3 Hypocalcemia E83.51 Time Spent (min) 90 Comment Add modifiers as able
--- NOTE | 2023-08-16 11:27 | XRay Report ---
XR chest 1V portable CLINICAL HISTORY: f/u COMPARISON STUDY: Chest radiograph August 15, 2023. FINDINGS: The endotracheal and nasogastric tubes have been removed. Bibasilar opacities have slightly improved. Small bilateral pleural effusions are similar to prior exam. There is no pneumothorax. No evidence for pulmonary edema. Cardiomediastinal silhouette is stable allowing for patient rotation. IMPRESSION: 1. Interval improvement in bibasilar opacities. 2. Small bilateral pleural effusions. No pneumothorax. ACT 112: Negative or not required by law. Electronically signed by: Lukas Law M.D. 08/16/2023 11:26 AM
[2023-08-16] MEDS: METOPROLOL TARTRATE 1 MG/ML VIAL IV SCH (11:58)
--- NOTE | 2023-08-16 12:32 | Ultrasound Report ---
ULTRASOUND BILATERAL UPPER EXTREMITY VENOUS CLINICAL HISTORY: Upper extremity edema. COMPARISON STUDY: No priors. TECHNIQUE: Real-time, grayscale, and color Doppler sonography of the deep veins of the right and left upper extremity is performed. Compression and augmentation were utilized. FINDINGS: Right upper extremity: Evaluation of the right upper extremity vessels is degraded by overlying hensley ge material. There is no sonographic evidence of deep venous thrombosis identified in the right upper extremity. The right internal jugular, axillary, and brachial veins are patent and normally compress ible. An IV catheter is noted in the basilic vein. Normal venous waveforms and augmentation are seen within the right subclavian vein. The cephalic and basilic veins are clear. The visualized radial and ulnar veins are patent. Left upper extremity: There is no sonographic evidence of deep venous thrombosis identified in the le ft upper extremity. The left internal jugular, axillary, and brachial veins are patent and normally c ompressible. Normal venous waveforms and augmentation are seen within the left subclavian vein. There is a long segment of occlusive superficial venous thrombus throughout the cephalic vein. This measur es greater than 5 cm in length. There is also occlusive superficial venous thrombus within branches o f the basilic vein. The visualized radial and ulnar veins were not visualized due to overlying bandag e material. Soft tissue edema is noted. IMPRESSION: 1. There is no sonographic evidence of deep venous thrombosis identified in the right upper extremity . 2. Occlusive superficial venous thrombus in the left upper extremity as above. ACT 112: Negative or not required by law. Electronically signed by: Patel Qiu M.D. 08/16/2023 12:31 PM
[2023-08-17 04:48] LABS: Basophils # (auto) 0.03 K/uL (0.00-0.20); Basophils % (auto) 0.3 %; Hemoglobin 9.5 g/dl (12.0-16.0); Immature Granulocytes # (auto) 0.11 K/uL (0.01-0.20); Immature Granulocytes % (auto) 1.1 %; Lymphocytes % (auto) 15.7 %; Mean Corpuscular Hemoglobin 28.4 pg (25.0-34.0); Mean Corpuscular Hgb Conc 32.8 g/dL (32.0-36.0); Mean Corpuscular Volume 86.8 fL (80.0-100.0); Mean Platelet Volume 10.6 fL (9.4-12.4); Monocytes # (auto) 0.93 K/uL (0.11-0.59); Monocytes % (auto) 9.7 %; Neutrophils # (auto) 7.01 K/uL (1.40-6.50); Neutrophils % (auto) 73.2 %; Platelet Count 352 K/uL (130-400); RDW Coefficient of Variation 16.9 % (11.5-14.5); Red Blood Count 3.34 M/uL (4.20-5.40); White Blood Count 9.58 K/ul (4.8-10.8)
[2023-08-17 05:05] LABS: BUN Creatinine Ratio 28.9 (10-20); Calcium 7.9 mg/dl (8.6-10.3); Creatinine Clr Calc Pharmacy 100.4 ml/min; Est GFR (African American) 115.2 ml/min; Est GFR (Non-African American) 99.4 ml/min; Magnesium 2.2 mg/dl (1.7-2.4); Phosphorus 2.6 mg/dl (2.5-4.9); Potassium 3.2 mmol/L (3.5-5.1)
[2023-08-17] MEDS: POTASSIUM CHLORIDE / WTR 10 MEQ/100 ML PLCT IV SCH (05:44)
--- NOTE | 2023-08-17 07:20 | Pulmonology Progress Note ---
Date of Service August 17, 2023 Assessment & Plan (1) Aspiration pneumonia: Laterality: bilateral (2) Severe sepsis: (3) Weak cough: (4) Volume overload: Plan 72-year-old female with history of severe psychiatric illness, constipation and dementia who presented to the hospital with acute hypoxic respiratory failure and severe constipation. ICU was reconsulted on the night of 08/10/2023 due to ongoing delirium and hypoxia. -- Multilobar infiltrates Likely pulmonary edema, pneumonia cannot be ruled out Procalciton 35 08/10/2023 --> 10, Antibiotics transitioned to meropenem 08/10/2023 --> de-escalate to cefepime on 08/13/2023 Bronchoscopy cultures from 08/11/2023 growing Hilaria. Nasal MRSA negative Repeat UA negative on 08/13/2023 -- S/p VDRF Likely secondary to hypoxic respiratory failure secondary to pulmonary edema/fluid overload Reintubated 08/11/2023 --> Extubated 08/15/2023 No POA is currently available. Case management assisting with guardianship. Plan: In/out: -3.1 L, urine output [id number] Complete the course of antibiotics Continue with airway clearance technique and aggressive suctioning Would recommend BiPAP nightly and as needed shortness of breath. No further recommendation from pulmonary perspective, will sign off Please call directly with any questions Please note the above document was generated using voice recognition software. It may contain grammatical, syntax or spelling errors.Any formal questions or concerns about the content, text or information contained within the body of this dictation should be directly addressed to the provider for clarification. Admission and Anticipated Discharge Date Admission Date: August 06, 2023 Subjective Patient was seen and examined at bedside. No acute distress, notable symptoms overnight Used BiPAP overnight Was saturating 98-99% on room air at the time She tracks, nods yes/no to certain questions Does not follow commands Review of Systems 2 Review of Systems: Unobtainable due to mental health condition Physical Exam 2 Physical Exam: Constitutional: No acute distress HEENT: PERRLA Respiratory system: Decreased air entry bilaterally, no wheeze, no rhonchi, positive crackles bilaterally CVS: S1-S2 positive, no murmurs or gallops Abdomen: Soft, nontender, nondistended, positive bowel sounds x4 Extremities: +2 pulses bilaterally radialis/ dorsalis pedis, no cyanosis, +1 edema bilateral lower extremity, +2 pitting edema right upper extremity, +1 left upper extremity Neuro: Awake, alert, tracks but does not follow commands Psych: Flat mood and affect G/U: Positive Hou Skin: no rashes, warm and dry Lymphatic: no cervical or axillary lymphadenopathy Results & Data Results & Data Vital Signs (Past 12 Hours) Vital Signs Temp Pulse Pulse Resp BP BP Pulse Ox 08/17/23 07:00 37.7 C H 76 20 153/76 H 96 08/17/23 06:00 37.7 C H 75 19 144/73 H 97 08/17/23 05:04 75 150/78 H 08/17/23 05:00 37.7 C H 73 20 150/78 H 98 08/17/23 05:00 70 132/74 08/17/23 04:31 83 163/96 H 08/17/23 04:17 85 32 H 97 08/17/23 04:00 37.7 C H 83 22 163/96 H 96 08/17/23 03:00 37.6 C H 78 24 148/69 H 96 08/17/23 02:00 37.6 C H 76 19 151/70 H 98 08/17/23 01:00 37.7 C H 78 22 145/75 H 97 08/17/23 00:00 37.7 C H 79 20 151/75 H 97 08/16/23 23:52 80 08/16/23 23:10 74 32 H 97 08/16/23 23:00 37.6 C H 79 18 155/80 H 97 08/16/23 22:30 78 155/80 H 08/16/23 22:16 88 159/82 H 08/16/23 22:00 37.7 C H 88 23 159/82 H 96 08/16/23 21:58 08/16/23 21:00 37.7 C H 88 22 151/78 H 100 08/16/23 20:00 37.5 C 84 20 125/68 93 O2 Del Method FiO2 08/17/23 07:00 08/17/23 06:00 08/17/23 05:04 08/17/23 05:00 08/17/23 05:00 08/17/23 04:31 08/17/23 04:17 21 08/17/23 04:00 08/17/23 03:00 08/17/23 02:00 08/17/23 01:00 08/17/23 00:00 08/16/23 23:52 08/16/23 23:10 21 08/16/23 23:00 BiPAP 21 08/16/23 22:30 08/16/23 22:16 08/16/23 22:00 Room Air 08/16/23 21:58 Room Air 08/16/23 21:00 Room Air 08/16/23 20:00 Room Air Laboratory Results 08/17/23 04:11 08/17/23 04:11 PG Care Time/CCT Total # of Minutes Spent Total Time Spent with Patient: Total time spent is greater than 50% in coordination of care (as documented) at patient's floor/unit and/or counseling patient: Coding Level of Care Code 01857 SUB INP/OBS CARE 3/50MIN Diagnoses Aspiration pneumonia J69.0 Laterality: bilateral Severe sepsis A41.9; R65.20 Weak cough R05.8 Volume overload E87.70
[2023-08-17] MEDS: FUROSEMIDE INJ 20 MG/2 ML VIAL IV SCH (09:11)
--- NOTE | 2023-08-17 11:58 | Hospitalist Progress Note ---
Date of Service August 17, 2023 Assessment & Plan (1) Stercoral colitis: (2) Constipation, chronic: (3) Full code status: (4) Aspiration pneumonia: (5) On mechanically assisted ventilation: (6) Acute respiratory failure: Plan Pt is a 72yoF with PMHx significant for HTN, HLD, DMII, hypothyroidism, Hx of brain tumor s/p partial resection, schizophrenia, prior migraine, chronic anemia, recurrent UTIs, urinary incontinence and urinary bladder diverticulum presented after being found down and minimally responsive at home. Patient was admitted to the ICU for management and evaluation of septic shock. Was downgraded and re-intubated in the ICU on 08/11. Acute respiratory failure requiring mechanical ventilation On admission, was secondary to severe sepsis above, requiring intubation Vent management per ICU, pt extubated on 08/08 On Aug 09- pt developed acute respiratory failure once more - Pt with increasing oxygen requirement. - Chest xray with bilateral opacities, pneumonia (?possible aspiration), procalcitonin elevated >34. -Was on hi emy oxygen, pt in restraints. -Pulmonology previously consulted- appreciate recs. -Diuresing with IV Lasix. -Transferred to ICU once more on 08/11 Transferred back to the ICU on 08/11 -was on bipap and re-intubated on 08/11 -bronch also done on 08/11 with cultures obtained and currently growing ryan. Noted mucoid impaction in RLL. -on propofol and fentanyl for sedation 08/15 extubated this AM, currently on bipap 08/16 off bipap, + secretions requires frequent suctioning 08/17 remains on RA, but requires frequent suctioning Septic shock-POA Pt was hypotensive on admission, requiring ICU admission Required pressor support which has since been discontinued. UA repeatedly without signs of infection, urine Cx with NGTD Chest XR with no signs of infection, biofire negative CT abd/pelvis with suggestion of stercoral colitis, bowel perforation less likely/ruled out Blood Cx x1 grew alpha strep, ?contaminant Was treated with Vanc/Zosyn. 08/10- pt with increased oxygen requirement, chest xray with noted possible pneumonia (also fluid overload), procal newly elevated. Pulmonology consulted- pt switched to meropenem for antibiotic coverage. Repeat Blood Cultures pending. 08/11- pt transferred to the ICU overnight for worsening hypoxia and delirium. Currently febrile, on meropenem, BP in normal limits. Appreciate ICU recs. 08/12-On meropenem, bronch cx/washings pending 08/13- bronch Cx growing ryan 08/14- as dimitris, currently on cefepime Severe constipation Stercoral Colitis CT Abd/pelvis showing significant stool burden on admission On lactulose, received enemas Reportedly pt had many BMs General surgery consulted- appreciate recs -recommending to continue with bowel regimen, consider suppositories if pt unable to tolerate PO Currently resolved Cognitive Impairment Schizophrenia Acute Agitation/Delirium Required 24 hour support previously, relies on assistance of two care givers [employer] On clozapine, cymbalta, gabapentin at home, all held Pt pulling at lines and more agitated on 08/09 -will re-start home clozapine, per recs needs to titrated up slowly if held for more than 48hrs due to risk of bradycardia, hypotension -pt's home dose of clozapine 50mg qAM, 300mg qPM -clozapine restart on 08/10 at 12.5mg qAM, titrate dose up to home dosing -> now on hold, psych consulted -will hold off on restarting sedating/other meds above (gabapentin, cymbalta) Delirium precautions. MRI brain as per ICU, mri negative for any acute findings 08/11-pt currently on precedex 08/14- precedex discontinued on 08/13, psychiatry consulted. FULL CODE STATUS On Aug 10, 2023, advised by CM that there is a hindu contact who might be able to weigh in on code discussion given pt has no known family with whom she is in contact to assist with her decisions during critical times. Listed contact in the chart is a Caregiver from an agency and does not want to be responsible for making those decisions for the pt. Mr. Weston Archibald [phone] was contacted about 4:45PM as advised by Case Management. He states that his only contact with the patient was visiting on behalf of the hindu. Would not describe himself as a friend. Notes that he was advised by someone in the medical field that this should likely go to the Ethics committee. States that he is concerned about what the law states in terms of being able to speak on her behalf. Does note in his conversations with the patient that she has always wanted to be well and "go home" (he makes the distinction not her heavenly home) so he would assume that she wants heroic measures done. States that he has been at [facility] in the past and has visited pts who have been here for months and states that he believes this is what June would want as well. Next steps currently pending. Appreciate CM assistance. 08/14- pt remains a full code in the ICU Hypothyroidism Levothyroxine resumed, continue Hypertension Held home antihypertensive while patient was on vasopressors BP currently trending back up In setting of restart of pt's clozapine which is needed and has major side effects noted above of hypotension and bradycardia, will resume home antihypertensives once pt has been titrated up to home dose of clozapine. currently on iv metoprolol HLD resume statin DMII Hold home metformin ICU hyperglycemia protocol Recurrent UTI Continue home methenamine when able to take po Recurrent migraines Continue home riboflavin Chronic normocytic anemia Hgb baseline ~10, stable Monitor CBC Diet: Clear liquids DVT prophylaxis: Heparin SQ Dispo: PT/OT ordered, pt has caregivers CODE STATUS: Pt's listed contact in chart was contacted on 08/09 to discuss code status. She states that she works with an agency and is pt's caregiver but is not equipped nor does she want the responsibility of making life/ decisions for pt. She states pt has no POA and is estranged from living family, a sister with whom she was in contact passed recently. CM aware. Admission and Anticipated Discharge Date Admission Date: August 06, 2023 Subjective Pt seen in follow up of hypoxic resp. failure, was initially intubated on admission and then required re-intubation during her hosp. stay Initially treated for severe constipation, poss. perf. - this was ruled out, pt seen by gen. surgery and having BMs Now managed in ICU for pulm. edema, poss. pna Pt extubated Patient currently does not follow commands, does not answer questions, not able to obtain ROS. Her eyes are open, she is sitting up in bed, she does not appear in any distress. She looks at me when I call her name. Review of Systems Review of Systems: Unobtainable due to cognitive status Physical Exam Physical Exam: General: WD/WN F, Sitting up in bed, in NAD Psych: mood and affect could not be determined Neuro: awake, but not following commands, eyes are open, seems to be weaker on the left HEENT: NC/AT CV: RRR Resp: Basilar crackles, coarse breath sounds Abdomen: soft, seems nontender, + bowel sounds Extremities: edema in lower extremities b/l and upper extremities. Results & Data Results & Data Vital Signs (Past 12 Hours) Vital Signs Temp Pulse Pulse Resp BP BP Pulse Ox 08/17/23 11:00 155/99 H 08/17/23 11:00 37.9 C H 83 36 H 96 08/17/23 10:00 174/89 H 08/17/23 10:00 37.9 C H 75 29 H 97 08/17/23 09:44 85 155/99 H 08/17/23 09:29 80 172/74 H 08/17/23 09:00 37.8 C H 81 28 H 172/74 H 98 08/17/23 08:00 37.7 C H 76 32 H 164/73 H 97 08/17/23 08:00 70 08/17/23 07:48 79 98 08/17/23 07:00 37.7 C H 76 20 153/76 H 96 08/17/23 06:00 37.7 C H 75 19 144/73 H 97 08/17/23 05:04 75 150/78 H 08/17/23 05:00 37.7 C H 73 20 150/78 H 98 08/17/23 05:00 70 132/74 08/17/23 04:31 83 163/96 H 08/17/23 04:17 85 32 H 97 08/17/23 04:00 37.7 C H 83 22 163/96 H 96 08/17/23 03:00 37.6 C H 78 24 148/69 H 96 08/17/23 02:00 37.6 C H 76 19 151/70 H 98 08/17/23 01:00 37.7 C H 78 22 145/75 H 97 08/17/23 00:00 37.7 C H 79 20 151/75 H 97 FiO2 08/17/23 11:00 08/17/23 11:00 08/17/23 10:00 08/17/23 10:00 08/17/23 09:44 08/17/23 09:29 08/17/23 09:00 08/17/23 08:00 08/17/23 08:00 08/17/23 07:48 08/17/23 07:00 08/17/23 06:00 08/17/23 05:04 08/17/23 05:00 08/17/23 05:00 08/17/23 04:31 08/17/23 04:17 21 08/17/23 04:00 08/17/23 03:00 08/17/23 02:00 08/17/23 01:00 08/17/23 00:00 Laboratory Results 08/17/23 08/17/23 08/17/23 Range/Units 07:54 04:38 04:11 WBC 9.58 (4.8-10.8) K/ul RBC 3.34 L (4.20-5.40) M/uL Hgb 9.5 L (12.0-16.0) g/dl Hct 29.0 L (37.0-47.0) % MCV 86.8 (80.0-100.0) fL MCH 28.4 (25.0-34.0) pg MCHC 32.8 (32.0-36.0) g/dL RDW Std Deviation 53.0 H (36.4-46.3) fL RDW Coeff of Cyn 16.9 H (11.5-14.5) % Plt Count 352 (130-400) K/uL MPV 10.6 (9.4-12.4) fL Immature Gran % (Auto) 1.1 % Neut % (Auto) 73.2 % Lymph % (Auto) 15.7 % [place] % (Auto) 9.7 % Eos % (Auto) 0.0 % Baso % (Auto) 0.3 % Neut # (Auto) 7.01 H (1.40-6.50) K/uL Lymph # (Auto) 1.50 (1.20-3.40) K/uL [place] # (Auto) 0.93 H (0.11-0.59) K/uL Eos # (Auto) 0.00 (0.00-0.50) K/uL Baso # (Auto) 0.03 (0.00-0.20) K/uL Immature Gran # (Auto) 0.11 (0.01-0.20) K/uL Sodium 141 (136-145) mmol/L Potassium 3.2 L (3.5-5.1) mmol/L Chloride 106 (98-107) mmol/L Carbon Dioxide 28 (21-32) mmol/L Anion Gap 7 (3-11) BUN 13 (6-23) mg/dl Creatinine 0.45 L (0.6-1.2) mg/dl Est Cr Clr Drug Dosing 100.4 ml/min Est GFR ( Amer) 115.2 ml/min Est GFR (Non-Af Amer) 99.4 ml/min BUN/Creatinine Ratio 28.9 H (10-20) Glucose 123 H (70-99(Fasting)) mg/dl POC Glucose 112 H 137 H (70-99) mg/dl Calcium 7.9 L (8.6-10.3) mg/dl Phosphorus 2.6 (2.5-4.9) mg/dl Magnesium 2.2 (1.7-2.4) mg/dl 08/16/23 08/16/23 08/16/23 Range/Units 23:26 19:40 17:02 WBC (4.8-10.8) K/ul RBC (4.20-5.40) M/uL Hgb (12.0-16.0) g/dl Hct (37.0-47.0) % MCV (80.0-100.0) fL MCH (25.0-34.0) pg MCHC (32.0-36.0) g/dL RDW Std Deviation (36.4-46.3) fL RDW Coeff of Cyn (11.5-14.5) % Plt Count (130-400) K/uL MPV (9.4-12.4) fL Immature Gran % (Auto) % Neut % (Auto) % Lymph % (Auto) % [place] % (Auto) % Eos % (Auto) % Baso % (Auto) % Neut # (Auto) (1.40-6.50) K/uL Lymph # (Auto) (1.20-3.40) K/uL [place] # (Auto) (0.11-0.59) K/uL Eos # (Auto) (0.00-0.50) K/uL Baso # (Auto) (0.00-0.20) K/uL Immature Gran # (Auto) (0.01-0.20) K/uL Sodium (136-145) mmol/L Potassium (3.5-5.1) mmol/L Chloride (98-107) mmol/L Carbon Dioxide (21-32) mmol/L Anion Gap (3-11) BUN (6-23) mg/dl Creatinine (0.6-1.2) mg/dl Est Cr Clr Drug Dosing ml/min Est GFR ( Amer) ml/min Est GFR (Non-Af Amer) ml/min BUN/Creatinine Ratio (10-20) Glucose (70-99(Fasting)) mg/dl POC Glucose 117 H 117 H 114 H (70-99) mg/dl Calcium (8.6-10.3) mg/dl Phosphorus (2.5-4.9) mg/dl Magnesium (1.7-2.4) mg/dl 08/16/23 Range/Units 12:00 WBC (4.8-10.8) K/ul RBC (4.20-5.40) M/uL Hgb (12.0-16.0) g/dl Hct (37.0-47.0) % MCV (80.0-100.0) fL MCH (25.0-34.0) pg MCHC (32.0-36.0) g/dL RDW Std Deviation (36.4-46.3) fL RDW Coeff of Cyn (11.5-14.5) % Plt Count (130-400) K/uL MPV (9.4-12.4) fL Immature Gran % (Auto) % Neut % (Auto) % Lymph % (Auto) % [place] % (Auto) % Eos % (Auto) % Baso % (Auto) % Neut # (Auto) (1.40-6.50) K/uL Lymph # (Auto) (1.20-3.40) K/uL [place] # (Auto) (0.11-0.59) K/uL Eos # (Auto) (0.00-0.50) K/uL Baso # (Auto) (0.00-0.20) K/uL Immature Gran # (Auto) (0.01-0.20) K/uL Sodium (136-145) mmol/L Potassium (3.5-5.1) mmol/L Chloride (98-107) mmol/L Carbon Dioxide (21-32) mmol/L Anion Gap (3-11) BUN (6-23) mg/dl Creatinine (0.6-1.2) mg/dl Est Cr Clr Drug Dosing ml/min Est GFR ( Amer) ml/min Est GFR (Non-Af Amer) ml/min BUN/Creatinine Ratio (10-20) Glucose (70-99(Fasting)) mg/dl POC Glucose 137 H (70-99) mg/dl Calcium (8.6-10.3) mg/dl Phosphorus (2.5-4.9) mg/dl Magnesium (1.7-2.4) mg/dl Medications Administered Current Inpatient Medications Atorvastatin Calcium (Atorvastatin 20 Mg Tab) 20 mg PO HS [facility] Stop: 09/09/23 20:59 Last Admin: 08/15/23 20:44 Dose: Not Given Clozapine (Clozapine 25 Mg Tab) 12.5 mg PO BID JAMEL; Protocol Stop: 09/12/23 11:44 Last Admin: 08/13/23 20:08 Dose: 12.5 mg Dextrose (Dextrose 50% 50 Ml Syringe) 25 - 50 ml IV UD PRN; Protocol PRN Reason: Hypoglycemia Protocol Stop: 09/05/23 21:53 Enoxaparin Sodium (Enoxaparin Inj 40 Mg/0.4 Ml Syr) 40 mg SQ Q24H JAMEL Stop: 09/11/23 13:59 Last Admin: 08/16/23 14:36 Dose: 40 mg Ergocalciferol (Ergocalciferol 1250 Mcg (50,000 Units) Cap) 1,250 mcg PO Mo JAMEL Stop: 09/12/23 08:59 Last Admin: 08/13/23 07:48 Dose: Not Given Fluticasone Propionate (Fluticasone Propionate Na Spr 16 Gm Btl) 2 sprays NA DAILY JAMEL Stop: 09/09/23 08:59 Last Admin: 08/17/23 09:11 Dose: 2 sprays Furosemide (Furosemide Inj 20 Mg/2 Ml Vial) 20 mg IV DAILY JAMEL Stop: 09/16/23 08:59 Last Admin: 08/17/23 09:11 Dose: 20 mg Glucagon (Glucagon For Inj 1 Mg Vial) 1 mg SQ UD PRN; Protocol PRN Reason: Hypoglycemia Protocol Stop: 09/05/23 21:53 Glucose (Glucose 40% Gel 15 Gm Tube) 15 - 30 gm PO UD PRN; Protocol PRN Reason: Hypoglycemia Protocol Stop: 09/05/23 21:53 Glucose (Glucose 10 Tab/Tube) 4 - 8 tab PO UD PRN; Protocol PRN Reason: Hypoglycemia Treatment Stop: 09/05/23 21:53 Glycerin (Glycerin Adult 12 Supp/Box Supp) 1 supp LA DAILY PRN PRN Reason: Constipation Stop: 09/09/23 18:32 Thiamine HCl 100 mg/ Syringe 10 mls @ 2 mls/min IV DAILY JAMEL Stop: 09/11/23 08:59 Last Admin: 08/17/23 09:28 Dose: 2 mls/min Pantoprazole Sodium 40 mg/ (Syringe) 10 mls @ 5 mls/min IV DAILY [facility] Stop: 09/11/23 09:59 Last Admin: 08/17/23 09:28 Dose: 5 mls/min Cefepime HCl 2,000 mg/ Syringe 20 mls @ 5 mls/min IV Q8H [facility] Stop: 08/17/23 23:59 Last Admin: 08/17/23 04:30 Dose: 5 mls/min Levothyroxine Sodium 37.5 mcg/ (Syringe) 1.875 mls @ 2 mls/min IV Q72H [facility] Stop: 09/14/23 08:59 Last Admin: 08/15/23 09:27 Dose: 2 mls/min Acetaminophen (Ofirmev) 1,000 mg in 100 mls @ 400 mls/hr IV Q8H PRN PRN Reason: fever or pain Stop: 08/18/23 17:54 Potassium Chloride (K Bob / Wtr) 10 meq in 100 mls @ 100 mls/hr IV Q1H [facility] Stop: 08/17/23 13:29 Last Admin: 08/17/23 11:20 Dose: 100 mls/hr Insulin Aspart (Insulin Aspart Per Unit Charge) 0 units SC Q4 [facility] Stop: 09/11/23 00:00 Last Admin: 08/17/23 08:06 Dose: Not Given Lactulose (Lactulose Syrup 20 Gm/30 Ml Udc) 20 gm PO BID JAMEL Stop: 09/06/23 09:44 Last Admin: 08/16/23 09:45 Dose: Not Given Metoprolol Tartrate (Metoprolol Tartrate 1 Mg/Ml Vial) 5 mg IV Q6H J[facility] Stop: 09/15/23 10:29 Last Admin: 08/17/23 09:29 Dose: 5 mg Miscellaneous (Carbohydrates For Hypoglycemia ) 15 - 30 gm PO UD PRN PRN Reason: Hypoglycemia Protocol Stop: 09/05/23 21:53 Miscellaneous (Icu Electrolyte Replacement Protocol) 1 each N/A BID@06,18 [facility]; Protocol Stop: 08/20/23 17:59 Last Admin: 08/17/23 05:26 Dose: 1 each Multivitamins/Minerals (Multi Vit W/Minerals Liquid 15 Ml Udc) 15 ml NG QAM JAMEL Stop: 09/13/23 08:59 Last Admin: 08/16/23 08:31 Dose: 15 ml Polyethylene Glycol (Polyethylene (Miralax) 17 Gm Pack) 17 gm PO DAILY PRN PRN Reason: Constipation Stop: 09/09/23 05:17 (4) Aspiration pneumonia Laterality: bilateral
--- NOTE | 2023-08-17 13:01 | Communication Note ---
Date of Service: August 17, 2023 interim progress reviewed as patient is now extubated, mainly responding to voice, no where near baseline per CM from Joy Valdez who also denies a hx of unilateral weakness. I remain concerned about restarting the patient's clozaril at this time and certainly don't feel needs previous dose given lack of psychotic symptoms for many years. side effects of clozaril include sialorrhea and it's documented she still had some hypersecretions after extubation. Dr. Brown to assume clinical care for service at 5 pm and provide another opinion re: timing of restart of Clozaril or another agent on 08/18 or when MSE improves to point able to complete more of an exam.
[2023-08-17] MEDS ORDERED: Nursing to Pharmacy Communication SCH (19:30)
[2023-08-17] MEDS: D5W AND NSS 1,000 ML IV SCH (21:33)
[2023-08-17] MEDS: ACETAMINOPHEN 1,000 MG/100 ML VIAL IV PRN (23:23)
[2023-08-18 08:05] LABS: Hematocrit (blood only) 28.6 % (37.0-47.0); Hemoglobin 9.1 g/dl (12.0-16.0); Mean Corpuscular Hemoglobin 28.1 pg (25.0-34.0); Mean Corpuscular Hgb Conc 31.8 g/dL (32.0-36.0); Mean Corpuscular Volume 88.3 fL (80.0-100.0); Platelet Count 407 K/uL (130-400); RDW Coefficient of Variation 16.7 % (11.5-14.5); RDW Standard Deviation 53.9 fL (36.4-46.3); Red Blood Count 3.24 M/uL (4.20-5.40); White Blood Count 8.63 K/ul (4.8-10.8)
[2023-08-18 08:21] LABS: BUN Creatinine Ratio 27.5 (10-20); Calcium 7.8 mg/dl (8.6-10.3); Creatinine Clr Calc Pharmacy 99.1 ml/min; Est GFR (African American) 119.8 ml/min; Est GFR (Non-African American) 103.3 ml/min; Magnesium 1.9 mg/dl (1.7-2.4); Phosphorus 2.3 mg/dl (2.5-4.9)
[2023-08-18] MEDS ORDERED: POTASSIUM PHOS 3 MMOL/1 ML INFUSION IV STA (08:44)
--- NOTE | 2023-08-18 08:46 | Hospitalist Progress Note ---
Date of Service August 18, 2023 Assessment & Plan (1) Stercoral colitis: (2) Constipation, chronic: (3) Full code status: (4) Aspiration pneumonia: (5) On mechanically assisted ventilation: (6) Acute respiratory failure: Plan Pt is a 72yoF with PMHx significant for HTN, HLD, DMII, hypothyroidism, Hx of brain tumor s/p partial resection, schizophrenia, prior migraine, chronic anemia, recurrent UTIs, urinary incontinence and urinary bladder diverticulum presented after being found down and minimally responsive at home. Patient was admitted to the ICU for management and evaluation of septic shock. Was downgraded and re-intubated in the ICU on 08/11. Acute respiratory failure requiring mechanical ventilation On admission, was secondary to severe sepsis above, requiring intubation Vent management per ICU, pt extubated on 08/08 On Aug 09- pt developed acute respiratory failure once more - Pt with increasing oxygen requirement. - Chest xray with bilateral opacities, pneumonia (?possible aspiration), procalcitonin elevated >34. -Was on hi emy oxygen, pt in restraints. -Pulmonology previously consulted- appreciate recs. -Diuresing with IV Lasix. -Transferred to ICU once more on 08/11 Transferred back to the ICU on 08/11 -was on bipap and re-intubated on 08/11 -bronch also done on 08/11 with cultures obtained and currently growing ryan. Noted mucoid impaction in RLL. -on propofol and fentanyl for sedation 08/15 extubated this AM, currently on bipap 08/16 off bipap, + secretions requires frequent suctioning 08/17 remains on RA, but requires frequent suctioning Septic shock-POA Pt was hypotensive on admission, requiring ICU admission Required pressor support which has since been discontinued. UA repeatedly without signs of infection, urine Cx with NGTD Chest XR with no signs of infection, biofire negative CT abd/pelvis with suggestion of stercoral colitis, bowel perforation less likely/ruled out Blood Cx x1 grew alpha strep, ?contaminant Was treated with Vanc/Zosyn. 08/10- pt with increased oxygen requirement, chest xray with noted possible pneumonia (also fluid overload), procal newly elevated. Pulmonology consulted- pt switched to meropenem for antibiotic coverage. Repeat Blood Cultures pending. 08/11- pt transferred to the ICU overnight for worsening hypoxia and delirium. Currently febrile, on meropenem, BP in normal limits. Appreciate ICU recs. 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 MRI brain as per ICU, mri negative for any acute findings 08/11-pt currently on precedex 08/14- precedex discontinued on 08/13, psychiatry consulted. FULL CODE STATUS On Aug 10, 2023, advised by CM that there is a [employer] contact who might be able to weigh in on code discussion given pt has no known family with whom she is in contact to assist with her decisions during critical times. Listed contact in the chart is a Caregiver from an agency and does not want to be responsible for making those decisions for the pt. Mr. Weston Archibald [phone] was contacted about 4:45PM as advised by Case Management. He states that his only contact with the patient was visiting on behalf of the [employer]. Would not describe himself as a friend. Notes that he was advised by someone in the medical field that this should likely go to the Ethics committee. States that he is concerned about what the law states in terms of being able to speak on her behalf. Does note in his conversations with the patient that she has always wanted to be well and "go home" (he makes the distinction not her heavenly home) so he would assume that she wants heroic measures done. States that he has been at [facility] in the past and has visited pts who have been here for months and states that he believes this is what June would want as well. Next steps currently pending. Appreciate CM assistance. 08/14- pt remains a full code in the ICU Hypothyroidism Levothyroxine resumed, continue Hypertension Held home antihypertensive while patient was on vasopressors BP currently trending back up In setting of restart of pt's clozapine which is needed and has major side effects noted above of hypotension and bradycardia, will resume home antihypertensives once pt has been titrated up to home dose of clozapine. currently on iv metoprolol HLD resume statin DMII Hold home metformin ICU hyperglycemia protocol Recurrent UTI Continue home methenamine when able to take po Recurrent migraines Continue home riboflavin Chronic normocytic anemia Hgb baseline ~10, stable Monitor CBC Diet: Clear liquids DVT prophylaxis: Heparin SQ Dispo: PT/OT ordered, pt has caregivers CODE STATUS: Pt's listed contact in chart was contacted on 08/09 to discuss code status. She states that she works with an agency and is pt's caregiver but is not equipped nor does she want the responsibility of making life/ decisions for pt. She states pt has no POA and is estranged from living family, a sister with whom she was in contact passed recently. CM aware. Admission and Anticipated Discharge Date Admission Date: August 06, 2023 Subjective Pt seen in follow up of hypoxic resp. failure, was initially intubated on admission and then required re-intubation during her hosp. stay Initially treated for severe constipation, poss. perf. - this was ruled out, pt seen by gen. surgery and having BMs Then managed in ICU for pulm. edema, poss. pna Pt extubated Patient currently does not follow commands, does not answer questions, not able to obtain ROS. Her eyes are open, she is sitting up in bed, she does not appear in any distress. She looks at me when I call her name. Will need nutrition, likely NGT as she does not open her mouth- does not follow commands very much when seen by speech therapist. Discussed w/ speech therapy and RN at the bedside. Review of Systems Review of Systems: All systems reviewed & are unremarkable except as noted in Subjective Physical Exam Physical Exam: General: WD/WN F, Sitting up in bed, in NAD Psych: mood and affect could not be determined Neuro: awake, but not following commands, eyes are open, seems to be weaker on the left HEENT: NC/AT CV: RRR Resp: Basilar crackles, coarse breath sounds Abdomen: soft, seems nontender, + bowel sounds Extremities: edema in lower extremities b/l and upper extremities. Results & Data Results & Data Vital Signs (Past 12 Hours) Vital Signs Temp Pulse Pulse Pulse Resp BP BP 08/18/23 07:04 36.7 C 85 20 152/68 H 08/18/23 04:10 71 172/72 H 08/18/23 03:39 36.9 C 75 20 154/75 H 08/18/23 00:00 78 08/17/23 23:55 73 156/75 H 08/17/23 23:20 37.3 C 88 18 162/71 H 08/17/23 22:02 08/17/23 21:59 78 08/17/23 21:22 85 167/68 H Pulse Ox O2 Del Method 08/18/23 07:04 93 Room Air 08/18/23 04:10 08/18/23 03:39 95 Room Air 08/18/23 00:00 08/17/23 23:55 08/17/23 23:20 93 Room Air 08/17/23 22:02 Room Air 08/17/23 21:59 08/17/23 21:22 Laboratory Results 08/18/23 08/18/23 08/18/23 Range/Units 07:37 07:35 03:56 WBC 8.63 (4.8-10.8) K/ul RBC 3.24 L (4.20-5.40) M/uL Hgb 9.1 L (12.0-16.0) g/dl Hct 28.6 L (37.0-47.0) % MCV 88.3 (80.0-100.0) fL MCH 28.1 (25.0-34.0) pg MCHC 31.8 L (32.0-36.0) g/dL RDW Std Deviation 53.9 H (36.4-46.3) fL RDW Coeff of Cyn 16.7 H (11.5-14.5) % Plt Count 407 H (130-400) K/uL MPV 10.0 (9.4-12.4) fL Sodium 142 (136-145) mmol/L Potassium 3.0 L (3.5-5.1) mmol/L Chloride 110 H (98-107) mmol/L Carbon Dioxide 24 (21-32) mmol/L Anion Gap 8 (3-11) BUN 11 (6-23) mg/dl Creatinine 0.40 L (0.6-1.2) mg/dl Est Cr Clr Drug Dosing 99.1 ml/min Est GFR ( Amer) 119.8 ml/min Est GFR (Non-Af Amer) 103.3 ml/min BUN/Creatinine Ratio 27.5 H (10-20) Glucose 137 H (70-99(Fasting)) mg/dl POC Glucose 130 H 126 H (70-99) mg/dl Calcium 7.8 L (8.6-10.3) mg/dl Phosphorus 2.3 L (2.5-4.9) mg/dl Magnesium 1.9 (1.7-2.4) mg/dl 08/17/23 08/17/23 08/17/23 Range/Units 23:47 21:02 13:02 WBC (4.8-10.8) K/ul RBC (4.20-5.40) M/uL Hgb (12.0-16.0) g/dl Hct (37.0-47.0) % MCV (80.0-100.0) fL MCH (25.0-34.0) pg MCHC (32.0-36.0) g/dL RDW Std Deviation (36.4-46.3) fL RDW Coeff of Cyn (11.5-14.5) % Plt Count (130-400) K/uL MPV (9.4-12.4) fL Sodium (136-145) mmol/L Potassium (3.5-5.1) mmol/L Chloride (98-107) mmol/L Carbon Dioxide (21-32) mmol/L Anion Gap (3-11) BUN (6-23) mg/dl Creatinine (0.6-1.2) mg/dl Est Cr Clr Drug Dosing ml/min Est GFR ( Amer) ml/min Est GFR (Non-Af Amer) ml/min BUN/Creatinine Ratio (10-20) Glucose (70-99(Fasting)) mg/dl POC Glucose 126 H 100 H 115 H (70-99) mg/dl Calcium (8.6-10.3) mg/dl Phosphorus (2.5-4.9) mg/dl Magnesium (1.7-2.4) mg/dl Medications Administered Current Inpatient Medications Atorvastatin Calcium (Atorvastatin 20 Mg Tab) 20 mg PO HS [facility] Stop: 09/09/23 20:59 Last Admin: 08/15/23 20:44 Dose: Not Given Clozapine (Clozapine 25 Mg Tab) 12.5 mg PO BID JAMEL; Protocol Stop: 09/12/23 11:44 Last Admin: 08/13/23 20:08 Dose: 12.5 mg Dextrose (Dextrose 50% 50 Ml Syringe) 25 - 50 ml IV UD PRN; Protocol PRN Reason: Hypoglycemia Protocol Stop: 09/05/23 21:53 Enoxaparin Sodium (Enoxaparin Inj 40 Mg/0.4 Ml Syr) 40 mg SQ Q24H [facility]EL Stop: 09/11/23 13:59 Last Admin: 08/17/23 14:29 Dose: 40 mg Ergocalciferol (Ergocalciferol 1250 Mcg (50,000 Units) Cap) 1,250 mcg PO Mo [facility] Stop: 09/12/23 08:59 Last Admin: 08/13/23 07:48 Dose: Not Given Fluticasone Propionate (Fluticasone Propionate Na Spr 16 Gm Btl) 2 sprays NA DAILY [facility] Stop: 09/09/23 08:59 Last Admin: 08/18/23 08:22 Dose: 2 sprays Furosemide (Furosemide Inj 20 Mg/2 Ml Vial) 20 mg IV DAILY J[facility]EL Stop: 09/16/23 08:59 Last Admin: 08/18/23 08:23 Dose: 20 mg Glucagon (Glucagon For Inj 1 Mg Vial) 1 mg SQ UD PRN; Protocol PRN Reason: Hypoglycemia Protocol Stop: 09/05/23 21:53 Glucose (Glucose 40% Gel 15 Gm Tube) 15 - 30 gm PO UD PRN; Protocol PRN Reason: Hypoglycemia Protocol Stop: 09/05/23 21:53 Glucose (Glucose 10 Tab/Tube) 4 - 8 tab PO UD PRN; Protocol PRN Reason: Hypoglycemia Treatment Stop: 09/05/23 21:53 Glycerin (Glycerin Adult 12 Supp/Box Supp) 1 supp SD DAILY PRN PRN Reason: Constipation Stop: 09/09/23 18:32 Thiamine HCl 100 mg/ Syringe 10 mls @ 2 mls/min IV DAILY J[facility] Stop: 09/11/23 08:59 Last Admin: 08/18/23 08:22 Dose: 2 mls/min Pantoprazole Sodium 40 mg/ (Syringe) 10 mls @ 5 mls/min IV DAILY J[facility] Stop: 09/11/23 09:59 Last Admin: 08/18/23 08:22 Dose: 5 mls/min Levothyroxine Sodium 37.5 mcg/ (Syringe) 1.875 mls @ 2 mls/min IV Q72H [facility] Stop: 09/14/23 08:59 Last Admin: 08/15/23 09:27 Dose: 2 mls/min Acetaminophen (Ofirmev) 1,000 mg in 100 mls @ 400 mls/hr IV Q8H PRN PRN Reason: fever or pain Stop: 08/18/23 17:54 Last Infusion: 08/18/23 00:15 Dose: Infused Dextrose/Sodium Chloride (D5w And Nss) 1,000 mls @ 75 mls/hr IV .[id number] [facility] Stop: 09/16/23 21:14 Last Admin: 08/17/23 21:33 Dose: 75 mls/hr Potassium Chloride (K Bob / Wtr) 10 meq in 100 mls @ 100 mls/hr IV Q1H [facility] Stop: 08/18/23 11:44 Insulin Aspart (Insulin Aspart Per Unit Charge) 0 units SC Q4 [facility] Stop: 09/11/23 00:00 Last Admin: 08/18/23 07:51 Dose: Not Given Lactulose (Lactulose Syrup 20 Gm/30 Ml Udc) 20 gm PO BID [facility] Stop: 09/06/23 09:44 Last Admin: 08/16/23 09:45 Dose: Not Given Metoprolol Tartrate (Metoprolol Tartrate 1 Mg/Ml Vial) 5 mg IV Q6H J[facility] Stop: 09/15/23 10:29 Last Admin: 08/18/23 03:54 Dose: 5 mg Miscellaneous (Carbohydrates For Hypoglycemia ) 15 - 30 gm PO UD PRN PRN Reason: Hypoglycemia Protocol Stop: 09/05/23 21:53 Multivitamins/Minerals (Multi Vit W/Minerals Liquid 15 Ml Udc) 15 ml NG QAM [facility] Stop: 09/13/23 08:59 Last Admin: 08/16/23 08:31 Dose: 15 ml Polyethylene Glycol (Polyethylene (Miralax) 17 Gm Pack) 17 gm PO DAILY PRN PRN Reason: Constipation Stop: 09/09/23 05:17 Potassium Phosphate (Potassium Phos 3 Mmol/1 Ml Infusion) 15 mmol IV NOW STA Stop: 08/18/23 08:45 (4) Aspiration pneumonia Laterality: bilateral
[2023-08-18] MEDS ORDERED: POTASSIUM PHOSPHATE 15 MMOL in SODIUM CHLORIDE 0.9% 250 ML IV ONE (09:00)
[2023-08-18] MEDS: POTASSIUM CHLORIDE / WTR 10 MEQ/100 ML PLCT IV SCH (09:13)
[2023-08-18] MEDS: POTASSIUM PHOSPHATE 15 MMOL in SODIUM CHLORIDE 0.9% 250 ML IV ONE (12:23)
[2023-08-18] MEDS: NYSTATIN SUSP 500,000 U/5 ML UDC PO SCH (20:26)
[2023-08-19 08:27] LABS: Hemoglobin 9.9 g/dl (12.0-16.0); Mean Corpuscular Hemoglobin 28.3 pg (25.0-34.0); Mean Corpuscular Hgb Conc 31.9 g/dL (32.0-36.0); Mean Corpuscular Volume 88.6 fL (80.0-100.0); Mean Platelet Volume 10.2 fL (9.4-12.4); Platelet Count 495 K/uL (130-400); RDW Coefficient of Variation 17.1 % (11.5-14.5); RDW Standard Deviation 54.2 fL (36.4-46.3); White Blood Count 9.73 K/ul (4.8-10.8)
[2023-08-19 08:39] LABS: BUN Creatinine Ratio 31.7 (10-20); Calcium 8.2 mg/dl (8.6-10.3); Creatinine Clr Calc Pharmacy 104.6 ml/min; Est GFR (African American) 118.8 ml/min; Est GFR (Non-African American) 102.5 ml/min; Magnesium 1.9 mg/dl (1.7-2.4); Potassium 3.2 mmol/L (3.5-5.1)
--- NOTE | 2023-08-19 09:09 | Hospitalist Progress Note ---
Date of Service August 19, 2023 Assessment & Plan (1) Stercoral colitis: (2) Constipation, chronic: (3) Full code status: (4) Aspiration pneumonia: (5) On mechanically assisted ventilation: (6) Acute respiratory failure: Plan Pt is a 72yoF with PMHx significant for HTN, HLD, DMII, hypothyroidism, Hx of brain tumor s/p partial resection, schizophrenia, prior migraine, chronic anemia, recurrent UTIs, urinary incontinence and urinary bladder diverticulum presented after being found down and minimally responsive at home. Patient was admitted to the ICU for management and evaluation of septic shock. Was downgraded and re-intubated in the ICU on 08/11. Acute respiratory failure requiring mechanical ventilation On admission, was secondary to severe sepsis above, requiring intubation Vent management per ICU, pt extubated on 08/08 On Aug 09- pt developed acute respiratory failure once more - Pt with increasing oxygen requirement. - Chest xray with bilateral opacities, pneumonia (?possible aspiration), procalcitonin elevated >34. -Was on hi emy oxygen, pt in restraints. -Pulmonology previously consulted- appreciate recs. -Diuresing with IV Lasix. -Transferred to ICU once more on 08/11 Transferred back to the ICU on 08/11 -was on bipap and re-intubated on 08/11 -bronch also done on 08/11 with cultures obtained and currently growing ryan. Noted mucoid impaction in RLL. -on propofol and fentanyl for sedation 08/15 extubated this AM, currently on bipap 08/16 off bipap, + secretions requires frequent suctioning 08/17-18 remains on RA, but requires frequent suctioning Septic shock-POA Pt was hypotensive on admission, requiring ICU admission Required pressor support which has since been discontinued. UA repeatedly without signs of infection, urine Cx with NGTD Chest XR with no signs of infection, biofire negative CT abd/pelvis with suggestion of stercoral colitis, bowel perforation less likely/ruled out Blood Cx x1 grew alpha strep, ?contaminant Was treated with Vanc/Zosyn. 08/10- pt with increased oxygen requirement, chest xray with noted possible pneumonia (also fluid overload), procal newly elevated. Pulmonology consulted- pt switched to meropenem for antibiotic coverage. Repeat Blood Cultures pending. 08/11- pt transferred to the ICU overnight for worsening hypoxia and delirium. Currently febrile, on meropenem, BP in normal limits. Appreciate ICU recs. 08/12-On meropenem, bronch cx/washings pending 08/13- bronch Cx growing ryan 08/14- as dimitris, currently on cefepime 08/19 Abx finished Severe constipation Stercoral Colitis CT Abd/pelvis showing significant stool burden on admission On lactulose, received enemas Reportedly pt had many BMs General surgery consulted- appreciate recs -recommending to continue with bowel regimen, consider suppositories if pt unable to tolerate PO Currently resolved Cognitive Impairment Schizophrenia Acute Agitation/Delirium Required 24 hour support previously, relies on assistance of two care givers [employer] On clozapine, cymbalta, gabapentin at home, all held Pt pulling at lines and more agitated on 08/09 -will re-start home clozapine, per recs needs to titrated up slowly if held for more than 48hrs due to risk of bradycardia, hypotension -pt's home dose of clozapine 50mg qAM, 300mg qPM -clozapine restart on 08/10 at 12.5mg qAM, titrate dose up to home dosing -> now on hold, psych consulted -will hold off on restarting sedating/other meds above (gabapentin, cymbalta) Delirium precautions. MRI brain as per ICU, mri negative for any acute findings 08/11-pt currently on precedex 08/14- precedex discontinued on 08/13, psychiatry consulted. FULL CODE STATUS On Aug 10, 2023, advised by CM that there is a [employer] contact who might be able to weigh in on code discussion given pt has no known family with whom she is in contact to assist with her decisions during critical times. Listed contact in the chart is a Caregiver from an agency and does not want to be responsible for making those decisions for the pt. Mr. Weston Archibald [phone] was contacted about 4:45PM as advised by Case Management. He states that his only contact with the patient was visiting on behalf of the mandaeism. Would not describe himself as a friend. Notes that he was advised by someone in the medical field that this should likely go to the Ethics committee. States that he is concerned about what the law states in terms of being able to speak on her behalf. Does note in his conversations with the patient that she has always wanted to be well and "go home" (he makes the distinction not her heavenly home) so he would assume that she wants heroic measures done. States that he has been at [facility] in the past and has visited pts who have been here for months and states that he believes this is what June would want as well. Next steps currently pending. Appreciate CM assistance. 08/14- pt remains a full code in the ICU Hypothyroidism Levothyroxine resumed, continue Hypertension Held home antihypertensive while patient was on vasopressors BP currently trending back up In setting of restart of pt's clozapine which is needed and has major side effects noted above of hypotension and bradycardia, will resume home antihypertensives once pt has been titrated up to home dose of clozapine. currently on iv metoprolol HLD resume statin DMII Hold home metformin ICU hyperglycemia protocol Recurrent UTI Continue home methenamine when able to take po Recurrent migraines Continue home riboflavin Chronic normocytic anemia Hgb baseline ~10, stable Monitor CBC Diet: Clear liquids DVT prophylaxis: Heparin SQ Dispo: PT/OT ordered, pt has caregivers CODE STATUS: Pt's listed contact in chart was contacted on 08/09 to discuss code status. She states that she works with an agency and is pt's caregiver but is not equipped nor does she want the responsibility of making life/ decisions for pt. She states pt has no POA and is estranged from living family, a sister with whom she was in contact passed recently. CM aware. Admission and Anticipated Discharge Date Admission Date: August 06, 2023 Subjective Pt seen in follow up of hypoxic resp. failure, was initially intubated on admission and then required re-intubation during her hosp. stay Initially treated for severe constipation, poss. perf. - this was ruled out, pt seen by gen. surgery and having BMs Then managed in ICU for pulm. edema, poss. pna Pt extubated Patient currently does not follow commands, does not answer questions, not able to obtain ROS. Her eyes are open, she is sitting up in bed, she does not appear in any distress. She looks at me when I call her name. Will need nutrition, likely NGT as she does not open her mouth- does not follow commands very much when seen by speech therapist. Discussed w/ speech therapy and RN at the bedside. Met w/ pt's caregiver today as well and updated. Review of Systems Review of Systems: All systems reviewed & are unremarkable except as noted in Subjective Physical Exam Physical Exam: General: WD/WN F, Sitting up in bed, in NAD Psych: mood and affect could not be determined Neuro: awake, but not following commands, eyes are open, seems to be weaker on the left HEENT: NC/AT CV: RRR Resp: Basilar crackles, coarse breath sounds Abdomen: soft, seems nontender, + bowel sounds Extremities: edema in lower extremities b/l and upper extremities. Results & Data Results & Data Vital Signs (Past 12 Hours) Vital Signs Temp Pulse Pulse Resp BP BP Pulse Ox 08/19/23 08:24 80 08/19/23 08:09 79 176/75 H 08/19/23 08:00 73 08/19/23 07:05 37.4 C 79 16 176/75 H 94 08/19/23 04:36 72 158/86 H 08/19/23 02:53 36.8 C 80 20 168/86 H 96 08/19/23 00:16 72 160/77 H 08/19/23 00:00 78 08/18/23 23:26 72 160/77 H 08/18/23 22:41 36.7 C 74 18 148/80 H 97 08/18/23 21:42 O2 Del Method 08/19/23 08:24 08/19/23 08:09 08/19/23 08:00 08/19/23 07:05 Room Air 08/19/23 04:36 08/19/23 02:53 Room Air 08/19/23 00:16 08/19/23 00:00 08/18/23 23:26 08/18/23 22:41 Room Air 08/18/23 21:42 Room Air Laboratory Results 08/19/23 08/19/23 08/19/23 Range/Units 07:27 04:23 00:03 WBC 9.73 (4.8-10.8) K/ul RBC 3.50 L (4.20-5.40) M/uL Hgb 9.9 L (12.0-16.0) g/dl Hct 31.0 L (37.0-47.0) % MCV 88.6 (80.0-100.0) fL MCH 28.3 (25.0-34.0) pg MCHC 31.9 L (32.0-36.0) g/dL RDW Std Deviation 54.2 H (36.4-46.3) fL RDW Coeff of Cyn 17.1 H (11.5-14.5) % Plt Count 495 H (130-400) K/uL MPV 10.2 (9.4-12.4) fL Sodium 143 (136-145) mmol/L Potassium 3.2 L (3.5-5.1) mmol/L Chloride 109 H (98-107) mmol/L Carbon Dioxide 23 (21-32) mmol/L Anion Gap 11 (3-11) BUN 13 (6-23) mg/dl Creatinine 0.41 L (0.6-1.2) mg/dl Est Cr Clr Drug Dosing 104.6 ml/min Est GFR ( Amer) 118.8 ml/min Est GFR (Non-Af Amer) 102.5 ml/min BUN/Creatinine Ratio 31.7 H (10-20) Glucose 107 H (70-99(Fasting)) mg/dl POC Glucose 101 H 98 (70-99) mg/dl Calcium 8.2 L (8.6-10.3) mg/dl Phosphorus 3.0 (2.5-4.9) mg/dl Magnesium 1.9 (1.7-2.4) mg/dl 08/18/23 08/18/23 08/18/23 Range/Units 20:29 16:19 11:59 WBC (4.8-10.8) K/ul RBC (4.20-5.40) M/uL Hgb (12.0-16.0) g/dl Hct (37.0-47.0) % MCV (80.0-100.0) fL MCH (25.0-34.0) pg MCHC (32.0-36.0) g/dL RDW Std Deviation (36.4-46.3) fL RDW Coeff of Cyn (11.5-14.5) % Plt Count (130-400) K/uL MPV (9.4-12.4) fL Sodium (136-145) mmol/L Potassium (3.5-5.1) mmol/L Chloride (98-107) mmol/L Carbon Dioxide (21-32) mmol/L Anion Gap (3-11) BUN (6-23) mg/dl Creatinine (0.6-1.2) mg/dl Est Cr Clr Drug Dosing ml/min Est GFR ( Amer) ml/min Est GFR (Non-Af Amer) ml/min BUN/Creatinine Ratio (10-20) Glucose (70-99(Fasting)) mg/dl POC Glucose 105 H 120 H 122 H (70-99) mg/dl Calcium (8.6-10.3) mg/dl Phosphorus (2.5-4.9) mg/dl Magnesium (1.7-2.4) mg/dl Medications Administered Current Inpatient Medications Atorvastatin Calcium (Atorvastatin 20 Mg Tab) 20 mg PO HS JAMEL Stop: 09/09/23 20:59 Last Admin: 08/15/23 20:44 Dose: Not Given Clozapine (Clozapine 25 Mg Tab) 12.5 mg PO BID JAMEL; Protocol Stop: 09/12/23 11:44 Last Admin: 08/13/23 20:08 Dose: 12.5 mg Dextrose (Dextrose 50% 50 Ml Syringe) 25 - 50 ml IV UD PRN; Protocol PRN Reason: Hypoglycemia Protocol Stop: 09/05/23 21:53 Enoxaparin Sodium (Enoxaparin Inj 40 Mg/0.4 Ml Syr) 40 mg SQ Q24H JAMEL Stop: 09/11/23 13:59 Last Admin: 08/18/23 16:10 Dose: 40 mg Ergocalciferol (Ergocalciferol 1250 Mcg (50,000 Units) Cap) 1,250 mcg PO Mo JAMEL Stop: 09/12/23 08:59 Last Admin: 08/13/23 07:48 Dose: Not Given Fluticasone Propionate (Fluticasone Propionate Na Spr 16 Gm Btl) 2 sprays NA DAILY JAMEL Stop: 09/09/23 08:59 Last Admin: 08/19/23 08:05 Dose: 2 sprays Furosemide (Furosemide Inj 20 Mg/2 Ml Vial) 20 mg IV DAILY JAMEL Stop: 09/16/23 08:59 Last Admin: 08/18/23 08:23 Dose: 20 mg Glucagon (Glucagon For Inj 1 Mg Vial) 1 mg SQ UD PRN; Protocol PRN Reason: Hypoglycemia Protocol Stop: 09/05/23 21:53 Glucose (Glucose 40% Gel 15 Gm Tube) 15 - 30 gm PO UD PRN; Protocol PRN Reason: Hypoglycemia Protocol Stop: 09/05/23 21:53 Glucose (Glucose 10 Tab/Tube) 4 - 8 tab PO UD PRN; Protocol PRN Reason: Hypoglycemia Treatment Stop: 09/05/23 21:53 Glycerin (Glycerin Adult 12 Supp/Box Supp) 1 supp [place] DAILY PRN PRN Reason: Constipation Stop: 09/09/23 18:32 Thiamine HCl 100 mg/ Syringe 10 mls @ 2 mls/min IV DAILY JAMEL Stop: 09/11/23 08:59 Last Admin: 08/19/23 07:56 Dose: 2 mls/min Pantoprazole Sodium 40 mg/ (Syringe) 10 mls @ 5 mls/min IV DAILY JAMEL Stop: 09/11/23 09:59 Last Admin: 08/19/23 07:56 Dose: 5 mls/min Levothyroxine Sodium 37.5 mcg/ (Syringe) 1.875 mls @ 2 mls/min IV Q72H JAMEL Stop: 09/14/23 08:59 Last Admin: 08/18/23 10:27 Dose: 2 mls/min Dextrose/Sodium Chloride (D5w And Nss) 1,000 mls @ 75 mls/hr IV .[id number] JAMEL Stop: 09/16/23 21:14 Last Infusion: 08/18/23 12:26 Dose: Infused Potassium Chloride (K Bob / Wtr) 10 meq in 100 mls @ 100 mls/hr IV Q1H JAMEL Stop: 08/19/23 12:14 Insulin Aspart (Insulin Aspart Per Unit Charge) 0 units SC Q6 JAMEL Stop: 09/18/23 11:59 Lactulose (Lactulose Syrup 20 Gm/30 Ml Udc) 20 gm PO BID JAMEL Stop: 09/06/23 09:44 Last Admin: 08/16/23 09:45 Dose: Not Given Metoprolol Tartrate (Metoprolol Tartrate 1 Mg/Ml Vial) 5 mg IV Q6H JAMEL Stop: 09/15/23 10:29 Last Admin: 08/19/23 08:09 Dose: 5 mg Miscellaneous (Carbohydrates For Hypoglycemia ) 15 - 30 gm PO UD PRN PRN Reason: Hypoglycemia Protocol Stop: 09/05/23 21:53 Multivitamins/Minerals (Multi Vit W/Minerals Liquid 15 Ml Udc) 15 ml NG QAM JAMEL Stop: 09/13/23 08:59 Last Admin: 08/16/23 08:31 Dose: 15 ml Nystatin (Nystatin Susp 500,000 U/5 Ml Udc) 10 ml PO TID JAMEL Stop: 08/28/23 20:59 Last Admin: 08/19/23 08:05 Dose: 10 ml Polyethylene Glycol (Polyethylene (Miralax) 17 Gm Pack) 17 gm PO DAILY PRN PRN Reason: Constipation Stop: 09/09/23 05:17 (4) Aspiration pneumonia Laterality: bilateral
[2023-08-19] MEDS: POTASSIUM CHLORIDE / WTR 10 MEQ/100 ML PLCT IV SCH (09:47)
--- NOTE | 2023-08-19 12:02 | XRay Report ---
[facility] CLINICAL HISTORY: coresafe placement COMPARISON STUDY: CT of the abdomen and pelvis August 06, 2023. KUB August 07, 2023. FINDINGS: Tip of the feeding tube is within the body of the stomach. There is a large amount of stool within the rectum. There is a moderate amount of stool within the colon. Bowel gas pattern is normal . IMPRESSION: 1. Tip of feeding tube within the body of the stomach. 2. No evidence for a bowel obstruction. 3. Large amount of stool within the rectum. Moderate amount of stool within the colon. ACT 112: Negative or not required by law. Electronically signed by: Lukas Law M.D. 08/19/2023 12:01 PM
[2023-08-19] MEDS: INSULIN ASPART PER UNIT CHARGE SC SCH (12:32)
[2023-08-19] MEDS: TUBE FEEDING WATER FLUSH NG SCH (12:51)
[2023-08-19] MEDS: FLUCONAZOLE 100 MG/2.5 ML PO SCH (21:58)
[2023-08-19] MEDS: POLYETHYLENE (MIRALAX) 17 GM PACK PO PRN (21:59)
[2023-08-20 06:15] LABS: Hemoglobin 8.9 g/dl (12.0-16.0); Mean Corpuscular Hemoglobin 28.3 pg (25.0-34.0); Mean Corpuscular Hgb Conc 31.8 g/dL (32.0-36.0); Mean Corpuscular Volume 88.9 fL (80.0-100.0); Mean Platelet Volume 9.9 fL (9.4-12.4); Platelet Count 507 K/uL (130-400); RDW Coefficient of Variation 17.2 % (11.5-14.5); RDW Standard Deviation 54.5 fL (36.4-46.3); Red Blood Count 3.15 M/uL (4.20-5.40); White Blood Count 7.42 K/ul (4.8-10.8)
[2023-08-20 06:27] LABS: BUN Creatinine Ratio 34.8 (10-20); Calcium 8.4 mg/dl (8.6-10.3); Creatinine Clr Calc Pharmacy 86.1 ml/min; Est GFR (African American) 114.4 ml/min; Est GFR (Non-African American) 98.7 ml/min; Magnesium 1.9 mg/dl (1.7-2.4); Phosphorus 3.1 mg/dl (2.5-4.9); Potassium 3.4 mmol/L (3.5-5.1)
--- NOTE | 2023-08-20 07:19 | Hospitalist Progress Note ---
Date of Service August 20, 2023 Assessment & Plan (1) Stercoral colitis: (2) Constipation, chronic: (3) Full code status: (4) Aspiration pneumonia: (5) On mechanically assisted ventilation: (6) Acute respiratory failure: Plan Pt is a 72yoF with PMHx significant for HTN, HLD, DMII, hypothyroidism, Hx of brain tumor s/p partial resection, schizophrenia, prior migraine, chronic anemia, recurrent UTIs, urinary incontinence and urinary bladder diverticulum presented after being found down and minimally responsive at home. Patient was admitted to the ICU for management and evaluation of septic shock. Was downgraded and re-intubated in the ICU on 08/11. Acute respiratory failure requiring mechanical ventilation On admission, was secondary to severe sepsis above, requiring intubation Vent management per ICU, pt extubated on 08/08 On Aug 09- pt developed acute respiratory failure once more - Pt with increasing oxygen requirement. - Chest xray with bilateral opacities, pneumonia (?possible aspiration), procalcitonin elevated >34. -Was on hi emy oxygen, pt in restraints. -Pulmonology previously consulted- appreciate recs. -Diuresing with IV Lasix. -Transferred to ICU once more on 08/11 Transferred back to the ICU on 08/11 -was on bipap and re-intubated on 08/11 -bronch also done on 08/11 with cultures obtained and currently growing ryan. Noted mucoid impaction in RLL. -on propofol and fentanyl for sedation 08/15 extubated this AM, currently on bipap 08/16 off bipap, + secretions requires frequent suctioning 08/17- remains on RA, but requires frequent suctioning Septic shock-POA Pt was hypotensive on admission, requiring ICU admission Required pressor support which has since been discontinued. UA repeatedly without signs of infection, urine Cx with NGTD Chest XR with no signs of infection, biofire negative CT abd/pelvis with suggestion of stercoral colitis, bowel perforation less likely/ruled out Blood Cx x1 grew alpha strep, ?contaminant Was treated with Vanc/Zosyn. 08/10- pt with increased oxygen requirement, chest xray with noted possible pneumonia (also fluid overload), procal newly elevated. Pulmonology consulted- pt switched to meropenem for antibiotic coverage. Repeat Blood Cultures pending. 08/11- pt transferred to the ICU overnight for worsening hypoxia and delirium. Currently febrile, on meropenem, BP in normal limits. Appreciate ICU recs. 08/12-On meropenem, bronch cx/washings pending 08/13- bronch Cx growing ryan 08/14- as dimitris, currently on cefepime 08/19 Abx finished Severe constipation Stercoral Colitis CT Abd/pelvis showing significant stool burden on admission On lactulose, received enemas Reportedly pt had many BMs General surgery consulted- appreciate recs -recommending to continue with bowel regimen, consider suppositories if pt unable to tolerate PO Currently resolved Not taking PO, not opening mouth NGT tube placed for nutritional needs (08/19) and started on feeds Cognitive Impairment Schizophrenia Acute Agitation/Delirium Required 24 hour support previously, relies on assistance of two care givers ORIENTOR On clozapine, cymbalta, gabapentin at home, all held Pt pulling at lines and more agitated on 08/09 -will re-start home clozapine, per recs needs to titrated up slowly if held for more than 48hrs due to risk of bradycardia, hypotension -pt's home dose of clozapine 50mg qAM, 300mg qPM -clozapine restart on 08/10 at 12.5mg qAM, titrate dose up to home dosing -> now on hold, psych consulted -will hold off on restarting sedating/other meds above (gabapentin, cymbalta) Delirium precautions. Head CT as per ICU,negative for any acute findings 08/11-pt currently on precedex 08/14- precedex discontinued on 08/13, psychiatry consulted. Neurology also consulted - last time seen by Dr. Cordova on 08/16 - EEG August 07 showed generalized slowing from encephalopathy but no epileptiform activity. The patient also has a history of schizophrenia and is on Clozaril Recommendations: 1. Now that she is extubated, increase activity as able, include physical, occupational, and speech therapy. 2. If the patient does not have a history of chronic left-sided weakness, consider MRI of the brain with and without contrast when more clinically stable. FULL CODE STATUS On Aug 10, 2023, advised by CM that there is a anglican contact who might be able to weigh in on code discussion given pt has no known family with whom she is in contact to assist with her decisions during critical times. Listed contact in the chart is a Caregiver from an agency and does not want to be responsible for making those decisions for the pt. Mr. Weston Archibald [phone] was contacted about 4:45PM as advised by Case Management. He states that his only contact with the patient was visiting on behalf of the anglican. Would not describe himself as a friend. Notes that he was advised by someone in the medical field that this should likely go to the Ethics committee. States that he is concerned about what the law states in terms of being able to speak on her behalf. Does note in his conversations with the patient that she has always wanted to be well and "go home" (he makes the distinction not her heavenly home) so he would assume that she wants heroic measures done. States that he has been at [facility] in the past and has visited pts who have been here for months and states that he believes this is what June would want as well. Next steps currently pending. Appreciate CM assistance. 08/14- pt remains a full code in the ICU Currently pt is in PCU, on RA and started on tube feeds (08/19). GOC discussions to be continued. Hypothyroidism Levothyroxine resumed, continue Hypertension Held home antihypertensive while patient was on vasopressors BP currently trending back up In setting of restart of pt's clozapine which is needed and has major side effects noted above of hypotension and bradycardia, will resume home antihypertensives once pt has been titrated up to home dose of clozapine.- clozapine on hold per ICU - will discuss further w/ psychiatry when/if to resume currently on iv metoprolol resume home lisinopril HLD resume statin DMII Hold home metformin ICU hyperglycemia protocol Recurrent UTI Continue home methenamine when able to take po Recurrent migraines Continue home riboflavin Chronic normocytic anemia Hgb baseline ~10, stable Monitor CBC Diet: Clear liquids DVT prophylaxis: Heparin SQ Dispo: PT/OT ordered, pt has caregivers CODE STATUS: Pt's listed contact in chart was contacted on 08/09 to discuss code status. She states that she works with an agency and is pt's caregiver but is not equipped nor does she want the responsibility of making life/ decisions for pt. She states pt has no POA and is estranged from living family, a sister with whom she was in contact passed recently. CM aware. Admission and Anticipated Discharge Date Admission Date: August 06, 2023 Subjective Pt seen in follow up of hypoxic resp. failure, was initially intubated on admission and then required re-intubation during her hosp. stay Initially treated for severe constipation, poss. perf. - this was ruled out, pt seen by gen. surgery and having BMs Then managed in ICU for pulm. edema, poss. pna Pt extubated Patient currently does not follow commands, does not answer questions, not able to obtain ROS. Her eyes are open, she is sitting up in bed, she does not appear in any distress. She looks at me when I call her name. NGT tube placed yesterday (08/19/23) to provide nutrition. as she does not open her mouth- does not follow commands very much when seen by speech therapist. Discussed w/ speech therapy and RN at the bedside. Met w/ pt's caregiver yesterday as well and updated. Review of Systems Review of Systems: All systems reviewed & are unremarkable except as noted in Subjective Physical Exam Physical Exam: General: WD/WN F, Sitting up in bed, in NAD Psych: mood and affect could not be determined Neuro: awake, but not following commands, eyes are open, seems to be weaker on the left HEENT: NC/AT CV: RRR Resp: Basilar crackles, coarse breath sounds Abdomen: soft, seems nontender, + bowel sounds Extremities: edema in lower extremities b/l and upper extremities. Results & Data Results & Data Vital Signs (Past 12 Hours) Vital Signs Temp Pulse Pulse Resp BP BP Pulse Ox 08/20/23 04:19 77 172/71 H 08/20/23 03:18 37.1 C 86 16 162/71 H 97 08/20/23 00:00 88 08/19/23 23:12 36.8 C 73 16 166/77 H 96 08/19/23 22:26 08/19/23 22:17 36.5 C 78 16 170/83 H 97 08/19/23 22:16 78 170/83 H 08/19/23 21:57 87 171/90 H O2 Del Method 08/20/23 04:19 08/20/23 03:18 Room Air 08/20/23 00:00 08/19/23 23:12 Room Air 08/19/23 22:26 Room Air 08/19/23 22:17 Room Air 08/19/23 22:16 08/19/23 21:57 Laboratory Results 08/20/23 08/20/23 08/19/23 Range/Units 05:48 05:26 23:59 WBC 7.42 (4.8-10.8) K/ul RBC 3.15 L (4.20-5.40) M/uL Hgb 8.9 L (12.0-16.0) g/dl Hct 28.0 L (37.0-47.0) % MCV 88.9 (80.0-100.0) fL MCH 28.3 (25.0-34.0) pg MCHC 31.8 L (32.0-36.0) g/dL RDW Std Deviation 54.5 H (36.4-46.3) fL RDW Coeff of Cyn 17.2 H (11.5-14.5) % Plt Count 507 H (130-400) K/uL MPV 9.9 (9.4-12.4) fL Sodium 144 (136-145) mmol/L Potassium 3.4 L (3.5-5.1) mmol/L Chloride 111 H (98-107) mmol/L Carbon Dioxide 24 (21-32) mmol/L Anion Gap 9 (3-11) BUN 16 (6-23) mg/dl Creatinine 0.46 L (0.6-1.2) mg/dl Est Cr Clr Drug Dosing 86.1 ml/min Est GFR ( Amer) 114.4 ml/min Est GFR (Non-Af Amer) 98.7 ml/min BUN/Creatinine Ratio 34.8 H (10-20) Glucose 127 H (70-99(Fasting)) mg/dl POC Glucose 133 H 115 H (70-99) mg/dl Calcium 8.4 L (8.6-10.3) mg/dl Phosphorus 3.1 (2.5-4.9) mg/dl Magnesium 1.9 (1.7-2.4) mg/dl 08/19/23 08/19/23 08/19/23 Range/Units 18:15 12:19 07:27 WBC 9.73 (4.8-10.8) K/ul RBC 3.50 L (4.20-5.40) M/uL Hgb 9.9 L (12.0-16.0) g/dl Hct 31.0 L (37.0-47.0) % MCV 88.6 (80.0-100.0) fL MCH 28.3 (25.0-34.0) pg MCHC 31.9 L (32.0-36.0) g/dL RDW Std Deviation 54.2 H (36.4-46.3) fL RDW Coeff of Cyn 17.1 H (11.5-14.5) % Plt Count 495 H (130-400) K/uL MPV 10.2 (9.4-12.4) fL Sodium 143 (136-145) mmol/L Potassium 3.2 L (3.5-5.1) mmol/L Chloride 109 H (98-107) mmol/L Carbon Dioxide 23 (21-32) mmol/L Anion Gap 11 (3-11) BUN 13 (6-23) mg/dl Creatinine 0.41 L (0.6-1.2) mg/dl Est Cr Clr Drug Dosing 104.6 ml/min Est GFR ( Amer) 118.8 ml/min Est GFR (Non-Af Amer) 102.5 ml/min BUN/Creatinine Ratio 31.7 H (10-20) Glucose 107 H (70-99(Fasting)) mg/dl POC Glucose 125 H 102 H (70-99) mg/dl Calcium 8.2 L (8.6-10.3) mg/dl Phosphorus 3.0 (2.5-4.9) mg/dl Magnesium 1.9 (1.7-2.4) mg/dl Medications Administered Current Inpatient Medications Atorvastatin Calcium (Atorvastatin 20 Mg Tab) 20 mg PO HS JAMEL Stop: 09/09/23 20:59 Last Admin: 08/15/23 20:44 Dose: Not Given Clozapine (Clozapine 25 Mg Tab) 12.5 mg PO BID JAMEL; Protocol Stop: 09/12/23 11:44 Last Admin: 08/13/23 20:08 Dose: 12.5 mg Dextrose (Dextrose 50% 50 Ml Syringe) 25 - 50 ml IV UD PRN; Protocol PRN Reason: Hypoglycemia Protocol Stop: 09/05/23 21:53 Enoxaparin Sodium (Enoxaparin Inj 40 Mg/0.4 Ml Syr) 40 mg SQ Q24H JAMEL Stop: 09/11/23 13:59 Last Admin: 08/19/23 15:42 Dose: 40 mg Enteral Nutritional Formula (Fibersource Hn 1.2 German 1000 Ml Bag) 1,000 ml NG .See Protocol JAMEL; Protocol Stop: 09/18/23 11:29 Ergocalciferol (Ergocalciferol 1250 Mcg (50,000 Units) Cap) 1,250 mcg PO Mo JAMEL Stop: 09/12/23 08:59 Last Admin: 08/13/23 07:48 Dose: Not Given Fluconazole (Fluconazole Susp 100 Mg/2.5 Ml Udp) 100 mg PO BID JAMEL Stop: 08/29/23 20:59 Last Admin: 08/19/23 21:58 Dose: 100 mg Fluticasone Propionate (Fluticasone Propionate Na Spr 16 Gm Btl) 2 sprays NA DAILY JAMEL Stop: 09/09/23 08:59 Last Admin: 08/19/23 08:05 Dose: 2 sprays Furosemide (Furosemide Inj 20 Mg/2 Ml Vial) 20 mg IV DAILY JAMEL Stop: 09/16/23 08:59 Last Admin: 08/18/23 08:23 Dose: 20 mg Glucagon (Glucagon For Inj 1 Mg Vial) 1 mg SQ UD PRN; Protocol PRN Reason: Hypoglycemia Protocol Stop: 09/05/23 21:53 Glucose (Glucose 40% Gel 15 Gm Tube) 15 - 30 gm PO UD PRN; Protocol PRN Reason: Hypoglycemia Protocol Stop: 09/05/23 21:53 Glucose (Glucose 10 Tab/Tube) 4 - 8 tab PO UD PRN; Protocol PRN Reason: Hypoglycemia Treatment Stop: 09/05/23 21:53 Glycerin (Glycerin Adult 12 Supp/Box Supp) 1 supp [place] DAILY PRN PRN Reason: Constipation Stop: 09/09/23 18:32 Thiamine HCl 100 mg/ Syringe 10 mls @ 2 mls/min IV DAILY JAMEL Stop: 09/11/23 08:59 Last Admin: 08/19/23 07:56 Dose: 2 mls/min Pantoprazole Sodium 40 mg/ (Syringe) 10 mls @ 5 mls/min IV DAILY JAMEL Stop: 09/11/23 09:59 Last Admin: 08/19/23 07:56 Dose: 5 mls/min Levothyroxine Sodium 37.5 mcg/ (Syringe) 1.875 mls @ 2 mls/min IV Q72H [facility] Stop: 09/14/23 08:59 Last Admin: 08/18/23 10:27 Dose: 2 mls/min Dextrose/Sodium Chloride (D5w And Nss) 1,000 mls @ 75 mls/hr IV .[id number] [facility] Stop: 09/16/23 21:14 Last Infusion: 08/18/23 12:26 Dose: Infused Potassium Chloride (K Bob / Wtr) 10 meq in 100 mls @ 100 mls/hr IV Q1H [facility] Stop: 08/20/23 09:29 Insulin Aspart (Insulin Aspart Per Unit Charge) 0 units SC Q6 JAMEL Stop: 09/18/23 11:59 Last Admin: 08/20/23 06:08 Dose: 2 units Lactulose (Lactulose Syrup 20 Gm/30 Ml Udc) 20 gm PO BID [facility] Stop: 09/06/23 09:44 Last Admin: 08/16/23 09:45 Dose: Not Given Metoprolol Tartrate (Metoprolol Tartrate 1 Mg/Ml Vial) 5 mg IV Q6H [facility] Stop: 09/15/23 10:29 Last Admin: 08/20/23 03:54 Dose: 5 mg Miscellaneous (Carbohydrates For Hypoglycemia ) 15 - 30 gm PO UD PRN PRN Reason: Hypoglycemia Protocol Stop: 09/05/23 21:53 Multivitamins/Minerals (Multi Vit W/Minerals Liquid 15 Ml Udc) 15 ml NG QAM [facility] Stop: 09/13/23 08:59 Last Admin: 08/16/23 08:31 Dose: 15 ml Nystatin (Nystatin Susp 500,000 U/5 Ml Udc) 10 ml PO TID JAMEL Stop: 08/28/23 20:59 Last Admin: 08/19/23 21:58 Dose: 10 ml Polyethylene Glycol (Polyethylene (Miralax) 17 Gm Pack) 17 gm PO DAILY PRN PRN Reason: Constipation Stop: 09/09/23 05:17 Last Admin: 08/19/23 21:59 Dose: 17 gm Sterile Water (Tube Feeding Water Flush) 30 ml NG Q4H [facility] Stop: 09/18/23 11:29 Last Admin: 08/20/23 03:54 Dose: 30 ml (4) Aspiration pneumonia Laterality: bilateral
[2023-08-20] MEDS: POTASSIUM CHLORIDE / WTR 10 MEQ/100 ML PLCT IV SCH (08:12)
[2023-08-20] MEDS: lisinopril 20 MG TAB PO SCH (16:31)
[2023-08-20] MEDS: LORazepam 0.25 MG in SYRINGE 0.125 ML IV STA (20:38)
[2023-08-21] MEDS: FIBERSOURCE HN 1.2 CAL 1000 ML BAG NG SCH (01:38)
[2023-08-21 07:28] LABS: Hemoglobin 8.7 g/dl (12.0-16.0); Mean Corpuscular Hemoglobin 28.9 pg (25.0-34.0); Mean Corpuscular Hgb Conc 32.2 g/dL (32.0-36.0); Mean Corpuscular Volume 89.7 fL (80.0-100.0); Mean Platelet Volume 9.9 fL (9.4-12.4); Platelet Count 432 K/uL (130-400); RDW Coefficient of Variation 17.4 % (11.5-14.5); RDW Standard Deviation 56.6 fL (36.4-46.3); Red Blood Count 3.01 M/uL (4.20-5.40); White Blood Count 6.52 K/ul (4.8-10.8)
[2023-08-21 07:43] LABS: BUN Creatinine Ratio 37.5 (10-20); Calcium 8.1 mg/dl (8.6-10.3); Creatinine Clr Calc Pharmacy 99.1 ml/min; Est GFR (African American) 119.8 ml/min; Est GFR (Non-African American) 103.3 ml/min; Magnesium 1.8 mg/dl (1.7-2.4); Phosphorus 2.9 mg/dl (2.5-4.9); Potassium 3.2 mmol/L (3.5-5.1)
--- NOTE | 2023-08-21 08:00 | Hospitalist Progress Note ---
Date of Service August 21, 2023 Assessment & Plan (1) Stercoral colitis: (2) Constipation, chronic: (3) Full code status: (4) Aspiration pneumonia: (5) On mechanically assisted ventilation: (6) Acute respiratory failure: Plan Pt is a 72yoF with PMHx significant for HTN, HLD, DMII, hypothyroidism, Hx of brain tumor s/p partial resection, schizophrenia, prior migraine, chronic anemia, recurrent UTIs, urinary incontinence and urinary bladder diverticulum presented after being found down and minimally responsive at home. Patient was admitted to the ICU for management and evaluation of septic shock. Was downgraded and re-intubated in the ICU on 08/11. Acute respiratory failure requiring mechanical ventilation On admission, was secondary to severe sepsis above, requiring intubation Vent management per ICU, pt extubated on 08/08 On Aug 09- pt developed acute respiratory failure once more - Pt with increasing oxygen requirement. - Chest xray with bilateral opacities, pneumonia (?possible aspiration), procalcitonin elevated >34. -Was on hi emy oxygen, pt in restraints. -Pulmonology previously consulted- appreciate recs. -Diuresing with IV Lasix. -Transferred to ICU once more on 08/11 Transferred back to the ICU on 08/11 -was on bipap and re-intubated on 08/11 -bronch also done on 08/11 with cultures obtained and currently growing ryan. Noted mucoid impaction in RLL. -on propofol and fentanyl for sedation 08/15 extubated this AM, currently on bipap 08/16 off bipap, + secretions requires frequent suctioning 08/17- remains on RA, but requires frequent suctioning Septic shock-POA Pt was hypotensive on admission, requiring ICU admission Required pressor support which has since been discontinued. UA repeatedly without signs of infection, urine Cx with NGTD Chest XR with no signs of infection, biofire negative CT abd/pelvis with suggestion of stercoral colitis, bowel perforation less likely/ruled out Blood Cx x1 grew alpha strep, ?contaminant Was treated with Vanc/Zosyn. 08/10- pt with increased oxygen requirement, chest xray with noted possible pneumonia (also fluid overload), procal newly elevated. Pulmonology consulted- pt switched to meropenem for antibiotic coverage. Repeat Blood Cultures pending. 08/11- pt transferred to the ICU overnight for worsening hypoxia and delirium. Currently febrile, on meropenem, BP in normal limits. Appreciate ICU recs. 08/12-On meropenem, bronch cx/washings pending 08/13- bronch Cx growing ryan 08/14- as dimitris, currently on cefepime 08/19 Abx finished Severe constipation Stercoral Colitis CT Abd/pelvis showing significant stool burden on admission On lactulose, received enemas Reportedly pt had many BMs General surgery consulted- appreciate recs -recommending to continue with bowel regimen, consider suppositories if pt unable to tolerate PO Currently resolved, cont. to closely monitor Not taking PO, not opening mouth NGT tube placed for nutritional needs (08/19) and started on feeds Oral ryan/ ? poss. ryan esophagitis Patient does not follow commands and does not open her mouth when asked. However she yawned several times, and there is a visible white plaque on her tongue. Nystatin ordered however difficult for nurses to actually apply nystatin as patient does not follow commands, does not open her mouth when asked. Started fluconazole. Cont. to monitor. Cognitive Impairment Schizophrenia Acute Agitation/Delirium Required 24 hour support previously, relies on assistance of two care givers [employer] On clozapine, cymbalta, gabapentin at home, all held Pt pulling at lines and more agitated on 08/09 -will re-start home clozapine, per recs needs to titrated up slowly if held for more than 48hrs due to risk of bradycardia, hypotension -pt's home dose of clozapine 50mg qAM, 300mg qPM -clozapine restart on 08/10 at 12.5mg qAM, titrate dose up to home dosing -> now on hold, psych consulted -will hold off on restarting sedating/other meds above (gabapentin, cymbalta) Delirium precautions. Head CT as per ICU,negative for any acute findings 08/11-pt currently on precedex 08/14- precedex discontinued on 08/13, psychiatry consulted. 08/21 - per psychiatry - do not recommend resuming clorazil at this time Neurology also consulted - last time seen by Dr. Cordova on 08/16 - EEG August 07 showed generalized slowing from encephalopathy but no epileptiform activity. The patient also has a history of schizophrenia and is on Clozaril Recommendations: 1. Now that she is extubated, increase activity as able, include physical, occupational, and speech therapy. 2. If the patient does not have a history of chronic left-sided weakness, consider MRI of the brain with and without contrast when more clinically stable. FULL CODE STATUS On Aug 10, 2023, advised by CM that there is a confucianism contact who might be able to weigh in on code discussion given pt has no known family with whom she is in contact to assist with her decisions during critical times. Listed contact in the chart is a Caregiver from an agency and does not want to be responsible for making those decisions for the pt. Mr. Weston Archibald [phone] was contacted about 4:45PM as advised by Case Management. He states that his only contact with the patient was visiting on behalf of the confucianism. Would not describe himself as a friend. Notes that he was advised by someone in the medical field that this should likely go to the Ethics committee. States that he is concerned about what the law states in terms of being able to speak on her behalf. Does note in his conversations with the patient that she has always wanted to be well and "go home" (he makes the d istinction not her heavenly home) so he would assume that she wants heroic measures done. States that he has been at [facility] in the past and has visited pts who have been here for months and states that he believes this is what June would want as well. Next steps currently pending. Appreciate CM assistance. 08/14- pt remains a full code in the ICU Currently pt is in PCU, on RA and started on tube feeds (08/19). GOC discussions to be continued. Hypothyroidism Levothyroxine resumed, continue Hypertension Held home antihypertensive while patient was on vasopressors BP currently trending back up In setting of restart of pt's clozapine which is needed and has major side effects noted above of hypotension and bradycardia, will resume home antihypertensives once pt has been titrated up to home dose of clozapine.- clozapine on hold per ICU - will discuss further w/ psychiatry when/if to resume discussed w/ psych on - recommends to hold clozapine for now currently on iv metoprolol resumed home lisinopril HLD resume statin DMII Hold home metformin Recurrent UTI Continue home methenamine when able to take po Recurrent migraines Continue home riboflavin Chronic normocytic anemia Hgb baseline ~10, stable Monitor CBC Diet: started on tube feeds DVT prophylaxis: Heparin SQ Dispo: PT/OT ordered, pt has caregivers CODE STATUS: Pt's listed contact in chart was contacted on 08/09 to discuss code status. She states that she works with an agency and is pt's caregiver but is not equipped nor does she want the responsibility of making life/ decisions for pt. She states pt has no POA and is estranged from living family, a sister with whom she was in contact passed recently. CM aware. Admission and Anticipated Discharge Date Admission Date: August 06, 2023 Subjective Pt seen in follow up of hypoxic resp. failure, was initially intubated on admission and then required re-intubation during her hosp. stay Initially treated for severe constipation, poss. perf. - this was ruled out, pt seen by gen. surgery and having BMs Then managed in ICU for pulm. edema, poss. pna Pt extubated Patient currently does not follow commands, does not answer questions, not able to obtain ROS. Her eyes are open, she is sitting up in bed, she does not appear in any distress. She looks at me when I call her name. NGT tube placed on (08/19/23) to provide nutrition. as she does not open her mouth- does not follow commands very much when seen by speech therapist. Discussed w/ speech therapy and RN at the bedside. Met w/ pt's caregiver on 08/19 as well and updated. Review of Systems Review of Systems: All systems reviewed & are unremarkable except as noted in Subjective Physical Exam Physical Exam: General: WD/WN F, Sitting up in bed, in NAD Psych: mood and affect could not be determined Neuro: awake, but not following commands, eyes are open, seems to be weaker on the left HEENT: NC/AT CV: RRR Resp: Basilar crackles, no wheezing Abdomen: soft, seems nontender, + bowel sounds Extremities: edema in lower extremities b/l and upper extremities much improved now. Results & Data Results & Data Vital Signs (Past 12 Hours) Vital Signs Temp Pulse Pulse Resp BP BP Pulse Ox 08/21/23 07:51 37.5 C 80 18 158/77 H 98 08/21/23 04:35 80 164/75 H 08/21/23 03:06 37.1 C 80 18 160/70 H 98 08/21/23 00:00 70 08/21/23 00:00 73 157/70 H 08/20/23 21:11 O2 Del Method 08/21/23 07:51 Room Air 08/21/23 04:35 08/21/23 03:06 Room Air 08/21/23 00:00 08/21/23 00:00 08/20/23 21:11 Nasal Cannula Laboratory Results 08/21/23 08/21/23 08/20/23 Range/Units 07:07 05:30 23:33 WBC 6.52 (4.8-10.8) K/ul RBC 3.01 L (4.20-5.40) M/uL Hgb 8.7 L (12.0-16.0) g/dl Hct 27.0 L (37.0-47.0) % MCV 89.7 (80.0-100.0) fL MCH 28.9 (25.0-34.0) pg MCHC 32.2 (32.0-36.0) g/dL RDW Std Deviation 56.6 H (36.4-46.3) fL RDW Coeff of Cyn 17.4 H (11.5-14.5) % Plt Count 432 H (130-400) K/uL MPV 9.9 (9.4-12.4) fL Sodium 145 (136-145) mmol/L Potassium 3.2 L (3.5-5.1) mmol/L Chloride 113 H (98-107) mmol/L Carbon Dioxide 26 (21-32) mmol/L Anion Gap 6 (3-11) BUN 15 (6-23) mg/dl Creatinine 0.40 L (0.6-1.2) mg/dl Est Cr Clr Drug Dosing 99.1 ml/min Est GFR ( Amer) 119.8 ml/min Est GFR (Non-Af Amer) 103.3 ml/min BUN/Creatinine Ratio 37.5 H (10-20) Glucose 140 H (70-99(Fasting)) mg/dl POC Glucose 144 H 159 H (70-99) mg/dl Calcium 8.1 L (8.6-10.3) mg/dl Phosphorus 2.9 (2.5-4.9) mg/dl Magnesium 1.8 (1.7-2.4) mg/dl 08/20/23 Range/Units 17:45 WBC (4.8-10.8) K/ul RBC (4.20-5.40) M/uL Hgb (12.0-16.0) g/dl Hct (37.0-47.0) % MCV (80.0-100.0) fL MCH (25.0-34.0) pg MCHC (32.0-36.0) g/dL RDW Std Deviation (36.4-46.3) fL RDW Coeff of Cyn (11.5-14.5) % Plt Count (130-400) K/uL MPV (9.4-12.4) fL Sodium (136-145) mmol/L Potassium (3.5-5.1) mmol/L Chloride (98-107) mmol/L Carbon Dioxide (21-32) mmol/L Anion Gap (3-11) BUN (6-23) mg/dl Creatinine (0.6-1.2) mg/dl Est Cr Clr Drug Dosing ml/min Est GFR ( Amer) ml/min Est GFR (Non-Af Amer) ml/min BUN/Creatinine Ratio (10-20) Glucose (70-99(Fasting)) mg/dl POC Glucose 172 H (70-99) mg/dl Calcium (8.6-10.3) mg/dl Phosphorus (2.5-4.9) mg/dl Magnesium (1.7-2.4) mg/dl Medications Administered Current Inpatient Medications Atorvastatin Calcium (Atorvastatin 20 Mg Tab) 20 mg PO HS JAMEL Stop: 09/09/23 20:59 Last Admin: 08/15/23 20:44 Dose: Not Given Clozapine (Clozapine 25 Mg Tab) 12.5 mg PO BID JAMEL; Protocol Stop: 09/12/23 11:44 Last Admin: 08/13/23 20:08 Dose: 12.5 mg Dextrose (Dextrose 50% 50 Ml Syringe) 25 - 50 ml IV UD PRN; Protocol PRN Reason: Hypoglycemia Protocol Stop: 09/05/23 21:53 Enoxaparin Sodium (Enoxaparin Inj 40 Mg/0.4 Ml Syr) 40 mg SQ Q24H JAMEL Stop: 09/11/23 13:59 Last Admin: 08/20/23 14:42 Dose: 40 mg Enteral Nutritional Formula (Fibersource Hn 1.2 German 1000 Ml Bag) 1,000 ml NG .See Protocol JAMEL; Protocol Stop: 09/18/23 11:29 Last Admin: 08/21/23 01:38 Dose: 1,000 ml Ergocalciferol (Ergocalciferol 1250 Mcg (50,000 Units) Cap) 1,250 mcg PO Mo JAMEL Stop: 09/12/23 08:59 Last Admin: 08/13/23 07:48 Dose: Not Given Fluconazole (Fluconazole Susp 100 Mg/2.5 Ml Udp) 100 mg PO QAM JAMEL Stop: 08/31/23 08:59 Fluticasone Propionate (Fluticasone Propionate Na Spr 16 Gm Btl) 2 sprays NA DAILY JAMEL Stop: 09/09/23 08:59 Last Admin: 08/20/23 08:16 Dose: 2 sprays Furosemide (Furosemide Inj 20 Mg/2 Ml Vial) 20 mg IV DAILY JAMEL Stop: 09/16/23 08:59 Last Admin: 08/18/23 08:23 Dose: 20 mg Glucagon (Glucagon For Inj 1 Mg Vial) 1 mg SQ UD PRN; Protocol PRN Reason: Hypoglycemia Protocol Stop: 09/05/23 21:53 Glucose (Glucose 40% Gel 15 Gm Tube) 15 - 30 gm PO UD PRN; Protocol PRN Reason: Hypoglycemia Protocol Stop: 09/05/23 21:53 Glucose (Glucose 10 Tab/Tube) 4 - 8 tab PO UD PRN; Protocol PRN Reason: Hypoglycemia Treatment Stop: 09/05/23 21:53 Glycerin (Glycerin Adult 12 Supp/Box Supp) 1 supp HI DAILY PRN PRN Reason: Constipation Stop: 09/09/23 18:32 Thiamine HCl 100 mg/ Syringe 10 mls @ 2 mls/min IV DAILY JAMEL Stop: 09/11/23 08:59 Last Admin: 08/20/23 08:17 Dose: 2 mls/min Pantoprazole Sodium 40 mg/ (Syringe) 10 mls @ 5 mls/min IV DAILY JAMEL Stop: 09/11/23 09:59 Last Admin: 08/20/23 08:16 Dose: 5 mls/min Levothyroxine Sodium 37.5 mcg/ (Syringe) 1.875 mls @ 2 mls/min IV Q72H [facility] Stop: 09/14/23 08:59 Last Admin: 08/18/23 10:27 Dose: 2 mls/min Dextrose/Sodium Chloride (D5w And Nss) 1,000 mls @ 75 mls/hr IV .[id number] JAMEL Stop: 09/16/23 21:14 Last Infusion: 08/18/23 12:26 Dose: Infused Insulin Aspart (Insulin Aspart Per Unit Charge) 0 units SC Q6 JAMEL Stop: 09/18/23 11:59 Last Admin: 08/21/23 05:42 Dose: 6 units Lactulose (Lactulose Syrup 20 Gm/30 Ml Udc) 20 gm PO BID JAMEL Stop: 09/06/23 09:44 Last Admin: 08/16/23 09:45 Dose: Not Given Lisinopril (Lisinopril 20 Mg Tab) 20 mg PO QAM JAMEL Stop: 09/19/23 15:59 Last Admin: 08/20/23 16:31 Dose: 20 mg Metoprolol Tartrate (Metoprolol Tartrate 1 Mg/Ml Vial) 5 mg IV Q6H JAMEL Stop: 09/15/23 10:29 Last Admin: 08/21/23 04:15 Dose: 5 mg Miscellaneous (Carbohydrates For Hypoglycemia ) 15 - 30 gm PO UD PRN PRN Reason: Hypoglycemia Protocol Stop: 09/05/23 21:53 Multivitamins/Minerals (Multi Vit W/Minerals Liquid 15 Ml Udc) 15 ml NG QAM JAMEL Stop: 09/13/23 08:59 Last Admin: 08/16/23 08:31 Dose: 15 ml Nystatin (Nystatin Susp 500,000 U/5 Ml Udc) 10 ml PO TID JAMEL Stop: 08/28/23 20:59 Last Admin: 08/20/23 20:38 Dose: 10 ml Polyethylene Glycol (Polyethylene (Miralax) 17 Gm Pack) 17 gm PO DAILY PRN PRN Reason: Constipation Stop: 09/09/23 05:17 Last Admin: 08/20/23 13:51 Dose: 17 gm Potassium Chloride (Potassium Chloride 20 Meq/15 Ml Udc) 40 meq NG NOW STA Stop: 08/21/23 07:56 Sterile Water (Tube Feeding Water Flush) 30 ml NG Q4H JAMEL Stop: 09/18/23 11:29 Last Admin: 08/21/23 07:42 Dose: 30 ml (4) Aspiration pneumonia Laterality: bilateral
[2023-08-21] MEDS: POTASSIUM CHLORIDE 20 MEQ/15 ML UDC NG STA (09:00)
[2023-08-21] MEDS: FLUCONAZOLE 100 MG/2.5 ML PO SCH (09:02)
--- NOTE | 2023-08-21 13:26 | Psychiatric Progress Note ---
Date of Service August 21, 2023 Impression / Recommendations Impression 72 yo female with remote hx of schizophrenia maintained on same dose of clozaril for what appears to be 20+ years. Unclear last psychotic symptoms and complicated by onset of dementia with intermittent AMS. Review of chart reveals gradual increase in falls, dizziness, and severe constipation. Unclear how much due to medical illness vs. possible clozaril toxicity given no change in dose with age, etc. Unclear if siallorhea at baseline and if that could contribute to aspiration risk. Given risks of orthostasis, alter seizure thresshold, paralytic ileus, PE, etc in patients on clozaril I feel the risks outweigh the immediate benefits of retitrating while still intubated. now she is presenting with ongoing AMS/nonverbal. No posturing or repetitive mannerisms that make me think she is catatonic. Appears calm and/or apathetic rather than paranoid. Overall, I spent a total of 35 with this case, including review of chart, review of records, coordination with nursing,coordination of care with hospitalist service, and documentation. (1) Schizophrenia: (2) Acute respiratory failure: (3) Aspiration pneumonia: (4) Constipation, chronic: (5) Encephalopathy acute: Plan contacted Dr. Cagle who feels she is more alert/slightly more interactive and plans to continue to monitor but also rescan to evaluate for other signs of stroke. no overt psychosis or agitation that would necessitate restart of clozaril at this point in her recovery Interval History Identifying Information 72 yo female with a hx of schizophrenia, consult by hospitalist service for recs re: clozaril dosing. At the time of the initial consult she was intubated in the ICU. Chief Complaint nonverbal Subjective Subjective Patient was seen & assessed and interval progress reviewed. Is receiving NG feeds, turns gaze to my voice but otherwise does not attempt to talk. Neuro consult reviewed. Is still requiring more suchtion that baseline. Has required soft mits for attempting to remove or pick at equipment but otherwise no aggression and cooperative with responsitioning, etc. Physical Exam Psychiatric limited, mute, turns to gave to voice, appears calm, won't nod yes/no Vital Signs (Past 24 Hours) Last Vital Signs Temp 37 C 08/21/23 11:08 Pulse 72 08/21/23 11:35 Resp 17 08/21/23 11:08 BP 149/76 H 08/21/23 11:20 Pulse Ox 98 08/21/23 11:08 O2 Del Method Room Air 08/21/23 11:30 O2 Flow Rate 35 08/13/23 20:00 FiO2 21 08/17/23 04:17 Results & Data ([facility]) Laboratory Results Laboratory Results - last 24 hr 08/20/23 08/20/23 08/21/23 17:45 23:33 05:30 WBC RBC Hgb Hct MCV MCH MCHC RDW Std Deviation RDW Coeff of Cyn Plt Count MPV Sodium Potassium Chloride Carbon Dioxide Anion Gap BUN Creatinine Est Cr Clr Drug Dosing Est GFR ( Amer) Est GFR (Non-Af Amer) BUN/Creatinine Ratio Glucose POC Glucose 172 H 159 H 144 H Calcium Phosphorus Magnesium 08/21/23 08/21/23 07:07 11:25 WBC 6.52 RBC 3.01 L Hgb 8.7 L Hct 27.0 L MCV 89.7 MCH 28.9 MCHC 32.2 RDW Std Deviation 56.6 H RDW Coeff of Cyn 17.4 H Plt Count 432 H MPV 9.9 Sodium 145 Potassium 3.2 L Chloride 113 H Carbon Dioxide 26 Anion Gap 6 BUN 15 Creatinine 0.40 L Est Cr Clr Drug Dosing 99.1 Est GFR ( Amer) 119.8 Est GFR (Non-Af Amer) 103.3 BUN/Creatinine Ratio 37.5 H Glucose 140 H POC Glucose 180 H Calcium 8.1 L Phosphorus 2.9 Magnesium 1.8 Current Inpatient Medications Current Inpatient Medications: Current Inpatient Medications Atorvastatin Calcium (Atorvastatin 20 Mg Tab) 20 mg PO HS JAMEL Stop: 09/09/23 20:59 Last Admin: 08/15/23 20:44 Dose: Not Given Clozapine (Clozapine 25 Mg Tab) 12.5 mg PO BID JAMEL; Protocol Stop: 09/12/23 11:44 Last Admin: 08/13/23 20:08 Dose: 12.5 mg Dextrose (Dextrose 50% 50 Ml Syringe) 25 - 50 ml IV UD PRN; Protocol PRN Reason: Hypoglycemia Protocol Stop: 09/05/23 21:53 Enoxaparin Sodium (Enoxaparin Inj 40 Mg/0.4 Ml Syr) 40 mg SQ Q24H JAMEL Stop: 09/11/23 13:59 Last Admin: 08/20/23 14:42 Dose: 40 mg Enteral Nutritional Formula (Fibersource Hn 1.2 German 1000 Ml Bag) 1,000 ml NG .See Protocol JAMEL; Protocol Stop: 09/18/23 11:29 Last Admin: 08/21/23 01:38 Dose: 1,000 ml Ergocalciferol (Ergocalciferol 1250 Mcg (50,000 Units) Cap) 1,250 mcg PO Mo JAMEL Stop: 09/12/23 08:59 Last Admin: 08/13/23 07:48 Dose: Not Given Fluconazole (Fluconazole Susp 100 Mg/2.5 Ml Udp) 100 mg PO QAM JAMEL Stop: 08/31/23 08:59 Last Admin: 08/21/23 09:02 Dose: 100 mg Fluticasone Propionate (Fluticasone Propionate Na Spr 16 Gm Btl) 2 sprays NA DAILY JAMEL Stop: 09/09/23 08:59 Last Admin: 08/21/23 09:04 Dose: 2 sprays Furosemide (Furosemide Inj 20 Mg/2 Ml Vial) 20 mg IV DAILY JAMEL Stop: 09/16/23 08:59 Last Admin: 08/18/23 08:23 Dose: 20 mg Glucagon (Glucagon For Inj 1 Mg Vial) 1 mg SQ UD PRN; Protocol PRN Reason: Hypoglycemia Protocol Stop: 09/05/23 21:53 Glucose (Glucose 40% Gel 15 Gm Tube) 15 - 30 gm PO UD PRN; Protocol PRN Reason: Hypoglycemia Protocol Stop: 09/05/23 21:53 Glucose (Glucose 10 Tab/Tube) 4 - 8 tab PO UD PRN; Protocol PRN Reason: Hypoglycemia Treatment Stop: 09/05/23 21:53 Glycerin (Glycerin Adult 12 Supp/Box Supp) 1 supp NV DAILY PRN PRN Reason: Constipation Stop: 09/09/23 18:32 Thiamine HCl 100 mg/ Syringe 10 mls @ 2 mls/min IV DAILY JAMEL Stop: 09/11/23 08:59 Last Admin: 08/21/23 09:05 Dose: 2 mls/min Pantoprazole Sodium 40 mg/ (Syringe) 10 mls @ 5 mls/min IV DAILY JAMEL Stop: 09/11/23 09:59 Last Admin: 08/21/23 09:05 Dose: 5 mls/min Levothyroxine Sodium 37.5 mcg/ (Syringe) 1.875 mls @ 2 mls/min IV Q72H [facility] Stop: 09/14/23 08:59 Last Admin: 08/21/23 09:02 Dose: 2 mls/min Dextrose/Sodium Chloride (D5w And Nss) 1,000 mls @ 75 mls/hr IV .[id number] [facility] Stop: 09/16/23 21:14 Last Infusion: 08/18/23 12:26 Dose: Infused Insulin Aspart (Insulin Aspart Per Unit Charge) 0 units SC Q6 JAMEL Stop: 09/18/23 11:59 Last Admin: 08/21/23 11:43 Dose: 2 units Lactulose (Lactulose Syrup 20 Gm/30 Ml Udc) 20 gm PO BID [facility] Stop: 09/06/23 09:44 Last Admin: 08/16/23 09:45 Dose: Not Given Lisinopril (Lisinopril 20 Mg Tab) 20 mg PO QAM [facility] Stop: 09/19/23 15:59 Last Admin: 08/21/23 09:02 Dose: 20 mg Metoprolol Tartrate (Metoprolol Tartrate 1 Mg/Ml Vial) 5 mg IV Q6H [facility] Stop: 09/15/23 10:29 Last Admin: 08/21/23 11:20 Dose: 5 mg Miscellaneous (Carbohydrates For Hypoglycemia ) 15 - 30 gm PO UD PRN PRN Reason: Hypoglycemia Protocol Stop: 09/05/23 21:53 Multivitamins/Minerals (Multi Vit W/Minerals Liquid 15 Ml Udc) 15 ml NG QAM [facility] Stop: 09/13/23 08:59 Last Admin: 08/16/23 08:31 Dose: 15 ml Nystatin (Nystatin Susp 500,000 U/5 Ml Udc) 10 ml PO TID [facility] Stop: 08/28/23 20:59 Last Admin: 08/21/23 09:04 Dose: 10 ml Polyethylene Glycol (Polyethylene (Miralax) 17 Gm Pack) 17 gm PO DAILY PRN PRN Reason: Constipation Stop: 09/09/23 05:17 Last Admin: 08/21/23 09:01 Dose: 17 gm Sterile Water (Tube Feeding Water Flush) 30 ml NG Q4H [facility] Stop: 09/18/23 11:29 Last Admin: 08/21/23 11:18 Dose: 30 ml (3) Aspiration pneumonia Laterality: bilateral
[2023-08-22 06:30] LABS: Hematocrit (blood only) 28.8 % (37.0-47.0); Mean Corpuscular Hemoglobin 28.1 pg (25.0-34.0); Mean Corpuscular Hgb Conc 31.3 g/dL (32.0-36.0); Platelet Count 435 K/uL (130-400); RDW Coefficient of Variation 17.6 % (11.5-14.5); White Blood Count 5.92 K/ul (4.8-10.8)
[2023-08-22 06:51] LABS: BUN Creatinine Ratio 43.6 (10-20); Calcium 8.4 mg/dl (8.6-10.3); Creatinine Clr Calc Pharmacy 111.1 ml/min; Est GFR (African American) 120.8 ml/min; Est GFR (Non-African American) 104.2 ml/min; Magnesium 1.9 mg/dl (1.7-2.4); Phosphorus 3.4 mg/dl (2.5-4.9); Potassium 3.6 mmol/L (3.5-5.1)
--- NOTE | 2023-08-22 13:30 | Hospitalist Progress Note ---
Date of Service August 22, 2023 Assessment & Plan (1) Stercoral colitis: (2) Constipation, chronic: (3) Full code status: (4) Aspiration pneumonia: (5) On mechanically assisted ventilation: (6) Acute respiratory failure: Plan Pt is a 72yoF with PMHx significant for HTN, HLD, DMII, hypothyroidism, Hx of brain tumor s/p partial resection, schizophrenia, prior migraine, chronic anemia, recurrent UTIs, urinary incontinence and urinary bladder diverticulum presented after being found down and minimally responsive at home. Patient was admitted to the ICU for management and evaluation of septic shock. Was downgraded and re-intubated in the ICU on 08/11. Acute respiratory failure requiring mechanical ventilation On admission, was secondary to severe sepsis above, requiring intubation Vent management per ICU, pt extubated on 08/08 On Aug 09- pt developed acute respiratory failure once more - Pt with increasing oxygen requirement. - Chest xray with bilateral opacities, pneumonia (?possible aspiration), procalcitonin elevated >34. -Was on hi emy oxygen, pt in restraints. -Pulmonology previously consulted- appreciate recs. -Diuresing with IV Lasix. -Transferred to ICU once more on 08/11 Transferred back to the ICU on 08/11 -was on bipap and re-intubated on 08/11 -bronch also done on 08/11 with cultures obtained and currently growing ryan. Noted mucoid impaction in RLL. -was on propofol and fentanyl for sedation -extubated once more on 08/15, currently on RA Septic shock-POA Pt was hypotensive on admission, requiring ICU admission Required pressor support which has since been discontinued. UA repeatedly without signs of infection, urine Cx with NGTD Chest XR with no signs of infection, biofire negative CT abd/pelvis with suggestion of stercoral colitis, bowel perforation less likely/ruled out Blood Cx x1 grew alpha strep, ?contaminant Was treated with Vanc/Zosyn. 08/10- pt with increased oxygen requirement, chest xray with noted possible pneumonia (also fluid overload), procal newly elevated. Pulmonology consulted- pt switched to meropenem for antibiotic coverage. Repeat Blood Cultures with NGTD. Pt completed abx treatment while hospitalized. Severe constipation Stercoral Colitis CT Abd/pelvis showing significant stool burden on admission On lactulose, received enemas Reportedly pt had many BMs General surgery consulted- appreciate recs -recommending to continue with bowel regimen, consider suppositories if pt unable to tolerate PO Currently resolved, cont. to closely monitor Continue with prn laxative use to ensure continued BM Not taking PO, not opening mouth NGT tube placed for nutritional needs (08/19) and started on feeds Consider PEG tube placement Oral ryan/ ? poss. ryan esophagitis Patient does not follow commands and does not open her mouth when asked. However she yawned several times, and there is a visible white plaque on her tongue. Nystatin ordered however difficult for nurses to actually apply nystatin as patient does not follow commands, does not open her mouth when asked. Started fluconazole. Cont. to monitor. Cognitive Impairment Schizophrenia Acute Agitation/Delirium Required 24 hour support previously, relies on assistance of two care givers [employer] On clozapine, cymbalta, gabapentin at home, all held Pt pulling at lines and more agitated on 08/09 -will re-start home clozapine, per recs needs to titrated up slowly if held for more than 48hrs due to risk of bradycardia, hypotension -pt's home dose of clozapine 50mg qAM, 300mg qPM -clozapine restart on 08/10 at 12.5mg qAM, titrate dose up to home dosing -> now on hold, psych consulted -will hold off on restarting sedating/other meds above (gabapentin, cymbalta) Delirium precautions. Head CT as per ICU,negative for any acute findings Pt was treated with precedex in the ICU and that was dc on 08/13. Psychiatry subsequently consulted-do not recommend resuming clorazil at this time Neurology also consulted - last time seen by Dr. Cordova on 08/16 - EEG August 07 showed generalized slowing from encephalopathy but no epileptiform activity. The patient also has a history of schizophrenia and is on Clozaril Recommendations: 1. Now that she is extubated, increase activity as able, include physical, occupational, and speech therapy. 2. If the patient does not have a history of chronic left-sided weakness, consider MRI of the brain with and without contrast when more clinically stable. FULL CODE STATUS On Aug 10, 2023, advised by CM that there is a nondenominational contact who might be able to weigh in on code discussion given pt has no known family with whom she is in contact to assist with her decisions during critical times. Listed contact in the chart is a Caregiver from an agency and does not want to be responsible for making those decisions for the pt. Mr. Weston Archibald [phone] was contacted about 4:45PM as advised by Case Management. He states that his only contact with the patient was visiting on behalf of the nondenominational. Would not describe himself as a friend. Notes that he was advised by someone in the medical field that this should likely go to the Ethics committee. States that he is concerned about what the law states in terms of being able to speak on her behalf. Does note in his conversations with the patient that she has always wanted to be well and "go home" (he makes the distinction not her heavenly home) so he would assume that she wants heroic measures done. States that he has been at [facility] in the past and has visited pts who have been here for months and states that he believes this is what June would want as well. Next steps currently pending. Appreciate CM assistance. GOC discussions to be continued, still full code. Hypothyroidism Levothyroxine resumed, continue Hypertension Held home antihypertensive while patient was on vasopressors BP currently trending back up Was on iv metoprolol, home po metoprolol resumed Home lisinopril was previously resumed Home amlodpine resumed as well. HLD resume statin DMII Hold home metformin Recurrent UTI Continue home methenamine when able to take po Recurrent migraines Continue home riboflavin Chronic normocytic anemia Hgb baseline ~10, stable Monitor CBC Diet: currently on tube feeds DVT prophylaxis: Heparin SQ Dispo: PT/OT ordered, pt has caregivers CODE STATUS: Pt's listed contact in chart was contacted on 08/09 to discuss code status. She states that she works with an agency and is pt's caregiver but is not equipped nor does she want the responsibility of making life/ decisions for pt. She states pt has no POA and is estranged from living family, a sister with whom she was in contact passed recently. CM aware. Admission and Anticipated Discharge Date Admission Date: August 06, 2023 Subjective Pt was seen sitting up in bed. Alert, eyes open but does not respond verbally. Review of Systems Review of Systems: All systems reviewed & are unremarkable except as noted in Subjective Physical Exam Physical Exam: General: sitting up in bed Psych: mood and affect could not be determined Neuro: alert HEENT: NC/AT, feeding tube in nares CV: RRR Resp:no increased effort of breathing Abdomen: soft Extremities:waffle boots lower extremities bilaterally. Results & Data Results & Data Vital Signs (Past 12 Hours) Vital Signs Temp Pulse Pulse Resp BP BP Pulse Ox 08/22/23 10:44 162/79 H 08/22/23 10:29 78 178/70 H 08/22/23 09:03 08/22/23 08:00 73 08/22/23 07:14 38.1 C H 69 20 162/80 H 97 08/22/23 04:53 73 171/100 H 08/22/23 02:29 37.5 C 68 18 160/77 H 97 O2 Del Method 08/22/23 10:44 08/22/23 10:29 08/22/23 09:03 Room Air 08/22/23 08:00 08/22/23 07:14 Room Air 08/22/23 04:53 08/22/23 02:29 Room Air (4) Aspiration pneumonia Laterality: bilateral
[2023-08-23 07:25] LABS: Hematocrit (blood only) 29.7 % (37.0-47.0); Hemoglobin 9.3 g/dl (12.0-16.0); Mean Corpuscular Hemoglobin 28.2 pg (25.0-34.0); Mean Corpuscular Hgb Conc 31.3 g/dL (32.0-36.0); Mean Platelet Volume 10.2 fL (9.4-12.4); Platelet Count 404 K/uL (130-400); RDW Coefficient of Variation 17.5 % (11.5-14.5); RDW Standard Deviation 56.7 fL (36.4-46.3); White Blood Count 5.92 K/ul (4.8-10.8)
[2023-08-23 07:45] LABS: Albumin Globulin Ratio 1.3 (0.9-2); BUN Creatinine Ratio 48.6 (10-20); Bilirubin,Total 0.4 mg/dl (0.2-1.0); Calcium 8.4 mg/dl (8.6-10.3); Creatinine Clr Calc Pharmacy 107.1 ml/min; Est GFR (African American) 122.9 ml/min; Globulin 2.3 gm/dl (2.5-4.0); Magnesium 1.9 mg/dl (1.7-2.4); Phosphorus 3.4 mg/dl (2.5-4.9); Potassium 3.4 mmol/L (3.5-5.1); Total Protein 5.3 gm/dl (6.0-8.3)
[2023-08-23] MEDS: amLODIPine BESYLATE 5 MG TAB PO SCH (08:05)
[2023-08-23] MEDS: METOPROLOL SUCC 50MG EXT REL TAB PO SCH (08:06)
--- NOTE | 2023-08-23 09:11 | Psychiatric Progress Note ---
Date of Service August 23, 2023 Impression / Recommendations Impression as per initial consult: 72 yo female with remote hx of schizophrenia maintained on same dose of clozaril for what appears to be 20+ years. Unclear last psychotic symptoms and complicated by onset of dementia with intermittent AMS. Review of chart reveals gradual increase in falls, dizziness, and severe constipation. Unclear how much due to medical illness vs. possible clozaril toxicity given no change in dose with age, etc. Unclear if siallorhea at baseline and if that could contribute to aspiration risk. Given risks of orthostasis, alter seizure thresshold, paralytic ileus, PE, etc in patients on clozaril I feel the risks outweigh the immediate benefits of retitrating while still intubated. now she is presenting with ongoing nonverbal---differential includes aphasia due to neurologic event, atypical catatonia, and/or severe abulia due to negative symptom of schizophrenia. Overall, I spent a total of 35 with this case, including review of chart, coordination with nursing,coordination of care with hospitalist service, and documentation. (1) Schizophrenia: (2) Acute respiratory failure: (3) Aspiration pneumonia: (4) Constipation, chronic: (5) Encephalopathy acute: Plan await hospitalist input on timing of head imaging vs. Ativan challenge (1 mg) with additional consideration for restart lower dose of clozaril. Interval History Identifying Information 72 yo female with a hx of schizophrenia, consult by hospitalist service for recs re: clozaril dosing. At the time of the initial consult she was intubated in the ICU. Chief Complaint nonverbal Subjective Subjective Patient was seen & assessed and interval progress reviewed with nursing and Dr. Khan. The patient is cooperative with care and appears calm. She will not follow commands or initiate conversation/attempt to speak. Physical Exam Psychiatric alert, acknowledges presences, less facital twitch due to annoyance from her NG today, doesn't seem paranoid on approach Vital Signs (Past 24 Hours) Last Vital Signs Temp 36.5 C 08/23/23 08:26 Pulse 80 08/23/23 08:26 Resp 18 08/23/23 08:26 BP 149/71 H 08/23/23 08:26 Pulse Ox 97 08/23/23 08:26 O2 Del Method Room Air 08/23/23 08:26 O2 Flow Rate 35 08/13/23 20:00 FiO2 21 08/17/23 04:17 Results & Data ([facility]) Laboratory Results Laboratory Results - last 24 hr 08/22/23 08/22/23 08/22/23 11:54 18:08 23:21 WBC RBC Hgb Hct MCV MCH MCHC RDW Std Deviation RDW Coeff of Cyn Plt Count MPV Sodium Potassium Chloride Carbon Dioxide Anion Gap BUN Creatinine Est Cr Clr Drug Dosing Est GFR ( Amer) Est GFR (Non-Af Amer) BUN/Creatinine Ratio Glucose POC Glucose 147 H 162 H 181 H Calcium Phosphorus Magnesium Total Bilirubin AST ALT Alkaline Phosphatase Total Protein Albumin Globulin Albumin/Globulin Ratio 08/23/23 08/23/23 08/23/23 06:08 06:52 07:54 WBC 5.92 RBC 3.30 L Hgb 9.3 L Hct 29.7 L MCV 90.0 MCH 28.2 MCHC 31.3 L RDW Std Deviation 56.7 H RDW Coeff of Cyn 17.5 H Plt Count 404 H MPV 10.2 Sodium 146 H Potassium 3.4 L Chloride 112 H Carbon Dioxide 28 Anion Gap 6 BUN 18 Creatinine 0.37 L Est Cr Clr Drug Dosing 107.1 Est GFR ( Amer) 122.9 Est GFR (Non-Af Amer) 106.0 BUN/Creatinine Ratio 48.6 H Glucose 148 H POC Glucose 169 H 104 H Calcium 8.4 L Phosphorus 3.4 Magnesium 1.9 Total Bilirubin 0.4 AST 17 ALT 11 Alkaline Phosphatase 67 Total Protein 5.3 L Albumin 3.0 L Globulin 2.3 L Albumin/Globulin Ratio 1.3 Current Inpatient Medications Current Inpatient Medications: Current Inpatient Medications Amlodipine Besylate (Amlodipine Besylate 5 Mg Tab) 5 mg PO DAILY JAMEL Stop: 09/22/23 08:59 Last Admin: 08/23/23 08:05 Dose: 5 mg Atorvastatin Calcium (Atorvastatin 20 Mg Tab) 20 mg PO HS JAMEL Stop: 09/09/23 20:59 Last Admin: 08/15/23 20:44 Dose: Not Given Clozapine (Clozapine 25 Mg Tab) 12.5 mg PO BID JAMEL; Protocol Stop: 09/12/23 11:44 Last Admin: 08/13/23 20:08 Dose: 12.5 mg Dextrose (Dextrose 50% 50 Ml Syringe) 25 - 50 ml IV UD PRN; Protocol PRN Reason: Hypoglycemia Protocol Stop: 09/05/23 21:53 Enoxaparin Sodium (Enoxaparin Inj 40 Mg/0.4 Ml Syr) 40 mg SQ Q24H JAMEL Stop: 09/11/23 13:59 Last Admin: 08/22/23 13:20 Dose: 40 mg Enteral Nutritional Formula (Fibersource Hn 1.2 German 1000 Ml Bag) 1,000 ml NG .See Protocol JAMEL; Protocol Stop: 09/18/23 11:29 Last Admin: 08/22/23 21:51 Dose: 1,000 ml Ergocalciferol (Ergocalciferol 1250 Mcg (50,000 Units) Cap) 1,250 mcg PO Mo JAMEL Stop: 09/12/23 08:59 Last Admin: 08/13/23 07:48 Dose: Not Given Fluconazole (Fluconazole Susp 100 Mg/2.5 Ml Udp) 100 mg PO QAM JAMEL Stop: 08/31/23 08:59 Last Admin: 08/23/23 08:06 Dose: 100 mg Fluticasone Propionate (Fluticasone Propionate Na Spr 16 Gm Btl) 2 sprays NA DAILY JAMEL Stop: 09/09/23 08:59 Last Admin: 08/23/23 08:06 Dose: 2 sprays Furosemide (Furosemide Inj 20 Mg/2 Ml Vial) 20 mg IV DAILY [facility] Stop: 09/16/23 08:59 Last Admin: 08/18/23 08:23 Dose: 20 mg Glucagon (Glucagon For Inj 1 Mg Vial) 1 mg SQ UD PRN; Protocol PRN Reason: Hypoglycemia Protocol Stop: 09/05/23 21:53 Glucose (Glucose 40% Gel 15 Gm Tube) 15 - 30 gm PO UD PRN; Protocol PRN Reason: Hypoglycemia Protocol Stop: 09/05/23 21:53 Glucose (Glucose 10 Tab/Tube) 4 - 8 tab PO UD PRN; Protocol PRN Reason: Hypoglycemia Treatment Stop: 09/05/23 21:53 Glycerin (Glycerin Adult 12 Supp/Box Supp) 1 supp TX DAILY PRN PRN Reason: Constipation Stop: 09/09/23 18:32 Thiamine HCl 100 mg/ Syringe 10 mls @ 2 mls/min IV DAILY JAMEL Stop: 09/11/23 08:59 Last Admin: 08/23/23 08:07 Dose: 2 mls/min Pantoprazole Sodium 40 mg/ (Syringe) 10 mls @ 5 mls/min IV DAILY [facility] Stop: 09/11/23 09:59 Last Admin: 08/23/23 08:07 Dose: 5 mls/min Levothyroxine Sodium 37.5 mcg/ (Syringe) 1.875 mls @ 2 mls/min IV Q72H [facility] Stop: 09/14/23 08:59 Last Admin: 08/21/23 09:02 Dose: 2 mls/min Dextrose/Sodium Chloride (D5w And Nss) 1,000 mls @ 75 mls/hr IV .[id number] [facility] Stop: 09/16/23 21:14 Last Infusion: 08/18/23 12:26 Dose: Infused Insulin Aspart (Insulin Aspart Per Unit Charge) 0 units SC Q6 [facility] Stop: 09/18/23 11:59 Last Admin: 08/23/23 06:18 Dose: 4 units Lactulose (Lactulose Syrup 20 Gm/30 Ml Udc) 20 gm PO BID [facility] Stop: 09/06/23 09:44 Last Admin: 08/16/23 09:45 Dose: Not Given Lisinopril (Lisinopril 20 Mg Tab) 20 mg PO QAM [facility] Stop: 09/19/23 15:59 Last Admin: 08/23/23 08:07 Dose: 20 mg Metoprolol Succinate (Metoprolol Succ 50mg Ext Rel Tab) 50 mg PO QAM [facility] Stop: 09/22/23 08:59 Last Admin: 08/23/23 08:06 Dose: 50 mg Miscellaneous (Carbohydrates For Hypoglycemia ) 15 - 30 gm PO UD PRN PRN Reason: Hypoglycemia Protocol Stop: 09/05/23 21:53 Multivitamins/Minerals (Multi Vit W/Minerals Liquid 15 Ml Udc) 15 ml NG QAM [facility] Stop: 09/13/23 08:59 Last Admin: 08/16/23 08:31 Dose: 15 ml Nystatin (Nystatin Susp 500,000 U/5 Ml Udc) 10 ml PO TID [facility] Stop: 08/28/23 20:59 Last Admin: 08/23/23 08:06 Dose: 10 ml Polyethylene Glycol (Polyethylene (Miralax) 17 Gm Pack) 17 gm PO DAILY PRN PRN Reason: Constipation Stop: 09/09/23 05:17 Last Admin: 08/21/23 09:01 Dose: 17 gm Sterile Water (Tube Feeding Water Flush) 30 ml NG Q4H JAMEL Stop: 09/18/23 11:29 Last Admin: 08/23/23 08:07 Dose: 30 ml (3) Aspiration pneumonia Laterality: bilateral
[2023-08-23] MEDS: POTASSIUM CHLORIDE 20 MEQ/15 ML UDC PO STA (09:16)
[2023-08-23] MEDS: LORazepam 1 MG TAB PO STA (11:15)
--- NOTE | 2023-08-23 11:51 | Hospitalist Progress Note ---
Date of Service August 23, 2023 Assessment & Plan (1) Stercoral colitis: (2) Constipation, chronic: (3) Full code status: (4) Aspiration pneumonia: (5) On mechanically assisted ventilation: (6) Acute respiratory failure: Plan Pt is a 72yoF with PMHx significant for HTN, HLD, DMII, hypothyroidism, Hx of brain tumor s/p partial resection, schizophrenia, prior migraine, chronic anemia, recurrent UTIs, urinary incontinence and urinary bladder diverticulum presented after being found down and minimally responsive at home. Patient was admitted to the ICU for management and evaluation of septic shock. Was downgraded and re-intubated in the ICU on 08/11. Acute respiratory failure requiring mechanical ventilation On admission, was secondary to severe sepsis above, requiring intubation Vent management per ICU, pt extubated on 08/08 On Aug 09- pt developed acute respiratory failure once more - Pt with increasing oxygen requirement. - Chest xray with bilateral opacities, pneumonia (?possible aspiration), procalcitonin elevated >34. -Was on hi emy oxygen, pt in restraints. -Pulmonology previously consulted- appreciate recs. -Diuresing with IV Lasix. -Transferred to ICU once more on 08/11 Transferred back to the ICU on 08/11 -was on bipap and re-intubated on 08/11 -bronch also done on 08/11 with cultures obtained and currently growing ryan. Noted mucoid impaction in RLL. -was on propofol and fentanyl for sedation -extubated once more on 08/15, currently on RA Cognitive Impairment Schizophrenia Acute Agitation/Delirium Required 24 hour support previously, relies on assistance of two care givers [employer] On clozapine, cymbalta, gabapentin at home, all held Pt pulling at lines and more agitated on 08/09 -will re-start home clozapine, per recs needs to titrated up slowly if held for more than 48hrs due to risk of bradycardia, hypotension -pt's home dose of clozapine 50mg qAM, 300mg qPM -clozapine restart on 08/10 at 12.5mg qAM, titrate dose up to home dosing -> now on hold, psych consulted -will hold off on restarting sedating/other meds above (gabapentin, cymbalta) Delirium precautions. Head CT as per ICU,negative for any acute findings Pt was treated with precedex in the ICU and that was dc on 08/13. Psychiatry subsequently consulted -do not recommend resuming clorazil at this time -trial of Ativan 1mg on 08/23 Neurology also consulted - last time seen by Dr. Cordova on 08/16 - EEG August 07 showed generalized slowing from encephalopathy but no epileptiform activity. -The patient also has a history of schizophrenia and is on Clozaril -Recommendations: 1. Now that she is extubated, increase activity as able, include physical, occupational, and speech therapy. 2. If the patient does not have a history of chronic left-sided weakness, consider MRI of the brain with and without contrast when more clinically stable. Anorexia Pt reportedly was not taking PO, not opening mouth NGT tube placed for nutritional needs (08/19) and started on feeds Has been receiving some meds orally, consider trial of po food intake Consider PEG tube placement once more stable otherwise Severe constipation Stercoral Colitis CT Abd/pelvis showing significant stool burden on admission On lactulose, received enemas Reportedly pt had many BMs General surgery consulted- appreciate recs -recommending to continue with bowel regimen, consider suppositories if pt unable to tolerate PO Currently resolved, cont. to closely monitor Bowel regimen resumed, on a scheduled basis with daily stool softener and lactulose BID dosing. Continue to monitor BM Septic shock-POA Pt was hypotensive on admission, requiring ICU admission Required pressor support which has since been discontinued. UA repeatedly without signs of infection, urine Cx with NGTD Chest XR with no signs of infection, biofire negative CT abd/pelvis with suggestion of stercoral colitis, bowel perforation less likely/ruled out Blood Cx x1 grew alpha strep, ?contaminant Was treated with Vanc/Zosyn. 08/10- pt with increased oxygen requirement, chest xray with noted possible pneumonia (also fluid overload), procal newly elevated. Pulmonology consulted- pt switched to meropenem for antibiotic coverage. Repeat Blood Cultures with NGTD. Pt completed abx treatment while hospitalized. Currently resolved. Oral ryan/ ? poss. ryan esophagitis Patient does not follow commands and does not open her mouth when asked. However she yawned several times, and there is a visible white plaque on her tongue. Nystatin ordered however difficult for nurses to actually apply nystatin as patient does not follow commands, does not open her mouth when asked. Started fluconazole. Cont. to monitor. FULL CODE STATUS On Aug 10, 2023, advised by CM that there is a temple contact who might be able to weigh in on code discussion given pt has no known family with whom she is in contact to assist with her decisions during critical times. Listed contact in the chart is a Caregiver from an agency and does not want to be responsible for making those decisions for the pt. Mr. Weston Archibald [phone] was contacted about 4:45PM as advised by Case Management. He states that his only contact with the patient was visiting on behalf of the temple. Would not describe himself as a friend. Notes that he was advised by someone in the medical field that this should likely go to the Ethics committee. States that he is concerned about what the law states in terms of being able to speak on her behalf. Does note in his conversations with the patient that she has always wanted to be well and "go home" (he makes the distinction not her heavenly home) so he would assume that she wants heroic measures done. States that he has been at [facility] in the past and has visited pts who have been here for months and states that he believes this is what June would want as well. Next steps currently pending. Appreciate CM assistance. GO discussions to be continued, still full code. Hypothyroidism Levothyroxine resumed, continue Hypertension Held home antihypertensive while patient was on vasopressors BP currently trending back up Was on iv metoprolol, home po metoprolol resumed Home lisinopril was previously resumed Home amlodipine resumed as well. HLD resume statin DMII Hold home metformin Recurrent UTI Continue home methenamine when able to take po Recurrent migraines Continue home riboflavin Chronic normocytic anemia Hgb baseline ~10, stable Monitor CBC Diet: currently on tube feeds DVT prophylaxis: Heparin SQ Dispo: PT/OT ordered, pt has caregivers CODE STATUS: Pt's listed contact in chart was contacted on 08/09 to discuss code status. She states that she works with an agency and is pt's caregiver but is not equipped nor does she want the responsibility of making life/ decisions for pt. She states pt has no POA and is estranged from living family, a sister with whom she was in contact passed recently. CM aware. Admission and Anticipated Discharge Date Admission Date: August 06, 2023 Subjective Pt was seen sitting up in bed. Alert, eyes open but does not respond verbally. Review of Systems Review of Systems: All systems reviewed & are unremarkable except as noted in Subjective Physical Exam Physical Exam: General: sitting up in bed Psych: mood and affect could not be determined Neuro: alert HEENT: NC/AT, feeding tube in nares CV: RRR Resp:no increased effort of breathing Abdomen: soft Extremities:waffle boots lower extremities bilaterally. Results & Data Results & Data Vital Signs (Past 12 Hours) Vital Signs Temp Pulse Pulse Resp BP Pulse Ox O2 Del Method 08/23/23 10:50 36.6 C 81 16 149/82 H 95 Room Air 08/23/23 09:23 Room Air 08/23/23 08:26 36.5 C 80 18 149/71 H 97 Room Air 08/23/23 08:00 73 08/23/23 02:57 36.3 C L 74 16 152/75 H 98 Room Air (4) Aspiration pneumonia Laterality: bilateral
[2023-08-23] MEDS: DOCUSATE SODIUM/SENNA 50/8.6MG TAB PO SCH (14:53)
--- NOTE | 2023-08-23 15:12 | Communication Note ---
Date of Service: August 23, 2023 after discussion with hospitalist, patient received Ativan 1 mg challenge with no response. As she is taking PO meds and there has been improvement in s ecretions and possible negative symptoms with poor sleep will start clozaril this hs 12.5 mg only and monitor for sialorrhea.
[2023-08-23] MEDS: cloZAPine 25 MG TAB PO SCH (20:54)
[2023-08-24 07:48] LABS: Hematocrit (blood only) 29.9 % (37.0-47.0); Hemoglobin 9.6 g/dl (12.0-16.0); Mean Corpuscular Hemoglobin 28.7 pg (25.0-34.0); Mean Corpuscular Hgb Conc 32.1 g/dL (32.0-36.0); Mean Corpuscular Volume 89.3 fL (80.0-100.0); Mean Platelet Volume 10.4 fL (9.4-12.4); Platelet Count 347 K/uL (130-400); RDW Coefficient of Variation 17.4 % (11.5-14.5); RDW Standard Deviation 56.5 fL (36.4-46.3); Red Blood Count 3.35 M/uL (4.20-5.40); White Blood Count 5.26 K/ul (4.8-10.8)
[2023-08-24 08:12] LABS: Albumin Globulin Ratio 1.3 (0.9-2); Bilirubin,Total 0.4 mg/dl (0.2-1.0); Calcium 8.5 mg/dl (8.6-10.3); Creatinine Clr Calc Pharmacy 109.2 ml/min; Est GFR (African American) 119.8 ml/min; Est GFR (Non-African American) 103.3 ml/min; Globulin 2.3 gm/dl (2.5-4.0); Magnesium 1.9 mg/dl (1.7-2.4); Phosphorus 3.8 mg/dl (2.5-4.9); Potassium 3.3 mmol/L (3.5-5.1); Total Protein 5.3 gm/dl (6.0-8.3)
[2023-08-24] MEDS: POTASSIUM CHLORIDE / WTR 10 MEQ/100 ML PLCT IV SCH (10:36)
--- NOTE | 2023-08-24 14:11 | Communication Note ---
Date of Service: August 24, 2023 appears to have tolerated clozaril 12.5 mg hs and perhaps slept a little better thought clearly still varies. slow titration of clozaril in 12.5 mg increments, mainly at night to minimize daytime sed/orthostasis. Will not titrate to previous dose as likely too high but trying to address presumed negative symptoms though repeat head imaging is pending and hypoactive delirium remains in differential. Dr. Elmore to assume clinical responsibility for service today after 1700 hrs.
--- NOTE | 2023-08-24 14:50 | Hospitalist Progress Note ---
Date of Service August 24, 2023 Assessment & Plan (1) Stercoral colitis: (2) Constipation, chronic: (3) Full code status: (4) Aspiration pneumonia: (5) On mechanically assisted ventilation: (6) Acute respiratory failure: Plan Pt is a 72yoF with PMHx significant for HTN, HLD, DMII, hypothyroidism, Hx of brain tumor s/p partial resection, schizophrenia, prior migraine, chronic anemia, recurrent UTIs, urinary incontinence and urinary bladder diverticulum presented after being found down and minimally responsive at home. Patient was admitted to the ICU for management and evaluation of septic shock. Was downgraded and re-intubated in the ICU on 08/11. Acute respiratory failure requiring mechanical ventilation On admission, was secondary to severe sepsis above, requiring intubation Vent management per ICU, pt extubated on 08/08 On Aug 09- pt developed acute respiratory failure once more - Pt with increasing oxygen requirement. - Chest xray with bilateral opacities, pneumonia (?possible aspiration), procalcitonin elevated >34. -Was on hi emy oxygen, pt in restraints. -Pulmonology previously consulted- appreciate recs. -Diuresing with IV Lasix. -Transferred to ICU once more on 08/11 Transferred back to the ICU on 08/11 -was on bipap and re-intubated on 08/11 -bronch also done on 08/11 with cultures obtained and currently growing ryan. Noted mucoid impaction in RLL. -was on propofol and fentanyl for sedation -extubated once more on 08/15, currently on RA Cognitive Impairment Schizophrenia Acute Agitation/Delirium Required 24 hour support previously, relies on assistance of two care givers [employer] On clozapine, cymbalta, gabapentin at home, all held Pt pulling at lines and more agitated on 08/09 -will re-start home clozapine, per recs needs to titrated up slowly if held for more than 48hrs due to risk of bradycardia, hypotension -pt's home dose of clozapine 50mg qAM, 300mg qPM -clozapine restart on 08/10 at 12.5mg qAM, titrate dose up to home dosing -> now on hold, psych consulted -will hold off on restarting sedating/other meds above (gabapentin, cymbalta) Delirium precautions. Head CT as per ICU,negative for any acute findings Pt was treated with precedex in the ICU and that was dc on 08/13. Psychiatry subsequently consulted -resuming clorazil at this time, slowly -trial of Ativan 1mg on 08/23 -Head imaging pending until pt more stable to be in scanner/laying flat without concern for aspiration Neurology also consulted - last time seen by Dr. Cordova on 08/16 - EEG August 07 showed generalized slowing from encephalopathy but no epileptiform activity. -The patient also has a history of schizophrenia and is on Clozaril -Recommendations: 1. Now that she is extubated, increase activity as able, include physical, occupational, and speech therapy. 2. If the patient does not have a history of chronic left-sided weakness, consider MRI of the brain with and without contrast when more clinically stable. Anorexia Pt reportedly was not taking PO, not opening mouth NGT tube placed for nutritional needs (08/19) and started on feeds Has been receiving some meds orally, consider trial of po food intake -speech eval on 08/24 noted: pt a bit more sleepy -speech recommending permanent feeding option such as PEG Consider PEG tube placement once more stable otherwise Severe constipation Stercoral Colitis CT Abd/pelvis showing significant stool burden on admission On lactulose, received enemas Reportedly pt had many BMs before General surgery consulted- appreciate recs -recommending to continue with bowel regimen, consider suppositories if pt unable to tolerate PO Currently resolved, cont. to closely monitor Bowel regimen resumed, on a scheduled basis with daily stool softener and lactulose BID dosing. Continue to monitor BM -last documented BM in chart from 08/19 -glycerin suppository daily added to regimen of lactulose 20mg BID until she has a documented BM -docusate/senna also increased to BID dosing Septic shock-POA Pt was hypotensive on admission, requiring ICU admission Required pressor support which has since been discontinued. UA repeatedly without signs of infection, urine Cx with NGTD Chest XR with no signs of infection, biofire negative CT abd/pelvis with suggestion of stercoral colitis, bowel perforation less likely/ruled out Blood Cx x1 grew alpha strep, ?contaminant Was treated with Vanc/Zosyn. 08/10- pt with increased oxygen requirement, chest xray with noted possible pneumonia (also fluid overload), procal newly elevated. Pulmonology consulted- pt switched to meropenem for antibiotic coverage. Repeat Blood Cultures with NGTD. Pt completed abx treatment while hospitalized. Currently resolved. Oral ryan/ ? poss. ryan esophagitis Patient does not follow commands and does not open her mouth when asked. However she yawned several times, and there is a visible white plaque on her tongue. Nystatin ordered however difficult for nurses to actually apply nystatin as patient does not follow commands, does not open her mouth when asked. Started fluconazole. Cont. to monitor. FULL CODE STATUS On Aug 10, 2023, advised by CM that there is a rastafari contact who might be able to weigh in on code discussion given pt has no known family with whom she is in contact to assist with her decisions during critical times. Listed contact in the chart is a Caregiver from an agency and does not want to be responsible for making those decisions for the pt. Mr. Weston Archibald [phone] was contacted about 4:45PM as advised by Case Management. He states that his only contact with the patient was visiting on behalf of the rastafari. Would not describe himself as a friend. Notes that he was advised by someone in the medical field that this should likely go to the Ethics committee. States that he is concerned about what the law states in terms of being able to speak on her behalf. Does note in his conversations with the patient that she has always wanted to be well and "go home" (he makes the distinction not her heavenly home) so he would assume that she wants heroic measures done. States that he has been at [facility] [address] in the past and has visited pts who have been here for months and states that he believes this is what June would want as well. Next steps currently pending. Appreciate CM assistance. GOC discussions to be continued, still full code. Hypothyroidism Levothyroxine resumed, continue Hypertension Held home antihypertensive while patient was on vasopressors BP currently trending back up Was on iv metoprolol, home po metoprolol resumed Home lisinopril was previously resumed Home amlodipine resumed as well. Continue to monitor HLD holding statin DMII Hold home metformin Recurrent UTI Continue home methenamine when able to take po Recurrent migraines Continue home riboflavin Chronic normocytic anemia Hgb baseline ~10, stable Monitor CBC Diet: currently on tube feeds DVT prophylaxis: Lovenox SQ Dispo: PT/OT ordered, pt has caregivers CODE STATUS: Pt's listed contact in chart was contacted on 08/09 to discuss code status. She states that she works with an agency and is pt's caregiver but is not equipped nor does she want the responsibility of making life/ decisions for pt. She states pt has no POA and is estranged from living family, a sister with whom she was in contact passed recently. CM aware. Admission and Anticipated Discharge Date Admission Date: August 06, 2023 Subjective Pt was seen sitting up in bed. A bit more sleepy today, awakens when name called. Still nonverbal. Review of Systems Review of Systems: All systems reviewed & are unremarkable except as noted in Subjective Physical Exam Physical Exam: General: sitting up in bed Psych: mood and affect could not be determined Neuro: drowsy HEENT: NC/AT, feeding tube in nares CV: RRR Resp:no increased effort of breathing Abdomen: soft Extremities:waffle boots lower extremities bilaterally. Results & Data Results & Data Vital Signs (Past 12 Hours) Vital Signs Temp Pulse Resp BP Pulse Ox O2 Del Method 08/24/23 10:33 37.4 C 72 16 143/68 H 98 Room Air 08/24/23 07:28 Room Air 08/24/23 07:07 37.1 C 80 16 150/70 H 96 Room Air 08/24/23 03:31 37.0 C 74 20 169/67 H 96 Room Air (4) Aspiration pneumonia Laterality: bilateral
[2023-08-24] MEDS: cloZAPine 25 MG TAB PO SCH (19:59)
[2023-08-25 07:47] LABS: Hematocrit (blood only) 31.1 % (37.0-47.0); Hemoglobin 9.7 g/dl (12.0-16.0); Mean Corpuscular Hemoglobin 28.3 pg (25.0-34.0); Mean Corpuscular Hgb Conc 31.2 g/dL (32.0-36.0); Mean Corpuscular Volume 90.7 fL (80.0-100.0); Mean Platelet Volume 10.6 fL (9.4-12.4); Platelet Count 313 K/uL (130-400); RDW Coefficient of Variation 17.5 % (11.5-14.5); RDW Standard Deviation 57.5 fL (36.4-46.3); Red Blood Count 3.43 M/uL (4.20-5.40); White Blood Count 6.09 K/ul (4.8-10.8)
[2023-08-25 08:09] LABS: Albumin Globulin Ratio 1.3 (0.9-2); Albumin Level 2.9 gm/dl (3.4-5.0); BUN Creatinine Ratio 43.2 (10-20); Bilirubin,Total 0.4 mg/dl (0.2-1.0); Calcium 8.5 mg/dl (8.6-10.3); Creatinine Clr Calc Pharmacy 107.1 ml/min; Est GFR (African American) 122.9 ml/min; Globulin 2.3 gm/dl (2.5-4.0); Phosphorus 3.8 mg/dl (2.5-4.9); Potassium 3.9 mmol/L (3.5-5.1); Total Protein 5.2 gm/dl (6.0-8.3)
[2023-08-25] MEDS: DOCUSATE SODIUM/SENNA 50/8.6MG TAB PO SCH (09:20)
[2023-08-25] MEDS: GLYCERIN ADULT 12 SUPP/BOX SUPP PR SCH (09:21)
--- NOTE | 2023-08-25 13:14 | Psychiatric Progress Note ---
Date of Service August 25, 2023 Impression / Recommendations Impression As per initial consult: 72 yo female with remote hx of schizophrenia maintained on same dose of clozaril for what appears to be 20+ years. Unclear last psychotic symptoms and complicated by onset of dementia with intermittent AMS. Review of chart reveals gradual increase in falls, dizziness, and severe constipation. Unclear how much due to medical illness vs. possible clozaril toxicity given no change in dose with age, etc. Unclear if siallorhea at baseline and if that could contribute to aspiration risk. Given risks of orthostasis, alter seizure thresshold, paralytic ileus, PE, etc in patients on clozaril I feel the risks outweigh the immediate benefits of retitrating while still intubated. Continuing to present nonverbal---differential includes aphasia due to neurologic event, atypical catatonia, and/or severe abulia due to negative symptom of schizophrenia. Ativan challenge was not helpful. This may mean that her issue is less likely to be catatonia. We will slowly titrate the clozapine up, but we will not approach the high dose she was on before admission. Overall, I spent a total of 35 with this case, including review of chart, coordination with nursing, coordination of care with hospitalist service, and documentation. (1) Schizophrenia: (2) Acute respiratory failure: (3) Aspiration pneumonia: (4) Constipation, chronic: (5) Encephalopathy acute: Plan No change to clozapine today, but I will likely increase to 37.5 mg tomorrow. Given her medical issues and age, we want to go slowly. Suicide Risk Level Suicide Risk Level Comments: Low given that she is not moving much and not speaking at all. Interval History Identifying Information 72 yo female with a hx of schizophrenia, consult by hospitalist service for recs re: clozaril dosing. At the time of the initial consult she was intubated in the ICU. Chief Complaint Pt is nonverbal. Subjective Subjective Patient was seen & assessed and interval progress reviewed with nursing and Dr. Khan. The nurse mentioned that the patient has still been silent. She is getting her clozapine per tube. I noticed that the dose increased to 25 mg yesterday. Right before I arrived on the unit, the patient had a run of V. tach which is not typical. Physical Exam Psychiatric The patient was alert and made eye contact with me. She was cleaned in hospital gown and getting tube fed. She did not speak. She did not appear to be attending to hallucinations. She did not seem alarmed or paranoid. No abnormal movements were seen. Vital Signs (Past 24 Hours) Last Vital Signs Temp 37.2 C 08/25/23 11:26 Pulse 72 08/25/23 11:26 Resp 18 08/25/23 11:26 BP 151/71 H 08/25/23 11:26 Pulse Ox 98 08/25/23 11:26 O2 Del Method Room Air 08/25/23 11:26 O2 Flow Rate 35 08/13/23 20:00 FiO2 21 08/17/23 04:17 Results & Data ([facility]) Laboratory Results Laboratory Results - last 24 hr 08/24/23 08/24/23 08/25/23 18:27 23:48 05:46 WBC RBC Hgb Hct MCV MCH MCHC RDW Std Deviation RDW Coeff of Cyn Plt Count MPV Sodium Potassium Chloride Carbon Dioxide Anion Gap BUN Creatinine Est Cr Clr Drug Dosing Est GFR ( Amer) Est GFR (Non-Af Amer) BUN/Creatinine Ratio Glucose POC Glucose 158 H 181 H 71 Calcium Phosphorus Magnesium Total Bilirubin AST ALT Alkaline Phosphatase Total Protein Albumin Globulin Albumin/Globulin Ratio 08/25/23 08/25/23 07:04 11:51 WBC 6.09 RBC 3.43 L Hgb 9.7 L Hct 31.1 L MCV 90.7 MCH 28.3 MCHC 31.2 L RDW Std Deviation 57.5 H RDW Coeff of Cyn 17.5 H Plt Count 313 MPV 10.6 Sodium 142 Potassium 3.9 Chloride 109 H Carbon Dioxide 27 Anion Gap 6 BUN 16 Creatinine 0.37 L Est Cr Clr Drug Dosing 107.1 Est GFR ( Amer) 122.9 Est GFR (Non-Af Amer) 106.0 BUN/Creatinine Ratio 43.2 H Glucose 153 H POC Glucose 169 H Calcium 8.5 L Phosphorus 3.8 Magnesium 2.0 Total Bilirubin 0.4 AST 15 ALT 10 Alkaline Phosphatase 67 Total Protein 5.2 L Albumin 2.9 L Globulin 2.3 L Albumin/Globulin Ratio 1.3 Current Inpatient Medications Current Inpatient Medications: Current Inpatient Medications Amlodipine Besylate (Amlodipine Besylate 5 Mg Tab) 5 mg PO DAILY JAMEL Stop: 09/22/23 08:59 Last Admin: 08/25/23 09:21 Dose: 5 mg Clozapine (Clozapine 25 Mg Tab) 25 mg PO HS JAMEL; Protocol Stop: 09/23/23 20:59 Last Admin: 08/24/23 19:59 Dose: 25 mg Dextrose (Dextrose 50% 50 Ml Syringe) 25 - 50 ml IV UD PRN; Protocol PRN Reason: Hypoglycemia Protocol Stop: 09/05/23 21:53 Enoxaparin Sodium (Enoxaparin Inj 40 Mg/0.4 Ml Syr) 40 mg SQ Q24H JAMEL Stop: 09/11/23 13:59 Last Admin: 08/24/23 13:16 Dose: 40 mg Enteral Nutritional Formula (Fibersource Hn 1.2 German 1000 Ml Bag) 1,000 ml NG .See Protocol JAMEL; Protocol Stop: 09/18/23 11:29 Last Admin: 08/24/23 23:26 Dose: 1,000 ml Fluconazole (Fluconazole Susp 100 Mg/2.5 Ml Udp) 100 mg PO QAM [facility] Stop: 08/31/23 08:59 Last Admin: 08/25/23 11:52 Dose: 100 mg Fluticasone Propionate (Fluticasone Propionate Na Spr 16 Gm Btl) 2 sprays NA DAILY [facility] Stop: 09/09/23 08:59 Last Admin: 08/25/23 09:22 Dose: 2 sprays Glucagon (Glucagon For Inj 1 Mg Vial) 1 mg SQ UD PRN; Protocol PRN Reason: Hypoglycemia Protocol Stop: 09/05/23 21:53 Glucose (Glucose 40% Gel 15 Gm Tube) 15 - 30 gm PO UD PRN; Protocol PRN Reason: Hypoglycemia Protocol Stop: 09/05/23 21:53 Glucose (Glucose 10 Tab/Tube) 4 - 8 tab PO UD PRN; Protocol PRN Reason: Hypoglycemia Treatment Stop: 09/05/23 21:53 Glycerin (Glycerin Adult 12 Supp/Box Supp) 1 supp ME DAILY JAMEL Stop: 09/24/23 08:59 Last Admin: 08/25/23 09:21 Dose: 1 supp Thiamine HCl 100 mg/ Syringe 10 mls @ 2 mls/min IV DAILY JAMEL Stop: 09/11/23 08:59 Last Admin: 08/25/23 09:20 Dose: 2 mls/min Pantoprazole Sodium 40 mg/ (Syringe) 10 mls @ 5 mls/min IV DAILY [facility] Stop: 09/11/23 09:59 Last Admin: 08/25/23 09:19 Dose: 5 mls/min Levothyroxine Sodium 37.5 mcg/ (Syringe) 1.875 mls @ 2 mls/min IV Q72H [facility] Stop: 09/14/23 08:59 Last Admin: 08/24/23 10:23 Dose: 2 mls/min Dextrose/Sodium Chloride (D5w And Nss) 1,000 mls @ 75 mls/hr IV .[id number] [facility] Stop: 09/16/23 21:14 Last Infusion: 08/18/23 12:26 Dose: Infused Insulin Aspart (Insulin Aspart Per Unit Charge) 0 units SC Q6 [facility] Stop: 09/18/23 11:59 Last Admin: 08/25/23 12:01 Dose: 5 units Lactulose (Lactulose Syrup 20 Gm/30 Ml Udc) 20 gm PO BID [facility] Stop: 09/06/23 09:44 Last Admin: 08/25/23 09:22 Dose: 20 gm Lisinopril (Lisinopril 20 Mg Tab) 20 mg PO QAM [facility] Stop: 09/19/23 15:59 Last Admin: 08/25/23 09:23 Dose: 20 mg Metoprolol Succinate (Metoprolol Succ 50mg Ext Rel Tab) 50 mg PO QAM [facility] Stop: 09/22/23 08:59 Last Admin: 08/25/23 09:21 Dose: 50 mg Miscellaneous (Carbohydrates For Hypoglycemia ) 15 - 30 gm PO UD PRN PRN Reason: Hypoglycemia Protocol Stop: 09/05/23 21:53 Nystatin (Nystatin Susp 500,000 U/5 Ml Udc) 10 ml PO TID [facility] Stop: 08/28/23 20:59 Last Admin: 08/25/23 09:20 Dose: 10 ml Polyethylene Glycol (Polyethylene (Miralax) 17 Gm Pack) 17 gm PO DAILY PRN PRN Reason: Constipation Stop: 09/09/23 05:17 Last Admin: 08/21/23 09:01 Dose: 17 gm Senna/Docusate Sodium (Docusate Sodium/Senna 50/8.6mg Tab) 1 tab PO BID [facility] Stop: 09/24/23 08:59 Last Admin: 08/25/23 09:20 Dose: 1 tab Sterile Water (Tube Feeding Water Flush) 30 ml NG Q4H [facility] Stop: 09/18/23 11:29 Last Admin: 08/25/23 11:52 Dose: 30 ml (3) Aspiration pneumonia Laterality: bilateral
--- NOTE | 2023-08-25 15:22 | Hospitalist Progress Note ---
Date of Service August 25, 2023 Assessment & Plan (1) Stercoral colitis: (2) Constipation, chronic: (3) Full code status: (4) Aspiration pneumonia: (5) On mechanically assisted ventilation: (6) Acute respiratory failure: Plan Pt is a 72yoF with PMHx significant for HTN, HLD, DMII, hypothyroidism, Hx of brain tumor s/p partial resection, schizophrenia, prior migraine, chronic anemia, recurrent UTIs, urinary incontinence and urinary bladder diverticulum presented after being found down and minimally responsive at home. Patient was admitted to the ICU for management and evaluation of septic shock. Was downgraded and re-intubated in the ICU on 08/11. Acute respiratory failure requiring mechanical ventilation On admission, was secondary to severe sepsis above, requiring intubation Vent management per ICU, pt extubated on 08/08 On Aug 09- pt developed acute respiratory failure once more - Pt with increasing oxygen requirement. - Chest xray with bilateral opacities, pneumonia (?possible aspiration), procalcitonin elevated >34. -Was on hi emy oxygen, pt in restraints. -Pulmonology previously consulted- appreciate recs. -Diuresing with IV Lasix. -Transferred to ICU once more on 08/11 Transferred back to the ICU on 08/11 -was on bipap and re-intubated on 08/11 -bronch also done on 08/11 with cultures obtained and currently growing ryan. Noted mucoid impaction in RLL. -was on propofol and fentanyl for sedation -extubated once more on 08/15, currently on RA Cognitive Impairment Schizophrenia Acute Agitation/Delirium Required 24 hour support previously, relies on assistance of two care givers [employer] On clozapine, cymbalta, gabapentin at home, all held Pt pulling at lines and more agitated on 08/09 -will re-start home clozapine, per recs needs to titrated up slowly if held for more than 48hrs due to risk of bradycardia, hypotension -pt's home dose of clozapine 50mg qAM, 300mg qPM -clozapine restart on 08/10 at 12.5mg qAM, titrate dose up to home dosing -> now on hold, psych consulted -will hold off on restarting sedating/other meds above (gabapentin, cymbalta) Delirium precautions. Head CT as per ICU,negative for any acute findings Pt was treated with precedex in the ICU and that was dc on 08/13. Psychiatry subsequently consulted -resuming clorazil at this time, slowly -trial of Ativan 1mg on 08/23 -Head imaging pending until pt more stable to be in scanner/laying flat without concern for aspiration Neurology also consulted - last time seen by Dr. Cordova on 08/16 - EEG August 07 showed generalized slowing from encephalopathy but no epileptiform activity. -The patient also has a history of schizophrenia and is on Clozaril -Recommendations: 1. Now that she is extubated, increase activity as able, include physical, occupational, and speech therapy. 2. If the patient does not have a history of chronic left-sided weakness, consider MRI of the brain with and without contrast when more clinically stable. Anorexia Pt reportedly was not taking PO, not opening mouth NGT tube placed for nutritional needs (08/19) and started on feeds Has been receiving some meds orally, consider trial of po food intake -speech eval on 08/24 noted: pt a bit more sleepy -speech recommending permanent feeding option such as PEG -GI consult placed on 08/25 for possible PEG tube placement Consider PEG tube placement once more stable otherwise Severe constipation Stercoral Colitis CT Abd/pelvis showing significant stool burden on admission On lactulose, received enemas Reportedly pt had many BMs before General surgery consulted- appreciate recs -recommending to continue with bowel regimen, consider suppositories if pt unable to tolerate PO Currently resolved, cont. to closely monitor Bowel regimen resumed, on a scheduled basis with daily stool softener and lactulose BID dosing. Continue to monitor BM -last documented BM in chart from 08/19 -glycerin suppository daily added to regimen of lactulose 20mg BID until she has a documented BM -docusate/senna also increased to BID dosing Septic shock-POA Pt was hypotensive on admission, requiring ICU admission Required pressor support which has since been discontinued. UA repeatedly without signs of infection, urine Cx with NGTD Chest XR with no signs of infection, biofire negative CT abd/pelvis with suggestion of stercoral colitis, bowel perforation less likely/ruled out Blood Cx x1 grew alpha strep, ?contaminant Was treated with Vanc/Zosyn. 08/10- pt with increased oxygen requirement, chest xray with noted possible pneumonia (also fluid overload), procal newly elevated. Pulmonology consulted- pt switched to meropenem for antibiotic coverage. Repeat Blood Cultures with NGTD. Pt completed abx treatment while hospitalized. Currently resolved. Oral ryan/ ? poss. ryan esophagitis Patient does not follow commands and does not open her mouth when asked. However she yawned several times, and there is a visible white plaque on her tongue. Nystatin ordered however difficult for nurses to actually apply nystatin as patient does not follow commands, does not open her mouth when asked. Started fluconazole. Cont. to monitor. FULL CODE STATUS On Aug 10, 2023, advised by CM that there is a christianity contact who might be able to weigh in on code discussion given pt has no known family with whom she is in contact to assist with her decisions during critical times. Listed contact in the chart is a Caregiver from an agency and does not want to be responsible for making those decisions for the pt. Mr. Weston Archibald [phone] was contacted about 4:45PM as advised by Case Management. He states that his only contact with the patient was visiting on behalf of the christianity. Would not describe himself as a friend. Notes that he was advised by someone in the medical field that this should likely go to the Ethics committee. States that he is concerned about what the law states in terms of being able to speak on her behalf. Does note in his conversations with the patient that she has always wanted to be well and "go home" (he makes the distinction not her heavenly home) so he would assume that she wants heroic measures done. States that he has been at [facility] in the past and has visited pts who have been here for months and states that he believes this is what June would want as well. Next steps currently pending. Appreciate CM assistance. GOC discussions to be continued, still full code. Hypothyroidism Levothyroxine resumed, continue Hypertension Held home antihypertensive while patient was on vasopressors BP currently trending back up Was on iv metoprolol, home po metoprolol resumed Home lisinopril was previously resumed Home amlodipine resumed as well. Continue to monitor HLD holding statin DMII Hold home metformin Recurrent UTI Continue home methenamine when able to take po Recurrent migraines Continue home riboflavin Chronic normocytic anemia Hgb baseline ~10, stable Monitor CBC Diet: currently on tube feeds DVT prophylaxis: Lovenox SQ Dispo: PT/OT ordered, pt has caregivers CODE STATUS: Pt's listed contact in chart was contacted on 08/09 to discuss code status. She states that she works with an agency and is pt's caregiver but is not equipped nor does she want the responsibility of making life/ decisions for pt. She states pt has no POA and is estranged from living family, a sister with whom she was in contact passed recently. CM aware. Admission and Anticipated Discharge Date Admission Date: August 06, 2023 Subjective Pt was seen laying in bed. A bit more sleepy today, awakens when name called. Still nonverbal. Review of Systems Review of Systems: Unobtainable due to cognitive status Physical Exam Physical Exam: General: laying in bed Psych: mood and affect could not be determined Neuro: drowsy HEENT: NC/AT, feeding tube in nares CV: RRR Resp:no increased effort of breathing Abdomen: soft Extremities:waffle boots lower extremities bilaterally. Results & Data Results & Data Vital Signs (Past 12 Hours) Vital Signs Temp Pulse Pulse Resp BP Pulse Ox O2 Del Method 08/25/23 13:12 180 H 08/25/23 11:26 37.2 C 72 18 151/71 H 98 Room Air 08/25/23 08:00 73 08/25/23 08:00 Room Air 08/25/23 07:36 36.7 C 75 18 146/63 H 97 Room Air 08/25/23 03:38 37.6 C H 80 18 160/66 H 97 Room Air (4) Aspiration pneumonia Laterality: bilateral
[2023-08-26] MEDS: ACETAMINOPHEN 1,000 MG/100 ML VIAL IV PRN (04:51)
[2023-08-26 05:18] LABS: Appearance Urine Turbid (Clear); Bilirubin Urine Negative (Negative); Blood Urine 3+ (Negative); Color Urine Dark Yellow; Epithelial Cell Urine Auto 20-30 /lpf (0-5); Glucose Urine UA Negative (Negative); Ketones Urine Negative (Negative); Leukocyte Esterase Urine 2+ (Negative); Nitrite Urine Positive (Negative); RBC Urine Automated >30 /hpf (0-4); Specific Gravity Urine 1.022 (1.000-1.030); Urobilinogen Urine Positive (Negative); WBC Urine Automated >30 /hpf (0-5); pH Urine 7.5 (4.5-7.5)
[2023-08-26 05:20] LABS: Protein Urine 2+ (Negative)
[2023-08-26 05:37] LABS: Bacteria Urine Automated 4+ (Negative)
[2023-08-26 06:29] LABS: Basophils # (auto) 0.04 K/uL (0.00-0.20); Basophils % (auto) 0.8 %; Hematocrit (blood only) 29.2 % (37.0-47.0); Hemoglobin 9.3 g/dl (12.0-16.0); Immature Granulocytes # (auto) 0.02 K/uL (0.01-0.20); Immature Granulocytes % (auto) 0.4 %; Lymphocytes # (auto) 1.11 K/uL (1.20-3.40); Lymphocytes % (auto) 21.6 %; Mean Corpuscular Hemoglobin 28.5 pg (25.0-34.0); Mean Corpuscular Hgb Conc 31.8 g/dL (32.0-36.0); Mean Corpuscular Volume 89.6 fL (80.0-100.0); Mean Platelet Volume 11.2 fL (9.4-12.4); Monocytes # (auto) 0.58 K/uL (0.11-0.59); Monocytes % (auto) 11.3 %; Neutrophils % (auto) 65.9 %; Platelet Count 275 K/uL (130-400); RDW Coefficient of Variation 17.2 % (11.5-14.5); RDW Standard Deviation 55.8 fL (36.4-46.3); Red Blood Count 3.26 M/uL (4.20-5.40); White Blood Count 5.15 K/ul (4.8-10.8)
--- NOTE | 2023-08-26 06:56 | Communication Note ---
Date of Service: August 26, 2023 Patient noted to be febrile as per RN. Loose stools. AP Fever Rule out C. difficile rule out UTI Check stool C. difficile Check UA
[2023-08-26 07:09] LABS: Albumin Globulin Ratio 1.3 (0.9-2); BUN Creatinine Ratio 56.8 (10-20); Bilirubin,Total 0.4 mg/dl (0.2-1.0); Calcium 8.7 mg/dl (8.6-10.3); Creatinine Clr Calc Pharmacy 107.1 ml/min; Est GFR (African American) 122.9 ml/min; Globulin 2.4 gm/dl (2.5-4.0); Magnesium 1.9 mg/dl (1.7-2.4); Phosphorus 3.8 mg/dl (2.5-4.9); Potassium 3.9 mmol/L (3.5-5.1); Total Protein 5.4 gm/dl (6.0-8.3)
--- NOTE | 2023-08-26 08:44 | Psychiatric Progress Note ---
Date of Service August 26, 2023 Impression / Recommendations Impression As per initial consult: 72 yo female with remote hx of schizophrenia maintained on same dose of clozaril for what appears to be 20+ years. Unclear last psychotic symptoms and complicated by onset of dementia with intermittent AMS. Review of chart reveals gradual increase in falls, dizziness, and severe constipation. Unclear how much due to medical illness vs. possible clozaril toxicity given no change in dose with age, etc. Unclear if siallorhea at baseline and if that could contribute to aspiration risk. Given risks of orthostasis, alter seizure thresshold, paralytic ileus, PE, etc in patients on clozaril I feel the risks outweigh the immediate benefits of retitrating while still intubated. Continuing to present nonverbal---differential includes aphasia due to neurologic event, atypical catatonia, and/or severe abulia due to negative symptom of schizophrenia. Ativan challenge was not helpful. This may mean that her issue is less likely to be catatonia. We will slowly titrate the clozapine up, but we will not approach the high dose she was on before admission. It is extremely unlikely that this low dose of clozapine would be causing neuroleptic malignant syndrome (NMS) so it is very unlikely the temperature of 38.0 C is related in any way to the antipsychotic. Overall, I spent a total of 26 minutes with this case, including review of chart, coordination with nursing, coordination of care with hospitalist service, and documentation. (1) Schizophrenia: (2) Acute respiratory failure: (3) Aspiration pneumonia: (4) Constipation, chronic: (5) Encephalopathy acute: Plan Today we will increase clozapine to 37.5 mg. Given her medical issues and age, we we will continue to go very slowly. Suicide Risk Level Suicide Risk Level Comments: Low given that she is not moving much and not speaking at all. Interval History Identifying Information 72 yo female with a hx of schizophrenia, consult by hospitalist service for recs re: clozaril dosing. At the time of the initial consult she was intubated in the ICU. Chief Complaint Patient is nonverbal. Subjective Subjective Today I met with the patient, reviewed the chart, spoke with the nurse, and discussed the case with Dr. Handy. Patient is still nonverbal. She was noted overnight to have a temperature of 38.0 C and had a loose stool. The nurse reports that she has not been causing any issues on the unit, has not been agitated, and has not been trying to pull out her feeding tube or do anything along those lines. When I went in to meet with her this morning, she was resting but opened her eyes to my voice. She did not answer any my questions, but did not look particularly distressed, may be slightly frustrated. Physical Exam Psychiatric The patient was alert and made good eye contact with me. She was clean in a hospital gown and had an NG tube. She did not speak. She did not appear to be attending to hallucinations. She did not seem distressed, alarmed, agitated, or paranoid. No abnormal movements were seen. Vital Signs (Past 24 Hours) Last Vital Signs Temp 36.9 C 08/26/23 07:01 Pulse 70 08/26/23 07:01 Resp 18 08/26/23 07:01 BP 142/73 H 08/26/23 07:01 Pulse Ox 98 08/26/23 07:01 O2 Del Method Room Air 08/26/23 07:01 O2 Flow Rate 35 08/13/23 20:00 FiO2 21 08/17/23 04:17 Results & Data ([facility]) Laboratory Results Laboratory Results - last 24 hr 08/25/23 08/25/23 08/26/23 11:51 17:43 00:14 WBC RBC Hgb Hct MCV MCH MCHC RDW Std Deviation RDW Coeff of Cyn Plt Count MPV Immature Gran % (Auto) Neut % (Auto) Lymph % (Auto) Alcorn % (Auto) Eos % (Auto) Baso % (Auto) Neut # (Auto) Lymph # (Auto) Alcorn # (Auto) Eos # (Auto) Baso # (Auto) Immature Gran # (Auto) Sodium Potassium Chloride Carbon Dioxide Anion Gap BUN Creatinine Est Cr Clr Drug Dosing Est GFR ( Amer) Est GFR (Non-Af Amer) BUN/Creatinine Ratio Glucose POC Glucose 169 H 160 H 190 H Calcium Phosphorus Magnesium Total Bilirubin AST ALT Alkaline Phosphatase Total Protein Albumin Globulin Albumin/Globulin Ratio Urine Color Urine Appearance Urine pH Ur Specific Palmer Urine Protein Urine Glucose (UA) Urine Ketones Urine Blood Urine Nitrite Urine Bilirubin Urine Urobilinogen Ur Leukocyte Esterase Urine WBC (Auto) Urine RBC (Auto) U Hyaline Cast (Auto) U Epithel Cells (Auto) Urine Bacteria (Auto) Stl C. diff Tox B Gene 08/26/23 08/26/23 08/26/23 05:24 06:25 06:40 WBC 5.15 RBC 3.26 L Hgb 9.3 L Hct 29.2 L MCV 89.6 MCH 28.5 MCHC 31.8 L RDW Std Deviation 55.8 H RDW Coeff of Cyn 17.2 H Plt Count 275 MPV 11.2 Immature Gran % (Auto) 0.4 Neut % (Auto) 65.9 Lymph % (Auto) 21.6 Alcorn % (Auto) 11.3 Eos % (Auto) 0.0 Baso % (Auto) 0.8 Neut # (Auto) 3.40 Lymph # (Auto) 1.11 L Alcorn # (Auto) 0.58 Eos # (Auto) 0.00 Baso # (Auto) 0.04 Immature Gran # (Auto) 0.02 Sodium 141 Potassium 3.9 Chloride 107 Carbon Dioxide 28 Anion Gap 6 BUN 21 Creatinine 0.37 L Est Cr Clr Drug Dosing 107.1 Est GFR ( Amer) 122.9 Est GFR (Non-Af Amer) 106.0 BUN/Creatinine Ratio 56.8 H Glucose 181 H POC Glucose 198 H Calcium 8.7 Phosphorus 3.8 Magnesium 1.9 Total Bilirubin 0.4 AST 14 ALT 10 Alkaline Phosphatase 69 Total Protein 5.4 L Albumin 3.0 L Globulin 2.4 L Albumin/Globulin Ratio 1.3 Urine Color Urine Appearance Urine pH Ur Specific Palmer Urine Protein Urine Glucose (UA) Urine Ketones Urine Blood Urine Nitrite Urine Bilirubin Urine Urobilinogen Ur Leukocyte Esterase Urine WBC (Auto) Urine RBC (Auto) U Hyaline Cast (Auto) U Epithel Cells (Auto) Urine Bacteria (Auto) Stl C. diff Tox B Gene Negative Cdiff Gene 08/26/23 Unknown WBC RBC Hgb Hct MCV MCH MCHC RDW Std Deviation RDW Coeff of Cyn Plt Count MPV Immature Gran % (Auto) Neut % (Auto) Lymph % (Auto) Alcorn % (Auto) Eos % (Auto) Baso % (Auto) Neut # (Auto) Lymph # (Auto) Alcorn # (Auto) Eos # (Auto) Baso # (Auto) Immature Gran # (Auto) Sodium Potassium Chloride Carbon Dioxide Anion Gap BUN Creatinine Est Cr Clr Drug Dosing Est GFR ( Amer) Est GFR (Non-Af Amer) BUN/Creatinine Ratio Glucose POC Glucose Calcium Phosphorus Magnesium Total Bilirubin AST ALT Alkaline Phosphatase Total Protein Albumin Globulin Albumin/Globulin Ratio Urine Color Dark Yellow Urine Appearance Turbid A Urine pH 7.5 Ur Specific Palmer 1.022 Urine Protein 2+ H Urine Glucose (UA) Negative Urine Ketones Negative Urine Blood 3+ H Urine Nitrite Positive A Urine Bilirubin Negative Urine Urobilinogen Positive H Ur Leukocyte Esterase 2+ H Urine WBC (Auto) >30 H Urine RBC (Auto) >30 H U Hyaline Cast (Auto) 1-5 U Epithel Cells (Auto) 20-30 H Urine Bacteria (Auto) 4+ H Stl C. diff Tox B Gene Current Inpatient Medications Current Inpatient Medications: Current Inpatient Medications Amlodipine Besylate (Amlodipine Besylate 5 Mg Tab) 5 mg PO DAILY [facility] Stop: 09/22/23 08:59 Last Admin: 08/26/23 07:39 Dose: 5 mg Clozapine (Clozapine 25 Mg Tab) 37.5 mg PO HS JAMEL; Protocol Stop: 09/25/23 20:59 Dextrose (Dextrose 50% 50 Ml Syringe) 25 - 50 ml IV UD PRN; Protocol PRN Reason: Hypoglycemia Protocol Stop: 09/05/23 21:53 Enoxaparin Sodium (Enoxaparin Inj 40 Mg/0.4 Ml Syr) 40 mg SQ Q24H J[facility] Stop: 09/11/23 13:59 Last Admin: 08/25/23 15:24 Dose: 40 mg Enteral Nutritional Formula (Fibersource Hn 1.2 German 1000 Ml Bag) 1,000 ml NG .See Protocol JAMEL; Protocol Stop: 09/18/23 11:29 Last Admin: 08/24/23 23:26 Dose: 1,000 ml Fluconazole (Fluconazole Susp 100 Mg/2.5 Ml Udp) 100 mg PO QAM [facility] Stop: 08/31/23 08:59 Last Admin: 08/26/23 07:47 Dose: 100 mg Fluticasone Propionate (Fluticasone Propionate Na Spr 16 Gm Btl) 2 sprays NA DAILY [facility] Stop: 09/09/23 08:59 Last Admin: 08/26/23 07:40 Dose: 2 sprays Glucagon (Glucagon For Inj 1 Mg Vial) 1 mg SQ UD PRN; Protocol PRN Reason: Hypoglycemia Protocol Stop: 09/05/23 21:53 Glucose (Glucose 40% Gel 15 Gm Tube) 15 - 30 gm PO UD PRN; Protocol PRN Reason: Hypoglycemia Protocol Stop: 09/05/23 21:53 Glucose (Glucose 10 Tab/Tube) 4 - 8 tab PO UD PRN; Protocol PRN Reason: Hypoglycemia Treatment Stop: 09/05/23 21:53 Glycerin (Glycerin Adult 12 Supp/Box Supp) 1 supp ID DAILY [facility] Stop: 09/24/23 08:59 Last Admin: 08/26/23 07:44 Dose: 1 supp Thiamine HCl 100 mg/ Syringe 10 mls @ 2 mls/min IV DAILY [facility] Stop: 09/11/23 08:59 Last Admin: 08/26/23 07:41 Dose: 2 mls/min Pantoprazole Sodium 40 mg/ (Syringe) 10 mls @ 5 mls/min IV DAILY [facility] Stop: 09/11/23 09:59 Last Admin: 08/26/23 07:41 Dose: 5 mls/min Levothyroxine Sodium 37.5 mcg/ (Syringe) 1.875 mls @ 2 mls/min IV Q72H [facility] Stop: 09/14/23 08:59 Last Admin: 08/24/23 10:23 Dose: 2 mls/min Dextrose/Sodium Chloride (D5w And Nss) 1,000 mls @ 75 mls/hr IV .[id number] [facility] Stop: 09/16/23 21:14 Last Infusion: 08/18/23 12:26 Dose: Infused Acetaminophen (Ofirmev) 1,000 mg in 100 mls @ 400 mls/hr IV Q8H PRN PRN Reason: pain/fever Stop: 08/29/23 04:29 Last Infusion: 08/26/23 05:14 Dose: Infused Aztreonam 2,000 mg/ Dextrose 100 mls @ 100 mls/hr IV Q8H [facility] Stop: 09/05/23 07:29 Insulin Aspart (Insulin Aspart Per Unit Charge) 0 units SC Q6 [facility] Stop: 09/18/23 11:59 Last Admin: 08/26/23 07:11 Dose: 2 units Lactulose (Lactulose Syrup 20 Gm/30 Ml Udc) 20 gm PO BID [facility] Stop: 09/06/23 09:44 Last Admin: 08/26/23 07:39 Dose: 20 gm Lisinopril (Lisinopril 20 Mg Tab) 20 mg PO QAM [facility] Stop: 09/19/23 15:59 Last Admin: 02/25/24 07:39 Dose: 20 mg Metoprolol Succinate (Metoprolol Succ 50mg Ext Rel Tab) 50 mg PO QAM [facility] Stop: 09/22/23 08:59 Last Admin: 08/26/23 07:40 Dose: 50 mg Miscellaneous (Carbohydrates For Hypoglycemia ) 15 - 30 gm PO UD PRN PRN Reason: Hypoglycemia Protocol Stop: 09/05/23 21:53 Nystatin (Nystatin Susp 500,000 U/5 Ml Ud) 10 ml PO TID [facility] Stop: 08/28/23 20:59 Last Admin: 08/26/23 07:44 Dose: 10 ml Polyethylene Glycol (Polyethylene (Miralax) 17 Gm Pack) 17 gm PO DAILY PRN PRN Reason: Constipation Stop: 09/09/23 05:17 Last Admin: 08/21/23 09:01 Dose: 17 gm Senna/Docusate Sodium (Docusate Sodium/Senna 50/8.6mg Tab) 1 tab PO BID [facility] Stop: 09/24/23 08:59 Last Admin: 08/26/23 07:39 Dose: 1 tab Sterile Water (Tube Feeding Water Flush) 30 ml NG Q4H [facility] Stop: 09/18/23 11:29 Last Admin: 08/26/23 07:37 Dose: 30 ml (3) Aspiration pneumonia Laterality: bilateral
--- NOTE | 2023-08-26 09:08 | Gastrointestinal Consultation ---
Date of Consultation August 26, 2023 Assessment & Plan (1) Schizophrenia: (2) Acute respiratory failure: (3) Aspiration pneumonia: No decreased risk in patients with PEG tube (4) Constipation, chronic: Loose bowels reported overnight, though C-diff was negative Recommend Miralax 17 g in 8 oz of water via PEG tube daily to ensure she is moving her bowels. (5) Adult failure to thrive: Consider PEG tube placement following workup for recent fever It should be noted that a PEG tube does not reduce the risk of aspiration pneumonia, and has been shown to not have a reduced mortality in patients with dementia Will re-evaluate later this admission to determine eligibility for PEG tube History of Present Illness Reason for Consultation: Feeding difficulty, Adult failure to thrive, ? PEG Tube Attending Physician: Shannon Khan MD History of Present Illness 72 yo CF with an extensive PMHx which was reviewed in the chart. All history obtained from chart review as patient was non-verbal and did not respond to questioning. It appears she has had a prolonged hospital course, complicated by respiratory failure with intubation x2 during this hospitalization and treatment of Sepsis from questionable aspiration pneumonia. She was noted to be febrile as recently as last evening and had loose stools prompting a workup for C-diff and a UTI. She has been seen by Speech pathology for aspiration pneumonia, drooling, dysphagia and inability to maintain her caloric intake, and did have an NG tube placed to allow for tube feeds. She has a history of chronic constipation. She does not have a Healthcare POA, but remains full code at this time. We were asked to see her in consultation for possible PEG tube placement. Allergies Allergy/AdvReac Type Severity Reaction Status Date / Time Penicillins Allergy Intermediate Hives Verified 08/06/23 02:02 pollen extracts Allergy Intermediate seasonal Verified 08/06/23 02:02 allergy Cephalosporins AdvReac Intermediate Hallucinations/GI Verified 08/06/23 02:02 UPSET/ CONFUSION cyclobenzaprine AdvReac Intermediate neuro Verified 08/06/23 02:02 [From Flexeril] complications rizatriptan [From Maxalt] AdvReac Intermediate VERTIGO Verified 08/06/23 02:02 Home Medications Medication Instructions Recorded Confirmed Type duloxetine 60 mg capsule,delayed 60 mg PO QAM 04/14/18 08/06/23 History release (Cymbalta) levothyroxine 50 mcg tablet 50 mcg PO DAILYBB 04/14/18 08/06/23 History (Synthroid) loratadine 10 mg tablet (Claritin) 10 mg PO HS PRN Allergy Symptoms 03/25/19 08/06/23 History magnesium oxide 400 mg PO QAM 03/25/19 08/06/23 History atorvastatin 20 mg tablet 20 mg PO HS 11/22/19 08/06/23 History sumatriptan succinate 100 mg tablet 100 mg PO DAILY PRN Headache 11/22/19 08/06/23 History metformin 500 mg tablet 500 mg PO QAM 02/24/21 08/06/23 History riboflavin (vitamin B2) 400 mg 400 mg PO QAM 02/24/21 08/06/23 History tablet fluticasone propionate 50 2 spray intranasal DAILY 07/13/21 08/06/23 History mcg/actuation nasal spray,suspension (Flonase Allergy Relief) aspirin 81 mg chewable tablet 81 mg PO DAILY 05/12/22 08/06/23 History (Aspirin Childrens) docusate sodium 100 mg capsule 100 mg PO BID 07/13/22 08/06/23 History (Colace) gabapentin 100 mg capsule See Rx Instructions .Route .COMPLEX 09/01/22 08/06/23 History cholecalciferol (vitamin D3) 1,250 1,250 mcg PO WK 12/16/22 08/06/23 History mcg (50,000 unit) capsule clozapine 100 mg tablet 300 mg PO HS 12/16/22 08/06/23 History clozapine 25 mg tablet 50 mg PO QAM 12/16/22 08/06/23 History omeprazole 40 mg capsule,delayed 40 mg PO HS 12/16/22 08/06/23 History release lisinopril 20 mg tablet 20 mg PO QAM 01/15/23 08/06/23 History metoprolol succinate 50 mg 50 mg PO QAM 03/08/23 08/06/23 History tablet,extended release 24 hr acetaminophen 500 mg/15 mL oral 100 mg PO Q4H PRN PAIN/FEVER 08/06/23 08/06/23 History liquid amlodipine 5 mg tablet 5 mg PO DAILY 08/06/23 08/06/23 History cyanocobalamin (vitamin B-12) 1,000 mcg PO DAILY 08/06/23 08/06/23 History 1,000 mcg tablet (Vitamin B-12) diclofenac sodium 1 % topical gel 2 g topical TID PRN Pain 08/06/23 08/06/23 History diclofenac sodium 50 mg 50 mg PO BID 08/06/23 08/06/23 History tablet,delayed release iron,carbonyl 65 mg-vitamin C 125 1 tab PO DAILY 08/06/23 08/06/23 History mg tablet,delayed release (Vitron-C) methenamine hippurate 1 gram tablet 1 g PO AMHS 08/06/23 08/06/23 History psyllium 1 tsp PO TID 08/06/23 08/06/23 History Patient History Medical History Schizophrenia Volume overload Weak cough Severe sepsis Aspiration pneumonia Weakness Constipation Bacteremia Acute UTI (urinary tract infection) Generalized weakness AMS (altered mental status) Unresponsive Obtunded COVID-19 Hyponatremia Nausea Dehydration Dizziness Neuropathy Headache Vertigo GERD (gastroesophageal reflux disease) Well controlled with medication Hypothyroidism Anxiety Migraine Hypertension Neuropathy DM2 (diabetes mellitus, type 2) HLD (hyperlipidemia) Somatization disorder Surgical History S/P foot surgery, right X2 S/P foot surgery, left X2 History of colonoscopy History of tooth extraction WISDOM TEETH History of tonsillectomy H/O bilateral cataract extraction History of craniotomy 1969, [place] D/T HEADACHE---FOLLOWS W DR. MICHAEL History of cataract surgery H/O cystoscopy H/O foot surgery H/O brain surgery "abt 1969 R parietal exploration for benign lesion" Family History Grandmother Family history of diabetes mellitus PATERNAL Family/Other Family history of diabetes mellitus UNCLE Father Parkinson disease Mother CHF (congestive heart failure) Social History Smoking Status: Never smoker Second Hand Exposure: Yes (FATHER SMOKED); Do You Dip or Chew Tobacco: No; Hx Alcohol Use: No Hx Substance Use: No Preferred Language: Chilean Communication Ability: Unable It Specialist Required: No Beliefs That Will Affect Care: Church Church Beliefs: caodaism marital status: Single Current Living Situation: Personal Care Facility Current Living Situation Comment: caregivers daily, not on weekends How many Children do You have: 0 Feels Safe at Home: Yes Assistive Devices: Walker Review of Systems Review of Systems: Unobtainable due to cognitive status Physical Exam Constitutional: WD/WN, vitals as above Respiratory: normal respiratory effort; no respiratory distress and no labored breathing Auscultation: + diminished lung sounds Cardiovascular: RRR, no murmur, no edema Gastrointestinal (Abdomen): normal bowel sounds, soft, nontender, no hepatosplenomegaly Skin: no rashes, warm and dry Neurologic: Non-verbal, opens eyes Psychiatric: Eye Contact: good eye contact Results & Data Vital Signs (Past 12 Hours) Vital Signs Temp Pulse Pulse Resp BP Pulse Ox O2 Del Method 08/26/23 07:01 36.9 C 70 18 142/73 H 98 Room Air 08/26/23 04:14 38.0 C H 80 18 156/76 H 97 Room Air 08/26/23 00:00 77 08/25/23 22:30 36.9 C 73 18 134/74 97 Room Air PG Care Time/CCT Total # of Minutes Spent Total Time Spent with Patient: Total time spent is greater than 50% in coordination of care (as documented) at patient's floor/unit and/or counseling patient: Coding Level of Care Code 24956 INT INP/OBS CARE 3/75MIN Diagnoses Schizophrenia F20.9 Acute respiratory failure J96.00 Aspiration pneumonia J69.0 Laterality: bilateral Constipation, chronic K59.09 Adult failure to thrive R62.7 (3) Aspiration pneumonia Laterality: bilateral
[2023-08-26] MEDS: AZTREONAM 2,000 MG in DEXTROSE 5% MINI-B 100 ML IV SCH (09:30)
--- NOTE | 2023-08-26 12:35 | Hospitalist Progress Note ---
Date of Service August 26, 2023 Assessment & Plan (1) Stercoral colitis: (2) Constipation, chronic: (3) Full code status: (4) Aspiration pneumonia: (5) On mechanically assisted ventilation: (6) Acute respiratory failure: Plan Pt is a 72yoF with PMHx significant for HTN, HLD, DMII, hypothyroidism, Hx of brain tumor s/p partial resection, schizophrenia, prior migraine, chronic anemia, recurrent UTIs, urinary incontinence and urinary bladder diverticulum presented after being found down and minimally responsive at home. Patient was admitted to the ICU for management and evaluation of septic shock. Was downgraded and re-intubated in the ICU on 08/11. Acute respiratory failure requiring mechanical ventilation On admission, was secondary to severe sepsis above, requiring intubation Vent management per ICU, pt extubated on 08/08 On Aug 09- pt developed acute respiratory failure once more - Pt with increasing oxygen requirement. - Chest xray with bilateral opacities, pneumonia (?possible aspiration), procalcitonin elevated >34. -Was on hi emy oxygen, pt in restraints. -Pulmonology previously consulted- appreciate recs. -Diuresing with IV Lasix. -Transferred to ICU once more on 08/11 Transferred back to the ICU on 08/11 -was on bipap and re-intubated on 08/11 -bronch also done on 08/11 with cultures obtained and currently growing ryan. Noted mucoid impaction in RLL. 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 Head CT as per ICU,negative for any acute findings Pt was treated with precedex in the ICU and that was dc on 08/13. Psychiatry subsequently consulted -resuming clorazil at this time, slowly -trial of Ativan 1mg on 08/23 -Head imaging pending until pt more stable to be in scanner/laying flat without concern for aspiration Neurology also consulted - last time seen by Dr. Cordova on 08/16 - EEG August 07 showed generalized slowing from encephalopathy but no epileptiform activity. -The patient also has a history of schizophrenia and is on Clozaril -Recommendations: 1. Now that she is extubated, increase activity as able, include physical, occupational, and speech therapy. 2. If the patient does not have a history of chronic left-sided weakness, consider MRI of the brain with and without contrast when more clinically stable. Fever Complicated UTI Pt with fever in early AM on 08/26 -UA suggestive of infection, urine Cx pending. Was started on Aztreonam, continue -c diff negative Anorexia Severe Malnutrition Adult failure to thrive Pt reportedly was not taking PO, not opening mouth NGT tube placed for nutritional needs (08/19) and started on feeds Has been receiving some meds orally, consider trial of po food intake -speech eval on 08/24 noted: pt a bit more sleepy -speech recommending permanent feeding option such as PEG -GI consult placed on 08/25 for possible PEG tube placement -consider PEG after workup and Rx of fever on 08/26 Consider PEG tube placement once more stable otherwise Severe constipation Stercoral Colitis CT Abd/pelvis showing significant stool burden on admission On lactulose, received enemas Reportedly pt had many BMs before General surgery consulted- appreciate recs -recommending to continue with bowel regimen, consider suppositories if pt unable to tolerate PO Currently resolved, cont. to closely monitor Bowel regimen resumed, on a scheduled basis with daily stool softener and lactulose BID dosing. Continue to monitor BM -last documented BM in chart from 08/19, 08/26 -KUB on 08/26 noting persistent large or severe amount of well-formed stool again seen throughout the colon and rectum. -reports of loose stool on 08/26, likely overflow constipation -BOWEL REGIMEN: lactulose 20mg BID + glycerin suppository daily + docusate/senna BID + miralax scheduled TID -GI recommending daily miralax through PEG once placed Septic shock-POA Pt was hypotensive on admission, requiring ICU admission Required pressor support which has since been discontinued. UA repeatedly without signs of infection, urine Cx with NGTD Chest XR with no signs of infection, biofire negative CT abd/pelvis with suggestion of stercoral colitis, bowel perforation less likely/ruled out Blood Cx x1 grew alpha strep, ?contaminant Was treated with Vanc/Zosyn. 08/10- pt with increased oxygen requirement, chest xray with noted possible pneumonia (also fluid overload), procal newly elevated. Pulmonology consulted- pt switched to meropenem for antibiotic coverage. Repeat Blood Cultures with NGTD. Pt completed abx treatment while hospitalized. Currently resolved. Oral ryan/ ? poss. ryan esophagitis Patient does not follow commands and does not open her mouth when asked. However she yawned several times, and there is a visible white plaque on her tongue. Nystatin ordered however difficult for nurses to actually apply nystatin as patient does not follow commands, does not open her mouth when asked. Started fluconazole. Cont. to monitor. FULL CODE STATUS On Aug 10, 2023, advised by CM that there is a jew contact who might be able to weigh in on code discussion given pt has no known family with whom she is in contact to assist with her decisions during critical times. Listed contact in the chart is a Caregiver from an agency and does not want to be responsible for making those decisions for the pt. Mr. Weston Archibald [phone] was contacted about 4:45PM as advised by Case Management. He states that his only contact with the patient was visiting on behalf of the jew. Would not describe himself as a friend. Notes that he was advised by someone in the medical field that this should likely go to the Ethics committee. States that he is concerned about what the law states in terms of being able to speak on her behalf. Does note in his conversations with the patient that she has always wanted to be well and "go home" (he makes the distinction not her heavenly home) so he would assume that she wants heroic measures done. States that he has been at [facility] in the past and has visited pts who have been here for months and states that he believes this is what June would want as well. Next steps currently pending. Appreciate CM assistance. GOC discussions to be continued, still full code. Hypothyroidism Levothyroxine resumed, continue Hypertension Held home antihypertensive while patient was on vasopressors BP currently trending back up Was on iv metoprolol, home po metoprolol resumed Home lisinopril was previously resumed Home amlodipine resumed as well. Continue to monitor HLD holding statin DMII Hold home metformin Recurrent UTI Continue home methenamine when able to take po Recurrent migraines Continue home riboflavin Chronic normocytic anemia Hgb baseline ~10, stable Monitor CBC Diet: currently on tube feeds DVT prophylaxis: Lovenox SQ Dispo: PT/OT ordered, pt has caregivers CODE STATUS: Pt's listed contact in chart was contacted on 08/09 to discuss code status. She states that she works with an agency and is pt's caregiver but is not equipped nor does she want the responsibility of making life/ decisions for pt. She states pt has no POA and is estranged from living family, a sister with whom she was in contact passed recently. CM aware. Admission and Anticipated Discharge Date Admission Date: August 06, 2023 Subjective Pt was seen laying in bed. Sleepy, awakens when name called. Still nonverbal. Review of Systems Review of Systems: All systems reviewed & are unremarkable except as noted in Subjective Physical Exam Physical Exam: General: laying in bed Psych: mood and affect could not be determined Neuro: drowsy HEENT: NC/AT, feeding tube in nares CV: RRR Resp:no increased effort of breathing Abdomen: soft Extremities:waffle boots lower extremities bilaterally. Results & Data Results & Data Vital Signs (Past 12 Hours) Vital Signs Temp Pulse Resp BP Pulse Ox O2 Del Method 08/26/23 11:05 36.7 C 68 18 144/66 H 98 Room Air 08/26/23 07:01 36.9 C 70 18 142/73 H 98 Room Air 08/26/23 04:14 38.0 C H 80 18 156/76 H 97 Room Air (4) Aspiration pneumonia Laterality: bilateral
--- NOTE | 2023-08-26 13:33 | XRay Report ---
KUB HISTORY: abdominal firmness, constipation COMPARISON: KUB 08/19/2023. FINDINGS: There is a large amount of stool again noted throughout the colon and rectum. Nondilated ga s-filled loops of small bowel are seen within the left side the abdomen. This remains unchanged. Stab le 13 mm calcification within the left deep pelvis. This may be located within the bowel. No renal ca lculi. No ureteral calculi. No pneumoperitoneum or pneumatosis. IMPRESSION: Large amount of well-formed stool again seen throughout the colon and rectum. ACT 112: Negative or not required by law. Electronically signed by: Doe Harper M.D. 08/26/2023 1:31 PM
[2023-08-26] MEDS: SOD PHOSPHATE/SOD BIPHOSPHATE ENEMA 132 ML BTL PR STA (13:36)
[2023-08-26] MEDS: POLYETHYLENE (MIRALAX) 17 GM PACK PO SCH (23:32)
[2023-08-26] MEDS: cloZAPine 25 MG TAB PO SCH (23:39)
--- NOTE | 2023-08-27 07:05 | XRay Report ---
KUB CLINICAL HISTORY: Enteric tube placement. FINDINGS: An AP, portable, upright radiograph of the lower chest and upper abdomen is compared to roscoe dy dated 08/26/2023. An enteric tube is in place. The tip projects over the distal stomach. There is n o radiographic evidence of high-grade obstruction. No intraperitoneal free air is seen below the diap hragm. The heart is enlarged. The lung bases are clear as imaged. IMPRESSION: An enteric tube is in place as above. Electronically signed by: Patel Qiu M.D. 08/27/2023 7:03 AM
--- NOTE | 2023-08-27 07:23 | XRay Report ---
KUB CLINICAL HISTORY: tf adjustment COMPARISON STUDY: KUB August 26, 2023 at 1:22 PM. FINDINGS: The tip of the feeding tube proximal body of the stomach. Left pelvic calcification is unch anged. There is a large amount of stool within the rectum and a moderate amount of stool within the c olon. Mild colonic dilatation is unchanged. There is no radiographic evidence for a bowel obstruction . IMPRESSION: Tip of feeding tube within the proximal body of the stomach. ACT 112: Negative or not required by law. Electronically signed by: Lukas Law M.D. 08/27/2023 7:21 AM
[2023-08-27 08:26] LABS: Basophils # (auto) 0.03 K/uL (0.00-0.20); Basophils % (auto) 0.7 %; Eosinophils # (auto) 0.01 K/uL (0.00-0.50); Eosinophils % (auto) 0.2 %; Hematocrit (blood only) 28.9 % (37.0-47.0); Hemoglobin 9.2 g/dl (12.0-16.0); Immature Granulocytes # (auto) 0.01 K/uL (0.01-0.20); Immature Granulocytes % (auto) 0.2 %; Lymphocytes # (auto) 1.09 K/uL (1.20-3.40); Lymphocytes % (auto) 24.4 %; Mean Corpuscular Hemoglobin 28.5 pg (25.0-34.0); Mean Corpuscular Hgb Conc 31.8 g/dL (32.0-36.0); Mean Corpuscular Volume 89.5 fL (80.0-100.0); Monocytes # (auto) 0.58 K/uL (0.11-0.59); Neutrophils # (auto) 2.74 K/uL (1.40-6.50); Neutrophils % (auto) 61.5 %; Platelet Count 243 K/uL (130-400); RDW Standard Deviation 55.3 fL (36.4-46.3); Red Blood Count 3.23 M/uL (4.20-5.40); White Blood Count 4.46 K/ul (4.8-10.8)
[2023-08-27 08:29] LABS: Albumin Globulin Ratio 1.3 (0.9-2); Albumin Level 2.9 gm/dl (3.4-5.0); BUN Creatinine Ratio 63.9 (10-20); Bilirubin,Total 0.3 mg/dl (0.2-1.0); Calcium 8.4 mg/dl (8.6-10.3); Creatinine Clr Calc Pharmacy 110.1 ml/min; Globulin 2.3 gm/dl (2.5-4.0); Magnesium 1.9 mg/dl (1.7-2.4); Phosphorus 3.7 mg/dl (2.5-4.9); Total Protein 5.2 gm/dl (6.0-8.3)
--- NOTE | 2023-08-27 11:44 | Hospitalist Progress Note ---
Date of Service August 27, 2023 Assessment & Plan (1) Stercoral colitis: (2) Constipation, chronic: (3) Full code status: (4) Aspiration pneumonia: (5) On mechanically assisted ventilation: (6) Acute respiratory failure: Plan Pt is a 72yoF with PMHx significant for HTN, HLD, DMII, hypothyroidism, Hx of brain tumor s/p partial resection, schizophrenia, prior migraine, chronic anemia, recurrent UTIs, urinary incontinence and urinary bladder diverticulum presented after being found down and minimally responsive at home. Patient was admitted to the ICU for management and evaluation of septic shock. Was downgraded and re-intubated in the ICU on 08/11. Acute respiratory failure requiring mechanical ventilation On admission, was secondary to severe sepsis above, requiring intubation Vent management per ICU, pt extubated on 08/08 On Aug 09- pt developed acute respiratory failure once more - Pt with increasing oxygen requirement. - Chest xray with bilateral opacities, pneumonia (?possible aspiration), procalcitonin elevated >34. -Was on hi emy oxygen, pt in restraints. -Pulmonology previously consulted- appreciate recs. -Diuresing with IV Lasix. -Transferred to ICU once more on 08/11 Transferred back to the ICU on 08/11 -was on bipap and re-intubated on 08/11 -bronch also done on 08/11 with cultures obtained and currently growing ryan. Noted mucoid impaction in RLL. -was on propofol and fentanyl for sedation -extubated once more on 08/15, currently on RA Cognitive Impairment Schizophrenia Acute Agitation/Delirium Required 24 hour support previously, relies on assistance of two care givers [employer] On clozapine, cymbalta, gabapentin at home, all held Pt pulling at lines and more agitated on 08/09 -will re-start home clozapine, per recs needs to titrated up slowly if held for more than 48hrs due to risk of bradycardia, hypotension -pt's home dose of clozapine 50mg qAM, 300mg qPM -clozapine restart on 08/10 at 12.5mg qAM, titrate dose up to home dosing -> now on hold, psych consulted -will hold off on restarting sedating/other meds above (gabapentin, cymbalta) Delirium precautions. Head CT as per ICU,negative for any acute finding Pt was treated with precedex in the ICU and that was dc on 08/13. Psychiatry subsequently consulted -resuming clorazil at this time, slowly. Appreciate psych recs. Currently up to 50mg. -trial of Ativan 1mg on 08/23 -Head imaging pending until pt more stable to be in scanner/laying flat without concern for aspiration Neurology also consulted - last time seen by Dr. Cordova on 08/16 - EEG August 07 showed generalized slowing from encephalopathy but no epileptiform activity. -The patient also has a history of schizophrenia and is on Clozaril -Recommendations: 1. Now that she is extubated, increase activity as able, include physical, occupational, and speech therapy. 2. If the patient does not have a history of chronic left-sided weakness, consider MRI of the brain with and without contrast when more clinically stable. Fever Complicated UTI Pt with fever in early AM on 08/26 -UA suggestive of infection, urine Cx pending. Was started on Aztreonam, continue -c diff negative Anorexia Severe Malnutrition Adult failure to thrive Pt reportedly was not taking PO, not opening mouth NGT tube placed for nutritional needs (08/19) and started on feeds Has been receiving some meds orally, consider trial of po food intake -speech eval on 08/24 noted: pt a bit more sleepy -speech recommending permanent feeding option such as PEG -GI consult placed on 08/25 for possible PEG tube placement -consider PEG after workup and Rx of fever on 08/26 Consider PEG tube placement once more stable otherwise Severe constipation Stercoral Colitis CT Abd/pelvis showing significant stool burden on admission On lactulose, received enemas Reportedly pt had many BMs before General surgery consulted- appreciate recs -recommending to continue with bowel regimen, consider suppositories if pt unable to tolerate PO Currently resolved, cont. to closely monitor Bowel regimen resumed, on a scheduled basis with daily stool softener and lactulose BID dosing. Continue to monitor BM -last documented BM in chart from 08/19, 08/26 -KUB on 08/26 noting persistent large or severe amount of well-formed stool again seen throughout the colon and rectum. -reports of loose stool on 08/26, likely overflow constipation -BOWEL REGIMEN: lactulose 20mg BID + glycerin suppository daily + docusate/senna BID + miralax scheduled TID -GI recommending daily miralax through PEG once placed Septic shock-POA Pt was hypotensive on admission, requiring ICU admission Required pressor support which has since been discontinued. UA repeatedly without signs of infection, urine Cx with NGTD Chest XR with no signs of infection, biofire negative CT abd/pelvis with suggestion of stercoral colitis, bowel perforation less likely/ruled out Blood Cx x1 grew alpha strep, ?contaminant Was treated with Vanc/Zosyn. 08/10- pt with increased oxygen requirement, chest xray with noted possible pneumonia (also fluid overload), procal newly elevated. Pulmonology consulted- pt switched to meropenem for antibiotic coverage. Repeat Blood Cultures with NGTD. Pt completed abx treatment while hospitalized. Currently resolved. Oral ryan/ ? poss. ryan esophagitis Patient does not follow commands and does not open her mouth when asked. However she yawned several times, and there is a visible white plaque on her tongue. Nystatin ordered however difficult for nurses to actually apply nystatin as patient does not follow commands, does not open her mouth when asked. Started fluconazole. Cont. to monitor. FULL CODE STATUS On Aug 10, 2023, advised by CM that there is a yarsani contact who might be able to weigh in on code discussion given pt has no known family with whom she is in contact to assist with her decisions during critical times. Listed contact in the chart is a Caregiver from an agency and does not want to be responsible for making those decisions for the pt. Mr. Weston Archibald [phone] was contacted about 4:45PM as advised by Case Management. He states that his only contact with the patient was visiting on behalf of the yarsani. Would not describe himself as a friend. Notes that he was advised by someone in the medical field that this should likely go to the Ethics committee. States that he is concerned about what the law states in terms of being able to speak on her behalf. Does note in his conversations with the patient that she has always wanted to be well and "go home" (he makes the distinction not her heavenly home) so he would assume that she wants heroic measures done. States that he has been at [facility] in the past and has visited pts who have been here for months and states that he believes this is what June would want as well. Next steps currently pending. Appreciate CM assistance. GOC discussions to be continued, still full code. Hypothyroidism Levothyroxine resumed, continue Hypertension Held home antihypertensive while patient was on vasopressors BP currently trending back up Was on iv metoprolol, home po metoprolol resumed Home lisinopril was previously resumed Home amlodipine resumed as well. Continue to monitor HLD holding statin DMII Hold home metformin Recurrent UTI Continue home methenamine when able to take po Recurrent migraines Continue home riboflavin Chronic normocytic anemia Hgb baseline ~10, stable Monitor CBC Diet: currently on tube feeds DVT prophylaxis: Lovenox SQ Dispo: PT/OT ordered, pt has caregivers CODE STATUS: Pt's listed contact in chart was contacted on 08/09 to discuss code status. She states that she works with an agency and is pt's caregiver but is not equipped nor does she want the responsibility of making life/ decisions for pt. She states pt has no POA and is estranged from living family, a sister with whom she was in contact passed recently. CM aware. Admission and Anticipated Discharge Date Admission Date: August 06, 2023 Subjective Pt was seen laying in bed. Sleepy, awakens when name called. Still nonverbal. Review of Systems Review of Systems: Unobtainable due to cognitive status Physical Exam Physical Exam: General: laying in bed Psych: mood and affect could not be determined Neuro: drowsy HEENT: NC/AT, feeding tube in nares CV: RRR Resp:no increased effort of breathing Abdomen: soft Extremities:waffle boots lower extremities bilaterally. Results & Data Results & Data Vital Signs (Past 12 Hours) Vital Signs Temp Pulse Pulse Pulse Resp BP BP 08/27/23 11:13 36.9 C 69 18 150/72 H 08/27/23 08:00 75 08/27/23 06:55 37.1 C 75 18 134/68 08/27/23 03:03 36.9 C 79 18 137/73 08/27/23 00:00 60 Pulse Ox O2 Del Method 08/27/23 11:13 98 Room Air 08/27/23 08:00 08/27/23 06:55 99 Room Air 08/27/23 03:03 96 Room Air 08/27/23 00:00 (4) Aspiration pneumonia Laterality: bilateral
--- NOTE | 2023-08-27 17:39 | Psychiatric Progress Note ---
Date of Service August 27, 2023 Impression / Recommendations Impression As per initial consult: 72 yo female with remote hx of schizophrenia maintained on same dose of clozaril for what appears to be 20+ years. Unclear last psychotic symptoms and complicated by onset of dementia with intermittent AMS. Review of chart reveals gradual increase in falls, dizziness, and severe constipation. Unclear how much due to medical illness vs. possible clozaril toxicity given no change in dose with age, etc. Unclear if siallorhea at baseline and if that could contribute to aspiration risk. Given risks of orthostasis, alter seizure thresshold, paralytic ileus, PE, etc in patients on clozaril I feel the risks outweigh the immediate benefits of retitrating while still intubated. Continuing to present nonverbal---differential includes aphasia due to neurologic event, atypical catatonia, and/or severe abulia due to negative symptom of schizophrenia. Ativan challenge was not helpful. This may mean that her issue is less likely to be catatonia. We will slowly titrate the clozapine up, but we will not approach the high dose she was on before admission. It is extremely unlikely that this low dose of clozapine would be causing neuroleptic malignant syndrome (NMS) so it is very unlikely the temperature of 38.0 C is related in any way to the antipsychotic. Overall, I spent a total of 24 minutes with this case, including review of chart, coordination with nursing, coordination of care with hospitalist service, and documentation. (1) Schizophrenia: (2) Acute respiratory failure: (3) Aspiration pneumonia: (4) Constipation, chronic: (5) Encephalopathy acute: Plan Today we will increase clozapine to 50 mg. Given her medical issues and age, we we will continue to go very slowly. Suicide Risk Level Suicide Risk Level Comments: Low given that she is not moving much and not speaking at all. Interval History Identifying Information 72 yo female with a hx of schizophrenia, consult by hospitalist service for recs re: clozaril dosing. At the time of the initial consult she was intubated in the ICU. Chief Complaint Patient is nonverbal. Subjective Subjective Today I met with the patient, reviewed the chart, spoke with the nurse, and discussed the case with Dr. Khan. Patient is still nonverbal. Nurses report is very similar to yesterday, but some people feel that she might be a little sleepy year, possibly from the increase in clozapine. Still getting tube feedings. I noted the concerns of infection from the medical team including the urine and oral Hilaria. When I try to engage with the patient, she was asleep the first time I came by and I did not push her at that time. I came by later in the day and she opened her eyes when I called her name. However, she is still not speaking. She is not in any type of distress. I did not see her attending to any hallucinations or anything like that from what I could tell. Physical Exam Psychiatric The patient was alert and made good eye contact with me. She was clean in a hospital gown and had an NG tube. She did not speak. She did not appear to be attending to hallucinations. She did not seem distressed, alarmed, agitated, or paranoid. No abnormal movements were seen. Vital Signs (Past 24 Hours) Last Vital Signs Temp 37.5 C 08/27/23 16:00 Pulse 71 08/27/23 16:00 Resp 20 08/27/23 16:00 BP 148/71 H 08/27/23 16:00 Pulse Ox 98 08/27/23 16:00 O2 Del Method Room Air 08/27/23 16:00 O2 Flow Rate 35 08/13/23 20:00 FiO2 21 08/17/23 04:17 Results & Data ([facility]) Laboratory Results Laboratory Results - last 24 hr 08/26/23 08/27/23 08/27/23 17:42 00:02 06:40 WBC RBC Hgb Hct MCV MCH MCHC RDW Std Deviation RDW Coeff of Cyn Plt Count MPV Immature Gran % (Auto) Neut % (Auto) Lymph % (Auto) [place] % (Auto) Eos % (Auto) Baso % (Auto) Neut # (Auto) Lymph # (Auto) [place] # (Auto) Eos # (Auto) Baso # (Auto) Immature Gran # (Auto) Sodium Potassium Chloride Carbon Dioxide Anion Gap BUN Creatinine Est Cr Clr Drug Dosing Est GFR ( Amer) Est GFR (Non-Af Amer) BUN/Creatinine Ratio Glucose POC Glucose 185 H 175 H 190 H Calcium Phosphorus Magnesium Total Bilirubin AST ALT Alkaline Phosphatase Total Protein Albumin Globulin Albumin/Globulin Ratio 08/27/23 08/27/23 07:50 11:21 WBC 4.46 L RBC 3.23 L Hgb 9.2 L Hct 28.9 L MCV 89.5 MCH 28.5 MCHC 31.8 L RDW Std Deviation 55.3 H RDW Coeff of Cyn 17.0 H Plt Count 243 MPV 11.0 Immature Gran % (Auto) 0.2 Neut % (Auto) 61.5 Lymph % (Auto) 24.4 [place] % (Auto) 13.0 Eos % (Auto) 0.2 Baso % (Auto) 0.7 Neut # (Auto) 2.74 Lymph # (Auto) 1.09 L [place] # (Auto) 0.58 Eos # (Auto) 0.01 Baso # (Auto) 0.03 Immature Gran # (Auto) 0.01 Sodium 140 Potassium 4.0 Chloride 107 Carbon Dioxide 28 Anion Gap 5 BUN 23 Creatinine 0.36 L Est Cr Clr Drug Dosing 110.1 Est GFR ( Amer) 124.0 Est GFR (Non-Af Amer) 107.0 BUN/Creatinine Ratio 63.9 H Glucose 178 H POC Glucose 205 H Calcium 8.4 L Phosphorus 3.7 Magnesium 1.9 Total Bilirubin 0.3 AST 12 L ALT 9 Alkaline Phosphatase 65 Total Protein 5.2 L Albumin 2.9 L Globulin 2.3 L Albumin/Globulin Ratio 1.3 Current Inpatient Medications Current Inpatient Medications: Current Inpatient Medications Amlodipine Besylate (Amlodipine Besylate 5 Mg Tab) 5 mg PO DAILY JAMEL Stop: 09/22/23 08:59 Last Admin: 08/27/23 09:48 Dose: 5 mg Clozapine (Clozapine 25 Mg Tab) 37.5 mg PO HS JAMEL; Protocol Stop: 09/25/23 20:59 Last Admin: 08/26/23 23:39 Dose: 37.5 mg Dextrose (Dextrose 50% 50 Ml Syringe) 25 - 50 ml IV UD PRN; Protocol PRN Reason: Hypoglycemia Protocol Stop: 09/05/23 21:53 Enoxaparin Sodium (Enoxaparin Inj 40 Mg/0.4 Ml Syr) 40 mg SQ Q24H JAMEL Stop: 09/11/23 13:59 Last Admin: 08/27/23 12:59 Dose: 40 mg Enteral Nutritional Formula (Fibersource Hn 1.2 German 1000 Ml Bag) 1,000 ml NG .See Protocol JAMEL; Protocol Stop: 09/18/23 11:29 Last Admin: 08/27/23 09:47 Dose: 1,000 ml Fluconazole (Fluconazole Susp 100 Mg/2.5 Ml Udp) 100 mg PO QAM JAMEL Stop: 08/31/23 08:59 Last Admin: 08/27/23 09:49 Dose: 100 mg Fluticasone Propionate (Fluticasone Propionate Na Spr 16 Gm Btl) 2 sprays NA DAILY JAMEL Stop: 09/09/23 08:59 Last Admin: 08/27/23 09:49 Dose: 2 sprays Glucagon (Glucagon For Inj 1 Mg Vial) 1 mg SQ UD PRN; Protocol PRN Reason: Hypoglycemia Protocol Stop: 09/05/23 21:53 Glucose (Glucose 40% Gel 15 Gm Tube) 15 - 30 gm PO UD PRN; Protocol PRN Reason: Hypoglycemia Protocol Stop: 09/05/23 21:53 Glucose (Glucose 10 Tab/Tube) 4 - 8 tab PO UD PRN; Protocol PRN Reason: Hypoglycemia Treatment Stop: 09/05/23 21:53 Glycerin (Glycerin Adult 12 Supp/Box Supp) 1 supp NM DAILY JAMEL Stop: 09/24/23 08:59 Last Admin: 08/27/23 09:51 Dose: 1 supp Thiamine HCl 100 mg/ Syringe 10 mls @ 2 mls/min IV DAILY JAMEL Stop: 09/11/23 08:59 Last Admin: 08/27/23 09:51 Dose: 2 mls/min Pantoprazole Sodium 40 mg/ (Syringe) 10 mls @ 5 mls/min IV DAILY JAMEL Stop: 09/11/23 09:59 Last Admin: 08/27/23 09:48 Dose: 5 mls/min Levothyroxine Sodium 37.5 mcg/ (Syringe) 1.875 mls @ 2 mls/min IV Q72H JAMEL Stop: 09/14/23 08:59 Last Admin: 08/27/23 09:49 Dose: 2 mls/min Dextrose/Sodium Chloride (D5w And Nss) 1,000 mls @ 75 mls/hr IV .[id number] JAMEL Stop: 09/16/23 21:14 Last Infusion: 08/18/23 12:26 Dose: Infused Acetaminophen (Ofirmev) 1,000 mg in 100 mls @ 400 mls/hr IV Q8H PRN PRN Reason: pain/fever Stop: 08/29/23 04:29 Last Infusion: 08/26/23 05:14 Dose: Infused Aztreonam 2,000 mg/ Dextrose 100 mls @ 100 mls/hr IV Q8H [facility] Stop: 09/05/23 07:29 Last Infusion: 08/27/23 17:10 Dose: Infused Insulin Aspart (Insulin Aspart Per Unit Charge) 0 units SC Q6 [facility] Stop: 09/18/23 11:59 Last Admin: 08/27/23 11:52 Dose: 2 units Lactulose (Lactulose Syrup 20 Gm/30 Ml Udc) 20 gm PO BID [facility] Stop: 09/06/23 09:44 Last Admin: 08/27/23 09:50 Dose: 20 gm Lisinopril (Lisinopril 20 Mg Tab) 20 mg PO QAM [facility] Stop: 09/19/23 15:59 Last Admin: 08/27/23 09:50 Dose: 20 mg Metoprolol Succinate (Metoprolol Succ 50mg Ext Rel Tab) 50 mg PO QAM [facility] Stop: 09/22/23 08:59 Last Admin: 08/27/23 09:50 Dose: 50 mg Miscellaneous (Carbohydrates For Hypoglycemia ) 15 - 30 gm PO UD PRN PRN Reason: Hypoglycemia Protocol Stop: 09/05/23 21:53 Nystatin (Nystatin Susp 500,000 U/5 Ml Udc) 10 ml PO TID [facility] Stop: 08/28/23 20:59 Last Admin: 08/27/23 12:59 Dose: 10 ml Polyethylene Glycol (Polyethylene (Miralax) 17 Gm Pack) 17 gm PO TID [facility] Stop: 09/25/23 19:29 Last Admin: 08/27/23 13:00 Dose: 17 gm Senna/Docusate Sodium (Docusate Sodium/Senna 50/8.6mg Tab) 1 tab PO BID [facility] Stop: 09/24/23 08:59 Last Admin: 08/27/23 09:49 Dose: 1 tab Sterile Water (Tube Feeding Water Flush) 30 ml NG Q4H [facility] Stop: 09/18/23 11:29 Last Admin: 08/27/23 15:59 Dose: 30 ml (3) Aspiration pneumonia Laterality: bilateral
[2023-08-27] MEDS: cloZAPine 25 MG TAB PO SCH (21:41)
[2023-08-28 07:49] LABS: Basophils # (auto) 0.04 K/uL (0.00-0.20); Basophils % (auto) 1.1 %; Eosinophils # (auto) 0.01 K/uL (0.00-0.50); Eosinophils % (auto) 0.3 %; Hematocrit (blood only) 30.9 % (37.0-47.0); Hemoglobin 9.8 g/dl (12.0-16.0); Immature Granulocytes # (auto) 0.02 K/uL (0.01-0.20); Immature Granulocytes % (auto) 0.5 %; Lymphocytes # (auto) 1.06 K/uL (1.20-3.40); Lymphocytes % (auto) 28.5 %; Mean Corpuscular Hemoglobin 28.2 pg (25.0-34.0); Mean Corpuscular Hgb Conc 31.7 g/dL (32.0-36.0); Mean Platelet Volume 11.5 fL (9.4-12.4); Monocytes % (auto) 16.1 %; Neutrophils # (auto) 1.99 K/uL (1.40-6.50); Neutrophils % (auto) 53.5 %; Platelet Count 227 K/uL (130-400); RDW Coefficient of Variation 17.1 % (11.5-14.5); RDW Standard Deviation 55.1 fL (36.4-46.3); Red Blood Count 3.47 M/uL (4.20-5.40); White Blood Count 3.72 K/ul (4.8-10.8)
[2023-08-28 08:08] LABS: Albumin Globulin Ratio 1.3 (0.9-2); BUN Creatinine Ratio 69.7 (10-20); Bilirubin,Total 0.3 mg/dl (0.2-1.0); Calcium 8.6 mg/dl (8.6-10.3); Creatinine Clr Calc Pharmacy 120.1 ml/min; Est GFR (African American) 127.6 ml/min; Est GFR (Non-African American) 110.1 ml/min; Globulin 2.4 gm/dl (2.5-4.0); Magnesium 1.9 mg/dl (1.7-2.4); Phosphorus 3.7 mg/dl (2.5-4.9); Potassium 4.1 mmol/L (3.5-5.1); Total Protein 5.4 gm/dl (6.0-8.3)
[2023-08-28] MEDS: ERTAPENEM SODIUM 1,000 MG in SYRINGE 0 ML IV SCH (12:14)
--- NOTE | 2023-08-28 12:31 | Hospitalist Progress Note ---
Date of Service August 28, 2023 Assessment & Plan (1) Stercoral colitis: (2) Constipation, chronic: (3) Full code status: (4) Aspiration pneumonia: (5) On mechanically assisted ventilation: (6) Acute respiratory failure: Plan Pt is a 72yoF with PMHx significant for HTN, HLD, DMII, hypothyroidism, Hx of brain tumor s/p partial resection, schizophrenia, prior migraine, chronic anemia, recurrent UTIs, urinary incontinence and urinary bladder diverticulum presented after being found down and minimally responsive at home. Patient was admitted to the ICU for management and evaluation of septic shock. Was downgraded and re-intubated in the ICU on 08/11. Acute respiratory failure requiring mechanical ventilation On admission, was secondary to severe sepsis above, requiring intubation Vent management per ICU, pt extubated on 08/08 On Aug 09- pt developed acute respiratory failure once more - Pt with increasing oxygen requirement. - Chest xray with bilateral opacities, pneumonia (?possible aspiration), procalcitonin elevated >34. -Was on hi emy oxygen, pt in restraints. -Pulmonology previously consulted- appreciate recs. -Diuresing with IV Lasix. -Transferred to ICU once more on 08/11 Transferred back to the ICU on 08/11 -was on bipap and re-intubated on 08/11 -bronch also done on 08/11 with cultures obtained and currently growing ryan. Noted mucoid impaction in RLL. -was on propofol and fentanyl for sedation -extubated once more on 08/15, currently on RA Cognitive Impairment Schizophrenia Acute Agitation/Delirium Required 24 hour support previously, relies on assistance of two care givers [employer] On clozapine, cymbalta, gabapentin at home, all held Pt pulling at lines and more agitated on 08/09 -will re-start home clozapine, per recs needs to titrated up slowly if held for more than 48hrs due to risk of bradycardia, hypotension -pt's home dose of clozapine 50mg qAM, 300mg qPM -clozapine restart on 08/10 at 12.5mg qAM, titrate dose up to home dosing -> now on hold, psych consulted -will hold off on restarting sedating/other meds above (gabapentin, cymbalta) Delirium precautions. Head CT as per ICU,negative for any acute findings Pt was treated with precedex in the ICU and that was dc on 08/13. Psychiatry subsequently consulted -resuming clorazil at this time, slowly. Currently at 50mg, appreciate psych recs. -trial of Ativan 1mg on 08/23 -Head imaging pending until pt more stable to be in scanner/laying flat without concern for aspiration Neurology also consulted - last time seen by Dr. Cordova on 08/16 - EEG August 07 showed generalized slowing from encephalopathy but no epileptiform activity. -The patient also has a history of schizophrenia and is on Clozaril -Recommendations: 1. Now that she is extubated, increase activity as able, include physical, occupational, and speech therapy. 2. If the patient does not have a history of chronic left-sided weakness, consider MRI of the brain with and without contrast when more clinically stable. Fever Complicated UTI Pt with fever in early AM on 08/26 -UA suggestive of infection, urine Cx growing 2 types of ESBL. Was started on Aztreonam, switched to Ertapenem on 08/28 (Day #1) -c diff negative with overflox diarrhea noted on 08/26 -ID consult for urine cx results, days of rx placed-appreciate recs Pt currently afebrile Anorexia Severe Malnutrition Adult failure to thrive Pt reportedly was not taking PO, not opening mouth NGT tube placed for nutritional needs (08/19) and started on feeds Has been receiving some meds orally, consider trial of po food intake -speech eval on 08/24 noted: pt a bit more sleepy -speech recommending permanent feeding option such as PEG -GI consult placed on 08/25 for possible PEG tube placement -consider PEG after workup and Rx of fever on 08/26 Consider PEG tube placement once more stable otherwise Severe constipation Stercoral Colitis CT Abd/pelvis showing significant stool burden on admission On lactulose, received enemas Reportedly pt had many BMs before General surgery consulted- appreciate recs -recommending to continue with bowel regimen, consider suppositories if pt unable to tolerate PO Currently resolved, cont. to closely monitor Bowel regimen resumed, on a scheduled basis with daily stool softener and lactulose BID dosing. Continue to monitor BM -last documented BM in chart from 08/19, 08/26(diaper) -KUB on 08/26 noting persistent large or severe amount of well-formed stool again seen throughout the colon and rectum. -reports of loose stool on 08/26, likely overflow constipation -BOWEL REGIMEN: lactulose 20mg BID + glycerin suppository daily + docusate/senna BID + miralax scheduled TID -GI recommending daily miralax through PEG once placed Septic shock-POA Pt was hypotensive on admission, requiring ICU admission Required pressor support which has since been discontinued. UA repeatedly without signs of infection, urine Cx with NGTD Chest XR with no signs of infection, biofire negative CT abd/pelvis with suggestion of stercoral colitis, bowel perforation less likely/ruled out Blood Cx x1 grew alpha strep, ?contaminant Was treated with Vanc/Zosyn. 08/10- pt with increased oxygen requirement, chest xray with noted possible pneumonia (also fluid overload), procal newly elevated. Pulmonology consulted- pt switched to meropenem for antibiotic coverage. Repeat Blood Cultures with NGTD. Pt completed abx treatment while hospitalized. Currently resolved. Oral ryan/ ? poss. ryan esophagitis Patient does not follow commands and does not open her mouth when asked. However she yawned several times, and there is a visible white plaque on her tongue. Nystatin ordered however difficult for nurses to actually apply nystatin as patient does not follow commands, does not open her mouth when asked. Started fluconazole. Cont. to monitor. FULL CODE STATUS On Aug 10, 2023, advised by CM that there is a mosque contact who might be able to weigh in on code discussion given pt has no known family with whom she is in contact to assist with her decisions during critical times. Listed contact in the chart is a Caregiver from an agency and does not want to be responsible for making those decisions for the pt. Mr. Weston Archibald [phone] was contacted about 4:45PM as advised by Case Management. He states that his only contact with the patient was visiting on behalf of the mosque. Would not describe himself as a friend. Notes that he was advised by someone in the medical field that this should likely go to the Ethics committee. States that he is concerned about what the law states in terms of being able to speak on her behalf. Does note in his conversations with the patient that she has always wanted to be well and "go home" (he makes the d istinction not her heavenly home) so he would assume that she wants heroic measures done. States that he has been at [facility] in the past and has visited pts who have been here for months and states that he believes this is what June would want as well. Next steps currently pending. Appreciate CM assistance. GOC discussions to be continued, still full code. Hypothyroidism Levothyroxine resumed, continue Hypertension Held home antihypertensive while patient was on vasopressors BP currently trending back up Was on iv metoprolol, home po metoprolol resumed Home lisinopril was previously resumed Home amlodipine resumed as well. Continue to monitor HLD holding statin DMII Hold home metformin Recurrent UTI Continue home methenamine when able to take po Recurrent migraines Continue home riboflavin Chronic normocytic anemia Hgb baseline ~10, stable Monitor CBC Diet: currently on tube feeds DVT prophylaxis: Lovenox SQ Dispo: PT/OT ordered, pt has caregivers CODE STATUS: Pt's listed contact in chart was contacted on 08/09 to discuss code status. She states that she works with an agency and is pt's caregiver but is not equipped nor does she want the responsibility of making life/ decisions for pt. She states pt has no POA and is estranged from living family, a sister with whom she was in contact passed recently. CM aware. Admission and Anticipated Discharge Date Admission Date: August 06, 2023 Subjective Pt was seen laying in bed. Sleepy, awakens when name called. Still nonverbal. Review of Systems Review of Systems: All systems reviewed & are unremarkable except as noted in Subjective Physical Exam Physical Exam: General: laying in bed Psych: mood and affect could not be determined Neuro: drowsy HEENT: NC/AT, feeding tube in nares CV: RRR Resp:no increased effort of breathing Abdomen: soft Extremities:waffle boots lower extremities bilaterally. Results & Data Results & Data Vital Signs (Past 12 Hours) Vital Signs Temp Pulse Resp BP BP Pulse Ox O2 Del Method 08/28/23 10:50 36.7 C 66 15 138/91 100 Room Air 08/28/23 07:24 36.4 C L 68 15 132/70 95 Room Air 08/28/23 03:02 37.0 C 69 18 121/73 97 Room Air (4) Aspiration pneumonia Laterality: bilateral
--- NOTE | 2023-08-28 17:07 | Psychiatric Progress Note ---
Date of Service August 28, 2023 Impression / Recommendations Impression As per initial consult: 72 yo female with remote hx of schizophrenia maintained on same dose of clozaril for what appears to be 20+ years. Unclear last psychotic symptoms and complicated by onset of dementia with intermittent AMS. Review of chart reveals gradual increase in falls, dizziness, and severe constipation. Unclear how much due to medical illness vs. possible clozaril toxicity given no change in dose with age, etc. Unclear if siallorhea at baseline and if that could contribute to aspiration risk. Given risks of orthostasis, alter seizure thresshold, paralytic ileus, PE, etc in patients on clozaril I feel the risks outweigh the immediate benefits of retitrating while still intubated. Continuing to present nonverbal---differential includes aphasia due to neurologic event, atypical catatonia, and/or severe abulia due to negative symptom of schizophrenia. Ativan challenge was not helpful. This may mean that her issue is less likely to be catatonia. We will slowly titrate the clozapine up, but we will not approach the high dose she was on before admission. It is extremely unlikely that this low dose of clozapine would be causing neuroleptic malignant syndrome (NMS) so it is very unlikely the temperature of 38.0 C is related in any way to the antipsychotic. Overall, I spent a total of 24 minutes with this case, including review of chart, coordination with nursing, coordination of care with hospitalist service, and documentation. : Today is the second day that we are seeing some sedations. Otherwise, she seems about the same as she has every day that I have seen her this week. (1) Schizophrenia: (2) Acute respiratory failure: (3) Aspiration pneumonia: (4) Constipation, chronic: (5) Encephalopathy acute: Plan Today we will increase clozapine to 50 mg. Given her medical issues and age, we we will continue to go very slowly. 08/28/23: I am not going to change the clozapine for the next day or 2 at least. We will continue to follow her and make sure were not causing problems with her medication. I am not seeing any evidence that she is acutely psychotic currently but we will continue to watch this closely. Today I spent about 18 minutes on the case. This included meeting with the patient, discussing the case with the nursing home assistant administrator, discussing the case with the attending, discussing the case with the mental health liaison nurse, and documentation. Suicide Risk Level Suicide Risk Level Comments: Low given that she is not moving much and not speaking at all. Interval History Identifying Information 72 yo female with a hx of schizophrenia, consult by hospitalist service for recs re: clozaril dosing. At the time of the initial consult she was intubated in the ICU. Chief Complaint Patient is nonverbal. Subjective Subjective Today I met with the patient, reviewed the chart, and discussed the case with Dr. Khan. Patient is still nonverbal. She is somewhat sedated but not worse than yesterday. I discussed the case with the nursing home assistant administrator who is working with this lady today and there was nothing important that they had noticed or anything that they are concerned about right now. Physical Exam Psychiatric The patient was alert and made good eye contact with me. She was clean in a hospital gown and had an NG tube. It is obvious that she is getting cared for with her hygiene. She did not speak. She did not appear to be attending to hallucinations. She did not seem distressed, alarmed, agitated, or paranoid. No abnormal movements were seen. Vital Signs (Past 24 Hours) Last Vital Signs Temp 37.5 C 08/28/23 15:36 Pulse 66 08/28/23 15:36 Resp 17 08/28/23 15:36 BP 123/81 08/28/23 15:36 Pulse Ox 99 08/28/23 15:36 O2 Del Method Room Air 08/28/23 15:36 O2 Flow Rate 35 08/13/23 20:00 FiO2 21 08/17/23 04:17 Results & Data ([facility]) Laboratory Results Laboratory Results - last 24 hr 08/27/23 08/28/23 08/28/23 17:58 00:10 05:43 WBC RBC Hgb Hct MCV MCH MCHC RDW Std Deviation RDW Coeff of Cyn Plt Count MPV Immature Gran % (Auto) Neut % (Auto) Lymph % (Auto) [place] % (Auto) Eos % (Auto) Baso % (Auto) Neut # (Auto) Lymph # (Auto) [place] # (Auto) Eos # (Auto) Baso # (Auto) Immature Gran # (Auto) Sodium Potassium Chloride Carbon Dioxide Anion Gap BUN Creatinine Est Cr Clr Drug Dosing Est GFR ( Amer) Est GFR (Non-Af Amer) BUN/Creatinine Ratio Glucose POC Glucose 187 H 178 H 162 H Calcium Phosphorus Magnesium Total Bilirubin AST ALT Alkaline Phosphatase Total Protein Albumin Globulin Albumin/Globulin Ratio 08/28/23 08/28/23 07:18 12:03 WBC 3.72 L RBC 3.47 L Hgb 9.8 L Hct 30.9 L MCV 89.0 MCH 28.2 MCHC 31.7 L RDW Std Deviation 55.1 H RDW Coeff of Cyn 17.1 H Plt Count 227 MPV 11.5 Immature Gran % (Auto) 0.5 Neut % (Auto) 53.5 Lymph % (Auto) 28.5 [place] % (Auto) 16.1 Eos % (Auto) 0.3 Baso % (Auto) 1.1 Neut # (Auto) 1.99 Lymph # (Auto) 1.06 L [place] # (Auto) 0.60 H Eos # (Auto) 0.01 Baso # (Auto) 0.04 Immature Gran # (Auto) 0.02 Sodium 138 Potassium 4.1 Chloride 105 Carbon Dioxide 29 Anion Gap 4 BUN 23 Creatinine 0.33 L Est Cr Clr Drug Dosing 120.1 Est GFR ( Amer) 127.6 Est GFR (Non-Af Amer) 110.1 BUN/Creatinine Ratio 69.7 H Glucose 161 H POC Glucose 205 H Calcium 8.6 Phosphorus 3.7 Magnesium 1.9 Total Bilirubin 0.3 AST 14 ALT 11 Alkaline Phosphatase 68 Total Protein 5.4 L Albumin 3.0 L Globulin 2.4 L Albumin/Globulin Ratio 1.3 Current Inpatient Medications Current Inpatient Medications: Current Inpatient Medications Amlodipine Besylate (Amlodipine Besylate 5 Mg Tab) 5 mg PO DAILY JAMEL Stop: 09/22/23 08:59 Last Admin: 08/28/23 09:23 Dose: 5 mg Clozapine (Clozapine 25 Mg Tab) 50 mg PO HS JAMEL; Protocol Stop: 09/26/23 20:59 Last Admin: 08/27/23 21:41 Dose: 50 mg Dextrose (Dextrose 50% 50 Ml Syringe) 25 - 50 ml IV UD PRN; Protocol PRN Reason: Hypoglycemia Protocol Stop: 09/05/23 21:53 Enoxaparin Sodium (Enoxaparin Inj 40 Mg/0.4 Ml Syr) 40 mg SQ Q24H JAMEL Stop: 09/11/23 13:59 Last Admin: 08/28/23 14:25 Dose: 40 mg Enteral Nutritional Formula (Fibersource Hn 1.2 German 1000 Ml Bag) 1,000 ml NG .See Protocol JAMEL; Protocol Stop: 09/18/23 11:29 Last Admin: 08/28/23 04:49 Dose: 1,000 ml Fluconazole (Fluconazole Susp 100 Mg/2.5 Ml Udp) 100 mg PO QAM JAMEL Stop: 08/31/23 08:59 Last Admin: 08/28/23 09:24 Dose: 100 mg Fluticasone Propionate (Fluticasone Propionate Na Spr 16 Gm Btl) 2 sprays NA DAILY JAMEL Stop: 09/09/23 08:59 Last Admin: 08/28/23 09:23 Dose: 2 sprays Glucagon (Glucagon For Inj 1 Mg Vial) 1 mg SQ UD PRN; Protocol PRN Reason: Hypoglycemia Protocol Stop: 09/05/23 21:53 Glucose (Glucose 40% Gel 15 Gm Tube) 15 - 30 gm PO UD PRN; Protocol PRN Reason: Hypoglycemia Protocol Stop: 09/05/23 21:53 Glucose (Glucose 10 Tab/Tube) 4 - 8 tab PO UD PRN; Protocol PRN Reason: Hypoglycemia Treatment Stop: 09/05/23 21:53 Glycerin (Glycerin Adult 12 Supp/Box Supp) 1 supp ME DAILY JAMEL Stop: 09/24/23 08:59 Last Admin: 08/28/23 09:31 Dose: 1 supp Thiamine HCl 100 mg/ Syringe 10 mls @ 2 mls/min IV DAILY JAMEL Stop: 09/11/23 08:59 Last Admin: 08/28/23 09:22 Dose: 2 mls/min Pantoprazole Sodium 40 mg/ (Syringe) 10 mls @ 5 mls/min IV DAILY JAMEL Stop: 09/11/23 09:59 Last Admin: 08/28/23 09:22 Dose: 5 mls/min Levothyroxine Sodium 37.5 mcg/ (Syringe) 1.875 mls @ 2 mls/min IV Q72H JAMEL Stop: 09/14/23 08:59 Last Admin: 08/27/23 09:49 Dose: 2 mls/min Dextrose/Sodium Chloride (D5w And Nss) 1,000 mls @ 75 mls/hr IV .[id number] JAMEL Stop: 09/16/23 21:14 Last Infusion: 08/18/23 12:26 Dose: Infused Acetaminophen (Ofirmev) 1,000 mg in 100 mls @ 400 mls/hr IV Q8H PRN PRN Reason: pain/fever Stop: 08/29/23 04:29 Last Infusion: 08/28/23 00:53 Dose: Infused Ertapenem 1,000 mg/ Syringe 10 mls @ 2 mls/min IV DAILY JAMEL Stop: 09/07/23 11:29 Last Admin: 08/28/23 12:14 Dose: 2 mls/min Insulin Aspart (Insulin Aspart Per Unit Charge) 0 units SC Q6 JAMEL Stop: 09/18/23 11:59 Last Admin: 08/28/23 12:15 Dose: 2 units Lactulose (Lactulose Syrup 20 Gm/30 Ml Udc) 20 gm PO BID [facility] Stop: 09/06/23 09:44 Last Admin: 08/28/23 09:23 Dose: 20 gm Lisinopril (Lisinopril 20 Mg Tab) 20 mg PO QAM [facility] Stop: 09/19/23 15:59 Last Admin: 08/28/23 09:22 Dose: 20 mg Metoprolol Succinate (Metoprolol Succ 50mg Ext Rel Tab) 50 mg PO QAM [facility] Stop: 09/22/23 08:59 Last Admin: 08/28/23 09:24 Dose: 50 mg Miscellaneous (Carbohydrates For Hypoglycemia ) 15 - 30 gm PO UD PRN PRN Reason: Hypoglycemia Protocol Stop: 09/05/23 21:53 Nystatin (Nystatin Susp 500,000 U/5 Ml Udc) 10 ml PO TID [facility] Stop: 08/28/23 20:59 Last Admin: 08/28/23 14:26 Dose: 10 ml Polyethylene Glycol (Polyethylene (Miralax) 17 Gm Pack) 17 gm PO TID [facility] Stop: 09/25/23 19:29 Last Admin: 08/28/23 14:26 Dose: 17 gm Senna/Docusate Sodium (Docusate Sodium/Senna 50/8.6mg Tab) 1 tab PO BID [facility] Stop: 09/24/23 08:59 Last Admin: 08/28/23 09:22 Dose: 1 tab Sterile Water (Tube Feeding Water Flush) 30 ml NG Q4H [facility] Stop: 09/18/23 11:29 Last Admin: 08/28/23 15:25 Dose: 30 ml (3) Aspiration pneumonia Laterality: bilateral
[2023-08-29 07:38] LABS: Hematocrit (blood only) 28.9 % (37.0-47.0); Hemoglobin 9.2 g/dl (12.0-16.0); Mean Corpuscular Hemoglobin 28.7 pg (25.0-34.0); Mean Corpuscular Hgb Conc 31.8 g/dL (32.0-36.0); Mean Platelet Volume 11.9 fL (9.4-12.4); Platelet Count 219 K/uL (130-400); RDW Coefficient of Variation 16.8 % (11.5-14.5); RDW Standard Deviation 54.7 fL (36.4-46.3); Red Blood Count 3.21 M/uL (4.20-5.40)
[2023-08-29 07:56] LABS: BUN Creatinine Ratio 63.3 (10-20); Calcium 8.4 mg/dl (8.6-10.3); Creatinine Clr Calc Pharmacy 132.1 ml/min; Est GFR (African American) 131.7 ml/min; Est GFR (Non-African American) 113.6 ml/min; Magnesium 1.9 mg/dl (1.7-2.4); Phosphorus 3.7 mg/dl (2.5-4.9); Potassium 4.2 mmol/L (3.5-5.1)
--- NOTE | 2023-08-29 09:32 | Hospitalist Progress Note ---
Date of Service August 29, 2023 Assessment & Plan (1) Stercoral colitis: (2) Constipation, chronic: (3) Full code status: (4) Aspiration pneumonia: (5) On mechanically assisted ventilation: (6) Acute respiratory failure: Plan Pt is a 72yoF with PMHx significant for HTN, HLD, DMII, hypothyroidism, Hx of brain tumor s/p partial resection, schizophrenia, prior migraine, chronic anemia, recurrent UTIs, urinary incontinence and urinary bladder diverticulum presented after being found down and minimally responsive at home. Patient was admitted to the ICU for management and evaluation of septic shock. Was downgraded and re-intubated in the ICU on 08/11. Acute respiratory failure requiring mechanical ventilation On admission, was secondary to severe sepsis above, requiring intubation Vent management per ICU, pt extubated on 08/08 On Aug 09- pt developed acute respiratory failure once more - Pt with increasing oxygen requirement. - Chest xray with bilateral opacities, pneumonia (?possible aspiration), procalcitonin elevated >34. -Was on hi emy oxygen, pt in restraints. -Pulmonology previously consulted- appreciate recs. -Diuresing with IV Lasix. -Transferred to ICU once more on 08/11 Transferred back to the ICU on 08/11 -was on bipap and re-intubated on 08/11 -bronch also done on 08/11 with cultures obtained and currently growing ryan. Noted mucoid impaction in RLL. -was on propofol and fentanyl for sedation -extubated once more on 08/15, currently on RA Cognitive Impairment Schizophrenia Acute Agitation/Delirium Required 24 hour support previously, relies on assistance of two care givers [employer] On clozapine, cymbalta, gabapentin at home, all held Pt pulling at lines and more agitated on 08/09 -will re-start home clozapine, per recs needs to titrated up slowly if held for more than 48hrs due to risk of bradycardia, hypotension -pt's home dose of clozapine 50mg qAM, 300mg qPM -clozapine restart on 08/10 at 12.5mg qAM, titrate dose up to home dosing -> now on hold, psych consulted -will hold off on restarting sedating/other meds above (gabapentin, cymbalta) Delirium precautions. Head CT as per ICU,negative for any acute findings Pt was treated with precedex in the ICU and that was dc on 08/13. Psychiatry subsequently consulted -resuming clorazil at this time, slowly. Currently at 50mg -> 62.5 mg, appreciate psych recs. -trial of Ativan 1mg on 08/23 -Head imaging pending until pt more stable to be in scanner/laying flat without concern for aspiration Neurology also consulted - last time seen by Dr. Cordova on 08/16 - EEG August 07 showed generalized slowing from encephalopathy but no epileptiform activity. -The patient also has a history of schizophrenia and is on Clozaril -Recommendations: 1. Now that she is extubated, increase activity as able, include physical, occupational, and speech therapy. 2. If the patient does not have a history of chronic left-sided weakness, consider MRI of the brain with and without contrast when more clinically stable. Fever Complicated UTI Pt with fever in early AM on 08/26 -UA suggestive of infection, urine Cx growing ESBL E.coli . Was started on Aztreonam, switched to Ertapenem on 08/28 (Day #2) -c diff negative with overflow diarrhea noted on 08/26 -ID consult for urine cx results, days of rx placed-appreciate recs Pt currently afebrile Anorexia Severe Malnutrition Adult failure to thrive Pt reportedly was not taking PO, not opening mouth NGT tube placed for nutritional needs (08/19) and started on feeds Has been receiving some meds orally, consider trial of po food intake -speech eval on 08/24 noted: pt a bit more sleepy -speech recommending permanent feeding option such as PEG -GI consult placed on 08/25 for possible PEG tube placement -consider PEG after workup and Rx of fever on 08/26 Consider PEG tube placement once more stable otherwise Severe constipation Stercoral Colitis CT Abd/pelvis showing significant stool burden on admission On lactulose, received enemas Reportedly pt had many BMs before General surgery consulted- appreciate recs -recommending to continue with bowel regimen, consider suppositories if pt unable to tolerate PO Currently resolved, cont. to closely monitor Bowel regimen resumed, on a scheduled basis with daily stool softener and lactulose BID dosing. Continue to monitor BM -last documented BM in chart from 08/19, 08/26(diaper) -KUB on 08/26 noting persistent large or severe amount of well-formed stool again seen throughout the colon and rectum. -reports of loose stool on 08/26, likely overflow constipation -BOWEL REGIMEN: lactulose 20mg BID + glycerin suppository daily + docusate/senna BID + miralax scheduled TID -GI recommending daily miralax through PEG once placed Septic shock-POA Pt was hypotensive on admission, requiring ICU admission Required pressor support which has since been discontinued. UA repeatedly without signs of infection, urine Cx with NGTD Chest XR with no signs of infection, biofire negative CT abd/pelvis with suggestion of stercoral colitis, bowel perforation less likely/ruled out Blood Cx x1 grew alpha strep, ?contaminant Was treated with Vanc/Zosyn. 08/10- pt with increased oxygen requirement, chest xray with noted possible pneumonia (also fluid overload), procal newly elevated. Pulmonology consulted- pt switched to meropenem for antibiotic coverage. Repeat Blood Cultures with NGTD. Pt completed abx treatment while hospitalized. Currently resolved. Oral ryan/ ? poss. ryan esophagitis Patient does not follow commands and does not open her mouth when asked. H owever she yawned several times, and there is a visible white plaque on her tongue. Nystatin ordered however difficult for nurses to actually apply nystatin as patient does not follow commands, does not open her mouth when asked. Started fluconazole. Cont. to monitor. FULL CODE STATUS On Aug 10, 2023, advised by CM that there is a [employer] contact who might be able to weigh in on code discussion given pt has no known family with whom she is in contact to assist with her decisions during critical times. Listed contact in the chart is a Caregiver from an agency and does not want to be responsible for making those decisions for the pt. Mr. Weston Archibald [phone] was contacted about 4:45PM as advised by Case Management. He states that his only contact with the patient was visiting on behalf of the [employer]. Would not describe himself as a friend. Notes that he was advised by someone in the medical field that this should likely go to the Ethics committee. States that he is concerned about what the law states in terms of being able to speak on her behalf. Does note in his conversations with the patient that she has always wanted to be well and "go home" (he makes the distinction not her heavenly home) so he would assume that she wants heroic measures done. States that he has been at [facility] in the past and has visited pts who have been here for months and states that he believes this is what June would want as well. Next steps currently pending. Appreciate CM assistance. GOC discussions to be continued, still full code. Hypothyroidism Levothyroxine resumed, continue Hypertension Held home antihypertensive while patient was on vasopressors BP currently trending back up Was on iv metoprolol, home po metoprolol resumed Home lisinopril was previously resumed Home amlodipine resumed as well. Continue to monitor HLD holding statin DMII Hold home metformin Recurrent UTI Continue home methenamine when able to take po Recurrent migraines Continue home riboflavin Chronic normocytic anemia Hgb baseline ~10, stable Monitor CBC Diet: currently on tube feeds DVT prophylaxis: Lovenox SQ Dispo: PT/OT ordered, pt has caregivers CODE STATUS: Pt's listed contact in chart was contacted on 08/09 to discuss code status. She states that she works with an agency and is pt's caregiver but is not equipped nor does she want the responsibility of making life/ decisions for pt. She states pt has no POA and is estranged from living family, a sister with whom she was in contact passed recently. CM aware. Admission and Anticipated Discharge Date Admission Date: August 06, 2023 Subjective Pt seen in follow up of hypoxic resp. failure, was initially intubated on admission and then required re-intubation during her hosp. stay Initially treated for severe constipation, poss. perf. - this was ruled out, pt seen by gen. surgery and having BMs - however needing bowel regimen Then managed in ICU for pulm. edema, poss. pna Pt extubated Patient currently does not follow commands, does not answer questions, not able to obtain ROS. Her eyes are open, she is sitting up in bed, she does not appear in any distress. She looks at me when I call her name. been Nonverbal. NGT tube placed on (08/19/23) to provide nutrition. Psychiatry following closely - started clozapine - currently on 50 HS Currently also treated for ESBL E. coli Per psychiatry - able to say "Thank you" today. pt did not speak to me on my eval. looks comfortable , is awake and has good eye contact when I call her name. Review of Systems Review of Systems: Unobtainable due to cognitive status Physical Exam Physical Exam: General: laying in bed Neuro/ Psych: awake, + eye contact HEENT: NC/AT, feeding tube in nares CV: RRR Resp:no increased effort of breathing Abdomen: soft Extremities:waffle boots lower extremities bilaterally. Results & Data Results & Data Vital Signs (Past 12 Hours) Vital Signs Temp Pulse Pulse Resp BP BP Pulse Ox 08/29/23 08:07 36.7 C 71 18 148/64 H 95 08/29/23 03:41 37.2 C 70 16 144/76 H 99 08/29/23 00:00 70 08/28/23 22:52 36.5 C 65 16 138/66 94 O2 Del Method 08/29/23 08:07 Room Air 08/29/23 03:41 Room Air 08/29/23 00:00 08/28/23 22:52 Room Air Laboratory Results 08/29/23 08/29/23 08/29/23 Range/Units 06:53 05:54 00:01 WBC 4.10 L (4.8-10.8) K/ul RBC 3.21 L (4.20-5.40) M/uL Hgb 9.2 L (12.0-16.0) g/dl Hct 28.9 L (37.0-47.0) % MCV 90.0 (80.0-100.0) fL MCH 28.7 (25.0-34.0) pg MCHC 31.8 L (32.0-36.0) g/dL RDW Std Deviation 54.7 H (36.4-46.3) fL RDW Coeff of Cyn 16.8 H (11.5-14.5) % Plt Count 219 (130-400) K/uL MPV 11.9 (9.4-12.4) fL Sodium 137 (136-145) mmol/L Potassium 4.2 (3.5-5.1) mmol/L Chloride 104 (98-107) mmol/L Carbon Dioxide 27 (21-32) mmol/L Anion Gap 6 (3-11) BUN 19 (6-23) mg/dl Creatinine 0.30 L (0.6-1.2) mg/dl Est Cr Clr Drug Dosing 132.1 ml/min Est GFR ( Amer) 131.7 ml/min Est GFR (Non-Af Amer) 113.6 ml/min BUN/Creatinine Ratio 63.3 H (10-20) Glucose 171 H (70-99(Fasting)) mg/dl POC Glucose 175 H 157 H (70-99) mg/dl Calcium 8.4 L (8.6-10.3) mg/dl Phosphorus 3.7 (2.5-4.9) mg/dl Magnesium 1.9 (1.7-2.4) mg/dl 08/28/23 08/28/23 Range/Units 18:18 12:03 WBC (4.8-10.8) K/ul RBC (4.20-5.40) M/uL Hgb (12.0-16.0) g/dl Hct (37.0-47.0) % MCV (80.0-100.0) fL MCH (25.0-34.0) pg MCHC (32.0-36.0) g/dL RDW Std Deviation (36.4-46.3) fL RDW Coeff of Cyn (11.5-14.5) % Plt Count (130-400) K/uL MPV (9.4-12.4) fL Sodium (136-145) mmol/L Potassium (3.5-5.1) mmol/L Chloride (98-107) mmol/L Carbon Dioxide (21-32) mmol/L Anion Gap (3-11) BUN (6-23) mg/dl Creatinine (0.6-1.2) mg/dl Est Cr Clr Drug Dosing ml/min Est GFR ( Amer) ml/min Est GFR (Non-Af Amer) ml/min BUN/Creatinine Ratio (10-20) Glucose (70-99(Fasting)) mg/dl POC Glucose 168 H 205 H (70-99) mg/dl Calcium (8.6-10.3) mg/dl Phosphorus (2.5-4.9) mg/dl Magnesium (1.7-2.4) mg/dl Medications Administered Current Inpatient Medications Amlodipine Besylate (Amlodipine Besylate 5 Mg Tab) 5 mg PO DAILY JAMEL Stop: 09/22/23 08:59 Last Admin: 08/28/23 09:23 Dose: 5 mg Clozapine (Clozapine 25 Mg Tab) 50 mg PO HS JAMEL; Protocol Stop: 09/26/23 20:59 Last Admin: 08/28/23 20:08 Dose: 50 mg Dextrose (Dextrose 50% 50 Ml Syringe) 25 - 50 ml IV UD PRN; Protocol PRN Reason: Hypoglycemia Protocol Stop: 09/05/23 21:53 Enoxaparin Sodium (Enoxaparin Inj 40 Mg/0.4 Ml Syr) 40 mg SQ Q24H JAMEL Stop: 09/11/23 13:59 Last Admin: 08/28/23 14:25 Dose: 40 mg Enteral Nutritional Formula (Fibersource Hn 1.2 German 1000 Ml Bag) 1,000 ml NG .See Protocol JAMEL; Protocol Stop: 09/18/23 11:29 Last Admin: 08/28/23 20:20 Dose: 1,000 ml Fluconazole (Fluconazole Susp 100 Mg/2.5 Ml Udp) 100 mg PO QAM [facility] Stop: 08/31/23 08:59 Last Admin: 08/28/23 09:24 Dose: 100 mg Fluticasone Propionate (Fluticasone Propionate Na Spr 16 Gm Btl) 2 sprays NA DAILY JAMEL Stop: 09/09/23 08:59 Last Admin: 08/28/23 09:23 Dose: 2 sprays Glucagon (Glucagon For Inj 1 Mg Vial) 1 mg SQ UD PRN; Protocol PRN Reason: Hypoglycemia Protocol Stop: 09/05/23 21:53 Glucose (Glucose 40% Gel 15 Gm Tube) 15 - 30 gm PO UD PRN; Protocol PRN Reason: Hypoglycemia Protocol Stop: 09/05/23 21:53 Glucose (Glucose 10 Tab/Tube) 4 - 8 tab PO UD PRN; Protocol PRN Reason: Hypoglycemia Treatment Stop: 09/05/23 21:53 Glycerin (Glycerin Adult 12 Supp/Box Supp) 1 supp [place] DAILY JAMEL Stop: 09/24/23 08:59 Last Admin: 08/28/23 09:31 Dose: 1 supp Thiamine HCl 100 mg/ Syringe 10 mls @ 2 mls/min IV DAILY JAMEL Stop: 09/11/23 08:59 Last Admin: 08/29/23 08:50 Dose: 2 mls/min Pantoprazole Sodium 40 mg/ (Syringe) 10 mls @ 5 mls/min IV DAILY JAMEL Stop: 09/11/23 09:59 Last Admin: 08/29/23 08:50 Dose: 5 mls/min Levothyroxine Sodium 37.5 mcg/ (Syringe) 1.875 mls @ 2 mls/min IV Q72H JAMEL Stop: 09/14/23 08:59 Last Admin: 08/27/23 09:49 Dose: 2 mls/min Dextrose/Sodium Chloride (D5w And Nss) 1,000 mls @ 75 mls/hr IV .[id number] JAMEL Stop: 09/16/23 21:14 Last Infusion: 08/18/23 12:26 Dose: Infused Ertapenem 1,000 mg/ Syringe 10 mls @ 2 mls/min IV DAILY JAMEL Stop: 09/07/23 11:29 Last Admin: 08/29/23 08:51 Dose: 2 mls/min Insulin Aspart (Insulin Aspart Per Unit Charge) 0 units SC Q6 JAMEL Stop: 09/18/23 11:59 Last Admin: 08/29/23 06:40 Dose: 1 units Lactulose (Lactulose Syrup 20 Gm/30 Ml Udc) 20 gm PO BID JAMEL Stop: 09/06/23 09:44 Last Admin: 08/28/23 20:08 Dose: 20 gm Lisinopril (Lisinopril 20 Mg Tab) 20 mg PO QAM JAMEL Stop: 09/19/23 15:59 Last Admin: 08/28/23 09:22 Dose: 20 mg Metoprolol Succinate (Metoprolol Succ 50mg Ext Rel Tab) 50 mg PO QAM JAMEL Stop: 09/22/23 08:59 Last Admin: 08/28/23 09:24 Dose: 50 mg Miscellaneous (Carbohydrates For Hypoglycemia ) 15 - 30 gm PO UD PRN PRN Reason: Hypoglycemia Protocol Stop: 09/05/23 21:53 Polyethylene Glycol (Polyethylene (Miralax) 17 Gm Pack) 17 gm PO TID JAMEL Stop: 09/25/23 19:29 Last Admin: 08/28/23 20:08 Dose: 17 gm Senna/Docusate Sodium (Docusate Sodium/Senna 50/8.6mg Tab) 1 tab PO BID JAMEL Stop: 09/24/23 08:59 Last Admin: 08/28/23 20:08 Dose: 1 tab Sterile Water (Tube Feeding Water Flush) 30 ml NG Q4H JAMEL Stop: 09/18/23 11:29 Last Admin: 08/28/23 23:30 Dose: 30 ml (4) Aspiration pneumonia Laterality: bilateral
--- NOTE | 2023-08-29 11:45 | Psychiatric Progress Note ---
Date of Service August 29, 2023 Impression / Recommendations Impression As per initial consult: 72 yo female with remote hx of schizophrenia maintained on same dose of clozaril for what appears to be 20+ years. Unclear last psychotic symptoms and complicated by onset of dementia with intermittent AMS. Review of chart reveals gradual increase in falls, dizziness, and severe constipation. Unclear how much due to medical illness vs. possible clozaril toxicity given no change in dose with age, etc. Unclear if siallorhea at baseline and if that could contribute to aspiration risk. Given risks of orthostasis, alter seizure thresshold, paralytic ileus, PE, etc in patients on clozaril I feel the risks outweigh the immediate benefits of retitrating while still intubated. Continuing to present nonverbal---differential includes aphasia due to neurologic event, atypical catatonia, and/or severe abulia due to negative symptom of schizophrenia. Ativan challenge was not helpful. This may mean that her issue is less likely to be catatonia. We will slowly titrate the clozapine up, but we will not approach the high dose she was on before admission. It is extremely unlikely that this low dose of clozapine would be causing neuroleptic malignant syndrome (NMS) so it is very unlikely the temperature of 38.0 C is related in any way to the antipsychotic. Overall, I spent a total of 24 minutes with this case, including review of chart, coordination with nursing, coordination of care with hospitalist service, and documentation. 08/28/23: Today is the second day that we are seeing some sedations. Otherwise, she seems about the same as she has every day that I have seen her this week. 08/29/23: Obviously, we are seeing a big improvement with her now being able to speak some. I suppose it is possible that this was a catatonia throughout the last week. It is also nice to see the brighter affect. (1) Schizophrenia: (2) Acute respiratory failure: (3) Aspiration pneumonia: (4) Constipation, chronic: (5) Encephalopathy acute: Plan Today we will increase clozapine to 50 mg. Given her medical issues and age, we we will continue to go very slowly. 08/28/23: I am not going to change the clozapine for the next day or 2 at least. We will continue to follow her and make sure were not causing problems with her medication. I am not seeing any evidence that she is acutely psychotic currently but we will continue to watch this closely. 08/29/23: I am going to increase the clozapine 1 more step to 62.5 mg nightly. I discussed the case with Dr. Cagle. Hopefully, we will continue to see more improvement over time. If she retreats back into what we think is catatonia, I think I will be more aggressive with the lorazepam to see if we can get her to come out of it that way. Another thing to consider if lorazepam does not help would be electroconvulsive therapy. Today I spent about 36 minutes on the case. This included meeting with the patient, discussing the case with the nurse, discussing the case with the attending, discussing the case with the mental health liaison nurse, orders, and documentation. Suicide Risk Level Suicide Risk Level Comments: Low given that she is not moving much. Interval History Identifying Information 72 yo female with a hx of schizophrenia, consult by hospitalist service for recs re: clozaril dosing. At the time of the initial consult she was intubated in the ICU. Chief Complaint "Chillemi" Subjective Subjective Today I met with the patient, reviewed the chart, received nursing report, and discussed the case with Dr. Cagle. When I went to the patient's room, I discovered that she had been moved to another room that was a single room due to E. coli bacteria (ESNB) in her urine. Staff said that otherwise she was about the same but seem to be making better eye contact with people. When I met with her this morning, she made really good eye contact with me and looked like she was mouthing words. She was able to nod her head or shake her head answering yes or no to questions. She even was able to tell me her last name and at the end of our conversation, said "thank you." She knew she was in a hospital she knew she was in a hospital by nodding her head. Otherwise, she really did not answer any other questions. Physical Exam Psychiatric Patient was alert and cooperative. She was clean in hospital gown in bed. Eye contact was good. Speech was normal but rare. Patient did not tell me how she was feeling when I asked. Affect is brighter. Thought process seems a little bit confused but logical and answering the questions. There was no evidence of any hallucinations or delusions. Patient would not answer questions about suicidal or homicidal thoughts. Memory and concentration could not be assessed very well because of such a little speech. There were no abnormal movements, but she kept doing her mitten up to her nose to rub it. Gait was not evaluated. Insight and judgment are impaired. Vital Signs (Past 24 Hours) Last Vital Signs Temp 36.5 C 08/29/23 11:04 Pulse 66 08/29/23 11:10 Resp 20 08/29/23 11:04 BP 149/68 H 08/29/23 11:04 Pulse Ox 98 08/29/23 11:04 O2 Del Method Room Air 08/29/23 11:04 O2 Flow Rate 35 08/13/23 20:00 FiO2 21 08/17/23 04:17 Results & Data ([facility]) Laboratory Results Laboratory Results - last 24 hr 08/28/23 08/28/23 08/29/23 12:03 18:18 00:01 WBC RBC Hgb Hct MCV MCH MCHC RDW Std Deviation RDW Coeff of Cyn Plt Count MPV Sodium Potassium Chloride Carbon Dioxide Anion Gap BUN Creatinine Est Cr Clr Drug Dosing Est GFR ( Amer) Est GFR (Non-Af Amer) BUN/Creatinine Ratio Glucose POC Glucose 205 H 168 H 157 H Calcium Phosphorus Magnesium 08/29/23 08/29/23 05:54 06:53 WBC 4.10 L RBC 3.21 L Hgb 9.2 L Hct 28.9 L MCV 90.0 MCH 28.7 MCHC 31.8 L RDW Std Deviation 54.7 H RDW Coeff of Cyn 16.8 H Plt Count 219 MPV 11.9 Sodium 137 Potassium 4.2 Chloride 104 Carbon Dioxide 27 Anion Gap 6 BUN 19 Creatinine 0.30 L Est Cr Clr Drug Dosing 132.1 Est GFR ( Amer) 131.7 Est GFR (Non-Af Amer) 113.6 BUN/Creatinine Ratio 63.3 H Glucose 171 H POC Glucose 175 H Calcium 8.4 L Phosphorus 3.7 Magnesium 1.9 Current Inpatient Medications Current Inpatient Medications: Current Inpatient Medications Amlodipine Besylate (Amlodipine Besylate 5 Mg Tab) 5 mg PO DAILY JAMEL Stop: 09/22/23 08:59 Last Admin: 08/29/23 09:27 Dose: 5 mg Clozapine (Clozapine 25 Mg Tab) 62.5 mg PO HS JAMEL; Protocol Stop: 03/29/24 20:59 Dextrose (Dextrose 50% 50 Ml Syringe) 25 - 50 ml IV UD PRN; Protocol PRN Reason: Hypoglycemia Protocol Stop: 09/05/23 21:53 Enoxaparin Sodium (Enoxaparin Inj 40 Mg/0.4 Ml Syr) 40 mg SQ Q24H [facility] Stop: 09/11/23 13:59 Last Admin: 08/28/23 14:25 Dose: 40 mg Enteral Nutritional Formula (Fibersource Hn 1.2 German 1000 Ml Bag) 1,000 ml NG .See Protocol JAMLE; Protocol Stop: 09/18/23 11:29 Last Admin: 08/28/23 20:20 Dose: 1,000 ml Fluconazole (Fluconazole Susp 100 Mg/2.5 Ml Udp) 100 mg PO QAM J[facility]EL Stop: 08/31/23 08:59 Last Admin: 08/29/23 09:27 Dose: 100 mg Fluticasone Propionate (Fluticasone Propionate Na Spr 16 Gm Btl) 2 sprays NA DAILY JAMEL Stop: 09/09/23 08:59 Last Admin: 08/29/23 09:28 Dose: 2 sprays Glucagon (Glucagon For Inj 1 Mg Vial) 1 mg SQ UD PRN; Protocol PRN Reason: Hypoglycemia Protocol Stop: 09/05/23 21:53 Glucose (Glucose 40% Gel 15 Gm Tube) 15 - 30 gm PO UD PRN; Protocol PRN Reason: Hypoglycemia Protocol Stop: 09/05/23 21:53 Glucose (Glucose 10 Tab/Tube) 4 - 8 tab PO UD PRN; Protocol PRN Reason: Hypoglycemia Treatment Stop: 09/05/23 21:53 Glycerin (Glycerin Adult 12 Supp/Box Supp) 1 supp ID DAILY JAMEL Stop: 09/24/23 08:59 Last Admin: 08/28/23 09:31 Dose: 1 supp Thiamine HCl 100 mg/ Syringe 10 mls @ 2 mls/min IV DAILY [facility] Stop: 09/11/23 08:59 Last Admin: 08/29/23 08:50 Dose: 2 mls/min Pantoprazole Sodium 40 mg/ (Syringe) 10 mls @ 5 mls/min IV DAILY [facility] Stop: 09/11/23 09:59 Last Admin: 08/29/23 08:50 Dose: 5 mls/min Levothyroxine Sodium 37.5 mcg/ (Syringe) 1.875 mls @ 2 mls/min IV Q72H [facility] Stop: 09/14/23 08:59 Last Admin: 08/27/23 09:49 Dose: 2 mls/min Dextrose/Sodium Chloride (D5w And Nss) 1,000 mls @ 75 mls/hr IV .[id number] [facility] Stop: 09/16/23 21:14 Last Infusion: 08/18/23 12:26 Dose: Infused Ertapenem 1,000 mg/ Syringe 10 mls @ 2 mls/min IV DAILY JAMEL Stop: 09/07/23 11:29 Last Admin: 08/29/23 08:51 Dose: 2 mls/min Insulin Aspart (Insulin Aspart Per Unit Charge) 0 units SC Q6 [facility] Stop: 09/18/23 11:59 Last Admin: 08/29/23 06:40 Dose: 1 units Lactulose (Lactulose Syrup 20 Gm/30 Ml Udc) 20 gm PO BID [facility] Stop: 09/06/23 09:44 Last Admin: 08/29/23 09:27 Dose: 20 gm Lisinopril (Lisinopril 20 Mg Tab) 20 mg PO QAM [facility] Stop: 09/19/23 15:59 Last Admin: 08/29/23 09:32 Dose: 20 mg Metoprolol Succinate (Metoprolol Succ 50mg Ext Rel Tab) 50 mg PO QAM [facility] Stop: 09/22/23 08:59 Last Admin: 08/29/23 09:27 Dose: 50 mg Miscellaneous (Carbohydrates For Hypoglycemia ) 15 - 30 gm PO UD PRN PRN Reason: Hypoglycemia Protocol Stop: 09/05/23 21:53 Polyethylene Glycol (Polyethylene (Miralax) 17 Gm Pack) 17 gm PO TID [facility] Stop: 09/25/23 19:29 Last Admin: 08/29/23 09:27 Dose: 17 gm Senna/Docusate Sodium (Docusate Sodium/Senna 50/8.6mg Tab) 1 tab PO BID [facility] Stop: 09/24/23 08:59 Last Admin: 08/29/23 09:26 Dose: 1 tab Sterile Water (Tube Feeding Water Flush) 30 ml NG Q4H [facility] Stop: 09/18/23 11:29 Last Admin: 08/28/23 23:30 Dose: 30 ml (3) Aspiration pneumonia Laterality: bilateral
--- NOTE | 2023-08-29 14:23 | XRay Report ---
XR chest 1V portable HISTORY: Nasogastric tube position/ coughing/gagging COMPARISON: Chest 08/16/2023. FINDINGS: No pneumothorax. No pleural effusions. The cardiac silhouette is mildly enlarged. No focal lung consolidations to suggest a pneumonia. No evidence for pulmonary edema. The feeding tube termina mandie below the diaphragm with the tip in a postpyloric position. Therefore, this is in good position. IMPRESSION: 1. No acute process within the chest. 2. The feeding tube appears in good position. ACT 112: Negative or not required by law. Electronically signed by: Doe Harper M.D. 08/29/2023 2:21 PM
[2023-08-29] MEDS: cloZAPine 25 MG TAB PO SCH (22:53)
[2023-08-30 07:05] LABS: Hematocrit (blood only) 28.9 % (37.0-47.0); Hemoglobin 9.1 g/dl (12.0-16.0); Mean Corpuscular Hemoglobin 28.2 pg (25.0-34.0); Mean Corpuscular Hgb Conc 31.5 g/dL (32.0-36.0); Mean Corpuscular Volume 89.5 fL (80.0-100.0); Mean Platelet Volume 11.6 fL (9.4-12.4); Platelet Count 205 K/uL (130-400); RDW Coefficient of Variation 16.5 % (11.5-14.5); RDW Standard Deviation 54.1 fL (36.4-46.3); Red Blood Count 3.23 M/uL (4.20-5.40); White Blood Count 3.21 K/ul (4.8-10.8)
[2023-08-30 07:28] LABS: BUN Creatinine Ratio 58.6 (10-20); Calcium 8.5 mg/dl (8.6-10.3); Creatinine Clr Calc Pharmacy 136.6 ml/min; Est GFR (African American) 133.1 ml/min; Est GFR (Non-African American) 114.9 ml/min; Magnesium 1.8 mg/dl (1.7-2.4); Phosphorus 4.2 mg/dl (2.5-4.9)
--- NOTE | 2023-08-30 08:56 | Hospitalist Progress Note ---
Date of Service August 30, 2023 Assessment & Plan (1) Stercoral colitis: (2) Constipation, chronic: (3) Full code status: (4) Aspiration pneumonia: (5) On mechanically assisted ventilation: (6) Acute respiratory failure: Plan Pt is a 72yoF with PMHx significant for HTN, HLD, DMII, hypothyroidism, Hx of brain tumor s/p partial resection, schizophrenia, prior migraine, chronic anemia, recurrent UTIs, urinary incontinence and urinary bladder diverticulum presented after being found down and minimally responsive at home. Patient was admitted to the ICU for management and evaluation of septic shock. Was downgraded and re-intubated in the ICU on 08/11. Acute respiratory failure requiring mechanical ventilation On admission, was secondary to severe sepsis above, requiring intubation Vent management per ICU, pt extubated on 08/08 On Aug 09- pt developed acute respiratory failure once more - Pt with increasing oxygen requirement. - Chest xray with bilateral opacities, pneumonia (?possible aspiration), procalcitonin elevated >34. -Was on hi emy oxygen, pt in restraints. -Pulmonology previously consulted- appreciate recs. -Diuresing with IV Lasix. -Transferred to ICU once more on 08/11 Transferred back to the ICU on 08/11 -was on bipap and re-intubated on 08/11 -bronch also done on 08/11 with cultures obtained and currently growing ryan. Noted mucoid impaction in RLL. -was on propofol and fentanyl for sedation -extubated once more on 08/15, currently on RA Cognitive Impairment Schizophrenia Acute Agitation/Delirium Required 24 hour support previously, relies on assistance of two care givers [employer] On clozapine, cymbalta, gabapentin at home, all held Pt pulling at lines and more agitated on 08/09 -will re-start home clozapine, per recs needs to titrated up slowly if held for more than 48hrs due to risk of bradycardia, hypotension -pt's home dose of clozapine 50mg qAM, 300mg qPM -clozapine restart on 08/10 at 12.5mg qAM, titrate dose up to home dosing -> now on hold, psych consulted -will hold off on restarting sedating/other meds above (gabapentin, cymbalta) Delirium precautions. Head CT as per ICU,negative for any acute findings Pt was treated with precedex in the ICU and that was dc on 08/13. Psychiatry subsequently consulted -resuming clorazil at this time, slowly. Currently at 50mg -> 62.5 mg, appreciate psych recs. -trial of Ativan 1mg on 08/23 -Head imaging pending until pt more stable to be in scanner/laying flat without concern for aspiration Neurology also consulted - last time seen by Dr. Cordova on 08/16 - EEG August 07 showed generalized slowing from encephalopathy but no epileptiform activity. -The patient also has a history of schizophrenia and is on Clozaril -Recommendations: 1. Now that she is extubated, increase activity as able, include physical, occupational, and speech therapy. 2. If the patient does not have a history of chronic left-sided weakness, consider MRI of the brain with and without contrast when more clinically stable. Fever Complicated UTI Pt with fever in early AM on 08/26 -UA suggestive of infection, urine Cx growing ESBL E.coli . Was started on Aztreonam, switched to Ertapenem on 08/28 (Day #3) -c diff negative with overflow diarrhea noted on 08/26 -ID consult for urine cx results, days of rx placed-appreciate recs Pt currently afebrile Anorexia Severe Malnutrition Adult failure to thrive Pt reportedly was not taking PO, not opening mouth NGT tube placed for nutritional needs (08/19) and started on feeds Has been receiving some meds orally, consider trial of po food intake -speech eval on 08/24 noted: pt a bit more sleepy -speech recommending permanent feeding option such as PEG -GI consult placed on 08/25 for possible PEG tube placement -consider PEG after workup and Rx of fever on 08/26 Consider PEG tube placement once more stable otherwise - pt started to eat, plan to remove NGT (if pt needs NGT again will need to be placed in another nare) Severe constipation Stercoral Colitis CT Abd/pelvis showing significant stool burden on admission On lactulose, received enemas Reportedly pt had many BMs before General surgery consulted- appreciate recs -recommending to continue with bowel regimen, consider suppositories if pt unable to tolerate PO Currently resolved, cont. to closely monitor Bowel regimen resumed, on a scheduled basis with daily stool softener and lactulose BID dosing. Continue to monitor BM -KUB on 08/26 noting persistent large or severe amount of well-formed stool again seen throughout the colon and rectum. -reports of loose stool on 08/26, likely overflow constipation -BOWEL REGIMEN: lactulose 20mg BID + glycerin suppository daily + docusate/senna BID + miralax scheduled TID -GI recommending daily miralax through PEG once placed - BM on 08/29, Septic shock-POA Pt was hypotensive on admission, requiring ICU admission Required pressor support which has since been discontinued. UA repeatedly without signs of infection, urine Cx with NGTD Chest XR with no signs of infection, biofire negative CT abd/pelvis with suggestion of stercoral colitis, bowel perforation less likely/ruled out Blood Cx x1 grew alpha strep, ?contaminant Was treated with Vanc/Zosyn. 08/10- pt with increased oxygen requirement, chest xray with noted possible pneumonia (also fluid overload), procal newly elevated. Pulmonology consulted- pt switched to meropenem for antibiotic coverage. Repeat Blood Cultures with NGTD. Pt completed abx treatment while hospitalized. Currently resolved. Oral ryan/ ? poss. ryan esophagitis Patient does not follow commands and does not open her mouth when asked. However she yawned several times, and there is a visible white plaque on her tongue. Nystatin ordered however difficult for nurses to actually apply nystatin as patient does not follow commands, does not open her mouth when asked. Started fluconazole. Cont. to monitor. FULL CODE STATUS On Aug 10, 2023, advised by CM that there is a jainism contact who might be able to weigh in on code discussion given pt has no known family with whom she is in contact to assist with her decisions during critical times. Listed contact in the chart is a Caregiver from an agency and does not want to be responsible for making those decisions for the pt. Mr. Weston Archibald [phone] was contacted about 4:45PM as advised by Case Management. He states that his only contact with the patient was visiting on behalf of the jainism. Would not describe himself as a friend. Notes that he was advised by someone in the medical field that this should likely go to the Ethics committee. States that he is concerned about what the law states in terms of being able to speak on her behalf. Does note in his conversations with the patient that she has always wanted to be well and "go home" (he makes the distinction not her heavenly home) so he would assume that she wants heroic measures done. States that he has been at [facility] in the past and has visited pts who have been here for months and states that he believes this is what June would want as well. Next steps currently pending. Appreciate CM assistance. GOC discussions to be continued, still full code. Hypothyroidism Levothyroxine resumed, continue Hypertension Held home antihypertensive while patient was on vasopressors BP currently trending back up Was on iv metoprolol, home po metoprolol resumed Home lisinopril was previously resumed Home amlodipine resumed as well. Continue to monitor HLD holding statin DMII Hold home metformin Recurrent UTI Continue home methenamine when able to take po Recurrent migraines Continue home riboflavin Chronic normocytic anemia Hgb baseline ~10, stable Monitor CBC Diet: currently on tube feeds DVT prophylaxis: Lovenox SQ Dispo: PT/OT ordered, pt has caregivers CODE STATUS: Pt's listed contact in chart was contacted on 08/09 to discuss code status. She states that she works with an agency and is pt's caregiver but is not equipped nor does she want the responsibility of making life/ decisions for pt. She states pt has no POA and is estranged from living family, a sister with whom she was in contact passed recently. CM aware. Admission and Anticipated Discharge Date Admission Date: August 06, 2023 Subjective Pt seen in follow up of hypoxic resp. failure, was initially intubated on admission and then required re-intubation during her hosp. stay Initially treated for severe constipation, poss. perf. - this was ruled out, pt seen by gen. surgery and having BMs - however needing bowel regimen Then managed in ICU for pulm. edema, poss. pna Pt extubated Patient was not following commands, was nonverbal. NGT tube placed on (08/19/23) to provide nutrition. Psychiatry following closely - started clozapine - currently on 62.5 HS Currently also treated for ESBL E. coli Patient is now more awake, she is able to say "thank you", or answer some simple questions. She started to eat yesterday. We will remove NG tube. Discussed in detail with speech therapy and with RN at the bedside. Review of Systems Review of Systems: All systems reviewed & are unremarkable except as noted in Subjective Physical Exam Physical Exam: General: sitting up in bed in NAD Neuro/ Psych: awake, + eye contact, able to answer some simple questions HEENT: NC/AT, feeding tube in nares CV: RRR Resp:no increased effort of breathing Abdomen: soft Extremities:waffle boots lower extremities bilaterally. Results & Data Results & Data Vital Signs (Past 12 Hours) Vital Signs Temp Pulse Pulse Resp BP BP Pulse Ox 08/30/23 08:14 37.1 C 63 16 155/77 H 100 08/30/23 03:05 36.8 C 63 18 155/65 H 98 08/30/23 00:00 62 08/29/23 23:27 36.6 C 60 16 136/60 100 O2 Del Method 08/30/23 08:14 Room Air 08/30/23 03:05 Room Air 08/30/23 00:00 08/29/23 23:27 Room Air Laboratory Results 08/30/23 08/30/23 08/30/23 Range/Units 06:21 05:58 00:11 WBC 3.21 L (4.8-10.8) K/ul RBC 3.23 L (4.20-5.40) M/uL Hgb 9.1 L (12.0-16.0) g/dl Hct 28.9 L (37.0-47.0) % MCV 89.5 (80.0-100.0) fL MCH 28.2 (25.0-34.0) pg MCHC 31.5 L (32.0-36.0) g/dL RDW Std Deviation 54.1 H (36.4-46.3) fL RDW Coeff of Cyn 16.5 H (11.5-14.5) % Plt Count 205 (130-400) K/uL MPV 11.6 (9.4-12.4) fL Sodium 137 (136-145) mmol/L Potassium 4.0 (3.5-5.1) mmol/L Chloride 104 (98-107) mmol/L Carbon Dioxide 28 (21-32) mmol/L Anion Gap 5 (3-11) BUN 17 (6-23) mg/dl Creatinine 0.29 L (0.6-1.2) mg/dl Est Cr Clr Drug Dosing 136.6 ml/min Est GFR ( Amer) 133.1 ml/min Est GFR (Non-Af Amer) 114.9 ml/min BUN/Creatinine Ratio 58.6 H (10-20) Glucose 160 H (70-99(Fasting)) mg/dl POC Glucose 166 H 171 H (70-99) mg/dl Calcium 8.5 L (8.6-10.3) mg/dl Phosphorus 4.2 (2.5-4.9) mg/dl Magnesium 1.8 (1.7-2.4) mg/dl 08/29/23 08/29/23 Range/Units 18:34 11:47 WBC (4.8-10.8) K/ul RBC (4.20-5.40) M/uL Hgb (12.0-16.0) g/dl Hct (37.0-47.0) % MCV (80.0-100.0) fL MCH (25.0-34.0) pg MCHC (32.0-36.0) g/dL RDW Std Deviation (36.4-46.3) fL RDW Coeff of Cyn (11.5-14.5) % Plt Count (130-400) K/uL MPV (9.4-12.4) fL Sodium (136-145) mmol/L Potassium (3.5-5.1) mmol/L Chloride (98-107) mmol/L Carbon Dioxide (21-32) mmol/L Anion Gap (3-11) BUN (6-23) mg/dl Creatinine (0.6-1.2) mg/dl Est Cr Clr Drug Dosing ml/min Est GFR ( Amer) ml/min Est GFR (Non-Af Amer) ml/min BUN/Creatinine Ratio (10-20) Glucose (70-99(Fasting)) mg/dl POC Glucose 143 H 161 H (70-99) mg/dl Calcium (8.6-10.3) mg/dl Phosphorus (2.5-4.9) mg/dl Magnesium (1.7-2.4) mg/dl Medications Administered Current Inpatient Medications Amlodipine Besylate (Amlodipine Besylate 5 Mg Tab) 5 mg PO DAILY JAMEL Stop: 09/22/23 08:59 Last Admin: 08/29/23 09:27 Dose: 5 mg Clozapine (Clozapine 25 Mg Tab) 62.5 mg PO HS JAMEL; Protocol Stop: 09/28/23 20:59 Last Admin: 08/29/23 22:53 Dose: 62.5 mg Dextrose (Dextrose 50% 50 Ml Syringe) 25 - 50 ml IV UD PRN; Protocol PRN Reason: Hypoglycemia Protocol Stop: 09/05/23 21:53 Enoxaparin Sodium (Enoxaparin Inj 40 Mg/0.4 Ml Syr) 40 mg SQ Q24H [facility] Stop: 09/11/23 13:59 Last Admin: 08/29/23 15:30 Dose: 40 mg Enteral Nutritional Formula (Fibersource Hn 1.2 German 1000 Ml Bag) 1,000 ml NG .See Protocol JAMEL; Protocol Stop: 09/18/23 11:29 Last Admin: 08/29/23 19:42 Dose: 1,000 ml Fluconazole (Fluconazole Susp 100 Mg/2.5 Ml Udp) 100 mg PO QAM [facility] Stop: 08/31/23 08:59 Last Admin: 08/29/23 09:27 Dose: 100 mg Fluticasone Propionate (Fluticasone Propionate Na Spr 16 Gm Btl) 2 sprays NA DAILY [facility] Stop: 09/09/23 08:59 Last Admin: 08/29/23 09:28 Dose: 2 sprays Glucagon (Glucagon For Inj 1 Mg Vial) 1 mg SQ UD PRN; Protocol PRN Reason: Hypoglycemia Protocol Stop: 09/05/23 21:53 Glucose (Glucose 40% Gel 15 Gm Tube) 15 - 30 gm PO UD PRN; Protocol PRN Reason: Hypoglycemia Protocol Stop: 09/05/23 21:53 Glucose (Glucose 10 Tab/Tube) 4 - 8 tab PO UD PRN; Protocol PRN Reason: Hypoglycemia Treatment Stop: 09/05/23 21:53 Glycerin (Glycerin Adult 12 Supp/Box Supp) 1 supp PA DAILY JAMEL Stop: 09/24/23 08:59 Last Admin: 08/29/23 11:50 Dose: 1 supp Thiamine HCl 100 mg/ Syringe 10 mls @ 2 mls/min IV DAILY JAMEL Stop: 09/11/23 08:59 Last Admin: 08/29/23 08:50 Dose: 2 mls/min Pantoprazole Sodium 40 mg/ (Syringe) 10 mls @ 5 mls/min IV DAILY [facility] Stop: 09/11/23 09:59 Last Admin: 08/29/23 08:50 Dose: 5 mls/min Levothyroxine Sodium 37.5 mcg/ (Syringe) 1.875 mls @ 2 mls/min IV Q72H JAMEL Stop: 09/14/23 08:59 Last Admin: 08/27/23 09:49 Dose: 2 mls/min Dextrose/Sodium Chloride (D5w And Nss) 1,000 mls @ 75 mls/hr IV .[id number] JAMEL Stop: 09/16/23 21:14 Last Infusion: 08/18/23 12:26 Dose: Infused Ertapenem 1,000 mg/ Syringe 10 mls @ 2 mls/min IV DAILY JAMEL Stop: 09/07/23 11:29 Last Admin: 08/29/23 08:51 Dose: 2 mls/min Insulin Aspart (Insulin Aspart Per Unit Charge) 0 units SC Q6 JAMEL Stop: 09/18/23 11:59 Last Admin: 08/30/23 06:12 Dose: 1 units Lactulose (Lactulose Syrup 20 Gm/30 Ml Udc) 20 gm PO BID JAMEL Stop: 09/06/23 09:44 Last Admin: 08/29/23 21:15 Dose: 20 gm Lisinopril (Lisinopril 20 Mg Tab) 20 mg PO QAM J[facility] Stop: 09/19/23 15:59 Last Admin: 08/29/23 09:32 Dose: 20 mg Metoprolol Succinate (Metoprolol Succ 50mg Ext Rel Tab) 50 mg PO QAM J[facility] Stop: 09/22/23 08:59 Last Admin: 08/29/23 09:27 Dose: 50 mg Miscellaneous (Carbohydrates For Hypoglycemia ) 15 - 30 gm PO UD PRN PRN Reason: Hypoglycemia Protocol Stop: 09/05/23 21:53 Polyethylene Glycol (Polyethylene (Miralax) 17 Gm Pack) 17 gm PO TID JAMEL Stop: 09/25/23 19:29 Last Admin: 08/29/23 21:15 Dose: 17 gm Senna/Docusate Sodium (Docusate Sodium/Senna 50/8.6mg Tab) 1 tab PO BID JAMEL Stop: 09/24/23 08:59 Last Admin: 08/29/23 21:15 Dose: 1 tab Sterile Water (Tube Feeding Water Flush) 30 ml NG Q4H JAMEL Stop: 09/18/23 11:29 Last Admin: 08/30/23 03:56 Dose: 30 ml (4) Aspiration pneumonia Laterality: bilateral
--- NOTE | 2023-08-30 13:42 | Psychiatric Progress Note ---
Date of Service August 30, 2023 Impression / Recommendations Impression As per initial consult: 72 yo female with remote hx of schizophrenia maintained on same dose of clozaril for what appears to be 20+ years. Unclear last psychotic symptoms and complicated by onset of dementia with intermittent AMS. Review of chart reveals gradual increase in falls, dizziness, and severe constipation. Unclear how much due to medical illness vs. possible clozaril toxicity given no change in dose with age, etc. Unclear if siallorhea at baseline and if that could contribute to aspiration risk. Given risks of orthostasis, alter seizure thresshold, paralytic ileus, PE, etc in patients on clozaril I feel the risks outweigh the immediate benefits of retitrating while still intubated. Continuing to present nonverbal---differential includes aphasia due to neurologic event, atypical catatonia, and/or severe abulia due to negative symptom of schizophrenia. Ativan challenge was not helpful. This may mean that her issue is less likely to be catatonia. We will slowly titrate the clozapine up, but we will not approach the high dose she was on before admission. It is extremely unlikely that this low dose of clozapine would be causing neuroleptic malignant syndrome (NMS) so it is very unlikely the temperature of 38.0 C is related in any way to the antipsychotic. Overall, I spent a total of 24 minutes with this case, including review of chart, coordination with nursing, coordination of care with hospitalist service, and documentation. 08/28/23: Today is the second day that we are seeing some sedations. Otherwise, she seems about the same as she has every day that I have seen her this week. 08/29/23: Obviously, we are seeing a big improvement with her now being able to speak some. I suppose it is possible that this was a catatonia throughout the last week. It is also nice to see the brighter affect. 08/30/23: Patient seems to be slowly improving and is interacting more with her environment. I am worried about some sedation from the clozapine. (1) Schizophrenia: (2) Acute respiratory failure: (3) Aspiration pneumonia: (4) Constipation, chronic: (5) Encephalopathy acute: Plan Today we will increase clozapine to 50 mg. Given her medical issues and age, we we will continue to go very slowly. 08/28/23: I am not going to change the clozapine for the next day or 2 at least. We will continue to follow her and make sure were not causing problems with her medication. I am not seeing any evidence that she is acutely psychotic currently but we will continue to watch this closely. 08/29/23: I am going to increase the clozapine 1 more step to 62.5 mg nightly. I discussed the case with Dr. Cagle. Hopefully, we will continue to see more improvement over time. If she retreats back into what we think is catatonia, I think I will be more aggressive with the lorazepam to see if we can get her to come out of it that way. Another thing to consider if lorazepam does not help would be electroconvulsive therapy. 08/30/23: I am going to leave the clozapine alone today and not change it. I discussed the case with Dr. Cagle. Hopefully, we will continue to see more improvement. Today I spent about 26 minutes on the case. This included meeting with the patient, discussing the case with the nurse, discussing the case with the attending, discussing the case with the mental health liaison nurse, and documentation. Suicide Risk Level Suicide Risk Level Comments: Low given that she is not moving much. Interval History Identifying Information 72 yo female with a hx of schizophrenia, consult by hospitalist service for recs re: clozaril dosing. At the time of the initial consult she was intubated in the ICU. Chief Complaint "[]". Subjective Subjective Patient was seen & assessed and interval progress reviewed with [treatment team] [nursing and social work] Physical Exam Vital Signs (Past 24 Hours) Last Vital Signs Temp 36.7 C 08/30/23 12:16 Pulse 64 08/30/23 12:16 Resp 16 08/30/23 12:16 BP 150/71 H 08/30/23 12:16 Pulse Ox 99 08/30/23 12:16 O2 Del Method Room Air 08/30/23 12:16 O2 Flow Rate 35 08/13/23 20:00 FiO2 21 08/17/23 04:17 [facility] & [facility] Laboratory Results Laboratory Results - last 24 hr 08/29/23 08/30/23 08/30/23 18:34 00:11 05:58 WBC RBC Hgb Hct MCV MCH MCHC RDW Std Deviation RDW Coeff of Cyn Plt Count MPV Sodium Potassium Chloride Carbon Dioxide Anion Gap BUN Creatinine Est Cr Clr Drug Dosing Est GFR ( Amer) Est GFR (Non-Af Amer) BUN/Creatinine Ratio Glucose POC Glucose 143 H 171 H 166 H Calcium Phosphorus Magnesium 08/30/23 08/30/23 06:21 12:00 WBC 3.21 L RBC 3.23 L Hgb 9.1 L Hct 28.9 L MCV 89.5 MCH 28.2 MCHC 31.5 L RDW Std Deviation 54.1 H RDW Coeff of Cyn 16.5 H Plt Count 205 MPV 11.6 Sodium 137 Potassium 4.0 Chloride 104 Carbon Dioxide 28 Anion Gap 5 BUN 17 Creatinine 0.29 L Est Cr Clr Drug Dosing 136.6 Est GFR ( Amer) 133.1 Est GFR (Non-Af Amer) 114.9 BUN/Creatinine Ratio 58.6 H Glucose 160 H POC Glucose 170 H Calcium 8.5 L Phosphorus 4.2 Magnesium 1.8 Current Inpatient Medications Current Inpatient Medications: Current Inpatient Medications Amlodipine Besylate (Amlodipine Besylate 5 Mg Tab) 5 mg PO DAILY JAMEL Stop: 09/22/23 08:59 Last Admin: 08/30/23 09:29 Dose: 5 mg Clozapine (Clozapine 25 Mg Tab) 62.5 mg PO HS JAMEL; Protocol Stop: 09/28/23 20:59 Last Admin: 08/29/23 22:53 Dose: 62.5 mg Dextrose (Dextrose 50% 50 Ml Syringe) 25 - 50 ml IV UD PRN; Protocol PRN Reason: Hypoglycemia Protocol Stop: 09/05/23 21:53 Enoxaparin Sodium (Enoxaparin Inj 40 Mg/0.4 Ml Syr) 40 mg SQ Q24H [facility]AMEL Stop: 09/11/23 13:59 Last Admin: 08/29/23 15:30 Dose: 40 mg Enteral Nutritional Formula (Fibersource Hn 1.2 German 1000 Ml Bag) 1,000 ml NG .See Protocol JAMEL; Protocol Stop: 09/18/23 11:29 Last Admin: 08/29/23 19:42 Dose: 1,000 ml Fluconazole (Fluconazole Susp 100 Mg/2.5 Ml Udp) 100 mg PO QAM [facility]EL Stop: 08/31/23 08:59 Last Admin: 08/30/23 09:33 Dose: Not Given Fluticasone Propionate (Fluticasone Propionate Na Spr 16 Gm Btl) 2 sprays NA DAILY JAMEL Stop: 09/09/23 08:59 Last Admin: 08/30/23 09:30 Dose: 2 sprays Glucagon (Glucagon For Inj 1 Mg Vial) 1 mg SQ UD PRN; Protocol PRN Reason: Hypoglycemia Protocol Stop: 09/05/23 21:53 Glucose (Glucose 40% Gel 15 Gm Tube) 15 - 30 gm PO UD PRN; Protocol PRN Reason: Hypoglycemia Protocol Stop: 09/05/23 21:53 Glucose (Glucose 10 Tab/Tube) 4 - 8 tab PO UD PRN; Protocol PRN Reason: Hypoglycemia Treatment Stop: 09/05/23 21:53 Glycerin (Glycerin Adult 12 Supp/Box Supp) 1 supp PA DAILY J[facility]EL Stop: 09/24/23 08:59 Last Admin: 08/30/23 09:31 Dose: 1 supp Thiamine HCl 100 mg/ Syringe 10 mls @ 2 mls/min IV DAILY J[facility]EL Stop: 09/11/23 08:59 Last Admin: 08/30/23 09:32 Dose: 2 mls/min Pantoprazole Sodium 40 mg/ (Syringe) 10 mls @ 5 mls/min IV DAILY JAMEL Stop: 09/11/23 09:59 Last Admin: 08/30/23 09:28 Dose: 5 mls/min Dextrose/Sodium Chloride (D5w And Nss) 1,000 mls @ 75 mls/hr IV .[id number] [facility]AMEL Stop: 09/16/23 21:14 Last Infusion: 08/18/23 12:26 Dose: Infused Ertapenem 1,000 mg/ Syringe 10 mls @ 2 mls/min IV DAILY JAMEL Stop: 09/07/23 11:29 Last Admin: 08/30/23 09:32 Dose: 2 mls/min Insulin Aspart (Insulin Aspart Per Unit Charge) 0 units SC Q6 JAMEL Stop: 09/18/23 11:59 Last Admin: 08/30/23 12:06 Dose: 1 units Lactulose (Lactulose Syrup 20 Gm/30 Ml Udc) 20 gm PO BID JAMEL Stop: 09/06/23 09:44 Last Admin: 08/30/23 09:29 Dose: 20 gm Levothyroxine Sodium (Levothyroxine Sodium 50 Mcg Tablet) 50 mcg PO DAILYBB JAMEL Stop: 10/02/23 06:29 Lisinopril (Lisinopril 20 Mg Tab) 20 mg PO QAM JAMEL Stop: 09/19/23 15:59 Last Admin: 08/30/23 09:29 Dose: 20 mg Metoprolol Succinate (Metoprolol Succ 50mg Ext Rel Tab) 50 mg PO QAM JAMEL Stop: 09/22/23 08:59 Last Admin: 08/30/23 09:29 Dose: 50 mg Miscellaneous (Carbohydrates For Hypoglycemia ) 15 - 30 gm PO UD PRN PRN Reason: Hypoglycemia Protocol Stop: 09/05/23 21:53 Polyethylene Glycol (Polyethylene (Miralax) 17 Gm Pack) 17 gm PO TID JAMEL Stop: 09/25/23 19:29 Last Admin: 08/30/23 09:29 Dose: 17 gm Senna/Docusate Sodium (Docusate Sodium/Senna 50/8.6mg Tab) 1 tab PO BID JAMEL Stop: 09/24/23 08:59 Last Admin: 08/30/23 09:28 Dose: 1 tab Sterile Water (Tube Feeding Water Flush) 30 ml NG Q4H JAMEL Stop: 09/18/23 11:29 Last Admin: 08/30/23 12:41 Dose: Not Given (3) Aspiration pneumonia Laterality: bilateral
--- NOTE | 2023-08-30 13:42 | Psychiatric Progress Note ---
Date of Service August 30, 2023 Impression / Recommendations Impression As per initial consult: 72 yo female with remote hx of schizophrenia maintained on same dose of clozaril for what appears to be 20+ years. Unclear last psychotic symptoms and complicated by onset of dementia with intermittent AMS. Review of chart reveals gradual increase in falls, dizziness, and severe constipation. Unclear how much due to medical illness vs. possible clozaril toxicity given no change in dose with age, etc. Unclear if siallorhea at baseline and if that could contribute to aspiration risk. Given risks of orthostasis, alter seizure thresshold, paralytic ileus, PE, etc in patients on clozaril I feel the risks outweigh the immediate benefits of retitrating while still intubated. Continuing to present nonverbal---differential includes aphasia due to neurologic event, atypical catatonia, and/or severe abulia due to negative symptom of schizophrenia. Ativan challenge was not helpful. This may mean that her issue is less likely to be catatonia. We will slowly titrate the clozapine up, but we will not approach the high dose she was on before admission. It is extremely unlikely that this low dose of clozapine would be causing neuroleptic malignant syndrome (NMS) so it is very unlikely the temperature of 38.0 C is related in any way to the antipsychotic. Overall, I spent a total of 24 minutes with this case, including review of chart, coordination with nursing, coordination of care with hospitalist service, and documentation. 08/28/23: Today is the second day that we are seeing some sedations. Otherwise, she seems about the same as she has every day that I have seen her this week. 08/29/23: Obviously, we are seeing a big improvement with her now being able to speak some. I suppose it is possible that this was a catatonia throughout the last week. It is also nice to see the brighter affect. 08/30/23: Patient seems to be slowly improving and is interacting more with her environment. I am worried about some sedation from the clozapine. (1) Schizophrenia: (2) Acute respiratory failure: (3) Aspiration pneumonia: (4) Constipation, chronic: (5) Encephalopathy acute: Plan Today we will increase clozapine to 50 mg. Given her medical issues and age, we we will continue to go very slowly. 08/28/23: I am not going to change the clozapine for the next day or 2 at least. We will continue to follow her and make sure were not causing problems with her medication. I am not seeing any evidence that she is acutely psychotic currently but we will continue to watch this closely. 08/29/23: I am going to increase the clozapine 1 more step to 62.5 mg nightly. I discussed the case with Dr. Cagle. Hopefully, we will continue to see more improvement over time. If she retreats back into what we think is catatonia, I think I will be more aggressive with the lorazepam to see if we can get her to come out of it that way. Another thing to consider if lorazepam does not help would be electroconvulsive therapy. 08/30/23: I am going to leave the clozapine alone today and not change it. I discussed the case with Dr. Cagle. Hopefully, we will continue to see more improvement. Today I spent about 26 minutes on the case. This included meeting with the patient, discussing the case with the nurse, discussing the case with the attending, discussing the case with the mental health liaison nurse, and documentation. Suicide Risk Level Suicide Risk Level Comments: Low given that she is not moving much. Interval History Identifying Information 72 yo female with a hx of schizophrenia, consult by hospitalist service for recs re: clozaril dosing. At the time of the initial consult she was intubated in the ICU. Chief Complaint Patient was asleep when I tried to meet with her today. Subjective Subjective Today I attempted to meet with the patient but she was asleep and I did not want to awaken her. I reviewed the chart, spoke to the nurse, discussed the case with the mental health nurse liaison, and discussed the case with Dr. Cagle. Janice is in our hospital for concerns of possible catatonia versus some other neurovascular event. The nurse tells me that she continues to show signs of improvement. She has been talking with some of the staff at least yesterday. When they were cleaning her this morning she was interacting with her environment such as grabbing the side of the bed when they were trying to help roll her over. She still sometimes using her mitten to nudge the feeding tube in her nose and I imagine that it is a little bit uncomfortable. The nurse said that she had the patient was able to eat some food both yesterday and this morning and it sounds like she is getting more comfortable with doing that and they will likely pull the nasogastric tube soon. There are times that she is speaking in definitely showing more affect and interactions with her surroundings. Physical Exam Psychiatric Today when I met with the patient she was asleep. She was clean and it looks like the staff are taking good care of her. Affect was relaxed. No abnormal movements were seen. Vital Signs (Past 24 Hours) Last Vital Signs Temp 36.7 C 08/30/23 12:16 Pulse 64 08/30/23 12:16 Resp 16 08/30/23 12:16 BP 150/71 H 08/30/23 12:16 Pulse Ox 99 08/30/23 12:16 O2 Del Method Room Air 08/30/23 12:16 O2 Flow Rate 35 08/13/23 20:00 FiO2 21 08/17/23 04:17 Results & Data (U) Laboratory Results Laboratory Results - last 24 hr 08/29/23 08/30/23 08/30/23 18:34 00:11 05:58 WBC RBC Hgb Hct MCV MCH MCHC RDW Std Deviation RDW Coeff of Cyn Plt Count MPV Sodium Potassium Chloride Carbon Dioxide Anion Gap BUN Creatinine Est Cr Clr Drug Dosing Est GFR ( Amer) Est GFR (Non-Af Amer) BUN/Creatinine Ratio Glucose POC Glucose 143 H 171 H 166 H Calcium Phosphorus Magnesium 08/30/23 08/30/23 06:21 12:00 WBC 3.21 L RBC 3.23 L Hgb 9.1 L Hct 28.9 L MCV 89.5 MCH 28.2 MCHC 31.5 L RDW Std Deviation 54.1 H RDW Coeff of Cyn 16.5 H Plt Count 205 MPV 11.6 Sodium 137 Potassium 4.0 Chloride 104 Carbon Dioxide 28 Anion Gap 5 BUN 17 Creatinine 0.29 L Est Cr Clr Drug Dosing 136.6 Est GFR ( Amer) 133.1 Est GFR (Non-Af Amer) 114.9 BUN/Creatinine Ratio 58.6 H Glucose 160 H POC Glucose 170 H Calcium 8.5 L Phosphorus 4.2 Magnesium 1.8 Current Inpatient Medications Current Inpatient Medications: Current Inpatient Medications Amlodipine Besylate (Amlodipine Besylate 5 Mg Tab) 5 mg PO DAILY J[facility]EL Stop: 09/22/23 08:59 Last Admin: 08/30/23 09:29 Dose: 5 mg Clozapine (Clozapine 25 Mg Tab) 62.5 mg PO HS JAMEL; Protocol Stop: 09/28/23 20:59 Last Admin: 08/29/23 22:53 Dose: 62.5 mg Dextrose (Dextrose 50% 50 Ml Syringe) 25 - 50 ml IV UD PRN; Protocol PRN Reason: Hypoglycemia Protocol Stop: 09/05/23 21:53 Enoxaparin Sodium (Enoxaparin Inj 40 Mg/0.4 Ml Syr) 40 mg SQ Q24H [facility] Stop: 09/11/23 13:59 Last Admin: 08/29/23 15:30 Dose: 40 mg Enteral Nutritional Formula (Fibersource Hn 1.2 German 1000 Ml Bag) 1,000 ml NG .See Protocol JAMEL; Protocol Stop: 09/18/23 11:29 Last Admin: 08/29/23 19:42 Dose: 1,000 ml Fluconazole (Fluconazole Susp 100 Mg/2.5 Ml Udp) 100 mg PO QAM [facility] Stop: 08/31/23 08:59 Last Admin: 08/30/23 09:33 Dose: Not Given Fluticasone Propionate (Fluticasone Propionate Na Spr 16 Gm Btl) 2 sprays NA DAILY [facility] Stop: 09/09/23 08:59 Last Admin: 08/30/23 09:30 Dose: 2 sprays Glucagon (Glucagon For Inj 1 Mg Vial) 1 mg SQ UD PRN; Protocol PRN Reason: Hypoglycemia Protocol Stop: 09/05/23 21:53 Glucose (Glucose 40% Gel 15 Gm Tube) 15 - 30 gm PO UD PRN; Protocol PRN Reason: Hypoglycemia Protocol Stop: 09/05/23 21:53 Glucose (Glucose 10 Tab/Tube) 4 - 8 tab PO UD PRN; Protocol PRN Reason: Hypoglycemia Treatment Stop: 09/05/23 21:53 Glycerin (Glycerin Adult 12 Supp/Box Supp) 1 supp NE DAILY [facility] Stop: 09/24/23 08:59 Last Admin: 08/30/23 09:31 Dose: 1 supp Thiamine HCl 100 mg/ Syringe 10 mls @ 2 mls/min IV DAILY [facility] Stop: 09/11/23 08:59 Last Admin: 08/30/23 09:32 Dose: 2 mls/min Pantoprazole Sodium 40 mg/ (Syringe) 10 mls @ 5 mls/min IV DAILY [facility] Stop: 09/11/23 09:59 Last Admin: 08/30/23 09:28 Dose: 5 mls/min Dextrose/Sodium Chloride (D5w And Nss) 1,000 mls @ 75 mls/hr IV .[id number] [facility] Stop: 09/16/23 21:14 Last Infusion: 08/18/23 12:26 Dose: Infused Ertapenem 1,000 mg/ Syringe 10 mls @ 2 mls/min IV DAILY [facility] Stop: 09/07/23 11:29 Last Admin: 08/30/23 09:32 Dose: 2 mls/min Insulin Aspart (Insulin Aspart Per Unit Charge) 0 units SC Q6 [facility] Stop: 09/18/23 11:59 Last Admin: 08/30/23 12:06 Dose: 1 units Lactulose (Lactulose Syrup 20 Gm/30 Ml Udc) 20 gm PO BID [facility] Stop: 09/06/23 09:44 Last Admin: 08/30/23 09:29 Dose: 20 gm Levothyroxine Sodium (Levothyroxine Sodium 50 Mcg Tablet) 50 mcg PO DAILYBB [facility] Stop: 10/02/23 06:29 Lisinopril (Lisinopril 20 Mg Tab) 20 mg PO QAM [facility] Stop: 09/19/23 15:59 Last Admin: 08/30/23 09:29 Dose: 20 mg Metoprolol Succinate (Metoprolol Succ 50mg Ext Rel Tab) 50 mg PO QAM [facility] Stop: 09/22/23 08:59 Last Admin: 08/30/23 09:29 Dose: 50 mg Miscellaneous (Carbohydrates For Hypoglycemia ) 15 - 30 gm PO UD PRN PRN Reason: Hypoglycemia Protocol Stop: 09/05/23 21:53 Polyethylene Glycol (Polyethylene (Miralax) 17 Gm Pack) 17 gm PO TID [facility] Stop: 09/25/23 19:29 Last Admin: 08/30/23 09:29 Dose: 17 gm Senna/Docusate Sodium (Docusate Sodium/Senna 50/8.6mg Tab) 1 tab PO BID [facility] Stop: 09/24/23 08:59 Last Admin: 08/30/23 09:28 Dose: 1 tab Sterile Water (Tube Feeding Water Flush) 30 ml NG Q4H [facility] Stop: 09/18/23 11:29 Last Admin: 08/30/23 12:41 Dose: Not Given (3) Aspiration pneumonia Laterality: bilateral
[2023-08-30] MEDS ORDERED: PHARMACY GLYCEMIC MGMT CONSULT PRN (17:09)
[2023-08-30] MEDS: INSULIN ASPART PER UNIT CHARGE SC SCH ×2 (20:42→21:37)
[2023-08-30] MEDS: ACETAMINOPHEN 325 MG TAB PO PRN (22:07)
[2023-08-31 07:14] LABS: BUN Creatinine Ratio 36.1 (10-20); Calcium 8.7 mg/dl (8.6-10.3); Creatinine Clr Calc Pharmacy 110.1 ml/min; Magnesium 1.8 mg/dl (1.7-2.4); Phosphorus 4.3 mg/dl (2.5-4.9); Potassium 3.9 mmol/L (3.5-5.1)
--- NOTE | 2023-08-31 08:11 | Hospitalist Progress Note ---
Date of Service August 31, 2023 Assessment & Plan (1) Stercoral colitis: (2) Constipation, chronic: (3) Full code status: (4) Aspiration pneumonia: (5) On mechanically assisted ventilation: (6) Acute respiratory failure: Plan Pt is a 72yoF with PMHx significant for HTN, HLD, DMII, hypothyroidism, Hx of brain tumor s/p partial resection, schizophrenia, prior migraine, chronic anemia, recurrent UTIs, urinary incontinence and urinary bladder diverticulum presented after being found down and minimally responsive at home. Patient was admitted to the ICU for management and evaluation of septic shock. Was downgraded and re-intubated in the ICU on 08/11. Acute respiratory failure requiring mechanical ventilation On admission, was secondary to severe sepsis above, requiring intubation Vent management per ICU, pt extubated on 08/08 On Aug 09- pt developed acute respiratory failure once more - Pt with increasing oxygen requirement. - Chest xray with bilateral opacities, pneumonia (?possible aspiration), procalcitonin elevated >34. -Was on hi emy oxygen, pt in restraints. -Pulmonology previously consulted- appreciate recs. -Diuresing with IV Lasix. -Transferred to ICU once more on 08/11 Transferred back to the ICU on 08/11 -was on bipap and re-intubated on 08/11 -bronch also done on 08/11 with cultures obtained and currently growing ryan. Noted mucoid impaction in RLL. -was on propofol and fentanyl for sedation -extubated once more on 08/15, currently on RA Cognitive Impairment Schizophrenia Acute Agitation/Delirium Required 24 hour support previously, relies on assistance of two care givers MAINTENA[employer]CE [employer] On clozapine, cymbalta, gabapentin at home, all held Pt pulling at lines and more agitated on 08/09 -will re-start home clozapine, per recs needs to titrated up slowly if held for more than 48hrs due to risk of bradycardia, hypotension -pt's home dose of clozapine 50mg qAM, 300mg qPM -clozapine restart on 08/10 at 12.5mg qAM, titrate dose up to home dosing -> now on hold, psych consulted -will hold off on restarting sedating/other meds above (gabapentin, cymbalta) Delirium precautions. Head CT as per ICU,negative for any acute findings Pt was treated with precedex in the ICU and that was dc on 08/13. Psychiatry subsequently consulted -resuming clorazil at this time, slowly. Currently at 75 mg, appreciate psych recs. -trial of Ativan 1mg on 08/23 -Head imaging pending until pt more stable to be in scanner/laying flat without concern for aspiration Neurology also consulted - last time seen by Dr. Cordova on 08/16 - EEG August 07 showed generalized slowing from encephalopathy but no epileptiform activity. -The patient also has a history of schizophrenia and is on Clozaril -Recommendations: 1. Now that she is extubated, increase activity as able, include physical, occupational, and speech therapy. 2. If the patient does not have a history of chronic left-sided weakness, consider MRI of the brain with and without contrast when more clinically stable. Fever Complicated UTI Pt with fever in early AM on 08/26 -UA suggestive of infection, urine Cx growing ESBL E.coli . Was started on Aztreonam, switched to Ertapenem on 08/28 (Day #4) -c diff negative with overflow diarrhea noted on 08/26 -ID consult for urine cx results, days of rx placed-appreciate recs Pt currently afebrile Anorexia Severe Malnutrition Adult failure to thrive Pt reportedly was not taking PO, not opening mouth NGT tube placed for nutritional needs (08/19) and started on feeds Has been receiving some meds orally, consider trial of po food intake -speech eval on 08/24 noted: pt a bit more sleepy -speech recommending permanent feeding option such as PEG -GI consult placed on 08/25 for possible PEG tube placement -consider PEG after workup and Rx of fever on 08/26 Consider PEG tube placement once more stable otherwise - pt started to eat, plan to remove NGT (if pt needs NGT again will need to be placed in another nare) NGT removed Severe constipation Stercoral Colitis CT Abd/pelvis showing significant stool burden on admission On lactulose, received enemas Reportedly pt had many BMs before General surgery consulted- appreciate recs -recommending to continue with bowel regimen, consider suppositories if pt unable to tolerate PO Currently resolved, cont. to closely monitor Bowel regimen resumed, on a scheduled basis with daily stool softener and lactulose BID dosing. Continue to monitor BM -KUB on 08/26 noting persistent large or severe amount of well-formed stool again seen throughout the colon and rectum. -reports of loose stool on 08/26, likely overflow constipation -BOWEL REGIMEN: lactulose 20mg BID + glycerin suppository daily + docusate/senna BID + miralax scheduled TID -GI recommending daily miralax through PEG once placed - pt is having BMs Septic shock-POA Pt was hypotensive on admission, requiring ICU admission Required pressor support which has since been discontinued. UA repeatedly without signs of infection, urine Cx with NGTD Chest XR with no signs of infection, biofire negative CT abd/pelvis with suggestion of stercoral colitis, bowel perforation less likely/ruled out Blood Cx x1 grew alpha strep, ?contaminant Was treated with Vanc/Zosyn. 08/10- pt with increased oxygen requirement, chest xray with noted possible pneumonia (also fluid overload), procal newly elevated. Pulmonology consulted- pt switched to meropenem for antibiotic coverage. Repeat Blood Cultures with NGTD. Pt completed abx treatment while hospitalized. Currently resolved. Oral ryan/ ? poss. ryan esophagitis Patient does not follow commands and does not open her mouth when asked. However she yawned several times, and there is a visible white plaque on her tongue. Nystatin ordered however difficult for nurses to actually apply nystatin as patient does not follow commands, does not open her mouth when asked. Started fluconazole. Cont. to monitor. FULL CODE STATUS On Aug 10, 2023, advised by CM that there is a rastafari contact who might be able to weigh in on code discussion given pt has no known family with whom she is in contact to assist with her decisions during critical times. Listed contact in the chart is a Caregiver from an agency and does not want to be responsible for making those decisions for the pt. Mr. Weston Archibald [phone] was contacted about 4:45PM as advised by Case Management. He states that his only contact with the patient was visiting on behalf of the rastafari. Would not describe himself as a friend. Notes that he was advised by someone in the medical field that this should likely go to the Ethics committee. States that he is concerned about what the law states in terms of being able to speak on her behalf. Does note in his conversations with the patient that she has always wanted to be well and "go home" (he makes the distinction not her heavenly home) so he would assume that she wants heroic measures done. States that he has been at [facility] in the past and has visited pts who have been here for months and states that he believes this is what June would want as well. Next steps currently pending. Appreciate CM assistance. GOC discussions to be continued, still full code. Hypothyroidism Levothyroxine resumed, continue Hypertension Held home antihypertensive while patient was on vasopressors BP currently trending back up Was on iv metoprolol, home po metoprolol resumed Home lisinopril was previously resumed Home amlodipine resumed as well. Continue to monitor HLD holding statin DMII Hold home metformin Recurrent UTI Continue home methenamine when able to take po Recurrent migraines Continue home riboflavin Chronic normocytic anemia Hgb baseline ~10, stable Monitor CBC Diet: currently on tube feeds DVT prophylaxis: Lovenox SQ Dispo: PT/OT ordered, pt has caregivers CODE STATUS: Pt's listed contact in chart was contacted on 08/09 to discuss code status. She states that she works with an agency and is pt's caregiver but is not equipped nor does she want the responsibility of making life/ decisions for pt. She states pt has no POA and is estranged from living family, a sister with whom she was in contact passed recently. CM aware. Admission and Anticipated Discharge Date Admission Date: August 06, 2023 Subjective Pt seen in follow up of hypoxic resp. failure, was initially intubated on admission and then required re-intubation during her hosp. stay Initially treated for severe constipation, poss. perf. - this was ruled out, pt seen by gen. surgery and having BMs - however needing bowel regimen Then managed in ICU for pulm. edema, poss. pna Pt extubated Patient was not following commands, was nonverbal. NGT tube placed on (08/19/23) to provide nutrition. Psychiatry following closely - started clozapine - currently on 75 HS Currently also treated for ESBL E. coli Patient is now more awake, she is able to say "thank you", or answer some simple questions. She started to eat. NG tube removed yesterday (). Review of Systems Review of Systems: All systems reviewed & are unremarkable except as noted in Subjective Physical Exam Physical Exam: General: sitting up in bed in NAD Neuro/ Psych: awake, + eye contact, able to answer some simple questions HEENT: NC/AT, feeding tube in nares CV: RRR Resp:no increased effort of breathing Abdomen: soft Extremities:waffle boots lower extremities bilaterally. Results & Data Results & Data Vital Signs (Past 12 Hours) Vital Signs Temp Pulse Pulse Resp BP Pulse Ox O2 Del Method 08/31/23 03:57 36.6 C 69 18 151/67 H 98 Room Air 08/31/23 00:00 70 08/30/23 22:52 36.8 C 66 16 122/64 99 Room Air Laboratory Results 08/31/23 08/31/23 08/31/23 Range/Units 07:34 06:11 05:38 Sodium 138 (136-145) mmol/L Potassium 3.9 (3.5-5.1) mmol/L Chloride 102 (98-107) mmol/L Carbon Dioxide 27 (21-32) mmol/L Anion Gap 9 (3-11) BUN 13 (6-23) mg/dl Creatinine 0.36 L (0.6-1.2) mg/dl Est Cr Clr Drug Dosing 110.1 ml/min Est GFR ( Amer) 124.0 ml/min Est GFR (Non-Af Amer) 107.0 ml/min BUN/Creatinine Ratio 36.1 H (10-20) Glucose 127 H (70-99(Fasting)) mg/dl POC Glucose 148 H 126 H (70-99) mg/dl Calcium 8.7 (8.6-10.3) mg/dl Phosphorus 4.3 (2.5-4.9) mg/dl Magnesium 1.8 (1.7-2.4) mg/dl 08/30/23 08/30/23 08/30/23 Range/Units 20:38 18:24 16:15 Sodium (136-145) mmol/L Potassium (3.5-5.1) mmol/L Chloride (98-107) mmol/L Carbon Dioxide (21-32) mmol/L Anion Gap (3-11) BUN (6-23) mg/dl Creatinine (0.6-1.2) mg/dl Est Cr Clr Drug Dosing ml/min Est GFR ( Amer) ml/min Est GFR (Non-Af Amer) ml/min BUN/Creatinine Ratio (10-20) Glucose (70-99(Fasting)) mg/dl POC Glucose 129 H 145 H 97 (70-99) mg/dl Calcium (8.6-10.3) mg/dl Phosphorus (2.5-4.9) mg/dl Magnesium (1.7-2.4) mg/dl 08/30/23 Range/Units 12:00 Sodium (136-145) mmol/L Potassium (3.5-5.1) mmol/L Chloride (98-107) mmol/L Carbon Dioxide (21-32) mmol/L Anion Gap (3-11) BUN (6-23) mg/dl Creatinine (0.6-1.2) mg/dl Est Cr Clr Drug Dosing ml/min Est GFR ( Amer) ml/min Est GFR (Non-Af Amer) ml/min BUN/Creatinine Ratio (10-20) Glucose (70-99(Fasting)) mg/dl POC Glucose 170 H (70-99) mg/dl Calcium (8.6-10.3) mg/dl Phosphorus (2.5-4.9) mg/dl Magnesium (1.7-2.4) mg/dl Medications Administered Current Inpatient Medications Acetaminophen (Acetaminophen 325 Mg Tab) 650 mg PO Q4H PRN PRN Reason: Pain or Fever Stop: 09/29/23 21:47 Last Admin: 08/31/23 07:46 Dose: 650 mg Amlodipine Besylate (Amlodipine Besylate 5 Mg Tab) 5 mg PO DAILY JAMEL Stop: 09/22/23 08:59 Last Admin: 08/31/23 08:00 Dose: 5 mg Clozapine (Clozapine 25 Mg Tab) 62.5 mg PO HS JAMEL; Protocol Stop: 09/28/23 20:59 Last Admin: 08/30/23 21:44 Dose: 62.5 mg Dextrose (Dextrose 50% 50 Ml Syringe) 25 - 50 ml IV UD PRN; Protocol PRN Reason: Hypoglycemia Protocol Stop: 09/05/23 21:53 Enoxaparin Sodium (Enoxaparin Inj 40 Mg/0.4 Ml Syr) 40 mg SQ Q24H JAMEL Stop: 09/11/23 13:59 Last Admin: 08/30/23 16:19 Dose: 40 mg Fluconazole (Fluconazole Susp 100 Mg/2.5 Ml Udp) 100 mg PO QAM JAMEL Stop: 08/31/23 08:59 Last Admin: 08/30/23 09:33 Dose: Not Given Fluticasone Propionate (Fluticasone Propionate Na Spr 16 Gm Btl) 2 sprays NA DAILY JAMEL Stop: 09/09/23 08:59 Last Admin: 08/31/23 07:59 Dose: 2 sprays Glucagon (Glucagon For Inj 1 Mg Vial) 1 mg SQ UD PRN; Protocol PRN Reason: Hypoglycemia Protocol Stop: 09/05/23 21:53 Glucose (Glucose 40% Gel 15 Gm Tube) 15 - 30 gm PO UD PRN; Protocol PRN Reason: Hypoglycemia Protocol Stop: 09/05/23 21:53 Glucose (Glucose 10 Tab/Tube) 4 - 8 tab PO UD PRN; Protocol PRN Reason: Hypoglycemia Treatment Stop: 09/05/23 21:53 Glycerin (Glycerin Adult 12 Supp/Box Supp) 1 supp VT DAILY JAMEL Stop: 09/24/23 08:59 Last Admin: 08/31/23 07:59 Dose: 1 supp Thiamine HCl 100 mg/ Syringe 10 mls @ 2 mls/min IV DAILY JAMEL Stop: 09/11/23 08:59 Last Admin: 08/31/23 08:01 Dose: 2 mls/min Pantoprazole Sodium 40 mg/ (Syringe) 10 mls @ 5 mls/min IV DAILY JAMEL Stop: 09/11/23 09:59 Last Admin: 08/31/23 08:00 Dose: 5 mls/min Dextrose/Sodium Chloride (D5w And Nss) 1,000 mls @ 75 mls/hr IV .[id number] JAMEL Stop: 09/16/23 21:14 Last Infusion: 08/18/23 12:26 Dose: Infused Ertapenem 1,000 mg/ Syringe 10 mls @ 2 mls/min IV DAILY JAMEL Stop: 09/07/23 11:29 Last Admin: 08/31/23 08:04 Dose: 2 mls/min Lactulose (Lactulose Syrup 20 Gm/30 Ml Udc) 20 gm PO BID JAMEL Stop: 09/06/23 09:44 Last Admin: 08/31/23 07:59 Dose: 20 gm Levothyroxine Sodium (Levothyroxine Sodium 50 Mcg Tablet) 50 mcg PO DAILYBB JAMEL Stop: 10/02/23 06:29 Lisinopril (Lisinopril 20 Mg Tab) 20 mg PO QAM [facility] Stop: 09/19/23 15:59 Last Admin: 08/31/23 08:00 Dose: 20 mg Metoprolol Succinate (Metoprolol Succ 50mg Ext Rel Tab) 50 mg PO QAM [facility] Stop: 09/22/23 08:59 Last Admin: 08/31/23 08:00 Dose: 50 mg Miscellaneous (Carbohydrates For Hypoglycemia ) 15 - 30 gm PO UD PRN PRN Reason: Hypoglycemia Protocol Stop: 09/05/23 21:53 Miscellaneous Information (Pharmacy Glycemic Mgmt Consult) 1 each N/A UD PRN; Protocol PRN Reason: Consult Stop: 09/29/23 17:08 Polyethylene Glycol (Polyethylene (Miralax) 17 Gm Pack) 17 gm PO TID [facility] Stop: 09/25/23 19:29 Last Admin: 08/31/23 08:02 Dose: 17 gm Senna/Docusate Sodium (Docusate Sodium/Senna 50/8.6mg Tab) 1 tab PO BID [facility] Stop: 09/24/23 08:59 Last Admin: 08/31/23 08:04 Dose: Not Given (4) Aspiration pneumonia Laterality: bilateral
[2023-08-31] MEDS: INSULIN ASPART PER UNIT CHARGE SC SCH (12:10)
--- NOTE | 2023-08-31 13:49 | Psychiatric Progress Note ---
Date of Service August 31, 2023 Impression / Recommendations Impression As per initial consult: 72 yo female with remote hx of schizophrenia maintained on same dose of clozaril for what appears to be 20+ years. Unclear last psychotic symptoms and complicated by onset of dementia with intermittent AMS. Review of chart reveals gradual increase in falls, dizziness, and severe constipation. Unclear how much due to medical illness vs. possible clozaril toxicity given no change in dose with age, etc. Unclear if siallorhea at baseline and if that could contribute to aspiration risk. Given risks of orthostasis, alter seizure thresshold, paralytic ileus, PE, etc in patients on clozaril I feel the risks outweigh the immediate benefits of retitrating while still intubated. Continuing to present nonverbal---differential includes aphasia due to neurologic event, atypical catatonia, and/or severe abulia due to negative symptom of schizophrenia. Ativan challenge was not helpful. This may mean that her issue is less likely to be catatonia. We will slowly titrate the clozapine up, but we will not approach the high dose she was on before admission. It is extremely unlikely that this low dose of clozapine would be causing neuroleptic malignant syndrome (NMS) so it is very unlikely the temperature of 38.0 C is related in any way to the antipsychotic. Overall, I spent a total of 24 minutes with this case, including review of chart, coordination with nursing, coordination of care with hospitalist service, and documentation. 08/28/23: Today is the second day that we are seeing some sedations. Otherwise, she seems about the same as she has every day that I have seen her this week. 08/29/23: Obviously, we are seeing a big improvement with her now being able to speak some. I suppose it is possible that this was a catatonia throughout the last week. It is also nice to see the brighter affect. 08/30/23: Patient seems to be slowly improving and is interacting more with her environment. I am worried about some sedation from the clozapine. 08/31/23: It seems like we are seeing more and more improvement daily. She does not seem so sedated and is much more interactive. She is now able to eat food. (1) Schizophrenia: (2) Acute respiratory failure: (3) Aspiration pneumonia: (4) Constipation, chronic: (5) Encephalopathy acute: Plan Today we will increase clozapine to 50 mg. Given her medical issues and age, we we will continue to go very slowly. 08/28/23: I am not going to change the clozapine for the next day or 2 at least. We will continue to follow her and make sure were not causing problems with her medication. I am not seeing any evidence that she is acutely psychotic currently but we will continue to watch this closely. 08/29/23: I am going to increase the clozapine 1 more step to 62.5 mg nightly. I discussed the case with Dr. Cagle. Hopefully, we will continue to see more improvement over time. If she retreats back into what we think is catatonia, I think I will be more aggressive with the lorazepam to see if we can get her to come out of it that way. Another thing to consider if lorazepam does not help would be electroconvulsive therapy. 08/30/23: I am going to leave the clozapine alone today and not change it. I discussed the case with Dr. Cagle. Hopefully, we will continue to see more improvement. 08/31/23: I am going to nudge the clozapine 1 more step to [address] Tsang will be taking over care tomorrow and can determine if further titration is needed. I am very pleased with the results we have had so far and hopeful that she will continue to improve. Today I spent about 37 minutes on the case. This included meeting with the patient, discussing the case with the nurse, discussing the case with the attending, discussing the case with the mental health liaison nurse, orders, and documentation. Suicide Risk Level Suicide Risk Level: Low (q15 min observation checks) Interval History Identifying Information 72 yo female with a hx of schizophrenia, consult by hospitalist service for recs re: clozaril dosing. At the time of the initial consult she was intubated in the ICU. Chief Complaint "I am doing fine." Subjective Subjective Today I met with the patient, received nursing report, and reviewed her chart. I also discussed the case with the attending physician. June is in our hospital due to concerns of catatonia versus some type of neurovascular event. Staff say that she has been doing much better. She is eating better. The feeding tube has been pulled. She has been much more interactive and is speaking more. Were also seeing more smiles and affect. When I met with the patient, she answered several of my questions but occasionally would pause. She says that she is comfortable. She had a little bit of a headache. She is denying any suicidal thoughts. Physical Exam Psychiatric The patient was alert and cooperative. Her eye contact was good. She was clean but is needing cares from nursing staff. Speech was normal although slow and not very spontaneous. Mood was described as "fine." Affect is still restricted but brightens at times. Thought process is sluggish. There was no evidence of any hallucinations or delusions. She denied suicidal thoughts. Memory and concentration seem poor. No abnormal movements were seen; she is slow and is not moving much spontaneously. I did not evaluate her gait. Insight and judgment are still fairly poor. Vital Signs (Past 24 Hours) Last Vital Signs Temp 36.6 C 08/31/23 11:00 Pulse 66 08/31/23 11:00 Resp 16 08/31/23 11:00 BP 144/73 H 08/31/23 11:00 Pulse Ox 100 08/31/23 11:00 O2 Del Method Room Air 08/31/23 11:00 O2 Flow Rate 35 08/13/23 20:00 FiO2 21 08/17/23 04:17 Results & Data ([facility]) Laboratory Results Laboratory Results - last 24 hr 08/30/23 08/30/23 08/30/23 16:15 18:24 20:38 Sodium Potassium Chloride Carbon Dioxide Anion Gap BUN Creatinine Est Cr Clr Drug Dosing Est GFR ( Amer) Est GFR (Non-Af Amer) BUN/Creatinine Ratio Glucose POC Glucose 97 145 H 129 H Calcium Phosphorus Magnesium 08/31/23 08/31/23 08/31/23 05:38 06:11 07:34 Sodium 138 Potassium 3.9 Chloride 102 Carbon Dioxide 27 Anion Gap 9 BUN 13 Creatinine 0.36 L Est Cr Clr Drug Dosing 110.1 Est GFR ( Amer) 124.0 Est GFR (Non-Af Amer) 107.0 BUN/Creatinine Ratio 36.1 H Glucose 127 H POC Glucose 126 H 148 H Calcium 8.7 Phosphorus 4.3 Magnesium 1.8 08/31/23 11:35 Sodium Potassium Chloride Carbon Dioxide Anion Gap BUN Creatinine Est Cr Clr Drug Dosing Est GFR ( Amer) Est GFR (Non-Af Amer) BUN/Creatinine Ratio Glucose POC Glucose 123 H Calcium Phosphorus Magnesium Current Inpatient Medications Current Inpatient Medications: Current Inpatient Medications Acetaminophen (Acetaminophen 325 Mg Tab) 650 mg PO Q4H PRN PRN Reason: Pain or Fever Stop: 09/29/23 21:47 Last Admin: 08/31/23 07:46 Dose: 650 mg Amlodipine Besylate (Amlodipine Besylate 5 Mg Tab) 5 mg PO DAILY [facility] Stop: 09/22/23 08:59 Last Admin: 08/31/23 08:00 Dose: 5 mg Clozapine (Clozapine 25 Mg Tab) 62.5 mg PO HS JAMEL; Protocol Stop: 09/28/23 20:59 Last Admin: 08/30/23 21:44 Dose: 62.5 mg Dextrose (Dextrose 50% 50 Ml Syringe) 25 - 50 ml IV UD PRN; Protocol PRN Reason: Hypoglycemia Protocol Stop: 09/05/23 21:53 Enoxaparin Sodium (Enoxaparin Inj 40 Mg/0.4 Ml Syr) 40 mg SQ Q24H [facility] Stop: 09/11/23 13:59 Last Admin: 08/30/23 16:19 Dose: 40 mg Fluticasone Propionate (Fluticasone Propionate Na Spr 16 Gm Btl) 2 sprays NA DAILY [facility] Stop: 09/09/23 08:59 Last Admin: 08/31/23 07:59 Dose: 2 sprays Glucagon (Glucagon For Inj 1 Mg Vial) 1 mg SQ UD PRN; Protocol PRN Reason: Hypoglycemia Protocol Stop: 09/05/23 21:53 Glucose (Glucose 40% Gel 15 Gm Tube) 15 - 30 gm PO UD PRN; Protocol PRN Reason: Hypoglycemia Protocol Stop: 09/05/23 21:53 Glucose (Glucose 10 Tab/Tube) 4 - 8 tab PO UD PRN; Protocol PRN Reason: Hypoglycemia Treatment Stop: 09/05/23 21:53 Glycerin (Glycerin Adult 12 Supp/Box Supp) 1 supp MS DAILY [facility] Stop: 09/24/23 08:59 Last Admin: 08/31/23 07:59 Dose: 1 supp Thiamine HCl 100 mg/ Syringe 10 mls @ 2 mls/min IV DAILY [facility] Stop: 09/11/23 08:59 Last Admin: 08/31/23 08:01 Dose: 2 mls/min Pantoprazole Sodium 40 mg/ (Syringe) 10 mls @ 5 mls/min IV DAILY [facility] Stop: 09/11/23 09:59 Last Admin: 08/31/23 08:00 Dose: 5 mls/min Dextrose/Sodium Chloride (D5w And Nss) 1,000 mls @ 75 mls/hr IV .[id number] [facility] Stop: 09/16/23 21:14 Last Infusion: 08/18/23 12:26 Dose: Infused Ertapenem 1,000 mg/ Syringe 10 mls @ 2 mls/min IV DAILY [facility] Stop: 09/07/23 11:29 Last Admin: 08/31/23 08:04 Dose: 2 mls/min Insulin Aspart (Insulin Aspart Per Unit Charge) 0 units SC ACHS [facility] Stop: 09/30/23 11:29 Last Admin: 08/31/23 12:10 Dose: 1 units Lactulose (Lactulose Syrup 20 Gm/30 Ml Udc) 20 gm PO BID [facility] Stop: 09/06/23 09:44 Last Admin: 08/31/23 07:59 Dose: 20 gm Levothyroxine Sodium (Levothyroxine Sodium 50 Mcg Tablet) 50 mcg PO DAILYBB [facility] Stop: 10/02/23 06:29 Lisinopril (Lisinopril 20 Mg Tab) 20 mg PO QAM [facility] Stop: 09/19/23 15:59 Last Admin: 08/31/23 08:00 Dose: 20 mg Metoprolol Succinate (Metoprolol Succ 50mg Ext Rel Tab) 50 mg PO QAM [facility] Stop: 09/22/23 08:59 Last Admin: 08/31/23 08:00 Dose: 50 mg Miscellaneous (Carbohydrates For Hypoglycemia ) 15 - 30 gm PO UD PRN PRN Reason: Hypoglycemia Protocol Stop: 09/05/23 21:53 Miscellaneous Information (Pharmacy Glycemic Mgmt Consult) 1 each N/A UD PRN; Protocol PRN Reason: Consult Stop: 09/29/23 17:08 Polyethylene Glycol (Polyethylene (Miralax) 17 Gm Pack) 17 gm PO TID [facility] Stop: 09/25/23 19:29 Last Admin: 08/31/23 08:02 Dose: 17 gm Senna/Docusate Sodium (Docusate Sodium/Senna 50/8.6mg Tab) 1 tab PO BID [facility] Stop: 09/24/23 08:59 Last Admin: 08/31/23 08:04 Dose: Not Given (3) Aspiration pneumonia Laterality: bilateral
--- NOTE | 2023-08-31 13:55 | Pharmacy Report ---
Pharmacy Glycemic Short Note 2 - Date of Service August 31, 2023 - Glycemic Short BSG Results (Last 24 hours): 08/30/23 08/30/23 08/30/23 16:15 18:24 20:38 Glucose POC Glucose 97 145 H 129 H 08/31/23 08/31/23 08/31/23 05:38 06:11 07:34 Glucose 127 H POC Glucose 126 H 148 H 08/31/23 11:35 Glucose POC Glucose 123 H OUTPATIENT ANTIDIABETIC REGIMEN: * Metformin 500 mg QD * A1c 5.9% 05/26/23 ASSESSMENT: * Consulted for patient last evening as tube feeds were discontinued and started diet * Will trial carb ratio of 20 ,remove if BSGs trend downward * BSG appear to be stable all <180 mg/dl in past 48 hours PLAN FOR INPATIENT GLYCEMIC CONTROL: * Hold outpatient oral diabetes medications * Basal insulin * HOLD * Bolus insulin * NovoLog per scale ACHS or Q6hrs while NPO * Goal Range: Low 120 mg/dL - High 150 mg/dL * Correction Factor: 35 mg/dL/unit * Nutritional / Prandial insulin per carb ratio of 1 unit per 20 grams CHO consumed
[2023-08-31] MEDS ORDERED: GLYCERIN ADULT 12 SUPP/BOX SUPP PR PRN (18:24)
[2023-08-31] MEDS: cloZAPine 25 MG TAB PO SCH (20:36)
--- NOTE | 2023-09-01 15:06 | Hospitalist Progress Note ---
Date of Service September 01, 2023 Assessment & Plan (1) Stercoral colitis: (2) Constipation, chronic: (3) Full code status: (4) Aspiration pneumonia: (5) On mechanically assisted ventilation: (6) Acute respiratory failure: Plan Pt is a 72yoF with PMHx significant for HTN, HLD, DMII, hypothyroidism, Hx of brain tumor s/p partial resection, schizophrenia, prior migraine, chronic anemia, recurrent UTIs, urinary incontinence and urinary bladder diverticulum presented after being found down and minimally responsive at home. Patient was admitted to the ICU for management and evaluation of septic shock. Was downgraded and re-intubated in the ICU on 08/11. Acute respiratory failure requiring mechanical ventilation On admission, was secondary to severe sepsis above, requiring intubation Vent management per ICU, pt extubated on 08/08 On Aug 09- pt developed acute respiratory failure once more - Pt with increasing oxygen requirement. - Chest xray with bilateral opacities, pneumonia (?possible aspiration), procalcitonin elevated >34. -Was on hi emy oxygen, pt in restraints. -Pulmonology previously consulted- appreciate recs. -Diuresing with IV Lasix. -Transferred to ICU once more on 08/11 Transferred back to the ICU on 08/11 -was on bipap and re-intubated on 08/11 -bronch also done on 08/11 with cultures obtained and currently growing ryan. Noted mucoid impaction in RLL. -was on propofol and fentanyl for sedation -extubated once more on 08/15, currently on RA Cognitive Impairment Schizophrenia Acute Agitation/Delirium Required 24 hour support previously, relies on assistance of two care givers PICKER/PULLER On clozapine, cymbalta, gabapentin at home, all held Pt pulling at lines and more agitated on 08/09 -will re-start home clozapine, per recs needs to titrated up slowly if held for more than 48hrs due to risk of bradycardia, hypotension -pt's home dose of clozapine 50mg qAM, 300mg qPM -clozapine restart on 08/10 at 12.5mg qAM, titrate dose up to home dosing -> now on hold, psych consulted -will hold off on restarting sedating/other meds above (gabapentin, cymbalta) Delirium precautions. Head CT as per ICU,negative for any acute findings Pt was treated with precedex in the ICU and that was dc on 08/13. Psychiatry subsequently consulted -resuming clorazil at this time, slowly. Currently at 75 mg, appreciate psych recs. -trial of Ativan 1mg on 08/23 -Head imaging pending until pt more stable to be in scanner/laying flat without concern for aspiration Neurology also consulted - last time seen by Dr. Cordova on 08/16 - EEG August 07 showed generalized slowing from encephalopathy but no epileptiform activity. -The patient also has a history of schizophrenia and is on Clozaril -Recommendations: 1. Now that she is extubated, increase activity as able, include physical, occupational, and speech therapy. 2. If the patient does not have a history of chronic left-sided weakness, consider MRI of the brain with and without contrast when more clinically stable. 08/31 Pt is now awake and also answers simple questions. Fever Complicated UTI Pt with fever in early AM on 08/26 -UA suggestive of infection, urine Cx growing ESBL E.coli . Was started on Aztreonam, switched to Ertapenem on 08/28 (Day #5) -c diff negative with overflow diarrhea noted on 08/26 -ID consult for urine cx results, days of rx placed-appreciate recs Pt currently afebrile Anorexia Severe Malnutrition Adult failure to thrive Pt reportedly was not taking PO, not opening mouth NGT tube placed for nutritional needs (08/19) and started on feeds Has been receiving some meds orally, consider trial of po food intake -speech eval on 08/24 noted: pt a bit more sleepy -speech recommending permanent feeding option such as PEG -GI consult placed on 08/25 for possible PEG tube placement -consider PEG after workup and Rx of fever on 08/26 Consider PEG tube placement once more stable otherwise - pt started to eat, plan to remove NGT (if pt needs NGT again will need to be placed in another nare) NGT removed Severe constipation Stercoral Colitis CT Abd/pelvis showing significant stool burden on admission On lactulose, received enemas Reportedly pt had many BMs before General surgery consulted- appreciate recs -recommending to continue with bowel regimen, consider suppositories if pt unable to tolerate PO Currently resolved, cont. to closely monitor Bowel regimen resumed, on a scheduled basis with daily stool softener and lactulose BID dosing. Continue to monitor BM -KUB on 08/26 noting persistent large or severe amount of well-formed stool again seen throughout the colon and rectum. -reports of loose stool on 08/26, likely overflow constipation -BOWEL REGIMEN: lactulose 20mg BID + glycerin suppository daily + docusate/senna BID + miralax scheduled TID -GI recommending daily miralax through PEG once placed - pt is having BMs Septic shock-POA Pt was hypotensive on admission, requiring ICU admission Required pressor support which has since been discontinued. UA repeatedly without signs of infection, urine Cx with NGTD Chest XR with no signs of infection, biofire negative CT abd/pelvis with suggestion of stercoral colitis, bowel perforation less likely/ruled out Blood Cx x1 grew alpha strep, ?contaminant Was treated with Vanc/Zosyn. 08/10- pt with increased oxygen requirement, chest xray with noted possible pneumonia (also fluid overload), procal newly elevated. Pulmonology consulted- pt switched to meropenem for antibiotic coverage. Repeat Blood Cultures with NGTD. Pt completed abx treatment while hospitalized. Currently resolved. Oral ryan/ ? poss. ryan esophagitis Patient does not follow commands and does not open her mouth when asked. However she yawned several times, and there is a visible white plaque on her tongue. Nystatin ordered however difficult for nurses to actually apply nystatin as patient does not follow commands, does not open her mouth when asked. Started fluconazole. Cont. to monitor. FULL CODE STATUS On Aug 10, 2023, advised by CM that there is a [facility] contact who might be able to weigh in on code discussion given pt has no known family with whom she is in contact to assist with her decisions during critical times. Listed contact in the chart is a Caregiver from an agency and does not want to be responsible for making those decisions for the pt. Mr. Weston Archibald [phone] was contacted about 4:45PM as advised by Case Management. He states that his only contact with the patient was visiting on behalf of the samaritan. Would not describe himself as a friend. Notes that he was advised by someone in the medical field that this should likely go to the Ethics committee. States that he is concerned about what the law states in terms of being able to speak on her behalf. Does note in his conversations with the patient that she has always wanted to be well and "go home" (he makes the distin ction not her heavenly home) so he would assume that she wants heroic measures done. States that he has been at [facility] in the past and has visited pts who have been here for months and states that he believes this is what June would want as well. Next steps currently pending. Appreciate CM assistance. GOC discussions to be continued, still full code. Hypothyroidism Levothyroxine resumed, continue Hypertension Held home antihypertensive while patient was on vasopressors BP currently trending back up Was on iv metoprolol, home PO metoprolol resumed Home lisinopril was previously resumed Home amlodipine resumed as well. Continue to monitor HLD holding statin DMII Hold home metformin Recurrent UTI Continue home methenamine when able to take po Recurrent migraines Continue home riboflavin Chronic normocytic anemia Hgb baseline ~10, stable Monitor CBC Diet: tube feeds -> pt now eating DVT prophylaxis: Lovenox SQ Dispo: PT/OT ordered, pt has caregivers CODE STATUS: Pt's listed contact in chart was contacted on 08/09 to discuss code status. She states that she works with an agency and is pt's caregiver but is not equipped nor does she want the responsibility of making life/ decisions for pt. She states pt has no POA and is estranged from living family, a sister with whom she was in contact passed recently. CM aware. Admission and Anticipated Discharge Date Admission Date: August 06, 2023 Subjective Pt seen in follow up of hypoxic resp. failure, was initially intubated on admission and then required re-intubation during her hosp. stay Initially treated for severe constipation, poss. perf. - this was ruled out, pt seen by gen. surgery and having BMs - however needing bowel regimen Then managed in ICU for pulm. edema, poss. pna Pt extubated Patient was not following commands, was nonverbal. NGT tube placed on (08/19/23) to provide nutrition. -> She started to eat. NG tube removed on (). Psychiatry following closely - started clozapine - currently on 75 HS Currently also treated for ESBL E. coli Patient is now more awake, she is able to answer simple questions. Review of Systems Review of Systems: All systems reviewed & are unremarkable except as noted in Subjective Physical Exam Physical Exam: General: sitting up in bed in NAD Neuro/ Psych: awake, + eye contact, able to answer some simple questions HEENT: NC/AT, feeding tube in nares CV: RRR Resp:no increased effort of breathing Abdomen: soft Extremities:waffle boots lower extremities bilaterally. Results & Data Results & Data Vital Signs (Past 12 Hours) Vital Signs Temp Pulse Pulse Resp BP Pulse Ox O2 Del Method 09/01/23 12:14 36.7 C 63 18 143/74 H 99 Room Air 09/01/23 08:08 36.9 C 75 18 121/58 L 97 Room Air 09/01/23 08:00 72 09/01/23 03:39 36.6 C 62 17 144/64 H Medications Administered Current Inpatient Medications Acetaminophen (Acetaminophen 325 Mg Tab) 650 mg PO Q4H PRN PRN Reason: Pain or Fever Stop: 09/29/23 21:47 Last Admin: 09/01/23 08:37 Dose: 650 mg Amlodipine Besylate (Amlodipine Besylate 5 Mg Tab) 5 mg PO DAILY [facility] Stop: 09/22/23 08:59 Last Admin: 09/01/23 08:27 Dose: 5 mg Clozapine (Clozapine 25 Mg Tab) 75 mg PO HS [facility]AMEL; Protocol Stop: 09/30/23 20:59 Last Admin: 08/31/23 20:36 Dose: 75 mg Dextrose (Dextrose 50% 50 Ml Syringe) 25 - 50 ml IV UD PRN; Protocol PRN Reason: Hypoglycemia Protocol Stop: 09/05/23 21:53 Enoxaparin Sodium (Enoxaparin Inj 40 Mg/0.4 Ml Syr) 40 mg SQ Q24H [facility] Stop: 09/11/23 13:59 Last Admin: 08/31/23 17:01 Dose: 40 mg Fluticasone Propionate (Fluticasone Propionate Na Spr 16 Gm Btl) 2 sprays NA DAILY [facility] Stop: 09/09/23 08:59 Last Admin: 09/01/23 08:26 Dose: 2 sprays Glucagon (Glucagon For Inj 1 Mg Vial) 1 mg SQ UD PRN; Protocol PRN Reason: Hypoglycemia Protocol Stop: 09/05/23 21:53 Glucose (Glucose 40% Gel 15 Gm Tube) 15 - 30 gm PO UD PRN; Protocol PRN Reason: Hypoglycemia Protocol Stop: 09/05/23 21:53 Glucose (Glucose 10 Tab/Tube) 4 - 8 tab PO UD PRN; Protocol PRN Reason: Hypoglycemia Treatment Stop: 09/05/23 21:53 Glycerin (Glycerin Adult 12 Supp/Box Supp) 1 supp HI DAILY PRN PRN Reason: Constipation Stop: 09/24/23 08:59 Thiamine HCl 100 mg/ Syringe 10 mls @ 2 mls/min IV DAILY [facility] Stop: 09/11/23 08:59 Last Admin: 09/01/23 08:30 Dose: 2 mls/min Pantoprazole Sodium 40 mg/ (Syringe) 10 mls @ 5 mls/min IV DAILY [facility] Stop: 09/11/23 09:59 Last Admin: 09/01/23 08:30 Dose: 5 mls/min Dextrose/Sodium Chloride (D5w And Nss) 1,000 mls @ 75 mls/hr IV .[id number] [facility] Stop: 09/16/23 21:14 Last Infusion: 08/18/23 12:26 Dose: Infused Ertapenem 1,000 mg/ Syringe 10 mls @ 2 mls/min IV DAILY [facility] Stop: 09/07/23 11:29 Last Admin: 09/01/23 08:30 Dose: 2 mls/min Insulin Aspart (Insulin Aspart Per Unit Charge) 0 units SC ACHS [facility] Stop: 09/30/23 11:29 Last Admin: 09/01/23 12:42 Dose: 1 units Lactulose (Lactulose Syrup 20 Gm/30 Ml Udc) 20 gm PO BID [facility] Stop: 09/06/23 09:44 Last Admin: 08/31/23 07:59 Dose: 20 gm Levothyroxine Sodium (Levothyroxine Sodium 50 Mcg Tablet) 50 mcg PO DAILYBB [facility] Stop: 10/02/23 06:29 Lisinopril (Lisinopril 20 Mg Tab) 20 mg PO QAM [facility] Stop: 09/19/23 15:59 Last Admin: 09/01/23 08:27 Dose: 20 mg Metoprolol Succinate (Metoprolol Succ 50mg Ext Rel Tab) 50 mg PO QAM [facility] Stop: 09/22/23 08:59 Last Admin: 09/01/23 08:26 Dose: 50 mg Miscellaneous (Carbohydrates For Hypoglycemia ) 15 - 30 gm PO UD PRN PRN Reason: Hypoglycemia Protocol Stop: 09/05/23 21:53 Miscellaneous Information (Pharmacy Glycemic Mgmt Consult) 1 each N/A UD PRN; Protocol PRN Reason: Consult Stop: 09/29/23 17:08 Polyethylene Glycol (Polyethylene (Miralax) 17 Gm Pack) 17 gm PO TID [facility] Stop: 09/25/23 19:29 Last Admin: 09/01/23 08:29 Dose: 17 gm Senna/Docusate Sodium (Docusate Sodium/Senna 50/8.6mg Tab) 1 tab PO BID [facility] Stop: 09/24/23 08:59 Last Admin: 09/01/23 08:30 Dose: 1 tab (4) Aspiration pneumonia Laterality: bilateral
[2023-09-02] MEDS: LEVOTHYROXINE SODIUM 50 MCG TABLET PO SCH (06:11)
--- NOTE | 2023-09-02 07:49 | Hospitalist Progress Note ---
Date of Service September 02, 2023 Assessment & Plan (1) Stercoral colitis: (2) Constipation, chronic: (3) Full code status: (4) Aspiration pneumonia: (5) On mechanically assisted ventilation: (6) Acute respiratory failure: Plan Pt is a 72yoF with PMHx significant for HTN, HLD, DMII, hypothyroidism, Hx of brain tumor s/p partial resection, schizophrenia, prior migraine, chronic anemia, recurrent UTIs, urinary incontinence and urinary bladder diverticulum presented after being found down and minimally responsive at home. Patient was admitted to the ICU for management and evaluation of septic shock. Was downgraded and re-intubated in the ICU on 08/11. Acute respiratory failure requiring mechanical ventilation On admission, was secondary to severe sepsis above, requiring intubation Vent management per ICU, pt extubated on 08/08 On Aug 09- pt developed acute respiratory failure once more - Pt with increasing oxygen requirement. - Chest xray with bilateral opacities, pneumonia (?possible aspiration), procalcitonin elevated >34. -Was on hi emy oxygen, pt in restraints. -Pulmonology previously consulted- appreciate recs. -Diuresing with IV Lasix. -Transferred to ICU once more on 08/11 Transferred back to the ICU on 08/11 -was on bipap and re-intubated on 08/11 -bronch also done on 08/11 with cultures obtained and currently growing ryan. Noted mucoid impaction in RLL. -was on propofol and fentanyl for sedation -extubated once more on 08/15, currently on RA Cognitive Impairment Schizophrenia Acute Agitation/Delirium Required 24 hour support previously, relies on assistance of two care givers [employer] On clozapine, cymbalta, gabapentin at home, all held Pt pulling at lines and more agitated on 08/09 -will re-start home clozapine, per recs needs to titrated up slowly if held for more than 48hrs due to risk of bradycardia, hypotension -pt's home dose of clozapine 50mg qAM, 300mg qPM -clozapine restart on 08/10 at 12.5mg qAM, titrate dose up to home dosing -> now on hold, psych consulted -will hold off on restarting sedating/other meds above (gabapentin, cymbalta) Delirium precautions. Head CT as per ICU,negative for any acute findings Pt was treated with precedex in the ICU and that was dc on 08/13. Psychiatry subsequently consulted -resuming clorazil at this time, slowly. Currently at 75 mg, appreciate psych recs. -trial of Ativan 1mg on 08/23 -Head imaging pending until pt more stable to be in scanner/laying flat without concern for aspiration Neurology also consulted - last time seen by Dr. Cordova on 08/16 - EEG August 07 showed generalized slowing from encephalopathy but no epileptiform activity. -The patient also has a history of schizophrenia and is on Clozaril -Recommendations: 1. Now that she is extubated, increase activity as able, include physical, occupational, and speech therapy. 2. If the patient does not have a history of chronic left-sided weakness, consider MRI of the brain with and without contrast when more clinically stable. Pt is now awake , interactive and also answers simple questions. Fever Complicated UTI Pt with fever in early AM on 08/26 -UA suggestive of infection, urine Cx growing ESBL E.coli . Was started on Aztreonam, switched to Ertapenem on 08/28 (Day #6) -c diff negative with overflow diarrhea noted on 08/26 -ID consult for urine cx results, days of rx placed-appreciate recs Pt currently afebrile Anorexia Severe Malnutrition Adult failure to thrive Pt reportedly was not taking PO, not opening mouth NGT tube placed for nutritional needs (08/19) and started on feeds Has been receiving some meds orally, consider trial of po food intake -speech eval on 08/24 noted: pt a bit more sleepy -speech recommending permanent feeding option such as PEG -GI consult placed on 08/25 for possible PEG tube placement -consider PEG after workup and Rx of fever on 08/26 Consider PEG tube placement once more stable otherwise - pt started to eat, plan to remove NGT (if pt needs NGT again will need to be placed in another nare) NGT removed Severe constipation Stercoral Colitis CT Abd/pelvis showing significant stool burden on admission On lactulose, received enemas Reportedly pt had many BMs before General surgery consulted- appreciate recs -recommending to continue with bowel regimen, consider suppositories if pt unable to tolerate PO Currently resolved, cont. to closely monitor Bowel regimen resumed, on a scheduled basis with daily stool softener and lactulose BID dosing. Continue to monitor BM -KUB on 08/26 noting persistent large or severe amount of well-formed stool again seen throughout the colon and rectum. -reports of loose stool on 08/26, likely overflow constipation -BOWEL REGIMEN: lactulose 20mg BID + glycerin suppository daily + docusate/senna BID + miralax scheduled TID -GI recommending daily miralax through PEG once placed - pt is having BMs Septic shock-POA Pt was hypotensive on admission, requiring ICU admission Required pressor support which has since been discontinued. UA repeatedly without signs of infection, urine Cx with NGTD Chest XR with no signs of infection, biofire negative CT abd/pelvis with suggestion of stercoral colitis, bowel perforation less likely/ruled out Blood Cx x1 grew alpha strep, ?contaminant Was treated with Vanc/Zosyn. 08/10- pt with increased oxygen requirement, chest xray with noted possible pneumonia (also fluid overload), procal newly elevated. Pulmonology consulted- pt switched to meropenem for antibiotic coverage. Repeat Blood Cultures with NGTD. Pt completed abx treatment while hospitalized. Currently resolved. Oral ryan/ ? poss. ryan esophagitis Patient does not follow commands and does not open her mouth when asked. How ever she yawned several times, and there is a visible white plaque on her tongue. Nystatin ordered however difficult for nurses to actually apply nystatin as patient does not follow commands, does not open her mouth when asked. Started fluconazole. Cont. to monitor. FULL CODE STATUS On Aug 10, 2023, advised by CM that there is a muslim contact who might be able to weigh in on code discussion given pt has no known family with whom she is in contact to assist with her decisions during critical times. Listed contact in the chart is a Caregiver from an agency and does not want to be responsible for making those decisions for the pt. Mr. Weston Archibald [phone] was contacted about 4:45PM as advised by Case Management. He states that his only contact with the patient was visiting on behalf of the muslim. Would not describe himself as a friend. Notes that he was advised by someone in the medical field that this should likely go to the Ethics committee. States that he is concerned about what the law states in terms of being able to speak on her behalf. Does note in his conversations with the patient that she has always wanted to be well and "go home" (he makes the distinction not her heavenly home) so he would assume that she wants heroic measures done. States that he has been at [facility] in the past and has visited pts who have been here for months and states that he believes this is what June would want as well. Next steps currently pending. Appreciate CM assistance. GOC discussions to be continued, still full code. Hypothyroidism Levothyroxine resumed, continue Hypertension Held home antihypertensive while patient was on vasopressors BP currently trending back up Was on iv metoprolol, home PO metoprolol resumed Home lisinopril was previously resumed Home amlodipine resumed as well. Continue to monitor HLD holding statin DMII Hold home metformin Recurrent UTI Continue home methenamine when able to take po Recurrent migraines Continue home riboflavin Chronic normocytic anemia Hgb baseline ~10, stable Monitor CBC Diet: tube feeds stopped as pt now eating DVT prophylaxis: Lovenox SQ Dispo: PT/OT ordered, pt has caregivers CODE STATUS: Pt's listed contact in chart was contacted on 08/09 to discuss code status. She states that she works with an agency and is pt's caregiver but is not equipped nor does she want the responsibility of making life/ decisions for pt. She states pt has no POA and is estranged from living family, a sister with whom she was in contact passed recently. CM aware. Admission and Anticipated Discharge Date Admission Date: August 06, 2023 Subjective Pt seen in follow up of hypoxic resp. failure, was initially intubated on admission and then required re-intubation during her hosp. stay Initially treated for severe constipation, poss. perf. - this was ruled out, pt seen by gen. surgery and having BMs - however needing bowel regimen Then managed in ICU for pulm. edema, poss. pna Pt extubated Patient was not following commands, was nonverbal. NGT tube placed on (08/19/23) to provide nutrition. -> She started to eat. NG tube removed on (). Psychiatry following closely - started clozapine - currently on 75 HS Currently also treated for ESBL E. coli Patient is now more awake, interactive, and she is able to answer simple questions. Review of Systems Review of Systems: All systems reviewed & are unremarkable except as noted in Subjective Physical Exam Physical Exam: General: sitting up in bed in NAD Neuro/ Psych: awake, + eye contact, able to answer some simple questions HEENT: NC/AT, feeding tube in nares CV: RRR Resp:no increased effort of breathing , ctab Abdomen: soft Extremities:waffle boots lower extremities bilaterally. Results & Data Results & Data Vital Signs (Past 12 Hours) Vital Signs Temp Pulse Pulse Resp BP Pulse Ox O2 Del Method 09/02/23 03:06 36.6 C 65 18 138/63 98 Room Air 09/01/23 23:19 63 09/01/23 22:53 36.8 C 66 18 140/66 98 Room Air Laboratory Results 09/02/23 09/02/23 09/02/23 Range/Units 11:07 07:43 07:19 WBC 2.86 L (4.8-10.8) K/ul RBC 3.79 L (4.20-5.40) M/uL Hgb 10.6 L (12.0-16.0) g/dl Hct 33.4 L (37.0-47.0) % MCV 88.1 (80.0-100.0) fL MCH 28.0 (25.0-34.0) pg MCHC 31.7 L (32.0-36.0) g/dL RDW Std Deviation 50.9 H (36.4-46.3) fL RDW Coeff of Cyn 15.8 H (11.5-14.5) % Plt Count 221 (130-400) K/uL MPV 10.9 (9.4-12.4) fL Sodium 139 (136-145) mmol/L Potassium 3.7 (3.5-5.1) mmol/L Chloride 106 (98-107) mmol/L Carbon Dioxide 26 (21-32) mmol/L Anion Gap 7 (3-11) BUN 12 (6-23) mg/dl Creatinine 0.32 L (0.6-1.2) mg/dl Est Cr Clr Drug Dosing 123.8 ml/min Est GFR ( Amer) 128.9 ml/min Est GFR (Non-Af Amer) 111.2 ml/min BUN/Creatinine Ratio 37.5 H (10-20) Glucose 135 H (70-99(Fasting)) mg/dl POC Glucose 123 H 123 H (70-99) mg/dl Calcium 8.4 L (8.6-10.3) mg/dl Phosphorus 4.2 (2.5-4.9) mg/dl Magnesium 1.8 (1.7-2.4) mg/dl 09/01/23 09/01/23 Range/Units 20:10 16:18 WBC (4.8-10.8) K/ul RBC (4.20-5.40) M/uL Hgb (12.0-16.0) g/dl Hct (37.0-47.0) % MCV (80.0-100.0) fL MCH (25.0-34.0) pg MCHC (32.0-36.0) g/dL RDW Std Deviation (36.4-46.3) fL RDW Coeff of Cyn (11.5-14.5) % Plt Count (130-400) K/uL MPV (9.4-12.4) fL Sodium (136-145) mmol/L Potassium (3.5-5.1) mmol/L Chloride (98-107) mmol/L Carbon Dioxide (21-32) mmol/L Anion Gap (3-11) BUN (6-23) mg/dl Creatinine (0.6-1.2) mg/dl Est Cr Clr Drug Dosing ml/min Est GFR ( Amer) ml/min Est GFR (Non-Af Amer) ml/min BUN/Creatinine Ratio (10-20) Glucose (70-99(Fasting)) mg/dl POC Glucose 129 H 90 (70-99) mg/dl Calcium (8.6-10.3) mg/dl Phosphorus (2.5-4.9) mg/dl Magnesium (1.7-2.4) mg/dl Medications Administered Current Inpatient Medications Acetaminophen (Acetaminophen 325 Mg Tab) 650 mg PO Q4H PRN PRN Reason: Pain or Fever Stop: 09/29/23 21:47 Last Admin: 09/01/23 19:26 Dose: 650 mg Amlodipine Besylate (Amlodipine Besylate 5 Mg Tab) 5 mg PO DAILY JAMEL Stop: 09/22/23 08:59 Last Admin: 09/01/23 08:27 Dose: 5 mg Clozapine (Clozapine 25 Mg Tab) 75 mg PO HS JAMEL; Protocol Stop: 09/30/23 20:59 Last Admin: 09/01/23 20:40 Dose: 75 mg Dextrose (Dextrose 50% 50 Ml Syringe) 25 - 50 ml IV UD PRN; Protocol PRN Reason: Hypoglycemia Protocol Stop: 09/05/23 21:53 Enoxaparin Sodium (Enoxaparin Inj 40 Mg/0.4 Ml Syr) 40 mg SQ Q24H [facility] Stop: 09/11/23 13:59 Last Admin: 09/01/23 16:56 Dose: 40 mg Fluticasone Propionate (Fluticasone Propionate Na Spr 16 Gm Btl) 2 sprays NA DAILY JAMEL Stop: 09/09/23 08:59 Last Admin: 09/01/23 08:26 Dose: 2 sprays Glucagon (Glucagon For Inj 1 Mg Vial) 1 mg SQ UD PRN; Protocol PRN Reason: Hypoglycemia Protocol Stop: 09/05/23 21:53 Glucose (Glucose 40% Gel 15 Gm Tube) 15 - 30 gm PO UD PRN; Protocol PRN Reason: Hypoglycemia Protocol Stop: 09/05/23 21:53 Glucose (Glucose 10 Tab/Tube) 4 - 8 tab PO UD PRN; Protocol PRN Reason: Hypoglycemia Treatment Stop: 09/05/23 21:53 Glycerin (Glycerin Adult 12 Supp/Box Supp) 1 supp DC DAILY PRN PRN Reason: Constipation Stop: 09/24/23 08:59 Thiamine HCl 100 mg/ Syringe 10 mls @ 2 mls/min IV DAILY JAMEL Stop: 09/11/23 08:59 Last Admin: 09/01/23 08:30 Dose: 2 mls/min Pantoprazole Sodium 40 mg/ (Syringe) 10 mls @ 5 mls/min IV DAILY JAMEL Stop: 09/11/23 09:59 Last Admin: 09/01/23 08:30 Dose: 5 mls/min Dextrose/Sodium Chloride (D5w And Nss) 1,000 mls @ 75 mls/hr IV .[id number] [facility] Stop: 09/16/23 21:14 Last Infusion: 08/18/23 12:26 Dose: Infused Ertapenem 1,000 mg/ Syringe 10 mls @ 2 mls/min IV DAILY [facility] Stop: 09/07/23 11:29 Last Admin: 09/01/23 08:30 Dose: 2 mls/min Insulin Aspart (Insulin Aspart Per Unit Charge) 0 units SC ACHS [facility] Stop: 09/30/23 11:29 Last Admin: 09/01/23 20:33 Dose: Not Given Lactulose (Lactulose Syrup 20 Gm/30 Ml Udc) 20 gm PO BID [facility] Stop: 09/06/23 09:44 Last Admin: 08/31/23 07:59 Dose: 20 gm Levothyroxine Sodium (Levothyroxine Sodium 50 Mcg Tablet) 50 mcg PO DAILYBB [facility] Stop: 10/02/23 06:29 Last Admin: 09/02/23 06:11 Dose: 50 mcg Lisinopril (Lisinopril 20 Mg Tab) 20 mg PO QAM [facility] Stop: 09/19/23 15:59 Last Admin: 09/01/23 08:27 Dose: 20 mg Metoprolol Succinate (Metoprolol Succ 50mg Ext Rel Tab) 50 mg PO QAM [facility] Stop: 09/22/23 08:59 Last Admin: 09/01/23 08:26 Dose: 50 mg Miscellaneous (Carbohydrates For Hypoglycemia ) 15 - 30 gm PO UD PRN PRN Reason: Hypoglycemia Protocol Stop: 09/05/23 21:53 Miscellaneous Information (Pharmacy Glycemic Mgmt Consult) 1 each N/A UD PRN; Protocol PRN Reason: Consult Stop: 09/29/23 17:08 Polyethylene Glycol (Polyethylene (Miralax) 17 Gm Pack) 17 gm PO TID [facility] Stop: 09/25/23 19:29 Last Admin: 09/01/23 20:40 Dose: 17 gm Senna/Docusate Sodium (Docusate Sodium/Senna 50/8.6mg Tab) 1 tab PO BID [facility] Stop: 09/24/23 08:59 Last Admin: 09/01/23 20:40 Dose: 1 tab (4) Aspiration pneumonia Laterality: bilateral
[2023-09-02 08:11] LABS: Hematocrit (blood only) 33.4 % (37.0-47.0); Hemoglobin 10.6 g/dl (12.0-16.0); Mean Corpuscular Hgb Conc 31.7 g/dL (32.0-36.0); Mean Corpuscular Volume 88.1 fL (80.0-100.0); Mean Platelet Volume 10.9 fL (9.4-12.4); Platelet Count 221 K/uL (130-400); RDW Coefficient of Variation 15.8 % (11.5-14.5); RDW Standard Deviation 50.9 fL (36.4-46.3); Red Blood Count 3.79 M/uL (4.20-5.40); White Blood Count 2.86 K/ul (4.8-10.8)
[2023-09-02 08:27] LABS: BUN Creatinine Ratio 37.5 (10-20); Calcium 8.4 mg/dl (8.6-10.3); Creatinine Clr Calc Pharmacy 123.8 ml/min; Est GFR (African American) 128.9 ml/min; Est GFR (Non-African American) 111.2 ml/min; Magnesium 1.8 mg/dl (1.7-2.4); Phosphorus 4.2 mg/dl (2.5-4.9); Potassium 3.7 mmol/L (3.5-5.1)
--- NOTE | 2023-09-02 09:46 | Pharmacy Report ---
Pharmacy Glycemic Sign Off Nt - Date of Service September 02, 2023 - Assessment & Plan ASSESSMENT: * Pharmacy was consulted by Dr Cagle on 08/30 for glycemic control and to write orders per [facility] inpatient glycemic control protocol. * Major changes made by pharmacy to antidiabetic regimen include: * adding a CR, but then removing it 24 hours later. * Patient has been receiving/requiring 1 unit of insulin per day for adequate glycemic control * BSGs ranging 79-156 mg/dl * Regimen has only required minor adjustments over the past 48hrs to achieve this level of control * Do not anticipate further changes in patient status that would quickly deteriorate glycemic control (i.e. patient to be NPO for upcoming procedure, steroids tapering, starting tube feedings, etc). PLAN FOR INPATIENT GLYCEMIC CONTROL: No changes needed to current regimen. * No basal * Continue NovoLog per scale ACHS/Q6hrs while NPO * Goal range = 120-150 mg/dl * CF = 35 mg/dl/unit * CR = none * Pharmacy is signing off of glycemic consult and will no longer be making adjustments to inpatient regimen. Please feel free to re-consult if needed. Thank you.
--- NOTE | 2023-09-02 12:34 | Communication Note ---
Date of Service: September 02, 2023 Interim progress reviewed. Patient is better able to express needs per staff and PO intake improving though still quite weak compared to baseline per notes. Patient was sleeping on rounds. No reports of delcid/delusions/disorganized behavior or agitation. Will continue clozaril at 75 mg hs, consider 100 mg.
[2023-09-03 06:30] LABS: Basophils # (auto) 0.03 K/uL (0.00-0.20); Basophils % (auto) 0.8 %; Eosinophils # (auto) 0.01 K/uL (0.00-0.50); Eosinophils % (auto) 0.3 %; Hematocrit (blood only) 31.4 % (37.0-47.0); Hemoglobin 10.2 g/dl (12.0-16.0); Immature Granulocytes # (auto) 0.01 K/uL (0.01-0.20); Immature Granulocytes % (auto) 0.3 %; Lymphocytes % (auto) 36.8 %; Mean Corpuscular Hemoglobin 28.3 pg (25.0-34.0); Mean Corpuscular Hgb Conc 32.5 g/dL (32.0-36.0); Mean Corpuscular Volume 87.2 fL (80.0-100.0); Monocytes % (auto) 13.2 %; Neutrophils # (auto) 1.85 K/uL (1.40-6.50); Neutrophils % (auto) 48.6 %; Platelet Count 230 K/uL (130-400); RDW Coefficient of Variation 15.5 % (11.5-14.5); RDW Standard Deviation 49.7 fL (36.4-46.3)
--- NOTE | 2023-09-03 09:22 | Hospitalist Progress Note ---
Date of Service September 03, 2023 Assessment & Plan (1) Stercoral colitis: (2) Constipation, chronic: (3) Full code status: (4) Aspiration pneumonia: (5) On mechanically assisted ventilation: (6) Acute respiratory failure: Plan Pt is a 72yoF with PMHx significant for HTN, HLD, DMII, hypothyroidism, Hx of brain tumor s/p partial resection, schizophrenia, prior migraine, chronic anemia, recurrent UTIs, urinary incontinence and urinary bladder diverticulum presented after being found down and minimally responsive at home. Patient was admitted to the ICU for management and evaluation of septic shock. Was downgraded and re-intubated in the ICU on 08/11. Acute respiratory failure requiring mechanical ventilation On admission, was secondary to severe sepsis above, requiring intubation Vent management per ICU, pt extubated on 08/08 On Aug 09- pt developed acute respiratory failure once more - Pt with increasing oxygen requirement. - Chest xray with bilateral opacities, pneumonia (?possible aspiration), procalcitonin elevated >34. -Was on hi emy oxygen, pt in restraints. -Pulmonology previously consulted- appreciate recs. -Diuresing with IV Lasix. -Transferred to ICU once more on 08/11 Transferred back to the ICU on 08/11 -was on bipap and re-intubated on 08/11 -bronch also done on 08/11 with cultures obtained and currently growing ryan. Noted mucoid impaction in RLL. -was on propofol and fentanyl for sedation -extubated once more on 08/15, currently on RA Cognitive Impairment Schizophrenia Acute Agitation/Delirium Required 24 hour support previously, relies on assistance of two care givers [employer] On clozapine, cymbalta, gabapentin at home, all held Pt pulling at lines and more agitated on 08/09 -will re-start home clozapine, per recs needs to titrated up slowly if held for more than 48hrs due to risk of bradycardia, hypotension -pt's home dose of clozapine 50mg qAM, 300mg qPM -clozapine restart on 08/10 at 12.5mg qAM, titrate dose up to home dosing -> now on hold, psych consulted -will hold off on restarting sedating/other meds above (gabapentin, cymbalta) Delirium precautions. Head CT as per ICU,negative for any acute findings Pt was treated with precedex in the ICU and that was dc on 08/13. Psychiatry subsequently consulted -resuming clorazil at this time, slowly. Currently at 75 mg, appreciate psych recs. -trial of Ativan 1mg on 08/23 -Head imaging pending until pt more stable to be in scanner/laying flat without concern for aspiration Neurology also consulted - last time seen by Dr. Cordova on 08/16 - EEG August 07 showed generalized slowing from encephalopathy but no epileptiform activity. -The patient also has a history of schizophrenia and is on Clozaril -Recommendations: 1. Now that she is extubated, increase activity as able, include physical, occupational, and speech therapy. 2. If the patient does not have a history of chronic left-sided weakness, consider MRI of the brain with and without contrast when more clinically stable. Pt is now awake , interactive and also answers simple questions. Fever Complicated UTI Pt with fever in early AM on 08/26 -UA suggestive of infection, urine Cx growing ESBL E.coli . Was started on Aztreonam, switched to Ertapenem on 08/28 -c diff negative with overflow diarrhea noted on 08/26 -ID consult for urine cx results, days of rx placed-appreciate recs Pt currently afebrile Anorexia Severe Malnutrition Adult failure to thrive Pt reportedly was not taking PO, not opening mouth NGT tube placed for nutritional needs (08/19) and started on feeds Has been receiving some meds orally, consider trial of po food intake -speech eval on 08/24 noted: pt a bit more sleepy -speech recommending permanent feeding option such as PEG -GI consult placed on 08/25 for possible PEG tube placement -consider PEG after workup and Rx of fever on 08/26 Consider PEG tube placement once more stable otherwise - pt started to eat, plan to remove NGT (if pt needs NGT again will need to be placed in another nare) NGT removed Severe constipation Stercoral Colitis CT Abd/pelvis showing significant stool burden on admission On lactulose, received enemas Reportedly pt had many BMs before General surgery consulted- appreciate recs -recommending to continue with bowel regimen, consider suppositories if pt unable to tolerate PO Currently resolved, cont. to closely monitor Bowel regimen resumed, on a scheduled basis with daily stool softener and lactulose BID dosing. Continue to monitor BM -KUB on 08/26 noting persistent large or severe amount of well-formed stool again seen throughout the colon and rectum. -reports of loose stool on 08/26, likely overflow constipation -BOWEL REGIMEN: lactulose 20mg BID + glycerin suppository daily + docusate/senna BID + miralax scheduled TID -GI recommending daily miralax through PEG once placed - pt is having BMs Septic shock-POA Pt was hypotensive on admission, requiring ICU admission Required pressor support which has since been discontinued. UA repeatedly without signs of infection, urine Cx with NGTD Chest XR with no signs of infection, biofire negative CT abd/pelvis with suggestion of stercoral colitis, bowel perforation less likely/ruled out Blood Cx x1 grew alpha strep, ?contaminant Was treated with Vanc/Zosyn. 08/10- pt with increased oxygen requirement, chest xray with noted possible pneumonia (also fluid overload), procal newly elevated. Pulmonology consulted- pt switched to meropenem for antibiotic coverage. Repeat Blood Cultures with NG TD. Pt completed abx treatment while hospitalized. Currently resolved. Oral ryan/ ? poss. ryan esophagitis Patient does not follow commands and does not open her mouth when asked. However she yawned several times, and there is a visible white plaque on her tongue. Nystatin ordered however difficult for nurses to actually apply nystatin as patient does not follow commands, does not open her mouth when asked. Started fluconazole. Cont. to monitor. FULL CODE STATUS On Aug 10, 2023, advised by CM that there is a jewish contact who might be able to weigh in on code discussion given pt has no known family with whom she is in contact to assist with her decisions during critical times. Listed contact in the chart is a Caregiver from an agency and does not want to be responsible for making those decisions for the pt. Mr. Weston Archibald [phone] was contacted about 4:45PM as advised by Case Management. He states that his only contact with the patient was visiting on behalf of the jewish. Would not describe himself as a friend. Notes that he was advised by someone in the medical field that this should likely go to the Ethics committee. States that he is concerned about what the law states in terms of being able to speak on her behalf. Does note in his conversations with the patient that she has always wanted to be well and "go home" (he makes the distinction not her heavenly home) so he would assume that she wants heroic measures done. States that he has been at [facility] in the past and has visited pts who have been here for months and states that he believes this is what June would want as well. Next steps currently pending. Appreciate CM assistance. GOC discussions to be continued, still full code. Hypothyroidism Levothyroxine resumed, continue Hypertension Held home antihypertensive while patient was on vasopressors BP currently trending back up Was on iv metoprolol, home PO metoprolol resumed Home lisinopril was previously resumed Home amlodipine resumed as well. Continue to monitor HLD holding statin DMII Hold home metformin Recurrent UTI Continue home methenamine when able to take po Recurrent migraines Continue home riboflavin Chronic normocytic anemia Hgb baseline ~10, stable Monitor CBC Diet: tube feeds stopped as pt now eating DVT prophylaxis: Lovenox SQ Dispo: PT/OT ordered, pt has caregivers CODE STATUS: Pt's listed contact in chart was contacted on 08/09 to discuss code status. She states that she works with an agency and is pt's caregiver but is not equipped nor does she want the responsibility of making life/ decisions for pt. She states pt has no POA and is estranged from living family, a sister with whom she was in contact passed recently. CM aware. Admission and Anticipated Discharge Date Admission Date: August 06, 2023 Subjective Pt seen in follow up of hypoxic resp. failure, was initially intubated on admission and then required re-intubation during her hosp. stay Initially treated for severe constipation, poss. perf. - this was ruled out, pt seen by gen. surgery and having BMs - however needing bowel regimen Then managed in ICU for pulm. edema, poss. pna Pt extubated Patient was not following commands, was nonverbal. NGT tube placed on (08/19/23) to provide nutrition. -> She started to eat. NG tube removed on (). Psychiatry following closely - started clozapine - currently on 75 HS Currently also treated for ESBL E. coli Patient is now more awake, interactive, and she is able to answer simple questions. Review of Systems Review of Systems: All systems reviewed & are unremarkable except as noted in Subjective Physical Exam Physical Exam: General: sitting up in bed in NAD Neuro/ Psych: awake, + eye contact, able to answer some simple questions HEENT: NC/AT, feeding tube in nares CV: RRR Resp:no increased effort of breathing , ctab Abdomen: soft Extremities:waffle boots lower extremities bilaterally. Results & Data Results & Data Vital Signs (Past 12 Hours) Vital Signs Temp Pulse Pulse Resp BP Pulse Ox O2 Del Method 09/03/23 08:14 36.6 C 75 16 147/82 H 96 Room Air 09/03/23 03:24 37.3 C 70 18 145/73 H 94 Room Air 09/02/23 23:25 63 Laboratory Results 09/03/23 09/03/23 09/02/23 Range/Units 07:10 06:15 19:46 WBC 3.80 L (4.8-10.8) K/ul RBC 3.60 L (4.20-5.40) M/uL Hgb 10.2 L (12.0-16.0) g/dl Hct 31.4 L (37.0-47.0) % MCV 87.2 (80.0-100.0) fL MCH 28.3 (25.0-34.0) pg MCHC 32.5 (32.0-36.0) g/dL RDW Std Deviation 49.7 H (36.4-46.3) fL RDW Coeff of Cyn 15.5 H (11.5-14.5) % Plt Count 230 (130-400) K/uL MPV 11.0 (9.4-12.4) fL Immature Gran % (Auto) 0.3 % Neut % (Auto) 48.6 % Lymph % (Auto) 36.8 % [place] % (Auto) 13.2 % Eos % (Auto) 0.3 % Baso % (Auto) 0.8 % Neut # (Auto) 1.85 (1.40-6.50) K/uL Lymph # (Auto) 1.40 (1.20-3.40) K/uL [place] # (Auto) 0.50 (0.11-0.59) K/uL Eos # (Auto) 0.01 (0.00-0.50) K/uL Baso # (Auto) 0.03 (0.00-0.20) K/uL Immature Gran # (Auto) 0.01 (0.01-0.20) K/uL POC Glucose 134 H 138 H (70-99) mg/dl 09/02/23 09/02/23 Range/Units 16:31 11:07 WBC (4.8-10.8) K/ul RBC (4.20-5.40) M/uL Hgb (12.0-16.0) g/dl Hct (37.0-47.0) % MCV (80.0-100.0) fL MCH (25.0-34.0) pg MCHC (32.0-36.0) g/dL RDW Std Deviation (36.4-46.3) fL RDW Coeff of Cyn (11.5-14.5) % Plt Count (130-400) K/uL MPV (9.4-12.4) fL Immature Gran % (Auto) % Neut % (Auto) % Lymph % (Auto) % [place] % (Auto) % Eos % (Auto) % Baso % (Auto) % Neut # (Auto) (1.40-6.50) K/uL Lymph # (Auto) (1.20-3.40) K/uL [place] # (Auto) (0.11-0.59) K/uL Eos # (Auto) (0.00-0.50) K/uL Baso # (Auto) (0.00-0.20) K/uL Immature Gran # (Auto) (0.01-0.20) K/uL POC Glucose 132 H 123 H (70-99) mg/dl Medications Administered Current Inpatient Medications Acetaminophen (Acetaminophen 325 Mg Tab) 650 mg PO Q4H PRN PRN Reason: Pain or Fever Stop: 09/29/23 21:47 Last Admin: 09/03/23 03:26 Dose: 650 mg Amlodipine Besylate (Amlodipine Besylate 5 Mg Tab) 5 mg PO DAILY JAMEL Stop: 09/22/23 08:59 Last Admin: 09/02/23 08:42 Dose: 5 mg Clozapine (Clozapine 25 Mg Tab) 75 mg PO HS JAMEL; Protocol Stop: 09/30/23 20:59 Last Admin: 09/02/23 20:14 Dose: 75 mg Dextrose (Dextrose 50% 50 Ml Syringe) 25 - 50 ml IV UD PRN; Protocol PRN Reason: Hypoglycemia Protocol Stop: 09/05/23 21:53 Enoxaparin Sodium (Enoxaparin Inj 40 Mg/0.4 Ml Syr) 40 mg SQ Q24H JAMEL Stop: 09/11/23 13:59 Last Admin: 09/02/23 13:04 Dose: 40 mg Fluticasone Propionate (Fluticasone Propionate Na Spr 16 Gm Btl) 2 sprays NA DAILY JAMEL Stop: 09/09/23 08:59 Last Admin: 09/02/23 08:42 Dose: 2 sprays Glucagon (Glucagon For Inj 1 Mg Vial) 1 mg SQ UD PRN; Protocol PRN Reason: Hypoglycemia Protocol Stop: 09/05/23 21:53 Glucose (Glucose 40% Gel 15 Gm Tube) 15 - 30 gm PO UD PRN; Protocol PRN Reason: Hypoglycemia Protocol Stop: 09/05/23 21:53 Glucose (Glucose 10 Tab/Tube) 4 - 8 tab PO UD PRN; Protocol PRN Reason: Hypoglycemia Treatment Stop: 09/05/23 21:53 Glycerin (Glycerin Adult 12 Supp/Box Supp) 1 supp DC DAILY PRN PRN Reason: Constipation Stop: 09/24/23 08:59 Thiamine HCl 100 mg/ Syringe 10 mls @ 2 mls/min IV DAILY JAMEL Stop: 09/11/23 08:59 Last Admin: 09/02/23 08:41 Dose: 2 mls/min Pantoprazole Sodium 40 mg/ (Syringe) 10 mls @ 5 mls/min IV DAILY JAMEL Stop: 09/11/23 09:59 Last Admin: 09/02/23 08:41 Dose: 5 mls/min Dextrose/Sodium Chloride (D5w And Nss) 1,000 mls @ 75 mls/hr IV .[id number] [facility] Stop: 09/16/23 21:14 Last Infusion: 08/18/23 12:26 Dose: Infused Ertapenem 1,000 mg/ Syringe 10 mls @ 2 mls/min IV DAILY [facility] Stop: 09/07/23 11:29 Last Admin: 09/02/23 08:41 Dose: 2 mls/min Insulin Aspart (Insulin Aspart Per Unit Charge) 0 units SC ACHS JAMEL Stop: 09/30/23 11:29 Last Admin: 09/02/23 20:06 Dose: Not Given Lactulose (Lactulose Syrup 20 Gm/30 Ml Udc) 20 gm PO BID [facility] Stop: 09/06/23 09:44 Last Admin: 08/31/23 07:59 Dose: 20 gm Levothyroxine Sodium (Levothyroxine Sodium 50 Mcg Tablet) 50 mcg PO DAILYBB [facility] Stop: 10/02/23 06:29 Last Admin: 09/03/23 05:56 Dose: 50 mcg Lisinopril (Lisinopril 20 Mg Tab) 20 mg PO QAM [facility] Stop: 09/19/23 15:59 Last Admin: 09/02/23 08:42 Dose: 20 mg Metoprolol Succinate (Metoprolol Succ 50mg Ext Rel Tab) 50 mg PO QAM [facility] Stop: 09/22/23 08:59 Last Admin: 09/02/23 08:43 Dose: 50 mg Miscellaneous (Carbohydrates For Hypoglycemia ) 15 - 30 gm PO UD PRN PRN Reason: Hypoglycemia Protocol Stop: 09/05/23 21:53 Polyethylene Glycol (Polyethylene (Miralax) 17 Gm Pack) 17 gm PO TID [facility] Stop: 09/25/23 19:29 Last Admin: 09/02/23 20:15 Dose: Not Given Senna/Docusate Sodium (Docusate Sodium/Senna 50/8.6mg Tab) 1 tab PO BID [facility] Stop: 09/24/23 08:59 Last Admin: 09/02/23 20:15 Dose: Not Given (4) Aspiration pneumonia Laterality: bilateral
--- NOTE | 2023-09-04 10:58 | Hospitalist Progress Note ---
Date of Service September 04, 2023 Assessment & Plan (1) Stercoral colitis: (2) Constipation, chronic: (3) Full code status: (4) Aspiration pneumonia: (5) On mechanically assisted ventilation: (6) Acute respiratory failure: Plan Pt is a 72yoF with PMHx significant for HTN, HLD, DMII, hypothyroidism, Hx of brain tumor s/p partial resection, schizophrenia, prior migraine, chronic anemia, recurrent UTIs, urinary incontinence and urinary bladder diverticulum presented after being found down and minimally responsive at home. Patient was admitted to the ICU for management and evaluation of septic shock. Was downgraded and re-intubated in the ICU on 08/11. Acute respiratory failure requiring mechanical ventilation On admission, was secondary to severe sepsis above, requiring intubation Vent management per ICU, pt extubated on 08/08 On Aug 09- pt developed acute respiratory failure once more - Pt with increasing oxygen requirement. - Chest xray with bilateral opacities, pneumonia (?possible aspiration), procalcitonin elevated >34. -Was on hi emy oxygen, pt in restraints. -Pulmonology previously consulted- appreciate recs. -Diuresing with IV Lasix. -Transferred to ICU once more on 08/11 Transferred back to the ICU on 08/11 -was on bipap and re-intubated on 08/11 -bronch also done on 08/11 with cultures obtained and currently growing ryan. Noted mucoid impaction in RLL. -was on propofol and fentanyl for sedation -extubated once more on 08/15, currently on RA Cognitive Impairment Schizophrenia Acute Agitation/Delirium Required 24 hour support previously, relies on assistance of two care givers [employer] On clozapine, cymbalta, gabapentin at home, all held Pt pulling at lines and more agitated on 08/09 -will re-start home clozapine, per recs needs to titrated up slowly if held for more than 48hrs due to risk of bradycardia, hypotension -pt's home dose of clozapine 50mg qAM, 300mg qPM -clozapine restart on 08/10 at 12.5mg qAM, titrate dose up to home dosing -> now on hold, psych consulted -will hold off on restarting sedating/other meds above (gabapentin, cymbalta) Delirium precautions. Head CT as per ICU,negative for any acute findings Pt was treated with precedex in the ICU and that was dc on 08/13. Psychiatry subsequently consulted -resuming clorazil at this time, slowly. Currently at 75 mg, appreciate psych recs. -trial of Ativan 1mg on 08/23 -Head imaging pending until pt more stable to be in scanner/laying flat without concern for aspiration Neurology also consulted - last time seen by Dr. Cordova on 08/16 - EEG August 07 showed generalized slowing from encephalopathy but no epileptiform activity. -The patient also has a history of schizophrenia and is on Clozaril -Recommendations: 1. Now that she is extubated, increase activity as able, include physical, occupational, and speech therapy. 2. If the patient does not have a history of chronic left-sided weakness, consider MRI of the brain with and without contrast when more clinically stable. Pt is now awake , interactive and also answers simple questions. Fever Complicated UTI Pt with fever in early AM on 08/26 -UA suggestive of infection, urine Cx growing ESBL E.coli . Was started on Aztreonam, switched to Ertapenem on 08/28 -c diff negative with overflow diarrhea noted on 08/26 -ID consult for urine cx results, days of rx placed-appreciate recs Pt currently afebrile Anorexia Severe Malnutrition Adult failure to thrive Pt reportedly was not taking PO, not opening mouth NGT tube placed for nutritional needs (08/19) and started on feeds Has been receiving some meds orally, consider trial of po food intake -speech eval on 08/24 noted: pt a bit more sleepy -speech recommending permanent feeding option such as PEG -GI consult placed on 08/25 for possible PEG tube placement -consider PEG after workup and Rx of fever on 08/26 Consider PEG tube placement once more stable otherwise - pt started to eat, plan to remove NGT (if pt needs NGT again will need to be placed in another nare) NGT removed Severe constipation Stercoral Colitis CT Abd/pelvis showing significant stool burden on admission On lactulose, received enemas Reportedly pt had many BMs before General surgery consulted- appreciate recs -recommending to continue with bowel regimen, consider suppositories if pt unable to tolerate PO Currently resolved, cont. to closely monitor Bowel regimen resumed, on a scheduled basis with daily stool softener and lactulose BID dosing. Continue to monitor BM -KUB on 08/26 noting persistent large or severe amount of well-formed stool again seen throughout the colon and rectum. -reports of loose stool on 08/26, likely overflow constipation -BOWEL REGIMEN: lactulose 20mg BID + glycerin suppository daily + docusate/senna BID + miralax scheduled TID -GI recommending daily miralax through PEG once placed - pt is having BMs Septic shock-POA Pt was hypotensive on admission, requiring ICU admission Required pressor support which has since been discontinued. UA repeatedly without signs of infection, urine Cx with NGTD Chest XR with no signs of infection, biofire negative CT abd/pelvis with suggestion of stercoral colitis, bowel perforation less likely/ruled out Blood Cx x1 grew alpha strep, ?contaminant Was treated with Vanc/Zosyn. 08/10- pt with increased oxygen requirement, chest xray with noted possible pneumonia (also fluid overload), procal newly elevated. Pulmonology consulted- pt switched to meropenem for antibiotic coverage. Repeat Blood Cultures with NG TD. Pt completed abx treatment while hospitalized. Currently resolved. Oral ryan/ ? poss. ryan esophagitis Patient does not follow commands and does not open her mouth when asked. However she yawned several times, and there is a visible white plaque on her tongue. Nystatin ordered however difficult for nurses to actually apply nystatin as patient does not follow commands, does not open her mouth when asked. Started fluconazole. Cont. to monitor. FULL CODE STATUS On Aug 10, 2023, advised by CM that there is a restorationist contact who might be able to weigh in on code discussion given pt has no known family with whom she is in contact to assist with her decisions during critical times. Listed contact in the chart is a Caregiver from an agency and does not want to be responsible for making those decisions for the pt. Mr. Weston Archibald [phone] was contacted about 4:45PM as advised by Case Management. He states that his only contact with the patient was visiting on behalf of the restorationist. Would not describe himself as a friend. Notes that he was advised by someone in the medical field that this should likely go to the Ethics committee. States that he is concerned about what the law states in terms of being able to speak on her behalf. Does note in his conversations with the patient that she has always wanted to be well and "go home" (he makes the distinction not her heavenly home) so he would assume that she wants heroic measures done. States that he has been at [facility] in the past and has visited pts who have been here for months and states that he believes this is what June would want as well. Next steps currently pending. Appreciate CM assistance. GOC discussions to be continued, still full code. Hypothyroidism Levothyroxine resumed, continue Hypertension Held home antihypertensive while patient was on vasopressors BP currently trending back up Was on iv metoprolol, home PO metoprolol resumed Home lisinopril was previously resumed Home amlodipine resumed as well. Continue to monitor HLD holding statin DMII Hold home metformin Recurrent UTI Continue home methenamine when able to take po Recurrent migraines Continue home riboflavin Chronic normocytic anemia Hgb baseline ~10, stable Monitor CBC Diet: tube feeds stopped as pt now eating DVT prophylaxis: Lovenox SQ Dispo: PT/OT ordered, pt has caregivers CODE STATUS: Pt's listed contact in chart was contacted on 08/09 to discuss code status. She states that she works with an agency and is pt's caregiver but is not equipped nor does she want the responsibility of making life/ decisions for pt. She states pt has no POA and is estranged from living family, a sister with whom she was in contact passed recently. CM aware. Admission and Anticipated Discharge Date Admission Date: August 06, 2023 Subjective Pt seen in follow up of hypoxic resp. failure, was initially intubated on admission and then required re-intubation during her hosp. stay Initially treated for severe constipation, poss. perf. - this was ruled out, pt seen by gen. surgery and having BMs - however needing bowel regimen Then managed in ICU for pulm. edema, poss. pna Pt extubated Patient was not following commands, was nonverbal. NGT tube placed on (08/19/23) to provide nutrition. -> She started to eat. NG tube removed on (). Psychiatry following closely - started clozapine - currently on 75 HS Currently also treated for ESBL E. coli Patient is now more awake, interactive, and she is able to answer simple questions. Review of Systems Review of Systems: All systems reviewed & are unremarkable except as noted in Subjective Physical Exam Physical Exam: General: sitting up in bed in NAD Neuro/ Psych: awake, + eye contact, able to answer some simple questions HEENT: NC/AT, feeding tube in nares CV: RRR Resp:no increased effort of breathing , ctab Abdomen: soft Extremities:waffle boots lower extremities bilaterally. Results & Data Results & Data Vital Signs (Past 12 Hours) Vital Signs Temp Pulse Resp BP Pulse Ox O2 Del Method 09/04/23 10:55 36.8 C 64 17 147/72 H 99 Room Air 09/04/23 07:41 37.0 C 68 20 161/79 H 97 Room Air 09/04/23 02:43 37 C 69 18 130/75 95 Room Air 09/03/23 23:00 36.6 C 68 18 134/64 97 Room Air Medications Administered Current Inpatient Medications Acetaminophen (Acetaminophen 325 Mg Tab) 650 mg PO Q4H PRN PRN Reason: Pain or Fever Stop: 09/29/23 21:47 Last Admin: 09/04/23 08:42 Dose: 650 mg Amlodipine Besylate (Amlodipine Besylate 5 Mg Tab) 5 mg PO DAILY JAMEL Stop: 09/22/23 08:59 Last Admin: 09/04/23 08:37 Dose: 5 mg Clozapine (Clozapine 25 Mg Tab) 75 mg PO HS JAMEL; Protocol Stop: 09/30/23 20:59 Last Admin: 09/03/23 20:22 Dose: 75 mg Dextrose (Dextrose 50% 50 Ml Syringe) 25 - 50 ml IV UD PRN; Protocol PRN Reason: Hypoglycemia Protocol Stop: 09/05/23 21:53 Enoxaparin Sodium (Enoxaparin Inj 40 Mg/0.4 Ml Syr) 40 mg SQ Q24H JAMEL Stop: 09/11/23 13:59 Last Admin: 09/03/23 15:40 Dose: 40 mg Fluticasone Propionate (Fluticasone Propionate Na Spr 16 Gm Btl) 2 sprays NA DAILY JAMEL Stop: 09/09/23 08:59 Last Admin: 09/04/23 08:36 Dose: 2 sprays Glucagon (Glucagon For Inj 1 Mg Vial) 1 mg SQ UD PRN; Protocol PRN Reason: Hypoglycemia Protocol Stop: 09/05/23 21:53 Glucose (Glucose 40% Gel 15 Gm Tube) 15 - 30 gm PO UD PRN; Protocol PRN Reason: Hypoglycemia Protocol Stop: 09/05/23 21:53 Glucose (Glucose 10 Tab/Tube) 4 - 8 tab PO UD PRN; Protocol PRN Reason: Hypoglycemia Treatment Stop: 09/05/23 21:53 Glycerin (Glycerin Adult 12 Supp/Box Supp) 1 supp AK DAILY PRN PRN Reason: Constipation Stop: 09/24/23 08:59 Thiamine HCl 100 mg/ Syringe 10 mls @ 2 mls/min IV DAILY JAMEL Stop: 09/11/23 08:59 Last Admin: 09/04/23 08:37 Dose: 2 mls/min Pantoprazole Sodium 40 mg/ (Syringe) 10 mls @ 5 mls/min IV DAILY JAMEL Stop: 09/11/23 09:59 Last Admin: 09/04/23 08:44 Dose: 5 mls/min Dextrose/Sodium Chloride (D5w And Nss) 1,000 mls @ 75 mls/hr IV .[id number] [facility] Stop: 09/16/23 21:14 Last Infusion: 08/18/23 12:26 Dose: Infused Ertapenem 1,000 mg/ Syringe 10 mls @ 2 mls/min IV DAILY [facility] Stop: 09/07/23 11:29 Last Admin: 09/04/23 08:48 Dose: 2 mls/min Insulin Aspart (Insulin Aspart Per Unit Charge) 0 units SC ACHS [facility] Stop: 09/30/23 11:29 Last Admin: 09/04/23 08:33 Dose: Not Given Lactulose (Lactulose Syrup 20 Gm/30 Ml Udc) 20 gm PO BID JAMEL Stop: 09/06/23 09:44 Last Admin: 08/31/23 07:59 Dose: 20 gm Levothyroxine Sodium (Levothyroxine Sodium 50 Mcg Tablet) 50 mcg PO DAILYBB [facility] Stop: 10/02/23 06:29 Last Admin: 09/04/23 06:07 Dose: 50 mcg Lisinopril (Lisinopril 20 Mg Tab) 20 mg PO QAM [facility] Stop: 09/19/23 15:59 Last Admin: 09/04/23 08:36 Dose: 20 mg Metoprolol Succinate (Metoprolol Succ 50mg Ext Rel Tab) 50 mg PO QAM JAMEL Stop: 09/22/23 08:59 Last Admin: 09/04/23 08:40 Dose: 50 mg Miscellaneous (Carbohydrates For Hypoglycemia ) 15 - 30 gm PO UD PRN PRN Reason: Hypoglycemia Protocol Stop: 09/05/23 21:53 Polyethylene Glycol (Polyethylene (Miralax) 17 Gm Pack) 17 gm PO TID JAMEL Stop: 09/25/23 19:29 Last Admin: 09/04/23 08:40 Dose: 17 gm Senna/Docusate Sodium (Docusate Sodium/Senna 50/8.6mg Tab) 1 tab PO BID JAMEL Stop: 09/24/23 08:59 Last Admin: 09/04/23 08:35 Dose: 1 tab (4) Aspiration pneumonia Laterality: bilateral
[2023-09-05 08:38] LABS: BUN Creatinine Ratio 27.8 (10-20); Calcium 8.5 mg/dl (8.6-10.3); Creatinine Clr Calc Pharmacy 110.1 ml/min; Magnesium 1.8 mg/dl (1.7-2.4); Potassium 3.8 mmol/L (3.5-5.1)
--- NOTE | 2023-09-05 14:08 | Communication Note ---
Date of Service: September 05, 2023 interim progress reviewed, case discussed with liaison. Patient more alert today eating lunch in chair, staff having to limit fluids (informal). sodium is ho lding steady. Nursing notes reflect fatigue, no agitation, no delcid. Will continue clozaril at current dose as higher doses may contribute to sedation/orthostasis during recovering and exhibiting some polydipsia. Weekly cbc as per [facility] protocol.
[2023-09-05] MEDS ORDERED: ARTIFICIAL TEARS OPB PRN (14:53)
--- NOTE | 2023-09-05 16:41 | Hospitalist Progress Note ---
Date of Service September 05, 2023 Assessment & Plan (1) Stercoral colitis: (2) Constipation, chronic: (3) Full code status: (4) Aspiration pneumonia: (5) On mechanically assisted ventilation: (6) Acute respiratory failure: Plan Pt is a 72yoF with PMHx significant for HTN, HLD, DMII, hypothyroidism, Hx of brain tumor s/p partial resection, schizophrenia, prior migraine, chronic anemia, recurrent UTIs, urinary incontinence and urinary bladder diverticulum presented after being found down and minimally responsive at home. Patient was admitted to the ICU for management and evaluation of septic shock. Was downgraded and re-intubated in the ICU on 08/11. Acute respiratory failure requiring mechanical ventilation On admission, was secondary to severe sepsis above, requiring intubation Vent management per ICU, pt extubated on 08/08 On Aug 09- pt developed acute respiratory failure once more - Pt with increasing oxygen requirement. - Chest xray with bilateral opacities, pneumonia (?possible aspiration), procalcitonin elevated >34. -Was on hi emy oxygen, pt in restraints. -Pulmonology previously consulted- appreciate recs. -Diuresing with IV Lasix. -Transferred to ICU once more on 08/11 Transferred back to the ICU on 08/11 -was on bipap and re-intubated on 08/11 -bronch also done on 08/11 with cultures obtained and currently growing ryan. Noted mucoid impaction in RLL. 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 Head CT as per ICU,negative for any acute findings Pt was treated with precedex in the ICU and that was dc on 08/13. Psychiatry subsequently consulted -resuming clorazil at this time, slowly. Currently at 75 mg, appreciate psych recs. -trial of Ativan 1mg on 08/23 -Head imaging pending until pt more stable to be in scanner/laying flat without concern for aspiration Neurology also consulted - last time seen by Dr. Cordova on 08/16 - EEG August 07 showed generalized slowing from encephalopathy but no epileptiform activity. -The patient also has a history of schizophrenia and is on Clozaril -Recommendations: 1. Now that she is extubated, increase activity as able, include physical, occupational, and speech therapy. 2. If the patient does not have a history of chronic left-sided weakness, consider MRI of the brain with and without contrast when more clinically stable. Pt is now awake , interactive and also answers simple questions. Fever Complicated UTI Pt with fever in early AM on 08/26 -UA suggestive of infection, urine Cx growing ESBL E.coli . Was started on Aztreonam, switched to Ertapenem on 08/28 -c diff negative with overflow diarrhea noted on 08/26 -ID consult for urine cx results, days of rx placed-appreciate recs Pt currently afebrile Anorexia Severe Malnutrition Adult failure to thrive Pt reportedly was not taking PO, not opening mouth NGT tube placed for nutritional needs (08/19) and started on feeds Considered PEG tube placement and GI consulted - pt started to eat, plan to remove NGT (if pt needs NGT again will need to be placed in another nare) NGT removed Pt is eating well, having good appetite. Severe constipation Stercoral Colitis CT Abd/pelvis showing significant stool burden on admission Was on extensive bowel regimen, seen by surgery and GI - now regimen less extensive and pt having BM, cont. to monitor - pt is having BMs Septic shock-POA Pt was hypotensive on admission, requiring ICU admission Required pressor support which has since been discontinued. UA repeatedly without signs of infection, urine Cx with NGTD Chest XR with no signs of infection, biofire negative CT abd/pelvis with suggestion of stercoral colitis, bowel perforation less likely/ruled out Blood Cx x1 grew alpha strep, ?contaminant Was treated with Vanc/Zosyn. 08/10- pt with increased oxygen requirement, chest xray with noted possible pneumonia (also fluid overload), procal newly elevated. Pulmonology consulted- pt switched to meropenem for antibiotic coverage. Repeat Blood Cultures with NGTD. Pt completed abx treatment while hospitalized. Currently resolved. Oral ryan/ ? poss. ryan esophagitis Patient did not follow commands and did not open her mouth when asked. However she yawned several times, and there was a visible white plaque on her tongue. Nystatin ordered however difficult for nurses to actually apply nystatin as patient did not follow commands, did not open her mouth when asked. Started fluconazole. Cont. to monitor. Finished treatment. Hypothyroidism Levothyroxine resumed, continue Hypertension Held home antihypertensive while patient was on vasopressors Now back on home meds - metoprolol, amlodipine, lisinopril Continue to monitor HLD holding statin DMII Hold home metformin Recurrent UTI Continue home methenamine when able to take po Recurrent migraines Continue home riboflavin Chronic normocytic anemia Hgb baseline ~10, stable Monitor CBC Diet: tube feeds stopped as pt now eating DVT prophylaxis: Lovenox SQ Dispo: PT/OT ordered, pt has caregivers CODE STATUS: FULL (pls see discussion regarding her code status in previous documentation) Admission and Anticipated Discharge Date Admission Date: August 06, 2023 Subjective Pt seen in follow up of hypoxic resp. failure, was initially intubated on admission and then required re-intubation during her hosp. stay Initially treated for severe constipation, poss. perf. - this was ruled out, pt seen by gen. surgery and having BMs - however needing bowel regimen Then managed in ICU for pulm. edema, poss. pna Pt extubated Patient was not following commands, was nonverbal. NGT tube placed on (08/19/23) to provide nutrition. -> She started to eat. NG tube removed on (). Psychiatry following closely - started clozapine - currently on 75 HS Currently also treated for ESBL E. coli Patient is now more awake, interactive, and she is able to answer simple questions. Review of Systems Review of Systems: All systems reviewed & are unremarkable except as noted in Subjective Physical Exam Physical Exam: General: sitting up in bed in NAD Neuro/ Psych: awake, + eye contact, able to answer some simple questions HEENT: NC/AT, feeding tube in nares CV: RRR Resp: no increased effort of breathing , ctab Abdomen: soft Extremities: waffle boots lower extremities bilaterally. Results & Data Results & Data Vital Signs (Past 12 Hours) Vital Signs Temp Pulse Pulse Resp BP Pulse Ox O2 Del Method 09/05/23 11:10 36.7 C 67 17 110/68 100 Room Air 09/05/23 08:00 63 09/05/23 07:48 36.7 C 70 17 160/88 H 98 Room Air Laboratory Results 09/05/23 09/05/23 09/05/23 Range/Units 16:10 11:25 07:34 Sodium 140 (136-145) mmol/L Potassium 3.8 (3.5-5.1) mmol/L Chloride 105 (98-107) mmol/L Carbon Dioxide 30 (21-32) mmol/L Anion Gap 5 (3-11) BUN 10 (6-23) mg/dl Creatinine 0.36 L (0.6-1.2) mg/dl Est Cr Clr Drug Dosing 110.1 ml/min Est GFR ( Amer) 124.0 ml/min Est GFR (Non-Af Amer) 107.0 ml/min BUN/Creatinine Ratio 27.8 H (10-20) Glucose 131 H (70-99(Fasting)) mg/dl POC Glucose 141 H 151 H (70-99) mg/dl Calcium 8.5 L (8.6-10.3) mg/dl Phosphorus 4.0 (2.5-4.9) mg/dl Magnesium 1.8 (1.7-2.4) mg/dl 09/05/23 09/04/23 Range/Units 07:13 20:24 Sodium (136-145) mmol/L Potassium (3.5-5.1) mmol/L Chloride (98-107) mmol/L Carbon Dioxide (21-32) mmol/L Anion Gap (3-11) BUN (6-23) mg/dl Creatinine (0.6-1.2) mg/dl Est Cr Clr Drug Dosing ml/min Est GFR ( Amer) ml/min Est GFR (Non-Af Amer) ml/min BUN/Creatinine Ratio (10-20) Glucose (70-99(Fasting)) mg/dl POC Glucose 114 H 115 H (70-99) mg/dl Calcium (8.6-10.3) mg/dl Phosphorus (2.5-4.9) mg/dl Magnesium (1.7-2.4) mg/dl Medications Administered Current Inpatient Medications Acetaminophen (Acetaminophen 325 Mg Tab) 650 mg PO Q4H PRN PRN Reason: Pain or Fever Stop: 09/29/23 21:47 Last Admin: 09/05/23 15:18 Dose: 650 mg Amlodipine Besylate (Amlodipine Besylate 5 Mg Tab) 5 mg PO DAILY JAMEL Stop: 09/22/23 08:59 Last Admin: 09/05/23 08:35 Dose: 5 mg Artificial Tears (Artificial Tears) 1 drops OPB QID PRN PRN Reason: Dryness Stop: 10/05/23 14:52 Clozapine (Clozapine 25 Mg Tab) 75 mg PO HS JAMEL; Protocol Stop: 09/30/23 20:59 Last Admin: 09/04/23 19:45 Dose: 75 mg Dextrose (Dextrose 50% 50 Ml Syringe) 25 - 50 ml IV UD PRN; Protocol PRN Reason: Hypoglycemia Protocol Stop: 09/05/23 21:53 Enoxaparin Sodium (Enoxaparin Inj 40 Mg/0.4 Ml Syr) 40 mg SQ Q24H JAMEL Stop: 09/11/23 13:59 Last Admin: 09/05/23 15:10 Dose: 40 mg Fluticasone Propionate (Fluticasone Propionate Na Spr 16 Gm Btl) 2 sprays NA DAILY JAMEL Stop: 09/09/23 08:59 Last Admin: 09/05/23 08:34 Dose: 2 sprays Glucagon (Glucagon For Inj 1 Mg Vial) 1 mg SQ UD PRN; Protocol PRN Reason: Hypoglycemia Protocol Stop: 09/05/23 21:53 Glucose (Glucose 40% Gel 15 Gm Tube) 15 - 30 gm PO UD PRN; Protocol PRN Reason: Hypoglycemia Protocol Stop: 09/05/23 21:53 Glucose (Glucose 10 Tab/Tube) 4 - 8 tab PO UD PRN; Protocol PRN Reason: Hypoglycemia Treatment Stop: 09/05/23 21:53 Glycerin (Glycerin Adult 12 Supp/Box Supp) 1 supp [place] DAILY PRN PRN Reason: Constipation Stop: 09/24/23 08:59 Thiamine HCl 100 mg/ Syringe 10 mls @ 2 mls/min IV DAILY JAMEL Stop: 09/11/23 08:59 Last Admin: 09/05/23 08:34 Dose: 2 mls/min Pantoprazole Sodium 40 mg/ (Syringe) 10 mls @ 5 mls/min IV DAILY JAMEL Stop: 09/11/23 09:59 Last Admin: 09/05/23 08:36 Dose: 5 mls/min Dextrose/Sodium Chloride (D5w And Nss) 1,000 mls @ 75 mls/hr IV .[id number] JAMEL Stop: 09/16/23 21:14 Last Infusion: 08/18/23 12:26 Dose: Infused Ertapenem 1,000 mg/ Syringe 10 mls @ 2 mls/min IV DAILY JAMEL Stop: 09/07/23 11:29 Last Admin: 09/05/23 08:37 Dose: 2 mls/min Insulin Aspart (Insulin Aspart Per Unit Charge) 0 units SC ACHS JAMEL Stop: 09/30/23 11:29 Last Admin: 09/05/23 12:33 Dose: 1 units Lactobacillus Acidophilus (Advanced Probiotic 625 Mg Capsule) 1,250 mg PO DAILY JAMEL Stop: 10/05/23 16:44 Levothyroxine Sodium (Levothyroxine Sodium 50 Mcg Tablet) 50 mcg PO DAILYBB JAMEL Stop: 10/02/23 06:29 Last Admin: 09/05/23 06:01 Dose: 50 mcg Lisinopril (Lisinopril 20 Mg Tab) 20 mg PO QAM JAMEL Stop: 09/19/23 15:59 Last Admin: 09/05/23 08:35 Dose: 20 mg Metoprolol Succinate (Metoprolol Succ 50mg Ext Rel Tab) 50 mg PO QAM JAMEL Stop: 09/22/23 08:59 Last Admin: 09/05/23 08:35 Dose: 50 mg Miscellaneous (Carbohydrates For Hypoglycemia ) 15 - 30 gm PO UD PRN PRN Reason: Hypoglycemia Protocol Stop: 09/05/23 21:53 Polyethylene Glycol (Polyethylene (Miralax) 17 Gm Pack) 17 gm PO DAILY JAMEL Stop: 10/06/23 08:59 Senna/Docusate Sodium (Docusate Sodium/Senna 50/8.6mg Tab) 1 tab PO BID JAMEL Stop: 09/24/23 08:59 Last Admin: 09/05/23 08:36 Dose: 1 tab (4) Aspiration pneumonia Laterality: bilateral
[2023-09-05] MEDS: ADVANCED PROBIOTIC 625 MG CAPSULE PO SCH (17:29)
--- NOTE | 2023-09-06 06:20 | Hospitalist Progress Note ---
Date of Service September 06, 2023 Assessment & Plan (1) Stercoral colitis: (2) Constipation, chronic: (3) Full code status: (4) Aspiration pneumonia: (5) On mechanically assisted ventilation: (6) Acute respiratory failure: Plan Pt is a 72yoF with PMHx significant for HTN, HLD, DMII, hypothyroidism, Hx of brain tumor s/p partial resection, schizophrenia, prior migraine, chronic anemia, recurrent UTIs, urinary incontinence and urinary bladder diverticulum presented after being found down and minimally responsive at home. Patient was admitted to the ICU for management and evaluation of septic shock. Was downgraded and re-intubated in the ICU on 08/11. Acute respiratory failure requiring mechanical ventilation On admission, was secondary to severe sepsis above, requiring intubation Vent management per ICU, pt extubated on 08/08 On Aug 09- pt developed acute respiratory failure once more - Pt with increasing oxygen requirement. - Chest xray with bilateral opacities, pneumonia (?possible aspiration), procalcitonin elevated >34. -Was on hi emy oxygen, pt in restraints. -Pulmonology previously consulted- appreciate recs. -Diuresing with IV Lasix. -Transferred to ICU once more on 08/11 Transferred back to the ICU on 08/11 -was on bipap and re-intubated on 08/11 -bronch also done on 08/11 with cultures obtained and currently growing ryan. Noted mucoid impaction in RLL. 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 Head CT as per ICU,negative for any acute findings Pt was treated with precedex in the ICU and that was dc on 08/13. Psychiatry subsequently consulted -resuming clorazil at this time, slowly. Currently at 75 mg, appreciate psych recs. -trial of Ativan 1mg on 08/23 -Head imaging pending until pt more stable to be in scanner/laying flat without concern for aspiration Neurology also consulted - last time seen by Dr. Cordova on 08/16 - EEG August 07 showed generalized slowing from encephalopathy but no epileptiform activity. -The patient also has a history of schizophrenia and is on Clozaril -Recommendations: 1. Now that she is extubated, increase activity as able, include physical, occupational, and speech therapy. 2. If the patient does not have a history of chronic left-sided weakness, consider MRI of the brain with and without contrast when more clinically stable. Pt is now awake , interactive and also answers simple questions. Fever Complicated UTI Pt with fever in early AM on 08/26 -UA suggestive of infection, urine Cx growing ESBL E.coli . Was started on Aztreonam, switched to Ertapenem on 08/28 -c diff negative with overflow diarrhea noted on 08/26 -ID consult for urine cx results, days of rx placed-appreciate recs Pt currently afebrile Anorexia Severe Malnutrition Adult failure to thrive Pt reportedly was not taking PO, not opening mouth NGT tube placed for nutritional needs (08/19) and started on feeds Considered PEG tube placement and GI consulted - pt started to eat, plan to remove NGT (if pt needs NGT again will need to be placed in another nare) NGT removed Pt is eating well, having good appetite. Severe constipation Stercoral Colitis CT Abd/pelvis showing significant stool burden on admission Was on extensive bowel regimen, seen by surgery and GI - now regimen less extensive and pt having BM, cont. to monitor - pt is having BMs Septic shock-POA Pt was hypotensive on admission, requiring ICU admission Required pressor support which has since been discontinued. UA repeatedly without signs of infection, urine Cx with NGTD Chest XR with no signs of infection, biofire negative CT abd/pelvis with suggestion of stercoral colitis, bowel perforation less likely/ruled out Blood Cx x1 grew alpha strep, ?contaminant Was treated with Vanc/Zosyn. 08/10- pt with increased oxygen requirement, chest xray with noted possible pneumonia (also fluid overload), procal newly elevated. Pulmonology consulted- pt switched to meropenem for antibiotic coverage. Repeat Blood Cultures with NGTD. Pt completed abx treatment while hospitalized. Currently resolved. Oral ryan/ ? poss. ryan esophagitis Patient did not follow commands and did not open her mouth when asked. However she yawned several times, and there was a visible white plaque on her tongue. N ystatin ordered however difficult for nurses to actually apply nystatin as patient did not follow commands, did not open her mouth when asked. Started fluconazole. Cont. to monitor. Finished treatment. Hypothyroidism Levothyroxine resumed, continue Hypertension Held home antihypertensive while patient was on vasopressors Now back on home meds - metoprolol, amlodipine, lisinopril Continue to monitor HLD holding statin DMII Hold home metformin Recurrent UTI Continue home methenamine when able to take po Recurrent migraines Continue home riboflavin Chronic normocytic anemia Hgb baseline ~10, stable Monitor CBC Diet: tube feeds stopped as pt now eating DVT prophylaxis: Lovenox SQ Dispo: PT/OT ordered, pt has caregivers CODE STATUS: FULL (pls see detailed discussion regarding her code status in previous documentation) Admission and Anticipated Discharge Date Admission Date: August 06, 2023 Subjective Pt seen in follow up of hypoxic resp. failure, was initially intubated on admission and then required re-intubation during her hosp. stay Initially treated for severe constipation, poss. perf. - this was ruled out, pt seen by gen. surgery and having BMs - however needing bowel regimen Then managed in ICU for pulm. edema, poss. pna Pt extubated Patient was not following commands, was nonverbal. NGT tube placed on (08/19/23) to provide nutrition. -> She started to eat. NG tube removed on (). Psychiatry following closely - started clozapine - currently on 75 HS (per their yesterday note will not increase dose for now) Currently also treated for ESBL E. coli (will finish course tmrw) Patient is now more awake, interactive, and she is able to answer simple questions. Review of Systems Review of Systems: All systems reviewed & are unremarkable except as noted in Subjective Physical Exam Physical Exam: General: sitting up in chair in NAD, on RA Neuro/ Psych: awake, alert, + eye contact, speech slow but fluent, able to answer some simple questions, moves extremities HEENT: NC/AT CV: RRR Resp: no increased effort of breathing , ctab Abdomen: soft Extremities: moves extremities Results & Data Results & Data Vital Signs (Past 12 Hours) Vital Signs Temp Pulse Pulse Resp BP Pulse Ox O2 Del Method 09/06/23 02:48 37 C 65 18 138/67 96 Room Air 09/06/23 00:00 67 09/05/23 23:07 37 C 71 18 141/71 H 99 Room Air 09/05/23 19:45 37 C 65 18 133/71 99 Room Air Laboratory Results 09/05/23 09/05/23 09/05/23 Range/Units 20:13 16:10 11:25 Sodium (136-145) mmol/L Potassium (3.5-5.1) mmol/L Chloride (98-107) mmol/L Carbon Dioxide (21-32) mmol/L Anion Gap (3-11) BUN (6-23) mg/dl Creatinine (0.6-1.2) mg/dl Est Cr Clr Drug Dosing ml/min Est GFR ( Amer) ml/min Est GFR (Non-Af Amer) ml/min BUN/Creatinine Ratio (10-20) Glucose (70-99(Fasting)) mg/dl POC Glucose 106 H 141 H 151 H (70-99) mg/dl Calcium (8.6-10.3) mg/dl Phosphorus (2.5-4.9) mg/dl Magnesium (1.7-2.4) mg/dl 09/05/23 09/05/23 Range/Units 07:34 07:13 Sodium 140 (136-145) mmol/L Potassium 3.8 (3.5-5.1) mmol/L Chloride 105 (98-107) mmol/L Carbon Dioxide 30 (21-32) mmol/L Anion Gap 5 (3-11) BUN 10 (6-23) mg/dl Creatinine 0.36 L (0.6-1.2) mg/dl Est Cr Clr Drug Dosing 110.1 ml/min Est GFR ( Amer) 124.0 ml/min Est GFR (Non-Af Amer) 107.0 ml/min BUN/Creatinine Ratio 27.8 H (10-20) Glucose 131 H (70-99(Fasting)) mg/dl POC Glucose 114 H (70-99) mg/dl Calcium 8.5 L (8.6-10.3) mg/dl Phosphorus 4.0 (2.5-4.9) mg/dl Magnesium 1.8 (1.7-2.4) mg/dl Medications Administered Current Inpatient Medications Acetaminophen (Acetaminophen 325 Mg Tab) 650 mg PO Q4H PRN PRN Reason: Pain or Fever Stop: 09/29/23 21:47 Last Admin: 09/05/23 23:51 Dose: 650 mg Amlodipine Besylate (Amlodipine Besylate 5 Mg Tab) 5 mg PO DAILY JAMEL Stop: 09/22/23 08:59 Last Admin: 09/05/23 08:35 Dose: 5 mg Artificial Tears (Artificial Tears) 1 drops OPB QID PRN PRN Reason: Dryness Stop: 10/05/23 14:52 Clozapine (Clozapine 25 Mg Tab) 75 mg PO HS JAMEL; Protocol Stop: 09/30/23 20:59 Last Admin: 09/05/23 20:26 Dose: 75 mg Enoxaparin Sodium (Enoxaparin Inj 40 Mg/0.4 Ml Syr) 40 mg SQ Q24H JAMEL Stop: 09/11/23 13:59 Last Admin: 09/05/23 15:10 Dose: 40 mg Fluticasone Propionate (Fluticasone Propionate Na Spr 16 Gm Btl) 2 sprays NA DAILY JAMEL Stop: 09/09/23 08:59 Last Admin: 09/05/23 08:34 Dose: 2 sprays Glycerin (Glycerin Adult 12 Supp/Box Supp) 1 supp [place] DAILY PRN PRN Reason: Constipation Stop: 09/24/23 08:59 Thiamine HCl 100 mg/ Syringe 10 mls @ 2 mls/min IV DAILY JAMEL Stop: 09/11/23 08:59 Last Admin: 09/05/23 08:34 Dose: 2 mls/min Pantoprazole Sodium 40 mg/ (Syringe) 10 mls @ 5 mls/min IV DAILY JAMEL Stop: 09/11/23 09:59 Last Admin: 09/05/23 08:36 Dose: 5 mls/min Dextrose/Sodium Chloride (D5w And Nss) 1,000 mls @ 75 mls/hr IV .[id number] JAMEL Stop: 09/16/23 21:14 Last Infusion: 08/18/23 12:26 Dose: Infused Ertapenem 1,000 mg/ Syringe 10 mls @ 2 mls/min IV DAILY JAMEL Stop: 09/07/23 11:29 Last Admin: 09/05/23 08:37 Dose: 2 mls/min Insulin Aspart (Insulin Aspart Per Unit Charge) 0 units SC ACHS JAMEL Stop: 09/30/23 11:29 Last Admin: 09/05/23 20:21 Dose: Not Given Lactobacillus Acidophilus (Advanced Probiotic 625 Mg Capsule) 1,250 mg PO DAILY JAMEL Stop: 10/05/23 16:44 Last Admin: 09/05/23 17:29 Dose: 1,250 mg Levothyroxine Sodium (Levothyroxine Sodium 50 Mcg Tablet) 50 mcg PO DAILYBB JAMEL Stop: 10/02/23 06:29 Last Admin: 09/06/23 05:39 Dose: 50 mcg Lisinopril (Lisinopril 20 Mg Tab) 20 mg PO QAM [facility] Stop: 09/19/23 15:59 Last Admin: 09/05/23 08:35 Dose: 20 mg Metoprolol Succinate (Metoprolol Succ 50mg Ext Rel Tab) 50 mg PO QAM JAMEL Stop: 09/22/23 08:59 Last Admin: 09/05/23 08:35 Dose: 50 mg Polyethylene Glycol (Polyethylene (Miralax) 17 Gm Pack) 17 gm PO DAILY JAMEL Stop: 10/06/23 08:59 Senna/Docusate Sodium (Docusate Sodium/Senna 50/8.6mg Tab) 1 tab PO BID JAMEL Stop: 09/24/23 08:59 Last Admin: 09/05/23 20:03 Dose: Not Given (4) Aspiration pneumonia Laterality: bilateral
[2023-09-06] MEDS: POLYETHYLENE (MIRALAX) 17 GM PACK PO SCH (09:06)
[2023-09-07] MEDS: SUMAtriptan succinate 25 MG TAB PO STA (00:16)
[2023-09-07] MEDS: MELATONIN 3 MG TAB PO PRN (00:17)
[2023-09-07 06:09] LABS: BUN Creatinine Ratio 28.2 (10-20); Calcium 8.8 mg/dl (8.6-10.3); Creatinine Clr Calc Pharmacy 101.6 ml/min; Est GFR (African American) 120.8 ml/min; Est GFR (Non-African American) 104.2 ml/min; Magnesium 1.7 mg/dl (1.7-2.4); Phosphorus 4.4 mg/dl (2.5-4.9); Potassium 3.7 mmol/L (3.5-5.1)
[2023-09-07 06:30] LABS: Hematocrit (blood only) 30.8 % (37.0-47.0); Mean Corpuscular Hgb Conc 32.5 g/dL (32.0-36.0); Mean Corpuscular Volume 86.3 fL (80.0-100.0); Mean Platelet Volume 10.6 fL (9.4-12.4); Platelet Count 251 K/uL (130-400); RDW Coefficient of Variation 15.3 % (11.5-14.5); RDW Standard Deviation 48.9 fL (36.4-46.3); Red Blood Count 3.57 M/uL (4.20-5.40); White Blood Count 3.26 K/ul (4.8-10.8)
[2023-09-07] MEDS: PANTOprazole 40 MG TAB PO SCH (09:30)
--- NOTE | 2023-09-07 09:33 | Neurology Progress Note ---
Date of Service September 07, 2023 Assessment & Plan (1) Cognitive dysfunction: (2) Schizophrenia: (3) Myoclonus: (4) Encephalopathy acute: Plan Patient has an underlying history of cognitive dysfunction that has been labeled "dementia". The etiology of this cognitive dysfunction is likely secondary to her longstanding schizophrenia diagnosis as well as medication effect. High doses of Clozaril can cause cognitive dysfunction as well. On neurologic examination today she had a headache (and has a longstanding history of intermittent headaches. She has no delirium or encephalopathy today. There is no focal weakness noted on exam today. Earlier in this hospitalization she had encephalopathy likely secondary to her pulmonary disease. Patient has a history of a neurosurgical procedure in 1969 for headaches. A bur hole is noted on MRI March 2023 but no tissue damage/encephalomalacia or other abnormalities indicating previous surgery were seen. I am uncertain what this procedure could have been for headaches but she continues to have intermittent headaches ever since. She has a history of myoclonus but this has been resolved and there was no myoclonus on exam today. EEG August 07 showed generalized slowing from encephalopathy but no epileptiform activity. Recommendations: 1. From a neurologic standpoint I do not believe she needs any other tests at this time, including MRI of the brain.. 2. She used to see Dr. Moreno (who retired) as an outpatient. She could follow-up with [facility] neurology after this hospitalization. 3. Although I would defer this to psychiatry, I would keep the dose of Clozaril as low as possible, as long as her schizophrenia is controlled. Overall, I spent a total of 50 minutes with this case including review of records, review of MRI films, direct evaluation the patient at bedside, report generation, and discussion of the case with the patient and RN at bedside, and Dr. Cagle, including differential diagnosis and treatment options. Admission and Anticipated Discharge Date Admission Date: August 06, 2023 Subjective Patient has a complaint of a bioccipital and bifrontal headache of the throbbing nature. She tells me that she has had intermittent headaches since teen years and at age 19 she had a "neurosurgery procedure for headaches". Unfortunately, she continued to have headaches. She denied that they took the tumor out or that she had bleeding in her head. She has had migraines and headaches ever since. Currently she has no pain, weakness, or numbness in her arms or legs. She is not dizzy Nursing reports no new issues overnight. CBC shows anemia and CHEM profile was largely unremarkable. 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 There is no encephalomalacia or obvious tissue damage seen on the MRI. She does have some aging changes with atrophy and old small vessel ischemic disease. I reviewed these films. Results & Data Vital Signs (Past 12 Hours) Vital Signs Temp Pulse Pulse Resp BP Pulse Ox O2 Del Method 09/07/23 07:47 36.4 C L 64 12 160/83 H 97 Room Air 09/07/23 03:15 36.4 C L 64 16 144/73 H 98 Room Air 09/06/23 23:10 36.8 C 65 14 136/60 97 Room Air 09/06/23 23:07 69 Exam (Neuro) Physical Exam: She is awake and alert. Speech is without any obvious aphasia or dysarthria. Mood seems reasonable and affect was mildly flat but otherwise appropriate. She followed one-step commands well and was pleasant and cooperative. Patient was oriented to her name but did not know the month or the year. She knew where she went to high school. She did not know why she was on Clozaril. Extraocular muscles were intact without nystagmus. There is no facial droop and tongue was midline. Neck was supple. The patient did not have any obvious tremor or ataxia but had some drift and decreased facility in the arms bilaterally. Strength otherwise was symmetrical in the arms being close to 5/5 bilaterally. Leg strength was close to 5/5 bilaterally as well. Tone was equal in the legs. Reflexes were 1/4 in all 4 limbs with downgoing toes to plantar stimulation bilaterally. No abnormal involuntary movements including myoclonus was noted. PG Care Time/CCT Total # of Minutes Spent Total Time Spent with Patient: Total time spent is greater than 50% in coordination of care (as documented) at patient's floor/unit and/or counseling patient: Coding Level of Care Code 86797 SUB INP/OBS CARE 3/50MIN Diagnoses Cognitive dysfunction F09 Schizophrenia F20.9 Myoclonus G25.3 Encephalopathy acute G93.40 Time Spent (min) 50
--- NOTE | 2023-09-07 09:36 | Communication Note ---
Date of Service: September 07, [address] Khan. Patient is awaiting guardianship/rehab placement per notes. Last increase in clozaril 1 week ago, will increase to 100 mg hs and ask Dr. Gutierrez for a second opinion on dosing as likely no longer needs previous dose and was having significant side effects (dizziness/falls/constipation) that could have been med related. No repeat head imaging available.
--- NOTE | 2023-09-07 13:39 | Hospitalist Progress Note ---
Date of Service September 07, 2023 Assessment & Plan (1) Stercoral colitis: (2) Constipation, chronic: (3) Full code status: (4) Aspiration pneumonia: (5) On mechanically assisted ventilation: (6) Acute respiratory failure: Plan Pt is a 72yoF with PMHx significant for HTN, HLD, DMII, hypothyroidism, Hx of brain tumor s/p partial resection, schizophrenia, prior migraine, chronic anemia, recurrent UTIs, urinary incontinence and urinary bladder diverticulum presented after being found down and minimally responsive at home. Patient was admitted to the ICU for management and evaluation of septic shock on admission. Was downgraded and re-intubated in the ICU from 08/11- 08/15. Had bronchoscopy on 08/11 without significant findings but did grow ryan. Acute respiratory failure due to pneumonia is currently resolved. She was also treated for possible ryan esophagitis with fluconazole and completed treatment while hospitalized. During her course, pt also had a UTI which was treated with IV Ertapenem from 08/28- 09/06. She completed UTI treatment while hospitalized. Her course was also further complicated by cognitive impairment and acute delirium in the setting of her known schizophrenia. Her clozaril which was held during her cognitive impairment was slowly titrated back up with the assistance of psychiatry. Neurology was also consulted for input. Previously recommended an MRI brain which later they noted was not needed. Pt is currently alert and oriented x2, interactive, back on clozaril 100mg qhs. During her cognitive impairment, pt was not eating and was started on tube feeds (08/19-) for severe malnutrition and failure to thrive in an adult. She is currently eating by mouth once more, with improved appetite. On admission, she was also noted to have severe constipation with stercoral colitis, likely in the setting of her chronic clozaril use. She was treated with multiple enemas, laxatives and stool softeners during her course. Her current bowl regimen includes Senekot S 1 tab BID and daily miralax 17g. She has been having daily bowel movements at this time. Hypothyroidism-Levothyroxine was continued. Hypertension-Held home antihypertensives while patient was on vasopressors. Currently back on home medications metoprolol, amlodipine, lisinopril. Blood pressure currently well controlled. Hyperlipidemia- her statin was held while on daptomycin during her early course. Resumed. DMII- her home metformin was held and she was started on insulin sliding scale once more when taking po again. Recurrent UTI-Initially home methenamine was held on admission, when unable to take po and during active treatment of her UTI. It is was resumed once her UTI treatment was completed. Recurrent migraines-home riboflavin was held, can continue after discharge. Chronic normocytic anemia: Hgb baseline ~9-10, stable. Anemia workup pending. Pt was evaluated by physical and occupational therapy and the current recommendation is acute rehab after hospitalization. Her course was complicated by there being no legal POA in the setting of cognitive impairment. She was previously with [facility] with a caregiver, Sidney assisting and listed in the chart. An application for guardianship has since been submitted and per Case Management's notation on 09/06 a discussion was had with Sidney and an auth was submitted to [facility] for placement. Pt is currently stable for discharge to acute rehab. CODE STATUS: FULL (pls see detailed discussion regarding her code status in previous documentation) Diet: DMII, soft bite-sized DVT prophylaxis: Lovenox SQ Dispo: Acute rehab, auth submitted to [facility], pt downgraded to med/surg in the interim Admission and Anticipated Discharge Date Admission Date: August 06, 2023 Subjective pt was seen sitting in chair at bedside. Stated that she wanted to lay down as her "backside hurts". States that she "does not want to sound lazy" but would like to be moved to the bed. Otherwise denied acute concerns. Review of Systems Review of Systems: All systems reviewed & are unremarkable except as noted in Subjective Physical Exam Physical Exam: General: sitting in chair at bedside Psych: mood and affect appropriate Neuro: Alert, oriented HEENT: NC/AT CV: RRR Resp:no increased effort of breathing Abdomen: soft Extremities:waffle boots lower extremities bilaterally. Results & Data Results & Data Vital Signs (Past 12 Hours) Vital Signs Temp Pulse Pulse Resp BP Pulse Ox O2 Del Method 09/07/23 08:00 61 09/07/23 07:47 36.4 C L 64 12 160/83 H 97 Room Air 09/07/23 03:15 36.4 C L 64 16 144/73 H 98 Room Air (4) Aspiration pneumonia Laterality: bilateral
[2023-09-07] MEDS: cloZAPine 100 MG TAB PO SCH (19:46)
[2023-09-08 08:14] LABS: Basophils # (auto) 0.05 K/uL (0.00-0.20); Basophils % (auto) 1.6 %; Eosinophils # (auto) 0.01 K/uL (0.00-0.50); Eosinophils % (auto) 0.3 %; Hematocrit (blood only) 30.1 % (37.0-47.0); Hemoglobin 9.6 g/dl (12.0-16.0); Immature Granulocytes # (auto) 0.01 K/uL (0.01-0.20); Immature Granulocytes % (auto) 0.3 %; Lymphocytes # (auto) 1.39 K/uL (1.20-3.40); Lymphocytes % (auto) 43.4 %; Mean Corpuscular Hemoglobin 27.8 pg (25.0-34.0); Mean Corpuscular Hgb Conc 31.9 g/dL (32.0-36.0); Mean Corpuscular Volume 87.2 fL (80.0-100.0); Mean Platelet Volume 9.9 fL (9.4-12.4); Monocytes # (auto) 0.39 K/uL (0.11-0.59); Monocytes % (auto) 12.2 %; Neutrophils # (auto) 1.35 K/uL (1.40-6.50); Neutrophils % (auto) 42.2 %; Platelet Count 259 K/uL (130-400); RDW Coefficient of Variation 15.5 % (11.5-14.5); RDW Standard Deviation 49.2 fL (36.4-46.3); Red Blood Count 3.45 M/uL (4.20-5.40)
[2023-09-08 08:29] LABS: Albumin Globulin Ratio 1.6 (0.9-2); Albumin Level 3.2 gm/dl (3.4-5.0); Bilirubin,Total 0.3 mg/dl (0.2-1.0); Calcium 8.7 mg/dl (8.6-10.3); Creatinine Clr Calc Pharmacy 113.2 ml/min; Est GFR (African American) 125.1 ml/min; Magnesium 1.7 mg/dl (1.7-2.4); Phosphorus 4.4 mg/dl (2.5-4.9); Potassium 3.5 mmol/L (3.5-5.1); Total Protein 5.2 gm/dl (6.0-8.3)
[2023-09-08] MEDS ORDERED: GLUCAGON FOR INJ 1 MG VIAL SQ PRN (12:32)
[2023-09-08] MEDS ORDERED: GLUCOSE 40% GEL 15 GM TUBE PO PRN (12:32)
[2023-09-08] MEDS ORDERED: GLUCOSE 10 TAB/TUBE PO PRN (12:32)
[2023-09-08] MEDS ORDERED: CARBOHYDRATES FOR HYPOGLYCEMIA PO PRN (12:32)
[2023-09-08] MEDS ORDERED: DEXTROSE 50% 50 ML SYRINGE IV PRN (12:32)
--- NOTE | 2023-09-08 12:56 | Hospitalist Progress Note ---
Date of Service September 08, 2023 Assessment & Plan (1) Stercoral colitis: (2) Constipation, chronic: (3) Full code status: (4) Aspiration pneumonia: (5) On mechanically assisted ventilation: (6) Acute respiratory failure: Plan Pt is a 72yoF with PMHx significant for HTN, HLD, DMII, hypothyroidism, Hx of brain tumor s/p partial resection, schizophrenia, prior migraine, chronic anemia, recurrent UTIs, urinary incontinence and urinary bladder diverticulum presented after being found down and minimally responsive at home. Patient was admitted to the ICU for management and evaluation of septic shock on admission. Was downgraded and re-intubated in the ICU from 08/11- 08/15. Had bronchoscopy on 08/11 without significant findings but did grow ryan. Acute respiratory failure due to pneumonia is currently resolved. She was also treated for possible ryan esophagitis with fluconazole and completed treatment while hospitalized. During her course, pt also had a UTI which was treated with IV Ertapenem from 08/28- 09/06. She completed UTI treatment while hospitalized. Her course was also further complicated by cognitive impairment and acute delirium in the setting of her known schizophrenia. Her clozaril which was held during her cognitive impairment was slowly titrated back up with the assistance of psychiatry. Neurology was also consulted for input. Previously recommended an MRI brain which later they noted was not needed. Also advised followup with [facility] Neurology after discharge. Advising and deferring to Psychiatry to keep dose of clozaril as low as possible while treating her schizophrenia. Pt is currently alert and oriented x2, interactive, on clozaril 100mg qhs at this time. During her cognitive impairment, pt was not eating and was started on tube feeds (08/19-) for severe malnutrition and failure to thrive in an adult. She is currently eating by mouth once more, with improved appetite. On admission, she was also noted to have severe constipation with stercoral colitis, likely in the setting of her chronic clozaril use. She was treated with multiple enemas, laxatives and stool softeners during her course. Her current b owl regimen includes Senekot S 1 tab BID and daily miralax 17g. She has been having daily bowel movements at this time. Hypothyroidism-Levothyroxine was continued. Hypertension-Held home antihypertensives while patient was on vasopressors. Currently back on home medications metoprolol, amlodipine, lisinopril. Blood pressure currently well controlled. Hyperlipidemia- her statin was held while on daptomycin during her early course. Resumed. DMII- her home metformin was held and she was started on insulin sliding scale once more when taking po again. Recurrent UTI-Initially home methenamine was held on admission, when unable to take po and during active treatment of her UTI. It is was resumed once her UTI treatment was completed. Recurrent migraines-home riboflavin was held, can continue after discharge. Chronic normocytic anemia: Hgb baseline ~9-10, stable. Anemia workup pending. Pt was evaluated by physical and occupational therapy and the current recommendation is acute rehab after hospitalization. Her course was complicated by there being no legal POA in the setting of cognitive impairment. She was previously with [facility] with a caregiver, Sidney assisting and listed in the chart. An application for guardianship has since been submitted and per Case Management's notation on 09/06 a discussion was had with Sidney and an auth was submitted to [facility] for placement. Pt is currently stable for discharge to acute rehab. CODE STATUS: FULL (pls see detailed discussion regarding her code status in previous documentation) Diet: DMII, soft bite-sized DVT prophylaxis: Lovenox SQ Dispo: Acute rehab, auth submitted to [facility], pt downgraded to med/surg in the interim Admission and Anticipated Discharge Date Admission Date: August 06, 2023 Subjective Pt was seen laying in bed in the early AM. Awakens easily. States that she has no acute concerns. Feeling better in the "backside area". Review of Systems Review of Systems: All systems reviewed & are unremarkable except as noted in Subjective Physical Exam Physical Exam: General: laying in bed Psych: mood and affect appropriate Neuro: oriented HEENT: NC/AT CV: RRR Resp:no increased effort of breathing Abdomen: soft Extremities:waffle boots lower extremities bilaterally. Results & Data Results & Data Vital Signs (Past 12 Hours) Vital Signs Temp Pulse Pulse Resp BP BP Pulse Ox 09/08/23 08:30 60 09/08/23 07:24 36.4 C L 56 L 20 149/75 H 99 09/08/23 07:11 60 09/08/23 02:58 64 15 169/76 H 100 09/07/23 23:17 36.3 C L 62 18 128/60 98 09/07/23 23:01 58 L O2 Del Method 09/08/23 08:30 09/08/23 07:24 Room Air 09/08/23 07:11 09/08/23 02:58 Room Air 09/07/23 23:17 Room Air 09/07/23 23:01 (4) Aspiration pneumonia Laterality: bilateral
[2023-09-08] MEDS: METHENAMINE HIPPURATE 1 GM TAB PO SCH (14:07)
[2023-09-08] MEDS: INSULIN ASPART PER UNIT CHARGE SC SCH (17:07)
[2023-09-09 06:19] LABS: Albumin Globulin Ratio 1.5 (0.9-2); Albumin Level 3.3 gm/dl (3.4-5.0); BUN Creatinine Ratio 26.3 (10-20); Bilirubin,Total 0.3 mg/dl (0.2-1.0); Calcium 8.7 mg/dl (8.6-10.3); Creatinine Clr Calc Pharmacy 104.3 ml/min; Est GFR (African American) 121.8 ml/min; Est GFR (Non-African American) 105.1 ml/min; Globulin 2.2 gm/dl (2.5-4.0); Magnesium 1.7 mg/dl (1.7-2.4); Phosphorus 3.9 mg/dl (2.5-4.9); Potassium 3.8 mmol/L (3.5-5.1); Total Protein 5.5 gm/dl (6.0-8.3)
[2023-09-09 06:22] LABS: Hematocrit (blood only) 32.4 % (37.0-47.0); Hemoglobin 10.2 g/dl (12.0-16.0); Mean Corpuscular Hemoglobin 27.6 pg (25.0-34.0); Mean Corpuscular Hgb Conc 31.5 g/dL (32.0-36.0); Mean Corpuscular Volume 87.8 fL (80.0-100.0); Mean Platelet Volume 10.5 fL (9.4-12.4); Platelet Count 280 K/uL (130-400); RDW Coefficient of Variation 15.4 % (11.5-14.5); RDW Standard Deviation 49.6 fL (36.4-46.3); Red Blood Count 3.69 M/uL (4.20-5.40); White Blood Count 3.81 K/ul (4.8-10.8)
[2023-09-09 06:38] LABS: Ferritin 34.2 ng/ml (8-388)
[2023-09-09 06:44] LABS: Folate (Folic Acid),Ser orPlas 19.6 ng/ml (>5.38)
[2023-09-09] MEDS: ATORVASTATIN 20 MG TAB PO SCH (08:57)
[2023-09-09] MEDS: ONDANSETRON INJ 2 MG/ML 2 ML VIAL IV PRN (10:16)
[2023-09-09] MEDS: IRON SUCROSE 200 MG in 0.9 % SODIUM CHLORIDE 100 ML IV ONE (13:57)
--- NOTE | 2023-09-09 14:58 | Hospitalist Progress Note ---
Date of Service September 09, 2023 Assessment & Plan (1) Stercoral colitis: (2) Constipation, chronic: (3) Full code status: (4) Aspiration pneumonia: (5) On mechanically assisted ventilation: (6) Acute respiratory failure: Plan Pt is a 72yoF with PMHx significant for HTN, HLD, DMII, hypothyroidism, Hx of brain tumor s/p partial resection, schizophrenia, prior migraine, chronic anemia, recurrent UTIs, urinary incontinence and urinary bladder diverticulum presented after being found down and minimally responsive at home. Patient was admitted to the ICU for management and evaluation of septic shock on admission. Was downgraded and re-intubated in the ICU from 08/11- 08/15. Had bronchoscopy on 08/11 without significant findings but did grow ryan. Acute respiratory failure due to pneumonia is currently resolved. She was also treated for possible ryan esophagitis with fluconazole and completed treatment while hospitalized. During her course, pt also had a UTI which was treated with IV Ertapenem from 08/28- 09/06. She completed UTI treatment while hospitalized. Her course was also further complicated by cognitive impairment and acute delirium in the setting of her known schizophrenia. Her clozaril which was held during her cognitive impairment was slowly titrated back up with the assistance of psychiatry. Neurology was also consulted for input. Previously recommended an MRI brain which later they noted was not needed. Also advised followup with [facility] after discharge. Advising and deferring to Psychiatry to keep dose of clozaril as low as possible while treating her schizophrenia. Pt is currently alert and oriented x2, interactive, on clozaril 100mg qhs at this time. During her cognitive impairment, pt was not eating and was started on tube feeds (08/19-) for severe malnutrition and failure to thrive in an adult. She is currently eating by mouth once more, with improved appetite. On admission, she was also noted to have severe constipation with stercoral colitis, likely in the setting of her chronic clozaril use. She was treated with multiple enemas, laxatives and stool softeners during her course. Her current bowl regimen includes Senekot S 1 tab BID and daily miralax 17g. She has been having daily bowel movements at this time. Hypothyroidism-Levothyroxine was continued. Hypertension-Held home antihypertensives while patient was on vasopressors. Currently back on home medications metoprolol, amlodipine, lisinopril. Blood pressure currently well controlled. Hyperlipidemia- her statin was held while on daptomycin during her early course. Resumed. DMII- her home metformin was held and she was started on insulin sliding scale once more when taking po again. Recurrent UTI-Initially home methenamine was held on admission, when unable to take po and during active treatment of her UTI. It is was resumed once her UTI treatment was completed. Recurrent migraines-home riboflavin was held, can continue after discharge. Chronic normocytic anemia: Hgb baseline ~9-10, stable. Anemia workup noting low iron level s/p IV Venofer on 09/08. Pt was evaluated by physical and occupational therapy and the current recommendation is acute rehab after hospitalization. Her course was complicated by there being no legal POA in the setting of cognitive impairment. She was previously with [facility] with a caregiver, Little assisting and listed in the chart. An application for guardianship has since been submitted and per Case Management's notation on 09/06 a discussion was had with Sidney and an auth was submitted to [facility] for placement. Pt is currently stable for discharge to acute rehab. CODE STATUS: FULL (pls see detailed discussion regarding her code status in previous documentation) Diet: DMII, soft bite-sized DVT prophylaxis: Lovenox SQ Dispo: Acute rehab, auth submitted to [facility], pt downgraded to med/surg in the interim Admission and Anticipated Discharge Date Admission Date: August 06, 2023 Subjective Pt was seen laying in bed. Stated that she was sleepy. Oriented to time. Per nursing episode of N/V, she states it resolved and she is feeling better. Review of Systems Review of Systems: All systems reviewed & are unremarkable except as noted in Subjective Physical Exam Physical Exam: General: laying in bed Psych: mood and affect appropriate Neuro: oriented HEENT: NC/AT CV: RRR Resp:no increased effort of breathing Abdomen: soft Extremities:waffle boots lower extremities bilaterally. Results & Data Results & Data Vital Signs (Past 12 Hours) Vital Signs Temp Pulse Resp BP Pulse Ox O2 Del Method 09/09/23 13:53 36.9 C 66 17 138/71 100 Room Air 09/09/23 07:28 36.6 C 56 L 18 177/80 H 100 Room Air (4) Aspiration pneumonia Laterality: bilateral
[2023-09-10 06:31] LABS: Hemoglobin 9.9 g/dl (12.0-16.0); Mean Corpuscular Hemoglobin 27.8 pg (25.0-34.0); Mean Corpuscular Hgb Conc 31.9 g/dL (32.0-36.0); Mean Corpuscular Volume 87.1 fL (80.0-100.0); Mean Platelet Volume 10.2 fL (9.4-12.4); Platelet Count 254 K/uL (130-400); RDW Coefficient of Variation 15.4 % (11.5-14.5); RDW Standard Deviation 49.2 fL (36.4-46.3); Red Blood Count 3.56 M/uL (4.20-5.40); White Blood Count 3.44 K/ul (4.8-10.8)
[2023-09-10 06:50] LABS: Albumin Globulin Ratio 1.6 (0.9-2); Albumin Level 3.4 gm/dl (3.4-5.0); Bilirubin,Total 0.4 mg/dl (0.2-1.0); Creatinine Clr Calc Pharmacy 88.1 ml/min; Est GFR (African American) 115.2 ml/min; Est GFR (Non-African American) 99.4 ml/min; Globulin 2.1 gm/dl (2.5-4.0); Magnesium 1.8 mg/dl (1.7-2.4); Phosphorus 4.2 mg/dl (2.5-4.9); Potassium 3.9 mmol/L (3.5-5.1); Total Protein 5.5 gm/dl (6.0-8.3)
[2023-09-10] MEDS: METOPROLOL SUCC 25MG EXT REL TAB PO SCH (08:51)
--- NOTE | 2023-09-10 17:59 | Hospitalist Progress Note ---
Date of Service September 10, 2023 Assessment & Plan (1) Stercoral colitis: (2) Constipation, chronic: (3) Full code status: (4) Aspiration pneumonia: (5) On mechanically assisted ventilation: (6) Acute respiratory failure: Plan Pt is a 72yoF with PMHx significant for HTN, HLD, DMII, hypothyroidism, Hx of brain tumor s/p partial resection, schizophrenia, prior migraine, chronic anemia, recurrent UTIs, urinary incontinence and urinary bladder diverticulum presented after being found down and minimally responsive at home. Patient was admitted to the ICU for management and evaluation of septic shock on admission. Was downgraded and re-intubated in the ICU from 08/11- 08/15. Had bronchoscopy on 08/11 without significant findings but did grow ryan. Acute respiratory failure due to pneumonia is currently resolved. She was also treated for possible ryan esophagitis with fluconazole and completed treatment while hospitalized. During her course, pt also had a UTI which was treated with IV Ertapenem from 08/28- 09/06. She completed UTI treatment while hospitalized. Her course was also further complicated by cognitive impairment and acute delirium in the setting of her known schizophrenia. Her clozaril which was held during her cognitive impairment was slowly titrated back up with the assistance of psychiatry. Neurology was also consulted for input. Previously recommended an MRI brain which later they noted was not needed. Also advised followup with [facility] Neurology after discharge. Advising and deferring to Psychiatry to keep dose of clozaril as low as possible while treating her schizophrenia. Pt is currently alert and oriented x2, interactive, on clozaril 100mg qhs at this time. During her cognitive impairment, pt was not eating and was started on tube feeds (08/19-) for severe malnutrition and failure to thrive in an adult. She is currently eating by mouth once more, with improved appetite. On admission, she was also noted to have severe constipation with stercoral colitis, likely in the setting of her chronic clozaril use. She was treated with multiple enemas, laxatives and stool softeners during her course. Her current bowl regimen includes Senekot S 1 tab BID and daily miralax 17g. She has been having daily bowel movements more or less at this time up until 09/06. Daily scheduled glycerin suppository added. Hypothyroidism-Levothyroxine was continued. Hypertension-Held home antihypertensives while patient was on vasopressors. Currently back on home medications metoprolol, amlodipine, lisinopril. Blood pressure currently well controlled. Hyperlipidemia- her statin was held while on daptomycin during her early course. Resumed. DMII- her home metformin was held and she was started on insulin sliding scale once more when taking po again. Recurrent UTI-Initially home methenamine was held on admission, when unable to take po and during active treatment of her UTI. It is was resumed once her UTI treatment was completed. Recurrent migraines-home riboflavin was held, can continue after discharge. Chronic normocytic anemia: Hgb baseline ~9-10, stable. Anemia workup noting low iron level s/p IV Venofer on 09/08. Pt was evaluated by physical and occupational therapy and the current recommendation is acute rehab after hospitalization. Her course was complicated by there being no legal POA in the setting of cognitive impairment. She was previously with [facility] with a caregiver, Sidney assisting and listed in the chart. An application for guardianship has since been submitted and per Case Management's notation on 09/06 a discussion was had with Sidney and an auth was submitted to [facility] for placement. Pt is currently stable for discharge to acute rehab. CODE STATUS: FULL (pls see detailed discussion regarding her code status in previous documentation) Diet: DMII, soft bite-sized DVT prophylaxis: Lovenox SQ Dispo: Acute rehab, auth submitted to [facility], pt downgraded to med/surg in the interim Admission and Anticipated Discharge Date Admission Date: August 06, 2023 Subjective Pt was seen laying in bed. Stated that she had a headache. AAOx2. did not know the year. Review of Systems Review of Systems: All systems reviewed & are unremarkable except as noted in Subjective Physical Exam Physical Exam: General: laying in bed Psych: mood and affect appropriate Neuro: oriented HEENT: NC/AT CV: RRR Resp:no increased effort of breathing Abdomen: soft Extremities:waffle boots lower extremities bilaterally. Results & Data Results & Data Vital Signs (Past 12 Hours) Vital Signs Temp Pulse Resp BP Pulse Ox O2 Del Method 09/10/23 14:23 37.1 C 65 16 117/65 100 Room Air 09/10/23 11:18 36.8 C 62 12 112/68 100 Room Air 09/10/23 07:43 36.2 C L 62 12 147/78 H 100 Room Air (4) Aspiration pneumonia Laterality: bilateral
[2023-09-11 06:36] LABS: Hematocrit (blood only) 30.7 % (37.0-47.0); Mean Corpuscular Hemoglobin 28.1 pg (25.0-34.0); Mean Corpuscular Hgb Conc 32.6 g/dL (32.0-36.0); Mean Corpuscular Volume 86.2 fL (80.0-100.0); Mean Platelet Volume 10.3 fL (9.4-12.4); Platelet Count 246 K/uL (130-400); RDW Coefficient of Variation 15.3 % (11.5-14.5); RDW Standard Deviation 48.4 fL (36.4-46.3); Red Blood Count 3.56 M/uL (4.20-5.40); White Blood Count 3.22 K/ul (4.8-10.8)
[2023-09-11 06:56] LABS: Albumin Globulin Ratio 1.6 (0.9-2); Albumin Level 3.4 gm/dl (3.4-5.0); BUN Creatinine Ratio 29.3 (10-20); Bilirubin,Total 0.3 mg/dl (0.2-1.0); Calcium 9.1 mg/dl (8.6-10.3); Creatinine Clr Calc Pharmacy 96.7 ml/min; Est GFR (African American) 118.8 ml/min; Est GFR (Non-African American) 102.5 ml/min; Globulin 2.1 gm/dl (2.5-4.0); Magnesium 1.7 mg/dl (1.7-2.4); Phosphorus 4.3 mg/dl (2.5-4.9); Potassium 3.7 mmol/L (3.5-5.1); Total Protein 5.5 gm/dl (6.0-8.3)
[2023-09-11] MEDS: GLYCERIN ADULT 12 SUPP/BOX SUPP PR SCH (08:48)
--- NOTE | 2023-09-11 12:08 | Hospitalist Progress Note ---
Date of Service September 11, 2023 Assessment & Plan (1) Stercoral colitis: (2) Constipation, chronic: (3) Full code status: (4) Aspiration pneumonia: (5) On mechanically assisted ventilation: (6) Acute respiratory failure: Plan Pt is a 72yoF with PMHx significant for HTN, HLD, DMII, hypothyroidism, Hx of brain tumor s/p partial resection, schizophrenia, prior migraine, chronic anemia, recurrent UTIs, urinary incontinence and urinary bladder diverticulum presented after being found down and minimally responsive at home. Patient was admitted to the ICU for management and evaluation of septic shock on admission. Was downgraded and re-intubated in the ICU from 08/11- 08/15. Had bronchoscopy on 08/11 without significant findings but did grow ryan. Acute respiratory failure due to pneumonia is currently resolved. She was also treated for possible ryan esophagitis with fluconazole and completed treatment while hospitalized. During her course, pt also had a UTI which was treated with IV Ertapenem from 08/28- 09/06. She completed UTI treatment while hospitalized. Her course was also further complicated by cognitive impairment and acute delirium in the setting of her known schizophrenia. Her clozaril which was held during her cognitive impairment was slowly titrated back up with the assistance of psychiatry. Neurology was also consulted for input. Previously recommended an MRI brain which later they noted was not needed. Also advised followup with [facility] Neurology after discharge. Advising and deferring to Psychiatry to keep dose of clozaril as low as possible while treating her schizophrenia. Pt is currently alert and oriented x2, interactive, on clozaril 100mg qhs at this time. During her cognitive impairment, pt was not eating and was started on tube feeds (08/19-) for severe malnutrition and failure to thrive in an adult. She is currently eating by mouth once more, with improved appetite. On admission, she was also noted to have severe constipation with stercoral colitis, likely in the setting of her chronic clozaril use. She was treated with multiple enemas, laxatives and stool softeners during her course. Her current bowl regimen includes Senekot S 1 tab BID and daily miralax 17g. She has been having daily bowel movements more or less at this time up until 09/06. Daily scheduled glycerin suppository added. Hypothyroidism-Levothyroxine was continued. Hypertension-Held home antihypertensives while patient was on vasopressors. Currently back on home medications metoprolol, amlodipine, lisinopril. Blood pressure currently well controlled. Hyperlipidemia- her statin was held while on daptomycin during her early course. Resumed. DMII- her home metformin was held and she was started on insulin sliding scale once more when taking po again. Recurrent UTI-Initially home methenamine was held on admission, when unable to take po and during active treatment of her UTI. It is was resumed once her UTI treatment was completed. Recurrent migraines-home riboflavin was held, can continue after discharge. Chronic normocytic anemia: Hgb baseline ~9-10, stable. Anemia workup noting low iron level s/p IV Venofer on 09/08. Bradycardia- metoprolol dose decreased to 25mg Pt was evaluated by physical and occupational therapy and the current recommendation is acute rehab after hospitalization. Her course was complicated by there being no legal POA in the setting of cognitive impairment. She was previously with [employer] with a caregiver, Sidney assisting and listed in the chart. An application for guardianship has since been submitted and per Case Management's notation on 09/06 a discussion was had with Sidney and an auth was submitted to [facility] for placement. Pt is currently stable for discharge to acute rehab. CODE STATUS: FULL (pls see detailed discussion regarding her code status in previous documentation) Diet: DMII, soft bite-sized DVT prophylaxis: Lovenox SQ Dispo: Acute rehab, auth submitted to [facility], pt downgraded to med/surg in t he interim Admission and Anticipated Discharge Date Admission Date: August 06, 2023 Subjective Pt was seen laying in bed. Stated that she had a headache. AAOx2. did not know the year. Review of Systems Review of Systems: All systems reviewed & are unremarkable except as noted in Subjective Physical Exam Physical Exam: General: laying in bed Psych: mood and affect appropriate Neuro: oriented HEENT: NC/AT CV: RRR Resp:no increased effort of breathing Abdomen: soft Extremities:waffle boots lower extremities bilaterally. Results & Data Results & Data Vital Signs (Past 12 Hours) Vital Signs Temp Pulse Resp BP Pulse Ox O2 Del Method 09/11/23 07:26 36.5 C 57 L 16 148/79 H 100 Room Air (4) Aspiration pneumonia Laterality: bilateral
[2023-09-11] MEDS: LACTULOSE 200GM/700ML WTR ENEMA PR SCH (19:54)
[2023-09-12 07:05] LABS: Hematocrit (blood only) 31.5 % (37.0-47.0); Hemoglobin 10.1 g/dl (12.0-16.0); Mean Corpuscular Hemoglobin 28.1 pg (25.0-34.0); Mean Corpuscular Hgb Conc 32.1 g/dL (32.0-36.0); Mean Corpuscular Volume 87.7 fL (80.0-100.0); Platelet Count 232 K/uL (130-400); RDW Coefficient of Variation 15.3 % (11.5-14.5); RDW Standard Deviation 49.5 fL (36.4-46.3); Red Blood Count 3.59 M/uL (4.20-5.40); White Blood Count 3.65 K/ul (4.8-10.8)
[2023-09-12 07:24] LABS: Albumin Globulin Ratio 1.9 (0.9-2); Albumin Level 3.4 gm/dl (3.4-5.0); BUN Creatinine Ratio 23.8 (10-20); Bilirubin,Total 0.4 mg/dl (0.2-1.0); Calcium 8.9 mg/dl (8.6-10.3); Creatinine Clr Calc Pharmacy 94.4 ml/min; Est GFR (African American) 117.9 ml/min; Est GFR (Non-African American) 101.7 ml/min; Globulin 1.8 gm/dl (2.5-4.0); Magnesium 1.7 mg/dl (1.7-2.4); Potassium 3.7 mmol/L (3.5-5.1); Total Protein 5.2 gm/dl (6.0-8.3)
[2023-09-12 07:26] LABS: Basophils # (auto) 0.03 K/uL (0.00-0.20); Basophils % (auto) 0.8 %; Immature Granulocytes # (auto) 0.02 K/uL (0.01-0.20); Immature Granulocytes % (auto) 0.5 %; Lymphocytes # (auto) 1.93 K/uL (1.20-3.40); Lymphocytes % (auto) 52.9 %; Monocytes # (auto) 0.47 K/uL (0.11-0.59); Monocytes % (auto) 12.9 %; Neutrophils % (auto) 32.9 %
--- NOTE | 2023-09-12 08:07 | Hospitalist Progress Note ---
Date of Service September 12, 2023 Assessment & Plan (1) Stercoral colitis: (2) Constipation, chronic: (3) Full code status: (4) Aspiration pneumonia: (5) On mechanically assisted ventilation: (6) Acute respiratory failure: Plan Pt is a 72yoF with PMHx significant for HTN, HLD, DMII, hypothyroidism, Hx of brain tumor s/p partial resection, schizophrenia, prior migraine, chronic anemia, recurrent UTIs, urinary incontinence and urinary bladder diverticulum presented after being found down and minimally responsive at home. Patient was admitted to the ICU for management and evaluation of septic shock on admission. Was downgraded and re-intubated in the ICU from 08/11- 08/15. Had bronchoscopy on 08/11 without significant findings but did grow ryan. Acute respiratory failure due to pneumonia is currently resolved. She was also treated for possible ryan esophagitis with fluconazole and completed treatment while hospitalized. During her course, pt also had a UTI which was treated with IV Ertapenem from 08/28- 09/06. She completed UTI treatment while hospitalized. Her course was also further complicated by cognitive impairment and acute delirium in the setting of her known schizophrenia. Her clozaril which was held during her cognitive impairment was slowly titrated back up with the assistance of psychiatry. Neurology was also consulted for input. Previously recommended an MRI brain which later they noted was not needed. Also advised followup with [facility] Neurology after discharge. Advising and deferring to Psychiatry to keep dose of clozaril as low as possible while treating her schizophrenia. Pt is currently alert and oriented x2, interactive, on clozaril 100mg qhs at this time. During her cognitive impairment, pt was not eating and was started on tube feeds (08/19-) for severe malnutrition and failure to thrive in an adult. She is currently eating by mouth once more, with improved appetite. On admission, she was also noted to have severe constipation with stercoral colitis, likely in the setting of her chronic clozaril use. She was treated with multiple enemas, laxatives and stool softeners during her course. She needs to have ongoing bowel regimen and monitor for constipation. Currently on Senekot S 1 tab BID and daily miralax 17g. Hypothyroidism-Levothyroxine was continued. Hypertension-Held home antihypertensives while patient was on vasopressors. Currently back on home medications metoprolol, amlodipine, lisinopril. Blood pressure currently well controlled. Hyperlipidemia- her statin was held while on daptomycin during her early course. Resumed. DMII- her home metformin was held and she was started on insulin sliding scale once more when taking po again. Recurrent UTI-Initially home methenamine was held on admission, when unable to take po and during active treatment of her UTI. It is was resumed once her UTI treatment was completed. Recurrent migraines-home riboflavin was held, can continue after discharge. Chronic normocytic anemia: Hgb baseline ~9-10, stable. Anemia workup noting low iron level s/p IV Venofer on 09/08. Bradycardia- metoprolol dose decreased to 25mg Pt was evaluated by physical and occupational therapy and the current recommendation is acute rehab after hospitalization. Her course was complicated by there being no legal POA in the setting of cognitive impairment. She was previously with [employer] with a caregiver, Sidney assisting and listed in the chart. An application for guardianship has since been submitted and per Case Management's notation on 09/06 a discussion was had with Sidney and an auth was submitted to [facility] for placement. Pt is currently stable for discharge to acute rehab. CODE STATUS: FULL (pls see detailed discussion regarding her code status in previous documentation) Diet: DMII, soft bite-sized DVT prophylaxis: Lovenox SQ Dispo: Acute rehab, auth submitted to [facility], pt downgraded to med/surg in the interim Admission and Anticipated Discharge Date Admission Date: August 06, 2023 Subjective Pt seen in follow up of hypoxic resp. failure, was initially intubated on admission and then required re-intubation during her hosp. stay Initially treated for severe constipation, poss. perf. - this was ruled out, pt seen by gen. surgery and having BMs - however needing bowel regimen Then managed in ICU for pulm. edema, poss. pna Pt extubated Patient was not following commands, was nonverbal. NGT tube placed on (08/19/23) to provide nutrition. -> She started to eat. NG tube removed on (). Psychiatry following closely - started clozapine - currently on 100 Also treated for ESBL E. coli (finished abx course) Patient is now awake, interactive, and answers all questions appropriately. She has occasional headaches which is not unusual for her, otherwise denies any symptoms. awaiting discharge. CM involved. Review of Systems Review of Systems: All systems reviewed & are unremarkable except as noted in Subjective Physical Exam Physical Exam: General: sitting up in bed in NAD, on RA, watching TV Neuro/ Psych: awake, alert, + eye contact, speech fluent, no facial asymmetry, able to answer questions appropriately - able to hold conversation w/o any issues, moves extremities HEENT: NC/AT CV: RRR Resp: no increased effort of breathing , ctab Abdomen: soft Extremities: moves extremities Results & Data Results & Data Vital Signs (Past 12 Hours) Vital Signs Temp Pulse Resp BP Pulse Ox O2 Del Method 09/12/23 07:05 36.7 C 63 16 158/69 H 100 Room Air Laboratory Results 09/12/23 09/12/23 09/11/23 Range/Units 07:34 06:28 20:51 WBC 3.65 L (4.8-10.8) K/ul RBC 3.59 L (4.20-5.40) M/uL Hgb 10.1 L (12.0-16.0) g/dl Hct 31.5 L (37.0-47.0) % MCV 87.7 (80.0-100.0) fL MCH 28.1 (25.0-34.0) pg MCHC 32.1 (32.0-36.0) g/dL RDW Std Deviation 49.5 H (36.4-46.3) fL RDW Coeff of Cyn 15.3 H (11.5-14.5) % Plt Count 232 (130-400) K/uL MPV 10.0 (9.4-12.4) fL Immature Gran % (Auto) 0.5 % Neut % (Auto) 32.9 % Lymph % (Auto) 52.9 % [place] % (Auto) 12.9 % Eos % (Auto) 0.0 % Baso % (Auto) 0.8 % Neut # (Auto) 1.20 L (1.40-6.50) K/uL Lymph # (Auto) 1.93 (1.20-3.40) K/uL [place] # (Auto) 0.47 (0.11-0.59) K/uL Eos # (Auto) 0.00 (0.00-0.50) K/uL Baso # (Auto) 0.03 (0.00-0.20) K/uL Immature Gran # (Auto) 0.02 (0.01-0.20) K/uL Sodium 140 (136-145) mmol/L Potassium 3.7 (3.5-5.1) mmol/L Chloride 107 (98-107) mmol/L Carbon Dioxide 26 (21-32) mmol/L Anion Gap 7 (3-11) BUN 10 (6-23) mg/dl Creatinine 0.42 L (0.6-1.2) mg/dl Est Cr Clr Drug Dosing 94.4 ml/min Est GFR ( Amer) 117.9 ml/min Est GFR (Non-Af Amer) 101.7 ml/min BUN/Creatinine Ratio 23.8 H (10-20) Glucose 106 H (70-99(Fasting)) mg/dl POC Glucose 101 H 111 H (70-99) mg/dl Calcium 8.9 (8.6-10.3) mg/dl Phosphorus 4.0 (2.5-4.9) mg/dl Magnesium 1.7 (1.7-2.4) mg/dl Total Bilirubin 0.4 (0.2-1.0) mg/dl AST 15 (13-39) U/L ALT 15 (7-52) U/L Alkaline Phosphatase 66 (34-104) U/L Total Protein 5.2 L (6.0-8.3) gm/dl Albumin 3.4 (3.4-5.0) gm/dl Globulin 1.8 L (2.5-4.0) gm/dl Albumin/Globulin Ratio 1.9 (0.9-2) 09/11/23 09/11/23 Range/Units 16:30 11:25 WBC (4.8-10.8) K/ul RBC (4.20-5.40) M/uL Hgb (12.0-16.0) g/dl Hct (37.0-47.0) % MCV (80.0-100.0) fL MCH (25.0-34.0) pg MCHC (32.0-36.0) g/dL RDW Std Deviation (36.4-46.3) fL RDW Coeff of Cyn (11.5-14.5) % Plt Count (130-400) K/uL MPV (9.4-12.4) fL Immature Gran % (Auto) % Neut % (Auto) % Lymph % (Auto) % [place] % (Auto) % Eos % (Auto) % Baso % (Auto) % Neut # (Auto) (1.40-6.50) K/uL Lymph # (Auto) (1.20-3.40) K/uL [place] # (Auto) (0.11-0.59) K/uL Eos # (Auto) (0.00-0.50) K/uL Baso # (Auto) (0.00-0.20) K/uL Immature Gran # (Auto) (0.01-0.20) K/uL Sodium (136-145) mmol/L Potassium (3.5-5.1) mmol/L Chloride (98-107) mmol/L Carbon Dioxide (21-32) mmol/L Anion Gap (3-11) BUN (6-23) mg/dl Creatinine (0.6-1.2) mg/dl Est Cr Clr Drug Dosing ml/min Est GFR ( Amer) ml/min Est GFR (Non-Af Amer) ml/min BUN/Creatinine Ratio (10-20) Glucose (70-99(Fasting)) mg/dl POC Glucose 122 H 122 H (70-99) mg/dl Calcium (8.6-10.3) mg/dl Phosphorus (2.5-4.9) mg/dl Magnesium (1.7-2.4) mg/dl Total Bilirubin (0.2-1.0) mg/dl AST (13-39) U/L ALT (7-52) U/L Alkaline Phosphatase (34-104) U/L Total Protein (6.0-8.3) gm/dl Albumin (3.4-5.0) gm/dl Globulin (2.5-4.0) gm/dl Albumin/Globulin Ratio (0.9-2) Medications Administered Current Inpatient Medications Acetaminophen (Acetaminophen 325 Mg Tab) 650 mg PO Q4H PRN PRN Reason: Pain or Fever Stop: 09/29/23 21:47 Last Admin: 09/12/23 12:01 Dose: 650 mg Amlodipine Besylate (Amlodipine Besylate 5 Mg Tab) 5 mg PO DAILY [facility] Stop: 09/22/23 08:59 Last Admin: 09/12/23 08:19 Dose: 5 mg Artificial Tears (Artificial Tears) 1 drops OPB QID PRN PRN Reason: Dryness Stop: 10/05/23 14:52 Atorvastatin Calcium (Atorvastatin 20 Mg Tab) 20 mg PO QAM JAMEL Stop: 10/09/23 08:59 Last Admin: 09/12/23 08:18 Dose: 20 mg Clozapine (Clozapine 100 Mg Tab) 100 mg PO HS JAMEL; Protocol Stop: 10/07/23 20:59 Last Admin: 09/11/23 19:50 Dose: 100 mg Dextrose (Dextrose 50% 50 Ml Syringe) 25 - 50 ml IV UD PRN; Protocol PRN Reason: Hypoglycemia Protocol Stop: 10/08/23 12:31 Glucagon (Glucagon For Inj 1 Mg Vial) 1 mg SQ UD PRN; Protocol PRN Reason: Hypoglycemia Protocol Stop: 10/08/23 12:31 Glucose (Glucose 10 Tab/Tube) 4 - 8 tab PO UD PRN; Protocol PRN Reason: Hypoglycemia Treatment Stop: 10/08/23 12:31 Glucose (Glucose 40% Gel 15 Gm Tube) 15 - 30 gm PO UD PRN; Protocol PRN Reason: Hypoglycemia Protocol Stop: 10/08/23 12:31 Glycerin (Glycerin Adult 12 Supp/Box Supp) [address] DAILY JAMEL Stop: 10/11/23 08:59 Last Admin: 09/12/23 08:16 Dose: 1 supp Insulin Aspart (Insulin Aspart Per Unit Charge) 0 units SC ACHS JAMEL Stop: 10/08/23 16:29 Last Admin: 09/12/23 17:38 Dose: 1 units Lactobacillus Acidophilus (Advanced Probiotic 625 Mg Capsule) 1,250 mg PO DAILY [facility] Stop: 10/05/23 16:44 Last Admin: 09/12/23 08:19 Dose: 1,250 mg Lactulose (Lactulose 200gm/700ml Wtr Enema) [address] Q8H JAMEL Stop: 10/11/23 18:59 Last Admin: 09/12/23 11:27 Dose: Not Given Levothyroxine Sodium (Levothyroxine Sodium 50 Mcg Tablet) 50 mcg PO DAILYBB [facility] Stop: 10/02/23 06:29 Last Admin: 09/12/23 05:51 Dose: 50 mcg Lisinopril (Lisinopril 20 Mg Tab) 20 mg PO QAM [facility] Stop: 09/19/23 15:59 Last Admin: 09/12/23 08:18 Dose: 20 mg Melatonin (Melatonin 3 Mg Tab) 3 mg PO HS PRN PRN Reason: Sleep Stop: 10/07/23 00:05 Last Admin: 09/09/23 21:45 Dose: 3 mg Methenamine Hippurate (Methenamine Hippurate 1 Gm Tab) 1 gm PO BID [facility] Stop: 09/18/23 12:44 Last Admin: 09/12/23 08:15 Dose: 1 gm Metoprolol Succinate (Metoprolol Succ 25mg Ext Rel Tab) 25 mg PO QAM [facility] Stop: 10/10/23 08:59 Last Admin: 09/12/23 08:15 Dose: 25 mg Miscellaneous (Carbohydrates For Hypoglycemia ) 15 - 30 gm PO UD PRN PRN Reason: Hypoglycemia Protocol Stop: 10/08/23 12:31 Ondansetron HCl (Ondansetron Inj 2 Mg/Ml 2 Ml Vial) 4 mg IV Q6H PRN PRN Reason: Nausea And Vomiting Stop: 10/09/23 10:08 Last Admin: 09/09/23 18:18 Dose: 4 mg Pantoprazole Sodium (Pantoprazole 40 Mg Tab) 40 mg PO QAM [facility] Stop: 10/07/23 08:59 Last Admin: 09/12/23 08:19 Dose: 40 mg Polyethylene Glycol (Polyethylene (Miralax) 17 Gm Pack) 17 gm PO DAILY [facility] Stop: 10/06/23 08:59 Last Admin: 09/12/23 08:24 Dose: 17 gm Senna/Docusate Sodium (Docusate Sodium/Senna 50/8.6mg Tab) 1 tab PO BID [facility] Stop: 09/24/23 08:59 Last Admin: 09/12/23 08:24 Dose: 1 tab (4) Aspiration pneumonia Laterality: bilateral
[2023-09-13 06:43] LABS: Hematocrit (blood only) 31.6 % (37.0-47.0); Hemoglobin 10.1 g/dl (12.0-16.0); Mean Corpuscular Hemoglobin 28.1 pg (25.0-34.0); Mean Corpuscular Volume 87.8 fL (80.0-100.0); Platelet Count 229 K/uL (130-400); RDW Coefficient of Variation 15.3 % (11.5-14.5); White Blood Count 3.57 K/ul (4.8-10.8)
[2023-09-13 07:12] LABS: Albumin Globulin Ratio 1.8 (0.9-2); Albumin Level 3.5 gm/dl (3.4-5.0); BUN Creatinine Ratio 20.8 (10-20); Bilirubin,Total 0.4 mg/dl (0.2-1.0); Creatinine Clr Calc Pharmacy 82.6 ml/min; Est GFR (African American) 112.8 ml/min; Est GFR (Non-African American) 97.3 ml/min; Magnesium 1.7 mg/dl (1.7-2.4); Phosphorus 4.3 mg/dl (2.5-4.9); Potassium 3.7 mmol/L (3.5-5.1); Total Protein 5.5 gm/dl (6.0-8.3)
[2023-09-13 07:31] LABS: Basophils # (auto) 0.03 K/uL (0.00-0.20); Basophils % (auto) 0.8 %; Immature Granulocytes # (auto) 0.01 K/uL (0.01-0.20); Immature Granulocytes % (auto) 0.3 %; Lymphocytes # (auto) 1.96 K/uL (1.20-3.40); Lymphocytes % (auto) 54.9 %; Monocytes # (auto) 0.39 K/uL (0.11-0.59); Monocytes % (auto) 10.9 %; Neutrophils # (auto) 1.18 K/uL (1.40-6.50); Neutrophils % (auto) 33.1 %
--- NOTE | 2023-09-13 08:37 | Hospitalist Progress Note ---
Date of Service September 13, 2023 Assessment & Plan (1) Stercoral colitis: (2) Constipation, chronic: (3) Full code status: (4) Aspiration pneumonia: (5) On mechanically assisted ventilation: (6) Acute respiratory failure: Plan Pt is a 72yoF with PMHx significant for HTN, HLD, DMII, hypothyroidism, Hx of brain tumor s/p partial resection, schizophrenia, prior migraine, chronic anemia, recurrent UTIs, urinary incontinence and urinary bladder diverticulum presented after being found down and minimally responsive at home. Patient was admitted to the ICU for management and evaluation of septic shock on admission. Was downgraded and re-intubated in the ICU from 08/11- 08/15. Had bronchoscopy on 08/11 without significant findings but did grow ryan. Acute respiratory failure due to pneumonia is currently resolved. She was also treated for possible ryan esophagitis with fluconazole and completed treatment while hospitalized. During her course, pt also had a UTI which was treated with IV Ertapenem from 08/28- 09/06. She completed UTI treatment while hospitalized. Her course was also further complicated by cognitive impairment and acute delirium in the setting of her known schizophrenia. Her clozaril which was held during her cognitive impairment was slowly titrated back up with the assistance of psychiatry. Neurology was also consulted for input. Previously recommended an MRI brain which later they noted was not needed. Also advised followup with [facility] after discharge. Advising and deferring to Psychiatry to keep dose of clozaril as low as possible while treating her schizophrenia. Pt is currently alert and oriented x2, interactive, on clozaril 100mg qhs at this time. During her cognitive impairment, pt was not eating and was started on tube feeds (08/19-) for severe malnutrition and failure to thrive in an adult. She is currently eating by mouth once more, with improved appetite. On admission, she was also noted to have severe constipation with stercoral colitis, likely in the setting of her chronic clozaril use. She was treated with multiple enemas, laxatives and stool softeners during her course. She needs to have ongoing bowel regimen and monitor for constipation. Currently on Senekot S 1 tab BID and daily miralax 17g. Hypothyroidism-Levothyroxine was continued. Hypertension-Held home antihypertensives while patient was on vasopressors. Currently back on home medications metoprolol, amlodipine, lisinopril. Blood pressure currently well controlled. Hyperlipidemia- her statin was held while on daptomycin during her early course. Resumed. DMII- her home metformin was held and she was started on insulin sliding scale once more when taking po again. Recurrent UTI-Initially home methenamine was held on admission, when unable to take po and during active treatment of her UTI. It is was resumed once her UTI treatment was completed. Recurrent migraines-home riboflavin was held, can continue after discharge. Chronic normocytic anemia: Hgb baseline ~9-10, stable. Anemia workup noting low iron level s/p IV Venofer on 09/08. Bradycardia- metoprolol dose decreased to 25mg Pt was evaluated by physical and occupational therapy and the current recommendation is acute rehab after hospitalization. Her course was complicated by there being no legal POA in the setting of cognitive impairment. She was previously with scrible with a caregiver, Sidney assisting and listed in the chart. An application for guardianship has since been submitted and per Case Management's notation on 09/06 a discussion was had with Sidney and an auth was submitted to [facility] for placement. Pt is currently stable for discharge to acute rehab. CODE STATUS: FULL (pls see detailed discussion regarding her code status in previous documentation) Diet: DMII, soft bite-sized DVT prophylaxis: Lovenox SQ Dispo: Acute rehab, auth submitted to [facility], pt downgraded to med/surg in the interim Admission and Anticipated Discharge Date Admission Date: August 06, 2023 Subjective Pt seen in follow up of hypoxic resp. failure, was initially intubated on admission and then required re-intubation during her hosp. stay Initially treated for severe constipation, poss. perf. - this was ruled out, pt seen by gen. surgery and having BMs - however needing bowel regimen Then managed in ICU for pulm. edema, poss. pna Pt extubated Patient was not following commands, was nonverbal. NGT tube placed on (08/19/23) to provide nutrition. -> She started to eat. NG tube removed on (). Psychiatry following closely - started clozapine - currently on 100 HS Also treated for ESBL E. coli (finished abx course) Patient is now awake, interactive, and answers questions appropriately. She is feeling well, has occasional headaches which is not unusual for her, otherwise denies any symptoms. awaiting discharge. CM involved. Review of Systems Review of Systems: All systems reviewed & are unremarkable except as noted in Subjective Physical Exam Physical Exam: General: sitting up in bed in NAD, on RA, watching TV Neuro/ Psych: awake, alert, + eye contact, speech fluent, no facial asymmetry, able to answer questions appropriately - able to hold conversation w/o any issues, moves extremities HEENT: NC/AT CV: RRR Resp: no increased effort of breathing , ctab Abdomen: soft Extremities: moves extremities Results & Data Results & Data Vital Signs (Past 12 Hours) Vital Signs Temp Pulse Resp BP Pulse Ox O2 Del Method 09/13/23 08:03 36.5 C 66 18 142/69 H 100 Room Air Laboratory Results 09/13/23 09/13/23 09/12/23 Range/Units 07:41 06:02 20:18 WBC 3.57 L (4.8-10.8) K/ul RBC 3.60 L (4.20-5.40) M/uL Hgb 10.1 L (12.0-16.0) g/dl Hct 31.6 L (37.0-47.0) % MCV 87.8 (80.0-100.0) fL MCH 28.1 (25.0-34.0) pg MCHC 32.0 (32.0-36.0) g/dL RDW Std Deviation 49.0 H (36.4-46.3) fL RDW Coeff of Cyn 15.3 H (11.5-14.5) % Plt Count 229 (130-400) K/uL MPV 10.0 (9.4-12.4) fL Immature Gran % (Auto) 0.3 % Neut % (Auto) 33.1 % Lymph % (Auto) 54.9 % [place] % (Auto) 10.9 % Eos % (Auto) 0.0 % Baso % (Auto) 0.8 % Neut # (Auto) 1.18 L (1.40-6.50) K/uL Lymph # (Auto) 1.96 (1.20-3.40) K/uL [place] # (Auto) 0.39 (0.11-0.59) K/uL Eos # (Auto) 0.00 (0.00-0.50) K/uL Baso # (Auto) 0.03 (0.00-0.20) K/uL Immature Gran # (Auto) 0.01 (0.01-0.20) K/uL Sodium 141 (136-145) mmol/L Potassium 3.7 (3.5-5.1) mmol/L Chloride 107 (98-107) mmol/L Carbon Dioxide 28 (21-32) mmol/L Anion Gap 6 (3-11) BUN 10 (6-23) mg/dl Creatinine 0.48 L (0.6-1.2) mg/dl Est Cr Clr Drug Dosing 82.6 ml/min Est GFR ( Amer) 112.8 ml/min Est GFR (Non-Af Amer) 97.3 ml/min BUN/Creatinine Ratio 20.8 H (10-20) Glucose 101 H (70-99(Fasting)) mg/dl POC Glucose 100 H 103 H (70-99) mg/dl Calcium 9.0 (8.6-10.3) mg/dl Phosphorus 4.3 (2.5-4.9) mg/dl Magnesium 1.7 (1.7-2.4) mg/dl Total Bilirubin 0.4 (0.2-1.0) mg/dl AST 19 (13-39) U/L ALT 18 (7-52) U/L Alkaline Phosphatase 69 (34-104) U/L Total Protein 5.5 L (6.0-8.3) gm/dl Albumin 3.5 (3.4-5.0) gm/dl Globulin 2.0 L (2.5-4.0) gm/dl Albumin/Globulin Ratio 1.8 (0.9-2) 09/12/23 09/12/23 Range/Units 16:21 11:18 WBC (4.8-10.8) K/ul RBC (4.20-5.40) M/uL Hgb (12.0-16.0) g/dl Hct (37.0-47.0) % MCV (80.0-100.0) fL MCH (25.0-34.0) pg MCHC (32.0-36.0) g/dL RDW Std Deviation (36.4-46.3) fL RDW Coeff of Cyn (11.5-14.5) % Plt Count (130-400) K/uL MPV (9.4-12.4) fL Immature Gran % (Auto) % Neut % (Auto) % Lymph % (Auto) % [place] % (Auto) % Eos % (Auto) % Baso % (Auto) % Neut # (Auto) (1.40-6.50) K/uL Lymph # (Auto) (1.20-3.40) K/uL [place] # (Auto) (0.11-0.59) K/uL Eos # (Auto) (0.00-0.50) K/uL Baso # (Auto) (0.00-0.20) K/uL Immature Gran # (Auto) (0.01-0.20) K/uL Sodium (136-145) mmol/L Potassium (3.5-5.1) mmol/L Chloride (98-107) mmol/L Carbon Dioxide (21-32) mmol/L Anion Gap (3-11) BUN (6-23) mg/dl Creatinine (0.6-1.2) mg/dl Est Cr Clr Drug Dosing ml/min Est GFR ( Amer) ml/min Est GFR (Non-Af Amer) ml/min BUN/Creatinine Ratio (10-20) Glucose (70-99(Fasting)) mg/dl POC Glucose 112 H 107 H (70-99) mg/dl Calcium (8.6-10.3) mg/dl Phosphorus (2.5-4.9) mg/dl Magnesium (1.7-2.4) mg/dl Total Bilirubin (0.2-1.0) mg/dl AST (13-39) U/L ALT (7-52) U/L Alkaline Phosphatase (34-104) U/L Total Protein (6.0-8.3) gm/dl Albumin (3.4-5.0) gm/dl Globulin (2.5-4.0) gm/dl Albumin/Globulin Ratio (0.9-2) Medications Administered Current Inpatient Medications Acetaminophen (Acetaminophen 325 Mg Tab) 650 mg PO Q4H PRN PRN Reason: Pain or Fever Stop: 09/29/23 21:47 Last Admin: 09/12/23 20:54 Dose: 650 mg Amlodipine Besylate (Amlodipine Besylate 5 Mg Tab) 5 mg PO DAILY [facility] Stop: 09/22/23 08:59 Last Admin: 09/12/23 08:19 Dose: 5 mg Artificial Tears (Artificial Tears) 1 drops OPB QID PRN PRN Reason: Dryness Stop: 10/05/23 14:52 Atorvastatin Calcium (Atorvastatin 20 Mg Tab) 20 mg PO QAM JAMEL Stop: 10/09/23 08:59 Last Admin: 09/12/23 08:18 Dose: 20 mg Clozapine (Clozapine 100 Mg Tab) 100 mg PO HS JAMEL; Protocol Stop: 10/07/23 20:59 Last Admin: 09/12/23 20:48 Dose: 100 mg Dextrose (Dextrose 50% 50 Ml Syringe) 25 - 50 ml IV UD PRN; Protocol PRN Reason: Hypoglycemia Protocol Stop: 10/08/23 12:31 Glucagon (Glucagon For Inj 1 Mg Vial) 1 mg SQ UD PRN; Protocol PRN Reason: Hypoglycemia Protocol Stop: 10/08/23 12:31 Glucose (Glucose 10 Tab/Tube) 4 - 8 tab PO UD PRN; Protocol PRN Reason: Hypoglycemia Treatment Stop: 10/08/23 12:31 Glucose (Glucose 40% Gel 15 Gm Tube) 15 - 30 gm PO UD PRN; Protocol PRN Reason: Hypoglycemia Protocol Stop: 10/08/23 12:31 Glycerin (Glycerin Adult 12 Supp/Box Supp) 1 supp NM DAILY [facility] Stop: 10/11/23 08:59 Last Admin: 09/12/23 08:16 Dose: 1 supp Insulin Aspart (Insulin Aspart Per Unit Charge) 0 units SC ACHS [facility] Stop: 10/08/23 16:29 Last Admin: 09/12/23 20:48 Dose: Not Given Lactobacillus Acidophilus (Advanced Probiotic 625 Mg Capsule) 1,250 mg PO DAILY [facility] Stop: 10/05/23 16:44 Last Admin: 09/12/23 08:19 Dose: 1,250 mg Lactulose (Lactulose 200gm/700ml Wtr Enema) 200 gm NM Q8H [facility] Stop: 10/11/23 18:59 Last Admin: 09/13/23 03:01 Dose: Not Given Levothyroxine Sodium (Levothyroxine Sodium 50 Mcg Tablet) 50 mcg PO DAILYBB [facility] Stop: 10/02/23 06:29 Last Admin: 09/13/23 05:32 Dose: 50 mcg Lisinopril (Lisinopril 20 Mg Tab) 20 mg PO QAM [facility] Stop: 09/19/23 15:59 Last Admin: 09/12/23 08:18 Dose: 20 mg Melatonin (Melatonin 3 Mg Tab) 3 mg PO HS PRN PRN Reason: Sleep Stop: 10/07/23 00:05 Last Admin: 09/12/23 20:48 Dose: 3 mg Methenamine Hippurate (Methenamine Hippurate 1 Gm Tab) 1 gm PO BID [facility] Stop: 09/18/23 12:44 Last Admin: 09/12/23 20:48 Dose: 1 gm Metoprolol Succinate (Metoprolol Succ 25mg Ext Rel Tab) 25 mg PO QAM [facility] Stop: 10/10/23 08:59 Last Admin: 09/12/23 08:15 Dose: 25 mg Miscellaneous (Carbohydrates For Hypoglycemia ) 15 - 30 gm PO UD PRN PRN Reason: Hypoglycemia Protocol Stop: 10/08/23 12:31 Ondansetron HCl (Ondansetron Inj 2 Mg/Ml 2 Ml Vial) 4 mg IV Q6H PRN PRN Reason: Nausea And Vomiting Stop: 10/09/23 10:08 Last Admin: 09/09/23 18:18 Dose: 4 mg Pantoprazole Sodium ([facility]oprazole 40 Mg Tab) [facility]: 10/07/23 08:59 Last Admin: 09/12/23 08:19 Dose: 40 mg Polyethylene Glycol (Polyethylene (Miralax) 17 Gm Pack) 17 gm PO DAILY [facility] Stop: 10/06/23 08:59 Last Admin: 09/12/23 08:24 Dose: 17 gm Senna/Docusate Sodium (Docusate Sodium/Senna 50/8.6mg Tab) 1 tab PO BID [facility] Stop: 09/24/23 08:59 Last Admin: 09/12/23 20:48 Dose: 1 tab (4) Aspiration pneumonia Laterality: bilateral
[2023-09-13] MEDS: POLYETHYLENE (MIRALAX) 17 GM PACK PO ONE (15:00)
--- NOTE | 2023-09-13 16:19 | Psychiatric Consultation ---
Date of Consultation September 13, 2023 Impression / Recommendations Impression As per initial consult: 72 yo female with remote hx of schizophrenia maintained on same dose of clozaril for what appears to be 20+ years. Unclear last psychotic symptoms and complicated by onset of dementia with intermittent AMS. Review of chart reveals gradual increase in falls, dizziness, and severe constipation. Unclear how much due to medical illness vs. possible clozaril toxicity given no change in dose with age, etc. Unclear if siallorhea at baseline and if that could contribute to aspiration risk. Given risks of orthostasis, alter seizure thresshold, paralytic ileus, PE, etc in patients on clozaril I feel the risks outweigh the immediate benefits of retitrating while still intubated. Continuing to present nonverbal---differential includes aphasia due to neurologic event, atypical catatonia, and/or severe abulia due to negative symptom of schizophrenia. Ativan challenge was not helpful. This may mean that her issue is less likely to be catatonia. We will slowly titrate the clozapine up, but we will not approach the high dose she was on before admission. It is extremely unlikely that this low dose of clozapine would be causing neuroleptic malignant syndrome (NMS) so it is very unlikely the temperature of 38.0 C is related in any way to the antipsychotic. Overall, I spent a total of 24 minutes with this case, including review of chart, coordination with nursing, coordination of care with hospitalist service, and documentation. 08/28/23: Today is the second day that we are seeing some sedations. Otherwise, she seems about the same as she has every day that I have seen her this week. 08/29/23: Obviously, we are seeing a big improvement with her now being able to speak some. I suppose it is possible that this was a catatonia throughout the last week. It is also nice to see the brighter affect. 08/30/23: Patient seems to be slowly improving and is interacting more with her environment. I am worried about some sedation from the clozapine. 08/31/23: It seems like we are seeing more and more improvement daily. She does not seem so sedated and is much more interactive. She is now able to eat food. 09/13/23 Interviewed the patient to assess capacity to choose a decision maker. Her memory is poor, she made a suggestion of a person but later forgot that she had suggested that person and she is unable to reason appropriately. She perseverates on the fact that her sister is . She will likely require a guardian be appointed. Psych History Chief Complaint "[]". History of Present Illness Patient has been seen in ED various occasions for ambulatory dysfunction, dizziness, weakness. Admit 2/ with presumed sepsis and/or bowel perforation. patient has since required intubation. Her clozaril 50 mg po qam and 300 mg po qhs has been held for the week. Liaison attempting to reach 2nd CM as first is new to her case and no apparent surrogate decision maker to provide additional collateral. Contacted [facility] as patient unable to sign release. Shivani Umaña's nurse returned call confirming dose as well as rx for Cymbalta 60 mg. Patient is seen every 3 months, last seen 05/15 and has been stable without depression or delcid for at least a year. monthly bloodwork for Clozaril REMS but no clozaril levels. Nurse unfamiliar with baseline, patient reportedly dose get AMS with UTIs. looking through [facility] records has been on same dose of clozaril for some time, in looking into archive there is an H&P from Dr. Agudelo for a psych admit in 2002 during which same dose of clozaril is listed. 72 year old female with pas psychiatric history of schizophrenia on Clozaril who was admitted with presumed sepsis. Patient has been medically stabilized and is now at the point of being discharged to a rehab facility. Psych was consulted to ascertain if she had the capacity to choose her own decision maker. At the time of the interview, the patient was pleasant and cooperative but showed multiple signs of poor memory and was oriented to self and place only. She kept stating that her sister was and she was her only family. She appeared not to remember that she had previously talked about her sister. I asked her who she wanted to make decisions for her and she suggested that her sander and buffer might be the one to do so. However, she couldn't tell me if her sander and buffer knew her wishes. Later on in the conversation, I asked her again and she stated she didn't know who could make decisions for her because her sister was with no mention of the sander and buffer. The patient does not have the capacity to make the decision for someone to be her decision maker as she is unable to be consistent in the course of one conversation. Allergies Allergy/AdvReac Type Severity Reaction Status Date / Time Penicillins Allergy Intermediate Hives Verified 08/06/23 02:02 pollen extracts Allergy Intermediate seasonal Verified 08/06/23 02:02 allergy Cephalosporins AdvReac Intermediate Hallucinations/GI Verified 08/06/23 02:02 UPSET/ CONFUSION cyclobenzaprine AdvReac Intermediate neuro Verified 08/06/23 02:02 [From Flexeril] complications rizatriptan [From Maxalt] AdvReac Intermediate VERTIGO Verified 08/06/23 02:02 Home Medications Medication Instructions Recorded Confirmed Type duloxetine 60 mg capsule,delayed 60 mg PO QAM 04/14/18 08/06/23 History release (Cymbalta) levothyroxine 50 mcg tablet 50 mcg PO DAILYBB 04/14/18 08/06/23 History (Synthroid) loratadine 10 mg tablet (Claritin) 10 mg PO HS PRN Allergy Symptoms 03/25/19 08/06/23 History magnesium oxide 400 mg PO QAM 03/25/19 08/06/23 History atorvastatin 20 mg tablet 20 mg PO HS 11/22/19 08/06/23 History sumatriptan succinate 100 mg tablet 100 mg PO DAILY PRN Headache 11/22/19 08/06/23 History metformin 500 mg tablet 500 mg PO QAM 02/24/21 08/06/23 History riboflavin (vitamin B2) 400 mg 400 mg PO QAM 02/24/21 08/06/23 History tablet fluticasone propionate 50 2 spray intranasal DAILY 07/13/21 08/06/23 History mcg/actuation nasal spray,suspension (Flonase Allergy Relief) aspirin 81 mg chewable tablet 81 mg PO DAILY 05/12/22 08/06/23 History (Aspirin Childrens) docusate sodium 100 mg capsule 100 mg PO BID 07/13/22 08/06/23 History (Colace) gabapentin 100 mg capsule See Rx Instructions .Route .COMPLEX 09/01/22 08/06/23 History cholecalciferol (vitamin D3) 1,250 1,250 mcg PO WK 12/16/22 08/06/23 History mcg (50,000 unit) capsule clozapine 100 mg tablet 300 mg PO HS 12/16/22 08/06/23 History clozapine 25 mg tablet 50 mg PO QAM 12/16/22 08/06/23 History omeprazole 40 mg capsule,delayed 40 mg PO HS 12/16/22 08/06/23 History release lisinopril 20 mg tablet 20 mg PO QAM 01/15/23 08/06/23 History metoprolol succinate 50 mg 50 mg PO QAM 03/08/23 08/06/23 History tablet,extended release 24 hr acetaminophen 500 mg/15 mL oral 100 mg PO Q4H PRN PAIN/FEVER 08/06/23 08/06/23 History liquid amlodipine 5 mg tablet 5 mg PO DAILY 08/06/23 08/06/23 History cyanocobalamin (vitamin B-12) 1,000 mcg PO DAILY 08/06/23 08/06/23 History 1,000 mcg tablet (Vitamin B-12) diclofenac sodium 1 % topical gel 2 g topical TID PRN Pain 08/06/23 08/06/23 History diclofenac sodium 50 mg 50 mg PO BID 08/06/23 08/06/23 History tablet,delayed release iron,carbonyl 65 mg-vitamin C 125 1 tab PO DAILY 08/06/23 08/06/23 History mg tablet,delayed release (Vitron-C) methenamine hippurate 1 gram tablet 1 g PO AMHS 08/06/23 08/06/23 History psyllium 1 tsp PO TID 08/06/23 08/06/23 History Patient History Medical History Schizophrenia Volume overload Weak cough Severe sepsis Aspiration pneumonia Weakness Constipation Bacteremia Acute UTI (urinary tract infection) Generalized weakness AMS (altered mental status) Unresponsive Obtunded COVID-19 Hyponatremia Nausea Dehydration Dizziness Neuropathy Headache Vertigo GERD (gastroesophageal reflux disease) Well controlled with medication Hypothyroidism Anxiety Migraine Hypertension Neuropathy DM2 (diabetes mellitus, type 2) HLD (hyperlipidemia) Somatization disorder Surgical History S/P foot surgery, right X2 S/P foot surgery, left X2 History of colonoscopy History of tooth extraction WISDOM TEETH History of tonsillectomy H/O bilateral cataract extraction History of craniotomy 1969, [place] D/T HEADACHE---FOLLOWS W DR. MICHAEL History of cataract surgery H/O cystoscopy H/O foot surgery H/O brain surgery "abt 1970 R parietal exploration for benign lesion" Family History Grandmother Family history of diabetes mellitus PATERNAL Family/Other Family history of diabetes mellitus UNCLE Father Parkinson disease Mother CHF (congestive heart failure) Social History Smoking Status: Never smoker Second Hand Exposure: Yes (FATHER SMOKED); Do You Dip or Chew Tobacco: No; Hx Alcohol Use: No Hx Substance Use: No Preferred Language: [place] Communication Ability: Unable Defense Travel Administrator Required: No Beliefs That Will Affect Care: Zoroastrian Zoroastrian Beliefs: episcopalian marital status: Single Current Living Situation: Personal Care Facility Current Living Situation Comment: caregivers daily, not on weekends How many Children do You have: 0 Feels Safe at Home: Yes Assistive Devices: Walker Physical Exam Psychiatric: Orientation: alert, oriented to person, oriented to place and cooperative Apperance: appropriately dressed and appropriately groomed Eye Contact: good eye contact Motor Behavior: no abnormal motor movements Speech: normal rate/rhythm/volume of speech Affect: euthymic affect Thought Process: + circumstantial thought process, + looseness of associations and + concrete thought process Hallucinations: no auditory hallucinations and no visual hallucinations Cognition: attention grossly intact and language grossly intact; + recent memory not intact and + remote memory not intact Estimated Intelligence: average estimated intelligence Insight: + impaired insight Judgment: + severely impaired judgement Vital Signs (Past 24 Hours): Last Vital Signs Temp 37.1 C 09/13/23 14:59 Pulse 61 09/13/23 14:59 Resp 18 09/13/23 08:03 BP 133/74 09/13/23 14:59 Pulse Ox 100 09/13/23 14:59 O2 Del Method Room Air 09/13/23 14:59 O2 Flow Rate 35 08/13/23 20:00 FiO2 21 08/17/23 04:17 Constitutional: WD/WN, vitals as above average body habitus, + thin, + frail appearing and + mechanically ventilated; not in distress and not diaphoretic Eyes: PERRL and EOM intact bilaterally; no nystagmus Neck: trachea midline Respiratory: normal respiratory effort; no respiratory distress, no labored breathing and does not use accessory muscles Auscultation: + diminished lung sounds Cardiovascular: RRR, no murmur, no edema Rate/Rhythm: regular rate and regular rhythm; not tachycardic Vessels: dorsalis pedis pulses present and radial pulses present Gastrointestinal (Abdomen): normal bowel sounds, soft, nontender, no hepatosplenomegaly Inspection/Auscultation: + abdomen distended Percussion/Palpation: abdomen soft Skin: no rashes, warm and dry no rashes Lymphatic: no cervical or axillary lymphadenopathy Results & Data (PSY) Medications Administered Acetaminophen (Acetaminophen 325 Mg Tab) 650 mg PO Q4H PRN PRN Reason: Pain or Fever Stop: 09/29/23 21:47 Last Admin: 09/13/23 15:00 Dose: 650 mg Documented By: Admin: 09/12/23 20:54 Dose: 650 mg Documented By: MLAna Admin: 09/12/23 12:01 Dose: 650 mg Documented By: Admin: 09/11/23 18:13 Dose: 650 mg Documented By: AABettie Admin: 09/11/23 12:13 Dose: 650 mg Documented By: AABettie Admin: 09/10/23 20:48 Dose: 650 mg Documented By: Admin: 09/10/23 12:18 Dose: 650 mg Documented By: Admin: 09/10/23 02:16 Dose: 650 mg Documented By: Admin: 09/08/23 13:06 Dose: 650 mg Documented By: Admin: 09/08/23 03:32 Dose: 650 mg Documented By: Admin: 09/07/23 19:45 Dose: 650 mg Documented By: Admin: 09/07/23 09:34 Dose: 650 mg Documented By: Admin: 09/07/23 00:05 Dose: 650 mg Documented By: Admin: 09/06/23 19:42 Dose: 650 mg Documented By: Admin: 09/06/23 12:29 Dose: 650 mg Documented By: Admin: 09/05/23 23:51 Dose: 650 mg Documented By: Admin: 09/05/23 15:18 Dose: 650 mg Documented By: Admin: 09/05/23 08:34 Dose: 650 mg Documented By: Admin: 09/05/23 00:42 Dose: 650 mg Documented By: Admin: 09/04/23 19:45 Dose: 650 mg Documented By: Admin: 09/04/23 08:42 Dose: 650 mg Documented By: Admin: 09/03/23 14:01 Dose: 650 mg Documented By: Admin: 09/03/23 03:26 Dose: 650 mg Documented By: Admin: 09/02/23 13:03 Dose: 650 mg Documented By: Admin: 09/01/23 19:26 Dose: 650 mg Documented By: Admin: 09/01/23 08:37 Dose: 650 mg Documented By: Admin: 08/31/23 07:46 Dose: 650 mg Documented By: Admin: 08/30/23 22:07 Dose: 650 mg Documented By: MIGUEL(2) Amlodipine Besylate (Amlodipine Besylate 5 Mg Tab) 5 mg PO DAILY JAMEL Stop: 09/22/23 08:59 Last Admin: 09/13/23 08:59 Dose: 5 mg Documented By: Admin: 09/12/23 08:19 Dose: 5 mg Documented By: AABettie Admin: 09/11/23 08:46 Dose: 5 mg Documented By: AABettie Admin: 09/10/23 08:50 Dose: 5 mg Documented By: Admin: 09/09/23 08:56 Dose: 5 mg Documented By: Admin: 09/08/23 08:33 Dose: 5 mg Documented By: Admin: 09/07/23 09:30 Dose: 5 mg Documented By: Admin: 09/06/23 09:01 Dose: 5 mg Documented By: Admin: 09/05/23 08:35 Dose: 5 mg Documented By: Admin: 09/04/23 08:37 Dose: 5 mg Documented By: Admin: 09/03/23 09:59 Dose: 5 mg Documented By: Admin: 09/02/23 08:42 Dose: 5 mg Documented By: Admin: 09/01/23 08:27 Dose: 5 mg Documented By: Admin: 08/31/23 08:00 Dose: 5 mg Documented By: Admin: 08/30/23 09:29 Dose: 5 mg Documented By: Admin: 08/29/23 09:27 Dose: 5 mg Documented By: Admin: 08/28/23 09:23 Dose: 5 mg Documented By: Admin: 08/27/23 09:48 Dose: 5 mg Documented By: Admin: 08/26/23 07:39 Dose: 5 mg Documented By: Admin: 08/25/23 09:21 Dose: 5 mg Documented By: Admin: 08/24/23 08:17 Dose: 5 mg Documented By: Admin: 08/23/23 08:05 Dose: 5 mg Documented By: JAGDEEP Atorvastatin Calcium (Atorvastatin 20 Mg Tab) 20 mg PO QAM JAMEL Stop: 10/09/23 08:59 Last Admin: 09/13/23 08:59 Dose: 20 mg Documented By: Admin: 09/12/23 08:18 Dose: 20 mg Documented By: Admin: 09/11/23 08:45 Dose: 20 mg Documented By: Admin: 09/10/23 08:50 Dose: 20 mg Documented By: Admin: 09/09/23 08:57 Dose: 20 mg Documented By: MICAELA Clozapine (Clozapine 100 Mg Tab) 100 mg PO [facility]; Protocol Stop: 10/07/23 20:59 Last Admin: 09/12/23 20:48 Dose: 100 mg Documented By: Admin: 09/11/23 19:50 Dose: 100 mg Documented By: Admin: 09/10/23 19:44 Dose: 100 mg Documented By: Admin: 09/09/23 20:10 Dose: 100 mg Documented By: Admin: 09/08/23 19:58 Dose: 100 mg Documented By: Admin: 09/07/23 19:46 Dose: 100 mg Documented By: MIGUEL Glycerin (Glycerin Adult 12 Supp/Box Supp) 1 supp AL DAILY JAMEL Stop: 10/11/23 08:59 Last Admin: 09/12/23 08:16 Dose: 1 supp Documented By: Admin: 09/11/23 08:48 Dose: 1 supp Documented By: NESHA Insulin Aspart (Insulin Aspart Per Unit Charge) 0 units SC ACHS [facility] Stop: 10/08/23 16:29 Last Admin: 09/13/23 12:55 Dose: 2 units Documented By: ELISE Co-signed By: CHEYENNE Admin: 09/13/23 08:57 Dose: Not Given Documented By: ELISE Co-signed By: CHEYENNE Admin: 09/12/23 20:48 Dose: Not Given Documented By: MLM Co-signed By: KW Admin: 09/12/23 17:38 Dose: 1 units Documented By: KB Co-signed By: APR Admin: 09/12/23 11:59 Dose: Not Given Documented By: Admin: 09/12/23 08:23 Dose: 1 units Documented By: AAH Co-signed By: CEF Admin: 09/11/23 21:25 Dose: Not Given Documented By: Admin: 09/11/23 16:50 Dose: 2 units Documented By: AAH Co-signed By: Juan PabloJM Admin: 09/11/23 12:10 Dose: 1 units Documented By: AAH Co-signed By: CEF Admin: 09/11/23 08:42 Dose: 2 units Documented By: AABettie Co-signed By: CEF Admin: 09/10/23 20:48 Dose: Not Given Documented By: Admin: 09/10/23 17:08 Dose: Not Given Documented By: Admin: 09/10/23 12:10 Dose: 2 units Documented By: NEREIDA Co-signed By: LONI Admin: 09/10/23 08:49 Dose: 1 units Documented By: NEREIDA Co-signed By: DMBettie Admin: 09/09/23 20:48 Dose: Not Given Documented By: Admin: 09/09/23 17:06 Dose: Not Given Documented By: Admin: 09/09/23 12:18 Dose: 2 units Documented By: MICAELA Co-signed By: TK Admin: 09/09/23 08:54 Dose: Not Given Documented By: Admin: 09/08/23 20:08 Dose: Not Given Documented By: Admin: 09/08/23 17:07 Dose: 1 units Documented By: MICAELA Co-signed By: CHEYENNE Lactobacillus Acidophilus (Advanced Probiotic 625 Mg Capsule) 1,250 mg PO DAILY JAMEL Stop: 10/05/23 16:44 Last Admin: 09/13/23 08:59 Dose: 1,250 mg Documented By: Admin: 09/12/23 08:19 Dose: 1,250 mg Documented By: Admin: 09/11/23 08:45 Dose: 1,250 mg Documented By: Admin: 09/10/23 08:51 Dose: 1,250 mg Documented By: Admin: 09/09/23 08:56 Dose: 1,250 mg Documented By: Admin: 09/08/23 08:33 Dose: 1,250 mg Documented By: Admin: 09/07/23 09:31 Dose: 1,250 mg Documented By: Admin: 09/06/23 09:02 Dose: 1,250 mg Documented By: Admin: 09/05/23 17:29 Dose: 1,250 mg Documented By: NEWTON Lactulose (Lactulose 200gm/700ml Wtr Enema) 200 gm AL Q8H JAMEL Stop: 10/11/23 18:59 Last Admin: 09/13/23 10:54 Dose: Not Given Documented By: Admin: 09/13/23 03:01 Dose: Not Given Documented By: Admin: 09/12/23 20:47 Dose: Not Given Documented By: Admin: 09/12/23 11:27 Dose: Not Given Documented By: Admin: 09/12/23 03:05 Dose: Not Given Documented By: Admin: 09/11/23 19:54 Dose: Not Given Documented By: CASIE Levothyroxine Sodium (Levothyroxine Sodium 50 Mcg Tablet) 50 mcg PO DAILYBB JAMEL Stop: 10/02/23 06:29 Last Admin: 09/13/23 05:32 Dose: 50 mcg Documented By: MLAna Admin: 09/12/23 05:51 Dose: 50 mcg Documented By: MLAna Admin: 09/11/23 05:18 Dose: 50 mcg Documented By: Admin: 09/10/23 05:39 Dose: 50 mcg Documented By: Admin: 09/09/23 05:25 Dose: 50 mcg Documented By: Admin: 09/08/23 06:24 Dose: 50 mcg Documented By: AMAna Admin: 09/07/23 06:13 Dose: 50 mcg Documented By: Admin: 09/06/23 05:39 Dose: 50 mcg Documented By: Admin: 09/05/23 06:01 Dose: 50 mcg Documented By: Admin: 09/04/23 06:07 Dose: 50 mcg Documented By: Admin: 09/03/23 05:56 Dose: 50 mcg Documented By: Admin: 09/02/23 06:11 Dose: 50 mcg Documented By: MYA Lisinopril (Lisinopril 20 Mg Tab) 20 mg PO QAM [facility] Stop: 09/19/23 15:59 Last Admin: 09/13/23 08:59 Dose: 20 mg Documented By: Admin: 09/12/23 08:18 Dose: 20 mg Documented By: Admin: 09/11/23 08:45 Dose: 20 mg Documented By: Admin: 09/10/23 08:50 Dose: 20 mg Documented By: Admin: 09/09/23 08:55 Dose: 20 mg Documented By: Admin: 09/08/23 08:34 Dose: 20 mg Documented By: Admin: 09/07/23 09:31 Dose: 20 mg Documented By: Admin: 09/06/23 09:02 Dose: 20 mg Documented By: Admin: 09/05/23 08:35 Dose: 20 mg Documented By: Admin: 09/04/23 08:36 Dose: 20 mg Documented By: Admin: 09/03/23 10:00 Dose: 20 mg Documented By: Admin: 09/02/23 08:42 Dose: 20 mg Documented By: Admin: 09/01/23 08:27 Dose: 20 mg Documented By: Admin: 08/31/23 08:00 Dose: 20 mg Documented By: Admin: 08/30/23 09:29 Dose: 20 mg Documented By: Admin: 08/29/23 09:32 Dose: 20 mg Documented By: Admin: 08/28/23 09:22 Dose: 20 mg Documented By: Admin: 08/27/23 09:50 Dose: 20 mg Documented By: Admin: 08/26/23 07:39 Dose: 20 mg Documented By: Admin: 08/25/23 09:23 Dose: 20 mg Documented By: Admin: 08/24/23 08:18 Dose: 20 mg Documented By: Admin: 08/23/23 08:07 Dose: 20 mg Documented By: Admin: 08/22/23 07:52 Dose: 20 mg Documented By: Admin: 08/21/23 09:02 Dose: 20 mg Documented By: Admin: 08/20/23 16:31 Dose: 20 mg Documented By: GAMAL Melatonin (Melatonin 3 Mg Tab) 3 mg PO HS PRN PRN Reason: Sleep Stop: 10/07/23 00:05 Last Admin: 09/12/23 20:48 Dose: 3 mg Documented By: Admin: 09/09/23 21:45 Dose: 3 mg Documented By: Admin: 09/07/23 19:45 Dose: 3 mg Documented By: Admin: 09/07/23 00:17 Dose: 3 mg Documented By: MIGUEL Methenamine Hippurate (Methenamine Hippurate 1 Gm Tab) 1 gm PO BID [facility] Stop: 09/18/23 12:44 Last Admin: 09/13/23 08:58 Dose: 1 gm Documented By: Admin: 09/12/23 20:48 Dose: 1 gm Documented By: Admin: 09/12/23 08:15 Dose: 1 gm Documented By: Admin: 09/11/23 19:50 Dose: 1 gm Documented By: Admin: 09/11/23 08:35 Dose: 1 gm Documented By: Admin: 09/10/23 19:43 Dose: 1 gm Documented By: Admin: 09/10/23 08:51 Dose: 1 gm Documented By: Admin: 09/09/23 20:10 Dose: 1 gm Documented By: Admin: 09/09/23 08:56 Dose: 1 gm Documented By: Admin: 09/08/23 19:58 Dose: 1 gm Documented By: Admin: 09/08/23 14:07 Dose: 1 gm Documented By: MICAELA Metoprolol Succinate (Metoprolol Succ 25mg Ext Rel Tab) 25 mg PO QAM [facility] Stop: 10/10/23 08:59 Last Admin: 09/13/23 08:59 Dose: 25 mg Documented By: Admin: 09/12/23 08:15 Dose: 25 mg Documented By: Admin: 09/11/23 08:45 Dose: Not Given Documented By: Admin: 09/10/23 08:51 Dose: 25 mg Documented By: NEREIDA Ondansetron HCl (Ondansetron Inj 2 Mg/Ml 2 Ml Vial) 4 mg IV Q6H PRN PRN Reason: Nausea And Vomiting Stop: 10/09/23 10:08 Last Admin: 09/09/23 18:18 Dose: 4 mg Documented By: Admin: 09/09/23 10:16 Dose: 4 mg Documented By: MICAELA Pantoprazole Sodium (Pantoprazole 40 Mg Tab) 40 mg PO QAM JAMEL Stop: 10/07/23 08:59 Last Admin: 09/13/23 08:59 Dose: 40 mg Documented By: Admin: 09/12/23 08:19 Dose: 40 mg Documented By: Admin: 09/11/23 08:46 Dose: 40 mg Documented By: Admin: 09/10/23 08:51 Dose: 40 mg Documented By: Admin: 09/09/23 08:57 Dose: 40 mg Documented By: Admin: 09/08/23 08:33 Dose: 40 mg Documented By: Admin: 09/07/23 09:30 Dose: 40 mg Documented By: BEBO Polyethylene Glycol (Polyethylene (Miralax) 17 Gm Pack) 17 gm PO DAILY JAMEL Stop: 10/06/23 08:59 Last Admin: 09/13/23 09:07 Dose: 17 gm Documented By: Admin: 09/12/23 08:24 Dose: 17 gm Documented By: Admin: 09/11/23 08:34 Dose: 17 gm Documented By: Admin: 09/10/23 09:01 Dose: 17 gm Documented By: Admin: 09/09/23 08:56 Dose: 17 gm Documented By: Admin: 09/08/23 08:34 Dose: 17 gm Documented By: Admin: 09/07/23 09:30 Dose: 17 gm Documented By: Admin: 09/06/23 09:06 Dose: 17 gm Documented By: ZE Senna/Docusate Sodium (Docusate Sodium/Senna 50/8.6mg Tab) 1 tab PO BID JAMEL Stop: 09/24/23 08:59 Last Admin: 09/13/23 09:07 Dose: 1 tab Documented By: Admin: 09/12/23 20:48 Dose: 1 tab Documented By: Admin: 09/12/23 08:24 Dose: 1 tab Documented By: Admin: 09/11/23 19:54 Dose: 1 tab Documented By: Admin: 09/11/23 08:34 Dose: 1 tab Documented By: Admin: 09/10/23 19:43 Dose: Not Given Documented By: MLAna Admin: 09/10/23 09:01 Dose: 1 tab Documented By: Admin: 09/09/23 20:11 Dose: Not Given Documented By: Admin: 09/09/23 09:00 Dose: 1 tab Documented By: Admin: 09/08/23 19:58 Dose: Not Given Documented By: Admin: 09/08/23 08:37 Dose: 1 tab Documented By: Admin: 09/07/23 19:46 Dose: 1 tab Documented By: Admin: 09/07/23 09:34 Dose: 1 tab Documented By: Admin: 09/06/23 19:46 Dose: 1 tab Documented By: Admin: 09/06/23 09:06 Dose: 1 tab Documented By: Admin: 09/05/23 20:03 Dose: Not Given Documented By: Admin: 09/05/23 08:36 Dose: 1 tab Documented By: Admin: 09/04/23 19:44 Dose: 1 tab Documented By: Admin: 09/04/23 08:35 Dose: 1 tab Documented By: Admin: 09/03/23 20:22 Dose: 1 tab Documented By: Admin: 09/03/23 10:03 Dose: 1 tab Documented By: Admin: 09/02/23 20:15 Dose: Not Given Documented By: Admin: 09/02/23 09:06 Dose: 1 tab Documented By: Admin: 09/01/23 20:40 Dose: 1 tab Documented By: Admin: 09/01/23 08:30 Dose: 1 tab Documented By: Admin: 08/31/23 20:30 Dose: Not Given Documented By: Admin: 08/31/23 08:04 Dose: Not Given Documented By: Admin: 08/30/23 22:20 Dose: 1 tab Documented By: MIGUEL(2) Admin: 08/30/23 09:28 Dose: 1 tab Documented By: Admin: 08/29/23 21:15 Dose: 1 tab Documented By: MIGUEL(2) Admin: 08/29/23 09:26 Dose: 1 tab Documented By: Admin: 08/28/23 20:08 Dose: 1 tab Documented By: Admin: 08/28/23 09:22 Dose: 1 tab Documented By: Admin: 08/27/23 21:41 Dose: 1 tab Documented By: Admin: 08/27/23 09:49 Dose: 1 tab Documented By: Admin: 08/26/23 23:40 Dose: 1 tab Documented By: Admin: 08/26/23 07:39 Dose: 1 tab Documented By: Admin: 08/25/23 20:36 Dose: 1 tab Documented By: Admin: 08/25/23 09:20 Dose: 1 tab Documented By: JOSHUA C[place] [address] Office/OBS Consult Lvl 1 Patient Type Established History Problem Focused Exam Problem Focused Medical Decision Making [facility]
--- NOTE | 2023-09-14 08:10 | Hospitalist Progress Note ---
Date of Service September 14, 2023 Assessment & Plan (1) Stercoral colitis: (2) Constipation, chronic: (3) Full code status: (4) Aspiration pneumonia: (5) On mechanically assisted ventilation: (6) Acute respiratory failure: Plan Pt is a 72yoF with PMHx significant for HTN, HLD, DMII, hypothyroidism, Hx of brain tumor s/p partial resection, schizophrenia, prior migraine, chronic anemia, recurrent UTIs, urinary incontinence and urinary bladder diverticulum presented after being found down and minimally responsive at home. Patient was admitted to the ICU for management and evaluation of septic shock on admission. Was downgraded and re-intubated in the ICU from 08/11- 08/15. Had bronchoscopy on 08/11 without significant findings but did grow ryan. Acute respiratory failure due to pneumonia is currently resolved. She was also treated for possible ryan esophagitis with fluconazole and completed treatment while hospitalized. During her course, pt also had a UTI which was treated with IV Ertapenem from 08/28- 09/06. She completed UTI treatment while hospitalized. Her course was also further complicated by cognitive impairment and acute delirium in the setting of her known schizophrenia. Her clozaril which was held during her cognitive impairment was slowly titrated back up with the assistance of psychiatry. Neurology was also consulted for input. Previously recommended an MRI brain which later they noted was not needed. Also advised followup with [facility] after discharge. Advising and deferring to Psychiatry to keep dose of clozaril as low as possible while treating her schizophrenia. Pt is currently alert and oriented x2, interactive, on clozaril 100mg qhs at this time. During her cognitive impairment, pt was not eating and was started on tube feeds (08/19-) for severe malnutrition and failure to thrive in an adult. She is currently eating by mouth once more, with improved appetite. On admission, she was also noted to have severe constipation with stercoral colitis, likely in the setting of her chronic clozaril use. She was treated with multiple enemas, laxatives and stool softeners during her course. She needs to have ongoing bowel regimen and monitor for constipation. Currently on Senekot S 1 tab BID and daily miralax 17g. Hypothyroidism-Levothyroxine was continued. Hypertension-Held home antihypertensives while patient was on vasopressors. Currently back on home medications metoprolol, amlodipine, lisinopril. Blood pressure currently well controlled. Hyperlipidemia- her statin was held while on daptomycin during her early course. Resumed. DMII- her home metformin was held and she was started on insulin sliding scale once more when taking po again. Recurrent UTI-Initially home methenamine was held on admission, when unable to take po and during active treatment of her UTI. It is was resumed once her UTI treatment was completed. Recurrent migraines-home riboflavin was held, can continue after discharge. Chronic normocytic anemia: Hgb baseline ~9-10, stable. Anemia workup noting low iron level s/p IV Venofer on 09/08. Bradycardia- metoprolol dose decreased to 25mg Pt was evaluated by physical and occupational therapy and the current recommendation is acute rehab after hospitalization. Her course was complicated by there being no legal POA in the setting of cognitive impairment. She was previously with [facility] with a caregiver, Sidney assisting and listed in the chart. An application for guardianship has since been submitted and per Case Management's notation on 09/06 a discussion was had with Sidney and an auth was submitted to [facility] for placement. Pt is currently stable for discharge to acute rehab. CODE STATUS: FULL (pls see detailed discussion regarding her code status in previous documentation) Diet: DMII, soft bite-sized DVT prophylaxis: Lovenox SQ Dispo: Acute rehab, auth submitted to [facility], pt downgraded to med/surg in the interim Admission and Anticipated Discharge Date Admission Date: August 06, 2023 Subjective Pt seen in follow up of hypoxic resp. failure, was initially intubated on admission and then required re-intubation during her hosp. stay Initially treated for severe constipation, poss. perf. - this was ruled out, pt seen by gen. surgery and having BMs - however needing bowel regimen Then managed in ICU for pulm. edema, poss. pna Pt extubated Patient was not following commands, was nonverbal. NGT tube placed on (08/19/23) to provide nutrition. -> She started to eat. NG tube removed on (). Psychiatry following closely - started clozapine - currently on 100 HS Also treated for ESBL E. coli (finished abx course) Patient is now awake, interactive, and answers questions appropriately. She is feeling well, has occasional headaches which is not unusual for her, otherwise denies any symptoms. awaiting discharge. CM involved. Physical Exam Physical Exam: General: sitting up in bed in NAD, on RA, watching TV Neuro/ Psych: awake, alert, + eye contact, speech fluent, no facial asymmetry, able to answer questions appropriately - able to hold conversation w/o any issues, moves extremities HEENT: NC/AT CV: RRR Resp: no increased effort of breathing , ctab Abdomen: soft Extremities: moves extremities Results & Data Results & Data Vital Signs (Past 12 Hours) Vital Signs Temp Pulse Resp BP BP Pulse Ox O2 Del Method 09/14/23 07:07 36.4 C L 57 L 14 154/76 H 100 Room Air 09/13/23 20:47 36.7 C 59 L 16 126/67 100 Room Air Medications Administered Current Inpatient Medications Acetaminophen (Acetaminophen 325 Mg Tab) 650 mg PO Q4H PRN PRN Reason: Pain or Fever Stop: 09/29/23 21:47 Last Admin: 09/13/23 19:49 Dose: 650 mg Amlodipine Besylate (Amlodipine Besylate 5 Mg Tab) 5 mg PO DAILY JAMEL Stop: 09/22/23 08:59 Last Admin: 09/13/23 08:59 Dose: 5 mg Artificial Tears (Artificial Tears) 1 drops OPB QID PRN PRN Reason: Dryness Stop: 10/05/23 14:52 Atorvastatin Calcium (Atorvastatin 20 Mg Tab) 20 mg PO QAM JAMEL Stop: 10/09/23 08:59 Last Admin: 09/13/23 08:59 Dose: 20 mg Clozapine (Clozapine 100 Mg Tab) 100 mg PO HS JAMEL; Protocol Stop: 10/07/23 20:59 Last Admin: 09/13/23 19:50 Dose: 100 mg Dextrose (Dextrose 50% 50 Ml Syringe) 25 - 50 ml IV UD PRN; Protocol PRN Reason: Hypoglycemia Protocol Stop: 10/08/23 12:31 Glucagon (Glucagon For Inj 1 Mg Vial) 1 mg SQ UD PRN; Protocol PRN Reason: Hypoglycemia Protocol Stop: 10/08/23 12:31 Glucose (Glucose 10 Tab/Tube) 4 - 8 tab PO UD PRN; Protocol PRN Reason: Hypoglycemia Treatment Stop: 10/08/23 12:31 Glucose (Glucose 40% Gel 15 Gm Tube) 15 - 30 gm PO UD PRN; Protocol PRN Reason: Hypoglycemia Protocol Stop: 10/08/23 12:31 Glycerin (Glycerin Adult 12 Supp/Box Supp) 1 supp FL DAILY [facility] Stop: 10/11/23 08:59 Last Admin: 09/12/23 08:16 Dose: 1 supp Insulin Aspart (Insulin Aspart Per Unit Charge) 0 units SC ACHS [facility] Stop: 10/08/23 16:29 Last Admin: 09/13/23 20:53 Dose: Not Given Lactobacillus Acidophilus (Advanced Probiotic 625 Mg Capsule) 1,250 mg PO DAILY [facility] Stop: 10/05/23 16:44 Last Admin: 09/13/23 08:59 Dose: 1,250 mg Lactulose (Lactulose 200gm/700ml Wtr Enema) 200 gm FL Q8H [facility] Stop: 10/11/23 18:59 Last Admin: 09/14/23 03:20 Dose: Not Given Levothyroxine Sodium (Levothyroxine Sodium 50 Mcg Tablet) 50 mcg PO DAILYBB [facility] Stop: 10/02/23 06:29 Last Admin: 09/14/23 05:46 Dose: 50 mcg Lisinopril (Lisinopril 20 Mg Tab) 20 mg PO QAM [facility] Stop: 09/19/23 15:59 Last Admin: 09/13/23 08:59 Dose: 20 mg Melatonin (Melatonin 3 Mg Tab) 3 mg PO HS PRN PRN Reason: Sleep Stop: 10/07/23 00:05 Last Admin: 09/13/23 19:49 Dose: 3 mg Methenamine Hippurate (Methenamine Hippurate 1 Gm Tab) 1 gm PO BID [facility] Stop: 09/18/23 12:44 Last Admin: 09/13/23 19:49 Dose: 1 gm Metoprolol Succinate (Metoprolol Succ 25mg Ext Rel Tab) 25 mg PO QAM [facility] Stop: 10/10/23 08:59 Last Admin: 09/13/23 08:59 Dose: 25 mg Miscellaneous (Carbohydrates For Hypoglycemia ) 15 - 30 gm PO UD PRN PRN Reason: Hypoglycemia Protocol Stop: 10/08/23 12:31 Ondansetron HCl (Ondansetron Inj 2 Mg/Ml 2 Ml Vial) 4 mg IV Q6H PRN PRN Reason: Nausea And Vomiting Stop: 10/09/23 10:08 Last Admin: 09/09/23 18:18 Dose: 4 mg Pantoprazole Sodium (Pantoprazole 40 Mg Tab) 40 mg PO QAM JAMEL Stop: 10/07/23 08:59 Last Admin: 09/13/23 08:59 Dose: 40 mg Polyethylene Glycol (Polyethylene (Miralax) 17 Gm Pack) 17 gm PO DAILY JAMEL Stop: 10/06/23 08:59 Last Admin: 09/13/23 09:07 Dose: 17 gm Senna/Docusate Sodium (Docusate Sodium/Senna 50/8.6mg Tab) 1 tab PO BID JAMEL Stop: 09/24/23 08:59 Last Admin: 09/13/23 19:50 Dose: 1 tab (4) Aspiration pneumonia Laterality: bilateral
--- NOTE | 2023-09-14 12:03 | Discharge Summary ---
Date of Service September 14, 2023 Admission HPI Per Admitting Provider Ms. Deutsch is a 72 year old woman with a past medical history HTN, HLD, DMII, hypothyroidism, Hx of brain tumor s/p partial resection years ago (unknown pathology), somatization disorder, schizophrenia, prior migraine, chronic anemia, recurrent UTIs, urinary incontinence and urinary bladder diverticulum presented after being found down and minimally responsive at home. EMS arrived and noted patient to be hypotensive to low 60s. Patient was administered atropine/epi in route with marginal improvement in mental status; however, patient agitated on ED arrival and offered minimal information. Mental status progressively decline and pressor support increased prompting right jugular central line placement per ED. Patient evaluated prior to anticipated intubation. Patient with intermittent desaturations, poor respiratory effort. Pressor support increasing. Patient responsive minimally to physical stimuli. Spoke to Caregiver, Little, on phone. She states that patient was in her usual state of health the last few weeks without any concerns and in usual state of health. Sidney last saw patient around noon today and seemed to be fine--ambulating and eating without issue. She reports that the patient's neighbor called her as patient was outside and delirious, prompting visit to the ED-patient had noted 3 days of weakness, however, exam this morning was unremarkable, thus patient discharged home. This is when caregiver Sidney stayed by patient's side until noon--as the patient seemed to be at baseline, until the afternoon caregiver found her much later unresponsive. In the ED, vitals were notable for BP of 80-90s on epi drip, HR in 60s, and O2 sat of 50-90s prior to intubation Imaging revealed large stool burden, nonspecific colitis, small amount of ascites, bowel perforation? iso extralimnal gas EKG stable compared to prior, qtc 410 ED interventions: RIJ central line, Epi drip Consultants: ICU Patient to be admitted to ICU for further evaluation and management of shock, unclear etiology, likely iso bowel perforation. Admission Exam Per Admitting Provider Constitutional: ill appearing woman, not alert, minimal responsiveness to physial stimuli Eyes: equal, reactive, nondilated, no deviation Respiratory: minimal effort Cardiovascular: RRR, no murmur, no gallop Gastrointestinal (Abdomen): firm, profoundly distended Skin: ashen/warm/dry Principal Diagnosis Acute respiratory failure requiring mechanical ventilation, Septic shock-POA Cognitive Impairment , schizophrenia Severe constipation, stercoral colitis Complicated UTI Discharge Exam General: sitting up in bed in NAD, on RA Neuro/ Psych: awake, alert, + eye contact, speech fluent, no facial asymmetry, able to answer questions appropriately - able to hold conversation w/o any issues, moves extremities HEENT: NC/AT CV: RRR Resp: no increased effort of breathing , ctab Abdomen: soft Extremities: moves extremities Discharge Data Allergies Allergy/AdvReac Type Severity Reaction Status Date / Time Penicillins Allergy Intermediate Hives Verified 08/06/23 02:02 pollen extracts Allergy Intermediate seasonal Verified 08/06/23 02:02 allergy Cephalosporins AdvReac Intermediate Hallucinations/GI Verified 08/06/23 02:02 UPSET/ CONFUSION cyclobenzaprine AdvReac Intermediate neuro Verified 08/06/23 02:02 [From Flexeril] complications rizatriptan [From Maxalt] AdvReac Intermediate VERTIGO Verified 08/06/23 02:02 Consultations 08/06/23 17:58 Consult General Surgery Stat 08/06/23 20:21 Consult Records Analyst Routine 08/07/23 10:57 Consult Neurology Routine 08/10/23 10:37 Consult Pulmonology Routine 08/11/23 00:53 Consult Records Analyst Routine 08/13/23 19:01 Consult Psychiatry Routine 08/25/23 16:52 Consult Gastroenterology Routine 08/28/23 18:20 Consult Infectious Diseases Routine 09/12/23 16:28 Consult Psychiatry Routine Ordered Studies 08/06/23 16:43 CT head/brain wo con Stat 08/06/23 17:02 CT Abd and Pelvis [CT abd pelvis wo con] Stat 08/06/23 19:17 CT Abd and Pelvis [CT abd pelvis IV con only] Stat 08/16/23 08:59 US venous doppler UE BI Routine Hospital Course (1) On mechanically assisted ventilation: (2) Aspiration pneumonia: (3) Stercoral colitis: (4) Full code status: (5) Schizophrenia: (6) Constipation, chronic: (7) Acute respiratory failure: (8) Acute UTI: Plan Plan Pt is a 72yoF with PMHx significant for HTN, HLD, DMII, hypothyroidism, Hx of brain tumor s/p partial resection, schizophrenia, prior migraine, chronic anemia, recurrent UTIs, urinary incontinence and urinary bladder diverticulum presented after being found down and minimally responsive at home. Patient was admitted to the ICU for management and evaluation of septic shock on admission. Was downgraded and re-intubated in the ICU from 08/11- 08/15. Had bronchoscopy on 08/11 without significant findings but did grow ryan. Acute respiratory failure due to pneumonia is currently resolved. She was also treated for possible ryan esophagitis with fluconazole and completed treatment while hospitalized. During her course, pt also had a UTI which was treated with IV Ertapenem from 08/28- 09/06. She completed UTI treatment while hospitalized. Her course was also further complicated by cognitive impairment and acute delirium in the setting of her known schizophrenia. Her clozaril which was held during her cognitive impairment was slowly titrated back up with the assistance of psychiatry. Neurology was also consulted for input. Previously recommended an MRI brain which later they noted was not needed. Also advised followup with [facility] after discharge. Advising and deferring to Psychiatry to keep dose of clozaril as low as possible while treating her schizophrenia. Pt is currently alert and oriented x2, interactive, on clozaril 100mg qhs at this time. During her cognitive impairment, pt was not eating and was started on tube feeds (08/19-) for severe malnutrition and failure to thrive in an adult. She is currently eating by mouth once more, with improved appetite. On admission, she was also noted to have severe constipation with stercoral colitis, likely in the setting of her chronic clozaril use. She was treated with multiple enemas, laxatives and stool softeners during her course. She needs to have ongoing bowel regimen and monitor for constipation. Currently on Senekot S 1 tab BID and miralax 17g BID. She may need suppository prn if not having BM in 2-3 days. Hypothyroidism-Levothyroxine was continued. Hypertension-Held home antihypertensives while patient was on vasopressors. Currently back on home medications metoprolol, amlodipine, lisinopril. Blood pressure currently well controlled. Hyperlipidemia- her statin was held while on daptomycin during her early course. Resumed. DMII- her home metformin was held and she was started on insulin sliding scale once more when taking po again. Recurrent UTI-Initially home methenamine was held on admission, when unable to take po and during active treatment of her UTI. It is was resumed once her UTI treatment was completed. Recurrent migraines-home riboflavin and smatriptan was held, can continue after discharge. Chronic normocytic anemia: Hgb baseline ~9-10, stable. Anemia workup noting low iron level s/p IV Venofer on 09/08. Bradycardia- metoprolol dose decreased to 25mg Pt was evaluated by physical and occupational therapy and the current recommendation is acute rehab after hospitalization. Her course was complicated by there being no legal POA in the setting of cognitive impairment. She was previously with [email or web address] with a caregiver, Sidney assisting and listed in the chart. An application for guardianship has since been submitted and per Case Management's notation on 09/06. Pt is currently stable for discharge to acute rehab. CODE STATUS: FULL Diet: DMII, soft bite-sized DVT prophylaxis: Lovenox SQ Dispo: Acute rehab,[facility] Total Time Total Time Spent Total Time Spent (In Minutes): 40 Discharge Plan Discharge Items Patient Disposition: Transfer Inpatient Rehab Fac Reason For Visit: LOC, ?BOWEL PERF Discharge Diagnosis: Acute respiratory failure requiring mechanical ventilation, Septic shock-POA Cognitive Impairment , schizophrenia Severe constipation, stercoral colitis Complicated UTI Activity: Per Instructions section Non-emergency contact: Primary Care Provider Call non-emergency contact if: you have any medication questions and your symptoms worsen Follow-up/Referrals: Raymond Vann, [Primary Care Provider] - Diet: Carb Consistent or DM2 Diet Texture: Dental soft (bite-sized) Addtl Attending Provider Instructions: Follow up with your primary care physician. Your medication - clozapine - was decreased to 100 mg nightly. You need to be on a bowel regimen and make sure you have a bowel movement at least every 2-3 days. If not, your bowel regimen needs to be further adjusted. Metoprolol succinate was decreased to 25 mg daily. Pending Studies at Discharge: No Stand-Alone Forms: My [facility] [employer] Skilled Items Patient informed of condition?: Yes DNR: No Discharge Level of Care: Acute rehab Communicable Disease: No Discharge Prognosis: Stable Lines: None Urinary Catheter: No Medications and DC Order Prescriptions: New clozapine 100 mg Tablet 100 mg PO HS Qty: 30 0RF sennosides-docusate sodium [Senokot-S] 8.6-50 mg Tablet 1 tab PO BID Qty: 60 0RF polyethylene glycol 3350 [Miralax] 17 gram Powder In Packet 17 g PO BID Qty: 30 0RF metoprolol succinate 25 mg Tablet Extended Release 24 Hr 25 mg PO QAM Qty: 30 0RF acetaminophen 325 mg Tablet 650 mg PO Q4H PRN (Reason: pain) Qty: 14 0RF Continued levothyroxine [Synthroid] 50 mcg tablet 50 mcg PO DAILYBB atorvastatin 20 mg Tablet 20 mg PO HS sumatriptan succinate 100 mg Tablet 100 mg PO DAILY PRN (Reason: Headache) loratadine [Claritin] 10 mg Tablet 10 mg PO HS PRN (Reason: Allergy Symptoms) magnesium oxide 400 mg magnesium Tablet 400 mg PO QAM riboflavin (vitamin B2) 400 mg tablet 400 mg PO QAM metformin 500 mg tablet 500 mg PO QAM Rx Instructions: take with breakfast fluticasone propionate [Flonase Allergy Relief] 50 mcg/actuation [place],Suspension 2 spray INTRANASAL DAILY aspirin [Aspirin Childrens] 81 mg Tablet,Chewable 81 mg PO DAILY omeprazole 40 mg capsule,delayed release(DR/EC) 40 mg PO HS cholecalciferol (vitamin D3) 1,250 mcg (50,000 unit) capsule 1,250 mcg PO WK lisinopril 20 mg tablet 20 mg PO QAM cyanocobalamin (vitamin B-12) [Vitamin B-12] 1,000 mcg Tablet 1,000 mcg PO DAILY amlodipine 5 mg Tablet 5 mg PO DAILY acetaminophen 500 mg/15 mL Liquid 100 mg PO Q4H PRN (Reason: PAIN/FEVER) diclofenac sodium [Voltaren] 1 % Gel 2 g TOPICAL TID PRN (Reason: Pain) Rx Instructions: APPLY TO BACK OF NECK methenamine hippurate 1 gram tablet 1 g PO AMHS Vitron-C 65 mg iron- 125 mg Tablet,Delayed Release (Dr/Ec) 1 tab PO DAILY Discontinued duloxetine [Cymbalta] 60 mg capsule,delayed release(DR/EC) 60 mg PO QAM docusate sodium [Colace] 100 mg Capsule 100 mg PO BID gabapentin 100 mg Capsule See Rx Instructions .ROUTE .COMPLEX Rx Instructions: TAKE 200 MG QAM & HS, THEN 100 MG AT 1400 DAILY clozapine 100 mg tablet 300 mg PO HS clozapine 25 mg tablet 50 mg PO QAM metoprolol succinate 50 mg tablet extended release 24 hr 50 mg PO QAM Metamucil Smooth Texture S/F Powder 1 tsp PO TID Rx Instructions: mix into at least 4 oz water or juice before administering diclofenac sodium [Voltaren] 50 mg Tablet,Delayed Release (Dr/Ec) 50 mg PO BID Discharge Orders: Discharge Order (Routine); Ordered 09/14/23 Ordered By: Bunny Cagle Admission Data Admit Date/Time: 08/06/23 18:47 Attending Provider: Bunny Cagle Admit Provider: Mell Cary Primary Care Provider: Raymond Vann Other Providers: Jeff King; Shannon Khan; Makenna Blanchard; Alpesh Lynn; Alpesh Richmond; Shanelle Barone; Lovely Tsang; Rui Brown; Riley Meade; Jayson Elmore Jr; Corbin Limon; Jules Sloitario; Manuel Damico; Clay Young I.; Raymond Nance II; Rebecca Ortiz; Riley Deleon; Gustavo Valerio; Kael Marcus; Carly De La Cruz; [place],; Jo-Ann Gutierrez.; Donna Rizzo; [facility]
[2023-09-14] MEDS: bisacodyL 10 MG SUPP PR STA (13:26)
== END 2023-09-14 15:00 | DRG 871 ==
LOC: ED 16:37 → 1E 18:47 → SUATTDRO 18:47 → 1E 20:18 → 2S 08-17 20:36 → 2E 08-29 10:42 → 3E 09-08 13:05

== ENCOUNTER 2023-09-25 13:49 | Inpatient (IN) ==
[2023-09-25 15:02] LABS: Basophils # (auto) 0.04 K/uL (0.00-0.20); Basophils % (auto) 0.7 %; Eosinophils # (auto) 0.01 K/uL (0.00-0.50); Eosinophils % (auto) 0.2 %; Hematocrit (blood only) 29.6 % (37.0-47.0); Immature Granulocytes # (auto) 0.01 K/uL (0.01-0.20); Immature Granulocytes % (auto) 0.2 %; Lymphocytes # (auto) 1.97 K/uL (1.20-3.40); Lymphocytes % (auto) 36.6 %; Mean Corpuscular Hemoglobin 28.2 pg (25.0-34.0); Mean Corpuscular Hgb Conc 33.8 g/dL (32.0-36.0); Mean Corpuscular Volume 83.6 fL (80.0-100.0); Mean Platelet Volume 10.7 fL (9.4-12.4); Monocytes # (auto) 0.59 K/uL (0.11-0.59); Neutrophils # (auto) 2.76 K/uL (1.40-6.50); Neutrophils % (auto) 51.3 %; Platelet Count 205 K/uL (130-400); RDW Standard Deviation 45.6 fL (36.4-46.3); Red Blood Count 3.54 M/uL (4.20-5.40); White Blood Count 5.38 K/ul (4.8-10.8)
[2023-09-25 15:02] LABS: iSTAT Creatinine 0.4 mg/dl (0.6-1.3); iSTAT Hemoglobin 9.9 g/dl (12.0-16.0); iSTAT Ionized Calcium 1.18 mmol/l (1.12-1.32); iSTAT Potassium 3.6 mmol/L (3.3-5.0)
[2023-09-25 15:21] LABS: Albumin Globulin Ratio 1.9 (0.9-2); Albumin Level 3.7 gm/dl (3.4-5.0); BUN Creatinine Ratio 34.1 (10-20); Bilirubin,Total 0.3 mg/dl (0.2-1.0); Calcium 9.1 mg/dl (8.6-10.3); Creatinine Clr Calc Pharmacy 108.3 ml/min; Est GFR (Non-African American) 101.8 ml/min; Globulin 1.9 gm/dl (2.5-4.0); Potassium 3.6 mmol/L (3.5-5.1); Total Protein 5.6 gm/dl (6.0-8.3)
--- NOTE | 2023-09-25 15:22 | XRay Report ---
SINGLE VIEW CHEST CLINICAL HISTORY: Atypical chest pain FINDINGS: An AP, portable, upright chest radiograph is compared to study dated 08/29/2023. The heart i s mildly enlarged noting atherosclerotic calcification of the thoracic aorta. The pulmonary vasculatu re is noncongested. Chronic interstitial thickening is similar to previous. There is mild bibasilar s carring/atelectasis. The lungs and pleural spaces are otherwise clear. No pneumothorax is seen. The s keletal structures are osteopenic. The bony thorax is grossly intact. IMPRESSION: Cardiomegaly with no active disease in the chest. ACT 112: Negative or not required by law. Electronically signed by: Patel Qiu M.D. 09/25/2023 3:20 PM
--- NOTE | 2023-09-25 15:25 | XRay Report ---
XR KUB/Abdomen 1 view CLINICAL HISTORY: ams TECHNIQUE: 1 view of the abdomen was obtained. Comparison: Comparison is made to abdomen radiograph 08/26/2023 FINDINGS: Lung bases are unremarkable. Degenerative changes are seen in the visualized skeleton. Left pelvic ca lcification is stable. The bowel gas pattern is nonobstructive. A moderate amount of stool is noted w ithin the large bowel. IMPRESSION: Nonobstructive bowel gas pattern. ACT 112: Negative or not required by law. Electronically signed by: Trevin Yeboah M.D. 09/25/2023 3:23 PM
[2023-09-25 15:30] LABS: Partial Thromboplastin Ratio 1.1; Partial Thromboplastin Time 30 Seconds (21-31); Prothrombin Time 11.2 Seconds (9.0-12.0)
[2023-09-25 15:38] LABS: Influenza A virus by PCR Negative (Neg); Influenza B virus by PCR Negative (Neg); RSV by PCR Negative (Neg); SARS CoV2 RNA(COVID-19) Ceph NEGATIVE (Negative)
--- NOTE | 2023-09-25 15:45 | Electrocardiogram Report ---
Test Reason : Blood Pressure : / mmHG Vent. Rate : 051 BPM Atrial Rate : 051 BPM P-R Int : 130 ms QRS Dur : 082 ms QT Int : 458 ms P-R-T Axes : 070 025 044 degrees QTc Int : 422 ms Poor data quality, interpretation may be adversely affected Sinus bradycardia Nonspecific ST and T wave abnormality Abnormal ECG When compared with ECG of 13-AUG-2023 09:58, Vent. rate has decreased BY 33 BPM T wave inversion no longer evident in Inferior leads T wave inversion less evident in Anterolateral leads Confirmed by Austin Barry ([id number]) on 09/25/2023 3:45:18 PM Referred By: Confirmed By:Austin Barry
[2023-09-25 15:47] LABS: HCO3 VBG 25 mmol/L; PCO2 VBG 38 mmHg (38-50); PO2 VBG 109 mmHg; pH VBG 7.43 (7.36-7.41)
--- NOTE | 2023-09-25 15:53 | CT Scan Report ---
CT OF THE HEAD WITHOUT CONTRAST CLINICAL HISTORY: Altered mental status. COMPARISON STUDY: Head CT August 06, 2023. CT DOSE: 625.8 mGy.cm TECHNIQUE: Helical axial images of the head were obtained without IV contrast. Automated exposure con trol was utilized for the study. A dose lowering technique was utilized adhering to the principles o f ALARA. FINDINGS: No acute intracranial hemorrhage, midline shift or mass effect is present. The ventricular system is unremarkable. The basal cisterns are patent. No extra-axial collections are present. There are no findings to suggest acute dural sinus thrombosis or acute territorial infarct. No calvarial fr acture is identified. Right posterior calvarial defect is chronic. IMPRESSION: No acute intracranial findings. No change in appearance of the brain. ACT 112: Negative or not required by law. Electronically signed by: Lukas Law M.D. 09/25/2023 3:52 PM
[2023-09-25 16:07] LABS: Magnesium 1.8 mg/dl (1.7-2.4)
[2023-09-25 17:19] LABS: Appearance Urine Clear (Clear); Bilirubin Urine Negative (Negative); Blood Urine Negative (Negative); Color Urine Yellow; Glucose Urine UA Negative (Negative); Ketones Urine Negative (Negative); Leukocyte Esterase Urine Negative (Negative); Nitrite Urine Negative (Negative); Protein Urine Negative (Negative); Specific Gravity Urine 1.007 (1.000-1.030); Urobilinogen Urine Negative (Negative); pH Urine 6.5 (4.5-7.5)
--- NOTE | 2023-09-25 19:25 | History & Physical Report ---
Date of Service September 25, 2023 Assessment & Plan (1) Weakness: (2) Syncope: Plan: 73-year-old female with history of diabetes type 2, hypertension, dyslipidemia, hypothyroidism, brain tumor s/p resection, schizophrenia, migraine, anemia, recurrent UTIs Presenting today after being discharged from [facility] yesterday for weakness and a syncopal episode while at the ER triage area. WEAKNESS, SYNCOPE LIKELY SECONDARY TO ORTHOSTATIC HYPOTENSION,POSSIBLE UNDERLYING SICK SINUS SYNDROME Patient recently admitted to [facility] for pneumonia, respiratory failure s/p intubation, UTI, delirium, stercoral colitis from constipation And was observed to have bradycardia, metoprolol reduced in dose. While at [facility], patient noted to have borderline blood pressure and bradycardia. Amlodipine, lisinopril, metoprolol subsequent discontinued discontinued. She has been off these medications for a few days now. She was discharged from [facility] yesterday. She now presents with weakness and syncope in the setting of marginal blood pressure and sinus bradycardia in the 50s She has dry oral mucosa and has low sodium indicating dehydration. IV NSS Check TSH, cortisol level Had a recent echo done in August 2023 which showed preserved ejection fraction, no significant valvular abnormalities Hold clozapine as syncope, bradycardia listed as adverse effects If bradycardia continues, consult cardiology service RULE OUT CVA Brain MRI ordered RULE OUT SEIZURE As a history of brain tumor, status post resection EEG Acute coronary syndrome unlikely as patient has negative troponin, no chest pain Hypoglycemia ruled out Infection unlikely as urinalysis, chest x-ray negative DIABETES TYPE 2 Insulin sliding scale Hold metformin HYPERTENSION Currently with marginal blood pressures HYPOTHYROIDISM Check TSH BRAIN TUMOR S/P RESECTION SCHIZOPHRENIA Started on clozapine for delirium a few weeks ago during her last admission Hold clozapine for now as this may cause bradycardia, syncope Reconsult psychiatry Migraine Chronic anemia Recurrent UTI DVT prophylaxis SCDs for now CODE STATUS Full code as per patient Disposition PT and OT evaluation after hydration May need to return to acute rehab History of Present Illness Chief Complaint: Weakness, syncope Primary Care Provider: Raymond Vann DO 73-year-old female with history of diabetes type 2, hypertension, dyslipidemia, hypothyroidism, brain tumor s/p resection, schizophrenia, migraine, anemia, recurrent UTIs Presenting today after being discharged from [facility] yesterday for weakness and a syncopal episode while at the ER triage area. Patient was recently admitted to [facility] for acute respiratory failure secondary to pneumonia, UTI, delirium, constipation with stercoral colitis, bradycardia And was subsequently transferred to [facility] for physical rehabilitation. Records from [facility] obtained and reviewed. Stay was remarkable for note of hypotension and bradycardia for which her amlodipine, lisinopril, metoprolol has been discontinued. She was discharged back to home yesterday. As per patient, she lives with a roommate and has no family members around. She was brought back into the ER due to weakness. While sitting up at the triage area, patient complained of dizziness and was witnessed to have slumped over, placed on supine position and immediately regained consciousness. No witnessed seizure-like activity. Vital signs remarkable for borderline blood pressure, heart rate in the 50s. Labs sodium [address] head negative for acute CVA Chest x-ray no pneumonia On exam, patient sleeping but easily awakened, oriented x 1-2, answers most questions appropriately States she feels fine overall, just felt weak yesterday after returning home from [facility]. She denies chest pain, shortness of breath, palpitations, headache, focal neurologic symptoms, including weakness or numbness. Allergies Allergy/AdvReac Type Severity Reaction Status Date / Time Penicillins Allergy Intermediate Hives Verified 09/25/23 18:19 pollen extracts Allergy Intermediate seasonal Verified 09/25/23 18:19 allergy Cephalosporins AdvReac Intermediate Hallucinations/GI Verified 09/25/23 18:19 UPSET/ CONFUSION cyclobenzaprine AdvReac Intermediate neuro Verified 09/25/23 18:19 [From Flexeril] complications rizatriptan [From Maxalt] AdvReac Intermediate VERTIGO Verified 09/25/23 18:19 Home Medications Medication Instructions Recorded Confirmed Type levothyroxine 50 mcg tablet 50 mcg PO DAILYBB 04/14/18 09/25/23 History (Synthroid) loratadine 10 mg tablet (Claritin) 10 mg PO HS PRN Allergy Symptoms 03/25/19 09/25/23 History magnesium oxide 400 mg PO QAM 03/25/19 09/25/23 History atorvastatin 20 mg tablet 20 mg PO HS 11/22/19 09/25/23 History sumatriptan succinate 100 mg tablet 100 mg PO DAILY PRN Headache 11/22/19 09/25/23 History metformin 500 mg tablet 500 mg PO QAM 02/24/21 09/25/23 History riboflavin (vitamin B2) 400 mg 400 mg PO QAM 02/24/21 09/25/23 History tablet fluticasone propionate 50 2 spray intranasal DAILY 07/13/21 09/25/23 History mcg/actuation nasal spray,suspension (Flonase Allergy Relief) aspirin 81 mg chewable tablet 81 mg PO DAILY 05/12/22 09/25/23 History (Aspirin Childrens) cholecalciferol (vitamin D3) 1,250 1,250 mcg PO WK 12/16/22 09/25/23 History mcg (50,000 unit) capsule omeprazole 40 mg capsule,delayed 40 mg PO HS 12/16/22 09/25/23 History release lisinopril 20 mg tablet 20 mg PO QAM 01/15/23 09/25/23 History acetaminophen 500 mg/15 mL oral 100 mg PO Q4H PRN PAIN/FEVER 08/06/23 09/25/23 History liquid amlodipine 5 mg tablet 5 mg PO DAILY 08/06/23 09/25/23 History cyanocobalamin (vitamin B-12) 1,000 mcg PO DAILY 08/06/23 09/25/23 History 1,000 mcg tablet (Vitamin B-12) diclofenac sodium 1 % topical gel 2 g topical TID PRN Pain 08/06/23 09/25/23 History iron,carbonyl 65 mg-vitamin C 125 1 tab PO DAILY 08/06/23 09/25/23 History mg tablet,delayed release (Vitron-C) methenamine hippurate 1 gram tablet 1 g PO AMHS 08/06/23 09/25/23 History clozapine 100 mg tablet 100 mg PO HS 09/25/23 09/25/23 History docusate sodium 100 mg capsule 100 mg PO BID 09/25/23 09/25/23 History duloxetine 60 mg capsule,delayed 60 mg PO DAILY 09/25/23 09/25/23 History release sprinkle gabapentin 100 mg capsule See Rx Instructions .Route .COMPLEX 09/25/23 09/25/23 History magnesium hydroxide 400 mg/5 mL 400 mg PO DAILY PRN Constipation 09/25/23 09/25/23 History oral suspension metoprolol succinate 50 mg 50 mg PO DAILY 09/25/23 09/25/23 History tablet,extended release 24 hr polyethylene glycol 3350 17 17 g PO DAILY PRN Constipation 09/25/23 09/25/23 History gram/dose oral powder (Miralax) psyllium husk 3.4 gram/5.4 gram 1 tbsp PO TID 09/25/23 09/25/23 History oral powder (Metamucil) Past Med/Surg History Medical History Schizophrenia Volume overload Weak cough Severe sepsis Aspiration pneumonia Weakness Constipation Bacteremia Acute UTI (urinary tract infection) Generalized weakness AMS (altered mental status) Unresponsive Obtunded COVID-19 Hyponatremia Nausea Dehydration Dizziness Neuropathy Headache Vertigo GERD (gastroesophageal reflux disease) Well controlled with medication Hypothyroidism Anxiety Migraine Hypertension Neuropathy DM2 (diabetes mellitus, type 2) HLD (hyperlipidemia) Somatization disorder Surgical History S/P foot surgery, right X2 S/P foot surgery, left X2 History of colonoscopy History of tooth extraction WISDOM TEETH History of tonsillectomy H/O bilateral cataract extraction History of craniotomy 1969, [place] D/T HEADACHE---FOLLOWS W DR. MICHAEL History of cataract surgery H/O cystoscopy H/O foot surgery H/O brain surgery "abt 1969 R parietal exploration for benign lesion" Family History Grandmother Family history of diabetes mellitus PATERNAL Family/Other Family history of diabetes mellitus UNCLE Father Parkinson disease Mother CHF (congestive heart failure) Social History Smoking Status: Never smoker Second Hand Exposure: Yes (FATHER SMOKED); Do You Dip or Chew Tobacco: No; Hx Alcohol Use: No Hx Substance Use: No Preferred Language: Greek Communication Ability: Unable Budget Engineer Required: No Beliefs That Will Affect Care: Catholic Catholic Beliefs: jewish marital status: Single Current Living Situation: Personal Care Facility Current Living Situation Comment: caregivers daily, not on weekends How many Children do You have: 0 Feels Safe at Home: Yes Assistive Devices: Walker Review of Systems Review of Systems: all noted and negative except for above Physical Exam Physical Exam: General- oriented x 1-2, not in distress, speaks in sentences with no effort or accessory muscle use Head- atraumatic Eyes- PERRL, EOMI, anicteric ENT- oropharynx clear, dry oral mucosa Neck- supple, no JVD, no adenopathy, no thyromegaly; carotids +2/2, no bruits appreciated Lungs- clear to auscultation bilaterally, no rales/wheezes Heart- normal rate, regular rhythm; no murmur, no gallop, no rub appreciated Abdomen- normal bowel sounds, nondistended, soft, nontender, no masses or hepatosplenomegaly Extremities- no pretibial edema, no calf tenderness; peripheral pulses intact Neuro- alert, oriented x 1-2; CN 2-12 grossly intact; motor 5/5 bilaterally;sensation 100% on all extremities; no other gross focal neurologic deficits Skin- warm & dry Results & Data Results & Data Vital Signs (Past 12 Hours) Vital Signs Temp Pulse Pulse Resp BP BP Pulse Ox 09/25/23 18:12 56 L 09/25/23 17:00 57 L 18 127/70 99 09/25/23 16:07 54 L 18 129/71 100 09/25/23 15:08 52 L 09/25/23 15:00 54 L 17 126/66 99 09/25/23 14:56 53 L 16 120/56 L 98 09/25/23 14:30 52 L 19 98 09/25/23 14:29 52 L 17 98 09/25/23 13:54 36.4 C L 56 L 18 98/60 L 100 O2 Del Method 09/25/23 18:12 09/25/23 17:00 Room Air 09/25/23 16:07 Room Air 09/25/23 15:08 09/25/23 15:00 Room Air 09/25/23 14:56 Room Air 09/25/23 14:30 Room Air 09/25/23 14:29 Room Air 09/25/23 13:54 Room Air all noted and reviewed including below Diagnostic Findings Chest X-Ray 09/25/23 14:36 SINGLE VIEW CHEST CLINICAL HISTORY: Atypical chest pain FINDINGS: An AP, portable, upright chest radiograph is compared to study dated 08/29/2023. The heart is mildly enlarged noting atherosclerotic calcification of the thoracic aorta. The pulmonary vasculature is noncongested. Chronic interstitial thickening is similar to previous. There is mild bibasilar scarring/atelectasis. The lungs and pleural spaces are otherwise clear. No pneumothorax is seen. The skeletal structures are osteopenic. The bony thorax is grossly intact. IMPRESSION: Cardiomegaly with no active disease in the chest. ACT 112: Negative or not required by law. Electronically signed by: Patel Qiu M.D. 09/25/2023 3:[address] 09/25/23 15:03 CT OF THE HEAD WITHOUT CONTRAST CLINICAL HISTORY: Altered mental status. COMPARISON STUDY: Head CT August 06, 2023. CT DOSE: 625.8 mGy.cm TECHNIQUE: Helical axial images of the head were obtained without IV contrast. Automated exposure control was utilized for the study. A dose lowering technique was utilized adhering to the principles of ALARA. FINDINGS: No acute intracranial hemorrhage, midline shift or mass effect is present. The ventricular system is unremarkable. The basal cisterns are patent. No extra-axial collections are present. There are no findings to suggest acute dural sinus thrombosis or acute territorial infarct. No calvarial fracture is identified. Right posterior calvarial defect is chronic. IMPRESSION: No acute intracranial findings. No change in appearance of the brain. ACT 112: Negative or not required by law. Electronically signed by: Lukas Law M.D. 09/25/2023 3:52 PM KUB X-Ray 09/25/23 15:03 XR KUB/Abdomen 1 view CLINICAL HISTORY: ams TECHNIQUE: 1 view of the abdomen was obtained. Comparison: Comparison is made to abdomen radiograph 08/26/2023 FINDINGS: Lung bases are unremarkable. Degenerative changes are seen in the visualized skeleton. Left pelvic calcification is stable. The bowel gas pattern is nonobstructive. A moderate amount of stool is noted within the large bowel. IMPRESSION: Nonobstructive bowel gas pattern. ACT 112: Negative or not required by law. Electronically signed by: Trevin Yeboah M.D. 09/25/2023 3:23 PM Code Status & VTE Plan VTE Prophylaxis Plan VTE Prophylaxis will be ordered: Yes
--- NOTE | 2023-09-25 20:39 | Magnetic Resonance Report ---
Exam(s): MRI HEAD Without Contrast EXAM: MR Head Without Intravenous Contrast CLINICAL HISTORY: Reason for exam: syncope. TECHNIQUE: Magnetic resonance images of the head/brain without intravenous contrast in multiple planes. COMPARISON: CT head from March 08, 2023 FINDINGS: Brain: Mild diffuse cerebral atrophy and periventricular white matter T2 hyperintensity consistent with chronic small vessel disease and/or senescent changes, unchanged. No areas of diffusion restriction are seen to indicate acute stroke. No hemorrhage. Ventricles: Unremarkable. No ventriculomegaly. Bones/joints: Unremarkable. No acute fracture. Sinuses: Unremarkable as visualized. No acute sinusitis. Mastoid air cells: Unremarkable as visualized. No mastoid effusion. Orbits: Unremarkable as visualized. IMPRESSION: Mild diffuse cerebral atrophy and periventricular white matter T2 hyperintensity consistent with chronic small vessel disease and/or senescent changes, unchanged. No areas of diffusion restriction are seen to indicate acute stroke. Electronically signed by: Fantasma Young MD 09/25/23 20:38 PM
[2023-09-25] MEDS ORDERED: CARBOHYDRATES FOR HYPOGLYCEMIA PO PRN (20:45)
[2023-09-25] MEDS ORDERED: GLUCOSE 10 TAB/TUBE PO PRN (20:45)
[2023-09-25] MEDS ORDERED: GLUCAGON FOR INJ 1 MG VIAL SQ PRN (20:45)
[2023-09-25] MEDS ORDERED: DEXTROSE 50% 50 ML SYRINGE IV PRN (20:45)
[2023-09-25] MEDS ORDERED: GLUCOSE 40% GEL 15 GM TUBE PO PRN (20:45)
[2023-09-25] MEDS ORDERED: LORATADINE 10 MG TAB PO PRN (20:45)
[2023-09-25] MEDS ORDERED: ACETAMINOPHEN SUSP 160 MG/5 ML BTL PO PRN (20:55)
[2023-09-25] MEDS: INSULIN ASPART PER UNIT CHARGE SC SCH (21:26)
[2023-09-25] MEDS: SODIUM CHLORIDE 0.9% 1,000 ML IV SCH (21:26)
[2023-09-25] MEDS: PANTOprazole 40 MG TAB PO SCH (21:44)
[2023-09-25] MEDS: ATORVASTATIN 20 MG TAB PO SCH (21:44)
[2023-09-25] MEDS: METHENAMINE HIPPURATE 1 GM TAB PO SCH (21:44)
[2023-09-25 22:46] LABS: BUN Creatinine Ratio 32.4 (10-20); Calcium 9.5 mg/dl (8.6-10.3); Est GFR (Non-African American) 105.3 ml/min; Potassium 3.7 mmol/L (3.5-5.1)
[2023-09-25 23:00] LABS: Thyroid Stimulating Hormone 2.231 uIu/ml (0.300-4.500)
--- NOTE | 2023-09-25 23:15 | Emergency Department Note ---
History of Present Illness General Chief complaint: Weakness Time Seen by Provider: 09/25/23 14:54 History of Present Illness Provider complaint: Syncope weakness Onset (ago): day(s) 1 Maximum Pain Intensity: 8 73-year-old female presents emergency department for weakness. Patient states she was discharged from rehab center yesterday and since being home has been having increasing weakness. She reports having syncopal episode today. No headache chest pain difficulty breathing. No melena or hematochezia. No fever. Home Medications Medication Instructions Recorded Confirmed Type levothyroxine 50 mcg tablet 50 mcg PO DAILYBB 04/14/18 09/25/23 History (Synthroid) loratadine 10 mg tablet (Claritin) 10 mg PO HS PRN Allergy Symptoms 03/25/19 09/25/23 History magnesium oxide 400 mg PO QAM 03/25/19 09/25/23 History atorvastatin 20 mg tablet 20 mg PO HS 11/22/19 09/25/23 History sumatriptan succinate 100 mg tablet 100 mg PO DAILY PRN Headache 11/22/19 09/25/23 History metformin 500 mg tablet 500 mg PO QAM 02/24/21 09/25/23 History riboflavin (vitamin B2) 400 mg 400 mg PO QAM 02/24/21 09/25/23 History tablet fluticasone propionate 50 2 spray intranasal DAILY 07/13/21 09/25/23 History mcg/actuation nasal spray,suspension (Flonase Allergy Relief) aspirin 81 mg chewable tablet 81 mg PO DAILY 05/12/22 09/25/23 History (Aspirin Childrens) cholecalciferol (vitamin D3) 1,250 1,250 mcg PO WK 12/16/22 09/25/23 History mcg (50,000 unit) capsule omeprazole 40 mg capsule,delayed 40 mg PO HS 12/16/22 09/25/23 History release lisinopril 20 mg tablet 20 mg PO QAM 01/15/23 09/25/23 History acetaminophen 500 mg/15 mL oral 100 mg PO Q4H PRN PAIN/FEVER 08/06/23 09/25/23 History liquid amlodipine 5 mg tablet 5 mg PO DAILY 08/06/23 09/25/23 History cyanocobalamin (vitamin B-12) 1,000 mcg PO DAILY 08/06/23 09/25/23 History 1,000 mcg tablet (Vitamin B-12) diclofenac sodium 1 % topical gel 2 g topical TID PRN Pain 08/06/23 09/25/23 History iron,carbonyl 65 mg-vitamin C 125 1 tab PO DAILY 08/06/23 09/25/23 History mg tablet,delayed release (Vitron-C) methenamine hippurate 1 gram tablet 1 g PO AMHS 08/06/23 09/25/23 History clozapine 100 mg tablet 100 mg PO HS 09/25/23 09/25/23 History docusate sodium 100 mg capsule 100 mg PO BID 09/25/23 09/25/23 History duloxetine 60 mg capsule,delayed 60 mg PO DAILY 09/25/23 09/25/23 History release sprinkle gabapentin 100 mg capsule See Rx Instructions .Route .COMPLEX 09/25/23 09/25/23 History magnesium hydroxide 400 mg/5 mL 400 mg PO DAILY PRN Constipation 09/25/23 09/25/23 History oral suspension metoprolol succinate 50 mg 50 mg PO DAILY 09/25/23 09/25/23 History tablet,extended release 24 hr polyethylene glycol 3350 17 17 g PO DAILY PRN Constipation 09/25/23 09/25/23 History gram/dose oral powder (Miralax) psyllium husk 3.4 gram/5.4 gram 1 tbsp PO TID 09/25/23 09/25/23 History oral powder (Metamucil) Allergies Allergy/AdvReac Type Severity Reaction Status Date / Time Penicillins Allergy Intermediate Hives Verified 09/25/23 18:19 pollen extracts Allergy Intermediate seasonal Verified 09/25/23 18:19 allergy Cephalosporins AdvReac Intermediate Hallucinations/GI Verified 09/25/23 18:19 UPSET/ CONFUSION cyclobenzaprine AdvReac Intermediate neuro Verified 09/25/23 18:19 [From Flexeril] complications rizatriptan [From Maxalt] AdvReac Intermediate VERTIGO Verified 09/25/23 18:19 Past Med/Surg History Medical History Schizophrenia Volume overload Weak cough Severe sepsis Aspiration pneumonia Weakness Constipation Bacteremia Acute UTI (urinary tract infection) Generalized weakness AMS (altered mental status) Unresponsive Obtunded COVID-19 Hyponatremia Nausea Dehydration Dizziness Neuropathy Headache Vertigo GERD (gastroesophageal reflux disease) Well controlled with medication Hypothyroidism Anxiety Migraine Hypertension Neuropathy DM2 (diabetes mellitus, type 2) HLD (hyperlipidemia) Somatization disorder Surgical History S/P foot surgery, right X2 S/P foot surgery, left X2 History of colonoscopy History of tooth extraction WISDOM TEETH History of tonsillectomy H/O bilateral cataract extraction History of craniotomy 1969, IN [place] D/T HEADACHE---FOLLOWS W DR. MICHAEL History of cataract surgery H/O cystoscopy H/O foot surgery H/O brain surgery "abt 1970 R parietal exploration for benign lesion" Family History Grandmother Family history of diabetes mellitus PATERNAL Family/Other Family history of diabetes mellitus UNCLE Father Parkinson disease Mother CHF (congestive heart failure) Social History Smoking Status: Never smoker Second Hand Exposure: Yes (FATHER SMOKED); Do You Dip or Chew Tobacco: No; Hx Alcohol Use: No Hx Substance Use: No Preferred Language: Ivorian Communication Ability: Unable Assistant Sales Manager Required: No Beliefs That Will Affect Care: None marital status: Single Current Living Situation: Alone Current Living Situation Comment: Has an agency that comes 4-8 m-f as well as a friend 9-1 m-f How many Children do You have: 0 Other Information That Helps Us Care for You: No Feels Safe at Home: Yes Safety Concerns: Feels Safe At This Time Assistive Devices: Glasses and Walker Physical Exam Vital Signs Vital Signs - 24 hr 09/25/23 13:54 09/25/23 14:29 09/25/23 14:30 Temperature 36.4 C L Temperature Source Temporal Artery Scan Pulse Rate 56 L 52 L 52 L Pulse Rate [Apical] Pulse Rate from SpO2 Sensor 52 L 52 L Respiratory Rate 18 17 19 Respiratory Effort / Characteristics Respiratory Depth Normal Respiratory Pattern Blood Pressure 98/60 L Blood Pressure [Left Arm] Blood Pressure Mean 72 Blood Pressure Mean [Left Arm] Blood Pressure Position [Left Arm] Pulse Oximetry 100 98 98 Oxygen Delivery Method Room Air Room Air Room Air Sepsis Recent Fever Within 48 Hours No Sepsis New/Unexplained Change in Mental Status No Sepsis Action Taken by Nursing No Action Required 09/25/23 14:56 09/25/23 15:00 09/25/23 15:08 Temperature Temperature Source Pulse Rate 53 L 54 L 52 L Pulse Rate [Apical] Pulse Rate from SpO2 Sensor 54 L Respiratory Rate 16 17 Respiratory Effort / Characteristics Respiratory Depth Respiratory Pattern Blood Pressure 120/56 L 126/66 Blood Pressure [Left Arm] Blood Pressure Mean 77 86 Blood Pressure Mean [Left Arm] Blood Pressure Position [Left Arm] Pulse Oximetry 98 99 Oxygen Delivery Method Room Air Room Air Sepsis Recent Fever Within 48 Hours Sepsis New/Unexplained Change in Mental Status Sepsis Action Taken by Nursing 09/25/23 16:07 09/25/23 17:00 Temperature Temperature Source Pulse Rate Pulse Rate [Apical] 54 L 57 L Pulse Rate from SpO2 Sensor Respiratory Rate 18 18 Respiratory Effort / Characteristics Non-Labored Spontaneous Non-Labored Spontaneous Respiratory Depth Normal Normal Respiratory Pattern Regular Regular Blood Pressure Blood Pressure [Left Arm] 129/71 127/70 Blood Pressure Mean Blood Pressure Mean [Left Arm] 90 89 Blood Pressure Position [Left Arm] Lying Lying Pulse Oximetry 100 99 Oxygen Delivery Method Room Air Room Air Sepsis Recent Fever Within 48 Hours Sepsis New/Unexplained Change in Mental Status Sepsis Action Taken by Nursing Physical Exam GENERAL: oriented to person, place, and time. appears well-developed and well- nourished. HENT: Exam performed. - Head: Normocephalic and atraumatic. EYES: Conjunctivae and EOM are normal. Right eye exhibits no discharge. Left eye exhibits no discharge. No scleral icterus. NECK: Normal range of motion. Neck supple. No JVD present. CV: Normal rate, regular rhythm, normal heart sounds and intact distal pulses. There is no peripheral edema. Palpable radial pulses bue. PULM/CHEST: Effort normal and breath sounds normal. No respiratory distress. No stridor. no wheezes. no rales. ABD: The abdomen is soft. There is no tenderness. NEURO: Motor and sensation grossly intact. SKIN: Skin is warm and dry. He is not diaphoretic. PSYCH: normal mood and affect. Behavior is normal. Judgment and thought content normal. Course Course 1454: The patient was evaluated in room A1. A complete history and physical exam was performed Cardiac monitoring: An order was placed for continuous cardiac monitoring. The monitor shows a rate of 50 with sinus rhythm interpreted by ga 1700: Vital signs stable. Labs show sodium 129, otherwise labs are unremarkable. Imaging is unremarkable. Patient be evaluated for admission by the [facility] team. Administered Medications Atorvastatin Calcium (Atorvastatin 20 Mg Tab) 20 mg PO HS JAMEL Stop: 10/25/23 20:59 Last Admin: 09/25/23 21:44 Dose: 20 mg Documented By: JENNIFER Sodium Chloride (Nss) 1,000 mls @ 100 mls/hr IV .Q10H JAMEL Stop: 10/25/23 20:44 Last Admin: 09/25/23 21:26 Dose: 100 mls/hr Documented By: JENNIFER Insulin Aspart (Insulin Aspart Per Unit Charge) 0 units SC ACHS JAMEL Stop: 10/25/23 20:59 Last Admin: 09/25/23 21:26 Dose: Not Given Documented By: JENNIFER Methenamine Hippurate (Methenamine Hippurate 1 Gm Tab) 1 gm PO AMHS JAMEL Stop: 09/30/23 20:59 Last Admin: 09/25/23 21:44 Dose: 1 gm Documented By: JENNIFER Pantoprazole Sodium (Pantoprazole 40 Mg Tab) 40 mg PO HS [facility] Stop: 10/25/23 20:59 Last Admin: 09/25/23 21:44 Dose: 40 mg Documented By: JENNIFER Medical Decision Making Medical Records Attestation: I reviewed the patient's medical records. External medical records reviewed. Patient was admitted from August 06 to September 14, 2023. During that admission the patient was intubated due to low oxygen saturations. Patient was extubated and then was treated for complicated UTI and candidal esophagitis. Patient was treated for ongoing bowel regimen for ongoing constipation and then [facility] Laboratory Data Attestation: I reviewed the patient's lab results. 09/25/23 14:42 09/25/23 22:07 Lab Results 09/25/23 09/25/23 09/25/23 Range/Units 14:29 14:42 14:44 WBC 5.38 (4.8-10.8) K/ul RBC 3.54 L (4.20-5.40) M/uL Hgb 10.0 L (12.0-16.0) g/dl POC Hgb 9.9 L (12.0-16.0) g/dl Hct 29.6 L (37.0-47.0) % POC Hct 29 L (37-47) % MCV 83.6 (80.0-100.0) fL MCH 28.2 (25.0-34.0) pg MCHC 33.8 (32.0-36.0) g/dL RDW Std Deviation 45.6 (36.4-46.3) fL RDW Coeff of Cyn 15.0 H (11.5-14.5) % Plt Count 205 (130-400) K/uL MPV 10.7 (9.4-12.4) fL Immature Gran % (Auto) 0.2 % Neut % (Auto) 51.3 % Lymph % (Auto) 36.6 % Major % (Auto) 11.0 % Eos % (Auto) 0.2 % Baso % (Auto) 0.7 % Neut # (Auto) 2.76 (1.40-6.50) K/uL Lymph # (Auto) 1.97 (1.20-3.40) K/uL Major # (Auto) 0.59 (0.11-0.59) K/uL Eos # (Auto) 0.01 (0.00-0.50) K/uL Baso # (Auto) 0.04 (0.00-0.20) K/uL Immature Gran # (Auto) 0.01 (0.01-0.20) K/uL PT 11.2 (9.0-12.0) Seconds INR 1.0 (0.9-1.1) APTT 30 (21-31) Seconds PTT Ratio 1.1 VBG pH (7.36-7.41) VBG pCO2 (38-50) mmHg VBG pO2 mmHg VBG HCO3 mmol/L VBG O2 Saturation % VBG Base Excess mEq/L POC Sodium 129 L (135-144) mmol/L Sodium 129 L (136-145) mmol/L POC Potassium 3.6 (3.3-5.0) mmol/L Potassium 3.6 (3.5-5.1) mmol/L POC Chloride 94 L (101-112) mmol/L Chloride 97 L (98-107) mmol/L Carbon Dioxide 24 (21-32) mmol/L POC Total CO2 23 L (24-31) mmol/L Anion Gap 8 (3-11) POC Anion Gap 16.0 (16-25) mmol/L POC BUN 12 (7-18) mg/dl BUN 14 (6-23) mg/dl Creatinine 0.41 L (0.6-1.2) mg/dl POC Creatinine 0.4 L (0.6-1.3) mg/dl Est Cr Clr Drug Dosing 108.3 ml/min Est GFR ( Amer) 118.0 ml/min Est GFR (Non-Af Amer) 101.8 ml/min BUN/Creatinine Ratio 34.1 H (10-20) Glucose 115 H (70-99(Fasting)) mg/dl POC Glucose 133 H (70-99) mg/dl POC Glucose (other) 116 H (70-99) mg/dl Lactate (0.4-2.0) mmol/L Calcium 9.1 (8.6-10.3) mg/dl POC Ioniz Calcium Keeley 1.18 (1.12-1.32) mmol/l Magnesium (1.7-2.4) mg/dl Total Bilirubin 0.3 (0.2-1.0) mg/dl AST 13 (13-39) U/L ALT 10 (7-52) U/L Alkaline Phosphatase 60 (34-104) U/L Ammonia (18-72) umol/L Troponin I High Sens (0-14) pg/ml Total Protein 5.6 L (6.0-8.3) gm/dl Albumin 3.7 (3.4-5.0) gm/dl Globulin 1.9 L (2.5-4.0) gm/dl Albumin/Globulin Ratio 1.9 (0.9-2) Procalcitonin (0-0.5) ng/ml Urine Color Urine Appearance (Clear) Urine pH (4.5-7.5) Ur Specific Sherwood (1.000-1.030) Urine Protein (Negative) Urine Glucose (UA) (Negative) Urine Ketones (Negative) Urine Blood (Negative) Urine Nitrite (Negative) Urine Bilirubin (Negative) Urine Urobilinogen (Negative) Ur Leukocyte Esterase (Negative) SARS-CoV-2 (PCR) (Negative) Influenza Type A (PCR) (Neg) Influenza Type B (PCR) (Neg) RSV (RT-PCR) (Neg) 09/25/23 09/25/23 09/25/23 Range/Units 14:53 15:28 17:09 WBC (4.8-10.8) K/ul RBC (4.20-5.40) M/uL Hgb (12.0-16.0) g/dl POC Hgb (12.0-16.0) g/dl Hct (37.0-47.0) % POC Hct (37-47) % MCV (80.0-100.0) fL MCH (25.0-34.0) pg MCHC (32.0-36.0) g/dL RDW Std Deviation (36.4-46.3) fL RDW Coeff of Cyn (11.5-14.5) % Plt Count (130-400) K/uL MPV (9.4-12.4) fL Immature Gran % (Auto) % Neut % (Auto) % Lymph % (Auto) % Major % (Auto) % Eos % (Auto) % Baso % (Auto) % Neut # (Auto) (1.40-6.50) K/uL Lymph # (Auto) (1.20-3.40) K/uL Major # (Auto) (0.11-0.59) K/uL Eos # (Auto) (0.00-0.50) K/uL Baso # (Auto) (0.00-0.20) K/uL Immature Gran # (Auto) (0.01-0.20) K/uL PT (9.0-12.0) Seconds INR (0.9-1.1) APTT (21-31) Seconds PTT Ratio VBG pH 7.43 H (7.36-7.41) VBG pCO2 38 (38-50) mmHg VBG pO2 109 mmHg VBG HCO3 25 mmol/L VBG O2 Saturation 98.0 % VBG Base Excess 1.0 mEq/L POC Sodium (135-144) mmol/L Sodium (136-145) mmol/L POC Potassium (3.3-5.0) mmol/L Potassium (3.5-5.1) mmol/L POC Chloride (101-112) mmol/L Chloride (98-107) mmol/L Carbon Dioxide (21-32) mmol/L POC Total CO2 (24-31) mmol/L Anion Gap (3-11) POC Anion Gap (16-25) mmol/L POC BUN (7-18) mg/dl BUN (6-23) mg/dl Creatinine (0.6-1.2) mg/dl POC Creatinine (0.6-1.3) mg/dl Est Cr Clr Drug Dosing ml/min Est GFR ( Amer) ml/min Est GFR (Non-Af Amer) ml/min BUN/Creatinine Ratio (10-20) Glucose (70-99(Fasting)) mg/dl POC Glucose (70-99) mg/dl POC Glucose (other) (70-99) mg/dl Lactate 2.0 (0.4-2.0) mmol/L Calcium (8.6-10.3) mg/dl POC Ioniz Calcium Keeley (1.12-1.32) mmol/l Magnesium 1.8 (1.7-2.4) mg/dl Total Bilirubin (0.2-1.0) mg/dl AST (13-39) U/L ALT (7-52) U/L Alkaline Phosphatase (34-104) U/L Ammonia 20.0 (18-72) umol/L Troponin I High Sens 6.0 (0-14) pg/ml Total Protein (6.0-8.3) gm/dl Albumin (3.4-5.0) gm/dl Globulin (2.5-4.0) gm/dl Albumin/Globulin Ratio (0.9-2) Procalcitonin 0.03 (0-0.5) ng/ml Urine Color Yellow Urine Appearance Clear (Clear) Urine pH 6.5 (4.5-7.5) Ur Specific Sherwood 1.007 (1.000-1.030) Urine Protein Negative (Negative) Urine Glucose (UA) Negative (Negative) Urine Ketones Negative (Negative) Urine Blood Negative (Negative) Urine Nitrite Negative (Negative) Urine Bilirubin Negative (Negative) Urine Urobilinogen Negative (Negative) Ur Leukocyte Esterase Negative (Negative) SARS-CoV-2 (PCR) NEGATIVE (Negative) Influenza Type A (PCR) Negative (Neg) Influenza Type B (PCR) Negative (Neg) RSV (RT-PCR) Negative (Neg) Imaging Data Radiologist's Impression: Chest X-Ray 09/25/23 14:36 SINGLE VIEW CHEST CLINICAL HISTORY: Atypical chest pain FINDINGS: An AP, portable, upright chest radiograph is compared to study dated 08/29/2023. The heart is mildly enlarged noting atherosclerotic calcification of the thoracic aorta. The pulmonary vasculature is noncongested. Chronic interstitial thickening is similar to previous. There is mild bibasilar scarring/atelectasis. The lungs and pleural spaces are otherwise clear. No pneumothorax is seen. The skeletal structures are osteopenic. The bony thorax is grossly intact. IMPRESSION: Cardiomegaly with no active disease in the chest. ACT 112: Negative or not required by law. Electronically signed by: Patel Qiu M.D. 09/25/2023 3:[address] 09/25/23 15:03 CT OF THE HEAD WITHOUT CONTRAST CLINICAL HISTORY: Altered mental status. COMPARISON STUDY: Head CT August 06, 2023. CT DOSE: 625.8 mGy.cm TECHNIQUE: Helical axial images of the head were obtained without IV contrast. Automated exposure control was utilized for the study. A dose lowering technique was utilized adhering to the principles of ALARA. FINDINGS: No acute intracranial hemorrhage, midline shift or mass effect is present. The ventricular system is unremarkable. The basal cisterns are patent. No extra-axial collections are present. There are no findings to suggest acute dural sinus thrombosis or acute territorial infarct. No calvarial fracture is identified. Right posterior calvarial defect is chronic. IMPRESSION: No acute intracranial findings. No change in appearance of the brain. ACT 112: Negative or not required by law. Electronically signed by: Lukas Law M.D. 09/25/2023 3:52 PM KUB X-Ray 09/25/23 15:03 XR KUB/Abdomen 1 view CLINICAL HISTORY: ams TECHNIQUE: 1 view of the abdomen was obtained. Comparison: Comparison is made to abdomen radiograph 08/26/2023 FINDINGS: Lung bases are unremarkable. Degenerative changes are seen in the visualized skeleton. Left pelvic calcification is stable. The bowel gas pattern is nonobstructive. A moderate amount of stool is noted within the large bowel. IMPRESSION: Nonobstructive bowel gas pattern. ACT 112: Negative or not required by law. Electronically signed by: Trevin Yeboah M.D. 09/25/2023 3:23 PM ECG Data Attestation: I personally reviewed and interpreted this ECG as follows: Rate (beats per minute): 51 Rhythm: + sinus bradycardia ECG Intervals/blocks: + Normal QRS, + Normal SC and + Normal QT-c ECG ST segments: + Normal ST segments MDM Narrative 1454: The patient was evaluated in room A1. A complete history and physical exam was performed Cardiac monitoring: An order was placed for continuous cardiac monitoring. The monitor shows a rate of 50 with sinus rhythm interpreted by me 1700: Vital signs stable. Labs show sodium 129, otherwise labs are unremarkable. Imaging is unremarkable. Patient be evaluated for admission by the [facility] team. Impression & Plan Syncope Discharge Plan Visit Data Chief Complaint: Weakness ED Provider: Rudy Nolan Discharge Problem: Syncope Patient Disposition: Admitted As Inpatient Discharge Instructions Interventions: ED Discharge Assessment Last Done: 09/25/23 20:15
--- OUTSIDE RECORDS SUMMARY | 2023-09-26 02:45 | External Medical Summary | Summary of Care ---
Author Name Unknown Organization [facility] Address [address] [place] [address] Phone [phone] Care Team Providers Care Regular Senior Care Provider Name Role Phone Raymond Vann DO Primary Care Provider [phone] Reason for Visit * Reason Onset Date Comments FYI 09/24/2023 LGI Encounter Details Date Type Department Care Team (Late st Contact Info) Description 09/24/2023 Telephone Family Practice [facility] [place] 200 [facility] [place] [address] Raymond Vann DO 200 [facility] [place] [address] FYI (LGI) Allergies Active Allergy Reactions Criticality Noted Date Comments Cephalosporins Abdominal pain High 07/02/2000 gi upset- confusion Other reaction(s): Hallucinations Cyclobenzaprine Neuro complications (Please comment) High 12/11/2018 Other reaction(s): neuro complications Rizatriptan Benzoate 09/19/2016 vertigo Penicillins High 05/22/2019 Other reaction(s): Hives Pollen 11/07/2014 Pollen Extract High 05/22/2019 Other reaction(s): seasonal allergy Rizatriptan 05/22/2019 Other reaction(s): Unknown documented as of this encounter (statuses as of 09/24/2023) Medications Medication Sig Dispensed Refills Start Date [...] Bottle 3 10/12/2016 Active ONETOUCH ULTRASOFT LANCETS [facility] [place] Use to check [...] OTHER MEDS 90 Tablet 2 11/30/2022 Active Lisinopril 20 MG Oral Tablet (Prinivil) Take 1 Tablet by mouth in the morning. 90 Tablet 3 01/09/2023 Active Riboflavin 400 MG Oral Tablet TAKE [...] 3 04/13/2023 Active Vitamin D3 1.25 MG (42871 UT) Oral Capsule TAKE 1 CAP BY [...] OR CHEW.. 90 Capsule 1 05/16/2023 Active amLODIPine Besylate 5 MG Oral Tablet (Norvasc) Take 1 Tablet by mouth in the morning. 0 Active Methenamine Hippurate 1 GM Oral Tablet (Hiprex) Take 1 Tablet by mouth in the morning and 1 Tablet before bedtime. 0 Active Diclofenac Sodium 50 MG Oral Tablet Delayed Release (Voltaren)Indication s:Chronic pain syndrome Take 1 Tablet by mouth in the morning and 1 Tablet before bedtime. Take with food.. 60 Tablet 5 06/18/2023 Active metFORMIN HCl 500 MG Oral Tablet (Glucophage) TAKE 1 TABLET BY MOUTH EVERY DAY WITH BREAKFAST 90 Tablet 1 07/01/2023 Active Atorvastatin Calcium 20 MG Oral Tablet (Lipitor)Indications :Hyperlipidemia, unspecified hyperlipidemia type TAKE 1 TABLET BY MOUTH EVERY DAY 90 Tablet 0 07/08/2023 Active documented as of this encounter (statuses as of 09/24/2023) Active Problems Problem Noted Date Diagnosed Date [...] as of this encounter (statuses as of 09/24/2023) Resolved Problems Problem Noted Date Diagnosed Date [...] as of this encounter (statuses as of 09/24/2023) Immunizations Name Administration Dates Next Due COVID-19 mRNA, LNP-s, No Pre serve, 2-Dose Series (Moderna) 11/11/2020,10/14/2020 H1N1 2009 Influenza, IM 07/14/2009 Pneumococcal Conjugate Vacc, 13 Valent (Prevnar) 04/01/2015 Pneumococcal Polysaccharide PPV23 (Pneumovax) 04/21/2016,04/20/2008,04/19/2005 Season Influenza, Quad, PF, Adjuvanted, 65+ Yrs, IM (FLUAD) 04/07/2020 Seasonal Influenza Virus Vac cine, Unspecified Formulation 03/28/2021,04/07/2020,06/05/2019,03/03,05/02/2017,04/21/2016,04/01/20 15,05/11/2014,03/23/2014,06/11/2013,0 03/19/2012,04/26/2011,04/13/2010,04/07,04/20/2008,05/06/2007, 6,04/19/2005 Seasonal Influenza, PF, 6 M & above, IM , (FluLaval or Fluzone) 03/27/2023,03/28/2018,05/02/2017 Seasonal Influenza, Quadriva lent Hd (Fluzone Hd) 04/19/2022,03/28/2021 Seasonal Influenza, Quadriva lent, No Preserve, IM 04/21/2016,04/01/2015 Seasonal Influenza, Split, I IV3, With Preserve, Inj 05/11/2014,03/23/2014,06/11/2013,03/02,04/26/2011,04/13/2010,04/07/20 09,04/20/2008,05/06/2007,05/29/2006,1 04/07/2010 Seasonal Influenza, Trivalen t, Adjuvanted, 65+ [...] encounter Miscellaneous Notes * Telephone Encounter - Stephane Albright LPN - 09/24/2023 9:55 AM EDT Through advanced analysis/trending of this patients Complete Blood Counts (CBC), they have been identified to have a positive LGI flag and at a higher risk for hidden bleeding in the intestine dueto several conditions such as ulcers, colon polyps, harmless conditions, or even colon cancer. This advanced analysis estimates the patient's risk of these kinds of conditions. It only indicatesthat the patient's chances to have one of these conditions are higher compared to most people. It does not indicate that the patient has any of these conditions but is highly recommended the patient have a colonoscopy for further evaluation. Patients with a positive LGI flag have a 40% chance (six times more likely) of having a serious GI pathology finding versus unflagged patients. I have contacted the patient regarding scheduling a colonoscopy. Colonoscopy outreach: Outreach not indicated per chart review-Admitted Thank you. Stephane Albright LPN documented in this encounter Plan of Treatment Upcoming Encounters Date Type Department Care Team (Late st Contact Info) Description 09/26/2023 11:00 AM EDT Office Visit [facility] [place] [address] [place] [address] Raymond Vann, DO [address] [place] [address] 10/29/2023 10:20 AM EDT Office Visit Family Practice [place] [address] [place], [place] [address] Raymond Vann DO [address] [place] [address] Health Maintenance Due Date Last Done Comments Fecal Occult Blood Test 02/26/1999 02/26/1998 Sigmoidoscopy 02/03/2007 02/03/2002, 12/31, 04/10/2001, Additional history exists Colonoscopy 12/25/2012 12/25/2002 Zoster Vaccines (2 of [...] 08/09/2022, 0 03/25/2021, 09/03/2019, Additional history exists Albumin/Creatinine Ratio 04/20/2024 023, 01/31/2022, 06/22/2020, Additional history exists GFR 09/23/2024 09/24/2023, 08/31, 09/15/2023, Additional history exists Lipid Panel 07/27/2027 07/27/2022, 08/02, 06/22/2020, Additional history exists DTaP,Tdap,and Td Vaccines (3 - Td or Tdap) 10/31/2028 10/31/2018, 04/20/2008 Pneumococcal Vaccine: 65+ Years Completed 04/21/2016, 04/01/2015, 04/20/2008, Additional history exists Influenza Vaccine (FLU shot) Completed , 04/19/2022, 03/28/2021, Additional history exists GARDASIL-HPV IMMUNIZATION SERIES Aged Out No longer eligible based on patient's age to complete this topic Hepatitis B Aged Out No longer eligi ble based on patient's age to complete this topic MENINGOCOCCAL (MENACTRA/MENVEO) Aged Out No longer eligible based on patient's age to complete this topic documented as of this encounter Medical Devices Not on filedocumented as of this encounter Advance Directives Latest Code Status on File Code Status Date Activated Date Inactivated Comments Full Code 02/12/2014 7:49 AM 02/12/2014 1:34 PM This order reflects the patients wishes and were consensually agreed upon. Code Status History Code Status Date Activated Date Inactivated Comments None 04/15/2004 9:23 AM 04/15/2004 9:23 AM Care Teams Regular Senior Care Provider Relationship Specialty Start Date End Date Raymond Vann DO [address] [place], [place] [address] PCP - General Family Medicine 12/20/16 documented as of this encounter
--- OUTSIDE RECORDS SUMMARY | 2023-09-26 02:46 | External Medical Summary | Summary of Care ---
Author Name Unknown Organization [facility] Address [address] [place] [address] Phone [phone] Care Team Providers Care Special Procedure Technologist Name Role Phone Raymond Vann DO Primary Care Provider [phone] Reason for Visit * Reason Onset Date Comments FYI 09/24/2023 LGI Encounter Details Date Type Department Care Team (Late st Contact Info) Description 09/24/2023 Telephone Family Practice [facility] [place] 200 [facility] [place] [address] [facility] [address] FYI ([facility] Allergies Active Allergy Reactions Criticality [...] Bottle 3 10/12/2016 Active ONETOUCH ULTRASOFT LANCETS [facility] [place] [place] Use to check blood sugar daily as [...] 3 04/13/2023 Active Vitamin D3 1.25 MG (90171 UT) Oral Capsule TAKE 1 CAP BY [...] Description 09/26/2023 11:00 AM EDT Office Visit [facility] [place] [address] [place] [address] [address] Raymond Vann, DO [address] [place] [address] 10/29/2023 10:20 AM EDT Office Visit Family Practice [place] [address] [place], [place] [address] Raymond Vann DO [address] [place], [place] [address] Health Maintenance Due Date Last Done Comments [...] 9:23 AM 04/15/2004 9:23 AM Care Teams Special Procedure Technologist Relationship Specialty Start Date End Date Raymond Vann DO [address] [place], [place] [address] PCP - General Family Medicine 12/20/16 documented as of this encounter
--- OUTSIDE RECORDS SUMMARY | 2023-09-26 02:46 | External Medical Summary ---
Author Name Unknown Address Unknown Organization [id number] [place] [address] [place] [address] Laboratory Report Ordering Provider Test Date Status CECIL BACK 09/15/2023 07:28:23 Final Observation Date Value Abnormality Reference (Units ) Status BUN 09/15/2023 07:28:23 13 6-20 (mg/dL) Final Creatinine 09/15/2023 07:28:23 0.6 0.5-1.0 (mg/dL) Final Glomerular filtration rate/1.73 sq M.predicted [Volume Rate/Area] in Serum, Plasma or Blood by Creatinine-based formula (CKD-EPI) 09/15/2023 07:28:23 >90 >=60 (mL/min) Final eGFR is calculated based on the CKD-EPI 2020 equation SODIUM 09/15/2023 07:28:23 141 135-146 (m mol/L) Final Potassium 09/15/2023 07:28:23 3.9 3.5-5.1 (m mol/L) Final Cl 09/15/2023 07:28:23 107 98-107 (mm ol/L) Final CO2 09/15/2023 07:28:23 28 22-32 (mmo l/L) Final Anion gap 09/15/2023 07:28:23 6 Below low normal 7-1 5 (mmol/L) Final Glucose 09/15/2023 07:28:23 95 70-120 (mg /dL) Final Calcium 09/15/2023 07:28:23 9.2 8.4-10.2 ( mg/dL) Final Performing Location [facility] [place] [address] [place] [address]
--- OUTSIDE RECORDS SUMMARY | 2023-09-26 02:46 | External Medical Summary ---
Author Name Unknown Address Unknown Organization [id number] [place] [address] Laboratory Report Ordering Provider Test Date Status HY,DEPAMPHILIS 09/24/2023 05:35:00 Final Observation Date Value Abnormality Reference (Units ) Status SYNC LEUKOCYTES IN BLOOD BY AUTOMATED COUNT 09/24/2023 05:35:00 4.03 4.00-10.80 (K/uL) Final Segs 09/24/2023 05:35:00 35.0 Below low normal 40.0-75.0 (%) Final Lymphs % 09/24/2023 05:35:00 52.4 Above high normal 18.0-42.0 (%) Final Monos 09/24/2023 05:35:00 11.9 Above high normal 1.0-11.0 (%) Final Eosinophils 09/24/2023 05:35:00 0.2 0.0-6.0 (%) Final Basos 09/24/2023 05:35:00 0.5 0.0-2.0 (%) Final Absolute Segs 09/24/2023 05:35:00 1.41 Below low normal 1.80-7.70 (K/uL) Final Lymphs, absolute 09/24/2023 05:35:00 2.11 1.00-4.80 (K/ul) Final Monos, Abs 09/24/2023 05:35:00 0.48 0.00-1.10 (K/uL) Final Eos, Abs 09/24/2023 05:35:00 0.01 0.00-0.70 (K/uL) Final Basos, Abs 09/24/2023 05:35:00 0.02 0.00-0.20 (K/uL) Final Performing Location [facility] [place] [address]
--- OUTSIDE RECORDS SUMMARY | 2023-09-26 02:46 | External Medical Summary ---
Author Name Unknown Address Unknown Organization [id number] [place] [address] [place] [address] Laboratory Report Ordering Provider Test Date Status CECIL BACK 09/15/2023 07:28:23 Final Observation Date Value Abnormality Reference (Units ) Status WBC, Total 09/15/2023 07:28:23 4.29 4.00-10.8 0 (K/uL) Final RBC 09/15/2023 07:28:23 3.63 3.85-5.15 (M/uL) Final Hemoglobin 09/15/2023 07:28:23 10.4 Below low normal 12 .0-15.3 (g/dL) Final HCT 09/15/2023 07:28:23 32.9 Below low normal 36. 0-45.2 (%) Final MCV 09/15/2023 07:28:23 90.6 81.5-97.5 (fL) Final MCH 09/15/2023 07:28:23 28.7 27.0-34.0 (pg) Final MCHC 09/15/2023 07:28:23 31.6 32.0-36.0 (g/dL) Final RDW 09/15/2023 07:28:23 15.6 11.5-15.5 (%) Final Platelets 09/15/2023 07:28:23 220 140-400 (K /uL) Final MPV 09/15/2023 07:28:23 10.6 6.6-11.1 ( fL) Final Performing Location [facility] [place] [address] [place] [address]
--- OUTSIDE RECORDS SUMMARY | 2023-09-26 02:46 | External Medical Summary | Summary of Care ---
Author Name Unknown Organization [facility] Address [address] [place] [address] Phone [phone] Care Team Providers Care Credit Interviewer Name Role Phone MannyRaymond torres Primary Care Provider [phone] Encounter Details Date Type Department Care Team (Late st Contact Info) Description 08/07/2023 Result Scan Unspecified Department <No scans attached> Allergies Active Allergy Reactions Criticality Noted Date Comments Cephalosporins Abdominal pain High 07/02/2000 gi upset- confusion Other reaction(s): Hallucinations Cyclobenzaprine Neuro complications (Please comment) High 12/11/2018 Other reaction(s): neuro complications Rizatriptan Benzoate 09/19/2016 vertigo Penicillins High 05/22/2019 Other reaction(s): Hives Pollen 11/07/2014 Pollen Extract High 05/22/2019 Other reaction(s): seasonal allergy Rizatriptan 05/22/2019 Other reaction(s): Unknown documented as of this encounter (statuses as of 08/08/2023) Medications Medication Sig Dispensed Refills Start Date [...] 3 04/13/2023 Active Vitamin D3 1.25 MG (18619 UT) Oral Capsule TAKE 1 CAP BY [...] as of this encounter (statuses as of 08/08/2023) Active Problems Problem Noted Date Diagnosed Date [...] as of this encounter (statuses as of 08/08/2023) Resolved Problems Problem Noted Date Diagnosed Date [...] as of this encounter (statuses as of 08/08/2023) Immunizations Name Administration Dates Next Due COVID-19 mRNA, LNP-s, No Pre serve, 2-Dose Series (Moderna) 11/11/2020,10/14/2020 H1N1 2009 Influenza, IM 07/14/2009 Pneumococcal Conjugate Vacc, 13 Valent (Prevnar) 04/01/2015 Pneumococcal Polysaccharide PPV23 (Pneumovax) 04/21/2016,04/20/2008 Season Influenza, Quad, PF, Adjuvanted, 65+ Yrs, [...] EDT Office Visit Family Practice [place] [address] [place] [address] Raymond Vann DO [address] [place] [address] Health Maintenance Due Date Last Done Comments [...] 023, 01/31/2022, 06/22/2020, Additional history exists GFR 06/09/2024 06/09/2023, 1208/2022, 12/27/2022, Additional history exists Lipid Panel 07/27/2027 07/27/2022, [...] Not on filedocumented as of this encounter Procedures Procedure Name Priority Date/Time Associated Diagnosis Comments PROCEDURE SCANNED RESULT 08/07/2023 documented in this encounter Results * PROCEDURE SCANNED RESULT (08/07/2023) 08/07/2023 No Physician Data Unknown SURGERY documented in this encounter Advance Directives Latest Code Status on File Code Status Date Activated Date Inactivated Comments Full Code 02/12/2014 7:49 AM 02/12/2014 1:34 PM This order reflects the patients wishes and were consensually agreed upon. Code Status History Code Status Date Activated Date Inactivated Comments None 04/15/2004 9:23 AM 04/15/2004 9:23 AM Care Teams Credit Interviewer Relationship Specialty Start Date End Date Raymond Vann DO [address] [facility] [place] [address] PCP - General Family Medicine 12/20/16 documented as of this encounter
--- OUTSIDE RECORDS SUMMARY | 2023-09-26 02:46 | External Medical Summary ---
Author Name Unknown Address Unknown Organization [id number] [place] [address] [place] [address] Laboratory Report Ordering Provider Test Date Status CECIL BACK 09/22/2023 08:01:28 Final Observation Date Value Abnormality Reference (Units ) Status SYNC LEUKOCYTES IN BLOOD BY AUTOMATED COUNT 09/22/2023 08:01:28 3.64 Below low normal 4.00-10.80 (K/uL) Final Segs 09/22/2023 08:01:28 34.1 Below low normal 40.0-75.0 (%) Final Lymphs % 09/22/2023 08:01:28 53.3 Above high normal 18.0-42.0 (%) Final Monos 09/22/2023 08:01:28 11.8 Above high normal 1.0-11.0 (%) Final Eosinophils 09/22/2023 08:01:28 0.0 0.0-6.0 (%) Final Basos 09/22/2023 08:01:28 0.8 0.0-2.0 (%) Final Absolute Segs 09/22/2023 08:01:28 1.24 Below low normal 1.80-7.70 (K/uL) Final Lymphs, absolute 09/22/2023 08:01:28 1.94 1.00-4.80 (K/ul) Final Monos, Abs 09/22/2023 08:01:28 0.43 0.00-1.10 (K/uL) Final Eos, Abs 09/22/2023 08:01:28 0.00 0.00-0.70 (K/uL) Final Basos, Abs 09/22/2023 08:01:28 0.03 0.00-0.20 (K/uL) Final Performing Location [facility] [place] [address] [place] [address]
--- OUTSIDE RECORDS SUMMARY | 2023-09-26 02:46 | External Medical Summary ---
Author Name Unknown Address Unknown Organization [id number] [place] [address] [place] [address] Laboratory Report Ordering Provider Test Date Status CECIL BACK 09/22/2023 08:01:28 Final Observation Date Value Abnormality Reference (Units ) Status WBC, Total 09/22/2023 08:01:28 3.64 Below low normal 4. 00-10.80 (K/uL) Final RBC 09/22/2023 08:01:28 3.74 3.85-5.15 (M/uL) Final Hemoglobin 09/22/2023 08:01:28 10.7 Below low normal 12 .0-15.3 (g/dL) Final HCT 09/22/2023 08:01:28 33.4 Below low normal 36. 0-45.2 (%) Final MCV 09/22/2023 08:01:28 89.3 81.5-97.5 (fL) Final MCH 09/22/2023 08:01:28 28.6 27.0-34.0 (pg) Final MCHC 09/22/2023 08:01:28 32.0 32.0-36.0 (g/dL) Final RDW 09/22/2023 08:01:28 15.4 11.5-15.5 (%) Final Platelets 09/22/2023 08:01:28 192 140-400 (K /uL) Final MPV 09/22/2023 08:01:28 11.4 6.6-11.1 ( fL) Final Performing Location [facility] [place] [address] [place] [address]
--- OUTSIDE RECORDS SUMMARY | 2023-09-26 02:46 | External Medical Summary ---
Author Name Unknown Address Unknown Organization K09:[facility] [place] [address] Laboratory Report Ordering Provider Test Date Status HY,DEPAMPHILIS 09/24/2023 05:35:00 Final Observation Date Value Abnormality Reference (Units ) Status BUN 09/24/2023 05:35:00 16 6-20 (mg/dL) Final Creatinine 09/24/2023 05:35:00 0.5 0.5-1.0 (mg/dL) Final Glomerular filtration rate/1.73 sq M.predicted [Volume Rate/Area] in Serum, Plasma or Blood by Creatinine-based formula (CKD-EPI) 09/24/2023 05:35:00 >90 >=60 (mL/min) Final eGFR is calculated based on the CKD-EPI 2020 equation Sodium 09/24/2023 05:35:00 140 135-146 (m mol/L) Final Potassium 09/24/2023 05:35:00 4.5 3.5-5.1 (m mol/L) Final Cl 09/24/2023 05:35:00 103 98-107 (mm ol/L) Final CO2 09/24/2023 05:35:00 27 22-32 (mmo l/L) Final Anion gap 09/24/2023 05:35:00 10 7-15 (mmol /L) Final Glucose 09/24/2023 05:35:00 99 70-120 (mg /dL) Final Calcium 09/24/2023 05:35:00 9.2 8.4-10.2 ( mg/dL) Final Performing Location [facility] [place] [address]
--- OUTSIDE RECORDS SUMMARY | 2023-09-26 02:46 | External Medical Summary | Summary of Care ---
Author Name Unknown Organization [facility] Address [address] [place] [address] Phone [phone] Care Team Providers Care Home Theater Specialist Name Role Phone JonatanRaymond coyne Primary Care Provider [phone] Encounter Details Date Type Department Care Team (Late st Contact Info) Description 09/20/2023 External Data Patient Risk Medial Allergies Active Allergy Reactions Criticality Noted Date Comments Cephalosporins Abdominal pain High 07/02/2000 gi upset- confusion Other reaction(s): Hallucinations Cyclobenzaprine Neuro complications (Please comment) High 12/11/2018 Other reaction(s): neuro complications Rizatriptan Benzoate 09/19/2016 vertigo Penicillins High 05/22/2019 Other reaction(s): Hives Pollen 11/07/2014 Pollen Extract High 05/22/2019 Other reaction(s): seasonal allergy Rizatriptan 05/22/2019 Other reaction(s): Unknown documented as of this encounter (statuses as of 2023) Medications Medication Sig Dispensed Refills Start Date [...] 3 04/13/2023 Active Vitamin D3 1.25 MG (55744 UT) Oral Capsule TAKE 1 CAP BY [...] as of this encounter (statuses as of 2023) Active Problems Problem Noted Date Diagnosed Date [...] must notify their healthcare provider of changes. Paolaal tunnel syndrome 01/21/2003 documented as of this encounter (statuses as of 2023) Resolved Problems Problem Noted Date Diagnosed Date [...] as of this encounter (statuses as of 2023) Immunizations Name Administration Dates Next Due COVID-19 [...] Family Practice [facility] [place] 200 [facility] [place] [address] Raymond Vann DO 200 [facility] [place] [address] Health Maintenance Due Date Last Done Comments [...] 023, 01/31/2022, 06/22/2020, Additional history exists GFR 09/14/2024 09/15/2023, 12/0 03/2023, 06/02/2023, Additional history exists Lipid Panel 07/27/2027 07/27/2022, [...] 9:23 AM 04/15/2004 9:23 AM Care Teams Home Theater Specialist Relationship Specialty Start Date End Date Raymond Vann DO [address] [place] [address] PCP - General Family Medicine 12/20/16 documented as of this encounter
--- OUTSIDE RECORDS SUMMARY | 2023-09-26 02:46 | External Medical Summary ---
Author Name Unknown Address Unknown Organization [facility] [address] [place] [address] Laboratory Report Ordering Provider Test Date Status CECIL BACK 09/22/2023 08:01:28 Final Observation Date Value Abnormality Reference (Units ) Status Nucleated erythrocytes/100 leukocytes [Ratio] in Blood by Automated count 09/22/2023 08:01:28 Final Performing Location [facility] [address] [place] [address]
--- OUTSIDE RECORDS SUMMARY | 2023-09-26 02:46 | External Medical Summary ---
Author Name Unknown Address Unknown Organization K09:[facility] [place] [address] Laboratory Report Ordering Provider Test Date Status HY,DEPAMPHILIS 09/24/2023 05:35:00 Final Observation Date Value Abnormality Reference (Units ) Status WBC, Total 09/24/2023 05:35:00 4.03 4.00-10.8 0 (K/uL) Final RBC 09/24/2023 05:35:00 3.84 3.85-5.15 (M/uL) Final Hemoglobin 09/24/2023 05:35:00 10.8 Below low normal 12 .0-15.3 (g/dL) Final HCT 09/24/2023 05:35:00 34.7 Below low normal 36. 0-45.2 (%) Final MCV 09/24/2023 05:35:00 90.4 81.5-97.5 (fL) Final MCH 09/24/2023 05:35:00 28.1 27.0-34.0 (pg) Final MCHC 09/24/2023 05:35:00 31.1 32.0-36.0 (g/dL) Final RDW 09/24/2023 05:35:00 15.6 11.5-15.5 (%) Final Platelets 09/24/2023 05:35:00 189 140-400 (K /uL) Final MPV 09/24/2023 05:35:00 10.9 6.6-11.1 ( fL) Final Performing Location [facility] [place] [address]
--- OUTSIDE RECORDS SUMMARY | 2023-09-26 02:46 | External Medical Summary ---
Author Name Unknown Address Unknown Organization [facility] [address] [place] [address] Laboratory Report Ordering Provider Test Date Status CECIL BACK 09/22/2023 08:01:28 Final Observation Date Value Abnormality Reference (Units ) Status BUN 09/22/2023 08:01:28 15 6-20 (mg/dL) Final Creatinine 09/22/2023 08:01:28 0.6 0.5-1.0 (mg/dL) Final Glomerular filtration rate/1.73 sq M.predicted [Volume Rate/Area] in Serum, Plasma or Blood by Creatinine-based formula (CKD-EPI) 09/22/2023 08:01:28 >90 >=60 (mL/min) Final eGFR is calculated based on the CKD-EPI 2020 equation Sodium 09/22/2023 08:01:28 141 135-146 (m mol/L) Final Potassium 09/22/2023 08:01:28 4.3 3.5-5.1 (m mol/L) Final Cl 09/22/2023 08:01:28 106 98-107 (mm ol/L) Final CO2 09/22/2023 08:01:28 27 22-32 (mmo l/L) Final Anion gap 09/22/2023 08:01:28 8 7-15 (mmol /L) Final Glucose 09/22/2023 08:01:28 98 70-120 (mg /dL) Final Calcium 09/22/2023 08:01:28 9.1 8.4-10.2 ( mg/dL) Final Performing Location [facility] [place] [address] [place] [address]
[2023-09-26 04:27] LABS: Basophils # (auto) 0.03 K/uL (0.00-0.20); Basophils % (auto) 0.7 %; Eosinophils # (auto) 0.01 K/uL (0.00-0.50); Eosinophils % (auto) 0.2 %; Hematocrit (blood only) 31.6 % (37.0-47.0); Hemoglobin 10.4 g/dl (12.0-16.0); Immature Granulocytes # (auto) 0.04 K/uL (0.01-0.20); Lymphocytes # (auto) 1.87 K/uL (1.20-3.40); Lymphocytes % (auto) 46.2 %; Mean Corpuscular Hemoglobin 28.4 pg (25.0-34.0); Mean Corpuscular Hgb Conc 32.9 g/dL (32.0-36.0); Mean Corpuscular Volume 86.3 fL (80.0-100.0); Mean Platelet Volume 10.9 fL (9.4-12.4); Monocytes % (auto) 9.9 %; Platelet Count 188 K/uL (130-400); RDW Coefficient of Variation 15.2 % (11.5-14.5); RDW Standard Deviation 47.7 fL (36.4-46.3); Red Blood Count 3.66 M/uL (4.20-5.40); White Blood Count 4.05 K/ul (4.8-10.8)
[2023-09-26 04:34] LABS: BUN Creatinine Ratio 30.6 (10-20); Calcium 8.9 mg/dl (8.6-10.3); Creatinine Clr Calc Pharmacy 123.4 ml/min; Est GFR (African American) 123.1 ml/min; Est GFR (Non-African American) 106.2 ml/min; Potassium 3.6 mmol/L (3.5-5.1)
[2023-09-26] MEDS: LEVOTHYROXINE SODIUM 50 MCG TABLET PO SCH (05:47)
--- NOTE | 2023-09-26 07:47 | Hospitalist Progress Note ---
Date of Service September 26, 2023 Assessment & Plan (1) Weakness: (2) Syncope: Plan: 73 yo female with history of diabetes type 2, hypertension, dyslipidemia, hypothyroidism, brain tumor s/p resection, schizophrenia, migraine, anemia, recurrent UTIs Presenting today after being discharged from [facility] yesterday for weakness and a syncopal episode while at the ER triage area. WEAKNESS, SYNCOPE LIKELY SECONDARY TO ORTHOSTATIC HYPOTENSION,POSSIBLE UNDERLYING SICK SINUS SYNDROME Patient recently admitted to [facility] for pneumonia, respiratory failure s/p intubation, UTI, delirium, stercoral colitis from constipation And was observed to have bradycardia, metoprolol reduced in dose. While at [facility], patient noted to have borderline blood pressure and bradycardia. Amlodipine, lisinopril, metoprolol subsequently discontinued She has been off these medications for a few days now. She was discharged from [facility] yesterday (day prior admission) She now presents with weakness and syncope in the setting of marginal blood pressure and sinus bradycardia in the 50s She has dry oral mucosa and has low sodium indicating dehydration. IV NSS - now stopped TSH wnl, cortisol level pending Had a recent echo done in August 2023 which showed preserved ejection fraction, no significant valvular abnormalities Held clozapine initially on admission as syncope, bradycardia listed as adverse effects - discussed w/ psychiatry - recommend to continue clozapine (pt was previously on higher dose and was discharged on 100) Cardiology consulted - considering PPM RULE OUT CVA Brain MRI - no acute CVA RULE OUT SEIZURE As a history of brain tumor, status post resection EEG Acute coronary syndrome unlikely as patient has negative troponin, no chest pain Hypoglycemia ruled out Infection unlikely as urinalysis, chest x-ray negative DIABETES TYPE 2 Insulin sliding scale Hold metformin HYPERTENSION - with marginal blood pressures on admission - now improved after IVF HYPOTHYROIDISM TSH 2.2 BRAIN TUMOR S/P RESECTION SCHIZOPHRENIA Re-Started on clozapine (was discharged on lower dose than her usual actually) during her last admission Initially held clozapine on admission as this may cause bradycardia, syncope - as above, discussed w/ psychiatry - recommend to continue clozapine (pt was previously on higher dose and was discharged on 100) Psychiatry consulted Migraine Chronic anemia Recurrent UTI DVT prophylaxis SCDs for now CODE STATUS Full code as per patient Disposition PT and OT May need to return to acute rehab Admission and Anticipated Discharge Date Admission Date: September 25, 2023 Subjective Pt seen in follow up of syncope, bradycardia Recently admitted - required ICU, intubated (prior to being hospitalized she was in ER and sent home-> then found unresponsive) -> after her prolonged hospitalization discharged to [facility] - and just returned home and felt weak - in ER had syncopal episode Currently laying in bed in NAD Says she feels well but does not remember what happened prior to coming to the hospital, does not remember much of being in rehab either No fever, chills, chest pain, or shortness of breath. no abd. pain, n/v Reports VILLASENOR, has hx of HAs Review of Systems Review of Systems: All systems reviewed & are unremarkable except as noted in Subjective Physical Exam Physical Exam: General- WD/WN F in NAD Head- atraumatic Eyes- PERRL, EOMI, anicteric Neck- supple, no JVD Lungs- clear to auscultation bilaterally, no rales/wheezes Heart- slightly bradycardic, regular Abdomen- normal bowel sounds, nondistended, soft, nontender Extremities- no pretibial edema, moves extremities Neuro- awake, alert, able to answer simple questions appropriately however has poor memory, speech fluent, no facial asymmetry, moves extremities Skin- warm & dry Results & Data Results & Data Vital Signs (Past 12 Hours) Vital Signs Temp Pulse Pulse Resp BP Pulse Ox O2 Del Method 09/26/23 07:07 36.8 C 50 L 16 148/74 H 99 Room Air 09/26/23 02:48 36.3 C L 52 L 18 135/68 100 Room Air 09/25/23 22:57 36.6 C 70 18 129/70 100 Room Air 09/25/23 22:00 50 L 09/25/23 20:45 36.5 C 56 L 18 167/63 H 100 Room Air 09/25/23 20:45 36.5 C 56 L 18 167/63 H 100 Room Air Laboratory Results 09/26/23 09/26/23 09/25/23 Range/Units 06:52 03:38 22:07 WBC 4.05 L (4.8-10.8) K/ul RBC 3.66 L (4.20-5.40) M/uL Hgb 10.4 L (12.0-16.0) g/dl POC Hgb (12.0-16.0) g/dl Hct 31.6 L (37.0-47.0) % POC Hct (37-47) % MCV 86.3 (80.0-100.0) fL MCH 28.4 (25.0-34.0) pg MCHC 32.9 (32.0-36.0) g/dL RDW Std Deviation 47.7 H (36.4-46.3) fL RDW Coeff of Cyn 15.2 H (11.5-14.5) % Plt Count 188 (130-400) K/uL MPV 10.9 (9.4-12.4) fL Immature Gran % (Auto) 1.0 % Neut % (Auto) 42.0 % Lymph % (Auto) 46.2 % Gillespie % (Auto) 9.9 % Eos % (Auto) 0.2 % Baso % (Auto) 0.7 % Neut # (Auto) 1.70 (1.40-6.50) K/uL Lymph # (Auto) 1.87 (1.20-3.40) K/uL Gillespie # (Auto) 0.40 (0.11-0.59) K/uL Eos # (Auto) 0.01 (0.00-0.50) K/uL Baso # (Auto) 0.03 (0.00-0.20) K/uL Immature Gran # (Auto) 0.04 (0.01-0.20) K/uL PT (9.0-12.0) Seconds INR (0.9-1.1) APTT (21-31) Seconds PTT Ratio VBG pH (7.36-7.41) VBG pCO2 (38-50) mmHg VBG pO2 mmHg VBG HCO3 mmol/L VBG O2 Saturation % VBG Base Excess mEq/L POC Sodium (135-144) mmol/L Sodium 140 139 D (136-145) mmol/L POC Potassium (3.3-5.0) mmol/L Potassium 3.6 3.7 (3.5-5.1) mmol/L POC Chloride (101-112) mmol/L Chloride 108 H 105 (98-107) mmol/L Carbon Dioxide 26 27 (21-32) mmol/L POC Total CO2 (24-31) mmol/L Anion Gap 6 7 (3-11) POC Anion Gap (16-25) mmol/L POC BUN (7-18) mg/dl BUN 11 12 (6-23) mg/dl Creatinine 0.36 L 0.37 L (0.6-1.2) mg/dl POC Creatinine (0.6-1.3) mg/dl Est Cr Clr Drug Dosing 123.4 120.0 ml/min Est GFR ( Amer) 123.1 122.0 ml/min Est GFR (Non-Af Amer) 106.2 105.3 ml/min BUN/Creatinine Ratio 30.6 H 32.4 H (10-20) Glucose 96 106 H (70-99(Fasting)) mg/dl POC Glucose 97 (70-99) mg/dl POC Glucose (other) (70-99) mg/dl Lactate (0.4-2.0) mmol/L Calcium 8.9 9.5 (8.6-10.3) mg/dl POC Ioniz Calcium Keeley (1.12-1.32) mmol/l Magnesium (1.7-2.4) mg/dl Total Bilirubin (0.2-1.0) mg/dl AST (13-39) U/L ALT (7-52) U/L Alkaline Phosphatase (34-104) U/L Ammonia (18-72) umol/L Troponin I High Sens (0-14) pg/ml Total Protein (6.0-8.3) gm/dl Albumin (3.4-5.0) gm/dl Globulin (2.5-4.0) gm/dl Albumin/Globulin Ratio (0.9-2) Procalcitonin (0-0.5) ng/ml TSH 2.231 (0.300-4.500) uIu/ml Urine Color Urine Appearance (Clear) Urine pH (4.5-7.5) Ur Specific [place] (1.000-1.030) Urine Protein (Negative) Urine Glucose (UA) (Negative) Urine Ketones (Negative) Urine Blood (Negative) Urine Nitrite (Negative) Urine Bilirubin (Negative) Urine Urobilinogen (Negative) Ur Leukocyte Esterase (Negative) SARS-CoV-2 (PCR) (Negative) Influenza Type A (PCR) (Neg) Influenza Type B (PCR) (Neg) RSV (RT-PCR) (Neg) 09/25/23 09/25/23 09/25/23 Range/Units 20:57 17:09 15:28 WBC (4.8-10.8) K/ul RBC (4.20-5.40) M/uL Hgb (12.0-16.0) g/dl POC Hgb (12.0-16.0) g/dl Hct (37.0-47.0) % POC Hct (37-47) % MCV (80.0-100.0) fL MCH (25.0-34.0) pg MCHC (32.0-36.0) g/dL RDW Std Deviation (36.4-46.3) fL RDW Coeff of Cyn (11.5-14.5) % Plt Count (130-400) K/uL MPV (9.4-12.4) fL Immature Gran % (Auto) % Neut % (Auto) % Lymph % (Auto) % Gillespie % (Auto) % Eos % (Auto) % Baso % (Auto) % Neut # (Auto) (1.40-6.50) K/uL Lymph # (Auto) (1.20-3.40) K/uL [place]pie # (Auto) (0.11-0.59) K/uL Eos # (Auto) (0.00-0.50) K/uL Baso # (Auto) (0.00-0.20) K/uL Immature Gran # (Auto) (0.01-0.20) K/uL PT (9.0-12.0) Seconds INR (0.9-1.1) APTT (21-31) Seconds PTT Ratio VBG pH 7.43 H (7.36-7.41) VBG pCO2 38 (38-50) mmHg VBG pO2 109 mmHg VBG HCO3 25 mmol/L VBG O2 Saturation 98.0 % VBG Base Excess 1.0 mEq/L POC Sodium (135-144) mmol/L Sodium (136-145) mmol/L POC Potassium (3.3-5.0) mmol/L Potassium (3.5-5.1) mmol/L POC Chloride (101-112) mmol/L Chloride (98-107) mmol/L Carbon Dioxide (21-32) mmol/L POC Total CO2 (24-31) mmol/L Anion Gap (3-11) POC Anion Gap (16-25) mmol/L POC BUN (7-18) mg/dl BUN (6-23) mg/dl Creatinine (0.6-1.2) mg/dl POC Creatinine (0.6-1.3) mg/dl Est Cr Clr Drug Dosing ml/min Est GFR ( Amer) ml/min Est GFR (Non-Af Amer) ml/min BUN/Creatinine Ratio (10-20) Glucose (70-99(Fasting)) mg/dl POC Glucose 101 H (70-99) mg/dl POC Glucose (other) (70-99) mg/dl Lactate 2.0 (0.4-2.0) mmol/L Calcium (8.6-10.3) mg/dl POC Ioniz Calcium Keeley (1.12-1.32) mmol/l Magnesium 1.8 (1.7-2.4) mg/dl Total Bilirubin (0.2-1.0) mg/dl AST (13-39) U/L ALT (7-52) U/L Alkaline Phosphatase (34-104) U/L Ammonia 20.0 (18-72) umol/L Troponin I High Sens 6.0 (0-14) pg/ml Total Protein (6.0-8.3) gm/dl Albumin (3.4-5.0) gm/dl Globulin (2.5-4.0) gm/dl Albumin/Globulin Ratio (0.9-2) Procalcitonin 0.03 (0-0.5) ng/ml TSH (0.300-4.500) uIu/ml Urine Color Yellow Urine Appearance Clear (Clear) Urine pH 6.5 (4.5-7.5) Ur Specific [place] 1.007 (1.000-1.030) Urine Protein Negative (Negative) Urine Glucose (UA) Negative (Negative) Urine Ketones Negative (Negative) Urine Blood Negative (Negative) Urine Nitrite Negative (Negative) Urine Bilirubin Negative (Negative) Urine Urobilinogen Negative (Negative) Ur Leukocyte Esterase Negative (Negative) SARS-CoV-2 (PCR) (Negative) Influenza Type A (PCR) (Neg) Influenza Type B (PCR) (Neg) RSV (RT-PCR) (Neg) 09/25/23 09/25/23 09/25/23 Range/Units 14:53 14:44 14:42 WBC 5.38 (4.8-10.8) K/ul RBC 3.54 L (4.20-5.40) M/uL Hgb 10.0 L (12.0-16.0) g/dl POC Hgb 9.9 L (12.0-16.0) g/dl Hct 29.6 L (37.0-47.0) % POC Hct 29 L (37-47) % MCV 83.6 (80.0-100.0) fL MCH 28.2 (25.0-34.0) pg MCHC 33.8 (32.0-36.0) g/dL RDW Std Deviation 45.6 (36.4-46.3) fL RDW Coeff of Cyn 15.0 H (11.5-14.5) % Plt Count 205 (130-400) K/uL MPV 10.7 (9.4-12.4) fL Immature Gran % (Auto) 0.2 % Neut % (Auto) 51.3 % Lymph % (Auto) 36.6 % Gillespie % (Auto) 11.0 % Eos % (Auto) 0.2 % Baso % (Auto) 0.7 % Neut # (Auto) 2.76 (1.40-6.50) K/uL Lymph # (Auto) 1.97 (1.20-3.40) K/uL Gillespie # (Auto) 0.59 (0.11-0.59) K/uL Eos # (Auto) 0.01 (0.00-0.50) K/uL Baso # (Auto) 0.04 (0.00-0.20) K/uL Immature Gran # (Auto) 0.01 (0.01-0.20) K/uL PT 11.2 (9.0-12.0) Seconds INR 1.0 (0.9-1.1) APTT 30 (21-31) Seconds PTT Ratio 1.1 VBG pH (7.36-7.41) VBG pCO2 (38-50) mmHg VBG pO2 mmHg VBG HCO3 mmol/L VBG O2 Saturation % VBG Base Excess mEq/L POC Sodium 129 L (135-144) mmol/L Sodium 129 L (136-145) mmol/L POC Potassium 3.6 (3.3-5.0) mmol/L Potassium 3.6 (3.5-5.1) mmol/L POC Chloride 94 L (101-112) mmol/L Chloride 97 L (98-107) mmol/L Carbon Dioxide 24 (21-32) mmol/L POC Total CO2 23 L (24-31) mmol/L Anion Gap 8 (3-11) POC Anion Gap 16.0 (16-25) mmol/L POC BUN 12 (7-18) mg/dl BUN 14 (6-23) mg/dl Creatinine 0.41 L (0.6-1.2) mg/dl POC Creatinine 0.4 L (0.6-1.3) mg/dl Est Cr Clr Drug Dosing 108.3 ml/min Est GFR ( Amer) 118.0 ml/min Est GFR (Non-Af Amer) 101.8 ml/min BUN/Creatinine Ratio 34.1 H (10-20) Glucose 115 H (70-99(Fasting)) mg/dl POC Glucose (70-99) mg/dl POC Glucose (other) 116 H (70-99) mg/dl Lactate (0.4-2.0) mmol/L Calcium 9.1 (8.6-10.3) mg/dl POC Ioniz Calcium Keeley 1.18 (1.12-1.32) mmol/l Magnesium (1.7-2.4) mg/dl Total Bilirubin 0.3 (0.2-1.0) mg/dl AST 13 (13-39) U/L ALT 10 (7-52) U/L Alkaline Phosphatase 60 (34-104) U/L Ammonia (18-72) umol/L Troponin I High Sens (0-14) pg/ml Total Protein 5.6 L (6.0-8.3) gm/dl Albumin 3.7 (3.4-5.0) gm/dl Globulin 1.9 L (2.5-4.0) gm/dl Albumin/Globulin Ratio 1.9 (0.9-2) Procalcitonin (0-0.5) ng/ml TSH (0.300-4.500) uIu/ml Urine Color Urine Appearance (Clear) Urine pH (4.5-7.5) Ur Specific [place] (1.000-1.030) Urine Protein (Negative) Urine Glucose (UA) (Negative) Urine Ketones (Negative) Urine Blood (Negative) Urine Nitrite (Negative) Urine Bilirubin (Negative) Urine Urobilinogen (Negative) Ur Leukocyte Esterase (Negative) SARS-CoV-2 (PCR) NEGATIVE (Negative) Influenza Type A (PCR) Negative (Neg) Influenza Type B (PCR) Negative (Neg) RSV (RT-PCR) Negative (Neg) 09/25/23 Range/Units 14:29 WBC (4.8-10.8) K/ul RBC (4.20-5.40) M/uL Hgb (12.0-16.0) g/dl POC Hgb (12.0-16.0) g/dl Hct (37.0-47.0) % POC Hct (37-47) % MCV (80.0-100.0) fL MCH (25.0-34.0) pg MCHC (32.0-36.0) g/dL RDW Std Deviation (36.4-46.3) fL RDW Coeff of Cyn (11.5-14.5) % Plt Count (130-400) K/uL MPV (9.4-12.4) fL Immature Gran % (Auto) % Neut % (Auto) % Lymph % (Auto) % [place] % (Auto) % Eos % (Auto) % Baso % (Auto) % Neut # (Auto) (1.40-6.50) K/uL Lymph # (Auto) (1.20-3.40) K/uL [place] # (Auto) (0.11-0.59) K/uL Eos # (Auto) (0.00-0.50) K/uL Baso # (Auto) (0.00-0.20) K/uL Immature Gran # (Auto) (0.01-0.20) K/uL PT (9.0-12.0) Seconds INR (0.9-1.1) APTT (21-31) Seconds PTT Ratio VBG pH (7.36-7.41) VBG pCO2 (38-50) mmHg VBG pO2 mmHg VBG HCO3 mmol/L VBG O2 Saturation % VBG Base Excess mEq/L POC Sodium (135-144) mmol/L Sodium (136-145) mmol/L POC Potassium (3.3-5.0) mmol/L Potassium (3.5-5.1) mmol/L POC Chloride (101-112) mmol/L Chloride (98-107) mmol/L Carbon Dioxide (21-32) mmol/L POC Total CO2 (24-31) mmol/L Anion Gap (3-11) POC Anion Gap (16-25) mmol/L POC BUN (7-18) mg/dl BUN (6-23) mg/dl Creatinine (0.6-1.2) mg/dl POC Creatinine (0.6-1.3) mg/dl Est Cr Clr Drug Dosing ml/min Est GFR ( Amer) ml/min Est GFR (Non-Af Amer) ml/min BUN/Creatinine Ratio (10-20) Glucose (70-99(Fasting)) mg/dl POC Glucose 133 H (70-99) mg/dl POC Glucose (other) (70-99) mg/dl Lactate (0.4-2.0) mmol/L Calcium (8.6-10.3) mg/dl POC Ioniz Calcium K[place]ley (1.12-1.32) mmol/l Magnesium (1.7-2.4) mg/dl Total Bilirubin (0.2-1.0) mg/dl AST (13-39) U/L ALT (7-52) U/L Alkaline Phosphatase (34-104) U/L Ammonia (18-72) umol/L Troponin I High Sens (0-14) pg/ml Total Protein (6.0-8.3) gm/dl Albumin (3.4-5.0) gm/dl Globulin (2.5-4.0) gm/dl Albumin/Globulin Ratio (0.9-2) Procalcitonin (0-0.5) ng/ml TSH (0.300-4.500) uIu/ml Urine Color Urine Appearance (Clear) Urine pH (4.5-7.5) Ur Specific [place] (1.000-1.030) Urine Protein (Negative) Urine Glucose (UA) (Negative) Urine Ketones (Negative) Urine Blood (Negative) Urine Nitrite (Negative) Urine Bilirubin (Negative) Urine Urobilinogen (Negative) Ur Leukocyte Esterase (Negative) SARS-CoV-2 (PCR) (Negative) Influenza Type A (PCR) (Neg) Influenza Type B (PCR) (Neg) RSV (RT-PCR) (Neg) Medications Administered Current Inpatient Medications Acetaminophen (Acetaminophen 325 Mg Tab) 650 mg PO Q4H PRN PRN Reason: Pain or Fever Stop: 10/25/23 20:44 Aspirin (Aspirin 81 Mg Ectab) 81 mg PO DAILY JAMEL Stop: 10/26/23 08:59 Atorvastatin Calcium (Atorvastatin 20 Mg Tab) 20 mg PO HS [facility] Stop: 10/25/23 20:59 Last Admin: 09/25/23 21:44 Dose: 20 mg Cyanocobalamin (Cyanocobalamin (B-12) 500 Mcg Tablet) 1,000 mcg PO DAILY JAMEL Stop: 10/26/23 08:59 Dextrose (Dextrose 50% 50 Ml Syringe) 25 - 50 ml IV UD PRN; Protocol PRN Reason: Hypoglycemia Protocol Stop: 10/25/23 20:44 Fluticasone Propionate (Fluticasone Propionate Na Spr 16 Gm Btl) 2 sprays NA DAILY JAMEL Stop: 10/26/23 08:59 Glucagon (Glucagon For Inj 1 Mg Vial) 1 mg SQ UD PRN; Protocol PRN Reason: Hypoglycemia Protocol Stop: 10/25/23 20:44 Glucose (Glucose 10 Tab/Tube) 4 - 8 tab PO UD PRN; Protocol PRN Reason: Hypoglycemia Treatment Stop: 10/25/23 20:44 Glucose (Glucose 40% Gel 15 Gm Tube) 15 - 30 gm PO UD PRN; Protocol PRN Reason: Hypoglycemia Protocol Stop: 10/25/23 20:44 Insulin Aspart (Insulin Aspart Per Unit Charge) 0 units SC ACHS [facility] Stop: 10/25/23 20:59 Last Admin: 09/25/23 21:26 Dose: Not Given Levothyroxine Sodium (Levothyroxine Sodium 50 Mcg Tablet) 50 mcg PO DAILYBB [facility] Stop: 10/26/23 06:29 Last Admin: 09/26/23 05:47 Dose: 50 mcg Loratadine (Loratadine 10 Mg Tab) 10 mg PO HS PRN PRN Reason: Allergy Symptoms Stop: 10/25/23 20:44 Magnesium Oxide (Magnesium Oxide 400 Mg Tab) 400 mg PO QAM [facility] Stop: 10/26/23 08:59 Methenamine Hippurate (Methenamine Hippurate 1 Gm Tab) 1 gm PO AMHS [facility] Stop: 09/30/23 20:59 Last Admin: 09/25/23 21:44 Dose: 1 gm Miscellaneous (Carbohydrates For Hypoglycemia ) 15 - 30 gm PO UD PRN PRN Reason: Hypoglycemia Protocol Stop: 10/25/23 20:44 Pantoprazole Sodium (Pantoprazole 40 Mg Tab) 40 mg PO HS JAMEL Stop: 10/25/23 20:59 Last Admin: 09/25/23 21:44 Dose: 40 mg Potassium Chloride (Potassium Chloride 10 Meq Tabcr) 10 meq PO BID JAMEL Stop: 10/26/23 08:59 Sumatriptan Succinate (Sumatriptan Succinate 100 Mg Tab) 100 mg PO DAILY PRN PRN Reason: Headache Stop: 10/25/23 20:44
[2023-09-26] MEDS: MAGNESIUM OXIDE 400 MG TAB PO SCH (08:31)
[2023-09-26] MEDS: CYANOCOBALAMIN (B-12) 500 MCG TABLET PO SCH (08:31)
[2023-09-26] MEDS: ASPIRIN 81 MG ECTAB PO SCH (08:31)
[2023-09-26] MEDS: FLUTICASONE PROPIONATE NA SPR 16 GM BTL SCH (08:31)
[2023-09-26] MEDS: POTASSIUM CHLORIDE 10 MEQ TABCR PO SCH (08:34)
[2023-09-26 08:46] LABS: Magnesium 1.8 mg/dl (1.7-2.4); Phosphorus 3.6 mg/dl (2.5-4.9)
--- NOTE | 2023-09-26 08:51 | Cardiology Consultation ---
Date of Consultation September 26, 2023 Assessment & Plan (1) Syncope: (2) Sinus bradycardia: Plan -Telemetry personally reviewed indicated sinus bradycardia in the 40s to 50s with no pauses -No recurrent syncopal events since presentation -Patient does not have a recollection of the event so it is uncertain what exactly happened causing the unresponsive episode prior to presentation -Clozaril has been discontinued which could contribute to bradycardia -Chart review also indicates that a prior visit she had been on metoprolol? Not sure if she was receiving this at [facility] -chronotropic insufficiency contributing factor may need to further consider pacemaker if the heart rates do not improve off these medications -poor memory and recall, not sure that she will do well at home alone Case discussed with Dr. Gusman. Please see attestation for additional recommendations. I spent a total of 40 minutes on the date of service in preparation, delivery, and documentation of the care provided to the patient excluding any time spent in the performance of separately billed services. GRETA Sanchez Department of Cardiology, [facility] This chart was completed in part utilizing Speech Voice Recognition Software. Grammatical errors, random word insertions, pronoun errors, and incomplete sentences are an occasional consequence of this system due to software limitations, ambient noise, and hardware issues. Any formal questions or concerns about the content, text, or information contained within the body of this dictation should be directly addressed to the provider for clarification. Supervising Physician Co-Signing Physician Notes Patient seen and personally examined, chart, medications, telemetry reviewed. Full assessment and plan as well outlined by advanced provider above. Reviewed and discussed with personally Patient extremely poor historian. Multiple hospitalizations and extended facility stays over the past 5 months Recent history notable for stay at [facility]. Progressively improved regarding schizophrenia/catatonia per psychiatrist note. Per admitting H&P, medications during stay including lisinopril, and metoprolol discontinued due to hypotension and bradycardia. Patient on return to home suffered reported progressive weakness culminating in collapse while waiting in ER after being brought by friend Since admission only finding notable for persistent sinus bradycardia possible chronotropic incompetence. Patient unable to offer history regarding medications taken or prescribed on discharge Plan: Maintain on telemetry additional 24 hours if no change in heart rate may offer dual-chamber pacemaker. Psychiatry notes patient will require clozapine indefinitely and wishes it not to be held or reduced for management of heart rate Will require assist in obtaining informed consent. Keep n.p.o. after midnight History of Present Illness Reason for Consultation: Syncope Requesting Physician: [facility] Hospitalist Attending Physician: Bunny Cagle MD History of Present Illness 73 year old female seen in consultation today in regard to a syncopal event. She has had several recent hospitalizations most recently was admitted from 08/06/23 through 09/14/23 with acute respiratory failure, pneumonia and was subsequently discharged to [facility] for inpatient rehab. Also had a recent admission just prior to that 1 for bowel perforation but also resulted in prolonged hospitalization. She was discharged home yesterday and does not have recollection of this but suspects that her friend found her unconscious on the floor and called emergency services for further transport and evaluation. Does not remember her recent hospital stays. She is a known past medical history of type 2 diabetes, hypertension, hyperlipidemia, hypothyroidism, brain tumor s/p resection, schizophrenia, migraine, anemia and recurrent UTIs. Reports occasional episodes of dizziness but cannot elaborate further. Large portion of HPI was obtained from chart review as the patient was a poor historian. Allergies Allergy/AdvReac Type Severity Reaction Status Date / Time Penicillins Allergy Intermediate Hives Verified 09/25/23 18:19 pollen extracts Allergy Intermediate seasonal Verified 09/25/23 18:19 allergy Cephalosporins AdvReac Intermediate Hallucinations/GI Verified 09/25/23 18:19 UPSET/ CONFUSION cyclobenzaprine AdvReac Intermediate neuro Verified 09/25/23 18:19 [From Flexeril] complications rizatriptan [From Maxalt] AdvReac Intermediate VERTIGO Verified 09/25/23 18:19 Home Medications Medication Instructions Recorded Confirmed Type levothyroxine 50 mcg tablet 50 mcg PO DAILYBB 04/14/18 09/25/23 History (Synthroid) loratadine 10 mg tablet (Claritin) 10 mg PO HS PRN Allergy Symptoms 03/25/19 09/25/23 History magnesium oxide 400 mg PO QAM 03/25/19 09/25/23 History atorvastatin 20 mg tablet 20 mg PO HS 11/22/19 09/25/23 History sumatriptan succinate 100 mg tablet 100 mg PO DAILY PRN Headache 11/22/19 09/25/23 History metformin 500 mg tablet 500 mg PO QAM 02/24/21 09/25/23 History riboflavin (vitamin B2) 400 mg 400 mg PO QAM 02/24/21 09/25/23 History tablet fluticasone propionate 50 2 spray intranasal DAILY 07/13/21 09/25/23 History mcg/actuation nasal spray,suspension (Flonase Allergy Relief) aspirin 81 mg chewable tablet 81 mg PO DAILY 05/12/22 09/25/23 History (Aspirin Childrens) cholecalciferol (vitamin D3) 1,250 1,250 mcg PO WK 12/16/22 09/25/23 History mcg (50,000 unit) capsule omeprazole 40 mg capsule,delayed 40 mg PO HS 12/16/22 09/25/23 History release lisinopril 20 mg tablet 20 mg PO QAM 01/15/23 09/25/23 History acetaminophen 500 mg/15 mL oral 100 mg PO Q4H PRN PAIN/FEVER 08/06/23 09/25/23 History liquid amlodipine 5 mg tablet 5 mg PO DAILY 08/06/23 09/25/23 History cyanocobalamin (vitamin B-12) 1,000 mcg PO DAILY 08/06/23 09/25/23 History 1,000 mcg tablet (Vitamin B-12) diclofenac sodium 1 % topical gel 2 g topical TID PRN Pain 08/06/23 09/25/23 History iron,carbonyl 65 mg-vitamin C 125 1 tab PO DAILY 08/06/23 09/25/23 History mg tablet,delayed release (Vitron-C) methenamine hippurate 1 gram tablet 1 g PO AMHS 08/06/23 09/25/23 History clozapine 100 mg tablet 100 mg PO HS 09/25/23 09/25/23 History docusate sodium 100 mg capsule 100 mg PO BID 09/25/23 09/25/23 History duloxetine 60 mg capsule,delayed 60 mg PO DAILY 09/25/23 09/25/23 History release sprinkle gabapentin 100 mg capsule See Rx Instructions .Route .COMPLEX 09/25/23 09/25/23 History magnesium hydroxide 400 mg/5 mL 400 mg PO DAILY PRN Constipation 09/25/23 09/25/23 History oral suspension metoprolol succinate 50 mg 50 mg PO DAILY 09/25/23 09/25/23 History tablet,extended release 24 hr polyethylene glycol 3350 17 17 g PO DAILY PRN Constipation 09/25/23 09/25/23 History gram/dose oral powder (Miralax) psyllium husk 3.4 gram/5.4 gram 1 tbsp PO TID 09/25/23 09/25/23 History oral powder (Metamucil) Patient History Medical History Schizophrenia Volume overload Weak cough Severe sepsis Aspiration pneumonia Weakness Constipation Bacteremia Acute UTI (urinary tract infection) Generalized weakness AMS (altered mental status) Unresponsive Obtunded COVID-19 Hyponatremia Nausea Dehydration Dizziness Neuropathy Headache Vertigo GERD (gastroesophageal reflux disease) Well controlled with medication Hypothyroidism Anxiety Migraine Hypertension Neuropathy DM2 (diabetes mellitus, type 2) HLD (hyperlipidemia) Somatization disorder Surgical History S/P foot surgery, right X2 S/P foot surgery, left X2 History of colonoscopy History of tooth extraction WISDOM TEETH History of tonsillectomy H/O bilateral cataract extraction History of craniotomy 1969, [place] D/T HEADACHE---FOLLOWS W DR. MICHAEL History of cataract surgery H/O cystoscopy H/O foot surgery H/O brain surgery "abt 1969 R parietal exploration for benign lesion" Family History Grandmother Family history of diabetes mellitus PATERNAL Family/Other Family history of diabetes mellitus UNCLE Father Parkinson disease Mother CHF (congestive heart failure) Social History Smoking Status: Never smoker Second Hand Exposure: Yes (FATHER SMOKED); Do You Dip or Chew Tobacco: No; Hx Alcohol Use: No Hx Substance Use: No Preferred Language: Tamazight Communication Ability: Impaired Director Medical Affairs Required: No Beliefs That Will Affect Care: None marital status: Single Current Living Situation: Alone Current Living Situation Comment: Has an agency that comes 4-8 m-f as well as a friend 9-1 m-f How many Children do You have: 0 Other Information That Helps Us Care for You: No Feels Safe at Home: Yes Safety Concerns: Feels Safe At This Time Assistive Devices: Walker Review of Systems Review of Systems: All systems reviewed & are unremarkable except as noted in HPI & below Constitutional: + fatigue and + weakness Eyes: no loss of peripheral vision, no spots in vision and no tunnel vision Ear, Nose, Mouth, Throat: + dizziness Respiratory: no cough and no dyspnea Cardiovascular: + lightheadedness and + syncope; no ches t pain and no palpitations Gastrointestinal: no nausea and no vomiting Integumentary: no rash and no lesions Neurologic: + dizziness; no unsteadiness and no gene ralized weakness Physical Exam Constitutional: well developed and well nourished; no acute distress Eyes: EOM intact bilaterally and reactive pupils Neck: normal visual inspection Respiratory: normal respiratory effort, lungs clear to auscultation Cardiovascular: Rate/Rhythm: regular rhythm and + bradycardic Heart Sounds: normal S1 and normal S2 Vessels: no JVD Gastrointestinal (Abdomen): Inspection/Auscultation: abdomen normal to inspection; abdomen not distended Percussion/Palpation: abdomen soft; abdomen nontender Skin: no rashes, warm and dry Psychiatric: Orientation: alert, oriented to place and cooperative Results & Data Vital Signs (Past 12 Hours) Vital Signs Temp Pulse Pulse Resp BP Pulse Ox O2 Del Method 09/26/23 07:07 36.8 C 50 L 16 148/74 H 99 Room Air 09/26/23 02:48 36.3 C L 52 L 18 135/68 100 Room Air 09/25/23 22:57 36.6 C 70 18 129/70 100 Room Air 09/25/23 22:00 50 L 09/25/23 20:45 36.5 C 56 L 18 167/63 H 100 Room Air 09/25/23 20:45 36.5 C 56 L 18 167/63 H 100 Room Air Laboratory Results Cardiac Enzymes 09/25/23 09/25/23 Range/Units 14:42 15:28 AST 13 (13-39) U/L Troponin I High Sens 6.0 (0-14) pg/ml Coagulation 09/25/23 Range/Units 14:42 PT 11.2 (9.0-12.0) Seconds APTT 30 (21-31) Seconds CBC 09/25/23 09/26/23 Range/Units 14:42 03:38 WBC 5.38 4.05 L (4.8-10.8) K/ul RBC 3.54 L 3.66 L (4.20-5.40) M/uL Hgb 10.0 L 10.4 L (12.0-16.0) g/dl Hct 29.6 L 31.6 L (37.0-47.0) % Plt Count 205 188 (130-400) K/uL Neut # (Auto) 2.76 1.70 (1.40-6.50) K/uL Lymph # (Auto) 1.97 1.87 (1.20-3.40) K/uL Hale # (Auto) 0.59 0.40 (0.11-0.59) K/uL Eos # (Auto) 0.01 0.01 (0.00-0.50) K/uL Baso # (Auto) 0.04 0.03 (0.00-0.20) K/uL Comprehensive Metabolic Panel 09/25/23 09/25/23 09/26/23 Range/Units 14:42 22:07 03:38 Sodium 129 L 139 D 140 (136-145) mmol/L Potassium 3.6 3.7 3.6 (3.5-5.1) mmol/L Chloride 97 L 105 108 H (98-107) mmol/L Carbon Dioxide 24 27 26 (21-32) mmol/L BUN 14 12 11 (6-23) mg/dl Creatinine 0.41 L 0.37 L 0.36 L (0.6-1.2) mg/dl Glucose 115 H 106 H 96 (70-99(Fasting)) mg/dl Calcium 9.1 9.5 8.9 (8.6-10.3) mg/dl AST 13 (13-39) U/L ALT 10 (7-52) U/L Alkaline Phosphatase 60 (34-104) U/L Total Protein 5.6 L (6.0-8.3) gm/dl Albumin 3.7 (3.4-5.0) gm/dl Intake and Output 09/25/23 09/26/23 09/26/23 22:59 06:59 14:59 Intake Total 120 / 120 1000 / 1000 Output Total 250 / 650 400 / 650 Balance -130 / -530 -400 / -530 1000 / 1000 Intake: IV 1000 / 1000 Sodium Chloride 0.9% 1,000 ml @ 1000 / 1000 100 mls/hr IV .Q10H [facility] Rx#: [id number] Oral 120 / 120 Output: Urine Amount (Catheter) 250 / 650 400 / 650 External 250 / 650 400 / 650 Other: Weight 59.1 kg 56.9 kg Weight Measurement Method [facility] Diagnostic Findings Echocardiogram 08/07/23 LV systolic Function Normal EF 50-55% No WMA Mild MR Mild TR Medications Administered Current Inpatient Medications Acetaminophen (Acetaminophen 325 Mg Tab) 650 mg PO Q4H PRN PRN Reason: Pain or Fever Stop: 10/25/23 20:44 Aspirin (Aspirin 81 Mg Ectab) 81 mg PO DAILY JAMEL Stop: 10/26/23 08:59 Last Admin: 09/26/23 08:31 Dose: 81 mg Atorvastatin Calcium (Atorvastatin 20 Mg Tab) 20 mg PO HS JAMEL Stop: 10/25/23 20:59 Last Admin: 09/25/23 21:44 Dose: 20 mg Cyanocobalamin (Cyanocobalamin (B-12) 500 Mcg Tablet) 1,000 mcg PO DAILY JAMEL Stop: 10/26/23 08:59 Last Admin: 09/26/23 08:31 Dose: 1,000 mcg Dextrose (Dextrose 50% 50 Ml Syringe) 25 - 50 ml IV UD PRN; Protocol PRN Reason: Hypoglycemia Protocol Stop: 10/25/23 20:44 Fluticasone Propionate (Fluticasone Propionate Na Spr 16 Gm Btl) 2 sprays NA DAILY JAMEL Stop: 10/26/23 08:59 Last Admin: 09/26/23 08:31 Dose: 2 sprays Glucagon (Glucagon For Inj 1 Mg Vial) 1 mg SQ UD PRN; Protocol PRN Reason: Hypoglycemia Protocol Stop: 10/25/23 20:44 Glucose (Glucose 10 Tab/Tube) 4 - 8 tab PO UD PRN; Protocol PRN Reason: Hypoglycemia Treatment Stop: 10/25/23 20:44 Glucose (Glucose 40% Gel 15 Gm Tube) 15 - 30 gm PO UD PRN; Protocol PRN Reason: Hypoglycemia Protocol Stop: 10/25/23 20:44 Insulin Aspart (Insulin Aspart Per Unit Charge) 0 units SC ACHS JAMEL Stop: 10/25/23 20:59 Last Admin: 09/26/23 08:30 Dose: Not Given Levothyroxine Sodium (Levothyroxine Sodium 50 Mcg Tablet) 50 mcg PO DAILYBB JAMEL Stop: 10/26/23 06:29 Last Admin: 09/26/23 05:47 Dose: 50 mcg Loratadine (Loratadine 10 Mg Tab) 10 mg PO HS PRN PRN Reason: Allergy Symptoms Stop: 10/25/23 20:44 Magnesium Oxide (Magnesium Oxide 400 Mg Tab) 400 mg PO QAM JAMEL Stop: 10/26/23 08:59 Last Admin: 09/26/23 08:31 Dose: 400 mg Methenamine Hippurate (Methenamine Hippurate 1 Gm Tab) 1 gm PO AMHS JAMEL Stop: 09/30/23 20:59 Last Admin: 09/26/23 08:31 Dose: 1 gm Miscellaneous (Carbohydrates For Hypoglycemia ) 15 - 30 gm PO UD PRN PRN Reason: Hypoglycemia Protocol Stop: 10/25/23 20:44 Pantoprazole Sodium (Pantoprazole 40 Mg Tab) 40 mg PO HS JAMEL Stop: 10/25/23 20:59 Last Admin: 09/25/23 21:44 Dose: 40 mg Potassium Chloride (Potassium Chloride 10 Meq Tabcr) 10 meq PO BID JAMEL Stop: 10/26/23 08:59 Last Admin: 09/26/23 08:34 Dose: 10 meq Sumatriptan Succinate (Sumatriptan Succinate 100 Mg Tab) 100 mg PO DAILY PRN PRN Reason: Headache Stop: 10/25/23 20:44
[2023-09-26] MEDS ORDERED: NON-FORMULARY MEDICATION (Riboflavin (Vitamin B2) 400 mg tablet) PO SCH (09:00)
[2023-09-26 09:31] LABS: BUN Creatinine Ratio 23.7 (10-20); Calcium 8.4 mg/dl (8.6-10.3); Creatinine Clr Calc Pharmacy 116.7 ml/min; Est GFR (African American) 120.9 ml/min; Est GFR (Non-African American) 104.4 ml/min; Potassium 3.6 mmol/L (3.5-5.1)
--- NOTE | 2023-09-26 16:51 | Psychiatric Consultation ---
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 I have never seen her doing as well as she is now with good interaction, good eye contact, and bright affect. I know the medical staff are concerned about the bradycardia, but I worry that stopping the clozapine will force her to retreat back into a catatonia which may end her life. The dizziness may be attributed to her deconditioning from spending so much time in bed over the last month or 2. (1) Schizophrenia: (2) Major neurocognitive disorder: Plan I discussed the case with the attending and included the crop farm workers and cardiology nurse practitioner in the text. If at all possible we need to try to continue the clozapine because it has been a life saver for this lady. We could try going down to 75 mg, but there is a risk that this will cause her to become more catatonic. I do not feel she is able to make decisions about her care because of her disorientation, poor memory, and confusion. Last time she was here, there were recommendations for guardianship, but I do not know where that led. Today I spent about 50 minutes on the case. This included meeting with the patient, reviewing the chart, discussing the case with the nurse, documentation, and texting with the medical staff. Psych History Identifying Data June is a 72-year-old female with a past psychiatric history of schizophrenia and has been on Clozaril for decades who admitted with presumed sepsis. She was medically stabilized but was catatonic and eventually, once clozapine was titrated up to a reasonable dose, improved. She also had a urinary tract infection at that time. Eventually she was able to transition to a rehab and discharged to her home and then was brought back to our hospital within 24 hours. She had had some dizziness and bradycardia. The medical staff are concerned that the clozapine could be possibly contributing to this. I was asked to meet with her to see if there is any other recommendations we can make. I was also asked whether or not she can consent for a pacemaker. Chief Complaint "[]". History of Present Illness I remember June from late August and the beginning of August. She has improv ed dramatically and her interaction from the time that she was catatonic when I saw her then. Her clozapine on admission was 100 mg nightly, but she has a history of being on much higher doses. When I came into her the room she was eating her lunch and finished that up. She made good eye contact with me and was talking about how she was feeling. She said that recently she has been feeling somewhat weak and was dizzy for "part of the time." She did not fall. She does not feel any problems with her heart although it sounds like her heart rate has been bradycardic. She says that she is on the clozapine for "confusion" and that she has been on it for many many years and finds it helpful. She denies any hallucinations. She denies any suicidal or homicidal thoughts. She described her mood with me today as "not happy or sad." She denies anhedonia and has been enjoying her meals. She has been sleeping okay. Allergies Allergy/AdvReac Type Severity Reaction Status Date / Time Penicillins Allergy Intermediate Hives Verified 09/25/23 18:19 pollen extracts Allergy Intermediate seasonal Verified 09/25/23 18:19 allergy Cephalosporins AdvReac Intermediate Hallucinations/GI Verified 09/25/23 18:19 UPSET/ CONFUSION cyclobenzaprine AdvReac Intermediate neuro Verified 09/25/23 18:19 [From Flexeril] complications rizatriptan [From Maxalt] AdvReac Intermediate VERTIGO Verified 09/25/23 18:19 Home Medications Medication Instructions Recorded Confirmed Type levothyroxine 50 mcg tablet 50 mcg PO DAILYBB 04/14/18 09/25/23 History (Synthroid) loratadine 10 mg tablet (Claritin) 10 mg PO HS PRN Allergy Symptoms 03/25/19 09/25/23 History magnesium oxide 400 mg PO QAM 03/25/19 09/25/23 History atorvastatin 20 mg tablet 20 mg PO HS 11/22/19 09/25/23 History sumatriptan succinate 100 mg tablet 100 mg PO DAILY PRN Headache 11/22/19 09/25/23 History metformin 500 mg tablet 500 mg PO QAM 02/24/21 09/25/23 History riboflavin (vitamin B2) 400 mg 400 mg PO QAM 02/24/21 09/25/23 History tablet fluticasone propionate 50 2 spray intranasal DAILY 07/13/21 09/25/23 History mcg/actuation nasal spray,suspension (Flonase Allergy Relief) aspirin 81 mg chewable tablet 81 mg PO DAILY 05/12/22 09/25/23 History (Aspirin Childrens) cholecalciferol (vitamin D3) 1,250 1,250 mcg PO WK 12/16/22 09/25/23 History mcg (50,000 unit) capsule omeprazole 40 mg capsule,delayed 40 mg PO HS 12/16/22 09/25/23 History release lisinopril 20 mg tablet 20 mg PO QAM 01/15/23 09/25/23 History acetaminophen 500 mg/15 mL oral 100 mg PO Q4H PRN PAIN/FEVER 08/06/23 09/25/23 History liquid amlodipine 5 mg tablet 5 mg PO DAILY 08/06/23 09/25/23 History cyanocobalamin (vitamin B-12) 1,000 mcg PO DAILY 08/06/23 09/25/23 History 1,000 mcg tablet (Vitamin B-12) diclofenac sodium 1 % topical gel 2 g topical TID PRN Pain 08/06/23 09/25/23 History iron,carbonyl 65 mg-vitamin C 125 1 tab PO DAILY 08/06/23 09/25/23 History mg tablet,delayed release (Vitron-C) methenamine hippurate 1 gram tablet 1 g PO AMHS 08/06/23 09/25/23 History clozapine 100 mg tablet 100 mg PO HS 09/25/23 09/25/23 History docusate sodium 100 mg capsule 100 mg PO BID 09/25/23 09/25/23 History duloxetine 60 mg capsule,delayed 60 mg PO DAILY 09/25/23 09/25/23 History release sprinkle gabapentin 100 mg capsule See Rx Instructions .Route .COMPLEX 09/25/23 09/25/23 History magnesium hydroxide 400 mg/5 mL 400 mg PO DAILY PRN Constipation 09/25/23 09/25/23 History oral suspension metoprolol succinate 50 mg 50 mg PO DAILY 09/25/23 09/25/23 History tablet,extended release 24 hr polyethylene glycol 3350 17 17 g PO DAILY PRN Constipation 09/25/23 09/25/23 History gram/dose oral powder (Miralax) psyllium husk 3.4 gram/5.4 gram 1 tbsp PO TID 09/25/23 09/25/23 History oral powder (Metamucil) Patient History Medical History Schizophrenia Volume overload Weak cough Severe sepsis Aspiration pneumonia Weakness Constipation Bacteremia Acute UTI (urinary tract infection) Generalized weakness AMS (altered mental status) Unresponsive Obtunded COVID-19 Hyponatremia Nausea Dehydration Dizziness Neuropathy Headache Vertigo GERD (gastroesophageal reflux disease) Well controlled with medication Hypothyroidism Anxiety Migraine Hypertension Neuropathy DM2 (diabetes mellitus, type 2) HLD (hyperlipidemia) Somatization disorder Surgical History S/P foot surgery, right X2 S/P foot surgery, left X2 History of colonoscopy History of tooth extraction WISDOM TEETH History of tonsillectomy H/O bilateral cataract extraction History of craniotomy 1969, IN [place] D/T HEADACHE---FOLLOWS W DR. MICHAEL History of cataract surgery H/O cystoscopy H/O foot surgery H/O brain surgery "abt 1969 R parietal exploration for benign lesion" Family History Grandmother Family history of diabetes mellitus PATERNAL Family/Other Family history of diabetes mellitus UNCLE Father Parkinson disease Mother CHF (congestive heart failure) Social History Smoking Status: Never smoker Second Hand Exposure: Yes (FATHER SMOKED); Do You Dip or Chew Tobacco: No; Hx Alcohol Use: No Hx Substance Use: No Preferred Language: Urdu Communication Ability: Impaired General Purchasing Agent Required: No Beliefs That Will Affect Care: None marital status: Single Current Living Situation: Alone Current Living Situation Comment: Has an agency that comes 4-8 m-f as well as a friend 9-1 m-f How many Children do You have: 0 Other Information That Helps Us Care for You: No Feels Safe at Home: Yes Safety Concerns: Feels Safe At This Time Assistive Devices: Walker Physical Exam Psychiatric: Patient was alert but not oriented. She thought she was at a hospital [facility] and she did not know what floor she was on. She thought the year was 2020 and she did not know the day of the week, but she knew it was late August because her birthday was recently. She was disheveled in a hospital gown in bed. Eye contact was good, better than I have ever seen it. Speech was normal and much better than I had ever heard her speak. Mood was described as "not happy or sad. Affect was much brighter than I have ever seen at. Thought process was confused but pleasant and cooperative. There was no evidence of any hallucinations or delusions. Patient denied any suicidal or homicidal thoughts. Memory was better than expected; she knew her birthdate, but she did not know the vice president of communications. She also knew the [facility]. Concentration was pretty good; she was able to spell her first name backwards. No abnormal movements were seen. Gait was not evaluated. Insight and judgment are impaired. Vital Signs (Past 24 Hours): Last Vital Signs Temp 37.2 C 09/26/23 15:12 Pulse 58 L 09/26/23 15:55 Resp 19 09/26/23 15:12 BP 135/70 09/26/23 15:12 Pulse Ox 98 09/26/23 15:12 O2 Del Method Room Air 09/26/23 15:12 Results & Data (PSY) Medications Administered Aspirin (Aspirin 81 Mg Ectab) 81 mg PO DAILY JAMEL Stop: 10/26/23 08:59 Last Admin: 09/26/23 08:31 Dose: 81 mg Documented By: Atorvastatin Calcium (Atorvastatin 20 Mg Tab) 20 mg PO HS JAMEL Stop: 10/25/23 20:59 Last Admin: 09/25/23 21:44 Dose: 20 mg Documented By: JENNIFER Cyanocobalamin (Cyanocobalamin (B-12) 500 Mcg Tablet) 1,000 mcg PO DAILY JAMEL Stop: 10/26/23 08:59 Last Admin: 09/26/23 08:31 Dose: 1,000 mcg Documented By: MS Fluticasone Propionate (Fluticasone Propionate Na Spr 16 Gm Btl) 2 sprays NA DAILY JAMEL Stop: 10/26/23 08:59 Last Admin: 09/26/23 08:31 Dose: 2 sprays Documented By: MS Insulin Aspart (Insulin Aspart Per Unit Charge) 0 units SC ACHS JAMEL Stop: 10/25/23 20:59 Last Admin: 09/26/23 12:11 Dose: Not Given Documented By: Admin: 09/26/23 08:30 Dose: Not Given Documented By: Admin: 09/25/23 21:26 Dose: Not Given Documented By: JENNIFER Levothyroxine Sodium (Levothyroxine Sodium 50 Mcg Tablet) 50 mcg PO DAILYBB JAMEL Stop: 10/26/23 06:29 Last Admin: 09/26/23 05:47 Dose: 50 mcg Documented By: JENNIFER Magnesium Oxide (Magnesium Oxide 400 Mg Tab) 400 mg PO QAM JAMEL Stop: 10/26/23 08:59 Last Admin: 09/26/23 08:31 Dose: 400 mg Documented By: Methenamine Hippurate (Methenamine Hippurate 1 Gm Tab) 1 gm PO AMHS JAMEL Stop: 09/30/23 20:59 Last Admin: 09/26/23 08:31 Dose: 1 gm Documented By: Admin: 09/25/23 21:44 Dose: 1 gm Documented By: JENNIFER Pantoprazole Sodium (Pantoprazole 40 Mg Tab) 40 mg PO HS JAMEL Stop: 10/25/23 20:59 Last Admin: 09/25/23 21:44 Dose: 40 mg Documented By: JENNIFER Potassium Chloride (Potassium Chloride 10 Meq Tabcr) 10 meq PO BID JAMEL Stop: 10/26/23 08:59 Last Admin: 09/26/23 08:34 Dose: 10 meq Documented By: Coding Level of Care Code 95204 U Intl Hosp Care Lvl 2 Diagnoses Schizophrenia F20.9 Major neurocognitive disorder F03.90
--- NOTE | 2023-09-26 16:55 | Electroencephalogram ---
EEG Procedure Note Date of Service September 26, 2023 Start / End Times Start Time: 06:24 End Time: 06:44 Referring Physician Stephane Pickard MD History A 73 year old female with syncopal episode. EEG performed for evaluation of epileptiform activity. Home Medication List Medication Instructions Recorded Confirmed Type levothyroxine 50 mcg tablet 50 mcg PO DAILYBB 04/14/18 09/25/23 History (Synthroid) loratadine 10 mg tablet (Claritin) 10 mg PO HS PRN Allergy Symptoms 03/25/19 09/25/23 History magnesium oxide 400 mg PO QAM 03/25/19 09/25/23 History atorvastatin 20 mg tablet 20 mg PO HS 11/22/19 09/25/23 History sumatriptan succinate 100 mg tablet 100 mg PO DAILY PRN Headache 11/22/19 09/25/23 History metformin 500 mg tablet 500 mg PO QAM 02/24/21 09/25/23 History riboflavin (vitamin B2) 400 mg 400 mg PO QAM 02/24/21 09/25/23 History tablet fluticasone propionate 50 2 spray intranasal DAILY 07/13/21 09/25/23 History mcg/actuation nasal spray,suspension (Flonase Allergy Relief) aspirin 81 mg chewable tablet 81 mg PO DAILY 05/12/22 09/25/23 History (Aspirin Childrens) cholecalciferol (vitamin D3) 1,250 1,250 mcg PO WK 12/16/22 09/25/23 History mcg (50,000 unit) capsule omeprazole 40 mg capsule,delayed 40 mg PO HS 12/16/22 09/25/23 History release lisinopril 20 mg tablet 20 mg PO QAM 01/15/23 09/25/23 History acetaminophen 500 mg/15 mL oral 100 mg PO Q4H PRN PAIN/FEVER 08/06/23 09/25/23 History liquid amlodipine 5 mg tablet 5 mg PO DAILY 08/06/23 09/25/23 History cyanocobalamin (vitamin B-12) 1,000 mcg PO DAILY 08/06/23 09/25/23 History 1,000 mcg tablet (Vitamin B-12) diclofenac sodium 1 % topical gel 2 g topical TID PRN Pain 08/06/23 09/25/23 History iron,carbonyl 65 mg-vitamin C 125 1 tab PO DAILY 08/06/23 09/25/23 History mg tablet,delayed release (Vitron-C) methenamine hippurate 1 gram tablet 1 g PO AMHS 08/06/23 09/25/23 History clozapine 100 mg tablet 100 mg PO HS 09/25/23 09/25/23 History docusate sodium 100 mg capsule 100 mg PO BID 09/25/23 09/25/23 History duloxetine 60 mg capsule,delayed 60 mg PO DAILY 09/25/23 09/25/23 History release sprinkle gabapentin 100 mg capsule See Rx Instructions .Route .COMPLEX 09/25/23 09/25/23 History magnesium hydroxide 400 mg/5 mL 400 mg PO DAILY PRN Constipation 09/25/23 09/25/23 History oral suspension metoprolol succinate 50 mg 50 mg PO DAILY 09/25/23 09/25/23 History tablet,extended release 24 hr polyethylene glycol 3350 17 17 g PO DAILY PRN Constipation 09/25/23 09/25/23 History gram/dose oral powder (Miralax) psyllium husk 3.4 gram/5.4 gram 1 tbsp PO TID 09/25/23 09/25/23 History oral powder (Metamucil) Inpatient Medication List Aspirin (Aspirin 81 Mg Ectab) 81 mg PO DAILY [facility] Stop: 10/26/23 08:59 Last Admin: 09/26/23 08:31 Dose: 81 mg Documented By: MS Atorvastatin Calcium (Atorvastatin 20 Mg Tab) 20 mg PO HS [facility] Stop: 10/25/23 20:59 Last Admin: 09/25/23 21:44 Dose: 20 mg Documented By: [facility] Cyanocobalamin (Cyanocobalamin (B-12) 500 Mcg Tablet) 1,000 mcg PO DAILY JAMEL Stop: 10/26/23 08:59 Last Admin: 09/26/23 08:31 Dose: 1,000 mcg Documented By: MS Fluticasone Propionate (Fluticasone Propionate Na Spr 16 Gm Btl) 2 sprays NA DAILY JAMEL Stop: 10/26/23 08:59 Last Admin: 09/26/23 08:31 Dose: 2 sprays Documented By: MS Insulin Aspart (Insulin Aspart Per Unit Charge) 0 units SC ACHS JAMEL Stop: 10/25/23 20:59 Last Admin: 09/26/23 12:11 Dose: Not Given Documented By: Admin: 09/26/23 08:30 Dose: Not Given Documented By: Admin: 09/25/23 21:26 Dose: Not Given Documented By: JENNIFER Levothyroxine Sodium (Levothyroxine Sodium 50 Mcg Tablet) 50 mcg PO DAILYBB JAMEL Stop: 10/26/23 06:29 Last Admin: 09/26/23 05:47 Dose: 50 mcg Documented By: JENNIFER Magnesium Oxide (Magnesium Oxide 400 Mg Tab) 400 mg PO QAM JAMEL Stop: 10/26/23 08:59 Last Admin: 09/26/23 08:31 Dose: 400 mg Documented By: Methenamine Hippurate (Methenamine Hippurate 1 Gm Tab) 1 gm PO AMHS JAMEL Stop: 09/30/23 20:59 Last Admin: 09/26/23 08:31 Dose: 1 gm Documented By: Admin: 09/25/23 21:44 Dose: 1 gm Documented By: JENNIFER Pantoprazole Sodium (Pantoprazole 40 Mg Tab) 40 mg PO HS JAMEL Stop: 10/25/23 20:59 Last Admin: 09/25/23 21:44 Dose: 40 mg Documented By: JENNIFER Potassium Chloride (Potassium Chloride 10 Meq Tabcr) 10 meq PO BID JAMEL Stop: 10/26/23 08:59 Last Admin: 09/26/23 08:34 Dose: 10 meq Documented By: Discontinued Medications Sodium Chloride (Nss) 1,000 mls @ 100 mls/hr IV .Q10H JAMEL Stop: 10/25/23 20:44 Last Admin: 09/26/23 07:57 Dose: Not Given Documented By: Infusion: 09/26/23 07:57 Dose: Infused Documented By: Admin: 09/25/23 21:26 Dose: 100 mls/hr Documented By: [facility] Description This is a 21 electrode EEG with a single channel dedicated to limited EKG. The electrodes were placed in accordance with the International 10-20 system. ROUTINE: At the onset of the EEG the patient is drowsy. The background is continuous and appears symmetric. The background consist of 5-6 theta activity with some intermixed delta activity. No stage II sleep transients are seen. Interpretation IMPRESSION: THis is an abnormal routine EEG due to generalized background slowing suggestive of a non specific encephalopathy. No epileptiform activity is seen.
[2023-09-26] MEDS: cloZAPine 25 MG TAB PO SCH (21:16)
[2023-09-27 06:52] LABS: Hematocrit (blood only) 32.5 % (37.0-47.0); Hemoglobin 10.3 g/dl (12.0-16.0); Mean Corpuscular Hemoglobin 28.2 pg (25.0-34.0); Mean Corpuscular Hgb Conc 31.7 g/dL (32.0-36.0); Mean Platelet Volume 11.1 fL (9.4-12.4); Platelet Count 179 K/uL (130-400); RDW Coefficient of Variation 15.3 % (11.5-14.5); RDW Standard Deviation 50.2 fL (36.4-46.3); Red Blood Count 3.65 M/uL (4.20-5.40); White Blood Count 4.48 K/ul (4.8-10.8)
[2023-09-27 07:09] LABS: BUN Creatinine Ratio 22.9 (10-20); Calcium 8.6 mg/dl (8.6-10.3); Creatinine Clr Calc Pharmacy 90.7 ml/min; Est GFR (Non-African American) 96.6 ml/min; Magnesium 1.8 mg/dl (1.7-2.4); Phosphorus 3.4 mg/dl (2.5-4.9); Potassium 4.1 mmol/L (3.5-5.1)
[2023-09-27] MEDS: ACETAMINOPHEN 325 MG TAB PO PRN (07:59)
--- NOTE | 2023-09-27 10:49 | Hospitalist Progress Note ---
Date of Service September 27, 2023 Assessment & Plan (1) Weakness: (2) Syncope: Plan: 73 yo female with history of diabetes type 2, hypertension, dyslipidemia, hypothyroidism, brain tumor s/p resection, schizophrenia, migraine, anemia, recurrent UTIs Presenting today after being discharged from [facility] yesterday for weakness and a syncopal episode while at the ER triage area. WEAKNESS, SYNCOPE LIKELY SECONDARY TO ORTHOSTATIC HYPOTENSION,POSSIBLE UNDERLYING SICK SINUS SYNDROME Patient recently admitted to [facility] for pneumonia, respiratory failure s/p intubation, UTI, delirium, stercoral colitis from constipation And was observed to have bradycardia, metoprolol reduced in dose. While at [facility], patient noted to have borderline blood pressure and bradycardia. Amlodipine, lisinopril, metoprolol subsequently discontinued She has been off these medications for a few days now. She was discharged from [facility] yesterday (day prior admission) She now presents with weakness and syncope in the setting of marginal blood pressure and sinus bradycardia in the 50s She has dry oral mucosa and has low sodium indicating dehydration. IV NSS - now stopped TSH wnl, cortisol level pending Had a recent echo done in August 2023 which showed preserved ejection fraction, no significant valvular abnormalities Held clozapine initially on admission as syncope, bradycardia listed as adverse effects - discussed w/ psychiatry - recommend to continue clozapine (pt was previously on higher dose and was discharged on 100) Cardiology consulted - considering PPM 09/26 - Received contact number from for Dimitris Peterson ([phone]) pt's nephew. He resides in [place]. He is willing to help with decision making. He was updated on her current and previous hospitalization. He understands cardiology is considering placing a pacemaker and is in agreement with the plan. Discussed possible PPM placement with the pt as well, and she is agreeable, however she may not remember our conversation, she currently does not remember talking to cardiology. RULE OUT CVA Brain MRI - no acute CVA RULE OUT SEIZURE As a history of brain tumor, status post resection EEG - IMPRESSION: This is an abnormal routine EEG due to generalized background slowing suggestive of a non specific encephalopathy. No epileptiform activity is seen. Acute coronary syndrome unlikely as patient has negative troponin, no chest pain Hypoglycemia ruled out Infection unlikely as urinalysis, chest x-ray negative DIABETES TYPE 2 Insulin sliding scale Hold metformin HYPERTENSION - with marginal blood pressures on admission - now improved after IVF HYPOTHYROIDISM TSH 2.2 BRAIN TUMOR S/P RESECTION SCHIZOPHRENIA Re-Started on clozapine (was discharged on lower dose than her usual actually) during her last admission Initially held clozapine on admission as this may cause bradycardia, syncope - as above, discussed w/ psychiatry - recommend to continue clozapine (pt was previously on higher dose and was discharged on 100) Psychiatry consulted Migraine Chronic anemia Recurrent UTI DVT prophylaxis SCDs for now CODE STATUS Full code as per patient Disposition PT and OT May need to return to acute rehab Admission and Anticipated Discharge Date Admission Date: September 25, 2023 Subjective Pt seen in follow up of syncope, bradycardia Recently admitted - required ICU, intubated (prior to being hospitalized she was in ER and sent home-> then found unresponsive) -> after her prolonged hospitalization discharged to [facility] - and just returned home and felt weak - in ER had syncopal episode Currently laying in bed in [facility] Says she feels well but does not remember what happened prior to coming to the hospital, does not remember much of being in rehab either No fever, chills, chest pain, or shortness of breath. no abd. pain, n/v Received contact number from for Dimitris Johnsonager ([phone]) pt's nephew. He resides in [place]. He is willing to help with decision making. He was updated on her current and previous hospitalization. He understands cardiology is considering placing a pacemaker and is in agreement with the plan. Discussed possible PPM placement with the pt as well, and she is agreeable, however she may not remember our conversation, she currently does not remember talking to cardiology. Review of Systems Review of Systems: All systems reviewed & are unremarkable except as noted in Subjective Physical Exam Physical Exam: General- WD/WN F in NAD Head- atraumatic Eyes- PERRL, EOMI, anicteric Neck- supple, no JVD Lungs- clear to auscultation bilaterally, no rales/wheezes Heart- slightly bradycardic, regular Abdomen- normal bowel sounds, nondistended, soft, nontender Extremities- no pretibial edema, moves extremities Neuro- alert, able to answer simple questions appropriately however has poor mem ory, speech fluent, no facial asymmetry, moves extremities Skin- warm & dry Results & Data Results & Data Vital Signs (Past 12 Hours) Vital Signs Temp Pulse Pulse Resp BP Pulse Ox O2 Del Method 09/27/23 08:02 Room Air 09/27/23 08:00 36.8 C 79 18 98 Room Air 09/27/23 07:29 59 L 09/27/23 02:51 36.7 C 63 16 127/58 L 97 Room Air 09/27/23 00:11 60 09/26/23 23:13 37 C 60 17 145/75 H 98 Room Air Laboratory Results 09/27/23 09/27/23 09/26/23 Range/Units 07:34 05:54 20:23 WBC 4.48 L (4.8-10.8) K/ul RBC 3.65 L (4.20-5.40) M/uL Hgb 10.3 L (12.0-16.0) g/dl Hct 32.5 L (37.0-47.0) % MCV 89.0 (80.0-100.0) fL MCH 28.2 (25.0-34.0) pg MCHC 31.7 L (32.0-36.0) g/dL RDW Std Deviation 50.2 H (36.4-46.3) fL RDW Coeff of Cyn 15.3 H (11.5-14.5) % Plt Count 179 (130-400) K/uL MPV 11.1 (9.4-12.4) fL Sodium 138 (136-145) mmol/L Potassium 4.1 (3.5-5.1) mmol/L Chloride 107 (98-107) mmol/L Carbon Dioxide 27 (21-32) mmol/L Anion Gap 4 (3-11) BUN 11 (6-23) mg/dl Creatinine 0.48 L (0.6-1.2) mg/dl Est Cr Clr Drug Dosing 90.7 ml/min Est GFR ( Amer) 112.0 ml/min Est GFR (Non-Af Amer) 96.6 ml/min BUN/Creatinine Ratio 22.9 H (10-20) Glucose 91 (70-99(Fasting)) mg/dl POC Glucose 94 128 H (70-99) mg/dl Calcium 8.6 (8.6-10.3) mg/dl Phosphorus 3.4 (2.5-4.9) mg/dl Magnesium 1.8 (1.7-2.4) mg/dl 09/26/23 09/26/23 Range/Units 16:06 11:26 WBC (4.8-10.8) K/ul RBC (4.20-5.40) M/uL Hgb (12.0-16.0) g/dl Hct (37.0-47.0) % MCV (80.0-100.0) fL MCH (25.0-34.0) pg MCHC (32.0-36.0) g/dL RDW Std Deviation (36.4-46.3) fL RDW Coeff of Cyn (11.5-14.5) % Plt Count (130-400) K/uL MPV (9.4-12.4) fL Sodium (136-145) mmol/L Potassium (3.5-5.1) mmol/L Chloride (98-107) mmol/L Carbon Dioxide (21-32) mmol/L Anion Gap (3-11) BUN (6-23) mg/dl Creatinine (0.6-1.2) mg/dl Est Cr Clr Drug Dosing ml/min Est GFR ( Amer) ml/min Est GFR (Non-Af Amer) ml/min BUN/Creatinine Ratio (10-20) Glucose (70-99(Fasting)) mg/dl POC Glucose 114 H 119 H (70-99) mg/dl Calcium (8.6-10.3) mg/dl Phosphorus (2.5-4.9) mg/dl Magnesium (1.7-2.4) mg/dl Medications Administered Current Inpatient Medications Acetaminophen (Acetaminophen 325 Mg Tab) 650 mg PO Q4H PRN PRN Reason: Pain or Fever Stop: 10/25/23 20:44 Last Admin: 09/27/23 07:59 Dose: 650 mg Aspirin (Aspirin 81 Mg Ectab) 81 mg PO DAILY JAMEL Stop: 10/26/23 08:59 Last Admin: 09/27/23 08:00 Dose: 81 mg Atorvastatin Calcium (Atorvastatin 20 Mg Tab) 20 mg PO HS JAMEL Stop: 10/25/23 20:59 Last Admin: 09/26/23 21:18 Dose: 20 mg Clozapine (Clozapine 25 Mg Tab) 75 mg PO HS JAMEL; Protocol Stop: 10/26/23 20:59 Last Admin: 09/26/23 21:16 Dose: 75 mg Cyanocobalamin (Cyanocobalamin (B-12) 500 Mcg Tablet) 1,000 mcg PO DAILY JAMEL Stop: 10/26/23 08:59 Last Admin: 09/27/23 08:00 Dose: 1,000 mcg Dextrose (Dextrose 50% 50 Ml Syringe) 25 - 50 ml IV UD PRN; Protocol PRN Reason: Hypoglycemia Protocol Stop: 10/25/23 20:44 Fluticasone Propionate (Fluticasone Propionate Na Spr 16 Gm Btl) 2 sprays NA DAILY JAMEL Stop: 10/26/23 08:59 Last Admin: 09/27/23 07:56 Dose: 2 sprays Glucagon (Glucagon For Inj 1 Mg Vial) 1 mg SQ UD PRN; Protocol PRN Reason: Hypoglycemia Protocol Stop: 10/25/23 20:44 Glucose (Glucose 10 Tab/Tube) 4 - 8 tab PO UD PRN; Protocol PRN Reason: Hypoglycemia Treatment Stop: 10/25/23 20:44 Glucose (Glucose 40% Gel 15 Gm Tube) 15 - 30 gm PO UD PRN; Protocol PRN Reason: Hypoglycemia Protocol Stop: 10/25/23 20:44 Insulin Aspart (Insulin Aspart Per Unit Charge) 0 units SC ACHS JAMEL Stop: 10/25/23 20:59 Last Admin: 09/27/23 08:02 Dose: Not Given Levothyroxine Sodium (Levothyroxine Sodium 50 Mcg Tablet) 50 mcg PO DAILYBB [facility] Stop: 10/26/23 06:29 Last Admin: 09/27/23 06:20 Dose: 50 mcg Loratadine (Loratadine 10 Mg Tab) 10 mg PO HS PRN PRN Reason: Allergy Symptoms Stop: 10/25/23 20:44 Magnesium Oxide (Magnesium Oxide 400 Mg Tab) 400 mg PO QAM JMAEL Stop: 10/26/23 08:59 Last Admin: 09/27/23 08:01 Dose: 400 mg Methenamine Hippurate (Methenamine Hippurate 1 Gm Tab) 1 gm PO AMHS JAMEL Stop: 09/30/23 20:59 Last Admin: 09/27/23 08:00 Dose: 1 gm Miscellaneous (Carbohydrates For Hypoglycemia ) 15 - 30 gm PO UD PRN PRN Reason: Hypoglycemia Protocol Stop: 10/25/23 20:44 Pantoprazole Sodium (Pantoprazole 40 Mg Tab) 40 mg PO HS [facility] Stop: 10/25/23 20:59 Last Admin: 09/26/23 21:17 Dose: 40 mg Potassium Chloride (Potassium Chloride 10 Meq Tabcr) 10 meq PO BID JAMEL Stop: 10/26/23 08:59 Last Admin: 09/27/23 08:01 Dose: 10 meq Sumatriptan Succinate (Sumatriptan Succinate 100 Mg Tab) 100 mg PO DAILY PRN PRN Reason: Headache Stop: 10/25/23 20:44
--- NOTE | 2023-09-27 13:22 | Cardiology Progress Note ---
Date of Service September 27, 2023 Assessment & Plan (1) Syncope: (2) Sinus bradycardia: Plan Assessment: 73 year old female that resides home alone presented after same day discharge from [facility] rehabilitation for reported syncopal episode found by a friend. Concerns for profound bradycardia and possible SSS. Plan 1. Syncope 2. Bradycardia -No recurrence of syncopal events since admission. -Review of telemetry demonstrates no profound bradycardia, no sinus pauses, no high grade heart block. Lowest HR 50bpm since admission. -Patient does not have a recollection of the event so it is uncertain what exactly happened causing the unresponsive episode prior to presentation -Clozaril has been discontinued which could contribute to bradycardia -Chart review also indicates that a prior visit she had been on metoprolol? Not sure if she was receiving this at [facility]. Question if there was medication error upon patient returning home. Recommend home health follow up to check on medications. -At this time, patient is showing no recurrence of event, and HR have improved. Will hold off on pursing PPM placement at this time. If patient would need to undergo PPM placement, will need to determine who will be patient's POA given patient's cognitive status. -poor memory and recall, not sure that she will do well at home alone Case has been discussed with Dr. Gusman. Further recommendations regarding plan of care as per his assessment. I spent a total of 30 minutes on the date of service in preparation, delivery, documentation of the care provided to the patient excluding any time spent in the performance of separately billed services. GRETA Pagan [facility] Cardiology [facility] Admission and Anticipated Discharge Date Admission Date: September 25, 2023 Supervising Physician Co-Signing Physician Notes Patient seen and personally examined. Assessment as above. Over the past 24 hours in hospital is been no evidence of bradycardia on telemetry. Lowest heart rate 55 bpm with heart rates increasing with activities. No pauses or AV block No distinct indications for pacemaker currently though will maintain on telemetry overnight Will recommend orthostatic blood pressures and ambulation Keep n.p.o. in case further arrhythmias develop to allow possible pacemaker in a.m. May likely defer to event monitor on discharge. Subjective 09/27/23: Patient seen and examined in follow up. Resting comfortably in bed, but awakens to verbal stimuli. Denies any cardiac complaints or concerns. Denies chest pain, pressure, palpitations, no shortness of breath, PND, pre-syncope. syncope or edema. Telemetry reviewed which demonstrates SB/SR rates 50's to 60s. No acute events overnight. Personal review of telemetry demonstrates no evidence of profound bradycardia, no sinus pause, no high grade heart block. Labs, vitals, diagnostics and documentation reviewed. Review of Systems Review of Systems: All systems reviewed & are unremarkable except as noted in HPI & below Physical Exam Constitutional: + frail appearing; no acute distress and not ill appearing Neck: normal visual inspection and trachea midline Respiratory: normal respiratory effort, lungs clear to auscultation Cardiovascular: Rate/Rhythm: regular rate, regular rhythm and + bradycardic (lowest rate 50bpm on telemetry) Heart Sounds: normal S1 and normal S2; no murmur Vessels: dorsalis pedis pulses present; no JVD Extremities: no edema Skin: no rashes, warm and dry Psychiatric: Orientation: alert, oriented to person, oriented to place and cooperative Affect: euthymic affect Results & Data Vital Signs (Past 12 Hours) Vital Signs Temp Pulse Pulse Resp BP Pulse Ox O2 Del Method 09/27/23 11:30 36.5 C 82 20 135/69 96 Room Air 09/27/23 08:02 Room Air 09/27/23 08:00 36.8 C 79 18 98 Room Air 09/27/23 07:29 59 L 09/27/23 02:51 36.7 C 63 16 127/58 L 97 Room Air Laboratory Results CBC 09/27/23 Range/Units 05:54 WBC 4.48 L (4.8-10.8) K/ul RBC 3.65 L (4.20-5.40) M/uL Hgb 10.3 L (12.0-16.0) g/dl Hct 32.5 L (37.0-47.0) % Plt Count 179 (130-400) K/uL Comprehensive Metabolic Panel 09/27/23 Range/Units 05:54 Sodium 138 (136-145) mmol/L Potassium 4.1 (3.5-5.1) mmol/L Chloride 107 (98-107) mmol/L Carbon Dioxide 27 (21-32) mmol/L BUN 11 (6-23) mg/dl Creatinine 0.48 L (0.6-1.2) mg/dl Glucose 91 (70-99(Fasting)) mg/dl Calcium 8.6 (8.6-10.3) mg/dl Intake and Output 09/26/23 09/27/23 09/27/23 22:59 06:59 14:59 Intake Total 350 / 1830 Output Total 100 / 250 0 / 250 Balance 250 / 1580 0 / 1580 Intake: Oral 350 / 830 Output: Urine Amount (Catheter) 100 / 100 0 / 100 External 100 / 100 0 / 100 Other: Other Intake Source sips # Unmeasured Voids 1 Weight 55.9 kg Weight Measurement Method Built in [facility]
[2023-09-28 07:13] LABS: Hematocrit (blood only) 34.2 % (37.0-47.0); Hemoglobin 11.2 g/dl (12.0-16.0); Mean Corpuscular Hemoglobin 28.6 pg (25.0-34.0); Mean Corpuscular Hgb Conc 32.7 g/dL (32.0-36.0); Mean Corpuscular Volume 87.2 fL (80.0-100.0); Mean Platelet Volume 10.8 fL (9.4-12.4); Platelet Count 185 K/uL (130-400); RDW Coefficient of Variation 15.4 % (11.5-14.5); RDW Standard Deviation 49.2 fL (36.4-46.3); Red Blood Count 3.92 M/uL (4.20-5.40)
[2023-09-28 07:28] LABS: BUN Creatinine Ratio 29.6 (10-20); Calcium 9.1 mg/dl (8.6-10.3); Creatinine Clr Calc Pharmacy 78.2 ml/min; Est GFR (African American) 107.7 ml/min; Magnesium 1.8 mg/dl (1.7-2.4); Potassium 3.9 mmol/L (3.5-5.1)
--- NOTE | 2023-09-28 07:41 | History & Physical Bridge Note ---
Date of Service September 28, 2023 History & Physical Bridge Note I have examined the patient, reviewed the History & Physical and in the interval since the performance of the History & Physical I have noted the following changes of clinical significance: Pt with syncope and marked sinus bradycardia-i discussed the procedure and potential risks with the patient's nephew over the phone; he expressed an understanding and agreed to the procedure for the patient.
--- NOTE | 2023-09-28 07:45 | Pre Anesthesia Assessment ---
Date of Service September 28, 2023 Pre Sedation Assessment Vital Signs Temp Pulse Pulse Resp BP Pulse Ox O2 Del Method 09/28/23 07:32 45 L 18 162/67 H 98 Room Air 09/28/23 02:42 36.5 C 52 L 16 147/68 H 97 Room Air 09/27/23 22:35 37.0 C 58 L 18 138/61 98 Room Air 09/27/23 21:56 56 L 09/27/23 19:48 37.0 C 60 18 132/67 98 Room Air 09/27/23 17:16 36.6 C 77 18 142/71 H 97 Room Air 09/27/23 16:17 58 L 09/27/23 11:30 36.5 C 82 20 135/69 96 Room Air 09/27/23 08:02 Room Air 09/27/23 08:00 36.8 C 79 18 98 Room Air Cardiovascular + bradycardic Respiratory normal respiratory effort, lungs clear to auscultation Pre-Sedation Airway Assessment Smoking Status: Never smoker Hx Sleep Apnea: No Short, Thick Neck: No Thyromental Distance: > or= 3.5 Finger Breadths Oral Cavity: + Dental Abnormalities Mallampati Class: II ASA: ASA3 NPO Status Date of Last Intake of Fluids: 09/27/23 Time of Last Intake of Fluids: 20:00 Date of Last Intake of Solid Food: 09/27/23 Time of Last Intake of Solid Foods: 20:00 Procedure Planning Contraindications for Sedation: none Current Medications Reviewed: Yes Notes The planned sedation has been discussed with the patient. Informed Consent was obtained. I have identified the patient, determined the appropriateness of sedation and have assessed the patient immediately prior to the procedure. All medicine(s) and interventions are by my order.
--- NOTE | 2023-09-28 08:07 | Hospitalist Progress Note ---
Date of Service September 28, 2023 Assessment & Plan (1) Weakness: (2) Syncope: Plan: 73 yo female with history of diabetes type 2, hypertension, dyslipidemia, hypothyroidism, brain tumor s/p resection, schizophrenia, migraine, anemia, recurrent UTIs Presenting today after being discharged from [facility] yesterday for weakness and a syncopal episode while at the ER triage area. WEAKNESS, SYNCOPE LIKELY SECONDARY TO ORTHOSTATIC HYPOTENSION,POSSIBLE UNDERLYING SICK SINUS SYNDROME Patient recently admitted to [facility] for pneumonia, respiratory failure s/p intubation, UTI, delirium, stercoral colitis from constipation And was observed to have bradycardia, metoprolol reduced in dose. While at [facility]hab, patient noted to have borderline blood pressure and bradycardia. Amlodipine, lisinopril, metoprolol subsequently discontinued She has been off these medications for a few days now. She was discharged from [facility] yesterday (day prior admission) She now presents with weakness and syncope in the setting of marginal blood pressure and sinus bradycardia in the 50s She has dry oral mucosa and has low sodium indicating dehydration. IV NSS - now stopped TSH wnl, cortisol level pending Had a recent echo done in August 2023 which showed preserved ejection fraction, no significant valvular abnormalities Held clozapine initially on admission as syncope, bradycardia listed as adverse effects - discussed w/ psychiatry - recommend to continue clozapine (pt was previously on higher dose and was discharged on 100) Cardiology consulted - considering PPM 09/26 - Received contact number from for Dimitris Peterson ([phone]) pt's nephew. He resides in [place]. He is willing to help with decision making. He was updated on her current and previous hospitalization. He understands cardiology is considering placing a pacemaker and is in agreement with the plan. Discussed possible PPM placement with the pt as well, and she is agreeable, however she may not remember our conversation, she currently does not remember talking to cardiology. 09/27 Pt is now s/p PPM placement w/ Dr. Pruitt - pending f/u CXR RULE OUT CVA Brain MRI - no acute CVA RULE OUT SEIZURE As a history of brain tumor, status post resection EEG - IMPRESSION: This is an abnormal routine EEG due to generalized background slowing suggestive of a non specific encephalopathy. No epileptiform activity is seen. Acute coronary syndrome unlikely as patient has negative troponin, no chest pain Hypoglycemia ruled out Infection unlikely as urinalysis, chest x-ray negative DIABETES TYPE 2 Insulin sliding scale Hold metformin HYPERTENSION - with marginal blood pressures on admission - now improved after IVF HYPOTHYROIDISM TSH 2.2 BRAIN TUMOR S/P RESECTION SCHIZOPHRENIA Re-Started on clozapine (was discharged on lower dose than her usual actually) during her last admission Initially held clozapine on admission as this may cause bradycardia, syncope - as above, discussed w/ psychiatry - recommend to continue clozapine (pt was previously on higher dose and was discharged on 100) Psychiatry consulted Migraine Chronic anemia Recurrent UTI DVT prophylaxis SCDs for now CODE STATUS Full code as per patient Disposition PT and OT May need to return to acute rehab Admission and Anticipated Discharge Date Admission Date: September 25, 2023 Subjective Pt seen in follow up of syncope, bradycardia Recently admitted - required ICU, intubated (prior to being hospitalized she was in ER and sent home-> then found unresponsive) -> after her prolonged hospitalization discharged to [facility] - and just returned home and felt weak - in ER had syncopal episode Currently laying in bed in NAD Says she feels well but does not remember what happened prior to coming to the hospital, does not remember much of being in rehab either No fever, chills, chest pain, or shortness of breath. no abd. pain, n/v Received contact number from for Dimitris Peterson ([phone]) pt's nephew, yesterday. He resides in [place]. He is willing to help with decision making. He was updated on her current and previous hospitalization. He understands cardiology is considering placing a pacemaker and is in agreement with the plan. Discussed possible PPM placement with the pt as well, and she is agreeable, however she may not remember our conversation, she currently does not remember talking to cardiology. Pt is now s/p PPM placement (09/27) AM. feeling well. CXR pending Review of Systems Review of Systems: All systems reviewed & are unremarkable except as noted in Subjective Physical Exam Physical Exam: General- WD/WN F in NAD Head- atraumatic Eyes- PERRL, EOMI, anicteric Neck- supple, no JVD Lungs- clear to auscultation anteriorly, no rales/wheezes Heart- slightly bradycardic, regular Abdomen- normal bowel sounds, nondistended, soft, nontender Extremities- no pretibial edema, moves extremities Neuro- alert, able to answer simple questions appropriately however has poor memory, speech fluent, no facial asymmetry, moves extremities Skin- warm & dry Results & Data Results & Data Vital Signs (Past 12 Hours) Vital Signs Temp Pulse Pulse Resp BP Pulse Ox O2 Del Method 09/28/23 07:32 45 L 18 162/67 H 98 Room Air 09/28/23 02:42 36.5 C 52 L 16 147/68 H 97 Room Air 09/27/23 22:35 37.0 C 58 L 18 138/61 98 Room Air 09/27/23 21:56 56 L Laboratory Results 09/28/23 09/28/23 09/27/23 Range/Units 06:54 06:16 20:50 WBC 4.00 L (4.8-10.8) K/ul RBC 3.92 L (4.20-5.40) M/uL Hgb 11.2 L (12.0-16.0) g/dl Hct 34.2 L (37.0-47.0) % MCV 87.2 (80.0-100.0) fL MCH 28.6 (25.0-34.0) pg MCHC 32.7 (32.0-36.0) g/dL RDW Std Deviation 49.2 H (36.4-46.3) fL RDW Coeff of Cyn 15.4 H (11.5-14.5) % Plt Count 185 (130-400) K/uL MPV 10.8 (9.4-12.4) fL Sodium 139 (136-145) mmol/L Potassium 3.9 (3.5-5.1) mmol/L Chloride 107 (98-107) mmol/L Carbon Dioxide 28 (21-32) mmol/L Anion Gap 4 (3-11) BUN 16 (6-23) mg/dl Creatinine 0.54 L (0.6-1.2) mg/dl Est Cr Clr Drug Dosing 78.2 ml/min Est GFR ( Amer) 107.7 ml/min Est GFR (Non-Af Amer) 93.0 ml/min BUN/Creatinine Ratio 29.6 H (10-20) Glucose 94 (70-99(Fasting)) mg/dl POC Glucose 99 117 H (70-99) mg/dl Calcium 9.1 (8.6-10.3) mg/dl Phosphorus 4.0 (2.5-4.9) mg/dl Magnesium 1.8 (1.7-2.4) mg/dl 09/27/23 09/27/23 Range/Units 16:36 11:25 WBC (4.8-10.8) K/ul RBC (4.20-5.40) M/uL Hgb (12.0-16.0) g/dl Hct (37.0-47.0) % MCV (80.0-100.0) fL MCH (25.0-34.0) pg MCHC (32.0-36.0) g/dL RDW Std Deviation (36.4-46.3) fL RDW Coeff of Cyn (11.5-14.5) % Plt Count (130-400) K/uL MPV (9.4-12.4) fL Sodium (136-145) mmol/L Potassium (3.5-5.1) mmol/L Chloride (98-107) mmol/L Carbon Dioxide (21-32) mmol/L Anion Gap (3-11) BUN (6-23) mg/dl Creatinine (0.6-1.2) mg/dl Est Cr Clr Drug Dosing ml/min Est GFR ( Amer) ml/min Est GFR (Non-Af Amer) ml/min BUN/Creatinine Ratio (10-20) Glucose (70-99(Fasting)) mg/dl POC Glucose 104 H 148 H (70-99) mg/dl Calcium (8.6-10.3) mg/dl Phosphorus (2.5-4.9) mg/dl Magnesium (1.7-2.4) mg/dl Medications Administered Current Inpatient Medications Acetaminophen (Acetaminophen 325 Mg Tab) 650 mg PO Q4H PRN PRN Reason: Pain or Fever Stop: 10/25/23 20:44 Last Admin: 09/27/23 21:14 Dose: 650 mg Aspirin (Aspirin 81 Mg Ectab) 81 mg PO DAILY JAMEL Stop: 10/26/23 08:59 Last Admin: 09/27/23 08:00 Dose: 81 mg Atorvastatin Calcium (Atorvastatin 20 Mg Tab) 20 mg PO HS JAMEL Stop: 10/25/23 20:59 Last Admin: 09/27/23 21:16 Dose: 20 mg Clozapine (Clozapine 25 Mg Tab) 75 mg PO HS JAMEL; Protocol Stop: 10/26/23 20:59 Last Admin: 09/27/23 21:16 Dose: 75 mg Cyanocobalamin (Cyanocobalamin (B-12) 500 Mcg Tablet) 1,000 mcg PO DAILY JAMEL Stop: 10/26/23 08:59 Last Admin: 09/27/23 08:00 Dose: 1,000 mcg Dextrose (Dextrose 50% 50 Ml Syringe) 25 - 50 ml IV UD PRN; Protocol PRN Reason: Hypoglycemia Protocol Stop: 10/25/23 20:44 Fluticasone Propionate (Fluticasone Propionate Na Spr 16 Gm Btl) 2 sprays NA DAILY JAMEL Stop: 10/26/23 08:59 Last Admin: 09/27/23 07:56 Dose: 2 sprays Glucagon (Glucagon For Inj 1 Mg Vial) 1 mg SQ UD PRN; Protocol PRN Reason: Hypoglycemia Protocol Stop: 10/25/23 20:44 Glucose (Glucose 10 Tab/Tube) 4 - 8 tab PO UD PRN; Protocol PRN Reason: Hypoglycemia Treatment Stop: 10/25/23 20:44 Glucose (Glucose 40% Gel 15 Gm Tube) 15 - 30 gm PO UD PRN; Protocol PRN Reason: Hypoglycemia Protocol Stop: 10/25/23 20:44 Insulin Aspart (Insulin Aspart Per Unit Charge) 0 units SC ACHS [facility] Stop: 10/25/23 20:59 Last Admin: 09/28/23 07:52 Dose: Not Given Levothyroxine Sodium (Levothyroxine Sodium 50 Mcg Tablet) 50 mcg PO DAILYBB [facility] Stop: 10/26/23 06:29 Last Admin: 09/28/23 06:23 Dose: 50 mcg Loratadine (Loratadine 10 Mg Tab) 10 mg PO HS PRN PRN Reason: Allergy Symptoms Stop: 10/25/23 20:44 Magnesium Oxide (Magnesium Oxide 400 Mg Tab) 400 mg PO QAM JAMEL Stop: 10/26/23 08:59 Last Admin: 09/27/23 08:01 Dose: 400 mg Methenamine Hippurate (Methenamine Hippurate 1 Gm Tab) 1 gm PO AMHS JAMEL Stop: 09/30/23 20:59 Last Admin: 09/27/23 21:16 Dose: 1 gm Miscellaneous (Carbohydrates For Hypoglycemia ) 15 - 30 gm PO UD PRN PRN Reason: Hypoglycemia Protocol Stop: 10/25/23 20:44 Pantoprazole Sodium (Pantoprazole 40 Mg Tab) 40 mg PO HS JAMEL Stop: 10/25/23 20:59 Last Admin: 09/27/23 21:16 Dose: 40 mg Potassium Chloride (Potassium Chloride 10 Meq Tabcr) 10 meq PO BID JAMEL Stop: 10/26/23 08:59 Last Admin: 09/27/23 21:15 Dose: 10 meq Sumatriptan Succinate (Sumatriptan Succinate 100 Mg Tab) 100 mg PO DAILY PRN PRN Reason: Headache Stop: 10/25/23 20:44
--- NOTE | 2023-09-28 08:58 | Post Anesthesia Assessment ---
Date of Service September 28, 2023 Post Sedation Assessment Vital Signs Temp Pulse Pulse Resp BP Pulse Ox O2 Del Method 09/28/23 07:32 45 L 18 162/67 H 98 Room Air 09/28/23 02:42 36.5 C 52 L 16 147/68 H 97 Room Air 09/27/23 22:35 37.0 C 58 L 18 138/61 98 Room Air 09/27/23 21:56 56 L 09/27/23 19:48 37.0 C 60 18 132/67 98 Room Air 09/27/23 17:16 36.6 C 77 18 142/71 H 97 Room Air 09/27/23 16:17 58 L 09/27/23 11:30 36.5 C 82 20 135/69 96 Room Air Recovery Score Activity: Moves 4 extremities Respiration: Deep Breath/Cough Circulation: +/-20% PreAnes Value Consciousness: Fully Awake Oxygen Saturation: > 92% On Room Air Discharge Sedation Level of Care: Fast Track Phase II Post Sedation Plan On clinical assessment, the patient appears to have tolerated the sedation without complications. Patient is recovering as anticipated. Patient will continue to be monitored by nursing and may be discharged when sedation discharge criteria are met per below protocol. Upon Completions of procedure up to 15 minutes continue every 5 minute vital signs and the P.A.R. score; then discharge to a Phase I or Fast Track to Phase II per the following guidelines: * Discharge Patient to appropriate Phase II area if PAR is 8 or greater or return to pre- procedure baseline. The post - procedure orders will be as directed. * If PAR score is less than 8 or not return to pre-procedure baseline then patient will follow Phase I monitoring till PAR is reached for Phase II. The Phase I may be done in procedure room or may call to secure a Phase I area. * If naloxone or flumazenil are used for reversal, hold in Phase I for continued monitoring from when last reversal dose was given for a minimum of 60 minutes or longer pending the nurse and/or physician discretion of patient condition before discharge to Phase II. Please call the Sedation Physician to re-evaluate and complete post-note for discharge to Phase II area. Do NOT discharge from procedure sedation or Phase 1 until post- sedation evaluation note is complete by procedure /sedation MD Sedation Discharge Instructions to be given to the patient at discharge to home.
[2023-09-28] MEDS: WATER, STERILE FOR INJ 10 ML VIAL ONE (08:59)
[2023-09-28] MEDS: LIDOCAINE 1% LOCAL 20 ML VIAL ONE (08:59)
[2023-09-28] MEDS: BUPIVACAINE 0.25% PF 30 ML VIAL ONE (08:59)
[2023-09-28] MEDS: diphenhydrAMINE 50 MG/ML VIAL ONE (08:59)
[2023-09-28] MEDS: VANCOMYCIN HCL 1000MG/20ML VIAL ONE (08:59)
[2023-09-28] MEDS: MIDAZOLAM HCL 5 MG/ML 1 ML VIAL ONE (09:00)
[2023-09-28] MEDS: NITROGLYCERIN/D5W 100MCG/ML 20ML SYR ONE (09:00)
[2023-09-28] MEDS: fentaNYL citrate PF 100 MCG/2 ML VIAL ONE (09:00)
--- NOTE | 2023-09-28 10:40 | XRay Report ---
XR chest 1V portable HISTORY: Status post pacemaker placement. COMPARISON: Chest 09/25/2023. FINDINGS: There is a left-sided dual-chamber pacemaker. The leads appear intact. No pneumothorax. No pleural effusions. The heart remains mildly enlarged. No evidence for pulmonary edema. No acute fract ures. Calcifications within the aortic knob. IMPRESSION: Interval placement of a left-sided dual-chamber pacemaker. No pneumothorax. ACT 112: Negative or not required by law. Electronically signed by: Doe Harper M.D. 09/28/2023 10:38 AM
[2023-09-28] MEDS: POLYETHYLENE (MIRALAX) 17 GM PACK PO SCH (11:45)
[2023-09-28] MEDS: DOCUSATE SODIUM 100 MG CAP PO SCH (11:45)
--- NOTE | 2023-09-28 12:50 | Cardiology Progress Note ---
Date of Service September 28, 2023 Assessment & Plan (1) Syncope: (2) Sinus bradycardia: Plan Assessment: 73 year old female that resides home alone presented after same day discharge from [facility] for reported syncopal episode found by a friend. Concerns for profound bradycardia and possible SSS. Plan 1. Syncope 2. Bradycardia -No recurrence of syncopal events since admission. -Review of telemetry demonstrates no profound bradycardia, no sinus pauses, no high grade heart block. Lowest HR 50bpm since admission. -Patient does not have a recollection of the event so it is uncertain what exactly happened causing the unresponsive episode prior to presentation -Clozaril has been indicated long-term which could contribute to bradycardia 09/28/2023 Telemetry overnight with intermittent bradycardia heart rates in the 40s. Messages relayed from psychiatrist noting ongoing demand for Clozaril with past catatonia Patient was referred for dual-chamber pacemaker this morning with procedure performed uneventfully Plan to gradually increase activity Reinterrogate device in a.m. Follow-up blood pressure. Admission and Anticipated Discharge Date Admission Date: September 25, 2023 Subjective Patient seen and examined pre and post pacemaker insertion No acute complaints. Rhythm now being atrially paced with normal AV conduction at 60 bpm Pacemaker incision site clean, no hematoma Review of Systems Review of Systems: Unobtainable due to cognitive status Physical Exam Constitutional: WD/WN, vitals as above no acute distress Eyes: PERRL, conjunctivae normal, anicteric sclerae ENMT: external ear and nose normal, oropharynx normal Neck: trachea midline, no thyromegaly Respiratory: normal respiratory effort, lungs clear to auscultation Cardiovascular: Rate/Rhythm: regular rate (Atrial paced) Vessels: no JVD Extremities: no edema Chest (Breasts): Chest: + pacemaker Gastrointestinal (Abdomen): normal bowel sounds, soft, nontender, no hepatosplenomegaly Musculoskeletal: no cyanosis or clubbing, extremities motor strength 5/5 Results & Data Vital Signs (Past 12 Hours) Vital Signs Temp Pulse Pulse Resp BP BP Pulse Ox 09/28/23 10:44 60 17 184/85 H 100 09/28/23 10:26 63 09/28/23 10:00 63 17 169/88 H 98 09/28/23 09:39 36.8 C 60 17 164/83 H 98 09/28/23 09:18 63 18 150/76 H 98 09/28/23 09:05 60 18 150/77 H 98 09/28/23 07:32 45 L 18 162/67 H 98 09/28/23 07:30 49 L 09/28/23 02:42 36.5 C 52 L 16 147/68 H 97 O2 Del Method 09/28/23 10:44 Room Air 09/28/23 10:26 09/28/23 10:00 Room Air 09/28/23 09:39 Room Air 09/28/23 09:18 Room Air 09/28/23 09:05 Room Air 09/28/23 07:32 Room Air 09/28/23 07:30 09/28/23 02:42 Room Air Laboratory Results Laboratory Results - last 24 hr 09/27/23 09/27/23 09/28/23 16:36 20:50 06:16 WBC 4.00 L RBC 3.92 L Hgb 11.2 L Hct 34.2 L MCV 87.2 MCH 28.6 MCHC 32.7 RDW Std Deviation 49.2 H RDW Coeff of Cyn 15.4 H Plt Count 185 MPV 10.8 Sodium 139 Potassium 3.9 Chloride 107 Carbon Dioxide 28 Anion Gap 4 BUN 16 Creatinine 0.54 L Est Cr Clr Drug Dosing 78.2 Est GFR ( Amer) 107.7 Est GFR (Non-Af Amer) 93.0 BUN/Creatinine Ratio 29.6 H Glucose 94 POC Glucose 104 H 117 H Calcium 9.1 Phosphorus 4.0 Magnesium 1.8 09/28/23 09/28/23 06:54 11:29 WBC RBC Hgb Hct MCV MCH MCHC RDW Std Deviation RDW Coeff of Cyn Plt Count MPV Sodium Potassium Chloride Carbon Dioxide Anion Gap BUN Creatinine Est Cr Clr Drug Dosing Est GFR ( Amer) Est GFR (Non-Af Amer) BUN/Creatinine Ratio Glucose POC Glucose 99 96 Calcium Phosphorus Magnesium
--- NOTE | 2023-09-28 14:32 | Psychiatric Progress Note ---
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 I have never seen her doing as well as she is now with good interaction, good eye contact, and bright affect. I know the medical staff are concerned about the bradycardia, but I worry that stopping the clozapine will force her to retreat back into a catatonia which may end her life. The dizziness may be attributed to her deconditioning from spending so much time in bed over the last month or 2. 09/28/2023: Patient seems to be recovering from the surgical procedure fine. I am not seeing any evidence of catatonia at the 75 mg dose of clozapine, but it is still pretty early. Her mood seems pretty good. (1) Schizophrenia: (2) Major neurocognitive disorder: Plan I discussed the case with the attending and included the lithographic etcher and cardiology nurse practitioner in the text. If at all possible we need to try to continue the clozapine because it has been a life saver for this lady. We could try going down to 75 mg, but there is a risk that this will cause her to become more catatonic. I do not feel she is able to make decisions about her care because of her disorientation, poor memory, and confusion. Last time she was here, there were recommendations for guardianship, but I do not know where that led. 09/28/2023: We will continue to follow. Now that she has the pacemaker, it may be possible to increase the clozapine up to 100 mg again. I just worry about her going back into a catatonia because that made her bed ridden for several weeks. I am not worried about mood or suicidal thoughts. She is still very confused, however. She is still not able to understand things well enough to sign legal documents such as a power of vascular radiologist. At her last hospitalization, there was talk of pursuing guardianship and this should still move forward. Today I spent about 40 minutes on the case. This included meeting with the patient, reviewing the chart, discussing the case with the nurse, documentation, and texting with the medical staff. Suicide Risk Level Suicide Risk Level: Low (q15 min observation checks) Interval History Identifying Information June is a 72-year-old female with a past psychiatric history of schizophrenia and has been on Clozaril for decades who admitted with presumed sepsis. She was medically stabilized but was catatonic and eventually, once clozapine was titrated up to a reasonable dose, improved. She also had a urinary tract infection at that time. Eventually she was able to transition to a rehab and discharged to her home and then was brought back to our hospital within 24 hours. She had had some dizziness and bradycardia. The medical staff are concerned that the clozapine could be possibly contributing to this. I was asked to meet with her to see if there is any other recommendations we can make. I was also asked whether or not she can consent for a pacemaker. Chief Complaint "I am not sure why I am here." Subjective Subjective Today I met with the patient, reviewed the chart, and discussed the case with the nurse on duty. I also discussed the case with the psychiatric nurse liaison. Janice is in our hospital due to concerns of syncope and bradycardia. When I came by to see her at this afternoon, she had recently had a pacemaker placed. Patient had been n.p.o. and was hungry to have some lunch. She said that she felt well and her mood was good. She complained of some left arm pain that was likely related to her left shoulder and the pacer placement. She denied any suicidal thoughts. She said that she slept well last night. Procedures Performed Operation Date: 09/28/23 07:30 Actual Procedures p Pacer with A/V Leads (Dual) - Jeanette Pruitt DO s Bundle of his Recording - Jeanette Pruitt DO Physical Exam Psychiatric Patient was alert but still very confused. She was somewhat disheveled and looked a little bit more lidia than I had seen her in the past. Eye contact was fair. Speech was normal. Mood was described as good, but affect was restricted. Thought process is still confused. Superficially she is logical. There was no evidence of any hallucinations or delusions. When I met with her she denied suicidal or homicidal thoughts. Memory and concentration are poor. No abnormal movements were seen. I did not evaluate her gait. Insight and judgment are poor. Vital Signs (Past 24 Hours) Last Vital Signs Temp 36.8 C 09/28/23 09:39 Pulse 60 09/28/23 10:44 Resp 17 09/28/23 10:44 BP 184/85 H 09/28/23 10:44 Pulse Ox 100 09/28/23 10:44 O2 Del Method Room Air 09/28/23 10:44 Results & Data ([facility]) Laboratory Results Laboratory Results - last 24 hr 09/27/23 09/27/23 09/28/23 16:36 20:50 06:16 WBC 4.00 L RBC 3.92 L Hgb 11.2 L Hct 34.2 L MCV 87.2 MCH 28.6 MCHC 32.7 RDW Std Deviation 49.2 H RDW Coeff of Cyn 15.4 H Plt Count 185 MPV 10.8 Sodium 139 Potassium 3.9 Chloride 107 Carbon Dioxide 28 Anion Gap 4 BUN 16 Creatinine 0.54 L Est Cr Clr Drug Dosing 78.2 Est GFR ( Amer) 107.7 Est GFR (Non-Af Amer) 93.0 BUN/Creatinine Ratio 29.6 H Glucose 94 POC Glucose 104 H 117 H Calcium 9.1 Phosphorus 4.0 Magnesium 1.8 09/28/23 09/28/23 06:54 11:29 WBC RBC Hgb Hct MCV MCH MCHC RDW Std Deviation RDW Coeff of Cyn Plt Count MPV Sodium Potassium Chloride Carbon Dioxide Anion Gap BUN Creatinine Est Cr Clr Drug Dosing Est GFR ( Amer) Est GFR (Non-Af Amer) BUN/Creatinine Ratio Glucose POC Glucose 99 96 Calcium Phosphorus Magnesium Current Inpatient Medications Current Inpatient Medications: Current Inpatient Medications Acetaminophen (Acetaminophen 325 Mg Tab) 650 mg PO Q4H PRN PRN Reason: Pain or Fever Stop: 10/25/23 20:44 Last Admin: 09/27/23 21:14 Dose: 650 mg Aspirin (Aspirin 81 Mg Ectab) 81 mg PO DAILY JAMEL Stop: 10/26/23 08:59 Last Admin: 09/28/23 10:22 Dose: 81 mg Atorvastatin Calcium (Atorvastatin 20 Mg Tab) 20 mg PO HS JAMEL Stop: 10/25/23 20:59 Last Admin: 09/27/23 21:16 Dose: 20 mg Clozapine (Clozapine 25 Mg Tab) 75 mg PO HS JAMEL; Protocol Stop: 10/26/23 20:59 Last Admin: 09/27/23 21:16 Dose: 75 mg Cyanocobalamin (Cyanocobalamin (B-12) 500 Mcg Tablet) 1,000 mcg PO DAILY JAMEL Stop: 10/26/23 08:59 Last Admin: 09/28/23 10:21 Dose: 1,000 mcg Dextrose (Dextrose 50% 50 Ml Syringe) 25 - 50 ml IV UD PRN; Protocol PRN Reason: Hypoglycemia Protocol Stop: 10/25/23 20:44 Docusate Sodium (Docusate Sodium 100 Mg Cap) 100 mg PO BID JAMEL Stop: 10/28/23 10:29 Last Admin: 09/28/23 11:45 Dose: 100 mg Fluticasone Propionate (Fluticasone Propionate Na Spr 16 Gm Btl) 2 sprays NA DAILY JAMEL Stop: 10/26/23 08:59 Last Admin: 09/28/23 10:22 Dose: 2 sprays Glucagon (Glucagon For Inj 1 Mg Vial) 1 mg SQ UD PRN; Protocol PRN Reason: Hypoglycemia Protocol Stop: 10/25/23 20:44 Glucose (Glucose 10 Tab/Tube) 4 - 8 tab PO UD PRN; Protocol PRN Reason: Hypoglycemia Treatment Stop: 10/25/23 20:44 Glucose (Glucose 40% Gel 15 Gm Tube) 15 - 30 gm PO UD PRN; Protocol PRN Reason: Hypoglycemia Protocol Stop: 10/25/23 20:44 Insulin Aspart (Insulin Aspart Per Unit Charge) 0 units SC ACHS JMAEL Stop: 10/25/23 20:59 Last Admin: 09/28/23 11:46 Dose: Not Given Levothyroxine Sodium (Levothyroxine Sodium 50 Mcg Tablet) 50 mcg PO DAILYBB [facility] Stop: 10/26/23 06:29 Last Admin: 09/28/23 06:23 Dose: 50 mcg Loratadine (Loratadine 10 Mg Tab) 10 mg PO HS PRN PRN Reason: Allergy Symptoms Stop: 10/25/23 20:44 Magnesium Oxide (Magnesium Oxide 400 Mg Tab) 400 mg PO QAM JAMEL Stop: 10/26/23 08:59 Last Admin: 09/28/23 10:22 Dose: 400 mg Methenamine Hippurate (Methenamine Hippurate 1 Gm Tab) 1 gm PO AMHS JAMEL Stop: 09/30/23 20:59 Last Admin: 09/28/23 10:21 Dose: 1 gm Miscellaneous (Carbohydrates For Hypoglycemia ) 15 - 30 gm PO UD PRN PRN Reason: Hypoglycemia Protocol Stop: 10/25/23 20:44 Pantoprazole Sodium (Pantoprazole 40 Mg Tab) 40 mg PO HS [facility] Stop: 10/25/23 20:59 Last Admin: 09/27/23 21:16 Dose: 40 mg Polyethylene Glycol (Polyethylene (Miralax) 17 Gm Pack) 17 gm PO BID JAMEL Stop: 10/28/23 10:14 Last Admin: 09/28/23 11:45 Dose: 17 gm Potassium Chloride (Potassium Chloride 10 Meq Tabcr) 10 meq PO BID [facility] Stop: 10/26/23 08:59 Last Admin: 09/28/23 10:21 Dose: 10 meq Sumatriptan Succinate (Sumatriptan Succinate 100 Mg Tab) 100 mg PO DAILY PRN PRN Reason: Headache Stop: 10/25/23 20:44
--- NOTE | 2023-09-28 16:13 | Electrocardiogram Report ---
Test Reason : Blood Pressure : / mmHG Vent. Rate : 056 BPM Atrial Rate : 056 BPM P-R Int : 110 ms QRS Dur : 082 ms QT Int : 454 ms P-R-T Axes : 050 011 015 degrees QTc Int : 438 ms Sinus bradycardia with short WI Otherwise normal ECG When compared with ECG of 25-SEP-2023 14:33, No significant change was found Confirmed by Austin Barry ([id number]) on 09/28/2023 4:12:51 PM Referred By: REFERRED SELF Confirmed By:Austin Barry
--- NOTE | 2023-09-28 16:19 | Electrocardiogram Report ---
Test Reason : Blood Pressure : / mmHG Vent. Rate : 063 BPM Atrial Rate : 063 BPM P-R Int : 164 ms QRS Dur : 076 ms QT Int : 428 ms P-R-T Axes : 050 017 014 degrees QTc Int : 437 ms Atrial-paced rhythm Septal infarct , age undetermined Abnormal ECG When compared with ECG of 28-SEP-2023 05:22, (unconfirmed) Electronic atrial pacemaker has replaced Sinus rhythm Septal infarct is now Present Confirmed by Austin Barry ([id number]) on 09/28/2023 4:18:49 PM Referred By: REFERRED SELF Confirmed By:Austin Barry
[2023-09-29 06:57] LABS: Hematocrit (blood only) 30.7 % (37.0-47.0); Hemoglobin 10.1 g/dl (12.0-16.0); Mean Corpuscular Hemoglobin 28.8 pg (25.0-34.0); Mean Corpuscular Hgb Conc 32.9 g/dL (32.0-36.0); Mean Corpuscular Volume 87.5 fL (80.0-100.0); Mean Platelet Volume 10.6 fL (9.4-12.4); Platelet Count 180 K/uL (130-400); RDW Coefficient of Variation 15.2 % (11.5-14.5); RDW Standard Deviation 48.8 fL (36.4-46.3); Red Blood Count 3.51 M/uL (4.20-5.40); White Blood Count 5.29 K/ul (4.8-10.8)
[2023-09-29 07:50] LABS: BUN Creatinine Ratio 34.1 (10-20); Calcium 8.8 mg/dl (8.6-10.3); Creatinine Clr Calc Pharmacy 102.7 ml/min; Est GFR (Non-African American) 101.8 ml/min; Magnesium 1.8 mg/dl (1.7-2.4); Phosphorus 3.9 mg/dl (2.5-4.9); Potassium 4.1 mmol/L (3.5-5.1)
--- NOTE | 2023-09-29 08:22 | Hospitalist Progress Note ---
Date of Service September 29, 2023 Assessment & Plan (1) Weakness: (2) Syncope: Plan: 73 yo female with history of diabetes type 2, hypertension, dyslipidemia, hypothyroidism, brain tumor s/p resection, schizophrenia, migraine, anemia, recurrent UTIs Presenting today after [facility] for weakness and a syncopal episode while at the ER triage area. WEAKNESS, SYNCOPE LIKELY SECONDARY TO ORTHOSTATIC HYPOTENSION,POSSIBLE UNDERLYING SICK SINUS SYNDROME Patient recently admitted to [facility] for pneumonia, respiratory failure s/p intubation, UTI, delirium, stercoral colitis from constipation And was observed to have bradycardia, metoprolol reduced in dose. While at [facility] rehab, patient noted to have borderline blood pressure and bradycardia. Amlodipine, lisinopril, metoprolol subsequently discontinued She has been off these medications for a few days now. She was discharged from [facility] rehab day prior admission She presented with weakness and syncope in the setting of marginal blood press ure and sinus bradycardia in the 50s She had dry oral mucosa and low sodium indicating dehydration. IV NSS - now stopped TSH wnl, cortisol level 12.58 wnl Had a recent echo done in August 2023 which showed preserved ejection fraction, no significant valvular abnormalities Held clozapine initially on admission as syncope, bradycardia listed as adverse effects - discussed w/ psychiatry - recommend to continue clozapine (pt was previously on higher dose and was discharged on 100) Cardiology consulted - considering PPM 09/26 - Received contact number from for Dimitris Peterson ([phone]) pt's nephew. He resides in [place]. He is willing to help with decision making. He was updated on her current and previous hospitalization. He understands cardiology is considering placing a pacemaker and is in agreement with the plan. Discussed possible PPM placement with the pt as well, and she is agreeable, however she may not remember our conversation, she currently does not remember talking to cardiology. 09/27 Pt is now s/p PPM placement w/ Dr. Pruitt RULE OUT CVA Brain MRI - no acute CVA RULE OUT SEIZURE As a history of brain tumor, status post resection EEG - IMPRESSION: This is an abnormal routine EEG due to generalized background slowing suggestive of a non specific encephalopathy. No epileptiform activity is seen. Acute coronary syndrome unlikely as patient has negative troponin, no chest pain Hypoglycemia ruled out Infection unlikely as urinalysis, chest x-ray negative DIABETES TYPE 2 Insulin sliding scale Hold metformin HYPERTENSION - with marginal blood pressures on admission - now improved after IVF HYPOTHYROIDISM TSH 2.2 BRAIN TUMOR S/P RESECTION SCHIZOPHRENIA Re-Started on clozapine (was discharged on lower dose than her usual actually) during her last admission Initially held clozapine on admission as this may cause bradycardia, syncope - as above, discussed w/ psychiatry - recommend to continue clozapine (pt was previously on higher dose and was discharged on 100) Psychiatry consulted Migraine Chronic anemia Recurrent UTI DVT prophylaxis SCDs for now CODE STATUS Full code as per patient Disposition PT and OT May need to return to acute rehab Admission and Anticipated Discharge Date Admission Date: September 25, 2023 Subjective Pt seen in follow up of syncope, bradycardia Recently admitted - required ICU, intubated (prior to being hospitalized she was in ER and sent home-> then found unresponsive) -> after her prolonged hospitalization discharged to [facility] - and just returned home and felt weak - in ER had syncopal episode Currently laying in bed in NAD Says she feels well but does not remember what happened prior to coming to the hospital, does not remember much of being in rehab either No fever, chills, chest pain, or shortness of breath. no abd. pain, n/v Received contact number from for Dimitris Peterson ([phone]) pt's nephew. He resides in [place]. He is willing to help with decision making. Pt is now s/p PPM placement (09/27) AM. feeling well. Review of Systems Review of Systems: All systems reviewed & are unremarkable except as noted in Subjective Physical Exam Physical Exam: General- WD/WN F in NAD Head- atraumatic Eyes- PERRL, EOMI, anicteric Neck- supple, no JVD Lungs- clear to auscultation anteriorly, no rales/wheezes Heart- rrr Abdomen- normal bowel sounds, nondistended, soft, nontender Extremities- no pretibial edema, moves extremities Neuro- alert, able to answer simple questions appropriately however has poor memory, speech fluent, no facial asymmetry, moves extremities Skin- warm & dry Results & Data Results & Data Vital Signs (Past 12 Hours) Vital Signs Temp Pulse Pulse Resp BP Pulse Ox O2 Del Method 09/29/23 05:46 62 09/28/23 23:48 37.1 C 65 17 155/77 H 97 Room Air 09/28/23 21:56 61 Laboratory Results 09/29/23 09/29/23 09/28/23 Range/Units 07:28 05:56 20:58 WBC 5.29 (4.8-10.8) K/ul RBC 3.51 L (4.20-5.40) M/uL Hgb 10.1 L (12.0-16.0) g/dl Hct 30.7 L (37.0-47.0) % MCV 87.5 (80.0-100.0) fL MCH 28.8 (25.0-34.0) pg MCHC 32.9 (32.0-36.0) g/dL RDW Std Deviation 48.8 H (36.4-46.3) fL RDW Coeff of Cyn 15.2 H (11.5-14.5) % Plt Count 180 (130-400) K/uL MPV 10.6 (9.4-12.4) fL Sodium 137 (136-145) mmol/L Potassium 4.1 (3.5-5.1) mmol/L Chloride 104 (98-107) mmol/L Carbon Dioxide 28 (21-32) mmol/L Anion Gap 5 (3-11) BUN 14 (6-23) mg/dl Creatinine 0.41 L (0.6-1.2) mg/dl Est Cr Clr Drug Dosing 102.7 ml/min Est GFR ( Amer) 118.0 ml/min Est GFR (Non-Af Amer) 101.8 ml/min BUN/Creatinine Ratio 34.1 H (10-20) Glucose 109 H (70-99(Fasting)) mg/dl POC Glucose 110 H 112 H (70-99) mg/dl Calcium 8.8 (8.6-10.3) mg/dl Phosphorus 3.9 (2.5-4.9) mg/dl Magnesium 1.8 (1.7-2.4) mg/dl 09/28/23 09/28/23 Range/Units 16:33 11:29 WBC (4.8-10.8) K/ul RBC (4.20-5.40) M/uL Hgb (12.0-16.0) g/dl Hct (37.0-47.0) % MCV (80.0-100.0) fL MCH (25.0-34.0) pg MCHC (32.0-36.0) g/dL RDW Std Deviation (36.4-46.3) fL RDW Coeff of Cyn (11.5-14.5) % Plt Count (130-400) K/uL MPV (9.4-12.4) fL Sodium (136-145) mmol/L Potassium (3.5-5.1) mmol/L Chloride (98-107) mmol/L Carbon Dioxide (21-32) mmol/L Anion Gap (3-11) BUN (6-23) mg/dl Creatinine (0.6-1.2) mg/dl Est Cr Clr Drug Dosing ml/min Est GFR ( Amer) ml/min Est GFR (Non-Af Amer) ml/min BUN/Creatinine Ratio (10-20) Glucose (70-99(Fasting)) mg/dl POC Glucose 101 H 96 (70-99) mg/dl Calcium (8.6-10.3) mg/dl Phosphorus (2.5-4.9) mg/dl Magnesium (1.7-2.4) mg/dl Medications Administered Current Inpatient Medications Acetaminophen (Acetaminophen 325 Mg Tab) 650 mg PO Q4H PRN PRN Reason: Pain or Fever Stop: 10/25/23 20:44 Last Admin: 09/29/23 03:51 Dose: 650 mg Aspirin (Aspirin 81 Mg Ectab) 81 mg PO DAILY JAMEL Stop: 10/26/23 08:59 Last Admin: 09/29/23 08:15 Dose: 81 mg Atorvastatin Calcium (Atorvastatin 20 Mg Tab) 20 mg PO HS JAMEL Stop: 10/25/23 20:59 Last Admin: 09/28/23 20:55 Dose: 20 mg Clozapine (Clozapine 25 Mg Tab) 75 mg PO HS JAMEL; Protocol Stop: 10/26/23 20:59 Last Admin: 09/28/23 20:56 Dose: 75 mg Cyanocobalamin (Cyanocobalamin (B-12) 500 Mcg Tablet) 1,000 mcg PO DAILY JAMEL Stop: 10/26/23 08:59 Last Admin: 09/29/23 08:15 Dose: 1,000 mcg Dextrose (Dextrose 50% 50 Ml Syringe) 25 - 50 ml IV UD PRN; Protocol PRN Reason: Hypoglycemia Protocol Stop: 10/25/23 20:44 Docusate Sodium (Docusate Sodium 100 Mg Cap) 100 mg PO BID [facility] Stop: 10/28/23 10:29 Last Admin: 09/29/23 08:16 Dose: 100 mg Fluticasone Propionate (Fluticasone Propionate Na Spr 16 Gm Btl) 2 sprays NA DAILY JAMEL Stop: 10/26/23 08:59 Last Admin: 09/29/23 08:17 Dose: 2 sprays Glucagon (Glucagon For Inj 1 Mg Vial) 1 mg SQ UD PRN; Protocol PRN Reason: Hypoglycemia Protocol Stop: 10/25/23 20:44 Glucose (Glucose 10 Tab/Tube) 4 - 8 tab PO UD PRN; Protocol PRN Reason: Hypoglycemia Treatment Stop: 10/25/23 20:44 Glucose (Glucose 40% Gel 15 Gm Tube) 15 - 30 gm PO UD PRN; Protocol PRN Reason: Hypoglycemia Protocol Stop: 10/25/23 20:44 Insulin Aspart (Insulin Aspart Per Unit Charge) 0 units SC ACHS [facility] Stop: 10/25/23 20:59 Last Admin: 09/28/23 20:59 Dose: Not Given Levothyroxine Sodium (Levothyroxine Sodium 50 Mcg Tablet) 50 mcg PO DAILYBB [facility] Stop: 10/26/23 06:29 Last Admin: 09/29/23 06:01 Dose: 50 mcg Loratadine (Loratadine 10 Mg Tab) 10 mg PO HS PRN PRN Reason: Allergy Symptoms Stop: 10/25/23 20:44 Magnesium Oxide (Magnesium Oxide 400 Mg Tab) 400 mg PO QAM [facility] Stop: 10/26/23 08:59 Last Admin: 09/29/23 08:15 Dose: 400 mg Methenamine Hippurate (Methenamine Hippurate 1 Gm Tab) 1 gm PO AMHS [facility] Stop: 09/30/23 20:59 Last Admin: 09/29/23 08:16 Dose: 1 gm Miscellaneous (Carbohydrates For Hypoglycemia ) 15 - 30 gm PO UD PRN PRN Reason: Hypoglycemia Protocol Stop: 10/25/23 20:44 Pantoprazole Sodium (Pantoprazole 40 Mg Tab) 40 mg PO HS [facility] Stop: 10/25/23 20:59 Last Admin: 09/28/23 20:54 Dose: 40 mg Polyethylene Glycol (Polyethylene (Miralax) 17 Gm Pack) 17 gm PO BID JAMEL Stop: 10/28/23 10:14 Last Admin: 09/29/23 08:15 Dose: 17 gm Potassium Chloride (Potassium Chloride 10 Meq Tabcr) 10 meq PO BID JAMEL Stop: 10/26/23 08:59 Last Admin: 09/29/23 08:16 Dose: 10 meq Sumatriptan Succinate (Sumatriptan Succinate 100 Mg Tab) 100 mg PO DAILY PRN PRN Reason: Headache Stop: 10/25/23 20:44
[2023-09-29] MEDS: cloZAPine 100 MG TAB PO SCH (20:54)
[2023-09-30 06:56] LABS: Hematocrit (blood only) 30.6 % (37.0-47.0); Hemoglobin 10.1 g/dl (12.0-16.0); Mean Corpuscular Hemoglobin 28.4 pg (25.0-34.0); Mean Platelet Volume 10.5 fL (9.4-12.4); Platelet Count 180 K/uL (130-400); RDW Coefficient of Variation 15.1 % (11.5-14.5); RDW Standard Deviation 47.8 fL (36.4-46.3); Red Blood Count 3.56 M/uL (4.20-5.40); White Blood Count 4.75 K/ul (4.8-10.8)
[2023-09-30 07:15] LABS: Creatinine Clr Calc Pharmacy 84.2 ml/min; Est GFR (African American) 110.5 ml/min; Est GFR (Non-African American) 95.3 ml/min; Magnesium 1.8 mg/dl (1.7-2.4); Phosphorus 4.3 mg/dl (2.5-4.9); Potassium 3.9 mmol/L (3.5-5.1)
--- NOTE | 2023-09-30 07:30 | Hospitalist Progress Note ---
Date of Service September 30, 2023 Assessment & Plan (1) Weakness: (2) Syncope: Plan: 73 yo female with history of diabetes type 2, hypertension, dyslipidemia, hypothyroidism, brain tumor s/p resection, schizophrenia, migraine, anemia, recurrent UTIs [facility] and a syncopal episode while at the ER triage area. WEAKNESS, SYNCOPE LIKELY SECONDARY TO ORTHOSTATIC HYPOTENSION,POSSIBLE UNDERLYING SICK SINUS SYNDROME Patient recently admitted to [facility] for pneumonia, respiratory failure s/p intubation, UTI, delirium, stercoral colitis from constipation And was observed to have bradycardia, metoprolol reduced in dose. While at [facility], patient noted to have borderline blood pressure and bradycardia. Amlodipine, lisinopril, metoprolol subsequently discontinued She has been off these medications for a few days now. She was discharged from [facility] re[facility] day prior admission She presented with weakness and syncope in the setting of marginal blood press ure and sinus bradycardia in the 50s She had dry oral mucosa and low sodium indicating dehydration. IV NSS - now stopped TSH wnl, cortisol level 12.58 wnl Had a recent echo done in August 2023 which showed preserved ejection fraction, no significant valvular abnormalities Held clozapine initially on admission as syncope, bradycardia listed as adverse effects - discussed w/ psychiatry - recommend to continue clozapine (pt was previously on higher dose and was discharged on 100) Cardiology consulted - considering PPM 09/26 - Received contact number from for Dimitris Peterson ([phone]) pt's nephew. He resides in [place]. He is willing to help with decision making. He was updated on her current and previous hospitalization. He understands cardiology is considering placing a pacemaker and is in agreement with the plan. Discussed possible PPM placement with the pt as well, and she is agreeable, however she may not remember our conversation, she currently does not remember talking to cardiology. 09/27 Pt is now s/p PPM placement w/ Dr. Pruitt RULE OUT CVA Brain MRI - no acute CVA RULE OUT SEIZURE As a history of brain tumor, status post resection EEG - IMPRESSION: This is an abnormal routine EEG due to generalized background slowing suggestive of a non specific encephalopathy. No epileptiform activity is seen. Acute coronary syndrome unlikely as patient has negative troponin, no chest pain Hypoglycemia ruled out Infection unlikely as urinalysis, chest x-ray negative DIABETES TYPE 2 Insulin sliding scale Hold metformin HYPERTENSION - with marginal blood pressures on admission - now improved, will resume BP meds HYPOTHYROIDISM TSH 2.2 BRAIN TUMOR S/P RESECTION SCHIZOPHRENIA Re-Started on clozapine (was discharged on lower dose than her usual actually) during her last admission Initially held clozapine on admission as this may cause bradycardia, syncope - as above, discussed w/ psychiatry - recommend to continue clozapine (pt was previously on higher dose and was discharged on 100) Psychiatry consulted Migraine Chronic anemia Recurrent UTI Constipation - continue bowel regimen DVT prophylaxis SCDs for now CODE STATUS Full code as per patient Disposition PT and OT May need to return to acute rehab Admission and Anticipated Discharge Date Admission Date: September 25, 2023 Subjective Pt seen in follow up of syncope, bradycardia Recently admitted - required ICU, intubated (prior to being hospitalized she was in ER and sent home-> then found unresponsive) -> after her prolonged hospitalization discharged to [facility] - and just returned home and felt weak - in ER had syncopal episode Currently sitting up in chair in NAD, just had breakfast Says she feels well but does not remember what happened prior to coming to the hospital, does not remember much of being in rehab either No fever, chills, chest pain, or shortness of breath. no abd. pain, n/v Received contact number from for Dimitris Peterson ([phone]) pt's nephew. He resides in [place]. He is willing to help with decision making. Pt is now s/p PPM placement (09/27) AM. feeling well post-procedure - continues to have some pain at the site. No BM in several days despite being on miralax bid and colace bid - will give milk of magnesia today Review of Systems Review of Systems: All systems reviewed & are unremarkable except as noted in Subjective Physical Exam Physical Exam: General- WD/WN F in NAD Head- atraumatic Eyes- PERRL, EOMI, anicteric Neck- supple, no JVD Lungs- clear to auscultation, no rales/wheezes Heart- rrr Abdomen- normal bowel sounds, nondistended, soft, nontender Extremities- no pretibial edema, moves extremities Neuro- alert, able to answer simple questions appropriately however has poor memory, speech fluent, no facial asymmetry, moves extremities Skin- warm & dry Results & Data Results & Data Vital Signs (Past 12 Hours) Vital Signs Temp Pulse Pulse Resp BP Pulse Ox O2 Del Method 09/30/23 07:00 73 09/30/23 03:25 36.8 C 71 17 163/75 H 98 Room Air 09/29/23 23:40 36.8 C 71 16 166/78 H 97 Room Air Laboratory Results 09/30/23 09/30/23 09/29/23 Range/Units 07:24 06:12 21:06 WBC 4.75 L (4.8-10.8) K/ul RBC 3.56 L (4.20-5.40) M/uL Hgb 10.1 L (12.0-16.0) g/dl Hct 30.6 L (37.0-47.0) % MCV 86.0 (80.0-100.0) fL MCH 28.4 (25.0-34.0) pg MCHC 33.0 (32.0-36.0) g/dL RDW Std Deviation 47.8 H (36.4-46.3) fL RDW Coeff of Cyn 15.1 H (11.5-14.5) % Plt Count 180 (130-400) K/uL MPV 10.5 (9.4-12.4) fL Sodium 136 (136-145) mmol/L Potassium 3.9 (3.5-5.1) mmol/L Chloride 102 (98-107) mmol/L Carbon Dioxide 29 (21-32) mmol/L Anion Gap 5 (3-11) BUN 13 (6-23) mg/dl Creatinine 0.50 L (0.6-1.2) mg/dl Est Cr Clr Drug Dosing 84.2 ml/min Est GFR ( Amer) 110.5 ml/min Est GFR (Non-Af Amer) 95.3 ml/min BUN/Creatinine Ratio 26.0 H (10-20) Glucose 118 H (70-99(Fasting)) mg/dl POC Glucose 124 H 119 H (70-99) mg/dl Calcium 9.0 (8.6-10.3) mg/dl Phosphorus 4.3 (2.5-4.9) mg/dl Magnesium 1.8 (1.7-2.4) mg/dl 09/29/23 09/29/23 09/29/23 Range/Units 16:27 11:27 07:28 WBC (4.8-10.8) K/ul RBC (4.20-5.40) M/uL Hgb (12.0-16.0) g/dl Hct (37.0-47.0) % MCV (80.0-100.0) fL MCH (25.0-34.0) pg MCHC (32.0-36.0) g/dL RDW Std Deviation (36.4-46.3) fL RDW Coeff of Cyn (11.5-14.5) % Plt Count (130-400) K/uL MPV (9.4-12.4) fL Sodium (136-145) mmol/L Potassium (3.5-5.1) mmol/L Chloride (98-107) mmol/L Carbon Dioxide (21-32) mmol/L Anion Gap (3-11) BUN (6-23) mg/dl Creatinine (0.6-1.2) mg/dl Est Cr Clr Drug Dosing ml/min Est GFR ( Amer) ml/min Est GFR (Non-Af Amer) ml/min BUN/Creatinine Ratio (10-20) Glucose (70-99(Fasting)) mg/dl POC Glucose 112 H 136 H 110 H (70-99) mg/dl Calcium (8.6-10.3) mg/dl Phosphorus (2.5-4.9) mg/dl Magnesium (1.7-2.4) mg/dl 09/29/23 Range/Units 05:56 WBC (4.8-10.8) K/ul RBC (4.20-5.40) M/uL Hgb (12.0-16.0) g/dl Hct (37.0-47.0) % MCV (80.0-100.0) fL MCH (25.0-34.0) pg MCHC (32.0-36.0) g/dL RDW Std Deviation (36.4-46.3) fL RDW Coeff of Cyn (11.5-14.5) % Plt Count (130-400) K/uL MPV (9.4-12.4) fL Sodium 137 (136-145) mmol/L Potassium 4.1 (3.5-5.1) mmol/L Chloride 104 (98-107) mmol/L Carbon Dioxide 28 (21-32) mmol/L Anion Gap 5 (3-11) BUN 14 (6-23) mg/dl Creatinine 0.41 L (0.6-1.2) mg/dl Est Cr Clr Drug Dosing 102.7 ml/min Est GFR ( Amer) 118.0 ml/min Est GFR (Non-Af Amer) 101.8 ml/min BUN/Creatinine Ratio 34.1 H (10-20) Glucose 109 H (70-99(Fasting)) mg/dl POC Glucose (70-99) mg/dl Calcium 8.8 (8.6-10.3) mg/dl Phosphorus 3.9 (2.5-4.9) mg/dl Magnesium 1.8 (1.7-2.4) mg/dl Medications Administered Current Inpatient Medications Acetaminophen (Acetaminophen 325 Mg Tab) 650 mg PO Q4H PRN PRN Reason: Pain or Fever Stop: 10/25/23 20:44 Last Admin: 09/29/23 21:00 Dose: 650 mg Aspirin (Aspirin 81 Mg Ectab) 81 mg PO DAILY [facility] Stop: 10/26/23 08:59 Last Admin: 09/29/23 08:15 Dose: 81 mg Atorvastatin Calcium (Atorvastatin 20 Mg Tab) 20 mg PO HS [facility] Stop: 10/25/23 20:59 Last Admin: 09/29/23 20:53 Dose: 20 mg Clozapine (Clozapine 100 Mg Tab) 100 mg PO HS JAMEL; Protocol Stop: 10/29/23 20:59 Last Admin: 09/29/23 20:54 Dose: 100 mg Cyanocobalamin (Cyanocobalamin (B-12) 500 Mcg Tablet) 1,000 mcg PO DAILY [facility] Stop: 10/26/23 08:59 Last Admin: 09/29/23 08:15 Dose: 1,000 mcg Dextrose (Dextrose 50% 50 Ml Syringe) 25 - 50 ml IV UD PRN; Protocol PRN Reason: Hypoglycemia Protocol Stop: 10/25/23 20:44 Docusate Sodium (Docusate Sodium 100 Mg Cap) 100 mg PO BID [facility] Stop: 10/28/23 10:29 Last Admin: 09/29/23 20:54 Dose: 100 mg Fluticasone Propionate (Fluticasone Propionate Na Spr 16 Gm Btl) 2 sprays NA DAILY [facility] Stop: 10/26/23 08:59 Last Admin: 09/29/23 08:17 Dose: 2 sprays Glucagon (Glucagon For Inj 1 Mg Vial) 1 mg SQ UD PRN; Protocol PRN Reason: Hypoglycemia Protocol Stop: 10/25/23 20:44 Glucose (Glucose 10 Tab/Tube) 4 - 8 tab PO UD PRN; Protocol PRN Reason: Hypoglycemia Treatment Stop: 10/25/23 20:44 Glucose (Glucose 40% Gel 15 Gm Tube) 15 - 30 gm PO UD PRN; Protocol PRN Reason: Hypoglycemia Protocol Stop: 10/25/23 20:44 Insulin Aspart (Insulin Aspart Per Unit Charge) 0 units SC ACHS [facility] Stop: 10/25/23 20:59 Last Admin: 09/29/23 21:11 Dose: Not Given Levothyroxine Sodium (Levothyroxine Sodium 50 Mcg Tablet) 50 mcg PO DAILYBB [facility] Stop: 10/26/23 06:29 Last Admin: 09/30/23 04:46 Dose: Not Given Loratadine (Loratadine 10 Mg Tab) 10 mg PO HS PRN PRN Reason: Allergy Symptoms Stop: 10/25/23 20:44 Magnesium Oxide (Magnesium Oxide 400 Mg Tab) 400 mg PO QAM [facility] Stop: 10/26/23 08:59 Last Admin: 09/29/23 08:15 Dose: 400 mg Methenamine Hippurate (Methenamine Hippurate 1 Gm Tab) 1 gm PO AMHS [facility] Stop: 09/30/23 20:59 Last Admin: 09/29/23 20:56 Dose: 1 gm Miscellaneous (Carbohydrates For Hypoglycemia ) 15 - 30 gm PO UD PRN PRN Reason: Hypoglycemia Protocol Stop: 10/25/23 20:44 Pantoprazole Sodium (Pantoprazole 40 Mg Tab) 40 mg PO HS [facility] Stop: 10/25/23 20:59 Last Admin: 09/29/23 20:57 Dose: 40 mg Polyethylene Glycol (Polyethylene (Miralax) 17 Gm Pack) 17 gm PO BID [facility] Stop: 10/28/23 10:14 Last Admin: 09/29/23 21:00 Dose: 17 gm Potassium Chloride (Potassium Chloride 10 Meq Tabcr) 10 meq PO BID [facility] Stop: 10/26/23 08:59 Last Admin: 09/29/23 20:59 Dose: 10 meq Sumatriptan Succinate (Sumatriptan Succinate 100 Mg Tab) 100 mg PO DAILY PRN PRN Reason: Headache Stop: 10/25/23 20:44
--- NOTE | 2023-09-30 08:52 | Cardiology Progress Note ---
Date of Service September 30, 2023 Assessment & Plan (1) Syncope: (2) Sinus bradycardia: Plan Assessment: 73 year old female that resides home alone presented after same day discharge from [facility] for reported syncopal episode found by a friend. Concerns for profound bradycardia and possible SSS. Plan 1. Syncope 2. Bradycardia -No recurrence of syncopal events since admission. -Review of telemetry demonstrates no profound bradycardia, no sinus pauses, no high grade heart block. Lowest HR 50bpm since admission. -Patient does not have a recollection of the event so it is uncertain what exactly happened causing the unresponsive episode prior to presentation -Clozaril has been indicated long-term which could contribute to bradycardia 09/29/2023 Telemetry overnight with intermittent bradycardia heart rates in the 40s. Messages relayed from psychiatrist noting ongoing demand for Clozaril with past catatonia Patient was referred for dual-chamber pacemaker this morning with procedure performed uneventfully Plan to gradually increase activity 09/30/2023 No cardiac complaints. Blood pressure trending somewhat higher. Pacemaker functioning appropriately with minimal atrial pacing. Site clean Recommendations resume amlodipine at 5 mg/day follow patient for orthostasis Outpatient cardiology 2 to 4 weeks to establish pacemaker care Will sign off contact with question Admission and Anticipated Discharge Date Admission Date: September 25, 2023 Subjective Patient seen and examined, chart, medications, telemetry reviewed. Patient sitting up alert having breakfast. Mild discomfort in left shoulder otherwise no acute complaints. Blood pressures trending higher Review of Systems Review of Systems: All systems reviewed & are unremarkable except as noted in Subjective Physical Exam Constitutional: WD/WN, vitals as above no acute distress Eyes: PERRL, conjunctivae normal, anicteric sclerae ENMT: external ear and nose normal, oropharynx normal Neck: trachea midline, no thyromegaly Respiratory: normal respiratory effort, lungs clear to auscultation Cardiovascular: Rate/Rhythm: regular rate (Atrial paced) Vessels: no JVD Extremities: no edema Chest (Breasts): Chest: + pacemaker Gastrointestinal (Abdomen): normal bowel sounds, soft, nontender, no hep atosplenomegaly Musculoskeletal: no cyanosis or clubbing, extremities motor strength 5/5 Results & Data Vital Signs (Past 12 Hours) Vital Signs Temp Pulse Pulse Resp BP Pulse Ox O2 Del Method 09/30/23 07:15 36.8 C 71 17 168/78 H 100 Room Air 09/30/23 07:00 73 09/30/23 03:25 36.8 C 71 17 163/75 H 98 Room Air 09/29/23 23:40 36.8 C 71 16 166/78 H 97 Room Air Laboratory Results Laboratory Results - last 24 hr 09/29/23 09/29/23 09/29/23 11:27 16:27 21:06 WBC RBC Hgb Hct MCV MCH MCHC RDW Std Deviation RDW Coeff of Cyn Plt Count MPV Sodium Potassium Chloride Carbon Dioxide Anion Gap BUN Creatinine Est Cr Clr Drug Dosing Est GFR ( Amer) Est GFR (Non-Af Amer) BUN/Creatinine Ratio Glucose POC Glucose 136 H 112 H 119 H Calcium Phosphorus Magnesium 09/30/23 09/30/23 06:12 07:24 WBC 4.75 L RBC 3.56 L Hgb 10.1 L Hct 30.6 L MCV 86.0 MCH 28.4 MCHC 33.0 RDW Std Deviation 47.8 H RDW Coeff of Cyn 15.1 H Plt Count 180 MPV 10.5 Sodium 136 Potassium 3.9 Chloride 102 Carbon Dioxide 29 Anion Gap 5 BUN 13 Creatinine 0.50 L Est Cr Clr Drug Dosing 84.2 Est GFR ( Amer) 110.5 Est GFR (Non-Af Amer) 95.3 BUN/Creatinine Ratio 26.0 H Glucose 118 H POC Glucose 124 H Calcium 9.0 Phosphorus 4.3 Magnesium 1.8
[2023-09-30] MEDS: MAGNESIUM HYDROXIDE SUSP 30 ML UDC PO ONE (11:21)
[2023-09-30] MEDS: lisinopril 5 MG TAB PO SCH (11:57)
--- NOTE | 2023-09-30 12:45 | Communication Note ---
Date of Service: September 30, 2023 I stop by to meet with the patient and check-in. The nurse reported that she has been doing okay on the unit. When I met with her, she brightened up sign ificantly when I mentioned that it was Easter Sunday. She feels well and her left arm is not bothering her as much. She seems to be doing okay with the current dose of clozapine. We will continue to follow.
--- NOTE | 2023-10-01 07:44 | Hospitalist Progress Note ---
Date of Service October 01, 2023 Assessment & Plan (1) Weakness: (2) Syncope: Plan: 73 yo female with history of diabetes type 2, hypertension, dyslipidemia, hypothyroidism, brain tumor s/p resection, schizophrenia, migraine, anemia, recurrent UTIs Presenting today after being discharged from [facility] yesterday for weakness and a syncopal episode while at the ER triage area. WEAKNESS, SYNCOPE LIKELY SECONDARY TO ORTHOSTATIC HYPOTENSION,POSSIBLE UNDERLYING SICK SINUS SYNDROME Patient recently admitted to [facility] for pneumonia, respiratory failure s/p intubation, UTI, delirium, stercoral colitis from constipation And was observed to have bradycardia, metoprolol reduced in dose. While at [facility]hab, patient noted to have borderline blood pressure and bradycardia. Amlodipine, lisinopril, metoprolol subsequently discontinued She has been off these medications for a few days now. She was discharged from [facility] rehab day prior admission She presented with weakness and syncope in the setting of marginal blood pressu re and sinus bradycardia in the 50s She had dry oral mucosa and low sodium indicating dehydration. IV NSS - now stopped TSH wnl, cortisol level 12.58 wnl Had a recent echo done in August 2023 which showed preserved ejection fraction, no significant valvular abnormalities Held clozapine initially on admission as syncope, bradycardia listed as adverse effects - discussed w/ psychiatry - recommend to continue clozapine (pt was previously on higher dose and was discharged on 100) Cardiology consulted - considering PPM 09/26 - Received contact number from for Dimitris Peterson ([phone]) pt's nephew. He resides in [place]. He is willing to help with decision making. He was updated on her current and previous hospitalization. He understands cardiology is considering placing a pacemaker and is in agreement with the plan. Discussed possible PPM placement with the pt as well, and she is agreeable, however she may not remember our conversation, she currently does not remember talking to cardiology. 09/27 Pt is now s/p PPM placement w/ Dr. Pruitt RULE OUT CVA Brain MRI - no acute CVA RULE OUT SEIZURE As a history of brain tumor, status post resection EEG - IMPRESSION: This is an abnormal routine EEG due to generalized background slowing suggestive of a non specific encephalopathy. No epileptiform activity is seen. Acute coronary syndrome unlikely as patient has negative troponin, no chest pain Hypoglycemia ruled out Infection unlikely as urinalysis, chest x-ray negative DIABETES TYPE 2 Insulin sliding scale Hold metformin HYPERTENSION - with marginal blood pressures on admission - now improved, will resume BP meds HYPOTHYROIDISM TSH 2.2 BRAIN TUMOR S/P RESECTION SCHIZOPHRENIA Re-Started on clozapine (was discharged on lower dose than her usual actually) during her last admission Initially held clozapine on admission as this may cause bradycardia, syncope - as above, discussed w/ psychiatry - recommend to continue clozapine (pt was previously on higher dose and was discharged on 100) Psychiatry consulted Migraine Chronic anemia Recurrent UTI Constipation - continue bowel regimen - closely monitor, as pt has tendency for severe constipation (previous admission) DVT prophylaxis SCDs for now CODE STATUS Full code as per patient Disposition PT and OT May need to return to acute rehab Admission and Anticipated Discharge Date Admission Date: September 25, 2023 Subjective Pt seen in follow up of syncope, bradycardia Recently admitted - required ICU, intubated (prior to being hospitalized she was in ER and sent home-> then found unresponsive) -> after her prolonged hospitalization discharged to [facility] - and just returned home and felt weak - in ER had syncopal episode Currently sitting up in bed in [facility] Says she feels well but does not remember what happened prior to coming to the hospital, does not remember much of being in rehab either No fever, chills, chest pain, or shortness of breath. no abd. pain, n/v Received contact number from for Dimitris Johnsonager ([phone]) pt's nephew. He resides in [place]. He is willing to help with decision making. Pt is now s/p PPM placement (09/27) AM. feeling well post-procedure - continues to have some pain at the site. Had a BM yesterday after given milk of magnesia. Review of Systems Review of Systems: All systems reviewed & are unremarkable except as noted in Subjective Physical Exam Physical Exam: General- WD/WN F in NAD Head- atraumatic Eyes- PERRL, EOMI, anicteric Neck- supple, no JVD Lungs- clear to auscultation, no rales/wheezes Heart- rrr Abdomen- normal bowel sounds, nondistended, soft, nontender Extremities- no pretibial edema, moves extremities Neuro- alert, able to answer simple questions appropriately however has poor memory, speech fluent, no facial asymmetry, moves extremities Skin- warm & dry Results & Data Results & Data Vital Signs (Past 12 Hours) Vital Signs Temp Pulse Pulse Resp BP Pulse Ox O2 Del Method 10/01/23 03:10 36.8 C 67 17 124/65 99 Room Air 09/30/23 23:25 36.8 C 64 16 138/71 98 Room Air 09/30/23 23:00 67 Laboratory Results 10/01/23 10/01/23 10/01/23 Range/Units 11:11 07:12 07:01 WBC 3.81 L (4.8-10.8) K/ul RBC 3.31 L (4.20-5.40) M/uL Hgb 9.4 L (12.0-16.0) g/dl Hct 28.7 L (37.0-47.0) % MCV 86.7 (80.0-100.0) fL MCH 28.4 (25.0-34.0) pg MCHC 32.8 (32.0-36.0) g/dL RDW Std Deviation 49.4 H (36.4-46.3) fL RDW Coeff of Cyn 15.6 H (11.5-14.5) % Plt Count 176 (130-400) K/uL MPV 10.8 (9.4-12.4) fL Sodium 138 (136-145) mmol/L Potassium 4.0 (3.5-5.1) mmol/L Chloride 106 (98-107) mmol/L Carbon Dioxide 27 (21-32) mmol/L Anion Gap 5 (3-11) BUN 18 (6-23) mg/dl Creatinine 0.48 L (0.6-1.2) mg/dl Est Cr Clr Drug Dosing 87.8 ml/min Est GFR ( Amer) 112.0 ml/min Est GFR (Non-Af Amer) 96.6 ml/min BUN/Creatinine Ratio 37.5 H (10-20) Glucose 110 H (70-99(Fasting)) mg/dl POC Glucose 123 H 110 H (70-99) mg/dl Calcium 8.9 (8.6-10.3) mg/dl Phosphorus 4.0 (2.5-4.9) mg/dl Magnesium 2.0 (1.7-2.4) mg/dl 09/30/23 09/30/23 Range/Units 21:26 16:25 WBC (4.8-10.8) K/ul RBC (4.20-5.40) M/uL Hgb (12.0-16.0) g/dl Hct (37.0-47.0) % MCV (80.0-100.0) fL MCH (25.0-34.0) pg MCHC (32.0-36.0) g/dL RDW Std Deviation (36.4-46.3) fL RDW Coeff of Cyn (11.5-14.5) % Plt Count (130-400) K/uL MPV (9.4-12.4) fL Sodium (136-145) mmol/L Potassium (3.5-5.1) mmol/L Chloride (98-107) mmol/L Carbon Dioxide (21-32) mmol/L Anion Gap (3-11) BUN (6-23) mg/dl Creatinine (0.6-1.2) mg/dl Est Cr Clr Drug Dosing ml/min Est GFR ( Amer) ml/min Est GFR (Non-Af Amer) ml/min BUN/Creatinine Ratio (10-20) Glucose (70-99(Fasting)) mg/dl POC Glucose 119 H 115 H (70-99) mg/dl Calcium (8.6-10.3) mg/dl Phosphorus (2.5-4.9) mg/dl Magnesium (1.7-2.4) mg/dl Medications Administered Current Inpatient Medications Acetaminophen (Acetaminophen 325 Mg Tab) 650 mg PO Q4H PRN PRN Reason: Pain or Fever Stop: 10/25/23 20:44 Last Admin: 09/30/23 20:13 Dose: 650 mg Aspirin (Aspirin 81 Mg Ectab) 81 mg PO DAILY [facility] Stop: 10/26/23 08:59 Last Admin: 09/30/23 07:33 Dose: 81 mg Atorvastatin Calcium (Atorvastatin 20 Mg Tab) 20 mg PO HS [facility] Stop: 10/25/23 20:59 Last Admin: 09/30/23 20:14 Dose: 20 mg Clozapine (Clozapine 100 Mg Tab) 100 mg PO HS JAMEL; Protocol Stop: 10/29/23 20:59 Last Admin: 09/30/23 20:14 Dose: 100 mg Cyanocobalamin (Cyanocobalamin (B-12) 500 Mcg Tablet) 1,000 mcg PO DAILY [facility] Stop: 10/26/23 08:59 Last Admin: 09/30/23 07:34 Dose: 1,000 mcg Dextrose (Dextrose 50% 50 Ml Syringe) 25 - 50 ml IV UD PRN; Protocol PRN Reason: Hypoglycemia Protocol Stop: 10/25/23 20:44 Docusate Sodium (Docusate Sodium 100 Mg Cap) 100 mg PO BID [facility] Stop: 10/28/23 10:29 Last Admin: 09/30/23 20:15 Dose: 100 mg Fluticasone Propionate (Fluticasone Propionate Na Spr 16 Gm Btl) 2 sprays NA DAILY [facility] Stop: 10/26/23 08:59 Last Admin: 09/30/23 07:34 Dose: 2 sprays Glucagon (Glucagon For Inj 1 Mg Vial) 1 mg SQ UD PRN; Protocol PRN Reason: Hypoglycemia Protocol Stop: 10/25/23 20:44 Glucose (Glucose 10 Tab/Tube) 4 - 8 tab PO UD PRN; Protocol PRN Reason: Hypoglycemia Treatment Stop: 10/25/23 20:44 Glucose (Glucose 40% Gel 15 Gm Tube) 15 - 30 gm PO UD PRN; Protocol PRN Reason: Hypoglycemia Protocol Stop: 10/25/23 20:44 Insulin Aspart (Insulin Aspart Per Unit Charge) 0 units SC ACHS [facility] Stop: 10/25/23 20:59 Last Admin: 09/30/23 21:47 Dose: Not Given Levothyroxine Sodium (Levothyroxine Sodium 50 Mcg Tablet) 50 mcg PO DAILYBB [facility] Stop: 10/26/23 06:29 Last Admin: 10/01/23 06:03 Dose: 50 mcg Lisinopril (Lisinopril 5 Mg Tab) 5 mg PO QAM [facility] Stop: 10/30/23 09:29 Last Admin: 09/30/23 11:57 Dose: 5 mg Loratadine (Loratadine 10 Mg Tab) 10 mg PO HS PRN PRN Reason: Allergy Symptoms Stop: 10/25/23 20:44 Magnesium Oxide (Magnesium Oxide 400 Mg Tab) 400 mg PO QAM [facility] Stop: 10/26/23 08:59 Last Admin: 09/30/23 07:34 Dose: 400 mg Miscellaneous (Carbohydrates For Hypoglycemia ) 15 - 30 gm PO UD PRN PRN Reason: Hypoglycemia Protocol Stop: 10/25/23 20:44 Pantoprazole Sodium (Pantoprazole 40 Mg Tab) 40 mg PO HS [facility] Stop: 10/25/23 20:59 Last Admin: 09/30/23 20:14 Dose: 40 mg Polyethylene Glycol (Polyethylene (Miralax) 17 Gm Pack) 17 gm PO BID [facility] Stop: 10/28/23 10:14 Last Admin: 09/30/23 20:13 Dose: 17 gm Potassium Chloride (Potassium Chloride 10 Meq Tabcr) 10 meq PO BID [facility] Stop: 10/26/23 08:59 Last Admin: 09/30/23 20:15 Dose: 10 meq Sumatriptan Succinate (Sumatriptan Succinate 100 Mg Tab) 100 mg PO DAILY PRN PRN Reason: Headache Stop: 10/25/23 20:44
[2023-10-01 08:01] LABS: Hematocrit (blood only) 28.7 % (37.0-47.0); Hemoglobin 9.4 g/dl (12.0-16.0); Mean Corpuscular Hemoglobin 28.4 pg (25.0-34.0); Mean Corpuscular Hgb Conc 32.8 g/dL (32.0-36.0); Mean Corpuscular Volume 86.7 fL (80.0-100.0); Mean Platelet Volume 10.8 fL (9.4-12.4); Platelet Count 176 K/uL (130-400); RDW Coefficient of Variation 15.6 % (11.5-14.5); RDW Standard Deviation 49.4 fL (36.4-46.3); Red Blood Count 3.31 M/uL (4.20-5.40); White Blood Count 3.81 K/ul (4.8-10.8)
[2023-10-01 08:19] LABS: BUN Creatinine Ratio 37.5 (10-20); Calcium 8.9 mg/dl (8.6-10.3); Creatinine Clr Calc Pharmacy 87.8 ml/min; Est GFR (Non-African American) 96.6 ml/min
[2023-10-02 06:55] LABS: Hematocrit (blood only) 28.9 % (37.0-47.0); Hemoglobin 9.5 g/dl (12.0-16.0); Mean Corpuscular Hemoglobin 28.5 pg (25.0-34.0); Mean Corpuscular Hgb Conc 32.9 g/dL (32.0-36.0); Mean Corpuscular Volume 86.8 fL (80.0-100.0); Mean Platelet Volume 10.3 fL (9.4-12.4); Platelet Count 179 K/uL (130-400); RDW Coefficient of Variation 15.4 % (11.5-14.5); RDW Standard Deviation 49.3 fL (36.4-46.3); Red Blood Count 3.33 M/uL (4.20-5.40); White Blood Count 4.79 K/ul (4.8-10.8)
--- NOTE | 2023-10-02 06:58 | Electrocardiogram Report ---
Test Reason : Blood Pressure : / mmHG Vent. Rate : 063 BPM Atrial Rate : 063 BPM P-R Int : 102 ms QRS Dur : 076 ms QT Int : 440 ms P-R-T Axes : 041 008 010 degrees QTc Int : 450 ms Sinus rhythm with short FL Otherwise normal ECG When compared with ECG of 28-SEP-2023 12:45, Sinus rhythm has replaced Electronic atrial pacemaker Confirmed by Kin Hicks ([id number]) on 10/02/2023 6:57:50 AM Referred By: REFERRED SELF Confirmed By:Kin Hicks
[2023-10-02 07:37] LABS: BUN Creatinine Ratio 41.8 (10-20); Calcium 8.8 mg/dl (8.6-10.3); Creatinine Clr Calc Pharmacy 80.5 ml/min; Est GFR (African American) 107.1 ml/min; Est GFR (Non-African American) 92.4 ml/min; Potassium 4.3 mmol/L (3.5-5.1)
--- NOTE | 2023-10-02 12:15 | Hospitalist Progress Note ---
Date of Service October 02, 2023 Assessment & Plan (1) Weakness: (2) Syncope: Plan: per previous hospitalist notes with addendum: 73 yo female with history of diabetes type 2, hypertension, dyslipidemia, hypothyroidism, brain tumor s/p resection, schizophrenia, migraine, anemia, recurrent UTIs Presenting today after being discharged from [facility] yesterday for weakness and a syncopal episode while at the ER triage area. WEAKNESS, SYNCOPE LIKELY SECONDARY TO ORTHOSTATIC HYPOTENSION,POSSIBLE UNDERLYING SICK SINUS SYNDROME Patient recently admitted to [facility] for pneumonia, respiratory failure s/p intubation, UTI, delirium, stercoral colitis from constipation And was observed to have bradycardia, metoprolol reduced in dose. While at [facility], patient noted to have borderline blood pressure and bradycardia. Amlodipine, lisinopril, metoprolol subsequently discontinued She has been off these medications for a few days now. She was discharged from [facility] re[facility] day prior admission She presented with weakness and syncope in the setting of marginal blood pressure and sinus bradycardia in the 50s She had dry oral mucosa and low sodium indicating dehydration. IV NSS - now stopped TSH wnl, cortisol level 12.58 wnl Had a recent echo done in August 2023 which showed preserved ejection fraction, no significant valvular abnormalities Held clozapine initially on admission as syncope, bradycardia listed as adverse effects - discussed w/ psychiatry - recommend to continue clozapine (pt was previously on higher dose and was discharged on 100) Cardiology consulted - considering PPM 09/26 - Received contact number from for Dimitris Peterson ([phone]) pt's nephew. He resides in [place]. He is willing to help with decision making. He was updated on her current and previous hospitalization. He understands cardiology is considering placing a pacemaker and is in agreement with the plan. Discussed possible PPM placement with the pt as well, and she is agreeable, however she may not remember our conversation, she currently does not remember talking to cardiology. 09/27 Pt is now s/p PPM placement w/ Dr. Pruitt RULE OUT CVA Brain MRI - no acute CVA RULE OUT SEIZURE As a history of brain tumor, status post resection EEG - IMPRESSION: This is an abnormal routine EEG due to generalized background slowing suggestive of a non specific encephalopathy. No epileptiform activity is seen. Acute coronary syndrome unlikely as patient has negative troponin, no chest pain Hypoglycemia ruled out Infection unlikely as urinalysis, chest x-ray negative /2 stable overall awaiting placement DIABETES TYPE 2 Insulin sliding scale Hold metformin 4/2 BSG 119-139 HYPERTENSION - with marginal blood pressures on admission - now improved, will resume BP meds 4/2 BP stable overall on Lisinopril 5mg po daily HYPOTHYROIDISM TSH 2.2 BRAIN TUMOR S/P RESECTION SCHIZOPHRENIA Re-Started on clozapine (was discharged on lower dose than her usual actually) during her last admission Initially held clozapine on admission as this may cause bradycardia, syncope - as above, discussed w/ psychiatry - recommend to continue clozapine (pt was previously on higher dose and was discharged on 100) Psychiatry consulted Migraine Chronic anemia Recurrent UTI Constipation - continue bowel regimen - closely monitor, as pt has tendency for severe constipation (previous admission) DVT prophylaxis SCDs for now CODE STATUS Full code as per patient Disposition PT and OT May need to return to acute rehab Admission and Anticipated Discharge Date Admission Date: September 25, 2023 Subjective ff up for s/p PM placement, etc seen resting in bed, comfortable states she feels fine overall has some mild headache, frontal no nausea/vomiting, neurologic deficits no chest pain, dyspnea, palpitations, dizziness no other symptoms Review of Systems Review of Systems: all noted and negative except for above Physical Exam Physical Exam: General- oriented x 2, not in distress, speaks in sentences with no effort or accessory muscle use Eyes- anicteric Neck- no JVD Lungs- clear breath sounds bilaterally, no rales/wheezes Heart- normal rate, regular rhythm; no murmurs PM site: no bleeding, discharge Abdomen- normal bowel sounds, nondistended, soft, nontender Extremities- no pretibial edema, no calf tenderness Neuro- alert, oriented x 2; no gross focal neurologic deficits Skin- warm & dry Results & Data Results & Data Vital Signs (Past 12 Hours) Vital Signs Temp Pulse Pulse Resp BP Pulse Ox O2 Del Method 10/02/23 11:22 36.4 C L 67 18 115/67 99 Room Air 10/02/23 07:51 36.4 C L 64 20 132/73 99 Room Air 10/02/23 05:56 66 10/02/23 03:18 36.5 C 66 18 127/68 98 Room Air all noted and reviewed including below
--- NOTE | 2023-10-02 13:36 | Communication Note ---
Date of Service: October 02, 2023 Today I checked in with the patient to see how she was doing. She is now in a different room. She is still pleasant and cooperative although still somewhat confused. She thought it was October or November 2020. She described her mood is "not happy, but not sad." She says she is tolerating her medications well. She says she is eating well and sleeping well. She had very good eye contact and bright affect throughout her conversation. We recommend continuing with the clozapine at 100 mg at night. I understand that they are working on a transition to a group home facility rehab. That seems appropriate in a good way to help build her strength since she had been bedridden for so long. We will continue to follow while she is here.
[2023-10-02] MEDS: ENOXAPARIN INJ 40 MG/0.4 ML SYR SQ SCH (14:28)
[2023-10-02] MEDS: SUMAtriptan succinate 100 MG TAB PO PRN (19:43)
[2023-10-03 07:18] LABS: Basophils # (auto) 0.05 K/uL (0.00-0.20); Basophils % (auto) 1.1 %; Hematocrit (blood only) 30.5 % (37.0-47.0); Hemoglobin 9.7 g/dl (12.0-16.0); Immature Granulocytes # (auto) 0.01 K/uL (0.01-0.20); Immature Granulocytes % (auto) 0.2 %; Lymphocytes # (auto) 2.18 K/uL (1.20-3.40); Lymphocytes % (auto) 48.6 %; Mean Corpuscular Hgb Conc 31.8 g/dL (32.0-36.0); Mean Corpuscular Volume 88.2 fL (80.0-100.0); Mean Platelet Volume 10.9 fL (9.4-12.4); Monocytes % (auto) 8.9 %; Neutrophils # (auto) 1.85 K/uL (1.40-6.50); Neutrophils % (auto) 41.2 %; Platelet Count 195 K/uL (130-400); RDW Coefficient of Variation 15.2 % (11.5-14.5); RDW Standard Deviation 49.1 fL (36.4-46.3); Red Blood Count 3.46 M/uL (4.20-5.40); White Blood Count 4.49 K/ul (4.8-10.8)
--- NOTE | 2023-10-03 11:28 | CT Scan Report ---
CT head/brain wo con CLINICAL HISTORY: headache, dizziness Technique: Contiguous axial CT images of the head were acquired from the base of the skull to the tereso kasey without intravenous contrast administration. Images were viewed in brain[facility]. Automated dose lowering techniques and/or adjustment according to patient size were utilized for this exam. Comparison: Comparison is made to CT head 09/25/2023 Findings: The ventricles, basal cisterns, and cerebral sulci are normal. There is no acute intracranial hemorrh age or evidence of acute territorial infarction. Neither mass effect, shift of the midline structures , nor abnormal extra-axial fluid collections are shown. Imaged portions of the paranasal sinuses and mastoid air cells are clear. The orbits appear normal. There are no acute fractures of the calvaria or scalp swelling. 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 Impression: No acute intracranial hemorrhage, no evidence of acute territorial infarction or other acute intracra nial disease process. ACT 112: Negative or not required by law. Electronically signed by: Trevin Yeboah M.D. 10/03/2023 11:27 AM
--- NOTE | 2023-10-03 19:33 | Hospitalist Progress Note ---
Date of Service October 03, 2023 delayed entry date of service noted above Assessment & Plan (1) Weakness: (2) Syncope: Plan: per previous hospitalist notes with addendum: 73 yo female with history of diabetes type 2, hypertension, dyslipidemia, hypothyroidism, brain tumor s/p resection, schizophrenia, migraine, anemia, recurrent UTIs Presenting today after being discharged from [facility] yesterday for weakness and a syncopal episode while at the ER triage area. WEAKNESS, SYNCOPE LIKELY SECONDARY TO ORTHOSTATIC HYPOTENSION,POSSIBLE UNDERLYING SICK SINUS SYNDROME Patient recently admitted to [facility] for pneumonia, respiratory failure s/p intubation, UTI, delirium, stercoral colitis from constipation And was observed to have bradycardia, metoprolol reduced in dose. While at [facility], patient noted to have borderline blood pressure and bradycardia. Amlodipine, lisinopril, metoprolol subsequently discontinued She has been off these medications for a few days now. She was discharged from [facility] day prior admission She presented with weakness and syncope in the setting of marginal blood pressure and sinus bradycardia in the 50s She had dry oral mucosa and low sodium indicating dehydration. IV NSS - now stopped TSH wnl, cortisol level 12.58 wnl Had a recent echo done in August 2023 which showed preserved ejection fraction, no significant valvular abnormalities Held clozapine initially on admission as syncope, bradycardia listed as adverse effects - discussed w/ psychiatry - recommend to continue clozapine (pt was previously on higher dose and was discharged on 100) Cardiology consulted - considering PPM 09/26 - Received contact number from for Dimitris Peterson ([phone]) pt's nephew. He resides in [place]. He is willing to help with decision making. He was updated on her current and previous hospitalization. He understands cardiology is considering placing a pacemaker and is in agreement with the plan. Discussed possible PPM placement with the pt as well, and she is agreeable, however she may not remember our conversation, she currently does not remember talking to cardiology. 09/27 Pt is now s/p PPM placement w/ Dr. Pruitt RULE OUT CVA Brain MRI - no acute CVA RULE OUT SEIZURE As a history of brain tumor, status post resection EEG - IMPRESSION: This is an abnormal routine EEG due to generalized background slowing suggestive of a non specific encephalopathy. No epileptiform activity is seen. Acute coronary syndrome unlikely as patient has negative troponin, no chest pain Hypoglycemia ruled out Infection unlikely as urinalysis, chest x-ray negative /2 stable overall awaiting placement /3 Positive headache, dizziness today No changes in telemetry CT head: No acute process Continue supportive care Continue to monitor close DIABETES TYPE 2 Insulin sliding scale Hold metformin HYPERTENSION - with marginal blood pressures on admission - now improved, will resume BP meds /3 BP stable overall on Lisinopril 5mg po daily HYPOTHYROIDISM TSH 2.2 BRAIN TUMOR S/P RESECTION SCHIZOPHRENIA Re-Started on clozapine (was discharged on lower dose than her usual actually) during her last admission Initially held clozapine on admission as this may cause bradycardia, syncope - as above, discussed w/ psychiatry - recommend to continue clozapine (pt was previously on higher dose and was discharged on 100) Psychiatry consulted 3 Requested psychiatry service to perform MoCA on patient for purposes of obtaining guardianship for the patient per case management service Migraine Chronic anemia Recurrent UTI Constipation - continue bowel regimen - closely monitor, as pt has tendency for severe constipation (previous admission) DVT prophylaxis Lovenox for DVT prophylaxis CODE STATUS Full code as per patient Disposition Will need to transition to detention facility Admission and Anticipated Discharge Date Admission Date: September 25, 2023 Subjective Follow-up for syncope, status post pacemaker placement, etc. Seen resting in chair, not in distress Oriented x 1-2 Reports some dizziness, and mild headache Denies other new neurologic deficits Simple questions appropriately no chest pain, dyspnea, palpitations, dizziness No other new symptom Review of Systems Review of Systems: General- oriented x 1-2, not in distress, speaks in sentences with no effort or accessory muscle use Eyes- anicteric Neck- no JVD Lungs- clear breath sounds bilaterally, no rales/wheezes Heart- normal rate, regular rhythm; no murmurs Pacemaker site: Dressing in place, no bleeding or discharge Abdomen- normal bowel sounds, nondistended, soft, nontender Extremities- no pretibial edema, no calf tenderness Neuro- alert, oriented x 1-2; no gross focal neurologic deficits Skin- warm & dry Results & Data Results & Data Vital Signs (Past 12 Hours) Vital Signs Temp Pulse Pulse Resp BP Pulse Ox O2 Del Method 10/03/23 15:38 76 10/03/23 14:35 37.1 C 71 18 110/60 99 Room Air 10/03/23 11:49 36.9 C 77 18 103/66 95 Room Air 10/03/23 07:41 Room Air 10/03/23 07:37 36.2 C L 62 18 127/62 98 Room Air all noted and reviewed including below
--- NOTE | 2023-10-04 10:31 | Communication Note ---
Date of Service: October 04, 2023 Psychiatry Update: Bartolo Cognitive Assessment done by psychiatric liason on 10/03/2023 per request of primary team to assist with guardianship application process. June scored a 16/30 on the MOCA suggestive of moderate cognitive impairment. Notably given her recent medical conditions, if any delirium is still present, this could impact her performance on a MOCA. She showed the most significant difficulties in the areas of executive/visuospatial, categorical fluency and short-term recall.
[2023-10-04] MEDS: LIDOCAINE 5% 1 PATCH TD SCH (11:42)
--- NOTE | 2023-10-04 16:44 | Cardiology Progress Note ---
Date of Service October 04, 2023 Assessment & Plan (1) Syncope: (2) Sinus bradycardia: (3) Schizophrenia: (4) Major neurocognitive disorder: Plan Patient is 1 week removed from dual-chamber permanent pacemaker. Repeat device interrogation performed on 10/03/2023 revealed normal device function. Wound check performed personally today. Bandage removed. Incision clean dry and intact without erythema or drainage. Very subtle mild ecchymosis and hematoma around the pocket. Subcutaneous Lovenox 40 mg daily reinitiated for DVT prophylaxis on 10/02/2023 and I think this is appropriate given the patient's degree of stasis in order to avoid severe DVT as she remains in the hospital. Blood pressure well-controlled without reinitiating prior to hospital treatment with amlodipine. Continue lisinopril 5 mg daily. Check, pacemaker check already scheduled to be performed at [facility] on 10/09/2023, but as noted, changed bandage today and checked upon incision as per usual routine 1 week post device to accomplish this now in case there are issues that prevent her from going to the pacemaker clinic on 10/08. Will need to be attentive to her discharge plans that she establishes with the outpatient device clinic. Stable from a cardiac perspective to transfer to an on telemetry floor. Juan Pablo Grace DO Admission and Anticipated Discharge Date Admission Date: September 25, 2023 Subjective Patient seen in cardiology follow-up having undergone implantation of an Demarco dual-chamber permanent pacemaker on 09/27/2013. Denies cardiac complaints. Notes some degree of pain over her procedure site. Telemetry reveals sinus rhythm in the 60s. Physical Exam Constitutional: WD/WN, vitals as above Respiratory: normal respiratory effort, lungs clear to auscultation Cardiovascular: RRR, no murmur, no edema Chest (Breasts): Chest: + pacemaker Additional Comments: Left infraclavicular pacemaker pocket clean dry and intact, incision without drainage, mild superimposed ecchymosis around the device with minimal subtle postprocedural hematoma. Gastrointestinal (Abdomen): normal bowel sounds, soft, nontender, no hepatosplenomegaly Neurologic: No focal neurologic deficits Results & Data Vital Signs (Past 12 Hours) Vital Signs Temp Pulse Pulse Resp BP Pulse Ox O2 Del Method 10/04/23 16:07 37.5 C 68 16 111/63 97 Room Air 10/04/23 11:52 35.6 C L 67 16 129/71 98 Room Air 10/04/23 10:55 Room Air 10/04/23 07:46 35.6 C L 63 18 150/77 H 99 Room Air 10/04/23 07:44 63
[2023-10-04] MEDS: KETOROLAC TROMETHAMINE 15 MG/ML VIAL IV PRN (18:01)
--- NOTE | 2023-10-04 20:50 | Hospitalist Progress Note ---
Date of Service October 04, 2023 Assessment & Plan (1) Weakness: (2) Syncope: Plan: per previous hospitalist notes with addendum: 73 yo female with history of diabetes type 2, hypertension, dyslipidemia, hypothyroidism, brain tumor s/p resection, schizophrenia, migraine, anemia, recurrent UTIs Presenting today after being discharged from [facility] yesterday for weakness and a syncopal episode while at the ER triage area. WEAKNESS, SYNCOPE LIKELY SECONDARY TO ORTHOSTATIC HYPOTENSION,POSSIBLE UNDERLYING SICK SINUS SYNDROME Patient recently admitted to [facility] for pneumonia, respiratory failure s/p intubation, UTI, delirium, stercoral colitis from constipation And was observed to have bradycardia, metoprolol reduced in dose. While at [facility] rehab, patient noted to have borderline blood pressure and bradycardia. Amlodipine, lisinopril, metoprolol subsequently discontinued She has been off these medications for a few days now. She was discharged from [facility] rehab day prior admission She presented with weakness and syncope in the setting of marginal blood pressure and sinus bradycardia in the 50s She had dry oral mucosa and low sodium indicating dehydration. IV NSS - now stopped TSH wnl, cortisol level 12.58 wnl Had a recent echo done in August 2023 which showed preserved ejection fraction, no significant valvular abnormalities Held clozapine initially on admission as syncope, bradycardia listed as adverse effects - discussed w/ psychiatry - recommend to continue clozapine (pt was previously on higher dose and was discharged on 100) Cardiology consulted - considering PPM 09/26 - Received contact number from for Dimitris Peterson ([phone]) pt's nephew. He resides in [place]. He is willing to help with decision making. He was updated on her current and previous hospitalization. He understands cardiology is considering placing a pacemaker and is in agreement with the plan. Discussed possible PPM placement with the pt as well, and she is agreeable, however she may not remember our conversation, she currently does not remember talking to cardiology. 09/27 Pt is now s/p PPM placement w/ Dr. Pruitt RULE OUT CVA Brain MRI - no acute CVA RULE OUT SEIZURE As a history of brain tumor, status post resection EEG - IMPRESSION: This is an abnormal routine EEG due to generalized background slowing suggestive of a non specific encephalopathy. No epileptiform activity is seen. Acute coronary syndrome unlikely as patient has negative troponin, no chest pain Hypoglycemia ruled out Infection unlikely as urinalysis, chest x-ray negative 10/01 stable overall awaiting placement 10/02 Positive headache, dizziness today No changes in telemetry CT head: No acute process Continue supportive care Continue to monitor close 10/03 PM dressing changed today PM function checked- appropriately functioning will need to ff up with Operational Review Sergeant on discharge Neck Pain likely muscular Lidoderm Patch, Toradol PRN DIABETES TYPE 2 Insulin sliding scale Hold metformin HYPERTENSION - with marginal blood pressures on admission - now improved, will resume BP meds 4/r BP stable overall on Lisinopril 5mg po daily HYPOTHYROIDISM TSH 2.2 BRAIN TUMOR S/P RESECTION SCHIZOPHRENIA Re-Started on clozapine (was discharged on lower dose than her usual actually) during her last admission Initially held clozapine on admission as this may cause bradycardia, syncope - as above, discussed w/ psychiatry - recommend to continue clozapine (pt was previously on higher dose and was discharged on 100) Psychiatry consulted 10/02 Requested psychiatry service to perform MoCA on patient for purposes of obtaining guardianship for the patient per case management service Migraine Chronic anemia Recurrent UTI Constipation - continue bowel regimen - closely monitor, as pt has tendency for severe constipation (previous admission) DVT prophylaxis Lovenox for DVT prophylaxis CODE STATUS Full code as per patient Disposition Will need to transition to shelter facility Admission and Anticipated Discharge Date Admission Date: September 25, 2023 Subjective ff up for syncope, etc seen resting in bedside chair not in distress having some neck pain- more on the left side no chest pain, dyspnea, palpitations, dizziness no other symptoms Review of Systems Review of Systems: all noted and negative except for above Physical Exam Physical Exam: General- oriented x 1-2, not in distress, speaks in sentences with no effort or accessory muscle use Eyes- anicteric Neck- no JVD mild tenderness posterior neck Lungs- clear breath sounds bilaterally, no rales/wheezes Heart- normal rate, regular rhythm; no murmurs Abdomen- normal bowel sounds, nondistended, soft no tenderness Extremities- no pretibial edema, no calf tenderness Neuro- alert, oriented x 1-2; no gross focal neurologic deficits Skin- warm & dry Results & Data Results & Data Vital Signs (Past 12 Hours) Vital Signs Temp Pulse Pulse Resp BP Pulse Ox O2 Del Method 10/04/23 19:57 36.9 C 63 18 103/65 98 Room Air 10/04/23 17:22 66 10/04/23 16:07 37.5 C 68 16 111/63 97 Room Air 10/04/23 11:52 35.6 C L 67 16 129/71 98 Room Air 10/04/23 10:55 Room Air all noted and reviewed including below
--- NOTE | 2023-10-05 17:43 | Hospitalist Progress Note ---
Date of Service October 05, 2023 Assessment & Plan (1) Weakness: (2) Syncope: Plan: per previous hospitalist notes with addendum: 73 yo female with history of diabetes type 2, hypertension, dyslipidemia, hypothyroidism, brain tumor s/p resection, schizophrenia, migraine, anemia, recurrent UTIs Presenting today after being discharged from [facility] yesterday for weakness and a syncopal episode while at the ER triage area. WEAKNESS, SYNCOPE LIKELY SECONDARY TO ORTHOSTATIC HYPOTENSION,POSSIBLE UNDERLYING SICK SINUS SYNDROME Patient recently admitted to [facility] for pneumonia, respiratory failure s/p intubation, UTI, delirium, stercoral colitis from constipation And was observed to have bradycardia, metoprolol reduced in dose. While at [facility], patient noted to have borderline blood pressure and bradycardia. Amlodipine, lisinopril, metoprolol subsequently discontinued She has been off these medications for a few days now. She was discharged from [facility] day prior admission She presented with weakness and syncope in the setting of marginal blood pressure and sinus bradycardia in the 50s She had dry oral mucosa and low sodium indicating dehydration. IV NSS - now stopped TSH wnl, cortisol level 12.58 wnl Had a recent echo done in August 2023 which showed preserved ejection fraction, no significant valvular abnormalities Held clozapine initially on admission as syncope, bradycardia listed as adverse effects - discussed w/ psychiatry - recommend to continue clozapine (pt was previously on higher dose and was discharged on 100) Cardiology consulted - considering PPM 09/26 - Received contact number from for Dimitris Peterson ([phone]) pt's nephew. He resides in [place]. He is willing to help with decision making. He was updated on her current and previous hospitalization. He understands cardiology is considering placing a pacemaker and is in agreement with the plan. Discussed possible PPM placement with the pt as well, and she is agreeable, however she may not remember our conversation, she currently does not remember talking to cardiology. 09/27 Pt is now s/p PPM placement w/ Dr. Pruitt RULE OUT CVA Brain MRI - no acute CVA RULE OUT SEIZURE As a history of brain tumor, status post resection EEG - IMPRESSION: This is an abnormal routine EEG due to generalized background slowing suggestive of a non specific encephalopathy. No epileptiform activity is seen. Acute coronary syndrome unlikely as patient has negative troponin, no chest pain Hypoglycemia ruled out Infection unlikely as urinalysis, chest x-ray negative 10/01 stable overall awaiting placement 10/02 Positive headache, dizziness today No changes in telemetry CT head: No acute process Continue supportive care Continue to monitor close 10/03 PM dressing changed today PM function checked- appropriately functioning will need to ff up with Commissioning Agent on discharge 10/04 Remains stable overall Neck Pain likely muscular Lidoderm Patch, Toradol PRN Improving Continue present regimen DIABETES TYPE 2 Insulin sliding scale Hold metformin HYPERTENSION - with marginal blood pressures on admission - now improved, will resume BP meds 10/04 BP stable overall on Lisinopril 5mg po daily HYPOTHYROIDISM TSH 2.2 BRAIN TUMOR S/P RESECTION SCHIZOPHRENIA Re-Started on clozapine (was discharged on lower dose than her usual actually) during her last admission Initially held clozapine on admission as this may cause bradycardia, syncope - as above, discussed w/ psychiatry - recommend to continue clozapine (pt was previously on higher dose and was discharged on 100) Psychiatry consulted 10/02 Requested psychiatry service to perform MoCA on patient for purposes of obtaining guardianship for the patient per case management service: noted Will be filling out via expert report form with assistance of Dr. Young from behavioral unit service Migraine Chronic anemia Recurrent UTI Constipation - continue bowel regimen - closely monitor, as pt has tendency for severe constipation (previous admission) DVT prophylaxis Lovenox for DVT prophylaxis CODE STATUS Full code as per patient Disposition Will need to transition to prison facility Admission and Anticipated Discharge Date Admission Date: September 25, 2023 Subjective Follow-up for syncope, status post pacemaker placement, etc. Resting in chair, not in distress Comfortable Has mild left neck/shoulder pain, mostly coming from the pacemaker surgical site according to the patient Has mild headache No other new symptoms Review of Systems Review of Systems: all noted and negative except for above Physical Exam Physical Exam: General- oriented x 2, not in distress, speaks in sentences with no effort or accessory muscle use Eyes- anicteric Neck- no JVD Lungs- clear breath sounds bilaterally, no crackles or wheezing Heart- normal rate, regular rhythm; no murmurs Pacemaker site: Dressing in place, no bleeding or discharge Abdomen- normal bowel sounds, nondistended, soft, nontender Extremities- no pretibial edema, no calf tenderness Neuro- alert, oriented x 2; no gross focal neurologic deficits Skin- warm & dry Results & Data Results & Data Vital Signs (Past 12 Hours) Vital Signs Temp Pulse Pulse Resp BP Pulse Ox O2 Del Method 10/05/23 16:52 77 10/05/23 15:53 37.6 C H 74 16 105/62 97 Room Air 10/05/23 12:02 37.9 C H 74 16 106/57 L 97 Room Air 10/05/23 09:07 63 10/05/23 09:04 Room Air 10/05/23 08:23 36.8 C 64 16 119/73 99 Room Air all noted and reviewed including below
--- NOTE | 2023-10-06 16:28 | Hospitalist Progress Note ---
Date of Service October 06, 2023 Assessment & Plan (1) Weakness: (2) Syncope: Plan: per previous hospitalist notes with addendum: 73 yo female with history of diabetes type 2, hypertension, dyslipidemia, hypothyroidism, brain tumor s/p resection, schizophrenia, migraine, anemia, recurrent UTIs Presenting today after being discharged from [facility] yesterday for weakness and a syncopal episode while at the ER triage area. WEAKNESS, SYNCOPE LIKELY SECONDARY TO ORTHOSTATIC HYPOTENSION,POSSIBLE UNDERLYING SICK SINUS SYNDROME Patient recently admitted to [facility] for pneumonia, respiratory failure s/p intubation, UTI, delirium, stercoral colitis from constipation And was observed to have bradycardia, metoprolol reduced in dose. While at [facility], patient noted to have borderline blood pressure and bradycardia. Amlodipine, lisinopril, metoprolol subsequently discontinued She has been off these medications for a few days now. She was discharged from [facility] day prior admission She presented with weakness and syncope in the setting of marginal blood pressure and sinus bradycardia in the 50s She had dry oral mucosa and low sodium indicating dehydration. IV NSS - now stopped TSH wnl, cortisol level 12.58 wnl Had a recent echo done in August 2023 which showed preserved ejection fraction, no significant valvular abnormalities Held clozapine initially on admission as syncope, bradycardia listed as adverse effects - discussed w/ psychiatry - recommend to continue clozapine (pt was previously on higher dose and was discharged on 100) Cardiology consulted - considering PPM 09/26 - Received contact number from for Dimitris Peterson ([phone]) pt's nephew. He resides in [place]. He is willing to help with decision making. He was updated on her current and previous hospitalization. He understands cardiology is considering placing a pacemaker and is in agreement with the plan. Discussed possible PPM placement with the pt as well, and she is agreeable, however she may not remember our conversation, she currently does not remember talking to cardiology. 09/27 Pt is now s/p PPM placement w/ Dr. Pruitt RULE OUT CVA Brain MRI - no acute CVA RULE OUT SEIZURE As a history of brain tumor, status post resection EEG - IMPRESSION: This is an abnormal routine EEG due to generalized background slowing suggestive of a non specific encephalopathy. No epileptiform activity is seen. Acute coronary syndrome unlikely as patient has negative troponin, no chest pain Hypoglycemia ruled out Infection unlikely as urinalysis, chest x-ray negative 10/01 stable overall awaiting placement 10/02 Positive headache, dizziness today No changes in telemetry CT head: No acute process Continue supportive care Continue to monitor close 10/03 PM dressing changed today PM function checked- appropriately functioning will need to ff up with Chief Of Hospital Medicine on discharge 10/05 Remains stable overall Neck Pain likely muscular Lidoderm Patch, Toradol PRN Improving Continue present regimen DIABETES TYPE 2 Insulin sliding scale Hold metformin HYPERTENSION - with marginal blood pressures on admission - now improved, will resume BP meds 10/05 BP stable overall on Lisinopril 5mg po daily HYPOTHYROIDISM TSH 2.2 BRAIN TUMOR S/P RESECTION SCHIZOPHRENIA Re-Started on clozapine (was discharged on lower dose than her usual actually) during her last admission Initially held clozapine on admission as this may cause bradycardia, syncope - as above, discussed w/ psychiatry - recommend to continue clozapine (pt was previously on higher dose and was discharged on 100) Psychiatry consulted 10/02 Requested psychiatry service to perform MoCA on patient for purposes of obtaining guardianship for the patient per case management service: noted Will be filling out via expert report form with assistance of Dr. Young from behavioral unit service Migraine Chronic anemia Recurrent UTI Constipation - continue bowel regimen - closely monitor, as pt has tendency for severe constipation (previous admission) DVT prophylaxis Lovenox for DVT prophylaxis CODE STATUS Full code as per patient Disposition Will need to transition to [facility] facility Admission and Anticipated Discharge Date Admission Date: September 25, 2023 Subjective Follow-up for syncope, status post maker placement placement, etc. Seen resting in bed, comfortable, not in distress States she feels fine overall No headache, no neck pain No other new symptoms Review of Systems Review of Systems: all noted and negative except for above Physical Exam Physical Exam: General- oriented x 2, not in distress, speaks in sentences with no effort or accessory muscle use Eyes- anicteric Neck- no JVD Lungs- clear breath sounds bilaterally, no rales/wheezes Heart- normal rate, regular rhythm; no murmurs Pacemaker site: No bleeding or discharge Abdomen- normal bowel sounds, nondistended, soft, nontender Extremities- no pretibial edema, no calf tenderness Neuro- alert, oriented x 2; no gross focal neurologic deficits Skin- warm & dry Results & Data Results & Data Vital Signs (Past 12 Hours) Vital Signs Temp Pulse Pulse Resp BP Pulse Ox O2 Del Method 10/06/23 15:27 36.9 C 59 L 18 113/66 99 Room Air 10/06/23 12:33 37.3 C 64 18 116/65 100 Room Air 10/06/23 07:38 36.5 C 59 L 20 145/78 H 100 Room Air 10/06/23 06:01 60 all noted and reviewed including below
--- NOTE | 2023-10-07 14:33 | Hospitalist Progress Note ---
Date of Service October 07, 2023 Assessment & Plan (1) Weakness: (2) Syncope: Plan: per previous hospitalist notes with addendum: 73 yo female with history of diabetes type 2, hypertension, dyslipidemia, hypothyroidism, brain tumor s/p resection, schizophrenia, migraine, anemia, recurrent UTIs Presenting today after being discharged from [facility] yesterday for weakness and a syncopal episode while at the ER triage area. WEAKNESS, SYNCOPE LIKELY SECONDARY TO ORTHOSTATIC HYPOTENSION,POSSIBLE UNDERLYING SICK SINUS SYNDROME Patient recently admitted to [facility] for pneumonia, respiratory failure s/p intubation, UTI, delirium, stercoral colitis from constipation And was observed to have bradycardia, metoprolol reduced in dose. While at [facility], patient noted to have borderline blood pressure and bradycardia. Amlodipine, lisinopril, metoprolol subsequently discontinued She has been off these medications for a few days now. She was discharged from [facility] day prior admission She presented with weakness and syncope in the setting of marginal blood pressure and sinus bradycardia in the 50s She had dry oral mucosa and low sodium indicating dehydration. IV NSS - now stopped TSH wnl, cortisol level 12.58 wnl Had a recent echo done in August 2023 which showed preserved ejection fraction, no significant valvular abnormalities Held clozapine initially on admission as syncope, bradycardia listed as adverse effects - discussed w/ psychiatry - recommend to continue clozapine (pt was previously on higher dose and was discharged on 100) Cardiology consulted - considering PPM 09/26 - Received contact number from for Dimitris Peterson ([phone]) pt's nephew. He resides in [place]. He is willing to help with decision making. He was updated on her current and previous hospitalization. He understands cardiology is considering placing a pacemaker and is in agreement with the plan. Discussed possible PPM placement with the pt as well, and she is agreeable, however she may not remember our conversation, she currently does not remember talking to cardiology. 09/27 Pt is now s/p PPM placement w/ Dr. Pruitt RULE OUT CVA Brain MRI - no acute CVA RULE OUT SEIZURE As a history of brain tumor, status post resection EEG - IMPRESSION: This is an abnormal routine EEG due to generalized background slowing suggestive of a non specific encephalopathy. No epileptiform activity is seen. Acute coronary syndrome unlikely as patient has negative troponin, no chest pain Hypoglycemia ruled out Infection unlikely as urinalysis, chest x-ray negative 10/01 stable overall awaiting placement 10/02 Positive headache, dizziness today No changes in telemetry CT head: No acute process Continue supportive care Continue to monitor close 10/03 PM dressing changed today PM function checked- appropriately functioning will need to ff up with Acid Splicer on discharge 10/05 Remains stable overall 10/06 Stable NECK PAIN likely muscular Lidoderm Patch, Toradol PRN Resolved HEADACHE Possible migraine attack CT head no signs of acute process Toradol as needed, Imitrex as needed DIABETES TYPE 2 Insulin sliding scale Hold metformin HYPERTENSION - with marginal blood pressures on admission - now improved, will resume BP meds 10/06 BP stable overall on Lisinopril 5mg po daily HYPOTHYROIDISM TSH 2.2 BRAIN TUMOR S/P RESECTION SCHIZOPHRENIA Re-Started on clozapine (was discharged on lower dose than her usual actually) during her last admission Initially held clozapine on admission as this may cause bradycardia, syncope - as above, discussed w/ psychiatry - recommend to continue clozapine (pt was previously on higher dose and was discharged on 100) Psychiatry consulted 10/06 Requested psychiatry service to perform MoCA on patient for purposes of obtaining guardianship for the patient per case management service: noted Will be filling out via expert report form with assistance of Dr. Young from behavioral unit service MIGRAINE CHRONIC ANEMIA RECURRENT UTI CONSTIPATION - continue bowel regimen - closely monitor, as pt has tendency for severe constipation (previous admission) DVT prophylaxis Lovenox for DVT prophylaxis CODE STATUS Full code as per patient Disposition Will need to transition to [facility] facility Admission and Anticipated Discharge Date Admission Date: September 25, 2023 Subjective Follow-up for syncope, status post pacemaker placement, etc. Seen resting in bed, sitting up, not in distress States she is having headache, reminiscent of her migraine attacks No dizziness, blurring of vision, weakness or numbness, neck pain No chest pain, palpitations, dizziness No other new symptoms Review of Systems Review of Systems: all noted and negative except for above Physical Exam Physical Exam: all noted and negative except for above Results & Data Results & Data Vital Signs (Past 12 Hours) Vital Signs Temp Pulse Resp BP Pulse Ox O2 Del Method 10/07/23 07:12 36.4 C L 59 L 18 165/79 H 100 Room Air
--- NOTE | 2023-10-08 15:52 | Psychiatric Progress Note ---
Date of Service October 08, 2023 Impression / Recommendations Impression Agree patient without catatonia or delirium but remains confused with poor recall. (1) Schizophrenia: (2) Major neurocognitive disorder: Plan her psychiatric condition appears to have improved since last contact on lower dose of Clozaril but she continues with evidence of significant cognitive decline. support guardianship as per hospitalist service as although she can express preferences on simple matters, she is unable to manage her finances or overall health care decision making for more complex matters. A clear/legal decision maker is necessary give length of hospitalizations and to avoid delaying necessary care in future, etc. Answered any/all questions for Dr. Marks to complete forms for [facility] Today I spent about 38 minutes on the case. This included meeting with the patient, reviewing the chart, coordination with hospitalist. Interval History Identifying Information as per Dr. Elmore on initial consultation: June is a 72-year-old female with a past psychiatric history of schizophrenia and has been on Clozaril for decades who admitted with presumed sepsis. She was medically stabilized but was catatonic and eventually, once clozapine was titrated up to a reasonable dose, improved. She also had a urinary tract infection at that time. Eventually she was able to transition to a rehab and discharged to her home and then was brought back to our hospital within 24 hours. She had had some dizziness and bradycardia. The medical staff are concerned that the clozapine could be possibly contributing to this. I was asked to meet with her to see if there is any other recommendations we can make. I was also asked whether or not she can consent for a pacemaker. Chief Complaint known to me from previous stay, Dr. Marks requesting assistance with guardianship paperwork. Subjective Subjective Patient was seen & assessed and interval progress reviewed. Patient remains intermittently confused, generally oriented to place/self but not time. Patient seems to question the name of her nephew. She voiced understanding that she needs help with her affairs while hospitalized/in facility. She was not able to tell me the name of her outpatient psychiatric provider/clinic or recognize the name of Clozaril, a drug she has taken for over 20 years but then stated, "yes, clozaril, that's correct." Procedures Performed Operation Date: 09/28/23 07:30 Actual Procedures p Pacer with A/V Leads (Dual) - Jeanette Pruitt, DO s Bundle of his Recording - Jeanette Pruitt DO Physical Exam Psychiatric Orientation: alert Apperance: + disheveled Eye Contact: + fair eye contact Motor Behavior: + abnormal motor movements (rare facial jerk) Speech: + abnormal rate/rhythm/volume of speech (nonspontaneous) Affect: + constricted affect Mood: no depressed mood Thought Process: + circumstantial thought process and + concrete thought process Thought Content: no delusions Suicidal Thoughts: denies suicidal thoughts Homicidal Thoughts: denies homicidal thoughts Hallucinations: no auditory hallucinations and no visual hallucinations Cognition: language grossly intact Insight: + limited insight Judgment: + limited judgement Vital Signs (Past 24 Hours) Last Vital Signs Temp 37.3 C 10/08/23 14:39 Pulse 59 L 10/08/23 14:39 Resp 16 10/08/23 14:39 BP 109/68 10/08/23 14:39 Pulse Ox 99 10/08/23 14:39 O2 Del Method Room Air 10/08/23 14:39 Results & Data ([facility]) Laboratory Results Laboratory Results - last 24 hr 10/07/23 10/07/23 10/08/23 16:46 20:53 07:51 POC Glucose 118 H 113 H 106 H 10/08/23 11:23 POC Glucose 145 H Current Inpatient Medications Current Inpatient Medications: Current Inpatient Medications Acetaminophen (Acetaminophen 325 Mg Tab) 650 mg PO Q4H PRN PRN Reason: Pain or Fever Stop: 10/25/23 20:44 Last Admin: 10/07/23 20:05 Dose: 650 mg Aspirin (Aspirin 81 Mg Ectab) 81 mg PO DAILY [facility] Stop: 10/26/23 08:59 Last Admin: 10/08/23 07:55 Dose: 81 mg Atorvastatin Calcium (Atorvastatin 20 Mg Tab) 20 mg PO HS [facility] Stop: 10/25/23 20:59 Last Admin: 10/07/23 20:05 Dose: 20 mg Clozapine (Clozapine 100 Mg Tab) 100 mg PO HS [facility]; Protocol Stop: 10/29/23 20:59 Last Admin: 10/07/23 20:06 Dose: 100 mg Cyanocobalamin (Cyanocobalamin (B-12) 500 Mcg Tablet) 1,000 mcg PO DAILY [facility] Stop: 10/26/23 08:59 Last Admin: 10/08/23 07:55 Dose: 1,000 mcg Dextrose (Dextrose 50% 50 Ml Syringe) 25 - 50 ml IV UD PRN; Protocol PRN Reason: Hypoglycemia Protocol Stop: 10/25/23 20:44 Docusate Sodium (Docusate Sodium 100 Mg Cap) 100 mg PO BID [facility] Stop: 10/28/23 10:29 Last Admin: 10/08/23 07:59 Dose: 100 mg Enoxaparin Sodium (Enoxaparin Inj 40 Mg/0.4 Ml Syr) 40 mg SQ QAM [facility] Stop: 11/01/23 12:29 Last Admin: 10/08/23 07:56 Dose: 40 mg Fluticasone Propionate (Fluticasone Propionate Na Spr 16 Gm Btl) 2 sprays NA DAILY [facility] Stop: 10/26/23 08:59 Last Admin: 10/08/23 07:55 Dose: 2 sprays Glucagon (Glucagon For Inj 1 Mg Vial) 1 mg SQ UD PRN; Protocol PRN Reason: Hypoglycemia Protocol Stop: 10/25/23 20:44 Glucose (Glucose 10 Tab/Tube) 4 - 8 tab PO UD PRN; Protocol PRN Reason: Hypoglycemia Treatment Stop: 10/25/23 20:44 Glucose (Glucose 40% Gel 15 Gm Tube) 15 - 30 gm PO UD PRN; Protocol PRN Reason: Hypoglycemia Protocol Stop: 10/25/23 20:44 Insulin Aspart (Insulin Aspart Per Unit Charge) 0 units SC ACHS [facility] Stop: 10/25/23 20:59 Last Admin: 10/08/23 12:28 Dose: 1 units Ketorolac Tromethamine (Ketorolac Tromethamine 15 Mg/Ml Vial) 15 mg IV Q6H PRN PRN Reason: Pain Stop: 10/09/23 10:55 Last Admin: 10/07/23 20:04 Dose: 15 mg Levothyroxine Sodium (Levothyroxine Sodium 50 Mcg Tablet) 50 mcg PO DAILYBB [facility] Stop: 10/26/23 06:29 Last Admin: 10/08/23 05:36 Dose: 50 mcg Lidocaine (Lidocaine 5% 1 Patch) 1 patch TD QAM [facility] Stop: 11/03/23 11:14 Last Admin: 10/08/23 07:56 Dose: 1 patch Lisinopril (Lisinopril 5 Mg Tab) 5 mg PO QAM [facility] Stop: 10/30/23 09:29 Last Admin: 10/08/23 07:55 Dose: 5 mg Loratadine (Loratadine 10 Mg Tab) 10 mg PO HS PRN PRN Reason: Allergy Symptoms Stop: 10/25/23 20:44 Magnesium Oxide (Magnesium Oxide 400 Mg Tab) 400 mg PO QAM [facility] Stop: 10/26/23 08:59 Last Admin: 10/08/23 07:56 Dose: 400 mg Miscellaneous (Carbohydrates For Hypoglycemia ) 15 - 30 gm PO UD PRN PRN Reason: Hypoglycemia Protocol Stop: 10/25/23 20:44 Miscellaneous (Remove Lidoderm Patch) 1 each N/A DAILY@2100 [facility] Stop: 11/03/23 20:59 Last Admin: 10/07/23 20:15 Dose: 1 each Pantoprazole Sodium (Pantoprazole 40 Mg Tab) 40 mg PO HS [facility] Stop: 10/25/23 20:59 Last Admin: 10/07/23 20:05 Dose: 40 mg Polyethylene Glycol (Polyethylene (Miralax) 17 Gm Pack) 17 gm PO BID [facility] Stop: 10/28/23 10:14 Last Admin: 10/08/23 07:59 Dose: 17 gm Potassium Chloride (Potassium Chloride 10 Meq Tabcr) 10 meq PO BID [facility] Stop: 10/26/23 08:59 Last Admin: 10/08/23 07:59 Dose: 10 meq Sumatriptan Succinate (Sumatriptan Succinate 100 Mg Tab) 100 mg PO DAILY PRN PRN Reason: Headache Stop: 10/25/23 20:44 Last Admin: 10/08/23 08:32 Dose: 100 mg
--- NOTE | 2023-10-08 17:58 | Hospitalist Progress Note ---
Date of Service October 08, 2023 Assessment & Plan (1) Weakness: (2) Syncope: Plan: per previous hospitalist notes with addendum: 73 yo female with history of diabetes type 2, hypertension, dyslipidemia, hypothyroidism, brain tumor s/p resection, schizophrenia, migraine, anemia, recurrent UTIs Presenting today after being discharged from [facility] yesterday for weakness and a syncopal episode while at the ER triage area. WEAKNESS, SYNCOPE LIKELY SECONDARY TO ORTHOSTATIC HYPOTENSION,POSSIBLE UNDERLYING SICK SINUS SYNDROME Patient recently admitted to [facility] for pneumonia, respiratory failure s/p intubation, UTI, delirium, stercoral colitis from constipation And was observed to have bradycardia, metoprolol reduced in dose. [facility], patient noted to have borderline blood pressure and bradycardia. Amlodipine, lisinopril, metoprolol subsequently discontinued She has been off these medications for a few days now. [facility] admission She presented with weakness and syncope in the setting of marginal blood pressure and sinus bradycardia in the 50s She had dry oral mucosa and low sodium indicating dehydration. IV NSS - now stopped TSH wnl, cortisol level 12.58 wnl Had a recent echo done in August 2023 which showed preserved ejection fraction, no significant valvular abnormalities Held clozapine initially on admission as syncope, bradycardia listed as adverse effects - discussed w/ psychiatry - recommend to continue clozapine (pt was previously on higher dose and was discharged on 100) Cardiology consulted - considering PPM 09/26 - Received contact number from for Dimitris Peterson ([phone]) pt's nephew. He resides in [place]. He is willing to help with decision making. He was updated on her current and previous hospitalization. He understands cardiology is considering placing a pacemaker and is in agreement with the plan. Discussed possible PPM placement with the pt as well, and she is agreeable, however she may not remember our conversation, she currently does not remember talking to cardiology. 09/27 Pt is now s/p PPM placement w/ Dr. Pruitt RULE OUT CVA Brain MRI - no acute CVA RULE OUT SEIZURE As a history of brain tumor, status post resection EEG - IMPRESSION: This is an abnormal routine EEG due to generalized background slowing suggestive of a non specific encephalopathy. No epileptiform activity is seen. Acute coronary syndrome unlikely as patient has negative troponin, no chest pain Hypoglycemia ruled out Infection unlikely as urinalysis, chest x-ray negative 10/01 stable overall awaiting placement 10/02 Positive headache, dizziness today No changes in telemetry CT head: No acute process Continue supportive care Continue to monitor close 10/03 PM dressing changed today PM function checked- appropriately functioning will need to ff up with Pain[employer] on discharge 10/05 Remains stable overall 10/06 Stable 10/07 Stable overall NECK PAIN likely muscular Lidoderm Patch, Toradol PRN Resolved HEADACHE Possible migraine attack CT head no signs of acute process Toradol as needed, Imitrex as needed DIABETES TYPE 2 Insulin sliding scale Hold metformin HYPERTENSION - with marginal blood pressures on admission - now improved, will resume BP meds 10/07 BP stable overall on Lisinopril 5mg po daily HYPOTHYROIDISM TSH 2.2 BRAIN TUMOR S/P RESECTION SCHIZOPHRENIA Re-Started on clozapine (was discharged on lower dose than her usual actually) during her last admission Initially held clozapine on admission as this may cause bradycardia, syncope - as above, discussed w/ psychiatry - recommend to continue clozapine (pt was previously on higher dose and was discharged on 100) Psychiatry consulted 10/06 Requested psychiatry service to perform MoCA on patient for purposes of obtaining guardianship for the patient per case management service: noted Will be filling out via expert report form with assistance of Dr. Young from behavioral unit service 10/07 Paperwork for guardianship application process completed with assistance of psychiatrist Dr. Tsang Will submit to case management MIGRAINE CHRONIC ANEMIA RECURRENT UTI CONSTIPATION - continue bowel regimen - closely monitor, as pt has tendency for severe constipation (previous admission) DVT prophylaxis Lovenox for DVT prophylaxis CODE STATUS Full code as per patient Disposition Will need to transition to jail facility Admission and Anticipated Discharge Date Admission Date: September 25, 2023 Subjective Follow-up for syncope, status post pacemaker placement, etc. Seen resting in bed, comfortable, not in distress Has mild headache No focal weakness or numbness or any other neurologic symptoms no chest pain, dyspnea, palpitations, dizziness Otherwise feels fine overall No other new symptoms Review of Systems Review of Systems: all noted and negative except for above Physical Exam Physical Exam: General- oriented x 2, not in distress, speaks in sentences with no effort or accessory muscle use Eyes- anicteric Neck- no JVD Lungs- clear BS BL Heart- normal rate, regular rhythm; no murmurs Pacemaker site: No bleeding or discharge Abdomen- normal bowel sounds, nondistended, soft, nontender Extremities- no pretibial edema, no calf tenderness Neuro- alert, oriented x 3; no gross focal neurologic deficits Skin- warm & dry Results & Data Results & Data Vital Signs (Past 12 Hours) Vital Signs Temp Pulse Resp BP Pulse Ox O2 Del Method 10/08/23 14:39 37.3 C 59 L 16 109/68 99 Room Air 10/08/23 07:45 36.5 C 60 16 154/78 H 100 Room Air all noted and reviewed including below
[2023-10-09 10:04] LABS: Basophils # (auto) 0.03 K/uL (0.00-0.20); Basophils % (auto) 0.9 %; Hematocrit (blood only) 30.7 % (37.0-47.0); Hemoglobin 9.9 g/dl (12.0-16.0); Immature Granulocytes # (auto) 0.01 K/uL (0.01-0.20); Immature Granulocytes % (auto) 0.3 %; Lymphocytes # (auto) 1.53 K/uL (1.20-3.40); Lymphocytes % (auto) 48.3 %; Mean Corpuscular Hgb Conc 32.2 g/dL (32.0-36.0); Mean Corpuscular Volume 86.7 fL (80.0-100.0); Mean Platelet Volume 9.9 fL (9.4-12.4); Monocytes % (auto) 9.5 %; Platelet Count 209 K/uL (130-400); RDW Coefficient of Variation 14.6 % (11.5-14.5); RDW Standard Deviation 46.5 fL (36.4-46.3); Red Blood Count 3.54 M/uL (4.20-5.40); White Blood Count 3.17 K/ul (4.8-10.8)
[2023-10-09 10:15] LABS: BUN Creatinine Ratio 43.9 (10-20); Calcium 9.2 mg/dl (8.6-10.3); Creatinine Clr Calc Pharmacy 72.2 ml/min; Est GFR (African American) 105.8 ml/min; Est GFR (Non-African American) 91.3 ml/min; Potassium 4.2 mmol/L (3.5-5.1)
--- NOTE | 2023-10-09 14:34 | Hospitalist Progress Note ---
Date of Service October 09, 2023 Assessment & Plan (1) Weakness: (2) Syncope: Plan: per previous hospitalist notes with addendum: 73 yo female with history of diabetes type 2, hypertension, dyslipidemia, hypothyroidism, brain tumor s/p resection, schizophrenia, migraine, anemia, recurrent UTIs Presenting today after being discharged from [facility] yesterday for weakness and a syncopal episode while at the ER triage area. WEAKNESS, SYNCOPE LIKELY SECONDARY TO ORTHOSTATIC HYPOTENSION,POSSIBLE UNDERLYING SICK SINUS SYNDROME Patient recently admitted to [facility] for pneumonia, respiratory failure s/p intubation, UTI, delirium, stercoral colitis from constipation And was observed to have bradycardia, metoprolol reduced in dose. While at [facility] rehab, patient noted to have borderline blood pressure and bradycardia. Amlodipine, lisinopril, metoprolol subsequently discontinued She has been off these medications for a few days now. She was discharged from [facility] rehab day prior admission She presented with weakness and syncope in the setting of marginal blood pressure and sinus bradycardia in the 50s She had dry oral mucosa and low sodium indicating dehydration. CVA ruled out Brain MRI - no acute CVA IV NSS - now stopped TSH wnl, cortisol level 12.58 wnl Had a recent echo done in August 2023 which showed preserved ejection fraction, no significant valvular abnormalities Held clozapine initially on admission as syncope, bradycardia listed as adverse effects - discussed w/ psychiatry - recommend to continue clozapine (pt was previously on higher dose and was discharged on 100) Cardiology consulted - considering PPM 09/26 - Received contact number from for Dimitris Peterson ([phone]) pt's nephew. He resides in [place]. He is willing to help with decision making. He was updated on her current and previous hospitalization. He understands cardiology is considering placing a pacemaker and is in agreement with the plan. Discussed possible PPM placement with the pt as well, and she is agreeable, however she may not remember our conversation, she currently does not remember talking to cardiology. 09/27 Pt is now s/p PPM placement w/ Dr. Pruitt 10/08 Has remained stable for the past week PM dressing changed by cardiology service PM function checked- appropriately functioning will need to ff up with Development Spec on discharge NECK PAIN likely muscular Lidoderm Patch, Toradol PRN Resolved HEADACHE Possible migraine attack CT head no signs of acute process Toradol as needed, Imitrex as needed DIABETES TYPE 2 Insulin sliding scale Hold metformin HYPERTENSION - with marginal blood pressures on admission - now improved, will resume BP meds 10/08 BP stable overall on Lisinopril 5mg po daily HYPOTHYROIDISM TSH 2.2 BRAIN TUMOR S/P RESECTION SCHIZOPHRENIA Re-Started on clozapine (was discharged on lower dose than her usual actually) during her last admission Initially held clozapine on admission as this may cause bradycardia, syncope - as above, discussed w/ psychiatry - recommend to continue clozapine (pt was previously on higher dose and was discharged on 100) Psychiatry consulted 10/08 Paperwork for guardianship application process completed with assistance of psychiatrist Dr. Tsang Submitted to case management MIGRAINE CHRONIC ANEMIA RECURRENT UTI CONSTIPATION - continue bowel regimen - closely monitor, as pt has tendency for severe constipation (previous admission) DVT prophylaxis Lovenox for DVT prophylaxis CODE STATUS Full code as per patient Disposition Will need to transition to assisted facility Admission and Anticipated Discharge Date Admission Date: September 25, 2023 Subjective Follow-up for syncope, sinus bradycardia, status post pacemaker placement, etc. Seen resting in bed, sitting up, not in distress States she feels fine overall Has mild headache No nausea or vomiting Denies pain over the pacemaker site No chest pain, palpitations, dizziness No other new symptoms Review of Systems Review of Systems: all noted and negative except for above Physical Exam Physical Exam: General- oriented x 2, not in distress, speaks in sentences with no effort or accessory muscle use Eyes- anicteric Neck- no JVD Lungs- clear breath sounds bilaterally Heart- normal rate, regular rhythm; no murmurs Pacemaker site: No bleeding or discharge Abdomen- normal bowel sounds, nondistended, soft, nontender Extremities- no pretibial edema, no calf tenderness Neuro- alert, oriented x 2; no new gross focal neurologic deficits Skin- warm & dry Results & Data Results & Data Vital Signs (Past 12 Hours) Vital Signs Temp Pulse Resp BP Pulse Ox O2 Del Method 10/09/23 07:45 36.5 C 61 16 164/62 H 100 Room Air all noted and reviewed including below
[2023-10-10 08:09] LABS: Hematocrit (blood only) 34.4 % (37.0-47.0); Hemoglobin 11.5 g/dl (12.0-16.0); Mean Corpuscular Hemoglobin 28.5 pg (25.0-34.0); Mean Corpuscular Hgb Conc 33.4 g/dL (32.0-36.0); Mean Corpuscular Volume 85.1 fL (80.0-100.0); Mean Platelet Volume 10.7 fL (9.4-12.4); Platelet Count 219 K/uL (130-400); RDW Coefficient of Variation 14.5 % (11.5-14.5); RDW Standard Deviation 45.1 fL (36.4-46.3); Red Blood Count 4.04 M/uL (4.20-5.40); White Blood Count 4.97 K/ul (4.8-10.8)
[2023-10-10 09:02] LABS: Basophils # (auto) 0.05 K/uL (0.00-0.20); Eosinophils # (auto) 0.01 K/uL (0.00-0.50); Eosinophils % (auto) 0.2 %; Lymphocytes # (auto) 2.76 K/uL (1.20-3.40); Lymphocytes % (auto) 55.5 %; Monocytes # (auto) 0.46 K/uL (0.11-0.59); Monocytes % (auto) 9.3 %; Neutrophils # (auto) 1.49 K/uL (1.40-6.50)
--- NOTE | 2023-10-10 15:54 | Hospitalist Progress Note ---
Date of Service October 10, 2023 Assessment & Plan (1) Weakness: (2) Syncope: Plan: per previous hospitalist notes with addendum: 73 yo female with history of diabetes type 2, hypertension, dyslipidemia, hypothyroidism, brain tumor s/p resection, schizophrenia, migraine, anemia, recurrent UTIs Presenting to the hospital after being discharged from [facility] on the day prior to admission. Patient noted to have hypotension, bradycardia for which antihypertensives were removed. WEAKNESS, SYNCOPE LIKELY SECONDARY TO ORTHOSTATIC HYPOTENSION,POSSIBLE UNDERLYING SICK SINUS SYNDROME Patient recently admitted to [facility] for pneumonia, respiratory failure s/p intubation, UTI, delirium, stercoral colitis from constipation And was observed to have bradycardia, metoprolol reduced in dose. While at [facility] rehab, patient noted to have borderline blood pressure and bradycardia. Amlodipine, lisinopril, metoprolol subsequently discontinued She has been off these medications for a few days now. She was discharged from [facility] rehab day prior admission She presented with weakness and syncope in the setting of marginal blood pressure and sinus bradycardia in the 50s She had dry oral mucosa and low sodium indicating dehydration. CVA ruled out Brain MRI - no acute CVA 09/26 - Received contact number from for Dimitris Peterson ([phone]) pt's nephew. He resides in [place]. He is willing to help with decision making. He was upd ated on her current and previous hospitalization. He understands cardiology is considering placing a pacemaker and is in agreement with the plan. 09/27 Patient is now s/p PPM placement w/ Dr. Pruitt Has remained stable for the past week PM dressing changed by cardiology service PM function checked- appropriately functioning will need to ff up with Transit Manager on discharge NECK PAIN likely muscular Lidoderm Patch, Toradol PRN Resolved HEADACHE Possible migraine attack CT head no signs of acute process Toradol as needed, Imitrex as needed DIABETES TYPE 2 Insulin sliding scale Hold metformin HYPERTENSION - with marginal blood pressures on admission - now improved, will resume BP meds HYPOTHYROIDISM TSH 2.2 BRAIN TUMOR S/P RESECTION SCHIZOPHRENIA Re-Started on clozapine (was discharged on lower dose than her usual actually) during her last admission Initially held clozapine on admission as this may cause bradycardia, syncope - as above, discussed w/ psychiatry - recommend to continue clozapine (pt was previously on higher dose and was discharged on 100) Psychiatry consulted; Paperwork for guardianship application process completed with assistance of psychiatrist Dr. Tsang Submitted to case management MIGRAINE CHRONIC ANEMIA RECURRENT UTI CONSTIPATION - continue bowel regimen - closely monitor, as pt has tendency for severe constipation (previous admission) DVT prophylaxis Lovenox for DVT prophylaxis CODE STATUS Full code as per patient Disposition Will need to transition to intermediate facility Please note the above document was generated using voice recognition software. It may contain grammatical, syntax or spelling errors. Any formal questions or concerns about the content, text or information contained within the body of this dictation should be directly addressed to the provider for clarification Admission and Anticipated Discharge Date Admission Date: September 25, 2023 Subjective Patient seen and examined at bedside. Comfortable; not in distress. Denies fever, chills, chest pain, shortness of breath, abdominal pain or urinary symptoms. No significant overnight events Review of Systems Review of Systems: All systems reviewed & are unremarkable except as noted in Subjective Physical Exam Physical Exam: General- oriented x 2, not in distress, speaks in sentences with no effort or accessory muscle use Eyes- anicteric Neck- no JVD Lungs- clear breath sounds bilaterally Heart- normal rate, regular rhythm; no murmurs Pacemaker site: No bleeding or discharge Abdomen- normal bowel sounds, nondistended, soft, nontender Extremities- no pretibial edema, no calf tenderness Neuro- alert, oriented x 2; no new gross focal neurologic deficits Skin- warm & dry Results & Data Results & Data Vital Signs (Past 12 Hours) Vital Signs Temp Pulse Resp BP Pulse Ox O2 Del Method 10/10/23 15:30 36.9 C 60 16 132/79 100 Room Air 10/10/23 08:10 36.5 C 60 16 146/84 H 99 Room Air
--- NOTE | 2023-10-11 14:49 | Hospitalist Progress Note ---
Date of Service October 11, 2023 Assessment & Plan (1) Weakness: (2) Syncope: Plan: 73 yo female with history of diabetes type 2, hypertension, dyslipidemia, hypothyroidism, brain tumor s/p resection, schizophrenia, migraine, anemia, recurrent UTIs Presenting to the hospital after being discharged from [facility] on the day prior to admission. Patient noted to have hypotension, bradycardia for which antihypertensives were removed. WEAKNESS, SYNCOPE LIKELY SECONDARY TO ORTHOSTATIC HYPOTENSION,POSSIBLE UNDERLYING SICK SINUS SYNDROME Patient recently admitted to [facility] for pneumonia, respiratory failure s/p intubation, UTI, delirium, stercoral colitis from constipation And was observed to have bradycardia, metoprolol reduced in dose. While at the [facility], patient noted to have borderline blood pressure and bradycardia. Amlodipine, lisinopril, metoprolol subsequently discontinued She has been off these medications for a few days now. She was [facility] day prior admission She presented with weakness and syncope in the setting of marginal blood pressure and sinus bradycardia in the 50s She had dry oral mucosa and low sodium indicating dehydration. CVA ruled out Brain MRI - no acute CVA 09/26 - Received contact number from for Dimitris Johnsonager ([phone]) pt's nephew. He resides in [place]. He is willing to help with decision making. He was updated on her current and previous hospitalization. He understands cardiology is considering placing a pacemaker and is in agreement with the plan. 09/27 Patient is now s/p PPM placement w/ Dr. Pruitt Has remained stable for the past week PM dressing changed by cardiology service PM function checked- appropriately functioning will need to ff up with Coal Sample Tester on discharge NECK PAIN likely muscular Lidoderm Patch, Toradol PRN Resolved HEADACHE Possible migraine attack CT head no signs of acute process Toradol as needed, Imitrex as needed DIABETES TYPE 2 Insulin sliding scale Hold metformin HYPERTENSION - with marginal blood pressures on admission - now improved, will resume BP meds HYPOTHYROIDISM TSH 2.2 BRAIN TUMOR S/P RESECTION SCHIZOPHRENIA Re-Started on clozapine (was discharged on lower dose than her usual actually) during her last admission Initially held clozapine on admission as this may cause bradycardia, syncope - as above, previous provider discussed w/ psychiatry - recommend to continue clozapine (pt was previously on higher dose and was discharged on 100) Psychiatry consulted; Paperwork for guardianship application process completed with assistance of psychiatrist Dr. Tsang Submitted to case management MIGRAINE CHRONIC ANEMIA RECURRENT UTI CONSTIPATION - continue bowel regimen - closely monitor, as pt has tendency for severe constipation (previous admission) DVT prophylaxis Lovenox for DVT prophylaxis CODE STATUS Full code as per patient Disposition Will need to transition to retirement facility Please note the above document was generated using voice recognition software. It may contain grammatical, syntax or spelling errors. Any formal questions or concerns about the content, text or information contained within the body of this dictation should be directly addressed to the provider for clarification Admission and Anticipated Discharge Date Admission Date: September 25, 2023 Subjective Patient seen and examined at bedside. She reports that she is feeling well. Denies any fever, chills, chest pain or shortness of breath or abdominal pain. Review of Systems Review of Systems: All systems reviewed & are unremarkable except as noted in Subjective Physical Exam Physical Exam: General- oriented x 2, not in distress, speaks in sentences with no effort or accessory muscle use Eyes- anicteric Neck- no JVD Lungs- clear breath sounds bilaterally Heart- normal rate, regular rhythm; no murmurs Pacemaker site: No bleeding or discharge Abdomen- normal bowel sounds, nondistended, soft, nontender Extremities- no pretibial edema, no calf tenderness Neuro- alert, oriented x 2; no new gross focal neurologic deficits Skin- warm & dry Results & Data Results & Data Vital Signs (Past 12 Hours) Vital Signs Temp Pulse Resp BP Pulse Ox O2 Del Method 10/11/23 07:32 36.5 C 61 16 158/83 H 100 Room Air
[2023-10-11] MEDS: ACETAMINOPHEN 325 MG TAB PO SCH (15:26)
--- NOTE | 2023-10-12 14:08 | Hospitalist Progress Note ---
Date of Service October 12, 2023 Assessment & Plan (1) Weakness: (2) Syncope: Plan: 73 yo female with history of diabetes type 2, hypertension, dyslipidemia, hypothyroidism, brain tumor s/p resection, schizophrenia, migraine, anemia, recurrent UTIs Presenting to the hospital after being discharged from [facility] on the day prior to admission. Patient noted to have hypotension, bradycardia for which antihypertensives were removed. WEAKNESS, SYNCOPE LIKELY SECONDARY TO ORTHOSTATIC HYPOTENSION,POSSIBLE UNDERLYING SICK SINUS SYNDROME Patient recently admitted to [facility] for pneumonia, respiratory failure s/p intubation, UTI, delirium, stercoral colitis from constipation And was observed to have bradycardia, metoprolol reduced in dose. While at [facility] rehab, patient noted to have borderline blood pressure and bradycardia. Amlodipine, lisinopril, metoprolol subsequently discontinued She has been off these medications for a few days now. She was discharged from [facility] rehab day prior admission She presented with weakness and syncope in the setting of marginal blood pressure and sinus bradycardia in the 50s She had dry oral mucosa and low sodium indicating dehydration. CVA ruled out Brain MRI - no acute CVA 09/26 - Received contact number from for Dimitris Johnsonager ([phone]) pt's nephew. He resides in [place]. He is willing to help with decision making. He was updated on her current and previous hospitalization. He understands cardiology is considering placing a pacemaker and is in agreement with the plan. 09/27 Patient is now s/p PPM placement w/ Dr. Pruitt Has remained stable for the past week PM dressing changed by cardiology service PM function checked- appropriately functioning will need to ff up with Green Marketer on discharge NECK PAIN likely muscular Lidoderm Patch, Toradol PRN Resolved HEADACHE Possible migraine attack CT head no signs of acute process Imitrex as needed DIABETES TYPE 2 Insulin sliding scale Hold metformin HYPERTENSION - with marginal blood pressures on admission - now improved, will resume BP meds HYPOTHYROIDISM TSH 2.2 BRAIN TUMOR S/P RESECTION SCHIZOPHRENIA Re-Started on clozapine (was discharged on lower dose than her usual actually) during her last admission Initially held clozapine on admission as this may cause bradycardia, syncope - as above, previous provider discussed w/ psychiatry - recommend to continue clozapine (pt was previously on higher dose and was discharged on 100) Psychiatry consulted; Paperwork for guardianship application process completed with assistance of psychiatrist Dr. Good Submitted to case management MIGRAINE CHRONIC ANEMIA RECURRENT UTI CONSTIPATION - continue bowel regimen - closely monitor, as pt has tendency for severe constipation (previous admission) DVT prophylaxis Lovenox for DVT prophylaxis CODE STATUS Full code as per patient Disposition [facility] need [facility]. Case management on board Please note the above document was generated using voice recognition software. It may contain grammatical, syntax or spelling errors. Any formal questions or concerns about the content, text or information contained within the body of this dictation should be directly addressed to the provider for clarification Admission and Anticipated Discharge Date Admission Date: September 25, 2023 Subjective Patient seen and examined at bedside. She reports that she is feeling well. Denies any fever, chills, chest pain or shortness of breath or abdominal pain. Review of Systems Review of Systems: All systems reviewed & are unremarkable except as noted in Subjective Physical Exam Physical Exam: General- oriented x 2, not in distress, speaks in sentences with no effort or accessory muscle use Eyes- anicteric Neck- no JVD Lungs- clear breath sounds bilaterally Heart- normal rate, regular rhythm; no murmurs Pacemaker site: No bleeding or discharge Abdomen- normal bowel sounds, nondistended, soft, nontender Extremities- no pretibial edema, no calf tenderness Neuro- alert, oriented x 2; no new gross focal neurologic deficits Skin- warm & dry Results & Data Results & Data Vital Signs (Past 12 Hours) Vital Signs Temp Pulse Resp BP Pulse Ox O2 Del Method 10/12/23 07:30 36.5 C 64 16 148/81 H 100 Room Air
--- NOTE | 2023-10-13 13:53 | Hospitalist Progress Note ---
Date of Service October 13, 2023 Assessment & Plan (1) Weakness: (2) Syncope: Plan: 73 yo female with history of diabetes type 2, hypertension, dyslipidemia, hypothyroidism, brain tumor s/p resection, schizophrenia, migraine, anemia, recurrent UTIs Presenting to the hospital after being discharged from [facility] on the day prior to admission. Patient noted to have hypotension, bradycardia for which antihypertensives were removed. WEAKNESS, SYNCOPE LIKELY SECONDARY TO ORTHOSTATIC HYPOTENSION,POSSIBLE UNDERLYING SICK SINUS SYNDROME Patient recently admitted to [facility] for pneumonia, respiratory failure s/p intubation, UTI, delirium, stercoral colitis from constipation And was observed to have bradycardia, metoprolol reduced in dose. While at [facility], patient noted to have borderline blood pressure and bradycardia. Amlodipine, lisinopril, metoprolol subsequently discontinued She has been off these medications for a few days now. She was discharged from [facility] day prior admission She presented with weakness and syncope in the setting of marginal blood pressure and sinus bradycardia in the 50s She had dry oral mucosa and low sodium indicating dehydration. CVA ruled out Brain MRI - no acute CVA 09/26 - Received contact number from for Dimitris Johnsonager ([phone]) pt's nephew. He resides in [place]. He is willing to help with decision making. He was updated on her current and previous hospitalization. He understands cardiology is considering placing a pacemaker and is in agreement with the plan. 09/27 Patient is now s/p PPM placement w/ Dr. Pruitt Has remained stable for the past week PM dressing changed by cardiology service PM function checked- appropriately functioning will need to ff up with Minister on discharge NECK PAIN likely muscular Lidoderm Patch, Toradol PRN Resolved HEADACHE Possible migraine attack CT head no signs of acute process Imitrex as needed DIABETES TYPE 2 Insulin sliding scale Hold metformin HYPERTENSION - with marginal blood pressures on admission - now improved, will resume BP meds HYPOTHYROIDISM TSH 2.2 BRAIN TUMOR S/P RESECTION SCHIZOPHRENIA Re-Started on clozapine (was discharged on lower dose than her usual actually) during her last admission Initially held clozapine on admission as this may cause bradycardia, syncope - as above, previous provider discussed w/ psychiatry - recommend to continue clozapine (pt was previously on higher dose and was discharged on 100) Psychiatry consulted; Paperwork for guardianship application process completed with assistance of psychiatrist Dr. Good Submitted to case management MIGRAINE CHRONIC ANEMIA RECURRENT UTI CONSTIPATION - continue bowel regimen - closely monitor, as pt has tendency for severe constipation (previous admission) DVT prophylaxis Lovenox for DVT prophylaxis CODE STATUS Full code as per patient Disposition Will need to transition to care home facility. Case management on board Please note the above document was generated using voice recognition software. It may contain grammatical, syntax or spelling errors. Any formal questions or concerns about the content, text or information contained within the body of this dictation should be directly addressed to the provider for clarification Admission and Anticipated Discharge Date Admission Date: September 25, 2023 Subjective Patient seen and examined at bedside. Comfortable; not in distress. Denies fever, chills, chest pain, shortness of breath, abdominal pain or urinary symptoms. No significant overnight events Review of Systems Review of Systems: All systems reviewed & are unremarkable except as noted in Subjective Physical Exam Physical Exam: General- oriented x 2, not in distress, speaks in sentences with no effort or accessory muscle use Eyes- anicteric Neck- no JVD Lungs- clear breath sounds bilaterally Heart- normal rate, regular rhythm; no murmurs Pacemaker site: No bleeding or discharge Abdomen- normal bowel sounds, nondistended, soft, nontender Extremities- no pretibial edema, no calf tenderness Neuro- alert, oriented x 2; no new gross focal neurologic deficits Skin- warm & dry Results & Data Results & Data Vital Signs (Past 12 Hours) Vital Signs Temp Pulse Resp BP Pulse Ox O2 Del Method 10/13/23 07:56 36.4 C L 60 14 164/84 H 100 Room Air
[2023-10-13] MEDS: KETOROLAC TROMETHAMINE 15 MG/ML VIAL IV ONE (20:08)
--- NOTE | 2023-10-14 13:57 | Hospitalist Progress Note ---
Date of Service October 14, 2023 Assessment & Plan (1) Weakness: (2) Syncope: Plan: 73 yo female with history of diabetes type 2, hypertension, dyslipidemia, hypothyroidism, brain tumor s/p resection, schizophrenia, migraine, anemia, recurrent UTIs Presenting to the hospital after being discharged from [facility] on the day prior to admission. Patient noted to have hypotension, bradycardia for which antihypertensives were removed. WEAKNESS, SYNCOPE LIKELY SECONDARY TO ORTHOSTATIC HYPOTENSION,POSSIBLE UNDERLYING SICK SINUS SYNDROME Patient recently admitted to [facility] for pneumonia, respiratory failure s/p intubation, UTI, delirium, stercoral colitis from constipation And was observed to have bradycardia, metoprolol reduced in dose. While at [facility], patient noted to have borderline blood pressure and bradycardia. Amlodipine, lisinopril, metoprolol subsequently discontinued She has been off these medications for a few days now. She was discharged from [facility] day prior admission She presented with weakness and syncope in the setting of marginal blood pressure and sinus bradycardia in the 50s She had dry oral mucosa and low sodium indicating dehydration. CVA ruled out Brain MRI - no acute CVA 09/26 - Received contact number from for Dimitris Johnsonager ([phone]) pt's nephew. He resides in [place]. He is willing to help with decision making. He was updated on her current and previous hospitalization. He understands cardiology is considering placing a pacemaker and is in agreement with the plan. 09/27 Patient is now s/p PPM placement w/ Dr. Pruitt Has remained stable for the past week PM dressing changed by cardiology service PM function checked- appropriately functioning will need to ff up with Keyboard Operator on discharge NECK PAIN likely muscular Lidoderm Patch, Toradol PRN Resolved HEADACHE Possible migraine attack CT head no signs of acute process Imitrex as needed DIABETES TYPE 2 Insulin sliding scale Hold metformin HYPERTENSION - with marginal blood pressures on admission - now improved, will resume BP meds HYPOTHYROIDISM TSH 2.2 BRAIN TUMOR S/P RESECTION SCHIZOPHRENIA Re-Started on clozapine (was discharged on lower dose than her usual actually) during her last admission Initially held clozapine on admission as this may cause bradycardia, syncope - as above, previous provider discussed w/ psychiatry - recommend to continue clozapine (pt was previously on higher dose and was discharged on 100) Psychiatry consulted; Paperwork for guardianship application process completed with assistance of psychiatrist Dr. Good Submitted to case management MIGRAINE CHRONIC ANEMIA RECURRENT UTI CONSTIPATION - continue bowel regimen - closely monitor, as pt has tendency for severe constipation (previous admission) DVT prophylaxis Lovenox for DVT prophylaxis CODE STATUS Full code as per patient Disposition Will need to transition to correction facility. Case management on board Please note the above document was generated using voice recognition software. It may contain grammatical, syntax or spelling errors. Any formal questions or concerns about the content, text or information contained within the body of this dictation should be directly addressed to the provider for clarification Admission and Anticipated Discharge Date Admission Date: September 25, 2023 Subjective Patient comfortable; not in any distress. no overnight events. Review of Systems Review of Systems: All systems reviewed & are unremarkable except as noted in Subjective Physical Exam Physical Exam: General- oriented x 2, not in distress, speaks in sentences with no effort or accessory muscle use Eyes- anicteric Neck- no JVD Lungs- clear breath sounds bilaterally Heart- normal rate, regular rhythm; no murmurs Pacemaker site: No bleeding or discharge Abdomen- normal bowel sounds, nondistended, soft, nontender Extremities- no pretibial edema, no calf tenderness Neuro- alert, oriented x 2; no new gross focal neurologic deficits Skin- warm & dry Results & Data Results & Data Vital Signs (Past 12 Hours) Vital Signs Pulse Resp BP Pulse Ox O2 Del Method 10/14/23 11:47 67 16 105/60 100 Room Air 10/14/23 08:30 Room Air
[2023-10-14] MEDS: KETOROLAC TROMETHAMINE 15 MG/ML VIAL IV ONE (20:33)
[2023-10-14 21:11] LABS: Basophils # (auto) 0.02 K/uL (0.00-0.20); Basophils % (auto) 0.8 %; Hematocrit (blood only) 31.1 % (37.0-47.0); Hemoglobin 10.2 g/dl (12.0-16.0); Immature Granulocytes # (auto) 0.01 K/uL (0.01-0.20); Immature Granulocytes % (auto) 0.4 %; Lymphocytes % (auto) 20.9 %; Mean Corpuscular Hemoglobin 28.7 pg (25.0-34.0); Mean Corpuscular Hgb Conc 32.8 g/dL (32.0-36.0); Mean Corpuscular Volume 87.4 fL (80.0-100.0); Monocytes # (auto) 0.14 K/uL (0.11-0.59); Monocytes % (auto) 5.9 %; Neutrophils # (auto) 1.72 K/uL (1.40-6.50); Platelet Count 201 K/uL (130-400); RDW Coefficient of Variation 14.7 % (11.5-14.5); RDW Standard Deviation 47.3 fL (36.4-46.3); Red Blood Count 3.56 M/uL (4.20-5.40); White Blood Count 2.39 K/ul (4.8-10.8)
[2023-10-14 21:27] LABS: Albumin Globulin Ratio 1.9 (0.9-2); Albumin Level 3.7 gm/dl (3.4-5.0); Bilirubin,Total 0.3 mg/dl (0.2-1.0); Creatinine Clr Calc Pharmacy 53.7 ml/min; Est GFR (African American) 88.2 ml/min; Est GFR (Non-African American) 76.1 ml/min; Magnesium 1.8 mg/dl (1.7-2.4); Potassium 4.5 mmol/L (3.5-5.1); Total Protein 5.7 gm/dl (6.0-8.3)
[2023-10-14 21:33] LABS: Troponin I High Sensitivity 6.8 pg/ml (0-14)
--- NOTE | 2023-10-15 07:02 | XRay Report ---
XR chest 1V portable HISTORY: chest pain. new pacer placed COMPARISON: Chest 09/28/2023. FINDINGS: There is left-sided dual-chamber pacemaker. The leads appear intact. No pneumothorax. No pl eural effusions. The lungs are clear. The heart is borderline enlarged. This remains unchanged. No ac chi fractures. IMPRESSION: No significant change compared to the prior study. No acute process. ACT 112: Negative or not required by law. Electronically signed by: Doe Harper M.D. 10/15/2023 7:01 AM
--- NOTE | 2023-10-15 15:23 | Hospitalist Progress Note ---
Date of Service October 15, 2023 Assessment & Plan (1) Weakness: (2) Syncope: Plan: 73 yo female with history of diabetes type 2, hypertension, dyslipidemia, hypothyroidism, brain tumor s/p resection, schizophrenia, migraine, anemia, recurrent UTIs Presenting to the hospital after being discharged from [facility] on the day prior to admission. Patient noted to have hypotension, bradycardia for which antihypertensives were removed. WEAKNESS, SYNCOPE LIKELY SECONDARY TO ORTHOSTATIC HYPOTENSION,POSSIBLE UNDERLYING SICK SINUS SYNDROME Patient recently admitted to [facility] for pneumonia, respiratory failure s/p intubation, UTI, delirium, stercoral colitis from constipation And was observed to have bradycardia, metoprolol reduced in dose. While at [facility] rehab, patient noted to have borderline blood pressure and bradycardia. Amlodipine, lisinopril, metoprolol subsequently discontinued She has been off these medications for a few days now. She was discharged from [facility] day prior admission She presented with weakness and syncope in the setting of marginal blood pressure and sinus bradycardia in the 50s She had dry oral mucosa and low sodium indicating dehydration. CVA ruled out Brain MRI - no acute CVA 09/26 - Received contact number from for Dimitris Johnsonager ([phone]) pt's nephew. He resides in [place]. He is willing to help with decision making. He was updated on her current and previous hospitalization. He understands cardiology is considering placing a pacemaker and is in agreement with the plan. 09/27 Patient is now s/p PPM placement w/ Dr. Pruitt Has remained stable for the past week PM dressing changed by cardiology service PM function checked- appropriately functioning will need to ff up with Service Unit Operator [employer] on discharge Fever Patient had 1 episode of fever overnight on 10/13 Chest x-ray personally reviewedno acute finding Pacemaker incision siteno soakage or signs of infection Blood culture pending Urinalysis pending Monitor for fever NECK PAIN likely muscular Lidoderm Patch, Toradol PRN Resolved HEADACHE Possible migraine attack CT head no signs of acute process Imitrex as needed DIABETES TYPE 2 Insulin sliding scale Hold metformin HYPERTENSION - with marginal blood pressures on admission - now improved, will resume BP meds HYPOTHYROIDISM TSH 2.2 BRAIN TUMOR S/P RESECTION SCHIZOPHRENIA Re-Started on clozapine (was discharged on lower dose than her usual actually) during her last admission Initially held clozapine on admission as this may cause bradycardia, syncope - as above, previous provider discussed w/ psychiatry - recommend to continue clozapine (pt was previously on higher dose and was discharged on 100) Psychiatry consulted; Paperwork for guardianship application process completed with assistance of psychiatrist Dr. Tsang Submitted to case management MIGRAINE CHRONIC ANEMIA RECURRENT UTI CONSTIPATION - continue bowel regimen - closely monitor, as pt has tendency for severe constipation (previous admission) DVT prophylaxis Lovenox for DVT prophylaxis CODE STATUS Full code as per patient Disposition Will need to transition to assisted facility. Case management on board Please note the above document was generated using voice recognition software. It may contain grammatical, syntax or spelling errors. Any formal questions or concerns about the content, text or information contained within the body of this dictation should be directly addressed to the provider for clarification Admission and Anticipated Discharge Date Admission Date: September 25, 2023 Subjective Patient seen and examined at bedside. She is comfortable; not in distress. Patient had 1 episode of fever overnight of 38.6 C. No other significant events overnight Review of Systems Review of Systems: All systems reviewed & are unremarkable except as noted in Subjective Physical Exam Physical Exam: General- oriented x 2, not in distress, speaks in sentences with no effort or accessory muscle use Eyes- anicteric Neck- no JVD Lungs- clear breath sounds bilaterally Heart- normal rate, regular rhythm; no murmurs Pacemaker site: No bleeding or discharge Abdomen- normal bowel sounds, nondistended, soft, nontender Extremities- no pretibial edema, no calf tenderness Neuro- alert, oriented x 2; no new gross focal neurologic deficits Skin- warm & dry Results & Data Results & Data Vital Signs (Past 12 Hours) Vital Signs Temp Pulse Resp BP Pulse Ox O2 Del Method 10/15/23 10:11 Room Air 10/15/23 07:32 36.9 C 63 18 113/70 97 Room Air
--- NOTE | 2023-10-15 16:52 | Electrocardiogram Report ---
Test Reason : Blood Pressure : / mmHG Vent. Rate : 076 BPM Atrial Rate : 076 BPM P-R Int : 098 ms QRS Dur : 070 ms QT Int : 384 ms P-R-T Axes : 064 028 011 degrees QTc Int : 432 ms Sinus rhythm with Premature supraventricular complexes Low voltage QRS Borderline ECG When compared with ECG of 29-SEP-2023 06:07, Premature supraventricular complexes are now Present Nonspecific T wave abnormality now evident in Anterior leads Confirmed by Shen Garcia ([id number]) on 10/15/2023 4:52:06 PM Referred By: REFERRED SELF Confirmed By:Cesar Garcia
[2023-10-16 07:14] LABS: Hematocrit (blood only) 30.4 % (37.0-47.0); Hemoglobin 10.1 g/dl (12.0-16.0); Mean Corpuscular Hemoglobin 28.5 pg (25.0-34.0); Mean Corpuscular Hgb Conc 33.2 g/dL (32.0-36.0); Mean Corpuscular Volume 85.6 fL (80.0-100.0); Mean Platelet Volume 10.1 fL (9.4-12.4); Platelet Count 170 K/uL (130-400); RDW Coefficient of Variation 14.7 % (11.5-14.5); RDW Standard Deviation 46.4 fL (36.4-46.3); Red Blood Count 3.55 M/uL (4.20-5.40); White Blood Count 1.79 K/ul (4.8-10.8)
[2023-10-16] MEDS ORDERED: VANCOMYCIN CONSULT ACTIVE PRN (07:19)
[2023-10-16] MEDS ORDERED: VANCOMYCIN HCL 1,000 MG in SODIUM CHLORIDE 0.9% 500 ML IV ONE (07:19)
[2023-10-16] MEDS ORDERED: cefTRIAXone SODIUM 2,000 MG in DEXTROSE 5 % MINI-B 50 ML IV SCH (07:30)
[2023-10-16 07:39] LABS: BUN Creatinine Ratio 39.3 (10-20); Calcium 9.1 mg/dl (8.6-10.3); Creatinine Clr Calc Pharmacy 73.9 ml/min; Est GFR (African American) 106.5 ml/min; Est GFR (Non-African American) 91.9 ml/min; Potassium 3.9 mmol/L (3.5-5.1)
[2023-10-16 07:48] LABS: Basophils # (auto) 0.01 K/uL (0.00-0.20); Basophils % (auto) 0.6 %; Immature Granulocytes # (auto) 0.02 K/uL (0.01-0.20); Immature Granulocytes % (auto) 1.1 %; Lymphocytes # (auto) 1.16 K/uL (1.20-3.40); Lymphocytes % (auto) 64.8 %; Monocytes # (auto) 0.17 K/uL (0.11-0.59); Monocytes % (auto) 9.5 %; Neutrophils # (auto) 0.43 K/uL (1.40-6.50); RBC Morphology Unremarkable
[2023-10-16] MEDS ORDERED: ERTAPENEM SODIUM 1,000 MG in SYRINGE 0 ML IV SCH (08:00)
[2023-10-16 08:38] LABS: Adenovirus PCR Not Detected (NotDetected); Bordetella parapertussis PCR Not Detected (NotDetected); Bordetella pertussis PCR Not Detected (NotDetected); Chlamydia pneumoniae PCR Not Detected (NotDetected); Coronavirus 229E PCR Not Detected (NotDetected); Coronavirus CoV-2 (COVID19)PCR Not Detected (NotDetected); Coronavirus HKU1 PCR Not Detected (NotDetected); Coronavirus NL63 PCR Not Detected (NotDetected); Coronavirus OC43PCR Not Detected (NotDetected); Human Metapneumovirus PCR Not Detected (NotDetected); Influenza A PCR Not Detected (NotDetected); Influenza B PCR Not Detected (NotDetected); Mycoplasma pneumoniae PCR Not Detected (NotDetected); Parainfluenza Virus 1 PCR Not Detected (NotDetected); Parainfluenza Virus 2 PCR Not Detected (NotDetected); Parainfluenza Virus 3 PCR Not Detected (NotDetected); Parainfluenza Virus 4 PCR Not Detected (NotDetected); Respiratory Syncytial VirusPCR Not Detected (NotDetected); Rhinovirus/Enterovirus PCR Not Detected (NotDetected)
[2023-10-16] MEDS: MEROPENEM 500 MG in SYRINGE 0 ML IV SCH (09:20)
[2023-10-16] MEDS: VANCOMYCIN HCL 1,250 MG in SODIUM CHLORIDE 0.9% 250 ML IV ONE (09:20)
[2023-10-16 10:18] LABS: Appearance Urine Clear (Clear); Bacteria Urine Automated None Seen (None Seen); Bilirubin Urine Negative (Negative); Blood Urine Trace (Negative); Cast Urine Automated 0-2 /lpf (0-2); Color Urine Yellow; Glucose Urine UA Negative (Negative); Ketones Urine Negative (Negative); Leukocyte Esterase Urine Trace (Negative); Nitrite Urine Negative (Negative); Protein Urine Negative (Negative); RBC Urine Automated 0-2 /hpf (0-2); Specific Gravity Urine 1.018 (1.000-1.030); Urobilinogen Urine Negative (Negative); pH Urine 5.5 (4.5-7.5)
--- NOTE | 2023-10-16 10:54 | Pharmacy Report ---
Pharmacy PK ABX Note - Date of Service October 16, 2023 - Assessment and Plan Assessment 73 year old F receiving vancomycin/meropenem for empiric treatment of febrile neutropenia. Tmax 39.5, ANC 430. Blood cultures from today pending, currently no urine specimen. Previous history of ESBL E. coli and Pseum[place]as in urine. Patient was on cloazpine therapy, this has been held d/t neutropenia. Plan Vancomycin * Loading dose: 1250 mg IV x 1 * Maintenance dose: 1000 mg IV every 12 hours * Regimen is predicted to achieve target AUC/VIVI of 400-600 mg/L.hr * Random level to be ordered if continued >48 hours Pharmacy will continue to follow and will adjust dose/frequency as necessary. Thank you. Pharmacy has transitioned to AUC monitoring for vancomycin. AUC/VIVI is the preferred PK/PD target and is associated with decreased risk of nephrotoxicity compared to traditional trough targets.
--- NOTE | 2023-10-16 12:55 | Psychiatric Progress Note ---
Date of Service October 16, 2023 Impression / Recommendations Impression Has been psychiatrically stable but given new ANC changes clozapine must be discontinued. Unfortunately this can sometimes lead to rebound psychosis so we'll monitor for this and can add on an alternative antipsychotic if this occurs. For now will hold off on starting any new antipsychotics while she receives empiric antibiotics. Overall, I spent a total of 35 minutes with this case including review of chart records, review of labwork, direct evaluation of the patient at bedside, counseling the patient, discussion of the patient with the hospitalist provider, discussion with the psychiatric liason during clinical rounds and documentation in the electronic health record. (1) Schizophrenia: (2) Major neurocognitive disorder: Plan -Discontinue clozapine given low ANC/neutropenia -Will continue to monitor for emergence of any psychiatric symptoms, may require alternative antipsychotic Interval History Identifying Information as per Dr. Elmore on initial consultation: June is a 72-year-old female with a past psychiatric history of schizophrenia and has been on Clozaril for decades who admitted with presumed sepsis. She was medically stabilized but was catatonic and eventually, once clozapine was titrated up to a reasonable dose, improved. She also had a urinary tract infection at that time. Eventually she was able to transition to a rehab and discharged to her home and then was brought back to our hospital within 24 hours. She had had some dizziness and bradycardia. The medical staff are concerned that the clozapine could be possibly contributing to this. I was asked to meet with her to see if there is any other recommendations we can make. I was also asked whether or not she can consent for a pacemaker. Chief Complaint "I'm tired today". Subjective Subjective Patient was seen & assessed and interval progress reviewed. Developed neutropenia. Today pleasant and resting, wakes easily and reports feeling tired but also happy because a friend visited her earlier. Eager to have her lunch. Denies any mood symptoms and no evidence of psychosis. Procedures Performed Operation Date: 09/28/23 07:30 Actual Procedures p Pacer with A/V Leads (Dual) - Jeanette Pruitt DO s Bundle of his Recording - Jeanette Pruitt, DO Physical Exam Vital Signs (Past 24 Hours) Last Vital Signs Temp 36.7 C 10/16/23 07:00 Pulse 62 10/16/23 07:00 Resp 12 10/16/23 07:00 BP 96/59 L 10/16/23 07:00 Pulse Ox 100 10/16/23 07:00 O2 Del Method Room Air 10/16/23 07:00 Results & Data ([facility]) Laboratory Results Laboratory Results - last 24 hr 10/15/23 10/15/23 10/16/23 16:57 20:39 06:15 WBC 1.79 L RBC 3.55 L Hgb 10.1 L Hct 30.4 L MCV 85.6 MCH 28.5 MCHC 33.2 RDW Std Deviation 46.4 H RDW Coeff of Cyn 14.7 H Plt Count 170 MPV 10.1 Immature Gran % (Auto) 1.1 Neut % (Auto) 24.0 Lymph % (Auto) 64.8 Elliott % (Auto) 9.5 Eos % (Auto) 0.0 Baso % (Auto) 0.6 Neut # (Auto) 0.43 L* Lymph # (Auto) 1.16 L Elliott # (Auto) 0.17 Eos # (Auto) 0.00 Baso # (Auto) 0.01 Immature Gran # (Auto) 0.02 RBC Morphology Unremarkable Sodium 135 L Potassium 3.9 Chloride 105 Carbon Dioxide 24 Anion Gap 6 BUN 22 Creatinine 0.56 L Est Cr Clr Drug Dosing 73.9 Est GFR ( Amer) 106.5 Est GFR (Non-Af Amer) 91.9 BUN/Creatinine Ratio 39.3 H Glucose 105 H POC Glucose 135 H 106 H Calcium 9.1 Urine Color Urine Appearance Urine pH Ur Specific Marshall Urine Protein Urine Glucose (UA) Urine Ketones Urine Blood Urine Nitrite Urine Bilirubin Urine Urobilinogen Ur Leukocyte Esterase Urine WBC (Auto) Urine RBC (Auto) U Hyaline Cast (Auto) U Epithel Cells (Auto) Urine Bacteria (Auto) Adenovirus (PCR) B. pertussis DNA (PCR) B.parapertussis DNA PCR C. pneumoniae DNA (PCR) Coronavirus OC43 (PCR) Coronavirus HKU1 (PCR) Coronavirus 229E (PCR) SARS-CoV-2 (PCR) Coronavirus NL63 (PCR) Human Metapneumovir PCR Influenza Type A (PCR) Influenza Type B (PCR) M. pneumoniae (PCR) Parainfluenza 1 (PCR) Parainfluenza 2 (PCR) Parainfluenza 3 (PCR) Parainfluenza 4 (PCR) RSV (PCR) Entero/Rhino (PCR) 10/16/23 10/16/23 10/16/23 07:47 11:31 Unknown WBC RBC Hgb Hct MCV MCH MCHC RDW Std Deviation RDW Coeff of Cyn Plt Count MPV Immature Gran % (Auto) Neut % (Auto) Lymph % (Auto) Elliott % (Auto) Eos % (Auto) Baso % (Auto) Neut # (Auto) Lymph # (Auto) Elliott # (Auto) Eos # (Auto) Baso # (Auto) Immature Gran # (Auto) RBC Morphology Sodium Potassium Chloride Carbon Dioxide Anion Gap BUN Creatinine Est Cr Clr Drug Dosing Est GFR ( Amer) Est GFR (Non-Af Amer) BUN/Creatinine Ratio Glucose POC Glucose 111 H 127 H Calcium Urine Color Yellow Urine Appearance Clear Urine pH 5.5 Ur Specific Marshall 1.018 Urine Protein Negative Urine Glucose (UA) Negative Urine Ketones Negative Urine Blood Trace H Urine Nitrite Negative Urine Bilirubin Negative Urine Urobilinogen Negative Ur Leukocyte Esterase Trace H Urine WBC (Auto) 6-10 H Urine RBC (Auto) 0-2 U Hyaline Cast (Auto) 0-2 U Epithel Cells (Auto) 3-5 H Urine Bacteria (Auto) None Seen Adenovirus (PCR) Not Detected B. pertussis DNA (PCR) Not Detected B.parapertussis DNA PCR Not Detected C. pneumoniae DNA (PCR) Not Detected Coronavirus OC43 (PCR) Not Detected Coronavirus HKU1 (PCR) Not Detected Coronavirus 229E (PCR) Not Detected SARS-CoV-2 (PCR) Not Detected Coronavirus NL63 (PCR) Not Detected Human Metapneumovir PCR Not Detected Influenza Type A (PCR) Not Detected Influenza Type B (PCR) Not Detected M. pneumoniae (PCR) Not Detected Parainfluenza 1 (PCR) Not Detected Parainfluenza 2 (PCR) Not Detected Parainfluenza 3 (PCR) Not Detected Parainfluenza 4 (PCR) Not Detected RSV (PCR) Not Detected Entero/Rhino (PCR) Not Detected Current Inpatient Medications Current Inpatient Medications: Current Inpatient Medications Acetaminophen (Acetaminophen 325 Mg Tab) 650 mg PO Q8 JAMEL Stop: 11/10/23 14:59 Last Admin: 10/16/23 05:59 Dose: 650 mg Aspirin (Aspirin 81 Mg Ectab) 81 mg PO DAILY JAMEL Stop: 10/26/23 08:59 Last Admin: 10/16/23 08:24 Dose: 81 mg Atorvastatin Calcium (Atorvastatin 20 Mg Tab) 20 mg PO HS JAMEL Stop: 10/25/23 20:59 Last Admin: 10/15/23 20:24 Dose: 20 mg Clozapine (Clozapine 100 Mg Tab) 100 mg PO HS JAMEL; Protocol Stop: 10/29/23 20:59 Last Admin: 10/15/23 20:23 Dose: 100 mg Cyanocobalamin (Cyanocobalamin (B-12) 500 Mcg Tablet) 1,000 mcg PO DAILY JAMEL Stop: 10/26/23 08:59 Last Admin: 10/16/23 08:24 Dose: 1,000 mcg Dextrose (Dextrose 50% 50 Ml Syringe) 25 - 50 ml IV UD PRN; Protocol PRN Reason: Hypoglycemia Protocol Stop: 10/25/23 20:44 Docusate Sodium (Docusate Sodium 100 Mg Cap) 100 mg PO BID JAMEL Stop: 10/28/23 10:29 Last Admin: 10/16/23 08:29 Dose: 100 mg Enoxaparin Sodium (Enoxaparin Inj 40 Mg/0.4 Ml Syr) 40 mg SQ QAM JAMEL Stop: 11/01/23 12:29 Last Admin: 10/16/23 08:26 Dose: 40 mg Fluticasone Propionate (Fluticasone Propionate Na Spr 16 Gm Btl) 2 sprays NA DAILY JAMEL Stop: 10/26/23 08:59 Last Admin: 10/16/23 08:25 Dose: 2 sprays Glucagon (Glucagon For Inj 1 Mg Vial) 1 mg SQ UD PRN; Protocol PRN Reason: Hypoglycemia Protocol Stop: 10/25/23 20:44 Glucose (Glucose 10 Tab/Tube) 4 - 8 tab PO UD PRN; Protocol PRN Reason: Hypoglycemia Treatment Stop: 10/25/23 20:44 Glucose (Glucose 40% Gel 15 Gm Tube) 15 - 30 gm PO UD PRN; Protocol PRN Reason: Hypoglycemia Protocol Stop: 10/25/23 20:44 Meropenem 500 mg/ Syringe 10 mls @ 2 mls/min IV Q6H JAMEL; Protocol Stop: 10/18/23 08:14 Last Admin: 10/16/23 09:20 Dose: 2 mls/min Vancomycin HCl 1,000 mg/ (Sodium Chloride) 270 mls @ 200 mls/hr IV Q12H JAMEL Stop: 10/18/23 17:59 Insulin Aspart (Insulin Aspart Per Unit Charge) 0 units SC ACHS [facility] Stop: 10/25/23 20:59 Last Admin: 10/16/23 12:34 Dose: Not Given Levothyroxine Sodium (Levothyroxine Sodium 50 Mcg Tablet) 50 mcg PO DAILYBB [facility] Stop: 10/26/23 06:29 Last Admin: 10/16/23 05:59 Dose: 50 mcg Lidocaine (Lidocaine 5% 1 Patch) 1 patch TD QAM [facility] Stop: 11/03/23 11:14 Last Admin: 10/16/23 08:26 Dose: 1 patch Lisinopril (Lisinopril 5 Mg Tab) 5 mg PO QAM [facility] Stop: 10/30/23 09:29 Last Admin: 10/16/23 08:24 Dose: 5 mg Loratadine (Loratadine 10 Mg Tab) 10 mg PO HS PRN PRN Reason: Allergy Symptoms Stop: 10/25/23 20:44 Magnesium Oxide (Magnesium Oxide 400 Mg Tab) 400 mg PO [facility] Stop: 10/26/23 08:59 Last Admin: 10/16/23 08:24 Dose: 400 mg Miscellaneous (Carbohydrates For Hypoglycemia ) 15 - 30 gm PO UD PRN PRN Reason: Hypoglycemia Protocol Stop: 10/25/23 20:44 Miscellaneous (Remove Lidoderm Patch) 1 each N/A DAILY@2100 [facility] Stop: 11/03/23 20:59 Last Admin: 10/15/23 20:24 Dose: 1 each Miscellaneous Information (Vancomycin Consult Active) 1 each N/A UD PRN PRN Reason: Consult Stop: 11/15/23 07:18 Pantoprazole Sodium (Pantoprazole 40 Mg Tab) 40 mg PO HS [facility] Stop: 10/25/23 20:59 Last Admin: 10/15/23 20:23 Dose: 40 mg Polyethylene Glycol (Polyethylene (Miralax) 17 Gm Pack) 17 gm PO BID [facility] Stop: 10/28/23 10:14 Last Admin: 10/16/23 08:30 Dose: Not Given Potassium Chloride (Potassium Chloride 10 Meq Tabcr) 10 meq PO BID [facility] Stop: 10/26/23 08:59 Last Admin: 10/16/23 08:29 Dose: 10 meq Sumatriptan Succinate (Sumatriptan Succinate 100 Mg Tab) 100 mg PO DAILY PRN PRN Reason: Headache Stop: 10/25/23 20:44 Last Admin: 10/15/23 20:23 Dose: 100 mg
[2023-10-16 15:03] LABS: A calco-baum cmplx NotReported Not Detected (NotDetected); Bact fragilis Not Reported Not Detected (NotDetected); Blood Culture Id Panel PCR Panel Negative (NotDetected); C auris Not Reported Not Detected (NotDetected); Calbicans Not Reported Not Detected (NotDetected); Candida glabrata Not Reported Not Detected (NotDetected); Candida krusei Not Reported Not Detected (NotDetected); Cneoformans/gatti Not Reported Not Detected (NotDetected); Cparapsilosis Not Reported Not Detected (NotDetected); E cloacae compx Not Reported Not Detected (NotDetected); Efaecalis Not Reported Not Detected (NotDetected); Efaecium Not Reported Not Detected (NotDetected); Enterobacterales Not Reported Not Detected (NotDetected); Escherichia coli Not Reported Not Detected (NotDetected); H influenzae Not Reported Not Detected (NotDetected); K aerogenes Not Reported Not Detected (NotDetected); Koxytoca Not Reported Not Detected (NotDetected); Kpneumoniae grp Not Reported Not Detected (NotDetected); Lmonocyt Not Reported Not Detected (NotDetected); N meningitidis Not Reported Not Detected (NotDetected); P aeruginosa Not Reported Not Detected (NotDetected); Proteus spp Not Reported Not Detected (NotDetected); Salmonella spp Not Reported Not Detected (NotDetected); Smarcescens Not Reported Not Detected (NotDetected); Staph lugdunensis Not Reported Not Detected (NotDetected); Staph spp. Not Reported Not Detected (NotDetected); Staphaureus Not Reported Not Detected (NotDetected); Staphepi Not Reported Not Detected (NotDetected); Stenmaltophilia Not Reported Not Detected (NotDetected); Strep agal(GrpB) Not Reported Not Detected (NotDetected); Strep pneum Not Reported Not Detected (NotDetected); Strep pyog (GrpA) Not Reported Not Detected (NotDetected); Strep spp Not Reported Not Detected (NotDetected)
[2023-10-16] MEDS: VANCOMYCIN HCL 1,000 MG in SODIUM CHLORIDE 0.9% 250 ML IV SCH (17:10)
--- NOTE | 2023-10-16 18:48 | Hospitalist Progress Note ---
Date of Service October 16, 2023 Assessment & Plan (1) Weakness: (2) Syncope: Plan: 73 yo female with history of diabetes type 2, hypertension, dyslipidemia, hypothyroidism, brain tumor s/p resection, schizophrenia, migraine, anemia, recurrent UTIs Presenting to the hospital after being discharged from [facility] on the day prior to admission. Patient noted to have hypotension, bradycardia for which antihypertensives were removed. WEAKNESS, SYNCOPE LIKELY SECONDARY TO ORTHOSTATIC HYPOTENSION,POSSIBLE UNDERLYING SICK SINUS SYNDROME Patient recently admitted to [facility] for pneumonia, respiratory failure s/p intubation, UTI, delirium, stercoral colitis from constipation And was observed to have bradycardia, metoprolol reduced in dose. While at [facility], patient noted to have borderline blood pressure and bradycardia. Amlodipine, lisinopril, metoprolol subsequently discontinued She has been off these medications for a few days now. She was discharged from [facility] day prior admission She presented with weakness and syncope in the setting of marginal blood pressure and sinus bradycardia in the 50s She had dry oral mucosa and low sodium indicating dehydration. CVA ruled out Brain MRI - no acute CVA 09/26 - Received contact number from for Dimitris Nicholas ([phone]) pt's nephew. He resides in [place]. He is willing to help with decision making. He was updated on her current and previous hospitalization. He understands cardiology is considering placing a pacemaker and is in agreement with the plan. 09/27 Patient is now s/p PPM placement w/ Dr. Pruitt Has remained stable for the past week PM dressing changed by cardiology service PM function checked- appropriately functioning will need to ff up with Bicycle Inspector on discharge Febrile neutropenia Likely due to Clozapine Patient started to spike fever since 10/13 and 10/14 Chest x-ray personally reviewedno acute finding Pacemaker incision siteno soakage or signs of infection Blood culture07/05 from 10/14/2023 growing gram positive bacilli. Repeat blood cx pending Urinalysis not suggestive of infection Continue empiric antibiotics(Vancomycin and meropenem) CBC with diff daily Discussed with psychiatry; agree with holding clozapine. Infectious disease consulted. NECK PAIN likely muscular Lidoderm Patch, Toradol PRN Resolved HEADACHE Possible migraine attack CT head no signs of acute process Imitrex as needed DIABETES TYPE 2 Insulin sliding scale Hold metformin HYPERTENSION - with marginal blood pressures on admission bp meds resumed HYPOTHYROIDISM TSH 2.2 BRAIN TUMOR S/P RESECTION SCHIZOPHRENIA Holding clozapine for now MIGRAINE CHRONIC ANEMIA RECURRENT UTI CONSTIPATION - continue bowel regimen - closely monitor, as pt has tendency for severe constipation (previous admission) DVT prophylaxis Lovenox for DVT prophylaxis CODE STATUS Full code as per patient Disposition need continued inpatient monitor for clozapine induced febrile neutropenia Time spent evaluating patient, direct bedside care, chart review, placing orders, interpretation of diagnostic studies, discussion with consultants, patient, and family members, as well as other required patient management activities is 50 minutes Please note the above document was generated using voice recognition software. It may contain grammatical, syntax or spelling errors. Any formal questions or concerns about the content, text or information contained within the body of this dictation should be directly addressed to the provider for clarification Admission and Anticipated Discharge Date Admission Date: September 25, 2023 Subjective Comfortable. started to spike fever overnight Denies any complaints at present time Review of Systems Review of Systems: All systems reviewed & are unremarkable except as noted in Subjective Physical Exam Physical Exam: General- oriented x 2, not in distress, speaks in sentences with no effort or accessory muscle use Eyes- anicteric Neck- no JVD Lungs- clear breath sounds bilaterally Heart- normal rate, regular rhythm; no murmurs Pacemaker site: No bleeding or discharge Abdomen- normal bowel sounds, nondistended, soft, nontender Extremities- no pretibial edema, no calf tenderness Neuro- alert, oriented x 2; no new gross focal neurologic deficits Skin- warm & dry Results & Data Results & Data Vital Signs (Past 12 Hours) Vital Signs Temp Pulse Resp BP Pulse Ox O2 Del Method 10/16/23 15:53 36.8 C 63 16 166/70 H 100 Room Air 10/16/23 07:00 36.7 C 62 12 96/59 L 100 Room Air
[2023-10-17 07:41] LABS: Albumin Globulin Ratio 1.7 (0.9-2); Albumin Level 3.3 gm/dl (3.4-5.0); Bilirubin,Total 0.3 mg/dl (0.2-1.0); Calcium 9.1 mg/dl (8.6-10.3); Creatinine Clr Calc Pharmacy 91.9 ml/min; Est GFR (African American) 114.4 ml/min; Est GFR (Non-African American) 98.7 ml/min; Globulin 1.9 gm/dl (2.5-4.0); Potassium 4.2 mmol/L (3.5-5.1); Total Protein 5.2 gm/dl (6.0-8.3)
[2023-10-17 07:42] LABS: Hematocrit (blood only) 29.3 % (37.0-47.0); Hemoglobin 9.7 g/dl (12.0-16.0); Mean Corpuscular Hemoglobin 28.4 pg (25.0-34.0); Mean Corpuscular Hgb Conc 33.1 g/dL (32.0-36.0); Mean Corpuscular Volume 85.9 fL (80.0-100.0); Mean Platelet Volume 10.4 fL (9.4-12.4); Platelet Count 146 K/uL (130-400); RDW Coefficient of Variation 15.1 % (11.5-14.5); RDW Standard Deviation 47.3 fL (36.4-46.3); Red Blood Count 3.41 M/uL (4.20-5.40); White Blood Count 1.98 K/ul (4.8-10.8)
[2023-10-17 08:22] LABS: Basophils # (auto) 0.02 K/uL (0.00-0.20); Immature Granulocytes # (auto) 0.01 K/uL (0.01-0.20); Immature Granulocytes % (auto) 0.5 %; Lymphocytes # (auto) 0.91 K/uL (1.20-3.40); Monocytes # (auto) 0.19 K/uL (0.11-0.59); Monocytes % (auto) 9.6 %; Neutrophils # (auto) 0.85 K/uL (1.40-6.50); Neutrophils % (auto) 42.9 %; RBC Morphology Unremarkable
--- NOTE | 2023-10-17 17:35 | Hospitalist Progress Note ---
Date of Service October 17, 2023 Assessment & Plan (1) Weakness: (2) Syncope: Plan: 73 yo female with history of diabetes type 2, hypertension, dyslipidemia, hypothyroidism, brain tumor s/p resection, schizophrenia, migraine, anemia, recurrent UTIs Presenting to the hospital after being discharged from [facility] on the day prior to admission. Patient noted to have hypotension, bradycardia for which antihypertensives were removed. WEAKNESS, SYNCOPE LIKELY SECONDARY TO ORTHOSTATIC HYPOTENSION,POSSIBLE UNDERLYING SICK SINUS SYNDROME Patient recently admitted to [facility] for pneumonia, respiratory failure s/p intubation, UTI, delirium, stercoral colitis from constipation And was observed to have bradycardia, metoprolol reduced in dose. While at [facility], patient noted to have borderline blood pressure and bradycardia. Amlodipine, lisinopril, metoprolol subsequently discontinued She has been off these medications for a few days now. She was discharged from [facility] day prior admission She presented with weakness and syncope in the setting of marginal blood pressure and sinus bradycardia in the 50s She had dry oral mucosa and low sodium indicating dehydration. CVA ruled out Brain MRI - no acute CVA 09/26 - Received contact number from for Dimitris Nicholas ([phone]) pt's nephew. He resides in [place]. He is willing to help with decision making. He was updated on her current and previous hospitalization. He understands cardiology is considering placing a pacemaker and is in agreement with the plan. 09/27 Patient is now s/p PPM placement w/ Dr. Pruitt Has remained stable for the past week PM dressing changed by cardiology service PM function checked- appropriately functioning will need to ff up with [employer] Operations Manager on discharge Febrile neutropenia Likely due to Clozapine Patient started to spike fever since 10/13 and 10/14 Chest x-ray personally reviewedno acute finding Pacemaker incision siteno soakage or signs of infection or fluctuation or erythema. Incision site looks clean and healthy. Blood culture07/05 from 10/14/2023 growing gram positive bacilli. Repeat blood cx pending Urinalysis not suggestive of infection Continue empiric antibiotics(Vancomycin and meropenem) CBC with diff daily Discussed with psychiatry; agree with holding clozapine. Infectious disease consulted. NECK PAIN likely muscular Lidoderm Patch, Toradol PRN Resolved HEADACHE Possible migraine attack CT head no signs of acute process Imitrex as needed DIABETES TYPE 2 Insulin sliding scale Hold metformin HYPERTENSION - with marginal blood pressures on admission bp meds resumed HYPOTHYROIDISM TSH 2.2 BRAIN TUMOR S/P RESECTION SCHIZOPHRENIA Psychiatry evaluated, discontinue clozapine given low ANC/neutropenia. Continue to monitor for emergence of any psychiatric symptoms. May require alternative antipsychotics. MIGRAINE CHRONIC ANEMIA RECURRENT UTI CONSTIPATION - continue bowel regimen - closely monitor, as pt has tendency for severe constipation (previous admission) DVT prophylaxis Lovenox for DVT prophylaxis CODE STATUS Full code as per patient Disposition need continued inpatient monitor for clozapine induced febrile neutropenia T Admission and Anticipated Discharge Date Admission Date: September 25, 2023 Subjective Comfortable. Temperature is getting better. Denies cough. Reports eating okay and moving bowels okay. Denies any complaints at present time Pacemaker site with no fluctuation/erythema/warmth. Physical Exam Physical Exam: General-alert and awake, not in distress, speaks in sentences with no effort or accessory muscle use Eyes- anicteric Neck- no JVD Lungs- clear breath sounds bilaterally Heart- normal rate, regular rhythm; no murmurs Pacemaker site: No bleeding or discharge Abdomen- normal bowel sounds, nondistended, soft, nontender Extremities- no pretibial edema, no calf tenderness Neuro- alert, oriented x 2; no new gross focal neurologic deficits Skin- warm & dry Results & Data Results & Data Vital Signs (Past 12 Hours) Vital Signs Temp Pulse Resp BP BP Pulse Ox O2 Del Method 10/17/23 14:58 37.2 C 65 15 126/73 100 Room Air 10/17/23 07:16 36.3 C L 66 14 148/74 H 100 Room Air
[2023-10-18 05:53] LABS: Hematocrit (blood only) 27.9 % (37.0-47.0); Hemoglobin 9.1 g/dl (12.0-16.0); Mean Corpuscular Hgb Conc 32.6 g/dL (32.0-36.0); Mean Corpuscular Volume 85.8 fL (80.0-100.0); Mean Platelet Volume 10.1 fL (9.4-12.4); Platelet Count 156 K/uL (130-400); RDW Coefficient of Variation 14.8 % (11.5-14.5); RDW Standard Deviation 46.3 fL (36.4-46.3); Red Blood Count 3.25 M/uL (4.20-5.40); White Blood Count 2.65 K/ul (4.8-10.8)
[2023-10-18] MEDS: VANCOMYCIN LEVEL ONE (06:00)
[2023-10-18 06:03] LABS: Albumin Globulin Ratio 1.7 (0.9-2); Albumin Level 3.3 gm/dl (3.4-5.0); BUN Creatinine Ratio 40.4 (10-20); Bilirubin,Total 0.3 mg/dl (0.2-1.0); Calcium 8.9 mg/dl (8.6-10.3); Est GFR (African American) 112.8 ml/min; Est GFR (Non-African American) 97.3 ml/min; Globulin 1.9 gm/dl (2.5-4.0); Potassium 4.2 mmol/L (3.5-5.1); Total Protein 5.2 gm/dl (6.0-8.3)
[2023-10-18 07:25] LABS: Basophils # (auto) 0.01 K/uL (0.00-0.20); Basophils % (auto) 0.4 %; Eosinophils # (auto) 0.01 K/uL (0.00-0.50); Eosinophils % (auto) 0.4 %; Immature Granulocytes # (auto) 0.01 K/uL (0.01-0.20); Immature Granulocytes % (auto) 0.4 %; Lymphocytes # (auto) 1.58 K/uL (1.20-3.40); Lymphocytes % (auto) 59.6 %; Monocytes # (auto) 0.36 K/uL (0.11-0.59); Monocytes % (auto) 13.6 %; Neutrophils # (auto) 0.68 K/uL (1.40-6.50); Neutrophils % (auto) 25.6 %
--- NOTE | 2023-10-18 16:53 | Hospitalist Progress Note ---
Date of Service October 18, 2023 Assessment & Plan (1) Weakness: (2) Syncope: Plan: 73 yo female with history of diabetes type 2, hypertension, dyslipidemia, hypothyroidism, brain tumor s/p resection, schizophrenia, migraine, anemia, recurrent UTIs Presenting to the hospital after being discharged from [facility] on the day prior to admission. Patient noted to have hypotension, bradycardia for which antihypertensives were removed. WEAKNESS, SYNCOPE LIKELY SECONDARY TO ORTHOSTATIC HYPOTENSION,POSSIBLE UNDERLYING SICK SINUS SYNDROME Patient recently admitted to [facility] for pneumonia, respiratory failure s/p intubation, UTI, delirium, stercoral colitis from constipation And was observed to have bradycardia, metoprolol reduced in dose. While at [facility] rehab, patient noted to have borderline blood pressure and bradycardia. Amlodipine, lisinopril, metoprolol subsequently discontinued She has been off these medications for a few days now. She was discharged from [facility] re[facility] day prior admission She presented with weakness and syncope in the setting of marginal blood pressure and sinus bradycardia in the 50s She had dry oral mucosa and low sodium indicating dehydration. CVA ruled out Brain MRI - no acute CVA 09/26 - Received contact number from for Dimitris Nicholas ([phone]) pt's nephew. He resides in [place]. He is willing to help with decision making. He was updated on her current and previous hospitalization. He understands cardiology is considering placing a pacemaker and is in agreement with the plan. 09/27 Patient is now s/p PPM placement w/ Dr. Pruitt Has remained stable for the past week PM dressing changed by cardiology service PM function checked- appropriately functioning will need to ff up with Insulation Helper on discharge Febrile neutropenia Likely due to Clozapine Patient started to spike fever since 10/13 and 10/14 Chest x-ray personally reviewedno acute finding Pacemaker incision siteno soakage or signs of infection or fluctuation or erythema. Incision site looks clean and healthy. Blood culture07/05 from 10/14/2023 growing gram positive bacilli. Repeat blood cx pending Urinalysis not suggestive of infection Continue empiric antibiotics(Vancomycin and meropenem) CBC with diff daily Psychiatry evaluated; agree with holding clozapine. Infectious disease consulted. Awaiting recommendations. NECK PAIN likely muscular Lidoderm Patch, Toradol PRN Resolved HEADACHE Possible migraine attack CT head no signs of acute process Imitrex as needed DIABETES TYPE 2 Insulin sliding scale Hold metformin HYPERTENSION - with marginal blood pressures on admission bp meds resumed HYPOTHYROIDISM TSH 2.2 BRAIN TUMOR S/P RESECTION SCHIZOPHRENIA Psychiatry evaluated, discontinue clozapine given low ANC/neutropenia. Continue to monitor for emergence of any psychiatric symptoms. May require alternative antipsychotics. MIGRAINE CHRONIC ANEMIA RECURRENT UTI CONSTIPATION - continue bowel regimen - closely monitor, as pt has tendency for severe constipation (previous admission) DVT prophylaxis Lovenox for DVT prophylaxis CODE STATUS Full code as per patient Disposition need continued inpatient monitor for clozapine induced febrile neutropenia T Admission and Anticipated Discharge Date Admission Date: September 25, 2023 Subjective Comfortable. Has been afebrile lately. Denies cough. Reports eating okay and moving bowels okay. Denies any complaints at present time Pacemaker site with no fluctuation/erythema/warmth. Physical Exam Physical Exam: General-alert and awake, not in distress, speaks in sentences with no effort or accessory muscle use Eyes- anicteric Neck- no JVD Lungs- clear breath sounds bilaterally Heart- normal rate, regular rhythm; no murmurs Pacemaker site: No bleeding or discharge Abdomen- normal bowel sounds, nondistended, soft, nontender Extremities- no pretibial edema, no calf tenderness Neuro- alert, oriented x 2; no new gross focal neurologic deficits Skin- warm & dry Results & Data Results & Data Vital Signs (Past 12 Hours) Vital Signs Temp Pulse Resp BP Pulse Ox O2 Del Method 10/18/23 15:24 37.2 C 60 18 103/66 100 Room Air 10/18/23 08:08 36.6 C 58 L 16 127/72 100 Room Air
[2023-10-19 06:54] LABS: Hematocrit (blood only) 27.9 % (37.0-47.0); Hemoglobin 9.3 g/dl (12.0-16.0); Mean Corpuscular Hemoglobin 28.4 pg (25.0-34.0); Mean Corpuscular Hgb Conc 33.3 g/dL (32.0-36.0); Mean Corpuscular Volume 85.1 fL (80.0-100.0); Mean Platelet Volume 10.7 fL (9.4-12.4); Platelet Count 176 K/uL (130-400); RDW Coefficient of Variation 14.8 % (11.5-14.5); RDW Standard Deviation 46.6 fL (36.4-46.3); Red Blood Count 3.28 M/uL (4.20-5.40)
[2023-10-19 07:11] LABS: Albumin Globulin Ratio 1.9 (0.9-2); Albumin Level 3.4 gm/dl (3.4-5.0); BUN Creatinine Ratio 37.3 (10-20); Bilirubin,Total 0.3 mg/dl (0.2-1.0); Creatinine Clr Calc Pharmacy 81.1 ml/min; Est GFR (African American) 109.8 ml/min; Est GFR (Non-African American) 94.7 ml/min; Globulin 1.8 gm/dl (2.5-4.0); Potassium 4.3 mmol/L (3.5-5.1); Total Protein 5.2 gm/dl (6.0-8.3)
[2023-10-19 07:43] LABS: Basophils % (auto) 0.7 %; Lymphocytes # (auto) 1.84 K/uL (1.20-3.40); Lymphocytes % (auto) 61.3 %; Monocytes # (auto) 0.34 K/uL (0.11-0.59); Monocytes % (auto) 11.3 %; Neutrophils % (auto) 26.7 %
[2023-10-19 07:44] LABS: Basophils # (auto) 0.02 K/uL (0.00-0.20)
--- NOTE | 2023-10-19 12:43 | Infectious Disease Consult ---
<Statement entered by Gustavo Valerio, DO - 10/19/23 16:42> ATTESTATION: I saw and evaluated the patient today. I have reviewed the trainee note and ag ree. My additional thoughts/findingsor any changes to the planare listed below. CLINICAL TEAM: Infectious Diseases Team 4 HISTORY OF PRESENT ILLNESS: The patient has had a prolonged hospitalization. On approximately 10/13 the patient was noted to have fever. Blood cultures CXR, and RVP were negative. At the time of our examination today, the patient reported only frontal (forehead) headache. She denied stiff neck, vomitng, photophobia. She denied all other symptoms. There is no mention of concern for CIED site infection in the hospitalist notes. IMPRESSION: 1. Fever, resolved RECOMMENDATIONS: There is no obvious source of infection that I can see. Unless there is a source of infection that is identified on exam (for instance, cellulitis), then I woud consider monitoring the patient off of ABX. I will defer to the primary team re: whether or not they have a high suspicion for a INTERNET SPECIALIST infection. If a INTERNET SPECIALIST infection is suspected, contact ID [email or web address] because the plan would need to change. COMMENT(S): ID is signing off. Contact us for any new issues. If any testing finalizes after ID signs off, forward the results (ID is not automatically notified). REVENUE MANAGEMENT: I spent a total of 60 minutes coordinating, documenting, andproviding care for this patient excluding time spent in performance ofseparately billed services. Date of Service October 19, 2023 Telehealth Information I performed this visit using a real-time telehealth connection between my location and the patients location ([facility]). After connecting through interactive tele-video, patient was identified by name and date of and/or wristband check.Patient (or authorized healthcare brand representative) was informed that this was a telemedicine visit and it was being conducted confidentially over secure lines. My office door was closed and no one else was present in the room with me.Patient (or authorized healthcare brand representative) provided consent to proceed with the visit, expressed an understanding of privacy and security of the telemedicine visit, and gave permission to have a hospital brand representative in the room in order to assist with the visit and to conduct portions of the visit, as needed. I informed the patient (or authorized healthcare brand representative) that I reviewed their record and presented the opportunity for them to ask any questions regarding the visit today. The patient agreed to participate. Assessment & Plan (1) Neutropenic fever: (2) Schizophrenia: Plan Patient with extended hospital course who recently developed neutropenia to less than 500. This was felt to be 2/2 clozapine which has since been held. She d eveloped fevers and was started on meropenem and vanco. She had recent PPM placement but there was no concern for infection. Blood cultures were collected w/ 07/05 bottles growing corynebacterium. This is likely a contaminant. Repeat cultures have had no growth. Her ANC is now above 500 and she is afebrile. -If no clear source of infection seen by in-person physical exam, recommend monitoring off antibiotics at this time History of Present Illness History of Present Illness Pt w/ pmhx of t2dm, htn, schizophrenia on clozapine, recurrent UTI who has had a prolonged hospitalization after an initial presentation with weakness and syncope in the setting of sinus bradycardia. she is s/p PPM placement on 09/27. ID is beingh consulted as her course has been complicated by febrile neutropenia. Her lowest ANC was 0.43 on 10/15. This was felt to be 2/2 clozapine which has been held. ANC today is 0.8. On 10/14 she had a tmax of 39.5. She was started on meropenem and vanco and has been afebrile since. Blood cultures were positive for corynebacterium in 1/4 bottles. No urine culture was done. There were 6-10 wbc and 0 bacteria on UA. Chest x-ray was unremarkable. At the time of our evaluation patient appeared well and only complained of forehead pain. Allergies Allergy/AdvReac Type Severity Reaction Status Date / Time Penicillins Allergy Intermediate Hives Verified 09/25/23 18:19 pollen extracts Allergy Intermediate seasonal Verified 09/25/23 18:19 allergy Cephalosporins AdvReac Intermediate Hallucinations/GI Verified 09/25/23 18:19 UPSET/ CONFUSION cyclobenzaprine AdvReac Intermediate neuro Verified 09/25/23 18:19 [From Flexeril] complications rizatriptan [From Maxalt] AdvReac Intermediate VERTIGO Verified 09/25/23 18:19 Home Medications Medication Instructions Recorded Confirmed Type levothyroxine 50 mcg tablet 50 mcg PO DAILYBB 04/14/18 09/25/23 History (Synthroid) loratadine 10 mg tablet (Claritin) 10 mg PO HS PRN Allergy Symptoms 03/25/19 09/25/23 History magnesium oxide 400 mg PO QAM 03/25/19 09/25/23 History atorvastatin 20 mg tablet 20 mg PO HS 11/22/19 09/25/23 History sumatriptan succinate 100 mg tablet 100 mg PO DAILY PRN Headache 11/22/19 09/25/23 History metformin 500 mg tablet 500 mg PO QAM 02/24/21 09/25/23 History riboflavin (vitamin B2) 400 mg 400 mg PO QAM 02/24/21 09/25/23 History tablet fluticasone propionate 50 2 spray intranasal DAILY 07/13/21 09/25/23 History mcg/actuation nasal spray,suspension (Flonase Allergy Relief) aspirin 81 mg chewable tablet 81 mg PO DAILY 05/12/22 09/25/23 History (Aspirin Childrens) cholecalciferol (vitamin D3) 1,250 1,250 mcg PO WK 12/16/22 09/25/23 History mcg (50,000 unit) capsule omeprazole 40 mg capsule,delayed 40 mg PO HS 12/16/22 09/25/23 History release lisinopril 20 mg tablet 20 mg PO QAM 01/15/23 09/25/23 History acetaminophen 500 mg/15 mL oral 100 mg PO Q4H PRN PAIN/FEVER 08/06/23 09/25/23 History liquid amlodipine 5 mg tablet 5 mg PO DAILY 08/06/23 09/25/23 History cyanocobalamin (vitamin B-12) 1,000 mcg PO DAILY 08/06/23 09/25/23 History 1,000 mcg tablet (Vitamin B-12) diclofenac sodium 1 % topical gel 2 g topical TID PRN Pain 08/06/23 09/25/23 History iron,carbonyl 65 mg-vitamin C 125 1 tab PO DAILY 08/06/23 09/25/23 History mg tablet,delayed release (Vitron-C) methenamine hippurate 1 gram tablet 1 g PO AMHS 08/06/23 09/25/23 History clozapine 100 mg tablet 100 mg PO HS 09/25/23 09/25/23 History docusate sodium 100 mg capsule 100 mg PO BID 09/25/23 09/25/23 History duloxetine 60 mg capsule,delayed 60 mg PO DAILY 09/25/23 09/25/23 History release sprinkle gabapentin 100 mg capsule See Rx Instructions .Route .COMPLEX 09/25/23 09/25/23 History magnesium hydroxide 400 mg/5 mL 400 mg PO DAILY PRN Constipation 09/25/23 09/25/23 History oral suspension metoprolol succinate 50 mg 50 mg PO DAILY 09/25/23 09/25/23 History tablet,extended release 24 hr polyethylene glycol 3350 17 17 g PO DAILY PRN Constipation 09/25/23 09/25/23 History gram/dose oral powder (Miralax) psyllium husk 3.4 gram/5.4 gram 1 tbsp PO TID 09/25/23 09/25/23 History oral powder (Metamucil) Patient History Medical History Schizophrenia Volume overload Weak cough Severe sepsis Aspiration pneumonia Weakness Constipation Bacteremia Acute UTI (urinary tract infection) Generalized weakness AMS (altered mental status) Unresponsive Obtunded COVID-19 Hyponatremia Nausea Dehydration Dizziness Neuropathy Headache Vertigo GERD (gastroesophageal reflux disease) Well controlled with medication Hypothyroidism Anxiety Migraine Hypertension Neuropathy DM2 (diabetes mellitus, type 2) HLD (hyperlipidemia) Somatization disorder Surgical History S/P foot surgery, right X2 S/P foot surgery, left X2 History of colonoscopy History of tooth extraction WISDOM TEETH History of tonsillectomy H/O bilateral cataract extraction History of craniotomy 1969, [place] D/T HEADACHE---FOLLOWS W DR. MICHAEL History of cataract surgery H/O cystoscopy H/O foot surgery H/O brain surgery "abt 1969 R parietal exploration for benign lesion" Family History Grandmother Family history of diabetes mellitus PATERNAL Family/Other Family history of diabetes mellitus UNCLE Father Parkinson disease Mother CHF (congestive heart failure) Social History Smoking Status: Never smoker Second Hand Exposure: Yes (FATHER SMOKED); Do You Dip or Chew Tobacco: No; Hx Alcohol Use: No Hx Substance Use: No Preferred Language: Tajik Communication Ability: Impaired Investor Relations Manager Required: No Beliefs That Will Affect Care: Alevism Alevism Beliefs: pentecostalism marital status: Single Current Living Situation: Alone Current Living Situation Comment: Has an agency that comes 4-8 m-f as well as a friend 9-1 m-f How many Children do You have: 0 Feels Safe at Home: Yes Assistive Devices: Walker Review of Systems Full ROS was performed and is negative unless mentioned in the HPI. Physical Exam Exam limited by telemed Able to move her neck and touch her chin to her chest Appeared generally well Results & Data Vital Signs (Past 12 Hours) Vital Signs Temp Pulse Resp BP Pulse Ox O2 Del Method 10/19/23 07:16 36.5 C 64 16 159/81 H 100 Room Air Laboratory Results Laboratory Results - last 72 hr 10/14/23 10/16/23 10/16/23 20:44 17:03 21:11 WBC RBC Hgb Hct MCV MCH MCHC RDW Std Deviation RDW Coeff of Cyn Plt Count MPV Immature Gran % (Auto) Neut % (Auto) Lymph % (Auto) [place] % (Auto) Eos % (Auto) Baso % (Auto) Neut # (Auto) Lymph # (Auto) [place] # (Auto) Eos # (Auto) Baso # (Auto) Immature Gran # (Auto) RBC Morphology Sodium Potassium Chloride Carbon Dioxide Anion Gap BUN Creatinine Est Cr Clr Drug Dosing Est GFR ( Amer) Est GFR (Non-Af Amer) BUN/Creatinine Ratio Glucose POC Glucose 120 H 131 H Calcium Total Bilirubin AST ALT Alkaline Phosphatase Total Protein Albumin Globulin Albumin/Globulin Ratio Random Vancomycin Bld Cult ID Panel PCR PCR Panel Negative 10/17/23 10/17/23 10/17/23 06:16 07:56 11:42 WBC 1.98 L RBC 3.41 L Hgb 9.7 L Hct 29.3 L MCV 85.9 MCH 28.4 MCHC 33.1 RDW Std Deviation 47.3 H RDW Coeff of Cyn 15.1 H Plt Count 146 MPV 10.4 Immature Gran % (Auto) 0.5 Neut % (Auto) 42.9 Lymph % (Auto) 46.0 [place] % (Auto) 9.6 Eos % (Auto) 0.0 Baso % (Auto) 1.0 Neut # (Auto) 0.85 L* Lymph # (Auto) 0.91 L [place] # (Auto) 0.19 Eos # (Auto) 0.00 Baso # (Auto) 0.02 Immature Gran # (Auto) 0.01 RBC Morphology Unremarkable Sodium 137 Potassium 4.2 Chloride 106 Carbon Dioxide 26 Anion Gap 5 BUN 18 Creatinine 0.45 L Est Cr Clr Drug Dosing 91.9 Est GFR ( Amer) 114.4 Est GFR (Non-Af Amer) 98.7 BUN/Creatinine Ratio 40.0 H Glucose 97 POC Glucose 108 H 121 H Calcium 9.1 Total Bilirubin 0.3 AST 15 ALT 15 Alkaline Phosphatase 55 Total Protein 5.2 L Albumin 3.3 L Globulin 1.9 L Albumin/Globulin Ratio 1.7 Random Vancomycin Bld Cult ID Panel PCR 10/17/23 10/17/23 10/18/23 16:45 20:30 05:18 WBC 2.65 L RBC 3.25 L Hgb 9.1 L Hct 27.9 L MCV 85.8 MCH 28.0 MCHC 32.6 RDW Std Deviation 46.3 RDW Coeff of Cyn 14.8 H Plt Count 156 MPV 10.1 Immature Gran % (Auto) 0.4 Neut % (Auto) 25.6 Lymph % (Auto) 59.6 [place] % (Auto) 13.6 Eos % (Auto) 0.4 Baso % (Auto) 0.4 Neut # (Auto) 0.68 L* Lymph # (Auto) 1.58 [place] # (Auto) 0.36 Eos # (Auto) 0.01 Baso # (Auto) 0.01 Immature Gran # (Auto) 0.01 RBC Morphology Sodium 134 L Potassium 4.2 Chloride 104 Carbon Dioxide 27 Anion Gap 3 BUN 19 Creatinine 0.47 L Est Cr Clr Drug Dosing 88.0 Est GFR ( Amer) 112.8 Est GFR (Non-Af Amer) 97.3 BUN/Creatinine Ratio 40.4 H Glucose 99 POC Glucose 121 H 99 Calcium 8.9 Total Bilirubin 0.3 AST 18 ALT 20 Alkaline Phosphatase 59 Total Protein 5.2 L Albumin 3.3 L Globulin 1.9 L Albumin/Globulin Ratio 1.7 Random Vancomycin 13.9 Bld Cult ID Panel PCR 10/18/23 10/18/23 10/18/23 08:07 11:39 17:29 WBC RBC Hgb Hct MCV MCH MCHC RDW Std Deviation RDW Coeff of Cyn Plt Count MPV Immature Gran % (Auto) Neut % (Auto) Lymph % (Auto) [place] % (Auto) Eos % (Auto) Baso % (Auto) Neut # (Auto) Lymph # (Auto) [place] # (Auto) Eos # (Auto) Baso # (Auto) Immature Gran # (Auto) RBC Morphology Sodium Potassium Chloride Carbon Dioxide Anion Gap BUN Creatinine Est Cr Clr Drug Dosing Est GFR ( Amer) Est GFR (Non-Af Amer) BUN/Creatinine Ratio Glucose POC Glucose 109 H 135 H 119 H Calcium Total Bilirubin AST ALT Alkaline Phosphatase Total Protein Albumin Globulin Albumin/Globulin Ratio Random Vancomycin Bld Cult ID Panel PCR 10/18/23 10/19/23 10/19/23 20:15 05:29 07:23 WBC 3.00 L RBC 3.28 L Hgb 9.3 L Hct 27.9 L MCV 85.1 MCH 28.4 MCHC 33.3 RDW Std Deviation 46.6 H RDW Coeff of Cyn 14.8 H Plt Count 176 MPV 10.7 Immature Gran % (Auto) 0.0 Neut % (Auto) 26.7 Lymph % (Auto) 61.3 [place] % (Auto) 11.3 Eos % (Auto) 0.0 Baso % (Auto) 0.7 Neut # (Auto) 0.80 L* Lymph # (Auto) 1.84 [place] # (Auto) 0.34 Eos # (Auto) 0.00 Baso # (Auto) 0.02 Immature Gran # (Auto) 0.00 L RBC Morphology Sodium 136 Potassium 4.3 Chloride 104 Carbon Dioxide 26 Anion Gap 6 BUN 19 Creatinine 0.51 L Est Cr Clr Drug Dosing 81.1 Est GFR ( Amer) 109.8 Est GFR (Non-Af Amer) 94.7 BUN/Creatinine Ratio 37.3 H Glucose 97 POC Glucose 117 H 105 H Calcium 9.0 Total Bilirubin 0.3 AST 15 ALT 18 Alkaline Phosphatase 58 Total Protein 5.2 L Albumin 3.4 Globulin 1.8 L Albumin/Globulin Ratio 1.9 Random Vancomycin Bld Cult ID Panel PCR 10/19/23 11:48 WBC RBC Hgb Hct MCV MCH MCHC RDW Std Deviation RDW Coeff of Cyn Plt Count MPV Immature Gran % (Auto) Neut % (Auto) Lymph % (Auto) [place] % (Auto) Eos % (Auto) Baso % (Auto) Neut # (Auto) Lymph # (Auto) [place] # (Auto) Eos # (Auto) Baso # (Auto) Immature Gran # (Auto) RBC Morphology Sodium Potassium Chloride Carbon Dioxide Anion Gap BUN Creatinine Est Cr Clr Drug Dosing Est GFR ( Amer) Est GFR (Non-Af Amer) BUN/Creatinine Ratio Glucose POC Glucose 144 H Calcium Total Bilirubin AST ALT Alkaline Phosphatase Total Protein Albumin Globulin Albumin/Globulin Ratio Random Vancomycin Bld Cult ID Panel PCR Diagnostic Findings Chest X-Ray 09/25/23 14:36 SINGLE VIEW CHEST CLINICAL HISTORY: Atypical chest pain FINDINGS: An AP, portable, upright chest radiograph is compared to study dated 08/29/2023. The heart is mildly enlarged noting atherosclerotic calcification of the thoracic aorta. The pulmonary vasculature is noncongested. Chronic interstitial thickening is similar to previous. There is mild bibasilar scarring/atelectasis. The lungs and pleural spaces are otherwise clear. No pneumothorax is seen. The skeletal structures are osteopenic. The bony thorax is grossly intact. IMPRESSION: Cardiomegaly with no active disease in the chest. ACT 112: Negative or not required by law. Electronically signed by: Patel Qiu M.D. 09/25/2023 3:[address] 09/25/23 15:03 CT OF THE HEAD WITHOUT CONTRAST CLINICAL HISTORY: Altered mental status. COMPARISON STUDY: Head CT August 06, 2023. CT DOSE: 625.8 mGy.cm TECHNIQUE: Helical axial images of the head were obtained without IV contrast. Automated exposure control was utilized for the study. A dose lowering technique was utilized adhering to the principles of ALARA. FINDINGS: No acute intracranial hemorrhage, midline shift or mass effect is present. The ventricular system is unremarkable. The basal cisterns are patent. No extra-axial collections are present. There are no findings to suggest acute dural sinus thrombosis or acute territorial infarct. No calvarial fracture is identified. Right posterior calvarial defect is chronic. IMPRESSION: No acute intracranial findings. No change in appearance of the brain. ACT 112: Negative or not required by law. Electronically signed by: Lukas Law M.D. 09/25/2023 3:52 PM KUB X-Ray 09/25/23 15:03 XR KUB/Abdomen 1 view CLINICAL HISTORY: ams TECHNIQUE: 1 view of the abdomen was obtained. Comparison: Comparison is made to abdomen radiograph 08/26/2023 FINDINGS: Lung bases are unremarkable. Degenerative changes are seen in the visualized skeleton. Left pelvic calcification is stable. The bowel gas pattern is nonobstructive. A moderate amount of stool is noted within the large bowel. IMPRESSION: Nonobstructive bowel gas pattern. ACT 112: Negative or not required by law. Electronically signed by: Trevin Yeboah M.D. 09/25/2023 3:23 PM Brain MRI 09/25/23 18:02 Exam(s): MRI HEAD Without Contrast EXAM: MR Head Without Intravenous Contrast CLINICAL HISTORY: Reason for exam: syncope. TECHNIQUE: Magnetic resonance images of the head/brain without intravenous contrast in multiple planes. COMPARISON: CT head from March 08, 2023 FINDINGS: Brain: Mild diffuse cerebral atrophy and periventricular white matter T2 hyperintensity consistent with chronic small vessel disease and/or senescent changes, unchanged. No areas of diffusion restriction are seen to indicate acute stroke. No hemorrhage. Ventricles: Unremarkable. No ventriculomegaly. Bones/joints: Unremarkable. No acute fracture. Sinuses: Unremarkable as visualized. No acute sinusitis. Mastoid air cells: Unremarkable as visualized. No mastoid effusion. Orbits: Unremarkable as visualized. IMPRESSION: Mild diffuse cerebral atrophy and periventricular white matter T2 hyperintensity consistent with chronic small vessel disease and/or senescent changes, unchanged. No areas of diffusion restriction are seen to indicate acute stroke. Electronically signed by: Fantasma Young MD 09/25/23 20:38 PM Chest X-Ray 09/28/23 10:00 XR chest 1V portable HISTORY: Status post pacemaker placement. COMPARISON: Chest 09/25/2023. FINDINGS: There is a left-sided dual-chamber pacemaker. The leads appear intact. No pneumothorax. No pleural effusions. The heart remains mildly enlarged. No evidence for pulmonary edema. No acute fractures. Calcifications within the aortic knob. IMPRESSION: Interval placement of a left-sided dual-chamber pacemaker. No pneumothorax. ACT 112: Negative or not required by law. Electronically signed by: Doe Harper M.D. 09/28/2023 10:[address] 10/03/23 10:35 CT head/brain wo con CLINICAL HISTORY: headache, dizziness Technique: Contiguous axial CT images of the head were acquired from the base of the skull to the vertex without intravenous contrast administration. Images were viewed in brain, subdural and bone windows. Automated dose lowering techniques and/or adjustment according to patient size were utilized for this exam. Comparison: Comparison is made to CT head 09/25/2023 Findings: The ventricles, basal cisterns, and cerebral sulci are normal. There is no acute intracranial hemorrhage or evidence of acute territorial infarction. Neither mass effect, shift of the midline structures, nor abnormal extra-axial fluid collections are shown. Imaged portions of the paranasal sinuses and mastoid air cells are clear. The orbits appear normal. There are no acute fractures of the calvaria or scalp swelling. Chronic defect again seen in the right calvarium. Impression: No acute intracranial hemorrhage, no evidence of acute territorial infarction or other acute intracranial disease process. ACT 112: Negative or not required by law. Electronically signed by: Trevin Yeboah M.D. 10/03/2023 11:27 AM Chest X-Ray 10/14/23 20:17 XR chest 1V portable HISTORY: chest pain. new pacer placed COMPARISON: Chest 09/28/2023. FINDINGS: There is left-sided dual-chamber pacemaker. The leads appear intact. No pneumothorax. No pleural effusions. The lungs are clear. The heart is borderline enlarged. This remains unchanged. No acute fractures. IMPRESSION: No significant change compared to the prior study. No acute process. ACT 112: Negative or not required by law. Electronically signed by: Doe Harper M.D. 10/15/2023 7:01 AM Medications Administered Home Medications Medication Instructions Recorded Confirmed Last Taken levothyroxine 50 mcg tablet 50 mcg PO DAILYBB 04/14/18 09/25/23 07/22/22 (Synthroid) loratadine 10 mg tablet (Claritin) 10 mg PO HS PRN Allergy Symptoms 03/25/19 09/25/23 07/21/22 magnesium oxide 400 mg PO QAM 03/25/19 09/25/23 07/22/22 atorvastatin 20 mg tablet 20 mg PO HS 11/22/19 09/25/23 07/21/22 sumatriptan succinate 100 mg tablet 100 mg PO DAILY PRN Headache 11/22/19 09/25/23 Unknown metformin 500 mg tablet 500 mg PO QAM 02/24/21 09/25/23 07/22/22 riboflavin (vitamin B2) 400 mg 400 mg PO QAM 0809/25/23 07/22/22 tablet fluticasone propionate 50 2 spray intranasal DAILY 07/13/21 09/25/23 07/22/22 mcg/actuation nasal spray,suspension (Flonase Allergy Relief) aspirin 81 mg chewable tablet 81 mg PO DAILY 05/12/22 09/25/23 07/22/22 (Aspirin Childrens) cholecalciferol (vitamin D3) 1,250 1,250 mcg PO WK 12/16/22 09/25/23 Unknown mcg (50,000 unit) capsule omeprazole 40 mg capsule,delayed 40 mg PO HS 12/16/22 09/25/23 Unknown release lisinopril 20 mg tablet 20 mg PO QAM 01/15/23 09/25/23 Unknown acetaminophen 500 mg/15 mL oral 100 mg PO Q4H PRN PAIN/FEVER 08/06/23 09/25/23 Unknown liquid amlodipine 5 mg tablet 5 mg PO DAILY 08/06/23 09/25/23 Unknown cyanocobalamin (vitamin B-12) 1,000 mcg PO DAILY 08/06/23 09/25/23 Unknown 1,000 mcg tablet (Vitamin B-12) diclofenac sodium 1 % topical gel 2 g topical TID PRN Pain 08/06/23 09/25/23 Unknown iron,carbonyl 65 mg-vitamin C 125 1 tab PO DAILY 08/06/23 09/25/23 Unknown mg tablet,delayed release (Vitron-C) methenamine hippurate 1 gram tablet 1 g PO AMHS 08/06/23 09/25/23 Unknown clozapine 100 mg tablet 100 mg PO HS 09/25/23 09/25/23 Unknown docusate sodium 100 mg capsule 100 mg PO BID 09/25/23 09/25/23 Unknown duloxetine 60 mg capsule,delayed 60 mg PO DAILY 09/25/23 09/25/23 Unknown release sprinkle gabapentin 100 mg capsule See Rx Instructions .Route .COMPLEX 09/25/23 09/25/23 Unknown magnesium hydroxide 400 mg/5 mL 400 mg PO DAILY PRN Constipation 09/25/23 09/25/23 Unknown oral suspension metoprolol succinate 50 mg 50 mg PO DAILY 09/25/23 09/25/23 Unknown tablet,extended release 24 hr polyethylene glycol 3350 17 17 g PO DAILY PRN Constipation 09/25/23 09/25/23 Unknown gram/dose oral powder (Miralax) psyllium husk 3.4 gram/5.4 gram 1 tbsp PO TID 09/25/23 09/25/23 Unknown oral powder (Metamucil) Active Medications Generic Name Dose Route Start Last Admin Trade Name Freq PRN Reason Stop Dose Admin Acetaminophen 650 mg 10/11/23 15:00 10/19/23 05:19 Acetaminophen 325 Mg Tab PO 11/10/23 14:59 650 mg Q8 JAMEL Administration Aspirin 81 mg 09/26/23 09:00 10/19/23 08:58 Aspirin 81 Mg Ectab PO 10/26/23 08:59 81 mg DAILY JAMEL Administration Atorvastatin Calcium 20 mg 09/25/23 21:00 10/18/23 20:14 Atorvastatin 20 Mg Tab PO 10/25/23 20:59 20 mg HS JAMEL Administration Clozapine 100 mg 09/29/23 21:00 10/15/23 20:23 Clozapine 100 Mg Tab PO 10/29/23 20:59 100 mg HS JAMEL Administration Protocol Cyanocobalamin 1,000 mcg 09/26/23 09:00 10/19/23 08:59 Cyanocobalamin (B-12) 500 Mcg Tablet PO 10/26/23 08:59 1,000 mcg DAILY JAMEL Administration Docusate Sodium 100 mg 09/28/23 10:30 10/19/23 08:59 Docusate Sodium 100 Mg Cap PO 10/28/23 10:29 100 mg BID JAMEL Administration Enoxaparin Sodium 40 mg 10/02/23 12:30 10/19/23 08:59 Enoxaparin Inj 40 Mg/0.4 Ml Syr SQ 11/01/23 12:29 40 mg QAM JAMEL Administration Fluticasone Propionate 2 sprays 09/26/23 09:00 10/19/23 08:52 Fluticasone Propionate Na Spr 16 Gm Btl NA 10/26/23 08:59 2 sprays DAILY JAMEL Administration Meropenem 500 mg/ Syringe 10 mls @ 2 mls/min 10/16/23 08:15 10/19/23 08:51 IV 10/30/23 08:14 2 mls/min Q6H JAMEL Administration Protocol Vancomycin HCl 1,000 mg/ 270 mls @ 200 mls/hr 10/16/23 18:00 10/19/23 07:15 Sodium Chloride IV 10/19/23 17:59 Infused Q12H JAMEL Infusion Protocol Insulin Aspart 0 units 09/25/23 21:00 10/19/23 13:20 Insulin Aspart Per Unit Charge SC 10/25/23 20:59 2 units ACHS JAMEL Administration Levothyroxine Sodium 50 mcg 09/26/23 06:30 10/19/23 05:19 Levothyroxine Sodium 50 Mcg Tablet PO 10/26/23 06:29 50 mcg DAILYBB JAMEL Administration Lidocaine 1 patch 10/04/23 11:15 10/19/23 09:01 Lidocaine 5% 1 Patch TD 11/03/23 11:14 1 patch QAM JAMEL Administration Lisinopril 5 mg 09/30/23 09:30 10/19/23 09:00 Lisinopril 5 Mg Tab PO 10/30/23 09:29 5 mg QAM JAMEL Administration Magnesium Oxide 400 mg 09/26/23 09:00 10/19/23 09:00 Magnesium Oxide 400 Mg Tab PO 10/26/23 08:59 400 mg QAM JAMEL Administration Miscellaneous 1 each 10/04/23 21:00 10/18/23 20:19 Remove Lidoderm Patch N/A 11/03/23 20:59 1 each DAILY@2100 JAMEL Administration Pantoprazole Sodium 40 mg 09/25/23 21:00 10/18/23 20:13 Pantoprazole 40 Mg Tab PO 10/25/23 20:59 40 mg HS JAMEL Administration Polyethylene Glycol 17 gm 09/28/23 10:15 10/19/23 09:01 Polyethylene (Miralax) 17 Gm Pack PO 10/28/23 10:14 17 gm BID JAMEL Administration Potassium Chloride 10 meq 09/26/23 09:00 10/19/23 09:04 Potassium Chloride 10 Meq Tabcr PO 10/26/23 08:59 10 meq BID JAMEL Administration Sumatriptan Succinate 100 mg 09/25/23 20:45 10/18/23 20:09 Sumatriptan Succinate 100 Mg Tab PO 10/25/23 20:44 100 mg DAILY PRN Administration Headache
--- NOTE | 2023-10-19 16:30 | Psychiatric Progress Note ---
Date of Service October 19, 2023 Impression / Recommendations Impression Has been psychiatrically stable but given new ANC changes clozapine must be discontinued. Unfortunately this can sometimes lead to rebound psychosis so we'll monitor for this and can add on an alternative antipsychotic if this occurs. 10/19/2023: No evidence for any current psychosis, remains in good behavioral control. Clozapine has been discontinued due to low ANC which persists. Overall, I spent a total of 25 minutes with this case including review of chart records, review of labwork, direct evaluation of the patient at bedside, counseling the patient, discussion of the patient with the hospitalist provider, discussion with the psychiatric liason during clinical rounds and documentation in the electronic health record. (1) Schizophrenia: (2) Major neurocognitive disorder: Plan -Discontinue clozapine given low ANC/neutropenia; this should not be restarted -If she develops psychosis in the future would recommend use of olanzapine 2.5mg po HS (and then can increase to 5mg po HS if needed) -Will continue to monitor for emergence of any psychiatric symptoms, may require alternative antipsychotic Interval History Identifying Information as per Dr. Elmore on initial consultation: June is a 72-year-old female with a past psychiatric history of schizophrenia and has been on Clozaril for decades who admitted with presumed sepsis. She was medically stabilized but was catatonic and eventually, once clozapine was titrated up to a reasonable dose, improved. She also had a urinary tract infection at that time. Eventually she was able to transition to a rehab and discharged to her home and then was brought back to our hospital within 24 hours. She had had some dizziness and bradycardia. The medical staff are concerned that the clozapine could be possibly contributing to this. I was asked to meet with her to see if there is any other recommendations we can make. I was also asked whether or not she can consent for a pacemaker. Chief Complaint "I'm fine". Subjective Subjective Patient was seen & assessed and interval progress reviewed. Sitting in a chair near the window. Pleasant. Reports some back pain and a headache. Denies any other concerns. Seems aware of being in the hospital, comments on activity outside the building. Appropriately answers questions about watching TV. Procedures Performed Operation Date: 09/28/23 07:30 Actual Procedures p Pacer with A/V Leads (Dual) - Jeanette Pruitt, DO s Bundle of his Recording - Jeanette Pruitt, DO Physical Exam Vital Signs (Past 24 Hours) Last Vital Signs Temp 37.0 C 10/19/23 15:31 Pulse 59 L 10/19/23 15:31 Resp 16 10/19/23 15:31 BP 97/58 L 10/19/23 15:31 Pulse Ox 100 10/19/23 15:31 O2 Del Method Room Air 10/19/23 15:31 Results & Data ([facility]) Laboratory Results Laboratory Results - last 24 hr 10/18/23 10/18/23 10/19/23 17:29 20:15 05:29 WBC 3.00 L RBC 3.28 L Hgb 9.3 L Hct 27.9 L MCV 85.1 MCH 28.4 MCHC 33.3 RDW Std Deviation 46.6 H RDW Coeff of Cyn 14.8 H Plt Count 176 MPV 10.7 Immature Gran % (Auto) 0.0 Neut % (Auto) 26.7 Lymph % (Auto) 61.3 Hand % (Auto) 11.3 Eos % (Auto) 0.0 Baso % (Auto) 0.7 Neut # (Auto) 0.80 L* Lymph # (Auto) 1.84 Hand # (Auto) 0.34 Eos # (Auto) 0.00 Baso # (Auto) 0.02 Immature Gran # (Auto) 0.00 L Sodium 136 Potassium 4.3 Chloride 104 Carbon Dioxide 26 Anion Gap 6 BUN 19 Creatinine 0.51 L Est Cr Clr Drug Dosing 81.1 Est GFR ( Amer) 109.8 Est GFR (Non-Af Amer) 94.7 BUN/Creatinine Ratio 37.3 H Glucose 97 POC Glucose 119 H 117 H Calcium 9.0 Total Bilirubin 0.3 AST 15 ALT 18 Alkaline Phosphatase 58 Total Protein 5.2 L Albumin 3.4 Globulin 1.8 L Albumin/Globulin Ratio 1.9 10/19/23 10/19/23 07:23 11:48 WBC RBC Hgb Hct MCV MCH MCHC RDW Std Deviation RDW Coeff of Cyn Plt Count MPV Immature Gran % (Auto) Neut % (Auto) Lymph % (Auto) Hand % (Auto) Eos % (Auto) Baso % (Auto) Neut # (Auto) Lymph # (Auto) Hand # (Auto) Eos # (Auto) Baso # (Auto) Immature Gran # (Auto) Sodium Potassium Chloride Carbon Dioxide Anion Gap BUN Creatinine Est Cr Clr Drug Dosing Est GFR ( Amer) Est GFR (Non-Af Amer) BUN/Creatinine Ratio Glucose POC Glucose 105 H 144 H Calcium Total Bilirubin AST ALT Alkaline Phosphatase Total Protein Albumin Globulin Albumin/Globulin Ratio Current Inpatient Medications Current Inpatient Medications: Current Inpatient Medications Acetaminophen (Acetaminophen 325 Mg Tab) 650 mg PO Q8 JAMEL Stop: 11/10/23 14:59 Last Admin: 10/19/23 14:41 Dose: 650 mg Aspirin (Aspirin 81 Mg Ectab) 81 mg PO DAILY JAMEL Stop: 10/26/23 08:59 Last Admin: 10/19/23 08:58 Dose: 81 mg Atorvastatin Calcium (Atorvastatin 20 Mg Tab) 20 mg PO HS JAMEL Stop: 10/25/23 20:59 Last Admin: 10/18/23 20:14 Dose: 20 mg Clozapine (Clozapine 100 Mg Tab) 100 mg PO HS JAMEL; Protocol Stop: 10/29/23 20:59 Last Admin: 10/15/23 20:23 Dose: 100 mg Cyanocobalamin (Cyanocobalamin (B-12) 500 Mcg Tablet) 1,000 mcg PO DAILY JAMEL Stop: 10/26/23 08:59 Last Admin: 10/19/23 08:59 Dose: 1,000 mcg Dextrose (Dextrose 50% 50 Ml Syringe) 25 - 50 ml IV UD PRN; Protocol PRN Reason: Hypoglycemia Protocol Stop: 10/25/23 20:44 Docusate Sodium (Docusate Sodium 100 Mg Cap) 100 mg PO BID JAMEL Stop: 10/28/23 10:29 Last Admin: 10/19/23 08:59 Dose: 100 mg Enoxaparin Sodium (Enoxaparin Inj 40 Mg/0.4 Ml Syr) 40 mg SQ QAM JAMEL Stop: 11/01/23 12:29 Last Admin: 10/19/23 08:59 Dose: 40 mg Fluticasone Propionate (Fluticasone Propionate Na Spr 16 Gm Btl) 2 sprays NA DAILY JAMEL Stop: 10/26/23 08:59 Last Admin: 10/19/23 08:52 Dose: 2 sprays Glucagon (Glucagon For Inj 1 Mg Vial) 1 mg SQ UD PRN; Protocol PRN Reason: Hypoglycemia Protocol Stop: 10/25/23 20:44 Glucose (Glucose 10 Tab/Tube) 4 - 8 tab PO UD PRN; Protocol PRN Reason: Hypoglycemia Treatment Stop: 10/25/23 20:44 Glucose (Glucose 40% Gel 15 Gm Tube) 15 - 30 gm PO UD PRN; Protocol PRN Reason: Hypoglycemia Protocol Stop: 10/25/23 20:44 Meropenem 500 mg/ Syringe 10 mls @ 2 mls/min IV Q6H [facility]; Protocol Stop: 10/30/23 08:14 Last Admin: 10/19/23 14:41 Dose: 2 mls/min Vancomycin HCl 1,000 mg/ (Sodium Chloride) 270 mls @ 200 mls/hr IV Q12H [facility]; Protocol Stop: 10/19/23 17:59 Last Infusion: 10/19/23 07:15 Dose: Infused Insulin Aspart (Insulin Aspart Per Unit Charge) 0 units SC [facility] Stop: 10/25/23 20:59 Last Admin: 10/19/23 13:20 Dose: 2 units Levothyroxine Sodium (Levothyroxine Sodium 50 Mcg Tablet) 50 mcg PO DAILYBB [facility] Stop: 10/26/23 06:29 Last Admin: 10/19/23 05:19 Dose: 50 mcg Lidocaine (Lidocaine 5% 1 Patch) 1 patch TD [facility] Stop: 11/03/23 11:14 Last Admin: 10/19/23 09:01 Dose: 1 patch Lisinopril (Lisinopril 5 Mg Tab) 5 mg PO [facility] Stop: 10/30/23 09:29 Last Admin: 10/19/23 09:00 Dose: 5 mg Loratadine (Loratadine 10 Mg Tab) 10 mg PO HS PRN PRN Reason: Allergy Symptoms Stop: 10/25/23 20:44 Magnesium Oxide (Magnesium Oxide 400 Mg Tab) 400 mg PO [facility] Stop: 10/26/23 08:59 Last Admin: 10/19/23 09:00 Dose: 400 mg Miscellaneous (Carbohydrates For Hypoglycemia ) 15 - 30 gm PO UD PRN PRN Reason: Hypoglycemia Protocol Stop: 10/25/23 20:44 Miscellaneous (Remove Lidoderm Patch) 1 each N/A DAILY@2100 [facility] Stop: 11/03/23 20:59 Last Admin: 10/18/23 20:19 Dose: 1 each Miscellaneous Information (Vancomycin Consult Active) 1 each N/A UD PRN PRN Reason: Consult Stop: 05/16/24 07:18 Pantoprazole Sodium (Pantoprazole 40 Mg Tab) 40 mg PO HS JAMEL Stop: 10/25/23 20:59 Last Admin: 10/18/23 20:13 Dose: 40 mg Polyethylene Glycol (Polyethylene (Miralax) 17 Gm Pack) 17 gm PO BID JAMEL Stop: 10/28/23 10:14 Last Admin: 10/19/23 09:01 Dose: 17 gm Potassium Chloride (Potassium Chloride 10 Meq Tabcr) 10 meq PO BID JAMEL Stop: 10/26/23 08:59 Last Admin: 10/19/23 09:04 Dose: 10 meq Sumatriptan Succinate (Sumatriptan Succinate 100 Mg Tab) 100 mg PO DAILY PRN PRN Reason: Headache Stop: 10/25/23 20:44 Last Admin: 10/18/23 20:09 Dose: 100 mg
--- NOTE | 2023-10-19 17:06 | Hospitalist Progress Note ---
Date of Service October 19, 2023 Assessment & Plan (1) Weakness: (2) Syncope: Plan: 73 yo female with history of diabetes type 2, hypertension, dyslipidemia, hypothyroidism, brain tumor s/p resection, schizophrenia, migraine, anemia, recurrent UTIs Presenting to the hospital after being discharged from [facility] on the day prior to admission. Patient noted to have hypotension, bradycardia for which antihypertensives were removed. WEAKNESS, SYNCOPE LIKELY SECONDARY TO ORTHOSTATIC HYPOTENSION,POSSIBLE UNDERLYING SICK SINUS SYNDROME Patient recently admitted to [facility] for pneumonia, respiratory failure s/p intubation, UTI, delirium, stercoral colitis from constipation And was observed to have bradycardia, metoprolol reduced in dose. While at [facility], patient noted to have borderline blood pressure and bradycardia. Amlodipine, lisinopril, metoprolol subsequently discontinued She has been off these medications for a few days now. She was discharged from [facility] day prior admission She presented with weakness and syncope in the setting of marginal blood pressure and sinus bradycardia in the 50s She had dry oral mucosa and low sodium indicating dehydration. CVA ruled out Brain MRI - no acute CVA 09/26 - Received contact number from for Dimitris Johnsonager ([phone]) pt's nephew. He resides in [place]. He is willing to help with decision making. He was updated on her current and previous hospitalization. He understands cardiology is considering placing a pacemaker and is in agreement with the plan. 09/27 Patient is now s/p PPM placement w/ Dr. Pruitt Has remained stable for the past week PM dressing changed by cardiology service PM function checked- appropriately functioning will need to ff up with Bundle Breaker on discharge Febrile neutropenia Likely due to Clozapine Patient started to spike fever since 10/13 and 10/14 Chest x-ray personally reviewedno acute finding Pacemaker incision siteno soakage or signs of infection or fluctuation or erythema. Incision site looks clean and healthy. Blood culture07/05 from 10/14/2023 growing gram positive bacilli. Repeat blood cx pending Urinalysis not suggestive of infection Was put on empiric antibiotics(Vancomycin and meropenem) --> ID evaluated, reports no concern of infection. Will monitor off antibiotic per ID recommendation. 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 Psychiatry evaluated; agree with holding clozapine. NECK PAIN likely muscular Lidoderm Patch, Toradol PRN Resolved HEADACHE Possible migraine attack CT head no signs of acute process Imitrex as needed DIABETES TYPE 2 Insulin sliding scale Hold metformin HYPERTENSION - with marginal blood pressures on admission bp meds resumed HYPOTHYROIDISM TSH 2.2 BRAIN TUMOR S/P RESECTION SCHIZOPHRENIA Psychiatry evaluated, discontinue clozapine given low ANC/neutropenia. Continue to monitor for emergence of any psychiatric symptoms. May require alternative antipsychotics. MIGRAINE CHRONIC ANEMIA RECURRENT UTI CONSTIPATION - continue bowel regimen - closely monitor, as pt has tendency for severe constipation (previous admission) DVT prophylaxis Lovenox for DVT prophylaxis CODE STATUS Full code as per patient Disposition: likely can dc next 2 days. currently monitoring off of antibiotic T Admission and Anticipated Discharge Date Admission Date: September 25, 2023 Subjective Comfortable. Has been afebrile lately. Denies cough. Reports eating okay and moving bowels okay. Denies any complaints at present time Pacemaker site with no fluctuation/erythema/warmth. Had mild frontal headache, now resolved. Physical Exam Physical Exam: General-alert and awake, not in distress, speaks in sentences with no effort or accessory muscle use Eyes- anicteric Neck- no JVD, no neck stiffness. Lungs- clear breath sounds bilaterally Heart- normal rate, regular rhythm; no murmurs Pacemaker site: No bleeding or discharge Abdomen- normal bowel sounds, nondistended, soft, nontender Extremities- no pretibial edema, no calf tenderness Neuro- alert, oriented x 2; no new gross focal neurologic deficits Skin- warm & dry Results & Data Results & Data Vital Signs (Past 12 Hours) Vital Signs Temp Pulse Resp BP Pulse Ox O2 Del Method 10/19/23 15:31 37.0 C 59 L 16 97/58 L 100 Room Air 10/19/23 07:16 36.5 C 64 16 159/81 H 100 Room Air
[2023-10-20 07:10] LABS: Hematocrit (blood only) 28.2 % (37.0-47.0); Hemoglobin 9.3 g/dl (12.0-16.0); Mean Corpuscular Hemoglobin 28.1 pg (25.0-34.0); Mean Corpuscular Volume 85.2 fL (80.0-100.0); Mean Platelet Volume 10.3 fL (9.4-12.4); Platelet Count 166 K/uL (130-400); RDW Coefficient of Variation 14.6 % (11.5-14.5); RDW Standard Deviation 45.7 fL (36.4-46.3); Red Blood Count 3.31 M/uL (4.20-5.40); White Blood Count 3.26 K/ul (4.8-10.8)
--- NOTE | 2023-10-20 14:58 | Hospitalist Progress Note ---
Date of Service October 20, 2023 Assessment & Plan (1) Weakness: (2) Syncope: Plan: 73 yo female with history of diabetes type 2, hypertension, dyslipidemia, hypothyroidism, brain tumor s/p resection, schizophrenia, migraine, anemia, recurrent UTIs Presenting to the hospital after being discharged from [facility] on the day prior to admission. Patient noted to have hypotension, bradycardia for which antihypertensives were removed. WEAKNESS, SYNCOPE LIKELY SECONDARY TO ORTHOSTATIC HYPOTENSION,POSSIBLE UNDERLYING SICK SINUS SYNDROME Patient recently admitted to [facility] for pneumonia, respiratory failure s/p intubation, UTI, delirium, stercoral colitis from constipation And was observed to have bradycardia, metoprolol reduced in dose. While at [facility], patient noted to have borderline blood pressure and bradycardia. Amlodipine, lisinopril, metoprolol subsequently discontinued She has been off these medications for a few days now. She was discharged from [facility] day prior admission She presented with weakness and syncope in the setting of marginal blood pressure and sinus bradycardia in the 50s She had dry oral mucosa and low sodium indicating dehydration. CVA ruled out Brain MRI - no acute CVA 09/26 - Received contact number from for Dimitris Johnsonager ([phone]) pt's nephew. He resides in [place]. He is willing to help with decision making. He was updated on her current and previous hospitalization. He understands cardiology is considering placing a pacemaker and is in agreement with the plan. 09/27 Patient is now s/p PPM placement w/ Dr. Pruitt Has remained stable for the past week PM dressing changed by cardiology service PM function checked- appropriately functioning will need to ff up with Potato Chip Frier on discharge Febrile neutropenia Likely due to Clozapine Patient started to spike fever since 10/13 and 10/14 Chest x-ray personally reviewedno acute finding Pacemaker incision siteno soakage or signs of infection or fluctuation or erythema. Incision site looks clean and healthy. Blood culture07/05 from 10/14/2023 growing gram positive bacilli. Repeat blood cx pending Urinalysis not suggestive of infection Was put on empiric antibiotics(Vancomycin and meropenem) --> ID evaluated 10/18, reports no concern of infection. Will monitor off antibiotic per ID recommendation. CBC in a.m., will continue to follow-up for any concern for infection, currently no concern for PPM site infection/cellulitis/SEO ASSISTANT infection. Psychiatry evaluated; agree with holding clozapine. appreciate recs 10/18. NECK PAIN likely muscular Lidoderm Patch, Toradol PRN Resolved HEADACHE Possible migraine attack CT head no signs of acute process Imitrex as needed DIABETES TYPE 2 Insulin sliding scale Hold metformin HYPERTENSION - with marginal blood pressures on admission bp meds resumed HYPOTHYROIDISM TSH 2.2 BRAIN TUMOR S/P RESECTION SCHIZOPHRENIA Psychiatry evaluated, discontinue clozapine given low ANC/neutropenia. Continue to monitor for emergence of any psychiatric symptoms. May require alternative antipsychotics. MIGRAINE CHRONIC ANEMIA RECURRENT UTI CONSTIPATION - continue bowel regimen - closely monitor, as pt has tendency for severe constipation (previous admission) DVT prophylaxis Lovenox for DVT prophylaxis CODE STATUS Full code as per patient Disposition: likely can dc next 1-2 days. currently monitoring off of antibiotic T Admission and Anticipated Discharge Date Admission Date: September 25, 2023 Subjective Comfortable. Has been afebrile lately. Denies cough. Reports eating okay and moving bowels okay. Denies any complaints at present time. Reports chronic mild frontal headache on and off; pt advised to utilize prn tylenol. Pacemaker site with no fluctuation/erythema/warmth. Physical Exam Physical Exam: General-alert and awake, not in distress, speaks in sentences with no effort or accessory muscle use Eyes- anicteric Neck- no JVD, no neck stiffness. Lungs- clear breath sounds bilaterally Heart- normal rate, regular rhythm; no murmurs Pacemaker site: No bleeding or discharge Abdomen- normal bowel sounds, nondistended, soft, nontender Extremities- no pretibial edema, no calf tenderness Neuro- alert, oriented x 2; no new gross focal neurologic deficits Skin- warm & dry Results & Data Results & Data Vital Signs (Past 12 Hours) Vital Signs Temp Pulse Resp BP Pulse Ox O2 Del Method 10/20/23 07:23 36.7 C 69 18 154/74 H 99 Room Air
[2023-10-21 06:19] LABS: Hematocrit (blood only) 28.6 % (37.0-47.0); Hemoglobin 9.3 g/dl (12.0-16.0); Mean Corpuscular Hgb Conc 32.5 g/dL (32.0-36.0); Mean Corpuscular Volume 86.1 fL (80.0-100.0); Mean Platelet Volume 10.1 fL (9.4-12.4); Platelet Count 185 K/uL (130-400); RDW Coefficient of Variation 14.6 % (11.5-14.5); Red Blood Count 3.32 M/uL (4.20-5.40); White Blood Count 3.51 K/ul (4.8-10.8)
--- NOTE | 2023-10-21 16:05 | Hospitalist Progress Note ---
Date of Service October 21, 2023 Assessment & Plan (1) Weakness: (2) Syncope: Plan: 73 yo female with history of diabetes type 2, hypertension, dyslipidemia, hypothyroidism, brain tumor s/p resection, schizophrenia, migraine, anemia, recurrent UTIs Presenting to the hospital after being discharged from on the day prior to admission. Patient noted to have hypotension, bradycardia for which antihypertensives were removed. WEAKNESS, SYNCOPE LIKELY SECONDARY TO ORTHOSTATIC HYPOTENSION,POSSIBLE UNDERLYING SICK SINUS SYNDROME Patient recently admitted to [facility] for pneumonia, respiratory failure s/p intubation, UTI, delirium, stercoral colitis from constipation And was observed to have bradycardia, metoprolol reduced in dose. While at [facility], patient noted to have borderline blood pressure and bradycardia. Amlodipine, lisinopril, metoprolol subsequently discontinued She has been off these medications for a few days now. She was discharged from [facility] day prior admission She presented with weakness and syncope in the setting of marginal blood pressure and sinus bradycardia in the 50s She had dry oral mucosa and low sodium indicating dehydration. CVA ruled out Brain MRI - no acute CVA 09/26 - Received contact number from for Dimitris Johnsonager ([phone]) pt's nephew. He resides in [place]. He is willing to help with decision making. He was updated on her current and previous hospitalization. He understands cardiology is considering placing a pacemaker and is in agreement with the plan. 09/27 Patient is now s/p PPM placement w/ Dr. Pruitt Has remained stable for the past week PM dressing changed by cardiology service PM function checked- appropriately functioning will need to ff up with Manganese Heater on discharge Febrile neutropenia Likely due to Clozapine Patient started to spike fever since 10/13 and 10/14 Chest x-ray personally reviewedno acute finding Pacemaker incision siteno soakage or signs of infection or fluctuation or erythema. Incision site looks clean and healthy. Blood culture07/05 from 10/14/2023 growing gram positive bacilli. Repeat blood cx pending Urinalysis not suggestive of infection Was put on empiric antibiotics(Vancomycin and meropenem) --> ID evaluated 10/18, reports no concern of infection. Will monitor off antibiotic per ID recommendation.---> no fever so far. 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 Psychiatry evaluated; agree with holding clozapine. appreciate recs 10/18. NECK PAIN likely muscular Lidoderm Patch, Toradol PRN Resolved HEADACHE Possible migraine attack CT head no signs of acute process Imitrex as needed DIABETES TYPE 2 Insulin sliding scale Hold metformin HYPERTENSION - with marginal blood pressures on admission bp meds resumed HYPOTHYROIDISM TSH 2.2 BRAIN TUMOR S/P RESECTION SCHIZOPHRENIA Psychiatry evaluated, discontinue clozapine given low ANC/neutropenia. Continue to monitor for emergence of any psychiatric symptoms. May require alternative antipsychotics. MIGRAINE CHRONIC ANEMIA RECURRENT UTI CONSTIPATION - continue bowel regimen - closely monitor, as pt has tendency for severe constipation (previous admission) DVT prophylaxis Lovenox for DVT prophylaxis CODE STATUS Full code as per patient Disposition: if no fever by sheron, should be able to dc. T Admission and Anticipated Discharge Date Admission Date: September 25, 2023 Subjective Comfortable. Has been afebrile lately. Denies cough. Reports eating okay and moving bowels okay. Denies any complaints at present time. Reports chronic mild frontal headache on and off; pt advised to utilize prn tylenol. Pacemaker site with no fluctuation/erythema/warmth. Physical Exam Physical Exam: General-alert and awake, not in distress, speaks in sentences with no effort or accessory muscle use Eyes- anicteric Neck- no JVD, no neck stiffness. Lungs- clear breath sounds bilaterally Heart- normal rate, regular rhythm; no murmurs Pacemaker site: No bleeding or discharge Abdomen- normal bowel sounds, nondistended, soft, nontender Extremities- no pretibial edema, no calf tenderness Neuro- alert, oriented x 2; no new gross focal neurologic deficits Skin- warm & dry Results & Data Results & Data Vital Signs (Past 12 Hours) Vital Signs Temp Pulse Pulse Resp BP Pulse Ox O2 Del Method 10/21/23 15:43 36.6 C 67 18 104/63 99 Room Air 10/21/23 07:31 36.1 C L 68 16 171/77 H 100 Room Air
--- NOTE | 2023-10-22 15:36 | Hospitalist Progress Note ---
Date of Service October 22, 2023 Assessment & Plan (1) Weakness: (2) Syncope: Plan: 73 yo female with history of diabetes type 2, hypertension, dyslipidemia, hypothyroidism, brain tumor s/p resection, schizophrenia, migraine, anemia, recurrent UTIs Presenting to the hospital after being discharged from [facility] on the day prior to admission. Patient noted to have hypotension, bradycardia for which antihypertensives were removed. WEAKNESS, SYNCOPE LIKELY SECONDARY TO ORTHOSTATIC HYPOTENSION,POSSIBLE UNDERLYING SICK SINUS SYNDROME Patient recently admitted to [facility] for pneumonia, respiratory failure s/p intubation, UTI, delirium, stercoral colitis from constipation And was observed to have bradycardia, metoprolol reduced in dose. While at [facility], patient noted to have borderline blood pressure and bradycardia. Amlodipine, lisinopril, metoprolol subsequently discontinued She has been off these medications for a few days now. She was discharged from [facility] day prior admission She presented with weakness and syncope in the setting of marginal blood pressure and sinus bradycardia in the 50s She had dry oral mucosa and low sodium indicating dehydration. CVA ruled out Brain MRI - no acute CVA 09/26 - Received contact number from for Dimitris Johnsonager ([phone]) pt's nephew. He resides in [place]. He is willing to help with decision making. He was updated on her current and previous hospitalization. He understands cardiology is considering placing a pacemaker and is in agreement with the plan. 09/27 Patient is now s/p PPM placement w/ Dr. Pruitt Has remained stable for the past week PM dressing changed by cardiology service PM function checked- appropriately functioning will need to ff up with Maintenance Supervisor on discharge Febrile neutropenia Likely due to Clozapine Patient started to spike fever since 10/13 and 10/14 Chest x-ray personally reviewedno acute finding Pacemaker incision siteno soakage or signs of infection or fluctuation or erythema. Incision site looks clean and healthy. Blood culture07/05 from 10/14/2023 growing gram positive bacilli. Repeat blood cx pending Urinalysis not suggestive of infection Was put on empiric antibiotics(Vancomycin and meropenem) --> ID evaluated 10/18, reports no concern of infection. Will monitor off antibiotic per ID recommendation.---> no fever so far. CBC in a.m., will continue to follow-up for any concern for infection, currently no concern for PPM site infection/cellulitis/DAYCARE PROVIDER infection. Psychiatry evaluated; agree with holding clozapine. appreciate recs 10/18. NECK PAIN likely muscular Lidoderm Patch, Toradol PRN Resolved HEADACHE Possible migraine attack CT head no signs of acute process Imitrex as needed DIABETES TYPE 2 Insulin sliding scale Hold metformin HYPERTENSION - with marginal blood pressures on admission bp meds resumed HYPOTHYROIDISM TSH 2.2 BRAIN TUMOR S/P RESECTION SCHIZOPHRENIA Psychiatry evaluated, discontinue clozapine given low ANC/neutropenia. Continue to monitor for emergence of any psychiatric symptoms. May require alternative antipsychotics. MIGRAINE CHRONIC ANEMIA RECURRENT UTI CONSTIPATION - continue bowel regimen - closely monitor, as pt has tendency for severe constipation (previous admission) DVT prophylaxis Lovenox for DVT prophylaxis CODE STATUS Full code as per patient Disposition: stable for dc to placement. Admission and Anticipated Discharge Date Admission Date: September 25, 2023 Subjective Comfortable. Has been afebrile lately. Denies cough. Reports eating okay and moving bowels okay. Denies any complaints at present time. Reports chronic mild frontal headache on and off; pt advised to utilize prn tylenol. Pacemaker site with no fluctuation/erythema/warmth. Physical Exam Physical Exam: General-alert and awake, not in distress, speaks in sentences with no effort or accessory muscle use Eyes- anicteric Neck- no JVD, no neck stiffness. Lungs- clear breath sounds bilaterally Heart- normal rate, regular rhythm; no murmurs Pacemaker site: No bleeding or discharge Abdomen- normal bowel sounds, nondistended, soft, nontender Extremities- no pretibial edema, no calf tenderness Neuro- alert, oriented x 2; no new gross focal neurologic deficits Skin- warm & dry Results & Data Results & Data Vital Signs (Past 12 Hours) Vital Signs Temp Pulse Resp BP Pulse Ox O2 Del Method 10/22/23 15:19 36.6 C 60 16 136/73 100 Room Air 10/22/23 07:24 36.6 C 67 14 174/79 H 100 Room Air
--- NOTE | 2023-10-23 14:23 | Hospitalist Progress Note ---
Date of Service October 23, 2023 Assessment & Plan (1) Weakness: (2) Syncope: Plan: 73 yo female with history of diabetes type 2, hypertension, dyslipidemia, hypothyroidism, brain tumor s/p resection, schizophrenia, migraine, anemia, recurrent UTIs Presenting to the hospital after being discharged from [facility] on the day prior to admission. Patient noted to have hypotension, bradycardia for which antihypertensives were removed. WEAKNESS, SYNCOPE LIKELY SECONDARY TO ORTHOSTATIC HYPOTENSION,POSSIBLE UNDERLYING SICK SINUS SYNDROME Patient recently admitted to [facility] for pneumonia, respiratory failure s/p intubation, UTI, delirium, stercoral colitis from constipation And was observed to have bradycardia, metoprolol reduced in dose. While at [facility] rehab, patient noted to have borderline blood pressure and bradycardia. Amlodipine, lisinopril, metoprolol subsequently discontinued She has been off these medications for a few days now. She was discharged from [facility] re[facility] day prior admission She presented with weakness and syncope in the setting of marginal blood pressure and sinus bradycardia in the 50s She had dry oral mucosa and low sodium indicating dehydration. CVA ruled out Brain MRI - no acute CVA 09/26 - Received contact number from for Dimitris Johnsonager ([phone]) pt's nephew. He resides in [place]. He is willing to help with decision making. He was updated on her current and previous hospitalization. He understands cardiology is considering placing a pacemaker and is in agreement with the plan. 09/27 Patient is now s/p PPM placement w/ Dr. Pruitt Has remained stable for the past week PM dressing changed by cardiology service PM function checked- appropriately functioning will need to ff up with [employer] Supervisor on discharge Febrile neutropenia Likely due to Clozapine Patient started to spike fever since 10/13 and 10/14 Chest x-ray personally reviewedno acute finding Pacemaker incision siteno soakage or signs of infection or fluctuation or erythema. Incision site looks clean and healthy. Blood culture07/05 from 10/14/2023 growing gram positive bacilli. Repeat blood cx negative Urinalysis not suggestive of infection Was put on empiric antibiotics(Vancomycin and meropenem) --> ID evaluated 10/18, reports no concern of infection. Will monitor off antibiotic per ID recommendation.---> no fever so far. CBC in a.m., will continue to follow-up for any concern for infection, currently no concern for PPM site infection/cellulitis/CLOTH PRINTER infection. Psychiatry evaluated; agree with holding clozapine. appreciate recs 10/18. NECK PAIN likely muscular Lidoderm Patch, Toradol PRN Resolved HEADACHE Possible migraine attack CT head no signs of acute process Imitrex as needed DIABETES TYPE 2 last a1c 5.9 05/2023 she has not been requiring sliding scale insulin will discontinue accuchecks and insulin HYPERTENSION Chronic, stable Continue lisinopril Monitor BMP as she is also on supplemental potassium twice daily HYPOTHYROIDISM TSH 2.2 continue levothyroxine BRAIN TUMOR S/P RESECTION SCHIZOPHRENIA Psychiatry evaluated, discontinue clozapine given low ANC/neutropenia. Continue to monitor for emergence of any psychiatric symptoms. May require alternative antipsychotics. It is recommended to trial olazapine 2.5mg at HS if symptoms recur but would reach out to psych prior to initiating if needed CONSTIPATION - continue bowel regimen - closely monitor, as pt has tendency for severe constipation (previous admission) DVT prophylaxis Lovenox for DVT prophylaxis CODE STATUS Full code as per patient Disposition: stable for dc to placement. PCP: Soo A total of 40 minutes was spent coordinating, documenting, and providing care for this patient excluding time spent in the performance of separately billed services. This included personally viewing all current laboratories and imaging studies, medication reconciliation, outpatient chart review, and discussion with specialists. Admission and Anticipated Discharge Date Admission Date: September 25, 2023 Subjective Patient was seen and examined in 378. Follow-up weakness. Offers no acute concerns. She ate all of her breakfast. Denies fever, chills, sweats, lightheadedness, dizziness, chest pain, shortness breath, nausea, vomiting. Review of Systems Review of Systems: All systems reviewed & are unremarkable except as noted in HPI & below Physical Exam Physical Exam: Gen: Petite, frail, elderly female, sitting up in bed, NAD, A&O x2 HEENT: Normocephalic, atraumatic, conjunctivae moist, sclerae anicteric, mucous membranes moist. Lung: Clear to Auscultation bilaterally, no wheezes/rales/rhonchi Heart: Regular rate, regular rhythm, no murmurs, rubs, or gallops Abdomen: Soft, NT, ND +BS x 4 Extremities: No edema Skin: Warm, no rash, negative turgor. Results & Data Results & Data Vital Signs (Past 12 Hours) Vital Signs Temp Pulse Pulse Resp BP Pulse Ox O2 Del Method 10/23/23 11:23 37.0 C 64 16 113/70 99 Room Air 10/23/23 08:54 Room Air 10/23/23 07:44 36.6 C 60 14 165/78 H 100 Room Air 10/23/23 06:26 36.7 C 61 18 161/83 H 99 Room Air Medications Administered Current Inpatient Medications Acetaminophen (Acetaminophen 325 Mg Tab) 650 mg PO Q8 JAMEL Stop: 11/10/23 14:59 Last Admin: 10/23/23 13:36 Dose: 650 mg Aspirin (Aspirin 81 Mg Ectab) 81 mg PO DAILY JAMEL Stop: 10/26/23 08:59 Last Admin: 10/23/23 07:37 Dose: 81 mg Atorvastatin Calcium (Atorvastatin 20 Mg Tab) 20 mg PO HS JAMEL Stop: 10/25/23 20:59 Last Admin: 10/22/23 20:09 Dose: 20 mg Cyanocobalamin (Cyanocobalamin (B-12) 500 Mcg Tablet) 1,000 mcg PO DAILY JAMEL Stop: 10/26/23 08:59 Last Admin: 10/23/23 07:37 Dose: 1,000 mcg Dextrose (Dextrose 50% 50 Ml Syringe) 25 - 50 ml IV UD PRN; Protocol PRN Reason: Hypoglycemia Protocol Stop: 10/25/23 20:44 Docusate Sodium (Docusate Sodium 100 Mg Cap) 100 mg PO BID JAMEL Stop: 10/28/23 10:29 Last Admin: 10/23/23 07:37 Dose: 100 mg Enoxaparin Sodium (Enoxaparin Inj 40 Mg/0.4 Ml Syr) 40 mg SQ QAM JAMEL Stop: 11/01/23 12:29 Last Admin: 10/23/23 07:37 Dose: 40 mg Fluticasone Propionate (Fluticasone Propionate Na Spr 16 Gm Btl) 2 sprays NA DAILY JAMEL Stop: 10/26/23 08:59 Last Admin: 10/23/23 07:38 Dose: 2 sprays Glucagon (Glucagon For Inj 1 Mg Vial) 1 mg SQ UD PRN; Protocol PRN Reason: Hypoglycemia Protocol Stop: 10/25/23 20:44 Glucose (Glucose 10 Tab/Tube) 4 - 8 tab PO UD PRN; Protocol PRN Reason: Hypoglycemia Treatment Stop: 10/25/23 20:44 Glucose (Glucose 40% Gel 15 Gm Tube) 15 - 30 gm PO UD PRN; Protocol PRN Reason: Hypoglycemia Protocol Stop: 10/25/23 20:44 Insulin Aspart (Insulin Aspart Per Unit Charge) 0 units SC ACHS [facility] Stop: 10/25/23 20:59 Last Admin: 10/23/23 12:29 Dose: Not Given Levothyroxine Sodium (Levothyroxine Sodium 50 Mcg Tablet) 50 mcg PO DAILYBB [facility] Stop: 10/26/23 06:29 Last Admin: 10/23/23 06:12 Dose: 50 mcg Lidocaine (L[facility]oc[facility] 5% 1 Patch) [facility] [place]: 11/03/23 11:14 Last Admin: 10/23/23 07:38 Dose: 1 patch Lisinopril (Lisinopril 5 Mg Tab) 5 mg PO QAM [facility] Stop: 10/30/23 09:29 Last Admin: 10/23/23 07:37 Dose: 5 mg Loratadine (Loratadine 10 Mg Tab) 10 mg PO HS PRN PRN Reason: Allergy Symptoms Stop: 10/25/23 20:44 Magnesium Oxide (Magnesium Oxide 400 Mg Tab) [facility] [place]: 10/26/23 08:59 Last Admin: 10/23/23 07:37 Dose: 400 mg Miscellaneous (Carbohydrates For Hypoglycemia ) 15 - 30 gm PO UD PRN PRN Reason: Hypoglycemia Protocol Stop: 10/25/23 20:44 Miscellaneous (Remove Lidoderm Patch) 1 each N/A DAILY@2100 [facility] Stop: 11/03/23 20:59 Last Admin: 10/22/23 20:08 Dose: 1 each Pantoprazole Sodium (Pantoprazole 40 Mg Tab) 40 mg PO HS [facility] Stop: 10/25/23 20:59 Last Admin: 10/22/23 20:09 Dose: 40 mg Polyethylene Glycol (Polyethylene (Miralax) 17 Gm Pack) 17 gm PO BID [facility] Stop: 10/28/23 10:14 Last Admin: 10/23/23 07:38 Dose: Not Given Potassium Chloride (Potassium Chloride 10 Meq Tabcr) 10 meq PO BID [facility] Stop: 10/26/23 08:59 Last Admin: 10/23/23 07:41 Dose: 10 meq Sumatriptan Succinate (Sumatriptan Succinate 100 Mg Tab) 100 mg PO DAILY PRN PRN Reason: Headache Stop: 10/25/23 20:44 Last Admin: 10/18/23 20:09 Dose: 100 mg
[2023-10-24 08:22] LABS: Hematocrit (blood only) 32.4 % (37.0-47.0); Hemoglobin 10.4 g/dl (12.0-16.0); Mean Corpuscular Hemoglobin 27.8 pg (25.0-34.0); Mean Corpuscular Hgb Conc 32.1 g/dL (32.0-36.0); Mean Corpuscular Volume 86.6 fL (80.0-100.0); Platelet Count 231 K/uL (130-400); RDW Coefficient of Variation 14.3 % (11.5-14.5); Red Blood Count 3.74 M/uL (4.20-5.40); White Blood Count 3.63 K/ul (4.8-10.8)
[2023-10-24 08:40] LABS: Albumin Globulin Ratio 1.9 (0.9-2); Albumin Level 3.7 gm/dl (3.4-5.0); BUN Creatinine Ratio 36.6 (10-20); Bilirubin,Total 0.3 mg/dl (0.2-1.0); Calcium 9.5 mg/dl (8.6-10.3); Creatinine Clr Calc Pharmacy 100.9 ml/min; Est GFR (Non-African American) 101.8 ml/min; Globulin 1.9 gm/dl (2.5-4.0); Potassium 4.3 mmol/L (3.5-5.1); Total Protein 5.6 gm/dl (6.0-8.3)
[2023-10-24 09:06] LABS: Basophils # (auto) 0.03 K/uL (0.00-0.20); Basophils % (auto) 0.8 %; Immature Granulocytes # (auto) 0.01 K/uL (0.01-0.20); Immature Granulocytes % (auto) 0.3 %; Lymphocytes # (auto) 2.08 K/uL (1.20-3.40); Lymphocytes % (auto) 57.3 %; Monocytes # (auto) 0.25 K/uL (0.11-0.59); Monocytes % (auto) 6.9 %; Neutrophils # (auto) 1.26 K/uL (1.40-6.50); Neutrophils % (auto) 34.7 %
[2023-10-24 09:50] LABS: Estimated Average Glucose 105 mg/dl; Hemoglobin A1C 5.3 % (4.5-5.6)
--- NOTE | 2023-10-24 13:59 | Hospitalist Progress Note ---
Date of Service October 24, 2023 Assessment & Plan (1) Weakness: (2) Syncope: Plan: 73 yo female with history of diabetes type 2, hypertension, dyslipidemia, hypothyroidism, brain tumor s/p resection, schizophrenia, migraine, anemia, recurrent UTIs Presenting to the hospital after being discharged from [facility] on the day prior to admission. Patient noted to have hypotension, bradycardia for which antihypertensives were removed. WEAKNESS, SYNCOPE LIKELY SECONDARY TO ORTHOSTATIC HYPOTENSION,POSSIBLE UNDERLYING SICK SINUS SYNDROME Patient recently admitted to [facility] for pneumonia, respiratory failure s/p intubation, UTI, delirium, stercoral colitis from constipation And was observed to have bradycardia, metoprolol reduced in dose. While at [facility] rehab, patient noted to have borderline blood pressure and bradycardia. Amlodipine, lisinopril, metoprolol subsequently discontinued She has been off these medications for a few days now. She was discharged from [facility] re[facility] day prior admission She presented with weakness and syncope in the setting of marginal blood pressure and sinus bradycardia in the 50s She had dry oral mucosa and low sodium indicating dehydration. CVA ruled out Brain MRI - no acute CVA 09/26 - Received contact number from for Dimitris Johnsonager ([phone]) pt's nephew. He resides in [place]. He is willing to help with decision making. He was updated on her current and previous hospitalization. He understands cardiology is considering placing a pacemaker and is in agreement with the plan. 09/27 Patient is now s/p PPM placement w/ Dr. Pruitt Has remained stable for the past week PM dressing changed by cardiology service PM function checked- appropriately functioning will need to ff up with Adjunct Psychology Faculty Member on discharge Febrile neutropenia Likely due to Clozapine Patient started to spike fever since 10/13 and 10/14 Chest x-ray personally reviewedno acute finding Pacemaker incision siteno soakage or signs of infection or fluctuation or erythema. Incision site looks clean and healthy. Blood culture07/05 from 10/14/2023 growing gram positive bacilli. Repeat blood cx negative Urinalysis not suggestive of infection Was put on empiric antibiotics(Vancomycin and meropenem) --> ID evaluated 10/18, reports no concern of infection. Will monitor off antibiotic per ID recommendation.---> no fever so far. 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 Psychiatry evaluated; agree with holding clozapine. appreciate recs 10/18. NECK PAIN likely muscular Lidoderm Patch, Toradol PRN Resolved HEADACHE Possible migraine attack CT head no signs of acute process Imitrex as needed DIABETES TYPE 2 last a1c 5.9 05/2023 she has not been requiring sliding scale insulin will discontinue accuchecks and insulin HYPERTENSION Chronic, stable Continue lisinopril Monitor BMP as she is also on supplemental potassium twice daily HYPOTHYROIDISM TSH 2.2 continue levothyroxine BRAIN TUMOR S/P RESECTION SCHIZOPHRENIA Psychiatry evaluated, discontinue clozapine given low ANC/neutropenia. Continue to monitor for emergence of any psychiatric symptoms. May require alternative antipsychotics. It is recommended to trial olazapine 2.5mg at HS if symptoms recur but would reach out to psych prior to initiating if needed CONSTIPATION - continue bowel regimen - closely monitor, as pt has tendency for severe constipation (previous admission) DVT prophylaxis Lovenox for DVT prophylaxis CODE STATUS Full code as per patient Disposition: stable for dc to placement. PCP: Soo A total of 42 minutes was spent coordinating, documenting, and providing care for this patient excluding time spent in the performance of separately billed services. This included personally viewing all current laboratories and imaging studies, medication reconciliation, outpatient chart review, and discussion with specialists. Admission and Anticipated Discharge Date Admission Date: September 25, 2023 Subjective Patient was seen and examined in 378. Follow-up weakness. Offers no acute concerns. She had a good breakfast. Denies pain, f/c/s, chest pain, sob. States she hasn't been out of bed much. Review of Systems Review of Systems: All systems reviewed & are unremarkable except as noted in HPI & below Physical Exam Physical Exam: Gen: Petite, frail, elderly female, sitting up in bed, NAD, A&O x3 HEENT: Normocephalic, atraumatic, conjunctivae moist, sclerae anicteric, mucous membranes moist. Lung: Clear to Auscultation bilaterally, no wheezes/rales/rhonchi Heart: Regular rate, regular rhythm, no murmurs, rubs, or gallops Abdomen: Soft, NT, ND +BS x 4 Extremities: No edema Skin: Warm, no rash, negative turgor. Results & Data Results & Data Vital Signs (Past 12 Hours) Vital Signs Temp Pulse Resp BP Pulse Ox O2 Del Method 10/24/23 07:42 36.5 C 70 20 165/81 H 99 Room Air Laboratory Results Short CBC 10/24/23 Range/Units 07:52 WBC 3.63 L (4.8-10.8) K/ul Hgb 10.4 L (12.0-16.0) g/dl Hct 32.4 L (37.0-47.0) % Plt Count 231 (130-400) K/uL BMP 10/24/23 07:52 Sodium 137 Potassium 4.3 Chloride 103 Carbon Dioxide 28 BUN 15 Creatinine 0.41 L Glucose 102 H Calcium 9.5 Liver Function 10/24/23 Range/Units 07:52 Total Bilirubin 0.3 (0.2-1.0) mg/dl AST 13 (13-39) U/L ALT 16 (7-52) U/L Alkaline Phosphatase 58 (34-104) U/L Albumin 3.7 (3.4-5.0) gm/dl Medications Administered Current Inpatient Medications Acetaminophen (Acetaminophen 325 Mg Tab) 650 mg PO Q8 JAMEL Stop: 11/10/23 14:59 Last Admin: 10/24/23 13:39 Dose: 650 mg Aspirin (Aspirin 81 Mg Ectab) 81 mg PO DAILY JAMEL Stop: 10/26/23 08:59 Last Admin: 10/24/23 07:49 Dose: 81 mg Atorvastatin Calcium (Atorvastatin 20 Mg Tab) 20 mg PO HS JAMEL Stop: 10/25/23 20:59 Last Admin: 10/23/23 20:42 Dose: 20 mg Cyanocobalamin (Cyanocobalamin (B-12) 500 Mcg Tablet) 1,000 mcg PO DAILY JAMEL Stop: 10/26/23 08:59 Last Admin: 10/24/23 07:48 Dose: 1,000 mcg Dextrose (Dextrose 50% 50 Ml Syringe) 25 - 50 ml IV UD PRN; Protocol PRN Reason: Hypoglycemia Protocol Stop: 10/25/23 20:44 Docusate Sodium (Docusate Sodium 100 Mg Cap) 100 mg PO BID JAMEL Stop: 10/28/23 10:29 Last Admin: 10/24/23 07:53 Dose: 100 mg Enoxaparin Sodium (Enoxaparin Inj 40 Mg/0.4 Ml Syr) 40 mg SQ QAM JAMEL Stop: 11/01/23 12:29 Last Admin: 10/24/23 07:49 Dose: 40 mg Fluticasone Propionate (Fluticasone Propionate Na Spr 16 Gm Btl) 2 sprays NA DAILY [facility] Stop: 10/26/23 08:59 Last Admin: 10/24/23 07:49 Dose: 2 sprays Glucagon (Glucagon For Inj 1 Mg Vial) 1 mg SQ UD PRN; Protocol PRN Reason: Hypoglycemia Protocol Stop: 10/25/23 20:44 Glucose (Glucose 10 Tab/Tube) 4 - 8 tab PO UD PRN; Protocol PRN Reason: Hypoglycemia Treatment Stop: 10/25/23 20:44 Glucose (Glucose 40% Gel 15 Gm Tube) 15 - 30 gm PO UD PRN; Protocol PRN Reason: Hypoglycemia Protocol Stop: 10/25/23 20:44 Levothyroxine Sodium (Levothyroxine Sodium 50 Mcg Tablet) 50 mcg PO DAILYBB [facility] Stop: 10/26/23 06:29 Last Admin: 10/24/23 06:11 Dose: 50 mcg Lidocaine (Lidocaine 5% 1 Patch) 1 patch TD QAM [facility] Stop: 11/03/23 11:14 Last Admin: 10/24/23 07:49 Dose: 1 patch Lisinopril (Lisinopril 5 Mg Tab) 5 mg PO QAM [facility] Stop: 10/30/23 09:29 Last Admin: 10/24/23 07:48 Dose: 5 mg Loratadine (Loratadine 10 Mg Tab) 10 mg PO HS PRN PRN Reason: Allergy Symptoms Stop: 10/25/23 20:44 Magnesium Oxide (Magnesium Oxide 400 Mg Tab) [facility] Stop: 10/26/23 08:59 Last Admin: 10/24/23 07:48 Dose: 400 mg Miscellaneous (Carbohydrates For Hypoglycemia ) 15 - 30 gm PO UD PRN PRN Reason: Hypoglycemia Protocol Stop: 10/25/23 20:44 Miscellaneous (Remove Lidoderm Patch) 1 each N/A DAILY@2100 [facility] Stop: 11/03/23 20:59 Last Admin: 10/23/23 20:44 Dose: 1 each Pantoprazole Sodium (Pantoprazole 40 Mg Tab) 40 mg PO HS [facility] Stop: 10/25/23 20:59 Last Admin: 10/23/23 20:42 Dose: 40 mg Polyethylene Glycol (Polyethylene (Miralax) 17 Gm Pack) 17 gm PO BID [facility] Stop: 10/28/23 10:14 Last Admin: 10/24/23 07:54 Dose: 17 gm Potassium Chloride (Potassium Chloride 10 Meq Tabcr) 10 meq PO BID [facility] Stop: 10/26/23 08:59 Last Admin: 10/24/23 10:03 Dose: 10 meq Sumatriptan Succinate (Sumatriptan Succinate 100 Mg Tab) 100 mg PO DAILY PRN PRN Reason: Headache Stop: 10/25/23 20:44 Last Admin: 10/18/23 20:09 Dose: 100 mg
--- NOTE | 2023-10-25 17:32 | Hospitalist Progress Note ---
Date of Service October 25, 2023 Assessment & Plan (1) Weakness: (2) Syncope: Plan: 73 yo female with history of diabetes type 2, hypertension, dyslipidemia, hypothyroidism, brain tumor s/p resection, schizophrenia, migraine, anemia, recurrent UTIs Presenting to the hospital after being discharged from [facility] on the day prior to admission. Patient noted to have hypotension, bradycardia for which antihypertensives were removed. WEAKNESS, SYNCOPE LIKELY SECONDARY TO ORTHOSTATIC HYPOTENSION,POSSIBLE UNDERLYING SICK SINUS SYNDROME Patient recently admitted to [facility] for pneumonia, respiratory failure s/p intubation, UTI, delirium, stercoral colitis from constipation (discharged 09/14/2023) And was observed to have bradycardia, metoprolol reduced in dose. While at [facility], patient noted to have borderline blood pressure and bradycardia. Amlodipine, lisinopril, metoprolol subsequently discontinued She was discharged from [facility] day prior admission She presented with weakness and syncope in the setting of marginal blood pressure and sinus bradycardia in the 50s She had dry oral mucosa and low sodium indicating dehydration. CVA ruled out Brain MRI - no acute CVA 09/26 - Received contact number from for Dimitris Johnsonager ([phone]) pt's nephew. He resides in [place]. He is willing to help with decision making. He was updated on her current and previous hospitalization. He understands cardiology is considering placing a pacemaker and is in agreement with the plan. 09/27 s/p PPM placement w/ Dr. Pruitt Has remained stabled PM dressing changed by cardiology service PM function checked- appropriately functioning will need to f/u with [facility] on discharge Febrile neutropenia Likely due to Clozapine Patient started to spike fever since 10/13 and 10/14 Chest x-ray no acute finding Pacemaker incision site without sign of infection Blood culture07/05 from 10/14/2023 growing gram positive bacilli. Repeat blood cx negative Urinalysis not suggestive of infection Was put on empiric antibiotics(Vancomycin and meropenem) --> ID evaluated 10/18, reports no concern of infection. Will monitor off antibiotic per ID recomm endation.---> Remains afebrile Psychiatry evaluated; agree with holding clozapine. appreciate recs 10/18. NECK PAIN likely muscular Lidoderm Patch, Toradol PRN Resolved HEADACHE Possible migraine attack CT head no signs of acute process Imitrex as needed DIABETES TYPE 2 last a1c 5.9 05/2023 she has not been requiring sliding scale insulin Accu-Cheks and insulin d/c'd HYPERTENSION Chronic, stable Continue lisinopril HYPOTHYROIDISM TSH 2.2 continue levothyroxine BRAIN TUMOR S/P RESECTION SCHIZOPHRENIA Psychiatry evaluated, discontinue clozapine given low ANC/neutropenia. Continue to monitor for emergence of any psychiatric symptoms. May require alternative antipsychotics. It is recommended to trial olazapine 2.5mg at HS if symptoms recur but would reach out to psych prior to initiating if needed CONSTIPATION continue bowel regimen closely monitor, as pt has tendency for severe constipation (previous admission) DVT prophylaxis SQ Lovenox Dispo: CM following, guardianship paperwork in place, medically stable for discharge to rehab once guardianship in place Patient seen in collaboration with Dr. Ward Admission and Anticipated Discharge Date Admission Date: September 25, 2023 Subjective Follow-up for weakness, syncope Alina orthostatic hypotension, sick sinus syndrome. Patient seen and examined. Sitting up in the chair. Offers no complaints. Physical Exam Constitutional: WD/WN, vitals as above no acute distress Respiratory: normal respiratory effort, lungs clear to auscultation Cardiovascular: Rate/Rhythm: regular rate and regular rhythm Vessels: normal peripheral pulses Extremities: no edema Gastrointestinal (Abdomen): Percussion/Palpation: abdomen soft; abdomen nontender Skin: no rashes, warm and dry Neurologic: no focal motor deficits Psychiatric: Orientation: alert, oriented to person and cooperative; + not oriented to place and + not oriented to time Results & Data Results & Data Vital Signs (Past 12 Hours) Vital Signs Temp Pulse Resp BP Pulse Ox O2 Del Method 10/25/23 15:17 36.9 C 60 16 110/69 99 Room Air 10/25/23 08:50 36.7 C 60 16 130/75 99 Room Air
--- NOTE | 2023-10-26 16:55 | Hospitalist Progress Note ---
Date of Service October 26, 2023 Assessment & Plan (1) Weakness: (2) Syncope: Plan: 73 yo female with history of diabetes type 2, hypertension, dyslipidemia, hypothyroidism, brain tumor s/p resection, schizophrenia, migraine, anemia, recurrent UTIs Presenting to the hospital after being discharged from [facility] on the day prior to admission. Patient noted to have hypotension, bradycardia for which antihypertensives were removed. WEAKNESS, SYNCOPE LIKELY SECONDARY TO ORTHOSTATIC HYPOTENSION,POSSIBLE UNDERLYING SICK SINUS SYNDROME Patient recently admitted to [facility] for pneumonia, respiratory failure s/p intubation, UTI, delirium, stercoral colitis from constipation (discharged 09/14/2023) And was observed to have bradycardia, metoprolol reduced in dose. While at [facility], patient noted to have borderline blood pressure and bradycardia. Amlodipine, lisinopril, metoprolol subsequently discontinued She was discharged from [facility] day prior admission She presented with weakness and syncope in the setting of marginal blood pressure and sinus bradycardia in the 50s She had dry oral mucosa and low sodium indicating dehydration. CVA ruled out Brain MRI - no acute CVA 09/26 - Received contact number from for Dimitris Johnsonager ([phone]) pt's nephew. He resides in [place]. He is willing to help with decision making. He was updated on her current and previous hospitalization. He understands cardiology is considering placing a pacemaker and is in agreement with the plan. 09/27 s/p PPM placement w/ Dr. Pruitt Has remained stabled PM dressing changed by cardiology service PM function checked- appropriately functioning will need to f/u with [facility] [employer] [facility] on discharge Febrile neutropenia Likely due to Clozapine Patient started to spike fever since 10/13 and 10/14 Chest x-ray no acute finding Pacemaker incision site without sign of infection Blood culture07/05 from 10/14/2023 growing gram positive bacilli. Repeat blood cx negative Urinalysis not suggestive of infection Was put on empiric antibiotics(Vancomycin and meropenem) --> ID evaluated 10/18, reports no concern of infection. Will monitor off antibiotic per ID recom mendation.---> Remains afebrile Psychiatry evaluated; agree with holding clozapine. Can restart Zyprexa at 2.5 mg at bedtime if patient has psychiatric symptoms. Monitor for now. Patient cannot ever be started on clozapine as per psychiatry. NECK PAIN likely muscular Lidoderm Patch, Toradol PRN Resolved HEADACHE Possible migraine attack CT head no signs of acute process Imitrex as needed DIABETES TYPE 2 last a1c 5.9 05/2023 she has not been requiring sliding scale insulin Accu-Cheks and insulin d/c'd HYPERTENSION Chronic, stable Continue lisinopril HYPOTHYROIDISM TSH 2.2 continue levothyroxine BRAIN TUMOR S/P RESECTION SCHIZOPHRENIA Psychiatry evaluated, discontinue clozapine given low ANC/neutropenia. Continue to monitor for emergence of any psychiatric symptoms. May require alternative antipsychotics. It is recommended to trial olazapine 2.5mg at HS if symptoms recur but would reach out to psych prior to initiating if needed CONSTIPATION continue bowel regimen closely monitor, as pt has tendency for severe constipation (previous admission) DVT prophylaxis SQ Lovenox Dispo: CM following, guardianship paperwork in place, medically stable for di scharge to rehab once guardianship in place Please note the above document was generated using voice recognition software. It may contain grammatical, syntax or spelling errors. Any formal questions or concerns about the content, text or information contained within the body of this dictation should be directly addressed to the provider for clarification Admission and Anticipated Discharge Date Admission Date: September 25, 2023 Subjective Patient ambulating well inside her room with the help of the walker Not in significant distress. No significant events overnight Review of Systems Review of Systems: All systems reviewed & are unremarkable except as noted in Subjective Physical Exam Physical Exam: General- oriented x 2, not in distress, speaks in sentences with no effort or accessory muscle use Eyes- anicteric Neck- no JVD Lungs- clear breath sounds bilaterally Heart- normal rate, regular rhythm; no murmurs Pacemaker site: No bleeding or discharge Abdomen- normal bowel sounds, nondistended, soft, nontender Extremities- no pretibial edema, no calf tenderness Neuro- alert, oriented x 2; no new gross focal neurologic deficits Skin- warm & dry Results & Data Results & Data Vital Signs (Past 12 Hours) Vital Signs Temp Pulse Resp BP BP Pulse Ox O2 Del Method 10/26/23 15:16 37.0 C 62 16 117/71 100 Room Air 10/26/23 07:45 Room Air 10/26/23 07:28 36.3 C L 58 L 16 163/73 H 100 Room Air
[2023-10-26] MEDS ORDERED: GLUCAGON FOR INJ 1 MG VIAL SQ PRN (16:57)
[2023-10-26] MEDS ORDERED: GLUCOSE 10 TAB/TUBE PO PRN (16:57)
[2023-10-26] MEDS ORDERED: GLUCOSE 40% GEL 15 GM TUBE PO PRN (16:57)
[2023-10-26] MEDS ORDERED: CARBOHYDRATES FOR HYPOGLYCEMIA PO PRN (16:57)
[2023-10-26] MEDS ORDERED: DEXTROSE 50% 50 ML SYRINGE IV PRN (16:57)
[2023-10-26] MEDS: POTASSIUM CHLORIDE 10 MEQ TABCR PO SCH (19:33)
[2023-10-27] MEDS: LEVOTHYROXINE SODIUM 50 MCG TABLET PO SCH (05:14)
[2023-10-27] MEDS: ASPIRIN 81 MG CHEW PO SCH (08:04)
[2023-10-27] MEDS: FLUTICASONE PROPIONATE NA SPR 16 GM BTL SCH (08:05)
[2023-10-27] MEDS: ATORVASTATIN 20 MG TAB PO SCH (08:05)
[2023-10-27] MEDS: MAGNESIUM OXIDE 400 MG TAB PO SCH (08:07)
[2023-10-27] MEDS: PANTOprazole 40 MG TAB PO SCH (08:07)
--- NOTE | 2023-10-27 14:35 | Hospitalist Progress Note ---
Date of Service October 27, 2023 Assessment & Plan (1) Weakness: (2) Syncope: Plan: 73 yo female with history of diabetes type 2, hypertension, dyslipidemia, hypothyroidism, brain tumor s/p resection, schizophrenia, migraine, anemia, recurrent UTIs Presenting to the hospital after being discharged from [facility] on the day prior to admission. Patient noted to have hypotension, bradycardia for which antihypertensives were removed. WEAKNESS, SYNCOPE LIKELY SECONDARY TO ORTHOSTATIC HYPOTENSION,POSSIBLE UNDERLYING SICK SINUS SYNDROME Patient recently admitted to [facility] for pneumonia, respiratory failure s/p intubation, UTI, delirium, stercoral colitis from constipation (discharged 09/14/2023) And was observed to have bradycardia, metoprolol reduced in dose. While at [facility], patient noted to have borderline blood pressure and bradycardia. Amlodipine, lisinopril, metoprolol subsequently discontinued She was discharged from [facility] day prior admission She presented with weakness and syncope in the setting of marginal blood pressure and sinus bradycardia in the 50s She had dry oral mucosa and low sodium indicating dehydration. CVA ruled out Brain MRI - no acute CVA 09/26 - Received contact number from for Dimitris Johnsonager ([phone]) pt's nephew. He resides in [place]. He is willing to help with decision making. He was updated on her current and previous hospitalization. He understands cardiology is considering placing a pacemaker and is in agreement with the plan. 09/27 s/p PPM placement w/ Dr. Pruitt Has remained stabled PM dressing changed by cardiology service PM function checked- appropriately functioning will need to f/u with [facility] on discharge Febrile neutropenia Likely due to Clozapine Patient started to spike fever since 10/13 and 10/14 Chest x-ray no acute finding Pacemaker incision site without sign of infection Blood culture07/05 from 10/14/2023 growing gram positive bacilli. Repeat blood cx negative Urinalysis not suggestive of infection Was put on empiric antibiotics(Vancomycin and meropenem) --> ID evaluated 10/18, reports no concern of infection. Will monitor off antibiotic per ID recom mendation.---> Remains afebrile Psychiatry evaluated; agree with holding clozapine. Can restart Zyprexa at 2.5 mg at bedtime if patient has psychiatric symptoms. Monitor for now. Patient cannot ever be started on clozapine as per psychiatry. NECK PAIN likely muscular Lidoderm Patch, Toradol PRN Resolved HEADACHE Possible migraine attack CT head no signs of acute process Imitrex as needed DIABETES TYPE 2 last a1c 5.9 05/2023 she has not been requiring sliding scale insulin Accu-Cheks and insulin d/c'd HYPERTENSION Chronic, stable Continue lisinopril HYPOTHYROIDISM TSH 2.2 continue levothyroxine BRAIN TUMOR S/P RESECTION SCHIZOPHRENIA Psychiatry evaluated, discontinue clozapine given low ANC/neutropenia. Continue to monitor for emergence of any psychiatric symptoms. May require alternative antipsychotics. It is recommended to trial olazapine 2.5mg at HS if symptoms recur but would reach out to psych prior to initiating if needed CONSTIPATION continue bowel regimen closely monitor, as pt has tendency for severe constipation (previous admission) DVT prophylaxis SQ Lovenox Dispo: CM following, guardianship paperwork in place, medically stable for di scharge to rehab once guardianship in place Please note the above document was generated using voice recognition software. It may contain grammatical, syntax or spelling errors. Any formal questions or concerns about the content, text or information contained within the body of this dictation should be directly addressed to the provider for clarification Admission and Anticipated Discharge Date Admission Date: September 25, 2023 Subjective Patient seen and examined at bedside. Comfortable; not in distress. Denies fever, chills, chest pain, shortness of breath, abdominal pain or urinary symptoms. No significant overnight events Physical Exam Physical Exam: General- oriented x 2, not in distress, speaks in sentences with no effort or accessory muscle use Eyes- anicteric Neck- no JVD Lungs- clear breath sounds bilaterally Heart- normal rate, regular rhythm; no murmurs Pacemaker site: No bleeding or discharge Abdomen- normal bowel sounds, nondistended, soft, nontender Extremities- no pretibial edema, no calf tenderness Neuro- alert, oriented x 2; no new gross focal neurologic deficits Skin- warm & dry Results & Data Results & Data Vital Signs (Past 12 Hours) Vital Signs Temp Pulse Resp BP Pulse Ox O2 Del Method 10/27/23 08:25 36.9 C 60 16 133/74 100 Room Air 10/27/23 07:50 Room Air
--- NOTE | 2023-10-28 11:13 | Hospitalist Progress Note ---
Date of Service October 28, 2023 Assessment & Plan (1) Weakness: (2) Syncope: Plan: 73 yo female with history of diabetes type 2, hypertension, dyslipidemia, hypothyroidism, brain tumor s/p resection, schizophrenia, migraine, anemia, recurrent UTIs Presenting to the hospital after being discharged from [facility] on the day prior to admission. Patient noted to have hypotension, bradycardia for which antihypertensives were removed. WEAKNESS, SYNCOPE LIKELY SECONDARY TO ORTHOSTATIC HYPOTENSION,POSSIBLE UNDERLYING SICK SINUS SYNDROME Patient recently admitted to [facility] for pneumonia, respiratory failure s/p intubation, UTI, delirium, stercoral colitis from constipation (discharged 09/14/2023) And was observed to have bradycardia, metoprolol reduced in dose. While at [facility], patient noted to have borderline blood pressure and bradycardia. Amlodipine, lisinopril, metoprolol subsequently discontinued She was discharged from [facility] day prior admission She presented with weakness and syncope in the setting of marginal blood pressure and sinus bradycardia in the 50s She had dry oral mucosa and low sodium indicating dehydration. CVA ruled out Brain MRI - no acute CVA 09/26 - Received contact number from for Dimitris Johnsonager ([phone]) pt's nephew. He resides in [place]. He is willing to help with decision making. He was updated on her current and previous hospitalization. He understands cardiology is considering placing a pacemaker and is in agreement with the plan. 09/27 s/p PPM placement w/ Dr. Pruitt Has remained stabled PM dressing changed by cardiology service PM function checked- appropriately functioning will need to f/u with [facility] on discharge Febrile neutropeniaresolved Likely due to Clozapine Patient started to spike fever since 10/13 and 10/14 Chest x-ray no acute finding Pacemaker incision site without sign of infection Blood culture07/05 from 10/14/2023 growing gram positive bacilli. Repeat blood cx negative Urinalysis not suggestive of infection Was put on empiric antibiotics(Vancomycin and meropenem) --> ID evaluated 10/18, reports no concern of infection. Will monitor off antibiotic per ID recommendation.---> Remains afebrile Psychiatry evaluated; agree with holding clozapine. Can restart Zyprexa at 2.5 mg at bedtime if patient has psychiatric symptoms. Monitor for now. Patient cannot ever be started on clozapine as per psychiatry. Abdominal pain; patient reports lower abdominal discomfort. Obtain urinalysis. Continue bowel regimen. NECK PAIN likely muscular Lidoderm Patch, Toradol PRN Resolved HEADACHE Possible migraine attack CT head no signs of acute process Imitrex as needed DIABETES TYPE 2 last a1c 5.9 05/2023 she has not been requiring sliding scale insulin Accu-Cheks and insulin d/c'd HYPERTENSION Chronic, stable Continue lisinopril HYPOTHYROIDISM TSH 2.2 continue levothyroxine BRAIN TUMOR S/P RESECTION SCHIZOPHRENIA Psychiatry evaluated, discontinue clozapine given low ANC/neutropenia. Continue to monitor for emergence of any psychiatric symptoms. May require alternative antipsychotics. It is recommended to trial olazapine 2.5mg at HS if symptoms recur but would reach out to psych prior to initiating if needed CONSTIPATION continue bowel regimen closely monitor, as pt has tendency for severe constipation (previous admission) DVT prophylaxis SQ Lovenox Dispo: CM following, guardianship paperwork in place, medically stable for discharge to rehab once guardianship in place Please note the above document was generated using voice recognition software. It may contain grammatical, syntax or spelling errors. Any formal questions or concerns about the content, text or information contained within the body of this dictation should be directly addressed to the provider for clarification Admission and Anticipated Discharge Date Admission Date: September 25, 2023 Subjective Patient seen and examined at bedside. She reports mild abdominal pain in suprapubic region. Denying any urinary symptoms. Appears comfortable No significant events overnight Review of Systems Review of Systems: All systems reviewed & are unremarkable except as noted in Subjective Physical Exam Physical Exam: General- oriented x 2, not in distress, speaks in sentences with no effort or accessory muscle use Eyes- anicteric Neck- no JVD Lungs- clear breath sounds bilaterally Heart- normal rate, regular rhythm; no murmurs Pacemaker site: No bleeding or discharge Abdomen- normal bowel sounds, nondistended, soft, nontender Extremities- no pretibial edema, no calf tenderness Neuro- alert, oriented x 2; no new gross focal neurologic deficits Skin- warm & dry Results & Data Results & Data Vital Signs (Past 12 Hours) Vital Signs Temp Pulse Resp BP Pulse Ox O2 Del Method 10/28/23 07:58 36.7 C 70 16 137/81 100 Room Air 10/28/23 07:40 Room Air
[2023-10-28] MEDS: POLYETHYLENE (MIRALAX) 17 GM PACK PO SCH (11:37)
[2023-10-28] MEDS: MAGNESIUM HYDROXIDE SUSP 30 ML UDC PO ONE (11:58)
[2023-10-28 18:04] LABS: Appearance Urine Cloudy (Clear); Bacteria Urine Automated 3+ (None Seen); Bilirubin Urine Negative (Negative); Blood Urine Negative (Negative); Cast Urine Automated 0-2 /lpf (0-2); Color Urine Yellow; Epithelial Cell Urine Auto 0-2 /hpf (0-2); Glucose Urine UA Negative (Negative); Ketones Urine 1+ (Negative); Leukocyte Esterase Urine Negative (Negative); Nitrite Urine Negative (Negative); Protein Urine Negative (Negative); Specific Gravity Urine 1.018 (1.000-1.030); Urobilinogen Urine Negative (Negative); WBC Urine Automated 0-5 /hpf (0-5); pH Urine 7.5 (4.5-7.5)
[2023-10-28 18:14] LABS: Amorphous Sediment Urine Present (None Prsent); RBC Urine Automated 0-2 /hpf (0-2)
[2023-10-29 07:24] LABS: Basophils # (auto) 0.02 K/uL (0.00-0.20); Basophils % (auto) 0.4 %; Hematocrit (blood only) 32.8 % (37.0-47.0); Hemoglobin 10.6 g/dl (12.0-16.0); Immature Granulocytes # (auto) 0.02 K/uL (0.01-0.20); Immature Granulocytes % (auto) 0.4 %; Lymphocytes # (auto) 1.91 K/uL (1.20-3.40); Lymphocytes % (auto) 37.3 %; Mean Corpuscular Hemoglobin 27.9 pg (25.0-34.0); Mean Corpuscular Hgb Conc 32.3 g/dL (32.0-36.0); Mean Corpuscular Volume 86.3 fL (80.0-100.0); Mean Platelet Volume 10.3 fL (9.4-12.4); Monocytes # (auto) 0.51 K/uL (0.11-0.59); Neutrophils # (auto) 2.66 K/uL (1.40-6.50); Neutrophils % (auto) 51.9 %; Platelet Count 198 K/uL (130-400); RDW Coefficient of Variation 14.2 % (11.5-14.5); RDW Standard Deviation 44.8 fL (36.4-46.3); White Blood Count 5.12 K/ul (4.8-10.8)
[2023-10-29 07:44] LABS: BUN Creatinine Ratio 45.5 (10-20); Est GFR (African American) 115.3 ml/min; Est GFR (Non-African American) 99.4 ml/min; Potassium 3.9 mmol/L (3.5-5.1)
[2023-10-29] MEDS: MEROPENEM 500 MG in SYRINGE 0 ML IV SCH (10:08)
--- NOTE | 2023-10-29 14:23 | Hospitalist Progress Note ---
Date of Service October 29, 2023 Assessment & Plan (1) Weakness: (2) Syncope: Plan: 73 yo female with history of diabetes type 2, hypertension, dyslipidemia, hypothyroidism, brain tumor s/p resection, schizophrenia, migraine, anemia, recurrent UTIs Presenting to the hospital after being discharged from [facility] on the day prior to admission. Patient noted to have hypotension, bradycardia for which antihypertensives were removed. WEAKNESS, SYNCOPE LIKELY SECONDARY TO ORTHOSTATIC HYPOTENSION,POSSIBLE UNDERLYING SICK SINUS SYNDROME Patient recently admitted to [facility] for pneumonia, respiratory failure s/p intubation, UTI, delirium, stercoral colitis from constipation (discharged 09/14/2023) And was observed to have bradycardia, metoprolol reduced in dose. While at [facility], patient noted to have borderline blood pressure and bradycardia. Amlodipine, lisinopril, metoprolol subsequently discontinued She was discharged from [facility] day prior admission She presented with weakness and syncope in the setting of marginal blood pressure and sinus bradycardia in the 50s She had dry oral mucosa and low sodium indicating dehydration. CVA ruled out Brain MRI - no acute CVA 09/26 - Received contact number from for Dimitris Johnsonager ([phone]) pt's nephew. He resides in [place]. He is willing to help with decision making. He was updated on her current and previous hospitalization. He understands cardiology is considering placing a pacemaker and is in agreement with the plan. 09/27 s/p PPM placement w/ Dr. Pruitt Has remained stabled PM dressing changed by cardiology service PM function checked- appropriately functioning will need to f/u with Parking Lot Spotter on discharge Febrile neutropeniaresolved Likely due to Clozapine Patient started to spike fever since 10/13 and 10/14 Chest x-ray no acute finding Pacemaker incision site without sign of infection Blood culture07/05 from 10/14/2023 growing gram positive bacilli. Repeat blood cx negative Urinalysis not suggestive of infection Was put on empiric antibiotics(Vancomycin and meropenem) --> ID evaluated 10/18, reports no concern of infection. Will monitor off antibiotic per ID recommendation.---> Remains afebrile Psychiatry evaluated; agree with holding clozapine. Can restart Zyprexa at 2.5 mg at bedtime if patient has psychiatric symptoms. Monitor for now. Patient cannot ever be started on clozapine as per psychiatry. Possible UTI Patient reported lower abdominal pain on October 28, 2023 Urinalysis suggestive of infection On meropenem Will follow-up on final culture NECK PAIN likely muscular Lidoderm Patch, Toradol PRN Resolved HEADACHE Possible migraine attack CT head no signs of acute process Imitrex as needed DIABETES TYPE 2 last a1c 5.9 05/2023 she has not been requiring sliding scale insulin Accu-Cheks and insulin d/c'd HYPERTENSION Chronic, stable Continue lisinopril HYPOTHYROIDISM TSH 2.2 continue levothyroxine BRAIN TUMOR S/P RESECTION SCHIZOPHRENIA Psychiatry evaluated, discontinue clozapine given low ANC/neutropenia. Continue to monitor for emergence of any psychiatric symptoms. May require alternative antipsychotics. It is recommended to trial olazapine 2.5mg at HS if symptoms recur but would reach out to psych prior to initiating if needed CONSTIPATION continue bowel regimen closely monitor, as pt has tendency for severe constipation (previous admission) DVT prophylaxis SQ Lovenox Dispo: CM following, guardianship paperwork in place, medically stable for discharge to rehab once guardianship in place Please note the above document was generated using voice recognition software. It may contain grammatical, syntax or spelling errors. Any formal questions or concerns about the content, text or information contained within the body of this dictation should be directly addressed to the provider for clarification Admission and Anticipated Discharge Date Admission Date: September 25, 2023 Subjective patient seen and examined at bedside. Comfortable; not in distress. Denies fever, chills, chest pain, shortness of breath, abdominal pain or urinary symptoms. No significant overnight events Review of Systems Review of Systems: All systems reviewed & are unremarkable except as noted in Subjective Physical Exam Physical Exam: General- oriented x 2, not in distress, speaks in sentences with no effort or accessory muscle use Eyes- anicteric Neck- no JVD Lungs- clear breath sounds bilaterally Heart- normal rate, regular rhythm; no murmurs Pacemaker site: No bleeding or discharge Abdomen- normal bowel sounds, nondistended, soft, nontender Extremities- no pretibial edema, no calf tenderness Neuro- alert, oriented x 2; no new gross focal neurologic deficits Skin- warm & dry Results & Data Results & Data Vital Signs (Past 12 Hours) Vital Signs Temp Pulse Resp BP Pulse Ox O2 Del Method 10/29/23 08:32 Room Air 10/29/23 07:43 36.6 C 61 16 158/80 H 100 Room Air
--- NOTE | 2023-10-30 15:17 | Hospitalist Progress Note ---
Date of Service October 30, 2023 Assessment & Plan (1) Weakness: (2) Syncope: Plan: 73 yo female with history of diabetes type 2, hypertension, dyslipidemia, hypothyroidism, brain tumor s/p resection, schizophrenia, migraine, anemia, recurrent UTIs Presenting to the hospital after being discharged from [facility] on the day prior to admission. Patient noted to have hypotension, bradycardia for which antihypertensives were removed. WEAKNESS, SYNCOPE LIKELY SECONDARY TO ORTHOSTATIC HYPOTENSION,POSSIBLE UNDERLYING SICK SINUS SYNDROME Patient recently admitted to [facility] for pneumonia, respiratory failure s/p intubation, UTI, delirium, stercoral colitis from constipation (discharged 09/14/2023) And was observed to have bradycardia, metoprolol reduced in dose. While at [facility], patient noted to have borderline blood pressure and bradycardia. Amlodipine, lisinopril, metoprolol subsequently discontinued She was discharged from [facility] day prior admission She presented with weakness and syncope in the setting of marginal blood pressure and sinus bradycardia in the 50s She had dry oral mucosa and low sodium indicating dehydration. CVA ruled out Brain MRI - no acute CVA 09/26 - Received contact number from for Dimitris Johnsonager ([phone]) pt's nephew. He resides in [place]. He is willing to help with decision making. He was updated on her current and previous hospitalization. He understands cardiology is considering placing a pacemaker and is in agreement with the plan. 09/27 s/p PPM placement w/ Dr. Pruitt Has remained stabled PM dressing changed by cardiology service PM function checked- appropriately functioning will need to f/u with Retail Field Merchandiser on discharge Febrile neutropeniaresolved Likely due to Clozapine Patient started to spike fever since 10/13 and 10/14 Chest x-ray no acute finding Pacemaker incision site without sign of infection Blood culture07/05 from 10/14/2023 growing gram positive bacilli. Repeat blood cx negative Urinalysis not suggestive of infection Was put on empiric antibiotics(Vancomycin and meropenem) --> ID evaluated 10/18, reports no concern of infection. Will monitor off antibiotic per ID recommendation.---> Remains afebrile Psychiatry evaluated; agree with holding clozapine. Can restart Zyprexa at 2.5 mg at bedtime if patient has psychiatric symptoms. Monitor for now. Patient cannot ever be started on clozapine as per psychiatry. Possible UTI, rule out Patient reported lower abdominal pain on October 28, 2023 Urinalysis suggestive of infection Was initially placed on meropenem Urine culture3 types of organism; all moderate counts. Antibiotic discontinued NECK PAIN likely muscular Lidoderm Patch, Toradol PRN Resolved HEADACHE Possible migraine attack CT head no signs of acute process Imitrex as needed DIABETES TYPE 2 last a1c 5.9 05/2023 she has not been requiring sliding scale insulin Accu-Cheks and insulin d/c'd HYPERTENSION Chronic, stable Continue lisinopril HYPOTHYROIDISM TSH 2.2 continue levothyroxine BRAIN TUMOR S/P RESECTION SCHIZOPHRENIA Psychiatry evaluated, discontinue clozapine given low ANC/neutropenia. Continue to monitor for emergence of any psychiatric symptoms. May require alternative antipsychotics. It is recommended to trial olazapine 2.5mg at HS if symptoms recur but would reach out to psych prior to initiating if needed CONSTIPATION continue bowel regimen closely monitor, as pt has tendency for severe constipation (previous admission) DVT prophylaxis SQ Lovenox Dispo: CM following, guardianship paperwork in place, medically stable for discharge to rehab once guardianship in place Please note the above document was generated using voice recognition software. It may contain grammatical, syntax or spelling errors. Any formal questions or concerns about the content, text or information contained within the body of this dictation should be directly addressed to the provider for clarification Admission and Anticipated Discharge Date Admission Date: September 25, 2023 Subjective Patient seen and examined at bedside. She is comfortable; not in distress. She denies fever, chills, chest pain or abdominal pain. Review of Systems Review of Systems: All systems reviewed & are unremarkable except as noted in Subjective Physical Exam Physical Exam: General- oriented x 2, not in distress, speaks in sentences with no effort or accessory muscle use Eyes- anicteric Neck- no JVD Lungs- clear breath sounds bilaterally Heart- normal rate, regular rhythm; no murmurs Pacemaker site: No bleeding or discharge Abdomen- normal bowel sounds, nondistended, soft, nontender Extremities- no pretibial edema, no calf tenderness Neuro- alert, oriented x 2; no new gross focal neurologic deficits Skin- warm & dry Results & Data Results & Data Vital Signs (Past 12 Hours) Vital Signs Temp Pulse Resp BP Pulse Ox O2 Del Method 10/30/23 08:03 Room Air 10/30/23 07:30 36.5 C 60 16 134/79 98 Room Air
--- NOTE | 2023-10-31 15:30 | Hospitalist Progress Note ---
Date of Service October 31, 2023 Assessment & Plan (1) Weakness: (2) Syncope: Plan: 73 yo female with history of diabetes type 2, hypertension, dyslipidemia, hypothyroidism, brain tumor s/p resection, schizophrenia, migraine, anemia, recurrent UTIs Presenting to the hospital after being discharged from [facility] on the day prior to admission. Patient noted to have hypotension, bradycardia for which antihypertensives were removed. WEAKNESS, SYNCOPE LIKELY SECONDARY TO ORTHOSTATIC HYPOTENSION,POSSIBLE UNDERLYING SICK SINUS SYNDROME Patient recently admitted to [facility] for pneumonia, respiratory failure s/p intubation, UTI, delirium, stercoral colitis from constipation (discharged 09/14/2023) And was observed to have bradycardia, metoprolol reduced in dose. While at the [facility], patient noted to have borderline blood pressure and bradycardia. Amlodipine, lisinopril, metoprolol subsequently discontinued She was discharged from the [facility] day prior admission She presented with weakness and syncope in the setting of marginal blood pressure and sinus bradycardia in the 50s She had dry oral mucosa and low sodium indicating dehydration. CVA ruled out Brain MRI - no acute CVA 09/26 - Received contact number from for Dimitris Johnsonager ([phone]) pt's nephew. He resides in [place]. He is willing to help with decision making. He was updated on her current and previous hospitalization. He understands cardiology is considering placing a pacemaker and is in agreement with the plan. 09/27 s/p PPM placement w/ Dr. Pruitt Has remained stabled PM dressing changed by cardiology service PM function checked- appropriately functioning will need to f/u with Rn On Site on discharge Febrile neutropeniaresolved Likely due to Clozapine Patient started to spike fever since 10/13 and 10/14 Chest x-ray no acute finding Pacemaker incision site without sign of infection Blood culture07/05 from 10/14/2023 growing gram positive bacilli. Repeat blood cx negative Urinalysis not suggestive of infection Was put on empiric antibiotics(Vancomycin and meropenem) --> ID evaluated 10/18, reports no concern of infection. Will monitor off antibiotic per ID recommendation.---> Remains afebrile Psychiatry evaluated; agree with holding clozapine. Can restart Zyprexa at 2.5 mg at bedtime if patient has psychiatric symptoms. Monitor for now. Patient cannot ever be started on clozapine as per psychiatry. Possible UTI, rule out Patient reported lower abdominal pain on October 28, 2023 Urinalysis suggestive of infection Was initially placed on meropenem Urine culture3 types of organism; all moderate counts. Antibiotic discontinued NECK PAIN likely muscular Lidoderm Patch, Toradol PRN Resolved HEADACHE Possible migraine attack CT head no signs of acute process Imitrex as needed DIABETES TYPE 2 last a1c 5.9 05/2023 she has not been requiring sliding scale insulin Accu-Cheks and insulin d/c'd HYPERTENSION Chronic, stable Continue lisinopril HYPOTHYROIDISM TSH 2.2 continue levothyroxine BRAIN TUMOR S/P RESECTION SCHIZOPHRENIA Psychiatry evaluated, discontinue clozapine given low ANC/neutropenia. Continue to monitor for emergence of any psychiatric symptoms. May require alternative antipsychotics. It is recommended to trial olazapine 2.5mg at HS if symptoms recur but would reach out to psych prior to initiating if needed CONSTIPATION continue bowel regimen closely monitor, as pt has tendency for severe constipation (previous admission) DVT prophylaxis SQ Lovenox Dispo: CM following, guardianship paperwork in place, medically stable for discharge to rehab once guardianship in place Please note the above document was generated using voice recognition software. It may contain grammatical, syntax or spelling errors. Any formal questions or concerns about the content, text or information contained within the body of this dictation should be directly addressed to the provider for clarification Admission and Anticipated Discharge Date Admission Date: September 25, 2023 Subjective Patient seen and examined at bedside. Comfortable; not in distress. Denies fever, chills, chest pain, shortness of breath, abdominal pain or urinary symptoms. No significant overnight events Review of Systems Review of Systems: All systems reviewed & are unremarkable except as noted in Subjective Physical Exam Physical Exam: General- oriented x 2, not in distress, speaks in sentences with no effort or accessory muscle use Eyes- anicteric Neck- no JVD Lungs- clear breath sounds bilaterally Heart- normal rate, regular rhythm; no murmurs Pacemaker site: No bleeding or discharge Abdomen- normal bowel sounds, nondistended, soft, nontender Extremities- no pretibial edema, no calf tenderness Neuro- alert, oriented x 2; no new gross focal neurologic deficits Skin- warm & dry Results & Data Results & Data Vital Signs (Past 12 Hours) Vital Signs Temp Pulse Resp BP Pulse Ox O2 Del Method 10/31/23 13:53 107/66 10/31/23 11:47 36.5 C 60 16 96/61 L 98 Room Air 10/31/23 08:51 Room Air 10/31/23 07:27 36.3 C L 63 18 161/82 H 100 Room Air
[2023-10-31] MEDS: POLYETHYLENE (MIRALAX) 17 GM PACK PO SCH (21:34)
[2023-11-01] MEDS: MAGNESIUM HYDROXIDE SUSP 30 ML UDC PO SCH (09:43)
--- NOTE | 2023-11-01 13:53 | Hospitalist Progress Note ---
Date of Service November 01, 2023 Assessment & Plan (1) Weakness: (2) Syncope: Plan: 73 yo female with history of diabetes type 2, hypertension, dyslipidemia, hypothyroidism, brain tumor s/p resection, schizophrenia, migraine, anemia, recurrent UTIs Presenting to the hospital after being discharged from [facility] on the day prior to admission. Patient noted to have hypotension, bradycardia for which antihypertensives were removed. WEAKNESS, SYNCOPE LIKELY SECONDARY TO ORTHOSTATIC HYPOTENSION,POSSIBLE UNDERLYING SICK SINUS SYNDROME Patient recently admitted to [facility] for pneumonia, respiratory failure s/p intubation, UTI, delirium, stercoral colitis from constipation (discharged 09/14/2023) And was observed to have bradycardia, metoprolol reduced in dose. While at [facility], patient noted to have borderline blood pressure and bradycardia. Amlodipine, lisinopril, metoprolol subsequently discontinued She was discharged from [facility] day prior admission She presented with weakness and syncope in the setting of marginal blood pressure and sinus bradycardia in the 50s She had dry oral mucosa and low sodium indicating dehydration. CVA ruled out Brain MRI - no acute CVA 09/26 - Received contact number from for Dimitris Johnsonager ([phone]) pt's nephew. He resides in [place]. He is willing to help with decision making. He was updated on her current and previous hospitalization. He understands cardiology is considering placing a pacemaker and is in agreement with the plan. 09/27 s/p PPM placement w/ Dr. Pruitt Has remained stabled PM dressing changed by cardiology service PM function checked- appropriately functioning will need to f/u with Tdp Displays Analyst on discharge Febrile neutropeniaresolved Likely due to Clozapine Patient started to spike fever since 10/13 and 10/14 Chest x-ray no acute finding Pacemaker incision site without sign of infection Blood culture07/05 from 10/14/2023 growing gram positive bacilli. Repeat blood cx negative Urinalysis not suggestive of infection Was put on empiric antibiotics(Vancomycin and meropenem) --> ID evaluated 10/18, reports no concern of infection. Will monitor off antibiotic per ID recommendation.---> Remains afebrile Psychiatry evaluated; agree with holding clozapine. Can restart Zyprexa at 2.5 mg at bedtime if patient has psychiatric symptoms. Monitor for now. Patient cannot ever be started on clozapine as per psychiatry. Possible UTI, rule out Patient reported lower abdominal pain on October 28, 2023 Urinalysis suggestive of infection Was initially placed on meropenem Urine culture3 types of organism; all moderate counts. Antibiotic discontinued NECK PAIN likely muscular Lidoderm Patch, Toradol PRN Resolved HEADACHE Possible migraine attack CT head no signs of acute process Imitrex as needed DIABETES TYPE 2 last a1c 5.9 05/2023 she has not been requiring sliding scale insulin Accu-Cheks and insulin d/c'd HYPERTENSION Chronic, stable Continue lisinopril HYPOTHYROIDISM TSH 2.2 continue levothyroxine BRAIN TUMOR S/P RESECTION SCHIZOPHRENIA Psychiatry evaluated, discontinue clozapine given low ANC/neutropenia. Continue to monitor for emergence of any psychiatric symptoms. May require alternative antipsychotics. It is recommended to trial olazapine 2.5mg at HS if symptoms recur but would reach out to psych prior to initiating if needed CONSTIPATION continue bowel regimen closely monitor, as pt has tendency for severe constipation (previous admission) DVT prophylaxis SQ Lovenox Dispo: CM following, guardianship paperwork in place, medically stable for discharge to rehab once guardianship in place Please note the above document was generated using voice recognition software. It may contain grammatical, syntax or spelling errors. Any formal questions or concerns about the content, text or information contained within the body of this dictation should be directly addressed to the provider for clarification Admission and Anticipated Discharge Date Admission Date: September 25, 2023 Subjective Patient seen and examined at bedside. Comfortable; not in distress. Denies fever, chills, chest pain, shortness of breath, abdominal pain or urinary symptoms. No significant overnight events Review of Systems Review of Systems: All systems reviewed & are unremarkable except as noted in Subjective Physical Exam Physical Exam: General- oriented x 2, not in distress, speaks in sentences with no effort or accessory muscle use Eyes- anicteric Neck- no JVD Lungs- clear breath sounds bilaterally Heart- normal rate, regular rhythm; no murmurs Pacemaker site: No bleeding or discharge Abdomen- normal bowel sounds, nondistended, soft, nontender Extremities- no pretibial edema, no calf tenderness Neuro- alert, oriented x 2; no new gross focal neurologic deficits Skin- warm & dry Results & Data Results & Data Vital Signs (Past 12 Hours) Vital Signs Temp Pulse Resp BP Pulse Ox O2 Del Method 11/01/23 07:50 Room Air 11/01/23 07:12 36.5 C 61 16 163/80 H 99 Room Air
--- NOTE | 2023-11-02 16:45 | Hospitalist Progress Note ---
Date of Service November 02, 2023 Assessment & Plan (1) Weakness: (2) Syncope: Plan: 73 yo female with history of diabetes type 2, hypertension, dyslipidemia, hypothyroidism, brain tumor s/p resection, schizophrenia, migraine, anemia, recurrent UTIs Presenting to the hospital after being discharged from [facility] on the day prior to admission. Patient noted to have hypotension, bradycardia for which antihypertensives were removed. WEAKNESS, SYNCOPE LIKELY SECONDARY TO ORTHOSTATIC HYPOTENSION,POSSIBLE UNDERLYING SICK SINUS SYNDROME Patient recently admitted to [facility] for pneumonia, respiratory failure s/p intubation, UTI, delirium, stercoral colitis from constipation (discharged 09/14/2023) And was observed to have bradycardia, metoprolol reduced in dose. While at [facility] rehab, patient noted to have borderline blood pressure and bradycardia. Amlodipine, lisinopril, metoprolol subsequently discontinued She was discharged from [facility] rehab day prior admission She presented with weakness and syncope in the setting of marginal blood pressure and sinus bradycardia in the 50s She had dry oral mucosa and low sodium indicating dehydration. CVA ruled out Brain MRI - no acute CVA 09/26 - Received contact number from for Dimitris Johnsonager ([phone]) pt's nephew. He resides in [place]. He is willing to help with decision making. He was updated on her current and previous hospitalization. He understands cardiology is considering placing a pacemaker and is in agreement with the plan. 09/27 s/p PPM placement w/ Dr. Pruitt Has remained stabled PM dressing changed by cardiology service PM function checked- appropriately functioning will need to f/u with [employer] Hyperion Consultant on discharge Febrile neutropeniaresolved Likely due to Clozapine Patient started to spike fever since 10/13 and 10/14 Chest x-ray no acute finding Pacemaker incision site without sign of infection Blood culture07/05 from 10/14/2023 growing gram positive bacilli. Repeat blood cx negative Urinalysis not suggestive of infection Was put on empiric antibiotics(Vancomycin and meropenem) --> ID evaluated 10/18, reports no concern of infection. Will monitor off antibiotic per ID recommendation.---> Remains afebrile Psychiatry evaluated; agree with holding clozapine. Can restart Zyprexa at 2.5 mg at bedtime if patient has psychiatric symptoms. Monitor for now. Patient cannot ever be started on clozapine as per psychiatry. Possible UTI, rule out Patient reported lower abdominal pain on October 28, 2023 Urinalysis suggestive of infection Was initially placed on meropenem Urine culture3 types of organism; all moderate counts. Antibiotic discontinued NECK PAIN likely muscular Lidoderm Patch, Toradol PRN Resolved HEADACHE Possible migraine attack CT head no signs of acute process Imitrex as needed DIABETES TYPE 2 last a1c 5.9 05/2023 she has not been requiring sliding scale insulin Accu-Cheks and insulin d/c'd HYPERTENSION Chronic, stable Continue lisinopril HYPOTHYROIDISM TSH 2.2 continue levothyroxine BRAIN TUMOR S/P RESECTION SCHIZOPHRENIA Psychiatry evaluated, discontinue clozapine given low ANC/neutropenia. Continue to monitor for emergence of any psychiatric symptoms. May require alternative antipsychotics. It is recommended to trial olazapine 2.5mg at HS if symptoms recur but would reach out to psych prior to initiating if needed CONSTIPATION continue bowel regimen closely monitor, as pt has tendency for severe constipation (previous admission) DVT prophylaxis SQ Lovenox Dispo: CM following, guardianship paperwork in place, medically stable for discharge to rehab once guardianship in place Please note the above document was generated using voice recognition software. It may contain grammatical, syntax or spelling errors. Any formal questions or concerns about the content, text or information contained within the body of this dictation should be directly addressed to the provider for clarification Admission and Anticipated Discharge Date Admission Date: September 25, 2023 Subjective Patient seen and examined at bedside. Comfortable; not in distress. Denies fever, chills, chest pain, shortness of breath, abdominal pain or urinary symptoms. No significant overnight events Physical Exam Physical Exam: General-alert and awake, not in distress, speaks in sentences with no effort or accessory muscle use Eyes- anicteric Neck- no JVD, no neck stiffness. Lungs- clear breath sounds bilaterally Heart- normal rate, regular rhythm; no murmurs Pacemaker site: No bleeding or discharge Abdomen- normal bowel sounds, nondistended, soft, nontender Extremities- no pretibial edema, no calf tenderness Neuro- alert, oriented x 2; no new gross focal neurologic deficits Skin- warm & dry Results & Data Results & Data Vital Signs (Past 12 Hours) Vital Signs Temp Pulse Resp BP Pulse Ox O2 Del Method 11/02/23 15:10 36.8 C 58 L 16 109/61 94 Room Air 11/02/23 07:50 Room Air 11/02/23 07:20 36.7 C 61 16 159/76 H 100 Room Air
--- NOTE | 2023-11-03 16:38 | Hospitalist Progress Note ---
Date of Service November 03, 2023 Assessment & Plan (1) Weakness: (2) Syncope: Plan: 73 yo female with history of diabetes type 2, hypertension, dyslipidemia, hypothyroidism, brain tumor s/p resection, schizophrenia, migraine, anemia, recurrent UTIs Presenting to the hospital after being discharged from [facility] on the day prior to admission. Patient noted to have hypotension, bradycardia for which antihypertensives were removed. WEAKNESS, SYNCOPE LIKELY SECONDARY TO ORTHOSTATIC HYPOTENSION,POSSIBLE UNDERLYING SICK SINUS SYNDROME Patient recently admitted to [facility] for pneumonia, respiratory failure s/p intubation, UTI, delirium, stercoral colitis from constipation (discharged 09/14/2023) And was observed to have bradycardia, metoprolol reduced in dose. While at [facility] rehab, patient noted to have borderline blood pressure and bradycardia. Amlodipine, lisinopril, metoprolol subsequently discontinued She was discharged from [facility] rehab day prior admission She presented with weakness and syncope in the setting of marginal blood pressure and sinus bradycardia in the 50s She had dry oral mucosa and low sodium indicating dehydration. CVA ruled out Brain MRI - no acute CVA 09/26 - Received contact number from for Dimitris Johnsonager ([phone]) pt's nephew. He resides in [place]. He is willing to help with decision making. He was updated on her current and previous hospitalization. He understands cardiology is considering placing a pacemaker and is in agreement with the plan. 09/27 s/p PPM placement w/ Dr. Pruitt Has remained stabled PM dressing changed by cardiology service PM function checked- appropriately functioning will need to f/u with Gas Engine Performance Engineer on discharge Febrile neutropeniaresolved Likely due to Clozapine Patient started to spike fever since 10/13 and 10/14 Chest x-ray no acute finding Pacemaker incision site without sign of infection Blood culture07/05 from 10/14/2023 growing gram positive bacilli. Repeat blood cx negative Urinalysis not suggestive of infection Was put on empiric antibiotics(Vancomycin and meropenem) --> ID evaluated 10/18, reports no concern of infection. Will monitor off antibiotic per ID recommendation.---> Remains afebrile Psychiatry evaluated; agree with holding clozapine. Can restart Zyprexa at 2.5 mg at bedtime if patient has psychiatric symptoms. Monitor for now. Patient cannot ever be started on clozapine as per psychiatry. Possible UTI, rule out Patient reported lower abdominal pain on October 28, 2023 Urinalysis suggestive of infection Was initially placed on meropenem Urine culture3 types of organism; all moderate counts. Antibiotic discontinued NECK PAIN likely muscular Lidoderm Patch, Toradol PRN Resolved HEADACHE Possible migraine attack CT head no signs of acute process Imitrex as needed DIABETES TYPE 2 last a1c 5.9 05/2023 she has not been requiring sliding scale insulin Accu-Cheks and insulin d/c'd HYPERTENSION Chronic, stable Continue lisinopril HYPOTHYROIDISM TSH 2.2 continue levothyroxine BRAIN TUMOR S/P RESECTION SCHIZOPHRENIA Psychiatry evaluated, discontinue clozapine given low ANC/neutropenia. Continue to monitor for emergence of any psychiatric symptoms. May require alternative antipsychotics. It is recommended to trial olazapine 2.5mg at HS if symptoms recur but would reach out to psych prior to initiating if needed CONSTIPATION continue bowel regimen closely monitor, as pt has tendency for severe constipation (previous admission) DVT prophylaxis SQ Lovenox Dispo: CM following, guardianship paperwork in place, medically stable for discharge to rehab once guardianship in place Please note the above document was generated using voice recognition software. It may contain grammatical, syntax or spelling errors. Any formal questions or concerns about the content, text or information contained within the body of this dictation should be directly addressed to the provider for clarification Admission and Anticipated Discharge Date Admission Date: September 25, 2023 Subjective Patient seen and examined at bedside. Comfortable; not in distress. Denies fever, chills, chest pain, shortness of breath, abdominal pain or urinary symptoms. No significant overnight events Physical Exam Physical Exam: General-alert and awake, not in distress, speaks in sentences with no effort or accessory muscle use Eyes- anicteric Neck- no JVD, no neck stiffness. Lungs- clear breath sounds bilaterally Heart- normal rate, regular rhythm; no murmurs Pacemaker site: No bleeding or discharge Abdomen- normal bowel sounds, nondistended, soft, nontender Extremities- no pretibial edema, no calf tenderness Neuro- alert, oriented x 2; no new gross focal neurologic deficits Skin- warm & dry Results & Data Results & Data Vital Signs (Past 12 Hours) Vital Signs Temp Pulse Resp BP Pulse Ox O2 Del Method 11/03/23 15:21 36.8 C 59 L 18 129/73 100 Room Air 11/03/23 07:13 72 18 152/80 H 97 Room Air
--- NOTE | 2023-11-04 16:17 | Hospitalist Progress Note ---
Date of Service November 04, 2023 Assessment & Plan (1) Weakness: (2) Syncope: Plan: 73 yo female with history of diabetes type 2, hypertension, dyslipidemia, hypothyroidism, brain tumor s/p resection, schizophrenia, migraine, anemia, recurrent UTIs Presenting to the hospital after being discharged from [facility] on the day prior to admission. Patient noted to have hypotension, bradycardia for which antihypertensives were removed. WEAKNESS, SYNCOPE LIKELY SECONDARY TO ORTHOSTATIC HYPOTENSION,POSSIBLE UNDERLYING SICK SINUS SYNDROME Patient recently admitted to [facility] for pneumonia, respiratory failure s/p intubation, UTI, delirium, stercoral colitis from constipation (discharged 09/14/2023) And was observed to have bradycardia, metoprolol reduced in dose. While at [facility] rehab, patient noted to have borderline blood pressure and bradycardia. Amlodipine, lisinopril, metoprolol subsequently discontinued She was discharged from [facility] rehab day prior admission She presented with weakness and syncope in the setting of marginal blood pressure and sinus bradycardia in the 50s She had dry oral mucosa and low sodium indicating dehydration. CVA ruled out Brain MRI - no acute CVA 09/26 - Received contact number from for Dimitris Johnsonager ([phone]) pt's nephew. He resides in [place]. He is willing to help with decision making. He was updated on her current and previous hospitalization. He understands cardiology is considering placing a pacemaker and is in agreement with the plan. 09/27 s/p PPM placement w/ Dr. Pruitt Has remained stabled PM dressing changed by cardiology service PM function checked- appropriately functioning will need to f/u with Splitting Machine Operator Helper on discharge Febrile neutropeniaresolved Likely due to Clozapine Patient started to spike fever since 10/13 and 10/14 Chest x-ray no acute finding Pacemaker incision site without sign of infection Blood culture07/05 from 10/14/2023 growing gram positive bacilli. Repeat blood cx negative Urinalysis not suggestive of infection Was put on empiric antibiotics(Vancomycin and meropenem) --> ID evaluated 10/18, reports no concern of infection. Will monitor off antibiotic per ID recommendation.---> Remains afebrile Psychiatry evaluated; agree with holding clozapine. Can restart Zyprexa at 2.5 mg at bedtime if patient has psychiatric symptoms. Monitor for now. Patient cannot ever be started on clozapine as per psychiatry. Possible UTI, rule out Patient reported lower abdominal pain on October 28, 2023 Urinalysis suggestive of infection Was initially placed on meropenem Urine culture3 types of organism; all moderate counts. Antibiotic discontinued NECK PAIN likely muscular Lidoderm Patch, Toradol PRN Resolved HEADACHE Possible migraine attack CT head no signs of acute process Imitrex as needed DIABETES TYPE 2 last a1c 5.9 05/2023 she has not been requiring sliding scale insulin Accu-Cheks and insulin d/c'd HYPERTENSION Chronic, stable Continue lisinopril HYPOTHYROIDISM TSH 2.2 continue levothyroxine BRAIN TUMOR S/P RESECTION SCHIZOPHRENIA Psychiatry evaluated, discontinue clozapine given low ANC/neutropenia. Continue to monitor for emergence of any psychiatric symptoms. May require alternative antipsychotics. It is recommended to trial olazapine 2.5mg at HS if symptoms recur but would reach out to psych prior to initiating if needed CONSTIPATION continue bowel regimen closely monitor, as pt has tendency for severe constipation (previous admission) DVT prophylaxis SQ Lovenox Dispo: CM following, guardianship paperwork in place, medically stable for discharge to rehab once guardianship in place Please note the above document was generated using voice recognition software. It may contain grammatical, syntax or spelling errors. Any formal questions or concerns about the content, text or information contained within the body of this dictation should be directly addressed to the provider for clarification Admission and Anticipated Discharge Date Admission Date: September 25, 2023 Subjective Patient seen and examined at bedside. Comfortable; not in distress. Denies fever, chills, chest pain, shortness of breath, abdominal pain or urinary symptoms. No significant overnight events Physical Exam Physical Exam: General-alert and awake, not in distress, speaks in sentences with no effort or accessory muscle use Eyes- anicteric Neck- no JVD, no neck stiffness. Lungs- clear breath sounds bilaterally Heart- normal rate, regular rhythm; no murmurs Pacemaker site: No bleeding or discharge Abdomen- normal bowel sounds, nondistended, soft, nontender Extremities- no pretibial edema, no calf tenderness Neuro- alert, oriented x 2; no new gross focal neurologic deficits Skin- warm & dry Results & Data Results & Data Vital Signs (Past 12 Hours) Vital Signs Pulse Resp BP Pulse Ox O2 Del Method 11/04/23 08:03 60 18 154/82 H 99 Room Air
[2023-11-04] MEDS ORDERED: PROMETHAZINE HCL 6.25 MG in SODIUM CHLORIDE 0.9% 50 ML IV PRN (20:26)
[2023-11-04] MEDS: ACETAMINOPHEN 1,000 MG/100 ML VIAL IV STA (20:41)
[2023-11-04] MEDS: OPTIRAY 320 100ml IV ONE (21:21)
--- NOTE | 2023-11-04 21:42 | CT Scan Report ---
Exam(s): CT ABDOMEN + PELVIS With Contrast IV Amt: 95 cc [id number] EXAM: CT Abdomen and Pelvis With Intravenous Contrast CLINICAL HISTORY: Reason for exam: abd pain. TECHNIQUE: Axial computed tomography images of the abdomen and pelvis with intravenous contrast. CTDI is 7.08 mGy and DLP is 338.37 mGy-cm. Automated exposure control was utilized for the study. A dose lowering technique was utilized adhering to the principles of ALARA. CONTRAST: Patient received 95 cc [id number] of IV contrast COMPARISON: CT abdomen and pelvis August 06, 2023. FINDINGS: Lung bases: Unremarkable. No mass. No consolidation. ABDOMEN: Liver: Hepatic steatosis. Gallbladder and bile ducts: Unremarkable. No calcified stones. No ductal dilation. Pancreas: Unremarkable. No mass. No ductal dilation. Spleen: Unremarkable. No splenomegaly. Adrenals: Unremarkable. No mass. Kidneys and ureters: Unremarkable. No solid mass. No hydronephrosis. Stomach and bowel: Moderate fecal retention. Wall thickening of small bowel, correlate for enteritis. No obstruction. PELVIS: Appendix: No findings to suggest acute appendicitis. Bladder: Wall thickening of the urinary bladder, concerning for UTI. Reproductive: Unremarkable as visualized. ABDOMEN and PELVIS: Intraperitoneal space: Unremarkable. No free air. No significant fluid collection. Bones/joints: Degenerative changes of the spine. No acute fracture. No dislocation. Soft tissues: Unremarkable. Vasculature: Atherosclerotic changes of the aorta. No abdominal aortic aneurysm. Lymph nodes: Unremarkable. No enlarged lymph nodes. Tubes, lines and devices: Pacemaker leads. IMPRESSION: 1. Moderate fecal retention (improving when compared to prior exam). Wall thickening of small bowel, correlate for enteritis. 2. Wall thickening of the urinary bladder, concerning for UTI. Electronically signed by: Ronny Head MD 11/04/23 21:41 PM
[2023-11-04 22:14] LABS: Appearance Urine Clear (Clear); Bacteria Urine Automated None Seen (None Seen); Bilirubin Urine Negative (Negative); Blood Urine Negative (Negative); Cast Urine Automated 0-2 /lpf (0-2); Color Urine Yellow; Glucose Urine UA Negative (Negative); Ketones Urine Trace (Negative); Leukocyte Esterase Urine Trace (Negative); Nitrite Urine Negative (Negative); Protein Urine Negative (Negative); RBC Urine Automated 0-2 /hpf (0-2); Specific Gravity Urine 1.023 (1.000-1.030); Urobilinogen Urine Negative (Negative); pH Urine 5.5 (4.5-7.5)
--- NOTE | 2023-11-05 01:05 | Communication Note ---
Date of Service: November 05, 2023 Patient with new onset abdominal pain tonight. Nausea symptoms since morning as per RN. Last BM yesterday. No UTI symptoms as per RN. CT abdomen pelvis: 1. Moderate fecal retention (improving when compared to prior exam). Wall thickening of small bowel, correlate for enteritis. 2. Wall thickening of the urinary bladder, concerning for UTI. AP Enteritis Constipation Clear liquid diet for now Augment bowel regimen
[2023-11-05] MEDS: ALBUMIN 25% 25 GM/100 ML VIAL IV ONE (01:30)
[2023-11-05] MEDS: LACTULOSE SYRUP 30 GM/45 ML UDP PO STA (01:30)
[2023-11-05] MEDS: DOCUSATE SODIUM/SENNA 50/8.6MG TAB PO SCH (01:30)
[2023-11-05 01:41] LABS: Hematocrit (blood only) 32.4 % (37.0-47.0); Hemoglobin 10.6 g/dl (12.0-16.0); Mean Corpuscular Hemoglobin 27.9 pg (25.0-34.0); Mean Corpuscular Hgb Conc 32.7 g/dL (32.0-36.0); Mean Corpuscular Volume 85.3 fL (80.0-100.0); Mean Platelet Volume 10.4 fL (9.4-12.4); Platelet Count 165 K/uL (130-400); RDW Coefficient of Variation 14.3 % (11.5-14.5); RDW Standard Deviation 44.3 fL (36.4-46.3); White Blood Count 4.17 K/ul (4.8-10.8)
[2023-11-05 01:56] LABS: Albumin Level 3.8 gm/dl (3.4-5.0); BUN Creatinine Ratio 40.5 (10-20); Bilirubin,Total 0.3 mg/dl (0.2-1.0); Calcium 9.3 mg/dl (8.6-10.3); Creatinine Clr Calc Pharmacy 49.3 ml/min; Est GFR (African American) 79.4 ml/min; Est GFR (Non-African American) 68.5 ml/min; Globulin 1.9 gm/dl (2.5-4.0); Potassium 3.9 mmol/L (3.5-5.1); Total Protein 5.7 gm/dl (6.0-8.3)
[2023-11-05] MEDS: KETOROLAC TROMETHAMINE 15 MG/ML VIAL IV ONE ×2 (01:57→08:55)
[2023-11-05 01:59] LABS: Basophils # (auto) 0.02 K/uL (0.00-0.20); Basophils % (auto) 0.5 %; Eosinophils # (auto) 0.01 K/uL (0.00-0.50); Eosinophils % (auto) 0.2 %; Immature Granulocytes # (auto) 0.01 K/uL (0.01-0.20); Immature Granulocytes % (auto) 0.2 %; Lymphocytes # (auto) 2.45 K/uL (1.20-3.40); Lymphocytes % (auto) 58.8 %; Monocytes # (auto) 0.37 K/uL (0.11-0.59); Monocytes % (auto) 8.9 %; Neutrophils # (auto) 1.31 K/uL (1.40-6.50); Neutrophils % (auto) 31.4 %
[2023-11-05] MEDS: ACETAMINOPHEN 325 MG TAB PO SCH (07:38)
[2023-11-05] MEDS: bisacodyL 10 MG SUPP PR ONE (08:55)
[2023-11-05] MEDS ORDERED: SIMETHICONE 40 MG/0.6 ML 30ML PO PRN (16:12)
--- NOTE | 2023-11-05 16:13 | Hospitalist Progress Note ---
Date of Service November 05, 2023 Assessment & Plan (1) Weakness: (2) Syncope: Plan: 73 yo female with history of diabetes type 2, hypertension, dyslipidemia, hypothyroidism, brain tumor s/p resection, schizophrenia, migraine, anemia, recurrent UTIs Presenting to the hospital after being discharged from [facility] on the day prior to admission. Patient noted to have hypotension, bradycardia for which antihypertensives were removed. WEAKNESS, SYNCOPE LIKELY SECONDARY TO ORTHOSTATIC HYPOTENSION,POSSIBLE UNDERLYING SICK SINUS SYNDROME Patient recently admitted to [facility] for pneumonia, respiratory failure s/p intubation, UTI, delirium, stercoral colitis from constipation (discharged 09/14/2023) And was observed to have bradycardia, metoprolol reduced in dose. While at [facility]hab, patient noted to have borderline blood pressure and bradycardia. Amlodipine, lisinopril, metoprolol subsequently discontinued She was discharged from [facility] rehab day prior admission She presented with weakness and syncope in the setting of marginal blood pressure and sinus bradycardia in the 50s She had dry oral mucosa and low sodium indicating dehydration. CVA ruled out Brain MRI - no acute CVA 09/26 - Received contact number from for Dimitris Johnsonager ([phone]) pt's nephew. He resides in [place]. He is willing to help with decision making. He was updated on her current and previous hospitalization. He understands cardiology is considering placing a pacemaker and is in agreement with the plan. 09/27 s/p PPM placement w/ Dr. Pruitt Has remained stabled PM dressing changed by cardiology service PM function checked- appropriately functioning will need to f/u with Repair Order Clerk on discharge Febrile neutropeniaresolved Likely due to Clozapine Patient started to spike fever since 10/13 and 10/14 Chest x-ray no acute finding Pacemaker incision site without sign of infection Blood culture07/05 from 10/14/2023 growing gram positive bacilli. Repeat blood cx negative Urinalysis not suggestive of infection Was put on empiric antibiotics(Vancomycin and meropenem) --> ID evaluated 10/18, reports no concern of infection. Will monitor off antibiotic per ID recommendation.---> Remains afebrile Psychiatry evaluated; agree with holding clozapine. Can restart Zyprexa at 2.5 mg at bedtime if patient has psychiatric symptoms. Monitor for now. Patient cannot ever be started on clozapine as per psychiatry. Possible UTI, rule out Patient reported lower abdominal pain on October 28, 2023 Urinalysis suggestive of infection Was initially placed on meropenem Urine culture3 types of organism; all moderate counts. Antibiotic discontinued NECK PAIN likely muscular Lidoderm Patch, Toradol PRN Resolved HEADACHE Possible migraine attack CT head no signs of acute process Imitrex as needed DIABETES TYPE 2 last a1c 5.9 05/2023 she has not been requiring sliding scale insulin Accu-Cheks and insulin d/c'd HYPERTENSION Chronic, stable Continue lisinopril HYPOTHYROIDISM TSH 2.2 continue levothyroxine BRAIN TUMOR S/P RESECTION SCHIZOPHRENIA Psychiatry evaluated, discontinue clozapine given low ANC/neutropenia. Continue to monitor for emergence of any psychiatric symptoms. May require alternative antipsychotics. It is recommended to trial olazapine 2.5mg at HS if symptoms recur but would reach out to psych prior to initiating if needed CONSTIPATION continue bowel regimen closely monitor, as pt has tendency for severe constipation (previous admission) DVT prophylaxis SQ Lovenox Dispo: CM following, guardianship paperwork in place, medically stable for discharge to rehab once guardianship in place Please note the above document was generated using voice recognition software. It may contain grammatical, syntax or spelling errors. Any formal questions or concerns about the content, text or information contained within the body of this dictation should be directly addressed to the provider for clarification Admission and Anticipated Discharge Date Admission Date: September 25, 2023 Subjective Patient seen and examined at bedside. Comfortable; not in distress. Denies fever, chills, chest pain, shortness of breath, abdominal pain or urinary symptoms. No significant overnight events Overnight she had abdominal pain, CTAP was done with no acute finding, labs fairly WNL, patient has been afebrile, appears abdominal pain improving by morning, no tenderness on exam. Will trial simethicone. Continue with bowel regimen. Physical Exam Physical Exam: General-alert and awake, not in distress, speaks in sentences with no effort or accessory muscle use Eyes- anicteric Neck- no JVD, no neck stiffness. Lungs- clear breath sounds bilaterally Heart- normal rate, regular rhythm; no murmurs Pacemaker site: No bleeding or discharge Abdomen- normal bowel sounds, nondistended, soft, nontender Extremities- no pretibial edema, no calf tenderness Neuro- alert, oriented x 2; no new gross focal neurologic deficits Skin- warm & dry Results & Data Results & Data Vital Signs (Past 12 Hours) Vital Signs Temp Pulse Resp BP Pulse Ox O2 Del Method 11/05/23 14:28 36.4 C L 66 16 97/61 L 99 Room Air 11/05/23 07:04 36.5 C 60 14 168/74 H 100 Room Air
--- NOTE | 2023-11-06 16:22 | Hospitalist Progress Note ---
Date of Service November 06, 2023 Assessment & Plan (1) Weakness: (2) Syncope: Plan: 73 yo female with history of diabetes type 2, hypertension, dyslipidemia, hypothyroidism, brain tumor s/p resection, schizophrenia, migraine, anemia, recurrent UTIs Presenting to the hospital after being discharged from [facility] on the day prior to admission. Patient noted to have hypotension, bradycardia for which antihypertensives were removed. WEAKNESS, SYNCOPE LIKELY SECONDARY TO ORTHOSTATIC HYPOTENSION,POSSIBLE UNDERLYING SICK SINUS SYNDROME Patient recently admitted to [facility] for pneumonia, respiratory failure s/p intubation, UTI, delirium, stercoral colitis from constipation (discharged 09/14/2023) And was observed to have bradycardia, metoprolol reduced in dose. While at [facility] rehab, patient noted to have borderline blood pressure and bradycardia. Amlodipine, lisinopril, metoprolol subsequently discontinued She was discharged from [facility] rehab day prior admission She presented with weakness and syncope in the setting of marginal blood pressure and sinus bradycardia in the 50s She had dry oral mucosa and low sodium indicating dehydration. CVA ruled out Brain MRI - no acute CVA 09/26 - Received contact number from for Dimitris Johnsonager ([phone]) pt's nephew. He resides in [place]. He is willing to help with decision making. He was updated on her current and previous hospitalization. He understands cardiology is considering placing a pacemaker and is in agreement with the plan. 09/27 s/p PPM placement w/ Dr. Pruitt Has remained stabled PM dressing changed by cardiology service PM function checked- appropriately functioning will need to f/u with Counseling Services Manager on discharge Febrile neutropeniaresolved Likely due to Clozapine Patient started to spike fever since 10/13 and 10/14 Chest x-ray no acute finding Pacemaker incision site without sign of infection Blood culture07/05 from 10/14/2023 growing gram positive bacilli. Repeat blood cx negative Urinalysis not suggestive of infection Was put on empiric antibiotics(Vancomycin and meropenem) --> ID evaluated 10/18, reports no concern of infection. Will monitor off antibiotic per ID recommendation.---> Remains afebrile Psychiatry evaluated; agree with holding clozapine. Can restart Zyprexa at 2.5 mg at bedtime if patient has psychiatric symptoms. Monitor for now. Patient cannot ever be started on clozapine as per psychiatry. Possible UTI, rule out Patient reported lower abdominal pain on October 28, 2023 Urinalysis suggestive of infection Was initially placed on meropenem Urine culture3 types of organism; all moderate counts. Antibiotic discontinued NECK PAIN likely muscular Lidoderm Patch, Toradol PRN Resolved HEADACHE Possible migraine attack CT head no signs of acute process Imitrex as needed DIABETES TYPE 2 last a1c 5.9 05/2023 she has not been requiring sliding scale insulin Accu-Cheks and insulin d/c'd HYPERTENSION Chronic, stable Continue lisinopril HYPOTHYROIDISM TSH 2.2 continue levothyroxine BRAIN TUMOR S/P RESECTION SCHIZOPHRENIA Psychiatry evaluated, discontinue clozapine given low ANC/neutropenia. Continue to monitor for emergence of any psychiatric symptoms. May require alternative antipsychotics. It is recommended to trial olazapine 2.5mg at HS if symptoms recur but would reach out to psych prior to initiating if needed CONSTIPATION continue bowel regimen closely monitor, as pt has tendency for severe constipation (previous admission) DVT prophylaxis SQ Lovenox Dispo: CM following, guardianship paperwork in place, medically stable for discharge to rehab once guardianship in place Please note the above document was generated using voice recognition software. It may contain grammatical, syntax or spelling errors. Any formal questions or concerns about the content, text or information contained within the body of this dictation should be directly addressed to the provider for clarification Admission and Anticipated Discharge Date Admission Date: September 25, 2023 Subjective Patient seen and examined at bedside. Comfortable; not in distress. Denies fever, chills, chest pain, shortness of breath, abdominal pain or urinary symptoms. No significant overnight events no complain of abd pain today. Physical Exam Physical Exam: General-alert and awake, not in distress, speaks in sentences with no effort or accessory muscle use Eyes- anicteric Neck- no JVD, no neck stiffness. Lungs- clear breath sounds bilaterally Heart- normal rate, regular rhythm; no murmurs Pacemaker site: No bleeding or discharge Abdomen- normal bowel sounds, nondistended, soft, nontender Extremities- no pretibial edema, no calf tenderness Neuro- alert, oriented x 2; no new gross focal neurologic deficits Skin- warm & dry Results & Data Results & Data Vital Signs (Past 12 Hours) Vital Signs Temp Pulse Resp BP Pulse Ox O2 Del Method 11/06/23 14:36 36.8 C 60 16 104/70 100 Room Air 11/06/23 07:31 36.3 C L 60 16 144/75 H 99 Room Air
--- NOTE | 2023-11-07 17:12 | Hospitalist Progress Note ---
Date of Service November 07, 2023 Assessment & Plan (1) Weakness: (2) Syncope: Plan: 73 yo female with history of diabetes type 2, hypertension, dyslipidemia, hypothyroidism, brain tumor s/p resection, schizophrenia, migraine, anemia, recurrent UTIs Presenting to the hospital after being discharged from [facility] on the day prior to admission. Patient noted to have hypotension, bradycardia for which antihypertensives were removed. WEAKNESS, SYNCOPE LIKELY SECONDARY TO ORTHOSTATIC HYPOTENSION,POSSIBLE UNDERLYING SICK SINUS SYNDROME Patient recently admitted to [facility] for pneumonia, respiratory failure s/p intubation, UTI, delirium, stercoral colitis from constipation (discharged 09/14/2023) And was observed to have bradycardia, metoprolol reduced in dose. While at [facility] rehab, patient noted to have borderline blood pressure and bradycardia. Amlodipine, lisinopril, metoprolol subsequently discontinued She was discharged from [facility] rehab day prior admission She presented with weakness and syncope in the setting of marginal blood pressure and sinus bradycardia in the 50s She had dry oral mucosa and low sodium indicating dehydration. CVA ruled out Brain MRI - no acute CVA 09/26 - Received contact number from for Dimitris Johnsonager ([phone]) pt's nephew. He resides in [place]. He is willing to help with decision making. He was updated on her current and previous hospitalization. He understands cardiology is considering placing a pacemaker and is in agreement with the plan. 09/27 s/p PPM placement w/ Dr. Pruitt Has remained stabled PM dressing changed by cardiology service PM function checked- appropriately functioning will need to f/u with Blow Mold Machine Operator on discharge Febrile neutropeniaresolved Likely due to Clozapine Patient started to spike fever since 10/13 and 10/14 Chest x-ray no acute finding Pacemaker incision site without sign of infection Blood culture07/05 from 10/14/2023 growing gram positive bacilli. Repeat blood cx negative Urinalysis not suggestive of infection Was put on empiric antibiotics(Vancomycin and meropenem) --> ID evaluated 10/18, reports no concern of infection. Will monitor off antibiotic per ID recommendation.---> Remains afebrile Psychiatry evaluated; agree with holding clozapine. Can restart Zyprexa at 2.5 mg at bedtime if patient has psychiatric symptoms. Monitor for now. Patient cannot ever be started on clozapine as per psychiatry. Possible UTI, rule out Patient reported lower abdominal pain on October 28, 2023 Urinalysis suggestive of infection Was initially placed on meropenem Urine culture3 types of organism; all moderate counts. Antibiotic discontinued NECK PAIN likely muscular Lidoderm Patch, Toradol PRN Resolved HEADACHE Possible migraine attack CT head no signs of acute process Imitrex as needed DIABETES TYPE 2 last a1c 5.9 05/2023 she has not been requiring sliding scale insulin Accu-Cheks and insulin d/c'd HYPERTENSION Chronic, stable Continue lisinopril HYPOTHYROIDISM TSH 2.2 continue levothyroxine BRAIN TUMOR S/P RESECTION SCHIZOPHRENIA Psychiatry evaluated, discontinue clozapine given low ANC/neutropenia. Continue to monitor for emergence of any psychiatric symptoms. May require alternative antipsychotics. It is recommended to trial olazapine 2.5mg at HS if symptoms recur but would reach out to psych prior to initiating if needed CONSTIPATION continue bowel regimen closely monitor, as pt has tendency for severe constipation (previous admission) DVT prophylaxis SQ Lovenox Dispo: CM following, guardianship paperwork in place, medically stable for discharge to rehab once guardianship in place Please note the above document was generated using voice recognition software. It may contain grammatical, syntax or spelling errors. Any formal questions or concerns about the content, text or information contained within the body of this dictation should be directly addressed to the provider for clarification Admission and Anticipated Discharge Date Admission Date: September 25, 2023 Subjective Patient seen and examined at bedside. Comfortable; not in distress. Denies fever, chills, chest pain, shortness of breath, abdominal pain or urinary symptoms. Review of Systems Review of Systems: All systems reviewed & are unremarkable except as noted in Subjective Physical Exam Physical Exam: General- oriented x 2, not in distress, speaks in sentences with no effort or accessory muscle use Eyes- anicteric Neck- no JVD Lungs- clear breath sounds bilaterally Heart- normal rate, regular rhythm; no murmurs Pacemaker site: No bleeding or discharge Abdomen- normal bowel sounds, nondistended, soft, nontender Extremities- no pretibial edema, no calf tenderness Neuro- alert, oriented x 2; no new gross focal neurologic deficits Skin- warm & dry Results & Data Results & Data Vital Signs (Past 12 Hours) Vital Signs Temp Pulse Resp BP Pulse Ox O2 Del Method 11/07/23 14:14 36.5 C 60 16 105/68 100 Room Air 11/07/23 07:16 36.8 C 58 L 16 151/78 H 100 Room Air
[2023-11-07] MEDS: MAGNESIUM HYDROXIDE SUSP 30 ML UDC PO SCH (20:49)
--- NOTE | 2023-11-08 16:07 | Hospitalist Progress Note ---
Date of Service November 08, 2023 Assessment & Plan (1) Weakness: (2) Syncope: Plan: 73 yo female with history of diabetes type 2, hypertension, dyslipidemia, hypothyroidism, brain tumor s/p resection, schizophrenia, migraine, anemia, recurrent UTIs Presenting to the hospital after being discharged from [facility] on the day prior to admission. Patient noted to have hypotension, bradycardia for which antihypertensives were removed. WEAKNESS, SYNCOPE LIKELY SECONDARY TO ORTHOSTATIC HYPOTENSION,POSSIBLE UNDERLYING SICK SINUS SYNDROME Patient recently admitted to [facility] for pneumonia, respiratory failure s/p intubation, UTI, delirium, stercoral colitis from constipation (discharged 09/14/2023) And was observed to have bradycardia, metoprolol reduced in dose. While at [facility] rehab, patient noted to have borderline blood pressure and bradycardia. Amlodipine, lisinopril, metoprolol subsequently discontinued She was discharged from [facility] day prior admission She presented with weakness and syncope in the setting of marginal blood pressure and sinus bradycardia in the 50s She had dry oral mucosa and low sodium indicating dehydration. CVA ruled out Brain MRI - no acute CVA 09/26 - Received contact number from for Dimitris Johnsonager ([phone]) pt's nephew. He resides in [place]. He is willing to help with decision making. He was updated on her current and previous hospitalization. He understands cardiology is considering placing a pacemaker and is in agreement with the plan. 09/27 s/p PPM placement w/ Dr. Pruitt Has remained stabled PM dressing changed by cardiology service PM function checked- appropriately functioning will need to f/u with Gear Repairer on discharge Febrile neutropeniaresolved Likely due to Clozapine Patient started to spike fever since 10/13 and 10/14 Chest x-ray no acute finding Pacemaker incision site without sign of infection Blood culture07/05 from 10/14/2023 growing gram positive bacilli. Repeat blood cx negative Urinalysis not suggestive of infection Was put on empiric antibiotics(Vancomycin and meropenem) --> ID evaluated 10/18, reports no concern of infection. Will monitor off antibiotic per ID recommendation.---> Remains afebrile Psychiatry evaluated; agree with holding clozapine. Can restart Zyprexa at 2.5 mg at bedtime if patient has psychiatric symptoms. Monitor for now. Patient cannot ever be started on clozapine as per psychiatry. Possible UTI, rule out Patient reported lower abdominal pain on October 28, 2023 Urinalysis suggestive of infection Was initially placed on meropenem Urine culture3 types of organism; all moderate counts. Antibiotic discontinued NECK PAIN likely muscular Lidoderm Patch, Toradol PRN Resolved HEADACHE Possible migraine attack CT head no signs of acute process Imitrex as needed DIABETES TYPE 2 last a1c 5.9 05/2023 she has not been requiring sliding scale insulin Accu-Cheks and insulin d/c'd HYPERTENSION Chronic, stable Continue lisinopril HYPOTHYROIDISM TSH 2.2 continue levothyroxine BRAIN TUMOR S/P RESECTION SCHIZOPHRENIA Psychiatry evaluated, discontinue clozapine given low ANC/neutropenia. Continue to monitor for emergence of any psychiatric symptoms. May require alternative antipsychotics. It is recommended to trial olazapine 2.5mg at HS if symptoms recur but would reach out to psych prior to initiating if needed CONSTIPATION continue bowel regimen closely monitor, as pt has tendency for severe constipation (previous admission) DVT prophylaxis SQ Lovenox Dispo: CM following, guardianship paperwork in place, medically stable for discharge to rehab once guardianship in place Please note the above document was generated using voice recognition software. It may contain grammatical, syntax or spelling errors. Any formal questions or concerns about the content, text or information contained within the body of this dictation should be directly addressed to the provider for clarification Admission and Anticipated Discharge Date Admission Date: September 25, 2023 Subjective Patient seen and examined at bedside. Comfortable; not in distress. Denies fever, chills, chest pain, shortness of breath, abdominal pain or urinary symptoms. Physical Exam Physical Exam: General- oriented x 2, not in distress, speaks in sentences with no effort or accessory muscle use Eyes- anicteric Neck- no JVD Lungs- clear breath sounds bilaterally Heart- normal rate, regular rhythm; no murmurs Pacemaker site: No bleeding or discharge Abdomen- normal bowel sounds, nondistended, soft, nontender Extremities- no pretibial edema, no calf tenderness Neuro- alert, oriented x 2; no new gross focal neurologic deficits Skin- warm & dry Results & Data Results & Data Vital Signs (Past 12 Hours) Vital Signs Temp Pulse Pulse Resp BP Pulse Ox O2 Del Method 11/08/23 15:10 37.0 C 59 L 18 152/88 H 95 Room Air 11/08/23 07:35 36.4 C L 69 18 167/89 H 100 Room Air
--- NOTE | 2023-11-09 15:59 | Hospitalist Progress Note ---
Date of Service November 09, 2023 Assessment & Plan (1) Weakness: (2) Syncope: Plan: 73 yo female with history of diabetes type 2, hypertension, dyslipidemia, hypothyroidism, brain tumor s/p resection, schizophrenia, migraine, anemia, recurrent UTIs Presenting to the hospital after being discharged from [facility] on the day prior to admission. Patient noted to have hypotension, bradycardia for which antihypertensives were removed. WEAKNESS, SYNCOPE LIKELY SECONDARY TO ORTHOSTATIC HYPOTENSION,POSSIBLE UNDERLYING SICK SINUS SYNDROME Patient recently admitted to [facility] for pneumonia, respiratory failure s/p intubation, UTI, delirium, stercoral colitis from constipation (discharged 09/14/2023) And was observed to have bradycardia, metoprolol reduced in dose. While at [facility] rehab, patient noted to have borderline blood pressure and bradycardia. Amlodipine, lisinopril, metoprolol subsequently discontinued She was discharged from [facility] rehab day prior admission She presented with weakness and syncope in the setting of marginal blood pressure and sinus bradycardia in the 50s She had dry oral mucosa and low sodium indicating dehydration. CVA ruled out Brain MRI - no acute CVA 09/26 - Received contact number from for Dimitris Johnsonager ([phone]) pt's nephew. He resides in [place]. He is willing to help with decision making. He was updated on her current and previous hospitalization. He understands cardiology is considering placing a pacemaker and is in agreement with the plan. 09/27 s/p PPM placement w/ Dr. Pruitt Has remained stabled PM dressing changed by cardiology service PM function checked- appropriately functioning will need to f/u with Travelers' Aid Worker on discharge Febrile neutropeniaresolved Likely due to Clozapine Patient started to spike fever since 10/13 and 10/14 Chest x-ray no acute finding Pacemaker incision site without sign of infection Blood culture07/05 from 10/14/2023 growing gram positive bacilli. Repeat blood cx negative Urinalysis not suggestive of infection Was put on empiric antibiotics(Vancomycin and meropenem) --> ID evaluated 10/18, reports no concern of infection. Will monitor off antibiotic per ID recommendation.---> Remains afebrile Psychiatry evaluated; agree with holding clozapine. Can restart Zyprexa at 2.5 mg at bedtime if patient has psychiatric symptoms. Monitor for now. Patient cannot ever be started on clozapine as per psychiatry. Possible UTI, rule out Patient reported lower abdominal pain on October 28, 2023 Urinalysis suggestive of infection Was initially placed on meropenem Urine culture3 types of organism; all moderate counts. Antibiotic discontinued NECK PAIN likely muscular Lidoderm Patch, Toradol PRN Resolved HEADACHE Possible migraine attack CT head no signs of acute process Imitrex as needed DIABETES TYPE 2 last a1c 5.9 05/2023 she has not been requiring sliding scale insulin Accu-Cheks and insulin d/c'd HYPERTENSION Chronic, stable Continue lisinopril HYPOTHYROIDISM TSH 2.2 continue levothyroxine BRAIN TUMOR S/P RESECTION SCHIZOPHRENIA Psychiatry evaluated, discontinue clozapine given low ANC/neutropenia. Continue to monitor for emergence of any psychiatric symptoms. May require alternative antipsychotics. It is recommended to trial olazapine 2.5mg at HS if symptoms recur but would reach out to psych prior to initiating if needed CONSTIPATION continue bowel regimen closely monitor, as pt has tendency for severe constipation (previous admission) DVT prophylaxis SQ Lovenox Dispo: CM following, guardianship paperwork in place, medically stable for discharge to rehab once guardianship in place Please note the above document was generated using voice recognition software. It may contain grammatical, syntax or spelling errors. Any formal questions or concerns about the content, text or information contained within the body of this dictation should be directly addressed to the provider for clarification Admission and Anticipated Discharge Date Admission Date: September 25, 2023 Subjective Patient seen and examined at bedside. Comfortable; not in distress. Denies fever, chills, chest pain, shortness of breath, abdominal pain or urinary symptoms. Review of Systems Review of Systems: All systems reviewed & are unremarkable except as noted in Subjective Physical Exam Physical Exam: General- oriented x 2, not in distress, speaks in sentences with no effort or accessory muscle use Eyes- anicteric Neck- no JVD Lungs- clear breath sounds bilaterally Heart- normal rate, regular rhythm; no murmurs Pacemaker site: No bleeding or discharge Abdomen- normal bowel sounds, nondistended, soft, nontender Extremities- no pretibial edema, no calf tenderness Neuro- alert, oriented x 2; no new gross focal neurologic deficits Skin- warm & dry Results & Data Results & Data Vital Signs (Past 12 Hours) Vital Signs Temp Pulse Resp BP BP Pulse Ox O2 Del Method 11/09/23 15:44 37.0 C 72 16 146/74 H 96 Room Air 11/09/23 09:00 36.6 C 62 15 145/79 H 94 Room Air 11/09/23 07:50 35 C L 59 L 15 156/75 H 94 Room Air
--- NOTE | 2023-11-10 13:52 | Hospitalist Progress Note ---
Date of Service November 10, 2023 Assessment & Plan (1) Weakness: (2) Syncope: Plan: 73 yo female with history of diabetes type 2, hypertension, dyslipidemia, hypothyroidism, brain tumor s/p resection, schizophrenia, migraine, anemia, recurrent UTIs Presenting to the hospital after being discharged from [facility] on the day prior to admission. Patient noted to have hypotension, bradycardia for which antihypertensives were removed. WEAKNESS, SYNCOPE LIKELY SECONDARY TO ORTHOSTATIC HYPOTENSION,POSSIBLE UNDERLYING SICK SINUS SYNDROME Patient recently admitted to [facility] for pneumonia, respiratory failure s/p intubation, UTI, delirium, stercoral colitis from constipation (discharged 09/14/2023) And was observed to have bradycardia, metoprolol reduced in dose. While at [facility], patient noted to have borderline blood pressure and bradycardia. Amlodipine, lisinopril, metoprolol subsequently discontinued She was discharged from [facility] day prior admission She presented with weakness and syncope in the setting of marginal blood pressure and sinus bradycardia in the 50s She had dry oral mucosa and low sodium indicating dehydration. CVA ruled out Brain MRI - no acute CVA 09/26 - Received contact number from for Dimitris Johnsonager ([phone]) pt's nephew. He resides in [place]. He is willing to help with decision making. He was updated on her current and previous hospitalization. He understands cardiology is considering placing a pacemaker and is in agreement with the plan. 09/27 s/p PPM placement w/ Dr. Pruitt Has remained stabled PM dressing changed by cardiology service PM function checked- appropriately functioning will need to f/u with Product Expert on discharge Febrile neutropeniaresolved Likely due to Clozapine Patient started to spike fever since 10/13 and 10/14 Chest x-ray no acute finding Pacemaker incision site without sign of infection Blood culture07/05 from 10/14/2023 growing gram positive bacilli. Repeat blood cx negative Urinalysis not suggestive of infection Was put on empiric antibiotics(Vancomycin and meropenem) --> ID evaluated 10/18, reports no concern of infection. Will monitor off antibiotic per ID recommendation.---> Remains afebrile Psychiatry evaluated; agree with holding clozapine. Can restart Zyprexa at 2.5 mg at bedtime if patient has psychiatric symptoms. Monitor for now. Patient cannot ever be started on clozapine as per psychiatry. Possible UTI, rule out Patient reported lower abdominal pain on October 28, 2023 Urinalysis suggestive of infection Was initially placed on meropenem Urine culture3 types of organism; all moderate counts. Antibiotic discontinued NECK PAIN likely muscular Lidoderm Patch, Toradol PRN Resolved HEADACHE Possible migraine attack CT head no signs of acute process Imitrex as needed DIABETES TYPE 2 last a1c 5.9 05/2023 she has not been requiring sliding scale insulin Accu-Cheks and insulin d/c'd HYPERTENSION Chronic, stable Continue lisinopril HYPOTHYROIDISM TSH 2.2 continue levothyroxine BRAIN TUMOR S/P RESECTION SCHIZOPHRENIA Psychiatry evaluated, discontinue clozapine given low ANC/neutropenia. Continue to monitor for emergence of any psychiatric symptoms. May require alternative antipsychotics. It is recommended to trial olazapine 2.5mg at HS if symptoms recur but would reach out to psych prior to initiating if needed CONSTIPATION continue bowel regimen closely monitor, as pt has tendency for severe constipation (previous admission) DVT prophylaxis SQ Lovenox Dispo: CM following, guardianship paperwork in place, medically stable for discharge to rehab once guardianship in place Please note the above document was generated using voice recognition software. It may contain grammatical, syntax or spelling errors. Any formal questions or concerns about the content, text or information contained within the body of this dictation should be directly addressed to the provider for clarification Admission and Anticipated Discharge Date Admission Date: September 25, 2023 Subjective Patient seen and examined at bedside. Comfortable; not in distress. Denies fever, chills, chest pain, shortness of breath, abdominal pain or urinary symptoms. Review of Systems Review of Systems: All systems reviewed & are unremarkable except as noted in Subjective Physical Exam Physical Exam: General- oriented x 2, not in distress, speaks in sentences with no effort or accessory muscle use Eyes- anicteric Neck- no JVD Lungs- clear breath sounds bilaterally Heart- normal rate, regular rhythm; no murmurs Pacemaker site: No bleeding or discharge Abdomen- normal bowel sounds, nondistended, soft, nontender Extremities- no pretibial edema, no calf tenderness Neuro- alert, oriented x 2; no new gross focal neurologic deficits Skin- warm & dry Results & Data Results & Data Vital Signs (Past 12 Hours) Vital Signs Temp Pulse Resp BP Pulse Ox O2 Del Method 11/10/23 07:44 36.8 C 59 L 16 148/73 H 100 Room Air
--- NOTE | 2023-11-11 12:08 | Hospitalist Progress Note ---
Date of Service November 11, 2023 Assessment & Plan (1) Weakness: (2) Syncope: Plan: 73 yo female with history of diabetes type 2, hypertension, dyslipidemia, hypothyroidism, brain tumor s/p resection, schizophrenia, migraine, anemia, recurrent UTIs Presenting to the hospital after being discharged from [facility] on the day prior to admission. Patient noted to have hypotension, bradycardia for which antihypertensives were removed. WEAKNESS, SYNCOPE LIKELY SECONDARY TO ORTHOSTATIC HYPOTENSION,POSSIBLE UNDERLYING SICK SINUS SYNDROME Patient recently admitted to [facility] for pneumonia, respiratory failure s/p intubation, UTI, delirium, stercoral colitis from constipation (discharged 09/14/2023) And was observed to have bradycardia, metoprolol reduced in dose. While at [facility], patient noted to have borderline blood pressure and bradycardia. Amlodipine, lisinopril, metoprolol subsequently discontinued She was discharged from [facility] re[facility] day prior admission She presented with weakness and syncope in the setting of marginal blood pressure and sinus bradycardia in the 50s She had dry oral mucosa and low sodium indicating dehydration. CVA ruled out Brain MRI - no acute CVA 09/26 - Received contact number from for Dimitris Johnsonager ([phone]) pt's nephew. He resides in [place]. He is willing to help with decision making. He was updated on her current and previous hospitalization. He understands cardiology is considering placing a pacemaker and is in agreement with the plan. 09/27 s/p PPM placement w/ Dr. Pruitt Has remained stabled PM dressing changed by cardiology service PM function checked- appropriately functioning will need to f/u with [employer] on discharge Febrile neutropeniaresolved Likely due to Clozapine Patient started to spike fever since 10/13 and 10/14 Chest x-ray no acute finding Pacemaker incision site without sign of infection Blood culture07/05 from 10/14/2023 growing gram positive bacilli. Repeat blood cx negative Urinalysis not suggestive of infection Was put on empiric antibiotics(Vancomycin and meropenem) --> ID evaluated 10/18, reports no concern of infection. Will monitor off antibiotic per ID recommendation.---> Remains afebrile Psychiatry evaluated; agree with holding clozapine. Can restart Zyprexa at 2.5 mg at bedtime if patient has psychiatric symptoms. Monitor for now. Patient cannot ever be started on clozapine as per psychiatry. Possible UTI, rule out Patient reported lower abdominal pain on October 28, 2023 Urinalysis suggestive of infection Was initially placed on meropenem Urine culture3 types of organism; all moderate counts. Antibiotic discontinued NECK PAIN likely muscular Lidoderm Patch, Toradol PRN Resolved HEADACHE Possible migraine attack CT head no signs of acute process Imitrex as needed DIABETES TYPE 2 last a1c 5.9 05/2023 she has not been requiring sliding scale insulin Accu-Cheks and insulin d/c'd HYPERTENSION Chronic, stable Continue lisinopril HYPOTHYROIDISM TSH 2.2 continue levothyroxine BRAIN TUMOR S/P RESECTION SCHIZOPHRENIA Psychiatry evaluated, discontinue clozapine given low ANC/neutropenia. Continue to monitor for emergence of any psychiatric symptoms. May require alternative antipsychotics. It is recommended to trial olazapine 2.5mg at HS if symptoms recur. CONSTIPATION continue bowel regimen closely monitor, as pt has tendency for severe constipation (previous admission) DVT prophylaxis SQ Lovenox Dispo: CM following, guardianship paperwork in place, medically stable for discharge to rehab once guardianship in place Please note the above document was generated using voice recognition software. It may contain grammatical, syntax or spelling errors. Any formal questions or concerns about the content, text or information contained within the body of this dictation should be directly addressed to the provider for clarification Admission and Anticipated Discharge Date Admission Date: September 25, 2023 Subjective Patient seen and examined at bedside. Comfortable; not in distress. Denies fever, chills, chest pain, shortness of breath, abdominal pain or urinary symptoms. Review of Systems Review of Systems: All systems reviewed & are unremarkable except as noted in Subjective Physical Exam Physical Exam: General- oriented x 2, not in distress, speaks in sentences with no effort or accessory muscle use Eyes- anicteric Neck- no JVD Lungs- clear breath sounds bilaterally Heart- normal rate, regular rhythm; no murmurs Pacemaker site: No bleeding or discharge Abdomen- normal bowel sounds, nondistended, soft, nontender Extremities- no pretibial edema, no calf tenderness Neuro- alert, oriented x 2; no new gross focal neurologic deficits Skin- warm & dry Results & Data Results & Data Vital Signs (Past 12 Hours) Vital Signs Temp Pulse Resp BP Pulse Ox O2 Del Method 11/11/23 07:54 36.7 C 59 L 16 156/77 H 98 Room Air
--- NOTE | 2023-11-12 15:58 | Hospitalist Progress Note ---
Date of Service November 12, 2023 Assessment & Plan (1) Weakness: (2) Syncope: Plan: 73 yo female with history of diabetes type 2, hypertension, dyslipidemia, hypothyroidism, brain tumor s/p resection, schizophrenia, migraine, anemia, recurrent UTIs Presenting to the hospital after being discharged from [facility] on the day prior to admission. Patient noted to have hypotension, bradycardia for which antihypertensives were removed. WEAKNESS, SYNCOPE LIKELY SECONDARY TO ORTHOSTATIC HYPOTENSION,POSSIBLE UNDERLYING SICK SINUS SYNDROME Patient recently admitted to [facility] for pneumonia, respiratory failure s/p intubation, UTI, delirium, stercoral colitis from constipation (discharged 09/14/2023) And was observed to have bradycardia, metoprolol reduced in dose. While at [facility] re[facility], patient noted to have borderline blood pressure and bradycardia. Amlodipine, lisinopril, metoprolol subsequently discontinued She was discharged from [facility] rehab day prior admission She presented with weakness and syncope in the setting of marginal blood pressure and sinus bradycardia in the 50s She had dry oral mucosa and low sodium indicating dehydration. CVA ruled out Brain MRI - no acute CVA 09/26 - Received contact number from for Dimitris Johnsonager ([phone]) pt's nephew. He resides in [place]. He is willing to help with decision making. He was updated on her current and previous hospitalization. He understands cardiology is considering placing a pacemaker and is in agreement with the plan. 09/27 s/p PPM placement w/ Dr. Pruitt Has remained stabled PM dressing changed by cardiology service PM function checked- appropriately functioning will need to f/u with [employer] on discharge Febrile neutropeniaresolved Likely due to Clozapine Patient started to spike fever since 10/13 and 10/14 Chest x-ray no acute finding Pacemaker incision site without sign of infection Blood culture07/05 from 10/14/2023 growing gram positive bacilli. Repeat blood cx negative Urinalysis not suggestive of infection Was put on empiric antibiotics(Vancomycin and meropenem) --> ID evaluated 10/18, reports no concern of infection. Will monitor off antibiotic per ID recommendation.---> Remains afebrile Psychiatry evaluated; agree with holding clozapine. Can restart Zyprexa at 2.5 mg at bedtime if patient has psychiatric symptoms. Monitor for now. Patient cannot ever be started on clozapine as per psychiatry. Possible UTI, rule out Patient reported lower abdominal pain on October 28, 2023 Urinalysis suggestive of infection Was initially placed on meropenem Urine culture3 types of organism; all moderate counts. Antibiotic discontinued NECK PAIN likely muscular Lidoderm Patch, Toradol PRN Resolved HEADACHE Possible migraine attack CT head no signs of acute process Imitrex as needed DIABETES TYPE 2 last a1c 5.9 05/2023 she has not been requiring sliding scale insulin Accu-Cheks and insulin d/c'd HYPERTENSION Chronic, stable Continue lisinopril HYPOTHYROIDISM TSH 2.2 continue levothyroxine BRAIN TUMOR S/P RESECTION SCHIZOPHRENIA Psychiatry evaluated, discontinue clozapine given low ANC/neutropenia. Continue to monitor for emergence of any psychiatric symptoms. May require alternative antipsychotics. It is recommended to trial olazapine 2.5mg at HS if symptoms recur. CONSTIPATION continue bowel regimen closely monitor, as pt has tendency for severe constipation (previous admission) DVT prophylaxis SQ Lovenox Dispo: CM following, guardianship paperwork in place, medically stable for discharge to rehab once guardianship in place Please note the above document was generated using voice recognition software. It may contain grammatical, syntax or spelling errors. Any formal questions or concerns about the content, text or information contained within the body of this dictation should be directly addressed to the provider for clarification Admission and Anticipated Discharge Date Admission Date: September 25, 2023 Subjective Patient seen and examined at bedside. She is sitting up on the bed; not in distress No significant events overnight Review of Systems 2 Review of Systems: All systems reviewed & are unremarkable except as noted in Subjective Physical Exam Physical Exam: General- oriented x 2, not in distress, speaks in sentences with no effort or accessory muscle use Eyes- anicteric Neck- no JVD Lungs- clear breath sounds bilaterally Heart- normal rate, regular rhythm; no murmurs Pacemaker site: No bleeding or discharge Abdomen- normal bowel sounds, nondistended, soft, nontender Extremities- no pretibial edema, no calf tenderness Neuro- alert, oriented x 2; no new gross focal neurologic deficits Skin- warm & dry Results & Data Results & Data Vital Signs (Past 12 Hours) Vital Signs Temp Pulse Resp BP Pulse Ox O2 Del Method 11/12/23 15:45 37 C 60 16 126/74 98 Room Air 11/12/23 07:20 36.4 C L 61 15 168/79 H 100 Room Air
[2023-11-12] MEDS: ACETAMINOPHEN 325 MG TAB PO SCH (21:11)
--- NOTE | 2023-11-13 13:59 | Hospitalist Progress Note ---
Date of Service November 13, 2023 Assessment & Plan (1) Weakness: (2) Syncope: Plan: 73 yo female with history of diabetes type 2, hypertension, dyslipidemia, hypothyroidism, brain tumor s/p resection, schizophrenia, migraine, anemia, recurrent UTIs Presenting to the hospital after being discharged from [facility] on the day prior to admission. Patient noted to have hypotension, bradycardia for which antihypertensives were removed. WEAKNESS, SYNCOPE LIKELY SECONDARY TO ORTHOSTATIC HYPOTENSION,POSSIBLE UNDERLYING SICK SINUS SYNDROME Patient recently admitted to [facility] for pneumonia, respiratory failure s/p intubation, UTI, delirium, stercoral colitis from constipation (discharged 09/14/2023) And was observed to have bradycardia, metoprolol reduced in dose. While at [facility], patient noted to have borderline blood pressure and bradycardia. Amlodipine, lisinopril, metoprolol subsequently discontinued She was discharged from [facility] day prior admission She presented with weakness and syncope in the setting of marginal blood pressure and sinus bradycardia in the 50s She had dry oral mucosa and low sodium indicating dehydration. CVA ruled out Brain MRI - no acute CVA 09/26 - Received contact number from for Dimitris Johnsonager ([phone]) pt's nephew. He resides in [place]. He is willing to help with decision making. He was updated on her current and previous hospitalization. He understands cardiology is considering placing a pacemaker and is in agreement with the plan. 09/27 s/p PPM placement w/ Dr. Pruitt Has remained stabled PM dressing changed by cardiology service PM function checked- appropriately functioning will need to f/u with Integrated Marketing Manager on discharge Febrile neutropeniaresolved Likely due to Clozapine Patient started to spike fever since 10/13 and 10/14 Chest x-ray no acute finding Pacemaker incision site without sign of infection Blood culture07/05 from 10/14/2023 growing gram positive bacilli. Repeat blood cx negative Urinalysis not suggestive of infection Was put on empiric antibiotics(Vancomycin and meropenem) --> ID evaluated 10/18, reports no concern of infection. Will monitor off antibiotic per ID recommendation.---> Remains afebrile Psychiatry evaluated; agree with holding clozapine. Can restart Zyprexa at 2.5 mg at bedtime if patient has psychiatric symptoms. Monitor for now. Patient cannot ever be started on clozapine as per psychiatry. Possible UTI, rule out Patient reported lower abdominal pain on October 28, 2023 Urinalysis suggestive of infection Was initially placed on meropenem Urine culture3 types of organism; all moderate counts. Antibiotic discontinued NECK PAIN likely muscular Lidoderm Patch, Toradol PRN Resolved HEADACHE Possible migraine attack CT head no signs of acute process Imitrex as needed DIABETES TYPE 2 last a1c 5.9 05/2023 she has not been requiring sliding scale insulin Accu-Cheks and insulin d/c'd HYPERTENSION Chronic, stable Continue lisinopril HYPOTHYROIDISM TSH 2.2 continue levothyroxine BRAIN TUMOR S/P RESECTION SCHIZOPHRENIA Psychiatry evaluated, discontinue clozapine given low ANC/neutropenia. Continue to monitor for emergence of any psychiatric symptoms. May require alternative antipsychotics. It is recommended to trial olazapine 2.5mg at HS if symptoms recur. CONSTIPATION continue bowel regimen closely monitor, as pt has tendency for severe constipation (previous admission) DVT prophylaxis SQ Lovenox Dispo: CM following, guardianship paperwork in place, medically stable for discharge to rehab once guardianship in place Please note the above document was generated using voice recognition software. It may contain grammatical, syntax or spelling errors. Any formal questions or concerns about the content, text or information contained within the body of this dictation should be directly addressed to the provider for clarification Admission and Anticipated Discharge Date Admission Date: September 25, 2023 Subjective Patient seen and examined at bedside. She is sitting up on the bed; not in distress No significant events overnight Physical Exam Physical Exam: General- oriented x 2, not in distress, speaks in sentences with no effort or accessory muscle use Eyes- anicteric Neck- no JVD Lungs- clear breath sounds bilaterally Heart- normal rate, regular rhythm; no murmurs Pacemaker site: No bleeding or discharge Abdomen- normal bowel sounds, nondistended, soft, nontender Extremities- no pretibial edema, no calf tenderness Neuro- alert, oriented x 2; no new gross focal neurologic deficits Skin- warm & dry Results & Data Results & Data Vital Signs (Past 12 Hours) Vital Signs Temp Pulse Resp BP Pulse Ox O2 Del Method 11/13/23 07:20 36.3 C L 52 L 16 170/90 H 99 Room Air
--- NOTE | 2023-11-14 18:56 | Hospitalist Progress Note ---
Date of Service November 14, 2023 Assessment & Plan (1) Weakness: (2) Syncope: Plan: Pt is a 73 yo female with history of diabetes type 2, hypertension, dyslipidemia, hypothyroidism, brain tumor s/p resection, schizophrenia, migraine, anemia, recurrent UTIs who presented to the hospital after being discharged from [facility] on the day prior to admission. Patient noted to have hypotension, bradycardia for which antihypertensives were removed. She is currently awaiting guardianship hearing for placement. WEAKNESS, SYNCOPE LIKELY SECONDARY TO ORTHOSTATIC HYPOTENSION,POSSIBLE UNDERLYING SICK SINUS SYNDROME Patient was previously admitted to [facility] for pneumonia, respiratory failure s/p intubation, UTI, delirium, stercoral colitis from constipation (discharged 09/14/2023) And was observed to have bradycardia, metoprolol reduced in dose. While at [facility]hab, patient noted to have borderline blood pressure and bradycardia. Amlodipine, lisinopril, metoprolol subsequently discontinued She was discharged from [facility] rehab the day prior to admission She presented with weakness and syncope in the setting of marginal blood pressure and sinus bradycardia in the 50s She had dry oral mucosa and low sodium indicating dehydration. CVA was ruled out Brain MRI - no acute CVA Cardiology was consulted- considering pacemaker placement. 09/26 - Received contact number from for Dimitris Peterson ([phone]) pt's nephew. He resides in [place]. He is willing to help with decision making. He was updated on her current and previous hospitalization. He understands cardiology is considering placing a pacemaker and is in agreement with the plan. 09/27 s/p PPM placement w/ EP Has remained stabled PM dressing changed by cardiology service PM function checked- appropriately functioning will need to f/u with [employer] on discharge Febrile neutropeniaresolved Likely due to Clozapine Patient started to spike fever on 10/13 and 10/14 Chest x-ray no acute finding Pacemaker incision site without sign of infection Blood culture07/05 from 10/14/2023 growing gram positive bacilli. Repeat blood cx negative Urinalysis not suggestive of infection Was put on empiric antibiotics(Vancomycin and meropenem) --> ID evaluated 10/18, reports no concern of infection. Will monitor off antibiotic per ID recommendation.---> Remains afebrile Psychiatry evaluated; agree with holding clozapine. Can restart Zyprexa at 2.5 mg at bedtime if patient has psychiatric symptoms. Pt with reported crying spells, started on scheduled zyprexa 2.5mg qhs overnight on 11/13 Patient cannot ever be started on clozapine as per psychiatry. Possible UTI, rule out Patient reported lower abdominal pain on October 28, 2023 Urinalysis suggestive of infection Was initially placed on meropenem Urine culture3 types of organism; all moderate counts. Completed treatment, antibiotics discontinued NECK PAIN likely muscular Lidoderm Patch, Toradol PRN Resolved HEADACHE Possible migraine attack CT head no signs of acute process Imitrex as needed DIABETES TYPE 2 last a1c 5.9 05/2023 she has not been requiring sliding scale insulin Accu-Cheks and insulin d/c'd HYPERTENSION Chronic, stable Continue lisinopril HYPOTHYROIDISM TSH 2.2 continue levothyroxine BRAIN TUMOR S/P RESECTION SCHIZOPHRENIA Psychiatry evaluated, discontinue clozapine given low ANC/neutropenia. Continue to monitor for emergence of any psychiatric symptoms. May require alternative antipsychotics. It is recommended to trial olazapine 2.5mg at HS if symptoms recur. Pt with reported crying spells, started on scheduled zyprexa 2.5mg qhs on 11/13 Patient cannot ever be started on clozapine as per psychiatry. CONSTIPATION continue bowel regimen closely monitor, as pt has tendency for severe constipation (previous admission) DVT prophylaxis SQ Lovenox Dispo: CM following, guardianship paperwork in place, medically stable for dis charge to rehab once guardianship in place Admission and Anticipated Discharge Date Admission Date: September 25, 2023 Subjective Pt was seen sitting in bed. At time of my exam, denied abdominal pain or headache though nursing noted that she had previously reported this earlier. Review of Systems Review of Systems: All systems reviewed & are unremarkable except as noted in Subjective Physical Exam Physical Exam: General: Alert. No acute distress Psych: Appropriate mood and affect Neuro: difficulty with movements in the bed HEENT: NC/AT CV: RRR Resp: Breath sounds clear bilaterally, no increased effort of breathing. Abdomen: Soft, diffusely tender, nondistended. No guarding. Extremities: No edema in lower extremities bilaterally. Results & Data Results & Data Vital Signs (Past 12 Hours) Vital Signs Temp Pulse Resp BP Pulse Ox O2 Del Method 11/14/23 07:24 36.5 C 47 L 17 154/83 H 99 Room Air 11/13/23 20:41 36.6 C 60 16 151/76 H 97 Room Air Diagnostic Findings Chest X-Ray 09/25/23 14:36 SINGLE VIEW CHEST CLINICAL HISTORY: Atypical chest pain FINDINGS: An AP, portable, upright chest radiograph is compared to study dated 08/29/2023. The heart is mildly enlarged noting atherosclerotic calcification of the thoracic aorta. The pulmonary vasculature is noncongested. Chronic interstitial thickening is similar to previous. There is mild bibasilar scarring/atelectasis. The lungs and pleural spaces are otherwise clear. No pneumothorax is seen. The skeletal structures are osteopenic. The bony thorax is grossly intact. IMPRESSION: Cardiomegaly with no active disease in the chest. ACT 112: Negative or not required by law. Electronically signed by: Patel Qiu M.D. 09/25/2023 3:[address] 09/25/23 15:03 CT OF THE HEAD WITHOUT CONTRAST CLINICAL HISTORY: Altered mental status. COMPARISON STUDY: Head CT August 06, 2023. CT DOSE: 625.8 mGy.cm TECHNIQUE: Helical axial images of the head were obtained without IV contrast. Automated exposure control was utilized for the study. A dose lowering technique was utilized adhering to the principles of ALARA. FINDINGS: No acute intracranial hemorrhage, midline shift or mass effect is present. The ventricular system is unremarkable. The basal cisterns are patent. No extra-axial collections are present. There are no findings to suggest acute dural sinus thrombosis or acute territorial infarct. No calvarial fracture is identified. Right posterior calvarial defect is chronic. IMPRESSION: No acute intracranial findings. No change in appearance of the brain. ACT 112: Negative or not required by law. Electronically signed by: Lukas Law M.D. 09/25/2023 3:52 PM KUB X-Ray 09/25/23 15:03 XR KUB/Abdomen 1 view CLINICAL HISTORY: ams TECHNIQUE: 1 view of the abdomen was obtained. Comparison: Comparison is made to abdomen radiograph 08/26/2023 FINDINGS: Lung bases are unremarkable. Degenerative changes are seen in the visualized skeleton. Left pelvic calcification is stable. The bowel gas pattern is nonobstructive. A moderate amount of stool is noted within the large bowel. IMPRESSION: Nonobstructive bowel gas pattern. ACT 112: Negative or not required by law. Electronically signed by: Trevin Yeboah M.D. 09/25/2023 3:23 PM Brain MRI 09/25/23 18:02 Exam(s): MRI HEAD Without Contrast EXAM: MR Head Without Intravenous Contrast CLINICAL HISTORY: Reason for exam: syncope. TECHNIQUE: Magnetic resonance images of the head/brain without intravenous contrast in multiple planes. COMPARISON: CT head from March 08, 2023 FINDINGS: Brain: Mild diffuse cerebral atrophy and periventricular white matter T2 hyperintensity consistent with chronic small vessel disease and/or senescent changes, unchanged. No areas of diffusion restriction are seen to indicate acute stroke. No hemorrhage. Ventricles: Unremarkable. No ventriculomegaly. Bones/joints: Unremarkable. No acute fracture. Sinuses: Unremarkable as visualized. No acute sinusitis. Mastoid air cells: Unremarkable as visualized. No mastoid effusion. Orbits: Unremarkable as visualized. IMPRESSION: Mild diffuse cerebral atrophy and periventricular white matter T2 hyperintensity consistent with chronic small vessel disease and/or senescent changes, unchanged. No areas of diffusion restriction are seen to indicate acute stroke. Electronically signed by: Fantasma Young MD 09/25/23 20:38 PM Chest X-Ray 09/28/23 10:00 XR chest 1V portable HISTORY: Status post pacemaker placement. COMPARISON: Chest 09/25/2023. FINDINGS: There is a left-sided dual-chamber pacemaker. The leads appear intact. No pneumothorax. No pleural effusions. The heart remains mildly enlarged. No evidence for pulmonary edema. No acute fractures. Calcifications within the aortic knob. IMPRESSION: Interval placement of a left-sided dual-chamber pacemaker. No pneumothorax. ACT 112: Negative or not required by law. Electronically signed by: Doe Harper M.D. 09/28/2023 10:[address] 10/03/23 10:35 CT head/brain wo con CLINICAL HISTORY: headache, dizziness Technique: Contiguous axial CT images of the head were acquired from the base of the skull to the vertex without intravenous contrast administration. Images were viewed in brain, subdural and bone windows. Automated dose lowering techniques and/or adjustment according to patient size were utilized for this exam. Comparison: Comparison is made to CT head 09/25/2023 Findings: The ventricles, basal cisterns, and cerebral sulci are normal. There is no acute intracranial hemorrhage or evidence of acute territorial infarction. Neither mass effect, shift of the midline structures, nor abnormal extra-axial fluid collections are shown. Imaged portions of the paranasal sinuses and mastoid air cells are clear. The orbits appear normal. There are no acute fractures of the calvaria or scalp sw elling. Chronic defect again seen in the right calvarium. Impression: No acute intracranial hemorrhage, no evidence of acute territorial infarction or other acute intracranial disease process. ACT 112: Negative or not required by law. Electronically signed by: Trevin Yeboah M.D. 10/03/2023 11:27 AM Chest X-Ray 10/14/23 20:17 XR chest 1V portable HISTORY: chest pain. new pacer placed COMPARISON: Chest 09/28/2023. FINDINGS: There is left-sided dual-chamber pacemaker. The leads appear intact. No pneumothorax. No pleural effusions. The lungs are clear. The heart is borderline enlarged. This remains unchanged. No acute fractures. IMPRESSION: No significant change compared to the prior study. No acute process. ACT 112: Negative or not required by law. Electronically signed by: Doe Harper M.D. 10/15/2023 7:01 AM Abdomen/Pelvis CT 11/04/23 20:27 Exam(s): CT ABDOMEN + PELVIS With Contrast IV Amt: 95 cc [id number] EXAM: CT Abdomen and Pelvis With Intravenous Contrast CLINICAL HISTORY: Reason for exam: abd pain. TECHNIQUE: Axial computed tomography images of the abdomen and pelvis with intravenous contrast. CTDI is 7.08 mGy and DLP is 338.37 mGy-cm. Automated exposure control was utilized for the study. A dose lowering technique was utilized adhering to the principles of ALARA. CONTRAST: Patient received 95 cc [id number] of IV contrast COMPARISON: CT abdomen and pelvis August 06, 2023. FINDINGS: Lung bases: Unremarkable. No mass. No consolidation. ABDOMEN: Liver: Hepatic steatosis. Gallbladder and bile ducts: Unremarkable. No calcified stones. No ductal dilation. Pancreas: Unremarkable. No mass. No ductal dilation. Spleen: Unremarkable. No splenomegaly. Adrenals: Unremarkable. No mass. Kidneys and ureters: Unremarkable. No solid mass. No hydronephrosis. Stomach and bowel: Moderate fecal retention. Wall thickening of small bowel, correlate for enteritis. No obstruction. PELVIS: Appendix: No findings to suggest acute appendicitis. Bladder: Wall thickening of the urinary bladder, concerning for UTI. Reproductive: Unremarkable as visualized. ABDOMEN and PELVIS: Intraperitoneal space: Unremarkable. No free air. No significant fluid collection. Bones/joints: Degenerative changes of the spine. No acute fracture. No dislocation. Soft tissues: Unremarkable. Vasculature: Atherosclerotic changes of the aorta. No abdominal aortic aneurysm. Lymph nodes: Unremarkable. No enlarged lymph nodes. Tubes, lines and devices: Pacemaker leads. IMPRESSION: 1. Moderate fecal retention (improving when compared to prior exam). Wall thickening of small bowel, correlate for enteritis. 2. Wall thickening of the urinary bladder, concerning for UTI. Electronically signed by: Ronny Head MD 11/04/23 21:41 PM
--- NOTE | 2023-11-14 20:02 | Communication Note ---
Date of Service: November 14, 2023 Patient crying a lot as per RN. Clozapine on hold due to pancytopenia. Zyprexa 1 dose now (Can restart Zyprexa at 2.5 mg at bedtime if patient has psychiatric symptoms as per AM provider note. Defer maintenance dosing to AM provider.)
[2023-11-14] MEDS: OLANZAPINE 2.5 MG TAB PO STA (20:34)
[2023-11-15 07:08] LABS: Basophils # (auto) 0.02 K/uL (0.00-0.20); Basophils % (auto) 0.3 %; Eosinophils # (auto) 0.01 K/uL (0.00-0.50); Eosinophils % (auto) 0.2 %; Hematocrit (blood only) 36.6 % (37.0-47.0); Hemoglobin 11.9 g/dl (12.0-16.0); Immature Granulocytes # (auto) 0.03 K/uL (0.01-0.20); Immature Granulocytes % (auto) 0.5 %; Lymphocytes # (auto) 1.71 K/uL (1.20-3.40); Lymphocytes % (auto) 25.9 %; Mean Corpuscular Hemoglobin 27.6 pg (25.0-34.0); Mean Corpuscular Hgb Conc 32.5 g/dL (32.0-36.0); Mean Corpuscular Volume 84.9 fL (80.0-100.0); Mean Platelet Volume 10.9 fL (9.4-12.4); Monocytes # (auto) 0.43 K/uL (0.11-0.59); Monocytes % (auto) 6.5 %; Neutrophils # (auto) 4.39 K/uL (1.40-6.50); Neutrophils % (auto) 66.6 %; Platelet Count 159 K/uL (130-400); RDW Coefficient of Variation 14.2 % (11.5-14.5); RDW Standard Deviation 43.7 fL (36.4-46.3); Red Blood Count 4.31 M/uL (4.20-5.40); White Blood Count 6.59 K/ul (4.8-10.8)
[2023-11-15 07:32] LABS: Albumin Globulin Ratio 2.1 (0.9-2); Albumin Level 3.9 gm/dl (3.4-5.0); BUN Creatinine Ratio 40.9 (10-20); Bilirubin,Total 0.3 mg/dl (0.2-1.0); Calcium 9.3 mg/dl (8.6-10.3); Creatinine Clr Calc Pharmacy 62.7 ml/min; Est GFR (African American) 100.9 ml/min; Globulin 1.9 gm/dl (2.5-4.0); Magnesium 2.2 mg/dl (1.7-2.4); Phosphorus 3.5 mg/dl (2.5-4.9); Total Protein 5.8 gm/dl (6.0-8.3)
--- NOTE | 2023-11-15 13:54 | Hospitalist Progress Note ---
Date of Service November 15, 2023 Assessment & Plan (1) Weakness: (2) Syncope: Plan: Pt is a 73 yo female with history of diabetes type 2, hypertension, dyslipidemia, hypothyroidism, brain tumor s/p resection, schizophrenia, migraine, anemia, recurrent UTIs who presented to the hospital after being discharged from [facility] on the day prior to admission. Patient noted to have hypotension, bradycardia for which antihypertensives were removed. She is currently awaiting guardianship hearing for placement. WEAKNESS, SYNCOPE LIKELY SECONDARY TO ORTHOSTATIC HYPOTENSION,POSSIBLE UNDERLYING SICK SINUS SYNDROME Patient was previously admitted to [facility] for pneumonia, respiratory failure s/p intubation, UTI, delirium, stercoral colitis from constipation (discharged 09/14/2023) And was observed to have bradycardia, metoprolol reduced in dose. While at [facility] rehab, patient noted to have borderline blood pressure and bradycardia. Amlodipine, lisinopril, metoprolol subsequently discontinued She was discharged from [facility] rehab the day prior to admission She presented with weakness and syncope in the setting of marginal blood pressure and sinus bradycardia in the 50s She had dry oral mucosa and low sodium indicating dehydration. CVA was ruled out Brain MRI - no acute CVA Cardiology was consulted- considering pacemaker placement. 09/26 - Received contact number from for Dimitris Peterson ([phone]) pt's nephew. He resides in [place]. He is willing to help with decision making. He was updated on her current and previous hospitalization. He understands cardiology is considering placing a pacemaker and is in agreement with the plan. 09/27 s/p PPM placement w/ EP Has remained stabled PM dressing changed by cardiology service PM function checked- appropriately functioning will need to f/u with [facility] T[facility] on discharge Febrile neutropeniaresolved Likely due to Clozapine Patient started to spike fever on 10/13 and 10/14 Chest x-ray no acute finding Pacemaker incision site without sign of infection Blood culture07/05 from 10/14/2023 growing gram positive bacilli. Repeat blood cx negative Urinalysis not suggestive of infection Was put on empiric antibiotics(Vancomycin and meropenem) --> ID evaluated 10/18, reports no concern of infection. Will monitor off antibiotic per ID recommendation.---> Remains afebrile Psychiatry evaluated; agree with holding clozapine. Can restart Zyprexa at 2.5 mg at bedtime if patient has psychiatric symptoms. Pt with reported crying spells, started on scheduled zyprexa 2.5mg qhs overnight on 11/13 Patient cannot ever be started on clozapine as per psychiatry. Possible UTI, rule out Patient reported lower abdominal pain on October 28, 2023 Urinalysis suggestive of infection Was initially placed on meropenem Urine culture3 types of organism; all moderate counts. Completed treatment, antibiotics discontinued NECK PAIN likely muscular Lidoderm Patch, Toradol PRN Resolved HEADACHE Possible migraine attack CT head no signs of acute process Imitrex as needed DIABETES TYPE 2 last a1c 5.9 05/2023 she has not been requiring sliding scale insulin Accu-Cheks and insulin d/c'd HYPERTENSION Chronic, stable Continue lisinopril HYPOTHYROIDISM TSH 2.2 continue levothyroxine BRAIN TUMOR S/P RESECTION SCHIZOPHRENIA Psychiatry evaluated, discontinue clozapine given low ANC/neutropenia. Continue to monitor for emergence of any psychiatric symptoms. May require alternative antipsychotics. It is recommended to trial olazapine 2.5mg at HS if symptoms recur. Pt with reported crying spells, started on scheduled zyprexa 2.5mg qhs on 11/13 Patient cannot ever be started on clozapine as per psychiatry. CONSTIPATION continue bowel regimen closely monitor, as pt has tendency for severe constipation (previous admission) DVT prophylaxis SQ Lovenox Dispo: CM following, guardianship paperwork in place, medically stable for dis charge to rehab once guardianship in place Admission and Anticipated Discharge Date Admission Date: September 25, 2023 Subjective Pt was seen sitting in chair near bedside. Was eating breakfast. Review of Systems Review of Systems: All systems reviewed & are unremarkable except as noted in Subjective Physical Exam Physical Exam: General: Alert. No acute distress Psych: Appropriate mood and affect Neuro: difficulty with movements in the bed HEENT: NC/AT CV: RRR Resp: Breath sounds clear bilaterally, no increased effort of breathing. Abdomen: Soft, diffusely tender, nondistended. No guarding. Extremities: No edema in lower extremities bilaterally. Results & Data Results & Data Vital Signs (Past 12 Hours) Vital Signs Temp Pulse Resp BP Pulse Ox O2 Del Method 11/15/23 07:43 36.7 C 60 16 144/77 H 98 Room Air
[2023-11-15] MEDS: OLANZapine ZYDIS 5 MG ORALLY DIS. TAB PO SCH (20:18)
--- NOTE | 2023-11-16 12:31 | Hospitalist Progress Note ---
Date of Service November 16, 2023 Assessment & Plan (1) Weakness: (2) Syncope: Plan: Pt is a 73 yo female with history of diabetes type 2, hypertension, dyslipidemia, hypothyroidism, brain tumor s/p resection, schizophrenia, migraine, anemia, recurrent UTIs who presented to the hospital after being discharged from [facility] on the day prior to admission. Patient noted to have hypotension, bradycardia for which antihypertensives were removed. She is currently awaiting guardianship hearing for placement. WEAKNESS, SYNCOPE LIKELY SECONDARY TO ORTHOSTATIC HYPOTENSION,POSSIBLE UNDERLYING SICK SINUS SYNDROME Patient was previously admitted to [facility] for pneumonia, respiratory failure s/p intubation, UTI, delirium, stercoral colitis from constipation (discharged 09/14/2023) And was observed to have bradycardia, metoprolol reduced in dose. While at [facility] rehab, patient noted to have borderline blood pressure and bradycardia. Amlodipine, lisinopril, metoprolol subsequently discontinued She was discharged from [facility] the day prior to admission She presented with weakness and syncope in the setting of marginal blood pressure and sinus bradycardia in the 50s She had dry oral mucosa and low sodium indicating dehydration. CVA was ruled out Brain MRI - no acute CVA Cardiology was consulted- considering pacemaker placement. 09/26 - Received contact number from for Dimitris Peterson ([phone]) pt's nephew. He resides in [place]. He is willing to help with decision making. He was updated on her current and previous hospitalization. He understands cardiology is considering placing a pacemaker and is in agreement with the plan. 09/27 s/p PPM placement w/ EP Has remained stabled PM dressing changed by cardiology service PM function checked- appropriately functioning will need to f/u with Cardiovascular Invasive Specialist on discharge Febrile neutropeniaresolved Likely due to Clozapine Patient started to spike fever on 10/13 and 10/14 Chest x-ray no acute finding Pacemaker incision site without sign of infection Blood culture07/05 from 10/14/2023 growing gram positive bacilli. Repeat blood cx negative Urinalysis not suggestive of infection Was put on empiric antibiotics(Vancomycin and meropenem) --> ID evaluated 10/18, reports no concern of infection. Will monitor off antibiotic per ID recommendation.---> Remains afebrile Psychiatry evaluated; agree with holding clozapine. Can restart Zyprexa at 2.5 mg at bedtime if patient has psychiatric symptoms. Pt with reported crying spells, started on scheduled zyprexa 2.5mg qhs overnight on 11/13 Patient cannot ever be started on clozapine as per psychiatry. Possible UTI, rule out Patient reported lower abdominal pain on October 28, 2023 Urinalysis suggestive of infection Was initially placed on meropenem Urine culture3 types of organism; all moderate counts. Completed treatment, antibiotics discontinued NECK PAIN likely muscular Lidoderm Patch, Toradol PRN Resolved HEADACHE Possible migraine attack CT head no signs of acute process Imitrex as needed DIABETES TYPE 2 last a1c 5.9 05/2023 she has not been requiring sliding scale insulin Accu-Cheks and insulin d/c'd HYPERTENSION Chronic, stable Continue lisinopril HYPOTHYROIDISM TSH 2.2 continue levothyroxine BRAIN TUMOR S/P RESECTION SCHIZOPHRENIA Psychiatry evaluated, discontinue clozapine given low ANC/neutropenia. Continue to monitor for emergence of any psychiatric symptoms. May require alternative antipsychotics. It is recommended to trial olazapine 2.5mg at HS if symptoms recur. Pt with reported crying spells, started on scheduled zyprexa 2.5mg qhs on 11/13 Patient cannot ever be started on clozapine as per psychiatry. CONSTIPATION continue bowel regimen closely monitor, as pt has tendency for severe constipation (previous admission) DVT prophylaxis SQ Lovenox Dispo: CM following, guardianship paperwork in place, medically stable for dis charge to rehab once guardianship in place Admission and Anticipated Discharge Date Admission Date: September 25, 2023 Subjective Pt was seen laying in bed. Per nursing, pt has been more lethargic today. Noted she has started nightly zyprexa. Also stating she was having abdominal pain. Per nursing has been having diarrhea-like BMs Review of Systems Review of Systems: All systems reviewed & are unremarkable except as noted in Subjective Physical Exam Physical Exam: General: Alert. No acute distress Psych: Appropriate mood and affect Neuro: difficulty with movements in the bed HEENT: NC/AT CV: RRR Resp: Breath sounds clear bilaterally, no increased effort of breathing. Abdomen: Soft, diffusely tender, nondistended. No guarding. Extremities: No edema in lower extremities bilaterally. Results & Data Results & Data Vital Signs (Past 12 Hours) Vital Signs Temp Pulse Resp BP Pulse Ox O2 Del Method 11/16/23 07:40 Room Air 11/16/23 07:14 36.3 C L 60 16 132/78 100 Room Air
--- NOTE | 2023-11-17 16:21 | Hospitalist Progress Note ---
Date of Service November 17, 2023 Assessment & Plan (1) Weakness: (2) Syncope: Plan: Pt is a 73 yo female with history of diabetes type 2, hypertension, dyslipidemia, hypothyroidism, brain tumor s/p resection, schizophrenia, migraine, anemia, recurrent UTIs who presented to the hospital after being discharged from [facility] on the day prior to admission. Patient noted to have hypotension, bradycardia for which antihypertensives were removed. She is currently awaiting guardianship hearing for placement. WEAKNESS, SYNCOPE LIKELY SECONDARY TO ORTHOSTATIC HYPOTENSION,POSSIBLE UNDERLYING SICK SINUS SYNDROME Patient was previously admitted to [facility] for pneumonia, respiratory failure s/p intubation, UTI, delirium, stercoral colitis from constipation (discharged 09/14/2023) And was observed to have bradycardia, metoprolol reduced in dose. While at [facility], patient noted to have borderline blood pressure and bradycardia. Amlodipine, lisinopril, metoprolol subsequently discontinued She was discharged from [facility] the day prior to admission She presented with weakness and syncope in the setting of marginal blood pressure and sinus bradycardia in the 50s She had dry oral mucosa and low sodium indicating dehydration. CVA was ruled out Brain MRI - no acute CVA Cardiology was consulted- considering pacemaker placement. 09/26 - Received contact number from for Dimitris Peterson ([phone]) pt's nephew. He resides in [place]. He is willing to help with decision making. He was updated on her current and previous hospitalization. He understands cardiology is considering placing a pacemaker and is in agreement with the plan. 09/27 s/p PPM placement w/ EP Has remained stabled PM dressing changed by cardiology service PM function checked- appropriately functioning will need to f/u with Bioinformaticist on discharge Febrile neutropeniaresolved Likely due to Clozapine Patient started to spike fever on 10/13 and 10/14 Chest x-ray no acute finding Pacemaker incision site without sign of infection Blood culture07/05 from 10/14/2023 growing gram positive bacilli. Repeat blood cx negative Urinalysis not suggestive of infection Was put on empiric antibiotics(Vancomycin and meropenem) --> ID evaluated 10/18, reports no concern of infection. Will monitor off antibiotic per ID recommendation.---> Remains afebrile Psychiatry evaluated; agree with holding clozapine. Can restart Zyprexa at 2.5 mg at bedtime if patient has psychiatric symptoms. Pt with reported crying spells, started on scheduled zyprexa 2.5mg qhs overnight on 11/13 Patient cannot ever be started on clozapine as per psychiatry. Possible UTI, rule out Patient reported lower abdominal pain on October 28, 2023 Urinalysis suggestive of infection Was initially placed on meropenem Urine culture3 types of organism; all moderate counts. Completed treatment, antibiotics discontinued NECK PAIN likely muscular Lidoderm Patch, Toradol PRN Resolved HEADACHE Possible migraine attack CT head no signs of acute process Imitrex as needed DIABETES TYPE 2 last a1c 5.9 05/2023 she has not been requiring sliding scale insulin Accu-Cheks and insulin d/c'd HYPERTENSION Chronic, stable Continue lisinopril HYPOTHYROIDISM TSH 2.2 continue levothyroxine BRAIN TUMOR S/P RESECTION SCHIZOPHRENIA Psychiatry evaluated, discontinue clozapine given low ANC/neutropenia. Continue to monitor for emergence of any psychiatric symptoms. May require alternative antipsychotics. It is recommended to trial olazapine 2.5mg at HS if symptoms recur. Pt with reported crying spells, started on scheduled zyprexa 2.5mg qhs on 11/13 Patient cannot ever be started on clozapine as per psychiatry. CONSTIPATION continue bowel regimen closely monitor, as pt has tendency for severe constipation (previous admission) DVT prophylaxis SQ Lovenox Dispo: CM following, guardianship paperwork in place, medically stable for dis charge to rehab once guardianship in place Admission and Anticipated Discharge Date Admission Date: September 25, 2023 Subjective Pt was seen while laying in bed eating. Denied abdominal pain or headache today. Review of Systems Review of Systems: All systems reviewed & are unremarkable except as noted in Subjective Physical Exam Physical Exam: General: Alert. No acute distress Psych: Appropriate mood and affect Neuro: difficulty with movements in the bed HEENT: NC/AT CV: RRR Resp: Breath sounds clear bilaterally, no increased effort of breathing. Abdomen: Soft, diffusely tender, nondistended. No guarding. Extremities: No edema in lower extremities bilaterally. Results & Data Results & Data Vital Signs (Past 12 Hours) Vital Signs Temp Pulse Resp BP Pulse Ox O2 Del Method 11/17/23 14:32 37.1 C 67 16 113/67 100 Room Air 11/17/23 07:40 Room Air 11/17/23 07:21 36.7 C 61 16 155/89 H 99 Room Air
[2023-11-18 07:41] LABS: Hematocrit (blood only) 34.9 % (37.0-47.0); Hemoglobin 11.4 g/dl (12.0-16.0); Mean Corpuscular Hemoglobin 27.8 pg (25.0-34.0); Mean Corpuscular Hgb Conc 32.7 g/dL (32.0-36.0); Mean Corpuscular Volume 85.1 fL (80.0-100.0); Mean Platelet Volume 10.6 fL (9.4-12.4); Platelet Count 158 K/uL (130-400); RDW Coefficient of Variation 14.7 % (11.5-14.5); RDW Standard Deviation 45.1 fL (36.4-46.3); White Blood Count 4.43 K/ul (4.8-10.8)
[2023-11-18 07:54] LABS: Albumin Level 3.8 gm/dl (3.4-5.0); BUN Creatinine Ratio 44.1 (10-20); Bilirubin,Total 0.3 mg/dl (0.2-1.0); Calcium 9.6 mg/dl (8.6-10.3); Creatinine Clr Calc Pharmacy 70.1 ml/min; Est GFR (African American) 104.6 ml/min; Est GFR (Non-African American) 90.3 ml/min; Globulin 1.9 gm/dl (2.5-4.0); Magnesium 1.9 mg/dl (1.7-2.4); Phosphorus 3.7 mg/dl (2.5-4.9); Potassium 4.4 mmol/L (3.5-5.1); Total Protein 5.7 gm/dl (6.0-8.3)
[2023-11-18 08:11] LABS: Basophils # (auto) 0.03 K/uL (0.00-0.20); Basophils % (auto) 0.7 %; Eosinophils # (auto) 0.01 K/uL (0.00-0.50); Eosinophils % (auto) 0.2 %; Lymphocytes # (auto) 2.41 K/uL (1.20-3.40); Lymphocytes % (auto) 54.4 %; Monocytes # (auto) 0.34 K/uL (0.11-0.59); Monocytes % (auto) 7.7 %; Neutrophils # (auto) 1.64 K/uL (1.40-6.50)
--- NOTE | 2023-11-18 09:29 | Hospitalist Progress Note ---
Date of Service November 18, 2023 Assessment & Plan (1) Weakness: (2) Syncope: Plan: Pt is a 73 yo female with history of diabetes type 2, hypertension, dyslipidemia, hypothyroidism, brain tumor s/p resection, schizophrenia, migraine, anemia, recurrent UTIs who presented to the hospital after being discharged from [facility] on the day prior to admission. Patient noted to have hypotension, bradycardia for which antihypertensives were removed. She is currently awaiting guardianship hearing for placement. WEAKNESS, SYNCOPE LIKELY SECONDARY TO ORTHOSTATIC HYPOTENSION,POSSIBLE UNDERLYING SICK SINUS SYNDROME Patient was previously admitted to [facility] for pneumonia, respiratory failure s/p intubation, UTI, delirium, stercoral colitis from constipation (discharged 09/14/2023) And was observed to have bradycardia, metoprolol reduced in dose. While at [facility], patient noted to have borderline blood pressure and bradycardia. Amlodipine, lisinopril, metoprolol subsequently discontinued She was discharged from [facility] the day prior to admission She presented with weakness and syncope in the setting of marginal blood pressure and sinus bradycardia in the 50s She had dry oral mucosa and low sodium indicating dehydration. CVA was ruled out Brain MRI - no acute CVA Cardiology was consulted- considering pacemaker placement. 09/26 - Received contact number from for Dimitris Peterson ([phone]) pt's nephew. He resides in [place]. He is willing to help with decision making. He was updated on her current and previous hospitalization. He understands cardiology is considering placing a pacemaker and is in agreement with the plan. 09/27 s/p PPM placement w/ EP Has remained stabled PM dressing changed by cardiology service PM function checked- appropriately functioning will need to f/u with Salesperson [employer] on discharge Febrile neutropeniaresolved Likely due to Clozapine Patient started to spike fever on 10/13 and 10/14 Chest x-ray no acute finding Pacemaker incision site without sign of infection Blood culture07/05 from 10/14/2023 growing gram positive bacilli. Repeat blood cx negative Urinalysis not suggestive of infection Was put on empiric antibiotics(Vancomycin and meropenem) --> ID evaluated 10/18, reports no concern of infection. Will monitor off antibiotic per ID recommendation.---> Remains afebrile Psychiatry evaluated; agree with holding clozapine. Can restart Zyprexa at 2.5 mg at bedtime if patient has psychiatric symptoms. Pt with reported crying spells, started on scheduled zyprexa 2.5mg qhs overnight on 11/13 Patient cannot ever be started on clozapine as per psychiatry. Possible UTI, rule out Patient reported lower abdominal pain on October 28, 2023 Urinalysis suggestive of infection Was initially placed on meropenem Urine culture3 types of organism; all moderate counts. Completed treatment, antibiotics discontinued NECK PAIN likely muscular Lidoderm Patch, Toradol PRN Resolved HEADACHE Possible migraine attack CT head no signs of acute process Imitrex as needed DIABETES TYPE 2 last a1c 5.9 05/2023 she has not been requiring sliding scale insulin Accu-Cheks and insulin d/c'd HYPERTENSION Chronic, stable Continue lisinopril HYPOTHYROIDISM TSH 2.2 continue levothyroxine BRAIN TUMOR S/P RESECTION SCHIZOPHRENIA Psychiatry evaluated, discontinue clozapine given low ANC/neutropenia. Continue to monitor for emergence of any psychiatric symptoms. May require alternative antipsychotics. It is recommended to trial olazapine 2.5mg at HS if symptoms recur. Pt with reported crying spells, started on scheduled zyprexa 2.5mg qhs on 11/13 Patient cannot ever be started on clozapine as per psychiatry. CONSTIPATION continue bowel regimen closely monitor, as pt has tendency for severe constipation (previous admission) DVT prophylaxis SQ Lovenox Dispo: CM following, guardianship paperwork in place, medically stable for dis charge to rehab once guardianship in place Admission and Anticipated Discharge Date Admission Date: September 25, 2023 Subjective Pt was seen sitting in chair beside her bed. Not answering questions today, shakes her head in response. Denied abdominal pain or headache today. Review of Systems Review of Systems: All systems reviewed & are unremarkable except as noted in Subjective Physical Exam Physical Exam: General: Alert. No acute distress Psych: Appropriate mood and affect Neuro: difficulty with movements HEENT: NC/AT CV: RRR Resp: Breath sounds clear bilaterally, no increased effort of breathing. Abdomen: Soft, diffusely tender, nondistended. No guarding. Extremities: No edema in lower extremities bilaterally. Results & Data Results & Data Vital Signs (Past 12 Hours) Vital Signs Temp Pulse Resp BP Pulse Ox O2 Del Method 11/18/23 07:39 36.4 C L 60 16 143/81 H 100 Room Air 11/17/23 21:30 Room Air
[2023-11-19 09:17] LABS: Hematocrit (blood only) 36.2 % (37.0-47.0); Hemoglobin 11.6 g/dl (12.0-16.0); Mean Corpuscular Hemoglobin 27.4 pg (25.0-34.0); Mean Corpuscular Volume 85.4 fL (80.0-100.0); Mean Platelet Volume 10.7 fL (9.4-12.4); Platelet Count 184 K/uL (130-400); RDW Coefficient of Variation 14.6 % (11.5-14.5); RDW Standard Deviation 45.2 fL (36.4-46.3); Red Blood Count 4.24 M/uL (4.20-5.40); White Blood Count 4.32 K/ul (4.8-10.8)
[2023-11-19 09:35] LABS: Basophils # (auto) 0.04 K/uL (0.00-0.20); Basophils % (auto) 0.9 %; Immature Granulocytes # (auto) 0.01 K/uL (0.01-0.20); Immature Granulocytes % (auto) 0.2 %; Lymphocytes # (auto) 2.24 K/uL (1.20-3.40); Lymphocytes % (auto) 51.9 %; Monocytes # (auto) 0.29 K/uL (0.11-0.59); Monocytes % (auto) 6.7 %; Neutrophils # (auto) 1.74 K/uL (1.40-6.50); Neutrophils % (auto) 40.3 %
[2023-11-19 09:36] LABS: Albumin Level 4.1 gm/dl (3.4-5.0); BUN Creatinine Ratio 33.8 (10-20); Bilirubin,Total 0.4 mg/dl (0.2-1.0); Calcium 9.6 mg/dl (8.6-10.3); Creatinine Clr Calc Pharmacy 53.7 ml/min; Est GFR (African American) 88.2 ml/min; Est GFR (Non-African American) 76.1 ml/min; Globulin 2.1 gm/dl (2.5-4.0); Magnesium 1.7 mg/dl (1.7-2.4); Phosphorus 3.8 mg/dl (2.5-4.9); Potassium 3.8 mmol/L (3.5-5.1); Total Protein 6.2 gm/dl (6.0-8.3)
--- NOTE | 2023-11-19 14:55 | Hospitalist Progress Note ---
Date of Service November 19, 2023 Assessment & Plan (1) Weakness: (2) Syncope: Plan: Pt is a 73 yo female with history of diabetes type 2, hypertension, dyslipidemia, hypothyroidism, brain tumor s/p resection, schizophrenia, migraine, anemia, recurrent UTIs who presented to the hospital after being discharged from [facility] on the day prior to admission. Patient noted to have hypotension, bradycardia for which antihypertensives were removed. She is currently awaiting guardianship hearing for placement. Per hearing scheduled for December 04. WEAKNESS, SYNCOPE LIKELY SECONDARY TO ORTHOSTATIC HYPOTENSION,POSSIBLE UNDERLYING SICK SINUS SYNDROME Patient was previously admitted to [facility] for pneumonia, respiratory failure s/p intubation, UTI, delirium, stercoral colitis from [facility] (discharged 09/14/2023) And was observed to have bradycardia, metoprolol reduced in dose. While at [facility], patient noted to have borderline blood pressure and bradycardia. Amlodipine, lisinopril, metoprolol subsequently discontinued She was discharged from [facility] the day prior to admission She presented with weakness and syncope in the setting of marginal blood pressure and sinus bradycardia in the 50s She had dry oral mucosa and low sodium indicating dehydration. CVA was ruled out Brain MRI - no acute CVA Cardiology was consulted- considering pacemaker placement. 09/26 - Received contact number from for Dimitris Nicholas ([phone]) pt's nephew. He resides in [place]. He is willing to help with decision making. He was updated on her current and previous hospitalization. He understands cardiology is considering placing a pacemaker and is in agreement with the plan. 09/27 s/p PPM placement w/ EP Has remained stabled PM dressing changed by cardiology service PM function checked- appropriately functioning will need to f/u with Groundskeeper Supervisor on discharge Febrile neutropeniaresolved Likely due to Clozapine Patient started to spike fever on 10/13 and 10/14 Chest x-ray no acute finding Pacemaker incision site without sign of infection Blood culture07/05 from 10/14/2023 growing gram positive bacilli. Repeat blood cx negative Urinalysis not suggestive of infection Was put on empiric antibiotics(Vancomycin and meropenem) --> ID evaluated 10/18, reports no concern of infection. Will monitor off antibiotic per ID re commendation.---> Remains afebrile Psychiatry evaluated; agree with holding clozapine. Can restart Zyprexa at 2.5 mg at bedtime if patient has psychiatric symptoms. Pt with reported crying spells, started on scheduled zyprexa 2.5mg qhs overnight on 11/13 Patient cannot ever be started on clozapine as per psychiatry. Possible UTI, rule out Patient reported lower abdominal pain on October 28, 2023 Urinalysis suggestive of infection Was initially placed on meropenem Urine culture3 types of organism; all moderate counts. Completed treatment, antibiotics discontinued NECK PAIN likely muscular Lidoderm Patch, Toradol PRN Resolved HEADACHE Possible migraine attack CT head no signs of acute process Imitrex as needed DIABETES TYPE 2 last a1c 5.9 05/2023 she has not been requiring sliding scale insulin Accu-Cheks and insulin d/c'd HYPERTENSION Chronic, stable Continue lisinopril HYPOTHYROIDISM TSH 2.2 continue levothyroxine BRAIN TUMOR S/P RESECTION SCHIZOPHRENIA Psychiatry evaluated, discontinue clozapine given low ANC/neutropenia. Continue to monitor for emergence of any psychiatric symptoms. May require alternative antipsychotics. It is recommended to trial olazapine 2.5mg at HS if symptoms recur. Pt with reported crying spells, started on scheduled zyprexa 2.5mg qhs on 11/13 Patient cannot ever be started on clozapine as per psychiatry. CONSTIPATION continue bowel regimen closely monitor, as pt has tendency for severe constipation (previous admission) DVT prophylaxis SQ Lovenox Dispo: CM following, guardianship paperwork in place, medically stable for discharge to rehab once guardianship in place Admission and Anticipated Discharge Date Admission Date: September 25, 2023 Subjective Pt was seen sitting in chair beside her bed. Denied abdominal pain or headache today. Review of Systems Review of Systems: All systems reviewed & are unremarkable except as noted in Subjective Physical Exam Physical Exam: General: Alert. No acute distress Psych: Appropriate mood and affect Neuro: difficulty with movements HEENT: NC/AT CV: RRR Resp: Breath sounds clear bilaterally, no increased effort of breathing. Abdomen: Soft, diffusely tender, nondistended. No guarding. Extremities: No edema in lower extremities bilaterally. Results & Data Results & Data Vital Signs (Past 12 Hours) Vital Signs Temp Pulse Resp BP Pulse Ox O2 Del Method 11/19/23 14:34 36.6 C 59 L 16 115/70 99 Room Air 11/19/23 07:44 36.6 C 60 16 142/77 H 98 Room Air 11/19/23 07:15 Room Air
[2023-11-20 07:15] LABS: Hemoglobin 11.6 g/dl (12.0-16.0); Mean Corpuscular Hemoglobin 27.8 pg (25.0-34.0); Mean Corpuscular Hgb Conc 33.1 g/dL (32.0-36.0); Mean Corpuscular Volume 83.7 fL (80.0-100.0); Mean Platelet Volume 10.4 fL (9.4-12.4); Platelet Count 179 K/uL (130-400); RDW Coefficient of Variation 14.6 % (11.5-14.5); RDW Standard Deviation 44.6 fL (36.4-46.3); Red Blood Count 4.18 M/uL (4.20-5.40); White Blood Count 3.82 K/ul (4.8-10.8)
[2023-11-20 07:33] LABS: Albumin Globulin Ratio 2.1 (0.9-2); BUN Creatinine Ratio 41.4 (10-20); Bilirubin,Total 0.3 mg/dl (0.2-1.0); Calcium 9.9 mg/dl (8.6-10.3); Creatinine Clr Calc Pharmacy 59.1 ml/min; Est GFR (African American) 98.9 ml/min; Est GFR (Non-African American) 85.4 ml/min; Globulin 1.9 gm/dl (2.5-4.0); Phosphorus 3.5 mg/dl (2.5-4.9); Potassium 3.9 mmol/L (3.5-5.1); Total Protein 5.9 gm/dl (6.0-8.3)
[2023-11-20 07:40] LABS: Basophils # (auto) 0.03 K/uL (0.00-0.20); Basophils % (auto) 0.8 %; Eosinophils # (auto) 0.01 K/uL (0.00-0.50); Eosinophils % (auto) 0.3 %; Immature Granulocytes # (auto) 0.01 K/uL (0.01-0.20); Immature Granulocytes % (auto) 0.3 %; Lymphocytes % (auto) 60.2 %; Monocytes # (auto) 0.32 K/uL (0.11-0.59); Monocytes % (auto) 8.4 %; Neutrophils # (auto) 1.15 K/uL (1.40-6.50)
--- NOTE | 2023-11-20 12:26 | Hospitalist Progress Note ---
Date of Service November 20, 2023 Assessment & Plan (1) Weakness: (2) Syncope: Plan: Pt is a 73 yo female with history of diabetes type 2, hypertension, dyslipidemia, hypothyroidism, brain tumor s/p resection, schizophrenia, migraine, anemia, recurrent UTIs who presented to the hospital after being discharged from [facility] on the day prior to admission. Patient noted to have hypotension, bradycardia for which antihypertensives were removed. She is currently awaiting guardianship hearing for placement. Per hearing scheduled for December 04. WEAKNESS, SYNCOPE LIKELY SECONDARY TO ORTHOSTATIC HYPOTENSION,POSSIBLE UNDERLYING SICK SINUS SYNDROME Patient was previously admitted to [facility] for pneumonia, respiratory failure s/p intubation, UTI, delirium, stercoral colitis from [facility] (discharged 09/14/2023) And was observed to have bradycardia, metoprolol reduced in dose. While at [facility], patient noted to have borderline blood pressure and bradycardia. Amlodipine, lisinopril, metoprolol subsequently discontinued She was discharged from [facility] the day prior to admission She presented with weakness and syncope in the setting of marginal blood pressure and sinus bradycardia in the 50s She had dry oral mucosa and low sodium indicating dehydration. CVA was ruled out Brain MRI - no acute CVA Cardiology was consulted- considering pacemaker placement. 09/26 - Received contact number from for Dimitris Nicholas ([phone]) pt's nephew. He resides in [place]. He is willing to help with decision making. He was updated on her current and previous hospitalization. He understands cardiology is considering placing a pacemaker and is in agreement with the plan. 09/27 s/p PPM placement w/ EP Has remained stabled PM dressing changed by cardiology service PM function checked- appropriately functioning will need to f/u with Drug Purchaser on discharge Febrile neutropeniaresolved Likely due to Clozapine Patient started to spike fever on 10/13 and 10/14 Chest x-ray no acute finding Pacemaker incision site without sign of infection Blood culture07/05 from 10/14/2023 growing gram positive bacilli. Repeat blood cx negative Urinalysis not suggestive of infection Was put on empiric antibiotics(Vancomycin and meropenem) --> ID evaluated 10/18, reports no concern of infection. Will monitor off antibiotic per ID re commendation.---> Remains afebrile Psychiatry evaluated; agree with holding clozapine. Can restart Zyprexa at 2.5 mg at bedtime if patient has psychiatric symptoms. Pt with reported crying spells, started on scheduled zyprexa 2.5mg qhs overnight on 11/13 Patient cannot ever be started on clozapine as per psychiatry. Possible UTI, rule out Patient reported lower abdominal pain on October 28, 2023 Urinalysis suggestive of infection Was initially placed on meropenem Urine culture3 types of organism; all moderate counts. Completed treatment, antibiotics discontinued NECK PAIN likely muscular Lidoderm Patch, Toradol PRN Resolved HEADACHE Possible migraine attack CT head no signs of acute process Imitrex as needed DIABETES TYPE 2 last a1c 5.9 05/2023 she has not been requiring sliding scale insulin Accu-Cheks and insulin d/c'd HYPERTENSION Chronic, stable Continue lisinopril HYPOTHYROIDISM TSH 2.2 continue levothyroxine BRAIN TUMOR S/P RESECTION SCHIZOPHRENIA Psychiatry evaluated, discontinue clozapine given low ANC/neutropenia. Continue to monitor for emergence of any psychiatric symptoms. May require alternative antipsychotics. It is recommended to trial olazapine 2.5mg at HS if symptoms recur. Pt with reported crying spells, started on scheduled zyprexa 2.5mg qhs on 11/13 Patient cannot ever be started on clozapine as per psychiatry. CONSTIPATION continue bowel regimen closely monitor, as pt has tendency for severe constipation (previous admission) DVT prophylaxis SQ Lovenox Dispo: CM following, guardianship paperwork in place, medically stable for discharge to rehab once guardianship in place Admission and Anticipated Discharge Date Admission Date: September 25, 2023 Subjective Pt was seen sitting in chair beside her bed. Denied abdominal pain or headache today. Review of Systems Review of Systems: All systems reviewed & are unremarkable except as noted in Subjective Physical Exam Physical Exam: General: Alert. No acute distress Psych: Appropriate mood and affect Neuro: difficulty with movements HEENT: NC/AT CV: RRR Resp: Breath sounds clear bilaterally, no increased effort of breathing. Abdomen: Soft, diffusely tender, nondistended. No guarding. Extremities: No edema in lower extremities bilaterally. Results & Data Results & Data Vital Signs (Past 12 Hours) Vital Signs Temp Pulse Resp BP Pulse Ox O2 Del Method 11/20/23 08:01 36.5 C 70 16 142/80 H 99 Room Air 11/20/23 07:25 Room Air
[2023-11-21] MEDS: SOD PHOSPHATE/SOD BIPHOSPHATE ENEMA 132 ML BTL PR STA (11:05)
[2023-11-21] MEDS ORDERED: CHLORASEPTIC (PHENOL) 1.4% SOLN 180 ML BTL MT PRN (12:51)
--- NOTE | 2023-11-21 13:00 | Hospitalist Progress Note ---
Date of Service November 21, 2023 Assessment & Plan (1) Weakness: (2) Syncope: Plan: Pt is a 73 yo female with history of diabetes type 2, hypertension, dyslipidemia, hypothyroidism, brain tumor s/p resection, schizophrenia, migraine, anemia, recurrent UTIs who presented to the hospital after being discharged from [facility] on the day prior to admission. Patient noted to have hypotension, bradycardia for which antihypertensives were removed. She is currently awaiting guardianship hearing for placement. Per hearing scheduled for December 04. WEAKNESS, SYNCOPE LIKELY SECONDARY TO ORTHOSTATIC HYPOTENSION,POSSIBLE UNDERLYING SICK SINUS SYNDROME Patient was previously admitted to [facility] for pneumonia, respiratory failure s/p intubation, UTI, delirium, [place] [facility] [place]23) And was observed to have bradycardia, metoprolol reduced in dose. [facility], patient noted to have borderline blood pressure and bradycardia. Amlodipine, lisinopril, metoprolol subsequently discontinued [facility] to [facility] She presented with weakness and syncope in the setting of marginal blood pressure and sinus bradycardia in the 50s She had dry oral mucosa and low sodium indicating dehydration. CVA was ruled out Brain MRI - no acute CVA Cardiology was consulted- considering pacemaker placement. 09/26 - Received contact number from for Dimitris Nicholas ([phone]) pt's nephew. He resides in [place]. He is willing to help with decision making. He was updated on her current and previous hospitalization. He understands cardiology is considering placing a pacemaker and is in agreement with the plan. 09/27 s/p PPM placement w/ EP Has remained stabled PM dressing changed by cardiology service PM function checked- appropriately functioning will need to f/u with City Engineer on discharge Febrile neutropeniaresolved Likely due to Clozapine Patient started to spike fever on 10/13 and 10/14 Chest x-ray no acute finding Pacemaker incision site without sign of infection Blood culture07/05 from 10/14/2023 growing gram positive bacilli. Repeat blood cx negative Urinalysis not suggestive of infection Was put on empiric antibiotics(Vancomycin and meropenem) --> ID evaluated 10/18, reports no concern of infection. Will monitor off antibiotic per ID re commendation.---> Remains afebrile Psychiatry evaluated; agree with holding clozapine. Can restart Zyprexa at 2.5 mg at bedtime if patient has psychiatric symptoms. Pt with reported crying spells, started on scheduled zyprexa 2.5mg qhs overnight on 11/13 Patient cannot ever be started on clozapine as per psychiatry. Possible UTI, rule out Patient reported lower abdominal pain on October 28, 2023 Urinalysis suggestive of infection Was initially placed on meropenem Urine culture3 types of organism; all moderate counts. Completed treatment, antibiotics discontinued NECK PAIN likely muscular Lidoderm Patch, Toradol PRN Resolved HEADACHE Possible migraine attack CT head no signs of acute process Imitrex as needed SORE THROAT likely allergy vs viral will place throat spray prn DIABETES TYPE 2 last a1c 5.9 05/2023 she has not been requiring sliding scale insulin Accu-Cheks and insulin d/c'd HYPERTENSION Chronic, stable Continue lisinopril HYPOTHYROIDISM TSH 2.2 continue levothyroxine BRAIN TUMOR S/P RESECTION SCHIZOPHRENIA Psychiatry evaluated, discontinue clozapine given low ANC/neutropenia. Continue to monitor for emergence of any psychiatric symptoms. May require alternative antipsychotics. It is recommended to trial olazapine 2.5mg at HS if symptoms recur. Pt with reported crying spells, started on scheduled zyprexa 2.5mg qhs on 11/13 Patient cannot ever be started on clozapine as per psychiatry. CONSTIPATION continue bowel regimen Will give Fleet enema x 1 today closely monitor, as pt has tendency for severe constipation (previous admission) DVT prophylaxis SQ Lovenox Dispo: CM following, guardianship paperwork in place, medically stable for discharge to rehab once guardianship in place A total of 45 minutes was spent coordinating, documenting, and providing care for this patient excluding time spent in the performance of separately billed services. This included personally viewing all current laboratories and imaging studies, medication reconciliation, outpatient chart review, and discussion with specialists. Admission and Anticipated Discharge Date Admission Date: September 25, 2023 Supervising Physician Co-Signing Physician Notes Pt seen and examined by me , care coordinated w/ Trell Becerra PA-C, pls refer to her note above for further detail. Pt is currently sitting up in chair in NAD. Her only complaint is abdominal pain and she has not had any BM for several days. She has tendency to have severe constipation (previous admission) despite being on bowel regimen. Her abdomen is soft but somewhat distended. Plan for enema/ suppository. cont. to closely monitor. MD Tsering Subjective Patient was seen and examined in 378. Follow-up weakness. She complains of a sore throat this morning as well as some mild abdominal pain. Nursing reports patient complaining of abdominal pain despite bowel regimen and requesting Fleet enema. Patient also complains of a watery nose. She denies fever, chills, sweats, chest pain, shortness of breath, nausea or vomiting. Review of Systems Review of Systems: All systems reviewed & are unremarkable except as noted in HPI & below Physical Exam Physical Exam: Gen: Thin, elderly, F, sitting up in bedside chair, NAD, A&O x3 basics only HEENT: Normocephalic, atraumatic, conjunctivae moist, sclerae anicteric, mucous membranes moist. Lung: Clear to Auscultation bilaterally, no wheezes/rales/rhonchi Heart: Regular rate, regular rhythm, no murmurs, rubs, or gallops Abdomen: Soft, NT, mild distension to abd +BS x 4 Extremities: No edema Skin: Warm, no rash, negative turgor. Results & Data Results & Data Vital Signs (Past 12 Hours) Vital Signs Temp Pulse Resp BP Pulse Ox O2 Del Method 11/21/23 07:16 36.6 C 61 14 162/77 H 99 Room Air Medications Administered Current Inpatient Medications Acetaminophen (Acetaminophen 325 Mg Tab) 650 mg PO Q6H JAMEL Stop: 12/12/23 19:59 Last Admin: 11/21/23 07:45 Dose: 650 mg Aspirin (Aspirin 81 Mg Chew) 81 mg PO DAILY JAMEL Stop: 11/26/23 08:59 Last Admin: 11/21/23 07:43 Dose: 81 mg Atorvastatin Calcium (Atorvastatin 20 Mg Tab) 20 mg PO QAM J[facility]EL Stop: 11/26/23 08:59 Last Admin: 11/21/23 07:45 Dose: 20 mg Dextrose (Dextrose 50% 50 Ml Syringe) 25 - 50 ml IV UD PRN; Protocol PRN Reason: Hypoglycemia Protocol Stop: 11/25/23 16:56 Fluticasone Propionate (Fluticasone Propionate Na Spr 16 Gm Btl) 2 sprays NA DAILY JAMEL Stop: 11/26/23 08:59 Last Admin: 11/21/23 07:44 Dose: 2 sprays Glucagon (Glucagon For Inj 1 Mg Vial) 1 mg SQ UD PRN; Protocol PRN Reason: Hypoglycemia Protocol Stop: 11/25/23 16:56 Glucose (Glucose 40% Gel 15 Gm Tube) 15 - 30 gm PO UD PRN; Protocol PRN Reason: Hypoglycemia Protocol Stop: 11/25/23 16:56 Glucose (Glucose 10 Tab/Tube) 4 - 8 tab PO UD PRN; Protocol PRN Reason: Hypoglycemia Treatment Stop: 11/25/23 16:56 Promethazine HCl 6.25 mg/ (Sodium Chloride) 50.25 mls @ 201 mls/hr IV Q6H PRN PRN Reason: Nausea And Vomiting Stop: 12/04/23 20:25 Levothyroxine Sodium (Levothyroxine Sodium 50 Mcg Tablet) 50 mcg PO DAILYBB [facility] Stop: 11/26/23 06:29 Last Admin: 11/21/23 05:29 Dose: 50 mcg Magnesium Hydroxide (Magnesium Hydroxide Susp 30 Ml Udc) 30 ml PO BID [facility] Stop: 12/07/23 20:59 Last Admin: 11/21/23 07:44 Dose: 30 ml Magnesium Oxide (Magnesium Oxide 400 Mg Tab) 400 mg PO QAM [facility] Stop: 11/26/23 08:59 Last Admin: 11/21/23 07:44 Dose: 400 mg Miscellaneous (Carbohydrates For Hypoglycemia ) 15 - 30 gm PO UD PRN PRN Reason: Hypoglycemia Protocol Stop: 11/25/23 16:56 Olanzapine (Olanzapine Zydis 5 Mg Orally Dis. Tab) 2.5 mg PO HS [facility] Stop: 12/15/23 20:59 Last Admin: 11/20/23 20:40 Dose: 2.5 mg Pantoprazole Sodium (Pantoprazole 40 Mg Tab) 40 mg PO QAM [facility] Stop: 11/26/23 08:59 Last Admin: 11/21/23 07:44 Dose: 40 mg Phenol (Chloraseptic (Phenol) 1.4% Soln 180 Ml Btl) 1 sprays [place] QID PRN PRN Reason: odynophagia Stop: 12/21/23 12:50 Polyethylene Glycol (Polyethylene (Miralax) 17 Gm Pack) 17 gm PO BID [facility] Stop: 11/30/23 20:59 Last Admin: 11/21/23 07:44 Dose: 17 gm Potassium Chloride (Potassium Chloride 10 Meq Tabcr) 10 meq PO BID [facility] Stop: 11/25/23 20:59 Last Admin: 11/21/23 07:43 Dose: 10 meq Senna/Docusate Sodium (Docusate Sodium/Senna 50/8.6mg Tab) 1 tab PO BID [facility] Stop: 12/05/23 01:04 Last Admin: 11/21/23 07:46 Dose: 1 tab Simethicone (Simethicone 40 Mg/0.6 Ml 30ml) 80 mg PO Q6H PRN PRN Reason: Flatulence Stop: 12/05/23 16:11
[2023-11-21] MEDS ORDERED: bisacodyL 10 MG SUPP PR STA (13:07)
[2023-11-21] MEDS: POLYETHYLENE (MIRALAX) 17 GM PACK PO SCH (13:48)
[2023-11-21] MEDS ORDERED: Nursing to Pharmacy Communication SCH (17:00)
[2023-11-21] MEDS: bisacodyL 10 MG SUPP PR STA (17:22)
--- NOTE | 2023-11-22 17:08 | Hospitalist Progress Note ---
Date of Service November 22, 2023 Assessment & Plan (1) Weakness: (2) Syncope: Plan: Pt is a 73 yo female with history of diabetes type 2, hypertension, dyslipidemia, hypothyroidism, brain tumor s/p resection, schizophrenia, migraine, anemia, recurrent UTIs who presented to the hospital after being discharged from [facility] on the day prior to admission. Patient noted to have hypotension, bradycardia for which antihypertensives were removed. She is currently awaiting guardianship hearing for placement. Per hearing scheduled for December 04. WEAKNESS, SYNCOPE LIKELY SECONDARY TO ORTHOSTATIC HYPOTENSION,POSSIBLE UNDERLYING SICK SINUS SYNDROME Patient was previously admitted to [facility] for pneumonia, respiratory failure s/p intubation, UTI, delirium, stercoral colitis from [facility] (discharged 09/14/2023) And was observed to have bradycardia, metoprolol reduced in dose. While at [facility] rehab, patient noted to have borderline blood pressure and bradycardia. Amlodipine, lisinopril, metoprolol subsequently discontinued She was discharged from [facility] rehab the day prior to admission She presented with weakness and syncope in the setting of marginal blood pressure and sinus bradycardia in the 50s She had dry oral mucosa and low sodium indicating dehydration. CVA was ruled out Brain MRI - no acute CVA Cardiology was consulted- considering pacemaker placement. 09/26 - Received contact number from for Dimitris Nicholas ([phone]) pt's nephew. He resides in [place]. He is willing to help with decision making. He was updated on her current and previous hospitalization. He understands cardiology is considering placing a pacemaker and is in agreement with the plan. 09/27 s/p PPM placement w/ EP Has remained stabled PM dressing changed by cardiology service PM function checked- appropriately functioning will need to f/u with Nurses Supervisor on discharge Febrile neutropeniaresolved Likely due to Clozapine Patient started to spike fever on 10/13 and 10/14 Chest x-ray no acute finding Pacemaker incision site without sign of infection Blood culture07/05 from 10/14/2023 growing gram positive bacilli. Repeat blood cx negative Urinalysis not suggestive of infection Was put on empiric antibiotics(Vancomycin and meropenem) --> ID evaluated 10/18, reports no concern of infection. Will monitor off antibiotic per ID r ecommendation.---> Remains afebrile Psychiatry evaluated; agree with holding clozapine. Can restart Zyprexa at 2.5 mg at bedtime if patient has psychiatric symptoms. Pt with reported crying spells, started on scheduled zyprexa 2.5mg qhs overnight on 11/13 Patient cannot ever be started on clozapine as per psychiatry. Possible UTI, rule out Patient reported lower abdominal pain on October 28, 2023 Urinalysis suggestive of infection Was initially placed on meropenem Urine culture3 types of organism; all moderate counts. Completed treatment, antibiotics discontinued NECK PAIN likely muscular Lidoderm Patch, Toradol PRN Resolved HEADACHE Possible migraine attack CT head no signs of acute process Imitrex as needed SORE THROAT likely allergy vs viral will place throat spray prn DIABETES TYPE 2 last a1c 5.9 05/2023 she has not been requiring sliding scale insulin Accu-Cheks and insulin d/c'd HYPERTENSION Chronic, stable Continue lisinopril HYPOTHYROIDISM TSH 2.2 continue levothyroxine BRAIN TUMOR S/P RESECTION SCHIZOPHRENIA Psychiatry evaluated, discontinue clozapine given low ANC/neutropenia. Continue to monitor for emergence of any psychiatric symptoms. May require alternative antipsychotics. It is recommended to trial olazapine 2.5mg at HS if symptoms recur. Pt with reported crying spells, started on scheduled zyprexa 2.5mg qhs on 11/13 Patient cannot ever be started on clozapine as per psychiatry. CONSTIPATION continue bowel regimen closely monitor, as pt has tendency for severe constipation (previous admission) DVT prophylaxis SQ Lovenox Dispo: CM following, guardianship paperwork in place, medically stable for discharge to rehab once guardianship in place Admission and Anticipated Discharge Date Admission Date: September 25, 2023 Subjective Pt seen in follow up + some mild abdominal pain Sitting in chair in NAD denies fever, chills, chest pain, shortness of breath, nausea or vomiting had BM yesterday after enema/ suppository Review of Systems Review of Systems: All systems reviewed & are unremarkable except as noted in Subjective Physical Exam Physical Exam: General- WD/WN F in NAD Head- atraumatic Eyes- PERRL, EOMI, anicteric Neck- supple, no JVD Lungs- clear to auscultation, no rales/wheezes Heart- rrr Abdomen- normal bowel sounds, nondistended, soft, nontender Extremities- no pretibial edema, moves extremities Neuro- alert, able to answer simple questions appropriately however has poor memory, speech fluent, no facial asymmetry, moves extremities Skin- warm & dry Results & Data Results & Data Vital Signs (Past 12 Hours) Vital Signs Temp Pulse Resp BP Pulse Ox O2 Del Method 11/22/23 15:32 36.8 C 60 16 111/62 99 Room Air 11/22/23 08:46 36.4 C L 61 16 151/86 H 100 Room Air Medications Administered Current Inpatient Medications Acetaminophen (Acetaminophen 325 Mg Tab) 650 mg PO Q6H [facility] Stop: 12/12/23 19:59 Last Admin: 11/22/23 14:45 Dose: 650 mg Aspirin (Aspirin 81 Mg Chew) 81 mg PO DAILY [facility] Stop: 11/26/23 08:59 Last Admin: 11/22/23 08:19 Dose: 81 mg Atorvastatin Calcium (Atorvastatin 20 Mg Tab) 20 mg PO QAM [facility] Stop: 11/26/23 08:59 Last Admin: 11/22/23 08:19 Dose: 20 mg Dextrose (Dextrose 50% 50 Ml Syringe) 25 - 50 ml IV UD PRN; Protocol PRN Reason: Hypoglycemia Protocol Stop: 11/25/23 16:56 Fluticasone Propionate (Fluticasone Propionate Na Spr 16 Gm Btl) 2 sprays NA DAILY [facility] Stop: 11/26/23 08:59 Last Admin: 11/22/23 08:20 Dose: 2 sprays Glucagon (Glucagon For Inj 1 Mg Vial) 1 mg SQ UD PRN; Protocol PRN Reason: Hypoglycemia Protocol Stop: 11/25/23 16:56 Glucose (Glucose 40% Gel 15 Gm Tube) 15 - 30 gm PO UD PRN; Protocol PRN Reason: Hypoglycemia Protocol Stop: 11/25/23 16:56 Glucose (Glucose 10 Tab/Tube) 4 - 8 tab PO UD PRN; Protocol PRN Reason: Hypoglycemia Treatment Stop: 11/25/23 16:56 Promethazine HCl 6.25 mg/ (Sodium Chloride) 50.25 mls @ 201 mls/hr IV Q6H PRN PRN Reason: Nausea And Vomiting Stop: 12/04/23 20:25 Levothyroxine Sodium (Levothyroxine Sodium 50 Mcg Tablet) 50 mcg PO DAILYBB [facility] Stop: 11/26/23 06:29 Last Admin: 11/22/23 05:53 Dose: 50 mcg Magnesium Hydroxide (Magnesium Hydroxide Susp 30 Ml Udc) 30 ml PO BID [facility] Stop: 12/07/23 20:59 Last Admin: 11/22/23 08:20 Dose: 30 ml Magnesium Oxide (Magnesium Oxide 400 Mg Tab) 400 mg PO QAM [facility] Stop: 11/26/23 08:59 Last Admin: 11/22/23 08:20 Dose: 400 mg Miscellaneous (Carbohydrates For Hypoglycemia ) 15 - 30 gm PO UD PRN PRN Reason: Hypoglycemia Protocol Stop: 11/25/23 16:56 Olanzapine (Olanzapine Zydis 5 Mg Orally Dis. Tab) 2.5 mg PO HS [facility] Stop: 12/15/23 20:59 Last Admin: 11/21/23 21:19 Dose: 2.5 mg Pantoprazole Sodium (Pantoprazole 40 Mg Tab) 40 mg PO QAM [facility] Stop: 11/26/23 08:59 Last Admin: 11/22/23 08:19 Dose: 40 mg Phenol (Chloraseptic (Phenol) 1.4% Soln 180 Ml Btl) 1 sprays [place] QID PRN PRN Reason: odynophagia Stop: 12/21/23 12:50 Polyethylene Glycol (Polyethylene (Miralax) 17 Gm Pack) 17 gm PO TID [facility] Stop: 12/21/23 13:59 Last Admin: 11/22/23 14:45 Dose: 17 gm Potassium Chloride (Potassium Chloride 10 Meq Tabcr) 10 meq PO BID [facility] Stop: 11/25/23 20:59 Last Admin: 11/22/23 08:19 Dose: 10 meq Senna/Docusate Sodium (Docusate Sodium/Senna 50/8.6mg Tab) 1 tab PO BID [facility] Stop: 12/05/23 01:04 Last Admin: 11/22/23 08:21 Dose: 1 tab Simethicone (Simethicone 40 Mg/0.6 Ml 30ml) 80 mg PO Q6H PRN PRN Reason: Flatulence Stop: 12/05/23 16:11
[2023-11-22] MEDS: SOD PHOSPHATE/SOD BIPHOSPHATE ENEMA 132 ML BTL PR STA (19:14)
[2023-11-22] MEDS: bisacodyL 10 MG SUPP PR SCH (19:14)
--- NOTE | 2023-11-23 08:05 | Hospitalist Progress Note ---
Date of Service November 23, 2023 Assessment & Plan (1) Weakness: (2) Syncope: Plan: Pt is a 73 yo female with history of diabetes type 2, hypertension, dyslipidemia, hypothyroidism, brain tumor s/p resection, schizophrenia, migraine, anemia, recurrent UTIs who presented to the hospital after being discharged from [facility] on the day prior to admission. Patient noted to have hypotension, bradycardia for which antihypertensives were removed. She is currently awaiting guardianship hearing for placement. Per hearing scheduled for December 04. WEAKNESS, SYNCOPE LIKELY SECONDARY TO ORTHOSTATIC HYPOTENSION,POSSIBLE UNDERLYING SICK SINUS SYNDROME Patient was previously admitted to [facility] for pneumonia, respiratory failure s/p intubation, UTI, delirium, stercoral colitis from cons tipation (discharged 09/14/2023) And was observed to have bradycardia, metoprolol reduced in dose. While at [facility] rehab, patient noted to have borderline blood pressure and bradycardia. Amlodipine, lisinopril, metoprolol subsequently discontinued She was discharged from [facility] rehab the day prior to admission She presented with weakness and syncope in the setting of marginal blood pressure and sinus bradycardia in the 50s She had dry oral mucosa and low sodium indicating dehydration. CVA was ruled out Brain MRI - no acute CVA Cardiology was consulted- considering pacemaker placement. 09/26 - Received contact number from for Dimitris Nicholas ([phone]) pt's nephew. He resides in [place]. He is willing to help with decision making. He was updated on her current and previous hospitalization. He understands cardiology is considering placing a pacemaker and is in agreement with the plan. 09/27 s/p PPM placement w/ EP Has remained stabled PM dressing changed by cardiology service PM function checked- appropriately functioning will need to f/u with New Business Clerk on discharge Febrile neutropeniaresolved Likely due to Clozapine Patient started to spike fever on 10/13 and 10/14 Chest x-ray no acute finding Pacemaker incision site without sign of infection Blood culture07/05 from 10/14/2023 growing gram positive bacilli. Repeat blood cx negative Urinalysis not suggestive of infection Was put on empiric antibiotics(Vancomycin and meropenem) --> ID evaluated 10/18, reports no concern of infection. Will monitor off antibiotic per ID r ecommendation.---> Remains afebrile Psychiatry evaluated; agree with holding clozapine. Can restart Zyprexa at 2.5 mg at bedtime if patient has psychiatric symptoms. Pt with reported crying spells, started on scheduled zyprexa 2.5mg qhs overnight on 11/13 Patient cannot ever be started on clozapine as per psychiatry. Possible UTI, rule out Patient reported lower abdominal pain on October 28, 2023 Urinalysis suggestive of infection Was initially placed on meropenem Urine culture3 types of organism; all moderate counts. Completed treatment, antibiotics discontinued NECK PAIN likely muscular Lidoderm Patch, Toradol PRN Resolved HEADACHE Possible migraine attack CT head no signs of acute process Imitrex as needed SORE THROAT likely allergy vs viral will place throat spray prn DIABETES TYPE 2 last a1c 5.9 05/2023 she has not been requiring sliding scale insulin Accu-Cheks and insulin d/c'd HYPERTENSION Chronic, stable Continue lisinopril HYPOTHYROIDISM TSH 2.2 continue levothyroxine BRAIN TUMOR S/P RESECTION SCHIZOPHRENIA Psychiatry evaluated, discontinue clozapine given low ANC/neutropenia. Continue to monitor for emergence of any psychiatric symptoms. May require alternative antipsychotics. It is recommended to trial olazapine 2.5mg at HS if symptoms recur. Pt with reported crying spells, started on scheduled zyprexa 2.5mg qhs on 11/13 Patient cannot ever be started on clozapine as per psychiatry. CONSTIPATION continue bowel regimen closely monitor, as pt has tendency for severe constipation (previous admission) DVT prophylaxis SQ Lovenox Dispo: CM following, guardianship paperwork in place, medically stable for discharge to rehab once guardianship in place Admission and Anticipated Discharge Date Admission Date: September 25, 2023 Subjective Pt seen in follow up + some mild abdominal pain Laying in bed in NAD denies fever, chills, chest pain, shortness of breath, nausea or vomiting had BM yesterday Abdomen soft on phys. exam, cont. to monitor Review of Systems Review of Systems: All systems reviewed & are unremarkable except as noted in Subjective Physical Exam Physical Exam: General- WD/WN F in NAD Head- atraumatic Eyes- PERRL, EOMI, anicteric Neck- supple, no JVD Lungs- clear to auscultation, no rales/wheezes Heart- rrr Abdomen- normal bowel sounds, nondistended, soft, mildly tender Extremities- no pretibial edema, moves extremities Neuro- alert, able to answer simple questions appropriately however has poor memory, speech fluent, no facial asymmetry, moves extremities Skin- warm & dry Results & Data Results & Data Vital Signs (Past 12 Hours) Vital Signs Temp Pulse Resp BP Pulse Ox O2 Del Method 11/23/23 07:57 36.5 C 60 16 161/83 H 100 Room Air 11/22/23 20:44 36.7 C 63 16 137/72 100 Room Air Medications Administered Current Inpatient Medications Acetaminophen (Acetaminophen 325 Mg Tab) 650 mg PO Q6H [facility] Stop: 12/12/23 19:59 Last Admin: 11/23/23 02:12 Dose: 650 mg Aspirin (Aspirin 81 Mg Chew) 81 mg PO DAILY [facility] Stop: 11/26/23 08:59 Last Admin: 11/22/23 08:19 Dose: 81 mg Atorvastatin Calcium (Atorvastatin 20 Mg Tab) 20 mg PO QAM [facility] Stop: 11/26/23 08:59 Last Admin: 11/22/23 08:19 Dose: 20 mg Bisacodyl (Bisacodyl 10 Mg Supp) 10 mg [place] QAM [facility] Stop: 12/22/23 18:29 Last Admin: 11/22/23 19:14 Dose: Not Given Dextrose (Dextrose 50% 50 Ml Syringe) 25 - 50 ml IV UD PRN; Protocol PRN Reason: Hypoglycemia Protocol Stop: 11/25/23 16:56 Fluticasone Propionate (Fluticasone Propionate Na Spr 16 Gm Btl) 2 sprays NA DAILY [facility] Stop: 11/26/23 08:59 Last Admin: 11/22/23 08:20 Dose: 2 sprays Glucagon (Glucagon For Inj 1 Mg Vial) 1 mg SQ UD PRN; Protocol PRN Reason: Hypoglycemia Protocol Stop: 11/25/23 16:56 Glucose (Glucose 40% Gel 15 Gm Tube) 15 - 30 gm PO UD PRN; Protocol PRN Reason: Hypoglycemia Protocol Stop: 11/25/23 16:56 Glucose (Glucose 10 Tab/Tube) 4 - 8 tab PO UD PRN; Protocol PRN Reason: Hypoglycemia Treatment Stop: 11/25/23 16:56 Promethazine HCl 6.25 mg/ (Sodium Chloride) 50.25 mls @ 201 mls/hr IV Q6H PRN PRN Reason: Nausea And Vomiting Stop: 12/04/23 20:25 Levothyroxine Sodium (Levothyroxine Sodium 50 Mcg Tablet) 50 mcg PO DAILYBB [facility] Stop: 11/26/23 06:29 Last Admin: 11/23/23 05:41 Dose: 50 mcg Magnesium Hydroxide (Magnesium Hydroxide Susp 30 Ml Udc) 30 ml PO BID [facility] Stop: 12/07/23 20:59 Last Admin: 11/22/23 20:30 Dose: 30 ml Magnesium Oxide (Magnesium Oxide 400 Mg Tab) 400 mg PO QAM [facility] Stop: 11/26/23 08:59 Last Admin: 11/22/23 08:20 Dose: 400 mg Miscellaneous (Carbohydrates For Hypoglycemia ) 15 - 30 gm PO UD PRN PRN Reason: Hypoglycemia Protocol Stop: 11/25/23 16:56 Olanzapine (Olanzapine Zydis 5 Mg Orally Dis. Tab) 2.5 mg PO HS [facility] Stop: 12/15/23 20:59 Last Admin: 11/22/23 20:31 Dose: 2.5 mg Pantoprazole Sodium (Pantoprazole 40 Mg Tab) 40 mg PO QAM [facility] Stop: 11/26/23 08:59 Last Admin: 11/22/23 08:19 Dose: 40 mg Phenol (Chloraseptic (Phenol) 1.4% Soln 180 Ml Btl) 1 sprays MT QID PRN PRN Reason: odynophagia Stop: 12/21/23 12:50 Polyethylene Glycol (Polyethylene (Miralax) 17 Gm Pack) 17 gm PO TID [facility] Stop: 12/21/23 13:59 Last Admin: 11/22/23 20:32 Dose: 17 gm Potassium Chloride (Potassium Chloride 10 Meq Tabcr) 10 meq PO BID [facility] Stop: 11/25/23 20:59 Last Admin: 11/22/23 20:32 Dose: 10 meq Senna/Docusate Sodium (Docusate Sodium/Senna 50/8.6mg Tab) 1 tab PO BID [facility] Stop: 12/05/23 01:04 Last Admin: 11/22/23 20:34 Dose: 1 tab Simethicone (Simethicone 40 Mg/0.6 Ml 30ml) 80 mg PO Q6H PRN PRN Reason: Flatulence Stop: 12/05/23 16:11
[2023-11-23 10:12] LABS: Hematocrit (blood only) 35.5 % (37.0-47.0); Hemoglobin 11.4 g/dl (12.0-16.0); Mean Corpuscular Hemoglobin 27.6 pg (25.0-34.0); Mean Corpuscular Hgb Conc 32.1 g/dL (32.0-36.0); Mean Platelet Volume 10.4 fL (9.4-12.4); Platelet Count 189 K/uL (130-400); RDW Coefficient of Variation 14.9 % (11.5-14.5); RDW Standard Deviation 46.4 fL (36.4-46.3); Red Blood Count 4.13 M/uL (4.20-5.40); White Blood Count 4.19 K/ul (4.8-10.8)
[2023-11-23 10:25] LABS: BUN Creatinine Ratio 37.3 (10-20); Calcium 9.1 mg/dl (8.6-10.3); Creatinine Clr Calc Pharmacy 55.2 ml/min; Est GFR (Non-African American) 78.5 ml/min; Magnesium 1.9 mg/dl (1.7-2.4); Phosphorus 3.9 mg/dl (2.5-4.9)
[2023-11-23] MEDS: MULTIVITAMIN TAB PO SCH (11:13)
[2023-11-23] MEDS ORDERED: bisacodyL 10 MG SUPP PR PRN (16:10)
[2023-11-23] MEDS: POLYETHYLENE (MIRALAX) 17 GM PACK PO SCH (20:58)
--- NOTE | 2023-11-24 07:59 | Hospitalist Progress Note ---
Date of Service November 24, 2023 Assessment & Plan (1) Weakness: (2) Syncope: Plan: Pt is a 73 yo female with history of diabetes type 2, hypertension, dyslipidemia, hypothyroidism, brain tumor s/p resection, schizophrenia, migraine, anemia, recurrent UTIs who presented to the hospital after being discharged from [facility] on the day prior to admission. Patient noted to have hypotension, bradycardia for which antihypertensives were removed. She is currently awaiting guardianship hearing for placement. Per hearing scheduled for December 04. WEAKNESS, SYNCOPE LIKELY SECONDARY TO ORTHOSTATIC HYPOTENSION,POSSIBLE UNDERLYING SICK SINUS SYNDROME Patient was previously admitted to [facility] for pneumonia, respiratory failure s/p intubation, UTI, delirium, stercoral colitis from [facility] tipation (discharged 09/14/2023) And was observed to have bradycardia, metoprolol reduced in dose. While at [facility]hab, patient noted to have borderline blood pressure and bradycardia. Amlodipine, lisinopril, metoprolol subsequently discontinued She was discharged from [facility]hab the day prior to admission She presented with weakness and syncope in the setting of marginal blood pressure and sinus bradycardia in the 50s She had dry oral mucosa and low sodium indicating dehydration. CVA was ruled out Brain MRI - no acute CVA Cardiology was consulted- considering pacemaker placement. 09/26 - Received contact number from for Dimitris Nicholas ([phone]) pt's nephew. He resides in [place]. He is willing to help with decision making. He was updated on her current and previous hospitalization. He understands cardiology is considering placing a pacemaker and is in agreement with the plan. 09/27 s/p PPM placement w/ EP Has remained stabled PM dressing changed by cardiology service PM function checked- appropriately functioning will need to f/u with Steak Sauce Maker on discharge Febrile neutropeniaresolved Likely due to Clozapine Patient started to spike fever on 10/13 and 10/14 Chest x-ray no acute finding Pacemaker incision site without sign of infection Blood culture07/05 from 10/14/2023 growing gram positive bacilli. Repeat blood cx negative Urinalysis not suggestive of infection Was put on empiric antibiotics(Vancomycin and meropenem) --> ID evaluated 10/18, reports no concern of infection. Will monitor off antibiotic per ID r ecommendation.---> Remains afebrile Psychiatry evaluated; agree with holding clozapine. Can restart Zyprexa at 2.5 mg at bedtime if patient has psychiatric symptoms. Pt with reported crying spells, started on scheduled zyprexa 2.5mg qhs overnight on 11/13 Patient cannot ever be started on clozapine as per psychiatry. Possible UTI, rule out Patient reported lower abdominal pain on October 28, 2023 Urinalysis suggestive of infection Was initially placed on meropenem Urine culture3 types of organism; all moderate counts. Completed treatment, antibiotics discontinued NECK PAIN likely muscular Lidoderm Patch, Toradol PRN Resolved HEADACHE Possible migraine attack CT head no signs of acute process Imitrex as needed SORE THROAT likely allergy vs viral will place throat spray prn DIABETES TYPE 2 last a1c 5.9 05/2023 she has not been requiring sliding scale insulin Accu-Cheks and insulin d/c'd HYPERTENSION Chronic, stable Continue lisinopril HYPOTHYROIDISM TSH 2.2 continue levothyroxine BRAIN TUMOR S/P RESECTION SCHIZOPHRENIA Psychiatry evaluated, discontinue clozapine given low ANC/neutropenia. Continue to monitor for emergence of any psychiatric symptoms. May require alternative antipsychotics. It is recommended to trial olazapine 2.5mg at HS if symptoms recur. Pt with reported crying spells, started on scheduled zyprexa 2.5mg qhs on 11/13 Patient cannot ever be started on clozapine as per psychiatry. CONSTIPATION continue bowel regimen closely monitor, as pt has tendency for severe constipation (previous admission) DVT prophylaxis SQ Lovenox Dispo: CM following, guardianship paperwork in place, medically stable for discharge to rehab once guardianship in place Admission and Anticipated Discharge Date Admission Date: September 25, 2023 Subjective Pt seen in follow up + some mild abdominal pain - persistent Laying in bed in NAD denies fever, chills, chest pain, shortness of breath, nausea or vomiting Abdomen soft on phys. exam, however persistent abd. discomfort - will obtain KUB Discussed with RN in detail Review of Systems Review of Systems: All systems reviewed & are unremarkable except as noted in Subjective Physical Exam Physical Exam: General- WD/WN F in NAD Head- atraumatic Eyes- PERRL, EOMI, anicteric Neck- supple, no JVD Lungs- clear to auscultation, no rales/wheezes Heart- rrr Abdomen- normal bowel sounds, nondistended, soft, mildly tender Extremities- no pretibial edema, moves extremities Neuro- alert, able to answer simple questions appropriately however has poor memory, speech fluent, no facial asymmetry, moves extremities Skin- warm & dry Results & Data Results & Data Vital Signs (Past 12 Hours) Vital Signs Temp Pulse Resp BP Pulse Ox O2 Del Method 11/23/23 23:04 36.8 C 59 L 16 155/77 H 100 Room Air Diagnostic Findings 11/23/23 Range/Units 09:57 WBC 4.19 L (4.8-10.8) K/ul RBC 4.13 L (4.20-5.40) M/uL Hgb 11.4 L (12.0-16.0) g/dl Hct 35.5 L (37.0-47.0) % MCV 86.0 (80.0-100.0) fL MCH 27.6 (25.0-34.0) pg MCHC 32.1 (32.0-36.0) g/dL RDW Std Deviation 46.4 H (36.4-46.3) fL RDW Coeff of Cyn 14.9 H (11.5-14.5) % Plt Count 189 (130-400) K/uL MPV 10.4 (9.4-12.4) fL Sodium 141 (136-145) mmol/L Potassium 4.0 (3.5-5.1) mmol/L Chloride 106 (98-107) mmol/L Carbon Dioxide 29 (21-32) mmol/L Anion Gap 6 (3-11) BUN 28 H (6-23) mg/dl Creatinine 0.75 (0.6-1.2) mg/dl Est Cr Clr Drug Dosing 55.2 ml/min Est GFR ( Amer) 91.0 ml/min Est GFR (Non-Af Amer) 78.5 ml/min BUN/Creatinine Ratio 37.3 H (10-20) Glucose 111 H (70-99(Fasting)) mg/dl Calcium 9.1 (8.6-10.3) mg/dl Phosphorus 3.9 (2.5-4.9) mg/dl Magnesium 1.9 (1.7-2.4) mg/dl Medications Administered Current Inpatient Medications Acetaminophen (Acetaminophen 325 Mg Tab) 650 mg PO Q6H [facility] Stop: 12/12/23 19:59 Last Admin: 11/24/23 02:12 Dose: 650 mg Aspirin (Aspirin 81 Mg Chew) 81 mg PO DAILY [facility] Stop: 11/26/23 08:59 Last Admin: 11/23/23 09:40 Dose: 81 mg Atorvastatin Calcium (Atorvastatin 20 Mg Tab) 20 mg PO QAM [facility] Stop: 11/26/23 08:59 Last Admin: 11/23/23 09:40 Dose: 20 mg Bisacodyl (Bisacodyl 10 Mg Supp) 10 mg [place] QAM PRN PRN Reason: Constipation Stop: 12/22/23 18:29 Dextrose (Dextrose 50% 50 Ml Syringe) 25 - 50 ml IV UD PRN; Protocol PRN Reason: Hypoglycemia Protocol Stop: 11/25/23 16:56 Fluticasone Propionate (Fluticasone Propionate Na Spr 16 Gm Btl) 2 sprays NA DAILY [facility] Stop: 11/26/23 08:59 Last Admin: 11/23/23 09:39 Dose: 2 sprays Glucagon (Glucagon For Inj 1 Mg Vial) 1 mg SQ UD PRN; Protocol PRN Reason: Hypoglycemia Protocol Stop: 11/25/23 16:56 Glucose (Glucose 40% Gel 15 Gm Tube) 15 - 30 gm PO UD PRN; Protocol PRN Reason: Hypoglycemia Protocol Stop: 11/25/23 16:56 Glucose (Glucose 10 Tab/Tube) 4 - 8 tab PO UD PRN; Protocol PRN Reason: Hypoglycemia Treatment Stop: 11/25/23 16:56 Promethazine HCl 6.25 mg/ (Sodium Chloride) 50.25 mls @ 201 mls/hr IV Q6H PRN PRN Reason: Nausea And Vomiting Stop: 12/04/23 20:25 Levothyroxine Sodium (Levothyroxine Sodium 50 Mcg Tablet) 50 mcg PO DAILYBB [facility] Stop: 11/26/23 06:29 Last Admin: 11/24/23 06:02 Dose: 50 mcg Magnesium Hydroxide (Magnesium Hydroxide Susp 30 Ml Udc) 30 ml PO BID [facility] Stop: 12/07/23 20:59 Last Admin: 11/23/23 20:57 Dose: 30 ml Magnesium Oxide (Magnesium Oxide 400 Mg Tab) 400 mg PO QAM [facility] Stop: 11/26/23 08:59 Last Admin: 11/23/23 09:39 Dose: 400 mg Miscellaneous (Carbohydrates For Hypoglycemia ) 15 - 30 gm PO UD PRN PRN Reason: Hypoglycemia Protocol Stop: 11/25/23 16:56 Multivitamins (Multivitamin Tab) 1 tab PO QAM [facility] Stop: 12/23/23 09:59 Last Admin: 11/23/23 11:13 Dose: 1 tab Olanzapine (Olanzapine Zydis 5 Mg Orally Dis. Tab) 2.5 mg PO HS [facility] Stop: 12/15/23 20:59 Last Admin: 11/23/23 20:57 Dose: 2.5 mg Pantoprazole Sodium (Pantoprazole 40 Mg Tab) 40 mg PO QAM [facility] Stop: 11/26/23 08:59 Last Admin: 11/23/23 09:40 Dose: 40 mg Phenol (Chloraseptic (Phenol) 1.4% Soln 180 Ml Btl) 1 sprays MT QID PRN PRN Reason: odynophagia Stop: 12/21/23 12:50 Polyethylene Glycol (Polyethylene (Miralax) 17 Gm Pack) 17 gm PO BID [facility] Stop: 12/23/23 20:59 Last Admin: 11/23/23 20:58 Dose: 17 gm Potassium Chloride (Potassium Chloride 10 Meq Tabcr) 10 meq PO BID [facility] Stop: 11/25/23 20:59 Last Admin: 11/23/23 20:57 Dose: 10 meq Senna/Docusate Sodium (Docusate Sodium/Senna 50/8.6mg Tab) 1 tab PO BID [facility] Stop: 12/05/23 01:04 Last Admin: 11/23/23 21:05 Dose: 1 tab Simethicone (Simethicone 40 Mg/0.6 Ml 30ml) 80 mg PO Q6H PRN PRN Reason: Flatulence Stop: 12/05/23 16:11
[2023-11-24 08:36] LABS: Calcium 9.3 mg/dl (8.6-10.3); Magnesium 2.1 mg/dl (1.7-2.4); Potassium 4.5 mmol/L (3.5-5.1)
[2023-11-24 08:41] LABS: BUN Creatinine Ratio 28.6 (10-20); Creatinine Clr Calc Pharmacy 49.3 ml/min; Est GFR (African American) 79.4 ml/min; Est GFR (Non-African American) 68.5 ml/min
[2023-11-24 08:52] LABS: Hematocrit (blood only) 38.8 % (37.0-47.0); Hemoglobin 12.6 g/dl (12.0-16.0); Mean Corpuscular Hgb Conc 32.5 g/dL (32.0-36.0); Mean Corpuscular Volume 86.2 fL (80.0-100.0); Mean Platelet Volume 9.7 fL (9.4-12.4); Platelet Count 190 K/uL (130-400); RDW Coefficient of Variation 14.7 % (11.5-14.5); RDW Standard Deviation 46.3 fL (36.4-46.3); White Blood Count 5.32 K/ul (4.8-10.8)
--- NOTE | 2023-11-24 14:50 | XRay Report ---
KUB HISTORY: Generalized abdominal pain. COMPARISON: Abdomen and pelvis CT 11/04/2023. KUB 09/25/2023. FINDINGS: The bowel gas pattern is unremarkable. There are no dilated loops of small bowel to suggest an obstruction. No renal or ureteral calculi. There is a 12 mm calcification again noted within the pelvis. Moderate to large amount of well-formed stool seen throughout the colon. Pacemaker wires are noted. The lung bases are clear. No pneumoperitoneum or pneumatosis. IMPRESSION: 1. Nonobstructive bowel gas pattern. 2. Moderate to large amount of well-formed stool within the colon. ACT 112: Negative or not required by law. Electronically signed by: Doe Harper M.D. 11/24/2023 2:49 PM
--- NOTE | 2023-11-25 04:36 | Hospitalist Progress Note ---
Date of Service November 25, 2023 Assessment & Plan (1) Weakness: (2) Syncope: Plan: Pt is a 73 yo female with history of diabetes type 2, hypertension, dyslipidemia, hypothyroidism, brain tumor s/p resection, schizophrenia, migraine, anemia, recurrent UTIs who presented to the hospital after being discharged from [facility] on the day prior to admission. Patient noted to have hypotension, bradycardia for which antihypertensives were removed. She is currently awaiting guardianship hearing for placement. Per hearing scheduled for December 04. WEAKNESS, SYNCOPE LIKELY SECONDARY TO ORTHOSTATIC HYPOTENSION,POSSIBLE UNDERLYING SICK SINUS SYNDROME Patient was previously admitted to [facility] for pneumonia, respiratory failure s/p intubation, UTI, delirium, stercoral colitis from cons tipation (discharged 09/14/2023) And was observed to have bradycardia, metoprolol reduced in dose. While at [facility], patient noted to have borderline blood pressure and bradycardia. Amlodipine, lisinopril, metoprolol subsequently discontinued She was discharged from [facility] the day prior to admission She presented with weakness and syncope in the setting of marginal blood pressure and sinus bradycardia in the 50s She had dry oral mucosa and low sodium indicating dehydration. CVA was ruled out Brain MRI - no acute CVA Cardiology was consulted- considering pacemaker placement. 09/26 - Received contact number from for Dimitris Nicholas ([phone]) pt's nephew. He resides in [place]. He is willing to help with decision making. He was updated on her current and previous hospitalization. He understands cardiology is considering placing a pacemaker and is in agreement with the plan. 09/27 s/p PPM placement w/ EP Has remained stabled PM dressing changed by cardiology service PM function checked- appropriately functioning will need to f/u with Cio on discharge Febrile neutropeniaresolved Likely due to Clozapine Patient started to spike fever on 10/13 and 10/14 Chest x-ray no acute finding Pacemaker incision site without sign of infection Blood culture07/05 from 10/14/2023 growing gram positive bacilli. Repeat blood cx negative Urinalysis not suggestive of infection Was put on empiric antibiotics(Vancomycin and meropenem) --> ID evaluated 10/18, reports no concern of infection. Will monitor off antibiotic per ID r ecommendation.---> Remains afebrile Psychiatry evaluated; agree with holding clozapine. Can restart Zyprexa at 2.5 mg at bedtime if patient has psychiatric symptoms. Pt with reported crying spells, started on scheduled zyprexa 2.5mg qhs overnight on 11/13 Patient cannot ever be started on clozapine as per psychiatry. Possible UTI, rule out Patient reported lower abdominal pain on October 28, 2023 Urinalysis suggestive of infection Was initially placed on meropenem Urine culture3 types of organism; all moderate counts. Completed treatment, antibiotics discontinued NECK PAIN likely muscular Lidoderm Patch, Toradol PRN Resolved HEADACHE Possible migraine attack CT head no signs of acute process Imitrex as needed SORE THROAT likely allergy vs viral will place throat spray prn DIABETES TYPE 2 last a1c 5.9 05/2023 she has not been requiring sliding scale insulin Accu-Cheks and insulin d/c'd HYPERTENSION Chronic, stable Continue lisinopril HYPOTHYROIDISM TSH 2.2 continue levothyroxine BRAIN TUMOR S/P RESECTION SCHIZOPHRENIA Psychiatry evaluated, discontinue clozapine given low ANC/neutropenia. Continue to monitor for emergence of any psychiatric symptoms. May require alternative antipsychotics. It is recommended to trial olazapine 2.5mg at HS if symptoms recur. Pt with reported crying spells, started on scheduled zyprexa 2.5mg qhs on 11/13 Patient cannot ever be started on clozapine as per psychiatry. CONSTIPATION continue bowel regimen closely monitor, as pt has tendency for severe constipation (previous admission) abd. pain KUB was obtained 11/23 - shows moderate to large amount of stool - discussed with RN in detail-> will give enema, cont. bowel regimen DVT prophylaxis SQ Lovenox Dispo: CM following, guardianship paperwork in place, medically stable for discharge to rehab once guardianship in place Admission and Anticipated Discharge Date Admission Date: September 25, 2023 Subjective Pt seen in follow up + some mild abdominal pain - persistent and so KUB was obtained - shows moderate to large amount of stool - discussed with RN in detail-> will give enema, cont. bowel regimen Laying in bed in NAD denies fever, chills, chest pain, shortness of breath, nausea or vomiting Abdomen soft on phys. exam Review of Systems Review of Systems: All systems reviewed & are unremarkable except as noted in Subjective Physical Exam Physical Exam: General- WD/WN F in NAD Head- atraumatic Eyes- PERRL, EOMI, anicteric Neck- supple, no JVD Lungs- clear to auscultation, no rales/wheezes Heart- rrr Abdomen- normal bowel sounds, nondistended, soft, mildly tender Extremities- no pretibial edema, moves extremities Neuro- alert, able to answer simple questions appropriately however has poor memory, speech fluent, no facial asymmetry, moves extremities Skin- warm & dry Results & Data Results & Data Vital Signs (Past 12 Hours) Vital Signs Temp Pulse Resp BP Pulse Ox O2 Del Method 11/24/23 20:47 37.0 C 64 18 111/68 98 Room Air Medications Administered Current Inpatient Medications Acetaminophen (Acetaminophen 325 Mg Tab) 650 mg PO Q6H [facility]EL Stop: 12/12/23 19:59 Last Admin: 11/25/23 02:15 Dose: 650 mg Aspirin (Aspirin 81 Mg Chew) 81 mg PO DAILY JAMEL Stop: 11/26/23 08:59 Last Admin: 11/24/23 09:08 Dose: 81 mg Atorvastatin Calcium (Atorvastatin 20 Mg Tab) 20 mg PO QAM [facility] Stop: 11/26/23 08:59 Last Admin: 11/24/23 09:08 Dose: 20 mg Bisacodyl (Bisacodyl 10 Mg Supp) 10 mg [place] QAM PRN PRN Reason: Constipation Stop: 12/22/23 18:29 Dextrose (Dextrose 50% 50 Ml Syringe) 25 - 50 ml IV UD PRN; Protocol PRN Reason: Hypoglycemia Protocol Stop: 11/25/23 16:56 Fluticasone Propionate (Fluticasone Propionate Na Spr 16 Gm Btl) 2 sprays NA DAILY JAMEL Stop: 11/26/23 08:59 Last Admin: 11/24/23 09:12 Dose: 2 sprays Glucagon (Glucagon For Inj 1 Mg Vial) 1 mg SQ UD PRN; Protocol PRN Reason: Hypoglycemia Protocol Stop: 11/25/23 16:56 Glucose (Glucose 40% Gel 15 Gm Tube) 15 - 30 gm PO UD PRN; Protocol PRN Reason: Hypoglycemia Protocol Stop: 11/25/23 16:56 Glucose (Glucose 10 Tab/Tube) 4 - 8 tab PO UD PRN; Protocol PRN Reason: Hypoglycemia Treatment Stop: 11/25/23 16:56 Promethazine HCl 6.25 mg/ (Sodium Chloride) 50.25 mls @ 201 mls/hr IV Q6H PRN PRN Reason: Nausea And Vomiting Stop: 12/04/23 20:25 Levothyroxine Sodium (Levothyroxine Sodium 50 Mcg Tablet) 50 mcg PO DAILYBB [facility] Stop: 11/26/23 06:29 Last Admin: 11/24/23 06:02 Dose: 50 mcg Magnesium Hydroxide (Magnesium Hydroxide Susp 30 Ml Udc) 30 ml PO BID JAMEL Stop: 12/07/23 20:59 Last Admin: 11/24/23 20:13 Dose: 30 ml Magnesium Oxide (Magnesium Oxide 400 Mg Tab) 400 mg PO QAM [facility] Stop: 11/26/23 08:59 Last Admin: 11/24/23 09:08 Dose: 400 mg Miscellaneous (Carbohydrates For Hypoglycemia ) 15 - 30 gm PO UD PRN PRN Reason: Hypoglycemia Protocol Stop: 11/25/23 16:56 Multivitamins (Multivitamin Tab) 1 tab PO QAM [facility] Stop: 12/23/23 09:59 Last Admin: 11/24/23 09:09 Dose: 1 tab Olanzapine (Olanzapine Zydis 5 Mg Orally Dis. Tab) 2.5 mg PO HS [facility] Stop: 12/15/23 20:59 Last Admin: 11/24/23 20:12 Dose: 2.5 mg Pantoprazole Sodium (Pantoprazole 40 Mg Tab) 40 mg PO QAM [facility] Stop: 11/26/23 08:59 Last Admin: 11/24/23 10:17 Dose: 40 mg Phenol (Chloraseptic (Phenol) 1.4% Soln 180 Ml Btl) 1 sprays MT QID PRN PRN Reason: odynophagia Stop: 12/21/23 12:50 Polyethylene Glycol (Polyethylene (Miralax) 17 Gm Pack) 17 gm PO BID [facility] Stop: 12/23/23 20:59 Last Admin: 11/24/23 20:12 Dose: 17 gm Potassium Chloride (Potassium Chloride 10 Meq Tabcr) 10 meq PO BID JAMEL Stop: 11/25/23 20:59 Last Admin: 11/24/23 20:13 Dose: 10 meq Senna/Docusate Sodium (Docusate Sodium/Senna 50/8.6mg Tab) 1 tab PO BID [facility] Stop: 12/05/23 01:04 Last Admin: 11/24/23 20:18 Dose: 1 tab Simethicone (Simethicone 40 Mg/0.6 Ml 30ml) 80 mg PO Q6H PRN PRN Reason: Flatulence Stop: 12/05/23 16:11
[2023-11-25] MEDS: SOD PHOSPHATE/SOD BIPHOSPHATE ENEMA 132 ML BTL PR ONE (10:22)
--- NOTE | 2023-11-26 09:18 | Hospitalist Progress Note ---
Date of Service November 26, 2023 Assessment & Plan (1) Weakness: (2) Syncope: Plan: Pt is a 73 yo female with history of diabetes type 2, hypertension, dyslipidemia, hypothyroidism, brain tumor s/p resection, schizophrenia, migraine, anemia, recurrent UTIs who presented to the hospital after being discharged from [facility] on the day prior to admission. Patient noted to have hypotension, bradycardia for which antihypertensives were removed. She is currently awaiting guardianship hearing for placement. Per hearing scheduled for December 04. WEAKNESS, SYNCOPE LIKELY SECONDARY TO ORTHOSTATIC HYPOTENSION,POSSIBLE UNDERLYING SICK SINUS SYNDROME Patient was previously admitted to [facility] for pneumonia, respiratory failure s/p intubation, UTI, delirium, stercoral colitis from cons tipation (discharged 09/14/2023) And was observed to have bradycardia, metoprolol reduced in dose. While at [facility] rehab, patient noted to have borderline blood pressure and bradycardia. Amlodipine, lisinopril, metoprolol subsequently discontinued She was discharged from [facility] rehab the day prior to admission She presented with weakness and syncope in the setting of marginal blood pressure and sinus bradycardia in the 50s She had dry oral mucosa and low sodium indicating dehydration. CVA was ruled out Brain MRI - no acute CVA Cardiology was consulted- considering pacemaker placement. 09/26 - Received contact number from for Dimitris Nicholas ([phone]) pt's nephew. He resides in [place]. He is willing to help with decision making. He was updated on her current and previous hospitalization. He understands cardiology is considering placing a pacemaker and is in agreement with the plan. 09/27 s/p PPM placement w/ EP Has remained stabled PM dressing changed by cardiology service PM function checked- appropriately functioning will need to f/u with [facility] on discharge Febrile neutropeniaresolved Likely due to Clozapine Patient started to spike fever on 10/13 and 10/14 Chest x-ray no acute finding Pacemaker incision site without sign of infection Blood culture07/05 from 10/14/2023 growing gram positive bacilli. Repeat blood cx negative Urinalysis not suggestive of infection Was put on empiric antibiotics(Vancomycin and meropenem) --> ID evaluated 10/18, reports no concern of infection. Will monitor off antibiotic per ID r ecommendation.---> Remains afebrile Psychiatry evaluated; agree with holding clozapine. Can restart Zyprexa at 2.5 mg at bedtime if patient has psychiatric symptoms. Pt with reported crying spells, started on scheduled zyprexa 2.5mg qhs overnight on 11/13 Patient cannot ever be started on clozapine as per psychiatry. Possible UTI, rule out Patient reported lower abdominal pain on October 28, 2023 Urinalysis suggestive of infection Was initially placed on meropenem Urine culture3 types of organism; all moderate counts. Completed treatment, antibiotics discontinued NECK PAIN likely muscular Lidoderm Patch, Toradol PRN Resolved HEADACHE Possible migraine attack CT head no signs of acute process Imitrex as needed SORE THROAT likely allergy vs viral will place throat spray prn DIABETES TYPE 2 last a1c 5.9 05/2023 she has not been requiring sliding scale insulin Accu-Cheks and insulin d/c'd HYPERTENSION Chronic, stable Continue lisinopril HYPOTHYROIDISM TSH 2.2 continue levothyroxine BRAIN TUMOR S/P RESECTION SCHIZOPHRENIA Psychiatry evaluated, discontinue clozapine given low ANC/neutropenia. Continue to monitor for emergence of any psychiatric symptoms. May require alternative antipsychotics. It is recommended to trial olazapine 2.5mg at HS if symptoms recur. Pt with reported crying spells, started on scheduled zyprexa 2.5mg qhs on 11/13 Patient cannot ever be started on clozapine as per psychiatry. CONSTIPATION continue bowel regimen closely monitor, as pt has tendency for severe constipation (previous admission) abd. pain KUB was obtained 11/23 - shows moderate to large amount of stool - discussed with RN in detail-> gave enema, cont. bowel regimen will also add carafate for abd. discomfort and will monitor DVT prophylaxis SQ Lovenox Dispo: CM following, guardianship paperwork in place, medically stable for discharge to rehab once guardianship in place Admission and Anticipated Discharge Date Admission Date: September 25, 2023 Subjective Pt seen in follow up + some mild abdominal pain - persistent and so KUB was obtained - shows moderate to large amount of stool - discussed with RN in detail - gave enema, cont. bowel regimen Laying in bed in NAD denies fever, chills, chest pain, shortness of breath, nausea or vomiting Abdomen soft on phys. exam Review of Systems Review of Systems: All systems reviewed & are unremarkable except as noted in Subjective Physical Exam Physical Exam: General- WD/WN F in NAD Head- atraumatic Eyes- PERRL, EOMI, anicteric Neck- supple, no JVD Lungs- clear to auscultation, no rales/wheezes Heart- rrr Abdomen- normal bowel sounds, nondistended, soft, mildly tender Extremities- no pretibial edema, moves extremities Neuro- alert, able to answer simple questions appropriately however has poor memory, speech fluent, no facial asymmetry, moves extremities Skin- warm & dry Results & Data Results & Data Vital Signs (Past 12 Hours) Vital Signs Temp Pulse Resp BP Pulse Ox O2 Del Method 11/26/23 07:05 36.7 C 60 15 154/78 H 98 Room Air 11/25/23 21:32 36.7 C 60 18 118/61 98 Room Air Medications Administered Current Inpatient Medications Acetaminophen (Acetaminophen 325 Mg Tab) 650 mg PO Q6H [facility] Stop: 12/26/23 19:59 Last Admin: 11/26/23 07:31 Dose: 650 mg Aspirin (Aspirin 81 Mg Chew) 81 mg PO DAILY JAMEL Stop: 12/26/23 08:59 Last Admin: 11/26/23 08:52 Dose: 81 mg Atorvastatin Calcium (Atorvastatin 20 Mg Tab) 20 mg PO QAM [facility] Stop: 12/26/23 08:59 Last Admin: 11/26/23 08:52 Dose: 20 mg Bisacodyl (Bisacodyl 10 Mg Supp) 10 mg [place] QAM PRN PRN Reason: Constipation Stop: 12/26/23 16:09 Fluticasone Propionate (Fluticasone Propionate Na Spr 16 Gm Btl) 2 sprays NA DAILY [facility] Stop: 12/26/23 08:59 Last Admin: 11/26/23 07:32 Dose: 2 sprays Promethazine HCl 6.25 mg/ (Sodium Chloride) 50.25 mls @ 201 mls/hr IV Q6H PRN PRN Reason: Nausea And Vomiting Stop: 12/26/23 20:25 Magnesium Hydroxide (Magnesium Hydroxide Susp 30 Ml Udc) 30 ml PO BID [facility] Stop: 12/26/23 20:59 Last Admin: 11/26/23 07:31 Dose: 30 ml Magnesium Oxide (Magnesium Oxide 400 Mg Tab) 400 mg PO QAM [facility] Stop: 12/26/23 08:59 Last Admin: 11/25/23 08:27 Dose: 400 mg Multivitamins (Multivitamin Tab) 1 tab PO QAM [facility] Stop: 12/23/23 09:59 Last Admin: 11/26/23 07:31 Dose: 1 tab Olanzapine (Olanzapine Zydis 5 Mg Orally Dis. Tab) 2.5 mg PO HS [facility] Stop: 12/26/23 20:59 Last Admin: 11/25/23 19:59 Dose: 2.5 mg Pantoprazole Sodium (Pantoprazole 40 Mg Tab) 40 mg PO QAM [facility] Stop: 12/26/23 08:59 Last Admin: 11/26/23 08:52 Dose: 40 mg Phenol (Chloraseptic (Phenol) 1.4% Soln 180 Ml Btl) 1 sprays MT QID PRN PRN Reason: odynophagia Stop: 12/21/23 12:50 Polyethylene Glycol (Polyethylene (Miralax) 17 Gm Pack) 17 gm PO BID [facility] Stop: 12/23/23 20:59 Last Admin: 11/26/23 07:33 Dose: 17 gm Senna/Docusate Sodium (Docusate Sodium/Senna 50/8.6mg Tab) 1 tab PO BID [facility] Stop: 12/26/23 01:04 Last Admin: 11/26/23 08:54 Dose: 1 tab Simethicone (Simethicone 40 Mg/0.6 Ml 30ml) 80 mg PO Q6H PRN PRN Reason: Flatulence Stop: 12/26/23 16:11
[2023-11-26] MEDS: SUCRALFATE 1 GM/10 ML UDC PO SCH (13:56)
--- NOTE | 2023-11-27 07:46 | Hospitalist Progress Note ---
Date of Service November 27, 2023 Assessment & Plan (1) Weakness: (2) Syncope: Plan: Pt is a 73 yo female with history of diabetes type 2, hypertension, dyslipidemia, hypothyroidism, brain tumor s/p resection, schizophrenia, migraine, anemia, recurrent UTIs who presented to the hospital after being discharged from [facility] on the day prior to admission. Patient noted to have hypotension, bradycardia for which antihypertensives were removed. She is currently awaiting guardianship hearing for placement. Per hearing scheduled for December 04. WEAKNESS, SYNCOPE LIKELY SECONDARY TO ORTHOSTATIC HYPOTENSION,POSSIBLE UNDERLYING SICK SINUS SYNDROME Patient was previously admitted to [facility] for pneumonia, respiratory failure s/p intubation, UTI, delirium, stercoral colitis from cons tipation (discharged 09/14/2023) And was observed to have bradycardia, metoprolol reduced in dose. While at [facility] rehab, patient noted to have borderline blood pressure and bradycardia. Amlodipine, lisinopril, metoprolol subsequently discontinued She was discharged from [facility] rehab the day prior to admission She presented with weakness and syncope in the setting of marginal blood pressure and sinus bradycardia in the 50s She had dry oral mucosa and low sodium indicating dehydration. CVA was ruled out Brain MRI - no acute CVA Cardiology was consulted- considering pacemaker placement. 09/26 - Received contact number from for Dimitris Nicholas ([phone]) pt's nephew. He resides in [place]. He is willing to help with decision making. He was updated on her current and previous hospitalization. He understands cardiology is considering placing a pacemaker and is in agreement with the plan. 09/27 s/p PPM placement w/ EP Has remained stabled PM dressing changed by cardiology service PM function checked- appropriately functioning will need to f/u with [facility] on discharge Febrile neutropeniaresolved Likely due to Clozapine Patient started to spike fever on 10/13 and 10/14 Chest x-ray no acute finding Pacemaker incision site without sign of infection Blood culture07/05 from 10/14/2023 growing gram positive bacilli. Repeat blood cx negative Urinalysis not suggestive of infection Was put on empiric antibiotics(Vancomycin and meropenem) --> ID evaluated 10/18, reports no concern of infection. Will monitor off antibiotic per ID r ecommendation.---> Remains afebrile Psychiatry evaluated; agree with holding clozapine. Can restart Zyprexa at 2.5 mg at bedtime if patient has psychiatric symptoms. Pt with reported crying spells, started on scheduled zyprexa 2.5mg qhs overnight on 11/13 Patient cannot ever be started on clozapine as per psychiatry. Possible UTI, rule out Patient reported lower abdominal pain on October 28, 2023 Urinalysis suggestive of infection Was initially placed on meropenem Urine culture3 types of organism; all moderate counts. Completed treatment, antibiotics discontinued NECK PAIN likely muscular Lidoderm Patch, Toradol PRN Resolved HEADACHE Possible migraine attack CT head no signs of acute process Imitrex as needed SORE THROAT likely allergy vs viral will place throat spray prn DIABETES TYPE 2 last a1c 5.9 05/2023 she has not been requiring sliding scale insulin Accu-Cheks and insulin d/c'd HYPERTENSION Chronic, stable Continue lisinopril HYPOTHYROIDISM TSH 2.2 continue levothyroxine BRAIN TUMOR S/P RESECTION SCHIZOPHRENIA Psychiatry evaluated, discontinue clozapine given low ANC/neutropenia. Continue to monitor for emergence of any psychiatric symptoms. May require alternative antipsychotics. It is recommended to trial olazapine 2.5mg at HS if symptoms recur. Pt with reported crying spells, started on scheduled zyprexa 2.5mg qhs on 11/13 Patient cannot ever be started on clozapine as per psychiatry. CONSTIPATION continue bowel regimen closely monitor, as pt has tendency for severe constipation (previous admission) abd. pain KUB was obtained 11/23 - shows moderate to large amount of stool - discussed with RN in detail-> gave enema, cont. bowel regimen. had BMs but persistent discomfort, will repeat KUB 11/26 also add carafate for abd. discomfort and will monitor DVT prophylaxis SQ Lovenox Dispo: CM following, guardianship paperwork in place, medically stable for discharge to rehab once guardianship in place Admission and Anticipated Discharge Date Admission Date: September 25, 2023 Subjective Pt seen in follow up + some mild abdominal pain - persistent and so KUB was obtained - showed moderate to large amount of stool - discussed with RN in detail - gave enema, cont. bowel regimen. had BM. continues to have persistent abdominal discomfort, abdomen not as soft today as before. Will repeat KUB. Check AM bloodwork Sitting up in chair in NAD denies fever, chills, chest pain, shortness of breath, nausea or vomiting Review of Systems Review of Systems: All systems reviewed & are unremarkable except as noted in Subjective Physical Exam Physical Exam: General- WD/WN F in NAD Head- atraumatic Eyes- PERRL, EOMI, anicteric Neck- supple, no JVD Lungs- clear to auscultation, no rales/wheezes Heart- rrr Abdomen- normal bowel sounds, soft but more distended, mildly tender to palp. Extremities- no pretibial edema, moves extremities Neuro- alert, able to answer simple questions appropriately however has poor memory, speech fluent, no facial asymmetry, moves extremities Skin- warm & dry Results & Data Results & Data Vital Signs (Past 12 Hours) Vital Signs Temp Pulse Resp BP Pulse Ox O2 Del Method 11/26/23 19:57 36.5 C 63 16 109/60 99 Room Air Medications Administered Current Inpatient Medications Acetaminophen (Acetaminophen 325 Mg Tab) 650 mg PO Q6H [facility] Stop: 12/26/23 19:59 Last Admin: 11/27/23 02:21 Dose: Not Given Aspirin (Aspirin 81 Mg Chew) 81 mg PO DAILY J[facility] Stop: 12/26/23 08:59 Last Admin: 11/26/23 08:52 Dose: 81 mg Atorvastatin Calcium (Atorvastatin 20 Mg Tab) 20 mg PO QAM [facility] Stop: 12/26/23 08:59 Last Admin: 11/26/23 08:52 Dose: 20 mg Bisacodyl (Bisacodyl 10 Mg Supp) 10 mg [place] QAM PRN PRN Reason: Constipation Stop: 12/26/23 16:09 Fluticasone Propionate (Fluticasone Propionate Na Spr 16 Gm Btl) 2 sprays NA DAILY [facility] Stop: 12/26/23 08:59 Last Admin: 11/26/23 07:32 Dose: 2 sprays Promethazine HCl 6.25 mg/ (Sodium Chloride) 50.25 mls @ 201 mls/hr IV Q6H PRN PRN Reason: Nausea And Vomiting Stop: 12/26/23 20:25 Magnesium Hydroxide (Magnesium Hydroxide Susp 30 Ml Udc) 30 ml PO BID [facility] Stop: 12/26/23 20:59 Last Admin: 11/26/23 20:04 Dose: 30 ml Magnesium Oxide (Magnesium Oxide 400 Mg Tab) 400 mg PO QAM [facility] Stop: 12/26/23 08:59 Last Admin: 11/26/23 10:19 Dose: 400 mg Multivitamins (Multivitamin Tab) 1 tab PO QAM [facility] Stop: 12/23/23 09:59 Last Admin: 11/26/23 07:31 Dose: 1 tab Olanzapine (Olanzapine Zydis 5 Mg Orally Dis. Tab) 2.5 mg PO HS [facility] Stop: 12/26/23 20:59 Last Admin: 11/26/23 20:04 Dose: 2.5 mg Pantoprazole Sodium (Pantoprazole 40 Mg Tab) 40 mg PO QAM [facility] Stop: 12/26/23 08:59 Last Admin: 11/26/23 08:52 Dose: 40 mg Phenol (Chloraseptic (Phenol) 1.4% Soln 180 Ml Btl) 1 sprays MT QID PRN PRN Reason: odynophagia Stop: 12/21/23 12:50 Polyethylene Glycol (Polyethylene (Miralax) 17 Gm Pack) 17 gm PO BID [facility] Stop: 12/23/23 20:59 Last Admin: 11/26/23 20:04 Dose: 17 gm Senna/Docusate Sodium (Docusate Sodium/Senna 50/8.6mg Tab) 1 tab PO BID [facility] Stop: 12/26/23 01:04 Last Admin: 11/26/23 20:05 Dose: 1 tab Simethicone (Simethicone 40 Mg/0.6 Ml 30ml) 80 mg PO Q6H PRN PRN Reason: Flatulence Stop: 12/26/23 16:11 Sucralfate (Sucralfate 1 Gm/10 Ml Udc) 1 gm PO QID [facility] Stop: 12/26/23 12:59 Last Admin: 11/26/23 20:04 Dose: 1 gm
[2023-11-27] MEDS ORDERED: MAGNESIUM HYDROXIDE SUSP 30 ML UDC PO PRN (14:07)
--- NOTE | 2023-11-27 16:01 | XRay Report ---
KUB CLINICAL HISTORY: Generalized abdominal pain. FINDINGS: 2 AP, portable, supine abdominal radiographs are compared to study dated 11/24/2023 and laina elated with abdominal CT dated 11/04/2023. There is a nonobstructed abdominal bowel gas pattern. Modera te fecal retention is seen throughout the colon. No evidence of intraperitoneal free air is identifie d on these supine images. A calcification in the right hemipelvis is similar to previous. The skeleta l structures are osteopenic and appear intact. There is mild/moderate lumbosacral spondylosis. Sclero tic change is again seen in the right iliac wing. IMPRESSION: No acute abnormality is identified. Electronically signed by: Patel Qiu M.D. 11/27/2023 4:00 PM
[2023-11-28 07:42] LABS: Hematocrit (blood only) 34.3 % (37.0-47.0); Hemoglobin 11.1 g/dl (12.0-16.0); Mean Corpuscular Hemoglobin 27.4 pg (25.0-34.0); Mean Corpuscular Hgb Conc 32.4 g/dL (32.0-36.0); Mean Corpuscular Volume 84.7 fL (80.0-100.0); Mean Platelet Volume 10.2 fL (9.4-12.4); Platelet Count 190 K/uL (130-400); RDW Coefficient of Variation 15.4 % (11.5-14.5); RDW Standard Deviation 47.8 fL (36.4-46.3); Red Blood Count 4.05 M/uL (4.20-5.40); White Blood Count 3.89 K/ul (4.8-10.8)
[2023-11-28 08:05] LABS: BUN Creatinine Ratio 47.3 (10-20); Calcium 9.4 mg/dl (8.6-10.3); Creatinine Clr Calc Pharmacy 75.2 ml/min; Est GFR (African American) 107.1 ml/min; Est GFR (Non-African American) 92.4 ml/min; Phosphorus 4.3 mg/dl (2.5-4.9); Potassium 4.2 mmol/L (3.5-5.1)
--- NOTE | 2023-11-28 13:20 | Hospitalist Progress Note ---
Date of Service November 28, 2023 Assessment & Plan (1) Weakness: (2) Syncope: Plan: Pt is a 73 yo female with history of diabetes type 2, hypertension, dyslipidemia, hypothyroidism, brain tumor s/p resection, schizophrenia, migraine, anemia, recurrent UTIs who presented to the hospital after being discharged from [facility] on the day prior to admission. Patient noted to have hypotension, bradycardia for which antihypertensives were removed. She is currently awaiting guardianship hearing for placement. Per hearing scheduled for December 04. WEAKNESS, SYNCOPE LIKELY SECONDARY TO ORTHOSTATIC HYPOTENSION,POSSIBLE UNDERLYING SICK SINUS SYNDROME Patient was previously admitted to [facility] for pneumonia, respiratory failure s/p intubation, UTI, delirium, stercoral colitis from cons tipation (discharged 09/14/2023) And was observed to have bradycardia, metoprolol reduced in dose. While at [facility], patient noted to have borderline blood pressure and bradycardia. Amlodipine, lisinopril, metoprolol subsequently discontinued She was discharged from [facility]hab the day prior to admission She presented with weakness and syncope in the setting of marginal blood pressure and sinus bradycardia in the 50s She had dry oral mucosa and low sodium indicating dehydration. CVA was ruled out Brain MRI - no acute CVA Cardiology was consulted- considering pacemaker placement. 09/26 - Received contact number from for Dimitris Nicholas ([phone]) pt's nephew. He resides in [place]. He is willing to help with decision making. He was updated on her current and previous hospitalization. He understands cardiology is considering placing a pacemaker and is in agreement with the plan. 09/27 s/p PPM placement w/ EP Has remained stabled PM dressing changed by cardiology service PM function checked- appropriately functioning will need to f/u with Charge Nurse on discharge Febrile neutropeniaresolved Likely due to Clozapine Patient started to spike fever on 10/13 and 10/14 Chest x-ray no acute finding Pacemaker incision site without sign of infection Blood culture07/05 from 10/14/2023 growing gram positive bacilli. Repeat blood cx negative Urinalysis not suggestive of infection Was put on empiric antibiotics(Vancomycin and meropenem) --> ID evaluated 10/18, reports no concern of infection. Will monitor off antibiotic per ID r ecommendation.---> Remains afebrile Psychiatry evaluated; agree with holding clozapine. Can restart Zyprexa at 2.5 mg at bedtime if patient has psychiatric symptoms. Pt with reported crying spells, started on scheduled zyprexa 2.5mg qhs overnight on 11/13 Patient cannot ever be started on clozapine as per psychiatry. Possible UTI, rule out Patient reported lower abdominal pain on October 28, 2023 Urinalysis suggestive of infection Was initially placed on meropenem Urine culture3 types of organism; all moderate counts. Completed treatment, antibiotics discontinued NECK PAIN likely muscular Lidoderm Patch, Toradol PRN Resolved HEADACHE Possible migraine attack CT head no signs of acute process Imitrex as needed SORE THROAT likely allergy vs viral will place throat spray prn DIABETES TYPE 2 last a1c 5.9 05/2023 she has not been requiring sliding scale insulin Accu-Cheks and insulin d/c'd HYPERTENSION Chronic, stable Continue lisinopril HYPOTHYROIDISM TSH 2.2 continue levothyroxine BRAIN TUMOR S/P RESECTION SCHIZOPHRENIA Psychiatry evaluated, discontinue clozapine given low ANC/neutropenia. Continue to monitor for emergence of any psychiatric symptoms. May require alternative antipsychotics. It is recommended to trial olazapine 2.5mg at HS if symptoms recur. Pt with reported crying spells, started on scheduled zyprexa 2.5mg qhs on 11/13 Patient cannot ever be started on clozapine as per psychiatry. CONSTIPATION continue bowel regimen closely monitor, as pt has tendency for severe constipation (previous admission) abd. pain KUB was obtained 11/23 - shows moderate to large amount of stool - discussed with RN in detail-> gave enema, cont. bowel regimen. had BMs but persistent discomfort repeat KUB shows no abnormality continue current bowel regimen, nursing states pt is going DVT prophylaxis SQ Lovenox Dispo: CM following, guardianship paperwork in place, medically stable for discharge to rehab once guardianship in place A total of 35 minutes was spent coordinating, documenting, and providing care for this patient excluding time spent in the performance of separately billed services. This included personally viewing all current laboratories and imaging studies, medication reconciliation, outpatient chart review, and discussion with specialists. Admission and Anticipated Discharge Date Admission Date: September 25, 2023 Supervising Physician Co-Signing Physician Notes I saw and examined the patient at bedside independently. I discussed the case with Connie MONTELONGO and agree with the note above. She is stable and awaiting decision on legal guardianship which is scheduled for December 04. Subjective Patient was seen and examined in 378 -[id number]. F/U Syncope, constipation. She continues to complain of belly pain. ROS unreliable due to cognition. Nursing states she is moving bowels. Review of Systems Review of Systems: All systems reviewed & are unremarkable except as noted in Subjective and Unobtainable due to cognitive status Physical Exam Physical Exam: Gen: Thin, elderly, F, sitting up in bedside chair, NAD, A&O x3 basics only HEENT: Normocephalic, atraumatic, conjunctivae moist, sclerae anicteric, mucous membranes moist. Lung: Clear to Auscultation bilaterally, no wheezes/rales/rhonchi Heart: Regular rate, regular rhythm, no murmurs, rubs, or gallops Abdomen: Soft, NT, ND +BS x 4 Extremities: No edema Skin: Warm, no rash, negative turgor. Results & Data Results & Data Vital Signs (Past 12 Hours) Vital Signs Temp Pulse Resp BP Pulse Ox O2 Del Method 11/28/23 07:49 36.3 C L 60 16 154/79 H 99 Room Air Medications Administered Current Inpatient Medications Acetaminophen (Acetaminophen 325 Mg Tab) 650 mg PO Q6H JAMEL Stop: 12/26/23 19:59 Last Admin: 11/28/23 13:02 Dose: 650 mg Aspirin (Aspirin 81 Mg Chew) 81 mg PO DAILY JAMEL Stop: 12/26/23 08:59 Last Admin: 11/28/23 09:01 Dose: 81 mg Atorvastatin Calcium (Atorvastatin 20 Mg Tab) 20 mg PO QAM JAMEL Stop: 12/26/23 08:59 Last Admin: 11/28/23 09:01 Dose: 20 mg Bisacodyl (Bisacodyl 10 Mg Supp) 10 mg NH QAM PRN PRN Reason: Constipation Stop: 12/26/23 16:09 Fluticasone Propionate (Fluticasone Propionate Na Spr 16 Gm Btl) 2 sprays NA DAILY JAMEL Stop: 12/26/23 08:59 Last Admin: 11/28/23 09:05 Dose: 2 sprays Promethazine HCl 6.25 mg/ (Sodium Chloride) 50.25 mls @ 201 mls/hr IV Q6H PRN PRN Reason: Nausea And Vomiting Stop: 12/26/23 20:25 Magnesium Hydroxide (Magnesium Hydroxide Susp 30 Ml Udc) 30 ml PO BID PRN PRN Reason: constipation Stop: 12/26/23 20:59 Magnesium Oxide (Magnesium Oxide 400 Mg Tab) 400 mg PO QAM [facility] Stop: 12/26/23 08:59 Last Admin: 11/28/23 09:02 Dose: 400 mg Multivitamins (Multivitamin Tab) 1 tab PO QAM JAMEL Stop: 12/23/23 09:59 Last Admin: 11/28/23 09:02 Dose: 1 tab Olanzapine (Olanzapine Zydis 5 Mg Orally Dis. Tab) 2.5 mg PO HS [facility] Stop: 12/26/23 20:59 Last Admin: 11/27/23 20:04 Dose: 2.5 mg Pantoprazole Sodium (Pantoprazole 40 Mg Tab) 40 mg PO QAM [facility] Stop: 12/26/23 08:59 Last Admin: 11/28/23 09:01 Dose: 40 mg Phenol (Chloraseptic (Phenol) 1.4% Soln 180 Ml Btl) 1 sprays MT QID PRN PRN Reason: odynophagia Stop: 12/21/23 12:50 Polyethylene Glycol (Polyethylene (Miralax) 17 Gm Pack) 17 gm PO BID [facility] Stop: 12/23/23 20:59 Last Admin: 11/28/23 08:59 Dose: 17 gm Senna/Docusate Sodium (Docusate Sodium/Senna 50/8.6mg Tab) 1 tab PO BID [facility] Stop: 12/26/23 01:04 Last Admin: 11/28/23 09:03 Dose: 1 tab Simethicone (Simethicone 40 Mg/0.6 Ml 30ml) 80 mg PO Q6H PRN PRN Reason: Flatulence Stop: 12/26/23 16:11 Sucralfate (Sucralfate 1 Gm/10 Ml Udc) 1 gm PO QID JAMEL Stop: 12/26/23 12:59 Last Admin: 11/28/23 13:02 Dose: 1 gm
--- NOTE | 2023-11-29 15:23 | Hospitalist Progress Note ---
Date of Service November 29, 2023 Assessment & Plan (1) Weakness: (2) Syncope: Plan: Pt is a 73 yo female with history of diabetes type 2, hypertension, dyslipidemia, hypothyroidism, brain tumor s/p resection, schizophrenia, migraine, anemia, recurrent UTIs who presented to the hospital after being discharged from [facility] on the day prior to admission. Patient noted to have hypotension, bradycardia for which antihypertensives were removed. She is currently awaiting guardianship hearing for placement. Per hearing scheduled for December 04. WEAKNESS, SYNCOPE LIKELY SECONDARY TO ORTHOSTATIC HYPOTENSION,POSSIBLE UNDERLYING SICK SINUS SYNDROME Patient was previously admitted to [facility] for pneumonia, respiratory failure s/p intubation, UTI, delirium, stercoral colitis from cons tipation (discharged 09/14/2023) And was observed to have bradycardia, metoprolol reduced in dose. While at [facility], patient noted to have borderline blood pressure and bradycardia. Amlodipine, lisinopril, metoprolol subsequently discontinued She was discharged from [facility] the day prior to admission She presented with weakness and syncope in the setting of marginal blood pressure and sinus bradycardia in the 50s She had dry oral mucosa and low sodium indicating dehydration. CVA was ruled out Brain MRI - no acute CVA Cardiology was consulted- considering pacemaker placement. 09/26 - Received contact number from for Dimitris Nicholas ([phone]) pt's nephew. He resides in [place]. He is willing to help with decision making. He was updated on her current and previous hospitalization. He understands cardiology is considering placing a pacemaker and is in agreement with the plan. 09/27 s/p PPM placement w/ EP Has remained stabled PM dressing changed by cardiology service PM function checked- appropriately functioning will need to f/u with Store Worker on discharge Febrile neutropeniaresolved Likely due to Clozapine Patient started to spike fever on 10/13 and 10/14 Chest x-ray no acute finding Pacemaker incision site without sign of infection Blood culture07/05 from 10/14/2023 growing gram positive bacilli. Repeat blood cx negative Urinalysis not suggestive of infection Was put on empiric antibiotics(Vancomycin and meropenem) --> ID evaluated 10/18, reports no concern of infection. Will monitor off antibiotic per ID r ecommendation.---> Remains afebrile Psychiatry evaluated; agree with holding clozapine. Can restart Zyprexa at 2.5 mg at bedtime if patient has psychiatric symptoms. Pt with reported crying spells, started on scheduled zyprexa 2.5mg qhs overnight on 11/13 Patient cannot ever be started on clozapine as per psychiatry. DIABETES TYPE 2 last a1c 5.9 05/2023 she has not been requiring sliding scale insulin Accu-Cheks and insulin d/c'd HYPERTENSION Chronic, stable Continue lisinopril HYPOTHYROIDISM TSH 2.2 continue levothyroxine BRAIN TUMOR S/P RESECTION SCHIZOPHRENIA Psychiatry evaluated, discontinue clozapine given low ANC/neutropenia. Continue to monitor for emergence of any psychiatric symptoms. May require alternative antipsychotics. It is recommended to trial olazapine 2.5mg at HS if symptoms recur. Pt with reported crying spells, started on scheduled zyprexa 2.5mg qhs on 11/13 Patient cannot ever be started on clozapine as per psychiatry. CONSTIPATION continue bowel regimen closely monitor, as pt has tendency for severe constipation (previous admission) abd. pain KUB was obtained 11/23 - shows moderate to large amount of stool - discussed with RN in detail-> gave enema, cont. bowel regimen. had BMs but persistent discomfort repeat KUB shows no abnormality continue current bowel regimen, nursing states pt is going DVT prophylaxis- sc lovenox Dispo: CM following, guardianship paperwork in place, medically stable for discharge to rehab once guardianship in place Time spent: 35 mins Admission and Anticipated Discharge Date Admission Date: September 25, 2023 Subjective Patient was seen and examined at bedside. She feels fine. Denies any fever, chills, CP, SOB, N/V. Does complain of some abdominal discomfort. Review of Systems Review of Systems: All systems reviewed & are unremarkable except as noted in Subjective Physical Exam Physical Exam: General: Thin elderly female, lying comfortably in bed, not in distress, on room air HEENT: EOMI, RADHA, MMM Chest: Clear breath sounds bilaterally, no wheezes or crackles CVS: Regular rate and rhythm, normal heart sounds, no murmur Abdomen: Soft, non tender, not distended, normal bowel sounds Neuro: Awake, alert, oriented, conversing appropriately Extremities: No cyanosis, clubbing or edema Results & Data Results & Data Vital Signs (Past 12 Hours) Vital Signs Temp Pulse Pulse Resp BP Pulse Ox O2 Del Method 11/29/23 14:43 37.0 C 60 16 113/61 98 Room Air 11/29/23 08:25 152/82 H 11/29/23 07:25 36.4 C 61 16 162/82 H 100 Room Air
--- NOTE | 2023-11-30 16:12 | Hospitalist Progress Note ---
Date of Service November 30, 2023 Assessment & Plan (1) Weakness: (2) Syncope: Plan: Pt is a 73 yo female with history of diabetes type 2, hypertension, dyslipidemia, hypothyroidism, brain tumor s/p resection, schizophrenia, migraine, anemia, recurrent UTIs who presented to the hospital after being discharged from [facility] on the day prior to admission. Patient noted to have hypotension, bradycardia for which antihypertensives were removed. She is currently awaiting guardianship hearing for placement. Per hearing scheduled for December 04. WEAKNESS, SYNCOPE LIKELY SECONDARY TO ORTHOSTATIC HYPOTENSION,POSSIBLE UNDERLYING SICK SINUS SYNDROME Patient was previously admitted to [facility] for pneumonia, respiratory failure s/p intubation, UTI, delirium, stercoral colitis from cons tipation (discharged 09/14/2023) And was observed to have bradycardia, metoprolol reduced in dose. While at [facility] rehab, patient noted to have borderline blood pressure and bradycardia. Amlodipine, lisinopril, metoprolol subsequently discontinued She was discharged from [facility] the day prior to admission She presented with weakness and syncope in the setting of marginal blood pressure and sinus bradycardia in the 50s She had dry oral mucosa and low sodium indicating dehydration. CVA was ruled out Brain MRI - no acute CVA Cardiology was consulted- considering pacemaker placement. 09/26 - Received contact number from for Dimitris Nicholas ([phone]) pt's nephew. He resides in [place]. He is willing to help with decision making. He was updated on her current and previous hospitalization. He understands cardiology is considering placing a pacemaker and is in agreement with the plan. 09/27 s/p PPM placement w/ EP Has remained stabled PM dressing changed by cardiology service PM function checked- appropriately functioning will need to f/u with Business Systems Administrator on discharge Febrile neutropeniaresolved Likely due to Clozapine Patient started to spike fever on 10/13 and 10/14 Chest x-ray no acute finding Pacemaker incision site without sign of infection Blood culture07/05 from 10/14/2023 growing gram positive bacilli. Repeat blood cx negative Urinalysis not suggestive of infection Was put on empiric antibiotics(Vancomycin and meropenem) --> ID evaluated 10/18, reports no concern of infection. Will monitor off antibiotic per ID r ecommendation.---> Remains afebrile Psychiatry evaluated; agree with holding clozapine. Can restart Zyprexa at 2.5 mg at bedtime if patient has psychiatric symptoms. Pt with reported crying spells, started on scheduled zyprexa 2.5mg qhs overnight on 11/13 Patient cannot ever be started on clozapine as per psychiatry. DIABETES TYPE 2 last a1c 5.9 05/2023 she has not been requiring sliding scale insulin Accu-Cheks and insulin d/c'd HYPERTENSION Chronic, stable Continue lisinopril HYPOTHYROIDISM TSH 2.2 continue levothyroxine BRAIN TUMOR S/P RESECTION SCHIZOPHRENIA Psychiatry evaluated, discontinue clozapine given low ANC/neutropenia. Continue to monitor for emergence of any psychiatric symptoms. May require alternative antipsychotics. It is recommended to trial olazapine 2.5mg at HS if symptoms recur. Pt with reported crying spells, started on scheduled zyprexa 2.5mg qhs on 11/13 Patient cannot ever be started on clozapine as per psychiatry. CONSTIPATION continue bowel regimen closely monitor, as pt has tendency for severe constipation (previous admission) abd. pain KUB was obtained 11/23 - shows moderate to large amount of stool - discussed with RN in detail-> gave enema, cont. bowel regimen. had BMs but persistent discomfort repeat KUB shows no abnormality continue current bowel regimen, nursing states pt is going DVT prophylaxis- sc lovenox Dispo: CM following, guardianship paperwork in place, medically stable for discharge to rehab once guardianship in place Time spent: 20 mins Admission and Anticipated Discharge Date Admission Date: September 25, 2023 Subjective patient was seen and examined bedside. She feels fine except for some abdominal discomfort which is not unusual for her. She is awake alert, conversing appropriately but forgetful. States she does not remember me at all although I been seeing her every day. states her diarrhea is improved. Review of Systems Review of Systems: All systems reviewed & are unremarkable except as noted in Subjective Physical Exam Physical Exam: General: Thin elderly female, lying comfortably in bed, not in distress, on room air HEENT: EOMI, RADHA, MMM Chest: Clear breath sounds bilaterally, no wheezes or crackles CVS: Regular rate and rhythm, normal heart sounds, no murmur Abdomen: Soft, non tender, not distended, normal bowel sounds Neuro: Awake, alert, oriented, conversing appropriately Extremities: No cyanosis, clubbing or edema Results & Data Results & Data Vital Signs (Past 12 Hours) Vital Signs Temp Pulse Pulse Resp BP Pulse Ox O2 Del Method 11/30/23 14:49 37.1 C 65 16 107/59 L 97 Room Air 11/30/23 11:54 36.4 C L 60 16 118/68 94 Room Air 11/30/23 07:50 Room Air 11/30/23 07:48 36.6 C 69 16 120/72 100 Room Air 11/30/23 07:06 36.3 C L 60 16 168/85 H 100 Room Air
--- NOTE | 2023-12-01 18:47 | Hospitalist Progress Note ---
Date of Service December 01, 2023 Assessment & Plan (1) Weakness: (2) Syncope: Plan: Pt is a 73 yo female with history of diabetes type 2, hypertension, dyslipidemia, hypothyroidism, brain tumor s/p resection, schizophrenia, migraine, anemia, recurrent UTIs who presented to the hospital after being discharged from [facility] on the day prior to admission. Patient noted to have hypotension, bradycardia for which antihypertensives were removed. She is currently awaiting guardianship hearing for placement. Per hearing scheduled for December 04. WEAKNESS, SYNCOPE LIKELY SECONDARY TO ORTHOSTATIC HYPOTENSION,POSSIBLE UNDERLYING SICK SINUS SYNDROME Patient was previously admitted to [facility] for pneumonia, respiratory failure s/p intubation, UTI, delirium, stercoral colitis from [facility] (discharged 09/14/2023) And was observed to have bradycardia, metoprolol reduced in dose. While at [facility] rehab, patient noted to have borderline blood pressure and bradycardia. Amlodipine, lisinopril, metoprolol subsequently discontinued She was discharged from [facility] rehab the day prior to admission She presented with weakness and syncope in the setting of marginal blood pressure and sinus bradycardia in the 50s She had dry oral mucosa and low sodium indicating dehydration. CVA was ruled out Brain MRI - no acute CVA Cardiology was consulted- considering pacemaker placement. 09/26 - Received contact number from for Dimitris Nicholas ([phone]) pt's nephew. He resides in [place]. He is willing to help with decision making. He was updated on her current and previous hospitalization. He understands cardiology is considering placing a pacemaker and is in agreement with the plan. 09/27 s/p PPM placement w/ EP Has remained stabled PM dressing changed by cardiology service PM function checked- appropriately functioning will need to f/u with [facility] on discharge Febrile neutropeniaresolved Likely due to Clozapine Patient started to spike fever on 10/13 and 10/14 Chest x-ray no acute finding Pacemaker incision site without sign of infection Blood culture07/05 from 10/14/2023 growing gram positive bacilli. Repeat blood cx negative Urinalysis not suggestive of infection Was put on empiric antibiotics(Vancomycin and meropenem) --> ID evaluated 10/18, reports no concern of infection. Will monitor off antibiotic per ID r ecommendation.---> Remains afebrile Psychiatry evaluated; agree with holding clozapine. Can restart Zyprexa at 2.5 mg at bedtime if patient has psychiatric symptoms. Pt with reported crying spells, started on scheduled zyprexa 2.5mg qhs overnight on 11/13 Patient cannot ever be started on clozapine as per psychiatry. DIABETES TYPE 2 last a1c 5.9 05/2023 she has not been requiring sliding scale insulin Accu-Cheks and insulin d/c'd HYPERTENSION Chronic, stable Continue lisinopril HYPOTHYROIDISM TSH 2.2 continue levothyroxine BRAIN TUMOR S/P RESECTION SCHIZOPHRENIA Psychiatry evaluated, discontinue clozapine given low ANC/neutropenia. Continue to monitor for emergence of any psychiatric symptoms. May require alternative antipsychotics. It is recommended to trial olazapine 2.5mg at HS if symptoms recur. Pt with reported crying spells, started on scheduled zyprexa 2.5mg qhs on 11/13 Patient cannot ever be started on clozapine as per psychiatry. CONSTIPATION continue bowel regimen closely monitor, as pt has tendency for severe constipation (previous admission) abd. pain KUB was obtained 11/23 - shows moderate to large amount of stool - discussed with RN in detail-> gave enema, cont. bowel regimen. had BMs but persistent discomfort repeat KUB shows no abnormality continue current bowel regimen, nursing states pt is going DVT prophylaxis- sc lovenox Dispo: CM following, guardianship paperwork in place, medically stable for discharge to rehab once guardianship in place Time spent: 20 mins Admission and Anticipated Discharge Date Admission Date: September 25, 2023 Subjective patient was seen and examined at bedside. She feels fine. States diarrhea and discomfort is improved. She recalls me from yesterday. She denies any ongoing issues. Review of Systems Review of Systems: All systems reviewed & are unremarkable except as noted in Subjective Physical Exam Physical Exam: General: Thin elderly female, Sitting in chair, not in distress, on room air HEENT: EOMI, RADHA, MMM Chest: Clear breath sounds bilaterally, no wheezes or crackles CVS: Regular rate and rhythm, normal heart sounds, no murmur Abdomen: Soft, non tender, not distended, normal bowel sounds Neuro: Awake, alert, oriented, conversing appropriately Extremities: No cyanosis, clubbing or edema Results & Data Results & Data Vital Signs (Past 12 Hours) Vital Signs Temp Pulse Resp BP Pulse Ox O2 Del Method 12/01/23 15:20 36.7 C 66 18 111/69 98 Room Air 12/01/23 07:53 36.7 C 67 18 158/80 H 99 Room Air 12/01/23 07:42 Room Air
--- NOTE | 2023-12-02 15:53 | Hospitalist Progress Note ---
Date of Service December 02, 2023 Assessment & Plan (1) Weakness: (2) Syncope: Plan: Pt is a 73 yo female with history of diabetes type 2, hypertension, dyslipidemia, hypothyroidism, brain tumor s/p resection, schizophrenia, migraine, anemia, recurrent UTIs who presented to the hospital after being discharged from [facility] on the day prior to admission. Patient noted to have hypotension, bradycardia for which antihypertensives were removed. She is currently awaiting guardianship hearing for placement. Per hearing scheduled for December 04. WEAKNESS, SYNCOPE LIKELY SECONDARY TO ORTHOSTATIC HYPOTENSION,POSSIBLE UNDERLYING SICK SINUS SYNDROME Patient was previously admitted to [facility] for pneumonia, respiratory failure s/p intubation, UTI, delirium, stercoral colitis from [facility] (discharged 09/14/2023) And was observed to have bradycardia, metoprolol reduced in dose. While at [facility], patient noted to have borderline blood pressure and bradycardia. Amlodipine, lisinopril, metoprolol subsequently discontinued She was discharged from [facility] the day prior to admission She presented with weakness and syncope in the setting of marginal blood pressure and sinus bradycardia in the 50s She had dry oral mucosa and low sodium indicating dehydration. CVA was ruled out Brain MRI - no acute CVA Cardiology was consulted- considering pacemaker placement. 09/26 - Received contact number from for Dimitris Nicholas ([phone]) pt's nephew. He resides in [place]. He is willing to help with decision making. He was updated on her current and previous hospitalization. He understands cardiology is considering placing a pacemaker and is in agreement with the plan. 09/27 s/p PPM placement w/ EP Has remained stabled PM dressing changed by cardiology service PM function checked- appropriately functioning will need to f/u with Insect Control Aide on discharge Febrile neutropeniaresolved Likely due to Clozapine Patient started to spike fever on 10/13 and 10/14 Chest x-ray no acute finding Pacemaker incision site without sign of infection Blood culture07/05 from 10/14/2023 growing gram positive bacilli. Repeat blood cx negative Urinalysis not suggestive of infection Was put on empiric antibiotics(Vancomycin and meropenem) --> ID evaluated 10/18, reports no concern of infection. Will monitor off antibiotic per ID r ecommendation.---> Remains afebrile Psychiatry evaluated; agree with holding clozapine. Can restart Zyprexa at 2.5 mg at bedtime if patient has psychiatric symptoms. Pt with reported crying spells, started on scheduled zyprexa 2.5mg qhs overnight on 11/13 Patient cannot ever be started on clozapine as per psychiatry. DIABETES TYPE 2 last a1c 5.9 05/2023 she has not been requiring sliding scale insulin Accu-Cheks and insulin d/c'd HYPERTENSION Chronic, stable Continue lisinopril HYPOTHYROIDISM TSH 2.2 continue levothyroxine BRAIN TUMOR S/P RESECTION SCHIZOPHRENIA Psychiatry evaluated, discontinue clozapine given low ANC/neutropenia. Continue to monitor for emergence of any psychiatric symptoms. May require alternative antipsychotics. It is recommended to trial olazapine 2.5mg at HS if symptoms recur. Pt with reported crying spells, started on scheduled zyprexa 2.5mg qhs on 11/13 Patient cannot ever be started on clozapine as per psychiatry. CONSTIPATION continue bowel regimen closely monitor, as pt has tendency for severe constipation (previous admission) abd. pain KUB was obtained 11/23 - shows moderate to large amount of stool - discussed with RN in detail-> gave enema, cont. bowel regimen. had BMs but persistent discomfort repeat KUB shows no abnormality continue current bowel regimen, nursing states pt is going DVT prophylaxis- sc lovenox Dispo: CM following, guardianship paperwork in place, medically stable for discharge to rehab once guardianship in place Time spent: 25 mins Admission and Anticipated Discharge Date Admission Date: September 25, 2023 Subjective Patient was seen and examined bedside. She is sitting in chair eating breakfast. She states she feels fine. She denies any ongoing issues. No shortness of breath, vomiting, fever or chills. Review of Systems Review of Systems: All systems reviewed & are unremarkable except as noted in Subjective Physical Exam Physical Exam: General: Thin elderly female, Sitting in chair, not in distress, on room air HEENT: EOMI, RADHA, MMM Chest: Clear breath sounds bilaterally, no wheezes or crackles CVS: Regular rate and rhythm, normal heart sounds, no murmur Abdomen: Soft, non tender, not distended, normal bowel sounds Neuro: Awake, alert, oriented, conversing appropriately Extremities: No cyanosis, clubbing or edema Results & Data Results & Data Vital Signs (Past 12 Hours) Vital Signs Temp Pulse Resp BP BP Pulse Ox O2 Del Method 12/02/23 08:33 123/68 12/02/23 08:10 Room Air 12/02/23 08:04 36.4 C L 69 18 170/91 H 100 Room Air
--- NOTE | 2023-12-03 14:47 | Hospitalist Progress Note ---
Date of Service December 03, 2023 Assessment & Plan (1) Weakness: (2) Syncope: Plan: Pt is a 73 yo female with history of diabetes type 2, hypertension, dyslipidemia, hypothyroidism, brain tumor s/p resection, schizophrenia, migraine, anemia, recurrent UTIs who presented to the hospital after being discharged from [facility] on the day prior to admission. Patient noted to have hypotension, bradycardia for which antihypertensives were removed. She is currently awaiting guardianship hearing for placement. Per hearing scheduled for December 04. WEAKNESS, SYNCOPE LIKELY SECONDARY TO ORTHOSTATIC HYPOTENSION,POSSIBLE UNDERLYING SICK SINUS SYNDROME Patient was previously admitted to [facility] for pneumonia, respiratory failure s/p intubation, UTI, delirium, stercoral colitis from cons [facility]ation (discharged 09/14/2023) And was observed to have bradycardia, metoprolol reduced in dose. While at [facility] rehab, patient noted to have borderline blood pressure and bradycardia. Amlodipine, lisinopril, metoprolol subsequently discontinued She was discharged from [facility] the day prior to admission She presented with weakness and syncope in the setting of marginal blood pressure and sinus bradycardia in the 50s She had dry oral mucosa and low sodium indicating dehydration. CVA was ruled out Brain MRI - no acute CVA Cardiology was consulted- considering pacemaker placement. 09/26 - Received contact number from for Dimitris Nicholas ([phone]) pt's nephew. He resides in [place]. He is willing to help with decision making. He was updated on her current and previous hospitalization. He understands cardiology is considering placing a pacemaker and is in agreement with the plan. 09/27 s/p PPM placement w/ EP Has remained stabled PM dressing changed by cardiology service PM function checked- appropriately functioning will need to f/u with [employer] on discharge Febrile neutropeniaresolved Likely due to Clozapine Patient started to spike fever on 10/13 and 10/14 Chest x-ray no acute finding Pacemaker incision site without sign of infection Blood culture07/05 from 10/14/2023 growing gram positive bacilli. Repeat blood cx negative Urinalysis not suggestive of infection Was put on empiric antibiotics(Vancomycin and meropenem) --> ID evaluated 10/18, reports no concern of infection. Will monitor off antibiotic per ID r ecommendation.---> Remains afebrile Psychiatry evaluated; agree with holding clozapine. Can restart Zyprexa at 2.5 mg at bedtime if patient has psychiatric symptoms. Pt with reported crying spells, started on scheduled zyprexa 2.5mg qhs overnight on 11/13 Patient cannot ever be started on clozapine as per psychiatry. DIABETES TYPE 2 last a1c 5.9 05/2023 she has not been requiring sliding scale insulin Accu-Cheks and insulin d/c'd HYPERTENSION Chronic, stable Continue lisinopril HYPOTHYROIDISM TSH 2.2 continue levothyroxine BRAIN TUMOR S/P RESECTION SCHIZOPHRENIA Psychiatry evaluated, discontinue clozapine given low ANC/neutropenia. Continue to monitor for emergence of any psychiatric symptoms. May require alternative antipsychotics. It is recommended to trial olazapine 2.5mg at HS if symptoms recur. Pt with reported crying spells, started on scheduled zyprexa 2.5mg qhs on 11/13 Patient cannot ever be started on clozapine as per psychiatry. CONSTIPATION continue bowel regimen closely monitor, as pt has tendency for severe constipation (previous admission) abd. pain KUB was obtained 11/23 - shows moderate to large amount of stool - discussed with RN in detail-> gave enema, cont. bowel regimen. had BMs but persistent discomfort repeat KUB shows no abnormality continue current bowel regimen, nursing states pt is going DVT prophylaxis- sc lovenox Dispo: CM following, guardianship paperwork in place, medically stable for discharge to rehab once guardianship in place Admission and Anticipated Discharge Date Admission Date: September 25, 2023 Subjective Patient was seen and examined at bedside. She feels fine. No new issues. no fever, chills, CP, SOB, N/V. Review of Systems Review of Systems: All systems reviewed & are unremarkable except as noted in Subjective Physical Exam Physical Exam: General: Thin elderly female, Sitting in chair, not in distress, on room air HEENT: EOMI, RADHA, MMM Chest: Clear breath sounds bilaterally, no wheezes or crackles CVS: Regular rate and rhythm, normal heart sounds, no murmur Abdomen: Soft, non tender, not distended, normal bowel sounds Neuro: Awake, alert, oriented, conversing appropriately Extremities: No cyanosis, clubbing or edema Results & Data Results & Data Vital Signs (Past 12 Hours) Vital Signs Temp Pulse Resp BP Pulse Ox O2 Del Method 12/03/23 07:20 36.5 C 65 18 162/82 H 99 Room Air
--- NOTE | 2023-12-04 12:35 | Hospitalist Progress Note ---
Date of Service December 04, 2023 Assessment & Plan (1) Weakness: (2) Syncope: Plan: Pt is a 73 yo female with history of diabetes type 2, hypertension, dyslipidemia, hypothyroidism, brain tumor s/p resection, schizophrenia, migraine, anemia, recurrent UTIs who presented to the hospital after being discharged from [facility] on the day prior to admission. Patient noted to have hypotension, bradycardia for which antihypertensives were removed. She is currently awaiting guardianship hearing for placement. Per hearing scheduled for December 04. WEAKNESS, SYNCOPE LIKELY SECONDARY TO ORTHOSTATIC HYPOTENSION,POSSIBLE UNDERLYING SICK SINUS SYNDROME Patient was previously admitted to [facility] for pneumonia, respiratory failure s/p intubation, UTI, delirium, stercoral colitis from [facility] (discharged 09/14/2023) And was observed to have bradycardia, metoprolol reduced in dose. While at [facility] rehab, patient noted to have borderline blood pressure and bradycardia. Amlodipine, lisinopril, metoprolol subsequently discontinued She was discharged from [facility] rehab the day prior to admission She presented with weakness and syncope in the setting of marginal blood pressure and sinus bradycardia in the 50s She had dry oral mucosa and low sodium indicating dehydration. CVA was ruled out Brain MRI - no acute CVA Cardiology was consulted- considering pacemaker placement. 09/26 - Received contact number from for Dimitris Nicholas ([phone]) pt's nephew. He resides in [place]. He is willing to help with decision making. He was updated on her current and previous hospitalization. He understands cardiology is considering placing a pacemaker and is in agreement with the plan. 09/27 s/p PPM placement w/ EP Has remained stabled PM dressing changed by cardiology service PM function checked- appropriately functioning will need to f/u with [employer] Clerk on discharge Febrile neutropeniaresolved Likely due to Clozapine Patient started to spike fever on 10/13 and 10/14 Chest x-ray no acute finding Pacemaker incision site without sign of infection Blood culture07/05 from 10/14/2023 growing gram positive bacilli. Repeat blood cx negative Urinalysis not suggestive of infection Was put on empiric antibiotics(Vancomycin and meropenem) --> ID evaluated 10/18, reports no concern of infection. Will monitor off antibiotic per ID r ecommendation.---> Remains afebrile Psychiatry evaluated; agree with holding clozapine. Can restart Zyprexa at 2.5 mg at bedtime if patient has psychiatric symptoms. Pt with reported crying spells, started on scheduled zyprexa 2.5mg qhs overnight on 11/13 Patient cannot ever be started on clozapine as per psychiatry. DIABETES TYPE 2 last a1c 5.9 05/2023 she has not been requiring sliding scale insulin Accu-Cheks and insulin d/c'd HYPERTENSION Chronic, stable Continue lisinopril HYPOTHYROIDISM TSH 2.2 continue levothyroxine BRAIN TUMOR S/P RESECTION SCHIZOPHRENIA Psychiatry evaluated, discontinue clozapine given low ANC/neutropenia. Continue to monitor for emergence of any psychiatric symptoms. May require alternative antipsychotics. It is recommended to trial olazapine 2.5mg at HS if symptoms recur. Pt with reported crying spells, started on scheduled zyprexa 2.5mg qhs on 11/13 Patient cannot ever be started on clozapine as per psychiatry. CONSTIPATION continue bowel regimen closely monitor, as pt has tendency for severe constipation (previous admission) abd. pain KUB was obtained 11/23 - shows moderate to large amount of stool - discussed with RN in detail-> gave enema, cont. bowel regimen. had BMs but persistent discomfort repeat KUB shows no abnormality continue current bowel regimen, nursing states pt is going DVT prophylaxis- sc lovenox Dispo: CM following, guardianship paperwork in place, medically stable for discharge to rehab once guardianship in place Admission and Anticipated Discharge Date Admission Date: September 25, 2023 Subjective Patient was seen and examined at bedside. She feels fine. No new issues. Awake, alert, eating breakfast. No fever, chills, N/V, CP, SOB. Review of Systems Review of Systems: All systems reviewed & are unremarkable except as noted in Subjective Physical Exam Physical Exam: General: Thin elderly female, sitting in chair, not in distress, on room air HEENT: EOMI, RADHA, MMM Chest: Clear breath sounds bilaterally, no wheezes or crackles CVS: Regular rate and rhythm, normal heart sounds, no murmur Abdomen: Soft, non tender, not distended, normal bowel sounds Neuro: Awake, alert, oriented, conversing appropriately Extremities: No cyanosis, clubbing or edema Results & Data Results & Data Vital Signs (Past 12 Hours) Vital Signs Temp Pulse Resp BP Pulse Ox O2 Del Method 12/04/23 07:58 36.4 C L 68 17 149/82 H 98 Room Air 12/04/23 07:20 Room Air
[2023-12-05 07:17] LABS: Hematocrit (blood only) 32.1 % (37.0-47.0); Hemoglobin 10.4 g/dl (12.0-16.0); Mean Corpuscular Hemoglobin 27.4 pg (25.0-34.0); Mean Corpuscular Hgb Conc 32.4 g/dL (32.0-36.0); Mean Corpuscular Volume 84.5 fL (80.0-100.0); Mean Platelet Volume 10.4 fL (9.4-12.4); Platelet Count 195 K/uL (130-400); RDW Coefficient of Variation 15.9 % (11.5-14.5); RDW Standard Deviation 49.1 fL (36.4-46.3); White Blood Count 4.21 K/ul (4.8-10.8)
[2023-12-05 07:38] LABS: BUN Creatinine Ratio 51.5 (10-20); Creatinine Clr Calc Pharmacy 62.7 ml/min; Est GFR (African American) 100.9 ml/min; Magnesium 1.9 mg/dl (1.7-2.4); Potassium 3.9 mmol/L (3.5-5.1)
--- NOTE | 2023-12-05 16:13 | Hospitalist Progress Note ---
Date of Service December 05, 2023 Assessment & Plan (1) Weakness: (2) Syncope: Plan: Pt is a 73 yo female with history of diabetes type 2, hypertension, dyslipidemia, hypothyroidism, brain tumor s/p resection, schizophrenia, migraine, anemia, recurrent UTIs who presented to the hospital after being discharged from [facility] on the day prior to admission. Patient noted to have hypotension, bradycardia for which antihypertensives were removed. She is currently awaiting guardianship hearing for placement. WEAKNESS, SYNCOPE LIKELY SECONDARY TO ORTHOSTATIC HYPOTENSION,POSSIBLE UNDERLYING SICK SINUS SYNDROME Patient was previously admitted to [facility] for pneumonia, respiratory failure s/p intubation, UTI, delirium, stercoral colitis from constipation (discharged 09/14/2023) And was observed to have bradycardia, metoprolol reduced in dose. While at [facility] rehab, patient noted to have borderline blood pressure and bradycardia. Amlodipine, lisinopril, metoprolol subsequently discontinued She was discharged from [facility] rehab the day prior to admission She presented with weakness and syncope in the setting of marginal blood pressure and sinus bradycardia in the 50s She had dry oral mucosa and low sodium indicating dehydration. CVA was ruled out Brain MRI - no acute CVA Cardiology was consulted- considering pacemaker placement. 09/26 - Received contact number from for Dimitris Peterson ([phone]) pt's nephew. He resides in [place]. He is willing to help with decision making. He was updated on her current and previous hospitalization. He understands cardiology is considering placing a pacemaker and is in agreement with the plan. 09/27 s/p PPM placement w/ EP Has remained stabled PM dressing changed by cardiology service PM function checked- appropriately functioning will need to f/u with [facility] on discharge Febrile neutropeniaresolved Likely due to Clozapine Patient started to spike fever on 10/13 and 10/14 Chest x-ray no acute finding Pacemaker incision site without sign of infection Blood culture07/05 from 10/14/2023 growing gram positive bacilli. Repeat blood cx negative Urinalysis not suggestive of infection Was put on empiric antibiotics(Vancomycin and meropenem) --> ID evaluated 10/18, reports no concern of infection. Will monitor off antibiotic per ID recommendation.---> Remains afebrile Psychiatry evaluated; agree with holding clozapine. Can restart Zyprexa at 2.5 mg at bedtime if patient has psychiatric symptoms. Pt with reported crying spells, started on scheduled zyprexa 2.5mg qhs overnight on 11/13 Patient cannot ever be started on clozapine as per psychiatry. DIABETES TYPE 2 last a1c 5.9 05/2023 she has not been requiring sliding scale insulin Accu-Cheks and insulin d/c'd HYPERTENSION Chronic, stable Continue lisinopril HYPOTHYROIDISM TSH 2.2 continue levothyroxine BRAIN TUMOR S/P RESECTION SCHIZOPHRENIA Psychiatry evaluated, discontinue clozapine given low ANC/neutropenia. Continue to monitor for emergence of any psychiatric symptoms. May require alternative antipsychotics. It is recommended to trial olazapine 2.5mg at HS if symptoms recur. Pt with reported crying spells, started on scheduled zyprexa 2.5mg qhs on 11/13 Patient cannot ever be started on clozapine as per psychiatry. CONSTIPATION continue bowel regimen closely monitor, as pt has tendency for severe constipation (previous admission) abd. pain KUB was obtained 11/23 - shows moderate to large amount of stool - discussed with RN in detail-> gave enema, cont. bowel regimen. had BMs but persistent discomfort repeat KUB shows no abnormality continue current bowel regimen, nursing states pt is going DVT prophylaxis- sc lovenox Dispo: CM following, guardianship paperwork in place, medically stable for discharge to rehab once guardianship in place Admission and Anticipated Discharge Date Admission Date: September 25, 2023 Subjective Patient seen and examined at bedside. Comfortable; not in distress. Denies fever, chills, chest pain, shortness of breath, abdominal pain or urinary symptoms. No significant overnight events Review of Systems Review of Systems: All systems reviewed & are unremarkable except as noted in Subjective Physical Exam Physical Exam: General- oriented x 2, not in distress, speaks in sentences with no effort or accessory muscle use Eyes- anicteric Neck- no JVD Lungs- clear breath sounds bilaterally Heart- normal rate, regular rhythm; no murmurs Pacemaker site: No bleeding or discharge Abdomen- normal bowel sounds, nondistended, soft, nontender Extremities- no pretibial edema, no calf tenderness Neuro- alert, oriented x 2; no new gross focal neurologic deficits Skin- warm & dry Results & Data Results & Data Vital Signs (Past 12 Hours) Vital Signs Temp Pulse Pulse Resp BP Pulse Ox O2 Del Method 12/05/23 14:04 36.8 C 62 16 111/65 99 Room Air 12/05/23 11:46 36.7 C 62 18 120/64 97 Room Air 12/05/23 08:10 Room Air 12/05/23 07:52 36.6 C 62 18 150/72 H 98 Room Air
--- NOTE | 2023-12-06 15:08 | Discharge Summary ---
Date of Service December 06, 2023 Admission HPI Per Admitting Provider 73-year-old female with history of diabetes type 2, hypertension, dyslipidemia, hypothyroidism, brain tumor s/p resection, schizophrenia, migraine, anemia, recurrent UTIs Presenting today after being discharged from [facility] yesterday for weakness and a syncopal episode while at the ER triage area. Patient was recently admitted to [facility] for acute respiratory failure secondary to pneumonia, UTI, delirium, constipation with stercoral colitis, bradycardia And was subsequently transferred to [facility] for physical rehabilitation. Records from [facility] obtained and reviewed. Stay was remarkable for note of hypotension and bradycardia for which her amlodipine, lisinopril, metoprolol has been discontinued. She was discharged back to home yesterday. As per patient, she lives with a roommate and has no family members around. She was brought back into the ER due to weakness. While sitting up at the triage area, patient complained of dizziness and was witnessed to have slumped over, placed on supine position and immediately regained consciousness. No witnessed seizure-like activity. Vital signs remarkable for borderline blood pressure, heart rate in the 50s. Labs sodium [address] head negative for acute CVA Chest x-ray no pneumonia On exam, patient sleeping but easily awakened, oriented x 1-2, answers most questions appropriately States she feels fine overall, just felt weak yesterday after returning home from [facility] rehab. She denies chest pain, shortness of breath, palpitations, headache, focal neurologic symptoms, including weakness or numbness. Admission Exam Per Admitting Provider General- oriented x 1-2, not in distress, speaks in sentences with no effort or accessory muscle use Head- atraumatic Eyes- PERRL, EOMI, anicteric ENT- oropharynx clear, dry oral mucosa Neck- supple, no JVD, no adenopathy, no thyromegaly; carotids +2/2, no bruits appreciated Lungs- clear to auscultation bilaterally, no rales/wheezes Heart- normal rate, regular rhythm; no murmur, no gallop, no rub appreciated Abdomen- normal bowel sounds, nondistended, soft, nontender, no masses or hepatosplenomegaly Extremities- no pretibial edema, no calf tenderness; peripheral pulses intact Neuro- alert, oriented x 1-2; CN 2-12 grossly intact; motor 5/5 bi laterally;sensation 100% on all extremities; no other gross focal neurologic deficits Skin- warm & dry Principal Diagnosis Sick sinus syndrome status post pacemaker placement Febrile neutropenia Discharge Exam General- oriented x 2, not in distress, speaks in sentences with no effort or accessory muscle use Eyes- anicteric Neck- no JVD Lungs- clear breath sounds bilaterally Heart- normal rate, regular rhythm; no murmurs Pacemaker site: No bleeding or discharge Abdomen- normal bowel sounds, nondistended, soft, nontender Extremities- no pretibial edema, no calf tenderness Neuro- alert, oriented x 2; no new gross focal neurologic deficits Skin- warm & dry Discharge Data Allergies Allergy/AdvReac Type Severity Reaction Status Date / Time Penicillins Allergy Intermediate Hives Verified 09/25/23 18:19 pollen extracts Allergy Intermediate seasonal Verified 09/25/23 18:19 allergy Cephalosporins AdvReac Intermediate Hallucinations/GI Verified 09/25/23 18:19 UPSET/ CONFUSION cyclobenzaprine AdvReac Intermediate neuro Verified 09/25/23 18:19 [From Flexeril] complications rizatriptan [From Maxalt] AdvReac Intermediate VERTIGO Verified 09/25/23 18:19 Consultations 09/25/23 16:59 ED Decision to Admit Stat 09/25/23 19:32 Consult Psychiatry Routine 09/26/23 07:57 Consult Cardiology Routine 10/16/23 09:08 Consult Infectious Diseases Routine 10/18/23 16:51 Consult Infectious Diseases Routine Procedures Performed Operation Date: 09/28/23 07:30 Actual Procedures p Pacer with A/V Leads (Dual) - Jeanette Pruitt DO s Bundle of his Recording - Jeanette Pruitt DO Ordered Studies 09/25/23 15:03 CT head/brain wo con Stat 09/25/23 18:02 MRI Brain [MR brain wo con] Stat 09/28/23 07:00 EP Lab Images for PACS ONCE 10/03/23 10:35 CT head/brain wo con Stat 11/04/23 20:27 CT Abd and Pelvis [CT abd pelvis IV con only] Stat Hospital Course (1) Weakness: (2) Syncope: Pt is a 73 yo female with history of diabetes type 2, hypertension, dyslipidemia, hypothyroidism, brain tumor s/p resection, schizophrenia, migraine, anemia, recurrent UTIs who presented to the hospital after being discharged from [facility] on the day prior to admission. Patient noted to have hypotension, bradycardia for which antihypertensives were removed. WEAKNESS, SYNCOPE LIKELY SECONDARY TO ORTHOSTATIC HYPOTENSION,POSSIBLE UNDERLYING SICK SINUS SYNDROME Patient was previously admitted to [facility] for pneumonia, respiratory failure s/p intubation, UTI, delirium, stercoral colitis from constipation (discharged 09/14/2023) And was observed to have bradycardia, metoprolol reduced in dose. While at [facility] rehab, patient noted to have borderline blood pressure and bradycardia. Amlodipine, lisinopril, metoprolol subsequently discontinued She was discharged from [facility] rehab the day prior to admission Brain MRI - no acute CVA Cardiology was consulted; Pacemaker was placed on 09/27 PM function checked- appropriately functioning Febrile neutropeniaresolved Likely due to Clozapine Patient started to spike fever on 10/13 and 10/14 Chest x-ray no acute finding Pacemaker incision site without sign of infection Blood culture07/05 from 10/14/2023 growing gram positive bacilli. Repeat blood cx negative Urinalysis not suggestive of infection Was put on empiric antibiotics(Vancomycin and meropenem) --> ID evaluated 10/18, reports no concern of infection. Will monitor off antibiotic per ID recommendation.---> Remains afebrile Psychiatry evaluated; agree with holding clozapine. Can restart Zyprexa at 2.5 mg at bedtime if patient has psychiatric symptoms. Pt with reported crying spells, started on scheduled zyprexa 2.5mg qhs overnight on 11/13 DIABETES TYPE 2 last a1c 5.9 05/2023 she has not been requiring sliding scale insulin Accu-Cheks and insulin d/c'd HYPOTHYROIDISM TSH 2.2 continue levothyroxine BRAIN TUMOR S/P RESECTION SCHIZOPHRENIA Psychiatry evaluated, discontinue clozapine given low ANC/neutropenia. Continue to monitor for emergence of any psychiatric symptoms. May require alternative antipsychotics. It is recommended to trial olazapine 2.5mg at HS if symptoms recur. Pt with reported crying spells, started on scheduled zyprexa 2.5mg qhs on 11/13 Patient cannot ever be started on clozapine as per psychiatry. CONSTIPATION continue bowel regimen closely monitor, as pt has tendency for severe constipation (previous admission) abd. pain KUB was obtained 11/23 - shows moderate to large amount of stool - discussed with RN in detail-> gave enema, cont. bowel regimen. had BMs but persistent discomfort repeat KUB shows no abnormality Patient had a prolonged hospitalization as patient required guardianship to be established prior to discharge. Patient had guardianship appointed on December 05, [address] Patient was then discharged on December 06, 2023 to rehab Please note the above document was generated using voice recognition software. It may contain grammatical, syntax or spelling errors. Any formal questions or concerns about the content, text or information contained within the body of this dictation should be directly addressed to the provider for clarification Total Time Total Time Spent Total Time Spent (In Minutes): 45 Total Time Includes: Examination of the Patient, Discharge Planning, Medication Reconciliation, Communication With Other Providers and Other Discharge Plan Discharge Items Patient Disposition: Home - Self-Care Reason For Visit: WEAKNESS, SYNCOPAL EPISODE Discharge Diagnosis: Syncope secondary to sick sinus syndrome s/p pacemaker placement Febrile neutropenia Activity: As commented below Non-emergency contact: Private Duty Nurse Call non-emergency contact if: you have any medication questions Follow-up/Referrals: Raymond Vann DO [Primary Care Provider] - Diet: Regular Diet Texture: Easy to Chew Addtl Attending Provider Instructions: You were admitted to the hospital due to weakness and syncopal episode. You underwent pacemaker placement on September 28, 2023. Your blood pressure during hospitalization was within normal limits. The blood pressure medication I stopped. Clozapine is also stopped due to febrile neutropenia. You can never be on clozapine in the future. You have been started on Zyprexa 2.5 mg at night. Due to your history of severe constipation in the past, you have been prescribed multiple laxative. Please stop taking the laxatives if you start experiencing diarrhea. Follow-up with your primary care doctor next week Pending Studies at Discharge: No Stand-Alone Forms: My Heidi Shaulis, Smoking Cessation Medications and DC Order Prescriptions: New olanzapine 5 mg Tablet,Disintegrating 2.5 mg PO HS Qty: 30 0RF cholecalciferol (vitamin D3) [Vitamin D3] 50 mcg (2,000 unit) capsule 2,000 unit PO DAILY 60 Days Qty: 60 0RF acetaminophen [Tylenol] 325 mg capsule 650 mg PO Q8H PRN (Reason: fever or pain) Qty: 60 0RF Continued diclofenac sodium 1 % Gel 2 g TOPICAL TID PRN (Reason: Pain) Rx Instructions: APPLY TO BACK OF NECK Vitron-C 65 mg iron- 125 mg Tablet,Delayed Release (Dr/Ec) 1 tab PO DAILY atorvastatin 20 mg Tablet 20 mg PO HS Qty: 30 0RF sumatriptan succinate 100 mg Tablet 100 mg PO DAILY PRN (Reason: Headache) Qty: 30 0RF cyanocobalamin (vitamin B-12) [Vitamin B-12] 1,000 mcg Tablet 1,000 mcg PO DAILY Qty: 60 0RF omeprazole 40 mg capsule,delayed release(DR/EC) 40 mg PO HS Qty: 30 0RF levothyroxine [Synthroid] 50 mcg tablet 50 mcg PO DAILYBB Qty: 30 0RF docusate sodium 100 mg Capsule 100 mg PO BID Qty: 60 0RF aspirin [Aspirin Childrens] 81 mg Tablet,Chewable 81 mg PO DAILY Qty: 30 0RF fluticasone propionate [Flonase Allergy Relief] 50 mcg/actuation [place],Suspension 2 spray INTRANASAL DAILY Qty: 100 0RF Metamucil 3.4 gram/5.4 gram Powder 1 tbsp PO TID Qty: 60 0RF Rx Instructions: mix into at least 8 oz of water or juice before administering riboflavin (vitamin B2) 400 mg tablet 400 mg PO QAM Qty: 60 0RF magnesium oxide 400 mg magnesium Tablet 400 mg PO QAM Qty: 30 0RF Changed polyethylene glycol 3350 [Miralax] 17 gram/dose Powder 17 g PO DAILY Qty: 0 0RF Discontinued loratadine [Claritin] 10 mg Tablet 10 mg PO HS PRN (Reason: Allergy Symptoms) metformin 500 mg tablet 500 mg PO QAM Rx Instructions: take with breakfast cholecalciferol (vitamin D3) 1,250 mcg (50,000 unit) capsule 1,250 mcg PO WK lisinopril 20 mg tablet 20 mg PO QAM amlodipine 5 mg Tablet 5 mg PO DAILY acetaminophen 500 mg/15 mL Liquid 100 mg PO Q4H PRN (Reason: PAIN/FEVER) methenamine hippurate 1 gram tablet 1 g PO AMHS metoprolol succinate 50 mg tablet extended release 24 hr 50 mg PO DAILY magnesium hydroxide 400 mg/5 mL Suspension 400 mg PO DAILY PRN (Reason: Constipation) gabapentin 100 mg capsule See Rx Instructions .ROUTE .COMPLEX Rx Instructions: TAKES 200 MG QAM & QHS, THEN 100 MG AT 1400 duloxetine 60 mg Capsule, Delayed Rel Sprinkle 60 mg PO DAILY clozapine 100 mg tablet 100 mg PO HS Rx Instructions: EXT MED HX Discharge Orders: Discharge Order (Routine); Ordered 12/06/23 Ordered By: Ethan Granados Admission Data Admit Date/Time: 09/25/23 18:02 Attending Provider: Ethan Granados Admit Provider: Stephane Marks Primary Care Provider: Raymond Vann Other Providers: Stephane Marks; [facility]; Rebekah Novak; Shanelle Barone; Lovely Tsang; Rui Brwon; Jayson Elmore Jr; Jo-Ann Gutierrez; Donna Rizzo; Jules Solitario; Manuel Damico; Clay Young I.; Raymond Nance II; Rebecca Ortiz; Riley Deleon; Gustavo Valerio; Kael Marcus; Roque Hernandez; German Read; IRB Approved Study,Mumtaz; Shannon Khan Other Interventions: Discharge Summary Assessment (RN) Last Done: 12/06/23 11:48
--- NOTE | 2023-12-24 10:46 | Operative Report ---
Post Operative Report DICTATED BY:Jeanette Pruitt D.O. DATE OF PROCEDURE: 09/27/2022 PREOPERATIVE DIAGNOSES: syncope and irreversible symptomatic sinus bradycardia POSTOPERATIVE DIAGNOSIS: Same PROCEDURE: A dual-chamber rate responsive permanent pacemaker and intracardiac electrogram His bundle recordings, along with a peripheral venogram under fluoroscopic guidance. SURGEON: Jeanette Pruitt DO ASSISTANTS: None. ANESTHESIA: Monitored conscious sedation administered under my supervision by Efren Kruger. Start time 07:55, end time 08:55, a total of 4 mg of Versed and 100 mcg of fentanyl. INTRAVENOUS FLUIDS: 100 mL. CONTRAST: 15 mL. ANTIBIOTICS: 900mg clindamycin ADDITIONAL MEDICATIONS: 25mg benadryl BLOOD LOSS: 50 mL. URINE OUTPUT: Not applicable. SPECIMENS: None. FINDINGS: See below. DRAINS: None. COMPLICATIONS: None. CONDITION: Stable. INDICATIONS: This is a 73-year-old female who has a past medical history recent prolonged hospitalization for a bowel perforation, Schizophrenia, h/o Aspiration pneumonia, HTN, HLD, DM, Neuropathy, Hypothyroiidsm. She was admitted due to syncope thought to be due to sinus bradycardia. A ppm was recommended prior to hospital discharge. CONSENT: Consent was obtained prior to the patient going into the electrophysiology lab. The patient's POA was informed of the risks, benefits, and alternatives to the procedure. Risks include, but not limited to, sudden cardiac , cardiac arrhythmias, cerebrovascular accident, myocardial infarction, injury to his blood vessels, chamber of the heart and lung, bleeding and infection over the phone. The patient's POA understood these risks and agreed to the procedure as planned. Informed consent was obtained over the phone with a nurse as the witness. DESCRIPTION OF PROCEDURE: The patient was brought into electrophysiology lab in a fasting state. He was connected to continuous cardiac monitoring. A timeout was performed to ensure the patient's identity and procedure correctly. He was prepped and draped in the left infraclavicular space in normal surgical standard fashion. Monitored conscious sedation was given throughout the procedure for the patient's comfort level. [place] precautions were maintained throughout the procedure. Prophylactic antibiotics were given prior to incision. A 20 mL of 1% lidocaine and bupivacaine mixture were given in the left deltopectoral groove. An incision was made in the left deltopectoral groove. Blunt dissection was performed down to the pectoralis muscle. Then, using blunt dissection over the pectoralis muscle within the pectoral fascia, a pacemaker pocket was created. Then, a peripheral venogram was performed to identify the axillary vein. Venous axillary access was obtained through a needlestick without any problems. A guidewire was inserted without any resistance. A 6-Nicolas nch sheath was inserted over the guidewire without any resistance. Dilator was removed and a second guidewire was inserted through the sheath to allow for retained venous access. Then a 9 [place] sheath was inserted over one of the guidewires. The guidewire and dilator were removed. Then, the [employer] Inspector 3D medium sheath was inserted through the 9-Kazakh sheath over a Glidewire into the right ventricle. The Glidewire and dilator were removed. Then, the left bundle lead was advanced through the sheath and intracardiac electrogram His bundle recordings were performed when the camera was in PARRY 10. Once I found where the His bundle is, see below for results, I then moved the camera to PARRY 30 and marked where the His bundle was on my fluoroscopy screen. I came down about 2 cm from this in a line that would extend out to the apex and then started coming on pacing. Once I found an area where I had a nice W formed pace complex in my lead V1, I then moved the camera to CYMRO 30. Then the helix was extended into the septum. Then the helix locking tool was placed. Then the lead was screwed further into the septum while pacing by giving slow clockwise turns. The paced complex changed to a nice R' in V1 and the pacing stim to peak QRS in V6 was good. I then gave contrast through the sheath to see how far the lead was into the septum and then I slit the C[employer]pping Inspector 3D medium sheath under fluoroscopic guidance and left the 9-Kazakh sheath in while I positioned the right atrial lead. A 6-Kazakh sheath was inserted over the retained guidewire, the guidewire and dilator removed. The right atrial lead was then advanced into right atrium and positioned into right atrial appendage under fluoroscopic guidance. There was adequate pacing and sensing thresholds and no diaphragmatic stimulation with high output pacing. The 6-Kazakh sheath was peeled away and the lead was fixated to the pectoralis muscle using 0 silk suture. The 9-Kazakh sheath around the left bundle lead was peeled away and the lead was fixated to pectoralis muscle using 0 silk suture. The pocket was flushed with copious amounts of vancomycin and saline wash and inspected for hemostasis. The leads were then attached to the pulse generator making sure the pins were in appropriate position, passed set screws, and set screws were all tightened. Pulse generator was then placed in the antibiotic pouch followed then by being placed in the pocket, making sure the leads were lying flat beneath the device. The incision was closed in a 3-layer fashion using 2-0 Vicryl interrupted suture, followed by 3-0 Vicryl interrupted suture, followed by 4-0 Monocryl running stitch. Then a primaseal dressing was placed EQUIPMENT: 1. Pulse generator is a [employer] MRI Model Number [id number] SN: [id number]. 2. Right atrial lead, Myandb SJM Tendril STS 8TC SN: [id number] 3. Left bundle lead, Demarco SJM Tendril STS 8TC SN: [id number] INTRAPROCEDURAL FINDINGS: 1. Intracardiac electrogram His bundle recordings, AH is 135 milliseconds, HV is 58 milliseconds. 2. Right atrial lead, P waves 3 millivolts, impedance 450 ohms, threshold 1 volts at 0.4 milliseconds. 3. Left bundle lead, R waves 11 millivolts, impedance 540 ohms, threshold 0.75 volts at 0.4 milliseconds. FINAL MEASUREMENTS THROUGH THE DEVICE: 1. Right atrial lead, P waves 2.3millivolts, impedance 410 ohms, threshold 1 volt at 0.4 milliseconds. 2. Left bundle lead, R waves 10.4 millivolts, impedance 490 ohms, threshold 0.75 volts at 0.4 milliseconds. FINAL PARAMETERS: DDD 60/120, right atrial amplitude 3.5 volts, pulse width 0.4 milliseconds, sensitivity 0.5 millivolts. Left bundle lead amplitude 3.5 volts, pulse width 0.4 milliseconds, sensitivity 2 millivolts. IMPRESSION: Successful dual chamber rate responsive permanent pacemaker under fluoroscopic guidance along with peripheral venogram and intracardiac electrogram His bundle recordings, all under fluoroscopic guidance secondary to syncope and irreversible symptomatic sinus bradycardia PLAN: Monitor the patient post-procedure. A 12-lead ECG, chest x-ray. She is not to lift the left elbow or left shoulder for 1 month. She cannot lift more than 10 pounds with the left arm for 2 weeks. She is to keep the dressing on and dry until his wound check next week.
== END 2023-12-06 12:46 | disposition home or self-care (01) | DRG 243 ==
LOC: ED 13:49 → 2S 18:02 → SUATTDRO 18:02 → 2S 20:15 → 3N 09-30 17:53 → 2S 09-30 18:40 → 2N 10-01 22:02 → 3N 10-06 12:36